=== PATIENT | male | born 1935 | race Caucasian/White ===

== ENCOUNTER → 2018-09-25 10:00 | Outpatient (CLI) | payer MEDICARE, SELFPAY ==
[2018-09-25 12:12] LABS: Absolute Lymphocyte Count 1.12 X10^3/ul (0.83-4.51); Absolute Neutrophil Count 2.9 X10^3/uL (2.0-7.7); Basophil# 0.03 X10^3/uL; Basophil% 0.6 % (0-1); Eosinophil# 0.24 X10^3/uL; Eosinophils% 4.9 % (0-5); Hematocrit 43.2 % (40-54); Hemoglobin 13.3 g/dl (13.0-16.5); Lymphocyte # 1.12 X10^3/ul (4.0); Lymphocyte % 22.7 % (19-41); Mean Corp Hgb Conc 30.8 g/gl (32-36); Mean Corpuscular Hgb 28.4 pg (27.0-32.0); Mean Corpuscular Volume 92.3 fL (80-94); Mean Platelet Vol. 10.3 fl (6.2-12.0); Monocyte# 0.65 X10^3/uL; Monocyte% 13.2 % (0-10); Neutrophil # 2.87 X10^3/uL (2.7-7.7); Neutrophil % 58.2 % (47-70); Platelet Count 171 K/mm3 (150-450); RBC Distribution Width SD 46.5 fl (35.1-43.9); Red Blood Count 4.68 M/mm3 (4.6-6.2); White Blood Count 4.9 K/mm3 (4.4-11.0)
[2018-09-25 12:18] LABS: ALB/GLOB Ratio 1.1 RATIO (0.9-2.4); AST(SGOT) 29 U/L (15-37); Alanine Aminotransfer ALT/SGPT 38 U/L (16-61); Albumin, Serum 3.9 g/dL (3.2-5.0); Alkaline Phosphatase 53 U/L (45-117); Anion Gap 7 (5-15); BUN 28 mg/dL (7-18); BUN/Creat Ratio 21.1 RATIO (10-20); Calcium,Total 9.4 mg/dL (8.5-10.1); Chloride 106 mmol/L (98-107); Creatinine, Serum 1.33 mg/dL (0.70-1.30); EST Glomerular Filtration Rate 55 mL/min (>60); Est Glom Filt Rate - Afr Amer 66 mL/min (>60); Globulin 3.5 g/dL (2.2-4.2); Glucose 95 mg/dL (74-106); Potassium 4.7 mmol/L (3.5-5.1); Protein, Total 7.4 g/dL (6.4-8.2); Sodium Level 142 mmol/L (136-145)
[2018-09-25 12:27] LABS: POSITIVE COUNT NO; POSITIVE DIFFERENTIAL NO; POSITIVE MORPHOLOGY NO
--- OUTSIDE RECORDS SUMMARY | 2018-11-27 20:02 | XMS RPT_ITS ---
:1935 Author Organization OHIP Support Name Relationship Address Phone TITI DUPREEE Unavailable [address] + [place] [address] SELF Unavailable Unavailable Unavailable JOONHEYDI Unavailable [address] + [place] [address] JOONHEYDI Unavailable [address] + [address]HEY[address] Unavailable [address] + [place] [address] HEYDI DUPREE Unavailable [address] + [place], [place] [id number] [place] [address]PAULOHEYDI Unavailable [address] + [place] [address] JOONLYUDMILAHEYDI Unavailable [address] + [place] [address] JOONLYUDMILAHEYDI Unavailable [address] + [place] [address] LYUDMILA DUPREERIE Unavailable [address] + [place] [address] JOONYLUDMILAHEYDI Unavailable [address] + [place] [address] JOONLYUDMILAHEYDI Unavailable [address] + [place] [address] JOONLYUDMILA BLEDSOERIE Unavailable [address] + [place] [id number] JOONLYUDMILAHEYDI Unavailable [address] + [place] [address] JOONLYUDMILAHEYDI Unavailable [address] + [address], HEYDI Unavailable [address] + [place] [address] [facility], HEYDI Unavailable [address] + [place] [address] [facility], HEYDI Unavailable [address] + [place] [address] [facility], HEYDI Unavailable [address] + [place], [place] [id number] [place] [address], HEYDI Unavailable [address] + [place], [place] [phone] [place] [address], HEYDI Unavailable [address] + [place], [place] [id number] [place] [address], HEYDI Unavailable [address] + [place], [place] [phone] [place] [address] HEYDI Unavailable [address] + [place], [place] [phone] [place] [address], HEYDI Unavailable [address] + [place], [place] [phone] [place] [address], HEYDI Unavailable [address] + [place], [place] [phone] [place] [address], HEYDI Unavailable [address] + [place] [address] [facility] HEYDI Unavailable [address] + [place], [place] [id number] [place] [address], HEYDI Unavailable [address] + [place], [place] [id number] [place] [address], HEYDI Unavailable [address] + [place], [place] [id number] [place] [address], HEYDI Unavailable [address] + [place], [place] [phone] [place] [address], HEYDI Unavailable [address] + [place], [place] [phone] [place] [address], HEYDI Unavailable [address] + [place] [address] HEYDI DUPREE Unavailable [address] + [place] [address] HEYDI DUPREE Unavailable [address] + [place] [address] Care Team Providers Name Role Phone DAVONTE DELANEY, DR. IRVING Attending Unavailable LONNIE KAUR, DR. PEREZ Primary Care Unavailable LONNIE KAUR, DR. PEREZ Attending Unavailable LONNIE KAUR, DR. PEREZ Primary Care Unavailable MONTANA DELANEY, DR. MK Aguilar Attending Unavailable LONNIE KAUR, DR. PEREZ Primary Care Unavailable LONNIE KAUR, DR. PEREZ Primary Care Unavailable JOHANNA DELANEY, . PALLAVI Aguilar Consulting Unavailable JOHANNA DELANEY, . PALLAVI Aguilar Admitting Unavailable JOHANNA DELANEY, MD. PALLAVI Aguilar Attending Unavailable DAVONTE DELANEY, DR. IRVING Attending Unavailable LONNIE KAUR, DR. PEREZ Primary Care Unavailable LONNIE KAUR, DR. PEREZ Attending Unavailable LONNIE KAUR, DR. PEREZ Primary Care Unavailable MARIYA ALVAREZ MD Attending Unavailable LONNIE KAUR, DR. PEREZ Primary Care Unavailable ERIC MOORE DO Attending Unavailable LONNIE KAUR, DR. PEREZ Primary Care Unavailable LONNIE KAUR, DR. PEREZ Attending Unavailable LONNIE KAUR, DR. PEREZ Primary Care Unavailable MARIYA ALVAREZ MD Attending Unavailable LONNIE KAUR, DR. PEREZ Primary Care Unavailable LONNIE KAUR, DR. PEREZ Attending Unavailable LONNIE KAUR, DR. PEREZ Primary Care Unavailable LONNIE KAUR, DR. PEREZ Attending Unavailable LONNIE KAUR, DR. PEREZ Primary Care Unavailable TONI BRUCE MD Attending Unavailable LONNIE KAUR, DR. PEREZ Primary Care Unavailable DAVONTE DELANEY, DR. IRVING Attending Unavailable LONNIE KAUR, DR. PEREZ Primary Care Unavailable CHARMAINE LO CNP Attending Unavailable LONNIE KAUR, DR. PEREZ Primary Care Unavailable CHARMAINE LO CNP Attending Unavailable LONNIE KAUR, DR. PEREZ Primary Care Unavailable Isabella Justice Attending Unavailable Isabella Justice Referring Unavailable Jaki Lin Primary Care Unavailable PROBLEMS PROBLEMS No Problem Records FoundPROCEDURES PROCEDURES No Procedure Records FoundRESULTS RESULTS COMPREHENSIVE METABOLIC Collected: 09/25/2018 Status: F Source: [facility] 10:08 AM REPOSITORY TYPE CODE TESTS RESULT OUT OF RANGE REFERENCE UNITS LAB L501.0100 74-106 mg/dL Normal GLU 95 Result Comment: Please note revised GLUCOSE reference range effective 2017. LAB L501.1000 7-18 mg/dL High BUN 28 LAB L501.1100 0.70-1.30 mg/dL High CREAT,SERUM 1.33 Result Comment: The validity of the calculated GFR AND GFRAA in patients over 70 years has not been determined. Clinical correlation is essential. LAB L501.1110 >60 mL/min Low EST GFR 55 Result Comment: Non- GFR Calc LAB L501.1115 >60 mL/min Normal EST GFR - AA 66 Result Comment: GFR Calc LAB L501.1300 10-20 RATIO High BUN/CRE 21.1 LAB L501.1500 6.4-8.2 g/dL T Normal PROT 7.4 LAB L501.1800 3.2-5.0 g/dL Normal ALB 3.9 LAB L501.1950 2.2-4.2 g/dL Normal GLOB 3.5 LAB L501.2000 0.9-2.4 RATIO Normal A/G 1.1 LAB L501.2200 8.5-10.1 mg/dL CA Normal 9.4 LAB L501.4100 15-37 U/L Normal AST 29 LAB L501.4305 45-117 U/L Normal ALK P 53 LAB L501.4405 16-61 U/L Normal ALT 38 LAB L501.4600 0.20-1.00 mg/dL T Normal BILI 0.30 LAB L501.5300 136-145 mmol/L NA Normal 142 LAB L501.5600 3.5-5.1 mmol/L K Normal 4.7 LAB L501.5900 98-107 mmol/L CL Normal 106 LAB L501.6100 21.0-32.0 mmol/L Normal CO2 29.0 LAB L501.6200 5-15 Normal GAP 7 Performed By: #### L500.4050 #### [facility] [address] [place], [address] CBC W/DIFF, AUTOMATED Collected: 09/25/2018 Status: F Source: [facility] 10:08 AM REPOSITORY TYPE CODE TESTS RESULT OUT OF RANGE REFERENCE UNITS LAB L100.1000 4.4-11.0 K/mm3 Normal WBC 4.9 LAB L100.1200 4.6-6.2 M/mm3 Normal RBC 4.68 LAB L100.1300 13.0-16.5 g/dl Normal HGB 13.3 LAB L100.1400 40-54 % Normal HCT 43.2 LAB L100.1500 80-94 fL Normal MCV 92.3 LAB L100.1600 27.0-32.0 pg Normal MCH 28.4 LAB L100.1700 32-36 g/gl Low MCHC 30.8 LAB L100.1810 11.6-14.6 % Normal RDW CV 14.0 LAB L100.1820 35.1-43.9 fl High RDW SD 46.5 LAB L100.1900 150-450 K/mm3 Normal PLT 171 LAB L100.2000 6.2-12.0 fl Normal MPV 10.3 LAB L100.2100 47-70 % Normal NEUT% 58.2 LAB L100.2200 19-41 % Normal LY% 22.7 LAB L100.2300 0-10 % High MONO% 13.2 LAB L100.2400 0-5 % Normal EO% 4.9 LAB L100.2500 0-1 % Normal BASO% 0.6 LAB L100.2550 0.0-0.9 % Normal IM GRAN % 0.400 Result Comment: IG% - Immature Granulocytes (promyelocytes, myelocytes and metamyelocytes) > 1% indicates that a LEFT SHIFT is Present. LAB L100.2620 2.0-7.7 X10 3/uL Normal Absolute Neut 2.9 LAB L100.2720 0.83-4.51 X10 3/ul Normal Absolute Lymph 1.12 Performed By: #### L100.0100 #### [facility] [address] [place] [address], [address] NM MYOCARDIAL SPECT Observed: 08/22/2018 Status: F Source: [facility] STRESS/REST 8:00 AM [facility] REPOSITORY ORIGINAL NM MYOCARDIAL SPECT STRESS/REST CLINICAL STATEMENT: S/P CABG TECHNIQUE: Lexiscan dose:0.4 mg Radiopharmaceutical (stress): Tc-99m Sestamibi Dose:10.6 mCi Radiopharmaceutical (rest): Tc-99m Sestamibi Dose:32.9 mCi SPECT acquisition and processing Reconstruction and reorientation of SPECT images into short axis, vertical and horizontal long axis planes Quantitative LVEF assessment COMPARISON:12/04/2015 REPORT:LEFT ventricle appears normal in size on both stress and rest images. On the stress images there is reduced radiotracer uptake involving the basal to mid inferior and inferolateral region similar to resting images with normal wall motion, suggestive of diaphragmatic atten uation artifact. Rest of the myocardium has homogenous radiotracer uptake throughout on both stress and rest images. Gated SPECT imaging reveal abnormal septal motion, consistent with prior cardiac surgery. Normal LEFT ventricle systolic function, calculated LVEF 59%. LEFT ventricle end-diastolic volume 112 mL. Tid ratio 1.03. IMPRESSION: 1. No evidence of inducible ischemia or prior myocardial infarction. 2. Abnormal septal motion with normal LEFT ventricle systolic function, LVEF 59%. 3. Inferior diaphragmatic attenuation artifact noted. 4. As compared to the last study report of 12/04/2015, no significant changes were noted. Interpreted By: Travis Mata Preliminary Report By: Travis Mata Electronically Signed By: Travis Mata Dictated Date: 08/22/2018 1:44:09 PM Prelim Date: 08/22/2018 1:44:09 PM Sign Date: 08/22/2018 1:46:38 PM CMP Collected: 08/04/2018 Status: F Source: [facility] 12:41 PM [facility] REPOSITORY TYPE CODE TESTS RESULT OUT OF REFERENCE UNITS RANGE LAB GLU(LOINC) 83-110 mg/dL Low Glucose Level 68 LAB NA(LOINC) 136-145 mmol/L Sodium Level 140 LAB K(LOINC) 3.5-5.1 mmol/L Potassium Level 4.4 LAB CL(LOINC) 98-107 mmol/L Chloride 105 LAB CO2(LOINC) 23-31 mmol/L CO2 31 LAB EBAL(LOINC mEq/L ) Electrolyte Balance 4.0 LAB BUN(LOINC) 7-18 mg/dL BUN High 26 LAB CRE(LOINC) 0.70-1.30 mg/dL Creatinine Lvl (s) 1.28 LAB BC(LOINC) 7-27 ratio BUN/Creatinine 20 Ratio LAB CA(LOINC) 8.4-10.2 mg/dL Calcium Lvl 8.9 LAB PROT(LOINC 6.4-8.2 G/dL ) Total Protein 7.1 LAB ALB(LOINC) 3.4-4.8 G/dL Albumin Level 3.9 LAB GLB(LOINC) G/dL Globulin 3.2 LAB AG(LOINC) 1.1-2.5 ratio A/G Ratio 1.2 LAB BILT(LOINC 0.2-1.0 mg/dL ) Bili Total 0.2 LAB AP(LOINC) 40-135 U/L Alk Phos 49 LAB AST(LOINC) 10-40 U/L AST/SGOT 29 LAB ALT(LOINC) 10-35 U/L ALT/SGPT 33 Performed By: #### CMP, GFR #### [address] [address] #### CBC, ADIFF, ANEU #### [address] [address] .GFR Collected: 08/04/2018 Status: F Source: [facility] 12:41 PM [facility] REPOSITORY TYPE CODE TESTS RESULT OUT OF REFERENCE UNITS RANGE LAB GFRAA(LOINC ml/min/1.73 ) sqm GFR 65 [place] Result Comment: GFR Population mean for , Non- Americans Ages 20-29 = 116 mL/min/1.73 sq.m. Ages 30-39 = 107 mL/min/1.73 sq.m. Ages 40-49 = 99 mL/min/1.73 sq.m. Ages 50-59 = 93 mL/min/1.73 sq.m. Ages 60-69 = 85 mL/min/1.73 sq.m. Ages 70+ = 75 mL/min/1.73 sq.m. Chronic Kidney Disease: Less than 60 mL/min/1.73 square meters End Stage Renal Disease: Less than 15 mL/min/1.73 square meters LAB GFRNO(LOINC) ml/min/1.73sqm GFR Non- 54 Result Comment: GFR Population mean for , Non- Americans Ages 20-29 = 116 mL/min/1.73 sq.m. Ages 30-39 = 107 mL/min/1.73 sq.m. Ages 40-49 = 99 mL/min/1.73 sq.m. Ages 50-59 = 93 mL/min/1.73 sq.m. Ages 60-69 = 85 mL/min/1.73 sq.m. Ages 70+ = 75 mL/min/1.73 sq.m. Chronic Kidney Disease: Less than 60 mL/min/1.73 square meters End Stage Renal Disease: Less than 15 mL/min/1.73 square meters Performed By: #### CMP, GFR #### [place] [id number] #### CBC, ADIFF, ANEU #### [address] [address] CBC Collected: 08/04/2018 Status: F Source: [facility] 12:41 PM [facility] REPOSITORY TYPE CODE TESTS RESULT OUT OF REFERENCE UNITS RANGE LAB WBC(LOINC) 4.60-10.80 10 3/mcL WBC 5.20 LAB RBCCT(LOINC 4.04-6.13 10 6/mcL ) RBC 4.68 LAB HGB(LOINC) 14.0-18.0 G/dL Low Hgb 13.8 LAB HCT(LOINC) 42.0-52.0 % Low Hct 41.8 LAB MCV(LOINC) 80.0-94.0 fL MCV 89.2 LAB MCH(LOINC) 27.0-31.2 pg MCH 29.5 LAB MCHC(LOINC) 31.8-35.4 G/dL MCHC 33.1 LAB RDW(LOINC) 11.5-14.5 % RDW 14.2 LAB PLT(LOINC) 130-400 10 3/mcL Platelet 178 LAB MPV(LOINC) 7.4-10.4 fL MPV 8.2 Performed By: #### CMP, GFR #### [place] [address] #### CBC, ADIFF, ANEU #### [address] [address] .AUTO DIFF Collected: 08/04/2018 Status: F Source: [facility] 12:41 [facility] [place] REPOSITORY TYPE CODE TESTS RESULT OUT OF REFERENCE UNITS RANGE LAB MLILY(LOINC) 37.0-80.0 % Neutrophil % 59.6 LAB LYM(LOINC) 10.0-50.0 % Lymphocyte % 21.5 LAB MON(LOINC) 1.7-13.0 % Monocyte % 11.8 LAB EO(LOINC) 0.0-7.0 % Eosinophil % 5.9 LAB BAS(LOINC) 0.0-2.5 % Basophil % 1.2 LAB ABLYM(LOIN 0.77-3.85 10 3/mcL C) Lymphocyte, 1.10 Absolute LAB RAINE(LOINC 0.15-1.00 10 3/mcL ) Monocyte, 0.60 Absolute LAB AEOS(LOINC 0.00-0.40 10 3/mcL ) Eosinophil, 0.30 Absolute LAB ABAS(LOINC 0.00-0.19 10 3/mcL ) Basophil, 0.10 Absolute Performed By: #### CMP, GFR #### [place] [address] #### CBC, ADIFF, ANEU #### [address] [address] .NEUABS Collected: 08/04/2018 Status: F Source: [facility] 12:41 PM [facility] REPOSITORY TYPE CODE TESTS RESULT OUT OF REFERENCE UNITS RANGE LAB ANEU(LOINC) 2.85-6.16 10 3/mcL Neutrophil, 3.10 Absolute Performed By: #### CMP, GFR #### [place] [address] #### CBC, ADIFF, ANEU #### [address] [address] CBC Collected: 07/20/2018 Status: F Source: [facility] 1:15 PM [facility] REPOSITORY TYPE CODE TESTS RESULT OUT OF REFERENCE UNITS RANGE LAB WBC(LOINC) 4.60-10.80 10 3/mcL WBC 5.20 LAB RBCCT(LOINC 4.04-6.13 10 6/mcL ) RBC 4.77 LAB HGB(LOINC) 14.0-18.0 G/dL Low Hgb 13.7 LAB HCT(LOINC) 42.0-52.0 % Hct 42.6 LAB MCV(LOINC) 80.0-94.0 fL MCV 89.3 LAB MCH(LOINC) 27.0-31.2 pg MCH 28.8 LAB MCHC(LOINC) 31.8-35.4 G/dL MCHC 32.2 LAB RDW(LOINC) 11.5-14.5 % RDW 14.5 LAB PLT(LOINC) 130-400 10 3/mcL Platelet 147 LAB MPV(LOINC) 7.4-10.4 fL MPV 8.3 Performed By: #### CBC, ADIFF, ANEU #### [address] [address] #### FE, LD, LIPID, CMP, IBC, GFR, A1C, B12, FERR, FOL #### [address] [address] .AUTO DIFF Collected: 07/20/2018 Status: F Source: [facility] 1:15 PM [facility] REPOSITORY TYPE CODE TESTS RESULT OUT OF REFERENCE UNITS RANGE LAB MILLY(LOINC) 37.0-80.0 % Neutrophil % 61.1 LAB LYM(LOINC) 10.0-50.0 % Lymphocyte % 20.1 LAB MON(LOINC) 1.7-13.0 % Monocyte % 12.2 LAB EO(LOINC) 0.0-7.0 % Eosinophil % 5.7 LAB BAS(LOINC) 0.0-2.5 % Basophil % 0.9 LAB ABLYM(LOIN 0.77-3.85 10 3/mcL C) Lymphocyte, 1.00 Absolute LAB RAINE(LOINC 0.15-1.00 10 3/mcL ) Monocyte, 0.60 Absolute LAB AEOS(LOINC 0.00-0.40 10 3/mcL ) Eosinophil, 0.30 Absolute LAB ABAS(LOINC 0.00-0.19 10 3/mcL ) Basophil, 0.00 Absolute Performed By: #### CBC, ADIFF, ANEU #### [address] [address] #### FE, LD, LIPID, CMP, IBC, GFR, A1C, B12, FERR, FOL #### [address] [address] .NEUABS Collected: 07/20/2018 Status: F Source: [facility] 1:15 PM [facility] REPOSITORY TYPE CODE TESTS RESULT OUT OF REFERENCE UNITS RANGE LAB ANEU(LOINC) 2.85-6.16 10 3/mcL Neutrophil, 3.20 Absolute Performed By: #### CBC, ADIFF, ANEU #### [address] [address] #### FE, LD, LIPID, CMP, IBC, GFR, A1C, B12, FERR, FOL #### [address] [address] FE Collected: 07/20/2018 Status: F Source: [facility] 1:15 PM [facility] REPOSITORY TYPE CODE TESTS RESULT OUT OF RANGE REFERENCE UNITS LAB FE(LOINC) 65-175 mcg/dL Iron 74 Performed By: #### CBC, ADIFF, ANEU #### [address] [address] #### FE, LD, LIPID, CMP, IBC, GFR, A1C, B12, FERR, FOL #### [address] [address] LDH Collected: 07/20/2018 Status: F Source: [facility] 1:15 PM [facility] REPOSITORY TYPE CODE TESTS RESULT OUT OF RANGE REFERENCE UNITS LAB LD(LOINC) 85-227 U/L LDH 225 Performed By: #### CBC, ADIFF, ANEU #### [address] [address] #### FE, LD, LIPID, CMP, IBC, GFR, A1C, B12, FERR, FOL #### [address] [address] LIPID Collected: 07/20/2018 Status: F Source: [facility] 1:15 PM [facility] REPOSITORY TYPE CODE TESTS RESULT OUT OF REFERENCE UNITS RANGE LAB CHOL(LOINC 0-200 mg/dL ) Cholesterol High 222 Result Comment: Cholesterol Reference Interval: Less than 200 Desirable 200-239 Borderline high risk 240 and above High risk LAB TRIG(LOINC) 0-150 mg/dL Triglycerides 134 Result Comment: Triglyceride Reference Interval: Less than 150 Normal 150-199 Borderline high risk 200-499 High risk 500 or higher Very high risk LAB HD(LOINC) 40-60 mg/dL HDL Low Cholesterol 39 LAB LDL(LOINC) 0-130 mg/dL LDL High Cholesterol 156 Performed By: #### CBC, ADIFF, ANEU #### [address] [address] #### FE, LD, LIPID, CMP, IBC, GFR, A1C, B12, FERR, FOL #### [address] [address] CMP Collected: 07/20/2018 Status: F Source: [facility] 1:15 PM [facility] REPOSITORY TYPE CODE TESTS RESULT OUT OF REFERENCE UNITS RANGE LAB GLU(LOINC) 83-110 mg/dL Glucose Level 110 LAB NA(LOINC) 136-145 mmol/L Sodium Level 138 LAB K(LOINC) 3.5-5.1 mmol/L Potassium Level 4.6 LAB CL(LOINC) 98-107 mmol/L Chloride 102 LAB CO2(LOINC) 23-31 mmol/L CO2 30 LAB EBAL(LOINC mEq/L ) Electrolyte Balance 6.0 LAB BUN(LOINC) 7-18 mg/dL BUN High 26 LAB CRE(LOINC) 0.70-1.30 mg/dL Creatinine Lvl (s) 1.15 LAB BC(LOINC) 7-27 ratio BUN/Creatinine 23 Ratio LAB CA(LOINC) 8.4-10.2 mg/dL Calcium Lvl 9.1 LAB PROT(LOINC 6.4-8.2 G/dL ) Total Protein 7.1 LAB ALB(LOINC) 3.4-4.8 G/dL Albumin Level 4.1 LAB GLB(LOINC) G/dL Globulin 3.0 LAB AG(LOINC) 1.1-2.5 ratio A/G Ratio 1.4 LAB BILT(LOINC 0.2-1.0 mg/dL ) Bili Total 0.4 LAB AP(LOINC) 40-135 U/L Alk Phos 48 LAB AST(LOINC) 10-40 U/L AST/SGOT 24 LAB ALT(LOINC) 10-35 U/L ALT/SGPT 31 Performed By: #### CBC, ADIFF, ANEU #### [address] [address] #### FE, LD, LIPID, CMP, IBC, GFR, A1C, B12, FERR, FOL #### [address] [address] IBC Collected: 07/20/2018 Status: F Source: [facility] 1:15 PM [facility] REPOSITORY TYPE CODE TESTS RESULT OUT OF RANGE REFERENCE UNITS LAB IBC(LOINC) 250-450 mcg/dL TIBC 317 Performed By: #### ZAID, EZRA, ANEU #### [place] [address] [place], [place] [address] #### FE, LD, LIPID, CMP, IBC, GFR, A1C, B12, FERR, FOL #### [place] [address] .GFR Collected: 07/20/2018 Status: F Source: [facility] 1:15 PM [facility] REPOSITORY TYPE CODE TESTS RESULT OUT OF REFERENCE UNITS RANGE LAB GFRAA(LOINC ml/min/1.73 ) sqm GFR 74 [place] Result Comment: GFR Population mean for , Non- Americans Ages 20-29 = 116 mL/min/1.73 sq.m. Ages 30-39 = 107 mL/min/1.73 sq.m. Ages 40-49 = 99 mL/min/1.73 sq.m. Ages 50-59 = 93 mL/min/1.73 sq.m. Ages 60-69 = 85 mL/min/1.73 sq.m. Ages 70+ = 75 mL/min/1.73 sq.m. Chronic Kidney Disease: Less than 60 mL/min/1.73 square meters End Stage Renal Disease: Less than 15 mL/min/1.73 square meters LAB GFRNO(LOINC) ml/min/1.73sqm GFR Non- 61 Result Comment: GFR Population mean for , Non- Americans Ages 20-29 = 116 mL/min/1.73 sq.m. Ages 30-39 = 107 mL/min/1.73 sq.m. Ages 40-49 = 99 mL/min/1.73 sq.m. Ages 50-59 = 93 mL/min/1.73 sq.m. Ages 60-69 = 85 mL/min/1.73 sq.m. Ages 70+ = 75 mL/min/1.73 sq.m. Chronic Kidney Disease: Less than 60 mL/min/1.73 square meters End Stage Renal Disease: Less than 15 mL/min/1.73 square meters Performed By: #### CBC, ADIFF, ANEU #### [place] [address] [place], [place] [address] #### FE, LD, LIPID, CMP, IBC, GFR, A1C, B12, FERR, FOL #### [place] [id number] A1C Collected: 07/20/2018 Status: F Source: [facility] 1:15 [facility] [place] REPOSITORY TYPE CODE TESTS RESULT OUT OF RANGE REFERENCE UNITS LAB A1C(LOINC) 4.5-6.2 % High Hgb A1c 6.9 Performed By: #### CBC, ADIFF, ANEU #### [address] [address] #### FE, LD, LIPID, CMP, IBC, GFR, A1C, B12, FERR, FOL #### [place] [id number] B12 Collected: 07/20/2018 Status: F Source: [facility] 1:15 [facility] [place] REPOSITORY TYPE CODE TESTS RESULT OUT OF REFERENCE UNITS RANGE LAB B12(LOINC) 211-911 pg/mL Vitamin B12 527 Lvl Performed By: #### CBC, ADIFF, ANEU #### [address] [address] #### FE, LD, LIPID, CMP, IBC, GFR, A1C, B12, FERR, FOL #### [place] [id number] FERR Collected: 07/20/2018 Status: F Source: [facility] 1:15 [facility] [place] REPOSITORY TYPE CODE TESTS RESULT OUT OF REFERENCE UNITS RANGE LAB FERR(LOINC) 26-388 ng/mL Ferritin 72 Performed By: #### CBC, ADIFF, ANEU #### [address] [address] #### FE, LD, LIPID, CMP, IBC, GFR, A1C, B12, FERR, FOL #### [place] [id number] FOL Collected: 07/20/2018 Status: F Source: [facility] 1:15 [facility] [place] REPOSITORY TYPE CODE TESTS RESULT OUT OF REFERENCE UNITS RANGE LAB FOL(LOINC) 1.1-20.0 ng/mL Folate 18.6 Performed By: #### CBC, ADIFF, ANEU #### [address] [place], [place] [address] #### FE, LD, LIPID, CMP, IBC, GFR, A1C, B12, FERR, FOL #### [facility] [address] [place] [address] XR FOOT MINIMUM 3 Observed: 06/29/2018 Status: F Source: [facility] VIEWS LEFT 12:51 PM [facility] REPOSITORY ORIGINAL XR FOOT MINIMUM 3 VIEWS LEFT CLINICAL STATEMENT: pain. COMPARISON: None FINDINGS: No acute fracture or dislocation is identified. The joint spaces are maintained. There is no radiopaque foreign body. Calcaneal enthesophytes are present. A well-corticated osseous fragment se en adjacent to the medial aspect of the calcaneus, consistent with prior injury. IMPRESSION: No acute fracture or dislocation. Interpreted By: Cristina Jaeger MD Preliminary Report By: Cristina Jaeger MD Electronically Signed By: Cristina Jaeger MD Dictated Date: 06/29/2018 3:55:51 PM Prelim Date: 06/29/2018 3:55:51 PM Sign Date: 06/29/2018 3:57:11 PM XR ANKLE MINIMUM 3 Observed: 06/29/2018 Status: F Source: [facility] VIEWS LEFT 12:50 PM [facility] REPOSITORY ORIGINAL XR ANKLE MINIMUM 3 VIEWS LEFT CLINICAL STATEMENT: pain COMPARISON: None FINDINGS:The talar dome and ankle mortise are grossly intact. There are degenerative changes present. There is no fracture or dislocation. There is an enthesophyte at the Achilles tendon insertion. Mode rate degenerative changes in the proximal foot are partially demonstrated. There is calcification in the aorta. A surgical clip is noted adjacent to the distal tibial shaft IMPRESSION:No acute process Interpreted By: Desi Ogden MD Preliminary Report By: Desi Ogden MD Electronically Signed By: Desi Ogden MD Dictated Date: 06/29/2018 2:33:27 PM Prelim Date: 06/29/2018 2:33:27 PM Sign Date: 06/29/2018 2:33:59 PM BMP Collected: 06/29/2018 Status: F Source: [facility] 11:27 AM [facility] REPOSITORY TYPE CODE TESTS RESULT OUT OF REFERENCE UNITS RANGE LAB GLU(LOINC) 83-110 mg/dL Glucose Level 106 LAB NA(LOINC) 136-145 mmol/L Sodium Level 139 LAB K(LOINC) 3.5-5.1 mmol/L Potassium Level 4.7 LAB CL(LOINC) 98-107 mmol/L Chloride 102 LAB CO2(LOINC) 23-31 mmol/L CO2 29 LAB EBAL(LOINC mEq/L ) Electrolyte Balance 8.0 LAB BUN(LOINC) 7-18 mg/dL BUN High 33 LAB CRE(LOINC) 0.70-1.30 mg/dL Creatinine High Lvl (s) 1.48 LAB BC(LOINC) 7-27 ratio BUN/Creatinine 22 Ratio LAB CA(LOINC) 8.4-10.2 mg/dL Calcium Lvl 9.3 Performed By: #### BMP, GFR, PSA #### [place] [id number] .GFR Collected: 06/29/2018 Status: F Source: [facility] 11:27 AM [facility] REPOSITORY TYPE CODE TESTS RESULT OUT OF REFERENCE UNITS RANGE LAB GFRAA(LOINC ml/min/1.73 ) sqm GFR 55 [place] Result Comment: GFR Population mean for , Non- Americans Ages 20-29 = 116 mL/min/1.73 sq.m. Ages 30-39 = 107 mL/min/1.73 sq.m. Ages 40-49 = 99 mL/min/1.73 sq.m. Ages 50-59 = 93 mL/min/1.73 sq.m. Ages 60-69 = 85 mL/min/1.73 sq.m. Ages 70+ = 75 mL/min/1.73 sq.m. Chronic Kidney Disease: Less than 60 mL/min/1.73 square meters End Stage Renal Disease: Less than 15 mL/min/1.73 square meters LAB GFRNO(LOINC) ml/min/1.73sqm GFR Non- 46 Result Comment: GFR Population mean for , Non- Americans Ages 20-29 = 116 mL/min/1.73 sq.m. Ages 30-39 = 107 mL/min/1.73 sq.m. Ages 40-49 = 99 mL/min/1.73 sq.m. Ages 50-59 = 93 mL/min/1.73 sq.m. Ages 60-69 = 85 mL/min/1.73 sq.m. Ages 70+ = 75 mL/min/1.73 sq.m. Chronic Kidney Disease: Less than 60 mL/min/1.73 square meters End Stage Renal Disease: Less than 15 mL/min/1.73 square meters Performed By: #### HEBER, GFR, PSA #### [facility] [address] [place] [address] [id number] PSA Collected: 06/29/2018 Status: F Source: [facility] 11:27 AM [facility] REPOSITORY TYPE CODE TESTS RESULT OUT OF REFERENCE UNITS RANGE LAB PSA(LOINC) 0.00-4.00 ng/mL High Prostate 4.51 Specific Antigen Performed By: #### HEBER, GFR, PSA #### [facility] [address] [place] [id number] [place] RENAL Observed: 05/22/2018 Status: F Source: [facility] 9:15 AM [facility] REPOSITORY ORIGINAL Ultrasound retroperitoneum Complete: Attention Urinary tract Clinical Statement: mild renal insufficiency, Comparison: CT 09/18/2017 The right and left kidneys measure 12.9 cm. and 11.6 cm. in length, respectively and are normal in cortical thickness and echogenicity. No pelvicaliectasis, cystic or solid mass or other significant foc al abnormality is seen. There is a small echogenic focus in the lower calyx of the LEFT kidney corresponding to calculi seen previously.. There is no free fluid seen in the abdomen. Urinary bladder is normal. The prostate is enlarged 4.8 x 4.2 x 4.8 cm.. Impression: Small nonobstructing LEFT renal calculus also seen previously. Otherwise Normal examination of the kidneys. Enlarged prostate. Interpreted By: Sandor Guy MD Preliminary Report By: Sandor Guy MD Electronically Signed By: Sandor Guy MD Dictated Date: 05/22/2018 2:07:21 PM Prelim Date: 05/22/2018 2:07:21 PM Sign Date: 05/22/2018 2:09:15 PM CBC Collected: 02/10/2018 Status: F Source: [facility] 9:46 AM [facility] REPOSITORY TYPE CODE TESTS RESULT OUT OF REFERENCE UNITS RANGE LAB WBC(LOINC) 4.60-10.80 10 3/mcL Low WBC 4.20 LAB RBCCT(LOINC 4.04-6.13 10 6/mcL ) RBC 4.52 LAB HGB(LOINC) 14.0-18.0 G/dL Low Hgb 13.4 LAB HCT(LOINC) 42.0-52.0 % Low Hct 39.9 LAB MCV(LOINC) 80.0-94.0 fL MCV 88.2 LAB MCH(LOINC) 27.0-31.2 pg MCH 29.7 LAB MCHC(LOINC) 31.8-35.4 G/dL MCHC 33.6 LAB RDW(LOINC) 11.5-14.5 % High RDW 14.7 LAB PLT(LOINC) 130-400 10 3/mcL Platelet 167 LAB MPV(LOINC) 7.4-10.4 fL MPV 8.3 Performed By: #### CBC, ADIFF, ANEU, LIPID, CMP, GFR, A1C #### [address] [address] #### VIDH #### [address] [address] .AUTO DIFF Collected: 02/10/2018 Status: F Source: [facility] 9:46 AM [facility] REPOSIT[facility] TYPE CODE TESTS RESULT OUT OF REFERENCE UNITS RANGE LAB MILLY(LOINC) 37.0-80.0 % Neutrophil % 60.5 LAB LYM(LOINC) 10.0-50.0 % Lymphocyte % 19.9 LAB MON(LOINC) 1.7-13.0 % Monocyte High % 14.5 LAB EO(LOINC) 0.0-7.0 % Eosinophil % 4.2 LAB BAS(LOINC) 0.0-2.5 % Basophil % 0.9 LAB ABLYM(LOIN 0.77-3.85 10 3/mcL C) Lymphocyte, 0.80 Absolute LAB RAINE(LOINC 0.15-1.00 10 3/mcL ) Monocyte, 0.60 Absolute LAB AEOS(LOINC 0.00-0.40 10 3/mcL ) Eosinophil, 0.20 Absolute LAB ABAS(LOINC 0.00-0.19 10 3/mcL ) Basophil, 0.00 Absolute Performed By: #### CBC, ADIFF, ANEU, LIPID, CMP, GFR, A1C #### [address] [address] #### VIDH #### [address] [address] .NEUABS Collected: 02/10/2018 Status: F Source: [facility] 9:46 AM [facility] REPOSITORY TYPE CODE TESTS RESULT OUT OF REFERENCE UNITS RANGE LAB ANEU(LOINC) 2.85-6.16 10 3/mcL Low Neutrophil, 2.60 Absolute Performed By: #### CBC, ADIFF, ANEU, LIPID, CMP, GFR, A1C #### [address] [place], [place] [address] #### VIDH #### [place] [address] LIPID Collected: 02/10/2018 Status: F Source: [facility] 9:46 AM [facility] REPOSITORY TYPE CODE TESTS RESULT OUT OF REFERENCE UNITS RANGE LAB CHOL(LOINC 131-200 mg/dL ) Cholesterol 184 Result Comment: Cholesterol Reference Interval: Less than 200 Desirable 200-239 Borderline high risk 240 and above High risk LAB TRIG(LOINC) 40-150 mg/dL Triglycerides 82 Result Comment: Triglyceride Reference Interval: Less than 150 Normal 150-199 Borderline high risk 200-499 High risk 500 or higher Very high risk LAB HD(LOINC) 35-90 mg/dL HDL Cholesterol 46 Result Comment: HDL Reference Interval: Less than 40 Low - high risk 60 or above Optimal/lowers risk LAB LDL(LOINC) 0-130 mg/dL LDL Cholesterol 122 Result Comment: LDL is a calculated result and requires a 12-hr fast. LDL Reference Interval: Less than 100 Optimal 100-129 Near or above optimal 130-159 Borderline high risk 160-189 High risk 190 and above Very high risk Performed By: #### CBC, ADIFF, ANEU, LIPID, CMP, GFR, A1C #### [address] [place], [place] [address] #### VIDH #### [place] [address] CMP Collected: 02/10/2018 Status: F Source: [facility] 9:46 AM [facility] REPOSITORY TYPE CODE TESTS RESULT OUT OF REFERENCE UNITS RANGE LAB GLU(LOINC) 83-110 mg/dL Glucose High Level 115 LAB NA(LOINC) 136-146 mEq/L Sodium Level 138 LAB K(LOINC) 3.5-5.1 mEq/L Potassium Level 4.5 LAB CL(LOINC) 98-107 mEq/L Chloride 104 LAB CO2(LOINC) 23-31 mEq/L CO2 29 LAB EBAL(LOINC mEq/L ) Electrolyte Balance 5.0 LAB BUN(LOINC) 7.0-18.0 mg/dL BUN High 28.0 LAB CRE(LOINC) 0.6-1.2 mg/dL Creatinine Lvl (s) 1.1 LAB BC(LOINC) 7-27 ratio BUN/Creatinine 25 Ratio LAB CA(LOINC) 8.4-10.2 mg/dL Calcium Lvl 9.7 LAB PROT(LOINC 6.0-8.3 G/dL ) Total Protein 6.9 LAB ALB(LOINC) 3.4-4.8 G/dL Albumin Level 4.2 LAB GLB(LOINC) G/dL Globulin 2.7 LAB AG(LOINC) 1.1-2.5 ratio A/G Ratio 1.6 LAB BILT(LOINC 0.2-1.0 mg/dL ) Bili Total 0.2 LAB AP(LOINC) 40-135 IU/L Alk Phos 50 LAB AST(LOINC) 10-40 IU/L AST/SGOT 34 LAB ALT(LOINC) 10-35 IU/L ALT/SGPT 24 Performed By: #### CBC, ADIFF, ANEU, LIPID, CMP, GFR, A1C #### [address] [address] #### VIDH #### [address] [address] .GFR Collected: 02/10/2018 Status: F Source: [facility] 9:46 AM [facility] REPOSITORY TYPE CODE TESTS RESULT OUT OF REFERENCE UNITS RANGE LAB GFRAA(LOINC ml/min/1.73 ) sqm GFR 76 [place] Result Comment: GFR Population mean for , Non- Americans Ages 20-29 = 116 mL/min/1.73 sq.m. Ages 30-39 = 107 mL/min/1.73 sq.m. Ages 40-49 = 99 mL/min/1.73 sq.m. Ages 50-59 = 93 mL/min/1.73 sq.m. Ages 60-69 = 85 mL/min/1.73 sq.m. Ages 70+ = 75 mL/min/1.73 sq.m. Chronic Kidney Disease: Less than 60 mL/min/1.73 square meters End Stage Renal Disease: Less than 15 mL/min/1.73 square meters LAB GFRNO(LOINC) ml/min/1.73sqm GFR Non- >60 Result Comment: GFR Population mean for , Non- Americans Ages 20-29 = 116 mL/min/1.73 sq.m. Ages 30-39 = 107 mL/min/1.73 sq.m. Ages 40-49 = 99 mL/min/1.73 sq.m. Ages 50-59 = 93 mL/min/1.73 sq.m. Ages 60-69 = 85 mL/min/1.73 sq.m. Ages 70+ = 75 mL/min/1.73 sq.m. Chronic Kidney Disease: Less than 60 mL/min/1.73 square meters End Stage Renal Disease: Less than 15 mL/min/1.73 square meters Performed By: #### CBC, ADIFF, ANEU, LIPID, CMP, GFR, A1C #### [address] [address] #### VIDH #### [address] [address] A1C Collected: 02/10/2018 Status: F Source: [facility] 9:46 AM [facility] REPOSITORY TYPE CODE TESTS RESULT OUT OF RANGE REFERENCE UNITS LAB A1C(LOINC) 4.8-5.9 % High Hgb A1c 6.5 Performed By: #### CBC, ADIFF, ANEU, LIPID, CMP, GFR, A1C #### [address] [address] #### VIDH #### [address] [address] VIDH Collected: 02/10/2018 Status: F Source: [facility] 9:46 AM [facility] REPOSITORY TYPE CODE TESTS RESULT OUT OF RANGE REFERENCE UNITS LAB VIDH(LOINC) ng/mL Vit. D 51 25-Hydroxy Result Comment: Interpretive Values Based on Total 25(OH)D: Severe Deficiency <20 ng/mL Mild to Moderate Deficiency 20-30 ng/mL Optimum Levels 30-100 ng/mL Toxicity Possible >100 ng/mL Performed By: #### CBC, ADIFF, ANEU, LIPID, CMP, GFR, A1C #### [address] [address] #### VIDH #### [address] [address] BMP Collected: 01/13/2018 Status: F Source: [facility] 5:03 AM [facility] REPOSITORY TYPE CODE TESTS RESULT OUT OF REFERENCE UNITS RANGE LAB GLU(LOINC) 83-110 mg/dL Glucose High Level 112 LAB NA(LOINC) 136-146 mEq/L Sodium Level 138 LAB K(LOINC) 3.5-5.1 mEq/L Potassium Level 4.7 LAB CL(LOINC) 98-107 mEq/L Chloride 105 LAB CO2(LOINC) 23-31 mEq/L CO2 29 LAB EBAL(LOINC mEq/L ) Electrolyte Balance 4.0 LAB BUN(LOINC) 7.0-18.0 mg/dL BUN High 49.4 LAB CRE(LOINC) 0.6-1.2 mg/dL Creatinine High Lvl (s) 1.9 LAB BC(LOINC) 7-27 ratio BUN/Creatinine 26 Ratio LAB CA(LOINC) 8.4-10.2 mg/dL Calcium Lvl 9.6 Performed By: #### BMP, GFR #### [address] [address] .GFR Collected: 01/13/2018 Status: F Source: [facility] 5:03 AM [facility] REPOSITORY TYPE CODE TESTS RESULT OUT OF REFERENCE UNITS RANGE LAB GFRAA(LOINC ml/min/1.73 ) sqm GFR 42 [place] Result Comment: GFR Population mean for , Non- Americans Ages 20-29 = 116 mL/min/1.73 sq.m. Ages 30-39 = 107 mL/min/1.73 sq.m. Ages 40-49 = 99 mL/min/1.73 sq.m. Ages 50-59 = 93 mL/min/1.73 sq.m. Ages 60-69 = 85 mL/min/1.73 sq.m. Ages 70+ = 75 mL/min/1.73 sq.m. Chronic Kidney Disease: Less than 60 mL/min/1.73 square meters End Stage Renal Disease: Less than 15 mL/min/1.73 square meters LAB GFRNO(LOINC) ml/min/1.73sqm GFR Non- 34 Result Comment: GFR Population mean for , Non- Americans Ages 20-29 = 116 mL/min/1.73 sq.m. Ages 30-39 = 107 mL/min/1.73 sq.m. Ages 40-49 = 99 mL/min/1.73 sq.m. Ages 50-59 = 93 mL/min/1.73 sq.m. Ages 60-69 = 85 mL/min/1.73 sq.m. Ages 70+ = 75 mL/min/1.73 sq.m. Chronic Kidney Disease: Less than 60 mL/min/1.73 square meters End Stage Renal Disease: Less than 15 mL/min/1.73 square meters Performed By: #### BMP, GFR #### [address] [place], [place] [address] XR CHEST 1 VIEW Observed: 01/12/2018 Status: F Source: [facility] 4:31 PM [facility] REPOSITORY ORIGINAL XR CHEST 1 VIEW CLINICAL STATEMENT: SOB. COMPARISON: 09/18/2017 chest x-ray FINDINGS: Lung volumes are mildly decreased. The heart is mildly enlarged, unchanged. The mediastinum is appropriate in size. There is no pleural effusion or vascular congestion. There is no pneumothora x. There is mild bibasilar airspace disease. Sternotomy wires are present. Degenerative changes of the spine and bilateral AC joints are present. IMPRESSION: Mild bibasilar airspace disease, likely reflecting segmental atelectasis. Mildly enlarged heart, unchanged. I have personally reviewed the images of this examination and agree with the resident's findings and interpretation. Interpreted By: Bertrand Yang MD Preliminary Report By: Lonnie Encinas DO Electronically Signed By: Bertrand Yang MD Dictated Date: 01/12/2018 4:33:26 PM Prelim Date: 01/12/2018 4:38:49 PM Sign Date: 01/12/2018 4:55:20 PM UA Collected: 01/12/2018 Status: F Source: [facility] 4:25 PM [facility] REPOSITORY TYPE CODE TESTS RESULT OUT OF RANGE REFERENCE UNITS LAB SPCUA(JANI NC) UA Specimen Type Clean Catch LAB CLRUA(JANI NC) UA Color YELLOW LAB APPUA(JANI NC) UA Appear CLEAR LAB SGUA(LOIN C) UA Spec Unknown Grav >=1.030 LAB GLUA(LOIN mg/dL C) UA Glucose NEGATIVE LAB BILUA(JANI NC) UA Bili NEGATIVE LAB KETUA(JANI mg/dL NC) UA Ketones NEGATIVE LAB BLDUA(JANI NC) UA Blood TRACE-INTACT LAB PHUA(LOIN C) UA pH 5.5 LAB PROUA(JANI mg/dL NC) UA Protein NEGATIVE LAB UROUA(JANI E.U./dL NC) UA Urobilinogen 0.2 LAB NITUA(JANI NC) UA Nitrite NEGATIVE LAB LEUUA(JANI NC) UA Leuk Est NEGATIVE Performed By: #### UA, UAMICAO #### [address] [address] .URINALYSIS MICROSCOPIC Collected: 01/12/2018 Status: F Source: [facility] 4:25 PM [facility] REPOSITORY TYPE CODE TESTS RESULT OUT OF REFERENCE UNITS RANGE LAB WBCUA(LOIN None Seen /hpf C) UA WBC None Seen LAB RBCUA(LOIN None Seen /hpf C) UA RBC None Seen LAB EPIUA(LOIN None Seen /hpf C) UA Squam Epithelial None Seen Performed By: #### UA, UAMICAO #### [address] [address] CRUR Collected: 01/12/2018 Status: F Source: [facility] 4:25 PM [facility] REPOSITORY TYPE CODE TESTS RESULT OUT OF REFERENCE UNITS RANGE LAB CRU(LOINC) 39.0-259.0 mg/dL U Creatinine 206.3 Performed By: #### OBDULIO, NAUR #### [address] [address] NAUR Collected: 01/12/2018 Status: F Source: [facility] 4:25 PM [facility] REPOSITORY TYPE CODE TESTS RESULT OUT OF REFERENCE UNITS RANGE LAB TRAVIS(LOINC) mEq/L U Sodium 79 Performed By: #### OBDULIO, NAUR #### [address] [address] CBC Collected: 01/12/2018 Status: F Source: [facility] 4:16 PM [facility] REPOSITORY TYPE CODE TESTS RESULT OUT OF REFERENCE UNITS RANGE LAB WBC(LOINC) 4.60-10.80 10 3/mcL WBC 5.90 LAB RBCCT(LOINC 4.04-6.13 10 6/mcL ) RBC 4.65 LAB HGB(LOINC) 14.0-18.0 G/dL Low Hgb 13.7 LAB HCT(LOINC) 42.0-52.0 % Low Hct 40.6 LAB MCV(LOINC) 80.0-94.0 fL MCV 87.2 LAB MCH(LOINC) 27.0-31.2 pg MCH 29.4 LAB MCHC(LOINC) 31.8-35.4 G/dL MCHC 33.7 LAB RDW(LOINC) 11.5-14.5 % High RDW 14.6 LAB PLT(LOINC) 130-400 10 3/mcL Platelet 173 LAB MPV(LOINC) 7.4-10.4 fL MPV 7.7 Performed By: #### CBC, ADIFF, ANEU, GFR, BMP #### [address] [address] .AUTO DIFF Collected: 01/12/2018 Status: F Source: [facility] 4:16 PM [facility] REPOSITORY TYPE CODE TESTS RESULT OUT OF REFERENCE UNITS RANGE LAB MILLY(LOINC) 37.0-80.0 % Neutrophil % 61.5 LAB LYM(LOINC) 10.0-50.0 % Lymphocyte % 18.6 LAB MON(LOINC) 1.7-13.0 % Monocyte High % 15.4 LAB EO(LOINC) 0.0-7.0 % Eosinophil % 3.7 LAB BAS(LOINC) 0.0-2.5 % Basophil % 0.8 LAB ABLYM(LOIN 0.77-3.85 10 3/mcL C) Lymphocyte, 1.10 Absolute LAB RAINE(LOINC 0.15-1.00 10 3/mcL ) Monocyte, 0.90 Absolute LAB AEOS(LOINC 0.00-0.40 10 3/mcL ) Eosinophil, 0.20 Absolute LAB ABAS(LOINC 0.00-0.19 10 3/mcL ) Basophil, 0.00 Absolute Performed By: #### CBC, ADIFF, ANEU, GFR, BMP #### [address] [address] .NEUABS Collected: 01/12/2018 Status: F Source: [facility] 4:16 PM [facility] REPOSITORY TYPE CODE TESTS RESULT OUT OF REFERENCE UNITS RANGE LAB ANEU(LOINC) 2.85-6.16 10 3/mcL Neutrophil, 3.60 Absolute Performed By: #### CBC, ADIFF, ANEU, GFR, BMP #### [place] [address] [address] .GFR Collected: 01/12/2018 Status: F Source: [facility] 4:16 PM [facility] REPOSITORY TYPE CODE TESTS RESULT OUT OF REFERENCE UNITS RANGE LAB GFRAA(LOINC ml/min/1.73 ) sqm GFR 28 [place]an Result Comment: GFR Population mean for , Non- Americans Ages 20-29 = 116 mL/min/1.73 sq.m. Ages 30-39 = 107 mL/min/1.73 sq.m. Ages 40-49 = 99 mL/min/1.73 sq.m. Ages 50-59 = 93 mL/min/1.73 sq.m. Ages 60-69 = 85 mL/min/1.73 sq.m. Ages 70+ = 75 mL/min/1.73 sq.m. Chronic Kidney Disease: Less than 60 mL/min/1.73 square meters End Stage Renal Disease: Less than 15 mL/min/1.73 square meters LAB GFRNO(LOINC) ml/min/1.73sqm GFR Non- 23 Result Comment: GFR Population mean for , Non- Americans Ages 20-29 = 116 mL/min/1.73 sq.m. Ages 30-39 = 107 mL/min/1.73 sq.m. Ages 40-49 = 99 mL/min/1.73 sq.m. Ages 50-59 = 93 mL/min/1.73 sq.m. Ages 60-69 = 85 mL/min/1.73 sq.m. Ages 70+ = 75 mL/min/1.73 sq.m. Chronic Kidney Disease: Less than 60 mL/min/1.73 square meters End Stage Renal Disease: Less than 15 mL/min/1.73 square meters Performed By: #### CBC, ADIFF, ANEU, GFR, BMP #### [place] [address] [address] BMP Collected: 01/12/2018 Status: F Source: [facility] 4:16 PM [facility] REPOSITORY TYPE CODE TESTS RESULT OUT OF REFERENCE UNITS RANGE LAB GLU(LOINC) 83-110 mg/dL Glucose High Level 130 LAB NA(LOINC) 136-146 mEq/L Sodium Level 137 LAB K(LOINC) 3.5-5.1 mEq/L Potassium Level 4.5 LAB CL(LOINC) 98-107 mEq/L Chloride 102 LAB CO2(LOINC) 23-31 mEq/L CO2 27 LAB EBAL(LOINC mEq/L ) Electrolyte Balance 8.0 LAB BUN(LOINC) 7.0-18.0 mg/dL BUN High 60.4 LAB CRE(LOINC) 0.6-1.2 mg/dL Creatinine High Lvl (s) 2.7 LAB BC(LOINC) 7-27 ratio BUN/Creatinine 22 Ratio LAB CA(LOINC) 8.4-10.2 mg/dL Calcium Lvl High 10.6 Performed By: #### CBC, ADIFF, ANEU, GFR, BMP #### [facility] [address] [place], [place] [address] VL CAROTID BILATERAL Observed: 10/11/2017 Status: F Source: [facility] 8:59 AM [facility] REPOSITORY ORIGINAL Carotid duplex examination using B-mode, color flow and spectral Doppler CLINICAL STATEMENT: Transient visual loss bilateral., COMPARISON: None FINDINGS: There is moderate intimal thickening in the common carotid arteries bilaterally. Yeblt-ft-ljxkefey amount of echogenic atherosclerotic plaque is present in the carotid bulb and proximal ICA on both sides. RIGHT SIDE: There is maximum 24% morphologic ICA stenosis. CCA PSV: 69 cm/s ICA PSV: 79 cm/s ICA/CCA ratio: 1.14 ECA PSV: 106 cm/s Vertebral artery: Antegrade Subclavian artery: Antegrade LEFT SIDE: There is maximum 34% morphologic diameter stenosis in the proximal ICA. 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 There is less than 50% carotid stenosis on both sides. Interpreted By: Sandor Guy MD Preliminary Report By: Sandor Guy MD Electronically Signed By: Sandor Guy MD Dictated Date: 10/11/2017 10:35:31 AM Prelim Date: 10/11/2017 10:35:31 AM Sign Date: 10/11/2017 10:38:00 AM CBC Collected: 10/06/2017 Status: F Source: [facility] 1:21 PM [facility] REPOSITORY TYPE CODE TESTS RESULT OUT OF REFERENCE UNITS RANGE LAB WBC(LOINC) 4.60-10.80 10 3/mcL WBC 8.10 LAB RBCCT(LOINC 4.04-6.13 10 6/mcL ) RBC 4.74 LAB HGB(LOINC) 14.0-18.0 G/dL Low Hgb 13.4 LAB HCT(LOINC) 42.0-52.0 % Low Hct 41.2 LAB MCV(LOINC) 80.0-94.0 fL MCV 86.9 LAB MCH(LOINC) 27.0-31.2 pg MCH 28.3 LAB MCHC(LOINC) 31.8-35.4 G/dL MCHC 32.6 LAB RDW(LOINC) 11.5-14.5 % RDW 14.3 LAB PLT(LOINC) 130-400 10 3/mcL Platelet 227 LAB MPV(LOINC) 7.4-10.4 fL MPV 8.3 Performed By: #### EZRA MAR ANEU #### [place] [address] [address] .AUTO DIFF Collected: 10/06/2017 Status: F Source: [facility] 1:21 PM [facility] REPOSITORY TYPE CODE TESTS RESULT OUT OF REFERENCE UNITS RANGE LAB MILLY(LOINC) 37.0-80.0 % Neutrophil % 72.6 LAB LYM(LOINC) 10.0-50.0 % Lymphocyte % 14.6 LAB MON(LOINC) 1.7-13.0 % Monocyte % 9.8 LAB EO(LOINC) 0.0-7.0 % Eosinophil % 2.2 LAB BAS(LOINC) 0.0-2.5 % Basophil % 0.8 LAB ABLYM(LOIN 0.77-3.85 10 3/mcL C) Lymphocyte, 1.20 Absolute LAB RAINE(LOINC 0.15-1.00 10 3/mcL ) Monocyte, 0.80 Absolute LAB AEOS(LOINC 0.00-0.40 10 3/mcL ) Eosinophil, 0.20 Absolute LAB ABAS(LOINC 0.00-0.19 10 3/mcL ) Basophil, 0.10 Absolute Performed By: #### CBC, ADIFF, ANEU #### [address] [place], [place] [address] .NEUABS Collected: 10/06/2017 Status: F Source: [facility] 1:21 PM [facility] REPOSITORY TYPE CODE TESTS RESULT OUT OF REFERENCE UNITS RANGE LAB ANEU(LOINC) 2.85-6.16 10 3/mcL Neutrophil, 5.90 Absolute Performed By: #### CBC, ADIFF, ANEU #### [address] [address] CMP Collected: 10/06/2017 Status: F Source: [facility] 1:19 PM [facility] REPOSITORY TYPE CODE TESTS RESULT OUT OF REFERENCE UNITS RANGE LAB 1547-9 83-110 mg/dL GLUCOSE High 118 LAB NA(LOINC) 136-146 mEq/L Sodium Level 137 LAB K(LOINC) 3.5-5.1 mEq/L Potassium High Level 5.4 LAB CL(LOINC) 98-107 mEq/L Chloride 99 LAB CO2(LOINC) 23-31 mEq/L CO2 30 LAB EBAL(LOINC mEq/L ) Electrolyte Balance 8.0 LAB BUN(LOINC) 7.0-18.0 mg/dL BUN High 20.7 LAB CRE(LOINC) 0.6-1.2 mg/dL Creatinine Lvl (s) 1.1 LAB BC(LOINC) 7-27 ratio BUN/Creatinine 19 Ratio LAB CA(LOINC) 8.4-10.2 mg/dL Calcium Lvl 9.3 LAB PROT(LOINC 6.0-8.3 G/dL ) Total Protein 6.9 LAB ALB(LOINC) 3.4-4.8 G/dL Albumin Level 4.0 LAB GLB(LOINC) G/dL Globulin 2.9 LAB AG(LOINC) 1.1-2.5 ratio A/G Ratio 1.4 LAB BILT(LOINC 0.2-1.0 mg/dL ) Bili Total 0.4 LAB AP(LOINC) 40-135 IU/L Alk Phos 66 LAB AST(LOINC) 10-40 IU/L AST/SGOT 28 LAB ALT(LOINC) 10-35 IU/L ALT/SGPT 33 Performed By: #### CMP, LIPID, GFR, A1C #### [address] [address] #### VI #### [address] [address] LIPID Collected: 10/06/2017 Status: F Source: [facility] 1:19 PM [facility] REPOSITORY TYPE CODE TESTS RESULT OUT OF REFERENCE UNITS RANGE LAB CHOL(LOINC 131-200 mg/dL ) Cholesterol High 212 Result Comment: Cholesterol Reference Interval: Less than 200 Desirable 200-239 Borderline high risk 240 and above High risk LAB TRIG(LOINC) 40-150 mg/dL Triglycerides 105 Result Comment: Triglyceride Reference Interval: Less than 150 Normal 150-199 Borderline high risk 200-499 High risk 500 or higher Very high risk LAB HD(LOINC) 35-90 mg/dL HDL Cholesterol 42 Result Comment: HDL Reference Interval: Less than 40 Low - high risk 60 or above Optimal/lowers risk LAB LDL(LOINC) 0-130 mg/dL LDL High Cholesterol 149 Result Comment: LDL is a calculated result and requires a 12-hr fast. LDL Reference Interval: Less than 100 Optimal 100-129 Near or above optimal 130-159 Borderline high risk 160-189 High risk 190 and above Very high risk Performed By: #### CMP, LIPID, GFR, A1C #### [address] [address] #### VI #### [place] [address] .GFR Collected: 10/06/2017 Status: F Source: [facility] 1:19 [facility] [place] REPOSITORY TYPE CODE TESTS RESULT OUT OF REFERENCE UNITS RANGE LAB GFRAA(LOINC ml/min/1.73 ) sqm GFR 80 [place] Result Comment: GFR Population mean for , Non- Americans Ages 20-29 = 116 mL/min/1.73 sq.m. Ages 30-39 = 107 mL/min/1.73 sq.m. Ages 40-49 = 99 mL/min/1.73 sq.m. Ages 50-59 = 93 mL/min/1.73 sq.m. Ages 60-69 = 85 mL/min/1.73 sq.m. Ages 70+ = 75 mL/min/1.73 sq.m. Chronic Kidney Disease: Less than 60 mL/min/1.73 square meters End Stage Renal Disease: Less than 15 mL/min/1.73 square meters LAB GFRNO(LOINC) ml/min/1.73sqm GFR Non- >60 Result Comment: GFR Population mean for , Non- Americans Ages 20-29 = 116 mL/min/1.73 sq.m. Ages 30-39 = 107 mL/min/1.73 sq.m. Ages 40-49 = 99 mL/min/1.73 sq.m. Ages 50-59 = 93 mL/min/1.73 sq.m. Ages 60-69 = 85 mL/min/1.73 sq.m. Ages 70+ = 75 mL/min/1.73 sq.m. Chronic Kidney Disease: Less than 60 mL/min/1.73 square meters End Stage Renal Disease: Less than 15 mL/min/1.73 square meters Performed By: #### CMP, LIPID, GFR, A1C #### [address] [id number] #### VIDH #### [place] [address] A1C Collected: 10/06/2017 Status: F Source: [facility] 1:19 [facility] [place] REPOSITORY TYPE CODE TESTS RESULT OUT OF RANGE REFERENCE UNITS LAB A1C(LOINC) 4.8-5.9 % High Hgb A1c 7.8 Performed By: #### CMP, LIPID, GFR, A1C #### [address] [id number] #### VIDH #### [address] [id number] VIDH Collected: 10/06/2017 Status: F Source: [facility] 1:19 PM [facility] REPOSITORY TYPE CODE TESTS RESULT OUT OF RANGE REFERENCE UNITS LAB VIDH(LOINC) ng/mL Vit. D 31 25-Hydroxy Result Comment: Interpretive Values Based on Total 25(OH)D: Severe Deficiency <20 ng/mL Mild to Moderate Deficiency 20-30 ng/mL Optimum Levels 30-100 ng/mL Toxicity Possible >100 ng/mL Performed By: #### CMP, LIPID, GFR, A1C #### [place] [address] [place], [place] [address] #### VIDH #### [place] [address] UA Collected: 10/06/2017 Status: F Source: [facility] 1:19 PM [facility] REPOSITORY TYPE CODE TESTS RESULT OUT OF REFERENCE UNITS RANGE LAB SPCUA(LOIN C) UA Specimen Type Void LAB CLRUA(LOIN C) UA Color YELLOW LAB APPUA(LOIN C) UA Appear CLEAR LAB SGUA(LOINC ) UA Spec Grav 1.025 LAB GLUA(LOINC mg/dL ) UA Glucose NEGATIVE LAB BILUA(LOIN C) UA Bili NEGATIVE LAB KETUA(LOIN mg/dL C) UA Ketones NEGATIVE LAB BLDUA(LOIN C) UA Blood NEGATIVE LAB PHUA(LOINC ) UA pH 6.0 LAB PROUA(LOIN mg/dL C) UA Protein NEGATIVE LAB UROUA(LOIN E.U./dL C) UA Urobilinogen 0.2 LAB NITUA(LOIN C) UA Nitrite NEGATIVE LAB LEUUA(LOIN C) UA Leuk Est NEGATIVE Performed By: #### UA, UAMICAO #### [place] [address] [place], [place] [address] .URINALYSIS MICROSCOPIC Collected: 10/06/2017 Status: F Source: [facility] () 1:19 [facility] REPOSITORY TYPE CODE TESTS RESULT OUT OF REFERENCE UNITS RANGE LAB WBCUA(LOIN None Seen /hpf C) UA WBC None Seen LAB RBCUA(LOIN None Seen /hpf C) UA RBC None Seen LAB EPIUA(LOIN None Seen /hpf C) UA Squam Epithelial None Seen Performed By: #### UA, UAMICAO #### [place] [address] [place], [place] [address] ALLERGIES ALLERGIES No Allergies Records FoundENCOUNTERS ENCOUNTERS ADMIT/DISCHARGE ACCOUNT NUMBER ADMITTING ENCOUNTER LOCATION SOURCE CLASS 09/25/2018 [id number] Ambulatory [facility] ding:[facility] Repository 08/22/2018/08/22/20 [id number] Ambulatory BBuilding:ZELDA [address] Repository 08/04/2018/08/04/20 [id number] Ambulatory BBuilding:OL Franki 18 AB [facility] Repository 08/04/2018/08/04/20 [id number] Ambulatory BBuilding:OL Franki 18 [facility] Repository 08/01/2018/08/01/20 [id number] Ambulatory ABuilding:VL Franki 18 [facility] Repository 07/20/2018/07/20/20 [id number] Ambulatory BBuilding:OL Franki 18 [facility] Repository 06/29/2018/06/29/20 [id number] Ambulatory FRANKI Franki [address] [place] [address] ding:OLAB [facility] Repository 06/29/2018/06/29/20 [id number] Ambulatory FRANKI Franki [address] [place] [address] ding:RAD [facility] Repository 05/22/2018/05/22/20 [id number] Ambulatory FRANKI Franki [address] [place] [address] ding:RAD [facility] Repository 04/15/2018/04/15/20 [id number] Emergency BBuilding:ER Franki 18 [facility] Repository 02/10/2018/02/11/20 [id number] Ambulatory FRANKI Franki [address] [place] [address] [facility] 02/10/2018/02/11/20 [id number] Ambulatory FRANKI Franki [address] [place] [address] [facility] 01/12/2018/01/14/20 [id number] JOHANNA GUADALUPE., Inpatient BBuilding:MS Franki aDvis MD. PALLAVI Gong URRoom: Health 0233Bed: A [facility] Repository 10/11/2017/10/11/19 [id number] Ambulatory FRANKI Franki [address] [place] [address] ding:RAD [facility] Repository 10/06/2017/10/06/19 [id number] Ambulatory FRANKI Franki [address] [place] [address] ding:OLAB [facility] Repository 10/06/2017/10/06/19 [id number] Ambulatory FRANKI Franki [address] [place] [address] ding:OLAB [facility] Repository 09/30/2017/01/26/20 [id number] Ambulatory [address] ding:[facility] Repository PAYERS PAYERS ENCOUNTER GUARANTOR PAYER SUBSCRIBER SOURCE 09/25/2018 TESSY E Primary TESSY Abreu [id number] [facility] [place] MEDICARE PPOPolicy [id number] Hospital RDDAKASH [place] Number: Repository [id number]: 330) [id number] [phone] (HP) Date:[id number]ZCQFBNZ [place] [address]EH: 09/25/2018 Secondary NOT GIVENUNK Brady Insurance:SELF PAY [facility] Number: Effective Repository Date:2018-09-25 08/22/2018 TESSY E [facility] [id number] [facility] [id number] Repository [place]ERN Number: [address] [facility] [place] [id number] [place], [place] [address]Lur: (330) Date:2018-08-18 06624Rlj: (HP) [id number] [phone] Name:NPO Box ()Tel: 000) [id number] [place] 000-0000 (WP) [id number]: 08/04/2018 [facility]: [facility] [id number] [facility] [id number] Repository [place]ERN Number: [address] [place] [id number] [place] [address]Qrv: (330) Date:2018-08-04 98984Ugs: (HP) [id number] [phone] Name:NPO Box (HP)Tel: (000) [id number] [place] 000-0000 (WP) [address]UL: 08/04/2018 TESSY E Primary [facility]: Insurance:[facility] [id number] Repository WESTERN Number: [address] [place], [place] [id number] [place], [place] [address]Vhs: (330) Date:2018-08-04Tel: (HP) [id number] [phone] Name:NPO Box (HP)Tel: (000) [phone], [place] 000-0000 (WP) [address]BB: 08/01/2018 TESSY E Primary [facility]: Insurance:[facility]: [facility] [id number] Repository WESTERN Number: [address] [place] [id number] [place], [place] [address]Lrf: (330) Date:2018-07-24Tel: (HP) [id number] [phone] Name:NPO Box (HP)Tel: (000) [phone], [place] 000-0000 (WP) [address]WV: 07/20/2018 TESSY E Primary [facility]: Insurance:[facility]: [facility] [id number] Repository WESTERN Number: [address] [place], [place] [id number] [place], [place] [address]Zsk: (330) Date:2018-07-20Tel: (HP) [id number] [phone] Name:NPO Box (HP)Tel: (000) [phone], [place] 000-0000 (WP) [address]MB: 06/29/2018 TESSY E Primary [facility]: Insurance:[facility]WE[facility]ITAL[facility]: [facility] [id number] Repository WESTERN Number: [address] [place] [id number] [place], [place] [address]Bjz: (330) Date:2018-06-29Tel: (HP) [id number] [phone] Name:NPO Box (HP)Tel: (000) [phone], [place] 000-0000 (WP) 780[address]ZB: 06/29/2018 TESSY E Primary TESSY [facility]: Insurance:[facility]: [facility] [id number] Repository WESTERN Number: [address] [place] [id number] [place], [place] [address]Msd: (330) Date:2018-06-29Tel: (HP) [id number] [phone] Name:NPO Box (HP)Tel: (000) [phone], [place] 000-0000 (WP) 326[address]ED: 05/22/2018 [facility]ESSY E [facility]ELCOREWE[facility]OSPITALB: [facility] [id number] Repository WESTERN Number: [address] [place] [id number] [place] [address]Kgp: (330) Date:2018-04-12Tel: (HP) [id number] [phone] Name:NPO Box (HP)Tel: (000) [id number], [place] 000-0000 (WP) [address]SY: 04/15/2018 TESSY E Primary [facility]: Insurance:LUIS DUPREEB: [facility] [id number] Repository [place]STERN Number: [address] [place], [place] [id number] [place], [place] [address]Pgh: (330) Date:2018-04-15Tel: (HP) [id number] [phone] Name:NPO Box (HP)Tel: (000) [phone], [place] 000-0000 (WP) [address]TA: 02/10/2018 TESSY E Primary [facility]: Insurance:[facility]: [facility] [id number] Repository WESTERN Number: [address] [place], [place] [id number] [place], [place] [address]Lpr: (330) Date:2018-02-10Tel: [id number] [phone] (HP)Tel: (999) Name:NPO Box (HP) (WP) [phone], [place] 000-0000 (WP) [address]IF: 02/10/2018 TESSY E Primary [facility]: Insurance:[facility]IS TRIPLETTCOREWELL [facility]OSPITALB: [facility] [id number] Repository WESTERN Number: [address] [place] [id number] [place] [address]Maj: (330) Date:2018-02-10Tel: [id number] [phone] (HP)Tel: (999) Name:NPO Box (HP) (WP) , [place] 000-0000 (WP) [address]TX: 01/12/2018 TESSY E Primary [facility]: Insurance:[facility]: [facility] [id number] [facility] [id number] Repository WESTERN Number: [address] [place] [id number] [place], [place] [address]Jld: (330) Date:2018-01-12Tel: [id number] [phone] (HP)Tel: (999) Name:NPO Box (HP) (WP) [id number], [place] 000-0000 (WP) [address]KK: 01/12/2018 Secondary [facility] Insurance:MEDICARE NUSSBAUMDOB: [facility] PART APolicy Number: [id number] Repository [id number] [address] Date:2018-01-12 - [place] [id number] [address]Rqz: (330) Name:[facility] [phone] 600PO Box (HP)Tel: (000) [phone], [place] 000-0000 (WP) [address]JE: 10/11/2017 TESSY E Primary [facility]: Insurance:[facility]: [facility] [id number] [facility] [id number] Repository WESTERN Number: [address] [place], [place] [id number] [place], [place] [address]Ycy: (330) Date:2017-10-11 564[address]Luh: [id number] [phone] (HP)Tel: (999) Name:NPO Box (HP) (WP) [id number], [place] 000-0000 (WP) [address]ER: 10/06/2017 TESSY E Primary [facility]: [facility]ADEL[facility]: [facility] [id number] Repository WESTERN Number: [address] [place], [place] [id number] [place], [place] [address]Pjq: (330) Date:2017-10-06Tel: [id number] [phone] (HP)Tel: (999) Name:NPO Box (HP) (WP) [id number], [place] 000-0000 (WP) [address]CA: 10/06/2017 TESSY E Primary TESSY [facility]: [facility] [id number] Repository WESTERN Number: [address] [place], [place] [id number] [place], [place] [address]Eah: (330) Date:2017-10-06Tel: [id number] [phone] (HP)Tel: (999) Name:NPO Box (HP) (WP) [id number], [place] 000-0000 (WP) [id number]: 09/30/2017 TESSY E Primary [facility]: [facility]THEN[facility]: [facility] [id number] Repository WESTERN Number: [address] [place], [place] [id number] [place], [place] [address]Eoi: (330) Date:2017-09-26Tel: [id number] [phone] (HP)Tel: (999) Name:NPO Box (HP) (WP) [id number], [place] 000-0000 (WP) [address]RQ:
== END ==
PROVIDERS: Family Provider Internal Medicine; PCP Internal Medicine; Referring Provider Internal Medicine Rheumatology; Visit Provider Internal Medicine Rheumatology
DX: M06.4 Inflammatory polyarthropathy (principal); M15.9 Polyosteoarthritis, unspecified; I25.10 Atherosclerotic heart disease of native coronary artery without angina pectoris; I10 Essential (primary) hypertension; E11.9 Type 2 diabetes mellitus without complications; G47.33 Obstructive sleep apnea (adult) (pediatric); K22.70 Barrett's esophagus without dysplasia; N40.0 Benign prostatic hyperplasia without lower urinary tract symptoms
CPT/HCPCS: 36415; 80053; 85025

== ENCOUNTER → 2024-07-24 | Outpatient (CLI) | payer MEDICARE, SELFPAY ==
--- NOTE | 2024-07-24 13:49 | CDU_ITS ---
Reason For Study: Diplopia Rt. Velocities/BP Lt. Velocities/BP Prox CCA 66.4/13.5 cm/sec. Prox CCA 65.2/10.2 cm/sec. Mid CCA 73/15.4 cm/sec. Mid CCA 58.6/14.6 cm/sec. Dist CCA 54.1/9.7 cm/sec. Dist CCA 57.5/10.2 cm/sec. Prox ICA 73/17.3 cm/sec. Prox ICA 56.4/20.1 cm/sec. Mid ICA 78.7/22 cm/sec. Mid ICA 69.6/15.7 cm/sec. Dist ICA 94.9/26.2 cm/sec. Dist ICA 52/12.4 cm/sec. Rt. ICA/CCA = 1.3. Lt. ICA/CCA = 1.19. Prox ECA 57/5 cm/sec. Prox ECA 59.7/6.9 cm/sec. Rt. Vert. 36.6/13.5 cm/sec. Lt. Vert. 21.8/3.7 cm/sec. Right Extracranial There is intimal thickening but no significant atherosclerotic plaque noted in the right common carotid artery. There is heterogeneous, irregular atherosclerotic plaque noted in the right internal carotid artery. There is intimal thickening but no significant atherosclerotic plaque noted in the right external carotid artery. Antegrade flow is noted in the right vertebral artery. Left Extracranial There is intimal thickening but no significant atherosclerotic plaque noted in the left common carotid artery. There is homogeneous, smooth atherosclerotic plaque noted in the left internal carotid artery. There is intimal thickening but no significant atherosclerotic plaque noted in the left external carotid artery. Antegrade flow is noted in the left vertebral artery. Procedure Carotid Duplex 23523. This is a Carotid Duplex examination using B-mode, color flow and specral Doppler. Exam performed in department. VL/Carotid Duplex Ultrasound Interpretation Summary Mild (<50%) stenosis right extracranial internal carotid. Mild (<50%) stenosis left extracranial internal carotid. Patent and antegrade vertebrals bilaterally. Ordering Physician: Ezekiel Mcdowell Referring Physician: Jaki Lin Performed By: Josselin Boyd RVT
== END | disposition home or self-care (01) ==
PROVIDERS: PCP Internal Medicine; Referring Provider Ophthalmology; Visit Provider Ophthalmology
DX: H53.2 Diplopia (principal); H49.22 Sixth [abducent] nerve palsy, left eye
CPT/HCPCS: 93880

== ENCOUNTER → 2024-08-21 | Outpatient (CLI) | payer MEDICARE, SELFPAY ==
--- NOTE | 2024-08-21 10:39 | MRI_ITS ---
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 CONTRAST: IV 19ml clariscan COMPARISON: No relevant prior studies available. FINDINGS: BRAIN AND EXTRA-AXIAL SPACES: No restricted diffusion to indicate acute ischemia. Increased T2 signal intensity within the cerebral white matter suggestive of chronic microvascular change. Prominence of the cortical sulci and ventricles related to volume loss change. No abnormal contrast enhancement. Basilar cisterns are patent. SELLA: Normal. Normal sella turcica, pituitary gland, infundibular stalk, optic chiasm and hypothalamus. AUDITORY SYSTEM: Normal. The internal auditory canals are patent. BONES/JOINTS: Intact calvarium. SINUSES: Mucosal thickening of the paranasal sinuses. MASTOID AIR CELLS: Clear. ORBITS: Unremarkable as visualized. Both globes, extraocular muscles, optic nerves and retrobulbar fat appear unremarkable. 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 Otherwise normal flow voids within the proximal intracranial vessels. MRI/Brain W/WO Contrast IMPRESSION: 1. No acute intracranial abnormality. As above. 2. Senescent changes. Electronically Signed: David Hernandez MD at 17:04 EST ,
[2024-08-21 11:48] LABS: CREATININE FINGERSTICK < 1.0 mg/dL (0.70-1.30); EGFR FINGERSTICK > 60.0000 mL/min (>60)
== END | disposition home or self-care (01) ==
PROVIDERS: PCP Internal Medicine; Referring Provider Ophthalmology; Visit Provider Ophthalmology
DX: H53.2 Diplopia (principal); H49.22 Sixth [abducent] nerve palsy, left eye
CPT/HCPCS: 70553; A9575

== ENCOUNTER → 2025-02-05 | Outpatient (CLI) | payer SELFPAY ==
[2025-02-05 15:24] LABS: Absolute Lymphocyte Count 0.42 X10^3/uL (0.83-4.51); Absolute Neutrophil Count 3.2 X10^3/uL (2.0-7.7); Basophil# 0.03 X10^3/uL; Basophil% 0.7 % (0-1); Eosinophil# 0.11 X10^3/uL; Eosinophils% 2.5 % (0-5); Hematocrit 32.6 % (40-54); Hemoglobin 10.2 g/dL (13.0-16.5); Lymphocyte # 0.42 X10^3/ul (0.83-4.51); Lymphocyte % 9.7 % (19-41); Mean Corp Hgb Conc 31.3 g/dL (32-36); Mean Corpuscular Hgb 28.2 pg (27.0-32.0); Mean Corpuscular Volume 90.1 fL (80-94); Mean Platelet Vol. 9.2 fl (6.2-12.0); Monocyte# 0.53 X10^3/uL; Monocyte% 12.2 % (0-10); NRBC Flagged by Analyzer 0 % (0-5); Neutrophil # 3.22 X10^3/uL (2.7-7.7); Neutrophil % 74.4 % (47-70); POSITIVE DIFFERENTIAL YES; Platelet Count 166 K/mm3 (150-450); RBC Distribution Width CV 17.7 % (11.6-14.6); RBC Distribution Width SD 58.5 fl (35.1-43.9); Red Blood Count 3.62 M/mm3 (4.6-6.2); White Blood Count 4.3 K/mm3 (4.4-11.0)
[2025-02-05 15:43] LABS: ALB/GLOB Ratio 1.3 RATIO (0.9-2.4); AST(SGOT) 32 U/L (<=37); Alanine Aminotransfer ALT/SGPT 22 U/L (<=46); Albumin, Serum 4.1 g/dL (3.4-4.8); Alkaline Phosphatase 59 U/L (40-129); Anion Gap 11 (5-15); BUN 44 mg/dL (4-19); BUN/Creat Ratio 30.1 RATIO (10-20); Calcium,Total 10.6 mg/dL (7.6-11.0); Carbon Dioxide 22.4 mmol/L (21.0-32.0); Chloride 103 mmol/L (98-108); Creatinine, Serum 1.47 mg/dL (0.70-1.20); EST Glomerular Filtration Rate 46 (>60); Globulin 3.2 g/dL (2.2-4.2); Glucose 89 mg/dL (70-99); Potassium 4.9 mmol/L (3.3-5.1); Protein, Total 7.3 g/dL (5.9-8.4); Sodium Level 136 mmol/L (133-145)
== END | disposition home or self-care (01) ==
LOC: MFPLAB 12:05
PROVIDERS: PCP Internal Medicine; Visit Provider Internal Medicine Rheumatology
DX: M06.4 Inflammatory polyarthropathy (principal); M15.9 Polyosteoarthritis, unspecified; Z79.899 Other long term (current) drug therapy
CPT/HCPCS: 36415; 80053; 85025

== ENCOUNTER → 2025-05-01 | Outpatient (CLI) | payer OTHER, SELFPAY ==
[2025-05-01 18:06] LABS: Hematocrit 31.0 % (40-54); Hemoglobin 9.5 g/dL (13.0-16.5); Immature Granulocytes Count 0.030 X10^3/uL (0.0-0.0); Mean Corp Hgb Conc 30.6 g/dL (32-36); Mean Corpuscular Volume 91.4 fL (80-94); Mean Platelet Vol. 9.9 fl (6.2-12.0); NRBC Flagged by Analyzer 0 % (0-5); POSITIVE DIFFERENTIAL YES; Platelet Count 129 K/mm3 (150-450); RBC Distribution Width CV 16.6 % (11.6-14.6); RBC Distribution Width SD 55.6 fl (35.1-43.9); Red Blood Count 3.39 M/mm3 (4.6-6.2); White Blood Count 3.4 K/mm3 (4.4-11.0)
[2025-05-01 18:09] LABS: AST(SGOT) 27 U/L (<=37); Alanine Aminotransfer ALT/SGPT 19 U/L (<=46); Albumin, Serum 4.0 g/dL (3.4-4.8); Alkaline Phosphatase 63 U/L (40-129); Anion Gap 11 (5-15); BUN 41 mg/dL (4-19); BUN/Creat Ratio 30.4 RATIO (10-20); Calcium,Total 9.6 mg/dL (7.6-11.0); Carbon Dioxide 23.6 mmol/L (21.0-32.0); Chloride 103 mmol/L (98-108); Globulin 2.7 g/dL (2.2-4.2); Glucose 100 mg/dL (70-99); Potassium 4.3 mmol/L (3.3-5.1)
== END | disposition home or self-care (01) ==
LOC: MFPLAB 14:20
PROVIDERS: PCP Internal Medicine; Referring Provider Internal Medicine Rheumatology; Visit Provider Internal Medicine Rheumatology
DX: M06.4 Inflammatory polyarthropathy (principal); M15.9 Polyosteoarthritis, unspecified; Z79.899 Other long term (current) drug therapy
CPT/HCPCS: 36415; 80053; 85025

== ENCOUNTER 2025-08-27 18:01 | Emergency (ER) | payer MEDICARE, SELFPAY ==
[2025-08-27 18:03] VITALS: BP 182/66; PULSE 55; RESP 18; TEMP 36.1; O2SAT 97
[2025-08-27 18:07] VITALS: BMI 28.8
--- NOTE | 2025-08-27 18:29 | EX.ED.DYSGE1 ---
HPI History of Present Illness Chief Complaint: Back Narrative Narrative: Patient is a 89-year-old male with past medical history of chronic back pain, hypertension, CAD who presented to the emergency department with a chief complaint of back pain. Patient notes that about 4 days ago now he developed back pain and it radiates down his left leg into his toes denies any injuries or trauma to his back. 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 Patient states that he is urinating normally for himself having normal bowel movements. He states that he has been taking Tylenol for pain control 1000 mg at a time, tizanidine, steroids and this is not helping his symptoms he states that he has not slept in 3 days therefore he came here to be further evaluated. Family member did note that yesterday he went to a urgent care and had x-rays of his back obtained which disc was provided here. They note that in the past he went to [facility] for similar incidents and the symptoms got better over time. [facility] Medical History HTN (hypertension) CAD (coronary artery disease) Diabetes Home Medications ?Medication ?Instructions ?Recorded ?Last Taken ?Type acetaminophen 500 mg tablet 1,000 mg PO Q6H PRN pain 08/27/25 Unknown History (Tylenol Extra Strength) apixaban 5 mg tablet (Eliquis) 5 mg PO BID 08/27/25 Unknown History cyclobenzaprine 5 mg tablet 5 mg PO TID PRN muscle spasm #20 08/27/25 Unknown Rx tabs empagliflozin 25 mg tablet 25 mg PO DAILY 08/27/25 Unknown History (Jardiance) Held on 08/27/25. Instructions: Order Changed glipizide 5 mg tablet 5 mg PO DAILY 08/27/25 Unknown History leflunomide 10 mg tablet 10 mg PO DAILY 08/27/25 Unknown History lisinopril 40 mg tablet 40 mg PO DAILY 08/27/25 Unknown History metoprolol succinate 25 mg 25 mg PO DAILY 08/27/25 Unknown History tablet,extended release 24 hr ondansetron 4 mg disintegrating 4 mg PO Q6H PRN nausea and 08/27/25 Unknown Rx tablet vomiting #20 tabs oxycodone-acetaminophen 5 mg-325 1 tab PO Q6H PRN pain 3 days #12 08/27/25 Unknown Rx mg tablet (Endocet) tabs prednisone 10 mg tablet 10 mg PO DAILY 08/27/25 Unknown History sitagliptin phosphate 50 mg tablet 50 mg PO DAILY 08/27/25 Unknown History (Januvia) tizanidine 4 mg tablet 4 mg PO TID 08/27/25 Unknown History Allergy/AdvReac Type Severity Reaction Status Date / Time No Known Allergies Allergy Verified 08/27/25 18:06 Surgical History H/O aortic valve replacement with porcine valve Social History Smoking Status: Never smoker ROS ROS ED ROS Narrative Constitutional: Denies any fevers, chills, headaches Cardiovascular: Denies chest pain Respiratory: Denies shortness of breath Abdomen: Denies abdominal pain nausea vomit diarrhea : Denies urinary symptoms Neurological: Denies any numbness or tingling Musculoskeletal: Complains of back pain as noted above Skin: Denies any rashes or lesions EXAM Physical Exam Narrative Exam Narrative: General: Patient was lying in bed rest comfortably did not appear to be in acute distress Head: Atraumatic, normocephalic Eyes: PERRL bilaterally, EOMI bilaterally, no conjunctival injection noted Neck: Soft, supple, trachea midline Cardiovascular: Patient bradycardic with a regular rhythm Respiratory: Clear to auscultation bilaterally Abdomen: Soft, nondistended, nontender to palpation Extremities: +4/5 strength noted in the left lower extremity secondary to pain, +5/5 strength noted in the bilateral upper extremities in the right lower extremity Neurological: Patient following commands that he was at [facility] year is 2024 sensation grossly intact no saddle anesthesia noted Skin: Warm, dry, intact no rashes or lesions noted Const Vital Signs: 08/27/25 18:03 Temperature 96.9 F L Temperature Source Temporal Pulse Rate 55 L Respiratory Rate 18 Blood Pressure 182/66 H Blood Pressure Mean 104 Pulse Ox 97 Oxygen Delivery Method Room Air MDM MDM MDM Narrative Medical decision making narrative: Patient is a 82-year-old male who presented to the emergency department chief complaint of back pain. On the differential diagnose includes but not limited to musculoskeletal strain, UTI, pyelonephritis, compression fracture although have low suspicion for this as he has not any trauma or injuries. Once workup is obtained reviewed he will be reevaluated. Patient will be given morphine and Zofran as well as IV fluids images will be uploaded as well. Patient's CBC reviewed and showed a white blood count of 3.5 with a stable, hemoglobin is 10.8, plate count was noted be 137. Patient sodium was 138, potassium normal 4.7, creatinine was noted to be 1.47 he has underlying chronic kidney disease. Patient's AST and ALT normal at 26 and 17 respectively urinalysis reviewed showed no evidence of infection. Anion gap normal at 9. 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 Patient was reevaluated he states that he was feeling better after morphine however after removing the PE he had a increase in his back pain therefore he was given milligram Dilaudid. He was observed. On reevaluation the patient is feeling better he wants to go home at this point time. Patient will be given prescription for Flexeril he was advised to stop using the tizanidine as sometimes certain muscle laxer's do not work well for certain individuals. He will be given a prescription for Endocet and Zofran. He is advised to not operate anything under the influence this medication he was advised to use Tylenol as well for mild to moderate pain. He states that he has lidocaine patches he was encouraged to continue to use these as well. He was advised to keep a close eye on his sugars as he is on prednisone already as well. He is encouraged to follow-up with [facility] who he is already established with. He is agreeable this plan all question concerns answered he is discharged home in stable condition as well as family at bedside is also agreeable with this plan. Lab Data Labs: Laboratory Results - last 24 hr 08/27/25 08/27/25 08/27/25 18:40 18:54 19:33 WBC 3.5 L RBC 3.78 L Hgb 10.8 L Hct 34.2 L MCV 90.5 MCH 28.6 MCHC 31.6 L RDW Std Deviation 53.2 H RDW Coeff of Cristóbal 16.0 H Plt Count 137 L MPV 10.1 Immature Gran % (Auto) 0.300 Neut % (Auto) 81.1 H Lymph % (Auto) 8.7 L [place] % (Auto) 8.7 Eos % (Auto) 0.6 Baso % (Auto) 0.6 Absolute Neuts (auto) 2.8 Absolute Lymphs (auto) 0.30 L Nucleated RBC % 0 Sodium 138 Potassium 4.7 Chloride 104 Carbon Dioxide 24.5 Anion Gap 9 BUN 41 H Creatinine 1.47 H Estim Creat Clear Calc 40.63 L Est GFR (MDRD) Non-Af 46 L BUN/Creatinine Ratio 28.2 H Glucose 239 H Calcium 9.5 Total Bilirubin 0.15 AST 26 ALT 17 Alkaline Phosphatase 49 Total Protein 7.1 Albumin 4.2 Globulin 2.9 Albumin/Globulin Ratio 1.5 Urine Color Yellow Urine Clarity Clear Urine pH 6.0 Ur Specific [place] 1.020 Urine Protein 30 H Urine Glucose (UA) Normal Urine Ketones Negative Urine Occult Blood Negative Urine Nitrite Negative Urine Bilirubin Negative Urine Urobilinogen Normal Ur Leukocyte Esterase 100 H Urine RBC 0-5 SEEN Urine WBC 0-5 SEEN Ur Squamous Epith Cells 0-5 SEEN Urine Bacteria RARE Urine Mucus 0 SEEN POC Glucose 217 H Discharge Plan Triage Chief Complaint: Back ED Provider: Sushil Sherman Dx/Rx/DC Orders Clinical Impression: Back pain, History of hypertension, CAD (coronary artery disease) Prescriptions: New cyclobenzaprine 5 mg tablet 5 mg PO TID PRN (Reason: muscle spasm) Qty: 20 0RF oxycodone-acetaminophen [Endocet] 5-325 mg tablet 1 tab PO Q6H PRN (Reason: pain) 3 Days Qty: 12 0RF ondansetron 4 mg tablet,disintegrating 4 mg PO Q6H PRN (Reason: nausea and vomiting) Qty: 20 0RF No Action prednisone 10 mg tablet 10 mg PO DAILY tizanidine 4 mg tablet 4 mg PO TID leflunomide 10 mg tablet 10 mg PO DAILY metoprolol succinate 25 mg tablet extended release 24 hr 25 mg PO DAILY lisinopril 40 mg tablet 40 mg PO DAILY glipizide 5 mg tablet 5 mg PO DAILY Januvia 50 mg tablet 50 mg PO DAILY Eliquis 5 mg tablet 5 mg PO BID Jardiance 25 mg tablet 25 mg PO DAILY acetaminophen [Tylenol Extra Strength] 500 mg tablet 1,000 mg PO Q6H PRN (Reason: pain) Primary Care Provider: Jaki Lin Referrals: Jaki Lin DO [Primary Care Provider, Internal Medicine] Activity Restrictions/Additional Instructions: Continue to use your prescriptions as prescribed stop taking your tizanidine and try Flexeril instead. Use the Endocet and Zofran for severe pain. Take the Zofran before you take the Endocet as sometimes the narcotic will upset your stomach. Follow-up with your doctor at [facility] in the outpatient setting. Return if worsening symptoms or other concerns Print Language: [place] Irish Disposition Disposition: Home, Self Care
[2025-08-27] MEDS: 0.9% Normal Saline (1000mL) 1,000 ML 999 ML IV (18:46)
--- OUTSIDE RECORDS SUMMARY | 2025-08-27 18:57 | XMS RPT_ITS | CCD ---
Author Organization [facility] CliniSysd Care Team Providers Care V Belt Curer Name Role Phone Allen Phelps Unavailable Unavailable REFERRING, LISA WO ID Unavailable Unavailable ISABELLA JUSTICE Unavailable Unavailable JAKI FLEMING Unavailable Unavailable Jaki Fleming Primary Care Provider LONNIE KAUR, DR POLLACK Primary Care Physician Yang Rounding NurseRamon Unavailable Jaki Mckenna DO Primary Care Provider LONNIE KAUR, DR POLLACK Primary Care Unavailable LASHAE MOULTON MD Attending Unavailable [facility] Attending Unava ilable LONNIE KAUR, DR POLLACK Primary Care Unavailable RESHMA GUADALUPE, DR MASON Attending Unavailkyler FLEMING DO, DR POLLACK Primary Care Unavailable GIANNA GUADALUPE, DR GALO Attending Unavailable LONNIE KAUR, DR POLLACK Primary Care Unavailable LONNIE KAUR, DR POLLACK Primary Care Unavailable DAVION GUADALUPE, DR TAYLOR Chamorro Admitting SINCERE Saez MD Attending Unavailable LONNIE KAUR, DR POLLACK Consulting Unavailable TIFFANY VELOZ MD Consulting Unavailable RASHI KAUR, HAYDEE Consulting UnavailEZEKIEL Chahal MD, I Consulting Unavailable EZEKIEL QUIROS MD, I Attending Unavailable LONNIE KAUR, DR POLLACK Primary Care Unavailable KAYLIE MEJÍA Attending Unavailable LONNIE KAUR, DR POLLACK Primary Care Unavailable EZEKIEL BURRIS Attending Unavailable LONNIE KAUR, DR POLLACK Primary Care Unavailable KAYLIE MEJÍA Attending Unavailable LONNIE KAUR, DR POLLACK Primary Care Unavailable GIANNA GUADALUPE, DR GALO Attending Unavailable LONNIE KAUR, DR POLLACK Primary Care Unavailable EZEKIEL BURRIS Attending Unavailable LONNIE KAUR, DR POLLACK Primary Care Unavailable LONNIE KAUR, DR POLLACK Primary Care Unavailable KAYLIE MEJÍA Attending Unavailable LONNIE KAUR, DR POLLACK Primary Care Unavailable EMMANUEL HOLDER MD Attending Unavailable LONNIE DO, DR POLLACK Primary Care Unavailable MILKA GUADALUPE, LAYNE Attending Unavailable GLORY GUADALUPE, DR KASPER Attending Unavailabl e LONNIE DO, DR POLLACK Primary Care Unavailable GIANNA GUADALUPE, DR GALO Attending Unavailable LONNIE DO, DR POLLACK Primary Care Unavailable GIANNA GUADALUPE, DR GALO Attending Unavailable LONNIE DO, DR POLLACK Primary Care Unavailable GIANNA GUADALUPE, DR GALO Attending Unavailable LONNIE DO, DR POLLACK Primary Care Unavailable KAYLIE MEJÍA Attending Unavailable LONNIE DO, DR POLLACK Primary Care Unavailable [facility] LOGGING OPERATIONS INSPECTOR-DAYTIME CAREGIVER, CHARMAINE Attending Unavailab le LONNIE DO, DR POLLACK Primary Care Unavailable LONNIE DO, DR POLLACK Attending Unavailable LONNIE DO, DR POLLACK Primary Care Unavailable LONNIE DO, DR POLLACK Attending Unavailable LONNIE DO, DR POLLACK Primary Care Unavailable [facility] LOGGING OPERATIONS INSPECTOR-DAYTIME CAREGIVER, TIFFANY Attending Unavaila ble LONNIE DO, DR POLLACK Primary Care Unavailable RESHMA GUADALUPE, DR MASON Attending Unavailabl e LONNIE DO, DR POLLACK Primary Care Unavailable LONNIE DO, DR POLLACK Attending Unavailable LONNIE DO, DR POLLACK Primary Care Unavailable RESHMA GUADALUPE, DR MASON Attending Unavailabl e LONNIE DO, DR POLLACK Primary Care Unavailable LONNIE DO, DR POLLACK Attending Unavailable LONNIE DO, DR POLLACK Primary Care Unavailable [employer] LOGGING OPERATIONS INSPECTOR-DAYTIME CAREGIVER, CHARMAINE Attending Unavailab le LONNIE DO, DR POLLACK Primary Care Unavailable [facility] LOGGING OPERATIONS INSPECTOR-DAYTIME CAREGIVER, CHARMAINE Attending Unavailab le LONNIE DO, DR POLLACK Primary Care Unavailable RESHMA GUADALUPE, DR MASON Attending Unavailabl e LONNIE DO, DR POLLACK Primary Care Unavailable FROMMEL , RUBY Attending Unavailable LONNIE DO, DR POLLACK Primary Care Unavailable DAVION GUADALUPE, DR TAYLOR Chamorro Consulting Dillon SMITH LOGGING OPERATIONS INSPECTOR-DAYTIME CAREGIVER, FRANNIE Chapman Attending U navailable LONNIE DO, DR POLLACK Primary Care Unavailable [facility] LOGGING OPERATIONS INSPECTOR-DAYTIME CAREGIVER, KYAW Attending Unava ilable LONNIE DO, DR POLLACK Primary Care Unavailable [facility] LOGGING OPERATIONS INSPECTOR-DAYTIME CAREGIVER, CHARMAINE Attending Unavailab le LONNIE DO, DR POLLACK Primary Care Unavailable LONNIE DO, DR POLLACK Attending Unavailable LONNIE DO, DR POLLACK Primary Care Unavailable GIANNA GUADALUPE, DR GALO Attending Unavailable LONNIE DO, DR POLLACK Primary Care Unavailable RUBY KHALIL DO Attending Unavailable LONNIE DO, DR POLLACK Primary Care Unavailable LONNIE KAUR, DR POLLACK Attending Unavailable LONNIE DO, DR POLLACK Primary Care Unavailable EZEKIEL QUIROS MD, I Attending Unavailable LONNIE DO, DR POLLACK Primary Care Unavailable CARMELLA GUADALUPE, YOUNG Consulting Unavailable Anuradha Lemus Unavailable Unavailable BARRETT HUFF Attending Unavailable JAKI FLEMING Primary Care Unavailable FABIOLA CROSS Attending Unavailable SELF Referring Unavailable JAKI FLEMING Primary Care Unavailable FABIOLA CROSS Referring Unavailable ALFRED FLEMINGRIE Jean Carlos Primary Care Unavailable Ha Luque MD Unavailable Lonnie KAUR, Dr. Pollack Primary Care Provider Reshma GUADALUPE, Dr. Mason Attending Provider CHARMAINE MANZANO Attending Unavailab le LONNIE KAUR, DR POLLACK Primary Care Unavailable LONNIE KAUR, DR POLLACK Primary Care Unavailable KAYLIE MAIER Attending Unav ailable KAYLIE MAIER Attending Unav ailable LONNIE KAUR, DR POLLACK Primary Care Unavailable EZEKIEL BURRIS MD Attending Unavailable LONNIE KAUR, DR POLLACK Primary Care Unavailable YG MUHAMMAD MD Attending Unavailable LONNIE KAUR, DR POLLACK Primary Care Unavailable GLORY GUADALUPE, DR KASPER Attending Unavailabl e LONNIE DO, DR POLLACK Primary Care Unavailable LONNIE KAUR, DR POLLACK Attending Unavailable LONNIE KAUR, DR POLLACK Admitting Unavailable DENISSE SALDIVAR MD Consulting Unavailable LONNIE KAUR, DR POLLACK Primary Care Unavailable Dr. Isabella Justice MD Referring Provider Alfred Flemingrie Primary Care Unavailable Mariel Garza Attending Unavailable Ezekiel Mcdowell Referring Unavailable Jaki Fleming Primary Care Unavailable Ezekiel Mcdowell Referring Unavailable Ezekiel Mcdowell Attending Unavailable Jaki Fleming Primary Care Unavailable Ezekiel Mcdowell Referring Unavailable Ezekiel Mcdowell Attending Unavailable Jaki Fleming Primary Care Unavailable Isabella Justice Attending Unavailable Jaki Fleming Primary Care Unavailable Isabella Justice Referring Unavailable Isabella Justice Attending Unavailable Jaki Fleming Referring Unavailable Jaki Fleming Attending Unavailable Jaki Fleming Primary Care Unavailable LONNIE, JAKI L Primary Care Unavailable HA LUQUE Referring Unavailable LONNIE, JAKI L Primary Care Unavailable REBEL, HA Attending Unavailable REBEL, HA Referring Unavailable LONNIE, JAKI L Primary Care Unavailable ABRAMMARTA, HA Referring Unavailable LONNIE, JAKI L Primary Care Unavailable ABRAMMARTA, HA Attending Unavailable CEMAMMARTA, HA Referring Unavailable LONNIE, JAKI L Primary Care Unavailable LONNIE, JAKI L Primary Care Unavailable ABRAMMARTA, HA Referring Unavailable ABRAMMARTA, HA Attending Unavailable LONNIE, JAKI L Primary Care Unavailable LONNIE, JAKI L Primary Care Unavailable ABRAMMARTA, HA Referring Unavailable LONNIE, JAKI L Primary Care Unavailable ABRAMMARTA, HA Attending Unavailable LONNIE, JAKI L Primary Care Unavailable ABRAMOVICClement, HA Attending Unavailable LONNIE, JAKI L Primary Care Unavailable LONNIE KAUR, DR POLLACK Primary Care Unavailable WALLY LYNCH, CHARMAINE Attending Unavailab le LONNIE KAUR, DR POLLACK Attending Unavailable LONNIE KAUR, DR POLLACK Primary Care Unavailable RESHMA GUADALUPE, DR MASON Attending Unavailabl e LONNIE KAUR, DR POLLACK Primary Care Unavailable LONNIE KAUR, DR POLLACK Primary Care Unavailable LONNIE KAUR, DR POLLACK Attending Unavailable LONNIE KAUR, DR POLLACK Primary Care Unavailable NADIYA LYNCH, ISHAAN ALTAMIRANO Attending Unavailable LONNIE KAUR, DR POLLACK Attending Unavailable LONNIE KAUR, DR POLLACK Primary Care Unavailable LONNIE KAUR, DR POLLACK Primary Care Unavailable EZEKIEL BURRIS MD Attending Unavailable LONNIE KAUR, DR POLLACK Attending Unavailable LONNIE KAUR, DR POLLACK Primary Care Unavailable RESHMA GUADALUPE, DR MASON Attending Unavailabl e LONNIE DO, DR POLLACK Primary Care Unavailable LONNIE KAUR, DR POLLACK Primary Care Unavailable LONNIE KAUR, DR POLLACK Attending Unavailable AMISH MAYER MD Attending Unavailable LONNIE KAUR, DR POLLACK Primary Care Unavailable LONNIE KAUR, DR POLLACK Primary Care Unavailable LONNIE KAUR, DR POLLACK Attending Unavailable Allergies Allergy Classification Reported Allergen(s) Allergy Type Date of Onset Reaction(s) Facility (12 sources) rosuvastatin; Translations: [ROSUVASTATIN] Drug Allergy 07-24-2020 Myalgia [facility] Medications Current Medications Medication Drug Class(es) Dates Sig (Normalized) Sig (Original) acetaminophen 500 mg / diphenhydrAMINE hydrochloride 25 mg oral tablet (20 sources) Histamine-1 Receptor Antagonist Start: 10-20-2021 take 1 tablet by mouth once daily at bedtime Tylenol PM Extra Strength oral tablet Dose = 2 tab(s), Oral, qHS, 0 Refill(s) Start Date: 02/12/22 Status: Ordered Medication Dispense Status: Completed Total Allowed Fills: 1 Fills Dispensed: 0 apixaban 5 mg oral tablet (20 sources) Factor Xa Inhibitor Start: 04-19-2024 Eliquis 5 mg oral tablet Dose : 5 mg = 1 tab(s), Oral, BID, 0 Refill(s), 97.3 Start Date: 04/19/24 Status: Ordered Medication Dispense Status: Completed Total Allowed Fills: 1 Fills Dispensed: 0 Start: 10-20-2023 Eliquis 2.5 mg oral tablet Dose : 2.5 mg = 1 tab(s), Oral, BID, PT INSTRUCTED BY SURGEON AND CARDIOLOGY CLEARANCE TO STOP/HOLD 3 DAYS PRIOR TO SURGERY. LAST DOSE 10/30/23, # 60 tab(s), 0 Refill(s), Pharmacy: [facility], 178, cm, 10/18/23 13:12:00 EST, Height, 95.3, kg, 10/18/23 7:16:00 EST, Dosing Weight Start Date: 10/20/23 Status: Ordered Start: 10-18-2023 Eliquis 2.5 mg oral tablet Dose : 2.5 mg = 1 tab(s), Oral, BID, PT INSTRUCTED BY SURGEON AND CARDIOLOGY CLEARANCE TO STOP/HOLD 3 DAYS PRIOR TO SURGERY. LAST DOSE 10/30/23, 0 Refill(s), 97.5 Start Date: 10/18/23 Status: Ordered Start: 08-28-2023 End: 09-11-2023 Eliquis 2.5 mg oral tablet D ose : 2.5 mg = 1 tab(s), Oral, BID, # 60 tab(s), 0 Refill(s) Start Date: 09/06/23 Status: Ordered ascorbic acid 500 mg oral tablet (10 sources) Vitamin C Start: 01-04-2023 take 1 tablet by mouth once daily ascorbic acid, vitamin C, (VITAMIN C) 500 mg tablet Take 500 mg by mouth once daily. 01/04/2023 Active Start: 01-04-2023 ascorbic acid, vitamin C, (VITAMIN C) 500 mg tablet Take by mouth every 24 hours. 01/04/2023 Active aspirin 81 mg chewable tablet (20 sources) Platelet Aggregation Inhibitor, Nonsteroidal Anti-inflammatory Drug Start: 07-01-2021 aspirin 81 mg ora l tablet, chewable Dose : 81 mg = 1 tab(s), Oral, qAM, # 30 tab(s), 0 Refill(s) Start Date: 07/01/21 Status: Ordered Start: 07-01-2021 aspirin 81 mg oral tablet, chewable Dose : 81 mg = 1 tab(s), Oral, Daily, # 30 tab(s), 0 Refill(s) Start Date: 07/01/21 Status: Ordered take 1 tablet by rajat th once daily aspirin, enteric coated (ASPIRIN, ENTERIC COATED) 81 mg EC tablet Take 81 mg by mouth once daily. Active betamethasone 0.5 mg/ml / clotrimazole 10 mg/ml topical cream (3 sources) Azole Antifungal, Corticosteroid Start: 02-20-2025 betamethasone-clotrimazole 0.05%-1% topical cream Apply 1 jyoti, Topical, BID, Apply to foreskin BID, # 45 gram(s), 1 Refill(s), Pharmacy: [facility], Cream, 180.3, cm, 02/20/25 14:27:00 EDT, Height, 89.9, kg, 02/20/25 14:27:00 EDT, Dosing Weight Start Date: 02/20/25 Status: Ordered Medication Dispense Status: Completed Quantity: 45.0 Unit: g Total Allowed Fills: 2 Fills Dispensed: 0 Indications: Malignant neoplasm of prostate; bicalutamide 50 mg oral tablet (5 sources) Androgen Receptor Inhibitor Start: 04-19-2023 Casodex 50 mg oral tablet Do se : 50 mg = 1 tab(s), Oral, q24h, # 30 tab(s), 0 Refill(s), Pharmacy: [facility], 180.3, cm, 03/28/23 13:07:00 EDT, Height, kg, 03/28/23 13:07:00 EDT, Dosing Weight Start Date: 04/19/23 Status: Ordered cefdinir 300 mg oral capsule (1 source) Cephalosporin Antibacterial Start: 09-23-2023 End: 09-28-2023 cefdinir 300 mg oral capsule Dose : 300 mg = 1 cap(s), Oral, q12h, X 5 day(s), # 10 cap(s), 0 Refill(s), 09/28/23 11:11:00 AM EST, Pharmacy: [facility], 180.3, cm, 09/20/23 23:28:00 EST, Height, 90.5, kg, 09/20/23 23:28:00 EST, Dosing Weight Start Date: 09/23/23 Stop Date: 09/28/23 Status: Ordered cephalexin 500 mg oral capsule (3 sources) Cephalosporin Antibacterial Start: 09-20-2023 End: 09-27-2023 cephalexin 500 mg oral capsu le Dose : 500 mg = 1 cap(s), Oral, q12h, X 7 day(s), # 14 cap(s), 0 Refill(s), 09/27/23 9:23:00 AM EST, 95.5 Start Date: 09/20/23 Stop Date: 09/27/23 Status: Ordered Start: 02-21-2023 End: 02-28-2023 cephalexin 500 mg oral capsu le Dose : 500 mg = 1 cap(s), Oral, q12h, X 7 day(s), # 14 cap(s), 0 Refill(s), 02/28/23 0:17:00 EDT, Rectal bleeding Kidney stone, 94.1 Start Date: 02/21/23 Stop Date: 02/28/23 Status: Ordered cholecalciferol 0.05 mg oral tablet (10 sources) Vitamin D take 1 tablet by mouth once daily cholecalciferol (VITAMIN D-3) 50 mcg (2,000 unit) tablet Take 5,000 Units by mouth once daily. Active ciprofloxacin 250 mg oral tablet (2 sources) Quinolone Antimicrobial Start: End: Cipro 250 mg oral tablet Dose : 250 mg = 1 tab(s), Oral, q12h, X 3 day(s), # 6 tab(s), 0 Refill(s), 11/06/23 3:48:00 PM EST, Pharmacy: [facility], Ureteral stone, 177.8, cm, 11/03/23 12:12:00 EST, Height, 91.2, kg, 11/03/23 12:12:00 EST, Dosing Weight Start Date: 11/03/23 Stop Date: 11/06/23 Status: Ordered CPAP (10 sources) CPAP daily at [facility]. Active CPAP Active CPAP diphenhydrAMINE hydrochloride 25 mg oral capsule (1 source) Histamine-1 Receptor Antagonist Start: 05-27-2024 End: 06-01-2024 Benadryl 25 mg oral capsule Dose : 25 mg = 1 cap(s), Oral, q4h, PRN Rash, X 5 day(s), # 20 cap(s), 0 Refill(s), 06/01/24 10:38:00 AM EDT Start Date: 05/27/24 Stop Date: 06/01/24 Status: Ordered doxycycline hyclate 100 mg oral capsule (2 sources) Tetracycline-class Drug Start: 02-11-2024 End: 02-18-2024 take 1 capsule by mouth twice daily doxycycline hyclate (VIBRAMYCIN) 100 mg capsule Indications: Cellulitis of left buttock Take 1 capsule (100 mg) by mouth two times a day for 7 days. 14 capsule 0 02/11/2024 02/18/2024 Active Dry Eye Relief ophthalmic solution (20 sources) Start: 10-18-2023 Dry Eye Relief ophthalmic solution Dose = 2 drop(s), Eyes, both, qDay, PRN as needed for dry eyes, 0 Refill(s) Start Date: 10/18/23 Status: Ordered empagliflozin 25 mg oral tablet (11 sources) Sodium-Glucose Cotransporter 2 Inhibitor Start: 09-07-2024 Jardiance 25 mg oral tablet Dose : 25 mg = 1 tab(s), Oral, qAM Start Date: 09/07/24 Status: Ordered Medication Dispense Status: Completed Total Allowed Fills: 1 Fills Dispensed: 0 esomeprazole 40 mg delayed release oral capsule (20 sources) Proton Pump Inhibitor Start: 11-14-2023 esomeprazole 40 mg oral delayed release capsule Dose : 40 mg = 1 cap(s), Oral, qDay, 0 Refill(s) Start Date: 11/14/23 Status: Ordered Medication Dispense Status: Completed Total Allowed Fills: 1 Fills Dispensed: 0 ferrous sulfate 325 mg oral tablet (20 sources) Start: 10-18-2023 ferrous sulfate (FEOSOL) 325 mg (65 mg iron) tablet 325 mg. 10/18/2023 Active Start: 10-18-2023 IRON (ferrous sulfate 325 mg) 65 mg oral tablet Dose : 325 mg = 1 tab(s), Oral, BIDM, 3 Refill(s) Start Date: 10/18/23 Status: Ordered Medication Dispense Status: Completed Total Allowed Fills: 1 Fills Dispensed: 0 furosemide 20 mg oral tablet (12 sources) Loop Diuretic Start: 02-21-2024 Lasix 20 mg oral tablet Dose : 20 mg = 1 tab(s), Oral, qDay, # 30 tab(s), 1 Refill(s), Pharmacy: [facility], 180.3, cm, 02/21/24 9:20:00 EDT, Height, kg, 02/21/24 9:20:00 EDT, Dosing Weight Start Date: 02/21/24 Status: Ordered glimepiride 1 mg oral tablet (20 sources) Sulfonylurea Start: 09-18-2017 Amaryl 1 mg oral tablet Dose : 1 mg = 1 tab(s), Oral, BIDM, 0 Refill(s) Start Date: 01/19/23 Status: Ordered glipiZIDE er 2.5 mg 24 hr extended release oral tablet (11 sources) Sulfonylurea Start: 09-07-2024 glipiZIDE 2.5 mg oral tablet, extended release Dose : 2.5 mg = 1 tab(s), Oral, BIDM Start Date: 09/07/24 Status: Ordered Medication Dispense Status: Completed Total Allowed Fills: 1 Fills Dispensed: 0 hydroxychloroquine sulfate 200 mg oral tablet (20 sources) Antimalarial, Antirheumatic Agent Start: 09-18-2017 hydroxychloroquine 200 mg oral tablet Dose : 200 mg = 1 tab(s), Oral, BID, 0 Refill(s) Start Date: 09/18/17 Status: Ordered take 1 tablet by mouth twice latesha ly hydrOXYchloroQUINE (PLAQUENIL) 200 mg tablet Take 200 mg by mouth two times a day. Active leflunomide 10 mg oral tablet (20 sources) Antirheumatic Agent Start: 07-01-2021 leflunomid e 10 mg oral tablet Dose : 10 mg = 1 tab(s), Oral, qAM, 0 Refill(s) Start Date: 11/16/22 Status: Ordered Medication Dispense Status: Completed Total Allowed Fills: 1 Fills Dispensed: 0 lisinopril 40 mg oral tablet (20 sources) Angiotensin Converting Enzyme Inhibitor Start: 01-19-2023 lisinopril 40 mg ora l tablet Dose : 40 mg = 1 tab(s), Oral, qAM, # 30 tab(s), 0 Refill(s) Start Date: 01/19/23 Status: Ordered Medication Dispense Status: Completed Quantity: 30.0 Unit: tab(s) Total Allowed Fills: 1 Fills Dispensed: 0 Start: 09-18-2017 lisinopril 20 mg oral tablet Dose : 40 mg = 2 tab(s), Oral, qDay, # 90 tab(s), 0 Refill(s) Start Date: 09/18/17 Status: Ordered loperamide hydrochloride 2 mg oral tablet (1 source) Opioid Agonist Start: 06-01-2023 End: 06-03-2023 take 1 tablet by mouth once, then take 1 tablet by mouth every four hours Imodium A-D 2 mg oral tablet Dose : 2 mg = 1 tab(s), Oral, q4h, X 2 day(s), # 12 tab(s), 0 Refill(s), 06/03/23 2:33:00 AM EDT Start Date: 06/01/23 Stop Date: 06/03/23 Status: Ordered metFORMIN hydrochloride 500 mg oral tablet (11 sources) Biguanide Start: 09-07-2024 metFORMIN 500 mg oral tablet (IR) Dose : 500 mg = 1 tab(s), Oral, BIDM Start Date: 09/07/24 Status: Ordered Medication Dispense Status: Completed Total Allowed Fills: 1 Fills Dispensed: 0 metFORMIN hydrochloride 1000 mg / SITagliptin 50 mg oral tablet (20 sources) Biguanide, Dipeptidyl Peptidase 4 Inhibitor Start: 10-18-2023 Janumet 50 / 1000 mg oral tablet Dose = 1 tab(s), Oral, BIDM, 0 Refill(s) Start Date: 10/18/23 Status: Ordered Start: 08-19-2022 take 1 tablet by mouth twice d aily Janumet 50 / 1000 mg oral tablet Dose = 1 tab(s), Oral, BID, 0 Refill(s) Start Date: 08/19/22 Status: Ordered Start: 09-18-2017 take 1 tablet by rajat th at breakfast Janumet 50 / 1000 mg extended release oral tablet (NF) Dose = 1 tab(s), Oral, breakfast/supper, 0 Refill(s) Start Date: 09/18/17 Status: Ordered 24 hr metoprolol succinate 25 mg extended release oral tablet (7 sources) beta-Adrenergic Wyatt Start: 06-20-2025 metopr olol succinate 25 mg oral TABLET extended release Dose : 25 mg = 1 tab(s), Oral, qDay, Do not crush or chew (controlled release), # 100 tab(s), 3 Refill(s), Pharmacy: [facility], 180.3, cm, 06/20/25 9:42:00 EDT, Height, kg, 06/20/25 9:42:00 EDT, Dosing Weight Start Date: 06/20/25 Status: Ordered Medication Dispense Status: Completed Quantity: 100.0 Unit: tab(s) Total Allowed Fills: 4 Fills Dispensed: 0 Start: 12-11-2024 metoprolol suc cinate 25 mg oral TABLET extended release Dose : 25 mg = 1 tab(s), Oral, qDay, Do not crush or chew (controlled release), # 90 tab(s), 3 Refill(s), Pharmacy: [facility], 181.3, cm, 12/11/24 10:06:00 EDT, Height, kg, 12/11/24 10:06:00 EDT, Dosing Weight Start Date: 12/11/24 Status: Ordered Quantity: 90.0 Unit: tab(s) Repeat number: 4 Start: 10-17-2024 metoprolol suc cinate 25 mg oral TABLET extended release Dose : 25 mg = 1 tab(s), Oral, qDay, Do not crush or chew (controlled release), # 30 tab(s), 3 Refill(s), Pharmacy: [facility], 180.3, cm, 09/26/24 14:13:00 EST, Height, kg, 09/26/24 14:13:00 EST, Dosing Weight Start Date: 10/17/24 Status: Ordered Quantity: 30.0 Unit: tab(s) Repeat number: 4 Multivitamin capsule (10 sources) take 1 capsule by mo uth once daily Multivitamin capsule Take 1 capsule by mouth once daily. Active take 1 capsule by mouth once latesha ly Multivitamin capsule Take 1 capsule by mouth once daily. 0 Active Multivitamin preparation (20 sources) Start: 10-20-2021 take 1 tablet by mouth once daily Multivitamin Dose = 1 tab(s), Oral, Daily, 0 Refill(s) Start Date: 10/20/21 Status: Ordered mupirocin 0.02 mg/mg topical ointment (11 sources) RNA Synthetase Inhibitor Antibacterial Start: 02-11-2024 End: 02-11-2024 mupirocin (BACTROBAN) 2 % ointment Indications: Multiple open wounds Apply 1 application to affected area three times a day. 30 g 02/11/2024 Active ondansetron 4 mg oral tablet (1 source) Serotonin-3 Receptor Antagonist Start: 06-01-2023 End: 06-03-2023 Zofran 4 mg oral tablet Dose : 4 mg = 1 tab(s), PO, q6h, X 2 day(s), # 8 tab(s), 0 Refill(s), 06/03/23 2:32:00 AM EDT Start Date: 06/01/23 Stop Date: 06/03/23 Status: Ordered pantoprazole 40 mg delayed release oral tablet (20 sources) Proton Pump Inhibitor Start: 09-18-2017 pantoprazole 40 mg oral enteric coated tablet Dose : 40 mg = 1 tab(s), Oral, qAM, 0 Refill(s) Start Date: 09/20/23 Status: Ordered saw palmetto oral capsule (14 sources) Start: 10-20-2021 take 1 tablet by mouth once daily saw palmetto oral capsule Dose = 1 tab(s), Oral, qDay, 0 Refill(s) Start Date: 10/20/21 Status: Ordered Start: 10-20-2021 saw palmetto o ral capsule 0 Refill(s) Start Date: 10/20/21 Status: Ordered saw palmetto/pumpkin/pyg/Zn/ B6 (SAW PALMETTO COMPLEX,PUMPK-ZN, ORAL) (10 sources) saw palmetto/pum pkin/pyg/Zn/B6 (SAW PALMETTO COMPLEX,PUMPK-ZN, ORAL) Take by mouth once daily. Active saw palmetto/pum pkin/pyg/Zn/B6 (SAW PALMETTO COMPLEX,PUMPK-ZN, ORAL) Take by mouth once daily. 0 Active SITagliptin 25 mg oral tablet (6 sources) Dipeptidyl Peptidase 4 Inhibitor take 1 tablet by mouth once daily SITagliptin phosphate (JANUVIA) 25 mg tablet Take 25 mg by mouth once daily. Active Sodium Chloride (11 sources) Start: Saline Mist 0.65% nasal spray Dose = 2 spray(s), Nasal, QID, PRN as needed for dry nasal passages Start Date: 09/07/24 Status: Ordered Medication Dispense Status: Completed Total Allowed Fills: 1 Fills Dispensed: 0 Start: 09-07-2024 Saline Mist 0. 65% nasal spray Dose = 2 spray(s), Nasal, QID, PRN as needed for dry nasal passages Start Date: 09/07/24 Status: Ordered Repeat number: 1 sulfamethoxazole 400 mg / trimethoprim 80 mg oral tablet (1 source) Dihydrofolate Reductase Inhibitor Antibacterial, Sulfonamide Antimicrobial Start: 05-02-2023 End: 05-07-2023 take 1 tablet by mouth twice daily Bactrim 400 mg-80 mg oral tablet Dose = 1 tab(s), Oral, BID, X 5 day(s), # 10 tab(s), 0 Refill(s), Pharmacy: [facility], 180.3, cm, 04/29/23 12:38:00 EDT, Height, 95.1, kg, 04/29/23 10:01:00 EDT, Dosing Weight Start Date: 05/02/23 Stop Date: 05/07/23 Status: Ordered tamsulosin hydrochloride 0.4 mg oral capsule (20 sources) alpha-Adrenergic Wyatt Start: 09-23-2023 tamsulosin 0.4 mg oral capsule Dose : 0.4 mg = 1 cap(s), Oral, qDayPC, # 30 cap(s), 0 Refill(s), Pharmacy: [facility], 180.3, cm, 09/20/23 23:28:00 EST, Height, kg, 09/20/23 23:28:00 EST, Dosing Weight Start Date: 09/23/23 Status: Ordered Start: 02-21-2023 Flomax 0.4 mg oral capsule Dose : 0.4 mg = 1 cap(s), Oral, qDay, # 30 cap(s), 0 Refill(s), Rectal bleeding Kidney stone Start Date: 02/21/23 Status: Ordered trimethoprim 100 mg oral tablet (12 sources) Dihydrofolate Reductase Inhibitor Antibacterial Start: 11-23-2023 trimethoprim 100 mg oral tablet Dose : 100 mg = 1 tab(s), Oral, q12h, # 2 tab(s), 0 Refill(s), Pharmacy: [facility], 177.8, cm, 11/14/23 10:20:00 EDT, Height, 95.9, kg, 11/14/23 10:20:00 EDT, Dosing Weight Start Date: 11/23/23 Status: Ordered Triveratol Gold (11 sources) Start: 09-07-2024 take 1 dose by mouth once daily Triveratol Gold Triveratol Gold, 1 EA, Oral, qDay, Herbal Antioxidant, 119.6 Start Date: 09/07/24 Status: Ordered Medication Dispense Status: Completed Total Allowed Fills: 1 Fills Dispensed: 0 Start: 09-07-2024 Triveratol Gol d Triveratol Gold, 1 EA, Oral, qDay, Herbal Antioxidant, 119.6 Start Date: 09/07/24 Status: Ordered Repeat number: 1 Tylenol PM Extra Strength oral tablet (2 sources) Start: 10-20-2021 take 1 tablet by mouth once daily at bedtime Tylenol PM Extra Strength oral tablet tab(s), Oral, qHS, 0 Refill(s) Start Date: 10/20/21 Status: Ordered Vision Essentials (11 sources) Start: 09-07-2024 take 1 dose by mouth once daily Vision Essentials Dose = 1 EA, Oral, qDay Start Date: 09/07/24 Status: Ordered Medication Dispense Status: Completed Total Allowed Fills: 1 Fills Dispensed: 0 Start: 09-07-2024 take 1 dose by mouth once katie y Vision Essentials Dose = 1 EA, Oral, qDay Start Date: 09/07/24 Status: Ordered Repeat number: 1 Vitamin C 1000 mg oral table t (20 sources) Start: 10-18-2023 Vitamin C 1000 mg oral tablet Dose : 1,000 mg = 1 tab(s), Oral, qDay, 0 Refill(s) Start Date: 10/18/23 Status: Ordered Vitamin C 500 mg oral tablet (11 sources) Start: 09-07-2024 Vitamin C 500 mg oral tablet Dose : 500 mg = 1 tab(s), Oral, BIDM Start Date: 09/07/24 Status: Ordered Medication Dispense Status: Completed Total Allowed Fills: 1 Fills Dispensed: 0 Start: 09-07-2024 Vitamin C 500 mg oral tablet Dose : 500 mg = 1 tab(s), Oral, BIDM Start Date: 09/07/24 Status: Ordered Repeat number: 1 Vitamin D3 (13 sources) Start: 10-20-2021 Vitamin D3 qDa y, 0 Refill(s) Start Date: 10/20/21 Status: Ordered Vitamin D3 50 mcg (2000 intl units) oral capsule (20 sources) Start: 01-19-2023 Vitamin D3 50 mcg (2000 intl units) oral capsule Dose : 50 mcg = 1 cap(s), Oral, qDay, 0 Refill(s) Start Date: 01/19/23 Status: Ordered Start: 01-19-2023 Vitamin D3 50 mcg (2000 intl units) oral capsule Dose : 50 mcg = 1 cap(s), Oral, qDay, # 60 cap(s), 0 Refill(s) Start Date: 01/19/23 Status: Ordered Vitamin E (20 sources) Start: 10-20-2021 vitamin E Oral , qDay, 0 Refill(s) Start Date: 10/20/21 Status: Ordered take 1 capsule by mouth once latesha ly Vitamin E, dl, acetate, (VITAMIN E) 400 unit capsule Take 400 Units by mouth once daily. Active vitamin E 400 intl units oral capsule (20 sources) Start: 01-19-2023 vitamin E 400 intl units oral capsule Dose : 400 International_Unit = 1 cap(s), Oral, Daily, 0 Refill(s) Start Date: 01/19/23 Status: Ordered Completed/Discontinued Medications Medication Drug Class(es) Dates Sig (Normalized) Sig (Original) 0.4 ml darbepoetin alverto 0.5 mg/ml prefilled syringe (1 source) Erythropoiesis-st imulating Agent Start: 04-17-2025 End: 04-17-2025 inject 1 dose by subcutaneous injection once 200 mcg, SUBCUTANEOUS, ONCE, 1 dose, On Tue04/17/25 at 1330, Protect from light REFRIGERATE Start: 04-17-2025 End: 04-17-2025 inject 1 dose by subcutaneous injection once 200 mcg, SUBCUTANEOUS, ONCE, 1 dose, On Tue04/17/25 at 1330, Protect from light REFRIGERATE triamcinolone acetonide 0.25 mg/ml topical cream (1 source) Corticosteroid Start: 11-20-2021 End: 12-04-2021 triamcinolone 0.025% topical cream Apply 1 jyoti, Topical, BID, # 15 gram(s), 0 Refill(s), Cream, 98.9 Start Date: 11/20/21 Stop Date: 12/04/21 Status: Ordered Problems Active Problems Problem Classification Problem Date Documented Da te Episodic/Chronic Abdominal hernia (20 sources) Intra-abdominal hernia; Translations: [Hernia of anterior abdominal wall] Onset: 5 09-18-2017 Episodic Abdominal pain (1 source) Lower abdominal pain; Translations: [Lower abdominal pain, unspecified] Episodic Acute and unspecified renal failure (3 sources) Acute renal failure syndrome; Translations: [Acute kidney failure, unspecified] Onset: 3 Episodic Anxiety disorders (1 source) Anxiety disorder; Translations: [Anxiety disorder, unspecified] Onset: 5 Chronic Calculus of urinary tract (20 sources) Kidney stone; Translations: [Calculus of kidney] Onset: 3 Episodic Cancer of prostate (16 sources) Malignant tumor of prostate; Translations: [Malignant neoplasm of prostate] Onset: 3 02-10-2023 Chronic Cancer of prostate (1 source) Personal history of malignant neoplasm of prostate; Translations: [Personal history of malignant neoplasm of prostate] Episodic Cardiac dysrhythmias (4 sources) Unspecified atrial fibrillation; Translations: [Unspecified atrial fibrillation] Onset: 3 Chronic Chronic kidney disease (13 sources) Chronic kidney disease; Translations: [Chronic kidney disease, unspecified] Onset: 1 Chronic Chronic kidney disease (1 source) Chronic kidney disease; Translations: [Stage 3a chronic kidney disease (HCC)] Onset: 1 Congestive heart failure; nonhypertensive (17 sources) Congestive heart failure; Translations: [Chronic diastolic heart failure] Onset: 5 09-18-2017 Chronic Coronary atherosclerosis and other heart disease (20 sources) Coronary arteriosclerosis; Translations: [Coronary atherosclerosis] Onset: 1 08-19-2022 Chronic Coronary atherosclerosis and other heart disease (1 source) Aortocoronary bypass graft present; Translations: [Presence of aortocoronary bypass graft] Onset: 5 Episodic Deficiency and other anemia (1 source) Pancytopenia; Translations: [Other pancytopenia] 12-14-2024 Chronic Deficiency and other anemia (12 sources) Anemia; Translations: [Anemia, unspecified] Onset: 5 Episodic Diabetes mellitus with complications (8 sources) Chronic kidney disease due to type 2 diabetes mellitus; Translations: [Type 2 diabetes mellitus with diabetic chronic kidney disease] Onset: 4 Chronic Diabetes mellitus without complication (20 sources) Diabetes mellitus; Translations: [Type 2 diabetes mellitus] Onset: 1 09-18-2017 Chronic Diseases of white blood cells (1 source) Leukopenia; Translations: [Decreased white blood cell count, unspecified] Onset: 5 Chronic Disorders of lipid metabolism (14 sources) Mixed hyperlipidemia; Translations: [Mixed hyperlipidemia] Onset: 1 Chronic Diverticulosis and diverticulitis (1 source) Diverticula of intestine; Translations: [Diverticulosis of large intestine without perforation or abscess without bleeding] Onset: 5 Chronic Esophageal disorders (20 sources) Gastroesophageal reflux disease; 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] Onset: 5 07-28-2020 Chronic Essential hypertension (13 sources) Benign hypertension; Translations: [Essential (primary) hypertension] Onset: 1 08-26-2021 Chronic Gastrointestinal hemorrhage (1 source) Hemorrhage of rectum and anus; Translations: [Hemorrhage of anus and rectum] Onset: 3 Episodic Genitourinary symptoms and ill-defined conditions (1 source) Unspecified urinary incontinence; Translations: [Unspecified urinary incontinence] Onset: 5 Chronic Genitourinary symptoms and ill-defined conditions (20 sources) Nocturia; Translations: [H/O: urinary disease] Onset: 4 08-06-2020 Episodic Comment on above: 09/2017 - Proteus urinary retention Heart valve disorders (12 sources) Prosthetic heart valve in situ; Translations: [Presence of prosthetic heart valve] Onset: 2 Chronic Hyperplasia of prostate (20 sources) Benign prostatic hyperplasia; Translations: [Nocturia due to benign prostatic hypertrophy] Onset: 5 07-28-2020 Chronic Hypertension with complications and secondary hypertension (1 source) Chronic kidney disease due to hypertension; Translations: [Hypertensive chronic kidney disease with stage 1 through stage 4 chronic kidney disease, or unspecified chronic kidney disease] Chronic Inflammatory conditions of male genital organs (15 sources) Balanitis; Translations: [Balanitis] Onset: 5 07-20-2024 Chronic Nutritional deficiencies (2 sources) Vitamin D deficiency; Translations: [Vitamin D deficiency, unspecified] Onset: 5 Chronic Nutritional deficiencies (1 source) Iron deficiency; Translations: [Iron deficiency] Onset: 5 Episodic Osteoarthritis (2 sources) Osteoarthrosis involving multiple sites but not designated as generalized; Translations: [Polyosteoarthritis, unspecified] Onset: 5 Chronic Other aftercare (3 sources) Long-term current use of drug therapy; Translations: [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 therapy] Onset: 5 Episodic Other aftercare (1 source) Long-term current use of anticoagulant; Translations: [senior living (current) use of anticoagulants] Onset: 5 Episodic Other connective tissue disease (15 sources) Diastasis recti 07-01-2021 Episodic Other connective tissue disease (20 sources) Synovial cyst 02-16-2022 Episodic Other connective tissue disease (1 source) Muscle weakness; Translations: [Muscle weakness (generalized)] Onset: 5 Episodic Other connective tissue disease (1 source) Dupuytren's disease of palm; Translations: [Palmar fascial fibromatosis [Dupuytren]] Onset: 5 Episodic Other connective tissue disease (1 source) H/O: musculoskeletal disease; Translations: [Personal history of other diseases of the musculoskeletal system and connective tissue] Onset: 5 Episodic Other connective tissue disease (1 source) Cyst of bursa; Translations: [Other bursal cyst, unspecified site] Onset: 5 Episodic Other connective tissue disease (1 source) Diastasis of muscle; Translations: [Separation of muscle (nontraumatic), other site] Onset: Episodic Other connective tissue disease (2 sources) Bicipital tendinitis, left shoulder; Translations: [Bicipital tenosynovitis] Onset: 5 11-29-2024 Episodic Other diseases of kidney and ureters (20 sources) Renal insufficiency 11-16-2022 Episodic Comment on above: Cr 1.4 from 1.5 Other diseases of kidney and ureters (20 sources) Obstruction of ureter 03-01-2023 Episodic Other diseases of kidney and ureters (1 source) Hydronephrosis; Translations: [Unspecified hydronephrosis] Onset: 4 Episodic Other diseases of kidney and ureters (2 sources) Stricture of ureter; Translations: [Crossing vessel and stricture of ureter without hydronephrosis] Onset: 5 Episodic Other diseases of kidney and ureters (1 source) Disorder of kidney and/or ureter; Translations: [Disorder of kidney and ureter, unspecified] Onset: 5 Episodic Other diseases of veins and lymphatics (20 sources) Peripheral venous insufficiency; Translations: [Venous insufficiency (chronic) (peripheral)] Onset: 5 03-28-2023 Episodic Other gastrointestinal disorders (1 source) Dysphagia; Translations: [Dysphagia, unspecified] Onset: 5 Episodic Other injuries and conditions due to external causes (2 sources) Injury of left upper arm; Translations: [Unspecified injury of left shoulder and upper arm, initial encounter] 11-29-2024 Episodic Other injuries and conditions due to external causes (1 source) Unspecified injury of left shoulder and upper arm, initial encounter; Translations: [Injury of left upper arm, initial encounter] Onset: 5 Episodic Other liver diseases (1 source) Steatosis of liver; Translations: [Fatty (change of) liver, not elsewhere classified] Onset: 5 Chronic Other lower respiratory disease (10 sources) H/O: respiratory disease 02-12-2022 Episodic Other non-traumatic joint disorders (1 source) Pain in right knee; Translations: [Pain of right knee joint] Onset: 3 Episodic Other screening for suspected conditions (not mental disorders or infectious disease) (20 sources) CT of chest abnormal; Translations: [Abnormal findings on diagnostic imaging of other specified body structures] Onset: 1 08-26-2021 Chronic Other screening for suspected conditions (not mental disorders or infectious disease) (20 sources) Raised prostate specific antigen; Translations: [Blood gases abnormal] Onset: 5 07-28-2020 Episodic Other skin disorders (1 source) Impaired skin integrity; Translations: [Other skin changes] Onset: 5 Episodic Peripheral and visceral atherosclerosis (1 source) Atherosclerosis of aorta; Translations: [Atherosclerosis of aorta] Onset: 4 Chronic Phlebitis; thrombophlebitis and thromboembolism (20 sources) H/O: thrombosis; Translations: [History of thromboembolism of vein] Onset: 5 03-28-2023 Episodic Residual codes; unclassified (1 source) Sleep apnea; Translations: [Sleep apnea, unspecified] Onset: 5 Chronic Residual codes; unclassified (1 source) Dependence on enabling machine or device; Translations: [Dependence on other enabling machines and devices] Onset: 5 Chronic Residual codes; unclassified (20 sources) Family history of prostate cancer 01-19-2023 Episodic Residual codes; unclassified (2 sources) Family history of cancer; Translations: [Family history of malignant neoplasm of prostate] Onset: 5 Episodic Residual codes; unclassified (2 sources) H/O: radiation exposure; Translations: [Personal history of irradiation] Onset: 5 Episodic Residual codes; unclassified (1 source) Personal history finding; Translations: [Personal history of other medical treatment] Onset: 5 Episodic Residual codes; unclassified (1 source) Dental prosthetic device in situ; Translations: [Presence of dental prosthetic device (complete) (partial)] Onset: 5 Episodic Residual codes; unclassified (2 sources) H/O: Disorder; Translations: [Personal history of other specified conditions] Onset: 5 Episodic Respiratory failure; insufficiency; arrest (adult) (1 source) Dependence on supplemental oxygen; Translations: [Dependence on supplemental oxygen] Onset: 5 Chronic Retinal detachments; defects; vascular occlusion; and retinopathy (18 sources) Degenerative disorder of macula ; Translations: [Age related macular degeneration] Onset: 5 03-28-2023 Chronic Rheumatoid arthritis and related disease (3 sources) Inflammatory polyarthropathy; Translations: [Inflammatory polyarthropathy] Onset: 5 Chronic Transient cerebral ischemia (1 source) Transient cerebral ischemia; Translations: [Transient cerebral ischemic attack, unspecified] Onset: 5 Chronic Unclassified (1 source) Unknown / UNK(Unknown) Onset: 8 Unclassified (5 sources) Screening status 11-16-2022 Unclassified (14 sources) Drug therapy finding 07-17-2024 Unclassified (1 source) Established Patient Onset: 5 Urinary tract infections (6 sources) Urinary tract infectious disease; Translations: [Urinary tract infection, site not specified] Onset: 3 Episodic Past or Other Problems Problem Classification Problem Date Documented Da te Episodic/Chronic Blindness and vision defects (1 source) Diplopia; Translations: [Diplopia] Onset: 09-20-2024 Episodic Deficiency and other anemia (4 sources) Other specified anemias; Translations: [Other specified anemias] Onset: 09-27-2023 Episodic Deficiency and other anemia (1 source) Anemia, unspecified; Translations: [Anemia, unspecified type] Onset: 01-04-2025 Episodic Other injuries and conditions due to external causes (2 sources) Unspecified multiple injuries, initial encounter; Translations: [Open wound(s) (multiple) of unspecified site(s), without mention of complication] Onset: 02-11-2024 02-11-2024 Episodic Other lower respiratory disease (10 sources) Dyspnea; Translations: [Shortness of breath] Onset: 08-26-2021 08-26-2021 Episodic Residual codes; unclassified (20 sources) Past history of procedure; Translations: [Personal history of other medical treatment] Onset: 08-22-2018 08-26-2021 Episodic Skin and subcutaneous tissue infections (2 sources) Cellulitis of buttock; Translations: [Cellulitis of buttock] Onset: 02-11-2024 02-11-2024 Episodic Unclassified (1 source) R30.0,R31.21 Onset: 09-15-2017 Unclassified (2 sources) Injury of left upper arm 11-29-2024 Results Test Name Value Interpretation Reference Range Facility XR SPINE LUMBAR AP/LATon XR SPINE LUMBAR AP/LAT ORIGINAL EXAMINATION: 3 XRAY VIEWS OF THE LUMBAR SPINE07/09/2025 9:05 am LUMBAR SPINE 2 or 3 VIEWS COMPARISON: None HISTORY: ORDERING SYSTEM PROVIDED HISTORY: Reason for Exam: Lumbago with sciatica, left side FINDINGS: Dextroconvex curvature seen of the visualized thoracolumbar spine. Slight retrolisthesis seen of L2 with respect L3. Grade 1 anterolisthesis of L4 on L5 by 7 mm noted. Vertebral body heights are maintained. Disc height loss and spurring is most severe from T12-L1 through L3-4. Narrowing of the inter spinous distance is visualized. Facet arthropathy is most prevalent in the lower lumbar spine. Vascular calcifications seen. IMPRESSION: Moderate multilevel degenerative changes. No compression deformities. Interpreted by: Hector Damico MD Preliminary Report By: Hector Damico MD Electronically signed By Hector Damico MD Dictated Date: 07/10/2025 11:49:19 AM Prelim Date: 07/10/2025 11:50:47 AM Sign Date: 07/10/2025 11:50:47 AM Ordering Provider: ISHAAN HEARN Normal [facility] CBC W Auto Differential pane l (Bld)on 06-27-2025 Basophils (Bld) [#/Vol] 10*3/uL Normal <0.11 [facility] Comment on above: Order Comment: Speci men Type: BLOOD SPECIMENOrdering Facility: [facility] Address: [address] [place] [address] [place] [address] Performed By: #### 5 7021-8 ####[facility] MILLWNCLIA [id number] [place] [address] [place] Basophils/100 WBC (Bld) 0.4 % Normal [facility] Comment on above: Order Comment: Speci men Type: BLOOD SPECIMENOrdering Facility: [facility] Address: [address] [place] [address] Performed By: #### 5 7021-8 ####[facility] HOSPITALLIA [id number] [place] [address] [place] Differential cell count method Nom (Bld) Auto Normal [facility] Comment on above: Order Comment: Speci men Type: BLOOD SPECIMENOrdering Facility: [facility] Address: [address] [place] [address] Performed By: #### 5 7021-8 ####[facility]ITAL[facility] [id number] [place] [address] [place] Eosinophils (Bld) [#/Vol] 0.14 10*3/uL Normal <0.46 [facility] Comment on above: Order Comment: Speci men Type: BLOOD SPECIMENOrdering Facility: [facility] Address: [address] [place] [address] Performed By: #### 5 7021-8 ####[facility] [id number] [place] [address] [place] Eosinophils/100 WBC (Bld) 2.8 % Normal [facility] Comment on above: Order Comment: Speci men Type: BLOOD SPECIMENOrdering Facility: [facility] Address: [address] [place] [address] Performed By: #### 5 7021-8 ####[facility]ITALNCLIA [id number] [place] [address] [place] Erythrocyte distribution width (RBC) [Ratio] 15.8 % High 11.5-15.0 [facility] Comment on above: Order Comment: Speci men Type: BLOOD SPECIMENOrdering Facility: [facility] Address: [address] [place] [address] Performed By: #### 5 7021-8 ####[facility]ITALNCLA[facility] [id number] [place] [address] [place] Hematocrit (Bld) [Volume fraction] 31.8 % Low 39.0-51.0 [facility] Comment on above: Order Comment: Speci men Type: BLOOD SPECIMENOrdering Facility: [facility] Address: [address] [place] [address] Performed By: #### 5 7021-8 ####[facility] [id number] [place] [address] [place] Hemoglobin (Bld) [Mass/Vol] 10.1 g/dL Low 13.0-17.0 [facility] Comment on above: Order Comment: Speci men Type: BLOOD SPECIMENOrdering Facility: [facility] Address: [address] [place] [address] Performed By: #### 5 7021-8 ####[facility] [id number] [place] [address] [place] Immature granulocytes (Bld) [#/Vol] 10*3/uL Normal <0.10 [facility] Comment on above: Order Comment: Speci men Type: BLOOD SPECIMENOrdering Facility: [facility] Address: [address] [place] [address] Performed By: #### 5 7021-8 ####[facility] [id number] [place] [address] [place] Immature granulocytes/100 WBC (Bld) 0.2 % Normal [facility] Comment on above: Order Comment: Speci men Type: BLOOD SPECIMENOrdering Facility: [facility] Address: [address] [place] [address] Performed By: #### 5 7021-8 ####[facility] AMBERCHIPA [id number] [place] [address] [place] Lymphocytes (Bld) [#/Vol] 0.39 10*3/uL Low 1.00-4.00 [facility] Comment on above: Order Comment: Speci men Type: BLOOD SPECIMENOrdering Facility: [facility] Address: [address] [place] [address] Performed By: #### 5 7021-8 ####[facility]ITALEDGARLAKEVIEW [facility] [id number] [place] [address] [place] Lymphocytes/100 WBC (Bld) 7.7 % Normal [facility] Comment on above: Order Comment: Speci men Type: BLOOD SPECIMENOrdering Facility: [facility] Address: [address] [place] [address] Performed By: #### 5 7021-8 ####[facility]PITALNCJOHN [id number] [place] [address] [place] MCH (RBC) [Entitic mass] 28.5 pg Normal 26.0-34.0 [facility] Comment on above: Order Comment: Speci men Type: BLOOD SPECIMENOrdering Facility: [facility] Address: [address] [place] [address] Performed By: #### 5 7021-8 ####[facility]ITALNCLIA [id number] [place] [address] [place] MCHC (RBC) [Mass/Vol] 31.8 g/dL Normal 30.5-36.0 [facility] Comment on above: Order Comment: Speci men Type: BLOOD SPECIMENOrdering Facility: [facility] Address: [address] [place] [address] Performed By: #### 5 7021-8 ####[facility] AMBERWNCLIA [id number] [place] [address] [place] MCV (RBC) [Entitic vol] 89.8 fL Normal 80.0-100.0 [facility] Comment on above: Order Comment: Speci men Type: BLOOD SPECIMENOrdering Facility: [facility] Address: [address] [place] [address] Performed By: #### 5 7021-8 ####[facility]ITALA [id number] [place] [address] [place] Monocytes (Bld) [#/Vol] 0.63 10*3/uL Normal <0.87 [facility] Comment on above: Order Comment: Speci men Type: BLOOD SPECIMENOrdering Facility: [facility] Address: [address] [place] [address] Performed By: #### 5 7021-8 ####[facility] [id number] [place] [address] [place] Monocytes/100 WBC (Bld) 12.5 % Normal [facility] Comment on above: Order Comment: Speci men Type: BLOOD SPECIMENOrdering Facility: [facility] Address: [address] [place] [address] Performed By: #### 5 7021-8 ####[facility]ITALA [id number] [place] [address] [place] Neutrophils (Bld) [#/Vol] 3.85 10*3/uL Normal 1.45-7.50 [facility] Comment on above: Order Comment: Speci men Type: BLOOD SPECIMENOrdering Facility: [facility] Address: [address] [place] [address] Performed By: #### 5 7021-8 ####[facility] HOSPITALLIA [id number] [place] [address] [place] Neutrophils/100 WBC (Bld) 76.4 % Normal [facility] Comment on above: Order Comment: Speci men Type: BLOOD SPECIMENOrdering Facility: [facility] Address: [address] [place] [address] Performed By: #### 5 7021-8 ####[facility] [id number] [place] [address] [place] Nucleated RBC (Bld) [#/Vol] 10*3/uL Normal <0.01 [facility] Comment on above: Order Comment: Speci men Type: BLOOD SPECIMENOrdering Facility: [facility] Address: [address] [place] [address] Performed By: #### 5 7021-8 ####[facility] [id number] [place] [address] [place] Nucleated RBC/100 WBC (Bld) [Ratio] 0.0 /100 WBC Normal [facility] Comment on above: Order Comment: Speci men Type: BLOOD SPECIMENOrdering Facility: [facility] Address: [address] [place] [address] Performed By: #### 5 7021-8 ####[facility] [facility] [id number] [place] [address] [place] Platelet mean volume (Bld) [Entitic vol] 9.6 fL Normal 9.0-12.7 [facility] Comment on above: Order Comment: Speci men Type: BLOOD SPECIMENOrdering Facility: [facility] Address: [address] [place] [address] Performed By: #### 5 7021-8 ####[facility] [id number] [place] [address] [place] Platelets (Bld) [#/Vol] 131 10*3/uL Low 150-400 [facility] Comment on above: Order Comment: Speci men Type: BLOOD SPECIMENOrdering Facility: [facility] Address: [address] [place] [address] Performed By: #### 5 7021-8 ####[facility] BRADY CLARKSAINT LOUISVILLENCLIA [id number] [place] [address] [place] RBC (Bld) [#/Vol] 3.54 10*6/uL Low 4.20-6.00 [facility] Comment on above: Order Comment: Speci men Type: BLOOD SPECIMENOrdering Facility: [facility] Address: [address] [place] [address] Performed By: #### 5 7021-8 ####[facility] AMBERSAINT LOUISVILLENCLIA [id number] [place] [address] [place] WBC (Bld) [#/Vol] 5.04 10*3/uL Normal 3.70-11.00 [facility] Comment on above: Order Comment: Speci men Type: BLOOD SPECIMENOrdering Facility: [facility] Address: [address] [place] [address] Performed By: #### 5 7021-8 ####[facility]OSPITALIBETHA [id number] [place] [address] [place] CNOVSPon 06-27-2025 OVS Visit (SP) Office (CHARISMA) -------- JAYLEN GALAVIZ ([id number]) 1935 M Date Time Provider Department 06/27/25 12:00 PM HA LUQUE During your visit today, we recorded the following information about you: Temperature Pulse Blood pressure Weight 97.1 degrees 53/minute 112/55 90.7 kg Ha Luque MD 06/27/2025 12:41 PM Signed (Elements copied from my note dated May 16, 2025, have been reviewed and updated where appropriate, and all reflect current assessment and medical decision making from today's encounter, June 27, 2025) HISTORY OF PRESENT ILLNESS: Jaylen Galaviz is a 89 year old male referred for pancytopenia. Had RT to prostate 2022 at [facility]. WBC 2.7-3.1 in September, hgb 9.5 to 10.2. platelts ok., cbc overall pretty stable over last year. Colonoscopy about a year ago Seen initially for evaluation. Notes no bleeding or black stool. Here for follow up , reviewed labs. All stable, probably not needing epo at this time. CrCl 55 CKD stage 3a CLINICAL IMPRESSION: Anemia, leukopenia mild, jozefley relates to prior prostate radiation, counts have been pretty stable over the past year or more. Suspect renal component of anemia. RECOMMENDATION/PLAN: 1. Hold Aranesp today, recheck in 8 weeks with possible aranesp Written and verbal health teaching given to patient, patient verbalizes understanding and agrees with treatment plan. 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 Benign hypertension Bilateral leg pain CAD in [place] artery Centrilobular emphysema (HCC) CKD (chronic kidney disease) stage 3, GFR 30-59 ml/min (HCC) Diabetes mellitus (HCC) MAZARIEGOS (dyspnea on exertion) Dysuria Elevated brain natriuretic peptide (BNP) level Fatigue Fatty infiltration of liver Ground glass opacity present on imaging of lung History of echocardiogram 09/30/2017 EF 55-60% grade 1 diastolic dysfunction aortic valve bioprosthesis is present and functioning normally mild TR History of echocardiogram 08/18/2020 concentric LVH EF 55-60% grade 1 diastolic dysfunction mild MR History of echocardiogram 08/18/2020 EF 55-60% grade 1 diastolic dysfunction normally functioning bioprosthetic valve mean gradient 13mmHg mild MR History of stress test 08/22/2018 no evidence of ischemia or infarction abnormal septal motion EF 59% Lung nodule seen on imaging study Mixed hyperlipidemia Myalgia Obesity (BMI 30-39.9) ROBERT (obstructive sleep apnea) PMR (polymyalgia rheumatica) (HCC) Pulmonary fibrosis (HCC) 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 St 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 HUERTA to the LAD SVG to the circumflex SOB (shortness of breath) Venous insufficiency of both lower extremities Vitamin D deficiency PAST SURGICAL HISTORY Procedure Laterality Date CATARACT EXTRACTION HX Bilateral CORONARY ARTERY BYPASS GRAFT REVISE MEDIAN N/CARPAL TUNNEL SURG Right FAMILY HISTORY Problem Relation Age of Onset Heart Mother Heart Father Social History Tobacco Use Smoking status: Never Passive exposure: Never Smokeless tobacco: Never Vaping Use Vaping status: Never Used Substance Use Topics Alcohol use: Not Currently Drug use: Never ALLERGIES: ALLERGIES Allergen Reactions Rosuvastatin Myalgia CURRENT OUTPATIENT MEDICATIONS: acetaminophen (TYLENOL EXTRA STRENGTH) 500 mg tablet Take 500 mg by mouth every 8 hours as needed. leflunomide (ARAVA) 10 mg tablet Take 10 mg by mouth once daily. glimepiride (AMARYL) 1 mg tablet Take 1 mg by mouth two times a day with meals. SITagliptin-metFORMIN (JANUMET) 50-1,000 mg per tablet Take 1 tablet by mouth twice daily with meals. lisinopril (ZESTRIL, PRINIVIL) 40 mg tablet Take 40 mg by mouth once daily. cholecalciferol (VITAMIN D-3) 50 mcg (2,000 unit) tablet Take 5,000 Units by mouth once daily. SITagliptin phosphate (JANUVIA) 25 mg tablet Take 25 mg by mouth once daily. (Patient not taking: Reported on 04/17/2025) ascorbic acid, vitamin C, (VITAMIN C) 500 mg tablet Take 500 mg by mouth once daily. (Patient not taking: Reported on 04/17/2025) ferrous sulfate (FEOSOL) 325 mg (65 mg iron) tablet 325 mg. (Patient not taking: Reported on 12/14/2024) mupirocin (BACTROBAN) 2 % ointment Apply 1 application to affected area three times a day. (Patient not taking: Reported on 12/14/2024) aspirin, enteric coated (ASPIRIN, ENTERIC COATED) 81 mg EC tablet Take 81 mg by mouth once daily. (Patient not taking: Reported on 12/14/2024) CPAP daily at bedtime. Multivitamin capsule Take 1 capsule by mouth once daily. (Patient not taking: Reported on (more content not included)... Normal [facility] CBC W Auto Differential pane l (Bld)on 05-16-2025 Basophils (Bld) [#/Vol] 0.03 10*3/uL Normal <0.11 [facility] Comment on above: Order Comment: Speci men Type: BLOOD SPECIMENOrdering Facility: [facility] Address: [address] [place] [address] Performed By: #### 5 7021-8 ####[facility]ITALA [id number] [place] [address] [place] Basophils/100 WBC (Bld) 0.8 % Normal [facility] Comment on above: Order Comment: Speci men Type: BLOOD SPECIMENOrdering Facility: [facility] Address: [address] [place] [address] Performed By: #### 5 7021-8 ####[facility]ITALA [id number] [place] [address] [place] Differential cell count method Nom (Bld) Auto Normal [facility] Comment on above: Order Comment: Speci men Type: BLOOD SPECIMENOrdering Facility: [facility] Address: [address] [place] [address] Performed By: #### 5 7021-8 ####[facility]ITALA [id number] [place] [address] [place] Eosinophils (Bld) [#/Vol] 0.13 10*3/uL Normal <0.46 [facility] Comment on above: Order Comment: Speci men Type: BLOOD SPECIMENOrdering Facility: [facility] Address: [address] [place] [address] Performed By: #### 5 7021-8 ####[facility] HOSPITALLIA [id number] [place] [address] [place] Eosinophils/100 WBC (Bld) 3.6 % Normal [facility] Comment on above: Order Comment: Speci men Type: BLOOD SPECIMENOrdering Facility: [facility] Address: [address] [place] [address] Performed By: #### 5 7021-8 ####[facility] [id number] [place] [address] [place] Erythrocyte distribution width (RBC) [Ratio] 16.6 % High 11.5-15.0 [facility] Comment on above: Order Comment: Speci men Type: BLOOD SPECIMENOrdering Facility: [facility] Address: [address] [place] [address] Performed By: #### 5 7021-8 ####[facility]ITALNCLAKEVIEW [facility] [id number] [place] [address] [place] Hematocrit (Bld) [Volume fraction] 32.4 % Low 39.0-51.0 [facility] Comment on above: Order Comment: Speci men Type: BLOOD SPECIMENOrdering Facility: [facility] Address: [address] [place] [address] Performed By: #### 5 7021-8 ####[facility] [id number] [place] [address] [place] Hemoglobin (Bld) [Mass/Vol] 10.2 g/dL Low 13.0-17.0 [facility] Comment on above: Order Comment: Speci men Type: BLOOD SPECIMENOrdering Facility: [facility] Address: [address] [place] [address] Performed By: #### 5 7021-8 ####[facility] [id number] [place] [address] [place] Immature granulocytes (Bld) [#/Vol] 0.03 10*3/uL Normal <0.10 [facility] Comment on above: Order Comment: Speci men Type: BLOOD SPECIMENOrdering Facility: [facility] Address: [address] [place] [address] Performed By: #### 5 7021-8 ####[facility] AMBERROSIELIA [id number] [place] [address] [place] [facility] Immature granulocytes/100 WBC (Bld) 0.8 % Normal [facility] Comment on above: Order Comment: Speci men Type: BLOOD SPECIMENOrdering Facility: [facility] Address: [address] [place] [address] Performed By: #### 5 7021-8 ####[facility]ITALNCLIA [id number] [place] [address] [place] Lymphocytes (Bld) [#/Vol] 0.38 10*3/uL Low 1.00-4.00 [facility] Comment on above: Order Comment: Speci men Type: BLOOD SPECIMENOrdering Facility: [facility] Address: [address] [place] [address] Performed By: #### 5 7021-8 ####[facility]OSPITALNCLIA [id number] [address] [place] Lymphocytes/100 WBC (Bld) 10.6 % Normal [facility] Comment on above: Order Comment: Speci men Type: BLOOD SPECIMENOrdering Facility: [facility] Address: [address] [place] [address] Performed By: #### 5 7021-8 ####[facility] HOSPITALLIA [id number] [place] [address] [place] MCH (RBC) [Entitic mass] 28.5 pg Normal 26.0-34.0 [facility] Comment on above: Order Comment: Speci men Type: BLOOD SPECIMENOrdering Facility: [facility] Address: [address] [place] [address] Performed By: #### 5 7021-8 ####[facility] HOSPITALLIA [id number] [place] [address] [place] MCHC (RBC) [Mass/Vol] 31.5 g/dL Normal 30.5-36.0 [facility] Comment on above: Order Comment: Speci men Type: BLOOD SPECIMENOrdering Facility: [facility] Address: [address] [place] [address] Performed By: #### 5 7021-8 ####[facility] [id number] [place] [address] [place] MCV (RBC) [Entitic vol] 90.5 fL Normal 80.0-100.0 [facility] Comment on above: Order Comment: Speci men Type: BLOOD SPECIMENOrdering Facility: [facility] Address: [address] [place] [address] Performed By: #### 5 7021-8 ####[facility] [id number] [place] [address] [place] Monocytes (Bld) [#/Vol] 0.66 10*3/uL Normal <0.87 [facility] Comment on above: Order Comment: Speci men Type: BLOOD SPECIMENOrdering Facility: [facility] Address: [address] [place] [address] Performed By: #### 5 7021-8 ####[facility] [id number] [place] [address] [place] Monocytes/100 WBC (Bld) 18.3 % Normal [facility] Comment on above: Order Comment: Speci men Type: BLOOD SPECIMENOrdering Facility: [facility] Address: [address] [place] [address] Performed By: #### 5 7021-8 ####[facility]PITALNCLIA [id number] [place] [address] [place] Neutrophils (Bld) [#/Vol] 2.37 10*3/uL Normal 1.45-7.50 [facility] Comment on above: Order Comment: Speci men Type: BLOOD SPECIMENOrdering Facility: [facility] Address: [address] [place] [address] Performed By: #### 5 7021-8 ####[facility] [id number] [place] [address] [place] Neutrophils/100 WBC (Bld) 65.9 % Normal [facility] Comment on above: Order Comment: Speci men Type: BLOOD SPECIMENOrdering Facility: [facility] Address: [address] [place] [address] Performed By: #### 5 7021-8 ####[facility] [id number] [place] [address] [place] Nucleated RBC (Bld) [#/Vol] 10*3/uL Normal <0.01 [facility] Comment on above: Order Comment: Speci men Type: BLOOD SPECIMENOrdering Facility: [facility] Address: [address] [place] [address] Performed By: #### 5 7021-8 ####[facility] [id number] [place] [address] [place] Nucleated RBC/100 WBC (Bld) [Ratio] 0.0 /100 WBC Normal [facility] Comment on above: Order Comment: Speci men Type: BLOOD SPECIMENOrdering Facility: [facility] Address: [address] [place] [address] Performed By: #### 5 7021-8 ####[facility] [id number] [place] [address] [place] Platelet mean volume (Bld) [Entitic vol] 9.4 fL Normal 9.0-12.7 [facility] Comment on above: Order Comment: Speci men Type: BLOOD SPECIMENOrdering Facility: [facility] Address: [address] [place] [address] Performed By: #### 5 7021-8 ####[facility] SOCRATESNCLIA [id number] [place] [address] [place] Platelets (Bld) [#/Vol] 152 10*3/uL Normal 150-400 [facility] Comment on above: Order Comment: Speci men Type: BLOOD SPECIMENOrdering Facility: [facility] Address: [address] [place] [address] Performed By: #### 5 7021-8 ####[facility] AMBERLaurenNCLIA [id number] [place] [address] [place] RBC (Bld) [#/Vol] 3.58 10*6/uL Low 4.20-6.00 [facility] Comment on above: Order Comment: Speci men Type: BLOOD SPECIMENOrdering Facility: [facility] Address: [address] [place] [address] Performed By: #### 5 7021-8 ####[facility]OSPITALNCLIA [id number] [place] [address] [place] WBC (Bld) [#/Vol] 3.60 10*3/uL Low 3.70-11.00 [facility] Comment on above: Order Comment: Speci men Type: BLOOD SPECIMENOrdering Facility: [facility] Address: [address] [place] [address] Performed By: #### 5 7021-8 ####[facility]OSPITALNCLIA [id number] [address] CNOVSPon 05-16-2025 CNOVSP Visit (SP) Office (HEMAWS) -------- JAYLEN GALAVIZ ([id number]) 1935 M Date Time Provider Department 05/16/25 9:50 AM HA LUQUE During your visit today, we recorded the following information about you: Temperature Pulse Blood pressure Weight 68.8 degrees 55/minute 134/72 89.8 kg Height 1.77 m Ha Luque MD 05/16/2025 10:07 AM Signed (Elements copied from my note dated April 17, 2025, have been reviewed and updated where appropriate, and all reflect current assessment and medical decision making from today's encounter, May 16, 2025) HISTORY OF PRESENT ILLNESS: Jaylen Galaviz is a 89 year old male referred for pancytopenia. Had RT to prostate 2022 at [facility]. WBC 2.7-3.1 in September, hgb 9.5 to 10.2. platelts ok., cbc overall pretty stable over last year. Colonoscopy about a year ago Seen initially for evaluation. Notes no bleeding or black stool. Here for follow up , reviewed labs. All stable, probably not needing epo at this time. CrCl 55 CKD stage 3a CLINICAL IMPRESSION: Anemia, leukopenia mild, amy relates to prior prostate radiation, counts have been pretty stable over the past year or more. Suspect renal component of anemia. RECOMMENDATION/PLAN: 1. Hold Aranesp today, recheck in 4-6 weeks with possible aranesp Written and verbal health teaching given to patient, patient verbalizes understanding and agrees with treatment plan. 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 Benign hypertension Bilateral leg pain CAD in [place] artery Centrilobular emphysema (HCC) CKD (chronic kidney disease) stage 3, GFR 30-59 ml/min (HCC) Diabetes mellitus (HCC) MAZARIEGOS (dyspnea on exertion) Dysuria Elevated brain natriuretic peptide (BNP) level Fatigue Fatty infiltration of liver Ground glass opacity present on imaging of lung History of echocardiogram 09/30/2017 EF 55-60% grade 1 diastolic dysfunction aortic valve bioprosthesis is present and functioning normally mild TR History of echocardiogram 08/18/2020 concentric LVH EF 55-60% grade 1 diastolic dysfunction mild MR History of echocardiogram 08/18/2020 EF 55-60% grade 1 diastolic dysfunction normally functioning bioprosthetic valve mean gradient 13mmHg mild MR History of stress test 08/22/2018 no evidence of ischemia or infarction abnormal septal motion EF 59% Lung nodule seen on imaging study Mixed hyperlipidemia Myalgia Obesity (BMI 30-39.9) ROBERT (obstructive sleep apnea) PMR (polymyalgia rheumatica) (HCC) Pulmonary fibrosis (HCC) 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 St 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 HUERTA to the LAD SVG to the circumflex SOB (shortness of breath) Venous insufficiency of both lower extremities Vitamin D deficiency PAST SURGICAL HISTORY Procedure Laterality Date CATARACT EXTRACTION HX Bilateral CORONARY ARTERY BYPASS GRAFT REVISE MEDIAN N/CARPAL TUNNEL SURG Right FAMILY HISTORY Problem Relation Age of Onset Heart Mother Heart Father Social History Tobacco Use Smoking status: Never Passive exposure: Never Smokeless tobacco: Never Vaping Use Vaping status: Never Used Substance Use Topics Alcohol use: Not Currently Drug use: Never ALLERGIES: ALLERGIES Allergen Reactions Rosuvastatin Myalgia CURRENT OUTPATIENT MEDICATIONS: leflunomide (ARAVA) 10 mg tablet Take 10 mg by mouth once daily. glimepiride (AMARYL) 1 mg tablet Take 1 mg by mouth two times a day with meals. SITagliptin-metFORMIN (JANUMET) 50-1,000 mg per tablet Take 1 tablet by mouth twice daily with meals. lisinopril (ZESTRIL, PRINIVIL) 40 mg tablet Take 40 mg by mouth once daily. Multivitamin capsule Take 1 capsule by mouth once daily. diphenhydrAMINE-Acetamin ophen (TYLENOL PM EXTRA STRENGTH) 25-500 mg tab Take 2 tablets by mouth daily at bedtime. cholecalciferol (VITAMIN D-3) 50 mcg (2,000 unit) tablet Take 5,000 Units by mouth once daily. SITagliptin phosphate (JANUVIA) 25 mg tablet Take 25 mg by mouth once daily. (Patient not taking: Reported on 04/17/2025) ascorbic acid, vitamin C, (VITAMIN C) 500 mg tablet Take 500 mg by mouth once daily. (Patient not taking: Reported on 04/17/2025) ferrous sulfate (FEOSOL) 325 mg (65 mg iron) tablet 325 mg. (Patient not taking: Reported on 12/14/2024) mupirocin (BACTROBAN) 2 % ointment Apply 1 application to affected area three times a day. (Patient not taking: Reported on 12/14/2024) aspirin, enteric coated (ASPIRIN, ENTERIC COATED) 81 mg EC tablet Take 81 mg by mouth once daily. (Patient not taking: Reported on 12/14/2024) CPAP daily at bedtime. pantoprazol (more content not included)... Normal [facility] Comprehensive metabolic 2000 panelon 05-16-2025 Albumin [Mass/Vol] 4.1 g/dL Normal 3.9-4.9 [facility] Comment on above: Order Comment: Speci men Type: BLOOD SPECIMENOrdering Facility: [facility] Address: [address] [place] [address] Performed By: #### 2 4323-8 ####[facility] [id number] [place] [address] [place] ALP [Catalytic activity/Vol] 66 U/L Normal 38-113 [facility] Comment on above: Order Comment: Speci men Type: BLOOD SPECIMENOrdering Facility: [facility] Address: [address] [place] [address] Performed By: #### 2 4323-8 ####[facility] [id number] [place] [address] [place] ALT [Catalytic activity/Vol] 16 U/L Normal 10-54 [facility] Comment on above: Order Comment: Speci men Type: BLOOD SPECIMENOrdering Facility: [facility] Address: [address] [place] [address] Performed By: #### 2 4323-8 ####[facility] HOSPITALLI [id number] [place] [address] [place] Anion gap [Moles/Vol] 8 mmol/L Normal 8-15 [facility] Comment on above: Order Comment: Speci men Type: BLOOD SPECIMENOrdering Facility: [facility] Address: [address] [place] [address] Performed By: #### 2 4323-8 ####[facility]PITALNCLIA [id number] [place] [address] [place] AST [Catalytic activity/Vol] 25 U/L Normal 14-40 [facility] Comment on above: Order Comment: Speci men Type: BLOOD SPECIMENOrdering Facility: [facility] Address: [address] [place] [address] Performed By: #### 2 4323-8 ####[facility] HOSPITALKerri [id number] [place] [address] [place] Bilirubin [Mass/Vol] 0.2 mg/dL Normal 0.2-1.3 [facility] Comment on above: Order Comment: Speci men Type: BLOOD SPECIMENOrdering Facility: [facility] Address: [address] [place] [address] Performed By: #### 2 4323-8 ####[facility] HOSPITALNCA [id number] [place] [address] [place] Calcium [Mass/Vol] 10.2 mg/dL Normal 8.5-10.2 [facility] Comment on above: Order Comment: Speci men Type: BLOOD SPECIMENOrdering Facility: [facility] Address: [address] [place] [address] Performed By: #### 2 4323-8 ####[facility]PITALNCLIA [id number] [place] [address] [place] Chloride [Moles/Vol] 103 mmol/L Normal 98-107 [facility] Comment on above: Order Comment: Speci men Type: BLOOD SPECIMENOrdering Facility: [facility] Address: [address] [place] [address] Performed By: #### 2 4323-8 ####[facility] APOPKAWNCLIA [id number] [place] [address] [place] CO2 [Moles/Vol] 25 mmol/L Normal 22-30 [facility] Comment on above: Order Comment: Speci men Type: BLOOD SPECIMENOrdering Facility: [facility] Address: [address] [place] [address] Performed By: #### 2 4323-8 ####[facility]PITALNCLIA [id number] [place] [address] [place] Creatinine [Mass/Vol] 1.40 mg/dL High 0.73-1.22 [facility] Comment on above: Order Comment: Speci men Type: BLOOD SPECIMENOrdering Facility: [facility] Address: [address] [place] [address] Performed By: #### 2 4323-8 ####[facility] HOSPITALLIA [id number] [place] [address] [place] eGFRcr SerPlBld CKD-EPI 2020 48 mL/min/1.73m??? Low >=60 [facility] Comment on above: Order Comment: Speci men Type: BLOOD SPECIMENOrdering Facility: [facility] Address: [address] [place] [address] Result Comment: Liliane mated Glomerular Filtration Rate (eGFR) is calculated using the 2020 CKD-EPI creatinine equation. This equation utilizes serum creatinine, sex, and age as parameters. The creatinine assay has traceable calibration to isotope dilution-mass spectrometry. Refer to KDIGO guidelines for clinical interpretation. In patients with unstable renal function, e.g. those with acute kidney injury, the eGFR may not accurately reflect actual GFR. Performed By: #### 2 4323-8 ####[facility] APOPKAWNCLIA [id number] [place] [address] [place] Glucose [Mass/Vol] 112 mg/dL High 74-99 [facility] Comment on above: Order Comment: Speci men Type: BLOOD SPECIMENOrdering Facility: [facility] Address: [address] [place] [address] Result Comment: The [place] Diabetes Association (ADA) provides guidance for cutoff values for fasting glucose and random glucose. The ADA defines fasting as no caloric intake for at least 8 hours. Fasting plasma glucose results between 100 to 125 mg/dL indicate increased risk for diabetes (prediabetes). Fasting plasma glucose results greater than or equal to 126 mg/dL meet the criteria for diagnosis of diabetes. In the absence of unequivocal hyperglycemia, results should be confirmed by repeat testing. In a patient with classic symptoms of hyperglycemia or hyperglycemic crisis, random plasma glucose results greater than or equal to 200 mg/dL meet the criteria for diagnosis of diabetes. Reference: Standards of Medical Care in Diabetes 2016, [place] [employer] Association. Diabetes Care. 2016.39(Suppl 1). Performed By: #### 2 4323-8 ####[facility] HOSPITALEDGARKerri [id number] [place] [address] [place] Potassium [Moles/Vol] 4.9 mmol/L Normal 3.7-5.1 [facility] Comment on above: Order Comment: Ellei men Type: BLOOD SPECIMENOrdering Facility: [facility] Address: [address] [place] [address] Performed By: #### 2 4323-8 ####[facility] HOSPITALROJAS [id number] [place] [address] [place] Protein [Mass/Vol] 6.6 g/dL Normal 6.3-8.0 [facility] Comment on above: Order Comment: Speci men Type: BLOOD SPECIMENOrdering Facility: [facility] Address: [address] [place], [place] [id number] Performed By: #### 2 4323-8 ####[facility] HOSPITALEDGARLIA [id number] [place] [address] [place] Sodium [Moles/Vol] 136 mmol/L Normal 136-144 [facility] Comment on above: Order Comment: Speci men Type: BLOOD SPECIMENOrdering Facility: [facility] Address: [facility] [place] [address] Performed By: #### 2 4323-8 ####[facility] AMBERTOWNCLIA [id number] [place] [address] [place] Urea nitrogen [Mass/Vol] 37 mg/dL High 9-24 [facility] Comment on above: Order Comment: Speci men Type: BLOOD SPECIMENOrdering Facility: [facility] Address: [facility] [place] [address] Performed By: #### 2 4323-8 ####[facility] HAROONWNCLIA [id number] [address] STATES OF [facility] Absolute lymphocyte countOrd ered By: Isabella Justice on 05-01-2025 Lymphocytes Auto (Unsp spec) [#/Vol] 0.44 10*3/uL Low 0.83-4.51 [facility] Absolute neutrophil countOrd ered By: Isabella Justice on 05-01-2025 Neutrophils (Bld) [#/Vol] 2.3 10*3/uL 2.0-7.7 [facility] Anion gap in Serum or Plasma Ordered By: Isabella Justice on 05-01-2025 Anion gap [Moles/Vol] 11 mmol/L 5-15 [facility] Automated lymphocyte count a s percentage of total leukocytesOrdered By: Isabella Justice on 05-01-2025 Lymphocytes/100 WBC Auto (Unsp spec) 13.1 % Low 19-41 [facility] BUN/creatinine ratioOrdered By: Isabella Jsutice on 05-01-2025 Urea nitrogen/Creatinine [Mass ratio] 30.4 mg/mg High 10-20 [facility] Basophil percentageOrdered B y: Isabella Justice on 05-01-2025 Basophils/100 WBC (Bld) 0.9 % 0-1 [facility] Bilirubin, totalOrdered By: Isabella Justice on 05-01-2025 Bilirubin [Mass/Vol] 0.23 mg/dL 0.00-1.30 [facility] CBC W/Diff, Automatedon 08-2 -2024 Absolute Lymph 0.44 X10 3/uL Low 0.83-4.51 [facility] Comment on above: Performed By: #### L 500.4050, L100.0100 #### [facility] [address] [place], [address] Absolute Neut 2.3 X10 3/uL Normal 2.0-7.7 [facility] Comment on above: Performed By: #### L 500.4050, L100.0100 #### [facility] [address] [place], [address] Basophils/100 WBC (Bld) 0.9 % Normal 0-1 [facility] Comment on above: Performed By: #### L 500.4050, L100.0100 #### [facility] [address] [place], [address] Eosinophils/100 WBC (Bld) 3.6 % Normal 0-5 [facility] Comment on above: Performed By: #### L 500.4050, L100.0100 #### [facility] [address] [place], [address] Erythrocyte distribution width (RBC) [Ratio] 16.6 % High 11.6-14.6 [facility] Comment on above: Performed By: #### L 500.4050, L100.0100 #### [facility] [address] [place], [address] Hematocrit (Bld) [Volume fraction] 31.0 % Low 40-54 [facility] Comment on above: Performed By: #### L 500.4050, L100.0100 #### [facility] [address] [place], [address] Hemoglobin (Bld) [Mass/Vol] 9.5 g/dL Low 13.0-16.5 [facility] Comment on above: Performed By: #### L 500.4050, L100.0100 #### [facility] [address] [place], [address] IG% 0.900 Normal 0.0-0.9 [facility] Comment on above: Result Comment: IG% - Immature Granulocytes (promyelocytes, myelocytes and metamyelocytes) > 1% indicates that a LEFT SHIFT is Present. Performed By: #### L 500.4050, L100.0100 #### [facility] [address] [place], [address] Lymphocytes/100 WBC (Bld) 13.1 % Low 19-41 [facility] Comment on above: Performed By: #### L 500.4050, L100.0100 #### [facility] [address] [place], [address] MCH (RBC) [Entitic mass] 28.0 pg Normal 27.0-32.0 [facility] Comment on above: Performed By: #### L 500.4050, L100.0100 #### [facility] [address] [place], [address] MCHC (RBC) [Mass/Vol] 30.6 g/dL Low 32-36 [facility] Comment on above: Performed By: #### L 500.4050, L100.0100 #### [facility] [address] [place], [address] MCV (RBC) [Entitic vol] 91.4 fL Normal 80-94 [facility] Comment on above: Performed By: #### L 500.4050, L100.0100 #### [facility] [address] [place], [address] Monocytes/100 WBC (Bld) 14.8 % High 0-10 [facility] Comment on above: Performed By: #### L 500.4050, L100.0100 #### [facility] [address] [place], [address] Neutrophils/100 WBC (Bld) 66.7 % Normal 47-70 [facility] Comment on above: Performed By: #### L 500.4050, L100.0100 #### [facility] [address] [place], [address] Nucleated RBC (Bld) [#/Vol] 0 10*3/uL Normal 0-5 [facility] Comment on above: Performed By: #### L 500.4050, L100.0100 #### [facility] [address] [place], [address] Platelet mean volume (Bld) [Entitic vol] 9.9 fL Normal 6.2-12.0 [facility] Comment on above: Performed By: #### L 500.4050, L100.0100 #### [facility] [address] [place], [address] Platelets (Bld) [#/Vol] 129 10*3/uL Low 150-450 [facility] Comment on above: Performed By: #### L 500.4050, L100.0100 #### [facility] [address] [place], [address] RBC (Bld) [#/Vol] 3.39 10*6/uL Low 4.6-6.2 [facility] Comment on above: Performed By: #### L 500.4050, L100.0100 #### [facility] [address] [place], [address] RDW SD 55.6 fl High 35.1-43.9 [facility] Comment on above: Performed By: #### L 500.4050, L100.0100 #### [facility] [address] [place], [address] WBC (Bld) [#/Vol] 3.4 10*3/uL Low 4.4-11.0 [facility] Comment on above: Performed By: #### L 500.4050, L100.0100 #### [facility] [address] [place], [address] Carbon dioxide, total [Moles /volume] in Central venous bloodOrdered By: Isabella Justice on 05-01-2025 CO2 [Moles/Vol] 23.6 mmol/L 21.0-32.0 [facility] Chloride assayOrdered By: Sai Justice on 05-01-2025 Chloride [Moles/Vol] 103 mmol/L 98-108 [facility] Comprehensive Metabolic Prof ilon 05-01-2025 Albumin [Mass/Vol] 4.0 g/dL Normal 3.4-4.8 [facility] Comment on above: Performed By: #### L 500.4050, L100.0100 #### [facility] [address] [place], [address] Albumin/Globulin [Mass ratio] 1.5 {ratio} Normal 0.9-2.4 [facility] Comment on above: Performed By: #### L 500.4050, L100.0100 #### [facility] [address] [place], [address] ALK PHOS 63 U/L Normal 40-129 [facility] Comment on above: Performed By: #### L 500.4050, L100.0100 #### [facility] [address] [place], [address] ALT [Catalytic activity/Vol] 19 U/L Normal <=46 [facility] Comment on above: Performed By: #### L 500.4050, L100.0100 #### [facility] [address] [place], [address] AST [Catalytic activity/Vol] 27 U/L Normal <=37 [facility] Comment on above: Performed By: #### L 500.4050, L100.0100 #### [facility] [address] [place], [address] Bilirubin [Mass/Vol] 0.23 mg/dL Normal 0.00-1.30 [facility] Comment on above: Performed By: #### L 500.4050, L100.0100 #### [facility] [address] [place], [address] BUN/CRE 30.4 RATIO High 10-20 [facility] Comment on above: Performed By: #### L 500.4050, L100.0100 #### [facility] [address] [place], [address] Calcium [Mass/Vol] 9.6 mg/dL Normal 7.6-11.0 [facility] Comment on above: Performed By: #### L 500.4050, L100.0100 #### [facility] [address] [place], [address] Chloride [Moles/Vol] 103 mmol/L Normal 98-108 [facility] Comment on above: Performed By: #### L 500.4050, L100.0100 #### [facility] [address] [place], [address] CO2 [Moles/Vol] 23.6 mmol/L Normal 21.0-32.0 [facility] Comment on above: Performed By: #### L 500.4050, L100.0100 #### [facility] [address] [place], [address] Creatinine [Mass/Vol] 1.35 mg/dL High 0.70-1.20 [facility] Comment on above: Performed By: #### L 500.4050, L100.0100 #### [facility] [address] [place], [address] GAP 11 Normal 5-15 [facility] Comment on above: Performed By: #### L 500.4050, L100.0100 #### [facility] [address] [place], [address] GFR/1.73 sq M.predicted among non-blacks MDRD (S/P/Bld) [Vol rate/Area] 50 mL/min/{1.73_m2} Low >60 [facility] Comment on above: Result Comment: mL/m in/1.73m2 CKD-EPI Creatinine Equation (2020) Performed By: #### L 500.4050, L100.0100 #### [facility] [address] [place], [address] Globulin (S) [Mass/Vol] 2.7 g/dL Normal 2.2-4.2 [facility] Comment on above: Performed By: #### L 500.4050, L100.0100 #### [facility] [address] [place], [address] Glucose [Mass/Vol] 100 mg/dL High 70-99 [facility] Comment on above: Performed By: #### L 500.4050, L100.0100 #### [facility] [address] [place], [address] Potassium [Moles/Vol] 4.3 mmol/L Normal 3.3-5.1 [facility] Comment on above: Performed By: #### L 500.4050, L100.0100 #### [facility] [address] [place], [address] Sodium [Moles/Vol] 137 mmol/L Normal 133-145 [facility] Comment on above: Performed By: #### L 500.4050, L100.0100 #### [facility] [address] [place], [address] T PROT 6.7 g/dL Normal 5.9-8.4 [facility] Comment on above: Performed By: #### L 500.4050, L100.0100 #### [facility] [address] [place], [place], [address] Urea nitrogen [Mass/Vol] 41 mg/dL High 4-19 [facility] Comment on above: Performed By: #### L 500.4050, L100.0100 #### [facility] [address] [place], [address] Eosinophil percentageOrdered By: Isabella Justice on 05-01-2025 Eosinophils/100 WBC (Bld) 3.6 % 0-5 [facility] Erythrocyte distribution wid th ratioOrdered By: Isabella Justice on 05-01-2025 Erythrocyte distribution width (RBC) [Ratio] 16.6 % High 11.6-14.6 [facility] Erythrocyte distribution wid th standard deviationOrdered By: Isabella Justice on 05-01-2025 Erythrocyte distribution width (RBC) [Ratio] 55.6 fl High 35.1-43.9 [facility] Glomerular filtration rate ( GFR) estimation/1.73 sq m using serum, plasma, or whole bOrdered By: Isabella Justice on 05-01-2025 GFR/1.73 sq M.predicted among non-blacks MDRD (S/P/Bld) [Vol rate/Area] 50 mL/min/{1.73_m2} Low >60 [facility] Comment on above: mL/min/1.73m2 CKD-EP I Creatinine Equation (2020) Hematocrit Auto (Bld) [Volum e fraction]Ordered By: Isabella Justice on 05-01-2025 Hematocrit (Bld) [Volume fraction] 31.0 % Low 40-54 [facility] Hemoglobin measurementOrdere d By: Isabella Justice on 05-01-2025 Hemoglobin (Bld) [Mass/Vol] 9.5 g/dL Low 13.0-16.5 [facility] Immature granulocytes/100 WB C Auto (Bld)Ordered By: sIabella Justice on 05-01-2025 Immature granulocytes/100 WBC (Bld) 0.900 % 0.0-0.9 [facility] Comment on above: IG% - Immature Granu locytes (promyelocytes, myelocytes and metamyelocytes) > 1% indicates that a LEFT SHIFT is Present. Laboratory - Chemistry and C hemistry - challengeOrdered By: Isabella Justice on 05-01-2025 AST [Catalytic activity/Vol] 27 U/L <38 [facility] MCV (mean corpuscular volume ) determinationOrdered By: Isabella Justice on 05-01-2025 MCV (RBC) [Entitic vol] 91.4 fL 80-94 [facility] Mean corpuscular hemoglobin (MCH) determinationOrdered By: Isabella Justice on 05-01-2025 MCH (RBC) [Entitic mass] 28.0 pg 27.0-32.0 [facility] Mean corpuscular hemoglobin concentration (MCHC) determinationOrdered By: Isabella Justice on 05-01-2025 MCHC (RBC) [Mass/Vol] 30.6 g/dL Low 32-36 [facility] Mean platelet volume determi nationOrdered By: Isabella Justice on 05-01-2025 Platelet mean volume (Bld) [Entitic vol] 9.9 fL 6.2-12.0 [facility] Monocyte percentageOrdered B y: Isabella Justice on 05-01-2025 Monocytes/100 WBC (Bld) 14.8 % High 0-10 [facility] Neutrophil percentageOrdered By: Isabella Justice on 05-01-2025 Neutrophils/100 WBC (Bld) 66.7 % 47-70 [facility] Nucleated red blood cell per centageOrdered By: Isabella Justice on 05-01-2025 Nucleated RBC/100 WBC (Bld) [Ratio] 0 % 0-5 [facility] Platelet countOrdered By: Sai Justice on 05-01-2025 Platelets (Bld) [#/Vol] 129 10*3/uL Low 150-450 [facility] Potassium measurement (mass/ volume)Ordered By: Isabella Justice on 05-01-2025 Potassium (Unsp spec) [Mass/Vol] 4.3 mmol/L 3.3-5.1 [facility] RBC Auto (Bld) [#/Vol]Ordere d By: Isabella Justice on 05-01-2025 RBC (Bld) [#/Vol] 3.39 10*6/uL Low 4.6-6.2 [facility] Serum creatinine measurement (mass/volume)Ordered By: Isabella Justice on 05-01-2025 Creatinine [Mass/Vol] 1.35 mg/dL High 0.70-1.20 [facility] Serum globulin measurementOr dered By: Isabella Justice on 05-01-2025 Globulin (S) [Mass/Vol] 2.7 g/dL 2.2-4.2 [facility] Serum glucose measurement (m ass/volume)Ordered By: Isabella Justice on 05-01-2025 Glucose [Mass/Vol] 100 mg/dL High 70-99 [facility] Serum or plasma alanine lee otransferase (ALT) measurementOrdered By: Isabella Justice on 05-01-2025 ALT [Catalytic activity/Vol] 19 U/L <47 [facility] Serum or plasma albumin elian urement (mass/volume)Ordered By: Isabella Justice on 05-01-2025 Albumin [Mass/Vol] 4.0 g/dL 3.4-4.8 [facility] Serum or plasma albumin/glob ulin mass ratioOrdered By: Isabella Justice on 05-01-2025 Albumin/Globulin [Mass ratio] 1.5 {ratio} 0.9-2.4 [facility] Serum or plasma alkaline anali sphatase measurementOrdered By: Isabella Justice on 05-01-2025 ALP [Catalytic activity/Vol] 63 U/L 40-129 [facility] Serum or plasma calcium elian urement (mass/volume)Ordered By: Isabella Justice on 05-01-2025 Calcium [Mass/Vol] 9.6 mg/dL 7.6-11.0 [facility] Serum or plasma urea nitroge n measurement (mass/volume)Ordered By: Isabella Justice on 05-01-2025 Urea nitrogen [Mass/Vol] 41 mg/dL High 4-19 [facility] Sodium levelOrdered By: Olivia Justice on 05-01-2025 Sodium [Moles/Vol] 137 mmol/L 133-145 [facility] Total proteinOrdered By: Usama Justice on 05-01-2025 Protein [Mass/Vol] 6.7 g/dL 5.9-8.4 [facility] White blood cell (WBC) count Ordered By: Isabella Justice on 05-01-2025 WBC (Bld) [#/Vol] 3.4 10*3/uL Low 4.4-11.0 [facility] CBC W Auto Differential pane l (Bld)on 04-17-2025 Basophils (Bld) [#/Vol] 10*3/uL Normal <0.11 [facility] Comment on above: Order Comment: Speci men Type: BLOOD SPECIMENOrdering Facility: [facility] Address: [address] [place] [address] Performed By: #### 5 7021-8 ####[facility]WW[facility] HOSPITALA [id number] [place] [address] [place] Basophils/100 WBC (Bld) 0.5 % Normal [facility] Comment on above: Order Comment: Speci men Type: BLOOD SPECIMENOrdering Facility: [facility] Address: [address] [place] [address] Performed By: #### 5 7021-8 ####[facility]PITALA [id number] [place] [address] [place] Differential cell count method Nom (Bld) Auto Normal [facility] Comment on above: Order Comment: Speci men Type: BLOOD SPECIMENOrdering Facility: [facility] Address: [address] [place] [address] Performed By: #### 5 7021-8 ####[facility] MILLWNCLIA [id number] [place] [address] [place] Eosinophils (Bld) [#/Vol] 0.11 10*3/uL Normal <0.46 [facility] Comment on above: Order Comment: Speci men Type: BLOOD SPECIMENOrdering Facility: [facility] Address: [address] [place] [address] Performed By: #### 5 7021-8 ####[facility] ZACH [id number] [place] [address] [place] Eosinophils/100 WBC (Bld) 2.9 % Normal [facility] Comment on above: Order Comment: Speci men Type: BLOOD SPECIMENOrdering Facility: [facility] Address: [address] [place] [address] Performed By: #### 5 7021-8 ####[facility] AMBERSAINT LOUISVILLENCJOHN [id number] [place] [address] [place] Erythrocyte distribution width (RBC) [Ratio] 16.3 % High 11.5-15.0 [facility] Comment on above: Order Comment: Speci men Type: BLOOD SPECIMENOrdering Facility: [facility] Address: [address] [place] [address] Performed By: #### 5 7021-8 ####[facility] AMBERSAINT LOUISVILLENCJOHN [id number] [place] [address] [place] Hematocrit (Bld) [Volume fraction] 30.4 % Low 39.0-51.0 [facility] Comment on above: Order Comment: Speci men Type: BLOOD SPECIMENOrdering Facility: [facility] Address: [address] [place] [address] Performed By: #### 5 7021-8 ####[facility]ITALEDGARLIA [id number] [place] [address] [place] Hemoglobin (Bld) [Mass/Vol] 9.6 g/dL Low 13.0-17.0 [facility] Comment on above: Order Comment: Speci men Type: BLOOD SPECIMENOrdering Facility: [facility] Address: [address] [place] [address] Performed By: #### 5 7021-8 ####[facility] MILLWNCLIA [id number] [place] [address] [place] Immature granulocytes (Bld) [#/Vol] 10*3/uL Normal <0.10 [facility] Comment on above: Order Comment: Speci men Type: BLOOD SPECIMENOrdering Facility: [facility] Address: [address] [place] [address] Performed By: #### 5 7021-8 ####[facility] HOSPITALLIA [id number] [place] [address] [place] Immature granulocytes/100 WBC (Bld) 0.5 % Normal [facility] Comment on above: Order Comment: Speci men Type: BLOOD SPECIMENOrdering Facility: [facility] Address: [address] [place] [address] Performed By: #### 5 7021-8 ####[facility] HOSPITALLIA [id number] [place] [address] [place] Lymphocytes (Bld) [#/Vol] 0.43 10*3/uL Low 1.00-4.00 [facility] Comment on above: Order Comment: Speci men Type: BLOOD SPECIMENOrdering Facility: [facility] Address: [address] [place] [address] Performed By: #### 5 7021-8 ####[facility] HOSPITALLIA [id number] [place] [address] [place] Lymphocytes/100 WBC (Bld) 11.4 % Normal [facility] Comment on above: Order Comment: Speci men Type: BLOOD SPECIMENOrdering Facility: [facility] Address: [address] [place] [address] Performed By: #### 5 7021-8 ####[facility]OSPITALNCLIA [id number] [place] [address] [place] MCH (RBC) [Entitic mass] 28.6 pg Normal 26.0-34.0 [facility] Comment on above: Order Comment: Speci men Type: BLOOD SPECIMENOrdering Facility: [facility] Address: [address] [place] [address] Performed By: #### 5 7021-8 ####[facility] HOSPITALNCCOOKIE [id number] [place] [address] [place] MCHC (RBC) [Mass/Vol] 31.6 g/dL Normal 30.5-36.0 [facility] Comment on above: Order Comment: Speci men Type: BLOOD SPECIMENOrdering Facility: [facility] Address: [address] [place] [address] Performed By: #### 5 7021-8 ####[facility]PITALNCLAKEVIEW HOSPITAL [id number] [place] [address] [place] MCV (RBC) [Entitic vol] 90.5 fL Normal 80.0-100.0 [facility] Comment on above: Order Comment: Speci men Type: BLOOD SPECIMENOrdering Facility: [facility] Address: [address] [place] [address] Performed By: #### 5 7021-8 ####[facility]ITALNCLAKEVIEW HOS[facility]ITAL [id number] [place] [address] [place] Monocytes (Bld) [#/Vol] 0.46 10*3/uL Normal <0.87 [facility] Comment on above: Order Comment: Speci men Type: BLOOD SPECIMENOrdering Facility: [facility] Address: [address] [place] [address] Performed By: #### 5 7021-8 ####[facility]ITALNCLIA [id number] [place] [address] [place] Monocytes/100 WBC (Bld) 12.2 % Normal [facility] Comment on above: Order Comment: Speci men Type: BLOOD SPECIMENOrdering Facility: [facility] Address: [address] [place] [address] Performed By: #### 5 7021-8 ####[facility] AMBERROSIELIA [id number] [place] [address] [place] Neutrophils (Bld) [#/Vol] 2.72 10*3/uL Normal 1.45-7.50 [facility] Comment on above: Order Comment: Speci men Type: BLOOD SPECIMENOrdering Facility: [facility] Address: [address] [place] [address] Performed By: #### 5 7021-8 ####[facility] HOSPITALLIA [id number] [place] [address] [place] Neutrophils/100 WBC (Bld) 72.5 % Normal [facility] Comment on above: Order Comment: Speci men Type: BLOOD SPECIMENOrdering Facility: [facility] Address: [address] [place] [address] Performed By: #### 5 7021-8 ####[facility]ITALLIA [id number] [place] [address] [place] Nucleated RBC (Bld) [#/Vol] 10*3/uL Normal <0.01 [facility] Comment on above: Order Comment: Speci men Type: BLOOD SPECIMENOrdering Facility: [facility] Address: [address] [place] [address] Performed By: #### 5 7021-8 ####[facility]CL[facility] [id number] [place] [address] [place] Nucleated RBC/100 WBC (Bld) [Ratio] 0.0 /100 WBC Normal [facility] Comment on above: Order Comment: Speci men Type: BLOOD SPECIMENOrdering Facility: [facility] Address: [address] [place] [address] Performed By: #### 5 7021-8 ####[facility] AMBERWNCLIA [id number] [place] [address] [place] Platelet mean volume (Bld) [Entitic vol] 9.4 fL Normal 9.0-12.7 [facility] Comment on above: Order Comment: Speci men Type: BLOOD SPECIMENOrdering Facility: [facility] Address: [address] [place] [address] Performed By: #### 5 7021-8 ####[facility] [id number] [place] [address] [place] Platelets (Bld) [#/Vol] 136 10*3/uL Low 150-400 [facility] Comment on above: Order Comment: Speci men Type: BLOOD SPECIMENOrdering Facility: [facility] Address: [address] [place] [address] Performed By: #### 5 7021-8 ####[facility] [id number] [place] [address] [place] RBC (Bld) [#/Vol] 3.36 10*6/uL Low 4.20-6.00 [facility] Comment on above: Order Comment: Speci men Type: BLOOD SPECIMENOrdering Facility: [facility] Address: [address] [place] [address] Performed By: #### 5 7021-8 ####[facility] [id number] [place] [address] [place] WBC (Bld) [#/Vol] 3.76 10*3/uL Normal 3.70-11.00 [facility] Comment on above: Order Comment: Speci men Type: BLOOD SPECIMENOrdering Facility: [facility] Address: [address] [place] [address] Performed By: #### 5 7021-8 ####[facility] [id number] [place] [address] [place] CNOVSPon 04-17-2025 CNOVSP Visit (SP) Office (HEMAWS) -------- JAYLEN GALAVIZ ([id number]) 1935 M Date Time Provider Department 04/17/25 1:00 PM HA LUQUE During your visit today, we recorded the following information about you: Temperature Pulse Blood pressure Weight 97.1 degrees 63/minute 143/69 88.5 kg Ha Luque MD 04/17/2025 1:49 PM Signed (Elements copied from my note dated January 04, 2025, have been reviewed and updated where appropriate, and all reflect current assessment and medical decision making from today's encounter, April 17, 2025) HISTORY OF PRESENT ILLNESS: Jaylen Galaviz is a 89 year old male referred for pancytopenia. Had RT to prostate 2022 at [facility]. WBC 2.7-3.1 in September, hgb 9.5 to 10.2. platelts ok., cbc overall pretty stable over last year. Colonoscopy about a year ago Seen initially for evaluation. Notes no bleeding or black stool. Here for follow up , reviewed labs. All stable, probably not needing epo at this time. CrCl 55 CKD stage 3a CLINICAL IMPRESSION: Anemia, leukopenia mild, amy relates to prior prostate radiation, counts have been pretty stable over the past year or more. Suspect renal component of anemia. RECOMMENDATION/PLAN: 1. Aranesp today, recheck in 1 month with possible aranesp Written and verbal health teaching given to patient, patient verbalizes understanding and agrees with treatment plan. 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 Benign hypertension Bilateral leg pain CAD in [place] artery Centrilobular emphysema (HCC) CKD (chronic kidney disease) stage 3, GFR 30-59 ml/min (HCC) Diabetes mellitus (HCC) MAZARIEGOS (dyspnea on exertion) Dysuria Elevated brain natriuretic peptide (BNP) level Fatigue Fatty infiltration of liver Ground glass opacity present on imaging of lung History of echocardiogram 09/30/2017 EF 55-60% grade 1 diastolic dysfunction aortic valve bioprosthesis is present and functioning normally mild TR History of echocardiogram 08/18/2020 concentric LVH EF 55-60% grade 1 diastolic dysfunction mild MR History of echocardiogram 08/18/2020 EF 55-60% grade 1 diastolic dysfunction normally functioning bioprosthetic valve mean gradient 13mmHg mild MR History of stress test 08/22/2018 no evidence of ischemia or infarction abnormal septal motion EF 59% Lung nodule seen on imaging study Mixed hyperlipidemia Myalgia Obesity (BMI 30-39.9) ROBERT (obstructive sleep apnea) PMR (polymyalgia rheumatica) (HCC) Pulmonary fibrosis (HCC) 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 [facility] 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 HUERTA to the LAD SVG to the circumflex SOB (shortness of breath) Venous insufficiency of both lower extremities Vitamin D deficiency PAST SURGICAL HISTORY Procedure Laterality Date CATARACT EXTRACTION HX Bilateral CORONARY ARTERY BYPASS GRAFT REVISE MEDIAN N/CARPAL TUNNEL SURG Right FAMILY HISTORY Problem Relation Age of Onset Heart Mother Heart Father Social History Tobacco Use Smoking status: Never Passive exposure: Never Smokeless tobacco: Never Vaping Use Vaping status: Never Used Substance Use Topics Alcohol use: Not Currently Drug use: Never ALLERGIES: ALLERGIES Allergen Reactions Rosuvastatin Myalgia CURRENT OUTPATIENT MEDICATIONS: leflunomide (ARAVA) 10 mg tablet Take 10 mg by mouth once daily. glimepiride (AMARYL) 1 mg tablet Take 1 mg by mouth two times a day with meals. CPAP daily at bedtime. SITagliptin-metFORMIN (JANUMET) 50-1,000 mg per tablet Take 1 tablet by mouth twice daily with meals. lisinopril (ZESTRIL, PRINIVIL) 40 mg tablet Take 40 mg by mouth once daily. Multivitamin capsule Take 1 capsule by mouth once daily. diphenhydrAMINE-Acetamin ophen (TYLENOL PM EXTRA STRENGTH) 25-500 mg tab Take 2 tablets by mouth daily at bedtime. cholecalciferol (VITAMIN D-3) 50 mcg (2,000 unit) tablet Take 5,000 Units by mouth once daily. SITagliptin phosphate (JANUVIA) 25 mg tablet Take 25 mg by mouth once daily. (Patient not taking: Reported on 04/17/2025) ascorbic acid, vitamin C, (VITAMIN C) 500 mg tablet Take 500 mg by mouth once daily. (Patient not taking: Reported on 04/17/2025) ferrous sulfate (FEOSOL) 325 mg (65 mg iron) tablet 325 mg. (Patient not taking: Reported on 12/14/2024) mupirocin (BACTROBAN) 2 % ointment Apply 1 application to affected area three times a day. (Patient not taking: Reported on 12/14/2024) aspirin, enteric coated (ASPIRIN, ENTERIC COATED) 81 mg EC tablet Take 81 mg by mouth once daily. (Patient not taking: Reported on 12/14/2024) pantoprazole DR (PROTONIX) 40 mg tablet Take (more content not included)... Normal [facility] 03-06-2025 [facility] Telephone (CHARISMA) -------- JAYLEN GALAVIZ ([id number]) 1935 M Date Time Provider Department 03/06/25 HEATHER AWAN During your visit today, we recorded the following information about you: Heather Awan, RN 03/06/2025 12:08 PM Signed Received referral from PCP for anemia and records from [facility]. 02/26/25 Lab, Hgb 9.4, stable from previous labs with our office, 01/04/25 lab, Hgb 9.9. Patient is already established with Dr. Luque for anemia and has f/u 04/12/25. Call to patient and discussed above. He states that he has had anemia for several years and nothing seems to be helping. He was reminded of f/u with our office and offered a sooner appointment if he would like. He states, do I have to? I have so many bills right now This nurse let him know that it was his choice to come in or not but that Dr. Luque is monitoring his CBC and if it drops lower, he is considering a medication to help boost it back up. Patient states understanding but states I will pass, will I be charged for passing Patient aware that I will cancel his f/u with our office and that there will not be a charge to him. Advised that he continue to follow with his PCP for labs/anemia and can reschedule with our office at any time to discuss options with Dr. Luque. Patient thanked this nurse for calling and denies further questions/concerns. LAVERN Bruce Cathleen, RN 03/06/2025 1:18 PM Addendum PSS: Please cancel upcoming appointments on 04/12/25. Patient will reach out if he wished to reschedule. Gaye Awan RN Called and spoke with Frannie at Dr. Adela Fleming office at [facility]. She is aware of conversation with patient and he request cancellation of f/u appt. She ask if we can fax last 2 office note to her for Dr. Fleming to review. . These will be faxed today. LAVERN Bruce Brandy 03/06/2025 1:39 PM Signed Patient's requested appointments have been canceled Xavi Ellison Allergies As of Date: 03/06/2025 Noted Allergy Reaction ROSUVASTATIN 07/24/2020 17 - Myalgia Date Reviewed: 01/04/2025 Reviewed by: Romana Courtney Ma, MA - Fully Assessed Reason for Visit: Patient Update [1234] Cmt: Referral from PCP Prescriptions as of 03/06/2025 - SITagliptin phosphate (JANUVIA) 25 mg tablet Take 25 mg by mouth once daily. - ascorbic acid, vitamin C, (VITAMIN C) 500 mg tablet Take 500 mg by mouth once daily. - ferrous sulfate (FEOSOL) 325 mg (65 mg iron) tablet 325 mg. - mupirocin (BACTROBAN) 2 % ointment Apply 1 application to affected area three times a day. - leflunomide (ARAVA) 10 mg tablet Take 10 mg by mouth once daily. - glimepiride (AMARYL) 1 mg tablet Take 1 mg by mouth two times a day with meals. - aspirin, enteric coated (ASPIRIN, ENTERIC COATED) 81 mg EC tablet Take 81 mg by mouth once daily. - CPAP daily at bedtime. - SITagliptin-metFORMIN (JANUMET) 50-1,000 mg per tablet Take 1 tablet by mouth twice daily with meals. - lisinopril (ZESTRIL, PRINIVIL) 40 mg tablet Take 40 mg by mouth once daily. - Multivitamin capsule Take 1 capsule by mouth once daily. - pantoprazole DR (PROTONIX) 40 mg tablet Take 40 mg by mouth once daily. - hydrOXYchloroQUINE (PLAQUENIL) 200 mg tablet Take 200 mg by mouth two times a day. - saw palmetto/pumpkin/pyg/Zn/ B6 (SAW PALMETTO COMPLEX,PUMPK-ZN, ORAL) Take by mouth once daily. - diphenhydrAMINE-Acetamin ophen (TYLENOL PM EXTRA STRENGTH) 25-500 mg tab Take 2 tablets by mouth daily at bedtime. - cholecalciferol (VITAMIN D-3) 50 mcg (2,000 unit) tablet Take 5,000 Units by mouth once daily. - Vitamin E, dl, acetate, (VITAMIN E) 400 unit capsule Take 400 Units by mouth once daily. 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] 06/19/2012 Mixed hyperlipidemia [E78.2] 08/26/2021 History of stress test [Z92.89] 08/22/2018 History of echocardiogram [Z92.89] 08/18/2020 CKD (chronic kidney disease) stage 3, GFR 30-59*08/26/2021 CAD in [place] artery [I25.10] 08/26/2021 Benign hypertension [I10] 08/26/[address] of the chest [R93.89] 08/26/2021 Abnormal chest x-ray [R93.89] 08/26/2021 Type 2 diabetes mellitus without complication (*08/26/2021 Anemia [D64.9] 01/04/2025 Encounter Status:Closed by XAVI JACQUES on 03/06/25 [address] [facility] [address] HEAD OR BRAIN W/O CONTRAS Ton 03-06-2025 CT HEAD OR BRAIN W/O CONTRAST ORIGINAL EXAMINATION: CT OF THE HEAD WITHOUT CONTRAST 03/06/2025 10:12 am TECHNIQUE: CT of the head was performed without the administration of intravenous contrast. Automated exposure control, iterative reconstruction, and/or weight based adjustment of the mA/kV was utilized to reduce the radiation dose to as low as reasonably achievable. COMPARISON: MRI brain 09/08/2024. HISTORY: ORDERING SYSTEM PROVIDED HISTORY: Reason for Exam: DISORIENTATION FINDINGS: BRAIN/VENTRICLES: The ventricles and sulci are enlarged. Patchy areas of decreased attenuation are present in the periventricular white matter bilaterally. No mass, hemorrhage or large vessel infarct. No extra-axial fluid collection. 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 SINUSES: The visualized paranasal sinuses and mastoid air cells demonstrate no acute abnormality. SOFT TISSUES/SKULL: No acute abnormality of the visualized skull or soft tissues. IMPRESSION: No acute findings. No significant interval change. Interpreted by: Mariel Ruvalcaba Preliminary Report By: Mariel Ruvalcaba Electronically signed By Mariel Ruvalcaba Dictated Date: 03/06/2025 10:15:52 AM Prelim Date: 03/06/2025 10:19:54 AM Sign Date: 03/06/2025 10:19:54 AM Ordering Provider: JAKI FLEMING Interpreted by: Mariel Ruvalcaba Preliminary Report By: Mariel Ruvalcaba Electronically signed By Mariel Ruvalcaba Dictated Date: 03/06/2025 10:15:52 AM Prelim Date: 03/06/2025 10:19:54 AM Sign Date: 03/06/2025 10:19:54 AM Ordering Provider: JAKI FLEMING Normal [facility] Absolute lymphocyte countOrd ered By: Isabella Justice on 02-05-2025 Lymphocytes Auto (Unsp spec) [#/Vol] 0.42 10*3/uL Low 0.83-4.51 [facility] Absolute neutrophil countOrd ered By: Isabella Justice on 02-05-2025 Neutrophils (Bld) [#/Vol] 3.2 10*3/uL 2.0-7.7 [facility] Anion gap in Serum or Plasma Ordered By: Isabella Justice on 02-05-2025 Anion gap [Moles/Vol] 11 mmol/L 5-15 [facility] Automated lymphocyte count a s percentage of total leukocytesOrdered By: Isabella Justice on 02-05-2025 Lymphocytes/100 WBC Auto (Unsp spec) 9.7 % Low 19-41 [facility] BUN/creatinine ratioOrdered By: [facility] Reshma on 02-05-2025 Urea nitrogen/Creatinine [Mass ratio] 30.1 mg/mg High 10-20 [facility] Basophil percentageOrdered B y: Isabella Justice on 02-05-2025 Basophils/100 WBC (Bld) 0.7 % 0-1 [facility] Bilirubin, totalOrdered By: Isabella Justice on 02-05-2025 Bilirubin [Mass/Vol] 0.20 mg/dL 0.00-1.30 [facility] CBC W/Diff, Automatedon -0 Absolute Lymph 0.42 X10 3/uL Low 0.83-4.51 [facility] Comment on above: Performed By: #### L 500.4050, L100.0100 #### [facility] [address] [place], [address] Absolute Neut 3.2 X10 3/uL Normal 2.0-7.7 [facility] Comment on above: Performed By: #### L 500.4050, L100.0100 #### [facility] [address] [place], [address] Basophils/100 WBC (Bld) 0.7 % Normal 0-1 [facility] Comment on above: Performed By: #### L 500.4050, L100.0100 #### [facility] [address] [place], [address] Eosinophils/100 WBC (Bld) 2.5 % Normal 0-5 [facility] Comment on above: Performed By: #### L 500.4050, L100.0100 #### [facility] [address] [place], [address] Erythrocyte distribution width (RBC) [Ratio] 17.7 % High 11.6-14.6 [facility] Comment on above: Performed By: #### L 500.4050, L100.0100 #### [facility] [address] [place], [address] Hematocrit (Bld) [Volume fraction] 32.6 % Low 40-54 [facility] Comment on above: Performed By: #### L 500.4050, L100.0100 #### [facility] [address] [place], [address] Hemoglobin (Bld) [Mass/Vol] 10.2 g/dL Low 13.0-16.5 [facility] Comment on above: Performed By: #### L 500.4050, L100.0100 #### [facility] [address] [place], [address] IG% 0.500 Normal 0.0-0.9 [facility] Comment on above: Result Comment: IG% - Immature Granulocytes (promyelocytes, myelocytes and metamyelocytes) > 1% indicates that a LEFT SHIFT is Present. Performed By: #### L 500.4050, L100.0100 #### [facility] [address] [place], [address] Lymphocytes/100 WBC (Bld) 9.7 % Low 19-41 [facility] Comment on above: Performed By: #### L 500.4050, L100.0100 #### [facility] [address] [place], [address] MCH (RBC) [Entitic mass] 28.2 pg Normal 27.0-32.0 [facility] Comment on above: Performed By: #### L 500.4050, L100.0100 #### [facility] [address] [place], [address] MCHC (RBC) [Mass/Vol] 31.3 g/dL Low 32-36 [facility] Comment on above: Performed By: #### L 500.4050, L100.0100 #### [facility] [address] [place], [address] MCV (RBC) [Entitic vol] 90.1 fL Normal 80-94 [facility] Comment on above: Performed By: #### L 500.4050, L100.0100 #### [facility] [address] [place], [address] Monocytes/100 WBC (Bld) 12.2 % High 0-10 [facility] Comment on above: Performed By: #### L 500.4050, L100.0100 #### [facility] [address] [place], [address] Neutrophils/100 WBC (Bld) 74.4 % High 47-70 [facility] Comment on above: Performed By: #### L 500.4050, L100.0100 #### [facility] [address] [place], [address] Nucleated RBC (Bld) [#/Vol] 0 10*3/uL Normal 0-5 [facility] Comment on above: Performed By: #### L 500.4050, L100.0100 #### [facility] [address] [place], [address] Platelet mean volume (Bld) [Entitic vol] 9.2 fL Normal 6.2-12.0 [facility] Comment on above: Performed By: #### L 500.4050, L100.0100 #### [facility] [address] [place], [address] Platelets (Bld) [#/Vol] 166 10*3/uL Normal 150-450 [facility] Comment on above: Performed By: #### L 500.4050, L100.0100 #### [facility] [address] [place], [address] RBC (Bld) [#/Vol] 3.62 10*6/uL Low 4.6-6.2 [facility] Comment on above: Performed By: #### L 500.4050, L100.0100 #### [facility] [address] [place], [address] RDW SD 58.5 fl High 35.1-43.9 [facility] Comment on above: Performed By: #### L 500.4050, L100.0100 #### [facility] [address] [place], [address] WBC (Bld) [#/Vol] 4.3 10*3/uL Low 4.4-11.0 [facility] Comment on above: Performed By: #### L 500.4050, L100.0100 #### [facility] [address] [place], [address] Carbon dioxide, total [Moles /volume] in Central venous bloodOrdered By: Isabella Justice on 02-05-2025 CO2 [Moles/Vol] 22.4 mmol/L 21.0-32.0 [facility] Chloride assayOrdered By: Sai Justice on 02-05-2025 Chloride [Moles/Vol] 103 mmol/L 98-108 [facility] Comprehensive Metabolic Prof ilon 02-05-2025 Albumin [Mass/Vol] 4.1 g/dL Normal 3.4-4.8 [facility] Comment on above: Performed By: #### L 500.4050, L100.0100 #### [facility] [address] [place], [address] Albumin/Globulin [Mass ratio] 1.3 {ratio} Normal 0.9-2.4 [facility] Comment on above: Performed By: #### L 500.4050, L100.0100 #### [facility] [address] [place], [address] ALK PHOS 59 U/L Normal 40-129 [facility] Comment on above: Performed By: #### L 500.4050, L100.0100 #### [facility] [address] [place], [address] ALT [Catalytic activity/Vol] 22 U/L Normal <=46 [facility] Comment on above: Performed By: #### L 500.4050, L100.0100 #### [facility] [address] [place], [address] AST [Catalytic activity/Vol] 32 U/L Normal <=37 [facility] Comment on above: Performed By: #### L 500.4050, L100.0100 #### [facility] [address] [place], [address] Bilirubin [Mass/Vol] 0.20 mg/dL Normal 0.00-1.30 [facility] Comment on above: Performed By: #### L 500.4050, L100.0100 #### [facility] [address] [place], [address] BUN/CRE 30.1 RATIO High 10-20 [facility] Comment on above: Performed By: #### L 500.4050, L100.0100 #### [facility] [address] [place], [address] Calcium [Mass/Vol] 10.6 mg/dL Normal 7.6-11.0 [facility] Comment on above: Performed By: #### L 500.4050, L100.0100 #### [facility] [address] [place], [address] Chloride [Moles/Vol] 103 mmol/L Normal 98-108 [facility] Comment on above: Performed By: #### L 500.4050, L100.0100 #### [facility] [address] [place], [address] CO2 [Moles/Vol] 22.4 mmol/L Normal 21.0-32.0 [facility] Comment on above: Performed By: #### L 500.4050, L100.0100 #### [facility] [address] [place], [address] Creatinine [Mass/Vol] 1.47 mg/dL High 0.70-1.20 [facility] Comment on above: Performed By: #### L 500.4050, L100.0100 #### [facility] [address] [place], [address] GAP 11 Normal 5-15 [facility] Comment on above: Performed By: #### L 500.4050, L100.0100 #### [facility] [address] [place], [address] GFR/1.73 sq M.predicted among non-blacks MDRD (S/P/Bld) [Vol rate/Area] 46 mL/min/{1.73_m2} Low >60 [facility] Comment on above: Result Comment: mL/m in/1.73m2 CKD-EPI Creatinine Equation (2020) Performed By: #### L 500.4050, L100.0100 #### [facility] [address] [place], [address] Globulin (S) [Mass/Vol] 3.2 g/dL Normal 2.2-4.2 [facility] Comment on above: Performed By: #### L 500.4050, L100.0100 #### [facility] [address] [place], [address] Glucose [Mass/Vol] 89 mg/dL Normal 70-99 [facility] Comment on above: Performed By: #### L 500.4050, L100.0100 #### [facility] [address] [place], [address] Potassium [Moles/Vol] 4.9 mmol/L Normal 3.3-5.1 [facility] Comment on above: Performed By: #### L 500.4050, L100.0100 #### [facility] [address] [place], [address] Sodium [Moles/Vol] 136 mmol/L Normal 133-145 [facility] Comment on above: Performed By: #### L 500.4050, L100.0100 #### [facility] [address] [place], [address] T PROT 7.3 g/dL Normal 5.9-8.4 [facility] Comment on above: Performed By: #### L 500.4050, L100.0100 #### [facility] [address] [place], [address] Urea nitrogen [Mass/Vol] 44 mg/dL High 4-19 [facility] Comment on above: Performed By: #### L 500.4050, L100.0100 #### [facility] [address] [place], [address] Eosinophil percentageOrdered By: Isabella Justice on 02-05-2025 Eosinophils/100 WBC (Bld) 2.5 % 0-5 [facility] Erythrocyte distribution wid th ratioOrdered By: Isabella Justice on 02-05-2025 Erythrocyte distribution width (RBC) [Ratio] 17.7 % High 11.6-14.6 [facility] Erythrocyte distribution wid th standard deviationOrdered By: Isabella Justice on 02-05-2025 Erythrocyte distribution width (RBC) [Ratio] 58.5 fl High 35.1-43.9 [facility] Glomerular filtration rate ( GFR) estimation/1.73 sq m using serum, plasma, or whole bOrdered By: Isabella Justice on 02-05-2025 GFR/1.73 sq M.predicted among non-blacks MDRD (S/P/Bld) [Vol rate/Area] 46 mL/min/{1.73_m2} Low >60 [facility] Comment on above: mL/min/1.73m2 CKD-EP I Creatinine Equation (2020) Hematocrit Auto (Bld) [Volum e fraction]Ordered By: Isabella Justice on 02-05-2025 Hematocrit (Bld) [Volume fraction] 32.6 % Low 40-54 [facility] Hemoglobin measurementOrdere d By: Isabella Justice on 02-05-2025 Hemoglobin (Bld) [Mass/Vol] 10.2 g/dL Low 13.0-16.5 [facility] Immature granulocytes/100 WB C Auto (Bld)Ordered By: Isabella Justice on 02-05-2025 Immature granulocytes/100 WBC (Bld) 0.500 % 0.0-0.9 [facility] Comment on above: IG% - Immature Granu locytes (promyelocytes, myelocytes and metamyelocytes) > 1% indicates that a LEFT SHIFT is Present. Laboratory - Chemistry and C hemistry - challengeOrdered By: Isabella Justice on 02-05-2025 AST [Catalytic activity/Vol] 32 U/L <38 [facility] MCV (mean corpuscular volume ) determinationOrdered By: Isabella Justice on 02-05-2025 MCV (RBC) [Entitic vol] 90.1 fL 80-94 [facility] Mean corpuscular hemoglobin (MCH) determinationOrdered By: Isabella Justice on 02-05-2025 MCH (RBC) [Entitic mass] 28.2 pg 27.0-32.0 [facility] Mean corpuscular hemoglobin concentration (MCHC) determinationOrdered By: Isabella Justice on 02-05-2025 MCHC (RBC) [Mass/Vol] 31.3 g/dL Low 32-36 [facility] Mean platelet volume determi nationOrdered By: Isabella Justice on 02-05-2025 Platelet mean volume (Bld) [Entitic vol] 9.2 fL 6.2-12.0 [facility] Monocyte percentageOrdered B y: Isabella Justice on 02-05-2025 Monocytes/100 WBC (Bld) 12.2 % High 0-10 [facility] Neutrophil percentageOrdered By: Isabella Justice on 02-05-2025 Neutrophils/100 WBC (Bld) 74.4 % High 47-70 [facility] Nucleated red blood cell per centageOrdered By: Isabella Justice on 02-05-2025 Nucleated RBC/100 WBC (Bld) [Ratio] 0 % 0-5 [facility] Platelet countOrdered By: Sai Justice on 02-05-2025 Platelets (Bld) [#/Vol] 166 10*3/uL 150-450 [facility] Potassium measurement (mass/ volume)Ordered By: Isabella Justice on 02-05-2025 Potassium (Unsp spec) [Mass/Vol] 4.9 mmol/L 3.3-5.1 [facility] RBC Auto (Bld) [#/Vol]Ordere d By: Isabella Justice on 02-05-2025 RBC (Bld) [#/Vol] 3.62 10*6/uL Low 4.6-6.2 [facility] Serum creatinine measurement (mass/volume)Ordered By: Isabella Justice on 02-05-2025 Creatinine [Mass/Vol] 1.47 mg/dL High 0.70-1.20 [facility] Serum globulin measurementOr dered By: Isabella Justice on 02-05-2025 Globulin (S) [Mass/Vol] 3.2 g/dL 2.2-4.2 [facility] Serum glucose measurement (m ass/volume)Ordered By: Isabella Justice on 02-05-2025 Glucose [Mass/Vol] 89 mg/dL 70-99 [facility] Serum or plasma alanine lee otransferase (ALT) measurementOrdered By: Isabella Justice on 02-05-2025 ALT [Catalytic activity/Vol] 22 U/L <47 [facility] Serum or plasma albumin elian urement (mass/volume)Ordered By: Isabella Justice on 02-05-2025 Albumin [Mass/Vol] 4.1 g/dL 3.4-4.8 [facility] Serum or plasma albumin/glob ulin mass ratioOrdered By: Isabella Justice on 02-05-2025 Albumin/Globulin [Mass ratio] 1.3 {ratio} 0.9-2.4 [facility] Serum or plasma alkaline anali sphatase measurementOrdered By: Isabella Justice on 02-05-2025 ALP [Catalytic activity/Vol] 59 U/L 40-129 [facility] Serum or plasma calcium elian urement (mass/volume)Ordered By: Isabella Justice on 02-05-2025 Calcium [Mass/Vol] 10.6 mg/dL 7.6-11.0 [facility] Serum or plasma urea nitroge n measurement (mass/volume)Ordered By: Isabella Justice on 02-05-2025 Urea nitrogen [Mass/Vol] 44 mg/dL High 4-19 [facility] Sodium levelOrdered By: Olivia Justice on 02-05-2025 Sodium [Moles/Vol] 136 mmol/L 133-145 [facility] Total proteinOrdered By: Usama Justice on 02-05-2025 Protein [Mass/Vol] 7.3 g/dL 5.9-8.4 [facility] White blood cell (WBC) count Ordered By: Isabella Justice on 02-05-2025 WBC (Bld) [#/Vol] 4.3 10*3/uL Low 4.4-11.0 [facility] LABORATORYOrdered By: SYSTEM SYSTEM on 01-14-2025 Prostate specific Ag [Mass/Vol] ng/mL Normal 0.02 - 4.00 ng/mL ADM Comment on above: Interpretive Data: P atient results determined by assays using different manufacturers for methods may not be comparable. PSAon 01-14-2025 Prostate Specific Antigen <0.04 Normal 0.02-4.00 [facility] Comment on above: Result Comment: Barbara ent results determined by assays using different manufacturers for methods may not be comparable. Performed By: #### A DIFF, ANEU, CMP, GFR, CBC #### [id number] [place], [place] [address] CBC W Auto Differential pane l (Bld)on 01-04-2025 Basophils (Bld) [#/Vol] 0.03 10*3/uL [facility] Basophils/100 WBC (Bld) 0.7 % [facility] Differential cell count method Nom (Bld) Auto [facility] Eosinophils (Bld) [#/Vol] 0.26 10*3/uL [facility] Eosinophils/100 WBC (Bld) 6.3 % [facility] Erythrocyte distribution width (RBC) [Ratio] 18 % High 11.5 - 15.0 % [facility] Hematocrit (Bld) [Volume fraction] 31.6 % Low 39.0 - 51.0 % [facility] Hemoglobin (Bld) [Mass/Vol] 9.9 g/dL Low 13.0 - 17.0 g/dL [facility] Immature granulocytes (Bld) [#/Vol] [facility] Immature granulocytes/100 WBC (Bld) 0.5 % [facility] Interpretation and review of laboratory results Abnormal [facility] Lymphocytes (Bld) [#/Vol] 0.41 10*3/uL Low [facility] Lymphocytes/100 WBC (Bld) 9.9 % [facility] MCH (RBC) [Entitic mass] 28.4 pg 26.0 - 34.0 pg [facility] MCHC (RBC) [Mass/Vol] 31.3 g/dL 30.5 - 36.0 g/dL [facility] MCV (RBC) [Entitic vol] 90.5 fL 80.0 - 100.0 fL [facility] Monocytes (Bld) [#/Vol] 0.73 10*3/uL [facility] Monocytes/100 WBC (Bld) 17.6 % [facility] Neutrophils (Bld) [#/Vol] 2.69 10*3/uL [facility] Neutrophils/100 WBC (Bld) 65 % [facility] Nucleated RBC (Bld) [#/Vol] [facility] Nucleated RBC/100 WBC (Bld) [Ratio] 0 % /100 WBC [facility] Platelet mean volume (Bld) [Entitic vol] 8.8 fL Low 9.0 - 12.7 fL [facility] Platelets (Bld) [#/Vol] 141 10*3/uL Low [facility] RBC (Bld) [#/Vol] 3.49 10*6/uL Low 4.20 - 6.0 0 m/uL [facility] WBC (Bld) [#/Vol] 4.14 10*3/uL [facility] Basophils (Bld) [#/Vol] 0.03 10*3/uL Normal <0.11 [facility] Comment on above: Order Comment: Speci men Type: BLOOD SPECIMENOrdering Facility: [facility] Address: [address] [place] [address] Performed By: #### 5 7021-8 ####[facility] MILLTOWNCLIA [id number] [place] [address] [place] Basophils/100 WBC (Bld) 0.7 % Normal [facility] Comment on above: Order Comment: Speci men Type: BLOOD SPECIMENOrdering Facility: [facility] Address: [address] [place] [address] Performed By: #### 5 7021-8 ####[facility]PITALNCLIA [id number] [place] [address] [place] Differential cell count method Nom (Bld) Auto Normal [facility] Comment on above: Order Comment: Speci men Type: BLOOD SPECIMENOrdering Facility: [facility] Address: [address] [place] [address] Performed By: #### 5 7021-8 ####[facility] MILLTOWNCLIA [id number] [place] [address] [place] Eosinophils (Bld) [#/Vol] 0.26 10*3/uL Normal <0.46 [facility] Comment on above: Order Comment: Speci men Type: BLOOD SPECIMENOrdering Facility: [facility] Address: [address] [place] [address] Performed By: #### 5 7021-8 ####[facility]ITALNCLIA [id number] [place] [address] [place] Eosinophils/100 WBC (Bld) 6.3 % Normal [facility] Comment on above: Order Comment: Speci men Type: BLOOD SPECIMENOrdering Facility: [facility] Address: [address] [place] [address] Performed By: #### 5 7021-8 ####[facility] HOSPITALROJAS [id number] [place] [address] [place] Erythrocyte distribution width (RBC) [Ratio] 18.0 % High 11.5-15.0 [facility] Comment on above: Order Comment: Speci men Type: BLOOD SPECIMENOrdering Facility: [facility] Address: [address] [place] [address] Performed By: #### 5 7021-8 ####[facility] [id number] [place] [address] [place] Hematocrit (Bld) [Volume fraction] 31.6 % Low 39.0-51.0 [facility] Comment on above: Order Comment: Speci men Type: BLOOD SPECIMENOrdering Facility: [facility] Address: [address] [place] [address] Performed By: #### 5 7021-8 ####[facility] HOSPITALEDGARLIA [id number] [place] [address] [place] Hemoglobin (Bld) [Mass/Vol] 9.9 g/dL Low 13.0-17.0 [facility] Comment on above: Order Comment: Speci men Type: BLOOD SPECIMENOrdering Facility: [facility] Address: [address] [place] [address] Performed By: #### 5 7021-8 ####[facility]PITALNCLIA [id number] [place] [address] [place] Immature granulocytes (Bld) [#/Vol] 10*3/uL Normal <0.10 [facility] Comment on above: Order Comment: Speci men Type: BLOOD SPECIMENOrdering Facility: [facility] Address: [address] [place] [address] Performed By: #### 5 7021-8 ####[facility] [id number] [place] [address] [place] Immature granulocytes/100 WBC (Bld) 0.5 % Normal [facility] Comment on above: Order Comment: Speci men Type: BLOOD SPECIMENOrdering Facility: [facility] Address: [address] [place] [address] Performed By: #### 5 7021-8 ####[facility] [id number] [place] [address] [place] Lymphocytes (Bld) [#/Vol] 0.41 10*3/uL Low 1.00-4.00 [facility] Comment on above: Order Comment: Speci men Type: BLOOD SPECIMENOrdering Facility: [facility] Address: [address] [place] [address] Performed By: #### 5 7021-8 ####[facility] [id number] [place] [address] [place] Lymphocytes/100 WBC (Bld) 9.9 % Normal [facility] Comment on above: Order Comment: Speci men Type: BLOOD SPECIMENOrdering Facility: [facility] Address: [address] [place] [address] Performed By: #### 5 7021-8 ####[facility] [id number] [place] [address] [place] MCH (RBC) [Entitic mass] 28.4 pg Normal 26.0-34.0 [facility] Comment on above: Order Comment: Speci men Type: BLOOD SPECIMENOrdering Facility: [facility] Address: [address] [place] [address] Performed By: #### 5 7021-8 ####[facility] AMBERLaurenNCLIA [id number] [place] [address] [place] MCHC (RBC) [Mass/Vol] 31.3 g/dL Normal 30.5-36.0 [facility] Comment on above: Order Comment: Speci men Type: BLOOD SPECIMENOrdering Facility: [facility] Address: [address] [place] [address] Performed By: #### 5 7021-8 ####[facility] HOSPITALNCA [id number] [place] [address] [place] MCV (RBC) [Entitic vol] 90.5 fL Normal 80.0-100.0 [facility] Comment on above: Order Comment: Speci men Type: BLOOD SPECIMENOrdering Facility: [facility] Address: [address] [place] [address] Performed By: #### 5 7021-8 ####[facility] [id number] [place] [address] [place] Monocytes (Bld) [#/Vol] 0.73 10*3/uL Normal <0.87 [facility] Comment on above: Order Comment: Speci men Type: BLOOD SPECIMENOrdering Facility: [facility] Address: [address] [place] [address] Performed By: #### 5 7021-8 ####[facility] HOSPITALLIA [id number] [place] [address] [place] Monocytes/100 WBC (Bld) 17.6 % Normal [facility] Comment on above: Order Comment: Speci men Type: BLOOD SPECIMENOrdering Facility: [facility] Address: [address] [place] [address] Performed By: #### 5 7021-8 ####[facility] [id number] [place] [address] [place] Neutrophils (Bld) [#/Vol] 2.69 10*3/uL Normal 1.45-7.50 [facility] Comment on above: Order Comment: Speci men Type: BLOOD SPECIMENOrdering Facility: [facility] Address: [address] [place] [address] Performed By: #### 5 7021-8 ####[facility] HOSPITALA [id number] [place] [address] [place] Neutrophils/100 WBC (Bld) 65.0 % Normal [facility] Comment on above: Order Comment: Speci men Type: BLOOD SPECIMENOrdering Facility: [facility] Address: [address] [place] [address] Performed By: #### 5 7021-8 ####[facility]PITALNCLAKEVIEW HOSPITAL [id number] [place] [address] [place] Nucleated RBC (Bld) [#/Vol] 10*3/uL Normal <0.01 [facility] Comment on above: Order Comment: Speci men Type: BLOOD SPECIMENOrdering Facility: [facility] Address: [address] [place] [address] Performed By: #### 5 7021-8 ####[facility] HOSPITALLI [id number] [place] [address] [place] Nucleated RBC/100 WBC (Bld) [Ratio] 0.0 /100 WBC Normal [facility] Comment on above: Order Comment: Speci men Type: BLOOD SPECIMENOrdering Facility: [facility] Address: [address] [place] [address] Performed By: #### 5 7021-8 ####[facility] HOSPITALNCLI [id number] [place] [address] [place] Platelet mean volume (Bld) [Entitic vol] 8.8 fL Low 9.0-12.7 [facility] Comment on above: Order Comment: Speci men Type: BLOOD SPECIMENOrdering Facility: [facility] Address: [address] [place] [address] Performed By: #### 5 7021-8 ####[facility] HOSPITALNCCOOKIEA [id number] [place] [address] [place] Platelets (Bld) [#/Vol] 141 10*3/uL Low 150-400 [facility] Comment on above: Order Comment: Speci men Type: BLOOD SPECIMENOrdering Facility: [facility] Address: [address] [place] [address] Performed By: #### 5 7021-8 ####[facility] HOSPITALNCA [id number] [place] [address] [place] RBC (Bld) [#/Vol] 3.49 10*6/uL Low 4.20-6.00 [facility] Comment on above: Order Comment: Speci men Type: BLOOD SPECIMENOrdering Facility: [facility] Address: [address] [place] [address] Performed By: #### 5 7021-8 ####[facility] HOSPITALNCA [id number] [place] [address] [place] WBC (Bld) [#/Vol] 4.14 10*3/uL Normal 3.70-11.00 [facility] Comment on above: Order Comment: Speci men Type: BLOOD SPECIMENOrdering Facility: [facility] Address: [address] [place] [address] Performed By: #### 5 7021-8 ####[facility]OSPITALNCLIA [id number] [place] [address] [place] CNOVSPon 01-04-2025 CNOVSP Visit (SP) Office (HEMAWS) -------- JAYLEN GALAVIZ ([id number]) 1935 M Date Time Provider Department 01/04/25 10:10 AM HA LUQUE During your visit today, we recorded the following information about you: Temperature Pulse Blood pressure Weight 97 degrees 56/minute 156/70 93 kg Ha Luque MD 01/04/2025 10:38 AM Signed (Elements copied from my note dated December 14, 2024, have been reviewed and updated where appropriate, and all reflect current assessment and medical decision making from today's encounter, January 04, 2025) HISTORY OF PRESENT ILLNESS: Jaylen Galaviz is a 89 year old male referred for pancytopenia. Had RT to prostate 2022 [facility]. WBC 2.7-3.1 in September, hgb 9.5 to 10.2. platelts ok., cbc overall pretty stable over last year. Colonoscopy about a year ago Seen initially for evaluation. Notes no bleeding or black stool. Here for follow up , reviewed labs. All stable, probably not needing epo at this time. CrCl 55 CKD stage 3a CLINICAL IMPRESSION: Anemia, leukopenia mild, amy relates to prior prostate radiation, counts have been pretty stable over the past year or more. RECOMMENDATION/PLAN: 1. Back in 3 months with cbc, possible aranesp if hgb gets much lower Written and verbal health teaching given to patient, patient verbalizes understanding and agrees with treatment plan. 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 Benign hypertension Bilateral leg pain CAD in [place] artery Centrilobular emphysema (HCC) CKD (chronic kidney disease) stage 3, GFR 30-59 ml/min (HCC) Diabetes mellitus (HCC) MAZARIEGOS (dyspnea on exertion) Dysuria Elevated brain natriuretic peptide (BNP) level Fatigue Fatty infiltration of liver Ground glass opacity present on imaging of lung History of echocardiogram 09/30/2017 EF 55-60% grade 1 diastolic dysfunction aortic valve bioprosthesis is present and functioning normally mild TR History of echocardiogram 08/18/2020 concentric LVH EF 55-60% grade 1 diastolic dysfunction mild MR History of echocardiogram 08/18/2020 EF 55-60% grade 1 diastolic dysfunction normally functioning bioprosthetic valve mean gradient 13mmHg mild MR History of stress test 08/22/2018 no evidence of ischemia or infarction abnormal septal motion EF 59% Lung nodule seen on imaging study Mixed hyperlipidemia Myalgia Obesity (BMI 30-39.9) ROBERT (obstructive sleep apnea) PMR (polymyalgia rheumatica) (HCC) Pulmonary fibrosis (HCC) 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 [facility] 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 HUERTA to the LAD SVG to the circumflex SOB (shortness of breath) Venous insufficiency of both lower extremities Vitamin D deficiency PAST SURGICAL HISTORY Procedure Laterality Date CATARACT EXTRACTION HX Bilateral CORONARY ARTERY BYPASS GRAFT REVISE MEDIAN N/CARPAL TUNNEL SURG Right FAMILY HISTORY Problem Relation Age of Onset Heart Mother Heart Father Social History Tobacco Use Smoking status: Never Passive exposure: Never Smokeless tobacco: Never Vaping Use Vaping status: Never Used Substance Use Topics Alcohol use: Not Currently Drug use: Never ALLERGIES: ALLERGIES Allergen Reactions Rosuvastatin Myalgia CURRENT OUTPATIENT MEDICATIONS: SITagliptin phosphate (JANUVIA) 25 mg tablet Take 25 mg by mouth once daily. ascorbic acid, vitamin C, (VITAMIN C) 500 mg tablet Take 500 mg by mouth once daily. leflunomide (ARAVA) 10 mg tablet Take 10 mg by mouth once daily. glimepiride (AMARYL) 1 mg tablet Take 1 mg by mouth two times a day with meals. CPAP daily at bedtime. lisinopril (ZESTRIL, PRINIVIL) 40 mg tablet Take 40 mg by mouth once daily. Multivitamin capsule Take 1 capsule by mouth once daily. pantoprazole DR (PROTONIX) 40 mg tablet Take 40 mg by mouth once daily. diphenhydrAMINE-Acetamin ophen (TYLENOL PM EXTRA STRENGTH) 25-500 mg tab Take 2 tablets by mouth daily at bedtime. cholecalciferol (VITAMIN D-3) 50 mcg (2,000 unit) tablet Take 5,000 Units by mouth once daily. ferrous sulfate (FEOSOL) 325 mg (65 mg iron) tablet 325 mg. (Patient not taking: Reported on 12/14/2024) mupirocin (BACTROBAN) 2 % ointment Apply 1 application to affected area three times a day. (Patient not taking: Reported on 12/14/2024) aspirin, enteric coated (ASPIRIN, ENTERIC COATED) 81 mg EC tablet Take 81 mg by mouth once daily. (Patient not taking: Reported on 12/14/2024) SITagliptin-metFORMIN (JANUMET) 50-1,000 mg per tablet Take 1 tablet by mouth twice daily with meals. (Patient not taking: Reported on 12/14/2024) hydrOXYchloroQUINE (PLAQUENIL) 200 mg tablet Conrado (more content not included)... Normal [facility] CBC W Auto Differential pane l (Bld)on 12-14-2024 Basophils (Bld) [#/Vol] [facility] Basophils/100 WBC (Bld) 0.6 % [facility] Differential cell count method Nom (Bld) Auto [facility] Eosinophils (Bld) [#/Vol] 0.22 10*3/uL [facility] Eosinophils/100 WBC (Bld) 6.2 % [facility] Erythrocyte distribution width (RBC) [Ratio] 18.6 % High 11.5 - 15.0 % [facility] Hematocrit (Bld) [Volume fraction] 30.2 % Low 39.0 - 51.0 % [facility] Hemoglobin (Bld) [Mass/Vol] 9.5 g/dL Low 13.0 - 17.0 g/dL [facility] Immature granulocytes (Bld) [#/Vol] [facility] Immature granulocytes/100 WBC (Bld) 0.6 % [facility] Interpretation and review of laboratory results Abnormal [facility] Lymphocytes (Bld) [#/Vol] 0.47 10*3/uL Low [facility] Lymphocytes/100 WBC (Bld) 13.2 % [facility] MCH (RBC) [Entitic mass] 28.5 pg 26.0 - 34.0 pg [facility] MCHC (RBC) [Mass/Vol] 31.5 g/dL 30.5 - 36.0 g/dL [facility] MCV (RBC) [Entitic vol] 90.7 fL 80.0 - 100.0 fL [facility] Monocytes (Bld) [#/Vol] 0.48 10*3/uL NINF [facility] Monocytes/100 WBC (Bld) 13.5 % [facility] Neutrophils (Bld) [#/Vol] 2.35 10*3/uL [facility] Neutrophils/100 WBC (Bld) 65.9 % [facility] Nucleated RBC (Bld) [#/Vol] NINF [facility] Nucleated RBC/100 WBC (Bld) [Ratio] 0 % /100 WBC [facility] Platelet mean volume (Bld) [Entitic vol] 9.1 fL 9.0 - 12.7 fL [facility] Platelets (Bld) [#/Vol] 147 10*3/uL Low [facility] RBC (Bld) [#/Vol] 3.33 10*6/uL Low 4.20 - 6.0 0 m/uL [facility] WBC (Bld) [#/Vol] 3.56 10*3/uL Low [facility] Basophils (Bld) [#/Vol] 10*3/uL Normal <0.11 [facility] Comment on above: Order Comment: Speci men Type: BLOOD SPECIMENOrdering Facility: [facility] Address: [address] [place] [address] Performed By: #### 1 4196-0, 75945-5 ####[facility] [id number] [place] [address] [place] Basophils/100 WBC (Bld) 0.6 % Normal [facility] Comment on above: Order Comment: Speci men Type: BLOOD SPECIMENOrdering Facility: [facility] Address: [address] [place] [address] Performed By: #### 1 4196-0, 14274-2 ####[facility] [id number] [place] [address] [place] Differential cell count method Nom (Bld) Auto Normal [facility] Comment on above: Order Comment: Speci men Type: BLOOD SPECIMENOrdering Facility: [facility] Address: [address] [place] [address] Performed By: #### 1 4196-0, 64518-8 ####[facility] AMBERSAINT LOUISVILLEROJAS [id number] [place] [address] [place] Eosinophils (Bld) [#/Vol] 0.22 10*3/uL Normal <0.46 [facility] Comment on above: Order Comment: Speci men Type: BLOOD SPECIMENOrdering Facility: [facility] Address: [address] [place] [address] Performed By: #### 1 4196-0, 61385-1 ####[facility] HOSPITALEDGARKerri [id number] [address] [place] Eosinophils/100 WBC (Bld) 6.2 % Normal [facility] Comment on above: Order Comment: Speci men Type: BLOOD SPECIMENOrdering Facility: [facility] Address: [address] [place] [address] Performed By: #### 1 4196-0, 80892-0 ####[facility] HOSPITALA [id number] [place] [address] [place] Erythrocyte distribution width (RBC) [Ratio] 18.6 % High 11.5-15.0 [facility] Comment on above: Order Comment: Speci men Type: BLOOD SPECIMENOrdering Facility: [facility] Address: [address] [place] [address] Performed By: #### 1 4196-0, 98932-2 ####[facility] HOSPITALLIA [id number] [address] [place] Hematocrit (Bld) [Volume fraction] 30.2 % Low 39.0-51.0 [facility] Comment on above: Order Comment: Speci men Type: BLOOD SPECIMENOrdering Facility: [facility] Address: [address] [place] [address] Performed By: #### 1 4196-0, 94292-7 ####[facility]OSPITALNCLIA [id number] [place] [address] [place] Hemoglobin (Bld) [Mass/Vol] 9.5 g/dL Low 13.0-17.0 [facility] Comment on above: Order Comment: Speci men Type: BLOOD SPECIMENOrdering Facility: [facility] Address: [address] [place] [address] Performed By: #### 1 4196-0, 13956-2 ####[facility]OSPITALNCLIA [id number] [place] [address] [place] Immature granulocytes (Bld) [#/Vol] 10*3/uL Normal <0.10 [facility] Comment on above: Order Comment: Speci men Type: BLOOD SPECIMENOrdering Facility: [facility] Address: [address] [place] [address] Performed By: #### 1 4196-0, 41713-8 ####[facility]ITALNCLIA [id number] [place] [address] [place] Immature granulocytes/100 WBC (Bld) 0.6 % [facility] Comment on above: Order Comment: Speci men Type: BLOOD SPECIMENOrdering Facility: [facility] Address: [address] [place] [address] Performed By: #### 1 4196-0, 97061-3 ####[facility] HOSPITALLIA [id number] [place] [address] [place] Lymphocytes (Bld) [#/Vol] 0.47 10*3/uL Low 1.00-4.00 [facility] Comment on above: Order Comment: Speci men Type: BLOOD SPECIMENOrdering Facility: [facility] Address: [address] [place] [address] Performed By: #### 1 4196-0, 63270-3 ####[facility] HOSPITALLIA [id number] [place] [address] [place] Lymphocytes/100 WBC (Bld) 13.2 % Normal [facility] Comment on above: Order Comment: Speci men Type: BLOOD SPECIMENOrdering Facility: [facility] Address: [address] [place] [address] Performed By: #### 1 4196-0, 76837-5 ####[facility] AMBERSAINT LOUISVILLEROJAS [id number] [place] [address] [place] MCH (RBC) [Entitic mass] 28.5 pg Normal 26.0-34.0 [facility] Comment on above: Order Comment: Speci men Type: BLOOD SPECIMENOrdering Facility: [facility] Address: [address] [place] [address] Performed By: #### 1 4196-0, 88597-7 ####[facility]OSPITALROJAS [id number] [place] [address] [place] MCHC (RBC) [Mass/Vol] 31.5 g/dL Normal 30.5-36.0 [facility] Comment on above: Order Comment: Speci men Type: BLOOD SPECIMENOrdering Facility: [facility] Address: [address] [place] [address] Performed By: #### 1 4196-0, 19313-6 ####[facility] AMBERSAINT LOUISVILLEROJAS [id number] [place] [address] [place] MCV (RBC) [Entitic vol] 90.7 fL Normal 80.0-100.0 [facility] Comment on above: Order Comment: Speci men Type: BLOOD SPECIMENOrdering Facility: [facility] Address: [address] [place] [address] Performed By: #### 1 4196-0, 44197-0 ####[facility] AMBERSAINT LOUISVILLEROJAS [id number] [place] [address] [place] Monocytes (Bld) [#/Vol] 0.48 10*3/uL Normal <0.87 [facility] Comment on above: Order Comment: Speci men Type: BLOOD SPECIMENOrdering Facility: [facility] Address: [address] [place] [address] Performed By: #### 1 4196-0, 01286-6 ####[facility] HOSPITALIBETHA [id number] [place] [address] [place] Monocytes/100 WBC (Bld) 13.5 % Normal [facility] Comment on above: Order Comment: Speci men Type: BLOOD SPECIMENOrdering Facility: [facility] Address: [address] [place] [address] Performed By: #### 1 4196-0, 79526-5 ####[facility]OSPITALROJAS [id number] [place] [address] [place] Neutrophils (Bld) [#/Vol] 2.35 10*3/uL Normal 1.45-7.50 [facility] Comment on above: Order Comment: Speci men Type: BLOOD SPECIMENOrdering Facility: [facility] Address: [address] [place] [address] Performed By: #### 1 4196-0, 77481-9 ####[facility]ITALROJAS [id number] [place] [address] [place] Neutrophils/100 WBC (Bld) 65.9 % Normal [facility] Comment on above: Order Comment: Speci men Type: BLOOD SPECIMENOrdering Facility: [facility] Address: [address] [place] [address] Performed By: #### 1 4196-0, 50550-6 ####[facility]ITALNCLIA [id number] [place] [address] [place] Nucleated RBC (Bld) [#/Vol] 10*3/uL Normal <0.01 [facility] Comment on above: Order Comment: Speci men Type: BLOOD SPECIMENOrdering Facility: [facility] Address: [address] [place] [address] Performed By: #### 1 4196-0, 74688-6 ####[facility]OSPITALNCA [id number] [place] [address] [place] Nucleated RBC/100 WBC (Bld) [Ratio] 0.0 /100 WBC Normal [facility] Comment on above: Order Comment: Speci men Type: BLOOD SPECIMENOrdering Facility: [facility] Address: [address] [place] [address] Performed By: #### 1 4196-0, 80020-6 ####[facility]ITALNCLAKEVIEW HOS[facility]ITAL [id number] [place] [address] [place] Platelet mean volume (Bld) [Entitic vol] 9.1 fL Normal 9.0-12.7 [facility] Comment on above: Order Comment: Speci men Type: BLOOD SPECIMENOrdering Facility: [facility] Address: [address] [place] [address] Performed By: #### 1 4196-0, 28438-0 ####[facility]PITALA [id number] [place] [address] [place] Platelets (Bld) [#/Vol] 147 10*3/uL Low 150-400 [facility] Comment on above: Order Comment: Speci men Type: BLOOD SPECIMENOrdering Facility: [facility] Address: [address] [place] [address] Performed By: #### 1 4196-0, 39881-0 ####[facility]ITALNCLI [id number] [place] [address] [place] RBC (Bld) [#/Vol] 3.33 10*6/uL Low 4.20-6.00 [facility] Comment on above: Order Comment: Speci men Type: BLOOD SPECIMENOrdering Facility: [facility] Address: [facility] [place] [id number] Performed By: #### 1 4196-0, 80425-7 ####[facility]ITALNCLIA [id number] [place] [address] [place] WBC (Bld) [#/Vol] 3.56 10*3/uL Low 3.70-11.00 [facility] Comment on above: Order Comment: Speci men Type: BLOOD SPECIMENOrdering Facility: [facility] Address: [facility] [place] [address] Performed By: #### 1 4196-0, 26749-1 ####[facility]ITALNCLIA [id number] [address] [place] CNOVSPon 12-14-2024 CNOVSP Visit (SP) Office (HEMAWS) -------- JAYLEN GALAVIZ ([id number]) 1935 M Date Time Provider Department 12/14/24 1:00 PM HA LUQUE During your visit today, we recorded the following information about you: Temperature Pulse Blood pressure Weight 97.2 degrees 66/minute 167/64 95.3 kg Height 1.778 m Ha Luque MD 12/14/2024 1:28 PM Signed HISTORY OF PRESENT ILLNESS: Jaylen Pina Guillaume is a 89 year old male referred for pancytopenia. Had RT to prostate 2022 [facility]. WBC 2.7-3.1 in September, hgb 9.5 to 10.2. platelts ok., cbc overall pretty stable over last year. Colonoscopy about a year ago Here for evaluation. Notes no bleeding or black stool. CLINICAL IMPRESSION: Anemia, leukopenia mild, amy relates to prior prostate radiation, counts have been pretty stable over the past year or more. RECOMMENDATION/PLAN: 1. Will check labs today assess role of rhEPO 2. Otherwise plan to watch cbc Written and verbal health teaching given to patient, patient verbalizes understanding and agrees with treatment plan. 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 Benign hypertension Bilateral leg pain CAD in [place] artery Centrilobular emphysema (HCC) CKD (chronic kidney disease) stage 3, GFR 30-59 ml/min (HCC) Diabetes mellitus (HCC) MAZARIEGOS (dyspnea on exertion) Dysuria Elevated brain natriuretic peptide (BNP) level Fatigue Fatty infiltration of liver Ground glass opacity present on imaging of lung History of echocardiogram 09/30/2017 EF 55-60% grade 1 diastolic dysfunction aortic valve bioprosthesis is present and functioning normally mild TR History of echocardiogram 08/18/2020 concentric LVH EF 55-60% grade 1 diastolic dysfunction mild MR History of echocardiogram 08/18/2020 EF 55-60% grade 1 diastolic dysfunction normally functioning bioprosthetic valve mean gradient 13mmHg mild MR History of stress test 08/22/2018 no evidence of ischemia or infarction abnormal septal motion EF 59% Lung nodule seen on imaging study Mixed hyperlipidemia Myalgia Obesity (BMI 30-39.9) ROBERT (obstructive sleep apnea) PMR (polymyalgia rheumatica) ([facility]) Pulmonary fibrosis ([facility]) 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 [facility] 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 HUERTA to the LAD SVG to the circumflex SOB (shortness of breath) Venous insufficiency of both lower extremities Vitamin D deficiency History reviewed. No pertinent surgical history. FAMILY HISTORY Problem Relation Age of Onset Heart Mother Heart Father Social History Tobacco Use Smoking status: Never Passive exposure: Never Smokeless tobacco: Never Vaping Use Vaping status: Never Used Substance Use Topics Alcohol use: Not Currently Drug use: Never ALLERGIES: ALLERGIES Allergen Reactions Rosuvastatin Myalgia CURRENT OUTPATIENT MEDICATIONS: SITagliptin phosphate (JANUVIA) 25 mg tablet Take 25 mg by mouth once daily. ascorbic acid, vitamin C, (VITAMIN C) 500 mg tablet Take 500 mg by mouth once daily. leflunomide (ARAVA) 10 mg tablet Take 10 mg by mouth once daily. glimepiride (AMARYL) 1 mg tablet Take 1 mg by mouth two times a day with meals. CPAP daily at bedtime. lisinopril (ZESTRIL, PRINIVIL) 40 mg tablet Take 40 mg by mouth once daily. Multivitamin capsule Take 1 capsule by mouth once daily. pantoprazole DR (PROTONIX) 40 mg tablet Take 40 mg by mouth once daily. diphenhydrAMINE-Acetamin ophen (TYLENOL PM EXTRA STRENGTH) 25-500 mg tab Take 2 tablets by mouth daily at bedtime. cholecalciferol (VITAMIN D-3) 50 mcg (2,000 unit) tablet Take 5,000 Units by mouth once daily. ferrous sulfate (FEOSOL) 325 mg (65 mg iron) tablet 325 mg. (Patient not taking: Reported on 12/14/2024) mupirocin (BACTROBAN) 2 % ointment Apply 1 application to affected area three times a day. (Patient not taking: Reported on 12/14/2024) aspirin, enteric coated (ASPIRIN, ENTERIC COATED) 81 mg EC tablet Take 81 mg by mouth once daily. (Patient not taking: Reported on 12/14/2024) SITagliptin-metFORMIN (JANUMET) 50-1,000 mg per tablet Take 1 tablet by mouth twice daily with meals. (Patient not taking: Reported on 12/14/2024) hydrOXYchloroQUINE (PLAQUENIL) 200 mg tablet Take 200 mg by mouth two times a day. (Patient not taking: Reported on 12/14/2024) saw palmetto/pumpkin/pyg/Zn/ B6 (SAW PALMETTO COMPLEX,PUMPK-ZN, ORAL) Take by mouth once daily. (Patient not taking: Reported on 12/14/2024) Vitamin E, dl, acetate, (VITAMIN E) 400 unit capsule Take 400 Units by mouth once daily. (Patient not taking: Reported on 12/14/2024) REVIEW OF SYSTEMS: GENERAL: No fever, night swe (more content not included)... Normal [facility] Creatinine + eGFR Pnl SerPlB ldon 12-14-2024 Creatinine and Glomerular filtration rate.predicted panel (S/P/Bld) 58 mL/min/1.73m??? Low >=60 [facility] Comment on above: Order Comment: Olga suarez Type: BLOOD SPECIMENOrdering Facility: [facility] Address: [address] [place] [address] Result Comment: Liliane mated Glomerular Filtration Rate (eGFR) is calculated using the 2020 CKD-EPI creatinine equation. This equation utilizes serum creatinine, sex, and age as parameters. The creatinine assay has traceable calibration to isotope dilution-mass spectrometry. Refer to KDIGO guidelines for clinical interpretation. In patients with unstable renal function, e.g. those with acute kidney injury, the eGFR may not accurately reflect actual GFR. Performed By: #### 4 5066-8 ####[facility] [id number] [address] OF [facility] Creatinine and Glomerular fi ltration rate.predicted panel (S/P/Bld)Ordered By: Desi Martin on 12-14-2024 Creatinine [Mass/Vol] 1.21 mg/dL 0.73 - 1.22 mg/dL [facility] GFR/1.73 sq M.predicted among non-blacks MDRD (S/P/Bld) [Vol rate/Area] 58 mL/min/{1.73_m2} Low - PINF [facility] Comment on above: Estimated Glomerular Filtration Rate (eGFR) is calculated using the 2020 CKD-EPI creatinine equation. This equation utilizes serum creatinine, sex, and age as parameters. The creatinine assay has traceable calibration to isotope dilution-mass spectrometry. Refer to KDIGO guidelines for clinical interpretation. In patients with unstable renal function, e.g. those with acute kidney injury, the eGFR may not accurately reflect actual GFR. Interpretation and review of laboratory results Abnormal [facility] Creatinine and Glomerular fi ltration rate.predicted panel (S/P/Bld)on 12-14-2024 Creatinine [Mass/Vol] 1.21 mg/dL Normal 0.73-1.22 [facility] Comment on above: Order Comment: Olga suarez Type: BLOOD SPECIMENOrdering Facility: [facility] Address: [address] [place] [address] Performed By: #### 4 5066-8 ####[facility]ITALA [id number] [place] [id number] [place] Ferritin SerPl-mCncon 2024 Ferritin [Mass/Vol] 90.0 ng/mL Normal 30.3-565.7 [facility] Comment on above: Order Comment: Speci men Type: BLOOD SPECIMENOrdering Facility: [facility] Address: [address] [place] [address] Performed By: #### 4 542-7, 68738-2, 2276-4 ####[facility] LABIA [id number] [place] [address] [place] Folate SerPl-mCncon 12-15-19 Folate [Mass/Vol] 13.5 ng/mL Normal >4.7 [facility] Comment on above: Order Comment: Speci men Type: BLOOD SPECIMENOrdering Facility: [facility] Address: [address] [place] [address] Performed By: #### 2 132-9, 2284-8 ####[facility] LABIA [id number] [place] [address] [place] Haptoglob SerPl-mCncon 12-14 Haptoglobin [Mass/Vol] 50 mg/dL Normal 31-[address] [facility] Comment on above: Order Comment: Speci men Type: BLOOD SPECIMENOrdering Facility: [facility] Address: [address] [place] [address] Performed By: #### 4 542-7, 02863-9, 2276-4 ####[facility] LABIA [id number] [place] [address] [place] Iron and Iron binding capaci ty panelon 12-14-2024 Iron [Mass/Vol] 57 ug/dL Normal 41-186 [facility] Comment on above: Order Comment: Speci men Type: BLOOD SPECIMENOrdering Facility: [facility] Address: [address] [place] [address] Performed By: #### 4 542-7, 76200-2, 6-4 ####[facility] LABCLIA [id number] [place] [id number] [place] Iron binding capacity [Mass/Vol] 373 ug/dL Normal 232-386 [facility] Comment on above: Order Comment: Speci men Type: BLOOD SPECIMENOrdering Facility: [facility] Address: [address] [place] [address] Performed By: #### 4 542-7, 57361-7, 4 ####[facility] LABCLIA [id number] [place] [id number] [place] Iron/TIBC [Molar ratio] 15.3 % Normal 15.0-57.0 [facility] Comment on above: Order Comment: Speci men Type: BLOOD SPECIMENOrdering Facility: [facility] Address: [address] [place] [address] Performed By: #### 4 542-7, 49128-4, 4 ####[facility] LABCLIA [id number] [place] [id number] [place] No Panel Informationon 12-14 [facility] RETICULOCYTE COUNTon 025 Reticulocytes (Bld) [#/Vol] 0.047 10*3/uL [facility] Retics #on 12-14-2024 Reticulocytes (Bld) [#/Vol] 0.70096 10*3/uL Normal 0.018-0.100 [facility] Comment on above: Order Comment: Speci men Type: BLOOD SPECIMENOrdering Facility: [facility] Address: [address] [place] [address] Performed By: #### 1 4196-0, 95142-5 ####[facility] [id number] [address] [place] Reticulocytes (Bld) [#/Vol]o n 12-14-2024 Interpretation and review of laboratory results Normal [facility] Reticulocytes/100 RBC (Bld) 1.4 % 0.4 - 2.0 % [facility] Reticulocytes/100 RBC (Bld) 1.4 % Normal 0.4-2.0 [facility] Comment on above: Order Comment: Olga suarez Type: BLOOD SPECIMENOrdering Facility: [facility] Address: [address] [place] [address] Performed By: #### 1 4196-0, 26619-0 ####[facility] [id number] [place] [address] [place] Vit B12 SerPl-ncon 025 Cobalamin (Vitamin B12) [Mass/Vol] 498 pg/mL Normal 232-1245 [facility] Comment on above: Order Comment: Olga suarez Type: BLOOD SPECIMENOrdering Facility: [facility] Address: [address] [place] [address] Performed By: #### 2 132-9, 2284-8 ####[facility] LABCLIA [id number] [address] [place] CNOVon 11-29-2024 CNOV Office Visit (MMAS ) -------- JAYLEN GALAVIZ ([id number]) 1935 M Date Time Provider Department 11/29/24 10:45 AM [facility] During your visit today, we recorded the following information about you: Temperature Pulse Respiration Blood pressure 98.1 degrees 94/minute 18/minute 132/64 Weight 92.5 kg Chelita Lawson LPN 11/29/2024 12:58 PM Signed Patient unable to verify medication list at this time. Chelita Lawson, Fabiola Hall, STANLEY.DAYTIME CAREGIVER 11/29/2024 12:58 PM Signed [facility] Nati Galaviz is a 89 year old male. Patient presents with: left upper arm pain: Patient states 6 days ago he fell off his tractor and went to catch himself - he is now having left upper arm pain Fell off tractor last week. And grabbed a bar to catch himself and pulled his arm. He did break that arm years ago. At first could not lift arm. He has been nursing it himself over the last week. Wrapped in delvin wrap. He went to his weekly therapy that he goes to help with conditioning wanted his arm evaluated. . Review of Systems HENT: Negative. Musculoskeletal: Positive for joint swelling and myalgias. Negative for neck pain and neck stiffness. Neurological: Negative. All other systems reviewed and are negative. Objective BP 132/64 Pulse 94 Temp 36.7 ?C (98.1 ?F) (Temporal) Resp 18 Wt 92.5 kg (204 lb) SpO2 98% BMI 28.45 kg/m? Physical Exam Vitals and nursing note reviewed. Constitutional: General: He is not in acute distress. Appearance: Normal appearance. He is not ill-appearing. Eyes: Extraocular Movements: Extraocular movements intact. Conjunctiva/sclera: Conjunctivae normal. Pupils: Pupils are equal, round, and reactive to light. Cardiovascular: Rate and Rhythm: Normal rate. Pulses: Normal pulses. Pulmonary: Effort: Pulmonary effort is normal. Musculoskeletal: General: Tenderness present. No swelling, deformity or signs of injury. Normal range of motion. Right shoulder: Normal. Left shoulder: No swelling or tenderness. Decreased strength. Normal pulse. Left upper arm: No swelling, edema, deformity, lacerations, tenderness or bony tenderness. Arms: Left lower leg: No edema. Comments: Empty can slightly decreased strength on left. No obvious deformity, pinpoint pain , ecchymosis or laxity. Skin: General: Skin is warm and dry. Capillary Refill: Capillary refill takes 2 to 3 seconds. Neurological: General: No focal deficit present. Mental Status: He is alert and oriented to person, place, and time. Cranial Nerves: No cranial nerve deficit. Sensory: No sensory deficit. Motor: No weakness. Coordination: Coordination normal. ASSESSMENT/PLAN: 1. Injury of left upper arm, initial encounter - ICD9: 959.2, ICD10: S49.92XA (primary diagnosis) - XR HUMERUS 2V AP/LAT LEFT- no acute finding. Bone mineralization is decreased. Slight cortical irregularity in the mid humeral shaft laterally is related to the deltoid attachment. There is no fracture or dislocation. Degenerative changes are present in the shoulder. 2. Biceps tendonitis on left - ICD9: 726.12, ICD10: M75.22 Discussed with patient regarding diagnosis and treatment. He will continue to wrap for comfort and tyelnol as needed. He will go to his therapist to discuss any additional exercised to aid in healing. He should refrain from lifting until healed and feeling better. Pt agreed with plan and discharged kailey Cross APRN.DAYTIME CAREGIVER MDM Procedures 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 APRN.CNP 11/29/2024 12:03 PM Signed OK to resume therapy. Follow printed instructions from Up to date. Follow up with PCP if no improvement in 1-2 weeks Referring Provider: SELF [200] Allergies As of Date: 11/29/2024 Noted Allergy Reaction ROSUVASTATIN 07/24/2020 17 - Myalgia Date Reviewed: 11/29/2024 Reviewed by: 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 APRN.DAYTIME CAREGIVER - Fully Assessed Reason for Visit: left upper arm pain [Other] Cmt: Patient states 6 days ago he fell off his tractor and went to catch himself - he is now having left upper arm pain Primary Visit Diagnosis:Injury of left upper arm, initial encounter [S49.92XA] Other Visit Diagnosis:Biceps tendonitis on left [M75.22] Order(s):XR HUMERUS 2V AP/LAT LEFT [[id number]] Order #: [id number] FUTURE Prescriptions as of 11/29/2024 - ascorbic acid, vitamin C, (VITAMIN C) 500 mg tablet Take by mouth every 24 hours. - ferrous sulfate (FEOSOL) 325 mg (65 mg iron) tablet 325 mg. - mupirocin (BACTROBAN) 2 % ointment Apply 1 application to affected area three times a day. - leflunomide (ARAVA) 10 mg tablet Take 10 mg by mouth once daily. - glimepiride (AMARYL) 1 mg tablet Take 1 mg by mouth two times a day with meals. - aspirin, enteric coated (ASPIRIN, ENTERIC COATED) 81 mg EC tablet Take 81 mg by mouth once daily. - CPAP - SITagliptin-metFOR (more content not included)... [facility] XR HUMERUS 2V AP/LAT LTon XR HUMERUS 2V AP/LAT LT * * *Final Report* * * DATE OF EXAM: Nov 29 2024 12:02PM [id number] [id number] - XR HUMERUS 2V AP/LAT LT / PROCEDURE REASON: Injury of left upper arm, initial encounter * * * * Physician Interpretation * * * * XR HUMERUS 2V AP/LAT LT Ordering Physician: FABIOLA CROSS LEFT HUMERUS 2 VIEWS Clinical Statement: Mid humerus pain, fall Comparison: None FINDINGS: Bone mineralization is decreased. Slight cortical irregularity in the mid humeral shaft laterally is related to the deltoid attachment. There is no fracture or dislocation. Degenerative changes are present in the shoulder. IMPRESSION: No acute osseous abnormality. [employer] Cutter Finger Buff Material: [facility]ht[facility] Transcribe Date/Time: Nov 29 2024 12:16P Dictated by : JEMMA SUH MD This examination was interpreted and the report reviewed and electronically signed by: JEMMA SUH MD on Nov 29 2024 12:16PM EST [id number] [facility] XR Humerus - left AP and Lat eralon 11-29-2024 IMPRESSION: No acute osseous abnormality. Sewer And Cutter Finger Buff Material: [facility] [place] Transcribe Date/Time: Nov 29 2024 12:16P Dictated by : JEMMA SUH MD This examination was interpreted and the report reviewed and electronically signed by: JEMMA SUH MD on Nov 29 2024 12:16PM EST [facility] * * *Final Report* * * DATE OF EXAM: Nov 29 2024 12:02PM [id number] [id number] - XR HUMERUS 2V AP/LAT LT / PROCEDURE REASON: Injury of left upper arm, initial encounter * * * * Physician Interpretation * * * * XR HUMERUS 2V AP/LAT LT Ordering Physician: FABIOLA CROSS LEFT HUMERUS 2 VIEWS Clinical Statement: Mid humerus pain, fall Comparison: None FINDINGS: Bone mineralization is decreased. Slight cortical irregularity in the mid humeral shaft laterally is related to the deltoid attachment. There is no fracture or dislocation. Degenerative changes are present in the shoulder. [facility] Provider, Nehemias Arevalo carrie Kelle - 11/29/2024 * * *Final Report* * * DATE OF EXAM: Nov 29 2024 12:02PM RMX 5354 - XR HUMERUS 2V AP/LAT LT / PROCEDURE REASON: Injury of left upper arm, initial encounter * * * * Physician Interpretation * * * * XR HUMERUS 2V AP/LAT LT Ordering Physician: FABIOLA CROSS LEFT HUMERUS 2 VIEWS Clinical Statement: Mid humerus pain, fall Comparison: None FINDINGS: Bone mineralization is decreased. Slight cortical irregularity in the mid humeral shaft laterally is related to the deltoid attachment. There is no fracture or dislocation. Degenerative changes are present in the shoulder. IMPRESSION IMPRESSION: No acute osseous abnormality. [employer] Finger Buff Material: PSCB Transcribe Date/Time: Nov 29 2024 12:16P Dictated by : JEMMA SUH MD This examination was interpreted and the report reviewed and electronically signed by: JEMMA SUH MD on Nov 29 2024 12:16PM [facility] Radiology Study observation (narrative) [facility] XR Humerus - left AP and Lat eralOrdered By: Ccf Provider on 11-29-2024 [facility] CNPCaro 11-28-2024 CNPN Telephone (CHARISMA) -------- JAYLEN GALAVIZ ([id number]) 1935 M Date Time Provider Department 11/28/24 HA LUQUE During your visit today, we recorded the following information about you: Shilpa Trivedi 11/28/2024 11:15 AM Signed Lvm for patient to return the call. 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 LONNIE POLLACK* Shilpa Wang [facility], [place] 12/03/2024 9:14 AM Signed Scheduled with patient Allergies As of Date: 11/28/2024 Noted Allergy Reaction ROSUVASTATIN 07/24/2020 17 - Myalgia Date Reviewed: 02/11/2024 Reviewed by: Barrett Huff PA-C - Fully Assessed Reason for Visit: New Patient [172] Prescriptions as of 12/03/2024 - ascorbic acid, vitamin C, (VITAMIN C) 500 mg tablet Take by mouth every 24 hours. - ferrous sulfate (FEOSOL) 325 mg (65 mg iron) tablet 325 mg. - mupirocin (BACTROBAN) 2 % ointment Apply 1 application to affected area three times a day. - leflunomide (ARAVA) 10 mg tablet Take 10 mg by mouth once daily. - glimepiride (AMARYL) 1 mg tablet Take 1 mg by mouth two times a day with meals. - aspirin, enteric coated (ASPIRIN, ENTERIC COATED) 81 mg EC tablet Take 81 mg by mouth once daily. - CPAP - SITagliptin-metFORMIN (JANUMET) 50-1,000 mg per tablet Take 1 tablet by mouth twice daily with meals. - lisinopril (ZESTRIL, PRINIVIL) 40 mg tablet Take 40 mg by mouth once daily. - Multivitamin capsule Take 1 capsule by mouth once daily. - pantoprazole DR (PROTONIX) 40 mg tablet Take 40 mg by mouth once daily. - hydrOXYchloroQUINE (PLAQUENIL) 200 mg tablet Take 200 mg by mouth two times a day. - saw palmetto/pumpkin/pyg/Zn/ B6 (SAW PALMETTO COMPLEX,PUMPK-ZN, ORAL) Take by mouth once daily. - diphenhydrAMINE-Acetamin ophen (TYLENOL PM EXTRA STRENGTH) 25-500 mg tab Take 2 tablets by mouth daily at bedtime. - cholecalciferol (VITAMIN D-3) 50 mcg (2,000 unit) tablet Take 5,000 Units by mouth once daily. - Vitamin E, dl, acetate, (VITAMIN E) 400 unit capsule Take 400 Units by mouth once daily. 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] 06/19/2012 Mixed hyperlipidemia [E78.2] 08/26/2021 History of stress test [Z92.89] 08/22/2018 History of echocardiogram [Z92.89] 08/18/2020 CKD (chronic kidney disease) stage 3, GFR 30-59*08/26/2021 CAD in [place] artery [I25.10] 08/26/2021 Benign hypertension [I10] 08/26/[address] of the chest [R93.89] 08/26/2021 Abnormal chest x-ray [R93.89] 08/26/2021 Type 2 diabetes mellitus without complication (*08/26/2021 Encounter Status:Closed by ALTAGRACIA TAFOYA on 12/03/24 [facility] .Auto Diffon 11-21-2024 Basophil, Absolute 0.0 10 3/mcL Normal 0.0-0.2 [facility] Comment on above: Performed By: #### A DIFF, ANEU, CMP, GFR, CBC #### [address] [address] Basophils/100 WBC (Bld) 1.2 % Normal 0.0-2.5 [facility] Comment on above: Performed By: #### A DIFF, ANEU, CMP, GFR, CBC #### [address] [address] Eosinophil, Absolute 0.2 10 3/mcL Normal 0.0-0.7 [facility] Comment on above: Performed By: #### A DIFF, ANEU, CMP, GFR, CBC #### [address] [address] Eosinophils/100 WBC (Bld) 5.5 % Normal 0.0-7.0 [facility] Comment on above: Performed By: #### A DIFF, ANEU, CMP, GFR, CBC #### [address] [address] Lymphocyte, Absolute 0.4 10 3/mcL Low 0.9-4.3 [facility] Comment on above: Performed By: #### A DIFF, ANEU, CMP, GFR, CBC #### [address] [address] Lymphocytes/100 WBC (Bld) 8.4 % Low 20.0-40.0 [facility] Comment on above: Performed By: #### A DIFF, ANEU, CMP, GFR, CBC #### [address] [address] Monocyte, Absolute 0.5 10 3/mcL Normal 0.1-1.4 [facility] Comment on above: Performed By: #### A DIFF, ANEU, CMP, GFR, CBC #### [address] [address] Monocytes/100 WBC (Bld) 13.0 % Normal 2.0-13.0 [facility] Comment on above: Performed By: #### A DIFF, ANEU, CMP, GFR, CBC #### [address] [address] Neutrophils/100 WBC (Bld) 71.9 % Normal 50.0-75.0 [facility] Comment on above: Performed By: #### A DIFF, ANEU, CMP, GFR, CBC #### [address] [address] .GFRon 11-21-2024 Estimated Glomerular Filtration Rate 48 ml/min/1.73sqm Normal [facility] Comment on above: Result Comment: Stages of Chronic Kidney Disease (CKD) Stage Description eGFR(ml/min/1.73 sq.m.) CKD 1 Normal kidney function or >=90 normal kindney function with possible kidney damage (ex. Proteinuria) CKD 2 Kidney damage with mild loss 60-89 of kidney function CKD 3a Mild to moderate loss of kidney 45-59 function CKD 3b Moderate to severe loss of 30-44 of kindey function CKD 4 Severe loss of kidney function 15-29 CKD 5 Kidney failure <15 Note: (go live 2024) the eGFR calculation was updated to the 2020 CKD-EPI creatinine equation without a race factor to calculate the eGFR results. Performed By: #### A DIFF, ANEU, CMP, GFR, CBC #### [address] [address] .NEUABSon 11-21-2024 Neutrophil, Absolute 3.0 10 3/mcL Normal 2.3-8.1 [facility] Comment on above: Performed By: #### A DIFF, ANEU, CMP, GFR, CBC #### [place] [address] A1Con 11-21-2024 Glucose [Mass/Vol] 177 mg/dL Normal [facility] Comment on above: Result Comment: Liliane mated Average Glucose calculated by equation ((28.7xA1C)-46.7) Estimated average glucose (eAG) is a calculated value from Hemoglobin A1C and is outside sales representative insurance of the average blood glucose level in the last 2-3 month period. Normal range: less than 114 mg/dL Performed By: #### A DIFF, ANEU, CMP, GFR, CBC #### [place] [address] HbA1c (Bld) [Mass fraction] 7.8 % High 4.3-6.4 [facility] Comment on above: Performed By: #### A DIFF, ANEU, CMP, GFR, CBC #### [place] [address] CBCon 11-21-2024 Erythrocyte distribution width (RBC) [Ratio] 18.2 % High 11.5-15.5 [facility] Comment on above: Performed By: #### A DIFF, ANEU, CMP, GFR, CBC #### [place] [address] Hematocrit (Bld) [Volume fraction] 29.3 % Low 40.0-52.0 [facility] Comment on above: Performed By: #### A DIFF, ANEU, CMP, GFR, CBC #### [place] [address] Hgb 9.8 G/dL Low 13.0-17.5 [facility] Comment on above: Performed By: #### A DIFF, ANEU, CMP, GFR, CBC #### [place] [address] MCH (RBC) [Entitic mass] 28.7 pg Normal 27.0-33.0 [facility] Comment on above: Performed By: #### A DIFF, ANEU, CMP, GFR, CBC #### [place] [address] MCHC 33.3 G/dL Normal 32.0-36.0 [facility] Comment on above: Performed By: #### A DIFF, ANEU, CMP, GFR, CBC #### [place] [address] MCV (RBC) [Entitic vol] 86.4 fL Normal 81.0-100.0 [facility] Comment on above: Performed By: #### A DIFF, ANEU, CMP, GFR, CBC #### [place] [address] Platelet 207 10 3/mcL Normal 150-450 [facility] Comment on above: Performed By: #### A DIFF, ANEU, CMP, GFR, CBC #### [place] [address] Platelet mean volume (Bld) [Entitic vol] 7.2 fL Normal 6.4-10.5 [facility] Comment on above: Performed By: #### A DIFF, ANEU, CMP, GFR, CBC #### [place] [address] RBC 3.40 10 6/mcL Low 4.50-6.00 [facility] Comment on above: Performed By: #### A DIFF, ANEU, CMP, GFR, CBC #### [place] [address] WBC 4.2 10 3/mcL Low 4.5-10.8 [facility] Comment on above: Performed By: #### A DIFF, ANEU, CMP, GFR, CBC #### [place] [id number] CMPon 11-21-2024 Albumin Level 3.3 G/dL Low 3.4-4.8 [facility] Comment on above: Performed By: #### A DIFF, ANEU, CMP, GFR, CBC #### [place] [id number] Albumin/Globulin [Mass ratio] 0.8 {ratio} Low 1.1-2.5 [facility] Comment on above: Performed By: #### A DIFF, ANEU, CMP, GFR, CBC #### [place] [id number] ALP [Catalytic activity/Vol] 79 U/L Normal 40-135 [facility] Comment on above: Performed By: #### A DIFF, ANEU, CMP, GFR, CBC #### [place] [id number] ALT [Catalytic activity/Vol] 22 U/L Normal 16-63 [facility] Comment on above: Performed By: #### A DIFF, ANEU, CMP, GFR, CBC #### [place] [id number] AST [Catalytic activity/Vol] 21 U/L Normal 10-40 [facility] Comment on above: Performed By: #### A DIFF, ANEU, CMP, GFR, CBC #### [place] [id number] Bili Total 0.3 mg/dL Normal 0.2-1.0 [facility] Comment on above: Result Comment: Use of this assay is not recommended for patients undergoing treatment with eltrombopag due to the potential for falsely elevated results. Performed By: #### A DIFF, ANEU, CMP, GFR, CBC #### [place] [address] BUN/Creatinine Ratio 20 ratio Normal 7-27 [facility] Comment on above: Performed By: #### A DIFF, ANEU, CMP, GFR, CBC #### [place] [id number] Calcium [Mass/Vol] 10.0 mg/dL Normal 8.4-10.[address] [facility] Comment on above: Performed By: #### A DIFF, ANEU, CMP, GFR, CBC #### [address] [address] Chloride [Moles/Vol] 100 mmol/L Normal 98-107 [facility] Comment on above: Performed By: #### A DIFF, ANEU, CMP, GFR, CBC #### [address] [address] CO2 [Moles/Vol] 27 mmol/L Normal 23-31 [facility] Comment on above: Performed By: #### A DIFF, ANEU, CMP, GFR, CBC #### [address] [address] Creatinine [Mass/Vol] 1.41 mg/dL High 0.70-1.30 [facility] Comment on above: Result Comment: Test ing performed on Forever Dimension EXL analyzer using a modified kinetic Derrell technique. Performed By: #### A DIFF, ANEU, CMP, GFR, CBC #### [address] [address] Electrolyte Balance 9.0 mEq/L Normal 4.0-15.0 [facility] Comment on above: Performed By: #### A DIFF, ANEU, CMP, GFR, CBC #### [address] [address] Globulin 3.9 G/dL High 1.5-3.8 [facility] Comment on above: Performed By: #### A DIFF, ANEU, CMP, GFR, CBC #### [address] [address] Glucose [Mass/Vol] 165 mg/dL High 83-[address] [facility] Comment on above: Performed By: #### A DIFF, ANEU, CMP, GFR, CBC #### [address] [address] Potassium [Moles/Vol] 4.7 mmol/L Normal 3.5-5.1 [facility] Comment on above: Performed By: #### A DIFF, ANEU, CMP, GFR, CBC #### [address] [address] Sodium [Moles/Vol] 136 mmol/L Normal 136-[address] [facility] Comment on above: Performed By: #### A DIFF, ANEU, CMP, GFR, CBC #### [address] [address] Total Protein 7.2 G/dL Normal 6.4-8.2 [facility] Comment on above: Performed By: #### A DIFF, ANEU, CMP, GFR, CBC #### [address] [address] Urea nitrogen [Mass/Vol] 28 mg/dL High 7-18 [facility] Comment on above: Performed By: #### A DIFF, ANEU, CMP, GFR, CBC #### [address] [address] LIPIDon 11-21-2024 Cholesterol [Mass/Vol] 244 mg/dL High 0-200 [facility] Comment on above: Result Comment: Chol esterol Reference Interval: Less than 200 Desirable 200-239 Borderline high risk 240 and above High risk Performed By: #### A DIFF, ANEU, CMP, GFR, CBC #### [address] [address] Cholesterol in HDL [Mass/Vol] 44 mg/dL Normal 40-60 [facility] Comment on above: Performed By: #### A DIFF, ANEU, CMP, GFR, CBC #### [address] [address] Cholesterol in LDL [Mass/Vol] 172 mg/dL High 0-130 [facility] Comment on above: Performed By: #### A DIFF, ANEU, CMP, GFR, CBC #### [address] [address] Triglyceride [Mass/Vol] 141 mg/dL Normal 0-150 [facility] Comment on above: Result Comment: Trig lyceride Reference Interval: Less than 150 Normal 150-199 Borderline high risk 200-499 High risk 500 or higher Very high risk Performed By: #### A DIFF, ANEU, CMP, GFR, CBC #### [address] [address] .Auto Diffon 11-06-2024 Basophil, Absolute 0.0 10 3/mcL Normal 0.0-0.2 [facility] Comment on above: Performed By: #### A DIFF, ANEU, CMP, GFR, CBC #### [address] [address] Basophils/100 WBC (Bld) 0.8 % Normal 0.0-2.5 [facility] Comment on above: Performed By: #### A DIFF, ANEU, CMP, GFR, CBC #### [address] [address] Eosinophil, Absolute 0.4 10 3/mcL Normal 0.0-0.7 [facility] Comment on above: Performed By: #### A DIFF, ANEU, CMP, GFR, CBC #### [address] [address] Eosinophils/100 WBC (Bld) 7.2 % High 0.0-7.0 [facility] Comment on above: Performed By: #### A DIFF, ANEU, CMP, GFR, CBC #### [address] [address] Lymphocyte, Absolute 0.3 10 3/mcL Low 0.9-4.3 [facility] Comment on above: Performed By: #### A DIFF, ANEU, CMP, GFR, CBC #### [address] [address] Lymphocytes/100 WBC (Bld) 6.3 % Low 20.0-40.0 [facility] Comment on above: Performed By: #### A DIFF, ANEU, CMP, GFR, CBC #### [address] [address] Monocyte, Absolute 0.7 10 3/mcL Normal 0.1-1.4 [facility] Comment on above: Performed By: #### A DIFF, ANEU, CMP, GFR, CBC #### [address] [address] Monocytes/100 WBC (Bld) 13.6 % High 2.0-13.0 [facility] Comment on above: Performed By: #### A DIFF, ANEU, CMP, GFR, CBC #### [address] [address] Neutrophils/100 WBC (Bld) 72.1 % Normal 50.0-75.0 [facility] Comment on above: Performed By: #### A DIFF, ANEU, CMP, GFR, CBC #### [address] [address] .GFRon 11-06-2024 Estimated Glomerular Filtration Rate 38 ml/min/1.73sqm Normal [facility] Comment on above: Result Comment: Stages of Chronic Kidney Disease (CKD) Stage Description eGFR(ml/min/1.73 sq.m.) CKD 1 Normal kidney function or >=90 normal kindney function with possible kidney damage (ex. Proteinuria) CKD 2 Kidney damage with mild loss 60-89 of kidney function CKD 3a Mild to moderate loss of kidney 45-59 function CKD 3b Moderate to severe loss of 30-44 of kindey function CKD 4 Severe loss of kidney function 15-29 CKD 5 Kidney failure <15 Note: (go live 2024) the eGFR calculation was updated to the 2020 CKD-EPI creatinine equation without a race factor to calculate the eGFR results. Performed By: #### A DIFF, ANEU, CMP, GFR, CBC #### [address] [address] .NEUABSon 11-06-2024 Neutrophil, Absolute 3.8 10 3/mcL Normal 2.3-8.1 [facility] Comment on above: Performed By: #### A DIFF, ANEU, CMP, GFR, CBC #### [address] [address] CBCon 11-06-2024 Erythrocyte distribution width (RBC) [Ratio] 17.7 % High 11.5-15.5 [facility] Comment on above: Performed By: #### A DIFF, ANEU, CMP, GFR, CBC #### [address] [address] Hematocrit (Bld) [Volume fraction] 30.2 % Low 40.0-52.0 [facility] Comment on above: Performed By: #### A DIFF, ANEU, CMP, GFR, CBC #### [address] [address] Hgb 10.2 G/dL Low 13.0-17.5 [facility] Comment on above: Performed By: #### A DIFF, ANEU, CMP, GFR, CBC #### [address] [address] MCH (RBC) [Entitic mass] 29.2 pg Normal 27.0-33.0 [facility] Comment on above: Performed By: #### A DIFF, ANEU, CMP, GFR, CBC #### [address] [address] MCHC 33.7 G/dL Normal 32.0-36.0 [facility] Comment on above: Performed By: #### A DIFF, ANEU, CMP, GFR, CBC #### [address] [address] MCV (RBC) [Entitic vol] 86.6 fL Normal 81.0-100.0 [facility] Comment on above: Performed By: #### A DIFF, ANEU, CMP, GFR, CBC #### [address] [address] Platelet 223 10 3/mcL Normal 150-450 [facility] Comment on above: Performed By: #### A DIFF, ANEU, CMP, GFR, CBC #### [address] [address] Platelet mean volume (Bld) [Entitic vol] 6.9 fL Normal 6.4-10.5 [facility] Comment on above: Performed By: #### A DIFF, ANEU, CMP, GFR, CBC #### [address] [address] RBC 3.48 10 6/mcL Low 4.50-6.00 [facility] Comment on above: Performed By: #### A DIFF, ANEU, CMP, GFR, CBC #### [address] [address] WBC 5.2 10 3/mcL Normal 4.5-10.8 [facility] Comment on above: Performed By: #### A DIFF, ANEU, CMP, GFR, CBC #### [place] [address] CMPon 11-06-2024 Albumin Level 3.2 G/dL Low 3.4-4.8 [facility] Comment on above: Performed By: #### A DIFF, ANEU, CMP, GFR, CBC #### [place] [address] Albumin/Globulin [Mass ratio] 0.8 {ratio} Low 1.1-2.5 [facility] Comment on above: Performed By: #### A DIFF, ANEU, CMP, GFR, CBC #### [place] [address] ALP [Catalytic activity/Vol] 82 U/L Normal 40-135 [facility] Comment on above: Performed By: #### A DIFF, ANEU, CMP, GFR, CBC #### [place] [address] ALT [Catalytic activity/Vol] 21 U/L Normal 16-63 [facility] Comment on above: Performed By: #### A DIFF, ANEU, CMP, GFR, CBC #### [address] [address] AST [Catalytic activity/Vol] 25 U/L Normal 10-40 [facility] Comment on above: Performed By: #### A DIFF, ANEU, CMP, GFR, CBC #### [place] [address] Bili Total 0.3 mg/dL Normal 0.2-1.0 [facility] Comment on above: Result Comment: Use of this assay is not recommended for patients undergoing treatment with eltrombopag due to the potential for falsely elevated results. Performed By: #### A DIFF, ANEU, CMP, GFR, CBC #### [address] [address] BUN/Creatinine Ratio 22 ratio Normal 7-27 [facility] Comment on above: Performed By: #### A DIFF, ANEU, CMP, GFR, CBC #### [address] [address] Calcium [Mass/Vol] 9.4 mg/dL Normal 8.4-10.[address] [facility] Comment on above: Performed By: #### A DIFF, ANEU, CMP, GFR, CBC #### [place] [address] Chloride [Moles/Vol] 101 mmol/L Normal 98-107 [facility] Comment on above: Performed By: #### A DIFF, ANEU, CMP, GFR, CBC #### [place] [address] CO2 [Moles/Vol] 29 mmol/L Normal 23-31 [facility] Comment on above: Performed By: #### A DIFF, ANEU, CMP, GFR, CBC #### [place] [address] Creatinine [Mass/Vol] 1.72 mg/dL High 0.70-1.30 [facility] Comment on above: Result Comment: Test ing performed on Siemens Dimension EXL analyzer using a modified kinetic Derrell technique. Performed By: #### A DIFF, ANEU, CMP, GFR, CBC #### [place] [address] Electrolyte Balance 7.0 mEq/L Normal 4.0-15.0 [facility] Comment on above: Performed By: #### A DIFF, ANEU, CMP, GFR, CBC #### [place] [address] Globulin 4.1 G/dL High 1.5-3.8 [facility] Comment on above: Performed By: #### A DIFF, ANEU, CMP, GFR, CBC #### [address] [place] [address] Glucose [Mass/Vol] 144 mg/dL High 83-[address] [facility] Comment on above: Performed By: #### A DIFF, ANEU, CMP, GFR, CBC #### [address] [address] Potassium [Moles/Vol] 4.8 mmol/L Normal 3.5-5.1 [facility] Comment on above: Performed By: #### A DIFF, ANEU, CMP, GFR, CBC #### [address] [address] Sodium [Moles/Vol] 137 mmol/L Normal 136-[address] [facility] Comment on above: Performed By: #### A DIFF, ANEU, CMP, GFR, CBC #### [address] [address] Total Protein 7.3 G/dL Normal 6.4-8.2 [facility] Comment on above: Performed By: #### A DIFF, ANEU, CMP, GFR, CBC #### [address] [address] Urea nitrogen [Mass/Vol] 37 mg/dL High 7-18 [facility] Comment on above: Performed By: #### A DIFF, ANEU, CMP, GFR, CBC #### [address] [address] LABORATORYOrdered By: SYSTEM SYSTEM on 11-06-2024 Albumin BCP dye [Mass/Vol] 3.2 G/dL Low 3.4 - 4.8 G/dL AO ADM SS Albumin/Globulin [Mass ratio] 0.8 {ratio} Low 1.1 - 2.5 ratio AO ADM SS ALP [Catalytic activity/Vol] 82 U/L Normal 40 - 135 U/L AO ADM SS ALT With P-5'-P [Catalytic activity/Vol] 21 U/L Normal 16 - 63 U/L AO ADM SS AST With P-5'-P [Catalytic activity/Vol] 25 U/L Normal 10 - 40 U/L AO ADM SS Basophils (Bld) [#/Vol] 0.0 103/mcL Normal 0.0 - 0.2 10^3/mcL AO Workflow SS Basophils/100 WBC (Bld) 0.8 % Normal 0.0 - 2.5 % AO Workflow SS Bilirubin [Mass/Vol] 0.3 mg/dL Normal 0.2 - 1 .0 mg/dL AO ADM SS Comment on above: Interpretive Data: U se of this assay is not recommended for patients undergoing treatment with eltrombopag due to the potential for falsely elevated results. Calcium [Mass/Vol] 9.4 mg/dL Normal 8.4 - 10. 2 mg/dL AO ADM SS Chloride [Moles/Vol] 101 mmol/L Normal 98 - 10 7 mmol/L AO ADM SS CO2 [Moles/Vol] 29 mmol/L Normal 23 - 31 mmol/L AO ADM SS Creatinine [Mass/Vol] 1.72 mg/dL High 0.70 - 1.30 mg/dL AO ADM SS Comment on above: Interpretive Data: T esting performed on Siemens Dimension EXL analyzer using a modified kinetic Derrell technique. Electrolyte Balance 7.0 mEq/L Normal 4.0 - 15 .0 mEq/L AO ADM SS Eosinophil, Absolute 0.4 103/mcL Normal 0.0 - 0 .7 10^3/mcL AO Workflow SS Eosinophils/100 WBC (Bld) 7.2 % High 0.0 - 7.0 % AO Workflow SS Erythrocyte distribution width (RBC) [Ratio] 17.7 % High 11.5 - 15.5 % AO Workflow SS Estimated Glomerular Filtration Rate 38 ml/min/1.73sqm Invalid Interpretation Code AO Chemistry S Comment on above: Interpretive Data: Stages of Chronic Kidney Disease (CKD) Stage Description eGFR(ml/min/1.73 sq.m.) CKD 1 Normal kidney function or >=90 normal kindney function with possible kidney damage (ex. Proteinuria) CKD 2 Kidney damage with mild loss 60-89 of kidney function CKD 3a Mild to moderate loss of kidney 45-59 function CKD 3b Moderate to severe loss of 30-44 of kindey function CKD 4 Severe loss of kidney function 15-29 CKD 5 Kidney failure <15 Note: (go live 2024) the eGFR calculation was updated to the 2020 CKD-EPI creatinine equation without a race factor to calculate the eGFR results. Globulin 4.1 G/dL High 1.5 - 3.8 G/dL AO ADM SS Glucose [Mass/Vol] 144 mg/dL High 83 - 110 mg/dL AO ADM SS Hematocrit (Bld) [Volume fraction] 30.2 % Low 40.0 - 52.0 % AO Workflow SS Hemoglobin (Bld) [Mass/Vol] 10.2 G/dL Low 13.0 - 17.5 G/dL AO Workflow SS Lymphocytes (Bld) [#/Vol] 0.3 103/mcL Low 0.9 - 4.3 10^3/mcL AO Workflow SS Lymphocytes/100 WBC (Bld) 6.3 % Low 20.0 - 40.0 % AO Workflow SS MCH (RBC) [Entitic mass] 29.2 pg Normal 27.0 - 33.0 pg AO Workflow SS MCHC 33.7 G/dL Normal 32.0 - 36.0 G/dL AO Workflow SS MCV (RBC) [Entitic vol] 86.6 fL Normal 81.0 - 100.0 fL AO Workflow SS Monocytes (Bld) [#/Vol] 0.7 103/mcL Normal 0.1 - 1.4 10^3/mcL AO Workflow SS Monocytes/100 WBC (Bld) 13.6 % High 2.0 - 13.0 % AO Workflow SS Neutrophils (Bld) [#/Vol] 3.8 103/mcL Normal 2.3 - 8.1 10^3/mcL AO Workflow SS Neutrophils/100 WBC (Bld) 72.1 % Normal 50.0 - 75.0 % AO Workflow SS Platelet mean volume (Bld) [Entitic vol] 6.9 fL Normal 6.4 - 10.5 fL AO Workflow SS Platelets (Bld) [#/Vol] 223 103/mcL Normal 150 - 450 10^3/mcL AO Workflow SS Potassium [Moles/Vol] 4.8 mmol/L Normal 3.5 - 5.1 mmol/L AO ADM SS Protein [Mass/Vol] 7.3 G/dL Normal 6.4 - 8.2 G/dL AO ADM SS RBC (Bld) [#/Vol] 3.48 106/mcL Low 4.50 - 6.0 0 10^6/mcL AO Workflow SS Sodium [Moles/Vol] 137 mmol/L Normal 136 - 145 mmol/L AO ADM SS Urea nitrogen [Mass/Vol] 37 mg/dL High 7 - 18 mg/dL AO ADM SS Urea nitrogen/Creatinine [Mass ratio] 22 ratio Normal 7 - 27 ratio AO ADM SS WBC (Bld) [#/Vol] 5.2 103/mcL Normal 4.5 - 10.8 10^3/mcL AO Workflow SS .Auto Diffon 10-23-2024 Basophil, Absolute 0.0 10 3/mcL Normal 0.0-0.2 [facility] Comment on above: Performed By: #### A DIFF, ANEU, CMP, GFR, CBC #### [address] [address] Basophils/100 WBC (Bld) 1.3 % Normal 0.0-2.5 [facility] Comment on above: Performed By: #### A DIFF, ANEU, CMP, GFR, CBC #### [address] [address] Eosinophil, Absolute 0.2 10 3/mcL Normal 0.0-0.7 [facility] Comment on above: Performed By: #### A DIFF, ANEU, CMP, GFR, CBC #### [address] [address] Eosinophils/100 WBC (Bld) 5.2 % Normal 0.0-7.0 [facility] Comment on above: Performed By: #### A DIFF, ANEU, CMP, GFR, CBC #### [address] [address] Lymphocyte, Absolute 0.4 10 3/mcL Low 0.9-4.3 [facility] Comment on above: Performed By: #### A DIFF, ANEU, CMP, GFR, CBC #### [address] [address] Lymphocytes/100 WBC (Bld) 9.5 % Low 20.0-40.0 [facility] Comment on above: Performed By: #### A DIFF, ANEU, CMP, GFR, CBC #### [address] [address] Monocyte, Absolute 0.6 10 3/mcL Normal 0.1-1.4 [facility] Comment on above: Performed By: #### A DIFF, ANEU, CMP, GFR, CBC #### [address] [address] Monocytes/100 WBC (Bld) 17.0 % High 2.0-13.0 [facility] Comment on above: Performed By: #### A DIFF, ANEU, CMP, GFR, CBC #### [address] [address] Neutrophils/100 WBC (Bld) 67.0 % Normal 50.0-75.0 [facility] Comment on above: Performed By: #### A DIFF, ANEU, CMP, GFR, CBC #### [address] [address] .NEUABSon 10-23-2024 Neutrophil, Absolute 2.5 10 3/mcL Normal 2.3-8.1 [facility] Comment on above: Performed By: #### A DIFF, ANEU, CMP, GFR, CBC #### [place] [address] CBCon 10-23-2024 Erythrocyte distribution width (RBC) [Ratio] 17.7 % High 11.5-15.5 [facility] Comment on above: Performed By: #### A DIFF, ANEU, CMP, GFR, CBC #### [address] [address] Hematocrit (Bld) [Volume fraction] 29.5 % Low 40.0-52.0 [facility] Comment on above: Performed By: #### A DIFF, ANEU, CMP, GFR, CBC #### [address] [address] Hgb 9.7 G/dL Low 13.0-17.5 [facility] Comment on above: Performed By: #### A DIFF, ANEU, CMP, GFR, CBC #### [place] [address] MCH (RBC) [Entitic mass] 29.8 pg Normal 27.0-33.0 [facility] Comment on above: Performed By: #### A DIFF, ANEU, CMP, GFR, CBC #### [address] [address] MCHC 32.8 G/dL Normal 32.0-36.0 [facility] Comment on above: Performed By: #### A DIFF, ANEU, CMP, GFR, CBC #### [address] [address] MCV (RBC) [Entitic vol] 90.8 fL Normal 81.0-100.0 [facility] Comment on above: Performed By: #### A DIFF, ANEU, CMP, GFR, CBC #### [address] [address] Platelet 166 10 3/mcL Normal 150-450 [facility] Comment on above: Performed By: #### A DIFF, ANEU, CMP, GFR, CBC #### [address] [address] Platelet mean volume (Bld) [Entitic vol] 7.3 fL Normal 6.4-10.5 [facility] Comment on above: Performed By: #### A DIFF, ANEU, CMP, GFR, CBC #### [address] [address] RBC 3.25 10 6/mcL Low 4.50-6.00 [facility] Comment on above: Performed By: #### A DIFF, ANEU, CMP, GFR, CBC #### [address] [address] WBC 3.8 10 3/mcL Low 4.5-10.8 [facility] Comment on above: Performed By: #### A DIFF, ANEU, CMP, GFR, CBC #### [address] [address] LABORATORYOrdered By: SYSTEM SYSTEM on 10-23-2024 Basophils (Bld) [#/Vol] 0.0 103/mcL Normal 0.0 - 0.2 10^3/mcL AO Workflow SS Basophils/100 WBC (Bld) 1.3 % Normal 0.0 - 2.5 % AO Workflow SS Eosinophil, Absolute 0.2 103/mcL Normal 0.0 - 0 .7 10^3/mcL AO Workflow SS Eosinophils/100 WBC (Bld) 5.2 % Normal 0.0 - 7.0 % AO Workflow SS Erythrocyte distribution width (RBC) [Ratio] 17.7 % High 11.5 - 15.5 % AO Workflow SS Hematocrit (Bld) [Volume fraction] 29.5 % Low 40.0 - 52.0 % AO Workflow SS Hemoglobin (Bld) [Mass/Vol] 9.7 G/dL Low 13.0 - 17.5 G/dL AO Workflow SS Lymphocytes (Bld) [#/Vol] 0.4 103/mcL Low 0.9 - 4.3 10^3/mcL AO Workflow SS Lymphocytes/100 WBC (Bld) 9.5 % Low 20.0 - 40.0 % AO Workflow SS MCH (RBC) [Entitic mass] 29.8 pg Normal 27.0 - 33.0 pg AO Workflow SS MCHC 32.8 G/dL Normal 32.0 - 36.0 G/dL AO Workflow SS MCV (RBC) [Entitic vol] 90.8 fL Normal 81.0 - 100.0 fL AO Workflow SS Monocytes (Bld) [#/Vol] 0.6 103/mcL Normal 0.1 - 1.4 10^3/mcL AO Workflow SS Monocytes/100 WBC (Bld) 17.0 % High 2.0 - 13.0 % AO Workflow SS Neutrophils (Bld) [#/Vol] 2.5 103/mcL Normal 2.3 - 8.1 10^3/mcL AO Workflow SS Neutrophils/100 WBC (Bld) 67.0 % Normal 50.0 - 75.0 % AO Workflow SS Platelet mean volume (Bld) [Entitic vol] 7.3 fL Normal 6.4 - 10.5 fL AO Workflow SS Platelets (Bld) [#/Vol] 166 103/mcL Normal 150 - 450 10^3/mcL AO Workflow SS RBC (Bld) [#/Vol] 3.25 106/mcL Low 4.50 - 6.0 0 10^6/mcL AO Workflow SS WBC (Bld) [#/Vol] 3.8 103/mcL Low 4.5 - 10.8 10^3/mcL AO Workflow SS LMERLYon 10-04-2024 Lyme Total Antibody JODIE Negative Normal Negative [facility] Comment on above: Result Comment: Lyme antibodies not detected. Reflex testing is not indicated. No laboratory evidence of infection with B. burgdorferi (Lyme disease). Negative results may occur in patients recently infected (less than or equal to 14 days) with B. burgdorferi. If recent infection is suspected, repeat testing on a new sample collected in 7 to 14 days is recommended. Performed At: [facility] [id number] Casper Garcia PhD Ph:[phone] Performed By: #### A DIFF, ANEU, CMP, GFR, CBC #### [address] [address] .Auto Diffon 09-17-2024 Basophil, Absolute 0.1 10 3/mcL Normal 0.0-0.2 [facility] Comment on above: Performed By: #### C BC, ADIFF, ANEU #### [address] [address] Basophils/100 WBC (Bld) 1.9 % Normal 0.0-2.5 [facility] Comment on above: Performed By: #### C BC, ADIFF, ANEU #### [address] [address] Eosinophil, Absolute 0.3 10 3/mcL Normal 0.0-0.7 [facility] Comment on above: Performed By: #### C BC, ADIFF, ANEU #### [address] [address] Eosinophils/100 WBC (Bld) 8.9 % High 0.0-7.0 [facility] Comment on above: Performed By: #### C BC, ADIFF, ANEU #### [address] [address] Lymphocyte, Absolute 0.4 10 3/mcL Low 0.9-4.3 [facility] Comment on above: Performed By: #### C BC, ADIFF, ANEU #### [address] [address] Lymphocytes/100 WBC (Bld) 11.9 % Low 20.0-40.0 [facility] Comment on above: Performed By: #### C BC, ADIFF, ANEU #### [address] [address] Monocyte, Absolute 0.3 10 3/mcL Normal 0.1-1.4 [facility] Comment on above: Performed By: #### C EZRA BCAON, ANEU #### [address] [address] Monocytes/100 WBC (Bld) 11.0 % Normal 2.0-13.0 [facility] Comment on above: Performed By: #### C EZRA BACON, ANEU #### [address] [address] Neutrophils/100 WBC (Bld) 66.3 % Normal 50.0-75.0 [facility] Comment on above: Performed By: #### C EZRA BACON, ANEU #### [address] [address] .NEUABSon 09-17-2024 Neutrophil, Absolute 2.0 10 3/mcL Low 2.3-8.1 [facility] Comment on above: Performed By: #### C EZRA BACON, ANEU #### [place] [address] CBCon 09-17-2024 Erythrocyte distribution width (RBC) [Ratio] 17.5 % High 11.5-15.5 [facility] Comment on above: Performed By: #### C EZRA BACON, ANEU #### [address] [address] Hematocrit (Bld) [Volume fraction] 30.8 % Low 40.0-52.0 [facility] Comment on above: Performed By: #### C EZRA BACON, ANEU #### [place] [address] Hgb 10.2 G/dL Low 13.0-17.5 [facility] Comment on above: Performed By: #### C EZRA BACON, ANEU #### [place] [address] MCH (RBC) [Entitic mass] 29.8 pg Normal 27.0-33.0 [facility] Comment on above: Performed By: #### C EZRA BACON ANEU #### [address] [address] MCHC 33.2 G/dL Normal 32.0-36.0 [facility] Comment on above: Performed By: #### C EZRA BACON, ANEU #### [address] [address] MCV (RBC) [Entitic vol] 89.7 fL Normal 81.0-100.0 [facility] Comment on above: Performed By: #### C EZRA BACON ANEU #### [address] [address] Platelet 165 10 3/mcL Normal 150-450 [facility] Comment on above: Performed By: #### C EZRA BACON ANEU #### [address] [address] Platelet mean volume (Bld) [Entitic vol] 7.6 fL Normal 6.4-10.5 [facility] Comment on above: Performed By: #### C EZRA BACON ANEU #### [address] [address] RBC 3.44 10 6/mcL Low 4.50-6.00 [facility] Comment on above: Performed By: #### C EZRA BACON, ANEU #### [address] [address] WBC 3.1 10 3/mcL Low 4.5-10.8 [facility] Comment on above: Performed By: #### C EZRA BACON ANEU #### [address] [address] CRPon 09-17-2024 C-Reactive Protein 0.6 mg/dL High 0.0-0.[address] [facility] Comment on above: Performed By: #### A DIFF, ANEU, CMP, GFR, CBC #### [address], [place] [address] ESRon 09-17-2024 Erythrocyte Sed Rate 24 mm/hr High 0-20 [facility] Comment on above: Performed By: #### A DIFF, ANEU, CMP, GFR, CBC #### [place] [address] [place], [place] [address] LABORATORYOrdered By: SYSTEM SYSTEM on 09-17-2024 Basophils (Bld) [#/Vol] 0.1 103/mcL Normal 0.0 - 0.2 10^3/mcL AO Workflow SS Basophils/100 WBC (Bld) 1.9 % Normal 0.0 - 2.5 % AO Workflow SS CRP [Mass/Vol] 0.6 mg/dL High 0.0 - 0.3 mg/dL AO ADM SS Eosinophil, Absolute 0.3 103/mcL Normal 0.0 - 0 .7 10^3/mcL AO Workflow SS Eosinophils/100 WBC (Bld) 8.9 % High 0.0 - 7.0 % AO Workflow SS Erythrocyte distribution width (RBC) [Ratio] 17.5 % High 11.5 - 15.5 % AO Workflow SS Hematocrit (Bld) [Volume fraction] 30.8 % Low 40.0 - 52.0 % AO Workflow SS Hemoglobin (Bld) [Mass/Vol] 10.2 G/dL Low 13.0 - 17.5 G/dL AO Workflow SS Lymphocytes (Bld) [#/Vol] 0.4 103/mcL Low 0.9 - 4.3 10^3/mcL AO Workflow SS Lymphocytes/100 WBC (Bld) 11.9 % Low 20.0 - 40.0 % AO Workflow SS MCH (RBC) [Entitic mass] 29.8 pg Normal 27.0 - 33.0 pg AO Workflow SS MCHC 33.2 G/dL Normal 32.0 - 36.0 G/dL AO Workflow SS MCV (RBC) [Entitic vol] 89.7 fL Normal 81.0 - 100.0 fL AO Workflow SS Monocytes (Bld) [#/Vol] 0.3 103/mcL Normal 0.1 - 1.4 10^3/mcL AO Workflow SS Monocytes/100 WBC (Bld) 11.0 % Normal 2.0 - 13.0 % AO Workflow SS Neutrophils (Bld) [#/Vol] 2.0 103/mcL Low 2.3 - 8.1 10^3/mcL AO Workflow SS Neutrophils/100 WBC (Bld) 66.3 % Normal 50.0 - 75.0 % AO Workflow SS Platelet mean volume (Bld) [Entitic vol] 7.6 fL Normal 6.4 - 10.5 fL AO Workflow SS Platelets (Bld) [#/Vol] 165 103/mcL Normal 150 - 450 10^3/mcL AO Workflow SS RBC (Bld) [#/Vol] 3.44 106/mcL Low 4.50 - 6.0 0 10^6/mcL AO Workflow SS WBC (Bld) [#/Vol] 3.1 103/mcL Low 4.5 - 10.8 10^3/mcL AO Workflow SS LABORATORYOrdered By: Lavon Santiago on 09-17-2024 ESR Photometric method (Bld) [Velocity] 24 mm/hr High 0 - 20 mm/hr AO Man Heme SS No Panel Informationon 09-17 Microscopic examination of blood, culture Culture has been received in lab and is no growth to date. Routine cultures are held for 5 days. [facility] Work Phone: A1Con 09-08-2024 Glucose [Mass/Vol] 157 mg/dL Normal [facility] Comment on above: Result Comment: Liliane mated Average Glucose calculated by equation ((28.7xA1C)-46.7) Estimated average glucose (eAG) is a calculated value from Hemoglobin A1C and is outside sales representative insurance of the average blood glucose level in the last 2-3 month period. Normal range: less than 114 mg/dL Performed By: #### L IPID, A1C ####[address] [address] HbA1c (Bld) [Mass fraction] 7.1 % High 4.0-6.0 [facility] Comment on above: Performed By: #### L IPID, A1C ####[address] [address] [address] HEAD OR BRAIN W/O CONTRAS Ton 09-08-2024 CT HEAD OR BRAIN W/O CONTRAST ORIGINAL EXAMINATION: CT OF THE HEAD WITHOUT CONTRAST09/08/2024 5:[address] HEAD/BRAIN WITHOUT CONTRAST TECHNIQUE: CT of the head was performed without the administration of intravenous contrast. Automated exposure control, iterative reconstruction, and/or weight based adjustment of the mA/kV was utilized to reduce the radiation dose to as low as reasonably achievable. Axial CT images from skull base to vertex without IV contrast. This exam was performed according to our departmental dose optimization program, and includes the following measures where applicable: automated exposure control, adjustment of the mAs and/or kVp according to patient size and/or exam, and an iterative reconstruction algorithm. COMPARISON: CT head 09/07/2024. HISTORY: ORDERING SYSTEM PROVIDED HISTORY: Reason for Exam: TIA, DIZZINESS, BALANCE ISSUES, FALL FROM COUCH, ON THINNERS TIA FINDINGS: There is no acute intracranial hemorrhage, mass effect or abnormal extra-axial fluid collection. There is no CT evidence of acute large territorial infarct. There are scattered mild to moderate periventricular and subcortical white matter hypodensities, unchanged and likely sequela of chronic microvascular ischemic change. The ventricles are normal in size for age. There is no depressed calvarial fracture. There is a 2 mm metallic foreign body in the right infraorbital preseptal soft tissues. Mild mucosal thickening with aerosolized secretions in the left maxillary sinus and ethmoid sinuses.. Included mastoid air cells are clear. IMPRESSION: No evidence of an acute intracranial abnormality. Shows Interpreted by: Angelica Willson Preliminary Report By: Angelica Willson Electronically signed By Angelica Willson Dictated Date: 09/08/2024 8:55:47 PM Prelim Date: 09/08/2024 8:58:52 PM Sign Date: 09/08/2024 8:58:52 PM Ordering Provider: JORDI MOODY [facility] LABORATORYOrdered By: La bunn on 09-08-2024 Cholesterol [Mass/Vol] 255 mg/dL High 50 - 199 mg/dL AH ADM SS Comment on above: Interpretive Data: C holesterol Reference Interval: Less than 200 Desirable 200-239 Borderline high risk 240 and above High risk Cholesterol in HDL [Mass/Vol] 35 mg/dL Low 40 - 59 mg/dL AH ADM SS Cholesterol in LDL [Mass/Vol] 179 mg/dL High 0 - 129 mg/dL AH ADM SS Triglyceride [Mass/Vol] 204 mg/dL High 3 - 149 mg/dL AH ADM SS LABORATORYOrdered By: SYSTEM SYSTEM on 09-08-2024 Glucose [Mass/Vol] 157 mg/dL Invalid Interpretation Code Auto Chem SS Comment on above: Interpretive Data: E stimated average glucose (eAG) is a calculated value from Hemoglobin A1C and is outside sales representative insurance of the average blood glucose level in the last 2-3 month period. Normal range: less than 114 mg/dL HbA1c (Bld) [Mass fraction] 7.1 % High 4.0 - 6.0 % Auto Chem SS LIPIDon 09-08-2024 Cholesterol [Mass/Vol] 255 mg/dL High 50-199 [facility] Comment on above: Result Comment: Chol esterol Reference Interval: Less than 200 Desirable 200-239 Borderline high risk 240 and above High risk Performed By: #### L IPID, A1C ####[place] [address] [place] [address] Cholesterol in HDL [Mass/Vol] 35 mg/dL Low 40-59 [facility] Comment on above: Performed By: #### L IPID, A1C ####[address] [address] Cholesterol in LDL [Mass/Vol] 179 mg/dL High 0-129 [facility] Comment on above: Performed By: #### L IPID, A1C ####[address] [address] Triglyceride [Mass/Vol] 204 mg/dL High 3-149 [facility] Comment on above: Performed By: #### L IPID, A1C ####[address] [address] MRI BRAIN W/O CONTRASTon MRI BRAIN W/O CONTRAST ORIGINAL EXAMINATION: MRI OF THE BRAIN WITHOUT CONTRAST 09/08/2024 2:07 pm TECHNIQUE: Multiplanar multisequence MRI of the brain was performed without the administration of intravenous contrast. COMPARISON: same day CT. HISTORY: ORDERING SYSTEM PROVIDED HISTORY: Reason for Exam: TIA FINDINGS: Exam was discontinued after the diffusion, T2 GRE and T2 FLAIR sequences obtained after the technologist noted metallic susceptibility artifact around the right orbit. This limits this exam, but within these limitations: INTRACRANIAL STRUCTURES/VENTRICLES: There is no restricted diffusion to suggest acute infarct. No mass effect or midline shift. No evidence of an acute intracranial hemorrhage. There are subcortical and periventricular white matter foci of FLAIR hyperintensity, typical for chronic microvascular ischemic change. The ventricles and sulci are normal in size and configuration. ORBITS: There is metallic susceptibility artifact in the right orbital region, described on CT, same day. SINUSES: There appears to be mild mucosal thickening throughout the paranasal sinuses. BONES/SOFT TISSUES: The bone marrow signal intensity appears normal. The soft tissues demonstrate no acute abnormality. IMPRESSION: Limited exam, described above. Mild to moderate chronic microvascular ischemic change without evidence of evidence of acute infarct. Interpreted by: Angelica Willson Preliminary Report By: Angelica Willson Electronically signed By Angelica Willson Dictated Date: 09/08/2024 9:02:18 PM Prelim Date: 09/08/2024 9:07:08 PM Sign Date: 09/08/2024 9:07:08 PM Ordering Provider: JORDI MOODY [facility] XR FOREIGN BODY LOC EYE BILA TERALon 09-08-2024 XR FOREIGN BODY LOC EYE BILATERAL ORIGINAL EXAMINATION: XR OR FOREIGN BODY 09/08/2024 5:01 pm COMPARISON: CT head 09/07/2024 HISTORY: ORDERING SYSTEM PROVIDED HISTORY: Reason for Exam: Clearance for MRI FINDINGS: Again noted is a 1 mm metallic density at the lower lateral right orbit. The metallic density appears unchanged in position from prior CT head study of 09/07/2024. Left ovary demonstrates no evidence of foreign body. There are small metallic densities projected at upper and lower dentition. IMPRESSION: 1 mm metallic density at the lower lateral right orbit, unchanged from prior CT head study. Interpreted by: Tyson Rayo Preliminary Report By: Tyson Rayo Electronically signed By Tyson Rayo Dictated Date: 09/08/2024 6:25:23 PM Prelim Date: 09/08/2024 6:31:11 PM Sign Date: 09/08/2024 6:31:11 PM Ordering Provider: JORDI MOODY [facility] .Auto Diffon 09-07-2024 Basophil, Absolute 0.0 10 3/mcL Normal 0.0-0.3 [facility] Comment on above: Performed By: #### C MP, MDW, ANEU, ADIFF, GFR, TROPHS, APTT, PRO, CBC #### [facility] [address] [place] [address] Basophils/100 WBC (Bld) 1.8 % Normal 0.0-2.5 [facility] Comment on above: Performed By: #### C LUBNA, W, ANEU, ADIFF, GFR, TROPHS, APTT, PRO, CBC #### [address] [address] Eosinophil, Absolute 0.3 10 3/mcL Normal 0.0-0.7 [facility] Comment on above: Performed By: #### C LUBNA, W, ANEU, ADIFF, GFR, TROPHS, APTT, PRO, CBC #### [address] [address] Eosinophils/100 WBC (Bld) 9.6 % High 0.0-6.0 [facility] Comment on above: Performed By: #### C LUBNA, MDW, ANEU, ADIFF, GFR, TROPHS, APTT, PRO, CBC #### [address] [address] Lymphocyte, Absolute 0.4 10 3/mcL Low 0.9-4.3 [facility] Comment on above: Performed By: #### C LUBNA, MDW, ANEU, ADIFF, GFR, TROPHS, APTT, PRO, CBC #### [address] [address] Lymphocytes/100 WBC (Bld) 14.3 % Low 20.0-40.0 [facility] Comment on above: Performed By: #### C LUBNA, W, ANEU, ADIFF, GFR, TROPHS, APTT, PRO, CBC #### [address] [address] Monocyte, Absolute 0.4 10 3/mcL Normal 0.1-1.4 [facility] Comment on above: Performed By: #### C LUBNA, W, ANEU, ADIFF, GFR, TROPHS, APTT, PRO, CBC #### [address] [address] Monocytes/100 WBC (Bld) 14.7 % High 2.0-13.0 [facility] Comment on above: Performed By: #### C LUBNA, W, ANEU, ADIFF, GFR, TROPHS, APTT, PRO, CBC #### [place] [address] [place] [address] Neutrophils/100 WBC (Bld) 59.6 % Normal 50.0-75.0 [facility] Comment on above: Performed By: #### C ERICK CALVO, ANEU, ADIFF, GFR, TROPHS, APTT, PRO, CBC #### [place] [address] [place] [address] .GFRon 09-07-2024 GFR Non- 52 ml/min/1.73sqm [facility] Comment on above: Result Comment: GFR Population mean for , [...] 15 mL/min/1.73 square meters Performed By: #### C ERICK CALVO, LIANG, ADIFF, GFR, TROPHS, APTT, PRO, CBC ####[facility] [place] [address] GFR >60 Normal [facility] Comment on above: Result Comment: GFR Population mean for , [...] 15 mL/min/1.73 square meters Performed By: #### C ERICK CALVO, ANEU, ADIFF, GFR, TROPHS, APTT, PRO, CBC ####[place] [address] .MDWon 09-07-2024 Monocyte Distribution Width 18.78 Normal 0.00-20.00 [facility] Comment on above: Result Comment: For ED adult patients suspected of sepsis, MDW<=20.0 does not rule out sepsis or risk of sepsis Performed By: #### C ERICK CALVO, ANEU, ADIFF, GFR, TROPHS, APTT, PRO, CBC #### [place] [address] .NEUABSon 09-07-2024 Neutrophil, Absolute 1.6 10 3/mcL Low 2.3-8.1 [facility] Comment on above: Performed By: #### C ERICK CALVO, ANEU, ADIFF, GFR, TROPHS, APTT, PRO, CBC #### [place] [address] APTTon 09-07-2024 aPTT Coag (Bld) [Time] 31.6 s Normal 25.0-35.0 [facility] Comment on above: Result Comment: For Heparin anticoagulation therapy, the recommended therapeutic range is: 54-77 seconds (APTT Correlation with Anti-Xa therapeutic range of 0.3-0.7 units/ml). PLEASE REFERENCE THE PHARMACY PROTOCOL FOR DOSING. Performed By: #### C ERICK CALVO, LIANG, ADIFF, GFR, TROPHS, APTT, PRO, CBC ####[place] [address] CBCon 09-07-2024 Erythrocyte distribution width (RBC) [Ratio] 17.4 % High 11.5-15.5 [facility] Comment on above: Performed By: #### C ERICK CALVO, ANEU, ADIFF, GFR, TROPHS, APTT, PRO, CBC #### [place] [address] Hematocrit (Bld) [Volume fraction] 28.7 % Low 40.0-52.0 [facility] Comment on above: Performed By: #### C ERICK CALVO, ANEU, ADIFF, GFR, TROPHS, APTT, PRO, CBC #### [place] [address] Hgb 9.5 G/dL Low 13.0-17.5 [facility] Comment on above: Performed By: #### C ERICK CALVO, ANEU, ADIFF, GFR, TROPHS, APTT, PRO, CBC #### [place] [id number] MCH (RBC) [Entitic mass] 30.1 pg Normal 27.0-33.0 [facility] Comment on above: Performed By: #### C ERICK CALVO, ANEU, ADIFF, GFR, TROPHS, APTT, PRO, CBC #### [place] [address] MCHC 33.2 G/dL Normal 32.0-36.0 [facility] Comment on above: Performed By: #### C ERICK CALVO, ANEU, ADIFF, GFR, TROPHS, APTT, PRO, CBC #### [place] [address] MCV (RBC) [Entitic vol] 90.7 fL Normal 81.0-100.0 [facility] Comment on above: Performed By: #### C ERICK CALVO, ANEU, ADIFF, GFR, TROPHS, APTT, PRO, CBC #### [place] [address] Platelet 147 10 3/mcL Low 150-450 [facility] Comment on above: Performed By: #### C ERICK CALVO, ANEU, ADIFF, GFR, TROPHS, APTT, PRO, CBC #### [place] [address] Platelet mean volume (Bld) [Entitic vol] 7.4 fL Normal 6.4-10.5 [facility] Comment on above: Performed By: #### C ERICK CALVO, ANEU, ADIFF, GFR, TROPHS, APTT, PRO, CBC #### [place] [address] RBC 3.16 10 6/mcL Low 4.50-6.00 [facility] Comment on above: Performed By: #### C ERICK CALVO, ANEU, ADIFF, GFR, TROPHS, APTT, PRO, CBC #### [place] [id number] WBC 2.7 10 3/mcL Low 4.5-10.8 [facility] Comment on above: Performed By: #### C ERICK CALVO, ANEU, ADIFF, GFR, TROPHS, APTT, PRO, CBC #### [address] [address] CMPon 09-07-2024 Albumin Level 3.5 G/dL Normal 3.2-4.8 [facility] Comment on above: Performed By: #### C ERICK CALVO, ANEU, ADIFF, GFR, TROPHS, APTT, PRO, CBC ####[place] [address] Albumin/Globulin [Mass ratio] 1.0 {ratio} Normal 0.9-1.6 [facility] Comment on above: Performed By: #### C ERICK CALVO, ANEU, ADIFF, GFR, TROPHS, APTT, PRO, CBC ####[address] [address] ALP [Catalytic activity/Vol] 61 U/L Normal 38-126 [facility] Comment on above: Performed By: #### C ERICK CALVO, ANEU, ADIFF, GFR, TROPHS, APTT, PRO, CBC ####[address] [address] ALT [Catalytic activity/Vol] 18 U/L Normal 12-55 [facility] Comment on above: Performed By: #### C ERICK CALVO, ANEU, ADIFF, GFR, TROPHS, APTT, PRO, CBC ####[address] [address] AST [Catalytic activity/Vol] 29 U/L Normal 8-34 [facility] Comment on above: Performed By: #### C ERICK CALVO, ANEU, ADIFF, GFR, TROPHS, APTT, PRO, CBC ####[address] [address] Bili Total 0.40 mg/dL Normal 0.20-1.20 [facility] Comment on above: Result Comment: Use of this assay is not recommended for patients undergoing treatment with eltrombopag due to the potential for falsely elevated results. Performed By: #### C ERICK CALVO, ANEU, ADIFF, GFR, TROPHS, APTT, PRO, CBC ####[place] [address] BUN/Creatinine Ratio 20.6 ratio Normal 10.0-22.0 [facility] Comment on above: Performed By: #### C ERICK CALVO, ANEU, ADIFF, GFR, TROPHS, APTT, PRO, CBC ####[place] [address] Calcium [Mass/Vol] 9.6 mg/dL Normal 8.7-10.4 [facility] Comment on above: Performed By: #### C ERICK CALVO, ANEU, ADIFF, GFR, TROPHS, APTT, PRO, CBC ####[place] [address] Chloride [Moles/Vol] 108 mmol/L Normal 98-110 [facility] Comment on above: Performed By: #### C ERICK CALVO, ANEU, ADIFF, GFR, TROPHS, APTT, PRO, CBC ####[place] [id number] CO2 [Moles/Vol] 26 mmol/L Normal 22-32 [facility] Comment on above: Performed By: #### C ERICK CALVO, ANEU, ADIFF, GFR, TROPHS, APTT, PRO, CBC ####[place] [address] Creatinine [Mass/Vol] 1.31 mg/dL Normal 0.60-1.40 [facility] Comment on above: Result Comment: Test ing performed on [employer] analyzer using enzymatic creatinine methodology. Performed By: #### C ERICK CALVO, ANEU, ADIFF, GFR, TROPHS, APTT, PRO, CBC ####[place] [address] Electrolyte Balance 6.0 mEq/L Normal 4.0-15.0 [facility] Comment on above: Performed By: #### C ERICK CALVO, ANEU, ADIFF, GFR, TROPHS, APTT, PRO, CBC ####[address] [address] Globulin 3.5 G/dL Normal 1.5-3.8 [facility] Comment on above: Performed By: #### C ERICK CALVO, ANEU, ADIFF, GFR, TROPHS, APTT, PRO, CBC ####[address] [address] Glucose [Mass/Vol] 99 mg/dL Normal 82-115 [facility] Comment on above: Performed By: #### C ERICK CALVO, ANEU, ADIFF, GFR, TROPHS, APTT, PRO, CBC ####[address] [address] Potassium [Moles/Vol] 4.1 mmol/L Normal 3.5-5.0 [facility] Comment on above: Performed By: #### C ERICK CALVO, ANEU, ADIFF, GFR, TROPHS, APTT, PRO, CBC ####[address] [address] Sodium [Moles/Vol] 140 mmol/L Normal 136-145 [facility] Comment on above: Performed By: #### C ERICK CALVO, ANEU, ADIFF, GFR, TROPHS, APTT, PRO, CBC ####[address] [address] Total Protein 7.0 G/dL Normal 5.7-8.2 [facility] Comment on above: Performed By: #### C ERICK CALVO, ANEU, ADIFF, GFR, TROPHS, APTT, PRO, CBC ####[address] [address] Urea nitrogen [Mass/Vol] 27.0 mg/dL High 8.0-22.0 [facility] Comment on above: Performed By: #### C ERICK CALVO, ANEU, ADIFF, GFR, TROPHS, APTT, PRO, CBC ####[address] [place] [address] CT HEAD OR BRAIN W/O CONTRAS Ton 09-07-2024 CT HEAD OR BRAIN W/O CONTRAST ORIGINAL EXAMINATION: CT OF THE HEAD WITHOUT CONTRAST 09/07/2024 8:14 am TECHNIQUE: CT of the head was performed without the administration of intravenous contrast. Automated exposure control, iterative reconstruction, and/or weight based adjustment of the mA/kV was utilized to reduce the radiation dose to as low as reasonably achievable. COMPARISON: None. HISTORY: ORDERING SYSTEM PROVIDED HISTORY: Reason for Exam: dizziness, htn, no neuro hx, off balance- pt fell into couch last night dizzy FINDINGS: BRAIN/VENTRICLES: There is no acute intracranial hemorrhage, mass effect or midline shift. No abnormal extra-axial fluid collection. The robles-white differentiation is maintained without evidence of an acute infarct. There is no evidence of hydrocephalus. Moderate generalized volume loss. Moderate decreased attenuation in the cerebral white matter. ORBITS: The visualized portion of the orbits demonstrate no acute abnormality. SINUSES: Mucosal thickening is present in the ethmoid air cells. SOFT TISSUES/SKULL: No acute abnormality of the visualized skull or soft tissues. IMPRESSION: No acute intracranial abnormality. Moderate volume loss and small vessel ischemic disease. I have personally reviewed the images of this examination and agree with the resident's findings and interpretation. Interpreted by: Mariel Ruvalcaba Preliminary Report By: Mariya Fulton MD Electronically signed By Mariel Ruvalcaba Dictated Date: 09/07/2024 8:18:45 AM Prelim Date: 09/07/2024 8:25:53 AM Sign Date: 09/07/2024 8:25:53 AM Ordering Provider: LUCY Hackett [facility] LABORATORYOrdered By: Beverly Vail on 09-07-2024 Appearance (U) Clear (09/07/24 9:21 AM) Normal Clear AH Auto Urine SS Bilirubin Ql (U) Negative (09/07/24 9:21 AM) Normal Neg-Trace AH Auto Urine SS Color (U) Yellow (09/07/24 9:21 AM) Normal AH Auto Urine SS Glucose Test strip (U) [Mass/Vol] >=1000 mg/dL Invalid Interpretation Code Negative AH Auto Urine SS Hemoglobin Auto test strip (U) [Mass/Vol] Negative (09/07/24 9:21 AM) Normal Neg-Trace AH Auto Urine SS Ketones Ql (U) Negative Normal Neg-Trace AH Auto Urine SS UA Leuk Est Negative (09/07/24 9:21 AM) Normal Negative AH Auto Urine SS UA Nitrite Negative (09/07/24 9:21 AM) Normal Negative AH Auto Urine SS UA pH 6.0 (09/07/24 9:21 AM) Normal 5.0 - 8.0 AH Auto Urine SS UA Protein Negative Normal Negative AH Auto Urine SS UA Spec Grav 1.015 (09/07/24 9:21 AM) Normal 1.006-1.029 AH Auto Urine SS UA Specimen Type Clean Catch (09/07/24 9:21 AM) Normal AH Auto Urine SS UA Urobilinogen 0.2 E.U./dL Normal 0.2-1.0 Auto Urine SS LABORATORYOrdered By: SYSTEM SYSTEM on 09-07-2024 Troponin I.cardiac DL <= 0.01 ng/mL [Mass/Vol] 11 ng/L Normal 0 - 54 ng/L ADM Comment on above: Interpretive Data: High Sensitive Troponin I Reference Ranges: Female: 0-34 ng/L Male: 0-54 ng/L Testing performed on [employer] IM analyzer using direct chemiluminescent technology. Albumin BCP dye [Mass/Vol] 3.5 G/dL Normal 3.2 - 4.8 G/dL ADM SS Albumin/Globulin [Mass ratio] 1.0 {ratio} Normal 0.9 - 1.6 ratio ADM SS ALP [Catalytic activity/Vol] 61 U/L Normal 38 - 126 U/L ADM SS ALT No additional P-5'-P [Catalytic activity/Vol] 18 U/L Normal 12 - 55 U/L ADM SS aPTT Coag (Bld) [Time] 31.6 s Normal 25.0 - 35.0 seconds [facility] SS Comment on above: Interpretive Data: F or Heparin anticoagulation therapy, the recommended therapeutic range is: 54-77 seconds (APTT Correlation with Anti-Xa therapeutic range of 0.3-0.7 units/ml). PLEASE REFERENCE THE PHARMACY PROTOCOL FOR DOSING. AST [Catalytic activity/Vol] 29 U/L Normal 8 - 34 U/L ADM SS Basophils (Bld) [#/Vol] 0.0 103/mcL Normal 0.0 - 0.3 10^3/mcL AH Workflow SS Basophils/100 WBC (Bld) 1.8 % Normal 0.0 - 2.5 % Workflow SS Bilirubin [Mass/Vol] 0.40 mg/dL Normal 0.20 - 1.20 mg/dL ADM SS Comment on above: Interpretive Data: U se of this assay is not recommended for patients undergoing treatment with eltrombopag due to the potential for falsely elevated results. Calcium [Mass/Vol] 9.6 mg/dL Normal 8.7 - 10. 4 mg/dL ADM SS Chloride [Moles/Vol] 108 mmol/L Normal 98 - 11 0 mEq/L ADM SS CO2 [Moles/Vol] 26 mmol/L Normal 22 - 32 mEq/L ADM SS Creatinine [Mass/Vol] 1.31 mg/dL Normal 0.60 - 1.40 mg/dL ADM SS Comment on above: Interpretive Data: T esting performed on [employer] analyzer using enzymatic creatinine methodology. Electrolyte Balance 6.0 mEq/L Normal 4.0 - 15 .0 mEq/L ADM SS Eosinophils (Bld) [#/Vol] 0.3 103/mcL Normal 0.0 - 0.7 10^3/mcL Workflow SS Eosinophils/100 WBC (Bld) 9.6 % High 0.0 - 6.0 % Workflow SS Erythrocyte distribution width (RBC) [Ratio] 17.4 % High 11.5 - 15.5 % Workflow SS GFR/1.73 sq M.predicted among blacks MDRD (S/P/Bld) [Vol rate/Area] ml/min/1.73sqm Invalid Interpretation Code ADM SS Comment on above: Interpretive Data: GFR Population mean for , Non- Americans Ages 20-29 = 116 mL/min/1.73 sq.m. Ages 30-39 = 107 mL/min/1.73 sq.m. Ages 40-49 = 99 mL/min/1.73 sq.m. Ages 50-59 = 93 mL/min/1.73 sq.m. Ages 60-69 = 85 mL/min/1.73 sq.m. Ages 70+ = 75 mL/min/1.73 sq.m. Chronic Kidney Disease: Less than 60 mL/min/1.73 square meters End Stage Renal Disease: Less than 15 mL/min/1.73 square meters GFR/1.73 sq M.predicted among non-blacks MDRD (S/P/Bld) [Vol rate/Area] 52 ml/min/1.73sqm Invalid Interpretation Code ADM SS Comment on above: Interpretive Data: GFR Population mean for , Non- Americans Ages 20-29 = 116 mL/min/1.73 sq.m. Ages 30-39 = 107 mL/min/1.73 sq.m. Ages 40-49 = 99 mL/min/1.73 sq.m. Ages 50-59 = 93 mL/min/1.73 sq.m. Ages 60-69 = 85 mL/min/1.73 sq.m. Ages 70+ = 75 mL/min/1.73 sq.m. Chronic Kidney Disease: Less than 60 mL/min/1.73 square meters End Stage Renal Disease: Less than 15 mL/min/1.73 square meters Globulin 3.5 G/dL Normal 1.5 - 3.8 G/dL ADM SS Glucose [Mass/Vol] 99 mg/dL Normal 82 - 115 mg/dL ADM SS Hematocrit (Bld) [Volume fraction] 28.7 % Low 40.0 - 52.0 % AH Workflow SS Hemoglobin (Bld) [Mass/Vol] 9.5 G/dL Low 13.0 - 17.5 G/dL AH Workflow SS Lymphocytes (Bld) [#/Vol] 0.4 103/mcL Low 0.9 - 4.3 10^3/mcL Workflow SS Lymphocytes/100 WBC (Bld) 14.3 % Low 20.0 - 40.0 % Workflow SS MCH (RBC) [Entitic mass] 30.1 pg Normal 27.0 - 33.0 pg AH Workflow SS MCHC 33.2 G/dL Normal 32.0 - 36.0 G/dL Workflow SS MCV (RBC) [Entitic vol] 90.7 fL Normal 81.0 - 100.0 fL Workflow SS Monocyte distribution width Auto (Bld) [Entitic vol] 18.78 1 Normal 0.00 - 20.00 Workflow SS Comment on above: Result Comment: For ED adult patients suspected of sepsis, MDW<=20.0 does not rule out sepsis or risk of sepsis Monocytes (Bld) [#/Vol] 0.4 103/mcL Normal 0.1 - 1.4 10^3/mcL Workflow SS Monocytes/100 WBC (Bld) 14.7 % High 2.0 - 13.0 % Workflow SS Neutrophils (Bld) [#/Vol] 1.6 103/mcL Low 2.3 - 8.1 10^3/mcL Workflow SS Neutrophils/100 WBC (Bld) 59.6 % Normal 50.0 - 75.0 % Workflow SS Platelet mean volume (Bld) [Entitic vol] 7.4 fL Normal 6.4 - 10.5 fL Workflow SS Platelets (Bld) [#/Vol] 147 103/mcL Low 150 - 450 10^3/mcL Workflow SS Potassium [Moles/Vol] 4.1 mmol/L Normal 3.5 - 5.0 mEq/L ADM SS Protein [Mass/Vol] 7.0 G/dL Normal 5.7 - 8.2 G/dL ADM SS PT Coag (PPP) [Time] 13.7 s Normal 9.0 - 1 4.4 seconds [facility] Comment on above: Interpretive Data: E ffective 03/19/08, Protime results may be affected by some antibiotics (i.e. Ciprofloxacin, Azithromycin, Bactrim) which may potentiate the action of oral anticoagulants, with further increases in Protime/INR. PT International Ratio 1.2 ratio Invalid Interpretation Code [facility] Comment on above: Interpretive Data: Darren gu [employer] (CHEST, 1992, 102:312S-25S) recommended therapeutic range for oral anticoagulant therapy is: LOW RISK: Prophylaxis of venous thrombosis INR: 2.0-3.0 Treatment of pulmonary embolism 2.0-3.0 Prevention of systemic embolism 2.0-3.0 HIGH RISK: Mechanical prosthetic valves 2.5-3.5 RBC (Bld) [#/Vol] 3.16 106/mcL Low 4.50 - 6.0 0 10^6/mcL Workflow SS Sodium [Moles/Vol] 140 mmol/L Normal 136 - 145 mEq/L ADM Troponin I.cardiac DL <= 0.01 ng/mL [Mass/Vol] 11 ng/L Normal 0 - 54 ng/L ADM Comment on above: Interpretive Data: High Sensitive Troponin I Reference Ranges: Female: 0-34 ng/L Male: 0-54 ng/L Testing performed on [employer] IM analyzer using direct chemiluminescent technology. Urea nitrogen [Mass/Vol] 27.0 mg/dL High 8.0 - 22.0 mg/dL ADM SS Urea nitrogen/Creatinine [Mass ratio] 20.6 ratio Normal 10.0 - 22.0 ratio ADM SS WBC (Bld) [#/Vol] 2.7 103/mcL Low 4.5 - 10.8 10^3/mcL AH Workflow SS PROon 09-07-2024 INR Coag (PPP) [Relative time] 1.2 {INR} Normal [facility] Comment on above: Result Comment: [employer] (CHEST, 1992, 102:312S-25S) recommended therapeutic range for oral anticoagulant therapy is: LOW RISK: Prophylaxis of venous thrombosis INR: 2.0-3.0 Treatment of pulmonary embolism 2.0-3.0 Prevention of systemic embolism 2.0-3.0 HIGH RISK: Mechanical prosthetic valves 2.5-3.5 Performed By: #### C ERICK CALVO, ANEU, ADIFF, GFR, TROPHS, APTT, PRO, CBC ####[address] [address] PT Coag (PPP) [Time] 13.7 s Normal 9.0-14.4 [facility] Comment on above: Result Comment: Effe ctive 03/19/08, Protime results may be affected by some antibiotics (i.e. Ciprofloxacin, Azithromycin, Bactrim) which may potentiate the action of oral anticoagulants, with further increases in Protime/INR. Performed By: #### C ERICK CALVO, ANEU, ADIFF, GFR, TROPHS, APTT, PRO, CBC ####[address] [address] TROPHSon 09-07-2024 High Sensitivity Troponin I 11 ng/L Normal 0-54 [facility] Comment on above: Result Comment: High Sensitive Troponin I Reference Ranges: Female: 0-34 ng/L Male: 0-54 ng/L Testing performed on [employer] IM analyzer using direct chemiluminescent technology. Performed By: #### T JANNY ####[address] [address] High Sensitivity Troponin I 11 ng/L Normal 0-54 [facility] Comment on above: Result Comment: High Sensitive Troponin I Reference Ranges: Female: 0-34 ng/L Male: 0-54 ng/L Testing performed on [employer] analyzer using direct chemiluminescent technology. Performed By: #### C MP, MDW, ANEU, ADIFF, GFR, TROPHS, APTT, PRO, CBC #### [place] [address] UAon 09-07-2024 Color (U) Yellow Normal [facility] Comment on above: Performed By: #### U A ####[place] [address] Glucose (U) [Mass/Vol] mg/dL Abnormal Negative [facility] Comment on above: Performed By: #### U A ####[place] [address] Ketones Ql (U) Negative Normal Neg-Trace [facility] Comment on above: Performed By: #### U A ####[place] [address] UA Appear Clear Normal Clear [facility] Comment on above: Performed By: #### U A ####[place] [address] UA Blood Negative Normal Neg-Trace [facility] Comment on above: Performed By: #### U A ####[place] [address] UA Leuk Est Negative Normal Negative [facility] Comment on above: Performed By: #### U A ####[place] [address] UA Nitrite Negative Normal Negative [facility] Comment on above: Performed By: #### U A ####[place] [address] UA pH 6.0 Normal 5.0 - 8.0 [facility] Comment on above: Performed By: #### U A ####[place] [address] UA Protein Negative Normal Negative [facility] Comment on above: Performed By: #### U A ####[facility] [place] [address] UA Spec Grav 1.015 Normal 1.006-1.029 [facility] Comment on above: Performed By: #### U A ####[facility] [place] [address] UA Specimen Type Clean Catch Normal [facility] Comment on above: Performed By: #### U A ####[facility] [place] [address] UA Urobilinogen 0.2 E.U./dL Normal 0.2-1.0 [facility] Comment on above: Performed By: #### U A ####[place] [address] Urobilinogen (U) [Mass/Vol] Negative Normal Neg-Trace [facility] Comment on above: Performed By: #### U A ####[place] [address] XR CHEST 1 VIEWon 09-07-2024 XR CHEST 1 VIEW ORIGINAL EXAMINATION: ONE XRAY VIEW OF THE CHEST09/07/2024 6:25 am COMPARISON: 09/06/2023 HISTORY: ORDERING SYSTEM PROVIDED HISTORY: Reason for Exam: dizzy FINDINGS: Cardiomediastinal contours are within normal limits. Median sternotomy wires and mediastinal surgical clips are seen. No focal consolidation or pulmonary edema. No pleural effusion or visible pneumothorax. No acute osseous abnormality. Degenerative changes of the visualized osseous structures. IMPRESSION: No acute radiographic findings. Preliminary Report was Dictated by a Resident Interpreted by: Ezekiel Menchaca MD Preliminary Report By: Majo Dang Electronically signed By Ezekiel Menchaca MD Dictated Date: 09/07/2024 6:32:15 AM Prelim Date: 09/07/2024 6:33:38 AM Sign Date: 09/07/2024 7:29:17 AM Ordering Provider: LUCY WALLER [facility] Brain W/WO Contraston 2023 Brain W/WO Contrast [facility] [address] [place] [id number] Brain W/WO Contrast MR#: [id number] Acct: [id number] Name: JAYLEN GALAVIZ Rep #: [id number] : 1935 M 89 From: David Hernandez MD PCP: Dr. 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 CONTRAST: IV 19ml clariscan COMPARISON: No relevant prior studies available. FINDINGS: BRAIN AND EXTRA-AXIAL SPACES: No restricted diffusion to indicate acute ischemia. Increased T2 signal intensity within the cerebral white matter suggestive of chronic microvascular change. Prominence of the cortical sulci and ventricles related to volume loss change. No abnormal contrast enhancement. Basilar cisterns are patent. SELLA: Normal. Normal sella turcica, pituitary gland, infundibular stalk, optic chiasm and hypothalamus. AUDITORY SYSTEM: Normal. The internal auditory canals are patent. BONES/JOINTS: Intact calvarium. SINUSES: Mucosal thickening of the paranasal sinuses. MASTOID AIR CELLS: Clear. ORBITS: Unremarkable as visualized. Both globes, extraocular muscles, optic nerves and retrobulbar fat appear unremarkable. 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 Otherwise normal flow voids within the proximal intracranial vessels. MRI/Brain W/WO Contrast IMPRESSION: 1. No acute intracranial abnormality. As above. 2. Senescent changes. Electronically Signed: David Hernandez MD at 17:04 EST , CC: Dr. Ezekiel Mcdowell MD; Dr. Jaki Fleming DO [employer] Material: Signed Normal [facility] CREATININE FINGERSTICKon CREATININE WB < 1.0 Normal 0.70-1.30 [facility] Comment on above: Performed By: #### L 9100.0200 #### [facility] [address] [place], [address] EGFR WB > 60.0000 Normal >60 [facility] Comment on above: Performed By: #### L 9100.0200 #### [facility] [address] [place], [address] .Auto Diffon 08-01-2024 Basophil, Absolute 0.1 10 3/mcL Normal 0.0-0.2 [facility] Comment on above: Performed By: #### A DIFF, ANEU, CMP, GFR, CBC #### [address] [address] Basophils/100 WBC (Bld) 1.7 % Normal 0.0-2.5 [facility] Comment on above: Performed By: #### A DIFF, ANEU, CMP, GFR, CBC #### [address] [address] Eosinophil, Absolute 0.2 10 3/mcL Normal 0.0-0.7 [facility] Comment on above: Performed By: #### A DIFF, ANEU, CMP, GFR, CBC #### [address] [address] Eosinophils/100 WBC (Bld) 7.2 % High 0.0-7.0 [facility] Comment on above: Performed By: #### A DIFF, ANEU, CMP, GFR, CBC #### [address] [address] Lymphocyte, Absolute 0.4 10 3/mcL Low 0.9-4.3 [facility] Comment on above: Performed By: #### A DIFF, ANEU, CMP, GFR, CBC #### [address] [address] Lymphocytes/100 WBC (Bld) 13.3 % Low 20.0-40.0 [facility] Comment on above: Performed By: #### A DIFF, ANEU, CMP, GFR, CBC #### [address] [address] Monocyte, Absolute 0.6 10 3/mcL Normal 0.1-1.4 [facility] Comment on above: Performed By: #### A DIFF, ANEU, CMP, GFR, CBC #### [address] [address] Monocytes/100 WBC (Bld) 17.4 % High 2.0-13.0 [facility] Comment on above: Performed By: #### A DIFF, ANEU, CMP, GFR, CBC #### [address] [address] Neutrophils/100 WBC (Bld) 60.4 % Normal 50.0-75.0 [facility] Comment on above: Performed By: #### A DIFF, ANEU, CMP, GFR, CBC #### [address] [address] .GFRon 08-01-2024 GFR 64 ml/min/1.73sqm Normal [facility] Comment on above: Result Comment: GFR Population mean for , [...] 15 mL/min/1.73 square meters Performed By: #### A DIFF, ANEU, CMP, GFR, CBC #### [address] [address] GFR Non- 53 ml/min/1.73sqm Normal [facility] Comment on above: Result Comment: GFR Population mean for , [...] 15 mL/min/1.73 square meters Performed By: #### A DIFF, ANEU, CMP, GFR, CBC #### [place] [address] .NEUABSon 08-01-2024 Neutrophil, Absolute 1.9 10 3/mcL Low 2.3-8.1 [facility] Comment on above: Performed By: #### A DIFF, ANEU, CMP, GFR, CBC #### [place] [address] CBCon 08-01-2024 Erythrocyte distribution width (RBC) [Ratio] 16.6 % High 11.5-15.5 [facility] Comment on above: Performed By: #### A DIFF, ANEU, CMP, GFR, CBC #### [place] [address] Hematocrit (Bld) [Volume fraction] 28.6 % Low 40.0-52.0 [facility] Comment on above: Performed By: #### A DIFF, ANEU, CMP, GFR, CBC #### [place] [address] Hgb 9.4 G/dL Low 13.0-17.5 [facility] Comment on above: Performed By: #### A DIFF, ANEU, CMP, GFR, CBC #### [place] [address] MCH (RBC) [Entitic mass] 30.3 pg Normal 27.0-33.0 [facility] Comment on above: Performed By: #### A DIFF, ANEU, CMP, GFR, CBC #### [address] [address] MCHC 33.0 G/dL Normal 32.0-36.0 [facility] Comment on above: Performed By: #### A DIFF, ANEU, CMP, GFR, CBC #### [address] [address] MCV (RBC) [Entitic vol] 91.9 fL Normal 81.0-100.0 [facility] Comment on above: Performed By: #### A DIFF, ANEU, CMP, GFR, CBC #### [address] [address] Platelet 159 10 3/mcL Normal 150-450 [facility] Comment on above: Performed By: #### A DIFF, ANEU, CMP, GFR, CBC #### [address] [address] Platelet mean volume (Bld) [Entitic vol] 7.6 fL Normal 6.4-10.5 [facility] Comment on above: Performed By: #### A DIFF, ANEU, CMP, GFR, CBC #### [address] [address] RBC 3.11 10 6/mcL Low 4.50-6.00 [facility] Comment on above: Performed By: #### A DIFF, ANEU, CMP, GFR, CBC #### [address] [address] WBC 3.2 10 3/mcL Low 4.5-10.8 [facility] Comment on above: Performed By: #### A DIFF, ANEU, CMP, GFR, CBC #### [address] [address] CMPon 08-01-2024 Albumin Level 3.5 G/dL Normal 3.4-4.8 [facility] Comment on above: Performed By: #### A DIFF, ANEU, CMP, GFR, CBC #### [address] [address] Albumin/Globulin [Mass ratio] 1.1 {ratio} Normal 1.1-2.5 [facility] Comment on above: Performed By: #### A DIFF, ANEU, CMP, GFR, CBC #### [address] [address] ALP [Catalytic activity/Vol] 72 U/L Normal 40-135 [facility] Comment on above: Performed By: #### A DIFF, ANEU, CMP, GFR, CBC #### [address] [address] ALT [Catalytic activity/Vol] 21 U/L Normal 16-63 [facility] Comment on above: Performed By: #### A DIFF, ANEU, CMP, GFR, CBC #### [address] [address] AST [Catalytic activity/Vol] 27 U/L Normal 10-40 [facility] Comment on above: Performed By: #### A DIFF, ANEU, CMP, GFR, CBC #### [address] [address] Bili Total 0.3 mg/dL Normal 0.2-1.0 [facility] Comment on above: Result Comment: Use of this assay is not recommended for patients undergoing treatment with eltrombopag due to the potential for falsely elevated results. Performed By: #### A DIFF, ANEU, CMP, GFR, CBC #### [address] [address] BUN/Creatinine Ratio 20 ratio Normal 7-27 [facility] Comment on above: Performed By: #### A DIFF, ANEU, CMP, GFR, CBC #### [address] [address] Calcium [Mass/Vol] 9.0 mg/dL Normal 8.4-10.[address] [facility] Comment on above: Performed By: #### A DIFF, ANEU, CMP, GFR, CBC #### [address] [address] Chloride [Moles/Vol] 99 mmol/L Normal 98-107 [facility] Comment on above: Performed By: #### A DIFF, ANEU, CMP, GFR, CBC #### [place] [address] CO2 [Moles/Vol] 27 mmol/L Normal 23-31 [facility] Comment on above: Performed By: #### A DIFF, ANEU, CMP, GFR, CBC #### [place] [address] Creatinine [Mass/Vol] 1.29 mg/dL Normal 0.70-1.30 [facility] Comment on above: Result Comment: Test ing performed on [employer] EXL analyzer using a modified kinetic Derrell technique. Performed By: #### A DIFF, ANEU, CMP, GFR, CBC #### [place] [address] Electrolyte Balance 9.0 mEq/L Normal 4.0-15.0 [facility] Comment on above: Performed By: #### A DIFF, ANEU, CMP, GFR, CBC #### [place] [address] Globulin 3.2 G/dL Normal [facility] Comment on above: Performed By: #### A DIFF, ANEU, CMP, GFR, CBC #### [place] [address] Glucose [Mass/Vol] 150 mg/dL High 83-[address] [facility] Comment on above: Performed By: #### A DIFF, ANEU, CMP, GFR, CBC #### [place] [address] Potassium [Moles/Vol] 4.5 mmol/L Normal 3.5-5.1 [facility] Comment on above: Performed By: #### A DIFF, ANEU, CMP, GFR, CBC #### [place] [address] Sodium [Moles/Vol] 135 mmol/L Low 136-[address] [facility] Comment on above: Performed By: #### A DIFF, ANEU, CMP, GFR, CBC #### [place] [address] Total Protein 6.7 G/dL Normal 6.4-8.2 [facility] Comment on above: Performed By: #### A DIFF, ANEU, CMP, GFR, CBC #### [place] [address] [place], [place] [address] Urea nitrogen [Mass/Vol] 26 mg/dL High 7-18 [facility] Comment on above: Performed By: #### A DIFF, ANEU, CMP, GFR, CBC #### [place] [address] [place], [place] [address] LABORATORYOrdered By: SYSTEM SYSTEM on 08-01-2024 Albumin BCP dye [Mass/Vol] 3.5 G/dL Normal 3.4 - 4.8 G/dL AO ADM SS Albumin/Globulin [Mass ratio] 1.1 {ratio} Normal 1.1 - 2.5 ratio AO ADM SS ALP [Catalytic activity/Vol] 72 U/L Normal 40 - 135 U/L AO ADM SS ALT With P-5'-P [Catalytic activity/Vol] 21 U/L Normal 16 - 63 U/L AO ADM SS AST With P-5'-P [Catalytic activity/Vol] 27 U/L Normal 10 - 40 U/L AO ADM SS Basophils (Bld) [#/Vol] 0.1 103/mcL Normal 0.0 - 0.2 10^3/mcL AO Workflow SS Basophils/100 WBC (Bld) 1.7 % Normal 0.0 - 2.5 % AO Workflow SS Bilirubin [Mass/Vol] 0.3 mg/dL Normal 0.2 - 1 .0 mg/dL AO ADM SS Comment on above: Interpretive Data: U se of this assay is not recommended for patients undergoing treatment with eltrombopag due to the potential for falsely elevated results. Calcium [Mass/Vol] 9.0 mg/dL Normal 8.4 - 10. 2 mg/dL AO ADM SS Chloride [Moles/Vol] 99 mmol/L Normal 98 - 10 7 mmol/L AO ADM SS CO2 [Moles/Vol] 27 mmol/L Normal 23 - 31 mmol/L AO ADM SS Creatinine [Mass/Vol] 1.29 mg/dL Normal 0.70 - 1.30 mg/dL AO ADM SS Comment on above: Interpretive Data: T esting performed on Siemens Dimension EXL analyzer using a modified kinetic Derrell technique. Electrolyte Balance 9.0 mEq/L Normal 4.0 - 15 .0 mEq/L AO ADM SS Eosinophil, Absolute 0.2 103/mcL Normal 0.0 - 0 .7 10^3/mcL AO Workflow SS Eosinophils/100 WBC (Bld) 7.2 % High 0.0 - 7.0 % AO Workflow SS Erythrocyte distribution width (RBC) [Ratio] 16.6 % High 11.5 - 15.5 % AO Workflow SS GFR/1.73 sq M.predicted among blacks MDRD (S/P/Bld) [Vol rate/Area] 64 ml/min/1.73sqm Invalid Interpretation Code AO Chemistry S Comment on above: Interpretive Data: GFR Population mean for , Non- Americans Ages 20-29 = 116 mL/min/1.73 sq.m. Ages 30-39 = 107 mL/min/1.73 sq.m. Ages 40-49 = 99 mL/min/1.73 sq.m. Ages 50-59 = 93 mL/min/1.73 sq.m. Ages 60-69 = 85 mL/min/1.73 sq.m. Ages 70+ = 75 mL/min/1.73 sq.m. Chronic Kidney Disease: Less than 60 mL/min/1.73 square meters End Stage Renal Disease: Less than 15 mL/min/1.73 square meters GFR/1.73 sq M.predicted among non-blacks MDRD (S/P/Bld) [Vol rate/Area] 53 ml/min/1.73sqm Invalid Interpretation Code AO Chemistry S Comment on above: Interpretive Data: GFR Population mean for , Non- Americans Ages 20-29 = 116 mL/min/1.73 sq.m. Ages 30-39 = 107 mL/min/1.73 sq.m. Ages 40-49 = 99 mL/min/1.73 sq.m. Ages 50-59 = 93 mL/min/1.73 sq.m. Ages 60-69 = 85 mL/min/1.73 sq.m. Ages 70+ = 75 mL/min/1.73 sq.m. Chronic Kidney Disease: Less than 60 mL/min/1.73 square meters End Stage Renal Disease: Less than 15 mL/min/1.73 square meters Globulin 3.2 G/dL Invalid Interpretation Code AO ADM SS Glucose [Mass/Vol] 150 mg/dL High 83 - 110 mg/dL AO ADM SS Hematocrit (Bld) [Volume fraction] 28.6 % Low 40.0 - 52.0 % AO Workflow SS Hemoglobin (Bld) [Mass/Vol] 9.4 G/dL Low 13.0 - 17.5 G/dL AO Workflow SS Lymphocytes (Bld) [#/Vol] 0.4 103/mcL Low 0.9 - 4.3 10^3/mcL AO Workflow SS Lymphocytes/100 WBC (Bld) 13.3 % Low 20.0 - 40.0 % AO Workflow SS MCH (RBC) [Entitic mass] 30.3 pg Normal 27.0 - 33.0 pg AO Workflow SS MCHC 33.0 G/dL Normal 32.0 - 36.0 G/dL AO Workflow SS MCV (RBC) [Entitic vol] 91.9 fL Normal 81.0 - 100.0 fL AO Workflow SS Monocytes (Bld) [#/Vol] 0.6 103/mcL Normal 0.1 - 1.4 10^3/mcL AO Workflow SS Monocytes/100 WBC (Bld) 17.4 % High 2.0 - 13.0 % AO Workflow SS Neutrophils (Bld) [#/Vol] 1.9 103/mcL Low 2.3 - 8.1 10^3/mcL AO Workflow SS Neutrophils/100 WBC (Bld) 60.4 % Normal 50.0 - 75.0 % AO Workflow SS Platelet mean volume (Bld) [Entitic vol] 7.6 fL Normal 6.4 - 10.5 fL AO Workflow SS Platelets (Bld) [#/Vol] 159 103/mcL Normal 150 - 450 10^3/mcL AO Workflow SS Potassium [Moles/Vol] 4.5 mmol/L Normal 3.5 - 5.1 mmol/L AO ADM SS Protein [Mass/Vol] 6.7 G/dL Normal 6.4 - 8.2 G/dL AO ADM SS RBC (Bld) [#/Vol] 3.11 106/mcL Low 4.50 - 6.0 0 10^6/mcL AO Workflow SS Sodium [Moles/Vol] 135 mmol/L Low 136 - 145 mmol/L AO ADM SS Urea nitrogen [Mass/Vol] 26 mg/dL High 7 - 18 mg/dL AO ADM SS Urea nitrogen/Creatinine [Mass ratio] 20 ratio Normal 7 - 27 ratio AO ADM SS WBC (Bld) [#/Vol] 3.2 103/mcL Low 4.5 - 10.8 10^3/mcL AO Workflow SS Carotid Duplex Ultrasoundon 07-24-2024 Carotid Duplex Ultrasound [facility] [address] [place] [address] Carotid Duplex Ultrasound 07/24/24 1407 MR#: [id number] Acct: [id number] Name: JAYLEN GALAVIZ Rep #: [id number] : 1935 89 From: Mariel Garza MD Attending Dr: Dr. Ezekiel Mcdowell MD Status: R EG CLI Ordering Dr: Ezekiel Mcdowell MD Date: 07/24/24 Location: [facility] Sex: M C Admitted: Reason For Study: Diplopia Rt. Velocities/BP Lt. Velocities/BP Prox CCA 66.4/13.5 cm/sec. Prox CCA 65.2/10.2 cm/sec. Mid CCA 73/15.4 cm/sec. Mid CCA 58.6/14.6 cm/sec. Dist CCA 54.1/9.7 cm/sec. Dist CCA 57.5/10.2 cm/sec. Prox ICA 73/17.3 cm/sec. Prox ICA 56.4/20.1 cm/sec. Mid ICA 78.7/22 cm/sec. Mid ICA 69.6/15.7 cm/sec. Dist ICA 94.9/26.2 cm/sec. Dist ICA 52/12.4 cm/sec. Rt. ICA/CCA = 1.3. Lt. ICA/CCA = 1.19. Prox ECA 57/5 cm/sec. Prox ECA 59.7/6.9 cm/sec. Rt. Vert. 36.6/13.5 cm/sec. Lt. Vert. 21.8/3.7 cm/sec. Right Extracranial There is intimal thickening but no significant atherosclerotic plaque noted in the right common carotid artery. There is heterogeneous, irregular atherosclerotic plaque noted in the right internal carotid artery. There is intimal thickening but no significant atherosclerotic plaque noted in the right external carotid artery. Antegrade flow is noted in the right vertebral artery. Left Extracranial There is intimal thickening but no significant atherosclerotic plaque noted in the left common carotid artery. There is homogeneous, smooth atherosclerotic plaque noted in the left internal carotid artery. There is intimal thickening but no significant atherosclerotic plaque noted in the left external carotid artery. Antegrade flow is noted in the left vertebral artery. Procedure Carotid Duplex [id number]. This is a Carotid Duplex examination using B-mode, color flow and specral Doppler. Exam performed in department. VL/Carotid Duplex Ultrasound Interpretation Summary Mild (<50%) stenosis right extracranial internal carotid. Mild (<50%) stenosis left extracranial internal carotid. Patent and antegrade vertebrals bilaterally. Ordering Physician: Ezekiel Mcdowell Referring Physician: Jaki Fleming Performed By: Josselin Boyd RVT 07/24/241834 Date Mariel Garza MD CC: Dr. Ezekiel Mcdowell MD; Dr. Jaki Fleming DO Date Dictated: 07/24/24 1407 Date Transcribed: 07/24/241834 [employer] Material: Signed [facility] LABORATORYOrdered By: SYSTEM SYSTEM on 07-11-2024 Albumin BCP dye [Mass/Vol] 3.5 G/dL Normal 3.4 - 4.8 G/dL AO ADM SS Albumin/Globulin [Mass ratio] 1.1 {ratio} Normal 1.1 - 2.5 ratio AO ADM SS ALP [Catalytic activity/Vol] 69 U/L Normal 40 - 135 U/L AO ADM SS ALT With P-5'-P [Catalytic activity/Vol] 28 U/L Normal 16 - 63 U/L AO ADM SS AST With P-5'-P [Catalytic activity/Vol] 25 U/L Normal 10 - 40 U/L AO ADM SS Basophils (Bld) [#/Vol] 0.0 103/mcL Normal 0.0 - 0.2 10^3/mcL AO Workflow SS Basophils/100 WBC (Bld) 1.3 % Normal 0.0 - 2.5 % AO Workflow SS Bilirubin [Mass/Vol] 0.4 mg/dL Normal 0.2 - 1 .0 mg/dL AO ADM SS Comment on above: Interpretive Data: U se of this assay is not recommended for patients undergoing treatment with eltrombopag due to the potential for falsely elevated results. Calcium [Mass/Vol] 9.2 mg/dL Normal 8.4 - 10. 2 mg/dL AO ADM SS Chloride [Moles/Vol] 101 mmol/L Normal 98 - 10 7 mmol/L AO ADM SS CO2 [Moles/Vol] 30 mmol/L Normal 23 - 31 mmol/L AO ADM SS Creatinine [Mass/Vol] 1.28 mg/dL Normal 0.70 - 1.30 mg/dL AO ADM SS Comment on above: Interpretive Data: T esting performed on Siemens Dimension EXL analyzer using a modified kinetic Derrell technique. Electrolyte Balance 6.0 mEq/L Normal 4.0 - 15 .0 mEq/L AO ADM SS Eosinophil, Absolute 0.4 103/mcL Normal 0.0 - 0 .7 10^3/mcL AO Workflow SS Eosinophils/100 WBC (Bld) 9.9 % High 0.0 - 7.0 % AO Workflow SS Erythrocyte distribution width (RBC) [Ratio] 16.6 % High 11.5 - 15.5 % AO Workflow SS Follitropin Qn 6.4 m[IU]/mL Normal 1.4 - 18.1 mIU/mL AH ADM SS Comment on above: Interpretive Data: A dult Female FSH Reference Ranges (07/29/99): Follicular phase 2.5 - 10.2 mIU/mL Midcycle phase 3.4 - 33.4 mIU/mL Luteal phase 1.5 - 9.1 mIU/mL Post menopausal 23.0 -116.3 mIU/mL Adult Male: 1.4 - 18.1 mIU/mL GFR/1.73 sq M.predicted among blacks MDRD (S/P/Bld) [Vol rate/Area] 64 ml/min/1.73sqm Invalid Interpretation Code AO Chemistry S Comment on above: Interpretive Data: GFR Population mean for , Non- Americans Ages 20-29 = 116 mL/min/1.73 sq.m. Ages 30-39 = 107 mL/min/1.73 sq.m. Ages 40-49 = 99 mL/min/1.73 sq.m. Ages 50-59 = 93 mL/min/1.73 sq.m. Ages 60-69 = 85 mL/min/1.73 sq.m. Ages 70+ = 75 mL/min/1.73 sq.m. Chronic Kidney Disease: Less than 60 mL/min/1.73 square meters End Stage Renal Disease: Less than 15 mL/min/1.73 square meters GFR/1.73 sq M.predicted among non-blacks MDRD (S/P/Bld) [Vol rate/Area] 53 ml/min/1.73sqm Invalid Interpretation Code AO Chemistry S Comment on above: Interpretive Data: GFR Population mean for , Non- Americans Ages 20-29 = 116 mL/min/1.73 sq.m. Ages 30-39 = 107 mL/min/1.73 sq.m. Ages 40-49 = 99 mL/min/1.73 sq.m. Ages 50-59 = 93 mL/min/1.73 sq.m. Ages 60-69 = 85 mL/min/1.73 sq.m. Ages 70+ = 75 mL/min/1.73 sq.m. Chronic Kidney Disease: Less than 60 mL/min/1.73 square meters End Stage Renal Disease: Less than 15 mL/min/1.73 square meters Globulin 3.2 G/dL Invalid Interpretation Code AO ADM SS Glucose [Mass/Vol] 150 mg/dL High 83 - 110 mg/dL AO ADM SS Glucose [Mass/Vol] 148 mg/dL Invalid Interpretation Code AO Chemistry S Comment on above: Interpretive Data: E stimated average glucose (eAG) is a calculated value from Hemoglobin A1C and is outside sales representative insurance of the average blood glucose level in the last 2-3 month period. Normal range: less than 114 mg/dL HbA1c (Bld) [Mass fraction] 6.8 % High 4.0 - 6.0 % AH Auto Chem SS Hematocrit (Bld) [Volume fraction] 28.5 % Low 40.0 - 52.0 % AO Workflow SS Hemoglobin (Bld) [Mass/Vol] 9.5 G/dL Low 13.0 - 17.5 G/dL AO Workflow SS Iron [Mass/Vol] 60 ug/dL Low 65 - 175 mcg/dL AO ADM SS Iron binding capacity [Mass/Vol] 309 mcg/dL Normal 250 - 450 mcg/dL AO ADM SS Lymphocytes (Bld) [#/Vol] 0.4 103/mcL Low 0.9 - 4.3 10^3/mcL AO Workflow SS Lymphocytes/100 WBC (Bld) 11.3 % Low 20.0 - 40.0 % AO Workflow SS MCH (RBC) [Entitic mass] 30.5 pg Normal 27.0 - 33.0 pg AO Workflow SS MCHC 33.2 G/dL Normal 32.0 - 36.0 G/dL AO Workflow SS MCV (RBC) [Entitic vol] 91.8 fL Normal 81.0 - 100.0 fL AO Workflow SS Monocytes (Bld) [#/Vol] 0.6 103/mcL Normal 0.1 - 1.4 10^3/mcL AO Workflow SS Monocytes/100 WBC (Bld) 15.4 % High 2.0 - 13.0 % AO Workflow SS Neutrophils (Bld) [#/Vol] 2.3 103/mcL Normal 2.3 - 8.1 10^3/mcL AO Workflow SS Neutrophils/100 WBC (Bld) 62.1 % Normal 50.0 - 75.0 % AO Workflow SS Platelet mean volume (Bld) [Entitic vol] 7.0 fL Normal 6.4 - 10.5 fL AO Workflow SS Platelets (Bld) [#/Vol] 149 103/mcL Low 150 - 450 10^3/mcL AO Workflow SS Potassium [Moles/Vol] 4.4 mmol/L Normal 3.5 - 5.1 mmol/L AO ADM SS Protein [Mass/Vol] 6.7 G/dL Normal 6.4 - 8.2 G/dL AO ADM SS RBC (Bld) [#/Vol] 3.11 106/mcL Low 4.50 - 6.0 0 10^6/mcL AO Workflow SS Sodium [Moles/Vol] 137 mmol/L Normal 136 - 145 mmol/L AO ADM SS Urea nitrogen [Mass/Vol] 25 mg/dL High 7 - 18 mg/dL AO ADM SS Urea nitrogen/Creatinine [Mass ratio] 20 ratio Normal 7 - 27 ratio AO ADM SS WBC (Bld) [#/Vol] 3.6 103/mcL Low 4.5 - 10.8 10^3/mcL AO Workflow SS Prostate specific Ag [Mass/Vol] ng/mL Normal 0.00 - 4.00 ng/mL AO ADM SS LABORATORYOrdered By: Brain Baker on 07-11-2024 Cholesterol [Mass/Vol] 249 mg/dL High 0 - 2 00 mg/dL AO ADM SS Comment on above: Interpretive Data: C holesterol Reference Interval: Less than 200 Desirable 200-239 Borderline high risk 240 and above High risk Cholesterol in HDL [Mass/Vol] 48 mg/dL Normal 40 - 60 mg/dL AO ADM SS Cholesterol in LDL [Mass/Vol] 174 mg/dL High 0 - 130 mg/dL AO ADM SS Triglyceride [Mass/Vol] 136 mg/dL Normal 0 - 150 mg/dL AO ADM SS Comment on above: Interpretive Data: T riglyceride Reference Interval: Less than 150 Normal 150-199 Borderline high risk 200-499 High risk 500 or higher Very high risk LABORATORYOrdered By: Vapotherm SYSTEM on 05-11-2024 Albumin BCP dye [Mass/Vol] 3.4 G/dL Normal 3.4 - 4.8 G/dL AO ADM SS Albumin/Globulin [Mass ratio] 1.1 {ratio} Normal 1.1 - 2.5 ratio AO ADM SS ALP [Catalytic activity/Vol] 63 U/L Normal 40 - 135 U/L AO ADM SS ALT With P-5'-P [Catalytic activity/Vol] 22 U/L Normal 16 - 63 U/L AO ADM SS AST With P-5'-P [Catalytic activity/Vol] 23 U/L Normal 10 - 40 U/L AO ADM SS Basophils (Bld) [#/Vol] 0.0 103/mcL Normal 0.0 - 0.2 10^3/mcL AO Workflow SS Basophils/100 WBC (Bld) 1.2 % Normal 0.0 - 2.5 % AO Workflow SS Bilirubin [Mass/Vol] 0.2 mg/dL Normal 0.2 - 1 .0 mg/dL AO ADM SS Comment on above: Interpretive Data: U se of this assay is not recommended for patients undergoing treatment with eltrombopag due to the potential for falsely elevated results. Calcium [Mass/Vol] 9.3 mg/dL Normal 8.4 - 10. 2 mg/dL AO ADM SS Chloride [Moles/Vol] 103 mmol/L Normal 98 - 10 7 mmol/L AO ADM SS CO2 [Moles/Vol] 25 mmol/L Normal 23 - 31 mmol/L AO ADM SS Creatinine [Mass/Vol] 1.28 mg/dL Normal 0.70 - 1.30 mg/dL AO ADM SS Comment on above: Interpretive Data: T esting performed on Siemens Dimension EXL analyzer using a modified kinetic Derrell technique. Electrolyte Balance 10.0 mEq/L Normal 4.0 - 15 .0 mEq/L AO ADM SS Eosinophil, Absolute 0.3 103/mcL Normal 0.0 - 0 .4 10^3/mcL AO Workflow SS Eosinophils/100 WBC (Bld) 7.8 % High 0.0 - 7.0 % AO Workflow SS Erythrocyte distribution width (RBC) [Ratio] 16.3 % High 11.5 - 14.5 % AO Workflow SS GFR/1.73 sq M.predicted among blacks MDRD (S/P/Bld) [Vol rate/Area] 64 ml/min/1.73sqm Invalid Interpretation Code AO Chemistry S Comment on above: Interpretive Data: GFR Population mean for , Non- Americans Ages 20-29 = 116 mL/min/1.73 sq.m. Ages 30-39 = 107 mL/min/1.73 sq.m. Ages 40-49 = 99 mL/min/1.73 sq.m. Ages 50-59 = 93 mL/min/1.73 sq.m. Ages 60-69 = 85 mL/min/1.73 sq.m. Ages 70+ = 75 mL/min/1.73 sq.m. Chronic Kidney Disease: Less than 60 mL/min/1.73 square meters End Stage Renal Disease: Less than 15 mL/min/1.73 square meters GFR/1.73 sq M.predicted among non-blacks MDRD (S/P/Bld) [Vol rate/Area] 53 ml/min/1.73sqm Invalid Interpretation Code AO Chemistry S Comment on above: Interpretive Data: GFR Population mean for , Non- Americans Ages 20-29 = 116 mL/min/1.73 sq.m. Ages 30-39 = 107 mL/min/1.73 sq.m. Ages 40-49 = 99 mL/min/1.73 sq.m. Ages 50-59 = 93 mL/min/1.73 sq.m. Ages 60-69 = 85 mL/min/1.73 sq.m. Ages 70+ = 75 mL/min/1.73 sq.m. Chronic Kidney Disease: Less than 60 mL/min/1.73 square meters End Stage Renal Disease: Less than 15 mL/min/1.73 square meters Globulin 3.1 G/dL Invalid Interpretation Code AO ADM SS Glucose [Mass/Vol] 100 mg/dL Normal 83 - 110 mg/dL AO ADM SS Hematocrit (Bld) [Volume fraction] 28.4 % Low 42.0 - 52.0 % AO Workflow SS Hemoglobin (Bld) [Mass/Vol] 9.4 G/dL Low 14.0 - 18.0 G/dL AO Workflow SS Lymphocytes (Bld) [#/Vol] 0.5 103/mcL Low 0.8 - 3.9 10^3/mcL AO Workflow SS Lymphocytes/100 WBC (Bld) 14.2 % Normal 10.0 - 50.0 % AO Workflow SS MCH (RBC) [Entitic mass] 30.6 pg Normal 27.0 - 31.2 pg AO Workflow SS MCHC 33.2 G/dL Normal 31.8 - 35.4 G/dL AO Workflow SS MCV (RBC) [Entitic vol] 92.2 fL Normal 80.0 - 94.0 fL AO Workflow SS Monocytes (Bld) [#/Vol] 0.5 103/mcL Normal 0.2 - 1.0 10^3/mcL AO Workflow SS Monocytes/100 WBC (Bld) 14.3 % High 1.7 - 13.0 % AO Workflow SS Neutrophils (Bld) [#/Vol] 2.0 103/mcL Low 2.9 - 6.2 10^3/mcL AO Workflow SS Neutrophils/100 WBC (Bld) 62.5 % Normal 37.0 - 80.0 % AO Workflow SS Platelet mean volume (Bld) [Entitic vol] 7.5 fL Normal 7.4 - 10.4 fL AO Workflow SS Platelets (Bld) [#/Vol] 155 103/mcL Normal 130 - 400 10^3/mcL AO Workflow SS Potassium [Moles/Vol] 4.5 mmol/L Normal 3.5 - 5.1 mmol/L AO ADM SS Protein [Mass/Vol] 6.5 G/dL Normal 6.4 - 8.2 G/dL AO ADM SS RBC (Bld) [#/Vol] 3.08 106/mcL Low 4.04 - 6.1 3 10^6/mcL AO Workflow SS Sodium [Moles/Vol] 138 mmol/L Normal 136 - 145 mmol/L AO ADM SS Urea nitrogen [Mass/Vol] 23 mg/dL High 7 - 18 mg/dL AO ADM SS Urea nitrogen/Creatinine [Mass ratio] 18 ratio Normal 7 - 27 ratio AO ADM SS WBC (Bld) [#/Vol] 3.3 103/mcL Low 4.6 - 10.8 10^3/mcL AO Workflow SS LABORATORYOrdered By: Sanjuanita Pugh on 05-04-2024 Appearance (U) Clear (05/04/24 11:22 AM) Normal Clear AH Auto Urine SS Bilirubin Ql (U) Negative (05/04/24 11:22 AM) Normal Neg-Trace AH Auto Urine SS Color (U) Yellow (05/04/24 11:22 AM) Normal AH Auto Urine SS Glucose Test strip (U) [Mass/Vol] Negative Normal Negative AH Auto Urine SS Hemoglobin Auto test strip (U) [Mass/Vol] Negative (05/04/24 11:22 AM) Normal Neg-Trace AH Auto Urine SS Ketones Ql (U) Negative Normal Neg-Trace AH Auto Urine SS UA Leuk Est Negative (05/04/24 11: AM) Normal Negative AH Auto Urine SS UA Nitrite Negative (05/04/24 11:22 AM) Normal Negative AH Auto Urine SS UA pH 5.5 (05/04/24 11:22 AM) Normal 5.0 - 8.0 AH Auto Urine SS UA Protein Negative Normal Negative AH Auto Urine SS UA Spec Grav 1.025 (05/04/24 11:22 AM) Normal 1.006-1.029 AH Auto Urine SS UA Specimen Type Clean Catch (05/04/24 11:22 AM) Normal AH Auto Urine SS UA Urobilinogen 0.2 E.U./dL Normal 0.2-1.0 AH Auto Urine SS LABORATORYOrdered By: SYSTEM SYSTEM on 05-04-2024 Albumin BCP dye [Mass/Vol] 3.7 G/dL Normal 3.2 - 4.8 G/dL ADM SS Albumin/Globulin [Mass ratio] 1.1 {ratio} Normal 0.9 - 1.6 ratio AH ADM SS ALP [Catalytic activity/Vol] 62 U/L Normal 38 - 126 U/L ADM SS ALT No additional P-5'-P [Catalytic activity/Vol] 17 U/L Normal 12 - 55 U/L AH ADM SS AST [Catalytic activity/Vol] 31 U/L Normal 8 - 34 U/L ADM SS Basophils (Bld) [#/Vol] 0.0 103/mcL Normal 0.0 - 0.3 10^3/mcL Workflow SS Basophils/100 WBC (Bld) 1.8 % Normal 0.0 - 2.5 % Workflow SS Bilirubin [Mass/Vol] 0.30 mg/dL Normal 0.20 - 1.20 mg/dL ADM SS Comment on above: Interpretive Data: U se of this assay is not recommended for patients undergoing treatment with eltrombopag due to the potential for falsely elevated results. Calcium [Mass/Vol] 9.8 mg/dL Normal 8.7 - 10. 4 mg/dL AH ADM SS Chloride [Moles/Vol] 107 mmol/L Normal 98 - 11 0 mEq/L ADM SS CO2 [Moles/Vol] 27 mmol/L Normal 22 - 32 mEq/L ADM SS Creatinine [Mass/Vol] 1.16 mg/dL Normal 0.60 - 1.40 mg/dL ADM SS Comment on above: Interpretive Data: T esting performed on SumZero analyzer using enzymatic creatinine methodology. Electrolyte Balance 6.0 mEq/L Normal 4.0 - 15 .0 mEq/L AH ADM SS Eosinophils (Bld) [#/Vol] 0.2 103/mcL Normal 0.0 - 0.7 10^3/mcL Workflow SS Eosinophils/100 WBC (Bld) 8.3 % High 0.0 - 6.0 % Workflow SS Erythrocyte distribution width (RBC) [Ratio] 17.0 % High 11.5 - 15.5 % Workflow SS GFR/1.73 sq M.predicted among blacks MDRD (S/P/Bld) [Vol rate/Area] ml/min/1.73sqm Invalid Interpretation Code [facility] Comment on above: Interpretive Data: GFR Population mean for , Non- Americans Ages 20-29 = 116 mL/min/1.73 sq.m. Ages 30-39 = 107 mL/min/1.73 sq.m. Ages 40-49 = 99 mL/min/1.73 sq.m. Ages 50-59 = 93 mL/min/1.73 sq.m. Ages 60-69 = 85 mL/min/1.73 sq.m. Ages 70+ = 75 mL/min/1.73 sq.m. Chronic Kidney Disease: Less than 60 mL/min/1.73 square meters End Stage Renal Disease: Less than 15 mL/min/1.73 square meters GFR/1.73 sq M.predicted among non-blacks MDRD (S/P/Bld) [Vol rate/Area] 60 ml/min/1.73sqm Invalid Interpretation Code [facility] Comment on above: Interpretive Data: GFR Population mean for , Non- Americans Ages 20-29 = 116 mL/min/1.73 sq.m. Ages 30-39 = 107 mL/min/1.73 sq.m. Ages 40-49 = 99 mL/min/1.73 sq.m. Ages 50-59 = 93 mL/min/1.73 sq.m. Ages 60-69 = 85 mL/min/1.73 sq.m. Ages 70+ = 75 mL/min/1.73 sq.m. Chronic Kidney Disease: Less than 60 mL/min/1.73 square meters End Stage Renal Disease: Less than 15 mL/min/1.73 square meters Globulin 3.5 G/dL Normal 1.5 - 3.8 G/dL ADM Glucose [Mass/Vol] 124 mg/dL High 82 - 115 mg/dL ADM SS Hematocrit (Bld) [Volume fraction] 29.3 % Low 40.0 - 52.0 % Workflow SS Hemoglobin (Bld) [Mass/Vol] 9.7 G/dL Low 13.0 - 17.5 G/dL Workflow SS Lipase [Catalytic activity/Vol] 35 U/L Normal 12 - 53 U/L ADM Comment on above: Interpretive Data: * *Note - New Reference Range in effect 20 Lymphocytes (Bld) [#/Vol] 0.3 103/mcL Low 0.9 - 4.3 10^3/mcL AH Workflow SS Lymphocytes/100 WBC (Bld) 13.8 % Low 20.0 - 40.0 % AH Workflow SS MCH (RBC) [Entitic mass] 30.6 pg Normal 27.0 - 33.0 pg AH Workflow SS MCHC 33.0 G/dL Normal 32.0 - 36.0 G/dL AH Workflow SS MCV (RBC) [Entitic vol] 92.7 fL Normal 81.0 - 100.0 fL AH Workflow SS Monocyte distribution width Auto (Bld) [Entitic vol] 19.31 1 Normal 0.00 - 20.00 AH Workflow SS Comment on above: Result Comment: For ED adult patients suspected of sepsis, MDW<=20.0 does not rule out sepsis or risk of sepsis Monocytes (Bld) [#/Vol] 0.4 103/mcL Normal 0.1 - 1.4 10^3/mcL AH Workflow SS Monocytes/100 WBC (Bld) 16.8 % High 2.0 - 13.0 % AH Workflow SS Neutrophils (Bld) [#/Vol] 1.5 103/mcL Low 2.3 - 8.1 10^3/mcL AH Workflow SS Neutrophils/100 WBC (Bld) 59.3 % Normal 50.0 - 75.0 % AH Workflow SS Platelet mean volume (Bld) [Entitic vol] 7.7 fL Normal 6.4 - 10.5 fL AH Workflow SS Platelets (Bld) [#/Vol] 136 103/mcL Low 150 - 450 10^3/mcL AH Workflow SS Potassium [Moles/Vol] 4.6 mmol/L Normal 3.5 - 5.0 mEq/L AH ADM SS Protein [Mass/Vol] 7.2 G/dL Normal 5.7 - 8.2 G/dL AH ADM SS Comment on above: Interpretive Data: * *Note - New Reference Range in effect 20 RBC (Bld) [#/Vol] 3.16 106/mcL Low 4.50 - 6.0 0 10^6/mcL AH Workflow SS Sodium [Moles/Vol] 140 mmol/L Normal 136 - 145 mEq/L AH ADM SS Urea nitrogen [Mass/Vol] 31.0 mg/dL High 8.0 - 22.0 mg/dL AH ADM SS Urea nitrogen/Creatinine [Mass ratio] 26.7 ratio High 10.0 - 22.0 ratio AH ADM SS WBC (Bld) [#/Vol] 2.5 103/mcL Low 4.5 - 10.8 10^3/mcL AH Workflow SS CURon 04-23-2024 CUR Normal [facility] ([place]) LABORATORYOrdered By: Brain Baker on 03-01-2024 Albumin DL <= 20 mg/L (U) [Mass/Vol] 3672 mcg/dL Invalid Interpretation Code AO ADM SS Albumin/Creatinine DL <= 20 mg/L (U) [Mass ratio] 46 mcg/mg High 0 - 30 mcg/mg AO ADM SS Creatinine (U) [Mass/Vol] 79.4 mg/dL Normal 39.0 - 259.0 mg/dL AO ADM SS MALBRon 03-01-2024 U Creatinine 79.4 mg/dL Normal 39.0-259.0 [facility] ([place]) Comment on above: Performed By: #### M ALBR ####[address] [place], [place] [address] U Microalb 3672 mcg/dL Normal [facility] ([place]) Comment on above: Performed By: #### M ALBR ####[address] [place], [place] [address] U Ratio Alb/Cre 46 mcg/mg High 0-30 [facility] ([place]) Comment on above: Performed By: #### M ALBR ####[address] [place], [place] [address] .Auto Diffon 02-24-2024 Basophil, Absolute 0.0 10 3/mcL Normal 0.0-0.2 [facility] ([place]) Comment on above: Performed By: #### A 1C, TSH, CBC, GFR, ADIFF, CMP, VIDH, LIPID, ANEU ####[address] [place], [place] [address]#### FOL, B12 ####[address] [address] Basophils/100 WBC (Bld) 1.0 % Normal 0.0-2.5 [facility] ([place]) Comment on above: Performed By: #### A 1C, TSH, CBC, GFR, ADIFF, CMP, VIDH, LIPID, ANEU ####[place] [address]#### FOL, B12 ####[address] [address] Eosinophil, Absolute 0.2 10 3/mcL Normal 0.0-0.4 [facility] ([place]) Comment on above: Performed By: #### A 1C, TSH, CBC, GFR, ADIFF, CMP, VIDH, LIPID, ANEU ####[place] [address]#### FOL, B12 ####[address] [address] Eosinophils/100 WBC (Bld) 7.6 % High 0.0-7.0 [facility] ([place]) Comment on above: Performed By: #### A 1C, TSH, CBC, GFR, ADIFF, CMP, VIDH, LIPID, ANEU ####[place] [address]#### FOL, B12 ####[address] [address] Lymphocyte, Absolute 0.4 10 3/mcL Low 0.8-3.9 [facility] ([place]) Comment on above: Performed By: #### A 1C, TSH, CBC, GFR, ADIFF, CMP, VIDH, LIPID, ANEU ####[place] [address]#### FOL, B12 ####[address] [address] Lymphocytes/100 WBC (Bld) 11.4 % Normal 10.0-50.0 [facility] ([place]) Comment on above: Performed By: #### A 1C, TSH, CBC, GFR, ADIFF, CMP, VIDH, LIPID, ANEU ####[place] [address]#### FOL, B12 ####[address] [address] Monocyte, Absolute 0.5 10 3/mcL Normal 0.2-1.0 [facility] ([place]) Comment on above: Performed By: #### A 1C, TSH, CBC, GFR, ADIFF, CMP, VIDH, LIPID, ANEU ####[address] [address]#### FOL, B12 ####[address] [address] Monocytes/100 WBC (Bld) 15.2 % High 1.7-13.0 [facility] ([place]) Comment on above: Performed By: #### A 1C, TSH, CBC, GFR, ADIFF, CMP, VIDH, LIPID, ANEU ####[address] [address]#### FOL, B12 ####[address] [address] Neutrophils/100 WBC (Bld) 64.8 % Normal 37.0-80.0 [facility] ([place]) Comment on above: Performed By: #### A 1C, TSH, CBC, GFR, ADIFF, CMP, VIDH, LIPID, ANEU ####[address] [id number]#### FOL, B12 ####[address] [address] .GFRon 02-24-2024 GFR 56 ml/min/1.73sqm Normal [facility] ([place]) Comment on above: Result Comment: GFR Population mean for , Non- Americans Ages 20-29 = 116 mL/min/1.73 sq.m. Ages 30-39 = 107 mL/min/1.73 sq.m. Ages 40-49 = 99 mL/min/1.73 sq.m. Ages 50-59 = 93 mL/min/1.73 sq.m. Ages 60-69 = 85 mL/min/1.73 sq.m. Ages 70+ = 75 mL/min/1.73 sq.m.Chronic Kidney Disease: Less than 60 mL/min/1.73 square metersEnd Stage Renal Disease: Less than 15 mL/min/1.73 square meters Performed By: #### A 1C, TSH, CBC, GFR, ADIFF, CMP, VIDH, LIPID, ANEU ####[address] [address]#### BRANDIN, B12 ####[place] [address] GFR Non- 46 ml/min/1.73sqm Normal [facility] ([place]) Comment on above: Result Comment: GFR Population mean for , Non- Americans Ages 20-29 = 116 mL/min/1.73 sq.m. Ages 30-39 = 107 mL/min/1.73 sq.m. Ages 40-49 = 99 mL/min/1.73 sq.m. Ages 50-59 = 93 mL/min/1.73 sq.m. Ages 60-69 = 85 mL/min/1.73 sq.m. Ages 70+ = 75 mL/min/1.73 sq.m.Chronic Kidney Disease: Less than 60 mL/min/1.73 square metersEnd Stage Renal Disease: Less than 15 mL/min/1.73 square meters Performed By: #### A 1C, TSH, CBC, GFR, ADIFF, CMP, VIDH, LIPID, ANEU ####[place] [id number]#### BRANDIN, B12 ####[place] [address] .NEUABSon 02-24-2024 Neutrophil, Absolute 2.1 10 3/mcL Low 2.9-6.2 [facility] ([place]) Comment on above: Performed By: #### A 1C, TSH, CBC, GFR, ADIFF, CMP, VIDH, LIPID, ANEU ####[place] [id number]#### FOL, B12 ####[place] [address] A1Con 02-24-2024 HbA1c (Bld) [Mass fraction] 6.9 % High 4.3-6.4 [facility] ([place]) Comment on above: Performed By: #### A 1C, TSH, CBC, GFR, ADIFF, CMP, VIDH, LIPID, ANEU ####[address] [address]#### FOL, B12 ####[address] [address] B12on 02-24-2024 Cobalamin (Vitamin B12) [Mass/Vol] 388 pg/mL Normal 211-911 [facility] ([place]) Comment on above: Performed By: #### A 1C, TSH, CBC, GFR, ADIFF, CMP, VIDH, LIPID, ANEU ####[place] [address]#### FOL, B12 ####[place] [address] CBCon 02-24-2024 Erythrocyte distribution width (RBC) [Ratio] 16.7 % High 11.5-14.5 [facility] ([place]) Comment on above: Performed By: #### A 1C, TSH, CBC, GFR, ADIFF, CMP, VIDH, LIPID, ANEU ####[place] [address]#### FOL, B12 ####[place] [address] Hematocrit (Bld) [Volume fraction] 29.4 % Low 42.0-52.0 [facility] ([place] Comment on above: Performed By: #### A 1C, TSH, CBC, GFR, ADIFF, CMP, VIDH, LIPID, ANEU ####[place] [address]#### FOL, B12 ####[place] [address] Hgb 9.9 G/dL Low 14.0-18.0 [facility] ([place] Comment on above: Performed By: #### A 1C, TSH, CBC, GFR, ADIFF, CMP, VIDH, LIPID, ANEU ####[place] [address]#### FOL, B12 ####[place] [id number] MCH (RBC) [Entitic mass] 30.0 pg Normal 27.0-31.2 [facility] ([place] Comment on above: Performed By: #### A 1C, TSH, CBC, GFR, ADIFF, CMP, VIDH, LIPID, ANEU ####[place] [address]#### FOL, B12 ####[place] [address] MCHC 33.5 G/dL Normal 31.8-35.4 [facility] ([place] Comment on above: Performed By: #### A 1C, TSH, CBC, GFR, ADIFF, CMP, VIDH, LIPID, ANEU ####[place] [address]#### FOL, B12 ####[place] [address] MCV (RBC) [Entitic vol] 89.5 fL Normal 80.0-94.0 [facility] ([place]) Comment on above: Performed By: #### A 1C, TSH, CBC, GFR, ADIFF, CMP, VIDH, LIPID, ANEU ####[place] [address]#### FOL, B12 ####[place] [address] Platelet 140 10 3/mcL Normal 130-400 [facility] ([place]) Comment on above: Performed By: #### A 1C, TSH, CBC, GFR, ADIFF, CMP, VIDH, LIPID, ANEU ####[place] [address]#### FOL, B12 ####[place] [address] Platelet mean volume (Bld) [Entitic vol] 7.6 fL Normal 7.4-10.4 [facility] ([place]) Comment on above: Performed By: #### A 1C, TSH, CBC, GFR, ADIFF, CMP, VIDH, LIPID, ANEU ####[place] [address]#### FOL, B12 ####[place] [address] RBC 3.28 10 6/mcL Low 4.04-6.13 [facility] ([place] Comment on above: Performed By: #### A 1C, TSH, CBC, GFR, ADIFF, CMP, VIDH, LIPID, ANEU ####[place] [address]#### FOL, B12 ####[place] [address] WBC 3.3 10 3/mcL Low 4.6-10.8 [facility] ([place] Comment on above: Performed By: #### A 1C, TSH, CBC, GFR, ADIFF, CMP, VIDH, LIPID, ANEU ####[place] [address]#### BRANDIN, B12 ####[place] [address] CMPon 02-24-2024 Albumin Level 3.6 G/dL Normal 3.4-4.8 [facility] ([place]) Comment on above: Performed By: #### A 1C, TSH, CBC, GFR, ADIFF, CMP, VIDH, LIPID, ANEU ####[place] [address]#### FOL, B12 ####[place] [address] Albumin/Globulin [Mass ratio] 1.1 {ratio} Normal 1.1-2.5 [facility] ([place] Comment on above: Performed By: #### A 1C, TSH, CBC, GFR, ADIFF, CMP, VIDH, LIPID, ANEU ####[place] [address]#### FOL, B12 ####[place] [address] ALP [Catalytic activity/Vol] 63 U/L Normal 40-135 [facility] ([place]) Comment on above: Performed By: #### A 1C, TSH, CBC, GFR, ADIFF, CMP, VIDH, LIPID, ANEU ####[place] [address]#### FOL, B12 ####[address] [address] ALT [Catalytic activity/Vol] 25 U/L Normal 16-63 [facility] ([place]) Comment on above: Performed By: #### A 1C, TSH, CBC, GFR, ADIFF, CMP, VIDH, LIPID, ANEU ####[place] [address]#### FOL, B12 ####[address] [address] AST [Catalytic activity/Vol] 25 U/L Normal 10-40 [facility] ([place]) Comment on above: Performed By: #### A 1C, TSH, CBC, GFR, ADIFF, CMP, VIDH, LIPID, ANEU ####[place] [address]#### FOL, B12 ####[place] [address] Bili Total 0.4 mg/dL Normal 0.2-1.0 [facility] ([place]) Comment on above: Result Comment: Use of this assay is not recommended for patients undergoing treatment with eltrombopag due to the potential for falsely elevated results. Performed By: #### A 1C, TSH, CBC, GFR, ADIFF, CMP, VIDH, LIPID, ANEU ####[place] [address]#### FOL, B12 ####[place] [address] BUN/Creatinine Ratio 23 ratio Normal 7-27 [facility] ([place]) Comment on above: Performed By: #### A 1C, TSH, CBC, GFR, ADIFF, CMP, VIDH, LIPID, ANEU ####[place] [address]#### FOL, B12 ####[place] [address] Calcium [Mass/Vol] 9.1 mg/dL Normal 8.4-10.2 [facility] ([place] Comment on above: Performed By: #### A 1C, TSH, CBC, GFR, ADIFF, CMP, VIDH, LIPID, ANEU ####[place] [address]#### FOL, B12 ####[address] [address] Chloride [Moles/Vol] 101 mmol/L Normal 98-107 [facility] ([place]) Comment on above: Performed By: #### A 1C, TSH, CBC, GFR, ADIFF, CMP, VIDH, LIPID, ANEU ####[place] [address]#### FOL, B12 ####[address] [address] CO2 [Moles/Vol] 28 mmol/L Normal 23-31 [facility] ([place]) Comment on above: Performed By: #### A 1C, TSH, CBC, GFR, ADIFF, CMP, VIDH, LIPID, ANEU ####[place] [address]#### FOL, B12 ####[place] [address] Creatinine [Mass/Vol] 1.45 mg/dL High 0.70-1.30 [facility] ([place]) Comment on above: Performed By: #### A 1C, TSH, CBC, GFR, ADIFF, CMP, VIDH, LIPID, ANEU ####[place] [address]#### FOL, B12 ####[address] [address] Electrolyte Balance 8.0 mEq/L Normal 4.0-15.0 [facility] ([place]) Comment on above: Performed By: #### A 1C, TSH, CBC, GFR, ADIFF, CMP, VIDH, LIPID, ANEU ####[place] [address]#### FOL, B12 ####[place] [address] Globulin 3.3 G/dL Normal [facility] ([place]) Comment on above: Performed By: #### A 1C, TSH, CBC, GFR, ADIFF, CMP, VIDH, LIPID, ANEU ####[address] [address]#### FOL, B12 ####[address] [address] Glucose [Mass/Vol] 145 mg/dL High 83-110 [facility] ([place] Comment on above: Performed By: #### A 1C, TSH, CBC, GFR, ADIFF, CMP, VIDH, LIPID, ANEU ####[address] [address]#### FOL, B12 ####[address] [address] Potassium [Moles/Vol] 4.6 mmol/L Normal 3.5-5.1 [facility] ([place]) Comment on above: Performed By: #### A 1C, TSH, CBC, GFR, ADIFF, CMP, VIDH, LIPID, ANEU ####[address] [address]#### FOL, B12 ####[address] [address] Sodium [Moles/Vol] 137 mmol/L Normal 136-145 [facility] ([place] Comment on above: Performed By: #### A 1C, TSH, CBC, GFR, ADIFF, CMP, VIDH, LIPID, ANEU ####[place] [address]#### FOL, B12 ####[address] [address] Total Protein 6.9 G/dL Normal 6.4-8.2 [facility] ([place]) Comment on above: Performed By: #### A 1C, TSH, CBC, GFR, ADIFF, CMP, VIDH, LIPID, ANEU ####[address] [address]#### FOL, B12 ####[address] [address] Urea nitrogen [Mass/Vol] 33 mg/dL High 7-18 [facility] ([place]) Comment on above: Performed By: #### A 1C, TSH, CBC, GFR, ADIFF, CMP, VIDH, LIPID, ANEU ####[address] [place] [id number]#### FOL, B12 ####[place] [address] FOLon 02-24-2024 Folate 31.39 ng/mL High 5.38-24.00 [facility] ([place]) Comment on above: Performed By: #### A 1C, TSH, CBC, GFR, ADIFF, CMP, VIDH, LIPID, ANEU ####[address] [place] [id number]#### FOL, B12 ####[place] [address] LABORATORYOrdered By: SYSTEM SYSTEM on 02-24-2024 25-hydroxyvitamin D3 [Mass/Vol] 96.0 ng/mL Invalid Interpretation Code AO ADM SS Comment on above: Interpretive Data: I nterpretive Values Based on Total 25(OH) Vitamin D: Deficient <20 ng/mL Insufficient 20 - <30 ng/mL Sufficient 30-100 ng/mL Albumin BCP dye [Mass/Vol] 3.6 G/dL Normal 3.4 - 4.8 G/dL AO ADM SS Albumin/Globulin [Mass ratio] 1.1 {ratio} Normal 1.1 - 2.5 ratio AO ADM SS ALP [Catalytic activity/Vol] 63 U/L Normal 40 - 135 U/L AO ADM SS ALT With P-5'-P [Catalytic activity/Vol] 25 U/L Normal 16 - 63 U/L AO ADM SS AST With P-5'-P [Catalytic activity/Vol] 25 U/L Normal 10 - 40 U/L AO ADM SS Basophil, Absolute 0.0 103/mcL Normal 0.0 - 0.2 10^3/mcL AO Workflow SS Basophils/100 WBC (Bld) 1.0 % Normal 0.0 - 2.5 % AO Workflow SS Bilirubin [Mass/Vol] 0.4 mg/dL Normal 0.2 - 1 .0 mg/dL AO ADM SS Comment on above: Interpretive Data: U se of this assay is not recommended for patients undergoing treatment with eltrombopag due to the potential for falsely elevated results. Calcium [Mass/Vol] 9.1 mg/dL Normal 8.4 - 10. 2 mg/dL AO ADM SS Chloride [Moles/Vol] 101 mmol/L Normal 98 - 10 7 mmol/L AO ADM SS CO2 [Moles/Vol] 28 mmol/L Normal 23 - 31 mmol/L AO ADM SS Cobalamin (Vitamin B12) [Mass/Vol] 388 pg/mL Normal 211 - 911 pg/mL AH ADM SS Creatinine [Mass/Vol] 1.45 mg/dL High 0.70 - 1.30 mg/dL AO ADM SS Electrolyte Balance 8.0 mEq/L Normal 4.0 - 15 .0 mEq/L AO ADM SS Eosinophil, Absolute 0.2 103/mcL Normal 0.0 - 0 .4 10^3/mcL AO Workflow SS Eosinophils/100 WBC (Bld) 7.6 % High 0.0 - 7.0 % AO Workflow SS Erythrocyte distribution width (RBC) [Ratio] 16.7 % High 11.5 - 14.5 % AO Workflow SS Folate [Mass/Vol] 31.39 ng/mL High 5.38 - 24.00 ng/mL ADM SS GFR/1.73 sq M.predicted among blacks MDRD (S/P/Bld) [Vol rate/Area] 56 ml/min/1.73sqm Invalid Interpretation Code AO Chemistry S Comment on above: Interpretive Data: GFR Population mean for , Non- Americans Ages 20-29 = 116 mL/min/1.73 sq.m. Ages 30-39 = 107 mL/min/1.73 sq.m. Ages 40-49 = 99 mL/min/1.73 sq.m. Ages 50-59 = 93 mL/min/1.73 sq.m. Ages 60-69 = 85 mL/min/1.73 sq.m. Ages 70+ = 75 mL/min/1.73 sq.m. Chronic Kidney Disease: Less than 60 mL/min/1.73 square meters End Stage Renal Disease: Less than 15 mL/min/1.73 square meters GFR/1.73 sq M.predicted among non-blacks MDRD (S/P/Bld) [Vol rate/Area] 46 ml/min/1.73sqm Invalid Interpretation Code AO Chemistry S Comment on above: Interpretive Data: GFR Population mean for , Non- Americans Ages 20-29 = 116 mL/min/1.73 sq.m. Ages 30-39 = 107 mL/min/1.73 sq.m. Ages 40-49 = 99 mL/min/1.73 sq.m. Ages 50-59 = 93 mL/min/1.73 sq.m. Ages 60-69 = 85 mL/min/1.73 sq.m. Ages 70+ = 75 mL/min/1.73 sq.m. Chronic Kidney Disease: Less than 60 mL/min/1.73 square meters End Stage Renal Disease: Less than 15 mL/min/1.73 square meters Globulin 3.3 G/dL Invalid Interpretation Code AO ADM SS Glucose [Mass/Vol] 145 mg/dL High 83 - 110 mg/dL AO ADM SS HbA1c (Bld) [Mass fraction] 6.9 % High 4.3 - 6.4 % AO ADM SS Hematocrit (Bld) [Volume fraction] 29.4 % Low 42.0 - 52.0 % AO Workflow SS Hemoglobin (Bld) [Mass/Vol] 9.9 G/dL Low 14.0 - 18.0 G/dL AO Workflow SS Lymphocyte, Absolute 0.4 103/mcL Low 0.8 - 3 .9 10^3/mcL AO Workflow SS Lymphocytes/100 WBC (Bld) 11.4 % Normal 10.0 - 50.0 % AO Workflow SS MCH (RBC) [Entitic mass] 30.0 pg Normal 27.0 - 31.2 pg AO Workflow SS MCHC 33.5 G/dL Normal 31.8 - 35.4 G/dL AO Workflow SS MCV (RBC) [Entitic vol] 89.5 fL Normal 80.0 - 94.0 fL AO Workflow SS Monocyte, Absolute 0.5 103/mcL Normal 0.2 - 1.0 10^3/mcL AO Workflow SS Monocytes/100 WBC (Bld) 15.2 % High 1.7 - 13.0 % AO Workflow SS Neutrophil, Absolute 2.1 103/mcL Low 2.9 - 6 .2 10^3/mcL AO Workflow SS Neutrophils/100 WBC (Bld) 64.8 % Normal 37.0 - 80.0 % AO Workflow SS Platelet mean volume (Bld) [Entitic vol] 7.6 fL Normal 7.4 - 10.4 fL AO Workflow SS Platelets (Bld) [#/Vol] 140 103/mcL Normal 130 - 400 10^3/mcL AO Workflow SS Potassium [Moles/Vol] 4.6 mmol/L Normal 3.5 - 5.1 mmol/L AO ADM SS Protein [Mass/Vol] 6.9 G/dL Normal 6.4 - 8.2 G/dL AO ADM SS RBC (Bld) [#/Vol] 3.28 106/mcL Low 4.04 - 6.1 3 10^6/mcL AO Workflow SS Sodium [Moles/Vol] 137 mmol/L Normal 136 - 145 mmol/L AO ADM SS TSH Qn 1.49 m[IU]/L Normal 0.36 - 3.74 mcIU/mL AO ADM SS Urea nitrogen [Mass/Vol] 33 mg/dL High 7 - 18 mg/dL AO ADM SS Urea nitrogen/Creatinine [Mass ratio] 23 ratio Normal 7 - 27 ratio AO ADM SS WBC (Bld) [#/Vol] 3.3 103/mcL Low 4.6 - 10.8 10^3/mcL AO Workflow SS LABORATORYOrdered By: Tata Barboza on 02-24-2024 Cholesterol [Mass/Vol] 231 mg/dL High 0 - 2 00 mg/dL AO ADM SS Comment on above: Interpretive Data: C holesterol Reference Interval: Less than 200 Desirable 200-239 Borderline high risk 240 and above High risk Cholesterol in HDL [Mass/Vol] 49 mg/dL Normal 40 - 60 mg/dL AO ADM SS Cholesterol in LDL [Mass/Vol] 160 mg/dL High 0 - 130 mg/dL AO ADM SS Triglyceride [Mass/Vol] 109 mg/dL Normal 0 - 150 mg/dL AO ADM SS Comment on above: Interpretive Data: T riglyceride Reference Interval: Less than 150 Normal 150-199 Borderline high risk 200-499 High risk 500 or higher Very high risk LIPIDon 02-24-2024 Cholesterol [Mass/Vol] 231 mg/dL High 0-200 Au [facility] ([place]) Comment on above: Result Comment: Chol esterol Reference Interval:Less than 200 [id number] Borderline high [id number] and above High risk Performed By: #### A 1C, TSH, CBC, GFR, ADIFF, CMP, VIDH, LIPID, ANEU ####[place] [address]#### FOL, B12 ####[address] [address] Cholesterol in HDL [Mass/Vol] 49 mg/dL Normal 40-60 [facility] ([place]) Comment on above: Performed By: #### A 1C, TSH, CBC, GFR, ADIFF, CMP, VIDH, LIPID, ANEU ####[place] [address]#### FOL, B12 ####[place] [address] Cholesterol in LDL [Mass/Vol] 160 mg/dL High 0-130 [facility] ([place]) Comment on above: Performed By: #### A 1C, TSH, CBC, GFR, ADIFF, CMP, VIDH, LIPID, ANEU ####[place] [address]#### FOL, B12 ####[address] [address] Triglyceride [Mass/Vol] 109 mg/dL Normal 0-150 [facility] ([place]) Comment on above: Result Comment: Trig lyceride Reference Interval:Less than 150 [id number] Borderline high [id number] High [id number] or higher Very high risk Performed By: #### A 1C, TSH, CBC, GFR, ADIFF, CMP, VIDH, LIPID, ANEU ####[place] [address]#### FOL, B12 ####[address] [address] TSHon 02-24-2024 TSH Qn 1.49 m[IU]/L Normal 0.36-3.74 [facility] ([place]) Comment on above: Performed By: #### A 1C, TSH, CBC, GFR, ADIFF, CMP, VIDH, LIPID, ANEU ####[place] [address]#### FOL, B12 ####[place] [address] [address] [place] [address] VIDHon 02-24-2024 Vit. D 25-Hydroxy 96.0 ng/mL Normal [facility] ([place]) Comment on above: Result Comment: Inte rpretive Values Based on Total 25(OH) Vitamin D:Deficient <20 ng/mLInsufficient 20 - <30 ng/mLSufficient 30-100 ng/mL Performed By: #### A 1C, TSH, CBC, GFR, ADIFF, CMP, VIDH, LIPID, ANEU ####[address] [place], [place] [address]#### BRANDIN, B12 ####[place] [address] .Auto Diffon 02-13-2024 Basophil, Absolute 0.0 10 3/mcL Normal 0.0-0.2 [facility] ([place]) Comment on above: Performed By: #### G FR, CMP, CBC, ADIFF, ANEU ####[address] [place], [place] [address] Basophils/100 WBC (Bld) 1.4 % Normal 0.0-2.5 [facility] ([place]) Comment on above: Performed By: #### G FR, CMP, CBC, ADIFF, ANEU ####[address] [place], [place] [address] Eosinophil, Absolute 0.3 10 3/mcL Normal 0.0-0.4 [facility] ([place]) Comment on above: Performed By: #### G FR, CMP, CBC, ADIFF, ANEU ####[address] [place], [place] [address] Eosinophils/100 WBC (Bld) 9.1 % High 0.0-7.0 [facility] ([place]) Comment on above: Performed By: #### G FR, CMP, CBC, ADIFF, ANEU ####[address] [place], [place] [address] Lymphocyte, Absolute 0.4 10 3/mcL Low 0.8-3.9 [facility] ([place]) Comment on above: Performed By: #### G FR, CMP, CBC, ADIFF, ANEU ####[address] [place], [place] [address] Lymphocytes/100 WBC (Bld) 10.9 % Normal 10.0-50.0 [facility] ([place] Comment on above: Performed By: #### G FR, CMP, CBC, ADIFF, ANEU ####[address] [place], [place] [address] Monocyte, Absolute 0.5 10 3/mcL Normal 0.2-1.0 [facility] ([place]) Comment on above: Performed By: #### G FR, CMP, CBC, ADIFF, ANEU ####[address] [place], [place] [address] Monocytes/100 WBC (Bld) 14.1 % High 1.7-13.0 [facility] ([place]) Comment on above: Performed By: #### G FR, CMP, CBC, ADIFF, ANEU ####[address] [place], [place] [address] Neutrophils/100 WBC (Bld) 64.5 % Normal 37.0-80.0 [facility] ([place]) Comment on above: Performed By: #### G FR, CMP, CBC, ADIFF, ANEU ####[address] [place], [place] [address] .GFRon 02-13-2024 GFR 65 ml/min/1.73sqm Normal [facility] ([place]) Comment on above: Result Comment: GFR Population mean for , Non- Americans Ages 20-29 = 116 mL/min/1.73 sq.m. Ages 30-39 = 107 mL/min/1.73 sq.m. Ages 40-49 = 99 mL/min/1.73 sq.m. Ages 50-59 = 93 mL/min/1.73 sq.m. Ages 60-69 = 85 mL/min/1.73 sq.m. Ages 70+ = 75 mL/min/1.73 sq.m.Chronic Kidney Disease: Less than 60 mL/min/1.73 square metersEnd Stage Renal Disease: Less than 15 mL/min/1.73 square meters Performed By: #### G FR, CMP, CBC, ADIFF, ANEU ####[address] [place], [place] [address] GFR Non- 54 ml/min/1.73sqm Normal [facility] ([place]) Comment on above: Result Comment: GFR Population mean for , Non- Americans Ages 20-29 = 116 mL/min/1.73 sq.m. Ages 30-39 = 107 mL/min/1.73 sq.m. Ages 40-49 = 99 mL/min/1.73 sq.m. Ages 50-59 = 93 mL/min/1.73 sq.m. Ages 60-69 = 85 mL/min/1.73 sq.m. Ages 70+ = 75 mL/min/1.73 sq.m.Chronic Kidney Disease: Less than 60 mL/min/1.73 square metersEnd Stage Renal Disease: Less than 15 mL/min/1.73 square meters Performed By: #### G FR, CMP, CBC, ADIFF, ANEU ####[address] [place], [place] [address] .NEUABSon 02-13-2024 Neutrophil, Absolute 2.1 10 3/mcL Low 2.9-6.2 [facility] ([place]) Comment on above: Performed By: #### G FR, CMP, CBC, ADIFF, ANEU ####[address] [place], [place] [address] CBCon 02-13-2024 Erythrocyte distribution width (RBC) [Ratio] 16.7 % High 11.5-14.5 [facility] ([place]) Comment on above: Performed By: #### G FR, CMP, CBC, ADIFF, ANEU ####[address] [place], [place] [address] Hematocrit (Bld) [Volume fraction] 32.1 % Low 42.0-52.0 [facility] ([place] Comment on above: Performed By: #### G FR, CMP, CBC, ADIFF, ANEU ####[address] [place], [place] [address] Hgb 10.4 G/dL Low 14.0-18.0 [facility] ([place]) Comment on above: Performed By: #### G FR, CMP, CBC, ADIFF, ANEU ####[address] [place], [place] [address] MCH (RBC) [Entitic mass] 29.4 pg Normal 27.0-31.2 [facility] ([place]) Comment on above: Performed By: #### G FR, CMP, CBC, ADIFF, ANEU ####[address] [place], [place] [address] MCHC 32.3 G/dL Normal 31.8-35.4 [facility] ([place]) Comment on above: Performed By: #### G FR, CMP, CBC, ADIFF, ANEU ####[address] [place], [place] [address] MCV (RBC) [Entitic vol] 91.0 fL Normal 80.0-94.0 [facility] ([place] Comment on above: Performed By: #### G FR, CMP, CBC, ADIFF, ANEU ####[address] [place], [place] [address] Platelet 164 10 3/mcL Normal 130-400 [facility] ([place]) Comment on above: Performed By: #### G FR, CMP, CBC, ADIFF, ANEU ####[address] [place], [place] [address] Platelet mean volume (Bld) [Entitic vol] 7.5 fL Normal 7.4-10.4 [facility] ([place]) Comment on above: Performed By: #### G FR, CMP, CBC, ADIFF, ANEU ####[address] [place], [place] [address] RBC 3.53 10 6/mcL Low 4.04-6.13 [facility] ([place]) Comment on above: Performed By: #### G FR, CMP, CBC, ADIFF, ANEU ####[address] [place], [place] [address] WBC 3.3 10 3/mcL Low 4.6-10.8 [facility] ([place]) Comment on above: Performed By: #### G FR, CMP, CBC, ADIFF, ANEU ####[address] [place], [place] [address] CMPon 02-13-2024 Albumin Level 3.5 G/dL Normal 3.4-4.8 [facility] ([place] Comment on above: Performed By: #### G FR, CMP, CBC, ADIFF, ANEU ####[address] [place], [place] [address] Albumin/Globulin [Mass ratio] 1.0 {ratio} Low 1.1-2.5 [facility] ([place]) Comment on above: Performed By: #### G FR, CMP, CBC, ADIFF, ANEU ####[address] [place], [place] [address] ALP [Catalytic activity/Vol] 77 U/L Normal 40-135 [facility] ([place]) Comment on above: Performed By: #### G FR, CMP, CBC, ADIFF, ANEU ####[address] [place], [place] [address] ALT [Catalytic activity/Vol] 30 U/L Normal 16-63 [facility] ([place]) Comment on above: Performed By: #### G FR, CMP, CBC, ADIFF, ANEU ####[address] [place], [place] [address] AST [Catalytic activity/Vol] 25 U/L Normal 10-40 [facility] ([place]) Comment on above: Performed By: #### G FR, CMP, CBC, ADIFF, ANEU ####[address] [place], [place] [address] Bili Total 0.2 mg/dL Normal 0.2-1.0 [facility] ([place]) Comment on above: Result Comment: Use of this assay is not recommended for patients undergoing treatment with eltrombopag due to the potential for falsely elevated results. Performed By: #### G FR, CMP, CBC, ADIFF, ANEU ####[address] [place], [place] [address] BUN/Creatinine Ratio 25 ratio Normal 7-27 [facility] ([place]) Comment on above: Performed By: #### G FR, CMP, CBC, ADIFF, ANEU ####[address] [place], [place] [address] Calcium [Mass/Vol] 8.7 mg/dL Normal 8.4-10.2 [facility] ([place]) Comment on above: Performed By: #### G FR, CMP, CBC, ADIFF, ANEU ####[address] [place], [place] [address] Chloride [Moles/Vol] 103 mmol/L Normal 98-107 [facility] ([place]) Comment on above: Performed By: #### G FR, CMP, CBC, ADIFF, ANEU ####[address] [place], [place] [address] CO2 [Moles/Vol] 27 mmol/L Normal 23-31 [facility] ([place]) Comment on above: Performed By: #### G FR, CMP, CBC, ADIFF, ANEU ####[address] [place], [place] [address] Creatinine [Mass/Vol] 1.27 mg/dL Normal 0.70-1.30 [facility] ([place]) Comment on above: Performed By: #### G FR, CMP, CBC, ADIFF, ANEU ####[address] [place], [place] [address] Electrolyte Balance 9.0 mEq/L Normal 4.0-15.0 [facility] ([place]) Comment on above: Performed By: #### G FR, CMP, CBC, ADIFF, ANEU ####[address] [place], [place] [address] Globulin 3.5 G/dL Normal [facility] ([place]) Comment on above: Performed By: #### G FR, CMP, CBC, ADIFF, ANEU ####[address] [place], [place] [address] Glucose [Mass/Vol] 194 mg/dL High 83-110 [facility] ([place]) Comment on above: Performed By: #### G FR, CMP, CBC, ADIFF, ANEU ####[address] [place], [place] [address] Potassium [Moles/Vol] 4.0 mmol/L Normal 3.5-5.1 [facility] ([place]) Comment on above: Performed By: #### G FR, CMP, CBC, ADIFF, ANEU ####[address] [place], [place] [address] Sodium [Moles/Vol] 139 mmol/L Normal 136-145 [facility] ([place]) Comment on above: Performed By: #### Carrie FR, CMP, CBC, ADIFF, ANEU ####[address] [place], [place] [address] Total Protein 7.0 G/dL Normal 6.4-8.2 [facility] ([place]) Comment on above: Performed By: #### Carrie FR, CMP, CBC, ADIFF, ANEU ####[address] [place], [place] [address] Urea nitrogen [Mass/Vol] 32 mg/dL High 7-18 [facility] ([place]) Comment on above: Performed By: #### Carrie FR, CMP, CBC, ADIFF, ANEU ####[address] [place], [place] [address] LABORATORYOrdered By: SYSTEM SYSTEM on 02-13-2024 Albumin BCP dye [Mass/Vol] 3.5 G/dL Normal 3.4 - 4.8 G/dL AO ADM SS Albumin/Globulin [Mass ratio] 1.0 {ratio} Low 1.1 - 2.5 ratio AO ADM SS ALP [Catalytic activity/Vol] 77 U/L Normal 40 - 135 U/L AO ADM SS ALT With P-5'-P [Catalytic activity/Vol] 30 U/L Normal 16 - 63 U/L AO ADM SS AST With P-5'-P [Catalytic activity/Vol] 25 U/L Normal 10 - 40 U/L AO ADM SS Basophil, Absolute 0.0 103/mcL Normal 0.0 - 0.2 10^3/mcL AO Workflow SS Basophils/100 WBC (Bld) 1.4 % Normal 0.0 - 2.5 % AO Workflow SS Bilirubin [Mass/Vol] 0.2 mg/dL Normal 0.2 - 1 .0 mg/dL AO ADM SS Comment on above: Interpretive Data: U se of this assay is not recommended for patients undergoing treatment with eltrombopag due to the potential for falsely elevated results. Calcium [Mass/Vol] 8.7 mg/dL Normal 8.4 - 10. 2 mg/dL AO ADM SS Chloride [Moles/Vol] 103 mmol/L Normal 98 - 10 7 mmol/L AO ADM SS CO2 [Moles/Vol] 27 mmol/L Normal 23 - 31 mmol/L AO ADM SS Creatinine [Mass/Vol] 1.27 mg/dL Normal 0.70 - 1.30 mg/dL AO ADM SS Electrolyte Balance 9.0 mEq/L Normal 4.0 - 15 .0 mEq/L AO ADM SS Eosinophil, Absolute 0.3 103/mcL Normal 0.0 - 0 .4 10^3/mcL AO Workflow SS Eosinophils/100 WBC (Bld) 9.1 % High 0.0 - 7.0 % AO Workflow SS Erythrocyte distribution width (RBC) [Ratio] 16.7 % High 11.5 - 14.5 % AO Workflow SS GFR/1.73 sq M.predicted among blacks MDRD (S/P/Bld) [Vol rate/Area] 65 ml/min/1.73sqm Invalid Interpretation Code AO Chemistry S Comment on above: Interpretive Data: GFR Population mean for , Non- Americans Ages 20-29 = 116 mL/min/1.73 sq.m. Ages 30-39 = 107 mL/min/1.73 sq.m. Ages 40-49 = 99 mL/min/1.73 sq.m. Ages 50-59 = 93 mL/min/1.73 sq.m. Ages 60-69 = 85 mL/min/1.73 sq.m. Ages 70+ = 75 mL/min/1.73 sq.m. Chronic Kidney Disease: Less than 60 mL/min/1.73 square meters End Stage Renal Disease: Less than 15 mL/min/1.73 square meters GFR/1.73 sq M.predicted among non-blacks MDRD (S/P/Bld) [Vol rate/Area] 54 ml/min/1.73sqm Invalid Interpretation Code AO Chemistry S Comment on above: Interpretive Data: GFR Population mean for , Non- Americans Ages 20-29 = 116 mL/min/1.73 sq.m. Ages 30-39 = 107 mL/min/1.73 sq.m. Ages 40-49 = 99 mL/min/1.73 sq.m. Ages 50-59 = 93 mL/min/1.73 sq.m. Ages 60-69 = 85 mL/min/1.73 sq.m. Ages 70+ = 75 mL/min/1.73 sq.m. Chronic Kidney Disease: Less than 60 mL/min/1.73 square meters End Stage Renal Disease: Less than 15 mL/min/1.73 square meters Globulin 3.5 G/dL Invalid Interpretation Code AO ADM SS Glucose [Mass/Vol] 194 mg/dL High 83 - 110 mg/dL AO ADM SS Hematocrit (Bld) [Volume fraction] 32.1 % Low 42.0 - 52.0 % AO Workflow SS Hemoglobin (Bld) [Mass/Vol] 10.4 G/dL Low 14.0 - 18.0 G/dL AO Workflow SS Lymphocyte, Absolute 0.4 103/mcL Low 0.8 - 3 .9 10^3/mcL AO Workflow SS Lymphocytes/100 WBC (Bld) 10.9 % Normal 10.0 - 50.0 % AO Workflow SS MCH (RBC) [Entitic mass] 29.4 pg Normal 27.0 - 31.2 pg AO Workflow SS MCHC 32.3 G/dL Normal 31.8 - 35.4 G/dL AO Workflow SS MCV (RBC) [Entitic vol] 91.0 fL Normal 80.0 - 94.0 fL AO Workflow SS Monocyte, Absolute 0.5 103/mcL Normal 0.2 - 1.0 10^3/mcL AO Workflow SS Monocytes/100 WBC (Bld) 14.1 % High 1.7 - 13.0 % AO Workflow SS Neutrophil, Absolute 2.1 103/mcL Low 2.9 - 6 .2 10^3/mcL AO Workflow SS Neutrophils/100 WBC (Bld) 64.5 % Normal 37.0 - 80.0 % AO Workflow SS Platelet mean volume (Bld) [Entitic vol] 7.5 fL Normal 7.4 - 10.4 fL AO Workflow SS Platelets (Bld) [#/Vol] 164 103/mcL Normal 130 - 400 10^3/mcL AO Workflow SS Potassium [Moles/Vol] 4.0 mmol/L Normal 3.5 - 5.1 mmol/L AO ADM SS Protein [Mass/Vol] 7.0 G/dL Normal 6.4 - 8.2 G/dL AO ADM SS RBC (Bld) [#/Vol] 3.53 106/mcL Low 4.04 - 6.1 3 10^6/mcL AO Workflow SS Sodium [Moles/Vol] 139 mmol/L Normal 136 - 145 mmol/L AO ADM SS Urea nitrogen [Mass/Vol] 32 mg/dL High 7 - 18 mg/dL AO ADM SS Urea nitrogen/Creatinine [Mass ratio] 25 ratio Normal 7 - 27 ratio AO ADM SS WBC (Bld) [#/Vol] 3.3 103/mcL Low 4.6 - 10.8 10^3/mcL AO Workflow SS CNOVon 02-11-2024 CNOV Office Visit ([facility] ) -------- JAYLEN GALAVIZ ([id number]) 1935 M Date Time Provider Department 02/11/24 2:05 PM BARRETT HUFF [facility] During your visit today, we recorded the following information about you: Temperature Pulse Respiration Blood pressure 97 degrees 67/minute 16/minute 119/61 Barrett Huff PA-C 02/11/2024 2:30 PM Signed Plan -frequent hand washing -gentle skin care, no scrubbing. Keep area clean and dry -antibiotic medication sent to your pharmacy. Doxycycline twice daily for 7 days. - drink a full glass of water with each dose - do not take with milk/dairy products - avoid sun exposure - it raises your risk for burn - if you take calcium or iron supplements, do not take them while you take this, or take them at a different time of day - stay upright for 30 minutes after taking this medicine -Bactroban applied to the open wounds twice daily -call your primary care doctor tomorrow for a follow up appointment in 3-5 days, sooner if not improving - go to ER for worsening or severe symptoms such as fever, chills, worsening pain, spreading redness or red streaks appearing, foul smelling or pus like drainage, numbness or weakness, increasing swelling, especially within the first 24-48 hours on antibiotics CELLULITIS PATIENT INSTRUCTIONS: Cellulitis is an infection of your skin and the layers of tissue below your skin. It can affect any part of the body. It most often affects the face, arms, or legs. Germs can enter your body from a cut, scratch, or bite. The infected part gets red, warm, painful, swollen, and irritated. Cellulitis can be treated with drugs, like antibiotics. Some people need surgery to drain the infection. What care is needed at home? Ask your doctor what you need to do when you go home. Make sure you ask questions if you do not understand what the doctor says. This way you will know what you need to do. If you have drugs to take at home, get the prescription filled right away, and take them exactly as ordered. Do not use extra antibiotic creams or ointments on the area. Use pillows to raise the infected arm or leg above the level of your heart. This will lower pain and swelling. Keep the area clean and dry. Do not squeeze, scratch, or rub it. Use clean, warm compresses to help ease pain and swelling. Wet a clean wash cloth or small towel with hot water. Put it on the area for 5 to 10 minutes. Wash your hands before and after touching the area. Wash the area with soap and water. Pat dry. Do not rub. Put clean dressings or bandages on the area as ordered by the doctor. Ask your doctor when it is safe to take a bath or shower. You can draw a line with a waterproof marker around the red area to see if it is getting bigger or smaller. Call the doctor if the area is getting much bigger. Also call if you have more pain or it feels more tender. If you have diabetes, carefully check your blood sugars and adjust your drugs or insulin as directed by your doctor. What follow-up care is needed? Your doctor may ask you to make visits to the office to check on your progress. Be sure to keep these visits. If surgery was needed to drain the infection, your doctor may leave the area open. Keep this area clean. Protect it from dirt and dust in the air. If you have stitches or mary, you will need to have them taken out. Your doctor will often want to do this in 1 to 2 weeks. What drugs may be needed? The doctor may order drugs to: Treat the infection. Finish all of the antibiotics, even if the infection appears to have gone away. Help with pain and swelling What problems could happen? Infection in the blood. This is sepsis. Bone infection Inflammation of the lymph vessels Inflammation of the heart Meningitis Shock Tissue or gangrene What can be done to prevent this health problem? Wear proper clothing and shoes to cover your body and prevent cuts and bruises. Keep your nails trimmed. This will help you avoid harming the skin around them. Keep skin moisturized. Use lotion that does not have fragrance added to avoid dry, cracked skin. Treat athlete's foot as directed by your doctor. If you have a chronic skin condition, talk with your doctor about how to keep it under the best control. If you have chronic swelling (edema) of an arm or leg, talk with your doctor about how to lower the swelling. Your doctor may want you to wear support stockings. Practice good hygiene. Wash your hands often with soap and water. If you often have fungal infections, ask your doctor if you should be using an antifungal drug to prevent the cellulitis from occurring again. If you scratch or cut your skin, wash the area carefully with soap and water. Lose weight since being overweight is linked to cellulitis. When do I need to call the doctor? Signs of infection (more content not included)... Normal [facility] NM MYOCARDIAL SPECT STRESS/R ESTon 11-22-2023 NM MYOCARDIAL SPECT STRESS/REST Normal [facility] ([place]) XR ABDOMEN APon 11-18-2023 XR ABDOMEN AP Normal [facility] ([place]) .Auto Diffon 11-17-2023 Basophil, Absolute 0.0 10 3/mcL Normal 0.0-0.2 [facility] ([place]) Comment on above: Performed By: #### G FR, CMP, ANEU, CBC, ADIFF ####[address] [place], [place] [address] Basophils/100 WBC (Bld) 0.9 % Normal 0.0-2.5 [facility] ([place]) Comment on above: Performed By: #### G FR, CMP, ANEU, CBC, ADIFF ####[address] [place], [place] [address] Eosinophil, Absolute 0.2 10 3/mcL Normal 0.0-0.4 [facility] ([place]) Comment on above: Performed By: #### G FR, CMP, ANEU, CBC, ADIFF ####[address] [place], [place] [address] Eosinophils/100 WBC (Bld) 7.2 % High 0.0-7.0 [facility] ([place]) Comment on above: Performed By: #### G FR, CMP, ANEU, CBC, ADIFF ####[address] [place], [place] [address] Lymphocyte, Absolute 0.4 10 3/mcL Low 0.8-3.9 [facility] ([place]) Comment on above: Performed By: #### G FR, CMP, ANEU, CBC, ADIFF ####[address] [place], [place] [address] Lymphocytes/100 WBC (Bld) 12.7 % Normal 10.0-50.0 [facility] ([place]) Comment on above: Performed By: #### G FR, CMP, ANEU, CBC, ADIFF ####[address] [place], [place] [address] Monocyte, Absolute 0.3 10 3/mcL Normal 0.2-1.0 [facility] ([place]) Comment on above: Performed By: #### G FR, CMP, ANEU, CBC, ADIFF ####[address] [place], [place] [address] Monocytes/100 WBC (Bld) 10.1 % Normal 1.7-13.0 [facility] ([place]) Comment on above: Performed By: #### G FR, CMP, ANEU, CBC, ADIFF ####[address] [place], [place] [address] Neutrophils/100 WBC (Bld) 69.1 % Normal 37.0-80.0 [facility] ([place]) Comment on above: Performed By: #### G FR, CMP, ANEU, CBC, ADIFF ####[address] [place], [place] [address] .GFRon 11-17-2023 GFR Non- 51 ml/min/1.73sqm Normal [facility] ([place]) Comment on above: Result Comment: GFR Population mean for , Non- Americans Ages 20-29 = 116 mL/min/1.73 sq.m. Ages 30-39 = 107 mL/min/1.73 sq.m. Ages 40-49 = 99 mL/min/1.73 sq.m. Ages 50-59 = 93 mL/min/1.73 sq.m. Ages 60-69 = 85 mL/min/1.73 sq.m. Ages 70+ = 75 mL/min/1.73 sq.m.Chronic Kidney Disease: Less than 60 mL/min/1.73 square metersEnd Stage Renal Disease: Less than 15 mL/min/1.73 square meters Performed By: #### G FR, CMP, ANEU, CBC, ADIFF ####[address] [place], [place] [address] GFR 62 ml/min/1.73sqm Normal [facility] ([place]) Comment on above: Result Comment: GFR Population mean for , Non- Americans Ages 20-29 = 116 mL/min/1.73 sq.m. Ages 30-39 = 107 mL/min/1.73 sq.m. Ages 40-49 = 99 mL/min/1.73 sq.m. Ages 50-59 = 93 mL/min/1.73 sq.m. Ages 60-69 = 85 mL/min/1.73 sq.m. Ages 70+ = 75 mL/min/1.73 sq.m.Chronic Kidney Disease: Less than 60 mL/min/1.73 square metersEnd Stage Renal Disease: Less than 15 mL/min/1.73 square meters Performed By: #### G FR, CMP, ANEU, CBC, ADIFF ####[address] [place], [place] [address] .NEUABSon 11-17-2023 Neutrophil, Absolute 2.3 10 3/mcL Low 2.9-6.2 [facility] ([place]) Comment on above: Performed By: #### G FR, CMP, ANEU, CBC, ADIFF ####[address] [place], [place] [address] CBCon 11-17-2023 Erythrocyte distribution width (RBC) [Ratio] 16.8 % High 11.5-14.5 [facility] ([place]) Comment on above: Performed By: #### G FR, CMP, ANEU, CBC, ADIFF ####[address] [place], [place] [address] Hematocrit (Bld) [Volume fraction] 28.3 % Low 42.0-52.0 [facility] ([place]) Comment on above: Performed By: #### G FR, CMP, ANEU, CBC, ADIFF ####[address] [place], [place] [address] Hgb 9.5 G/dL Low 14.0-18.0 [facility] ([place]) Comment on above: Performed By: #### G FR, CMP, ANEU, CBC, ADIFF ####[address] [place], [place] [address] MCH (RBC) [Entitic mass] 30.5 pg Normal 27.0-31.2 [facility] ([place]) Comment on above: Performed By: #### G FR, CMP, ANEU, CBC, ADIFF ####[address] [place], [place] [address] MCHC 33.5 G/dL Normal 31.8-35.4 [facility] ([place]) Comment on above: Performed By: #### G FR, CMP, ANEU, CBC, ADIFF ####[address] [place], [place] [address] MCV (RBC) [Entitic vol] 90.9 fL Normal 80.0-94.0 [facility] ([place]) Comment on above: Performed By: #### G FR, CMP, ANEU, CBC, ADIFF ####[address] [place], [place] [address] Platelet 162 10 3/mcL Normal 130-400 [facility] ([place]) Comment on above: Performed By: #### G FR, CMP, ANEU, CBC, ADIFF ####[address] [place], [place] [address] Platelet mean volume (Bld) [Entitic vol] 7.7 fL Normal 7.4-10.4 [facility] ([place]) Comment on above: Performed By: #### G FR, CMP, ANEU, CBC, ADIFF ####[address] [place], [place] [address] RBC 3.12 10 6/mcL Low 4.04-6.13 [facility] ([place]) Comment on above: Performed By: #### G FR, CMP, ANEU, CBC, ADIFF ####[address] [place], [place] [address] WBC 3.4 10 3/mcL Low 4.6-10.8 [facility] ([place]) Comment on above: Performed By: #### G FR, CMP, ANEU, CBC, ADIFF ####[address] [place], [place] [address] CMPon 11-17-2023 Albumin Level 3.5 G/dL Normal 3.4-4.8 [facility] ([place]) Comment on above: Performed By: #### G FR, CMP, ANEU, CBC, ADIFF ####[address] [place], [place] [address] Albumin/Globulin [Mass ratio] 1.1 {ratio} Normal 1.1-2.5 [facility] ([place]) Comment on above: Performed By: #### G FR, CMP, ANEU, CBC, ADIFF ####[address] [place], [place] [address] ALP [Catalytic activity/Vol] 78 U/L Normal 40-135 [facility] ([place]) Comment on above: Performed By: #### G FR, CMP, ANEU, CBC, ADIFF ####[address] [place], [place] [address] ALT [Catalytic activity/Vol] 30 U/L Normal 16-63 [facility] ([place]) Comment on above: Performed By: #### G FR, CMP, ANEU, CBC, ADIFF ####[address] [place], [place] [address] AST [Catalytic activity/Vol] 33 U/L Normal 10-40 [facility] ([place]) Comment on above: Performed By: #### G FR, CMP, ANEU, CBC, ADIFF ####[address] [place], [place] [address] Bili Total 0.3 mg/dL Normal 0.2-1.0 [facility] ([place]) Comment on above: Result Comment: Use of this assay is not recommended for patients undergoing treatment with eltrombopag due to the potential for falsely elevated results. Performed By: #### G FR, CMP, ANEU, CBC, ADIFF ####[address] [place], [place] [address] BUN/Creatinine Ratio 24 ratio Normal 7-27 [facility] ([place]) Comment on above: Performed By: #### G FR, CMP, ANEU, CBC, ADIFF ####[address] [place], [place] [address] Calcium [Mass/Vol] 9.3 mg/dL Normal 8.4-10.2 [facility] ([place]) Comment on above: Performed By: #### Carrie FR, CMP, ANEU, CBC, ADIFF ####[address] [place], [place] [address] Chloride [Moles/Vol] 104 mmol/L Normal 98-107 [facility] ([place]) Comment on above: Performed By: #### G FR, CMP, ANEU, CBC, ADIFF ####[address] [place], [place] [address] CO2 [Moles/Vol] 25 mmol/L Normal 23-31 [facility] ([place]) Comment on above: Performed By: #### G FR, CMP, ANEU, CBC, ADIFF ####[address] [place], [place] [address] Creatinine [Mass/Vol] 1.33 mg/dL High 0.70-1.30 [facility] ([place]) Comment on above: Performed By: #### G FR, CMP, ANEU, CBC, ADIFF ####[address] [place], [place] [address] Electrolyte Balance 9.0 mEq/L Normal 4.0-15.0 [facility] ([place]) Comment on above: Performed By: #### G FR, CMP, ANEU, CBC, ADIFF ####[address] [place], [place] [address] Globulin 3.2 G/dL Normal [facility] ([place]) Comment on above: Performed By: #### G FR, CMP, ANEU, CBC, ADIFF ####[address] [place], [place] [address] Glucose [Mass/Vol] 138 mg/dL High 83-110 [facility] ([place]) Comment on above: Performed By: #### G FR, CMP, ANEU, CBC, ADIFF ####[address] [place], [place] [address] Potassium [Moles/Vol] 4.4 mmol/L Normal 3.5-5.1 [facility] ([place]) Comment on above: Performed By: #### G FR, CMP, ANEU, CBC, ADIFF ####[address] [place], [place] [address] Sodium [Moles/Vol] 138 mmol/L Normal 136-145 [facility] ([place]) Comment on above: Performed By: #### G FR, CMP, ANEU, CBC, ADIFF ####[address] [place], [place] [address] Total Protein 6.7 G/dL Normal 6.4-8.2 [facility] ([place]) Comment on above: Performed By: #### G FR, CMP, ANEU, CBC, ADIFF ####[address] [place], [place] [address] Urea nitrogen [Mass/Vol] 32 mg/dL High 7-18 [facility] ([place]) Comment on above: Performed By: #### G FR, CMP, ANEU, CBC, ADIFF ####[address] [place], [place] [address] LABORATORYOrdered By: SYSTEM SYSTEM on 11-17-2023 Albumin BCP dye [Mass/Vol] 3.5 G/dL Normal 3.4 - 4.8 G/dL AO ADM SS Albumin/Globulin [Mass ratio] 1.1 {ratio} Normal 1.1 - 2.5 ratio AO ADM SS ALP [Catalytic activity/Vol] 78 U/L Normal 40 - 135 U/L AO ADM SS ALT With P-5'-P [Catalytic activity/Vol] 30 U/L Normal 16 - 63 U/L AO ADM SS AST With P-5'-P [Catalytic activity/Vol] 33 U/L Normal 10 - 40 U/L AO ADM SS Basophil, Absolute 0.0 103/mcL Normal 0.0 - 0.2 10^3/mcL AO Workflow SS Basophils/100 WBC (Bld) 0.9 % Normal 0.0 - 2.5 % AO Workflow SS Bilirubin [Mass/Vol] 0.3 mg/dL Normal 0.2 - 1 .0 mg/dL AO ADM SS Comment on above: Interpretive Data: U se of this assay is not recommended for patients undergoing treatment with eltrombopag due to the potential for falsely elevated results. Calcium [Mass/Vol] 9.3 mg/dL Normal 8.4 - 10. 2 mg/dL AO ADM SS Chloride [Moles/Vol] 104 mmol/L Normal 98 - 10 7 mmol/L AO ADM SS CO2 [Moles/Vol] 25 mmol/L Normal 23 - 31 mmol/L AO ADM SS Creatinine [Mass/Vol] 1.33 mg/dL High 0.70 - 1.30 mg/dL AO ADM SS Electrolyte Balance 9.0 mEq/L Normal 4.0 - 15 .0 mEq/L AO ADM SS Eosinophil, Absolute 0.2 103/mcL Normal 0.0 - 0 .4 10^3/mcL AO Workflow SS Eosinophils/100 WBC (Bld) 7.2 % High 0.0 - 7.0 % AO Workflow SS Erythrocyte distribution width (RBC) [Ratio] 16.8 % High 11.5 - 14.5 % AO Workflow SS GFR/1.73 sq M.predicted among blacks MDRD (S/P/Bld) [Vol rate/Area] 62 ml/min/1.73sqm Invalid Interpretation Code AO Chemistry S Comment on above: Interpretive Data: GFR Population mean for , Non- Americans Ages 20-29 = 116 mL/min/1.73 sq.m. Ages 30-39 = 107 mL/min/1.73 sq.m. Ages 40-49 = 99 mL/min/1.73 sq.m. Ages 50-59 = 93 mL/min/1.73 sq.m. Ages 60-69 = 85 mL/min/1.73 sq.m. Ages 70+ = 75 mL/min/1.73 sq.m. Chronic Kidney Disease: Less than 60 mL/min/1.73 square meters End Stage Renal Disease: Less than 15 mL/min/1.73 square meters GFR/1.73 sq M.predicted among non-blacks MDRD (S/P/Bld) [Vol rate/Area] 51 ml/min/1.73sqm Invalid Interpretation Code AO Chemistry S Comment on above: Interpretive Data: GFR Population mean for , Non- Americans Ages 20-29 = 116 mL/min/1.73 sq.m. Ages 30-39 = 107 mL/min/1.73 sq.m. Ages 40-49 = 99 mL/min/1.73 sq.m. Ages 50-59 = 93 mL/min/1.73 sq.m. Ages 60-69 = 85 mL/min/1.73 sq.m. Ages 70+ = 75 mL/min/1.73 sq.m. Chronic Kidney Disease: Less than 60 mL/min/1.73 square meters End Stage Renal Disease: Less than 15 mL/min/1.73 square meters Globulin 3.2 G/dL Invalid Interpretation Code AO ADM SS Glucose [Mass/Vol] 138 mg/dL High 83 - 110 mg/dL AO ADM SS Hematocrit (Bld) [Volume fraction] 28.3 % Low 42.0 - 52.0 % AO Workflow SS Hemoglobin (Bld) [Mass/Vol] 9.5 G/dL Low 14.0 - 18.0 G/dL AO Workflow SS Lymphocyte, Absolute 0.4 103/mcL Low 0.8 - 3 .9 10^3/mcL AO Workflow SS Lymphocytes/100 WBC (Bld) 12.7 % Normal 10.0 - 50.0 % AO Workflow SS MCH (RBC) [Entitic mass] 30.5 pg Normal 27.0 - 31.2 pg AO Workflow SS MCHC 33.5 G/dL Normal 31.8 - 35.4 G/dL AO Workflow SS MCV (RBC) [Entitic vol] 90.9 fL Normal 80.0 - 94.0 fL AO Workflow SS Monocyte, Absolute 0.3 103/mcL Normal 0.2 - 1.0 10^3/mcL AO Workflow SS Monocytes/100 WBC (Bld) 10.1 % Normal 1.7 - 13.0 % AO Workflow SS Neutrophil, Absolute 2.3 103/mcL Low 2.9 - 6 .2 10^3/mcL AO Workflow SS Neutrophils/100 WBC (Bld) 69.1 % Normal 37.0 - 80.0 % AO Workflow SS Platelet mean volume (Bld) [Entitic vol] 7.7 fL Normal 7.4 - 10.4 fL AO Workflow SS Platelets (Bld) [#/Vol] 162 103/mcL Normal 130 - 400 10^3/mcL AO Workflow SS Potassium [Moles/Vol] 4.4 mmol/L Normal 3.5 - 5.1 mmol/L AO ADM SS Protein [Mass/Vol] 6.7 G/dL Normal 6.4 - 8.2 G/dL AO ADM SS RBC (Bld) [#/Vol] 3.12 106/mcL Low 4.04 - 6.1 3 10^6/mcL AO Workflow SS Sodium [Moles/Vol] 138 mmol/L Normal 136 - 145 mmol/L AO ADM SS Urea nitrogen [Mass/Vol] 32 mg/dL High 7 - 18 mg/dL AO ADM SS Urea nitrogen/Creatinine [Mass ratio] 24 ratio Normal 7 - 27 ratio AO ADM SS WBC (Bld) [#/Vol] 3.4 103/mcL Low 4.6 - 10.8 10^3/mcL AO Workflow SS .Auto Diffon 11-03-2023 Basophil, Absolute 0.0 10 3/mcL Normal 0.0-0.3 [facility] ([place]) Comment on above: Performed By: #### C JORDI, ANEU, ADIFF ####[address] [address] Basophils/100 WBC (Bld) 1.1 % Normal 0.0-2.5 [facility] ([place]) Comment on above: Performed By: #### C JORDI, ANEU, ADIFF ####[place] [id number] [place] [address] Eosinophil, Absolute 0.3 10 3/mcL Normal 0.0-0.7 [facility] ([place]) Comment on above: Performed By: #### C LIANG BACON, ADIFF ####[address] [address] Eosinophils/100 WBC (Bld) 8.0 % High 0.0-6.0 [facility] ([place]) Comment on above: Performed By: #### C LIANG BACON, ADIFF ####[address] [address] Lymphocyte, Absolute 0.3 10 3/mcL Low 0.9-4.3 [facility] ([place]) Comment on above: Performed By: #### C LIANG BACON, ADIFF ####[address] [address] Lymphocytes/100 WBC (Bld) 8.1 % Low 20.0-40.0 [facility] ([place]) Comment on above: Performed By: #### C LIANG BACON, ADIFF ####[address] [address] Monocyte, Absolute 0.4 10 3/mcL Normal 0.1-1.4 [facility] ([place]) Comment on above: Performed By: #### C LIANG BACON, ADIFF ####[address] [address] Monocytes/100 WBC (Bld) 13.5 % High 2.0-13.0 [facility] ([place]) Comment on above: Performed By: #### C LIANG BACON, ADIFF ####[address] [address] Neutrophils/100 WBC (Bld) 69.3 % Normal 50.0-75.0 [facility] ([place]) Comment on above: Performed By: #### C JORDI ANEU, ADIFF ####[address] [address] .NEUABSon 11-03-2023 Neutrophil, Absolute 2.2 10 3/mcL Low 2.3-8.1 [facility] ([place]) Comment on above: Performed By: #### C LIANG BACON, ADIFF ####[place] [address] APTTon 11-03-2023 aPTT Coag (Bld) [Time] 30.3 s Normal 25.0-35.0 [facility] ([place]) Comment on above: Result Comment: For Heparin anticoagulation therapy, the recommendedtherapeutic range is: 54-77 seconds (APTT Correlationwith Anti-Xa therapeutic range of 0.3-0.7 units/ml).PLEASE REFERENCE THE PHARMACY PROTOCOL FOR DOSING. Performed By: #### F IB, PRO ####[place] [address] Heparin dose (APTT) Unknown Normal [facility] ([place]) Comment on above: Performed By: #### F EDSMOND, PRO ####[place] [address] CBCon 11-03-2023 Erythrocyte distribution width (RBC) [Ratio] 16.6 % High 11.5-15.5 [facility] ([place]) Comment on above: Performed By: #### C LIANG BACON, ADIFF ####[place] [address] Hematocrit (Bld) [Volume fraction] 30.2 % Low 40.0-52.0 [facility] ([place]) Comment on above: Performed By: #### C LIANG BACON, ADIFF ####[place] [address] Hgb 9.9 G/dL Low 13.0-17.5 [facility] ([place]) Comment on above: Performed By: #### C LIANG BACON, ADIFF ####[place] [address] MCH (RBC) [Entitic mass] 30.4 pg Normal 27.0-33.0 [facility] ([place]) Comment on above: Performed By: #### C LIANG BACON, ADIFF ####[place] [address] MCHC 32.8 G/dL Normal 32.0-36.0 [facility] ([place]) Comment on above: Performed By: #### C LIANG BACON, ADIFF ####[place] [address] [place] [address] MCV (RBC) [Entitic vol] 92.6 fL Normal 81.0-100.0 [facility] ([place]) Comment on above: Performed By: #### C BC, ANEU, ADIFF ####[place] [address] [place] [address] Platelet 168 10 3/mcL Normal 150-450 [facility] ([place]) Comment on above: Performed By: #### C BC, ANEU, ADIFF ####[place] [address] [place] [address] Platelet mean volume (Bld) [Entitic vol] 7.4 fL Normal 6.4-10.5 [facility] ([place]) Comment on above: Performed By: #### C BC, ANEU, ADIFF ####[place] [address] RBC 3.27 10 6/mcL Low 4.50-6.00 [facility] ([place]) Comment on above: Performed By: #### C BC, ANEU, ADIFF ####[place] [address] WBC 3.1 10 3/mcL Low 4.5-10.8 [facility] ([place]) Comment on above: Performed By: #### C BC, ANEU, ADIFF ####[place] [address] FIBon 11-03-2023 Fibrinogen 546 mg/dL Normal 250-560 [facility] ([place]) Comment on above: Performed By: #### F IB, PRO ####[address] [address] LABORATORYOrdered By: Neel Kenny on 11-03-2023 Blood Glucose Testing Reason Routine (11/03/23 3:12 PM) [facility] Work Phone: Glucose [Mass/Vol] 140 mg/dL High 82 - 115 mg/dL [facility] Work Phone: LABORATORYOrdered By: Lavon Clayton on 02-29-2024 Glucose [Mass/Vol] 141 mg/dL High 82 - 115 mg/dL [facility] Work Phone: LABORATORYOrdered By: Beverly Kwan on 11-03-2023 aPTT Coag (Bld) [Time] 30.3 s Normal 25.0 - 35.0 seconds [facility] Comment on above: Interpretive Data: F or Heparin anticoagulation therapy, the recommended therapeutic range is: 54-77 seconds (APTT Correlation with Anti-Xa therapeutic range of 0.3-0.7 units/ml). PLEASE REFERENCE THE PHARMACY PROTOCOL FOR DOSING. Fibrinogen 546 mg/dL Normal 250 - 560 mg/dL [facility] Heparin dose (APTT) Unknown (11/03/23 11:45 AM) Normal Coagulation S PT Coag (PPP) [Time] 11.9 s Normal 9.0 - 1 4.2 seconds [facility] Comment on above: Interpretive Data: E ffective 03/19/08, Protime results may be affected by some antibiotics (i.e. Ciprofloxacin, Azithromycin, Bactrim) which may potentiate the action of oral anticoagulants, with further increases in Protime/INR. PT International Ratio 1.0 ratio Invalid Interpretation Code [facility] Comment on above: Interpretive Data: Darren gu [employer] (CHEST, 1992, 102:[id number]) recommended therapeutic range for oral anticoagulant therapy is: LOW RISK: Prophylaxis of venous thrombosis INR: 2.0-3.0 Treatment of pulmonary embolism 2.0-3.0 Prevention of systemic embolism 2.0-3.0 HIGH RISK: Mechanical prosthetic valves 2.5-3.5 LABORATORYOrdered By: SYSTEM SYSTEM on 11-03-2023 Basophils (Bld) [#/Vol] 0.0 103/mcL Normal 0.0 - 0.3 10^3/mcL Workflow SS Basophils/100 WBC (Bld) 1.1 % Normal 0.0 - 2.5 % Workflow SS Eosinophils (Bld) [#/Vol] 0.3 103/mcL Normal 0.0 - 0.7 10^3/mcL Workflow SS Eosinophils/100 WBC (Bld) 8.0 % High 0.0 - 6.0 % Workflow SS Erythrocyte distribution width (RBC) [Ratio] 16.6 % High 11.5 - 15.5 % AH Workflow SS Hematocrit (Bld) [Volume fraction] 30.2 % Low 40.0 - 52.0 % AH Workflow SS Hemoglobin (Bld) [Mass/Vol] 9.9 G/dL Low 13.0 - 17.5 G/dL AH Workflow SS Lymphocytes (Bld) [#/Vol] 0.3 103/mcL Low 0.9 - 4.3 10^3/mcL AH Workflow SS Lymphocytes/100 WBC (Bld) 8.1 % Low 20.0 - 40.0 % AH Workflow SS MCH (RBC) [Entitic mass] 30.4 pg Normal 27.0 - 33.0 pg AH Workflow SS MCHC 32.8 G/dL Normal 32.0 - 36.0 G/dL AH Workflow SS MCV (RBC) [Entitic vol] 92.6 fL Normal 81.0 - 100.0 fL AH Workflow SS Monocytes (Bld) [#/Vol] 0.4 103/mcL Normal 0.1 - 1.4 10^3/mcL AH Workflow SS Monocytes/100 WBC (Bld) 13.5 % High 2.0 - 13.0 % AH Workflow SS Neutrophils (Bld) [#/Vol] 2.2 103/mcL Low 2.3 - 8.1 10^3/mcL AH Workflow SS Neutrophils/100 WBC (Bld) 69.3 % Normal 50.0 - 75.0 % AH Workflow SS Platelet mean volume (Bld) [Entitic vol] 7.4 fL Normal 6.4 - 10.5 fL AH Workflow SS Platelets (Bld) [#/Vol] 168 103/mcL Normal 150 - 450 10^3/mcL AH Workflow SS RBC (Bld) [#/Vol] 3.27 106/mcL Low 4.50 - 6.0 0 10^6/mcL AH Workflow SS WBC (Bld) [#/Vol] 3.1 103/mcL Low 4.5 - 10.8 10^3/mcL AH Workflow SS PROon 11-03-2023 INR Coag (PPP) [Relative time] 1.0 {INR} Normal [facility] ([place]) Comment on above: Result Comment: [employer] (CHEST, 1992, 102:[id number])recommended therapeutic range for oral anticoagulant therapy is:LOW RISK: Prophylaxis of venous thrombosis INR: 2.0-3.0 Treatment of pulmonary embolism 2.0-3.0 Prevention of systemic embolism 2.0-3.0HIGH RISK: Mechanical prosthetic valves 2.5-3.5 Performed By: #### F DESMOND, PRO ####[address] [address] PT Coag (PPP) [Time] 11.9 s Normal 9.0-14.2 [facility] ([place]) Comment on above: Result Comment: Effe ctive 03/19/08, Protime results may be affected by some antibiotics (i.e. Ciprofloxacin, Azithromycin, Bactrim) which may potentiate the action of oral anticoagulants, with further increases in Protime/INR. Performed By: #### F DESMOND, PRO ####[address] [address] XR ABDOMEN APon 11-03-2023 XR ABDOMEN AP Normal [facility]) XR FLUORO 1-2 HRS TECH TIMEo n 11-03-2023 XR FLUORO 1-2 HRS TECH TIME Normal [facility]) CURon 10-26-2023 CUR Normal [facility]) .Auto Diffon 10-18-2023 Basophil, Absolute 0.0 10 3/mcL Normal 0.0-0.3 [facility] ([place]) Comment on above: Performed By: #### G FR, ANEU, BMP, CBC, ADIFF ####[address] [address] Basophils/100 WBC (Bld) 1.2 % Normal 0.0-2.5 [facility] ([place]) Comment on above: Performed By: #### G FR, ANEU, BMP, CBC, ADIFF ####[address] [address] Eosinophil, Absolute 0.3 10 3/mcL Normal 0.0-0.7 [facility] ([place]) Comment on above: Performed By: #### G FR, ANEU, BMP, CBC, ADIFF ####[address] [address] Eosinophils/100 WBC (Bld) 10.8 % High 0.0-6.0 [facility] ([place]) Comment on above: Performed By: #### G FR, ANEU, BMP, CBC, ADIFF ####[address] [address] Lymphocyte, Absolute 0.3 10 3/mcL Low 0.9-4.3 [facility] ([place]) Comment on above: Performed By: #### G FR, ANEU, BMP, CBC, ADIFF ####[address] [address] Lymphocytes/100 WBC (Bld) 11.3 % Low 20.0-40.0 [facility] ([place]) Comment on above: Performed By: #### G FR, ANEU, BMP, CBC, ADIFF ####[address] [address] Monocyte, Absolute 0.5 10 3/mcL Normal 0.1-1.4 [facility] ([place]) Comment on above: Performed By: #### G FR, ANEU, BMP, CBC, ADIFF ####[address] [address] Monocytes/100 WBC (Bld) 18.3 % High 2.0-13.0 [facility] ([place]) Comment on above: Performed By: #### G FR, ANEU, BMP, CBC, ADIFF ####[address] [address] Neutrophils/100 WBC (Bld) 58.4 % Normal 50.0-75.0 [facility] ([place]) Comment on above: Performed By: #### G FR, ANEU, BMP, CBC, ADIFF ####[address] [address] .GFRon 10-18-2023 GFR Non- 60 ml/min/1.73sqm Normal [facility] ([place]) Comment on above: Result Comment: GFR Population mean for , Non- Americans Ages 20-29 = 116 mL/min/1.73 sq.m. Ages 30-39 = 107 mL/min/1.73 sq.m. Ages 40-49 = 99 mL/min/1.73 sq.m. Ages 50-59 = 93 mL/min/1.73 sq.m. Ages 60-69 = 85 mL/min/1.73 sq.m. Ages 70+ = 75 mL/min/1.73 sq.m.Chronic Kidney Disease: Less than 60 mL/min/1.73 square metersEnd Stage Renal Disease: Less than 15 mL/min/1.73 square meters Performed By: #### G FR, ANEU, BMP, CBC, ADIFF ####[place] [address] GFR >60 Normal [facility] ([place]) Comment on above: Result Comment: GFR Population mean for , Non- Americans Ages 20-29 = 116 mL/min/1.73 sq.m. Ages 30-39 = 107 mL/min/1.73 sq.m. Ages 40-49 = 99 mL/min/1.73 sq.m. Ages 50-59 = 93 mL/min/1.73 sq.m. Ages 60-69 = 85 mL/min/1.73 sq.m. Ages 70+ = 75 mL/min/1.73 sq.m.Chronic Kidney Disease: Less than 60 mL/min/1.73 square metersEnd Stage Renal Disease: Less than 15 mL/min/1.73 square meters Performed By: #### G FR, ANEU, BMP, CBC, ADIFF ####[place] [address] .NEUABSon 10-18-2023 Neutrophil, Absolute 1.7 10 3/mcL Low 2.3-8.1 [facility] ([place]) Comment on above: Performed By: #### G FR, ANEU, BMP, CBC, ADIFF ####[place] [address] BMPon 10-18-2023 BUN/Creatinine Ratio 21.7 ratio Normal 10.0-22.0 [facility] ([place]) Comment on above: Performed By: #### G FR, ANEU, BMP, CBC, ADIFF ####[place] [address] Calcium [Mass/Vol] 9.4 mg/dL Normal 8.7-10.4 [facility] ([place]) Comment on above: Performed By: #### G FR, ANEU, BMP, CBC, ADIFF ####[address] [address] Chloride [Moles/Vol] 106 mmol/L Normal 98-110 [facility] ([place]) Comment on above: Performed By: #### G FR, ANEU, BMP, CBC, ADIFF ####[address] [address] CO2 [Moles/Vol] 29 mmol/L Normal 22-32 [facility] ([place]) Comment on above: Performed By: #### G FR, ANEU, BMP, CBC, ADIFF ####[address] [address] Creatinine [Mass/Vol] 1.15 mg/dL Normal 0.60-1.40 [facility] ([place]) Comment on above: Performed By: #### G FR, ANEU, BMP, CBC, ADIFF ####[place] [address] Electrolyte Balance 4.0 mEq/L Normal 4.0-15.0 [facility] ([place]) Comment on above: Performed By: #### G FR, ANEU, BMP, CBC, ADIFF ####[place] [address] Glucose [Mass/Vol] 103 mg/dL Normal 82-115 [facility] ([place]) Comment on above: Performed By: #### G FR, ANEU, BMP, CBC, ADIFF ####[address] [address] Potassium [Moles/Vol] 4.7 mmol/L Normal 3.5-5.0 [facility] ([place]) Comment on above: Performed By: #### G FR, ANEU, BMP, CBC, ADIFF ####[place] [address] Sodium [Moles/Vol] 139 mmol/L Normal 136-145 [facility] ([place] Comment on above: Performed By: #### G FR, ANEU, BMP, CBC, ADIFF ####[place] [address] Urea nitrogen [Mass/Vol] 25.0 mg/dL High 8.0-22.0 [facility] ([place]) Comment on above: Performed By: #### G FR, ANEU, BMP, CBC, ADIFF ####[place] [address] CBCon 10-18-2023 Erythrocyte distribution width (RBC) [Ratio] 16.7 % High 11.5-15.5 [facility] ([place]) Comment on above: Performed By: #### G FR, ANEU, BMP, CBC, ADIFF ####[place] [address] Hematocrit (Bld) [Volume fraction] 27.8 % Low 40.0-52.0 [facility] ([place]) Comment on above: Performed By: #### G FR, ANEU, BMP, CBC, ADIFF ####[place] [address] Hgb 9.0 G/dL Low 13.0-17.5 [facility] ([place]) Comment on above: Performed By: #### G FR, ANEU, BMP, CBC, ADIFF ####[place] [address] MCH (RBC) [Entitic mass] 30.0 pg Normal 27.0-33.0 [facility] ([place]) Comment on above: Performed By: #### G FR, ANEU, BMP, CBC, ADIFF ####[place] [address] MCHC 32.5 G/dL Normal 32.0-36.0 [facility] ([place]) Comment on above: Performed By: #### G FR, ANEU, BMP, CBC, ADIFF ####[place] [address] MCV (RBC) [Entitic vol] 92.4 fL Normal 81.0-100.0 [facility] ([place]) Comment on above: Performed By: #### G FR, ANEU, BMP, CBC, ADIFF ####[place] [address] Platelet 167 10 3/mcL Normal 150-450 [facility] ([place]) Comment on above: Performed By: #### G FR, ANEU, BMP, CBC, ADIFF ####[place] [address] Platelet mean volume (Bld) [Entitic vol] 7.5 fL Normal 6.4-10.5 [facility] ([place]) Comment on above: Performed By: #### G FR, ANEU, BMP, CBC, ADIFF ####[place] [address] RBC 3.01 10 6/mcL Low 4.50-6.00 [facility] ([place]) Comment on above: Performed By: #### G FR, ANEU, BMP, CBC, ADIFF ####[place] [address] WBC 3.0 10 3/mcL Low 4.5-10.8 [facility] ([place]) Comment on above: Performed By: #### G FR, ANEU, BMP, CBC, ADIFF ####[place] [address] LABORATORYOrdered By: SYSTEM SYSTEM on 10-18-2023 Basophils (Bld) [#/Vol] 0.0 103/mcL Normal 0.0 - 0.3 10^3/mcL Workflow SS Basophils/100 WBC (Bld) 1.2 % Normal 0.0 - 2.5 % Workflow SS Calcium [Mass/Vol] 9.4 mg/dL Normal 8.7 - 10. 4 mg/dL ADM SS Chloride [Moles/Vol] 106 mmol/L Normal 98 - 11 0 mEq/L ADM SS CO2 [Moles/Vol] 29 mmol/L Normal 22 - 32 mEq/L ADM SS Creatinine [Mass/Vol] 1.15 mg/dL Normal 0.60 - 1.40 mg/dL ADM SS Electrolyte Balance 4.0 mEq/L Normal 4.0 - 15 .0 mEq/L ADM SS Eosinophils (Bld) [#/Vol] 0.3 103/mcL Normal 0.0 - 0.7 10^3/mcL AH Workflow SS Eosinophils/100 WBC (Bld) 10.8 % High 0.0 - 6.0 % AH Workflow SS Erythrocyte distribution width (RBC) [Ratio] 16.7 % High 11.5 - 15.5 % Workflow SS GFR/1.73 sq M.predicted among blacks MDRD (S/P/Bld) [Vol rate/Area] ml/min/1.73sqm Invalid Interpretation Code No Paper Just [employer] Chemistry S Comment on above: Interpretive Data: GFR Population mean for , Non- Americans Ages 20-29 = 116 mL/min/1.73 sq.m. Ages 30-39 = 107 mL/min/1.73 sq.m. Ages 40-49 = 99 mL/min/1.73 sq.m. Ages 50-59 = 93 mL/min/1.73 sq.m. Ages 60-69 = 85 mL/min/1.73 sq.m. Ages 70+ = 75 mL/min/1.73 sq.m. Chronic Kidney Disease: Less than 60 mL/min/1.73 square meters End Stage Renal Disease: Less than 15 mL/min/1.73 square meters GFR/1.73 sq M.predicted among non-blacks MDRD (S/P/Bld) [Vol rate/Area] 60 ml/min/1.73sqm Invalid Interpretation Code No Paper Just [employer] Chemistry S Comment on above: Interpretive Data: GFR Population mean for , Non- Americans Ages 20-29 = 116 mL/min/1.73 sq.m. Ages 30-39 = 107 mL/min/1.73 sq.m. Ages 40-49 = 99 mL/min/1.73 sq.m. Ages 50-59 = 93 mL/min/1.73 sq.m. Ages 60-69 = 85 mL/min/1.73 sq.m. Ages 70+ = 75 mL/min/1.73 sq.m. Chronic Kidney Disease: Less than 60 mL/min/1.73 square meters End Stage Renal Disease: Less than 15 mL/min/1.73 square meters Glucose [Mass/Vol] 103 mg/dL Normal 82 - 115 mg/dL ADM SS Hematocrit (Bld) [Volume fraction] 27.8 % Low 40.0 - 52.0 % Workflow SS Hemoglobin (Bld) [Mass/Vol] 9.0 G/dL Low 13.0 - 17.5 G/dL Workflow SS Lymphocytes (Bld) [#/Vol] 0.3 103/mcL Low 0.9 - 4.3 10^3/mcL AH Workflow SS Lymphocytes/100 WBC (Bld) 11.3 % Low 20.0 - 40.0 % AH Workflow SS MCH (RBC) [Entitic mass] 30.0 pg Normal 27.0 - 33.0 pg AH Workflow SS MCHC 32.5 G/dL Normal 32.0 - 36.0 G/dL AH Workflow SS MCV (RBC) [Entitic vol] 92.4 fL Normal 81.0 - 100.0 fL AH Workflow SS Monocytes (Bld) [#/Vol] 0.5 103/mcL Normal 0.1 - 1.4 10^3/mcL AH Workflow SS Monocytes/100 WBC (Bld) 18.3 % High 2.0 - 13.0 % AH Workflow SS Neutrophils (Bld) [#/Vol] 1.7 103/mcL Low 2.3 - 8.1 10^3/mcL AH Workflow SS Neutrophils/100 WBC (Bld) 58.4 % Normal 50.0 - 75.0 % AH Workflow SS Platelet mean volume (Bld) [Entitic vol] 7.5 fL Normal 6.4 - 10.5 fL AH Workflow SS Platelets (Bld) [#/Vol] 167 103/mcL Normal 150 - 450 10^3/mcL AH Workflow SS Potassium [Moles/Vol] 4.7 mmol/L Normal 3.5 - 5.0 mEq/L AH ADM SS RBC (Bld) [#/Vol] 3.01 106/mcL Low 4.50 - 6.0 0 10^6/mcL AH Workflow SS Sodium [Moles/Vol] 139 mmol/L Normal 136 - 145 mEq/L AH ADM SS Urea nitrogen [Mass/Vol] 25.0 mg/dL High 8.0 - 22.0 mg/dL AH ADM SS Urea nitrogen/Creatinine [Mass ratio] 21.7 ratio Normal 10.0 - 22.0 ratio AH ADM SS WBC (Bld) [#/Vol] 3.0 103/mcL Low 4.5 - 10.8 10^3/mcL AH Workflow SS .Auto Diffon 10-11-2023 Basophil, Absolute 0.0 10 3/mcL Normal 0.0-0.2 [facility] ([place]) Comment on above: Performed By: #### C MP, PSA, ADIFF, ANEU, GFR, CBC ####[address] [place], [place] [address] Basophils/100 WBC (Bld) 0.7 % Normal 0.0-2.5 [facility] ([place]) Comment on above: Performed By: #### C MP, PSA, ADIFF, ANEU, GFR, CBC ####[address] [place], [place] [address] Eosinophil, Absolute 0.3 10 3/mcL Normal 0.0-0.4 [facility] ([place]) Comment on above: Performed By: #### C MP, PSA, ADIFF, ANEU, GFR, CBC ####[address] [place], [place] [address] Eosinophils/100 WBC (Bld) 9.4 % High 0.0-7.0 [facility] ([place]) Comment on above: Performed By: #### C MP, PSA, ADIFF, ANEU, GFR, CBC ####[address] [address] Lymphocyte, Absolute 0.3 10 3/mcL Low 0.8-3.9 [facility] ([place]) Comment on above: Performed By: #### C MP, PSA, ADIFF, ANEU, GFR, CBC ####[address] [address] Lymphocytes/100 WBC (Bld) 10.2 % Normal 10.0-50.0 [facility] ([place]) Comment on above: Performed By: #### C MP, PSA, ADIFF, ANEU, GFR, CBC ####[address] [address] Monocyte, Absolute 0.5 10 3/mcL Normal 0.2-1.0 [facility] ([place]) Comment on above: Performed By: #### C MP, PSA, ADIFF, ANEU, GFR, CBC ####[address] [address] Monocytes/100 WBC (Bld) 16.1 % High 1.7-13.0 [facility] ([place]) Comment on above: Performed By: #### C MP, PSA, ADIFF, ANEU, GFR, CBC ####[address] [place], [place] [address] Neutrophils/100 WBC (Bld) 63.6 % Normal 37.0-80.0 [facility] ([place]) Comment on above: Performed By: #### C MP, PSA, ADIFF, ANEU, GFR, CBC ####[address] [place], [place] [address] .GFRon 10-11-2023 GFR 56 ml/min/1.73sqm Normal [facility] ([place]) Comment on above: Result Comment: GFR Population mean for , Non- Americans Ages 20-29 = 116 mL/min/1.73 sq.m. Ages 30-39 = 107 mL/min/1.73 sq.m. Ages 40-49 = 99 mL/min/1.73 sq.m. Ages 50-59 = 93 mL/min/1.73 sq.m. Ages 60-69 = 85 mL/min/1.73 sq.m. Ages 70+ = 75 mL/min/1.73 sq.m.Chronic Kidney Disease: Less than 60 mL/min/1.73 square metersEnd Stage Renal Disease: Less than 15 mL/min/1.73 square meters Performed By: #### C MP, PSA, ADIFF, ANEU, GFR, CBC ####[address] [place], [place] [address] GFR Non- 46 ml/min/1.73sqm Normal [facility] ([place]) Comment on above: Result Comment: GFR Population mean for , Non- Americans Ages 20-29 = 116 mL/min/1.73 sq.m. Ages 30-39 = 107 mL/min/1.73 sq.m. Ages 40-49 = 99 mL/min/1.73 sq.m. Ages 50-59 = 93 mL/min/1.73 sq.m. Ages 60-69 = 85 mL/min/1.73 sq.m. Ages 70+ = 75 mL/min/1.73 sq.m.Chronic Kidney Disease: Less than 60 mL/min/1.73 square metersEnd Stage Renal Disease: Less than 15 mL/min/1.73 square meters Performed By: #### C MP, PSA, ADIFF, ANEU, GFR, CBC ####[address] [place], [place] [address] .NEUABSon 10-11-2023 Neutrophil, Absolute 2.2 10 3/mcL Low 2.9-6.2 [facility] ([place]) Comment on above: Performed By: #### C MP, PSA, ADIFF, ANEU, GFR, CBC ####[address] [place], [place] [address] CBCon 10-11-2023 Erythrocyte distribution width (RBC) [Ratio] 16.0 % High 11.5-14.5 [facility] ([place]) Comment on above: Performed By: #### C MP, PSA, ADIFF, ANEU, GFR, CBC ####[address] [place], [place] [address] Hematocrit (Bld) [Volume fraction] 25.5 % Low 42.0-52.0 [facility] ([place] Comment on above: Performed By: #### C MP, PSA, ADIFF, ANEU, GFR, CBC ####[address] [place], [place] [address] Hgb 8.6 G/dL Low 14.0-18.0 [facility] ([place]) Comment on above: Performed By: #### C MP, PSA, ADIFF, ANEU, GFR, CBC ####[address] [place], [place] [address] MCH (RBC) [Entitic mass] 30.7 pg Normal 27.0-31.2 [facility] ([place]) Comment on above: Performed By: #### C MP, PSA, ADIFF, ANEU, GFR, CBC ####[address] [place], [place] [address] MCHC 33.9 G/dL Normal 31.8-35.4 [facility] ([place]) Comment on above: Performed By: #### C MP, PSA, ADIFF, ANEU, GFR, CBC ####[address] [address] [place] [id number] MCV (RBC) [Entitic vol] 90.6 fL Normal 80.0-94.0 [facility] ([place]) Comment on above: Performed By: #### C MP, PSA, ADIFF, ANEU, GFR, CBC ####[address] [place], [place] [address] Platelet 169 10 3/mcL Normal 130-400 [facility] ([place]) Comment on above: Performed By: #### C MP, PSA, ADIFF, ANEU, GFR, CBC ####[address] [place], [place] [address] Platelet mean volume (Bld) [Entitic vol] 7.4 fL Normal 7.4-10.4 [facility] ([place]) Comment on above: Performed By: #### C MP, PSA, ADIFF, ANEU, GFR, CBC ####[address] [place], [place] [address] RBC 2.81 10 6/mcL Low 4.04-6.13 [facility] ([place]) Comment on above: Performed By: #### C MP, PSA, ADIFF, ANEU, GFR, CBC ####[address] [place], [place] [address] WBC 3.4 10 3/mcL Low 4.6-10.8 [facility] ([place]) Comment on above: Performed By: #### C MP, PSA, ADIFF, ANEU, GFR, CBC ####[address] [place], [place] [address] CMPon 10-11-2023 Albumin Level 3.2 G/dL Low 3.4-4.8 [facility] ([place]) Comment on above: Performed By: #### C MP, PSA, ADIFF, ANEU, GFR, CBC ####[address] [place], [place] [address] Albumin/Globulin [Mass ratio] 1.0 {ratio} Low 1.1-2.5 [facility] ([place]) Comment on above: Performed By: #### C MP, PSA, ADIFF, ANEU, GFR, CBC ####[address] [place], [place] [address] ALP [Catalytic activity/Vol] 74 U/L Normal 40-135 [facility] ([place]) Comment on above: Performed By: #### C MP, PSA, ADIFF, ANEU, GFR, CBC ####[id number] [place], [place] [address] ALT [Catalytic activity/Vol] 24 U/L Normal 16-63 [facility] ([place]) Comment on above: Performed By: #### C MP, PSA, ADIFF, ANEU, GFR, CBC ####[address] [place], [place] [address] AST [Catalytic activity/Vol] 26 U/L Normal 10-40 [facility] [facility] ([place]) Comment on above: Performed By: #### C MP, PSA, ADIFF, ANEU, GFR, CBC ####[address] [place], [place] [address] Bili Total 0.3 mg/dL Normal 0.2-1.0 [facility] ([place]) Comment on above: Result Comment: Use of this assay is not recommended for patients undergoing treatment with eltrombopag due to the potential for falsely elevated results. Performed By: #### C MP, PSA, ADIFF, ANEU, GFR, CBC ####[address] [place], [place] [address] BUN/Creatinine Ratio 19 ratio Normal 7-27 [facility] ([place]) Comment on above: Performed By: #### C MP, PSA, ADIFF, ANEU, GFR, CBC ####[address] [place], [place] [address] Calcium [Mass/Vol] 9.0 mg/dL Normal 8.4-10.2 [facility] ([place]) Comment on above: Performed By: #### C MP, PSA, ADIFF, ANEU, GFR, CBC ####[address] [place], [place] [address] Chloride [Moles/Vol] 104 mmol/L Normal 98-107 [facility] ([place]) Comment on above: Performed By: #### C MP, PSA, ADIFF, ANEU, GFR, CBC ####[address] [place], [place] [address] CO2 [Moles/Vol] 30 mmol/L Normal 23-31 [facility] ([place]) Comment on above: Performed By: #### C MP, PSA, ADIFF, ANEU, GFR, CBC ####[address] [place], [place] [address] Creatinine [Mass/Vol] 1.45 mg/dL High 0.70-1.30 [facility] ([place]) Comment on above: Performed By: #### C MP, PSA, ADIFF, ANEU, GFR, CBC ####[address] [place], [place] [address] Electrolyte Balance 6.0 mEq/L Normal 4.0-15.0 [facility] ([place]) Comment on above: Performed By: #### C MP, PSA, ADIFF, ANEU, GFR, CBC ####[address] [place], [place] [address] Globulin 3.3 G/dL Normal [facility] ([place]) Comment on above: Performed By: #### C MP, PSA, ADIFF, ANEU, GFR, CBC ####[address] [place], [place] [address] Glucose [Mass/Vol] 113 mg/dL High 83-110 [facility] ([place]) Comment on above: Performed By: #### C MP, PSA, ADIFF, ANEU, GFR, CBC ####[address] [place], [place] [address] Potassium [Moles/Vol] 4.2 mmol/L Normal 3.5-5.1 [facility] ([place]) Comment on above: Performed By: #### C MP, PSA, ADIFF, ANEU, GFR, CBC ####[address] [place], [place] [address] Sodium [Moles/Vol] 140 mmol/L Normal 136-145 [facility] ([place] Comment on above: Performed By: #### C MP, PSA, ADIFF, ANEU, GFR, CBC ####[address] [place], [place] [address] Total Protein 6.5 G/dL Normal 6.4-8.2 [facility] ([place]) Comment on above: Performed By: #### C MP, PSA, ADIFF, ANEU, GFR, CBC ####[address] [place], [place] [address] Urea nitrogen [Mass/Vol] 27 mg/dL High 7-18 [facility] ([place]) Comment on above: Performed By: #### C MP, PSA, ADIFF, ANEU, GFR, CBC ####[address] [place], [place] [address] LABORATORYOrdered By: SYSTEM SYSTEM on 10-11-2023 Albumin BCP dye [Mass/Vol] 3.2 G/dL Low 3.4 - 4.8 G/dL AO ADM SS Albumin/Globulin [Mass ratio] 1.0 {ratio} Low 1.1 - 2.5 ratio AO ADM SS ALP [Catalytic activity/Vol] 74 U/L Normal 40 - 135 U/L AO ADM SS ALT With P-5'-P [Catalytic activity/Vol] 24 U/L Normal 16 - 63 U/L AO ADM SS AST With P-5'-P [Catalytic activity/Vol] 26 U/L Normal 10 - 40 U/L AO ADM SS Basophil, Absolute 0.0 103/mcL Normal 0.0 - 0.2 10^3/mcL AO Workflow SS Basophils/100 WBC (Bld) 0.7 % Normal 0.0 - 2.5 % AO Workflow SS Bilirubin [Mass/Vol] 0.3 mg/dL Normal 0.2 - 1 .0 mg/dL AO ADM SS Comment on above: Interpretive Data: U se of this assay is not recommended for patients undergoing treatment with eltrombopag due to the potential for falsely elevated results. Calcium [Mass/Vol] 9.0 mg/dL Normal 8.4 - 10. 2 mg/dL AO ADM SS Chloride [Moles/Vol] 104 mmol/L Normal 98 - 10 7 mmol/L AO ADM SS CO2 [Moles/Vol] 30 mmol/L Normal 23 - 31 mmol/L AO ADM SS Creatinine [Mass/Vol] 1.45 mg/dL High 0.70 - 1.30 mg/dL AO ADM SS Electrolyte Balance 6.0 mEq/L Normal 4.0 - 15 .0 mEq/L AO ADM SS Eosinophil, Absolute 0.3 103/mcL Normal 0.0 - 0 .4 10^3/mcL AO Workflow SS Eosinophils/100 WBC (Bld) 9.4 % High 0.0 - 7.0 % AO Workflow SS Erythrocyte distribution width (RBC) [Ratio] 16.0 % High 11.5 - 14.5 % AO Workflow SS GFR/1.73 sq M.predicted among blacks MDRD (S/P/Bld) [Vol rate/Area] 56 ml/min/1.73sqm Invalid Interpretation Code AO Chemistry S Comment on above: Interpretive Data: GFR Population mean for , Non- Americans Ages 20-29 = 116 mL/min/1.73 sq.m. Ages 30-39 = 107 mL/min/1.73 sq.m. Ages 40-49 = 99 mL/min/1.73 sq.m. Ages 50-59 = 93 mL/min/1.73 sq.m. Ages 60-69 = 85 mL/min/1.73 sq.m. Ages 70+ = 75 mL/min/1.73 sq.m. Chronic Kidney Disease: Less than 60 mL/min/1.73 square meters End Stage Renal Disease: Less than 15 mL/min/1.73 square meters GFR/1.73 sq M.predicted among non-blacks MDRD (S/P/Bld) [Vol rate/Area] 46 ml/min/1.73sqm Invalid Interpretation Code AO Chemistry S Comment on above: Interpretive Data: GFR Population mean for , Non- Americans Ages 20-29 = 116 mL/min/1.73 sq.m. Ages 30-39 = 107 mL/min/1.73 sq.m. Ages 40-49 = 99 mL/min/1.73 sq.m. Ages 50-59 = 93 mL/min/1.73 sq.m. Ages 60-69 = 85 mL/min/1.73 sq.m. Ages 70+ = 75 mL/min/1.73 sq.m. Chronic Kidney Disease: Less than 60 mL/min/1.73 square meters End Stage Renal Disease: Less than 15 mL/min/1.73 square meters Globulin 3.3 G/dL Invalid Interpretation Code AO ADM SS Glucose [Mass/Vol] 113 mg/dL High 83 - 110 mg/dL AO ADM SS Hematocrit (Bld) [Volume fraction] 25.5 % Low 42.0 - 52.0 % AO Workflow SS Hemoglobin (Bld) [Mass/Vol] 8.6 G/dL Low 14.0 - 18.0 G/dL AO Workflow SS Lymphocyte, Absolute 0.3 103/mcL Low 0.8 - 3 .9 10^3/mcL AO Workflow SS Lymphocytes/100 WBC (Bld) 10.2 % Normal 10.0 - 50.0 % AO Workflow SS MCH (RBC) [Entitic mass] 30.7 pg Normal 27.0 - 31.2 pg AO Workflow SS MCHC 33.9 G/dL Normal 31.8 - 35.4 G/dL AO Workflow SS MCV (RBC) [Entitic vol] 90.6 fL Normal 80.0 - 94.0 fL AO Workflow SS Monocyte, Absolute 0.5 103/mcL Normal 0.2 - 1.0 10^3/mcL AO Workflow SS Monocytes/100 WBC (Bld) 16.1 % High 1.7 - 13.0 % AO Workflow SS Neutrophil, Absolute 2.2 103/mcL Low 2.9 - 6 .2 10^3/mcL AO Workflow SS Neutrophils/100 WBC (Bld) 63.6 % Normal 37.0 - 80.0 % AO Workflow SS Platelet mean volume (Bld) [Entitic vol] 7.4 fL Normal 7.4 - 10.4 fL AO Workflow SS Platelets (Bld) [#/Vol] 169 103/mcL Normal 130 - 400 10^3/mcL AO Workflow SS Potassium [Moles/Vol] 4.2 mmol/L Normal 3.5 - 5.1 mmol/L AO ADM SS Prostate specific Ag [Mass/Vol] ng/mL Normal 0.00 - 4.00 ng/mL AO ADM SS Protein [Mass/Vol] 6.5 G/dL Normal 6.4 - 8.2 G/dL AO ADM SS RBC (Bld) [#/Vol] 2.81 106/mcL Low 4.04 - 6.1 3 10^6/mcL AO Workflow SS Sodium [Moles/Vol] 140 mmol/L Normal 136 - 145 mmol/L AO ADM SS Urea nitrogen [Mass/Vol] 27 mg/dL High 7 - 18 mg/dL AO ADM SS Urea nitrogen/Creatinine [Mass ratio] 19 ratio Normal 7 - 27 ratio AO ADM SS WBC (Bld) [#/Vol] 3.4 103/mcL Low 4.6 - 10.8 10^3/mcL AO Workflow SS PSAon 10-11-2023 Prostate Specific Antigen <0.05 Normal 0.00-4.00 [facility] ([place]) Comment on above: Performed By: #### C MP, PSA, ADIFF, ANEU, GFR, CBC ####[address] [place], [place] [address] CURon 09-30-2023 CUR Normal [facility] ([place]) .Auto Diffon 09-28-2023 Basophil, Absolute 0.0 10 3/mcL Normal 0.0-0.3 [facility] ([place]) Comment on above: Performed By: #### C BC, FES, CMP, GFR, ADIFF, FERR, ANEU ####[address] [address] Basophils/100 WBC (Bld) 1.1 % Normal 0.0-2.5 [facility] ([place]) Comment on above: Performed By: #### C BC, FES, CMP, GFR, ADIFF, FERR, ANEU ####[address] [address] Eosinophil, Absolute 0.3 10 3/mcL Normal 0.0-0.7 [facility] ([place]) Comment on above: Performed By: #### C BC, FES, CMP, GFR, ADIFF, FERR, ANEU ####[address] [address] Eosinophils/100 WBC (Bld) 6.6 % High 0.0-6.0 [facility] ([place]) Comment on above: Performed By: #### C BC, FES, CMP, GFR, ADIFF, FERR, ANEU ####[address] [address] Lymphocyte, Absolute 0.3 10 3/mcL Low 0.9-4.3 [facility] ([place]) Comment on above: Performed By: #### C BC, FES, CMP, GFR, ADIFF, FERR, ANEU ####[address] [address] Lymphocytes/100 WBC (Bld) 8.1 % Low 20.0-40.0 [facility] ([place]) Comment on above: Performed By: #### C BC, FES, CMP, GFR, ADIFF, FERR, ANEU ####[address] [address] Monocyte, Absolute 0.5 10 3/mcL Normal 0.1-1.4 [facility] ([place]) Comment on above: Performed By: #### C BC, FES, CMP, GFR, ADIFF, FERR, ANEU ####[address] [address] Monocytes/100 WBC (Bld) 13.1 % High 2.0-13.0 [facility] ([place]) Comment on above: Performed By: #### C BC, FES, CMP, GFR, ADIFF, FERR, ANEU ####[address] [address] Neutrophils/100 WBC (Bld) 71.1 % Normal 50.0-75.0 [facility] ([place]) Comment on above: Performed By: #### C BC, FES, CMP, GFR, ADIFF, FERR, ANEU ####[address] [address] .GFRon 09-28-2023 GFR 60 ml/min/1.73sqm Normal [facility] ([place]) Comment on above: Result Comment: GFR Population mean for , Non- Americans Ages 20-29 = 116 mL/min/1.73 sq.m. Ages 30-39 = 107 mL/min/1.73 sq.m. Ages 40-49 = 99 mL/min/1.73 sq.m. Ages 50-59 = 93 mL/min/1.73 sq.m. Ages 60-69 = 85 mL/min/1.73 sq.m. Ages 70+ = 75 mL/min/1.73 sq.m.Chronic Kidney Disease: Less than 60 mL/min/1.73 square metersEnd Stage Renal Disease: Less than 15 mL/min/1.73 square meters Performed By: #### C BC, FES, CMP, GFR, ADIFF, FERR, ANEU ####[place] [address] GFR Non- 49 ml/min/1.73sqm Normal [facility] ([place]) Comment on above: Result Comment: GFR Population mean for , Non- Americans Ages 20-29 = 116 mL/min/1.73 sq.m. Ages 30-39 = 107 mL/min/1.73 sq.m. Ages 40-49 = 99 mL/min/1.73 sq.m. Ages 50-59 = 93 mL/min/1.73 sq.m. Ages 60-69 = 85 mL/min/1.73 sq.m. Ages 70+ = 75 mL/min/1.73 sq.m.Chronic Kidney Disease: Less than 60 mL/min/1.73 square metersEnd Stage Renal Disease: Less than 15 mL/min/1.73 square meters Performed By: #### C BC, FES, CMP, GFR, ADIFF, FERR, ANEU ####[place] [address] .NEUABSon 09-28-2023 Neutrophil, Absolute 2.7 10 3/mcL Normal 2.3-8.1 [facility] ([place]) Comment on above: Performed By: #### C BC, FES, CMP, GFR, ADIFF, FERR, ANEU ####[place] [address] CBCon 09-28-2023 Erythrocyte distribution width (RBC) [Ratio] 15.4 % Normal 11.5-15.5 [facility] ([place]) Comment on above: Performed By: #### C BC, FES, CMP, GFR, ADIFF, FERR, ANEU ####[place] [address] Hematocrit (Bld) [Volume fraction] 27.2 % Low 40.0-52.0 [facility] ([place]) Comment on above: Performed By: #### C BC, FES, CMP, GFR, ADIFF, FERR, ANEU ####[place] [address] Hgb 8.9 G/dL Low 13.0-17.5 [facility] ([place]) Comment on above: Performed By: #### C BC, FES, CMP, GFR, ADIFF, FERR, ANEU ####[place] [address] MCH (RBC) [Entitic mass] 30.4 pg Normal 27.0-33.0 [facility] ([place]) Comment on above: Performed By: #### C BC, FES, CMP, GFR, ADIFF, FERR, ANEU ####[place] [address] MCHC 32.7 G/dL Normal 32.0-36.0 [facility] ([place]) Comment on above: Performed By: #### C BC, FES, CMP, GFR, ADIFF, FERR, ANEU ####[place] [address] MCV (RBC) [Entitic vol] 92.9 fL Normal 81.0-100.0 [facility] ([place]) Comment on above: Performed By: #### C BC, FES, CMP, GFR, ADIFF, FERR, ANEU ####[place] [address] Platelet 222 10 3/mcL Normal 150-450 [facility] ([place]) Comment on above: Performed By: #### C BC, FES, CMP, GFR, ADIFF, FERR, ANEU ####[place] [address] Platelet mean volume (Bld) [Entitic vol] 8.2 fL Normal 6.4-10.5 [facility] ([place]) Comment on above: Performed By: #### C BC, FES, CMP, GFR, ADIFF, FERR, ANEU ####[place] [address] RBC 2.93 10 6/mcL Low 4.50-6.00 [facility] ([place]) Comment on above: Performed By: #### C BC, FES, CMP, GFR, ADIFF, FERR, ANEU ####[place] [address] WBC 3.8 10 3/mcL Low 4.5-10.8 [facility] ([place]) Comment on above: Performed By: #### C BC, FES, CMP, GFR, ADIFF, FERR, ANEU ####[place] [id number] CMPon 09-28-2023 Albumin Level 3.0 G/dL Low 3.2-4.8 [facility] ([place]) Comment on above: Performed By: #### C BC, FES, CMP, GFR, ADIFF, FERR, ANEU ####[place] [address] Albumin/Globulin [Mass ratio] 0.9 {ratio} Normal 0.9-1.6 [facility] ([place]) Comment on above: Performed By: #### C BC, FES, CMP, GFR, ADIFF, FERR, ANEU ####[place] [address] ALP [Catalytic activity/Vol] 57 U/L Normal 38-126 [facility] ([place]) Comment on above: Performed By: #### C BC, FES, CMP, GFR, ADIFF, FERR, ANEU ####[place] [address] ALT [Catalytic activity/Vol] 16 U/L Normal 12-55 [facility] ([place]) Comment on above: Performed By: #### C BC, FES, CMP, GFR, ADIFF, FERR, ANEU ####[place] [address] AST [Catalytic activity/Vol] 26 U/L Normal 8-34 [facility] ([place]) Comment on above: Performed By: #### C BC, FES, CMP, GFR, ADIFF, FERR, ANEU ####[place] [address] Bili Total 0.20 mg/dL Normal 0.20-1.20 [facility] ([place]) Comment on above: Result Comment: Use of this assay is not recommended for patients undergoing treatment with eltrombopag due to the potential for falsely elevated results. Performed By: #### C BC, FES, CMP, GFR, ADIFF, FERR, ANEU ####[place] [address] BUN/Creatinine Ratio 19.0 ratio Normal 10.0-22.0 [facility] ([place]) Comment on above: Performed By: #### C BC, FES, CMP, GFR, ADIFF, FERR, ANEU ####[address] [address] Calcium [Mass/Vol] 9.2 mg/dL Normal 8.7-10.4 [facility] ([place] Comment on above: Performed By: #### C BC, FES, CMP, GFR, ADIFF, FERR, ANEU ####[address] [address] Chloride [Moles/Vol] 108 mmol/L Normal 98-110 [facility] ([place]) Comment on above: Performed By: #### C BC, FES, CMP, GFR, ADIFF, FERR, ANEU ####[place] [address] CO2 [Moles/Vol] 31 mmol/L Normal 22-32 [facility] ([place]) Comment on above: Performed By: #### C BC, FES, CMP, GFR, ADIFF, FERR, ANEU ####[place] [address] Creatinine [Mass/Vol] 1.37 mg/dL Normal 0.60-1.40 [facility] ([place]) Comment on above: Performed By: #### C BC, FES, CMP, GFR, ADIFF, FERR, ANEU ####[place] [address] Electrolyte Balance 1.0 mEq/L Low 4.0-15.0 [facility] ([place]) Comment on above: Performed By: #### C BC, FES, CMP, GFR, ADIFF, FERR, ANEU ####[address] [address] Globulin 3.3 G/dL Normal 1.5-3.8 [facility] ([place]) Comment on above: Performed By: #### C BC, FES, CMP, GFR, ADIFF, FERR, ANEU ####[address] [address] Glucose [Mass/Vol] 106 mg/dL Normal 82-115 [facility] ([place] Comment on above: Performed By: #### C BC, FES, CMP, GFR, ADIFF, FERR, ANEU ####[place] [id number] Potassium [Moles/Vol] 4.5 mmol/L Normal 3.5-5.0 [facility] ([place]) Comment on above: Performed By: #### C BC, FES, CMP, GFR, ADIFF, FERR, ANEU ####[place] [address] Sodium [Moles/Vol] 140 mmol/L Normal 136-145 [facility] ([place] Comment on above: Performed By: #### C BC, FES, CMP, GFR, ADIFF, FERR, ANEU ####[place] [address] Total Protein 6.3 G/dL Normal 5.7-8.2 [facility] ([place]) Comment on above: Result Comment: No te - New Reference Range in effect 20 Performed By: #### C BC, FES, CMP, GFR, ADIFF, FERR, ANEU ####[place] [address] Urea nitrogen [Mass/Vol] 26.0 mg/dL High 8.0-22.0 [facility] ([place]) Comment on above: Performed By: #### C BC, FES, CMP, GFR, ADIFF, FERR, ANEU ####[place] [address] Mary 09-28-2023 Ferritin [Mass/Vol] 306.2 ng/mL Normal 26.0-388.0 [facility] ([place] Comment on above: Performed By: #### C BC, FES, CMP, GFR, ADIFF, FERR, ANEU ####[place] [address] FESon 09-28-2023 Iron [Mass/Vol] 46 ug/dL Low 65-175 [facility] ([place]) Comment on above: Performed By: #### C BC, FES, CMP, GFR, ADIFF, FERR, ANEU ####[place] [address] Iron Sat 16 % Normal [facility] ([place]) Comment on above: Performed By: #### C BC, FES, CMP, GFR, ADIFF, FERR, ANEU ####[address] [address] TIBC 279 mcg/dL Normal 250-500 [facility] ([place]) Comment on above: Performed By: #### C BC, FES, CMP, GFR, ADIFF, FERR, ANEU ####[address] [address] CBLon 09-26-2023 CBL Normal [facility] ([place]) .Auto Diffon 09-23-2023 Basophil, Absolute 0.0 10 3/mcL Normal 0.0-0.3 [facility] ([place] Comment on above: Performed By: #### B MP, ANEU, GFR, ADIFF, CBC ####[place] [address] Basophils/100 WBC (Bld) 0.6 % Normal 0.0-2.5 [facility] ([place]) Comment on above: Performed By: #### B MP, ANEU, GFR, ADIFF, CBC ####[place] [address] Eosinophil, Absolute 0.2 10 3/mcL Normal 0.0-0.7 [facility] ([place]) Comment on above: Performed By: #### B MP, ANEU, GFR, ADIFF, CBC ####[place] [address] Eosinophils/100 WBC (Bld) 4.8 % Normal 0.0-6.0 [facility] ([place]) Comment on above: Performed By: #### B MP, ANEU, GFR, ADIFF, CBC ####[place] [address] Lymphocyte, Absolute 0.3 10 3/mcL Low 0.9-4.3 [facility] ([place]) Comment on above: Performed By: #### B MP, ANEU, GFR, ADIFF, CBC ####[address] [address] Lymphocytes/100 WBC (Bld) 6.2 % Low 20.0-40.0 [facility] ([place]) Comment on above: Performed By: #### B MP, ANEU, GFR, ADIFF, CBC ####[address] [address] Monocyte, Absolute 0.4 10 3/mcL Normal 0.1-1.4 [facility] ([place]) Comment on above: Performed By: #### B MP, ANEU, GFR, ADIFF, CBC ####[address] [address] Monocytes/100 WBC (Bld) 8.8 % Normal 2.0-13.0 [facility] ([place]) Comment on above: Performed By: #### B MP, ANEU, GFR, ADIFF, CBC ####[address] [address] Neutrophils/100 WBC (Bld) 79.6 % High 50.0-75.0 [facility] ([place] Comment on above: Performed By: #### B MP, ANEU, GFR, ADIFF, CBC ####[address] [address] .GFRon 09-23-2023 GFR Non- 44 ml/min/1.73sqm Normal [facility] ([place]) Comment on above: Result Comment: GFR Population mean for , Non- Americans Ages 20-29 = 116 mL/min/1.73 sq.m. Ages 30-39 = 107 mL/min/1.73 sq.m. Ages 40-49 = 99 mL/min/1.73 sq.m. Ages 50-59 = 93 mL/min/1.73 sq.m. Ages 60-69 = 85 mL/min/1.73 sq.m. Ages 70+ = 75 mL/min/1.73 sq.m.Chronic Kidney Disease: Less than 60 mL/min/1.73 square metersEnd Stage Renal Disease: Less than 15 mL/min/1.73 square meters Performed By: #### B MP, ANEU, GFR, ADIFF, CBC ####[address] [address] GFR 54 ml/min/1.73sqm Normal [facility] ([place]) Comment on above: Result Comment: GFR Population mean for , Non- Americans Ages 20-29 = 116 mL/min/1.73 sq.m. Ages 30-39 = 107 mL/min/1.73 sq.m. Ages 40-49 = 99 mL/min/1.73 sq.m. Ages 50-59 = 93 mL/min/1.73 sq.m. Ages 60-69 = 85 mL/min/1.73 sq.m. Ages 70+ = 75 mL/min/1.73 sq.m.Chronic Kidney Disease: Less than 60 mL/min/1.73 square metersEnd Stage Renal Disease: Less than 15 mL/min/1.73 square meters Performed By: #### B MP, ANEU, GFR, ADIFF, CBC ####[address] [address] .NEUABSon 09-23-2023 Neutrophil, Absolute 3.7 10 3/mcL Normal 2.3-8.1 [facility] ([place] Comment on above: Performed By: #### B MP, ANEU, GFR, ADIFF, CBC ####[address] [address] BMPon 09-23-2023 BUN/Creatinine Ratio 22.7 ratio High 10.0-22.0 [facility] ([place] Comment on above: Performed By: #### B MP, ANEU, GFR, ADIFF, CBC ####[address] [address] Calcium [Mass/Vol] 8.2 mg/dL Low 8.7-10.4 [facility] ([place] Comment on above: Performed By: #### B MP, ANEU, GFR, ADIFF, CBC ####[address] [address] Chloride [Moles/Vol] 110 mmol/L Normal 98-110 [facility] ([place] Comment on above: Performed By: #### B MP, ANEU, GFR, ADIFF, CBC ####[address] [address] CO2 [Moles/Vol] 26 mmol/L Normal 22-32 [facility] ([place] Comment on above: Performed By: #### B MP, ANEU, GFR, ADIFF, CBC ####[address] [address] Creatinine [Mass/Vol] 1.50 mg/dL High 0.60-1.40 [facility] ([place] Comment on above: Performed By: #### B MP, ANEU, GFR, ADIFF, CBC ####[place] [address] Electrolyte Balance 6.0 mEq/L Normal 4.0-15.0 [facility] ([place]) Comment on above: Performed By: #### B MP, ANEU, GFR, ADIFF, CBC ####[address] [address] Glucose [Mass/Vol] 111 mg/dL Normal 82-115 [facility] ([place] Comment on above: Performed By: #### B MP, ANEU, GFR, ADIFF, CBC ####[place] [address] Potassium [Moles/Vol] 4.1 mmol/L Normal 3.5-5.0 [facility] ([place] Comment on above: Performed By: #### B MP, ANEU, GFR, ADIFF, CBC ####[address] [address] Sodium [Moles/Vol] 142 mmol/L Normal 136-145 [facility] ([place] Comment on above: Performed By: #### B MP, ANEU, GFR, ADIFF, CBC ####[address] [address] Urea nitrogen [Mass/Vol] 34.0 mg/dL High 8.0-22.0 [facility] ([place]) Comment on above: Performed By: #### B MP, ANEU, GFR, ADIFF, CBC ####[address] [address] CBCon 09-23-2023 Erythrocyte distribution width (RBC) [Ratio] 15.3 % Normal 11.5-15.5 [facility] ([place]) Comment on above: Performed By: #### B MP, ANEU, GFR, ADIFF, CBC ####[place] [address] Hematocrit (Bld) [Volume fraction] 23.3 % Low 40.0-52.0 [facility] ([place] Comment on above: Performed By: #### B MP, ANEU, GFR, ADIFF, CBC ####[place] [address] Hgb 7.9 G/dL Low 13.0-17.5 [facility] ([place] Comment on above: Performed By: #### B MP, ANEU, GFR, ADIFF, CBC ####[place] [address] MCH (RBC) [Entitic mass] 30.8 pg Normal 27.0-33.0 [facility] ([place] Comment on above: Performed By: #### B MP, ANEU, GFR, ADIFF, CBC ####[place] [address] MCHC 34.0 G/dL Normal 32.0-36.0 [facility] ([place] Comment on above: Performed By: #### B MP, ANEU, GFR, ADIFF, CBC ####[place] [address] MCV (RBC) [Entitic vol] 90.7 fL Normal 81.0-100.0 [facility] ([place] Comment on above: Performed By: #### B MP, ANEU, GFR, ADIFF, CBC ####[place] [address] Platelet 158 10 3/mcL Normal 150-450 [facility] ([place] Comment on above: Performed By: #### B MP, ANEU, GFR, ADIFF, CBC ####[place] [address] Platelet mean volume (Bld) [Entitic vol] 7.8 fL Normal 6.4-10.5 [facility] ([place]) Comment on above: Performed By: #### B MP, ANEU, GFR, ADIFF, CBC ####[place] [address] RBC 2.57 10 6/mcL Low 4.50-6.00 [facility] ([place]) Comment on above: Performed By: #### B MP, ANEU, GFR, ADIFF, CBC ####[place] [address] WBC 4.7 10 3/mcL Normal 4.5-10.8 [facility] ([place]) Comment on above: Performed By: #### B MP, ANEU, GFR, ADIFF, CBC ####[place] [address] Mary 09-23-2023 Ferritin [Mass/Vol] 381.4 ng/mL Normal 26.0-388.0 [facility] ([place]) Comment on above: Performed By: #### F ERR, FES ####[place] [address] FESon 09-23-2023 Iron [Mass/Vol] 63 ug/dL Low 65-175 [facility] ([place] Comment on above: Performed By: #### F ERR, FES ####[place] [address] Iron Sat 29 % Normal [facility] ([place] Comment on above: Performed By: #### F ERR, FES ####[place] [address] TIBC 219 mcg/dL Low 250-500 [facility] ([place] Comment on above: Performed By: #### F ERR, FES ####[place] [address] HHon 09-23-2023 Hematocrit (Bld) [Volume fraction] 27.8 % Low 40.0-52.0 [facility] ([place]) Comment on above: Performed By: #### H H ####[place] [address] Hgb 9.4 G/dL Low 13.0-17.5 [facility] ([place]) Comment on above: Performed By: #### H H ####[place] [address] LABORATORYOrdered By: Sheryl Lara on 09-23-2023 Glucose [Mass/Vol] 163 mg/dL High 82 - 115 mg/dL [facility] Work Phone: LABORATORYOrdered By: SYSTEM SYSTEM on 09-23-2023 Hematocrit (Bld) [Volume fraction] 27.8 % Low 40.0 - 52.0 % Workflow SS Hemoglobin (Bld) [Mass/Vol] 9.4 G/dL Low 13.0 - 17.5 G/dL Workflow SS Basophils (Bld) [#/Vol] 0.0 103/mcL Normal 0.0 - 0.3 10^3/mcL Workflow SS Basophils/100 WBC (Bld) 0.6 % Normal 0.0 - 2.5 % Workflow SS Calcium [Mass/Vol] 8.2 mg/dL Low 8.7 - 10. 4 mg/dL ADM SS Chloride [Moles/Vol] 110 mmol/L Normal 98 - 11 0 mEq/L ADM SS CO2 [Moles/Vol] 26 mmol/L Normal 22 - 32 mEq/L ADM SS Creatinine [Mass/Vol] 1.50 mg/dL High 0.60 - 1.40 mg/dL ADM SS Electrolyte Balance 6.0 mEq/L Normal 4.0 - 15 .0 mEq/L ADM SS Eosinophils (Bld) [#/Vol] 0.2 103/mcL Normal 0.0 - 0.7 10^3/mcL Workflow SS Eosinophils/100 WBC (Bld) 4.8 % Normal 0.0 - 6.0 % Workflow SS Erythrocyte distribution width (RBC) [Ratio] 15.3 % Normal 11.5 - 15.5 % Workflow SS Ferritin [Mass/Vol] 381.4 ng/mL Normal 26.0 - 388.0 ng/mL ADM SS GFR/1.73 sq M.predicted among blacks MDRD (S/P/Bld) [Vol rate/Area] 54 ml/min/1.73sqm Invalid Interpretation Code Chemistry S Comment on above: Interpretive Data: GFR Population mean for , Non- Americans Ages 20-29 = 116 mL/min/1.73 sq.m. Ages 30-39 = 107 mL/min/1.73 sq.m. Ages 40-49 = 99 mL/min/1.73 sq.m. Ages 50-59 = 93 mL/min/1.73 sq.m. Ages 60-69 = 85 mL/min/1.73 sq.m. Ages 70+ = 75 mL/min/1.73 sq.m. Chronic Kidney Disease: Less than 60 mL/min/1.73 square meters End Stage Renal Disease: Less than 15 mL/min/1.73 square meters GFR/1.73 sq M.predicted among non-blacks MDRD (S/P/Bld) [Vol rate/Area] 44 ml/min/1.73sqm Invalid Interpretation Code Chemistry S Comment on above: Interpretive Data: GFR Population mean for , Non- Americans Ages 20-29 = 116 mL/min/1.73 sq.m. Ages 30-39 = 107 mL/min/1.73 sq.m. Ages 40-49 = 99 mL/min/1.73 sq.m. Ages 50-59 = 93 mL/min/1.73 sq.m. Ages 60-69 = 85 mL/min/1.73 sq.m. Ages 70+ = 75 mL/min/1.73 sq.m. Chronic Kidney Disease: Less than 60 mL/min/1.73 square meters End Stage Renal Disease: Less than 15 mL/min/1.73 square meters Glucose [Mass/Vol] 111 mg/dL Normal 82 - 115 mg/dL ADM SS Hematocrit (Bld) [Volume fraction] 23.3 % Low 40.0 - 52.0 % Workflow SS Hemoglobin (Bld) [Mass/Vol] 7.9 G/dL Low 13.0 - 17.5 G/dL Workflow SS Iron [Mass/Vol] 63 ug/dL Low 65 - 175 mcg/dL ADM SS Iron binding capacity [Mass/Vol] 219 mcg/dL Low 250 - 500 mcg/dL ADM SS Iron saturation [Mass fraction] 29 % Invalid Interpretation Code ADM SS Lymphocytes (Bld) [#/Vol] 0.3 103/mcL Low 0.9 - 4.3 10^3/mcL Workflow SS Lymphocytes/100 WBC (Bld) 6.2 % Low 20.0 - 40.0 % Workflow SS MCH (RBC) [Entitic mass] 30.8 pg Normal 27.0 - 33.0 pg AH Workflow SS MCHC 34.0 G/dL Normal 32.0 - 36.0 G/dL AH Workflow SS MCV (RBC) [Entitic vol] 90.7 fL Normal 81.0 - 100.0 fL AH Workflow SS Monocytes (Bld) [#/Vol] 0.4 103/mcL Normal 0.1 - 1.4 10^3/mcL AH Workflow SS Monocytes/100 WBC (Bld) 8.8 % Normal 2.0 - 13.0 % AH Workflow SS Neutrophils (Bld) [#/Vol] 3.7 103/mcL Normal 2.3 - 8.1 10^3/mcL AH Workflow SS Neutrophils/100 WBC (Bld) 79.6 % High 50.0 - 75.0 % AH Workflow SS Platelet mean volume (Bld) [Entitic vol] 7.8 fL Normal 6.4 - 10.5 fL AH Workflow SS Platelets (Bld) [#/Vol] 158 103/mcL Normal 150 - 450 10^3/mcL AH Workflow SS Potassium [Moles/Vol] 4.1 mmol/L Normal 3.5 - 5.0 mEq/L AH ADM SS RBC (Bld) [#/Vol] 2.57 106/mcL Low 4.50 - 6.0 0 10^6/mcL AH Workflow SS Sodium [Moles/Vol] 142 mmol/L Normal 136 - 145 mEq/L AH ADM SS Urea nitrogen [Mass/Vol] 34.0 mg/dL High 8.0 - 22.0 mg/dL AH ADM SS Urea nitrogen/Creatinine [Mass ratio] 22.7 ratio High 10.0 - 22.0 ratio AH ADM SS WBC (Bld) [#/Vol] 4.7 103/mcL Normal 4.5 - 10.8 10^3/mcL Workflow SS LABORATORYOrdered By: Mono Hdz on 09-23-2023 Blood Glucose Testing Reason Routine (09/23/23 7:57 AM) [facility] Work Phone: Glucose [Mass/Vol] 115 mg/dL Normal 82 - 115 mg/dL [facility] Work Phone: .Auto Diffon 09-22-2023 Basophil, Absolute 0.0 10 3/mcL Normal 0.0-0.3 [facility] ([place]) Comment on above: Performed By: #### M ORPH, GFR, CBC, ADIFF, BMP, ANEU ####[address] [address] Basophils/100 WBC (Bld) 0.2 % Normal 0.0-2.5 [facility] ([place]) Comment on above: Performed By: #### M ORPH, GFR, CBC, ADIFF, BMP, ANEU ####[address] [address] Eosinophil, Absolute 0.0 10 3/mcL Normal 0.0-0.7 [facility] ([place]) Comment on above: Performed By: #### M ORPH, GFR, CBC, ADIFF, BMP, ANEU ####[address] [address] Eosinophils/100 WBC (Bld) 0.0 % Normal 0.0-6.0 [facility] ([place]) Comment on above: Performed By: #### M ORPH, GFR, CBC, ADIFF, BMP, ANEU ####[address] [address] Lymphocyte, Absolute 0.2 10 3/mcL Low 0.9-4.3 [facility] ([place]) Comment on above: Performed By: #### M ORPH, GFR, CBC, ADIFF, BMP, ANEU ####[address] [address] Lymphocytes/100 WBC (Bld) 3.9 % Low 20.0-40.0 [facility] ([place]) Comment on above: Performed By: #### M ORPH, GFR, CBC, ADIFF, BMP, ANEU ####[address] [address] Monocyte, Absolute 0.4 10 3/mcL Normal 0.1-1.4 [facility] ([place]) Comment on above: Performed By: #### M ORPH, GFR, CBC, ADIFF, BMP, ANEU ####[address] [address] Monocytes/100 WBC (Bld) 7.7 % Normal 2.0-13.0 [facility] ([place]) Comment on above: Performed By: #### M ORPH, GFR, CBC, ADIFF, BMP, ANEU ####[address] [address] Neutrophils/100 WBC (Bld) 88.2 % High 50.0-75.0 [facility] ([place]) Comment on above: Performed By: #### M ORPH, GFR, CBC, ADIFF, BMP, ANEU ####[address] [address] .GFRon 09-22-2023 GFR 51 ml/min/1.73sqm Normal [facility] ([place]) Comment on above: Result Comment: GFR Population mean for , Non- Americans Ages 20-29 = 116 mL/min/1.73 sq.m. Ages 30-39 = 107 mL/min/1.73 sq.m. Ages 40-49 = 99 mL/min/1.73 sq.m. Ages 50-59 = 93 mL/min/1.73 sq.m. Ages 60-69 = 85 mL/min/1.73 sq.m. Ages 70+ = 75 mL/min/1.73 sq.m.Chronic Kidney Disease: Less than 60 mL/min/1.73 square metersEnd Stage Renal Disease: Less than 15 mL/min/1.73 square meters Performed By: #### M ORPH, GFR, CBC, ADIFF, BMP, ANEU ####[address] [address] GFR Non- 42 ml/min/1.73sqm Normal [facility] ([place]) Comment on above: Result Comment: GFR Population mean for , Non- Americans Ages 20-29 = 116 mL/min/1.73 sq.m. Ages 30-39 = 107 mL/min/1.73 sq.m. Ages 40-49 = 99 mL/min/1.73 sq.m. Ages 50-59 = 93 mL/min/1.73 sq.m. Ages 60-69 = 85 mL/min/1.73 sq.m. Ages 70+ = 75 mL/min/1.73 sq.m.Chronic Kidney Disease: Less than 60 mL/min/1.73 square metersEnd Stage Renal Disease: Less than 15 mL/min/1.73 square meters Performed By: #### M ORPH, GFR, CBC, ADIFF, BMP, ANEU ####[place] [address] .Morphon 09-22-2023 Anisocytosis Ql (Bld) 1+ Normal [facility] ([place]) Comment on above: Performed By: #### M ORPH, GFR, CBC, ADIFF, BMP, ANEU ####[place] [address] Ovalocytes 1+ Normal [facility] ([place]) Comment on above: Performed By: #### M ORPH, GFR, CBC, ADIFF, BMP, ANEU ####[place] [address] Platelet Estimate Slt Decreased Normal [facility] ([place]) Comment on above: Performed By: #### M ORPH, GFR, CBC, ADIFF, BMP, ANEU ####[place] [address] Poik 1+ Normal [facility] ([place]) Comment on above: Performed By: #### M ORPH, GFR, CBC, ADIFF, BMP, ANEU ####[place] [address] Polychrom 1+ Normal [facility] ([place]) Comment on above: Performed By: #### M ORPH, GFR, CBC, ADIFF, BMP, ANEU ####[place] [address] .NEUABSon 09-22-2023 Neutrophil, Absolute 5.1 10 3/mcL Normal 2.3-8.1 [facility] ([place]) Comment on above: Performed By: #### M ORPH, GFR, CBC, ADIFF, BMP, ANEU ####[place] [address] ABO/Rh (Gel)on 09-22-2023 ABO/Rh Interp Positive Invalid Interpretation Code [facility] ([place]) Comment on above: Performed By: #### A BSGEL, ABOGEL ####[place] [address] ABS (Gel)on 09-22-2023 ABSC Interp (Gel) Negative Normal [facility] ([place]) Comment on above: Performed By: #### A BSJEREMIAS CATHERINEGEL ####[address] [address] BMPon 09-22-2023 BUN/Creatinine Ratio 20.3 ratio Normal 10.0-22.0 [facility] ([place]) Comment on above: Performed By: #### M ORPH, GFR, CBC, ADIFF, BMP, ANEU ####[place] [address] Calcium [Mass/Vol] 7.7 mg/dL Low 8.7-10.4 [facility] ([place]) Comment on above: Performed By: #### M ORPH, GFR, CBC, ADIFF, BMP, ANEU ####[place] [address] Chloride [Moles/Vol] 110 mmol/L Normal 98-110 [facility] ([place] Comment on above: Performed By: #### M ORPH, GFR, CBC, ADIFF, BMP, ANEU ####[place] [address] CO2 [Moles/Vol] 23 mmol/L Normal 22-32 [facility] ([place] Comment on above: Performed By: #### M ORPH, GFR, CBC, ADIFF, BMP, ANEU ####[place] [address] Creatinine [Mass/Vol] 1.58 mg/dL High 0.60-1.40 [facility] ([place] Comment on above: Performed By: #### M ORPH, GFR, CBC, ADIFF, BMP, ANEU ####[place] [address] Electrolyte Balance 4.0 mEq/L Normal 4.0-15.0 [facility] ([place]) Comment on above: Performed By: #### M ORPH, GFR, CBC, ADIFF, BMP, ANEU ####[place] [address] Glucose [Mass/Vol] 169 mg/dL High 82-115 [facility] ([place] Comment on above: Performed By: #### M ORPH, GFR, CBC, ADIFF, BMP, ANEU ####[place] [address] Potassium [Moles/Vol] 4.5 mmol/L Normal 3.5-5.0 [facility] ([place] Comment on above: Performed By: #### M ORPH, GFR, CBC, ADIFF, BMP, ANEU ####[place] [address] Sodium [Moles/Vol] 137 mmol/L Normal 136-145 [facility] ([place] Comment on above: Performed By: #### M ORPH, GFR, CBC, ADIFF, BMP, ANEU ####[place] [address] Urea nitrogen [Mass/Vol] 32.0 mg/dL High 8.0-22.0 [facility] ([place]) Comment on above: Performed By: #### M ORPH, GFR, CBC, ADIFF, BMP, ANEU ####[place] [address] CBCon 09-22-2023 Erythrocyte distribution width (RBC) [Ratio] 14.9 % Normal 11.5-15.5 [facility] ([place] Comment on above: Performed By: #### M ORPH, GFR, CBC, ADIFF, BMP, ANEU ####[place] [address] Hematocrit (Bld) [Volume fraction] 19.9 % Low 40.0-52.0 [facility] ([place] Comment on above: Performed By: #### M ORPH, GFR, CBC, ADIFF, BMP, ANEU ####[place] [address] Hgb 6.7 G/dL Critically abnormal 13.0-17.5 [facility] ([place] Comment on above: Performed By: #### M ORPH, GFR, CBC, ADIFF, BMP, ANEU ####[place] [address] MCH (RBC) [Entitic mass] 31.0 pg Normal 27.0-33.0 [facility] ([place] Comment on above: Performed By: #### M ORPH, GFR, CBC, ADIFF, BMP, ANEU ####[place] [address] MCHC 33.9 G/dL Normal 32.0-36.0 [facility] ([place] Comment on above: Performed By: #### M ORPH, GFR, CBC, ADIFF, BMP, ANEU ####[place] [address] MCV (RBC) [Entitic vol] 91.4 fL Normal 81.0-100.0 [facility] ([place] Comment on above: Performed By: #### M ORPH, GFR, CBC, ADIFF, BMP, ANEU ####[place] [address] Platelet 139 10 3/mcL Low 150-450 [facility] ([place] Comment on above: Performed By: #### M ORPH, GFR, CBC, ADIFF, BMP, ANEU ####[place] [address] Platelet mean volume (Bld) [Entitic vol] 7.2 fL Normal 6.4-10.5 [facility] ([place] Comment on above: Performed By: #### M ORPH, GFR, CBC, ADIFF, BMP, ANEU ####[place] [address] RBC 2.18 10 6/mcL Low 4.50-6.00 [facility] ([place] Comment on above: Performed By: #### M ORPH, GFR, CBC, ADIFF, BMP, ANEU ####[place] [address] WBC 5.8 10 3/mcL Normal 4.5-10.8 [facility] ([place] Comment on above: Performed By: #### M ORPH, GFR, CBC, ADIFF, BMP, ANEU ####[place] [address] CURon 09-22-2023 CUR Normal [facility] ([place]) HHon 09-22-2023 Hematocrit (Bld) [Volume fraction] 24.3 % Low 40.0-52.0 [facility] ([place] Comment on above: Performed By: #### H H ####[place] [id number] [address] [place] [address] Hgb 8.2 G/dL Low 13.0-17.5 [facility] ([place]) Comment on above: Performed By: #### H H ####[place] [address] [address] [place] [address] LABORATORYOrdered By: Shilpa Walker on 09-22-2023 Glucose [Mass/Vol] 150 mg/dL High 82 - 115 mg/dL [facility] Work Phone: LABORATORYOrdered By: SYSTEM SYSTEM on 09-22-2023 Hematocrit (Bld) [Volume fraction] 24.3 % Low 40.0 - 52.0 % AH Workflow SS Hemoglobin (Bld) [Mass/Vol] 8.2 G/dL Low 13.0 - 17.5 G/dL AH Workflow SS Anisocytosis Ql (Bld) 1+ *NA* (09/22/23 3:40 AM) Invalid Interpretation Code AH Workflow SS Basophils (Bld) [#/Vol] 0.0 103/mcL Normal 0.0 - 0.3 10^3/mcL AH Workflow SS Basophils/100 WBC (Bld) 0.2 % Normal 0.0 - 2.5 % AH Workflow SS Calcium [Mass/Vol] 7.7 mg/dL Low 8.7 - 10. 4 mg/dL ADM SS Chloride [Moles/Vol] 110 mmol/L Normal 98 - 11 0 mEq/L ADM SS CO2 [Moles/Vol] 23 mmol/L Normal 22 - 32 mEq/L ADM SS Creatinine [Mass/Vol] 1.58 mg/dL High 0.60 - 1.40 mg/dL ADM SS Electrolyte Balance 4.0 mEq/L Normal 4.0 - 15 .0 mEq/L ADM SS Eosinophils (Bld) [#/Vol] 0.0 103/mcL Normal 0.0 - 0.7 10^3/mcL AH Workflow SS Eosinophils/100 WBC (Bld) 0.0 % Normal 0.0 - 6.0 % AH Workflow SS Erythrocyte distribution width (RBC) [Ratio] 14.9 % Normal 11.5 - 15.5 % Workflow SS GFR/1.73 sq M.predicted among blacks MDRD (S/P/Bld) [Vol rate/Area] 51 ml/min/1.73sqm Invalid Interpretation Code No Paper Just Vapor Chemistry S Comment on above: Interpretive Data: GFR Population mean for , Non- Americans Ages 20-29 = 116 mL/min/1.73 sq.m. Ages 30-39 = 107 mL/min/1.73 sq.m. Ages 40-49 = 99 mL/min/1.73 sq.m. Ages 50-59 = 93 mL/min/1.73 sq.m. Ages 60-69 = 85 mL/min/1.73 sq.m. Ages 70+ = 75 mL/min/1.73 sq.m. Chronic Kidney Disease: Less than 60 mL/min/1.73 square meters End Stage Renal Disease: Less than 15 mL/min/1.73 square meters GFR/1.73 sq M.predicted among non-blacks MDRD (S/P/Bld) [Vol rate/Area] 42 ml/min/1.73sqm Invalid Interpretation Code No Paper Just Vapor Chemistry S Comment on above: Interpretive Data: GFR Population mean for , Non- Americans Ages 20-29 = 116 mL/min/1.73 sq.m. Ages 30-39 = 107 mL/min/1.73 sq.m. Ages 40-49 = 99 mL/min/1.73 sq.m. Ages 50-59 = 93 mL/min/1.73 sq.m. Ages 60-69 = 85 mL/min/1.73 sq.m. Ages 70+ = 75 mL/min/1.73 sq.m. Chronic Kidney Disease: Less than 60 mL/min/1.73 square meters End Stage Renal Disease: Less than 15 mL/min/1.73 square meters Glucose [Mass/Vol] 169 mg/dL High 82 - 115 mg/dL ADM SS Lymphocytes (Bld) [#/Vol] 0.2 103/mcL Low 0.9 - 4.3 10^3/mcL Workflow SS Lymphocytes/100 WBC (Bld) 3.9 % Low 20.0 - 40.0 % Workflow SS MCH (RBC) [Entitic mass] 31.0 pg Normal 27.0 - 33.0 pg AH Workflow SS MCHC 33.9 G/dL Normal 32.0 - 36.0 G/dL AH Workflow SS MCV (RBC) [Entitic vol] 91.4 fL Normal 81.0 - 100.0 fL AH Workflow SS Monocytes (Bld) [#/Vol] 0.4 103/mcL Normal 0.1 - 1.4 10^3/mcL AH Workflow SS Monocytes/100 WBC (Bld) 7.7 % Normal 2.0 - 13.0 % AH Workflow SS Neutrophils (Bld) [#/Vol] 5.1 103/mcL Normal 2.3 - 8.1 10^3/mcL AH Workflow SS Neutrophils/100 WBC (Bld) 88.2 % High 50.0 - 75.0 % Workflow SS Ovalocytes LM Ql (Bld) 1+ *NA* (09/22/23 3:40 AM) Invalid Interpretation Code Workflow SS Platelet mean volume (Bld) [Entitic vol] 7.2 fL Normal 6.4 - 10.5 fL Workflow SS Platelets (Bld) [#/Vol] 139 103/mcL Low 150 - 450 10^3/mcL Workflow SS Platelets LM Ql (Bld) Slt Decreased *NA* (09/22/23 3:40 AM) Invalid Interpretation Code Workflow SS Poikilocytosis LM Ql (Bld) 1+ *NA* (09/22/23 3:40 AM) Invalid Interpretation Code Workflow SS Polychromasia LM Ql (Bld) 1+ *NA* (09/22/23 3:40 AM) Invalid Interpretation Code Workflow SS Potassium [Moles/Vol] 4.5 mmol/L Normal 3.5 - 5.0 mEq/L ADM SS RBC (Bld) [#/Vol] 2.18 106/mcL Low 4.50 - 6.0 0 10^6/mcL AH Workflow SS Sodium [Moles/Vol] 137 mmol/L Normal 136 - 145 mEq/L ADM SS Urea nitrogen [Mass/Vol] 32.0 mg/dL High 8.0 - 22.0 mg/dL ADM SS Urea nitrogen/Creatinine [Mass ratio] 20.3 ratio Normal 10.0 - 22.0 ratio ADM SS WBC (Bld) [#/Vol] 5.8 103/mcL Normal 4.5 - 10.8 10^3/mcL AH Workflow SS LABORATORYOrdered By: Stephanie Enciso on 09-22-2023 Blood Glucose Testing Reason Routine (09/22/23 8:10 AM) [facility] Work Phone: LABORATORYOrdered By: Laura Molina on 09-22-2023 ABO and Rh group Nom (Bld) Blood group A Rh(D) positive Invalid Interpretation Code AH BB Auto SS Blood group antibody screen Ql Negative ABSC (09/22/23 4:46 AM) Normal BB Auto SS LABORATORYOrdered By: Lonnie Lantigua on 09-22-2023 RBC Product Ready RBC Ready for Pickup (09/22/23 4:35 AM) Normal BB Manual SS RBC (Product)on 09-22-2023 RBC Product Ready RBC Ready for Pickup Normal [facility] ([place]) Comment on above: Performed By: #### R BCP ####[address] [address] .Auto Diffon 09-21-2023 Basophil, Absolute 0.0 10 3/mcL Normal 0.0-0.3 [facility] ([place]) Comment on above: Performed By: #### C BC, BMP, ANEU, ADIFF, HFP, GFR ####[address] [address] Basophils/100 WBC (Bld) 0.4 % Normal 0.0-2.5 [facility] ([place]) Comment on above: Performed By: #### C BC, BMP, ANEU, ADIFF, HFP, GFR ####[address] [address] Eosinophil, Absolute 0.0 10 3/mcL Normal 0.0-0.7 [facility] ([place]) Comment on above: Performed By: #### C BC, BMP, ANEU, ADIFF, HFP, GFR ####[address] [address] Eosinophils/100 WBC (Bld) 0.6 % Normal 0.0-6.0 [facility] ([place] Comment on above: Performed By: #### C BC, BMP, ANEU, ADIFF, HFP, GFR ####[address] [address] Lymphocyte, Absolute 0.2 10 3/mcL Low 0.9-4.3 [facility] ([place] Comment on above: Performed By: #### C BC, BMP, ANEU, ADIFF, HFP, GFR ####[address] [address] Lymphocytes/100 WBC (Bld) 3.5 % Low 20.0-40.0 [facility] ([place] Comment on above: Performed By: #### C BC, BMP, ANEU, ADIFF, HFP, GFR ####[address] [address] Monocyte, Absolute 0.8 10 3/mcL Normal 0.1-1.4 [facility] ([place] Comment on above: Performed By: #### C BC, BMP, ANEU, ADIFF, HFP, GFR ####[address] [address] Monocytes/100 WBC (Bld) 11.3 % Normal 2.0-13.0 [facility] ([place] Comment on above: Performed By: #### C BC, BMP, ANEU, ADIFF, HFP, GFR ####[address] [address] Neutrophils/100 WBC (Bld) 84.2 % High 50.0-75.0 [facility] ([place] Comment on above: Performed By: #### C BC, BMP, ANEU, ADIFF, HFP, GFR ####[address] [address] .GFRon 09-21-2023 GFR 38 ml/min/1.73sqm Normal [facility] ([place] Comment on above: Result Comment: GFR Population mean for , Non- Americans Ages 20-29 = 116 mL/min/1.73 sq.m. Ages 30-39 = 107 mL/min/1.73 sq.m. Ages 40-49 = 99 mL/min/1.73 sq.m. Ages 50-59 = 93 mL/min/1.73 sq.m. Ages 60-69 = 85 mL/min/1.73 sq.m. Ages 70+ = 75 mL/min/1.73 sq.m.Chronic Kidney Disease: Less than 60 mL/min/1.73 square metersEnd Stage Renal Disease: Less than 15 mL/min/1.73 square meters Performed By: #### C BC, BMP, ANEU, ADIFF, HFP, GFR ####[address] [address] GFR Non- 31 ml/min/1.73sqm Normal [facility] ([place]) Comment on above: Result Comment: GFR Population mean for , Non- Americans Ages 20-29 = 116 mL/min/1.73 sq.m. Ages 30-39 = 107 mL/min/1.73 sq.m. Ages 40-49 = 99 mL/min/1.73 sq.m. Ages 50-59 = 93 mL/min/1.73 sq.m. Ages 60-69 = 85 mL/min/1.73 sq.m. Ages 70+ = 75 mL/min/1.73 sq.m.Chronic Kidney Disease: Less than 60 mL/min/1.73 square metersEnd Stage Renal Disease: Less than 15 mL/min/1.73 square meters Performed By: #### C BC, BMP, ANEU, ADIFF, HFP, GFR ####[address] [address] .NEUABSon 09-21-2023 Neutrophil, Absolute 5.7 10 3/mcL Normal 2.3-8.1 [facility] ([place] Comment on above: Performed By: #### C BC, BMP, ANEU, ADIFF, HFP, GFR ####[address] [address] BMPon 09-21-2023 BUN/Creatinine Ratio 16.2 ratio Normal 10.0-22.0 [facility] ([place]) Comment on above: Order Comment: Adriana perez for 0501 the morning of patient admission. Performed By: #### C BC, BMP, ANEU, ADIFF, HFP, GFR ####[address] [address] Calcium [Mass/Vol] 8.0 mg/dL Low 8.7-10.4 [facility] ([place] Comment on above: Order Comment: Routi ne for 0501 the morning of patient admission. Performed By: #### C BC, BMP, ANEU, ADIFF, HFP, GFR ####[address] [address] Chloride [Moles/Vol] 108 mmol/L Normal 98-110 [facility] ([place] Comment on above: Order Comment: Routi ne for 0501 the morning of patient admission. Performed By: #### C BC, BMP, ANEU, ADIFF, HFP, GFR ####[address] [address] CO2 [Moles/Vol] 24 mmol/L Normal 22-32 [facility] ([place] Comment on above: Order Comment: Routi ne for 0501 the morning of patient admission. Performed By: #### C BC, BMP, ANEU, ADIFF, HFP, GFR ####[place] [id number] Creatinine [Mass/Vol] 2.04 mg/dL High 0.60-1.40 [facility] ([place]) Comment on above: Order Comment: Routi ne for 0501 the morning of patient admission. Performed By: #### C BC, BMP, ANEU, ADIFF, HFP, GFR ####[place] [address] Electrolyte Balance 7.0 mEq/L Normal 4.0-15.0 [facility] ([place]) Comment on above: Order Comment: Routi ne for 0501 the morning of patient admission. Performed By: #### C BC, BMP, ANEU, ADIFF, HFP, GFR ####[place] [address] Glucose [Mass/Vol] 127 mg/dL High 82-115 [facility] ([place] Comment on above: Order Comment: Routi ne for 0501 the morning of patient admission. Performed By: #### C BC, BMP, ANEU, ADIFF, HFP, GFR ####[place] [id number] Potassium [Moles/Vol] 4.5 mmol/L Normal 3.5-5.0 [facility] ([place] Comment on above: Order Comment: Routi ne for 0501 the morning of patient admission. Performed By: #### C BC, BMP, ANEU, ADIFF, HFP, GFR ####[place] [address] Sodium [Moles/Vol] 139 mmol/L Normal 136-145 [facility] ([place] Comment on above: Order Comment: Routi ne for 0501 the morning of patient admission. Performed By: #### C BC, BMP, ANEU, ADIFF, HFP, GFR ####[place] [address] Urea nitrogen [Mass/Vol] 33.0 mg/dL High 8.0-22.0 [facility] ([place] Comment on above: Order Comment: Routi ne for 0501 the morning of patient admission. Performed By: #### C BC, BMP, ANEU, ADIFF, HFP, GFR ####[place] [address] CBCon 09-21-2023 Erythrocyte distribution width (RBC) [Ratio] 15.0 % Normal 11.5-15.5 [facility] ([place]) Comment on above: Order Comment: Routi ne for 0501 the morning of patient admission. Performed By: #### C BC, BMP, ANEU, ADIFF, HFP, GFR ####[place] [address] Hematocrit (Bld) [Volume fraction] 21.9 % Low 40.0-52.0 [facility] ([place]) Comment on above: Order Comment: Routi ne for 0501 the morning of patient admission. Performed By: #### C BC, BMP, ANEU, ADIFF, HFP, GFR ####[place] [address] Hgb 7.3 G/dL Low 13.0-17.5 [facility] ([place]) Comment on above: Order Comment: Routi ne for 0501 the morning of patient admission. Performed By: #### C BC, BMP, ANEU, ADIFF, HFP, GFR ####[place] [address] MCH (RBC) [Entitic mass] 30.7 pg Normal 27.0-33.0 [facility] ([place]) Comment on above: Order Comment: Routi ne for 0501 the morning of patient admission. Performed By: #### C BC, BMP, ANEU, ADIFF, HFP, GFR ####[place] [address] MCHC 33.3 G/dL Normal 32.0-36.0 [facility] ([place]) Comment on above: Order Comment: Routi ne for 0501 the morning of patient admission. Performed By: #### C BC, BMP, ANEU, ADIFF, HFP, GFR ####[place] [address] MCV (RBC) [Entitic vol] 92.0 fL Normal 81.0-100.0 [facility] ([place]) Comment on above: Order Comment: Routi ne for 0501 the morning of patient admission. Performed By: #### C BC, BMP, ANEU, ADIFF, HFP, GFR ####[place] [address] Platelet 161 10 3/mcL Normal 150-450 [facility] ([place]) Comment on above: Order Comment: Routi ne for 0501 the morning of patient admission. Performed By: #### C BC, BMP, ANEU, ADIFF, HFP, GFR ####[place] [address] Platelet mean volume (Bld) [Entitic vol] 7.2 fL Normal 6.4-10.5 [facility] ([place]) Comment on above: Order Comment: Routi ne for 0501 the morning of patient admission. Performed By: #### C BC, BMP, ANEU, ADIFF, HFP, GFR ####[place] [address] RBC 2.38 10 6/mcL Low 4.50-6.00 [facility] ([place]) Comment on above: Order Comment: Routi ne for 0501 the morning of patient admission. Performed By: #### C BC, BMP, ANEU, ADIFF, HFP, GFR ####[address] [address] WBC 6.8 10 3/mcL Normal 4.5-10.8 [facility] ([place]) Comment on above: Order Comment: Adriana perez for 0501 the morning of patient admission. Performed By: #### C BC, BMP, ANEU, ADIFF, HFP, GFR ####[place] [address] HFPon 09-21-2023 Bili Indirect 0.3 mg/dL Normal 0.1-10.0 [facility] ([place] Comment on above: Performed By: #### C BC, BMP, ANEU, ADIFF, HFP, GFR ####[place] [address] Albumin Level 2.5 G/dL Low 3.2-4.8 [facility] ([place] Comment on above: Performed By: #### C BC, BMP, ANEU, ADIFF, HFP, GFR ####[place] [address] Albumin/Globulin [Mass ratio] 0.9 {ratio} Normal 0.9-1.6 [facility] ([place] Comment on above: Performed By: #### C BC, BMP, ANEU, ADIFF, HFP, GFR ####[place] [address] ALP [Catalytic activity/Vol] 49 U/L Normal 38-126 [facility] ([place] Comment on above: Performed By: #### C BC, BMP, ANEU, ADIFF, HFP, GFR ####[place] [address] ALT [Catalytic activity/Vol] 11 U/L Low 12-55 [facility] ([place] Comment on above: Performed By: #### C BC, BMP, ANEU, ADIFF, HFP, GFR ####[place] [address] AST [Catalytic activity/Vol] 22 U/L Normal 8-34 [facility] ([place] Comment on above: Performed By: #### C BC, BMP, ANEU, ADIFF, HFP, GFR ####[place] [address] Bili Direct 0.1 mg/dL Normal 0.0-0.4 [facility] ([place] Comment on above: Result Comment: Use of this assay is not recommended for patients undergoing treatment with eltrombopag due to the potential for falsely elevated results. Performed By: #### C BC, BMP, ANEU, ADIFF, HFP, GFR ####[place] [address] Bili Total 0.40 mg/dL Normal 0.20-1.20 [facility] ([place]) Comment on above: Result Comment: Use of this assay is not recommended for patients undergoing treatment with eltrombopag due to the potential for falsely elevated results. Performed By: #### C BC, BMP, ANEU, ADIFF, HFP, GFR ####[place] [id number] [place] [address] Globulin 2.9 G/dL Normal 1.5-3.8 [facility] ([place] Comment on above: Performed By: #### C BC, BMP, ANEU, ADIFF, HFP, GFR ####[place] [address] Total Protein 5.4 G/dL Low 5.7-8.2 [facility] ([place]) Comment on above: Result Comment: No te - New Reference Range in effect 20 Performed By: #### C BC, BMP, ANEU, ADIFF, HFP, GFR ####[place] [address] LABORATORYOrdered By: Sally stephenson on 09-21-2023 Blood Glucose Testing Reason Routine (09/21/23 9:39 PM) [facility] Work Phone: LABORATORYOrdered By: Beverly Vail on 09-21-2023 Lactate [Moles/Vol] 1.1 mmol/L Normal 0.2 - 2. 0 mmol/L Auto Chem SS LABORATORYOrdered By: SYSTEM SYSTEM on 09-21-2023 Albumin BCP dye [Mass/Vol] 2.5 G/dL Low 3.2 - 4.8 G/dL ADM SS Albumin/Globulin [Mass ratio] 0.9 {ratio} Normal 0.9 - 1.6 ratio AH ADM SS ALP [Catalytic activity/Vol] 49 U/L Normal 38 - 126 U/L ADM SS ALT No additional P-5'-P [Catalytic activity/Vol] 11 U/L Low 12 - 55 U/L ADM SS AST [Catalytic activity/Vol] 22 U/L Normal 8 - 34 U/L ADM SS Basophils (Bld) [#/Vol] 0.0 103/mcL Normal 0.0 - 0.3 10^3/mcL Workflow SS Basophils/100 WBC (Bld) 0.4 % Normal 0.0 - 2.5 % Workflow SS Bili Indirect 0.3 mg/dL Normal 0.1 - 10.0 mg/dL Chemistry S Bilirubin [Mass/Vol] 0.40 mg/dL Normal 0.20 - 1.20 mg/dL ADM SS Comment on above: Interpretive Data: U se of this assay is not recommended for patients undergoing treatment with eltrombopag due to the potential for falsely elevated results. Bilirubin.conjugated [Mass/Vol] 0.1 mg/dL Normal 0.0 - 0.4 mg/dL ADM SS Comment on above: Interpretive Data: U se of this assay is not recommended for patients undergoing treatment with eltrombopag due to the potential for falsely elevated results. Calcium [Mass/Vol] 8.0 mg/dL Low 8.7 - 10. 4 mg/dL ADM SS Chloride [Moles/Vol] 108 mmol/L Normal 98 - 11 0 mEq/L ADM SS CO2 [Moles/Vol] 24 mmol/L Normal 22 - 32 mEq/L ADM SS Creatinine [Mass/Vol] 2.04 mg/dL High 0.60 - 1.40 mg/dL ADM SS Electrolyte Balance 7.0 mEq/L Normal 4.0 - 15 .0 mEq/L ADM SS Eosinophils (Bld) [#/Vol] 0.0 103/mcL Normal 0.0 - 0.7 10^3/mcL Workflow SS Eosinophils/100 WBC (Bld) 0.6 % Normal 0.0 - 6.0 % Workflow SS Erythrocyte distribution width (RBC) [Ratio] 15.0 % Normal 11.5 - 15.5 % Workflow SS GFR/1.73 sq M.predicted among blacks MDRD (S/P/Bld) [Vol rate/Area] 38 ml/min/1.73sqm Invalid Interpretation Code No Paper Just Vapor Chemistry S Comment on above: Interpretive Data: GFR Population mean for , Non- Americans Ages 20-29 = 116 mL/min/1.73 sq.m. Ages 30-39 = 107 mL/min/1.73 sq.m. Ages 40-49 = 99 mL/min/1.73 sq.m. Ages 50-59 = 93 mL/min/1.73 sq.m. Ages 60-69 = 85 mL/min/1.73 sq.m. Ages 70+ = 75 mL/min/1.73 sq.m. Chronic Kidney Disease: Less than 60 mL/min/1.73 square meters End Stage Renal Disease: Less than 15 mL/min/1.73 square meters GFR/1.73 sq M.predicted among non-blacks MDRD (S/P/Bld) [Vol rate/Area] 31 ml/min/1.73sqm Invalid Interpretation Code No Paper Just Vapor Chemistry S Comment on above: Interpretive Data: GFR Population mean for , Non- Americans Ages 20-29 = 116 mL/min/1.73 sq.m. Ages 30-39 = 107 mL/min/1.73 sq.m. Ages 40-49 = 99 mL/min/1.73 sq.m. Ages 50-59 = 93 mL/min/1.73 sq.m. Ages 60-69 = 85 mL/min/1.73 sq.m. Ages 70+ = 75 mL/min/1.73 sq.m. Chronic Kidney Disease: Less than 60 mL/min/1.73 square meters End Stage Renal Disease: Less than 15 mL/min/1.73 square meters Globulin 2.9 G/dL Normal 1.5 - 3.8 G/dL ADM SS Glucose [Mass/Vol] 127 mg/dL High 82 - 115 mg/dL ADM SS Lymphocytes (Bld) [#/Vol] 0.2 103/mcL Low 0.9 - 4.3 10^3/mcL Workflow SS Lymphocytes/100 WBC (Bld) 3.5 % Low 20.0 - 40.0 % Workflow SS MCH (RBC) [Entitic mass] 30.7 pg Normal 27.0 - 33.0 pg AH Workflow SS MCHC 33.3 G/dL Normal 32.0 - 36.0 G/dL AH Workflow SS MCV (RBC) [Entitic vol] 92.0 fL Normal 81.0 - 100.0 fL AH Workflow SS Monocytes (Bld) [#/Vol] 0.8 103/mcL Normal 0.1 - 1.4 10^3/mcL AH Workflow SS Monocytes/100 WBC (Bld) 11.3 % Normal 2.0 - 13.0 % AH Workflow SS Neutrophils (Bld) [#/Vol] 5.7 103/mcL Normal 2.3 - 8.1 10^3/mcL AH Workflow SS Neutrophils/100 WBC (Bld) 84.2 % High 50.0 - 75.0 % AH Workflow SS Platelet mean volume (Bld) [Entitic vol] 7.2 fL Normal 6.4 - 10.5 fL AH Workflow SS Platelets (Bld) [#/Vol] 161 103/mcL Normal 150 - 450 10^3/mcL AH Workflow SS Potassium [Moles/Vol] 4.5 mmol/L Normal 3.5 - 5.0 mEq/L AH ADM SS Protein [Mass/Vol] 5.4 G/dL Low 5.7 - 8.2 G/dL AH ADM SS Comment on above: Interpretive Data: * *Note - New Reference Range in effect 20 RBC (Bld) [#/Vol] 2.38 106/mcL Low 4.50 - 6.0 0 10^6/mcL AH Workflow SS Sodium [Moles/Vol] 139 mmol/L Normal 136 - 145 mEq/L AH ADM SS Urea nitrogen [Mass/Vol] 33.0 mg/dL High 8.0 - 22.0 mg/dL AH ADM SS Urea nitrogen/Creatinine [Mass ratio] 16.2 ratio Normal 10.0 - 22.0 ratio AH ADM SS WBC (Bld) [#/Vol] 6.8 103/mcL Normal 4.5 - 10.8 10^3/mcL AH Workflow SS LACon 09-21-2023 Lactic Acid Lvl 1.1 mmol/L Normal 0.2-2.0 [facility] ([place]) Comment on above: Performed By: #### L AC ####[place] [address] No Panel Informationon 09-21 Microscopic examination of blood, culture Culture has been received in lab and is no growth to date. Routine cultures are held for 5 days. [facility] Work Phone: XR RETROGRADE PYELOGRAMon XR RETROGRADE PYELOGRAM Normal [facility] ([place]) .Auto Diffon 09-20-2023 Basophil, Absolute 0.0 10 3/mcL Normal 0.0-0.2 [facility] ([place]) Comment on above: Performed By: #### C HEBER BACON, ERICK, ADIFF, GFR, ANEU ####[address] [place], [place] [address] Basophils/100 WBC (Bld) 0.4 % Normal 0.0-2.5 [facility] ([place]) Comment on above: Performed By: #### C HEBER BACON, ERICK, ADIFF, GFR, ANEU ####[address] [place], [place] [address] Eosinophil, Absolute 0.1 10 3/mcL Normal 0.0-0.4 [facility] ([place]) Comment on above: Performed By: #### C HEBER BACON, ERICK, ADIFF, GFR, ANEU ####[address] [place], [place] [address] Eosinophils/100 WBC (Bld) 2.4 % Normal 0.0-7.0 [facility] ([place]) Comment on above: Performed By: #### C HEBER BACON MDW, ADIFF, GFR, ANEU ####[address] [place], [place] [address] Lymphocyte, Absolute 0.3 10 3/mcL Low 0.8-3.9 [facility] ([place]) Comment on above: Performed By: #### C HEBER BACON, ERICK, ADIFF, GFR, ANEU ####[address] [place], [place] [address] Lymphocytes/100 WBC (Bld) 5.4 % Low 10.0-50.0 [facility] ([place]) Comment on above: Performed By: #### C HEBER BACONERICK, ADIFF, GFR, ANEU ####[address] [place], [place] [address] Monocyte, Absolute 0.5 10 3/mcL Normal 0.2-1.0 [facility] ([place] Comment on above: Performed By: #### C HEBER BACON, ERICK, ADIFF, GFR, ANEU ####[address] [place], [place] [address] Monocytes/100 WBC (Bld) 9.9 % Normal 1.7-13.0 [facility] ([place]) Comment on above: Performed By: #### C JORDI, HEBER, ERICK, ADIFF, GFR, ANEU ####[address] [place], [place] [address] Neutrophils/100 WBC (Bld) 81.9 % High 37.0-80.0 [facility] ([place]) Comment on above: Performed By: #### C HEBER BACON, ERICK, ADIFF, GFR, ANEU ####[address] [place], [place] [address] .GFRon 09-20-2023 GFR 33 ml/min/1.73sqm Normal [facility] ([place]) Comment on above: Result Comment: GFR Population mean for , Non- Americans Ages 20-29 = 116 mL/min/1.73 sq.m. Ages 30-39 = 107 mL/min/1.73 sq.m. Ages 40-49 = 99 mL/min/1.73 sq.m. Ages 50-59 = 93 mL/min/1.73 sq.m. Ages 60-69 = 85 mL/min/1.73 sq.m. Ages 70+ = 75 mL/min/1.73 sq.m.Chronic Kidney Disease: Less than 60 mL/min/1.73 square metersEnd Stage Renal Disease: Less than 15 mL/min/1.73 square meters Performed By: #### C JORDI, HEBER, ERICK, ADIFF, GFR, ANEU ####[address] [place], [place] [address] GFR Non- 27 ml/min/1.73sqm Normal [facility] ([place]) Comment on above: Result Comment: GFR Population mean for , Non- Americans Ages 20-29 = 116 mL/min/1.73 sq.m. Ages 30-39 = 107 mL/min/1.73 sq.m. Ages 40-49 = 99 mL/min/1.73 sq.m. Ages 50-59 = 93 mL/min/1.73 sq.m. Ages 60-69 = 85 mL/min/1.73 sq.m. Ages 70+ = 75 mL/min/1.73 sq.m.Chronic Kidney Disease: Less than 60 mL/min/1.73 square metersEnd Stage Renal Disease: Less than 15 mL/min/1.73 square meters Performed By: #### C HEBER BACON, ERICK, ADIFF, GFR, ANEU ####[address] [place] [id number] .MDWon 09-20-2023 Monocyte Distribution Width 18.86 Normal 0.00-20.00 [facility] ([place]) Comment on above: Result Comment: For ED adult patients suspected of sepsis, MDW<=20.0 does not rule out sepsis or risk of sepsis Performed By: #### C JORDI, HEBER, ERICK, ADIFF, GFR, ANEU ####[address] [place] [address] .NEUABSon 09-20-2023 Neutrophil, Absolute 4.1 10 3/mcL Normal 2.9-6.2 [facility] ([place]) Comment on above: Performed By: #### C HEBER BACON, ERICK, ADIFF, GFR, ANEU ####[address] [place] [id number] .Urinalysis Microscopic (AO) on 09-20-2023 UA Bacteria 3+ /hpf Abnormal [facility] ([place]) Comment on above: Performed By: #### U A, UAMICAO ####[address] [place] [id number] UA RBC 15-25 Abnormal None Seen [facility] ([place] Comment on above: Performed By: #### U A, UAMICAO ####[address] [place] [address] UA Squam Epithelial 0-5 Abnormal None Seen [facility] ([place]) Comment on above: Performed By: #### U Kerri UAMICAO ####[address] [place], [place] [address] UA WBC LOADED Abnormal None Seen [facility] ([place] Comment on above: Performed By: #### U Kerri UAMICAO ####[address] [place], [place] [address] BMPon 09-20-2023 BUN/Creatinine Ratio 17 ratio Normal 7-27 [facility] ([place]) Comment on above: Performed By: #### C HEBER BACON MDW, EZRA, GFR, ANEU ####[address] [place], [place] [address] Calcium [Mass/Vol] 8.8 mg/dL Normal 8.4-10.2 [facility] ([place] Comment on above: Performed By: #### C HEBER BACON MDW, EZRA, GFR, ANEU ####[address] [place], [place] [address] Chloride [Moles/Vol] 104 mmol/L Normal 98-107 [facility] ([place] Comment on above: Performed By: #### C HEBER BACON MDW, EZRA, GFR, ANEU ####[address] [place], [place] [address] CO2 [Moles/Vol] 24 mmol/L Normal 23-31 [facility] ([place]) Comment on above: Performed By: #### C HEBER BACON MDW, EZRA, GFR, ANEU ####[address] [place], [place] [address] Creatinine [Mass/Vol] 2.28 mg/dL High 0.70-1.30 [facility] ([place]) Comment on above: Performed By: #### C HEBER BACON MDW, ADSERGEI, GFR, ANEU ####[address] [place], [place] [address] Electrolyte Balance 13.0 mEq/L Normal 4.0-15.0 [facility] ([place]) Comment on above: Performed By: #### C JORDI, HEBER, ERICK, ADIFF, GFR, ANEU ####[address] [place], [place] [address] Glucose [Mass/Vol] 191 mg/dL High 83-110 [facility] ([place] Comment on above: Performed By: #### C JORDI, HEBER, ERICK, ADIFF, GFR, ANEU ####[address] [place], [place] [address] Potassium [Moles/Vol] 4.7 mmol/L Normal 3.5-5.1 [facility] ([place] Comment on above: Performed By: #### C JORDI, HEBER, ERICK, ADIFF, GFR, ANEU ####[address] [place], [place] [address] Sodium [Moles/Vol] 141 mmol/L Normal 136-145 [facility] ([place] Comment on above: Performed By: #### C HEBER BACON, ERICK, ADIFF, GFR, ANEU ####[address] [place], [place] [address] Urea nitrogen [Mass/Vol] 39 mg/dL High 7-18 [facility] ([place] Comment on above: Performed By: #### C HEBER BACON, ERICK, ADIFF, GFR, ANEU ####[address] [place], [place] [address] CBCon 09-20-2023 Erythrocyte distribution width (RBC) [Ratio] 15.4 % High 11.5-14.5 [facility] ([place]) Comment on above: Performed By: #### C JORDI, HEBER, ERICK, ADIFF, GFR, ANEU ####[address] [place], [place] [address] Hematocrit (Bld) [Volume fraction] 26.6 % Low 42.0-52.0 [facility] ([place] Comment on above: Performed By: #### C JORDI, HEBER, ERICK, ADIFF, GFR, ANEU ####[address] [place], [place] [address] Hgb 9.0 G/dL Low 14.0-18.0 [facility] ([place] Comment on above: Performed By: #### C JORDI, HEBER, ERICK, ADIFF, GFR, ANEU ####[address] [place], [place] [address] MCH (RBC) [Entitic mass] 31.0 pg Normal 27.0-31.2 [facility] ([place] Comment on above: Performed By: #### C JORDI, HEBER, ERICK, ADIFF, GFR, ANEU ####[address] [place], [place] [address] MCHC 33.9 G/dL Normal 31.8-35.4 [facility] ([place] Comment on above: Performed By: #### C HEBER BACON, ERICK, ADIFF, GFR, ANEU ####[address] [place], [place] [address] MCV (RBC) [Entitic vol] 91.3 fL Normal 80.0-94.0 [facility] ([place] Comment on above: Performed By: #### C HEBER BACON, ERICK, ADIFF, GFR, ANEU ####[address] [place], [place] [address] Platelet 198 10 3/mcL Normal 130-400 [facility] ([place]) Comment on above: Performed By: #### C HEBER BACON, ERICK, ADIFF, GFR, ANEU ####[address] [place], [place] [address] Platelet mean volume (Bld) [Entitic vol] 6.7 fL Low 7.4-10.4 [facility] ([place] Comment on above: Performed By: #### C JORDI, HEBER, ERICK, ADIFF, GFR, ANEU ####[address] [place], [place] [address] RBC 2.91 10 6/mcL Low 4.04-6.13 [facility] ([place] Comment on above: Performed By: #### C JORDI, HEBER, ERICK, ADIFF, GFR, ANEU ####[address] [place], [place] [address] WBC 5.1 10 3/mcL Normal 4.6-10.8 [facility] ([place] Comment on above: Performed By: #### C JORDI, HEBER, ERICK, EZRA, GFR, ANEU ####[address] [place], [place] [address] CT ABDOMEN/PELVIS W/O CONTRA STon 09-20-2023 CT ABDOMEN/PELVIS W/O CONTRAST Normal [facility] ([place]) LABORATORYOrdered By: SYSTEM SYSTEM on 09-20-2023 Basophil, Absolute 0.0 103/mcL Normal 0.0 - 0.2 10^3/mcL AO Workflow SS Basophils/100 WBC (Bld) 0.4 % Normal 0.0 - 2.5 % AO Workflow SS Calcium [Mass/Vol] 8.8 mg/dL Normal 8.4 - 10. 2 mg/dL AO ADM SS Chloride [Moles/Vol] 104 mmol/L Normal 98 - 10 7 mmol/L AO ADM SS CO2 [Moles/Vol] 24 mmol/L Normal 23 - 31 mmol/L AO ADM SS Creatinine [Mass/Vol] 2.28 mg/dL High 0.70 - 1.30 mg/dL AO ADM SS Electrolyte Balance 13.0 mEq/L Normal 4.0 - 15 .0 mEq/L AO ADM SS Eosinophil, Absolute 0.1 103/mcL Normal 0.0 - 0 .4 10^3/mcL AO Workflow SS Eosinophils/100 WBC (Bld) 2.4 % Normal 0.0 - 7.0 % AO Workflow SS Erythrocyte distribution width (RBC) [Ratio] 15.4 % High 11.5 - 14.5 % AO Workflow SS GFR/1.73 sq M.predicted among blacks MDRD (S/P/Bld) [Vol rate/Area] 33 ml/min/1.73sqm Invalid Interpretation Code AO Chemistry S Comment on above: Interpretive Data: GFR Population mean for , Non- Americans Ages 20-29 = 116 mL/min/1.73 sq.m. Ages 30-39 = 107 mL/min/1.73 sq.m. Ages 40-49 = 99 mL/min/1.73 sq.m. Ages 50-59 = 93 mL/min/1.73 sq.m. Ages 60-69 = 85 mL/min/1.73 sq.m. Ages 70+ = 75 mL/min/1.73 sq.m. Chronic Kidney Disease: Less than 60 mL/min/1.73 square meters End Stage Renal Disease: Less than 15 mL/min/1.73 square meters GFR/1.73 sq M.predicted among non-blacks MDRD (S/P/Bld) [Vol rate/Area] 27 ml/min/1.73sqm Invalid Interpretation Code AO Chemistry S Comment on above: Interpretive Data: GFR Population mean for , Non- Americans Ages 20-29 = 116 mL/min/1.73 sq.m. Ages 30-39 = 107 mL/min/1.73 sq.m. Ages 40-49 = 99 mL/min/1.73 sq.m. Ages 50-59 = 93 mL/min/1.73 sq.m. Ages 60-69 = 85 mL/min/1.73 sq.m. Ages 70+ = 75 mL/min/1.73 sq.m. Chronic Kidney Disease: Less than 60 mL/min/1.73 square meters End Stage Renal Disease: Less than 15 mL/min/1.73 square meters Glucose [Mass/Vol] 191 mg/dL High 83 - 110 mg/dL AO ADM SS Hematocrit (Bld) [Volume fraction] 26.6 % Low 42.0 - 52.0 % AO Workflow SS Hemoglobin (Bld) [Mass/Vol] 9.0 G/dL Low 14.0 - 18.0 G/dL AO Workflow SS Lactate [Moles/Vol] 1.2 mmol/L Normal 0.4 - 2. 0 mmol/L AO ADM SS Lymphocyte, Absolute 0.3 103/mcL Low 0.8 - 3 .9 10^3/mcL AO Workflow SS Lymphocytes/100 WBC (Bld) 5.4 % Low 10.0 - 50.0 % AO Workflow SS MCH (RBC) [Entitic mass] 31.0 pg Normal 27.0 - 31.2 pg AO Workflow SS MCHC 33.9 G/dL Normal 31.8 - 35.4 G/dL AO Workflow SS MCV (RBC) [Entitic vol] 91.3 fL Normal 80.0 - 94.0 fL AO Workflow SS Monocyte distribution width Auto (Bld) [Entitic vol] 18.86 1 Normal 0.00 - 20.00 AO Workflow SS Comment on above: Result Comment: For ED adult patients suspected of sepsis, W<=20.0 does not rule out sepsis or risk of sepsis Monocyte, Absolute 0.5 103/mcL Normal 0.2 - 1.0 10^3/mcL AO Workflow SS Monocytes/100 WBC (Bld) 9.9 % Normal 1.7 - 13.0 % AO Workflow SS Neutrophil, Absolute 4.1 103/mcL Normal 2.9 - 6 .2 10^3/mcL AO Workflow SS Neutrophils/100 WBC (Bld) 81.9 % High 37.0 - 80.0 % AO Workflow SS Platelet mean volume (Bld) [Entitic vol] 6.7 fL Low 7.4 - 10.4 fL AO Workflow SS Platelets (Bld) [#/Vol] 198 103/mcL Normal 130 - 400 10^3/mcL AO Workflow SS Potassium [Moles/Vol] 4.7 mmol/L Normal 3.5 - 5.1 mmol/L AO ADM SS RBC (Bld) [#/Vol] 2.91 106/mcL Low 4.04 - 6.1 3 10^6/mcL AO Workflow SS Sodium [Moles/Vol] 141 mmol/L Normal 136 - 145 mmol/L AO ADM SS Urea nitrogen [Mass/Vol] 39 mg/dL High 7 - 18 mg/dL AO ADM SS Urea nitrogen/Creatinine [Mass ratio] 17 ratio Normal 7 - 27 ratio AO ADM SS WBC (Bld) [#/Vol] 5.1 103/mcL Normal 4.6 - 10.8 10^3/mcL AO Workflow SS LABORATORYOrdered By: Barbara Hinson on 09-20-2023 Appearance (U) Cloudy *ABN* (09/20/23 8:35 AM) Invalid Interpretation Code Clear AO Auto Urine SS Bacteria LM.HPF (Urine sed) [#/Area] 3 /[HPF] Invalid Interpretation Code AO Auto Urine SS Bilirubin Ql (U) Negative (09/20/23 8:35 AM) Normal Negative AO Auto Urine SS Color (U) Yellow (09/20/23 8:35 AM) Normal AO Auto Urine SS Glucose Test strip (U) [Mass/Vol] Negative Normal Negative AO Auto Urine SS Hemoglobin Auto test strip (U) [Mass/Vol] Moderate *ABN* (09/20/23 8:35 AM) Invalid Interpretation Code Negative AO Auto Urine SS Ketones Ql (U) Negative Normal Negative AO Auto Urine SS UA Leuk Est Moderate *ABN* (09/20/23 8:35 AM) Invalid Interpretation Code Negative AO Auto Urine SS UA Nitrite Negative (09/20/23 8:35 AM) Normal Negative AO Auto Urine SS UA pH 5.5 (09/20/23 8:35 AM) Normal 5.0 - 8.0 AO Auto Urine SS UA Protein 30 mg/dL Normal Negative AO Auto Urine SS UA RBC 15-25 /HPF Invalid Interpretation Code None Seen AO Auto Urine SS UA Spec Grav 1.020 (09/20/23 8:35 AM) Normal 1.015-1.025 AO Auto Urine SS UA Specimen Type Clean Catch (09/20/23 8:35 AM) Normal AO Auto Urine SS UA Squam Epithelial 0-5 /HPF Invalid Interpretation Code None Seen AO Auto Urine SS UA Urobilinogen 0.2 E.U./dL Normal 0.2-1.0 AO Auto Urine SS WBC LM.HPF (Urine sed) [#/Area] LOADED /HPF Invalid Interpretation Code None Seen AO Auto Urine SS LACon 09-20-2023 Lactic Acid Lvl 1.2 mmol/L Normal 0.4-2.0 [facility] ([place] Comment on above: Performed By: #### L AC ####[address] [place], [place] [address] UAon 09-20-2023 Color (U) Yellow Normal [facility] ([place] Comment on above: Performed By: #### U A, UAMICAO ####[address] [place], [place] [address] Glucose (U) [Mass/Vol] Negative Normal Negative [facility] ([place] Comment on above: Performed By: #### U A, UAMICAO ####[address] [place], [place] [address] Ketones Ql (U) Negative Normal Negative [facility] ([place] Comment on above: Performed By: #### U A, UAMICAO ####[address] [place], [place] [address] UA Appear Cloudy Abnormal Clear [facility] ([place] Comment on above: Performed By: #### U A, UAMICAO ####[address] [place], [place] [address] UA Blood Moderate Abnormal Negative [facility] ([place]) Comment on above: Performed By: #### U A, UAMICAO ####[address] [place], [place] [address] UA Leuk Est Moderate Abnormal Negative [facility] ([place]) Comment on above: Performed By: #### U A, UAMICAO ####[address] [place], [place] [address] UA Nitrite Negative Normal Negative [facility] ([place]) Comment on above: Performed By: #### U A, UAMICAO ####[address] [place] [id number] UA pH 5.5 Normal 5.0 - 8.0 [facility] ([place]) Comment on above: Performed By: #### U A, UAMICAO ####[address] [place] [address] UA Protein 30 mg/dL Normal Negative [facility] ([place]) Comment on above: Performed By: #### U A, UAMICAO ####[address] [place], [place] [address] UA Spec Grav 1.020 Normal 1.015-1.025 [facility] ([place]) Comment on above: Performed By: #### U A, UAMICAO ####[address] [place], [place] [address] UA Specimen Type Clean Catch Normal [facility] ([place]) Comment on above: Performed By: #### U A, UAMICAO ####[address] [place], [place] [address] UA Urobilinogen 0.2 E.U./dL Normal 0.2-1.0 [facility] ([place]) Comment on above: Performed By: #### U A, UAMICAO ####[address] [place], [place] [address] Urobilinogen (U) [Mass/Vol] Negative Normal Negative [facility] ([place]) Comment on above: Performed By: #### U A, UAMICAO ####[facility] [place], [place] [address] .Auto Diffon 09-06-2023 Basophil, Absolute 0.0 10 3/mcL Normal 0.0-0.3 [facility] ([place]) Comment on above: Performed By: #### M DW, GFR, ADIFF, CBC, BMP, ANEU, TROPHS ####[address] [address] Basophils/100 WBC (Bld) 0.6 % Normal 0.0-2.5 [facility] ([place]) Comment on above: Performed By: #### M DW, GFR, ADIFF, CBC, BMP, ANEU, TROPHS ####[address] [address] Eosinophil, Absolute 0.3 10 3/mcL Normal 0.0-0.7 [facility] ([place]) Comment on above: Performed By: #### M DW, GFR, ADIFF, CBC, BMP, ANEU, TROPHS ####[address] [address] Eosinophils/100 WBC (Bld) 6.7 % High 0.0-6.0 [facility] ([place]) Comment on above: Performed By: #### M DW, GFR, ADIFF, CBC, BMP, ANEU, TROPHS ####[address] [address] Lymphocyte, Absolute 0.4 10 3/mcL Low 0.9-4.3 [facility] ([place]) Comment on above: Performed By: #### M DW, GFR, ADIFF, CBC, BMP, ANEU, TROPHS ####[address] [address] Lymphocytes/100 WBC (Bld) 9.9 % Low 20.0-40.0 [facility] ([place]) Comment on above: Performed By: #### M DW, GFR, ADIFF, CBC, BMP, ANEU, TROPHS ####[address] [address] Monocyte, Absolute 0.6 10 3/mcL Normal 0.1-1.4 [facility] ([place]) Comment on above: Performed By: #### M DW, GFR, ADIFF, CBC, BMP, ANEU, TROPHS ####[address] [address] Monocytes/100 WBC (Bld) 14.0 % High 2.0-13.0 [facility] ([place]) Comment on above: Performed By: #### M DW, GFR, ADIFF, CBC, BMP, ANEU, TROPHS ####[address] [address] Neutrophils/100 WBC (Bld) 68.8 % Normal 50.0-75.0 [facility] ([place]) Comment on above: Performed By: #### M DW, GFR, ADIFF, CBC, BMP, ANEU, TROPHS ####[address] [address] .GFRon 09-06-2023 GFR >60 Normal [facility] ([place]) Comment on above: Result Comment: GFR Population mean for , Non- Americans Ages 20-29 = 116 mL/min/1.73 sq.m. Ages 30-39 = 107 mL/min/1.73 sq.m. Ages 40-49 = 99 mL/min/1.73 sq.m. Ages 50-59 = 93 mL/min/1.73 sq.m. Ages 60-69 = 85 mL/min/1.73 sq.m. Ages 70+ = 75 mL/min/1.73 sq.m.Chronic Kidney Disease: Less than 60 mL/min/1.73 square metersEnd Stage Renal Disease: Less than 15 mL/min/1.73 square meters Performed By: #### M DW, GFR, ADIFF, CBC, BMP, ANEU, TROPHS ####[address] [address] GFR Non- 52 ml/min/1.73sqm Normal [facility] ([place]) Comment on above: Result Comment: GFR Population mean for , Non- Americans Ages 20-29 = 116 mL/min/1.73 sq.m. Ages 30-39 = 107 mL/min/1.73 sq.m. Ages 40-49 = 99 mL/min/1.73 sq.m. Ages 50-59 = 93 mL/min/1.73 sq.m. Ages 60-69 = 85 mL/min/1.73 sq.m. Ages 70+ = 75 mL/min/1.73 sq.m.Chronic Kidney Disease: Less than 60 mL/min/1.73 square metersEnd Stage Renal Disease: Less than 15 mL/min/1.73 square meters Performed By: #### M DW, GFR, ADIFF, CBC, BMP, ANEU, TROPHS ####[place] [address] .MDWon 09-06-2023 Monocyte Distribution Width 18.77 Normal 0.00-20.00 [facility] ([place]) Comment on above: Result Comment: For ED adult patients suspected of sepsis, MDW<=20.0 does not rule out sepsis or risk of sepsis Performed By: #### M DW, GFR, ADIFF, CBC, BMP, ANEU, TROPHS ####[place] [address] .NEUABSon 09-06-2023 Neutrophil, Absolute 2.7 10 3/mcL Normal 2.3-8.1 [facility] ([place]) Comment on above: Performed By: #### M DW, GFR, ADIFF, CBC, BMP, ANEU, TROPHS ####[place] [address] BMPon 09-06-2023 BUN/Creatinine Ratio 20.6 ratio Normal 10.0-22.0 [facility] ([place] Comment on above: Performed By: #### M DW, GFR, ADIFF, CBC, BMP, ANEU, TROPHS ####[place] [address] Calcium [Mass/Vol] 9.9 mg/dL Normal 8.7-10.4 [facility] ([place] Comment on above: Performed By: #### M DW, GFR, ADIFF, CBC, BMP, ANEU, TROPHS ####[place] [address] Chloride [Moles/Vol] 108 mmol/L Normal 98-110 [facility] ([place] Comment on above: Performed By: #### M DW, GFR, ADIFF, CBC, BMP, ANEU, TROPHS ####[address] [address] CO2 [Moles/Vol] 27 mmol/L Normal 22-32 [facility] ([place]) Comment on above: Performed By: #### M DW, GFR, ADIFF, CBC, BMP, ANEU, TROPHS ####[address] [address] Creatinine [Mass/Vol] 1.31 mg/dL Normal 0.60-1.40 [facility] ([place]) Comment on above: Performed By: #### M DW, GFR, ADIFF, CBC, BMP, ANEU, TROPHS ####[place] [address] Electrolyte Balance 4.0 mEq/L Normal 4.0-15.0 [facility] ([place]) Comment on above: Performed By: #### M DW, GFR, ADIFF, CBC, BMP, ANEU, TROPHS ####[place] [address] Glucose [Mass/Vol] 96 mg/dL Normal 82-115 [facility] ([place] Comment on above: Performed By: #### M DW, GFR, ADIFF, CBC, BMP, ANEU, TROPHS ####[address] [address] Potassium [Moles/Vol] 4.8 mmol/L Normal 3.5-5.0 [facility] ([place]) Comment on above: Result Comment: Spec imen slightly hemolyzed. Performed By: #### M DW, GFR, ADIFF, CBC, BMP, ANEU, TROPHS ####[address] [address] Sodium [Moles/Vol] 139 mmol/L Normal 136-145 [facility] ([place] Comment on above: Performed By: #### M DW, GFR, ADIFF, CBC, BMP, ANEU, TROPHS ####[address] [address] Urea nitrogen [Mass/Vol] 27.0 mg/dL High 8.0-22.0 [facility] ([place]) Comment on above: Performed By: #### M DW, GFR, ADIFF, CBC, BMP, ANEU, TROPHS ####[place] [address] CBCon 09-06-2023 Erythrocyte distribution width (RBC) [Ratio] 15.6 % High 11.5-15.5 [facility] ([place]) Comment on above: Performed By: #### M DW, GFR, ADIFF, CBC, BMP, ANEU, TROPHS ####[place] [address] Hematocrit (Bld) [Volume fraction] 27.8 % Low 40.0-52.0 [facility] ([place]) Comment on above: Performed By: #### M DW, GFR, ADIFF, CBC, BMP, ANEU, TROPHS ####[place] [address] Hgb 9.7 G/dL Low 13.0-17.5 [facility] ([place]) Comment on above: Performed By: #### M DW, GFR, ADIFF, CBC, BMP, ANEU, TROPHS ####[place] [address] MCH (RBC) [Entitic mass] 32.1 pg Normal 27.0-33.0 [facility] ([place]) Comment on above: Performed By: #### M DW, GFR, ADIFF, CBC, BMP, ANEU, TROPHS ####[place] [address] MCHC 34.8 G/dL Normal 32.0-36.0 [facility] ([place]) Comment on above: Performed By: #### M DW, GFR, ADIFF, CBC, BMP, ANEU, TROPHS ####[place] [address] MCV (RBC) [Entitic vol] 92.2 fL Normal 81.0-100.0 [facility] ([place]) Comment on above: Performed By: #### M DW, GFR, ADIFF, CBC, BMP, ANEU, TROPHS ####[place] [address] Platelet 172 10 3/mcL Normal 150-450 [facility] ([place]) Comment on above: Performed By: #### M DW, GFR, ADIFF, CBC, BMP, ANEU, TROPHS ####[place] [address] Platelet mean volume (Bld) [Entitic vol] 6.8 fL Normal 6.4-10.5 [facility] ([place]) Comment on above: Performed By: #### M DW, GFR, ADIFF, CBC, BMP, ANEU, TROPHS ####[place] [address] RBC 3.01 10 6/mcL Low 4.50-6.00 [facility] ([place] Comment on above: Performed By: #### M DW, GFR, ADIFF, CBC, BMP, ANEU, TROPHS ####[place] [address] WBC 3.9 10 3/mcL Low 4.5-10.8 [facility] ([place]) Comment on above: Performed By: #### M DW, GFR, ADIFF, CBC, BMP, ANEU, TROPHS ####[place] [address] LABORATORYOrdered By: SYSTEM SYSTEM on 09-06-2023 Basophils (Bld) [#/Vol] 0.0 103/mcL Normal 0.0 - 0.3 10^3/mcL Workflow SS Basophils/100 WBC (Bld) 0.6 % Normal 0.0 - 2.5 % Workflow SS Calcium [Mass/Vol] 9.9 mg/dL Normal 8.7 - 10. 4 mg/dL ADM SS Chloride [Moles/Vol] 108 mmol/L Normal 98 - 11 0 mEq/L ADM SS CO2 [Moles/Vol] 27 mmol/L Normal 22 - 32 mEq/L ADM SS Creatinine [Mass/Vol] 1.31 mg/dL Normal 0.60 - 1.40 mg/dL ADM SS Electrolyte Balance 4.0 mEq/L Normal 4.0 - 15 .0 mEq/L ADM SS Eosinophils (Bld) [#/Vol] 0.3 103/mcL Normal 0.0 - 0.7 10^3/mcL AH Workflow SS Eosinophils/100 WBC (Bld) 6.7 % High 0.0 - 6.0 % Workflow SS Erythrocyte distribution width (RBC) [Ratio] 15.6 % High 11.5 - 15.5 % Workflow SS GFR/1.73 sq M.predicted among blacks MDRD (S/P/Bld) [Vol rate/Area] ml/min/1.73sqm Invalid Interpretation Code [facility] Comment on above: Interpretive Data: GFR Population mean for , Non- Americans Ages 20-29 = 116 mL/min/1.73 sq.m. Ages 30-39 = 107 mL/min/1.73 sq.m. Ages 40-49 = 99 mL/min/1.73 sq.m. Ages 50-59 = 93 mL/min/1.73 sq.m. Ages 60-69 = 85 mL/min/1.73 sq.m. Ages 70+ = 75 mL/min/1.73 sq.m. Chronic Kidney Disease: Less than 60 mL/min/1.73 square meters End Stage Renal Disease: Less than 15 mL/min/1.73 square meters GFR/1.73 sq M.predicted among non-blacks MDRD (S/P/Bld) [Vol rate/Area] 52 ml/min/1.73sqm Invalid Interpretation Code [facility] Comment on above: Interpretive Data: GFR Population mean for , Non- Americans Ages 20-29 = 116 mL/min/1.73 sq.m. Ages 30-39 = 107 mL/min/1.73 sq.m. Ages 40-49 = 99 mL/min/1.73 sq.m. Ages 50-59 = 93 mL/min/1.73 sq.m. Ages 60-69 = 85 mL/min/1.73 sq.m. Ages 70+ = 75 mL/min/1.73 sq.m. Chronic Kidney Disease: Less than 60 mL/min/1.73 square meters End Stage Renal Disease: Less than 15 mL/min/1.73 square meters Glucose [Mass/Vol] 96 mg/dL Normal 82 - 115 mg/dL ADM Hematocrit (Bld) [Volume fraction] 27.8 % Low 40.0 - 52.0 % Workflow SS Hemoglobin (Bld) [Mass/Vol] 9.7 G/dL Low 13.0 - 17.5 G/dL AH Workflow SS Lymphocytes (Bld) [#/Vol] 0.4 103/mcL Low 0.9 - 4.3 10^3/mcL AH Workflow SS Lymphocytes/100 WBC (Bld) 9.9 % Low 20.0 - 40.0 % AH Workflow SS MCH (RBC) [Entitic mass] 32.1 pg Normal 27.0 - 33.0 pg AH Workflow SS MCHC 34.8 G/dL Normal 32.0 - 36.0 G/dL AH Workflow SS MCV (RBC) [Entitic vol] 92.2 fL Normal 81.0 - 100.0 fL AH Workflow SS Monocyte distribution width Auto (Bld) [Entitic vol] 18.77 1 Normal 0.00 - 20.00 AH Workflow SS Comment on above: Result Comment: For ED adult patients suspected of sepsis, MDW<=20.0 does not rule out sepsis or risk of sepsis Monocytes (Bld) [#/Vol] 0.6 103/mcL Normal 0.1 - 1.4 10^3/mcL AH Workflow SS Monocytes/100 WBC (Bld) 14.0 % High 2.0 - 13.0 % AH Workflow SS Neutrophils (Bld) [#/Vol] 2.7 103/mcL Normal 2.3 - 8.1 10^3/mcL AH Workflow SS Neutrophils/100 WBC (Bld) 68.8 % Normal 50.0 - 75.0 % AH Workflow SS Platelet mean volume (Bld) [Entitic vol] 6.8 fL Normal 6.4 - 10.5 fL AH Workflow SS Platelets (Bld) [#/Vol] 172 103/mcL Normal 150 - 450 10^3/mcL AH Workflow SS Potassium [Moles/Vol] 4.8 mmol/L Normal 3.5 - 5.0 mEq/L ADM SS Comment on above: Result Comment: Spec imen slightly hemolyzed. RBC (Bld) [#/Vol] 3.01 106/mcL Low 4.50 - 6.0 0 10^6/mcL AH Workflow SS Sodium [Moles/Vol] 139 mmol/L Normal 136 - 145 mEq/L ADM SS Troponin I.cardiac DL <= 0.01 ng/mL [Mass/Vol] 10.42 ng/L Normal 0.00 - 54.00 ng/L ADM SS Urea nitrogen [Mass/Vol] 27.0 mg/dL High 8.0 - 22.0 mg/dL AH ADM SS Urea nitrogen/Creatinine [Mass ratio] 20.6 ratio Normal 10.0 - 22.0 ratio AH ADM SS WBC (Bld) [#/Vol] 3.9 103/mcL Low 4.5 - 10.8 10^3/mcL AH Workflow SS TROPHSon 09-06-2023 Troponin I High Sensitivity 10.42 ng/L Normal 0.00-54.00 [facility] ([place]) Comment on above: Performed By: #### M DW, GFR, ADIFF, CBC, BMP, ANEU, TROPHS ####[place] [id number] [place] [address] XR CHEST 1 VIEWon 09-06-2023 XR CHEST 1 VIEW Normal [facility] ([place]) .Auto Diffon 09-02-2023 Basophil, Absolute 0.0 10 3/mcL Normal 0.0-0.2 [facility] ([place]) Comment on above: Performed By: #### A DIFF, CMP, GFR, ANEU, CBC ####[address] [place], [place] [address] Basophils/100 WBC (Bld) 0.9 % Normal 0.0-2.5 [facility] ([place]) Comment on above: Performed By: #### A DIFF, CMP, GFR, ANEU, CBC ####[address] [place], [place] [address] Eosinophil, Absolute 0.3 10 3/mcL Normal 0.0-0.4 [facility] ([place]) Comment on above: Performed By: #### A DIFF, CMP, GFR, ANEU, CBC ####[address] [address] [place], [place] [address] Eosinophils/100 WBC (Bld) 6.3 % Normal 0.0-7.0 [facility] ([place]) Comment on above: Performed By: #### A DIFF, CMP, GFR, ANEU, CBC ####[address] [place], [place] [address] Lymphocyte, Absolute 0.4 10 3/mcL Low 0.8-3.9 [facility] ([place]) Comment on above: Performed By: #### A DIFF, CMP, GFR, ANEU, CBC ####[address] [place], [place] [address] Lymphocytes/100 WBC (Bld) 8.3 % Low 10.0-50.0 [facility] ([place]) Comment on above: Performed By: #### A DIFF, CMP, GFR, ANEU, CBC ####[address] [place], [place] [address] Monocyte, Absolute 0.6 10 3/mcL Normal 0.2-1.0 [facility] ([place] Comment on above: Performed By: #### A DIFF, CMP, GFR, ANEU, CBC ####[address] [place], [place] [address] Monocytes/100 WBC (Bld) 13.7 % High 1.7-13.0 [facility] ([place]) Comment on above: Performed By: #### A DIFF, CMP, GFR, ANEU, CBC ####[address] [place], [place] [address] Neutrophils/100 WBC (Bld) 70.8 % Normal 37.0-80.0 [facility] ([place] Comment on above: Performed By: #### A DIFF, CMP, GFR, ANEU, CBC ####[address] [place], [place] [address] .GFRon 09-02-2023 GFR 51 ml/min/1.73sqm Normal [facility] ([place]) Comment on above: Result Comment: GFR Population mean for , Non- Americans Ages 20-29 = 116 mL/min/1.73 sq.m. Ages 30-39 = 107 mL/min/1.73 sq.m. Ages 40-49 = 99 mL/min/1.73 sq.m. Ages 50-59 = 93 mL/min/1.73 sq.m. Ages 60-69 = 85 mL/min/1.73 sq.m. Ages 70+ = 75 mL/min/1.73 sq.m.Chronic Kidney Disease: Less than 60 mL/min/1.73 square metersEnd Stage Renal Disease: Less than 15 mL/min/1.73 square meters Performed By: #### A DIFF, CMP, GFR, ANEU, CBC ####[address] [place], [place] [address] GFR Non- 42 ml/min/1.73sqm Normal [facility] ([place]) Comment on above: Result Comment: GFR Population mean for , Non- Americans Ages 20-29 = 116 mL/min/1.73 sq.m. Ages 30-39 = 107 mL/min/1.73 sq.m. Ages 40-49 = 99 mL/min/1.73 sq.m. Ages 50-59 = 93 mL/min/1.73 sq.m. Ages 60-69 = 85 mL/min/1.73 sq.m. Ages 70+ = 75 mL/min/1.73 sq.m.Chronic Kidney Disease: Less than 60 mL/min/1.73 square metersEnd Stage Renal Disease: Less than 15 mL/min/1.73 square meters Performed By: #### A DIFF, CMP, GFR, ANEU, CBC ####[address] [place], [place] [address] .NEUABSon 09-02-2023 Neutrophil, Absolute 3.3 10 3/mcL Normal 2.9-6.2 [facility] ([place]) Comment on above: Performed By: #### A DIFF, CMP, GFR, ANEU, CBC ####[address] [place], [place] [address] CBCon 09-02-2023 Erythrocyte distribution width (RBC) [Ratio] 15.5 % High 11.5-14.5 [facility] ([place]) Comment on above: Performed By: #### A DIFF, CMP, GFR, ANEU, CBC ####[address] [place], [place] [address] Hematocrit (Bld) [Volume fraction] 29.2 % Low 42.0-52.0 [facility] ([place] Comment on above: Performed By: #### A DIFF, CMP, GFR, ANEU, CBC ####[address] [place], [place] [address] Hgb 9.7 G/dL Low 14.0-18.0 [facility] ([place]) Comment on above: Performed By: #### A DIFF, CMP, GFR, ANEU, CBC ####[address] [place], [place] [address] MCH (RBC) [Entitic mass] 30.5 pg Normal 27.0-31.2 [facility] ([place] Comment on above: Performed By: #### A DIFF, CMP, GFR, ANEU, CBC ####[address] [place], [place] [address] MCHC 33.3 G/dL Normal 31.8-35.4 [facility] ([place] Comment on above: Performed By: #### A DIFF, CMP, GFR, ANEU, CBC ####[address] [place], [place] [address] MCV (RBC) [Entitic vol] 91.7 fL Normal 80.0-94.0 [facility] ([place] Comment on above: Performed By: #### A DIFF, CMP, GFR, ANEU, CBC ####[address] [place], [place] [address] Platelet 170 10 3/mcL Normal 130-400 [facility] ([place] Comment on above: Performed By: #### A DIFF, CMP, GFR, ANEU, CBC ####[address] [place], [place] [address] Platelet mean volume (Bld) [Entitic vol] 7.1 fL Low 7.4-10.4 [facility] ([place]) Comment on above: Performed By: #### A DIFF, CMP, GFR, ANEU, CBC ####[address] [place], [place] [address] RBC 3.18 10 6/mcL Low 4.04-6.13 [facility] ([place] Comment on above: Performed By: #### A DIFF, CMP, GFR, ANEU, CBC ####[address] [place], [place] [address] WBC 4.7 10 3/mcL Normal 4.6-10.8 [facility] ([place]) Comment on above: Performed By: #### A DIFF, CMP, GFR, ANEU, CBC ####[address] [place], [place] [address] CMPon 09-02-2023 Albumin Level 3.4 G/dL Normal 3.4-4.8 [facility] ([place] Comment on above: Performed By: #### A DIFF, CMP, GFR, ANEU, CBC ####[address] [place], [place] [address] Albumin/Globulin [Mass ratio] 1.0 {ratio} Low 1.1-2.5 [facility] ([place] Comment on above: Performed By: #### A DIFF, CMP, GFR, ANEU, CBC ####[address] [place], [place] [address] ALP [Catalytic activity/Vol] 65 U/L Normal 40-135 [facility] ([place]) Comment on above: Performed By: #### A DIFF, CMP, GFR, ANEU, CBC ####[address] [place], [place] [address] ALT [Catalytic activity/Vol] 27 U/L Normal 16-63 [facility] ([place] Comment on above: Performed By: #### A DIFF, CMP, GFR, ANEU, CBC ####[address] [place], [place] [address] AST [Catalytic activity/Vol] 27 U/L Normal 10-40 [facility] ([place]) Comment on above: Performed By: #### A DIFF, CMP, GFR, ANEU, CBC ####[address] [place], [place] [address] Bili Total 0.3 mg/dL Normal 0.2-1.0 [facility] ([place] Comment on above: Result Comment: Use of this assay is not recommended for patients undergoing treatment with eltrombopag due to the potential for falsely elevated results. Performed By: #### A DIFF, CMP, GFR, ANEU, CBC ####[address] [place], [place] [address] BUN/Creatinine Ratio 22 ratio Normal 7-27 [facility] ([place] Comment on above: Performed By: #### A DIFF, CMP, GFR, ANEU, CBC ####[address] [place], [place] [address] Calcium [Mass/Vol] 9.2 mg/dL Normal 8.4-10.2 [facility] ([place] Comment on above: Performed By: #### A DIFF, CMP, GFR, ANEU, CBC ####[address] [place], [place] [address] Chloride [Moles/Vol] 104 mmol/L Normal 98-107 [facility] ([place] Comment on above: Performed By: #### A DIFF, CMP, GFR, ANEU, CBC ####[address] [place], [place] [address] CO2 [Moles/Vol] 28 mmol/L Normal 23-31 [facility] ([place] Comment on above: Performed By: #### A DIFF, CMP, GFR, ANEU, CBC ####[address] [place], [place] [address] Creatinine [Mass/Vol] 1.56 mg/dL High 0.70-1.30 [facility] ([place] Comment on above: Performed By: #### A DIFF, CMP, GFR, ANEU, CBC ####[address] [place], [place] [address] Electrolyte Balance 8.0 mEq/L Normal 4.0-15.0 [facility] ([place]) Comment on above: Performed By: #### A DIFF, CMP, GFR, ANEU, CBC ####[address] [place], [place] [address] Globulin 3.5 G/dL Normal [facility] ([place] Comment on above: Performed By: #### A DIFF, CMP, GFR, ANEU, CBC ####[address] [place], [place] [address] Glucose [Mass/Vol] 140 mg/dL High 83-110 [facility] ([place] Comment on above: Performed By: #### A DIFF, CMP, GFR, ANEU, CBC ####[address] [place], [place] [address] Potassium [Moles/Vol] 5.0 mmol/L Normal 3.5-5.1 [facility] ([place] Comment on above: Performed By: #### A DIFF, CMP, GFR, ANEU, CBC ####[address] [place], [place] [address] Sodium [Moles/Vol] 140 mmol/L Normal 136-145 [facility] ([place] Comment on above: Performed By: #### A DIFF, CMP, GFR, ANEU, CBC ####[address] [place], [place] [address] Total Protein 6.9 G/dL Normal 6.4-8.2 [facility] ([place] Comment on above: Performed By: #### A DIFF, CMP, GFR, ANEU, CBC ####[address] [place], [place] [address] Urea nitrogen [Mass/Vol] 34 mg/dL High 7-18 [facility] ([place] Comment on above: Performed By: #### A DIFF, CMP, GFR, ANEU, CBC ####[address] [place], [place] [address] LABORATORYOrdered By: SYSTEM SYSTEM on 09-02-2023 Albumin BCP dye [Mass/Vol] 3.4 G/dL Normal 3.4 - 4.8 G/dL AO ADM SS Albumin/Globulin [Mass ratio] 1.0 {ratio} Low 1.1 - 2.5 ratio AO ADM SS ALP [Catalytic activity/Vol] 65 U/L Normal 40 - 135 U/L AO ADM SS ALT With P-5'-P [Catalytic activity/Vol] 27 U/L Normal 16 - 63 U/L AO ADM SS AST With P-5'-P [Catalytic activity/Vol] 27 U/L Normal 10 - 40 U/L AO ADM SS Basophil, Absolute 0.0 103/mcL Normal 0.0 - 0.2 10^3/mcL AO Workflow SS Basophils/100 WBC (Bld) 0.9 % Normal 0.0 - 2.5 % AO Workflow SS Bilirubin [Mass/Vol] 0.3 mg/dL Normal 0.2 - 1 .0 mg/dL AO ADM SS Comment on above: Interpretive Data: U se of this assay is not recommended for patients undergoing treatment with eltrombopag due to the potential for falsely elevated results. Calcium [Mass/Vol] 9.2 mg/dL Normal 8.4 - 10. 2 mg/dL AO ADM SS Chloride [Moles/Vol] 104 mmol/L Normal 98 - 10 7 mmol/L AO ADM SS CO2 [Moles/Vol] 28 mmol/L Normal 23 - 31 mmol/L AO ADM SS Creatinine [Mass/Vol] 1.56 mg/dL High 0.70 - 1.30 mg/dL AO ADM SS Electrolyte Balance 8.0 mEq/L Normal 4.0 - 15 .0 mEq/L AO ADM SS Eosinophil, Absolute 0.3 103/mcL Normal 0.0 - 0 .4 10^3/mcL AO Workflow SS Eosinophils/100 WBC (Bld) 6.3 % Normal 0.0 - 7.0 % AO Workflow SS Erythrocyte distribution width (RBC) [Ratio] 15.5 % High 11.5 - 14.5 % AO Workflow SS GFR/1.73 sq M.predicted among blacks MDRD (S/P/Bld) [Vol rate/Area] 51 ml/min/1.73sqm Invalid Interpretation Code AO Chemistry S Comment on above: Interpretive Data: GFR Population mean for , Non- Americans Ages 20-29 = 116 mL/min/1.73 sq.m. Ages 30-39 = 107 mL/min/1.73 sq.m. Ages 40-49 = 99 mL/min/1.73 sq.m. Ages 50-59 = 93 mL/min/1.73 sq.m. Ages 60-69 = 85 mL/min/1.73 sq.m. Ages 70+ = 75 mL/min/1.73 sq.m. Chronic Kidney Disease: Less than 60 mL/min/1.73 square meters End Stage Renal Disease: Less than 15 mL/min/1.73 square meters GFR/1.73 sq M.predicted among non-blacks MDRD (S/P/Bld) [Vol rate/Area] 42 ml/min/1.73sqm Invalid Interpretation Code AO Chemistry S Comment on above: Interpretive Data: GFR Population mean for , Non- Americans Ages 20-29 = 116 mL/min/1.73 sq.m. Ages 30-39 = 107 mL/min/1.73 sq.m. Ages 40-49 = 99 mL/min/1.73 sq.m. Ages 50-59 = 93 mL/min/1.73 sq.m. Ages 60-69 = 85 mL/min/1.73 sq.m. Ages 70+ = 75 mL/min/1.73 sq.m. Chronic Kidney Disease: Less than 60 mL/min/1.73 square meters End Stage Renal Disease: Less than 15 mL/min/1.73 square meters Globulin 3.5 G/dL Invalid Interpretation Code AO ADM SS Glucose [Mass/Vol] 140 mg/dL High 83 - 110 mg/dL AO ADM SS Hematocrit (Bld) [Volume fraction] 29.2 % Low 42.0 - 52.0 % AO Workflow SS Hemoglobin (Bld) [Mass/Vol] 9.7 G/dL Low 14.0 - 18.0 G/dL AO Workflow SS Lymphocyte, Absolute 0.4 103/mcL Low 0.8 - 3 .9 10^3/mcL AO Workflow SS Lymphocytes/100 WBC (Bld) 8.3 % Low 10.0 - 50.0 % AO Workflow SS MCH (RBC) [Entitic mass] 30.5 pg Normal 27.0 - 31.2 pg AO Workflow SS MCHC 33.3 G/dL Normal 31.8 - 35.4 G/dL AO Workflow SS MCV (RBC) [Entitic vol] 91.7 fL Normal 80.0 - 94.0 fL AO Workflow SS Monocyte, Absolute 0.6 103/mcL Normal 0.2 - 1.0 10^3/mcL AO Workflow SS Monocytes/100 WBC (Bld) 13.7 % High 1.7 - 13.0 % AO Workflow SS Neutrophil, Absolute 3.3 103/mcL Normal 2.9 - 6 .2 10^3/mcL AO Workflow SS Neutrophils/100 WBC (Bld) 70.8 % Normal 37.0 - 80.0 % AO Workflow SS Platelet mean volume (Bld) [Entitic vol] 7.1 fL Low 7.4 - 10.4 fL AO Workflow SS Platelets (Bld) [#/Vol] 170 103/mcL Normal 130 - 400 10^3/mcL AO Workflow SS Potassium [Moles/Vol] 5.0 mmol/L Normal 3.5 - 5.1 mmol/L AO ADM SS Protein [Mass/Vol] 6.9 G/dL Normal 6.4 - 8.2 G/dL AO ADM SS RBC (Bld) [#/Vol] 3.18 106/mcL Low 4.04 - 6.1 3 10^6/mcL AO Workflow SS Sodium [Moles/Vol] 140 mmol/L Normal 136 - 145 mmol/L AO ADM SS Urea nitrogen [Mass/Vol] 34 mg/dL High 7 - 18 mg/dL AO ADM SS Urea nitrogen/Creatinine [Mass ratio] 22 ratio Normal 7 - 27 ratio AO ADM SS WBC (Bld) [#/Vol] 4.7 103/mcL Normal 4.6 - 10.8 10^3/mcL AO Workflow SS .Auto Diffon 08-28-2023 Basophil, Absolute 0.0 10 3/mcL Normal 0.0-0.2 [facility] ([place]) Comment on above: Performed By: #### C ERICK BACON, LIANG, GFR, ADIFF, BMP ####[address] [place], [place] [address] Basophils/100 WBC (Bld) 0.8 % Normal 0.0-2.5 [facility] ([place]) Comment on above: Performed By: #### ERICK JOHNSON, LIANG, GFR, ADIFF, BMP ####[address] [place], [place] [address] Eosinophil, Absolute 0.2 10 3/mcL Normal 0.0-0.4 [facility] ([place]) Comment on above: Performed By: #### ERICK JOHNSON, LIANG, GFR, ADIFF, BMP ####[address] [place], [place] [address] Eosinophils/100 WBC (Bld) 5.4 % Normal 0.0-7.0 [facility] ([place]) Comment on above: Performed By: #### ERICK JOHNSON, LIANG, GFR, ADIFF, BMP ####[address] [place], [place] [address] Lymphocyte, Absolute 0.3 10 3/mcL Low 0.8-3.9 [facility] ([place]) Comment on above: Performed By: #### ERICK JOHNSON, ANEU, GFR, ADIFF, BMP ####[address] [place], [place] [address] Lymphocytes/100 WBC (Bld) 8.2 % Low 10.0-50.0 [facility] ([place]) Comment on above: Performed By: #### C ERICK BACON, ANEU, GFR, ADIFF, BMP ####[address] [place], [place] [address] Monocyte, Absolute 0.5 10 3/mcL Normal 0.2-1.0 [facility] ([place]) Comment on above: Performed By: #### C ERICK BACON, ANEU, GFR, ADIFF, BMP ####[address] [place], [place] [address] Monocytes/100 WBC (Bld) 15.5 % High 1.7-13.0 [facility] ([place]) Comment on above: Performed By: #### C ERICK BACON, LIANG, GFR, ADIFF, BMP ####[address] [place], [place] [address] Neutrophils/100 WBC (Bld) 70.1 % Normal 37.0-80.0 [facility] ([place]) Comment on above: Performed By: #### C ERICK BACON, ANEU, GFR, ADIFF, BMP ####[address] [place], [place] [address] .GFRon 08-28-2023 GFR 34 ml/min/1.73sqm Normal [facility] ([place]) Comment on above: Result Comment: GFR Population mean for , Non- Americans Ages 20-29 = 116 mL/min/1.73 sq.m. Ages 30-39 = 107 mL/min/1.73 sq.m. Ages 40-49 = 99 mL/min/1.73 sq.m. Ages 50-59 = 93 mL/min/1.73 sq.m. Ages 60-69 = 85 mL/min/1.73 sq.m. Ages 70+ = 75 mL/min/1.73 sq.m.Chronic Kidney Disease: Less than 60 mL/min/1.73 square metersEnd Stage Renal Disease: Less than 15 mL/min/1.73 square meters Performed By: #### C ERICK BACON, LIANG, GFR, ADIFF, BMP ####[address] [place], [place] [address] GFR Non- 28 ml/min/1.73sqm Normal [facility] ([place]) Comment on above: Result Comment: GFR Population mean for , Non- Americans Ages 20-29 = 116 mL/min/1.73 sq.m. Ages 30-39 = 107 mL/min/1.73 sq.m. Ages 40-49 = 99 mL/min/1.73 sq.m. Ages 50-59 = 93 mL/min/1.73 sq.m. Ages 60-69 = 85 mL/min/1.73 sq.m. Ages 70+ = 75 mL/min/1.73 sq.m.Chronic Kidney Disease: Less than 60 mL/min/1.73 square metersEnd Stage Renal Disease: Less than 15 mL/min/1.73 square meters Performed By: #### C ERICK BACON, ANEU, GFR, ADIFF, BMP ####[address] [place], [place] [address] .MDWon 08-28-2023 Monocyte Distribution Width 19.90 Normal 0.00-20.00 [facility] ([place]) Comment on above: Result Comment: For ED adult patients suspected of sepsis, MDW<=20.0 does not rule out sepsis or risk of sepsis Performed By: #### C ERICK BACON, LIANG, GFR, ADIFF, BMP ####[address] [place], [place] [address] .NEUABSon 08-28-2023 Neutrophil, Absolute 2.4 10 3/mcL Low 2.9-6.2 [facility] ([place]) Comment on above: Performed By: #### C ERICK BACON, LIANG, GFR, ADIFF, BMP ####[address] [place], [place] [address] BMPon 08-28-2023 BUN/Creatinine Ratio 21 ratio Normal 7-27 [facility] ([place]) Comment on above: Performed By: #### C ERICK BACON, ANEU, GFR, ADIFF, BMP ####[address] [place], [place] [address] Calcium [Mass/Vol] 8.9 mg/dL Normal 8.4-10.2 [facility] ([place] Comment on above: Performed By: #### C ERICK BACON, LIANG, GFR, ADIFF, BMP ####[address] [place], [place] [address] Chloride [Moles/Vol] 103 mmol/L Normal 98-107 [facility] ([place]) Comment on above: Performed By: #### C ERICK BACON, LIANG, GFR, ADIFF, BMP ####[address] [place], [place] [address] CO2 [Moles/Vol] 25 mmol/L Normal 23-31 [facility] ([place] Comment on above: Performed By: #### C ERICK BACON, LIANG, GFR, ADIFF, BMP ####[address] [place], [place] [address] Creatinine [Mass/Vol] 2.26 mg/dL High 0.70-1.30 [facility] ([place]) Comment on above: Performed By: #### ERICK JOHNSON, LIANG, GFR, ADIFF, BMP ####[address] [place], [place] [address] Electrolyte Balance 11.0 mEq/L Normal 4.0-15.0 [facility] ([place]) Comment on above: Performed By: #### ERICK JOHNSON, LIANG, GFR, ADIFF, BMP ####[address] [place], [place] [address] Glucose [Mass/Vol] 164 mg/dL High 83-110 [facility] ([place] Comment on above: Performed By: #### ERICK JOHNSON, LIANG, GFR, ADIFF, BMP ####[address] [place], [place] [address] Potassium [Moles/Vol] 4.8 mmol/L Normal 3.5-5.1 [facility] ([place] Comment on above: Performed By: #### ERICK JOHNSON, LIANG, GFR, ADIFF, BMP ####[address] [place], [place] [address] Sodium [Moles/Vol] 139 mmol/L Normal 136-145 [facility] ([place] Comment on above: Performed By: #### C ERICK BACON ANEU, GFR, ADIFF, BMP ####[address] [place], [place] [address] Urea nitrogen [Mass/Vol] 48 mg/dL High 7-18 [facility] ([place]) Comment on above: Performed By: #### C ERICK BACON ANEU, GFR, ADIFF, BMP ####[address] [place], [place] [address] CBCon 08-28-2023 Erythrocyte distribution width (RBC) [Ratio] 15.7 % High 11.5-14.5 [facility] ([place]) Comment on above: Performed By: #### C ERICK BACON ANEU, GFR, ADIFF, BMP ####[address] [place], [place] [address] Hematocrit (Bld) [Volume fraction] 30.0 % Low 42.0-52.0 [facility] ([place] Comment on above: Performed By: #### C ERICK BACON ANEU, GFR, ADIFF, BMP ####[address] [place], [place] [address] Hgb 10.0 G/dL Low 14.0-18.0 [facility] ([place]) Comment on above: Performed By: #### C ERICK BACON ANEU, GFR, ADIFF, BMP ####[address] [place], [place] [address] MCH (RBC) [Entitic mass] 30.4 pg Normal 27.0-31.2 [facility] ([place]) Comment on above: Performed By: #### C ERICK BACON ANEU, GFR, ADIFF, BMP ####[address] [place], [place] [address] MCHC 33.4 G/dL Normal 31.8-35.4 [facility] ([place] Comment on above: Performed By: #### C ERICK BACON, LIANG, GFR, ADIFF, BMP ####[address] [place], [place] [address] MCV (RBC) [Entitic vol] 91.2 fL Normal 80.0-94.0 [facility] ([place]) Comment on above: Performed By: #### C ERICK BACON, LIANG, GFR, ADIFF, BMP ####[address] [place], [place] [address] Platelet 148 10 3/mcL Normal 130-400 [facility] ([place]) Comment on above: Performed By: #### ERICK JOHNSON, LIANG, GFR, ADIFF, BMP ####[address] [place], [place] [address] Platelet mean volume (Bld) [Entitic vol] 6.8 fL Low 7.4-10.4 [facility] ([place]) Comment on above: Performed By: #### C ERICK BACON, LIANG, GFR, ADIFF, BMP ####[address] [place], [place] [address] RBC 3.30 10 6/mcL Low 4.04-6.13 [facility] ([place]) Comment on above: Performed By: #### ERICK JOHNSON, LIANG, GFR, ADIFF, BMP ####[address] [place], [place] [address] WBC 3.5 10 3/mcL Low 4.6-10.8 [facility] ([place]) Comment on above: Performed By: #### ERICK JOHNSON, LIANG, GFR, ADIFF, BMP ####[address] [place], [place] [address] LABORATORYOrdered By: Barbara Hinson on 08-28-2023 Appearance (U) Clear (08/28/23 1:38 PM) Normal Clear AO Auto Urine SS Bilirubin Ql (U) Negative (08/28/23 1:38 PM) Normal Negative AO Auto Urine SS Color (U) Yellow (08/28/23 1:38 PM) Normal AO Auto Urine SS Glucose Test strip (U) [Mass/Vol] Negative Normal Negative AO Auto Urine SS Hemoglobin Auto test strip (U) [Mass/Vol] Trace *ABN* (08/28/23 1:38 PM) Invalid Interpretation Code Negative AO Auto Urine SS Ketones Ql (U) Negative Normal Negative AO Auto Urine SS UA Leuk Est Negative (08/28/23 1:38 PM) Normal Negative AO Auto Urine SS UA Nitrite Negative (08/28/23 1:38 PM) Normal Negative AO Auto Urine SS UA pH 5.5 (08/28/23 1:38 PM) Normal 5.0 - 8.0 AO Auto Urine SS UA Protein Negative Normal Negative AO Auto Urine SS UA Spec Grav 1.020 (08/28/23 1:38 PM) Normal 1.015-1.025 AO Auto Urine SS UA Specimen Type Clean Catch (08/28/23 1:38 PM) Normal AO Auto Urine SS UA Urobilinogen 0.2 E.U./dL Normal 0.2-1.0 AO Auto Urine SS LABORATORYOrdered By: SYSTEM SYSTEM on 08-28-2023 Basophil, Absolute 0.0 103/mcL Normal 0.0 - 0.2 10^3/mcL AO Workflow SS Basophils/100 WBC (Bld) 0.8 % Normal 0.0 - 2.5 % AO Workflow SS Calcium [Mass/Vol] 8.9 mg/dL Normal 8.4 - 10. 2 mg/dL AO ADM SS Chloride [Moles/Vol] 103 mmol/L Normal 98 - 10 7 mmol/L AO ADM SS CO2 [Moles/Vol] 25 mmol/L Normal 23 - 31 mmol/L AO ADM SS Creatinine [Mass/Vol] 2.26 mg/dL High 0.70 - 1.30 mg/dL AO ADM SS Electrolyte Balance 11.0 mEq/L Normal 4.0 - 15 .0 mEq/L AO ADM SS Eosinophil, Absolute 0.2 103/mcL Normal 0.0 - 0 .4 10^3/mcL AO Workflow SS Eosinophils/100 WBC (Bld) 5.4 % Normal 0.0 - 7.0 % AO Workflow SS Erythrocyte distribution width (RBC) [Ratio] 15.7 % High 11.5 - 14.5 % AO Workflow SS GFR/1.73 sq M.predicted among blacks MDRD (S/P/Bld) [Vol rate/Area] 34 ml/min/1.73sqm Invalid Interpretation Code AO Chemistry S Comment on above: Interpretive Data: GFR Population mean for , Non- Americans Ages 20-29 = 116 mL/min/1.73 sq.m. Ages 30-39 = 107 mL/min/1.73 sq.m. Ages 40-49 = 99 mL/min/1.73 sq.m. Ages 50-59 = 93 mL/min/1.73 sq.m. Ages 60-69 = 85 mL/min/1.73 sq.m. Ages 70+ = 75 mL/min/1.73 sq.m. Chronic Kidney Disease: Less than 60 mL/min/1.73 square meters End Stage Renal Disease: Less than 15 mL/min/1.73 square meters GFR/1.73 sq M.predicted among non-blacks MDRD (S/P/Bld) [Vol rate/Area] 28 ml/min/1.73sqm Invalid Interpretation Code AO Chemistry S Comment on above: Interpretive Data: GFR Population mean for , Non- Americans Ages 20-29 = 116 mL/min/1.73 sq.m. Ages 30-39 = 107 mL/min/1.73 sq.m. Ages 40-49 = 99 mL/min/1.73 sq.m. Ages 50-59 = 93 mL/min/1.73 sq.m. Ages 60-69 = 85 mL/min/1.73 sq.m. Ages 70+ = 75 mL/min/1.73 sq.m. Chronic Kidney Disease: Less than 60 mL/min/1.73 square meters End Stage Renal Disease: Less than 15 mL/min/1.73 square meters Glucose [Mass/Vol] 164 mg/dL High 83 - 110 mg/dL AO ADM SS Hematocrit (Bld) [Volume fraction] 30.0 % Low 42.0 - 52.0 % AO Workflow SS Hemoglobin (Bld) [Mass/Vol] 10.0 G/dL Low 14.0 - 18.0 G/dL AO Workflow SS Lymphocyte, Absolute 0.3 103/mcL Low 0.8 - 3 .9 10^3/mcL AO Workflow SS Lymphocytes/100 WBC (Bld) 8.2 % Low 10.0 - 50.0 % AO Workflow SS MCH (RBC) [Entitic mass] 30.4 pg Normal 27.0 - 31.2 pg AO Workflow SS MCHC 33.4 G/dL Normal 31.8 - 35.4 G/dL AO Workflow SS MCV (RBC) [Entitic vol] 91.2 fL Normal 80.0 - 94.0 fL AO Workflow SS Monocyte distribution width Auto (Bld) [Entitic vol] 19.90 1 Normal 0.00 - 20.00 AO Workflow SS Comment on above: Result Comment: For ED adult patients suspected of sepsis, MDW<=20.0 does not rule out sepsis or risk of sepsis Monocyte, Absolute 0.5 103/mcL Normal 0.2 - 1.0 10^3/mcL AO Workflow SS Monocytes/100 WBC (Bld) 15.5 % High 1.7 - 13.0 % AO Workflow SS Neutrophil, Absolute 2.4 103/mcL Low 2.9 - 6 .2 10^3/mcL AO Workflow SS Neutrophils/100 WBC (Bld) 70.1 % Normal 37.0 - 80.0 % AO Workflow SS Platelet mean volume (Bld) [Entitic vol] 6.8 fL Low 7.4 - 10.4 fL AO Workflow SS Platelets (Bld) [#/Vol] 148 103/mcL Normal 130 - 400 10^3/mcL AO Workflow SS Potassium [Moles/Vol] 4.8 mmol/L Normal 3.5 - 5.1 mmol/L AO ADM SS RBC (Bld) [#/Vol] 3.30 106/mcL Low 4.04 - 6.1 3 10^6/mcL AO Workflow SS Sodium [Moles/Vol] 139 mmol/L Normal 136 - 145 mmol/L AO ADM SS Urea nitrogen [Mass/Vol] 48 mg/dL High 7 - 18 mg/dL AO ADM SS Urea nitrogen/Creatinine [Mass ratio] 21 ratio Normal 7 - 27 ratio AO ADM SS WBC (Bld) [#/Vol] 3.5 103/mcL Low 4.6 - 10.8 10^3/mcL AO Workflow SS UAon 08-28-2023 Color (U) Yellow Normal [facility] ([place]) Comment on above: Performed By: #### U A ####[address] [place], [place] [address] Glucose (U) [Mass/Vol] Negative Normal Negative [facility] ([place]) Comment on above: Performed By: #### U A ####[address] [place], [place] [address] Ketones Ql (U) Negative Normal Negative [facility] ([place] Comment on above: Performed By: #### U A ####[address] [place], [place] [address] UA Appear Clear Normal Clear [facility] ([place]) Comment on above: Performed By: #### U A ####[address] [place] [address] UA Blood Trace Abnormal Negative [facility] ([place] Comment on above: Performed By: #### U A ####[address] [place] [address] UA Leuk Est Negative Normal Negative [facility] ([place] Comment on above: Performed By: #### U A ####[address] [place], [place] [address] UA Nitrite Negative Normal Negative [facility] ([place] Comment on above: Performed By: #### U A ####[address] [place] [address] UA pH 5.5 Normal 5.0 - 8.0 [facility] ([place]) Comment on above: Performed By: #### U A ####[address] [place], [place] [address] UA Protein Negative Normal Negative [facility] ([place]) Comment on above: Performed By: #### U A ####[address] [place] [address] UA Spec Grav 1.020 Normal 1.015-1.025 [facility] ([place]) Comment on above: Performed By: #### U A ####[address] [place], [place] [address] UA Specimen Type Clean Catch Normal [facility] ([place]) Comment on above: Performed By: #### U A ####[address] [place], [place] [address] UA Urobilinogen 0.2 E.U./dL Normal 0.2-1.0 [facility] ([place]) Comment on above: Performed By: #### U A ####[address] [place], [place] [address] Urobilinogen (U) [Mass/Vol] Negative Normal Negative [facility] ([place]) Comment on above: Performed By: #### U A ####[address] [place], [place] [address] US ABDOMEN LIMITEDon 023 US ABDOMEN LIMITED Normal [facility] ([place]) .Auto Diffon 06-20-2023 Basophil, Absolute 0.0 10 3/mcL Normal 0.0-0.3 [facility] ([place]) Comment on above: Performed By: #### C BC, PSA, ADIFF, CMP, ANEU, LD, GFR ####[address] [address] Basophils/100 WBC (Bld) 1.1 % Normal 0.0-2.5 [facility] ([place]) Comment on above: Performed By: #### C BC, PSA, ADIFF, CMP, ANEU, LD, GFR ####[address] [address] Eosinophil, Absolute 0.3 10 3/mcL Normal 0.0-0.7 [facility] ([place]) Comment on above: Performed By: #### C BC, PSA, ADIFF, CMP, ANEU, LD, GFR ####[address] [address] Eosinophils/100 WBC (Bld) 8.9 % High 0.0-6.0 [facility] ([place]) Comment on above: Performed By: #### C BC, PSA, ADIFF, CMP, ANEU, LD, GFR ####[address] [address] Lymphocyte, Absolute 0.3 10 3/mcL Low 0.9-4.3 [facility] ([place]) Comment on above: Performed By: #### C BC, PSA, ADIFF, CMP, ANEU, LD, GFR ####[address] [address] Lymphocytes/100 WBC (Bld) 10.7 % Low 20.0-40.0 [facility] ([place] Comment on above: Performed By: #### C BC, PSA, ADIFF, CMP, ANEU, LD, GFR ####[address] [address] Monocyte, Absolute 0.4 10 3/mcL Normal 0.1-1.4 [facility] ([place]) Comment on above: Performed By: #### C BC, PSA, ADIFF, CMP, ANEU, LD, GFR ####[address] [address] Monocytes/100 WBC (Bld) 15.6 % High 2.0-13.0 [facility] ([place]) Comment on above: Performed By: #### C BC, PSA, ADIFF, CMP, ANEU, LD, GFR ####[address] [address] Neutrophils/100 WBC (Bld) 63.7 % Normal 50.0-75.0 [facility] ([place] Comment on above: Performed By: #### C BC, PSA, ADIFF, CMP, ANEU, LD, GFR ####[address] [address] .GFRon 06-20-2023 GFR Non- >60 Normal [facility] ([place]) Comment on above: Result Comment: GFR Population mean for , Non- Americans Ages 20-29 = 116 mL/min/1.73 sq.m. Ages 30-39 = 107 mL/min/1.73 sq.m. Ages 40-49 = 99 mL/min/1.73 sq.m. Ages 50-59 = 93 mL/min/1.73 sq.m. Ages 60-69 = 85 mL/min/1.73 sq.m. Ages 70+ = 75 mL/min/1.73 sq.m.Chronic Kidney Disease: Less than 60 mL/min/1.73 square metersEnd Stage Renal Disease: Less than 15 mL/min/1.73 square meters Performed By: #### C BC, PSA, ADIFF, CMP, ANEU, LD, GFR ####[address] [address] GFR >60 Normal [facility] ([place] Comment on above: Result Comment: GFR Population mean for , Non- Americans Ages 20-29 = 116 mL/min/1.73 sq.m. Ages 30-39 = 107 mL/min/1.73 sq.m. Ages 40-49 = 99 mL/min/1.73 sq.m. Ages 50-59 = 93 mL/min/1.73 sq.m. Ages 60-69 = 85 mL/min/1.73 sq.m. Ages 70+ = 75 mL/min/1.73 sq.m.Chronic Kidney Disease: Less than 60 mL/min/1.73 square metersEnd Stage Renal Disease: Less than 15 mL/min/1.73 square meters Performed By: #### C BC, PSA, ADIFF, CMP, ANEU, LD, GFR ####[place] [address] .NEUABSon 06-20-2023 Neutrophil, Absolute 1.8 10 3/mcL Low 2.3-8.1 [facility] ([place] Comment on above: Performed By: #### C BC, PSA, ADIFF, CMP, ANEU, LD, GFR ####[place] [address] CBCon 06-20-2023 Erythrocyte distribution width (RBC) [Ratio] 14.4 % Normal 11.5-15.5 [facility] ([place]) Comment on above: Performed By: #### C BC, PSA, ADIFF, CMP, ANEU, LD, GFR ####[place] [address] Hematocrit (Bld) [Volume fraction] 33.6 % Low 40.0-52.0 [facility] ([place] Comment on above: Performed By: #### C BC, PSA, ADIFF, CMP, ANEU, LD, GFR ####[place] [address] Hgb 11.1 G/dL Low 13.0-17.5 [facility] ([place] Comment on above: Performed By: #### C BC, PSA, ADIFF, CMP, ANEU, LD, GFR ####[place] [address] MCH (RBC) [Entitic mass] 29.8 pg Normal 27.0-33.0 [facility] ([place] Comment on above: Performed By: #### C BC, PSA, ADIFF, CMP, ANEU, LD, GFR ####[place] [address] MCHC 32.9 G/dL Normal 32.0-36.0 [facility] ([place] Comment on above: Performed By: #### C BC, PSA, ADIFF, CMP, ANEU, LD, GFR ####[place] [address] MCV (RBC) [Entitic vol] 90.5 fL Normal 81.0-100.0 [facility] ([place] Comment on above: Performed By: #### C BC, PSA, ADIFF, CMP, ANEU, LD, GFR ####[place] [address] Platelet 129 10 3/mcL Low 150-450 [facility] ([place] Comment on above: Performed By: #### C BC, PSA, ADIFF, CMP, ANEU, LD, GFR ####[place] [address] Platelet mean volume (Bld) [Entitic vol] 7.2 fL Normal 6.4-10.5 [facility] ([place] Comment on above: Performed By: #### C BC, PSA, ADIFF, CMP, ANEU, LD, GFR ####[place] [address] RBC 3.72 10 6/mcL Low 4.50-6.00 [facility] ([place] Comment on above: Performed By: #### C BC, PSA, ADIFF, CMP, ANEU, LD, GFR ####[place] [address] WBC 2.8 10 3/mcL Low 4.5-10.8 [facility] ([place] Comment on above: Performed By: #### C BC, PSA, ADIFF, CMP, ANEU, LD, GFR ####[place] [address] CMPon 06-20-2023 Albumin Level 3.4 G/dL Normal 3.2-4.8 [facility] ([place] Comment on above: Performed By: #### C BC, PSA, ADIFF, CMP, ANEU, LD, GFR ####[address] [address] Albumin/Globulin [Mass ratio] 1.0 {ratio} Normal 0.9-1.6 [facility] ([place] Comment on above: Performed By: #### C BC, PSA, ADIFF, CMP, ANEU, LD, GFR ####[address] [address] ALP [Catalytic activity/Vol] 58 U/L Normal 38-126 [facility] ([place] Comment on above: Performed By: #### C BC, PSA, ADIFF, CMP, ANEU, LD, GFR ####[address] [address] ALT [Catalytic activity/Vol] 20 U/L Normal 12-55 [facility] ([place] Comment on above: Performed By: #### C BC, PSA, ADIFF, CMP, ANEU, LD, GFR ####[address] [address] AST [Catalytic activity/Vol] 30 U/L Normal 8-34 [facility] ([place] Comment on above: Performed By: #### C BC, PSA, ADIFF, CMP, ANEU, LD, GFR ####[address] [address] Bili Total 0.30 mg/dL Normal 0.20-1.20 [facility] ([place]) Comment on above: Result Comment: Use of this assay is not recommended for patients undergoing treatment with eltrombopag due to the potential for falsely elevated results. Performed By: #### C BC, PSA, ADIFF, CMP, ANEU, LD, GFR ####[address] [address] BUN/Creatinine Ratio 25.0 ratio High 10.0-22.0 [facility] ([place] Comment on above: Performed By: #### C BC, PSA, ADIFF, CMP, ANEU, LD, GFR ####[address] [address] Calcium [Mass/Vol] 9.3 mg/dL Normal 8.7-10.4 [facility] ([place] Comment on above: Performed By: #### C BC, PSA, ADIFF, CMP, ANEU, LD, GFR ####[address] [address] Chloride [Moles/Vol] 107 mmol/L Normal 98-110 [facility] ([place] Comment on above: Performed By: #### C BC, PSA, ADIFF, CMP, ANEU, LD, GFR ####[address] [address] CO2 [Moles/Vol] 27 mmol/L Normal 22-32 [facility] ([place] Comment on above: Performed By: #### C BC, PSA, ADIFF, CMP, ANEU, LD, GFR ####[place] [address] Creatinine [Mass/Vol] 1.12 mg/dL Normal 0.60-1.40 [facility] ([place] Comment on above: Performed By: #### C BC, PSA, ADIFF, CMP, ANEU, LD, GFR ####[place] [address] Electrolyte Balance 4.0 mEq/L Normal 4.0-15.0 [facility] ([place]) Comment on above: Performed By: #### C BC, PSA, ADIFF, CMP, ANEU, LD, GFR ####[place] [id number] Globulin 3.5 G/dL Normal 1.5-3.8 [facility] ([place] Comment on above: Performed By: #### C BC, PSA, ADIFF, CMP, ANEU, LD, GFR ####[place] [address] Glucose [Mass/Vol] 106 mg/dL Normal 82-115 [facility] ([place]) Comment on above: Performed By: #### C BC, PSA, ADIFF, CMP, ANEU, LD, GFR ####[address] [id number] Potassium [Moles/Vol] 4.4 mmol/L Normal 3.5-5.0 [facility] ([place]) Comment on above: Result Comment: Spec imen slightly hemolyzed. Performed By: #### C BC, PSA, ADIFF, CMP, ANEU, LD, GFR ####[address] [id number] Sodium [Moles/Vol] 138 mmol/L Normal 136-145 [facility] ([place]) Comment on above: Performed By: #### C BC, PSA, ADIFF, CMP, ANEU, LD, GFR ####[place] [id number] [address] [place] [id number] Total Protein 6.9 G/dL Normal 5.7-8.2 [facility] ([place]) Comment on above: Result Comment: No te - New Reference Range in effect 20 Performed By: #### C BC, PSA, ADIFF, CMP, ANEU, LD, GFR ####[address] [id number] Urea nitrogen [Mass/Vol] 28.0 mg/dL High 8.0-22.0 [facility] ([place]) Comment on above: Performed By: #### C BC, PSA, ADIFF, CMP, ANEU, LD, GFR ####[address] [address] LABORATORYOrdered By: SYSTEM SYSTEM on 06-20-2023 Albumin BCP dye [Mass/Vol] 3.4 G/dL Invalid Interpretation Code 3.2 - 4.8 G/dL ADM SS Albumin/Globulin [Mass ratio] 1.0 {ratio} Invalid Interpretation Code 0.9 - 1.6 ratio AH ADM SS ALP [Catalytic activity/Vol] 58 U/L Invalid Interpretation Code 38 - 126 U/L AH ADM SS ALT No additional P-5'-P [Catalytic activity/Vol] 20 U/L Invalid Interpretation Code 12 - 55 U/L AH ADM SS AST [Catalytic activity/Vol] 30 U/L Invalid Interpretation Code 8 - 34 U/L AH ADM SS Basophils (Bld) [#/Vol] 0.0 103/mcL Invalid Interpretation Code 0.0 - 0.3 10^3/mcL AH Workflow SS Basophils/100 WBC (Bld) 1.1 % Invalid Interpretation Code 0.0 - 2.5 % AH Workflow SS Bilirubin [Mass/Vol] 0.30 mg/dL Invalid Interpretation Code 0.20 - 1.20 mg/dL ADM SS Comment on above: Interpretive Data: U se of this assay is not recommended for patients undergoing treatment with eltrombopag due to the potential for falsely elevated results. Calcium [Mass/Vol] 9.3 mg/dL Invalid Interpretation Code 8.7 - 10.4 mg/dL ADM SS Chloride [Moles/Vol] 107 mmol/L Invalid Interpretation Code 98 - 110 mEq/L ADM SS CO2 [Moles/Vol] 27 mmol/L Invalid Interpretation Code 22 - 32 mEq/L ADM SS Creatinine [Mass/Vol] 1.12 mg/dL Invalid Interpretation Code 0.60 - 1.40 mg/dL ADM SS Electrolyte Balance 4.0 mEq/L Invalid Interpretation Code 4.0 - 15.0 mEq/L ADM SS Eosinophils (Bld) [#/Vol] 0.3 103/mcL Invalid Interpretation Code 0.0 - 0.7 10^3/mcL Workflow SS Eosinophils/100 WBC (Bld) 8.9 % Invalid Interpretation Code 0.0 - 6.0 % AH Workflow SS Erythrocyte distribution width (RBC) [Ratio] 14.4 % Invalid Interpretation Code 11.5 - 15.5 % Workflow SS GFR/1.73 sq M.predicted among blacks MDRD (S/P/Bld) [Vol rate/Area] ml/min/1.73sqm Invalid Interpretation Code ADM SS Comment on above: Interpretive Data: GFR Population mean for , Non- Americans Ages 20-29 = 116 mL/min/1.73 sq.m. Ages 30-39 = 107 mL/min/1.73 sq.m. Ages 40-49 = 99 mL/min/1.73 sq.m. Ages 50-59 = 93 mL/min/1.73 sq.m. Ages 60-69 = 85 mL/min/1.73 sq.m. Ages 70+ = 75 mL/min/1.73 sq.m. Chronic Kidney Disease: Less than 60 mL/min/1.73 square meters End Stage Renal Disease: Less than 15 mL/min/1.73 square meters GFR/1.73 sq M.predicted among non-blacks MDRD (S/P/Bld) [Vol rate/Area] ml/min/1.73sqm Invalid Interpretation Code ADM SS Comment on above: Interpretive Data: GFR Population mean for , Non- Americans Ages 20-29 = 116 mL/min/1.73 sq.m. Ages 30-39 = 107 mL/min/1.73 sq.m. Ages 40-49 = 99 mL/min/1.73 sq.m. Ages 50-59 = 93 mL/min/1.73 sq.m. Ages 60-69 = 85 mL/min/1.73 sq.m. Ages 70+ = 75 mL/min/1.73 sq.m. Chronic Kidney Disease: Less than 60 mL/min/1.73 square meters End Stage Renal Disease: Less than 15 mL/min/1.73 square meters Globulin 3.5 G/dL Invalid Interpretation Code 1.5 - 3.8 G/dL ADM SS Glucose [Mass/Vol] 106 mg/dL Invalid Interpretation Code 82 - 115 mg/dL ADM SS Hematocrit (Bld) [Volume fraction] 33.6 % Invalid Interpretation Code 40.0 - 52.0 % Workflow SS Hemoglobin (Bld) [Mass/Vol] 11.1 G/dL Invalid Interpretation Code 13.0 - 17.5 G/dL Workflow SS LDH Lactate to pyruvate reaction [Catalytic activity/Vol] 240 1 Invalid Interpretation Code 120 - 246 U/L ADM SS Lymphocytes (Bld) [#/Vol] 0.3 103/mcL Invalid Interpretation Code 0.9 - 4.3 10^3/mcL AH Workflow SS Lymphocytes/100 WBC (Bld) 10.7 % Invalid Interpretation Code 20.0 - 40.0 % Workflow SS MCH (RBC) [Entitic mass] 29.8 pg Invalid Interpretation Code 27.0 - 33.0 pg Workflow SS MCHC 32.9 G/dL Invalid Interpretation Code 32.0 - 36.0 G/dL Workflow SS MCV (RBC) [Entitic vol] 90.5 fL Invalid Interpretation Code 81.0 - 100.0 fL Workflow SS Monocytes (Bld) [#/Vol] 0.4 103/mcL Invalid Interpretation Code 0.1 - 1.4 10^3/mcL Workflow SS Monocytes/100 WBC (Bld) 15.6 % Invalid Interpretation Code 2.0 - 13.0 % Workflow SS Neutrophils (Bld) [#/Vol] 1.8 103/mcL Invalid Interpretation Code 2.3 - 8.1 10^3/mcL AH Workflow SS Neutrophils/100 WBC (Bld) 63.7 % Invalid Interpretation Code 50.0 - 75.0 % AH Workflow SS Platelet mean volume (Bld) [Entitic vol] 7.2 fL Invalid Interpretation Code 6.4 - 10.5 fL Workflow SS Platelets (Bld) [#/Vol] 129 103/mcL Invalid Interpretation Code 150 - 450 10^3/mcL Workflow SS Potassium [Moles/Vol] 4.4 mmol/L Invalid Interpretation Code 3.5 - 5.0 mEq/L ADM SS Comment on above: Result Comment: Spec imen slightly hemolyzed. Prostate specific Ag [Mass/Vol] 0.77 ng/mL Invalid Interpretation Code 0.02 - 4.00 ng/mL ADM SS Comment on above: Interpretive Data: P atient results determined by assays using different manufacturers for methods may not be comparable. Protein [Mass/Vol] 6.9 G/dL Invalid Interpretation Code 5.7 - 8.2 G/dL AH ADM SS Comment on above: Interpretive Data: * *Note - New Reference Range in effect 20 RBC (Bld) [#/Vol] 3.72 106/mcL Invalid Interpretation Code 4.50 - 6.00 10^6/mcL Workflow SS Sodium [Moles/Vol] 138 mmol/L Invalid Interpretation Code 136 - 145 mEq/L ADM SS Urea nitrogen [Mass/Vol] 28.0 mg/dL Invalid Interpretation Code 8.0 - 22.0 mg/dL AH ADM SS Urea nitrogen/Creatinine [Mass ratio] 25.0 ratio Invalid Interpretation Code 10.0 - 22.0 ratio AH ADM SS WBC (Bld) [#/Vol] 2.8 103/mcL Invalid Interpretation Code 4.5 - 10.8 10^3/mcL Workflow SS LDHon 06-20-2023 LDH 240 U/L Normal 120-246 [facility] ([place]) Comment on above: Performed By: #### C BC, PSA, ADIFF, CMP, ANEU, LD, GFR ####[place] [address] PSAon 06-20-2023 Prostate Specific Antigen 0.77 ng/mL Normal 0.02-4.00 [facility] ([place]) Comment on above: Result Comment: Barbara ent results determined by assays using different manufacturers for methods may not be comparable. Performed By: #### C BC, PSA, ADIFF, CMP, ANEU, LD, GFR ####[place] [address] .GFRon 06-01-2023 GFR Non- 53 ml/min/1.73sqm Normal [facility] ([place]) Comment on above: Result Comment: GFR Population mean for , Non- Americans Ages 20-29 = 116 mL/min/1.73 sq.m. Ages 30-39 = 107 mL/min/1.73 sq.m. Ages 40-49 = 99 mL/min/1.73 sq.m. Ages 50-59 = 93 mL/min/1.73 sq.m. Ages 60-69 = 85 mL/min/1.73 sq.m. Ages 70+ = 75 mL/min/1.73 sq.m.Chronic Kidney Disease: Less than 60 mL/min/1.73 square metersEnd Stage Renal Disease: Less than 15 mL/min/1.73 square meters Performed By: #### B MP, MDW, ADIFF, GFR, CBC, ANEU ####[place] [address] GFR >60 Normal [facility] ([place]) Comment on above: Result Comment: GFR Population mean for , Non- Americans Ages 20-29 = 116 mL/min/1.73 sq.m. Ages 30-39 = 107 mL/min/1.73 sq.m. Ages 40-49 = 99 mL/min/1.73 sq.m. Ages 50-59 = 93 mL/min/1.73 sq.m. Ages 60-69 = 85 mL/min/1.73 sq.m. Ages 70+ = 75 mL/min/1.73 sq.m.Chronic Kidney Disease: Less than 60 mL/min/1.73 square metersEnd Stage Renal Disease: Less than 15 mL/min/1.73 square meters Performed By: #### B ERICK CALVO, EZRA, GFR, CBC, ANEU ####[address] [address] BMPon 06-01-2023 BUN/Creatinine Ratio 21.1 ratio Normal 10.0-22.0 [facility] ([place]) Comment on above: Performed By: #### B ERICK CALVO, EZRA, GFR, CBC, ANEU ####[place] [address] Calcium [Mass/Vol] 10.4 mg/dL Normal 8.7-10.4 [facility] ([place]) Comment on above: Performed By: #### B ERICK CALVO, EZRA, GFR, CBC, ANEU ####[place] [address] Chloride [Moles/Vol] 104 mmol/L Normal 98-110 [facility] ([place]) Comment on above: Performed By: #### B ERICK CALVO, EZRA, GFR, CBC, ANEU ####[place] [address] CO2 [Moles/Vol] 27 mmol/L Normal 22-32 [facility] ([place]) Comment on above: Performed By: #### B ERICK CALVO, EZRA, GFR, CBC, ANEU ####[place] [address] Creatinine [Mass/Vol] 1.28 mg/dL Normal 0.60-1.40 [facility] ([place]) Comment on above: Performed By: #### ERICK Chamorro MP, EZRA, GFR, CBC, ANEU ####[place] [address] Electrolyte Balance 6.0 mEq/L Normal 4.0-15.0 [facility] ([place]) Comment on above: Performed By: #### ERICK Chamorro MP, EZRA, GFR, CBC, ANEU ####[place] [address] Glucose [Mass/Vol] 116 mg/dL High 82-115 [facility] ([place]) Comment on above: Performed By: #### B ERICK CALVO, ADIFF, GFR, CBC, ANEU ####[facility] [place] [address] Potassium [Moles/Vol] 4.6 mmol/L Normal 3.5-5.0 [facility] ([place]) Comment on above: Performed By: #### B ERICK CALVO, EZRA, GFR, CBC, ANEU ####[place] [address] [place] [address] Sodium [Moles/Vol] 137 mmol/L Normal 136-145 [facility] ([place]) Comment on above: Performed By: #### B ERICK CALVO, ADSERGEI, GFR, CBC, ANEU ####[place] [address] [place] [address] Urea nitrogen [Mass/Vol] 27.0 mg/dL High 8.0-22.0 [facility] ([place]) Comment on above: Performed By: #### B ERICK CALVO, EZRA, GFR, CBC, ANEU ####[address] [address] [address] ABD/PELVIS W/ IV CONTRAST ONLYon 06-01-2023 CT ABD/PELVIS W/ IV CONTRAST ONLY Normal [facility] ([place]) LABORATORYOrdered By: Sanjuanita Prater on 06-01-2023 Appearance (U) Clear (06/01/23 2:02 AM) Invalid Interpretation Code Clear AH Auto Urine SS Bilirubin Ql (U) Negative (06/01/23 2:02 AM) Invalid Interpretation Code Neg-Trace AH Auto Urine SS Color (U) Yellow (06/01/23 2:02 AM) Invalid Interpretation Code AH Auto Urine SS Glucose Test strip (U) [Mass/Vol] Negative Invalid Interpretation Code Negative AH Auto Urine SS Hemoglobin Auto test strip (U) [Mass/Vol] Negative (06/01/23 2:02 AM) Invalid Interpretation Code Neg-Trace AH Auto Urine SS Ketones Ql (U) Negative Invalid Interpretation Code Neg-Trace AH Auto Urine SS UA Leuk Est Negative (06/01/23 2:02 AM) Invalid Interpretation Code Negative AH Auto Urine SS UA Nitrite Negative (06/01/23 2:02 AM) Invalid Interpretation Code Negative AH Auto Urine SS UA pH 6.0 (06/01/23 2:02 AM) Invalid Interpretation Code 5.0 - 8.0 Auto Urine SS UA Protein Negative Invalid Interpretation Code Negative Auto Urine SS UA Spec Grav >=1.030 *ABN* (06/01/23 2:02 AM) Invalid Interpretation Code 1.006-1.029 Auto Urine SS UA Specimen Type Clean Catch (06/01/23 2:02 AM) Invalid Interpretation Code AH Auto Urine SS UA Urobilinogen 0.2 E.U./dL Invalid Interpretation Code 0.2-1.0 Auto Urine SS UAon 06-01-2023 Color (U) Yellow Normal [facility] ([place]) Comment on above: Performed By: #### U A ####[place] [address] Glucose (U) [Mass/Vol] Negative Normal Negative [facility] ([place]) Comment on above: Performed By: #### U A ####[place] [address] Ketones Ql (U) Negative Normal Neg-Trace [facility] ([place]) Comment on above: Performed By: #### U A ####[place] [address] UA Appear Clear Normal Clear [facility] ([place] Comment on above: Performed By: #### U A ####[place] [address] UA Blood Negative Normal Neg-Trace [facility] ([place] Comment on above: Performed By: #### U A ####[place] [address] UA Leuk Est Negative Normal Negative [facility] ([place]) Comment on above: Performed By: #### U A ####[place] [address] UA Nitrite Negative Normal Negative [facility] ([place] Comment on above: Performed By: #### U A ####[place] [address] UA pH 6.0 Normal 5.0 - 8.0 [facility] ([place]) Comment on above: Performed By: #### U A ####[place] [id number] UA Protein Negative Normal Negative [facility] ([place] Comment on above: Performed By: #### U A ####[place] [address] UA Spec Grav >=1.030 Abnormal 1.006-1.029 [facility] ([place] Comment on above: Performed By: #### U A ####[place] [address] UA Specimen Type Clean Catch Normal [facility] ([place] Comment on above: Performed By: #### U A ####[place] [address] UA Urobilinogen 0.2 E.U./dL Normal 0.2-1.0 [facility] ([place]) Comment on above: Performed By: #### U A ####[place] [address] Urobilinogen (U) [Mass/Vol] Negative Normal Neg-Trace [facility] ([place]) Comment on above: Performed By: #### U A ####[place] [address] .Auto Diffon 05-31-2023 Basophil, Absolute 0.0 10 3/mcL Normal 0.0-0.3 [facility] ([place]) Comment on above: Performed By: #### B ERICK CALVO, ADIFF, GFR, CBC, ANEU ####[place] [address] Basophils/100 WBC (Bld) 0.3 % Normal 0.0-2.5 [facility] ([place]) Comment on above: Performed By: #### B ERICK CALVO, ADIFF, GFR, CBC, ANEU ####[place] [address] Eosinophil, Absolute 0.4 10 3/mcL Normal 0.0-0.7 [facility] ([place]) Comment on above: Performed By: #### B ERICK CALVO, ADIFF, GFR, CBC, ANEU ####[place] [address] Eosinophils/100 WBC (Bld) 4.1 % Normal 0.0-6.0 [facility] ([place] Comment on above: Performed By: #### B ERICK CALVO, ADIFF, GFR, CBC, ANEU ####[address] [address] Lymphocyte, Absolute 0.8 10 3/mcL Low 0.9-4.3 [facility] ([place]) Comment on above: Performed By: #### B LUBNA, ERICK, ADIFF, GFR, CBC, ANEU ####[address] [address] Lymphocytes/100 WBC (Bld) 8.3 % Low 20.0-40.0 [facility] ([place]) Comment on above: Performed By: #### B LUBNA, ERICK, ADIFF, GFR, CBC, ANEU ####[address] [address] Monocyte, Absolute 0.8 10 3/mcL Normal 0.1-1.4 [facility] ([place]) Comment on above: Performed By: #### B LUBNA, ERICK, ADIFF, GFR, CBC, ANEU ####[address] [address] Monocytes/100 WBC (Bld) 8.8 % Normal 2.0-13.0 [facility] ([place]) Comment on above: Performed By: #### B LUBNA, ERICK, ADIFF, GFR, CBC, ANEU ####[address] [address] Neutrophils/100 WBC (Bld) 78.5 % High 50.0-75.0 [facility] ([place]) Comment on above: Performed By: #### B LUBNA, W, ADIFF, GFR, CBC, ANEU ####[address] [address] .MDWon 05-31-2023 Monocyte Distribution Width 17.55 Normal 0.00-20.00 [facility] ([place]) Comment on above: Result Comment: For ED adult patients suspected of sepsis, MDW<=20.0 does not rule out sepsis or risk of sepsis Performed By: #### B LUBNA, MDW, ADIFF, GFR, CBC, ANEU ####[place] [address] .NEUABSon 05-31-2023 Neutrophil, Absolute 7.2 10 3/mcL Normal 2.3-8.1 [facility] ([place]) Comment on above: Performed By: #### B ERICK CALVO, EZRA, GFR, CBC, ANEU ####[place] [address] CBCon 05-31-2023 Erythrocyte distribution width (RBC) [Ratio] 14.7 % Normal 11.5-15.5 [facility] ([place]) Comment on above: Performed By: #### B ERICK CALVO ADIFF, GFR, CBC, ANEU ####[place] [address] Hematocrit (Bld) [Volume fraction] 37.7 % Low 40.0-52.0 [facility] ([place] Comment on above: Performed By: #### B ERICK CALVO ADIFF, GFR, CBC, ANEU ####[place] [address] Hgb 12.4 G/dL Low 13.0-17.5 [facility] ([place] Comment on above: Performed By: #### B ERICK CALVO ADIFF, GFR, CBC, ANEU ####[place] [address] MCH (RBC) [Entitic mass] 29.5 pg Normal 27.0-33.0 [facility] ([place] Comment on above: Performed By: #### B ERICK CALVO ADIFF, GFR, CBC, ANEU ####[place] [address] MCHC 32.9 G/dL Normal 32.0-36.0 [facility] ([place]) Comment on above: Performed By: #### B ERICK CALVO ADIFF, GFR, CBC, ANEU ####[place] [address] MCV (RBC) [Entitic vol] 89.8 fL Normal 81.0-100.0 [facility] ([place] Comment on above: Performed By: #### B ERICK CALVO, EZRA, GFR, CBC, ANEU ####[place] [address] Platelet 171 10 3/mcL Normal 150-450 [facility] ([place]) Comment on above: Performed By: #### B ERICK CALVO, ADSERGEI, GFR, CBC, ANEU ####[place] [address] Platelet mean volume (Bld) [Entitic vol] 8.1 fL Normal 6.4-10.5 [facility] ([place] Comment on above: Performed By: #### B ERICK CALVO, EZRA, GFR, CBC, ANEU ####[place] [address] RBC 4.20 10 6/mcL Low 4.50-6.00 [facility] ([place] Comment on above: Performed By: #### B ERICK CALVO, EZRA, GFR, CBC, ANEU ####[place] [address] WBC 9.2 10 3/mcL Normal 4.5-10.8 [facility] ([place] Comment on above: Performed By: #### B ERICK CALVO, ADSERGEI, GFR, CBC, ANEU ####[place] [address] LABORATORYOrdered By: SYSTEM SYSTEM on 05-31-2023 Basophils (Bld) [#/Vol] 0.0 103/mcL Invalid Interpretation Code 0.0 - 0.3 10^3/mcL AH Workflow SS Basophils/100 WBC (Bld) 0.3 % Invalid Interpretation Code 0.0 - 2.5 % AH Workflow SS Calcium [Mass/Vol] 10.4 mg/dL Invalid Interpretation Code 8.7 - 10.4 mg/dL AH ADM SS Chloride [Moles/Vol] 104 mmol/L Invalid Interpretation Code 98 - 110 mEq/L AH ADM SS CO2 [Moles/Vol] 27 mmol/L Invalid Interpretation Code 22 - 32 mEq/L ADM SS Creatinine [Mass/Vol] 1.28 mg/dL Invalid Interpretation Code 0.60 - 1.40 mg/dL ADM SS Electrolyte Balance 6.0 mEq/L Invalid Interpretation Code 4.0 - 15.0 mEq/L ADM SS Eosinophils (Bld) [#/Vol] 0.4 103/mcL Invalid Interpretation Code 0.0 - 0.7 10^3/mcL Workflow SS Eosinophils/100 WBC (Bld) 4.1 % Invalid Interpretation Code 0.0 - 6.0 % Workflow SS Erythrocyte distribution width (RBC) [Ratio] 14.7 % Invalid Interpretation Code 11.5 - 15.5 % Workflow SS GFR/1.73 sq M.predicted among blacks MDRD (S/P/Bld) [Vol rate/Area] ml/min/1.73sqm Invalid Interpretation Code ADM Comment on above: Interpretive Data: GFR Population mean for , Non- Americans Ages 20-29 = 116 mL/min/1.73 sq.m. Ages 30-39 = 107 mL/min/1.73 sq.m. Ages 40-49 = 99 mL/min/1.73 sq.m. Ages 50-59 = 93 mL/min/1.73 sq.m. Ages 60-69 = 85 mL/min/1.73 sq.m. Ages 70+ = 75 mL/min/1.73 sq.m. Chronic Kidney Disease: Less than 60 mL/min/1.73 square meters End Stage Renal Disease: Less than 15 mL/min/1.73 square meters GFR/1.73 sq M.predicted among non-blacks MDRD (S/P/Bld) [Vol rate/Area] 53 ml/min/1.73sqm Invalid Interpretation Code [facility] Comment on above: Interpretive Data: GFR Population mean for , Non- Americans Ages 20-29 = 116 mL/min/1.73 sq.m. Ages 30-39 = 107 mL/min/1.73 sq.m. Ages 40-49 = 99 mL/min/1.73 sq.m. Ages 50-59 = 93 mL/min/1.73 sq.m. Ages 60-69 = 85 mL/min/1.73 sq.m. Ages 70+ = 75 mL/min/1.73 sq.m. Chronic Kidney Disease: Less than 60 mL/min/1.73 square meters End Stage Renal Disease: Less than 15 mL/min/1.73 square meters Glucose [Mass/Vol] 116 mg/dL Invalid Interpretation Code 82 - 115 mg/dL AH ADM SS Hematocrit (Bld) [Volume fraction] 37.7 % Invalid Interpretation Code 40.0 - 52.0 % AH Workflow SS Hemoglobin (Bld) [Mass/Vol] 12.4 G/dL Invalid Interpretation Code 13.0 - 17.5 G/dL AH Workflow SS Lymphocytes (Bld) [#/Vol] 0.8 103/mcL Invalid Interpretation Code 0.9 - 4.3 10^3/mcL AH Workflow SS Lymphocytes/100 WBC (Bld) 8.3 % Invalid Interpretation Code 20.0 - 40.0 % AH Workflow SS MCH (RBC) [Entitic mass] 29.5 pg Invalid Interpretation Code 27.0 - 33.0 pg AH Workflow SS MCHC 32.9 G/dL Invalid Interpretation Code 32.0 - 36.0 G/dL AH Workflow SS MCV (RBC) [Entitic vol] 89.8 fL Invalid Interpretation Code 81.0 - 100.0 fL AH Workflow SS Monocyte distribution width Auto (Bld) [Entitic vol] 17.55 1 Invalid Interpretation Code 0.00 - 20.00 AH Workflow SS Comment on above: Result Comment: For ED adult patients suspected of sepsis, MDW<=20.0 does not rule out sepsis or risk of sepsis Monocytes (Bld) [#/Vol] 0.8 103/mcL Invalid Interpretation Code 0.1 - 1.4 10^3/mcL AH Workflow SS Monocytes/100 WBC (Bld) 8.8 % Invalid Interpretation Code 2.0 - 13.0 % AH Workflow SS Neutrophils (Bld) [#/Vol] 7.2 103/mcL Invalid Interpretation Code 2.3 - 8.1 10^3/mcL AH Workflow SS Neutrophils/100 WBC (Bld) 78.5 % Invalid Interpretation Code 50.0 - 75.0 % AH Workflow SS Platelet mean volume (Bld) [Entitic vol] 8.1 fL Invalid Interpretation Code 6.4 - 10.5 fL AH Workflow SS Platelets (Bld) [#/Vol] 171 103/mcL Invalid Interpretation Code 150 - 450 10^3/mcL AH Workflow SS Potassium [Moles/Vol] 4.6 mmol/L Invalid Interpretation Code 3.5 - 5.0 mEq/L ADM SS RBC (Bld) [#/Vol] 4.20 106/mcL Invalid Interpretation Code 4.50 - 6.00 10^6/mcL Workflow SS Sodium [Moles/Vol] 137 mmol/L Invalid Interpretation Code 136 - 145 mEq/L AH ADM SS Urea nitrogen [Mass/Vol] 27.0 mg/dL Invalid Interpretation Code 8.0 - 22.0 mg/dL ADM SS Urea nitrogen/Creatinine [Mass ratio] 21.1 ratio Invalid Interpretation Code 10.0 - 22.0 ratio AH ADM SS WBC (Bld) [#/Vol] 9.2 103/mcL Invalid Interpretation Code 4.5 - 10.8 10^3/mcL Workflow SS .Auto Diffon 05-23-2023 Basophil, Absolute 0.1 10 3/mcL Normal 0.0-0.2 [facility] ([place]) Comment on above: Performed By: #### I BC, A1C, FERR, GFR, CBC, CMP, ADIFF, ANEU, FE, LIPID ####[id number] [place], [place] [address] Basophils/100 WBC (Bld) 1.4 % Normal 0.0-2.5 [facility] ([place] Comment on above: Performed By: #### I BC, A1C, FERR, GFR, CBC, CMP, ADIFF, ANEU, FE, LIPID ####[address] [id number] [place], [place] [address] Eosinophil, Absolute 0.4 10 3/mcL Normal 0.0-0.4 [facility] ([place]) Comment on above: Performed By: #### I BC, A1C, FERR, GFR, CBC, CMP, ADIFF, ANEU, FE, LIPID ####[address] [place], [place] [address] Eosinophils/100 WBC (Bld) 9.4 % High 0.0-7.0 [facility] ([place] Comment on above: Performed By: #### I BC, A1C, FERR, GFR, CBC, CMP, ADIFF, ANEU, FE, LIPID ####[address] [place], [place] [address] Lymphocyte, Absolute 0.8 10 3/mcL Normal 0.8-3.9 [facility] ([place] Comment on above: Performed By: #### I BC, A1C, FERR, GFR, CBC, CMP, ADIFF, ANEU, FE, LIPID ####[address] [place], [place] [address] Lymphocytes/100 WBC (Bld) 20.4 % Normal 10.0-50.0 [facility] ([place] Comment on above: Performed By: #### I BC, A1C, FERR, GFR, CBC, CMP, ADIFF, ANEU, FE, LIPID ####[address] [place], [place] [address] Monocyte, Absolute 0.6 10 3/mcL Normal 0.2-1.0 [facility] ([place]) Comment on above: Performed By: #### I BC, A1C, FERR, GFR, CBC, CMP, ADIFF, ANEU, FE, LIPID ####[address] [place], [place] [address] Monocytes/100 WBC (Bld) 15.6 % High 1.7-13.0 [facility] ([place] Comment on above: Performed By: #### I BC, A1C, FERR, GFR, CBC, CMP, ADIFF, ANEU, FE, LIPID ####[id number] [place], [place] [address] Neutrophils/100 WBC (Bld) 53.2 % Normal 37.0-80.0 [facility] ([place] Comment on above: Performed By: #### I BC, A1C, FERR, GFR, CBC, CMP, ADIFF, ANEU, FE, LIPID ####[address] [place], [place] [address] .GFRon 05-23-2023 GFR Non- 50 ml/min/1.73sqm Normal [facility] ([place]) Comment on above: Result Comment: GFR Population mean for , Non- Americans Ages 20-29 = 116 mL/min/1.73 sq.m. Ages 30-39 = 107 mL/min/1.73 sq.m. Ages 40-49 = 99 mL/min/1.73 sq.m. Ages 50-59 = 93 mL/min/1.73 sq.m. Ages 60-69 = 85 mL/min/1.73 sq.m. Ages 70+ = 75 mL/min/1.73 sq.m.Chronic Kidney Disease: Less than 60 mL/min/1.73 square metersEnd Stage Renal Disease: Less than 15 mL/min/1.73 square meters Performed By: #### I BC, A1C, FERR, GFR, CBC, CMP, ADIFF, ANEU, FE, LIPID ####[address] [place], [place] [address] GFR 61 ml/min/1.73sqm Normal [facility] ([place] Comment on above: Result Comment: GFR Population mean for , Non- Americans Ages 20-29 = 116 mL/min/1.73 sq.m. Ages 30-39 = 107 mL/min/1.73 sq.m. Ages 40-49 = 99 mL/min/1.73 sq.m. Ages 50-59 = 93 mL/min/1.73 sq.m. Ages 60-69 = 85 mL/min/1.73 sq.m. Ages 70+ = 75 mL/min/1.73 sq.m.Chronic Kidney Disease: Less than 60 mL/min/1.73 square metersEnd Stage Renal Disease: Less than 15 mL/min/1.73 square meters Performed By: #### I BC, A1C, FERR, GFR, CBC, CMP, ADIFF, ANEU, FE, LIPID ####[address] [place], [place] [id number] .NEUABSon 05-23-2023 Neutrophil, Absolute 2.1 10 3/mcL Low 2.9-6.2 [facility] ([place]) Comment on above: Performed By: #### I BC, A1C, FERR, GFR, CBC, CMP, ADIFF, ANEU, FE, LIPID ####[address], [place] [address] A1Con 05-23-2023 HbA1c (Bld) [Mass fraction] 6.6 % High 4.3-6.4 [facility] ([place]) Comment on above: Performed By: #### I BC, A1C, FERR, GFR, CBC, CMP, ADIFF, ANEU, FE, LIPID ####[address] [place], [place] [address] CBCon 05-23-2023 Erythrocyte distribution width (RBC) [Ratio] 15.3 % High 11.5-14.5 [facility] ([place]) Comment on above: Performed By: #### I BC, A1C, FERR, GFR, CBC, CMP, ADIFF, ANEU, FE, LIPID ####[address] [place], [place] [address] Hematocrit (Bld) [Volume fraction] 35.8 % Low 42.0-52.0 [facility] ([place]) Comment on above: Performed By: #### I BC, A1C, FERR, GFR, CBC, CMP, ADIFF, ANEU, FE, LIPID ####[address] [place], [place] [address] Hgb 11.9 G/dL Low 14.0-18.0 [facility] ([place]) Comment on above: Performed By: #### I BC, A1C, FERR, GFR, CBC, CMP, ADIFF, ANEU, FE, LIPID ####[address] [place], [place] [address] MCH (RBC) [Entitic mass] 29.3 pg Normal 27.0-31.2 [facility] ([place]) Comment on above: Performed By: #### I BC, A1C, FERR, GFR, CBC, CMP, ADIFF, ANEU, FE, LIPID ####[address] [place], [place] [address] MCHC 33.4 G/dL Normal 31.8-35.4 [facility] ([place]) Comment on above: Performed By: #### I BC, A1C, FERR, GFR, CBC, CMP, ADIFF, ANEU, FE, LIPID ####[address] [place], [place] [address] MCV (RBC) [Entitic vol] 87.9 fL Normal 80.0-94.0 [facility] ([place]) Comment on above: Performed By: #### I BC, A1C, FERR, GFR, CBC, CMP, ADIFF, ANEU, FE, LIPID ####[id number] [place], [place] [address] Platelet 142 10 3/mcL Normal 130-400 [facility] ([place]) Comment on above: Performed By: #### I BC, A1C, FERR, GFR, CBC, CMP, ADIFF, ANEU, FE, LIPID ####[address] [place], [place] [address] Platelet mean volume (Bld) [Entitic vol] 8.1 fL Normal 7.4-10.4 [facility] ([place]) Comment on above: Performed By: #### I BC, A1C, FERR, GFR, CBC, CMP, ADIFF, ANEU, FE, LIPID ####[address] [place], [place] [address] RBC 4.07 10 6/mcL Normal 4.04-6.13 [facility] ([place]) Comment on above: Performed By: #### I BC, A1C, FERR, GFR, CBC, CMP, ADIFF, ANEU, FE, LIPID ####[address] [place], [place] [address] WBC 4.0 10 3/mcL Low 4.6-10.8 [facility] ([place]) Comment on above: Performed By: #### I BC, A1C, FERR, GFR, CBC, CMP, ADIFF, ANEU, FE, LIPID ####[address] [place], [place] [address] CMPon 05-23-2023 Albumin Level 3.8 G/dL Normal 3.4-4.8 [facility]) Comment on above: Performed By: #### I BC, A1C, FERR, GFR, CBC, CMP, ADIFF, ANEU, FE, LIPID ####[address] [place], [place] [address] Albumin/Globulin [Mass ratio] 1.1 {ratio} Normal 1.1-2.5 [facility]) Comment on above: Performed By: #### I BC, A1C, FERR, GFR, CBC, CMP, ADIFF, ANEU, FE, LIPID ####[address] [place], [place] [address] ALP [Catalytic activity/Vol] 68 U/L Normal 40-135 [facility] ([place]) Comment on above: Performed By: #### I BC, A1C, FERR, GFR, CBC, CMP, ADIFF, ANEU, FE, LIPID ####[address] [place], [place] [address] ALT [Catalytic activity/Vol] 27 U/L Normal 16-63 [facility] ([place]) Comment on above: Performed By: #### I BC, A1C, FERR, GFR, CBC, CMP, ADIFF, ANEU, FE, LIPID ####[address] [place], [place] [address] AST [Catalytic activity/Vol] 25 U/L Normal 10-40 [facility] ([place]) Comment on above: Performed By: #### I BC, A1C, FERR, GFR, CBC, CMP, ADIFF, ANEU, FE, LIPID ####[address] [place], [place] [address] Bili Total 0.3 mg/dL Normal 0.2-1.0 [facility] ([place]) Comment on above: Result Comment: Use of this assay is not recommended for patients undergoing treatment with eltrombopag due to the potential for falsely elevated results. Performed By: #### I BC, A1C, FERR, GFR, CBC, CMP, ADIFF, ANEU, FE, LIPID ####[address] [place], [place] [address] BUN/Creatinine Ratio 23 ratio Normal 7-27 [facility] ([place]) Comment on above: Performed By: #### I BC, A1C, FERR, GFR, CBC, CMP, ADIFF, ANEU, FE, LIPID ####[address] [place], [place] [address] Calcium [Mass/Vol] 9.2 mg/dL Normal 8.4-10.2 [facility] ([place]) Comment on above: Performed By: #### I BC, A1C, FERR, GFR, CBC, CMP, ADIFF, ANEU, FE, LIPID ####[address] [place], [place] [address] Chloride [Moles/Vol] 101 mmol/L Normal 98-107 [facility] ([place]) Comment on above: Performed By: #### I BC, A1C, FERR, GFR, CBC, CMP, ADIFF, ANEU, FE, LIPID ####[address] [place], [place] [address] CO2 [Moles/Vol] 30 mmol/L Normal 23-31 [facility] ([place]) Comment on above: Performed By: #### I BC, A1C, FERR, GFR, CBC, CMP, ADIFF, ANEU, FE, LIPID ####[address] [place], [place] [address] Creatinine [Mass/Vol] 1.35 mg/dL High 0.70-1.30 [facility] ([place]) Comment on above: Performed By: #### I BC, A1C, FERR, GFR, CBC, CMP, ADIFF, ANEU, FE, LIPID ####[address] [place], [place] [address] Electrolyte Balance 7.0 mEq/L Normal 4.0-15.0 [facility] ([place]) Comment on above: Performed By: #### I BC, A1C, FERR, GFR, CBC, CMP, ADIFF, ANEU, FE, LIPID ####[address] [place], [place] [address] Globulin 3.6 G/dL Normal [facility] ([place]) Comment on above: Performed By: #### I BC, A1C, FERR, GFR, CBC, CMP, ADIFF, ANEU, FE, LIPID ####[address] [place], [place] [address] Glucose [Mass/Vol] 98 mg/dL Normal 83-110 [facility] ([place] Comment on above: Performed By: #### I BC, A1C, FERR, GFR, CBC, CMP, ADIFF, ANEU, FE, LIPID ####[address] [place], [place] [address] Potassium [Moles/Vol] 5.2 mmol/L High 3.5-5.1 [facility] ([place]) Comment on above: Performed By: #### I BC, A1C, FERR, GFR, CBC, CMP, ADIFF, ANEU, FE, LIPID ####[address] [place], [place] [address] Sodium [Moles/Vol] 138 mmol/L Normal 136-145 [facility] ([place] Comment on above: Performed By: #### I BC, A1C, FERR, GFR, CBC, CMP, ADIFF, ANEU, FE, LIPID ####[address] [place], [place] [address] Total Protein 7.4 G/dL Normal 6.4-8.2 [facility] ([place]) Comment on above: Performed By: #### I BC, A1C, FERR, GFR, CBC, CMP, ADIFF, ANEU, FE, LIPID ####[address] [place], [place] [address] Urea nitrogen [Mass/Vol] 31 mg/dL High 03-22 [facility] ([place]) Comment on above: Performed By: #### I BC, A1C, FERR, GFR, CBC, CMP, ADIFF, ANEU, FE, LIPID ####[address] [place], [place] [address] FEon 05-23-2023 Iron [Mass/Vol] 75 ug/dL Normal 65-175 [facility] ([place]) Comment on above: Performed By: #### I BC, A1C, FERR, GFR, CBC, CMP, ADIFF, ANEU, FE, LIPID ####[address] [place], [place] [address] Mary 05-23-2023 Ferritin [Mass/Vol] 194.0 ng/mL Normal 26.0-388.0 [facility]) Comment on above: Performed By: #### I BC, A1C, FERR, GFR, CBC, CMP, ADIFF, ANEU, FE, LIPID ####[address] [place], [place] [address] IBCon 05-23-2023 TIBC 321 mcg/dL Normal 250-450 [facility] ([place]) Comment on above: Performed By: #### I BC, A1C, FERR, GFR, CBC, CMP, ADIFF, ANEU, FE, LIPID ####[address] [place], [place] [address] LABORATORYOrdered By: SYSTEM SYSTEM on 05-23-2023 Albumin BCP dye [Mass/Vol] 3.8 G/dL Invalid Interpretation Code 3.4 - 4.8 G/dL AO ADM SS Albumin/Globulin [Mass ratio] 1.1 {ratio} Invalid Interpretation Code 1.1 - 2.5 ratio AO ADM SS ALP [Catalytic activity/Vol] 68 U/L Invalid Interpretation Code 40 - 135 U/L AO ADM SS ALT With P-5'-P [Catalytic activity/Vol] 27 U/L Invalid Interpretation Code 16 - 63 U/L AO ADM SS AST With P-5'-P [Catalytic activity/Vol] 25 U/L Invalid Interpretation Code 10 - 40 U/L AO ADM SS Basophil, Absolute 0.1 103/mcL Invalid Interpretation Code 0.0 - 0.2 10^3/mcL AO Workflow SS Basophils/100 WBC (Bld) 1.4 % Invalid Interpretation Code 0.0 - 2.5 % AO Workflow SS Bilirubin [Mass/Vol] 0.3 mg/dL Invalid Interpretation Code 0.2 - 1.0 mg/dL AO ADM SS Comment on above: Interpretive Data: U se of this assay is not recommended for patients undergoing treatment with eltrombopag due to the potential for falsely elevated results. Calcium [Mass/Vol] 9.2 mg/dL Invalid Interpretation Code 8.4 - 10.2 mg/dL AO ADM SS Chloride [Moles/Vol] 101 mmol/L Invalid Interpretation Code 98 - 107 mmol/L AO ADM SS CO2 [Moles/Vol] 30 mmol/L Invalid Interpretation Code 23 - 31 mmol/L AO ADM SS Creatinine [Mass/Vol] 1.35 mg/dL Invalid Interpretation Code 0.70 - 1.30 mg/dL AO ADM SS Electrolyte Balance 7.0 mEq/L Invalid Interpretation Code 4.0 - 15.0 mEq/L AO ADM SS Eosinophil, Absolute 0.4 103/mcL Invalid Interpretation Code 0.0 - 0.4 10^3/mcL AO Workflow SS Eosinophils/100 WBC (Bld) 9.4 % Invalid Interpretation Code 0.0 - 7.0 % AO Workflow SS Erythrocyte distribution width (RBC) [Ratio] 15.3 % Invalid Interpretation Code 11.5 - 14.5 % AO Workflow SS Ferritin [Mass/Vol] 194.0 ng/mL Invalid Interpretation Code 26.0 - 388.0 ng/mL AO ADM SS GFR/1.73 sq M.predicted among blacks MDRD (S/P/Bld) [Vol rate/Area] 61 ml/min/1.73sqm Invalid Interpretation Code AO Chemistry S Comment on above: Interpretive Data: GFR Population mean for , Non- Americans Ages 20-29 = 116 mL/min/1.73 sq.m. Ages 30-39 = 107 mL/min/1.73 sq.m. Ages 40-49 = 99 mL/min/1.73 sq.m. Ages 50-59 = 93 mL/min/1.73 sq.m. Ages 60-69 = 85 mL/min/1.73 sq.m. Ages 70+ = 75 mL/min/1.73 sq.m. Chronic Kidney Disease: Less than 60 mL/min/1.73 square meters End Stage Renal Disease: Less than 15 mL/min/1.73 square meters GFR/1.73 sq M.predicted among non-blacks MDRD (S/P/Bld) [Vol rate/Area] 50 ml/min/1.73sqm Invalid Interpretation Code AO Chemistry S Comment on above: Interpretive Data: GFR Population mean for , Non- Americans Ages 20-29 = 116 mL/min/1.73 sq.m. Ages 30-39 = 107 mL/min/1.73 sq.m. Ages 40-49 = 99 mL/min/1.73 sq.m. Ages 50-59 = 93 mL/min/1.73 sq.m. Ages 60-69 = 85 mL/min/1.73 sq.m. Ages 70+ = 75 mL/min/1.73 sq.m. Chronic Kidney Disease: Less than 60 mL/min/1.73 square meters End Stage Renal Disease: Less than 15 mL/min/1.73 square meters Globulin 3.6 G/dL Invalid Interpretation Code AO ADM SS Glucose [Mass/Vol] 98 mg/dL Invalid Interpretation Code 83 - 110 mg/dL AO ADM SS HbA1c (Bld) [Mass fraction] 6.6 % Invalid Interpretation Code 4.3 - 6.4 % AO ADM SS Hematocrit (Bld) [Volume fraction] 35.8 % Invalid Interpretation Code 42.0 - 52.0 % AO Workflow SS Hemoglobin (Bld) [Mass/Vol] 11.9 G/dL Invalid Interpretation Code 14.0 - 18.0 G/dL AO Workflow SS Iron [Mass/Vol] 75 ug/dL Invalid Interpretation Code 65 - 175 mcg/dL AO ADM SS Iron binding capacity [Mass/Vol] 321 mcg/dL Invalid Interpretation Code 250 - 450 mcg/dL AO ADM SS Lymphocyte, Absolute 0.8 103/mcL Invalid Interpretation Code 0.8 - 3.9 10^3/mcL AO Workflow SS Lymphocytes/100 WBC (Bld) 20.4 % Invalid Interpretation Code 10.0 - 50.0 % AO Workflow SS MCH (RBC) [Entitic mass] 29.3 pg Invalid Interpretation Code 27.0 - 31.2 pg AO Workflow SS MCHC 33.4 G/dL Invalid Interpretation Code 31.8 - 35.4 G/dL AO Workflow SS MCV (RBC) [Entitic vol] 87.9 fL Invalid Interpretation Code 80.0 - 94.0 fL AO Workflow SS Monocyte, Absolute 0.6 103/mcL Invalid Interpretation Code 0.2 - 1.0 10^3/mcL AO Workflow SS Monocytes/100 WBC (Bld) 15.6 % Invalid Interpretation Code 1.7 - 13.0 % AO Workflow SS Neutrophil, Absolute 2.1 103/mcL Invalid Interpretation Code 2.9 - 6.2 10^3/mcL AO Workflow SS Neutrophils/100 WBC (Bld) 53.2 % Invalid Interpretation Code 37.0 - 80.0 % AO Workflow SS Platelet mean volume (Bld) [Entitic vol] 8.1 fL Invalid Interpretation Code 7.4 - 10.4 fL AO Workflow SS Platelets (Bld) [#/Vol] 142 103/mcL Invalid Interpretation Code 130 - 400 10^3/mcL AO Workflow SS Potassium [Moles/Vol] 5.2 mmol/L Invalid Interpretation Code 3.5 - 5.1 mmol/L AO ADM SS Protein [Mass/Vol] 7.4 G/dL Invalid Interpretation Code 6.4 - 8.2 G/dL AO ADM SS RBC (Bld) [#/Vol] 4.07 106/mcL Invalid Interpretation Code 4.04 - 6.13 10^6/mcL AO Workflow SS Sodium [Moles/Vol] 138 mmol/L Invalid Interpretation Code 136 - 145 mmol/L AO ADM SS Urea nitrogen [Mass/Vol] 31 mg/dL Invalid Interpretation Code 7 - 18 mg/dL AO ADM SS Urea nitrogen/Creatinine [Mass ratio] 23 ratio Invalid Interpretation Code 7 - 27 ratio AO ADM SS WBC (Bld) [#/Vol] 4.0 103/mcL Invalid Interpretation Code 4.6 - 10.8 10^3/mcL AO Workflow SS LABORATORYOrdered By: Gloria Lindsay on 05-23-2023 Cholesterol [Mass/Vol] 238 mg/dL Invalid Interpretation Code 0 - 200 mg/dL AO ADM SS Comment on above: Interpretive Data: C holesterol Reference Interval: Less than 200 Desirable 200-239 Borderline high risk 240 and above High risk Cholesterol in HDL [Mass/Vol] 48 mg/dL Invalid Interpretation Code 40 - 60 mg/dL AO ADM SS Cholesterol in LDL [Mass/Vol] 173 mg/dL Invalid Interpretation Code 0 - 130 mg/dL AO ADM SS Triglyceride [Mass/Vol] 87 mg/dL Invalid Interpretation Code 0 - 150 mg/dL AO ADM SS Comment on above: Interpretive Data: T riglyceride Reference Interval: Less than 150 Normal 150-199 Borderline high risk 200-499 High risk 500 or higher Very high risk LIPIDon 05-23-2023 Cholesterol [Mass/Vol] 238 mg/dL High 0-200 [facility] ([place]) Comment on above: Result Comment: Chol esterol Reference Interval:Less than 200 [id number] Borderline high [id number] and above High risk Performed By: #### I BC, A1C, FERR, GFR, CBC, CMP, ADIFF, ANEU, FE, LIPID ####[address] [place], [place] [address] Cholesterol in HDL [Mass/Vol] 48 mg/dL Normal 40-60 [facility] ([place]) Comment on above: Performed By: #### I BC, A1C, FERR, GFR, CBC, CMP, ADIFF, ANEU, FE, LIPID ####[address] [place], [place] [address] Cholesterol in LDL [Mass/Vol] 173 mg/dL High 0-130 [facility] ([place]) Comment on above: Performed By: #### I BC, A1C, FERR, GFR, CBC, CMP, ADIFF, ANEU, FE, LIPID ####[address] [place], [place] [address] Triglyceride [Mass/Vol] 87 mg/dL Normal 0-150 [facility] ([place]) Comment on above: Result Comment: Trig lyceride Reference Interval:Less than 150 [id number] Borderline high [id number] High [id number] or higher Very high risk Performed By: #### I BC, A1C, FERR, GFR, CBC, CMP, ADIFF, ANEU, FE, LIPID ####[address] [place], [place] [address] LABORATORYOrdered By: SYSTEM SYSTEM on 03-15-2023 Albumin BCP dye [Mass/Vol] 3.5 G/dL Invalid Interpretation Code 3.4 - 4.8 G/dL AO ADM SS Albumin/Globulin [Mass ratio] 1.1 {ratio} Invalid Interpretation Code 1.1 - 2.5 ratio AO ADM SS ALP [Catalytic activity/Vol] 68 U/L Invalid Interpretation Code 40 - 135 U/L AO ADM SS ALT With P-5'-P [Catalytic activity/Vol] 26 U/L Invalid Interpretation Code 16 - 63 U/L AO ADM SS AST With P-5'-P [Catalytic activity/Vol] 24 U/L Invalid Interpretation Code 10 - 40 U/L AO ADM SS Basophil, Absolute 0.0 103/mcL Invalid Interpretation Code 0.0 - 0.2 10^3/mcL AO Workflow SS Basophils/100 WBC (Bld) 0.9 % Invalid Interpretation Code 0.0 - 2.5 % AO Workflow SS Bilirubin [Mass/Vol] 0.4 mg/dL Invalid Interpretation Code 0.2 - 1.0 mg/dL AO ADM SS Calcium [Mass/Vol] 9.3 mg/dL Invalid Interpretation Code 8.4 - 10.2 mg/dL AO ADM SS Chloride [Moles/Vol] 102 mmol/L Invalid Interpretation Code 98 - 107 mmol/L AO ADM SS CO2 [Moles/Vol] 32 mmol/L Invalid Interpretation Code 23 - 31 mmol/L AO ADM SS Creatinine [Mass/Vol] 1.36 mg/dL Invalid Interpretation Code 0.70 - 1.30 mg/dL AO ADM SS Electrolyte Balance 6.0 mEq/L Invalid Interpretation Code 4.0 - 15.0 mEq/L AO ADM SS Eosinophil, Absolute 0.2 103/mcL Invalid Interpretation Code 0.0 - 0.4 10^3/mcL AO Workflow SS Eosinophils/100 WBC (Bld) 4.4 % Invalid Interpretation Code 0.0 - 7.0 % AO Workflow SS Erythrocyte distribution width (RBC) [Ratio] 15.7 % Invalid Interpretation Code 11.5 - 14.5 % AO Workflow SS GFR/1.73 sq M.predicted among blacks MDRD (S/P/Bld) [Vol rate/Area] 60 ml/min/1.73sqm Invalid Interpretation Code AO Chemistry S GFR/1.73 sq M.predicted among non-blacks MDRD (S/P/Bld) [Vol rate/Area] 50 ml/min/1.73sqm Invalid Interpretation Code AO Chemistry S Globulin 3.3 G/dL Invalid Interpretation Code AO ADM SS Glucose [Mass/Vol] 101 mg/dL Invalid Interpretation Code 83 - 110 mg/dL AO ADM SS Hematocrit (Bld) [Volume fraction] 35.0 % Invalid Interpretation Code 42.0 - 52.0 % AO Workflow SS Hemoglobin (Bld) [Mass/Vol] 11.6 G/dL Invalid Interpretation Code 14.0 - 18.0 G/dL AO Workflow SS Lymphocyte, Absolute 0.6 103/mcL Invalid Interpretation Code 0.8 - 3.9 10^3/mcL AO Workflow SS Lymphocytes/100 WBC (Bld) 11.7 % Invalid Interpretation Code 10.0 - 50.0 % AO Workflow SS MCH (RBC) [Entitic mass] 29.3 pg Invalid Interpretation Code 27.0 - 31.2 pg AO Workflow SS MCHC 33.0 G/dL Invalid Interpretation Code 31.8 - 35.4 G/dL AO Workflow SS MCV (RBC) [Entitic vol] 88.7 fL Invalid Interpretation Code 80.0 - 94.0 fL AO Workflow SS Monocyte, Absolute 0.9 103/mcL Invalid Interpretation Code 0.2 - 1.0 10^3/mcL AO Workflow SS Monocytes/100 WBC (Bld) 16.7 % Invalid Interpretation Code 1.7 - 13.0 % AO Workflow SS Neutrophil, Absolute 3.7 103/mcL Invalid Interpretation Code 2.9 - 6.2 10^3/mcL AO Workflow SS Neutrophils/100 WBC (Bld) 66.3 % Invalid Interpretation Code 37.0 - 80.0 % AO Workflow SS Platelet mean volume (Bld) [Entitic vol] 8.4 fL Invalid Interpretation Code 7.4 - 10.4 fL AO Workflow SS Platelets (Bld) [#/Vol] 141 103/mcL Invalid Interpretation Code 130 - 400 10^3/mcL AO Workflow SS Potassium [Moles/Vol] 4.5 mmol/L Invalid Interpretation Code 3.5 - 5.1 mmol/L AO ADM SS Protein [Mass/Vol] 6.8 G/dL Invalid Interpretation Code 6.4 - 8.2 G/dL AO ADM SS RBC (Bld) [#/Vol] 3.95 106/mcL Invalid Interpretation Code 4.04 - 6.13 10^6/mcL AO Workflow SS Sodium [Moles/Vol] 140 mmol/L Invalid Interpretation Code 136 - 145 mmol/L AO ADM SS Urea nitrogen [Mass/Vol] 28 mg/dL Invalid Interpretation Code 7 - 18 mg/dL AO ADM SS Urea nitrogen/Creatinine [Mass ratio] 21 ratio Invalid Interpretation Code 7 - 27 ratio AO ADM SS WBC (Bld) [#/Vol] 5.5 103/mcL Invalid Interpretation Code 4.6 - 10.8 10^3/mcL AO Workflow SS LABORATORYOrdered By: SYSTEM SYSTEM on 02-20-2023 Albumin BCP dye [Mass/Vol] 3.9 G/dL Invalid Interpretation Code 3.2 - 4.8 G/dL AH ADM SS Albumin/Globulin [Mass ratio] 1.1 {ratio} Invalid Interpretation Code 0.9 - 1.6 ratio AH ADM SS ALP [Catalytic activity/Vol] 67 U/L Invalid Interpretation Code 38 - 126 U/L AH ADM SS ALT No additional P-5'-P [Catalytic activity/Vol] 16 U/L Invalid Interpretation Code 12 - 55 U/L AH ADM SS AST [Catalytic activity/Vol] 30 U/L Invalid Interpretation Code 8 - 34 U/L AH ADM SS Basophils (Bld) [#/Vol] 0.1 103/mcL Invalid Interpretation Code 0.0 - 0.3 10^3/mcL AH Workflow SS Basophils/100 WBC (Bld) 1.0 % Invalid Interpretation Code 0.0 - 2.5 % AH Workflow SS Bilirubin [Mass/Vol] 0.50 mg/dL Invalid Interpretation Code 0.20 - 1.20 mg/dL AH ADM SS Calcium [Mass/Vol] 10.8 mg/dL Invalid Interpretation Code 8.7 - 10.4 mg/dL AH ADM SS Chloride [Moles/Vol] 103 mmol/L Invalid Interpretation Code 98 - 110 mEq/L AH ADM SS CO2 [Moles/Vol] 31 mmol/L Invalid Interpretation Code 22 - 32 mEq/L AH ADM SS Creatinine [Mass/Vol] 1.66 mg/dL Invalid Interpretation Code 0.60 - 1.40 mg/dL ADM SS Electrolyte Balance 6.0 mEq/L Invalid Interpretation Code 4.0 - 15.0 mEq/L ADM SS Eosinophils (Bld) [#/Vol] 0.3 103/mcL Invalid Interpretation Code 0.0 - 0.7 10^3/mcL Workflow SS Eosinophils/100 WBC (Bld) 6.5 % Invalid Interpretation Code 0.0 - 6.0 % Workflow SS Erythrocyte distribution width (RBC) [Ratio] 14.8 % Invalid Interpretation Code 11.5 - 15.5 % Workflow SS GFR/1.73 sq M.predicted among blacks MDRD (S/P/Bld) [Vol rate/Area] 48 ml/min/1.73sqm Invalid Interpretation Code ADM SS GFR/1.73 sq M.predicted among non-blacks MDRD (S/P/Bld) [Vol rate/Area] 39 ml/min/1.73sqm Invalid Interpretation Code ADM SS Globulin 3.6 G/dL Invalid Interpretation Code 1.5 - 3.8 G/dL ADM SS Glucose [Mass/Vol] 84 mg/dL Invalid Interpretation Code 82 - 115 mg/dL ADM SS Hematocrit (Bld) [Volume fraction] 38.7 % Invalid Interpretation Code 40.0 - 52.0 % Workflow SS Hemoglobin (Bld) [Mass/Vol] 12.6 G/dL Invalid Interpretation Code 13.0 - 17.5 G/dL Workflow SS Lipase [Catalytic activity/Vol] 31 U/L Invalid Interpretation Code 12 - 53 U/L ADM SS Lymphocytes (Bld) [#/Vol] 0.8 103/mcL Invalid Interpretation Code 0.9 - 4.3 10^3/mcL Workflow SS Lymphocytes/100 WBC (Bld) 16.5 % Invalid Interpretation Code 20.0 - 40.0 % Workflow SS MCH (RBC) [Entitic mass] 28.9 pg Invalid Interpretation Code 27.0 - 33.0 pg Workflow SS MCHC 32.5 G/dL Invalid Interpretation Code 32.0 - 36.0 G/dL Workflow SS MCV (RBC) [Entitic vol] 89.0 fL Invalid Interpretation Code 81.0 - 100.0 fL Workflow SS Monocyte distribution width Auto (Bld) [Entitic vol] 16.86 Invalid Interpretation Code 0.00 - 20.00 AH Workflow SS Comment on above: Result Comment: For ED adult patients suspected of sepsis, MDW<=20.0 does not rule out sepsis or risk of sepsis Monocytes (Bld) [#/Vol] 0.8 103/mcL Invalid Interpretation Code 0.1 - 1.4 10^3/mcL AH Workflow SS Monocytes/100 WBC (Bld) 16.0 % Invalid Interpretation Code 2.0 - 13.0 % AH Workflow SS Neutrophils (Bld) [#/Vol] 3.0 103/mcL Invalid Interpretation Code 2.3 - 8.1 10^3/mcL AH Workflow SS Neutrophils/100 WBC (Bld) 60.0 % Invalid Interpretation Code 50.0 - 75.0 % AH Workflow SS Platelet mean volume (Bld) [Entitic vol] 7.2 fL Invalid Interpretation Code 6.4 - 10.5 fL Workflow SS Platelets (Bld) [#/Vol] 163 103/mcL Invalid Interpretation Code 150 - 450 10^3/mcL AH Workflow SS Potassium [Moles/Vol] 4.4 mmol/L Invalid Interpretation Code 3.5 - 5.0 mEq/L ADM SS Comment on above: Result Comment: Spec imen slightly hemolyzed. Protein [Mass/Vol] 7.5 G/dL Invalid Interpretation Code 5.7 - 8.2 G/dL AH ADM SS RBC (Bld) [#/Vol] 4.34 106/mcL Invalid Interpretation Code 4.50 - 6.00 10^6/mcL AH Workflow SS Sodium [Moles/Vol] 140 mmol/L Invalid Interpretation Code 136 - 145 mEq/L AH ADM SS Urea nitrogen [Mass/Vol] 25.0 mg/dL Invalid Interpretation Code 8.0 - 22.0 mg/dL ADM SS Urea nitrogen/Creatinine [Mass ratio] 15.1 ratio Invalid Interpretation Code 10.0 - 22.0 ratio AH ADM SS WBC (Bld) [#/Vol] 5.0 103/mcL Invalid Interpretation Code 4.5 - 10.8 10^3/mcL AH Workflow SS LABORATORYOrdered By: Josselin Martini on 02-20-2023 Appearance (U) Clear (02/20/23 6:12 PM) Invalid Interpretation Code Clear Auto Urine SS Bacteria LM.HPF (Urine sed) [#/Area] Trace /HPF Invalid Interpretation Code Negative/HP F AH Auto Urine SS Bilirubin Ql (U) Negative (02/20/23 6:12 PM) Invalid Interpretation Code Neg-Trace AH Auto Urine SS Color (U) DARK YELLOW Invalid Interpretation Code AH Auto Urine SS Glucose Test strip (U) [Mass/Vol] Negative Invalid Interpretation Code Negativemg/ dL AH Auto Urine SS Hemoglobin Auto test strip (U) [Mass/Vol] Large *ABN* (02/20/23 6:12 PM) Invalid Interpretation Code Neg-Trace AH Auto Urine SS Ketones Ql (U) Trace mg/dL Invalid Interpretation Code Neg-Tracemg /dL AH Auto Urine SS UA Leuk Est Moderate *ABN* (02/20/23 6:12 PM) Invalid Interpretation Code Negative AH Auto Urine SS UA Mucous Trace /HPF Invalid Interpretation Code AH Auto Urine SS UA Nitrite Negative (02/20/23 6:12 PM) Invalid Interpretation Code Negative AH Auto Urine SS UA pH 5.5 (02/20/23 6:12 PM) Invalid Interpretation Code 5.0 - 8.0 AH Auto Urine SS UA Protein 30 mg/dL Invalid Interpretation Code Negativemg/ dL AH Auto Urine SS UA RBC 10-20 /HPF Invalid Interpretation Code 0-2/HPF Auto Urine SS UA Spec Grav 1.020 (02/20/23 6:12 PM) Invalid Interpretation Code 1.006-1.029 AH Auto Urine SS UA Specimen Type Clean Catch (02/20/23 6:12 PM) Invalid Interpretation Code AH Auto Urine SS UA Squam Epithelial Rare /HPF Invalid Interpretation Code 0-20/HPF AH Auto Urine SS UA Urobilinogen 0.2 E.U./dL Invalid Interpretation Code 0.2-1.0E.U. /dL AH Auto Urine SS WBC LM.HPF (Urine sed) [#/Area] 3-5 /HPF Invalid Interpretation Code 0-5/HPF AH Auto Urine SS LABORATORYOrdered By: SYSTEM SYSTEM on 02-01-2023 Calcium [Mass/Vol] 9.6 mg/dL Invalid Interpretation Code 8.7 - 10.4 mg/dL AH ADM SS Chloride [Moles/Vol] 104 mmol/L Invalid Interpretation Code 98 - 110 mEq/L AH ADM SS CO2 [Moles/Vol] 27 mmol/L Invalid Interpretation Code 22 - 32 mEq/L AH ADM SS Creatinine [Mass/Vol] 1.30 mg/dL Invalid Interpretation Code 0.60 - 1.40 mg/dL AH ADM SS Electrolyte Balance 7.0 mEq/L Invalid Interpretation Code 4.0 - 15.0 mEq/L AH ADM SS GFR/1.73 sq M.predicted among blacks MDRD (S/P/Bld) [Vol rate/Area] ml/min/1.73sqm Invalid Interpretation Code Chemistry S GFR/1.73 sq M.predicted among non-blacks MDRD (S/P/Bld) [Vol rate/Area] 52 ml/min/1.73sqm Invalid Interpretation Code Chemistry S Glucose [Mass/Vol] 134 mg/dL Invalid Interpretation Code 82 - 115 mg/dL AH ADM SS Potassium [Moles/Vol] 4.4 mmol/L Invalid Interpretation Code 3.5 - 5.0 mEq/L AH ADM SS Comment on above: Result Comment: Spec imen slightly hemolyzed. Sodium [Moles/Vol] 138 mmol/L Invalid Interpretation Code 136 - 145 mEq/L AH ADM SS Urea nitrogen [Mass/Vol] 25.0 mg/dL Invalid Interpretation Code 8.0 - 22.0 mg/dL AH ADM SS Urea nitrogen/Creatinine [Mass ratio] 19.2 ratio Invalid Interpretation Code 10.0 - 22.0 ratio AH ADM SS LABORATORYOrdered By: SYSTEM SYSTEM on 01-03-2023 Albumin BCP dye [Mass/Vol] 3.5 G/dL Invalid Interpretation Code 3.4 - 4.8 G/dL AO ADM SS Albumin/Globulin [Mass ratio] 1.1 {ratio} Invalid Interpretation Code 1.1 - 2.5 ratio AO ADM SS ALP [Catalytic activity/Vol] 58 U/L Invalid Interpretation Code 40 - 135 U/L AO ADM SS ALT With P-5'-P [Catalytic activity/Vol] 21 U/L Invalid Interpretation Code 16 - 63 U/L AO ADM SS AST With P-5'-P [Catalytic activity/Vol] 23 U/L Invalid Interpretation Code 10 - 40 U/L AO ADM SS Bilirubin [Mass/Vol] 0.4 mg/dL Invalid Interpretation Code 0.2 - 1.0 mg/dL AO ADM SS Calcium [Mass/Vol] 9.4 mg/dL Invalid Interpretation Code 8.4 - 10.2 mg/dL AO ADM SS Chloride [Moles/Vol] 103 mmol/L Invalid Interpretation Code 98 - 107 mmol/L AO ADM SS CO2 [Moles/Vol] 32 mmol/L Invalid Interpretation Code 23 - 31 mmol/L AO ADM SS Creatinine [Mass/Vol] 1.31 mg/dL Invalid Interpretation Code 0.70 - 1.30 mg/dL AO ADM SS Electrolyte Balance 5.0 mEq/L Invalid Interpretation Code 4.0 - 15.0 mEq/L AO ADM SS Ferritin [Mass/Vol] 72.0 ng/mL Invalid Interpretation Code 26.0 - 388.0 ng/mL AO ADM SS GFR/1.73 sq M.predicted among blacks MDRD (S/P/Bld) [Vol rate/Area] 63 ml/min/1.73sqm Invalid Interpretation Code AO Chemistry S GFR/1.73 sq M.predicted among non-blacks MDRD (S/P/Bld) [Vol rate/Area] 52 ml/min/1.73sqm Invalid Interpretation Code AO Chemistry S Globulin 3.1 G/dL Invalid Interpretation Code AO ADM SS Glucose [Mass/Vol] 105 mg/dL Invalid Interpretation Code 83 - 110 mg/dL AO ADM SS HbA1c (Bld) [Mass fraction] 6.0 % Invalid Interpretation Code 4.3 - 6.4 % AO ADM SS Iron [Mass/Vol] 55 ug/dL Invalid Interpretation Code 65 - 175 mcg/dL AO ADM SS Iron binding capacity [Mass/Vol] 306 mcg/dL Invalid Interpretation Code 250 - 450 mcg/dL AO ADM SS Potassium [Moles/Vol] 4.9 mmol/L Invalid Interpretation Code 3.5 - 5.1 mmol/L AO ADM SS Protein [Mass/Vol] 6.6 G/dL Invalid Interpretation Code 6.4 - 8.2 G/dL AO ADM SS Sodium [Moles/Vol] 140 mmol/L Invalid Interpretation Code 136 - 145 mmol/L AO ADM SS Urea nitrogen [Mass/Vol] 27 mg/dL Invalid Interpretation Code 7 - 18 mg/dL AO ADM SS Urea nitrogen/Creatinine [Mass ratio] 21 ratio Invalid Interpretation Code 7 - 27 ratio AO ADM SS LABORATORYOrdered By: Gloria Lindsay on 01-03-2023 Albumin DL <= 20 mg/L (U) [Mass/Vol] 734 mcg/dL Invalid Interpretation Code AO ADM SS Albumin/Creatinine DL <= 20 mg/L (U) [Mass ratio] 10 mcg/mg Invalid Interpretation Code 0 - 30 mcg/mg AO ADM SS Cholesterol [Mass/Vol] 195 mg/dL Invalid Interpretation Code 0 - 200 mg/dL AO ADM SS Cholesterol in HDL [Mass/Vol] 40 mg/dL Invalid Interpretation Code 40 - 60 mg/dL AO ADM SS Cholesterol in LDL [Mass/Vol] 126 mg/dL Invalid Interpretation Code 0 - 130 mg/dL AO ADM SS Creatinine (U) [Mass/Vol] 72.1 mg/dL Invalid Interpretation Code 39.0 - 259.0 mg/dL AO ADM SS Triglyceride [Mass/Vol] 145 mg/dL Invalid Interpretation Code 0 - 150 mg/dL AO ADM SS LABORATORYOrdered By: Paola Mosley on 01-03-2023 Basophil, Absolute 0.1 103/mcL Invalid Interpretation Code 0.0 - 0.2 10^3/mcL AO Workflow SS Basophils/100 WBC (Bld) 1.3 % Invalid Interpretation Code 0.0 - 2.5 % AO Workflow SS Eosinophil, Absolute 0.3 103/mcL Invalid Interpretation Code 0.0 - 0.4 10^3/mcL AO Workflow SS Eosinophils/100 WBC (Bld) 7.6 % Invalid Interpretation Code 0.0 - 7.0 % AO Workflow SS Erythrocyte distribution width (RBC) [Ratio] 13.8 % Invalid Interpretation Code 11.5 - 14.5 % AO Workflow SS Hematocrit (Bld) [Volume fraction] 38.2 % Invalid Interpretation Code 42.0 - 52.0 % AO Workflow SS Hemoglobin (Bld) [Mass/Vol] 12.6 G/dL Invalid Interpretation Code 14.0 - 18.0 G/dL AO Workflow SS Lymphocyte, Absolute 0.8 103/mcL Invalid Interpretation Code 0.8 - 3.9 10^3/mcL AO Workflow SS Lymphocytes/100 WBC (Bld) 17.1 % Invalid Interpretation Code 10.0 - 50.0 % AO Workflow SS MCH (RBC) [Entitic mass] 29.3 pg Invalid Interpretation Code 27.0 - 31.2 pg AO Workflow SS MCHC 33.1 G/dL Invalid Interpretation Code 31.8 - 35.4 G/dL AO Workflow SS MCV (RBC) [Entitic vol] 88.7 fL Invalid Interpretation Code 80.0 - 94.0 fL AO Workflow SS Monocyte, Absolute 0.8 103/mcL Invalid Interpretation Code 0.2 - 1.0 10^3/mcL AO Workflow SS Monocytes/100 WBC (Bld) 17.5 % Invalid Interpretation Code 1.7 - 13.0 % AO Workflow SS Neutrophil, Absolute 2.5 103/mcL Invalid Interpretation Code 2.9 - 6.2 10^3/mcL AO Workflow SS Neutrophils/100 WBC (Bld) 56.5 % Invalid Interpretation Code 37.0 - 80.0 % AO Workflow SS Platelet mean volume (Bld) [Entitic vol] 7.6 fL Invalid Interpretation Code 7.4 - 10.4 fL AO Workflow SS Platelets (Bld) [#/Vol] 165 103/mcL Invalid Interpretation Code 130 - 400 10^3/mcL AO Workflow SS RBC (Bld) [#/Vol] 4.30 106/mcL Invalid Interpretation Code 4.04 - 6.13 10^6/mcL AO Workflow SS WBC (Bld) [#/Vol] 4.4 103/mcL Invalid Interpretation Code 4.6 - 10.8 10^3/mcL AO Workflow SS LABORATORYOrdered By: SYSTEM SYSTEM on 12-17-2022 Albumin BCP dye [Mass/Vol] 3.8 G/dL Invalid Interpretation Code 3.4 - 4.8 G/dL AO ADM SS Albumin/Globulin [Mass ratio] 1.3 {ratio} Invalid Interpretation Code 1.1 - 2.5 ratio AO ADM SS ALP [Catalytic activity/Vol] 55 U/L Invalid Interpretation Code 40 - 135 U/L AO ADM SS ALT With P-5'-P [Catalytic activity/Vol] 26 U/L Invalid Interpretation Code 16 - 63 U/L AO ADM SS AST With P-5'-P [Catalytic activity/Vol] 27 U/L Invalid Interpretation Code 10 - 40 U/L AO ADM SS Bilirubin [Mass/Vol] 0.4 mg/dL Invalid Interpretation Code 0.2 - 1.0 mg/dL AO ADM SS Calcium [Mass/Vol] 9.3 mg/dL Invalid Interpretation Code 8.4 - 10.2 mg/dL AO ADM SS Chloride [Moles/Vol] 102 mmol/L Invalid Interpretation Code 98 - 107 mmol/L AO ADM SS CO2 [Moles/Vol] 28 mmol/L Invalid Interpretation Code 23 - 31 mmol/L AO ADM SS Creatinine [Mass/Vol] 1.41 mg/dL Invalid Interpretation Code 0.70 - 1.30 mg/dL AO ADM SS Electrolyte Balance 9.0 mEq/L Invalid Interpretation Code 4.0 - 15.0 mEq/L AO ADM SS GFR/1.73 sq M.predicted among blacks MDRD (S/P/Bld) [Vol rate/Area] 58 ml/min/1.73sqm Invalid Interpretation Code AO Chemistry S GFR/1.73 sq M.predicted among non-blacks MDRD (S/P/Bld) [Vol rate/Area] 48 ml/min/1.73sqm Invalid Interpretation Code AO Chemistry S Globulin 2.9 G/dL Invalid Interpretation Code AO ADM SS Glucose [Mass/Vol] 138 mg/dL Invalid Interpretation Code 83 - 110 mg/dL AO ADM SS Potassium [Moles/Vol] 4.5 mmol/L Invalid Interpretation Code 3.5 - 5.1 mmol/L AO ADM SS Protein [Mass/Vol] 6.7 G/dL Invalid Interpretation Code 6.4 - 8.2 G/dL AO ADM SS Sodium [Moles/Vol] 139 mmol/L Invalid Interpretation Code 136 - 145 mmol/L AO ADM SS Urea nitrogen [Mass/Vol] 29 mg/dL Invalid Interpretation Code 7 - 18 mg/dL AO ADM SS Urea nitrogen/Creatinine [Mass ratio] 21 ratio Invalid Interpretation Code 7 - 27 ratio AO ADM SS LABORATORYOrdered By: Batsheva Dominguez on 12-17-2022 Basophil, Absolute 0.1 103/mcL Invalid Interpretation Code 0.0 - 0.2 10^3/mcL AO Workflow SS Basophils/100 WBC (Bld) 1.3 % Invalid Interpretation Code 0.0 - 2.5 % AO Workflow SS Eosinophil, Absolute 0.2 103/mcL Invalid Interpretation Code 0.0 - 0.4 10^3/mcL AO Workflow SS Eosinophils/100 WBC (Bld) 5.4 % Invalid Interpretation Code 0.0 - 7.0 % AO Workflow SS Erythrocyte distribution width (RBC) [Ratio] 14.1 % Invalid Interpretation Code 11.5 - 14.5 % AO Workflow SS Hematocrit (Bld) [Volume fraction] 37.7 % Invalid Interpretation Code 42.0 - 52.0 % AO Workflow SS Hemoglobin (Bld) [Mass/Vol] 12.5 G/dL Invalid Interpretation Code 14.0 - 18.0 G/dL AO Workflow SS Lymphocyte, Absolute 0.8 103/mcL Invalid Interpretation Code 0.8 - 3.9 10^3/mcL AO Workflow SS Lymphocytes/100 WBC (Bld) 18.5 % Invalid Interpretation Code 10.0 - 50.0 % AO Workflow SS MCH (RBC) [Entitic mass] 29.5 pg Invalid Interpretation Code 27.0 - 31.2 pg AO Workflow SS MCHC 33.2 G/dL Invalid Interpretation Code 31.8 - 35.4 G/dL AO Workflow SS MCV (RBC) [Entitic vol] 88.8 fL Invalid Interpretation Code 80.0 - 94.0 fL AO Workflow SS Monocyte, Absolute 0.6 103/mcL Invalid Interpretation Code 0.2 - 1.0 10^3/mcL AO Workflow SS Monocytes/100 WBC (Bld) 12.5 % Invalid Interpretation Code 1.7 - 13.0 % AO Workflow SS Neutrophil, Absolute 2.8 103/mcL Invalid Interpretation Code 2.9 - 6.2 10^3/mcL AO Workflow SS Neutrophils/100 WBC (Bld) 62.3 % Invalid Interpretation Code 37.0 - 80.0 % AO Workflow SS Platelet mean volume (Bld) [Entitic vol] 8.2 fL Invalid Interpretation Code 7.4 - 10.4 fL AO Workflow SS Platelets (Bld) [#/Vol] 160 103/mcL Invalid Interpretation Code 130 - 400 10^3/mcL AO Workflow SS RBC (Bld) [#/Vol] 4.24 106/mcL Invalid Interpretation Code 4.04 - 6.13 10^6/mcL AO Workflow SS WBC (Bld) [#/Vol] 4.5 103/mcL Invalid Interpretation Code 4.6 - 10.8 10^3/mcL AO Workflow SS LABORATORYOrdered By: Gloria Lindsay on 08-16-2022 Albumin BCP dye [Mass/Vol] 3.9 G/dL Invalid Interpretation Code 3.4 - 4.8 G/dL AO ADM SS Albumin/Globulin [Mass ratio] 1.3 {ratio} Invalid Interpretation Code 1.1 - 2.5 ratio AO ADM SS ALP [Catalytic activity/Vol] 49 U/L Invalid Interpretation Code 40 - 135 U/L AO ADM SS ALT With P-5'-P [Catalytic activity/Vol] 26 U/L Invalid Interpretation Code 16 - 63 U/L AO ADM SS AST With P-5'-P [Catalytic activity/Vol] 31 U/L Invalid Interpretation Code 10 - 40 U/L AO ADM SS Bilirubin [Mass/Vol] 0.4 mg/dL Invalid Interpretation Code 0.2 - 1.0 mg/dL AO ADM SS Calcium [Mass/Vol] 9.6 mg/dL Invalid Interpretation Code 8.4 - 10.2 mg/dL AO ADM SS Chloride [Moles/Vol] 103 mmol/L Invalid Interpretation Code 98 - 107 mmol/L AO ADM SS Cholesterol [Mass/Vol] 195 mg/dL Invalid Interpretation Code 0 - 200 mg/dL AO ADM SS Cholesterol in HDL [Mass/Vol] 51 mg/dL Invalid Interpretation Code 40 - 60 mg/dL AO ADM SS Cholesterol in LDL [Mass/Vol] 127 mg/dL Invalid Interpretation Code 0 - 130 mg/dL AO ADM SS CO2 [Moles/Vol] 33 mmol/L Invalid Interpretation Code 23 - 31 mmol/L AO ADM SS Creatinine [Mass/Vol] 1.31 mg/dL Invalid Interpretation Code 0.70 - 1.30 mg/dL AO ADM SS Electrolyte Balance 5.0 mEq/L Invalid Interpretation Code 4.0 - 15.0 mEq/L AO ADM SS Ferritin [Mass/Vol] 77.0 ng/mL Invalid Interpretation Code 26.0 - 388.0 ng/mL AO ADM SS Globulin 3.0 G/dL Invalid Interpretation Code AO ADM SS Glucose [Mass/Vol] 99 mg/dL Invalid Interpretation Code 83 - 110 mg/dL AO ADM SS HbA1c (Bld) [Mass fraction] 6.1 % Invalid Interpretation Code 4.3 - 6.4 % AO ADM SS Iron binding capacity [Mass/Vol] 322 mcg/dL Invalid Interpretation Code 250 - 450 mcg/dL AO ADM SS Potassium [Moles/Vol] 4.7 mmol/L Invalid Interpretation Code 3.5 - 5.1 mmol/L AO ADM SS Protein [Mass/Vol] 6.9 G/dL Invalid Interpretation Code 6.4 - 8.2 G/dL AO ADM SS Sodium [Moles/Vol] 141 mmol/L Invalid Interpretation Code 136 - 145 mmol/L AO ADM SS Triglyceride [Mass/Vol] 86 mg/dL Invalid Interpretation Code 0 - 150 mg/dL AO ADM SS Urea nitrogen [Mass/Vol] 22 mg/dL Invalid Interpretation Code 7 - 18 mg/dL AO ADM SS Urea nitrogen/Creatinine [Mass ratio] 17 ratio Invalid Interpretation Code 7 - 27 ratio AO ADM SS LABORATORYOrdered By: Tata Barboza on 08-16-2022 Basophil, Absolute 0.1 103/mcL Invalid Interpretation Code 0.0 - 0.2 10^3/mcL AO Workflow SS Basophils/100 WBC (Bld) 1.4 % Invalid Interpretation Code 0.0 - 2.5 % AO Workflow SS Eosinophil, Absolute 0.3 103/mcL Invalid Interpretation Code 0.0 - 0.4 10^3/mcL AO Workflow SS Eosinophils/100 WBC (Bld) 7.9 % Invalid Interpretation Code 0.0 - 7.0 % AO Workflow SS Erythrocyte distribution width (RBC) [Ratio] 13.9 % Invalid Interpretation Code 11.5 - 14.5 % AO Workflow SS Hematocrit (Bld) [Volume fraction] 38.4 % Invalid Interpretation Code 42.0 - 52.0 % AO Workflow SS Hemoglobin (Bld) [Mass/Vol] 12.8 G/dL Invalid Interpretation Code 14.0 - 18.0 G/dL AO Workflow SS Lymphocyte, Absolute 0.9 103/mcL Invalid Interpretation Code 0.8 - 3.9 10^3/mcL AO Workflow SS Lymphocytes/100 WBC (Bld) 21.3 % Invalid Interpretation Code 10.0 - 50.0 % AO Workflow SS MCH (RBC) [Entitic mass] 29.9 pg Invalid Interpretation Code 27.0 - 31.2 pg AO Workflow SS MCHC 33.5 G/dL Invalid Interpretation Code 31.8 - 35.4 G/dL AO Workflow SS MCV (RBC) [Entitic vol] 89.3 fL Invalid Interpretation Code 80.0 - 94.0 fL AO Workflow SS Monocyte, Absolute 0.6 103/mcL Invalid Interpretation Code 0.2 - 1.0 10^3/mcL AO Workflow SS Monocytes/100 WBC (Bld) 14.1 % Invalid Interpretation Code 1.7 - 13.0 % AO Workflow SS Neutrophil, Absolute 2.2 103/mcL Invalid Interpretation Code 2.9 - 6.2 10^3/mcL AO Workflow SS Neutrophils/100 WBC (Bld) 55.3 % Invalid Interpretation Code 37.0 - 80.0 % AO Workflow SS Platelet mean volume (Bld) [Entitic vol] 8.0 fL Invalid Interpretation Code 7.4 - 10.4 fL AO Workflow SS Platelets (Bld) [#/Vol] 156 103/mcL Invalid Interpretation Code 130 - 400 10^3/mcL AO Workflow SS RBC (Bld) [#/Vol] 4.30 106/mcL Invalid Interpretation Code 4.04 - 6.13 10^6/mcL AO Workflow SS WBC (Bld) [#/Vol] 4.0 103/mcL Invalid Interpretation Code 4.6 - 10.8 10^3/mcL AO Workflow SS LABORATORYOrdered By: SYSTEM SYSTEM on 08-16-2022 GFR 63 ml/min/1.73sqm Invalid Interpretation Code AO Chemistry S GFR Non- 52 ml/min/1.73sqm Invalid Interpretation Code AO Chemistry S LABORATORYOrdered By: Gloria Lindsay on 06-02-2022 Albumin BCP dye [Mass/Vol] 3.8 G/dL Invalid Interpretation Code 3.4 - 4.8 G/dL AO ADM SS Albumin/Globulin [Mass ratio] 1.3 {ratio} Invalid Interpretation Code 1.1 - 2.5 ratio AO ADM SS ALP [Catalytic activity/Vol] 63 U/L Invalid Interpretation Code 40 - 135 U/L AO ADM SS ALT With P-5'-P [Catalytic activity/Vol] 31 U/L Invalid Interpretation Code 16 - 63 U/L AO ADM SS AST With P-5'-P [Catalytic activity/Vol] 30 U/L Invalid Interpretation Code 10 - 40 U/L AO ADM SS Bilirubin [Mass/Vol] 0.4 mg/dL Invalid Interpretation Code 0.2 - 1.0 mg/dL AO ADM SS Calcium [Mass/Vol] 10.0 mg/dL Invalid Interpretation Code 8.4 - 10.2 mg/dL AO ADM SS Chloride [Moles/Vol] 102 mmol/L Invalid Interpretation Code 98 - 107 mmol/L AO ADM SS CO2 [Moles/Vol] 31 mmol/L Invalid Interpretation Code 23 - 31 mmol/L AO ADM SS Creatinine [Mass/Vol] 1.50 mg/dL Invalid Interpretation Code 0.70 - 1.30 mg/dL AO ADM SS Electrolyte Balance 7.0 mEq/L Invalid Interpretation Code 4.0 - 15.0 mEq/L AO ADM SS Globulin 3.0 G/dL Invalid Interpretation Code AO ADM SS Glucose [Mass/Vol] 89 mg/dL Invalid Interpretation Code 83 - 110 mg/dL AO ADM SS Potassium [Moles/Vol] 4.5 mmol/L Invalid Interpretation Code 3.5 - 5.1 mmol/L AO ADM SS Protein [Mass/Vol] 6.8 G/dL Invalid Interpretation Code 6.4 - 8.2 G/dL AO ADM SS Sodium [Moles/Vol] 140 mmol/L Invalid Interpretation Code 136 - 145 mmol/L AO ADM SS Urea nitrogen [Mass/Vol] 28 mg/dL Invalid Interpretation Code 7 - 18 mg/dL AO ADM SS Urea nitrogen/Creatinine [Mass ratio] 19 ratio Invalid Interpretation Code 7 - 27 ratio AO ADM SS LABORATORYOrdered By: Lavon Santiago on 06-02-2022 Basophil, Absolute 0.1 103/mcL Invalid Interpretation Code 0.0 - 0.2 10^3/mcL AO Workflow SS Basophils/100 WBC (Bld) 1.0 % Invalid Interpretation Code 0.0 - 2.5 % AO Workflow SS Eosinophil, Absolute 0.3 103/mcL Invalid Interpretation Code 0.0 - 0.4 10^3/mcL AO Workflow SS Eosinophils/100 WBC (Bld) 6.1 % Invalid Interpretation Code 0.0 - 7.0 % AO Workflow SS Erythrocyte distribution width (RBC) [Ratio] 14.2 % Invalid Interpretation Code 11.5 - 14.5 % AO Workflow SS Hematocrit (Bld) [Volume fraction] 38.0 % Invalid Interpretation Code 42.0 - 52.0 % AO Workflow SS Hemoglobin (Bld) [Mass/Vol] 12.9 G/dL Invalid Interpretation Code 14.0 - 18.0 G/dL AO Workflow SS Lymphocyte, Absolute 0.9 103/mcL Invalid Interpretation Code 0.8 - 3.9 10^3/mcL AO Workflow SS Lymphocytes/100 WBC (Bld) 18.1 % Invalid Interpretation Code 10.0 - 50.0 % AO Workflow SS MCH (RBC) [Entitic mass] 30.0 pg Invalid Interpretation Code 27.0 - 31.2 pg AO Workflow SS MCHC 33.9 G/dL Invalid Interpretation Code 31.8 - 35.4 G/dL AO Workflow SS MCV (RBC) [Entitic vol] 88.5 fL Invalid Interpretation Code 80.0 - 94.0 fL AO Workflow SS Monocyte, Absolute 0.8 103/mcL Invalid Interpretation Code 0.2 - 1.0 10^3/mcL AO Workflow SS Monocytes/100 WBC (Bld) 15.4 % Invalid Interpretation Code 1.7 - 13.0 % AO Workflow SS Neutrophil, Absolute 3.0 103/mcL Invalid Interpretation Code 2.9 - 6.2 10^3/mcL AO Workflow SS Neutrophils/100 WBC (Bld) 59.4 % Invalid Interpretation Code 37.0 - 80.0 % AO Workflow SS Platelet mean volume (Bld) [Entitic vol] 8.2 fL Invalid Interpretation Code 7.4 - 10.4 fL AO Workflow SS Platelets (Bld) [#/Vol] 148 103/mcL Invalid Interpretation Code 130 - 400 10^3/mcL AO Workflow SS RBC (Bld) [#/Vol] 4.29 106/mcL Invalid Interpretation Code 4.04 - 6.13 10^6/mcL AO Workflow SS WBC (Bld) [#/Vol] 5.0 103/mcL Invalid Interpretation Code 4.6 - 10.8 10^3/mcL AO Workflow SS LABORATORYOrdered By: SYSTEM SYSTEM on 06-02-2022 GFR 54 ml/min/1.73sqm Invalid Interpretation Code AO Chemistry S GFR Non- 44 ml/min/1.73sqm Invalid Interpretation Code AO Chemistry S LABORATORYOrdered By: Gloria Lindsay on 04-02-2022 Albumin BCP dye [Mass/Vol] 3.8 G/dL Invalid Interpretation Code 3.4 - 4.8 G/dL AO ADM SS Albumin DL <= 20 mg/L (U) [Mass/Vol] mcg/dL Invalid Interpretation Code AO ADM SS Albumin/Creatinine DL <= 20 mg/L (U) [Mass ratio] Unable to Calculate Invalid Interpretation Code 0 - 30 AO ADM SS Comment on above: Result Comment: Unab le to calculate this test result accurately. Results used to calculate this test are outside the reportable range. Albumin/Globulin [Mass ratio] 1.2 {ratio} Invalid Interpretation Code 1.1 - 2.5 ratio AO ADM SS ALP [Catalytic activity/Vol] 49 U/L Invalid Interpretation Code 40 - 135 U/L AO ADM SS ALT With P-5'-P [Catalytic activity/Vol] 23 U/L Invalid Interpretation Code 16 - 63 U/L AO ADM SS AST With P-5'-P [Catalytic activity/Vol] 22 U/L Invalid Interpretation Code 10 - 40 U/L AO ADM SS Bilirubin [Mass/Vol] 0.4 mg/dL Invalid Interpretation Code 0.2 - 1.0 mg/dL AO ADM SS Calcium [Mass/Vol] 9.2 mg/dL Invalid Interpretation Code 8.4 - 10.2 mg/dL AO ADM SS Chloride [Moles/Vol] 100 mmol/L Invalid Interpretation Code 98 - 107 mmol/L AO ADM SS CO2 [Moles/Vol] 32 mmol/L Invalid Interpretation Code 23 - 31 mmol/L AO ADM SS Creatinine (U) [Mass/Vol] 60.7 mg/dL Invalid Interpretation Code 39.0 - 259.0 mg/dL AO ADM SS Creatinine [Mass/Vol] 1.53 mg/dL Invalid Interpretation Code 0.70 - 1.30 mg/dL AO ADM SS Electrolyte Balance 5.0 mEq/L Invalid Interpretation Code 4.0 - 15.0 mEq/L AO ADM SS Globulin 3.2 G/dL Invalid Interpretation Code AO ADM SS Glucose [Mass/Vol] 111 mg/dL Invalid Interpretation Code 83 - 110 mg/dL AO ADM SS HbA1c (Bld) [Mass fraction] 6.5 % Invalid Interpretation Code 4.3 - 6.4 % AO ADM SS Potassium [Moles/Vol] 4.9 mmol/L Invalid Interpretation Code 3.5 - 5.1 mmol/L AO ADM SS Protein [Mass/Vol] 7.0 G/dL Invalid Interpretation Code 6.4 - 8.2 G/dL AO ADM SS Sodium [Moles/Vol] 137 mmol/L Invalid Interpretation Code 136 - 145 mmol/L AO ADM SS TSH Qn 1.88 m[IU]/L Invalid Interpretation Code 0.36 - 3.74 mcIU/mL AO ADM SS Urea nitrogen [Mass/Vol] 28 mg/dL Invalid Interpretation Code 7 - 18 mg/dL AO ADM SS Urea nitrogen/Creatinine [Mass ratio] 18 ratio Invalid Interpretation Code 7 - 27 ratio AO ADM SS Vit. D 25-Hydroxy 94.3 ng/mL Invalid Interpretation Code AO ADM SS LABORATORYOrdered By: Brian Wallace on 04-02-2022 Basophil, Absolute 0.1 103/mcL Invalid Interpretation Code 0.0 - 0.2 10^3/mcL AO Workflow SS Basophils/100 WBC (Bld) 1.4 % Invalid Interpretation Code 0.0 - 2.5 % AO Workflow SS Eosinophil, Absolute 0.2 103/mcL Invalid Interpretation Code 0.0 - 0.4 10^3/mcL AO Workflow SS Eosinophils/100 WBC (Bld) 6.1 % Invalid Interpretation Code 0.0 - 7.0 % AO Workflow SS Erythrocyte distribution width (RBC) [Ratio] 15.2 % Invalid Interpretation Code 11.5 - 14.5 % AO Workflow SS Hematocrit (Bld) [Volume fraction] 37.5 % Invalid Interpretation Code 42.0 - 52.0 % AO Workflow SS Hemoglobin (Bld) [Mass/Vol] 12.6 G/dL Invalid Interpretation Code 14.0 - 18.0 G/dL AO Workflow SS Lymphocyte, Absolute 0.8 103/mcL Invalid Interpretation Code 0.8 - 3.9 10^3/mcL AO Workflow SS Lymphocytes/100 WBC (Bld) 19.9 % Invalid Interpretation Code 10.0 - 50.0 % AO Workflow SS MCH (RBC) [Entitic mass] 29.3 pg Invalid Interpretation Code 27.0 - 31.2 pg AO Workflow SS MCHC 33.7 G/dL Invalid Interpretation Code 31.8 - 35.4 G/dL AO Workflow SS MCV (RBC) [Entitic vol] 87.1 fL Invalid Interpretation Code 80.0 - 94.0 fL AO Workflow SS Monocyte, Absolute 0.7 103/mcL Invalid Interpretation Code 0.2 - 1.0 10^3/mcL AO Workflow SS Monocytes/100 WBC (Bld) 18.1 % Invalid Interpretation Code 1.7 - 13.0 % AO Workflow SS Neutrophil, Absolute 2.1 103/mcL Invalid Interpretation Code 2.9 - 6.2 10^3/mcL AO Workflow SS Neutrophils/100 WBC (Bld) 54.5 % Invalid Interpretation Code 37.0 - 80.0 % AO Workflow SS Platelet mean volume (Bld) [Entitic vol] 7.8 fL Invalid Interpretation Code 7.4 - 10.4 fL AO Workflow SS Platelets (Bld) [#/Vol] 160 103/mcL Invalid Interpretation Code 130 - 400 10^3/mcL AO Workflow SS RBC (Bld) [#/Vol] 4.30 106/mcL Invalid Interpretation Code 4.04 - 6.13 10^6/mcL AO Workflow SS WBC 3.9 103/mcL Invalid Interpretation Code 4.6 - 10.8 10^3/mcL AO Workflow SS LABORATORYOrdered By: SYSTEM SYSTEM on 04-02-2022 GFR 53 ml/min/1.73sqm Invalid Interpretation Code AO Chemistry S GFR Non- 43 ml/min/1.73sqm Invalid Interpretation Code AO Chemistry S Monocyte distribution width Auto (Bld) [Entitic vol] Not Performed 1 *NA* (04/02/22 9:07 AM) Invalid Interpretation Code 0.00 - 20.00 AO Hematology S Comment on above: Result Comment: MDW testing performed only on adult ER patients between the ages of 18-89 years. LABORATORYOrdered By: Brian Wallace on 03-09-2022 Albumin BCP dye [Mass/Vol] 3.9 G/dL Invalid Interpretation Code 3.4 - 4.8 G/dL AO ADM SS Albumin/Globulin [Mass ratio] 1.3 {ratio} Invalid Interpretation Code 1.1 - 2.5 ratio AO ADM SS ALP [Catalytic activity/Vol] 59 U/L Invalid Interpretation Code 40 - 135 U/L AO ADM SS ALT With P-5'-P [Catalytic activity/Vol] 30 U/L Invalid Interpretation Code 16 - 63 U/L AO ADM SS AST With P-5'-P [Catalytic activity/Vol] 22 U/L Invalid Interpretation Code 10 - 40 U/L AO ADM SS Bilirubin [Mass/Vol] 0.3 mg/dL Invalid Interpretation Code 0.2 - 1.0 mg/dL AO ADM SS Calcium [Mass/Vol] 8.9 mg/dL Invalid Interpretation Code 8.4 - 10.2 mg/dL AO ADM SS Chloride [Moles/Vol] 104 mmol/L Invalid Interpretation Code 98 - 107 mmol/L AO ADM SS CO2 [Moles/Vol] 30 mmol/L Invalid Interpretation Code 23 - 31 mmol/L AO ADM SS Creatinine [Mass/Vol] 1.48 mg/dL Invalid Interpretation Code 0.70 - 1.30 mg/dL AO ADM SS Electrolyte Balance 6.0 mEq/L Invalid Interpretation Code 4.0 - 15.0 mEq/L AO ADM SS Globulin 3.1 G/dL Invalid Interpretation Code AO ADM SS Glucose [Mass/Vol] 103 mg/dL Invalid Interpretation Code 83 - 110 mg/dL AO ADM SS Potassium [Moles/Vol] 4.6 mmol/L Invalid Interpretation Code 3.5 - 5.1 mmol/L AO ADM SS Protein [Mass/Vol] 7.0 G/dL Invalid Interpretation Code 6.4 - 8.2 G/dL AO ADM SS Sodium [Moles/Vol] 140 mmol/L Invalid Interpretation Code 136 - 145 mmol/L AO ADM SS Urea nitrogen [Mass/Vol] 33 mg/dL Invalid Interpretation Code 7 - 18 mg/dL AO ADM SS Urea nitrogen/Creatinine [Mass ratio] 22 ratio Invalid Interpretation Code 7 - 27 ratio AO ADM SS LABORATORYOrdered By: Lavon Santiago on 03-09-2022 Basophil, Absolute 0.0 103/mcL Invalid Interpretation Code 0.0 - 0.2 10^3/mcL AO Workflow SS Basophils/100 WBC (Bld) 1.1 % Invalid Interpretation Code 0.0 - 2.5 % AO Workflow SS Eosinophil, Absolute 0.2 103/mcL Invalid Interpretation Code 0.0 - 0.4 10^3/mcL AO Workflow SS Eosinophils/100 WBC (Bld) 4.7 % Invalid Interpretation Code 0.0 - 7.0 % AO Workflow SS Erythrocyte distribution width (RBC) [Ratio] 15.6 % Invalid Interpretation Code 11.5 - 14.5 % AO Workflow SS Hematocrit (Bld) [Volume fraction] 39.3 % Invalid Interpretation Code 42.0 - 52.0 % AO Workflow SS Hemoglobin (Bld) [Mass/Vol] 13.1 G/dL Invalid Interpretation Code 14.0 - 18.0 G/dL AO Workflow SS Lymphocyte, Absolute 0.7 103/mcL Invalid Interpretation Code 0.8 - 3.9 10^3/mcL AO Workflow SS Lymphocytes/100 WBC (Bld) 15.6 % Invalid Interpretation Code 10.0 - 50.0 % AO Workflow SS MCH (RBC) [Entitic mass] 29.2 pg Invalid Interpretation Code 27.0 - 31.2 pg AO Workflow SS MCHC 33.4 G/dL Invalid Interpretation Code 31.8 - 35.4 G/dL AO Workflow SS MCV (RBC) [Entitic vol] 87.4 fL Invalid Interpretation Code 80.0 - 94.0 fL AO Workflow SS Monocyte, Absolute 0.7 103/mcL Invalid Interpretation Code 0.2 - 1.0 10^3/mcL AO Workflow SS Monocytes/100 WBC (Bld) 15.4 % Invalid Interpretation Code 1.7 - 13.0 % AO Workflow SS Neutrophil, Absolute 3.0 103/mcL Invalid Interpretation Code 2.9 - 6.2 10^3/mcL AO Workflow SS Neutrophils/100 WBC (Bld) 63.2 % Invalid Interpretation Code 37.0 - 80.0 % AO Workflow SS Platelet mean volume (Bld) [Entitic vol] 7.8 fL Invalid Interpretation Code 7.4 - 10.4 fL AO Workflow SS Platelets (Bld) [#/Vol] 156 103/mcL Invalid Interpretation Code 130 - 400 10^3/mcL AO Workflow SS RBC (Bld) [#/Vol] 4.49 106/mcL Invalid Interpretation Code 4.04 - 6.13 10^6/mcL AO Workflow SS WBC 4.7 103/mcL Invalid Interpretation Code 4.6 - 10.8 10^3/mcL AO Workflow SS LABORATORYOrdered By: SYSTEM SYSTEM on 03-09-2022 GFR 55 ml/min/1.73sqm Invalid Interpretation Code AO Chemistry S GFR Non- 45 ml/min/1.73sqm Invalid Interpretation Code AO Chemistry S Monocyte distribution width Auto (Bld) [Entitic vol] Not Performed 1 *NA* (03/09/22 10:28 AM) Invalid Interpretation Code 0.00 - 20.00 AO Hematology S Comment on above: Result Comment: MDW testing performed only on adult ER patients between the ages of 18-89 years. LABORATORYOrdered By: Tata Barboza on 02-26-2022 Basophil, Absolute 0.1 103/mcL Invalid Interpretation Code 0.0 - 0.2 10^3/mcL AO Workflow SS Basophils/100 WBC (Bld) 1.0 % Invalid Interpretation Code 0.0 - 2.5 % AO Workflow SS Eosinophil, Absolute 0.2 103/mcL Invalid Interpretation Code 0.0 - 0.4 10^3/mcL AO Workflow SS Eosinophils/100 WBC (Bld) 4.3 % Invalid Interpretation Code 0.0 - 7.0 % AO Workflow SS Erythrocyte distribution width (RBC) [Ratio] 15.6 % Invalid Interpretation Code 11.5 - 14.5 % AO Workflow SS Hematocrit (Bld) [Volume fraction] 38.5 % Invalid Interpretation Code 42.0 - 52.0 % AO Workflow SS Hemoglobin (Bld) [Mass/Vol] 12.9 G/dL Invalid Interpretation Code 14.0 - 18.0 G/dL AO Workflow SS Lymphocyte, Absolute 0.9 103/mcL Invalid Interpretation Code 0.8 - 3.9 10^3/mcL AO Workflow SS Lymphocytes/100 WBC (Bld) 18.0 % Invalid Interpretation Code 10.0 - 50.0 % AO Workflow SS MCH (RBC) [Entitic mass] 29.3 pg Invalid Interpretation Code 27.0 - 31.2 pg AO Workflow SS MCHC 33.6 G/dL Invalid Interpretation Code 31.8 - 35.4 G/dL AO Workflow SS MCV (RBC) [Entitic vol] 87.3 fL Invalid Interpretation Code 80.0 - 94.0 fL AO Workflow SS Monocyte, Absolute 0.7 103/mcL Invalid Interpretation Code 0.2 - 1.0 10^3/mcL AO Workflow SS Monocytes/100 WBC (Bld) 13.9 % Invalid Interpretation Code 1.7 - 13.0 % AO Workflow SS Neutrophil, Absolute 3.1 103/mcL Invalid Interpretation Code 2.9 - 6.2 10^3/mcL AO Workflow SS Neutrophils/100 WBC (Bld) 62.8 % Invalid Interpretation Code 37.0 - 80.0 % AO Workflow SS Platelet mean volume (Bld) [Entitic vol] 7.9 fL Invalid Interpretation Code 7.4 - 10.4 fL AO Workflow SS Platelets (Bld) [#/Vol] 167 103/mcL Invalid Interpretation Code 130 - 400 10^3/mcL AO Workflow SS RBC (Bld) [#/Vol] 4.41 106/mcL Invalid Interpretation Code 4.04 - 6.13 10^6/mcL AO Workflow SS WBC 5.0 103/mcL Invalid Interpretation Code 4.6 - 10.8 10^3/mcL AO Workflow SS LABORATORYOrdered By: Lavon Santiago on 02-26-2022 Calcium [Mass/Vol] 9.6 mg/dL Invalid Interpretation Code 8.4 - 10.2 mg/dL AO ADM SS Chloride [Moles/Vol] 105 mmol/L Invalid Interpretation Code 98 - 107 mmol/L AO ADM SS CO2 [Moles/Vol] 29 mmol/L Invalid Interpretation Code 23 - 31 mmol/L AO ADM SS Creatinine [Mass/Vol] 1.62 mg/dL Invalid Interpretation Code 0.70 - 1.30 mg/dL AO ADM SS Electrolyte Balance 8.0 mEq/L Invalid Interpretation Code 4.0 - 15.0 mEq/L AO ADM SS Glucose [Mass/Vol] 92 mg/dL Invalid Interpretation Code 83 - 110 mg/dL AO ADM SS HbA1c (Bld) [Mass fraction] 6.4 % Invalid Interpretation Code 4.3 - 6.4 % AO ADM SS Potassium [Moles/Vol] 5.0 mmol/L Invalid Interpretation Code 3.5 - 5.1 mmol/L AO ADM SS Sodium [Moles/Vol] 142 mmol/L Invalid Interpretation Code 136 - 145 mmol/L AO ADM SS Urea nitrogen [Mass/Vol] 36 mg/dL Invalid Interpretation Code 7 - 18 mg/dL AO ADM SS Urea nitrogen/Creatinine [Mass ratio] 22 ratio Invalid Interpretation Code 7 - 27 ratio AO ADM SS LABORATORYOrdered By: SYSTEM SYSTEM on 02-26-2022 GFR 49 ml/min/1.73sqm Invalid Interpretation Code AO Chemistry S GFR Non- 41 ml/min/1.73sqm Invalid Interpretation Code AO Chemistry S Monocyte distribution width Auto (Bld) [Entitic vol] Not Performed 1 *NA* (02/26/22 2:50 PM) Invalid Interpretation Code 0.00 - 20.00 AO Hematology S Comment on above: Result Comment: MDW testing performed only on adult ER patients between the ages of 18-89 years. LABORATORYOrdered By: Lavon Ramos on 12-08-2021 Albumin BCP dye [Mass/Vol] 3.5 G/dL Invalid Interpretation Code 3.4 - 4.8 G/dL AO ADM SS Albumin/Globulin [Mass ratio] 1.0 {ratio} Invalid Interpretation Code 1.1 - 2.5 ratio AO ADM SS ALP [Catalytic activity/Vol] 52 U/L Invalid Interpretation Code 40 - 135 U/L AO ADM SS ALT With P-5'-P [Catalytic activity/Vol] 27 U/L Invalid Interpretation Code 16 - 63 U/L AO ADM SS AST With P-5'-P [Catalytic activity/Vol] 26 U/L Invalid Interpretation Code 10 - 40 U/L AO ADM SS Bilirubin [Mass/Vol] 0.4 mg/dL Invalid Interpretation Code 0.2 - 1.0 mg/dL AO ADM SS Calcium [Mass/Vol] 9.1 mg/dL Invalid Interpretation Code 8.4 - 10.2 mg/dL AO ADM SS Chloride [Moles/Vol] 101 mmol/L Invalid Interpretation Code 98 - 107 mmol/L AO ADM SS CO2 [Moles/Vol] 31 mmol/L Invalid Interpretation Code 23 - 31 mmol/L AO ADM SS Creatinine [Mass/Vol] 1.33 mg/dL Invalid Interpretation Code 0.70 - 1.30 mg/dL AO ADM SS Electrolyte Balance 7.0 mEq/L Invalid Interpretation Code 4.0 - 15.0 mEq/L AO ADM SS Globulin 3.4 G/dL Invalid Interpretation Code AO ADM SS Glucose [Mass/Vol] 116 mg/dL Invalid Interpretation Code 83 - 110 mg/dL AO ADM SS Potassium [Moles/Vol] 4.4 mmol/L Invalid Interpretation Code 3.5 - 5.1 mmol/L AO ADM SS Protein [Mass/Vol] 6.9 G/dL Invalid Interpretation Code 6.4 - 8.2 G/dL AO ADM SS Sodium [Moles/Vol] 139 mmol/L Invalid Interpretation Code 136 - 145 mmol/L AO ADM SS Urea nitrogen [Mass/Vol] 28 mg/dL Invalid Interpretation Code 7 - 18 mg/dL AO ADM SS Urea nitrogen/Creatinine [Mass ratio] 21 ratio Invalid Interpretation Code 7 - 27 ratio AO ADM SS LABORATORYOrdered By: Tata Barboza on 12-08-2021 Basophil, Absolute 0.10 103/mcL Invalid Interpretation Code 0.00 - 0.19 10^3/mcL AO Auto Heme SS Basophils/100 WBC (Bld) 0.9 % Invalid Interpretation Code 0.0 - 2.5 % AO Auto Heme SS Eosinophil, Absolute 0.20 103/mcL Invalid Interpretation Code 0.00 - 0.40 10^3/mcL AO Auto Heme SS Eosinophils/100 WBC (Bld) 2.9 % Invalid Interpretation Code 0.0 - 7.0 % AO Auto Heme SS Erythrocyte distribution width (RBC) [Ratio] 14.8 % Invalid Interpretation Code 11.5 - 14.5 % AO Auto Heme SS Hematocrit (Bld) [Volume fraction] 37.3 % Invalid Interpretation Code 42.0 - 52.0 % AO Auto Heme SS Hemoglobin (Bld) [Mass/Vol] 12.4 G/dL Invalid Interpretation Code 14.0 - 18.0 G/dL AO Auto Heme SS Lymphocyte, Absolute 0.90 103/mcL Invalid Interpretation Code 0.77 - 3.85 10^3/mcL AO Auto Heme SS Lymphocytes/100 WBC (Bld) 13.7 % Invalid Interpretation Code 10.0 - 50.0 % AO Auto Heme SS MCH (RBC) [Entitic mass] 28.7 pg Invalid Interpretation Code 27.0 - 31.2 pg AO Auto Heme SS MCHC (RBC) [Mass/Vol] 33.2 G/dL Invalid Interpretation Code 31.8 - 35.4 G/dL AO Auto Heme SS MCV (RBC) [Entitic vol] 86.3 fL Invalid Interpretation Code 80.0 - 94.0 fL AO Auto Heme SS Monocyte, Absolute 0.90 103/mcL Invalid Interpretation Code 0.15 - 1.00 10^3/mcL AO Auto Heme SS Monocytes/100 WBC (Bld) 13.9 % Invalid Interpretation Code 1.7 - 13.0 % AO Auto Heme SS Neutrophil, Absolute 4.40 103/mcL Invalid Interpretation Code 2.85 - 6.16 10^3/mcL AO Auto Heme SS Neutrophils/100 WBC (Bld) 68.6 % Invalid Interpretation Code 37.0 - 80.0 % AO Auto Heme SS Platelet mean volume (Bld) [Entitic vol] 7.9 fL Invalid Interpretation Code 7.4 - 10.4 fL AO Auto Heme SS Platelets (Bld) [#/Vol] 198 103/mcL Invalid Interpretation Code 130 - 400 10^3/mcL AO Auto Heme SS RBC (Bld) [#/Vol] 4.32 106/mcL Invalid Interpretation Code 4.04 - 6.13 10^6/mcL AO Auto Heme SS WBC (Bld) [#/Vol] 6.40 103/mcL Invalid Interpretation Code 4.60 - 10.80 10^3/mcL AO Auto Heme SS LABORATORYOrdered By: SYSTEM SYSTEM on 12-08-2021 GFR 62 ml/min/1.73sqm Invalid Interpretation Code AO Chemistry S GFR Non- 51 ml/min/1.73sqm Invalid Interpretation Code AO Chemistry S LABORATORYOrdered By: Laovn Ramos on 11-05-2021 Albumin BCP dye [Mass/Vol] 3.6 G/dL Invalid Interpretation Code 3.4 - 4.8 G/dL AO ADM SS Albumin/Globulin [Mass ratio] 1.2 {ratio} Invalid Interpretation Code 1.1 - 2.5 ratio AO ADM SS ALP [Catalytic activity/Vol] 48 U/L Invalid Interpretation Code 40 - 135 U/L AO ADM SS ALT With P-5'-P [Catalytic activity/Vol] 26 U/L Invalid Interpretation Code 16 - 63 U/L AO ADM SS AST With P-5'-P [Catalytic activity/Vol] 29 U/L Invalid Interpretation Code 10 - 40 U/L AO ADM SS Bilirubin [Mass/Vol] 0.4 mg/dL Invalid Interpretation Code 0.2 - 1.0 mg/dL AO ADM SS Calcium [Mass/Vol] 9.5 mg/dL Invalid Interpretation Code 8.4 - 10.2 mg/dL AO ADM SS Chloride [Moles/Vol] 102 mmol/L Invalid Interpretation Code 98 - 107 mmol/L AO ADM SS Cholesterol [Mass/Vol] 189 mg/dL Invalid Interpretation Code 0 - 200 mg/dL AO ADM SS Cholesterol in HDL [Mass/Vol] 46 mg/dL Invalid Interpretation Code 40 - 60 mg/dL AO ADM SS Cholesterol in LDL [Mass/Vol] 125 mg/dL Invalid Interpretation Code 0 - 130 mg/dL AO ADM SS CO2 [Moles/Vol] 29 mmol/L Invalid Interpretation Code 23 - 31 mmol/L AO ADM SS Creatinine [Mass/Vol] 1.34 mg/dL Invalid Interpretation Code 0.70 - 1.30 mg/dL AO ADM SS Electrolyte Balance 8.0 mEq/L Invalid Interpretation Code 4.0 - 15.0 mEq/L AO ADM SS Globulin 3.1 G/dL Invalid Interpretation Code AO ADM SS Glucose [Mass/Vol] 112 mg/dL Invalid Interpretation Code 83 - 110 mg/dL AO ADM SS Iron [Mass/Vol] 100 ug/dL Invalid Interpretation Code 65 - 175 mcg/dL AO ADM SS Potassium [Moles/Vol] 5.0 mmol/L Invalid Interpretation Code 3.5 - 5.1 mmol/L AO ADM SS Protein [Mass/Vol] 6.7 G/dL Invalid Interpretation Code 6.4 - 8.2 G/dL AO ADM SS Sodium [Moles/Vol] 139 mmol/L Invalid Interpretation Code 136 - 145 mmol/L AO ADM SS Triglyceride [Mass/Vol] 92 mg/dL Invalid Interpretation Code 0 - 150 mg/dL AO ADM SS Urea nitrogen [Mass/Vol] 31 mg/dL Invalid Interpretation Code 7 - 18 mg/dL AO ADM SS Urea nitrogen/Creatinine [Mass ratio] 23 ratio Invalid Interpretation Code 7 - 27 ratio AO ADM SS LABORATORYOrdered By: Tata Barboza on 11-05-2021 Basophil, Absolute 0.10 103/mcL Invalid Interpretation Code 0.00 - 0.19 10^3/mcL AO Auto Heme SS Basophils/100 WBC (Bld) 1.4 % Invalid Interpretation Code 0.0 - 2.5 % AO Auto Heme SS Eosinophil, Absolute 0.20 103/mcL Invalid Interpretation Code 0.00 - 0.40 10^3/mcL AO Auto Heme SS Eosinophils/100 WBC (Bld) 4.2 % Invalid Interpretation Code 0.0 - 7.0 % AO Auto Heme SS Erythrocyte distribution width (RBC) [Ratio] 14.8 % Invalid Interpretation Code 11.5 - 14.5 % AO Auto Heme SS Hematocrit (Bld) [Volume fraction] 38.3 % Invalid Interpretation Code 42.0 - 52.0 % AO Auto Heme SS Hemoglobin (Bld) [Mass/Vol] 12.7 G/dL Invalid Interpretation Code 14.0 - 18.0 G/dL AO Auto Heme SS Lymphocyte, Absolute 0.60 103/mcL Invalid Interpretation Code 0.77 - 3.85 10^3/mcL AO Auto Heme SS Lymphocytes/100 WBC (Bld) 15.4 % Invalid Interpretation Code 10.0 - 50.0 % AO Auto Heme SS MCH (RBC) [Entitic mass] 28.8 pg Invalid Interpretation Code 27.0 - 31.2 pg AO Auto Heme SS MCHC (RBC) [Mass/Vol] 33.1 G/dL Invalid Interpretation Code 31.8 - 35.4 G/dL AO Auto Heme SS MCV (RBC) [Entitic vol] 87.2 fL Invalid Interpretation Code 80.0 - 94.0 fL AO Auto Heme SS Monocyte, Absolute 0.60 103/mcL Invalid Interpretation Code 0.15 - 1.00 10^3/mcL AO Auto Heme SS Monocytes/100 WBC (Bld) 15.1 % Invalid Interpretation Code 1.7 - 13.0 % AO Auto Heme SS Neutrophil, Absolute 2.60 103/mcL Invalid Interpretation Code 2.85 - 6.16 10^3/mcL AO Auto Heme SS Neutrophils/100 WBC (Bld) 63.9 % Invalid Interpretation Code 37.0 - 80.0 % AO Auto Heme SS Platelet mean volume (Bld) [Entitic vol] 8.1 fL Invalid Interpretation Code 7.4 - 10.4 fL AO Auto Heme SS Platelets (Bld) [#/Vol] 160 103/mcL Invalid Interpretation Code 130 - 400 10^3/mcL AO Auto Heme SS RBC (Bld) [#/Vol] 4.39 106/mcL Invalid Interpretation Code 4.04 - 6.13 10^6/mcL AO Auto Heme SS WBC (Bld) [#/Vol] 4.10 103/mcL Invalid Interpretation Code 4.60 - 10.80 10^3/mcL AO Auto Heme SS LABORATORYOrdered By: SYSTEM SYSTEM on 11-05-2021 Ferritin [Mass/Vol] 68.6 ng/mL Invalid Interpretation Code 26.0 - 388.0 ng/mL AH ADM SS GFR 62 ml/min/1.73sqm Invalid Interpretation Code AO Chemistry S GFR Non- 51 ml/min/1.73sqm Invalid Interpretation Code AO Chemistry S LABORATORYOrdered By: Brian Wallace on 11-05-2021 HbA1c (Bld) [Mass fraction] 6.2 % Invalid Interpretation Code 4.3 - 6.4 % AO ADM SS LABORATORYOrdered By: Brian Wallace on 09-11-2021 Prostate specific Ag [Mass/Vol] 6.57 ng/mL Invalid Interpretation Code 0.00 - 4.00 ng/mL AO ADM SS Albumin BCP dye [Mass/Vol] 3.8 G/dL Invalid Interpretation Code 3.4 - 4.8 G/dL AO ADM SS Albumin/Globulin [Mass ratio] 1.2 {ratio} Invalid Interpretation Code 1.1 - 2.5 ratio AO ADM SS ALP [Catalytic activity/Vol] 59 U/L Invalid Interpretation Code 40 - 135 U/L AO ADM SS ALT With P-5'-P [Catalytic activity/Vol] 29 U/L Invalid Interpretation Code 16 - 63 U/L AO ADM SS AST With P-5'-P [Catalytic activity/Vol] 28 U/L Invalid Interpretation Code 10 - 40 U/L AO ADM SS Bilirubin [Mass/Vol] 0.4 mg/dL Invalid Interpretation Code 0.2 - 1.0 mg/dL AO ADM SS Calcium [Mass/Vol] 9.5 mg/dL Invalid Interpretation Code 8.4 - 10.2 mg/dL AO ADM SS Chloride [Moles/Vol] 100 mmol/L Invalid Interpretation Code 98 - 107 mmol/L AO ADM SS CO2 [Moles/Vol] 30 mmol/L Invalid Interpretation Code 23 - 31 mmol/L AO ADM SS Creatinine [Mass/Vol] 1.37 mg/dL Invalid Interpretation Code 0.70 - 1.30 mg/dL AO ADM SS Electrolyte Balance 5.0 mEq/L Invalid Interpretation Code AO ADM SS Globulin 3.1 G/dL Invalid Interpretation Code AO ADM SS Glucose [Mass/Vol] 101 mg/dL Invalid Interpretation Code 83 - 110 mg/dL AO ADM SS Potassium [Moles/Vol] 4.5 mmol/L Invalid Interpretation Code 3.5 - 5.1 mmol/L AO ADM SS Protein [Mass/Vol] 6.9 G/dL Invalid Interpretation Code 6.4 - 8.2 G/dL AO ADM SS Sodium [Moles/Vol] 135 mmol/L Invalid Interpretation Code 136 - 145 mmol/L AO ADM SS Urea nitrogen [Mass/Vol] 37 mg/dL Invalid Interpretation Code 7 - 18 mg/dL AO ADM SS Urea nitrogen/Creatinine [Mass ratio] 27 ratio Invalid Interpretation Code 7 - 27 ratio AO ADM SS LABORATORYOrdered By: Tata Barboza on 09-11-2021 Basophil, Absolute 0.10 103/mcL Invalid Interpretation Code 0.00 - 0.19 10^3/mcL AO Auto Heme SS Basophils/100 WBC (Bld) 1.3 % Invalid Interpretation Code 0.0 - 2.5 % AO Auto Heme SS Eosinophil, Absolute 0.20 103/mcL Invalid Interpretation Code 0.00 - 0.40 10^3/mcL AO Auto Heme SS Eosinophils/100 WBC (Bld) 4.1 % Invalid Interpretation Code 0.0 - 7.0 % AO Auto Heme SS Erythrocyte distribution width (RBC) [Ratio] 15.1 % Invalid Interpretation Code 11.5 - 14.5 % AO Auto Heme SS Hematocrit (Bld) [Volume fraction] 39.4 % Invalid Interpretation Code 42.0 - 52.0 % AO Auto Heme SS Hemoglobin (Bld) [Mass/Vol] 12.9 G/dL Invalid Interpretation Code 14.0 - 18.0 G/dL AO Auto Heme SS Lymphocyte, Absolute 0.80 103/mcL Invalid Interpretation Code 0.77 - 3.85 10^3/mcL AO Auto Heme SS Lymphocytes/100 WBC (Bld) 17.1 % Invalid Interpretation Code 10.0 - 50.0 % AO Auto Heme SS MCH (RBC) [Entitic mass] 28.7 pg Invalid Interpretation Code 27.0 - 31.2 pg AO Auto Heme SS MCHC (RBC) [Mass/Vol] 32.8 G/dL Invalid Interpretation Code 31.8 - 35.4 G/dL AO Auto Heme SS MCV (RBC) [Entitic vol] 87.5 fL Invalid Interpretation Code 80.0 - 94.0 fL AO Auto Heme SS Monocyte, Absolute 0.80 103/mcL Invalid Interpretation Code 0.15 - 1.00 10^3/mcL AO Auto Heme SS Monocytes/100 WBC (Bld) 17.5 % Invalid Interpretation Code 1.7 - 13.0 % AO Auto Heme SS Neutrophil, Absolute 2.70 103/mcL Invalid Interpretation Code 2.85 - 6.16 10^3/mcL AO Auto Heme SS Neutrophils/100 WBC (Bld) 60.0 % Invalid Interpretation Code 37.0 - 80.0 % AO Auto Heme SS Platelet mean volume (Bld) [Entitic vol] 8.0 fL Invalid Interpretation Code 7.4 - 10.4 fL AO Auto Heme SS Platelets (Bld) [#/Vol] 168 103/mcL Invalid Interpretation Code 130 - 400 10^3/mcL AO Auto Heme SS RBC (Bld) [#/Vol] 4.50 106/mcL Invalid Interpretation Code 4.04 - 6.13 10^6/mcL AO Auto Heme SS WBC (Bld) [#/Vol] 4.40 103/mcL Invalid Interpretation Code 4.60 - 10.80 10^3/mcL AO Auto Heme SS LABORATORYOrdered By: SYSTEM SYSTEM on 09-11-2021 GFR 60 ml/min/1.73sqm Invalid Interpretation Code AO Chemistry S GFR Non- 50 ml/min/1.73sqm Invalid Interpretation Code AO Chemistry S LABORATORYOrdered By: Sophie Mendez on 06-23-2021 Albumin BCP dye [Mass/Vol] 3.8 G/dL Invalid Interpretation Code 3.4 - 4.8 G/dL AO ADM SS Albumin/Globulin [Mass ratio] 1.4 {ratio} Invalid Interpretation Code 1.1 - 2.5 ratio AO ADM SS ALP [Catalytic activity/Vol] 52 U/L Invalid Interpretation Code 40 - 135 U/L AO ADM SS ALT With P-5'-P [Catalytic activity/Vol] 27 U/L Invalid Interpretation Code 16 - 63 U/L AO ADM SS AST With P-5'-P [Catalytic activity/Vol] 24 U/L Invalid Interpretation Code 10 - 40 U/L AO ADM SS Bilirubin [Mass/Vol] 0.4 mg/dL Invalid Interpretation Code 0.2 - 1.0 mg/dL AO ADM SS Calcium [Mass/Vol] 9.0 mg/dL Invalid Interpretation Code 8.4 - 10.2 mg/dL AO ADM SS Chloride [Moles/Vol] 103 mmol/L Invalid Interpretation Code 98 - 107 mmol/L AO ADM SS Cholesterol [Mass/Vol] 224 mg/dL Invalid Interpretation Code 0 - 200 mg/dL AO ADM SS Cholesterol in HDL [Mass/Vol] 44 mg/dL Invalid Interpretation Code 40 - 60 mg/dL AO ADM SS Cholesterol in LDL [Mass/Vol] 155 mg/dL Invalid Interpretation Code 0 - 130 mg/dL AO ADM SS CO2 [Moles/Vol] 29 mmol/L Invalid Interpretation Code 23 - 31 mmol/L AO ADM SS Creatinine [Mass/Vol] 1.21 mg/dL Invalid Interpretation Code 0.70 - 1.30 mg/dL AO ADM SS Electrolyte Balance 8.0 mEq/L Invalid Interpretation Code AO ADM SS Globulin 2.8 G/dL Invalid Interpretation Code AO ADM SS Glucose [Mass/Vol] 115 mg/dL Invalid Interpretation Code 83 - 110 mg/dL AO ADM SS Potassium [Moles/Vol] 4.4 mmol/L Invalid Interpretation Code 3.5 - 5.1 mmol/L AO ADM SS Protein [Mass/Vol] 6.6 G/dL Invalid Interpretation Code 6.4 - 8.2 G/dL AO ADM SS Sodium [Moles/Vol] 140 mmol/L Invalid Interpretation Code 136 - 145 mmol/L AO ADM SS Triglyceride [Mass/Vol] 125 mg/dL Invalid Interpretation Code 0 - 150 mg/dL AO ADM SS Urea nitrogen [Mass/Vol] 21 mg/dL Invalid Interpretation Code 7 - 18 mg/dL AO ADM SS Urea nitrogen/Creatinine [Mass ratio] 17 ratio Invalid Interpretation Code 7 - 27 ratio AO ADM SS Vit. D 25-Hydroxy 82.0 ng/mL Invalid Interpretation Code AO ADM SS LABORATORYOrdered By: Brian Wallace on 06-23-2021 Albumin DL <= 20 mg/L (U) [Mass/Vol] 169 mcg/dL Invalid Interpretation Code AO ADM SS Albumin/Creatinine DL <= 20 mg/L (U) [Mass ratio] 6 mcg/mg Invalid Interpretation Code 0 - 30 mcg/mg AO ADM SS Creatinine (U) [Mass/Vol] 28.4 mg/dL Invalid Interpretation Code 39.0 - 259.0 mg/dL AO ADM SS HbA1c (Bld) [Mass fraction] 6.4 % Invalid Interpretation Code 4.3 - 6.4 % AO ADM SS LABORATORYOrdered By: Tata Barboza on 06-23-2021 Basophil, Absolute 0.00 103/mcL Invalid Interpretation Code 0.00 - 0.19 10^3/mcL AO Auto Heme SS Basophils/100 WBC (Bld) 0.9 % Invalid Interpretation Code 0.0 - 2.5 % AO Auto Heme SS Eosinophil, Absolute 0.10 103/mcL Invalid Interpretation Code 0.00 - 0.40 10^3/mcL AO Auto Heme SS Eosinophils/100 WBC (Bld) 2.8 % Invalid Interpretation Code 0.0 - 7.0 % AO Auto Heme SS Erythrocyte distribution width (RBC) [Ratio] 13.8 % Invalid Interpretation Code 11.5 - 14.5 % AO Auto Heme SS Hematocrit (Bld) [Volume fraction] 40.1 % Invalid Interpretation Code 42.0 - 52.0 % AO Auto Heme SS Hemoglobin (Bld) [Mass/Vol] 13.4 G/dL Invalid Interpretation Code 14.0 - 18.0 G/dL AO Auto Heme SS Lymphocyte, Absolute 0.80 103/mcL Invalid Interpretation Code 0.77 - 3.85 10^3/mcL AO Auto Heme SS Lymphocytes/100 WBC (Bld) 16.6 % Invalid Interpretation Code 10.0 - 50.0 % AO Auto Heme SS MCH (RBC) [Entitic mass] 30.1 pg Invalid Interpretation Code 27.0 - 31.2 pg AO Auto Heme SS MCHC (RBC) [Mass/Vol] 33.5 G/dL Invalid Interpretation Code 31.8 - 35.4 G/dL AO Auto Heme SS MCV (RBC) [Entitic vol] 90.0 fL Invalid Interpretation Code 80.0 - 94.0 fL AO Auto Heme SS Monocyte, Absolute 0.70 103/mcL Invalid Interpretation Code 0.15 - 1.00 10^3/mcL AO Auto Heme SS Monocytes/100 WBC (Bld) 14.6 % Invalid Interpretation Code 1.7 - 13.0 % AO Auto Heme SS Neutrophil, Absolute 3.30 103/mcL Invalid Interpretation Code 2.85 - 6.16 10^3/mcL AO Auto Heme SS Neutrophils/100 WBC (Bld) 65.1 % Invalid Interpretation Code 37.0 - 80.0 % AO Auto Heme SS Platelet mean volume (Bld) [Entitic vol] 8.3 fL Invalid Interpretation Code 7.4 - 10.4 fL AO Auto Heme SS Platelets (Bld) [#/Vol] 156 103/mcL Invalid Interpretation Code 130 - 400 10^3/mcL AO Auto Heme SS RBC (Bld) [#/Vol] 4.45 106/mcL Invalid Interpretation Code 4.04 - 6.13 10^6/mcL AO Auto Heme SS WBC (Bld) [#/Vol] 5.00 103/mcL Invalid Interpretation Code 4.60 - 10.80 10^3/mcL AO Auto Heme SS LABORATORYOrdered By: SYSTEM SYSTEM on 06-23-2021 GFR 69 ml/min/1.73sqm Invalid Interpretation Code AO Chemistry S GFR Non- 57 ml/min/1.73sqm Invalid Interpretation Code AO Chemistry S URINE CULTUREon 09-17-2017 Urine culture, bacteria ORGANISM 1: PROTEUS MIRABILISCOLONY COUNT >100,000PROTEUS MIRABILIS: REACTION AMIKACIN <16 S AMPICILLIN <8 S CEFAZOLIN <8 S CEFEPIME <4 S CEFOTAXIME <2 S CEFTAZIDIME <1 S CEFUROXIME <4 S CIPROFLOXACIN <1 S GENTAMICIN <4 S ERTAPENEM <2 S NITROFURANTOIN >64 R PIPERACILLIN/TAZOBACTAM <16 S TOBRAMYCIN <4 S TRIMETH/SULFA <2/38 S LEVOFLOXACIN <2 S MEROPENEM <1 S Normal [facility] Comment on above: Performed By: #### M [id number] ####[facility] [id number] [place], [place] [address]Ph# [phone] UA COMPLETEon 09-15-2017 UA APPEARANCE TURBID Normal CLEAR [facility] Comment on above: Performed By: #### L [id number], [id number] ####[facility] [id number] [place], [place] [address]Ze# [phone] UA BILIRUBIN Negative Normal NEGATIVE [facility] Comment on above: Performed By: #### L [id number], [id number] ####[facility] [id number] [place], [place] [address]My# [phone] UA BLOOD Negative Normal NEGATIVE [facility] Comment on above: Performed By: #### L [id number], [id number] ####[facility] [id number] [place], [place] [address]Gv# [phone] UA COMMENT UA MICROSCOPIC Normal N [facility] Comment on above: Performed By: #### L [id number], [id number] ####[facility] [id number] [place], [place] [address]Ed# [phone] UA KETONE Negative Normal NEGATIVE [facility] Comment on above: Performed By: #### L 600.82603, L600.46563 ####[facility] [id number] [place] [address] 31164Au# [phone] UA LK ESTERASE LARGE Normal NEGATIVE [facility] Comment on above: Performed By: #### L 600.90043, L600.73540 ####[facility] [id number] [place] [address] 16408Er# [phone] UA NITRITE Positive Normal NEGATIVE [facility] Comment on above: Performed By: #### L 600.51920, L600.09956 ####[address] [address]Qb# [phone] UA PH 8.5 Normal 5-6 [facility] Comment on above: Performed By: #### L 600.65463, L600.19967 ####[facility] [id number] [place] [address] 01673Mu# [phone] UA PROTEIN 30 MG/DL Normal NEGATIVE [facility] Comment on above: Performed By: #### L 600.07276, L600.08888 ####[facility] [id number] [place] [address] 00087Mk# [phone] UA SPEC GRAV 1.021 Normal 1.005-1.030 [facility] Comment on above: Performed By: #### L 600.81973, L600.65574 ####[facility] [id number] [place] [address] 14643Hv# [phone] UA UROBILINOGEN NORMAL Normal NORMAL [facility] Comment on above: Performed By: #### L 600.13774, L600.80408 ####[facility] [id number] [place] [address] 13426Bj# [phone] Urine, color YELLOW Normal [facility] Comment on above: Performed By: #### L 600.32004, L600.64714 ####[facility] [id number] [place] [address] 44783If# [phone] Urine, glucose Negative Normal NORMAL [facility] Comment on above: Performed By: #### L 600.80596, L600.51042 ####[facility] [id number] [place] [address] 93050Hp# [phone] UA MICROSCOPICon 09-15-2017 AMORPHOUS MODERATE Normal [facility] Comment on above: Performed By: #### L 600.32143, L600.14659 ####[address] [address]Xd# [phone] EPITH CELLS 0 EPI/HPF Normal 0-5 [facility] Comment on above: Performed By: #### L 600.42556, L600.19190 ####[address] [address]35[address]Te# [phone] TRIPLE PHOS CRY FEW Normal [facility] Comment on above: Performed By: #### L 600.73317, L600.14849 ####[address] [address]Gc# [phone] UA WBC 6 WBC/HPF High 0-5 [facility] Comment on above: Performed By: #### L 600.31355, L600.19862 ####[facility] [id number] [place] [address] 21460Zj# [phone] Urine, bacteria in sediment 4+ /HPF Normal NONE [facility] Comment on above: Performed By: #### L 600.00983, L600.06677 ####[address] [address]Cc# [phone] Urine, erythrocytes 1 RBC/HPF Normal 0-3 [facility] Comment on above: Performed By: #### L 600.30006, L600.37999 ####[address] [place], [place] [address]Nf# [phone] VOL OF UR SPUN 10 ML Normal [facility] Comment on above: Performed By: #### L 600.19498, L600.00281 ####[facility] [id number] [place], [place] [address]Kp# [phone] CBC (AO)on 03-11-2017 Basophils Auto #/vol (Bld) 0.00 10 3/mcL Normal 0.00-0.19 [facility] Comment on above: Performed By: #### C BCO ####Gr[address] [address] Basophils/100 WBC Auto (Bld) 0.6 % Normal 0.0-2.5 [facility] Comment on above: Performed By: #### C BCO ####[address] [address] Eosinophils 0.20 10 3/mcL Normal 0.00-0.40 [facility] Comment on above: Performed By: #### C BCO ####[address] [address] Eosinophils/100 leukocytes 2.7 % Normal 0.0-7.0 [facility] Comment on above: Performed By: #### C BCO ####[address] [address] Erythrocyte distribution width Auto Ratio (RBC) 14.9 % High 11.5-14.5 [facility] Comment on above: Performed By: #### C BCO ####[address] [address] Erythrocytes (RBC) 5.10 10 6/mcL Normal 4.04-6.13 [facility] Comment on above: Performed By: #### C BCO ####[address] [address] Hematocrit (HCT) 44.2 % Normal 42.0-52.0 [facility] Comment on above: Performed By: #### C BCO ####[address] [address] Hemoglobin mass conc (Bld) 14.4 G/dL Normal 14.0-18.0 [facility] Comment on above: Performed By: #### C BCO ####[address] [address] Lymphocytes 0.80 10 3/mcL Normal 0.77-3.85 [facility] Comment on above: Performed By: #### C BCO ####[address] [address] Lymphocytes/100 leukocytes 14.6 % Normal 10.0-50.0 [facility] Comment on above: Performed By: #### C BCO ####[address] [address] MCH 28.2 pg Normal 27.0-31.2 [facility] Comment on above: Performed By: #### C BCO ####[address] [address] MCHC mass conc (RBC) 32.6 G/dL Normal 31.8-35.4 [facility] Comment on above: Performed By: #### C BCO ####[address] [address] MCV 86.5 fL Normal 80.0-94.0 [facility] Comment on above: Performed By: #### C BCO ####[address] [address] Monocytes 0.60 10 3/mcL Normal 0.15-1.00 [facility] Comment on above: Performed By: #### C BCO ####[address] [address] Monocytes/100 leukocytes 9.9 % Normal 1.7-13.0 [facility] Comment on above: Performed By: #### C BCO ####[address] [address] Neutrophils 4.20 10 3/mcL Normal 2.85-6.16 [facility] Comment on above: Performed By: #### C BCO ####[address] [address] Neutrophils/100 WBC Auto (Bld) 72.2 % Normal 37.0-80.0 [facility] Comment on above: Performed By: #### C BCO ####[address] [address] Platelet mean volume (PMV) 8.4 fL Normal 7.4-10.4 [facility] Comment on above: Performed By: #### C BCO ####[address] [address] Platelets 155 10 3/mcL Normal 130-400 [facility] Comment on above: Performed By: #### C BCO ####[address] [address] WBC (Leukocytes) 5.80 10 3/mcL Normal 4.60-10.80 [facility] Comment on above: Performed By: #### C BCO ####[address] [address] Comp. Metabolic Panelon 07-0 Alanine aminotransferase (ALT) 30 U/L Normal 10-35 [facility] Comment on above: Performed By: #### C MP ####[address] [address] Aspartate aminotransferase (AST) 30 U/L Normal 10-40 [facility] Comment on above: Performed By: #### C MP ####[address] [address] Glucose mass conc 132 mg/dL High 83-110 [facility] Comment on above: Performed By: #### C MP ####[address] [address] Albumin/Globulin Ratio 1.7 {ratio} Normal 1.1-2.5 [facility] Comment on above: Performed By: #### C MP ####[address] [address] Alk. Phosphatase 58 IU/L Normal 40-135 [facility] Comment on above: Performed By: #### C MP ####[place] [id number] Bilirubin (direct) 0.3 mg/dL Normal 0.2-1.0 [facility] Comment on above: Performed By: #### C MP ####[place] [id number] Globulin 2.7 G/dL Normal [facility] Comment on above: Performed By: #### C MP ####[place] [id number] T. Protein 7.2 G/dL Normal 6.0-8.3 [facility] Comment on above: Performed By: #### C MP ####[place] [id number] BUN/Creatinine Ratio 22 mg/mg Normal 7-27 [facility] Comment on above: Performed By: #### C MP ####[place] [id number] Creatinine 1.0 mg/dL Normal 0.6-1.2 [facility] Comment on above: Performed By: #### C MP ####[place] [id number] Albumin 4.5 G/dL Normal 3.4-4.8 [facility] Comment on above: Performed By: #### C MP ####[place] [id number] Calcium 9.6 mg/dL Normal 8.4-10.2 [facility] Comment on above: Performed By: #### C MP ####[place] [id number] CO2 30 mmol/L Normal 23-31 [facility] Comment on above: Performed By: #### C MP ####[place] [id number] Electrolyte Balance 8.0 mEq/L Normal [facility] Comment on above: Performed By: #### C MP ####[address] [address] Urea nitrogen 22 mg/dL High 7-18 [facility] Comment on above: Performed By: #### C MP ####[address] [address] Chloride 103 mmol/L Normal 98-107 [facility] Comment on above: Performed By: #### C MP ####[address] [address] Potassium molar conc 4.6 mmol/L Normal 3.5-5.1 [facility] Comment on above: Performed By: #### C MP ####[address] [address] Sodium 141 mmol/L Normal 136-146 [facility] Comment on above: Performed By: #### C MP ####[address] [address] Glomerular Filtration Rate E stimateon 03-11-2017 eGFR (non-black) mL/min/{1.73_m2} Normal [facility] Comment on above: Performed By: #### G FR ####[address] [address] Result Comment: Pato hannah mean GFR = 75 mL/min/1.73 sq.m. for ages 70+ years. Chronic Kidney Disease: Less than 60 mL/min/1.73 square metersEnd Stage Renal Disease: Less than 15 mL/min/1.73 square meters Vital Signs Date Time Vital Sign Value Performing Clinician Facility 05-16-2025 09:40-0400 Body height 177 cm Ha Luque MD Work Phone: [facility] 05-16-2025 09:40-0400 Body mass index (BMI) [Ratio] 28.67 kg/m2 Ha Luque MD Work Phone: [facility] 05-16-2025 09:40-0400 Body temperature 68.79 [degF] Ha Luque MD Work Phone: [facility] 05-16-2025 09:40-0400 Body weight 89.81 kg Ha Luque MD Work Phone: [facility] 05-16-2025 09:40-0400 Diastolic blood pressure 72 mm[Hg] Ha Luque MD Work Phone: [facility] 05-16-2025 09:40-0400 Heart rate 55 /min Ha Luque MD Work Phone: [facility] 05-16-2025 09:40-0400 SaO2% (BldA) [Mass fraction] 98 % Ha Luque MD Work Phone: [facility] 05-16-2025 09:40-0400 Systolic blood pressure 134 mm[Hg] Ha Luque MD Work Phone: [facility] 04-17-2025 13:22-0400 Diastolic blood pressure 69 mm[Hg] Ha Luque MD Work Phone: [facility] 04-17-2025 13:22-0400 Systolic blood pressure 143 mm[Hg] Ha Luque MD Work Phone: [facility] 04-17-2025 12:51-0400 Body mass index (BMI) [Ratio] 27.98 kg/m2 Ha Luque MD Work Phone: [facility] 04-17-2025 12:51-0400 Body temperature 97.11 [degF] Ha Luque MD Work Phone: [facility] 04-17-2025 12:51-0400 Body weight 88.45 kg Ha Luque MD Work Phone: [facility] 04-17-2025 12:51-0400 Heart rate 63 /min Ha Luque MD Work Phone: [facility] 04-17-2025 12:51-0400 SaO2% (BldA) [Mass fraction] 98 % Ha Luque MD Work Phone: [facility] 01-04-2025 09:57-0400 Body mass index (BMI) [Ratio] 29.41 kg/m2 Ha Luque MD Work Phone: [facility] 01-04-2025 09:57-0400 Body temperature 97 [degF] Ha Luque MD Work Phone: [facility] 01-04-2025 09:57-0400 Body weight 92.99 kg Ha Luque MD Work Phone: [facility] 01-04-2025 09:57-0400 Diastolic blood pressure 70 mm[Hg] Ha Luque MD Work Phone: [facility] 01-04-2025 09:57-0400 Heart rate 56 /min Ha Luque MD Work Phone: [facility] 01-04-2025 09:57-0400 SaO2% (BldA) [Mass fraction] 97 % Ha Luque MD Work Phone: [facility] 01-04-2025 09:57-0400 Systolic blood pressure 156 mm[Hg] Ha Luque MD Work Phone: [facility] 12-14-2024 12:56-0400 Body height 177.8 cm Ha Luque MD Work Phone: [facility] 12-14-2024 12:56-0400 Body mass index (BMI) [Ratio] 30.13 kg/m2 Ha Luque MD Work Phone: [facility] 12-14-2024 12:56-0400 Body temperature 97.2 [degF] Ha Luque MD Work Phone: [facility] 12-14-2024 12:56-0400 Body weight 95.25 kg Ha Luque MD Work Phone: [facility] 12-14-2024 12:56-0400 Diastolic blood pressure 64 mm[Hg] Ha Luque MD Work Phone: [facility] 12-14-2024 12:56-0400 Heart rate 66 /min Ha Luque MD Work Phone: [facility] 12-14-2024 12:56-0400 SaO2% (BldA) [Mass fraction] 96 % Ha Luque MD Work Phone: [facility] 12-14-2024 12:56-0400 Systolic blood pressure 167 mm[Hg] Ha Luque MD Work Phone: [facility] 11-29-2024 10:59-0400 Body mass index (BMI) [Ratio] 28.45 kg/m2 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 APRN.DAYTIME CAREGIVER Work Phone: [facility] 11-29-2024 10:59-0400 Body temperature 98.1 [degF] 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 APRN.DAYTIME CAREGIVER Work Phone: [facility] 11-29-2024 10:59-0400 Body weight 92.53 kg 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 APRN.DAYTIME CAREGIVER Work Phone: [facility] 11-29-2024 10:59-0400 Diastolic blood pressure 64 mm[Hg] 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 APRN.DAYTIME CAREGIVER Work Phone: [facility] 11-29-2024 10:59-0400 Heart rate 94 /min 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 APRN.DAYTIME CAREGIVER Work Phone: [facility] 11-29-2024 10:59-0400 Respiratory rate 18 /min 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 APRN.DAYTIME CAREGIVER Work Phone: [facility] 11-29-2024 10:59-0400 SaO2% (BldA) [Mass fraction] 98 % 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 APRN.DAYTIME CAREGIVER Work Phone: [facility] 11-29-2024 10:59-0400 Systolic blood pressure 132 mm[Hg] 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 APRN.DAYTIME CAREGIVER Work Phone: [facility] 09-09-2024 12:24-0500 Body temperature 98.24 [degF] DR JAKI FLEMING DO [address] [place] [address] 09-09-2024 12:24-0500 Diastolic Blood Pressure Non-Invasive 77 mm[Hg] DR JAKI FLEMING DO [address] [place] [address] 09-09-2024 12:24-0500 Heart rate 94 /min DR JAKI FLEMING DO [address] [place] [address] 09-09-2024 12:24-0500 Respiratory rate 18 /min DR JAKI FLEMING DO [address] [place] [address] 09-09-2024 12:24-0500 Systolic Blood Pressure Non-Invasive 130 mm[Hg] DR JAKI FLEMING DO [address] [place] [address] 09-09-2024 07:15-0500 Body temperature 98.24 [degF] DR JAKI FLEMING DO [address] [place] [address] 09-09-2024 07:15-0500 Diastolic Blood Pressure Non-Invasive 78 mm[Hg] DR JAKI FLEMING DO [address] [place] [address] 09-09-2024 07:15-0500 Heart rate 90 /min DR JAKI FLEMING DO [address] [place] [address] 09-09-2024 07:15-0500 Respiratory rate 17 /min DR JAKI FLEMING DO [address] [place] [address] 09-09-2024 07:15-0500 Systolic Blood Pressure Non-Invasive 121 mm[Hg] DR JAKI FLEMING DO [address] [place] [address] 09-09-2024 03:10-0500 Body temperature 97.88 [degF] DR JAKI FLEMING DO [address] [place] [address] 09-09-2024 03:10-0500 Diastolic Blood Pressure Non-Invasive 69 mm[Hg] DR JAKI FLEMING DO [address] [place] [address] 09-09-2024 03:10-0500 Heart rate 68 /min DR JAKI FLEMING DO [address] [place] [address] 09-09-2024 03:10-0500 Reason For Taking VItal Signs DR JAKI FLEMING DO [address] [place] [address] 09-09-2024 03:10-0500 Respiratory rate 16 /min DR JAKI FLEMING DO [address] [place] [address] 09-09-2024 03:10-0500 Systolic Blood Pressure Non-Invasive 96 mm[Hg] DR JAKI FLEMING DO [address] [place] [address] 09-08-2024 23:16-0500 Reason For Taking VItal Signs DR JAKI FLEMING DO [address] [place] [address] 09-08-2024 19:55-0500 Blood Pressure Cuff Size DR JAKI FLEMING DO [address] [place] [address] 09-08-2024 19:55-[address] JAKI FLEMING DO [address] [place] [address] 09-08-2024 19:55-[address] JAKI FLEMING DO [address] [place] [address] 09-08-2024 19:52-0500 Mean blood pressure 89 mm[Hg] DR JAKI FLEMING DO [address] [place] [address] 09-08-2024 19:52-0500 Reason For Taking VItal Signs DR JAKI FLEMING DO [address] [place] [address] 09-08-2024 14:22-0500 Blood Pressure Cuff Size DR JAKI FLEMING DO [address] [place] [address] 09-08-2024 14:22-[address] JAKI FLEMING DO [address] [place] [address] 09-08-2024 14:22-[address] JAKI FLEMING DO [address] [place] [address] 09-08-2024 10:59-0500 Heart rate 80 /min DR JAKI FLEMING DO [address] [place] [address] 09-08-2024 07:45-0500 Blood Pressure Cuff Size DR JAKI FLEMING DO [address] [place] [address] 09-08-2024 07:45-[address] JAKI FLEMING DO [address] [place] [address] 09-08-2024 07:45-[address] JAKI FLEMING DO [address] [place] [address] 09-08-2024 07:45-0500 Heart rate 93 /min DR JAKI FLEMING DO [address] [place] [address] 09-08-2024 03:54-0500 Heart rate 64 /min DR JAKI FLEMING DO [address] [place] [address] 09-08-2024 03:54-0500 Mean blood pressure 59 mm[Hg] DR JAKI FLEMING DO [address] [place] [address] 09-08-2024 00:20-0500 Heart rate 75 /min DR JAKI FLEMING DO [address] [place] [address] 09-07-2024 20:22-0500 Body height 180.[address] JAKI FLEMING DO [address] [place] [address] 09-07-2024 20:22-0500 Body weight 119.[address] JAKI FLEMING DO [address] [place] [address] 09-07-2024 20:22-0500 Body weight 36.79 kg/m2 DR JAKI FLEMING DO [address] [place] [address] 09-07-2024 20:19-0500 Body height 180.[address] JAKI FLEMING DO [address] [place] [address] 09-07-2024 20:19-0500 Body weight 119.[address] JAKI FLEMING DO [address] [place] [address] 09-07-2024 20:19-0500 Body weight 36.79 kg/m2 DR JAKI FLEMING DO [address] [place] [address] 09-06-2024 23:43-0500 Body weight 119.[address] JAIK FLEMING DO [facility] 05-27-2024 10:50-0400 Diastolic Blood Pressure Non-Invasive 73 mm[Hg] DR MAJO HOLDER MD [facility] 05-27-2024 10:50-0400 Heart rate 70 /min DR MAJO HOLDER MD [facility] 05-27-2024 10:50-0400 Respiratory rate 18 /min DR MAJO HOLDER MD [facility] 05-27-2024 10:50-0400 Systolic Blood Pressure Non-Invasive 154 mm[Hg] DR MAJO HOLDER MD [facility] 05-27-2024 09:16-0400 Body temperature 97.88 [degF] DR MAJO HOLDER MD [facility] 05-27-2024 09:16-0400 Body weight 97.[address] MAJO HOLDER MD [facility] 05-27-2024 09:16-0400 Diastolic Blood Pressure Non-Invasive 70 mm[Hg] DR MAJO HOLDER MD [facility] 05-27-2024 09:16-0400 Heart rate 63 /min DR MAJO HOLDER MD [facility] 05-27-2024 09:16-0400 Respiratory rate 18 /min DR MAJO HOLDER MD [facility] 05-27-2024 09:16-0400 Systolic Blood Pressure Non-Invasive 170 mm[Hg] DR MAJO HOLDER MD [facility] 05-04-2024 12:19-0400 Diastolic Blood Pressure Non-Invasive 89 mm[Hg] YG MUHAMMAD MD [facility] 05-04-2024 12:19-0400 Heart rate 74 /min YG MUHAMMAD MD [facility] 05-04-2024 12:19-0400 Respiratory rate 16 /min YG MUHAMMAD MD [facility] 05-04-2024 12:19-0400 Systolic Blood Pressure Non-Invasive 157 mm[Hg] YG MUHAMMAD MD [facility] 05-04-2024 06:44-0400 Body temperature 96.8 [degF] YG MUHAMMAD MD [facility] 05-04-2024 06:44-0400 Body weight 95 kg YG MUHAMMAD MD [facility] 05-04-2024 06:44-0400 Diastolic Blood Pressure Non-Invasive 91 mm[Hg] YG MUHAMMAD MD [facility] 05-04-2024 06:44-0400 Heart rate 76 /min YG MUHAMMAD MD [facility] 05-04-2024 06:44-0400 Respiratory rate 16 /min YG MUHAMMAD MD [facility] 05-04-2024 06:44-0400 Systolic Blood Pressure Non-Invasive 168 mm[Hg] YG MUHAMMAD MD [facility] 02-11-2024 14:17-0400 Body temperature 97 [degF] Barrett Huff PA-C Work Phone: [facility] 02-11-2024 14:17-0400 Diastolic blood pressure 61 mm[Hg] Barrett Huff PA-C Work Phone: [facility] 02-11-2024 14:17-0400 Heart rate 67 /min Barrett Huff PA-C Work Phone: [facility] 02-11-2024 14:17-0400 Respiratory rate 16 /min Barrett Huff PA-C Work Phone: [facility] 02-11-2024 14:17-0400 SaO2% (BldA) [Mass fraction] 96 % Barrett Huff PA-C Work Phone: [facility] 02-11-2024 14:17-0400 Systolic blood pressure 119 mm[Hg] Barrett Huff PA-C Work Phone: [facility] 11-03-2023 16:25-0500 Body temperature 97.16 [degF] EZEKIEL QUIROS MD [facility] 11-03-2023 16:25-0500 Diastolic Blood Pressure Non-Invasive 63 mm[Hg] EZEKIEL QUIROS MD [facility] 11-03-2023 16:25-0500 Heart rate 56 /min EZEKIEL QUIROS MD [facility] 11-03-2023 16:25-0500 Respiratory rate 16 /min EZEKIEL QUIROS MD [facility] 11-03-2023 16:25-0500 Systolic Blood Pressure Non-Invasive 150 mm[Hg] EZEKIEL QUIROS MD [facility] 11-03-2023 15:50-0500 Body temperature 96.8 [degF] EZEKIEL QUIROS MD [facility] 11-03-2023 15:50-0500 Diastolic Blood Pressure Non-Invasive 65 mm[Hg] EZEKIEL QUIROS MD [facility] 11-03-2023 15:50-0500 Heart rate 56 /min EZEKIEL QUIROS MD [facility] 11-03-2023 15:50-0500 Mean blood pressure 88 mm[Hg] EZEKIEL QUIROS MD [facility] 11-03-2023 15:50-0500 Respiratory rate 18 /min EZEKIEL QUIROS MD [facility] 11-03-2023 15:50-0500 Systolic Blood Pressure Non-Invasive 142 mm[Hg] EZEKIEL QUIROS MD [facility] 11-03-2023 15:48-0500 Body temperature 96.8 [degF] EZEKIEL QUIROS MD [facility] 11-03-2023 15:48-0500 Diastolic Blood Pressure Non-Invasive 63 mm[Hg] EZEKIEL QUIROS MD [facility] 11-03-2023 15:48-0500 Heart rate 62 /min EZEKIEL QUIROS MD [facility] 11-03-2023 15:48-0500 Mean blood pressure 88 mm[Hg] EZEKIEL QUIROS MD [facility] 11-03-2023 15:48-0500 Respiratory rate 18 /min EZEKIEL QUIROS MD [facility] 11-03-2023 15:48-0500 Systolic Blood Pressure Non-Invasive 145 mm[Hg] EZEKIEL QUIROS MD [facility] 11-03-2023 15:35-0500 Heart rate 64 /min EZEKIEL QUIROS MD [facility] 11-03-2023 15:35-0500 Mean blood pressure 100 mm[Hg] EZEKIEL QUIROS MD [facility] 11-03-2023 14:55-0500 Respiratory Rate - Anes 17 br/min EZEKIEL QUIROS MD [facility] 11-03-2023 14:50-0500 Respiratory Rate - Anes 20 br/min EZEKIEL QUIROS MD [facility] 11-03-2023 14:45-0500 Body temperature 97.3 [degF] EZEKIEL QUIROS MD [facility] 11-03-2023 14:45-0500 Respiratory Rate - Anes 15 br/min EZEKIEL QUIROS MD [facility] 11-03-2023 14:40-0500 Body temperature 97.38 [degF] EZEKIEL QUIROS MD [facility] 11-03-2023 14:35-0500 Body temperature 97.47 [degF] EZEKIEL QUIROS MD [facility] 11-03-2023 12:06-0500 Body height 177.8 cm EZEKIEL QUIROS MD [facility] 11-03-2023 12:06-0500 Body weight 91.2 kg EZEKIEL QUIROS MD [facility] 11-03-2023 12:06-0500 Heart rate 65 /min EZEKIEL QUIROS MD [facility] 10-18-2023 13:12-0500 Body height [address] CLOVER KATZ MD [facility] 10-18-2023 07:16-0500 Blood Pressure Location EZEKIEL QUIROS MD [facility] 10-18-2023 07:16-0500 Blood Pressure Method EZEKIEL QUIROS MD [facility] 10-18-2023 07:16-0500 Body height 178 cm EZEKIEL QUIROS MD [facility] 10-18-2023 07:16-0500 Body temperature 97.7 [degF] EZEKIEL QUIROS MD [facility] 10-18-2023 07:16-0500 Body weight 95.3 kg EZEKIEL QUIROS MD [facility] 10-18-2023 07:16-0500 Diastolic Blood Pressure Non-Invasive 75 mm[Hg] EZEKIEL QUIROS MD [facility] 10-18-2023 07:16-0500 Heart rate 58 /min EZEKIEL QUIROS MD [facility] 10-18-2023 07:16-0500 Systolic Blood Pressure Non-Invasive 149 mm[Hg] EZEKIEL QUIROS MD [facility] 09-23-2023 14:40-0500 Blood Pressure Cuff Size DR TAYLOR RICARDO MD [facility] 09-23-2023 14:40-[address] TAYLOR RICARDO MD [facility] 09-23-2023 14:40-[address] TAYLOR Lubin MD [address] [place] [address] 09-23-2023 14:40-0500 Body temperature 97.88 [degF] DR TAYLOR RICARDO MD [address] [place] [address] 09-23-2023 14:40-0500 Diastolic Blood Pressure Non-Invasive 70 mm[Hg] DR TAYLOR RICARDO MD [address] [place] [address] 09-23-2023 14:40-0500 Heart rate 66 /min DR TAYLOR RICARDO MD [address] [place] [address] 09-23-2023 14:40-0500 Reason For Taking VItal Signs DR TAYLOR RICARDO MD [address] 09-23-2023 14:40-0500 Respiratory rate 17 /min DR TAYLOR RICARDO MD [address] [place] [address] 09-23-2023 14:40-0500 Systolic Blood Pressure Non-Invasive 142 mm[Hg] DR TAYLOR RICARDO MD 56 [place] [address] 09-23-2023 06:54-[address] TAYLOR RICARDO MD [address] [place] [address] 09-23-2023 06:54-[address] TAYLOR Lubin MD [address] [place] [address] 09-23-2023 06:54-0500 Body temperature 97.7 [degF] DR TAYLOR RICARDO MD [address] [place] [address] 09-23-2023 06:54-0500 Diastolic Blood Pressure Non-Invasive 69 mm[Hg] DR TAYLOR RICARDO MD [address] [place] [address] 09-23-2023 06:54-0500 Heart rate 78 /min DR TAYLOR RICARDO MD [address] [place] [address] 09-23-2023 06:54-0500 Reason For Taking VItal Signs DR TAYLOR RICARDO MD [address] [place] [address] 09-23-2023 06:54-0500 Respiratory rate 18 /min DR TAYLOR RICARDO MD [address] [place] [address] 09-23-2023 06:54-0500 Systolic Blood Pressure Non-Invasive 144 mm[Hg] DR TAYLOR RICARDO MD [address] [place] [address] 09-22-2023 23:00-0500 Body temperature 98.06 [degF] DR TAYLOR RICARDO MD [address] 09-22-2023 23:00-0500 Diastolic Blood Pressure Non-Invasive 66 mm[Hg] DR TAYLOR RICARDO MD [address] 09-22-2023 23:00-0500 Heart rate 63 /min DR TAYLOR RICARDO MD [address] [place] [address] 09-22-2023 23:00-0500 Respiratory rate 16 /min DR TAYLOR RICARDO MD [address] 09-22-2023 23:00-0500 Systolic Blood Pressure Non-Invasive 124 mm[Hg] DR TAYLOR RICARDO MD [address] 09-22-2023 15:35-0500 Reason For Taking VItal Signs DR TAYLOR RICARDO MD [address] [place] [address] 09-22-2023 11:17-0500 Signs/Symptoms Transfusion Reaction DR TAYLOR RICARDO MD [address] [place] [address] 09-22-2023 10:17-0500 Diastolic blood pressure 51 mm[Hg] DR TAYLOR RICARDO MD [address] [place] [address] 09-22-2023 10:17-0500 Signs/Symptoms Transfusion Reaction DR TAYLOR RICARDO MD [address] [place] [address] 09-22-2023 10:17-0500 Systolic blood pressure 92 mm[Hg] DR TAYLOR RICARDO MD [address] [place] [address] 09-22-2023 10:15-0500 Signs/Symptoms Transfusion Reaction No DR TAYLOR RICARDO MD [address] [place] [address] 09-22-2023 08:20-0500 Diastolic blood pressure 58 mm[Hg] DR TAYLOR RICARDO MD [address] [place] [address] 09-22-2023 08:20-0500 Systolic blood pressure 119 mm[Hg] DR TAYLOR RICARDO MD [address] [place] [address] 09-21-2023 19:37-[address] TAYLOR RICARDO MD [address] [place] [address] 09-21-2023 19:37-[address] TAYLOR Lubin MD [address] [place] [address] 09-21-2023 11:41-0500 Heart rate 77 /min DR TAYLOR RICARDO MD [address] [place] [address] 09-21-2023 11:26-0500 Heart rate 69 /min DR TAYLOR RICARDO MD [address] 09-21-2023 11:26-0500 Mean blood pressure 70 mm[Hg] DR TAYLOR RICARDO MD [address] [place] [address] 09-21-2023 11:11-0500 Heart rate 83 /min DR TAYLOR RICARDO MD [address] [place] [address] 09-21-2023 11:11-0500 Mean blood pressure 77 mm[Hg] DR TAYLOR RICARDO MD [address] [place] [address] 09-21-2023 10:56-0500 Body temperature 97.34 [degF] DR TAYLOR RICARDO MD [address] [place] [address] 09-21-2023 10:56-0500 Mean blood pressure 69 mm[Hg] DR TAYLOR RICARDO MD [address] [place] [address] 09-21-2023 10:50-0500 Respiratory Rate - Anes 11 br/min DR TAYLOR RICARDO MD [address] [place] [address] 09-21-2023 10:45-0500 Body temperature 95.38 [degF] DR TAYLOR RICARDO MD [address] [place] [address] 09-21-2023 10:45-0500 Respiratory Rate - Anes 24 br/min DR TAYLOR RICARDO MD [address] [place] [address] 09-21-2023 10:40-0500 Body temperature 99.1 [degF] DR TAYLOR RICARDO MD [address] 09-21-2023 10:40-0500 Respiratory Rate - Anes 23 br/min DR TAYLOR RICARDO MD [address] [place] [address] 09-21-2023 10:35-0500 Body temperature 99.21 [degF] DR TAYLOR RICARDO MD [address] [place] [address] 09-20-2023 23:28-0500 Body height 180.[address] TAYLOR RICARDO MD [address] [place] [address] 09-20-2023 23:28-0500 Body weight 90.[address] TAYLOR RICARDO MD [address] [place] [address] 09-20-2023 23:28-0500 Body weight 27.84 kg/m2 DR TAYLOR RICARDO MD [facility] 09-20-2023 22:14-0500 Diastolic Blood Pressure Non-Invasive 69 mm[Hg] RUBY KHALIL DO [facility] 09-20-2023 22:14-0500 Heart rate 88 /min RUBY KHALIL DO [facility] 09-20-2023 22:14-0500 Respiratory rate 20 /min RUBY FROMMELT DO [facility] 09-20-2023 22:14-0500 Systolic Blood Pressure Non-Invasive 133 mm[Hg] RUBY FROMMELT DO [facility] 09-20-2023 20:53-0500 Diastolic blood pressure 69 mm[Hg] RUBY FROMMELT DO [facility] 09-20-2023 20:53-0500 Heart rate 88 /min RUBY FROMMELT DO [facility] 09-20-2023 20:53-0500 Respiratory rate 20 /min RUBY FROMMELT DO [facility] 09-20-2023 20:53-0500 Systolic blood pressure 133 mm[Hg] RUBY FROMMELT DO [facility] 09-20-2023 17:06-0500 Body temperature 99.86 [degF] RUBY FROMMELT DO [facility] 09-20-2023 17:06-0500 Diastolic Blood Pressure Non-Invasive 79 mm[Hg] RUBY FROMMELT DO [facility] 09-20-2023 17:06-0500 Heart rate 97 /min RUBY FROMMELT DO [facility] 09-20-2023 17:06-0500 Respiratory rate 20 /min URBY FROMMELT DO [facility] 09-20-2023 17:06-0500 Systolic Blood Pressure Non-Invasive 136 mm[Hg] RUBY FROMMELT DO [facility] 09-20-2023 15:23-0500 Body height 180 cm RUBY FROMMELT DO [facility] 09-20-2023 15:23-0500 Body temperature 99.32 [degF] RUBY FROMMELT DO [facility] 09-20-2023 15:23-0500 Body weight 95.5 kg RUBY FROMMELT DO [facility] 09-20-2023 15:23-0500 Diastolic Blood Pressure Non-Invasive 88 mm[Hg] RUBY FROMMELT DO [facility] 09-20-2023 15:23-0500 Systolic Blood Pressure Non-Invasive 182 mm[Hg] RUBY FROMMELT DO [facility] 09-20-2023 07:53-0500 Body height 180.3 cm RUBY FROMMELT DO [facility] 09-20-2023 07:53-0500 Body temperature 97.7 [degF] RUBY FROMMELT DO [facility] 09-20-2023 07:53-0500 Body weight 95.5 kg RUBY FROMMELT DO [facility] 09-20-2023 07:53-0500 Diastolic Blood Pressure Non-Invasive 68 mm[Hg] RUBY FROMMELT DO [facility] 09-20-2023 07:53-0500 Heart rate 82 /min RUBY FROMMELT DO [facility] 09-20-2023 07:53-0500 Respiratory rate 18 /min RUBY FROMMELT DO [facility] 09-20-2023 07:53-0500 Systolic Blood Pressure Non-Invasive 113 mm[Hg] RUBY FROMMELT DO [facility] 09-06-2023 15:22-0500 Diastolic Blood Pressure Non-Invasive 76 mm[Hg] LASHAE MOULTON MD [facility] 09-06-2023 15:22-0500 Heart rate 65 /min LASHAE MUOLTON MD [facility] 09-06-2023 15:22-0500 Reason For Taking VItal Signs LASHAE MOULTON MD [facility] 09-06-2023 15:22-0500 Respiratory rate 18 /min LASHAE MOULTON MD [facility] 09-06-2023 15:22-0500 Systolic Blood Pressure Non-Invasive 151 mm[Hg] LASHAE MOULTON MD [facility] 09-06-2023 11:54-0500 Body weight 95.4 kg LASHAE MOULTON MD [facility] 09-06-2023 11:54-0500 Diastolic Blood Pressure Non-Invasive 68 mm[Hg] LASHAE MOULTON MD [facility] 09-06-2023 11:54-0500 Heart rate 68 /min LASHAE MOULTON MD [facility] 09-06-2023 11:54-0500 Respiratory rate 18 /min LASHAE MOULTON MD [facility] 09-06-2023 11:54-0500 Systolic Blood Pressure Non-Invasive 170 mm[Hg] LASHAE MOULTON MD [facility] 08-28-2023 14:25-0500 Diastolic Blood Pressure Non-Invasive 99 mm[Hg] DR MAJO HOLDER MD [facility] 08-28-2023 14:25-0500 Heart rate 74 /min DR MAJO HOLDER MD [facility] 08-28-2023 14:25-0500 Respiratory rate 20 /min DR MAJO HOLDER MD [facility] 08-28-2023 14:25-0500 Systolic Blood Pressure Non-Invasive 124 mm[Hg] DR MAJO HOLDER MD [facility] 06-20-2023 08:33-0400 Body weight 97.[address] CLOVER KATZ MD [facility] 05-31-2023 23:17-0400 Body temperature 97.16 [degF] LAYNE JARQUIN MD [facility] 05-31-2023 23:17-0400 Body weight 91.6 kg LAYNE JARQUIN MD [facility] 05-31-2023 23:17-0400 Diastolic Blood Pressure Non-Invasive 70 1 LAYNE JARQUIN MD [facility] 05-31-2023 23:17-0400 Heart rate 83 /min LAYNE JARQUIN MD [facility] 05-31-2023 23:17-0400 Respiratory rate 16 /min LAYNE JARQUIN MD [facility] 05-31-2023 23:17-0400 Systolic Blood Pressure Non-Invasive 138 1 LAYNE JARQUIN MD [facility] 05-03-2023 17:06-0400 Body temperature 97.88 [degF] EMMANUEL HOLDER MD [facility] 05-03-2023 17:06-0400 Body weight 95.2 kg EMMANUEL HOLDER MD [facility] 05-03-2023 17:06-0400 Diastolic Blood Pressure Non-Invasive 71 1 EMMANUEL HOLDER MD [facility] 05-03-2023 17:06-0400 Heart rate 68 /min EMMANUEL HOLDER MD [facility] 05-03-2023 17:06-0400 Respiratory rate 18 /min EMMANUEL HOLDER MD [facility] 05-03-2023 17:06-0400 Systolic Blood Pressure Non-Invasive 154 1 EMMANUEL HOLDER MD [facility] 04-29-2023 12:48-0400 Diastolic Blood Pressure Non-Invasive [address] CLOVER KATZ MD [facility] 04-29-2023 12:48-0400 Heart rate 52 /min DR CLOVER KATZ MD [facility] 04-29-2023 12:48-0400 Systolic Blood Pressure Non-Invasive [address] CLOVER KATZ MD [facility] 04-29-2023 12:38-0400 Body height 180.[address] CLOVER KATZ MD [facility] 04-29-2023 12:36-0400 Body temperature 97.7 [degF] DR CLOVER KATZ MD [facility] 04-29-2023 12:36-0400 Diastolic Blood Pressure Non-Invasive [address] CLOVER KATZ MD [facility] 04-29-2023 12:36-0400 Heart rate 74 /min DR CLOVER KATZ MD [facility] 04-29-2023 12:36-0400 Respiratory rate 18 /min DR CLOVER KATZ MD [facility] 04-29-2023 12:36-0400 Systolic Blood Pressure Non-Invasive [address] CLOVER KATZ MD [facility] 02-21-2023 00:29-0400 Diastolic Blood Pressure Non-Invasive 88 1 SILVIA HOWELL MD [facility] 02-21-2023 00:29-0400 Heart rate 63 /min SILVIA HOWELL MD [facility] 02-21-2023 00:29-0400 Respiratory rate 16 /min SILVIA HOWELL MD [facility] 02-21-2023 00:29-0400 Systolic Blood Pressure Non-Invasive 135 1 SILVIA HOWELL MD [facility] 02-20-2023 22:00-0400 Diastolic Blood Pressure Non-Invasive 86 1 SILVIA HOWELL MD [facility] 02-20-2023 22:00-0400 Heart rate 75 /min SILVIA HOWELL MD [facility] 02-20-2023 22:00-0400 Systolic Blood Pressure Non-Invasive 146 1 SILVIA HOWELL MD [facility] 02-20-2023 19:50-0400 Diastolic Blood Pressure Non-Invasive 76 1 SIVLIA HOWELL MD [facility] 02-20-2023 19:50-0400 Heart rate 69 /min SILVIA HOWELL MD [facility] 02-20-2023 19:50-0400 Respiratory rate 16 /min SILVIA HOWELL MD [facility] 02-20-2023 19:50-0400 Systolic Blood Pressure Non-Invasive 141 1 SILVIA HOWELL MD [facility] 02-20-2023 17:06-0400 Blood Pressure Location SILVIA HOWELL MD [facility] 02-20-2023 17:06-0400 Body temperature 98.06 [degF] SILVIA HOWELL MD [facility] 02-20-2023 17:06-0400 Body weight 94.1 kg SILVIA HOWELL MD [facility] 02-01-2023 12:46-0400 Body temperature 97.7 [degF] EZEKIEL BURRIS MD [facility] 02-01-2023 12:46-0400 Diastolic Blood Pressure Non-Invasive 73 1 EZEKIEL BURRIS MD [facility] 02-01-2023 12:46-0400 Heart rate 60 /min EZEKIEL BURRIS MD [facility] 02-01-2023 12:46-0400 Respiratory rate 18 /min EZEKIEL BURRIS MD [facility] 02-01-2023 12:46-0400 Systolic Blood Pressure Non-Invasive 156 1 EZEKIEL BURRIS MD [facility] 02-01-2023 12:16-0400 Body temperature 97.52 [degF] EZEKIEL BURRIS MD [facility] 02-01-2023 12:16-0400 Diastolic Blood Pressure Non-Invasive 77 1 EZEKIEL BURRIS MD [facility] 02-01-2023 12:16-0400 Heart rate 68 /min EZEKIEL BURRIS MD [facility] 02-01-2023 12:16-0400 Respiratory rate 16 /min EZEKIEL BURRIS MD [facility] 02-01-2023 12:16-0400 Systolic Blood Pressure Non-Invasive 144 1 EZEKIEL BRURIS MD [facility] 02-01-2023 11:51-0400 Body temperature 97.88 [degF] EZEKIEL BURRIS MD [facility] 02-01-2023 11:51-0400 Diastolic Blood Pressure Non-Invasive 84 1 EZEKIEL BURRIS MD [facility] 02-01-2023 11:51-0400 Heart rate 57 /min EZEKIEL BURRIS MD [facility] 02-01-2023 11:51-0400 Mean blood pressure 103 mm[Hg] EZEKIEL BURRIS MD [facility] 02-01-2023 11:51-0400 Respiratory rate 20 /min EZEKIEL BURRIS MD [facility] 02-01-2023 11:51-0400 Systolic Blood Pressure Non-Invasive 152 1 EZEKIEL BURRIS MD [facility] 02-01-2023 11:35-0400 Heart rate 62 /min EZEKIEL BURRIS MD [facility] 02-01-2023 11:35-0400 Mean blood pressure 89 mm[Hg] EZEKIEL BURRIS MD [facility] 02-01-2023 11:27-0400 Body temperature 97.7 [degF] EZEKIEL BURRIS MD [facility] 02-01-2023 11:27-0400 Heart rate 60 /min EZEKIEL BURRIS MD [facility] 02-01-2023 11:27-0400 Mean blood pressure 84 mm[Hg] EZEKIEL BURRIS MD [facility] 02-01-2023 11:25-0400 Respiratory Rate - Anes 2 br/min EZEKIEL BURRIS MD [facility] 02-01-2023 11:20-0400 Body temperature 94.93 [degF] EZEKIEL BURRIS MD [facility] 02-01-2023 11:20-0400 Respiratory Rate - Anes 24 br/min EZEKIEL BURRIS MD [facility] 02-01-2023 11:15-0400 Body temperature 94.51 [degF] EZEKIEL BURRIS MD [facility] 02-01-2023 11:15-0400 Respiratory Rate - Anes 13 br/min EZEKIEL BURRIS MD [facility] 02-01-2023 11:10-0400 Body temperature 91.99 [degF] EZEKIEL BURRIS MD [facility] 02-01-2023 09:33-0400 Body height 177.8 cm EZEKIEL BURRIS MD [facility] 02-01-2023 09:33-0400 Body weight 96.2 kg EZEKIEL BURRIS MD [facility] 02-01-2023 09:33-0400 Heart rate 62 /min EZEKIEL BURRIS MD [facility] Encounters Encounter Date Encounter Type Care Provider Facility Start: 07-09-2025 End: 07-09-[address] JAKI FLEMING DO Facility:[facility] Start: 07-09-2025 End: 07-09-2025 Patient encounter procedure ISHAAN EVELIACuate HEARN LOGGING OPERATIONS INSPECTOR-DAYTIME CAREGIVER [facility] Start: 06-27-2025 End: 06-27-2025 ambulatory JAKI FLEMING Facility:[facility] Start: 05-16-2025 End: 05-16-2025 Patient encounter procedure Ha Luque MD Work Phone: Hematology/Oncology Start: 05-16-2025 End: 05-16-2025 ambulatory Ha Luque MD Work Phone: Hematology/Oncology Comment on above: Anemia, unspecified type (Primary Dx); Stage 3a chronic kidney disease (HCC) Anemia, unspecified type (Primary Dx) Start: 05-01-2025 End: 05-01-[address] Jaki Fleming DO Work Phone: -[facility] Start: 05-01-2025 End: 05-01-[address] Isabella Justice MD -Laboratory [facility] Start: 05-01-2025 End: 05-01-2025 ambulatory Jaki Fleming Facility:[facility] Start: 04-17-2025 End: 04-17-2025 Patient encounter procedure Ha Luque MD Work Phone: Hematology/Oncology Start: 04-17-2025 End: 04-17-2025 ambulatory Ha Luque MD Work Phone: Hematology/Oncology Comment on above: Anemia, unspecified type (Primary Dx); Stage 3a chronic kidney disease (HCC) Start: 03-06-2025 End: 03-06-2025 Telephone encounter Heather Awan RN Work Phone: Hematology/Oncology Comment on above: Patient Update (Refe rral from PCP) Start: 03-06-2025 End: 03-06-[address] JAKI FLEMING DO Facility:[facility] Start: 03-06-2025 End: 03-06-[address] JAKI FLEMING DO [facility] Start: 02-20-2025 End: 02-20-[address] JAKI FLEMING DO Facility:[facility] Start: 02-20-2025 End: 02-20-2025 Patient encounter procedure KAYLIE MEJÍA APRN-[facility] Start: 02-05-2025 End: 02-05-[address] Jaki Fleming DO Work Phone: [facility] Work Phone: Start: 02-05-2025 End: 02-05-[address] Isabella Justice MD -Laboratory [facility] Start: 02-05-2025 End: 02-05-2025 ambulatory Jaki Fleming Facility:[facility] Start: 01-14-2025 End: 01-14-[address] JAKI FLEMING DO Facility:[facility] Start: 01-14-2025 End: 01-14-2025 Patient encounter procedure EZEKIEL BURRIS MD [facility] Start: 01-04-2025 End: 01-04-2025 Patient encounter procedure Ha Luque MD Work Phone: Hematology/Oncology Start: 01-04-2025 End: 01-04-2025 ambulatory Ha Luque MD Work Phone: Hematology/Oncology Comment on above: Anemia, unspecified type (Primary Dx) Start: 12-14-2024 End: 12-14-2024 ambulatory Ha Luque MD Work Phone: Hematology/Oncology Comment on above: Anemia, unspecified type (Primary Dx); Other pancytopenia (HCC) Start: 12-14-2024 End: 12-14-2024 Patient encounter procedure Ha Luque MD Work Phone: Hematology/Oncology Start: 11-29-2024 End: 11-29-2024 Subsequent hospital visit by physician Xr Jayy Quiroga Work Phone: [facility] Comment on above: Injury of left upper arm, initial encounter [S49.92XA] Start: 11-29-2024 End: 11-29-2024 ambulatory FABIOLA CROSS Facility:[id number] Start: 11-29-2024 End: 11-29-2024 Office outpatient visit 15 minutes 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 LOGGING OPERATIONS INSPECTOR.DAYTIME CAREGIVER Work Phone: [facility] Comment on above: Injury of left upper arm, initial encounter (Primary Dx); Biceps tendonitis on left Start: 11-28-2024 End: 12-03-2024 Telephone encounter Ha Luque MD Work Phone: Hematology/Oncology Comment on above: New Patient Start: 11-21-2024 End: 11-21-[address] JAKI FLEMING DO Facility:[facility] Start: 11-20-[address] JAKI FLEMING DO Faci lity:[facility] Start: 11-06-2024 End: 11-06-[address] ISABELLA JUSTICE MD Facility:[facility] Start: 11-06-2024 End: 11-06-[address] ISABELLA JUSTICE MD [facility] Start: 10-23-2024 End: 10-23-[address] JAKI FLEMING DO Facility:[facility] Start: 10-23-2024 End: 10-23-[address] JAKI FLEMING DO [facility] Start: 10-17-2024 End: 10-17-2024 ambulatory CHARMAINE LO LOGGING OPERATIONS INSPECTOR-DAYTIME CAREGIVER Facility:[facility] Start: 10-17-2024 End: 10-17-2024 Patient encounter procedure CHARMAINE LO STANLEY-DAYTIME CAREGIVER [facility] Start: 10-03-2024 End: 10-03-2024 ambulatory AMISH MAYER MD Facility:[facility] Start: 10-03-2024 End: 10-03-2024 Patient encounter procedure AMISH MAYER MD [facility] Start: 09-17-2024 End: 09-17-[address] JAKI FLEMING DO Facility:[facility] Start: 09-17-2024 End: 09-17-[address] JAKI FLEMING DO [facility] Start: 09-06-2024 End: 09-09-2024 Evaluation and management of inpatient DR JAKI FLEMING DO [facility] Start: 08-21-2024 End: 08-21-2024 ambulatory Jaki Fleming Facility:[facility] Start: 08-17-2024 End: 08-17-[address] JAKI FLEMING DO Facility:[facility] Start: 08-17-2024 End: 08-17-[address] JAKI FLEMING DO [facility] Start: 08-09-2024 ambulatory Jaki Fleming Facility:[facility] Start: 08-01-2024 End: 08-01-[address] ISABELLA JUSTICE MD Facility:[facility] Start: 08-01-2024 End: 08-01-[address] ISABELLA JUSTICE MD [facility] Start: 07-24-2024 ambulatory Jaki Fleming Facility:[facility] Start: 07-24-2024 End: 07-24-2024 ambulatory Jaki Fleming Facility:[facility] Start: 07-20-2024 End: 07-20-2024 ambulatory EZEKIEL BURRIS MD Facility:[facility] Start: 07-20-2024 End: 07-20-2024 Patient encounter procedure EZEKIEL BURRIS MD [facility] Start: 07-11-2024 End: 07-11-2024 Patient encounter procedure KAYLIE MEJÍA LOGGING OPERATIONS INSPECTOR-DAYTIME CAREGIVER [facility] Start: 05-27-2024 End: 05-27-2024 Emergency department patient visit DR MAJO HOLDER MD [facility] Start: 05-11-2024 End: 05-11-[address] ISABELLA JUSTICE MD [facility] Start: 05-04-2024 End: 05-04-2024 Emergency department patient visit YG MUHAMMAD MD [facility] Start: 04-19-2024 End: 04-23-2024 ambulatory KAYLIE MEJÍA Facility:[facility] Start: 04-19-2024 End: 04-19-2024 ambulatory KAYLIE MEJÍA Facility:[facility] Start: 04-12-[address] CLOVER KATZ MD Facilit y:A Start: 03-14-2024 End: 03-14-[address] JAKI FLEMING DO Facility:[facility] Start: 03-14-2024 End: 03-14-[address] JAKI FLEMING DO [facility] Start: 03-01-2024 End: 03-05-[address] JAKI FLEMING DO [facility] Start: 03-01-2024 End: 03-05-[address] JAKI FLEMING DO Facility:[facility] Start: 03-01-2024 End: 03-01-2024 Patient encounter procedure CHARMAINE LO LOGGING OPERATIONS INSPECTOR-DAYTIME CAREGIVER [facility] Start: 02-24-2024 End: 02-24-[address] JAKI FLEMING DO Facility:[facility] Start: 02-24-2024 End: 02-24-[address] JAKI FLEMING DO [facility] Start: 02-15-2024 End: 02-15-[address] JAKI FLEMING DO Facility:[facility] Start: 02-15-2024 End: 02-15-[address] JAKI FLEMING DO [facility] Start: 02-13-2024 End: 02-13-[address] ISABELLA JUSTICE MD Facility:[facility] Start: 02-13-2024 End: 02-13-[address] ISABELLA JUSTICE MD [facility] Start: 02-11-2024 End: 02-11-2024 ambulatory BARRETT HUFF Facility:[id number] Start: 02-11-2024 End: 02-11-2024 Patient encounter procedure Barrett DANIELSC Work Phone: [facility] Comment on above: Multiple open wounds (Primary Dx); Cellulitis of left buttock Start: 11-23-2023 End: 11-23-2023 ambulatory EZEKIEL BURRIS Facility:[facility] Start: 11-23-2023 End: 11-23-2023 Patient encounter procedure EZEKIEL BURRIS MD [facility] Start: 11-21-2023 End: 11-21-2023 ambulatory CHARMAINE LO LOGGING OPERATIONS INSPECTOR-DAYTIME CAREGIVER Facility:[facility] Start: 11-21-2023 End: 11-21-2023 Patient encounter procedure CHARMAINE LO LOGGING OPERATIONS INSPECTOR-DAYTIME CAREGIVER [facility] Start: 11-18-2023 ambulatory CHARMAINE LO LOGGING OPERATIONS INSPECTOR-DAYTIME CAREGIVER F acility:[facility] Start: 11-17-2023 End: 11-17-2023 ambulatory KYAW LUCIANO LOGGING OPERATIONS INSPECTOR-DAYTIME CAREGIVER Facility:[facility] Start: 11-17-2023 End: 11-17-2023 Patient encounter procedure KYAW LUCIANO LOGGING OPERATIONS INSPECTOR-DAYTIME CAREGIVER [facility] Start: 11-04-2023 End: 11-04-2023 Patient encounter procedure KYAW LUCIANO LOGGING OPERATIONS INSPECTOR-DAYTIME CAREGIVER [facility] Start: 11-03-2023 End: 11-04-2023 ambulatory KYAW LUCIANO LOGGING OPERATIONS INSPECTOR-DAYTIME CAREGIVER Facility:[facility] Start: 11-03-2023 End: 11-03-2023 SAME DAY STAY EZEKIEL QUIROS MD [facility] Start: 10-24-2023 End: 10-24-2023 ambulatory FRANNIE SMITH LOGGING OPERATIONS INSPECTOR-DAYTIME CAREGIVER Facility:[facility] Start: 10-24-2023 End: 10-24-2023 Patient encounter procedure FRANNIE SMITH LOGGING OPERATIONS INSPECTOR-DAYTIME CAREGIVER [facility] Start: 10-18-2023 End: 10-18-[address] CLOVER KATZ MD Facility:A Start: 10-18-2023 End: 10-18-[address] CLOVER KATZ MD [facility] Start: 10-18-2023 End: 10-18-2023 Admission to establishment EZEKIEL QUIROS MD [facility] Start: 10-18-2023 End: 10-18-2023 ambulatory EZEKIEL QUIROS MD Facility:A Start: 10-11-2023 End: 10-11-[address] CLOVER KATZ MD Facility:B Start: 10-11-2023 End: 10-11-[address] CLOVER KATZ MD [facility] Start: 09-28-2023 End: 10-02-2023 ambulatory KAYLIE MEJÍA Facility:A Start: 09-28-2023 End: 09-28-2023 Patient encounter procedure KAYLIE MEJÍA LOGGING OPERATIONS INSPECTOR-DAYTIME CAREGIVER [facility] Start: 09-27-2023 End: 10-01-[address] JAKI FLEMING DO Facility:A Start: 09-20-2023 End: 09-23-2023 Evaluation and management of inpatient DR TAYLOR RICARDO MD [facility] Start: 09-20-2023 End: 09-20-2023 Emergency department patient visit RUBY KHALIL DO [facility] Start: 09-20-2023 End: 09-20-2023 Emergency department patient visit RUBY KHALIL DO [facility] Start: 09-15-2023 ambulatory CHARMAINE WALLY LOGGING OPERATIONS INSPECTOR-DAYTIME CAREGIVER F acility:B Start: 09-06-2023 End: 09-06-2023 Emergency department patient visit LASHAE MOULTON MD [facility] Start: 09-02-2023 End: 09-02-[address] ISABELLA JUSTICE MD Facility:B Start: 09-02-2023 End: 09-02-[address] ISABELLA JUSTICE MD [facility] Start: 08-28-2023 End: 08-28-2023 Emergency department patient visit DR MAJO HOLDER MD [facility] Start: 08-24-2023 End: 08-24-2023 ambulatory TIFFANY MAON LOGGING OPERATIONS INSPECTOR-DAYTIME CAREGIVER Facility:B Start: 08-24-2023 End: 08-24-2023 Patient encounter procedure TIFFANY MAON LOGGING OPERATIONS INSPECTOR-DAYTIME CAREGIVER [facility] Start: 07-08-2023 End: 07-08-2023 ambulatory EZEKIEL BURRIS Facility:A Start: 07-08-2023 End: 07-08-2023 Patient encounter procedure EZEKIEL BURRIS MD [facility] Start: 06-28-2023 End: 06-28-[address] CLOVER KATZ MD Facility:A Start: 06-20-2023 End: 06-20-[address] CLOVER KATZ MD Facility:A Start: 06-20-2023 End: 06-20-[address] CLOVER KATZ MD [facility] Start: 05-31-2023 End: 06-01-2023 Emergency department patient visit LAYNE JARQUIN MD [facility] Start: 05-23-2023 End: 05-23-[address] JAKI FLEMING DO Facility:B Start: 05-23-2023 End: 05-23-[address] JAKI FLEMING DO [facility] Start: 05-03-2023 End: 05-03-2023 Emergency department patient visit EMMANUEL HOLDER MD [facility] Start: 04-29-2023 End: 04-29-[address] CLOVER KATZ MD Facility:A Start: 04-29-2023 End: 04-29-[address] CLOVER KATZ MD [facility] Start: 03-24-2023 End: 03-24-2023 Patient encounter procedure EZEKIEL BURRIS MD [facility] Start: 03-16-2023 End: 03-16-2023 Patient encounter procedure ANURADHA CHRISTINE LOGGING OPERATIONS INSPECTOR-DAYTIME CAREGIVER [facility] Start: 03-15-2023 End: 03-16-[address] ISABELLA JUSTICE MD [facility] Start: 03-02-2023 End: 03-02-2023 Patient encounter procedure ANURADHA CHRISTINE LOGGING OPERATIONS INSPECTOR-DAYTIME CAREGIVER [facility] Start: 03-02-2023 End: 03-02-2023 Patient encounter procedure ANURADHA CHRISTINE LOGGING OPERATIONS INSPECTOR-DAYTIME CAREGIVER [facility] Start: 02-20-2023 End: 02-21-2023 Emergency department patient visit SILVIA HOWELL MD [facility] Start: 02-14-2023 End: 02-14-2023 Patient encounter procedure EZEKIEL BURRIS MD [facility] Start: 02-01-2023 End: 02-01-2023 SAME DAY STAY EZEKIEL BURRIS MD [facility] Start: 01-03-2023 End: 01-03-[address] JAKI FLEMING DO [facility] Start: 12-17-2022 End: 12-17-[address] ISABELLA JUSTICE MD [facility] Start: 08-31-2022 End: 08-31-2022 Patient encounter procedure CHARMAINE LO LOGGING OPERATIONS INSPECTOR-DAYTIME CAREGIVER [facility] Start: 08-16-2022 End: 08-16-[address] JAKI FLEMING DO [facility] Start: 06-02-2022 End: 06-02-[address] ISABELLA JUSTICE MD [facility] Start: 04-28-2022 End: 04-28-[address] JAKI FLEMING DO [facility] Start: 04-02-2022 End: 04-02-[address] JAKI FLEMING DO [facility] Start: 03-09-2022 End: 03-09-[address] ISABELLA JUSTICE MD [facility] Start: 02-26-2022 End: 02-26-2022 Patient encounter procedure HOLLI RITTER PA-C [facility] Start: 02-16-2022 End: 02-16-[address] MAXIMUS CORONEL MD [facility] Start: 12-08-2021 End: 12-08-[address] ISABELLA JUSTICE MD [facility] Start: 11-05-2021 End: 11-05-[address] JAKI FLEMING DO [facility] Start: 10-20-2021 End: 10-20-[address] MARIYA ALVAREZ MD [facility] Start: 09-11-2021 End: 09-11-[address] MARIYA ALVAREZ MD [facility] Start: 06-23-2021 End: 06-23-[address] ISABELLA JUSTICE MD [facility] Start: 06-03-2020 End: 06-03-2020 Patient encounter procedure External Provider [facility] Start: 06-03-2020 Results Only External Provider [facility]ter [facility] Start: 09-15-2017 Ambulatory Allen Lenin Facility :[facility] Start: 03-11-2017 End: 03-12-2017 Ambulatory PHY WO ID REFERRING Facility:[facility] Procedures Date Procedure Procedure Detail Performing Clinician Start: 11-29-2024 Radex humerus minimum 2 views Fabiola barcenas LOGGING OPERATIONS INSPECTOR.DAYTIME CAREGIVER Work Phone: Start: 09-21-[address] CLOVER KATZ MD Comment on above: WITH LEFT URETERAL STENT INSERTION, LEFT URETERSOSCOPY Start: 02-01-2023 MRI-US fusion guided transperineal biopsy of prostate ANURADHA CHRISTINE LOGGING OPERATIONS INSPECTOR-DAYTIME CAREGIVER Start: 06-03-2020 End: 06-03-2020 EXTERNAL CARDIOLOGY External Provider Start: 09-17-2012 Coronary artery bypass graft operation planned DR JAKI FLEMING DO Start: 09-05-2012 Heart valve replacement - graft EZEKIEL BURRIS MD Start: 06-19-2012 History of coronary artery bypass grafting S/P CABG (coronary artery bypass graft) Barrett Huff PA-C Work Phone: Cataract extraction and insertion of intraocular lens DR CLOVER KATZ MD Comment on above: BILATERAL Colonoscopy EZEKIEL BURRIS MD Decompression of median nerve DR JAKI FLEMING DO Decompression of median nerve EZEKIEL BURRIS MD Comment on above: right Dupuytren's contracture (disorder) EZEKIEL BURRIS MD Comment on above: right Esophageal hiatus hernia repair DR JAKI FLEMING DO Esophagogastroduodenoscopy J ALINE BURRIS MD Heart valve replacement - graft DR MAXIMUS CORONEL MD Kidney stone (disorder) DR Kaycee KATZ MD Plan of Treatment Date Care Activity Detail Author Start: 07-20-2028 Urine microalbumin profile DTaP,Tdap,Td Vaccine (2 - Td or Tdap) [facility] Start: 06-27-2025 End: 06-27-2025 ambulatory [facility] Comment on above: CBC 1MO OV/LAB EARLY*THI S DATE PER PATIENT Start: 05-16-2025 End: 05-16-2025 ambulatory [facility] Comment on above: (SO)CBC/CMP* 3MO OV/LAB EARLY* QMO ARANESP* Start: 05-06-2025 Influenza vaccination Influenza Vacc ine (#1) [facility] Start: 04-12-2025 End: 04-12-2025 ambulatory [facility] Comment on above: (SO)CBC 3MO OV Start: 01-04-2025 End: 01-04-2025 ambulatory 01/04/2025 10:10 AM EDT Visit (SP) Office Hematology/Oncology [address] [place] [address] Ha Luque MD [address], [place] [id number] 3 WK OV* Hematology/Oncology Comment on above: 3 WK OV* Start: 12-14-2024 End: 12-14-2025 Cobalamin (Vitamin B12) [Mass/volume] in Serum or Plasma [facility] Comment on above: Expected: 12/14/2024 , Expires: 12/14/2025 Start: 12-14-2024 End: 12-14-2025 Ferritin [Mass/volume] in Serum or Plasma [facility] Comment on above: Expected: 12/14/2024 , Expires: 12/14/2025 Start: 12-14-2024 End: 03-15-2025 Folate [Mass/volume] in Serum or Plasma [facility] Comment on above: Expected: 12/14/2024 , Expires: 03/15/2025 Start: 12-14-2024 End: 03-15-2025 Haptoglobin [Mass/volume] in Serum or Plasma [facility] Comment on above: Expected: 12/14/2024 , Expires: 03/15/2025 Start: 12-14-2024 End: 12-14-2025 Iron and Iron binding capacity panel - Serum or Plasma [facility] Work Phone: Comment on above: Expected: 12/14/2024 (Approximate), Expires: 12/14/2025 Start: 12-14-2024 End: 12-14-2024 ambulatory 12/14/2024 1:00 PM EDT Visit (SP) Office Hematology/Oncology [address] [place] [address] aH Luque MD [address], [place] [id number] 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 LONNIE POLLACK* Start: 09-05-2024 Advance Directive Discussion Advance Directive Discussion [facility] Start: 09-05-2024 Medicare Advantage Annual Wellness Visit Medicare Advantage Annual Wellness Visit [facility] Start: 05-06-2024 Covid-19 Vaccine ( season) Covid-19 Vaccine ( season) [facility] Start: 09-05-2023 Advance Directive Discussion Advance Directive Discussion [facility] Start: 09-05-2023 Behavioral Health Screening Behavioral Health Screening [facility] Start: 05-06-2023 Covid-19 Vaccine ( season) Covid-19 Vaccine ( season) [facility] Start: 05-06-2020 Influenza vaccination INFLUENZA (#1) [facility] Start: 2002 ADVANCE DIRECTIVE DISCUSSION ADVANCE DIRECTIVE DISCUSSION [facility] Start: 2002 PNEUMOVAX AGE 65 AND OVER WITH 5YR LOOKBACK (#1) PNEUMOVAX AGE 65 AND OVER WITH 5YR LOOKBACK (#1) [facility] Start: 1997 RSV Vaccine (1 - 1-d ose 60+ series) RSV Vaccine (1 - 1-dose 60+ series) [facility] Start: 1987 SHINGRIX VACCINE (1 of 2) SHINGRIX VACCINE (1 of 2) [facility] Start: 1982 DIABETES SCREEN DIABETES SCREEN [facility] Start: 02-03-1956 Shingrix Vaccine (1 of 2) Shingrix Vaccine (1 of 2) [facility] Start: 02-03-1956 Urine microalbumin profile DTAP,TDAP,TD (1 - Tdap) [facility] Start: 1955 Anxiety Screening Anxiety Screening [facility] Start: 1955 Depression Screening Depression Scre ening [facility] Start: 1955 Hepatitis B surface antibody level LDL Cholesterol [facility] Start: 1947 Diabetic foot examination Diabetic Foot Exam [facility] Start: 1947 Glaucoma screening Dilated Retinal E xam [facility] Start: 1947 Hepatitis B screening Urine Albumin:Creatinine Ratio [facility] Start: 1942 Hemoglobin A1c measurement HbA1C [facility] End: 01-04-2026 CBC W Auto Differential panel - Blood COMPLETE BLOOD COUNT AND DIFFERENTIAL Lab Routine Anemia, unspecified type Every 3 months for 4 Occurrences starting 01/04/2025 until 01/04/2026 [facility] Work Phone: Comment on above: Every 3 months for 4 Occurrences starting 01/04/2025 until 01/04/2026 [facility] Immunizations Immunization Date Immunization Notes Care Provider [facility] 06-26-2024 influenza virus vacc ine, unspecified formulation Heather Awan RN Work Phone: [facility] 07-13-2023 influenza virus vacc ine, unspecified formulation [facility] 07-06-2022 SARS-CoV-2 (CV19)mRNA-1273 bivalent vac [facility] 06-12-2022 influenza virus vacc ine, unspecified formulation [facility] 07-28-2021 SARS-CoV-2 (COVID-19 ) mRNA-1273 vaccine [facility] 06-26-2021 influenza virus vacc ine, unspecified formulation [facility] 10-30-2020 SARS-CoV-2 (COVID-19 ) mRNA-1273 vaccine [facility] Comment on above: Result Comment: 2023: [id number] 10-02-2020 SARS-CoV-2 (COVID-19 ) mRNA-1273 vaccine [facility] 06-24-2020 influenza virus vacc ine, unspecified formulation DR CLOVER KATZ MD [facility] 07-20-2018 influenza virus vacc ine, unspecified formulation DR CLOVER KATZ MD [facility] 07-20-2018 tetanus toxoid, redu solomon diphtheria toxoid, and acellular pertussis vaccine, adsorbed [facility] 08-23-2017 influenza virus vacc ine, unspecified formulation DR CLOVER KATZ MD [facility] 08-23-2017 pneumococcal polysaccharide vaccine, [address] CLOVER KATZ MD [facility] 09-12-2016 pneumococcal conjuga te vaccine, [address] CLOVER KATZ MD [facility] 08-23-2015 influenza virus vacc ine, unspecified formulation DR CLOVER KATZ MD [facility] Payers Date Payer Category Payer Medicare [id number] 2024 Medicare (Managed Care) [facility] HMO [id number] 2024 Unknown [id number] 2024 Self-pay 2023 Medicare [id number] 2023 Private Health Insurance [id number] 2023 Medicare [id number] 2023 Private Health Insurance [id number] 2023 Unknown [id number] Unknown [id number] 2013 Medicare [id number] 2013 Medicare [id number] 2010 Unknown ANTHEM BLUE CROS S AND BLUE SHIELD ANTHEM MEDIBLUE HMO [id number] 2010-Present HMO [id number]. [id number] 1937 Unknown [id number] 2.16.840.1.481306.3.579.2. 1937 Unknown [id number] 2.16.840.1.783410.3.579.2. 1937 Unknown [id number] 2.16.840.1.045172.3.579.2 1937 Unknown [id number] 2.16.840.1.317446.3.579.2 1937 Unknown [id number] 2.16.840.1.414569.3.579.2 1937 Unknown [id number] 2.16.840.1.058763.3.579.2 1937 Unknown [id number] 2.16.840.1.349724.3.579.2 1937 Unknown [id number] 2.16.840.1.888025.3.579.2 1937 Unknown [id number] 2.16.840.1.359628.3.579.2 1937 Unknown [id number] 2.16.840.1.602624.3.579.2 1937 Unknown [id number] 2.16.840.1.738990.3.579.2 1937 Unknown [id number] 2.16.840.1.969200.3.579.2 1937 Unknown [id number] 2.16.840.1.257297.3.579.2. 1937 Unknown [id number] 2.16.840.1.576449.3.579.2. 1937 Unknown [id number] 2.16.840.1.858684.3.579.2 1937 Unknown [id number] 2.16.840.1.704116.3.579.2 1937 Unknown [id number] 2.16.840.1.819230.3.579.2 1937 Unknown [id number] 2.16.840.1.696862.3.579.2 1937 Unknown [id number] 2.16.840.1.487291.3.579.2 1937 Unknown [id number] 2.16840.1.806775.3.579.2 1937 Unknown [id number] 2.16840.1.086506.3.579.2 1937 Unknown [id number] 2.16840.1.693632.3.579.2 1937 Unknown [id number] 2.16.840.1.830786.3.579.2 1937 Unknown [id number] 2.16840.1.865941.3.579.2 1937 Unknown [id number] 2.16.840.1.418796.3.579.2 1937 Unknown [id number] 2.16.840.1.943091.3.579.2 1937 Unknown [id number] 2.16.840.1.193103.3.579.2 1937 Unknown [id number] 2.16.840.1.043649.3.579.2 1937 Unknown [id number] 2.16.840.1.573020.3.579.2. 1937 Unknown [id number] 2.16.840.1.637527.3.579.2 1937 Unknown [id number] 2.16.840.1.642741.3.579.2. 1937 Unknown [id number] 2.16.840.1.213040.3.579.2 1937 Unknown [id number] 2..840.1.902811.3.579.2 1937 Unknown [id number] 2.840.1.963234.3.579.2 1937 Unknown [id number] 2.840.1.890479.3.579.2 1937 Unknown [id number] 2.840.1.684976.3.579.2 1937 Unknown [id number] 2.840.1.855460.3.579.2 1937 Unknown [id number] 2.840.1.632568.3.579.2 1937 Unknown [id number] 2.840.1.279783.3.579.2 1937 Unknown [id number] 2.16840.1.068342.3.579.2 1937 Unknown [id number] 2.16.840.1.856639.3.579.2 1937 Unknown [id number] 2.16.840.1.542996.3.579.2 1937 Unknown [id number] 2.16840.1.632510.3.579.2 1937 Unknown [id number] 2.16.840.1.365309.3.579.2. 1937 Unknown [id number] 2.16.840.1.609983.3.579.2 1937 Unknown [id number] 2.16.840.1.344178.3.579.2 1937 Unknown [id number] 2.16.840.1.165778.3.579.2 1937 Unknown [id number] 2.16.840.1.008069.3.579.2 1937 Unknown [id number] 2.840.1.343952.3.579.2 1937 Unknown [id number] 2.840.1.025460.3.579.2 1937 Unknown [id number] 2.840.1.444005.3.579.2 1937 Unknown [id number] 2.840.1.244699.3.579.2 1937 Unknown [id number] 2.840.1.516429.3.579.2 1937 Unknown [id number] 2.16840.1.269352.3.579.2 1937 Unknown [id number] 2.16840.1.565624.3.579.2 1937 Unknown [id number] 2.16840.1.017944.3.579.2 1937 Unknown [id number] 2.16.840.1.910881.3.579.2 1937 Unknown [id number] 2.16840.1.736159.3.579.2 Unknown [id number] Unknown [id number] 2.16.840.1.318310.3.579.2. 462 Unknown [id number] 2.16.840.1.828261.3.579.2. 462 Unknown [id number] 2.16.840.1.788379.3.579.2. 462 Unknown [id number] 2.16.840.1.921943.3.579.2. 462 Unknown [id number] 2.16.840.1.455094.3.579.2. 462 Unknown [id number] 2.16.840.1.984838.3.579.2. 462 Social History Date Type Detail Facility Tobacco smoking stat [facility] Unknown if ever smoked [facility] Start: 1935 Sex Assigned At Not on file [place] Tobacco Nicotine Use: denies. [facility] Start: 03-16-2023 End: 02-11-2024 Never smoked tobacco (finding) [facility] Start: 1935 Sex Assigned At Male A [facility] Start: 02-11-2024 Tobacco use and exposure Smokeless tobacco non-user [facility] Start: 02-11-2024 Alcohol intake Lifetime non-d wojciech (finding) [facility] Start: 02-11-2024 End: 12-14-2024 History of Social function [facility] Start: 02-11-2024 End: 12-14-2024 Tobacco use panel [facility] Start: 08-06-2012 National Score (1-100), lower number is lower risk Not on file [facility] Sexual Orientation [facility] Start: 04-29-2020 Sex Male (finding) [facility] Start: 11-29-2024 End: 05-16-2025 Alcoholic beverage intake Ex-drinker (finding) [facility] Tobacco smoking stat us [facility] Unknown if ever smoked [facility] Work Phone: How often to you hav e a drink containing alcohol? Never [facility] NEGATED: Highlighted rowStart: VANESSA History of tobacco use Passive smoker [facility] Medical Equipment Procedure Code Equipment Code Equipment Origin al Text Equipment Identifier Dates Cystoscopy [facility] Unknown 09/21/23 Unknown Unknown FDA Start: 09-21-2023 Cystoscopy [facility] Unknown 09/21/23 Unknown Unknown FDA Start: 09-21-2023 Cystoscopy [facility] Unknown 09/21/23 Unknown Unknown FDA Start: 09-21-2023 Cystoscopy [facility] Unknown 09/21/23 Unknown Unknown FDA Start: 09-21-2023 Cystoscopy [facility] Unknown 09/21/23 Unknown Unknown FDA Start: 09-21-2023 Cystoscopy [facility] Unknown 09/21/23 Unknown Unknown FDA Start: 09-21-2023 Cystoscopy [facility] Unknown 09/21/23 Unknown Unknown FDA Start: 09-21-2023 Cystoscopy [facility] Unknown 09/21/23 Unknown Unknown FDA Start: 09-21-2023 Cystoscopy [facility] Unknown 09/21/23 Unknown Unknown FDA Start: 09-21-2023 Cystoscopy [facility] Unknown 09/21/23 Unknown Unknown FDA Start: 09-21-2023 Cystoscopy [facility] Unknown 09/21/23 Unknown Unknown FDA Start: 09-21-2023 Cystoscopy [facility] Unknown 09/21/23 Unknown Unknown FDA Start: 09-21-2023 Cystoscopy [facility] Unknown 09/21/23 Unknown Unknown FDA Start: 09-21-2023 Cystoscopy [facility] Unknown 09/21/23 Unknown Unknown FDA Start: 09-21-2023 Cystoscopy [facility] Unknown 09/21/23 Unknown Unknown FDA Start: 09-21-2023 Cystoscopy [facility] Unknown 09/21/23 Unknown Unknown FDA Start: 09-21-2023 Cystoscopy [facility] Unknown 09/21/23 Unknown Unknown FDA Start: 09-21-2023 Cystoscopy [facility] Unknown 09/21/23 Unknown Unknown FDA Start: 09-21-2023 Cystoscopy [facility] Unknown 09/21/23 Unknown Unknown FDA Start: 09-21-2023 Cystoscopy [facility] Unknown 09/21/23 Unknown Unknown FDA Start: 09-21-2023 Cystoscopy [facility] Unknown 09/21/23 Unknown Unknown FDA Start: 09-21-2023 Cystoscopy [facility] Unknown 09/21/23 Unknown Unknown FDA Start: 09-21-2023 Cystoscopy [facility] Unknown 09/21/23 Unknown Unknown FDA Start: 09-21-2023 Cystoscopy [facility] Unknown 09/21/23 Unknown Unknown FDA Start: 09-21-2023 Cystoscopy [facility] Unknown 09/21/23 Unknown Unknown FDA Start: 09-21-2023 Cystoscopy [facility] Unknown 09/21/23 Unknown Unknown FDA Start: 09-21-2023 Cystoscopy [facility] Unknown 09/21/23 Unknown Unknown FDA Start: 09-21-2023 Cystoscopy [facility] Unknown 09/21/23 Unknown Unknown FDA Start: 09-21-2023 Cystoscopy [facility] Unknown 09/21/23 Unknown Unknown FDA Start: 09-21-2023 Cystoscopy [facility] Unknown 09/21/23 Unknown Unknown FDA Start: 09-21-2023 Cystoscopy [facility] Unknown 09/21/23 Unknown Unknown FDA Start: 09-21-2023 Cystoscopy [facility] Unknown 09/21/23 Unknown Unknown FDA Start: 09-21-2023 Cystoscopy [facility] Unknown 09/21/23 Unknown Unknown FDA Start: 09-21-2023 Cystoscopy [facility] Unknown 09/21/23 Unknown Unknown FDA Start: 09-21-2023 [facility] heart valve FDA Start: 06-19-2012 Cystoscopy [facility] Unknown 09/21/23 Unknown Unknown FDA Start: 09-21-2023 Cystoscopy [facility] Unknown 09/21/23 Unknown Unknown FDA Start: 09-21-2023 [facility] heart valve FDA Start: 06-19-2012 Cystoscopy with Lithotripsy Unknown 09/21/23 Unknown Unknown FDA Start: 09-21-2023 Functional Status Date Assessment Result Facility 05-16-2025 Total score [AUDIT-C] 0 05/16/20 25 9:36 AM Ramon Martinez MA [facility] 09-09-2024 Functional Status Room check performed [facility] 09-09-2024 Functional Status [facility] 09-09-2024 Functional Status [facility] 09-09-2024 Functional Status [facility] 09-09-2024 Functional Status Nurse Safety Fritz alvarez q2hrs Performed 7pm-7am [facility] 09-08-2024 Functional Status Done [facility] 09-08-2024 Functional Status 100 [facility] 09-08-2024 Functional Status [facility] 09-08-2024 Functional Status [facility] 09-08-2024 Functional Status owns a station carlos bike (09/08/24) [facility] 09-08-2024 Functional Status [facility] 09-07-2024 Functional Status [facility] 09-07-2024 Functional Status 100 [facility] 09-07-2024 Functional Status Minimum assistance [facility] 09-07-2024 Functional Status [facility] 05-27-2024 Functional Status Awake [facility] 05-04-2024 Functional Status Standard Safet y ID band on, Call device within reach, Bed in low position, Wheels locked, Upper/Half-Length side-rails up, Phone within reach, personal items within reach, Visitor at bedside, Safety level maintained [facility] 11-03-2023 Functional Status Activity Blake tance Minimum assistance [facility] 11-03-2023 Functional Status Awake [facility] 11-03-2023 Functional Status Maintained [facility] 10-18-2023 Functional Status Sensory Deficits None A [facility] 10-18-2023 Functional Status Sensory Defici ts Uncorrected visual impairment [facility] 09-23-2023 Functional Status Room check performed [facility] 09-23-2023 Functional Status Done [facility] 09-23-2023 Functional Status [facility] 09-23-2023 Functional Status Nurse Robby alvarez q2hrs Performed 3am-7am [facility] 09-23-2023 Functional Status [facility] 09-22-2023 Functional Status [facility] 09-21-2023 Functional Status [facility] 09-21-2023 Functional Status Gr[facility]egorz [facility] 09-21-2023 Functional Status Driving, Personal ADL [facility] 09-21-2023 Functional Status Patient Identi fied Identification band, Verbal [facility] 09-20-2023 Functional Status Sensory Deficits None A [facility] 09-20-2023 Functional Status Standard Safet y ID band on, Call device within reach, Bed in low position, Wheels locked, Upper/Half-Length side-rails up, Phone within reach, personal items within reach [facility] 09-20-2023 Functional Status Up ad marly Grzegorz [facility] 09-20-2023 Functional Status Grzegorz [facility] 09-06-2023 Functional Status Independent Grzegorz [facility] 08-28-2023 Functional Status [facility] Functional Status Independent Grzegorz [facility] 05-31-2023 Functional Status Repositions self [facility] 05-03-2023 Functional Status ID band on, Call device within reach, Bed in low position, Wheels locked [facility] 04-29-2023 [facility] Functional Status ID band on, Call device within reach, Bed in low position, Wheels locked, Upper/Half-Length side-rails up, Phone within reach, Visitor at bedside [facility] 02-01-2023 Functional Status Ambulating in room [facility] 02-01-2023 Functional Status Grzegorz [facility] 02-01-2023 Functional Status Maintained [facility] Mental Status Date Assessment Result Facility 09-09-2024 Mental Status Oriented x 4 [facility] 09-09-2024 Mental Status [facility] 09-08-2024 Mental Status [facility] 09-08-2024 Mental Status [facility] 05-27-2024 Mental Status Oriented x 4 [facility] 05-04-2024 Mental Status Orientation Oriented x 4 [facility] 11-03-2023 Mental Status Orientation Oriented x 4 [facility] 11-03-[facility]23 [facility] Status Orientation Oriented x 4 [facility] 09-23-2023 Mental Status Orientation Oriented x 4 [facility] 09-22-2023 Mental Status [facility]22[facility] Mental Status Orientation Asse ssment Oriented x 4 [facility] 09-21-2023 [facility] Status [facility] 09-20-2023 Mental Status Orientation Oriented x 4 [facility] 09-20-2023 Mental Status Orientation Oriented x 4 [facility] 09-20-[facility]23 [facility] 09-06-2023 Mental Status Orientation Oriented x 4 [facility] 09-06-2023 Mental Status [facility] 05-31-2023 Mental Status Orientation Oriented x 4 [facility] 05-03-2023 Mental Status Oriented x 4 [facility] 04-29-2023 Mental Status Oriented x 4 [facility] 02-20-2023 Mental Status Oriented x 4 [facility] 02-01-2023 Mental Status Oriented x 4 [facility] 02-01-2023 Mental Status Orientation Asse ssment Oriented x 4 [facility] Clinical Notes 02-01-2023 to 06-27-2025 Ha Luque MD - 05/16/2025 9:51 AM EDTPAltagracia hernandez LPN - 05/16/2025 9:50 AM EDT Note Date & Type Note Facility 06-27-2025 Note HNO ID: [id number] Author: HA LUQUE MD Service: ? Author Type: Physician Type: Progress Notes Filed: 06/27/2025 12:41 Note Text: (Elements copied from my note dated May 16, 2025, have been reviewed and updated where appropriate, and all reflect current assessment and medical decision making from today's encounter, June 27, 2025) HISTORY OF PRESENT ILLNESS: Jaylen Galaviz is a 89 year old male referred for pancytopenia. Had RT to prostate 2022 at [facility]. WBC 2.7-3.1 in September, hgb 9.5 to 10.2. platelts ok., cbc overall pretty stable over last year. Colonoscopy about a year ago Seen initially for evaluation. Notes no bleeding or black stool. Here for follow up , reviewed labs. All stable, probably not needing epo at this time. CrCl 55 CKD stage 3a CLINICAL IMPRESSION: Anemia, leukopenia mild, amy relates to prior prostate radiation, counts have been pretty stable over the past year or more. Suspect renal component of anemia. RECOMMENDATION/PLAN: 1. Hold Aranesp today, recheck in 8 weeks with possible aranesp Written and verbal health teaching given to patient, patient verbalizes understanding and agrees with treatment plan. 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 Benign hypertension Bilateral leg pain CAD in [place] artery Centrilobular emphysema (HCC) CKD (chronic kidney disease) stage 3, GFR 30-59 ml/min (HCC) Diabetes mellitus (HCC) MAZARIEGOS (dyspnea on exertion) Dysuria Elevated brain natriuretic peptide (BNP) level Fatigue Fatty infiltration of liver Ground glass opacity present on imaging of lung History of echocardiogram 09/30/2017 EF 55-60% grade 1 diastolic dysfunction aortic valve bioprosthesis is present and functioning normally mild TR History of echocardiogram 08/18/2020 concentric LVH EF 55-60% grade 1 diastolic dysfunction mild MR History of echocardiogram 08/18/2020 EF 55-60% grade 1 diastolic dysfunction normally functioning bioprosthetic valve mean gradient 13mmHg mild MR History of stress test 08/22/2018 no evidence of ischemia or infarction abnormal septal motion EF 59% Lung nodule seen on imaging study Mixed hyperlipidemia Myalgia Obesity (BMI 30-39.9) ROBERT (obstructive sleep apnea) PMR (polymyalgia rheumatica) (HCC) Pulmonary fibrosis (HCC) 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 HUERTA to the LAD SVG to the circumflex SOB (shortness of breath) Venous insufficiency of both lower extremities Vitamin D deficiency PAST SURGICAL HISTORY Procedure Laterality Date CATARACT EXTRACTION HX Bilateral CORONARY ARTERY BYPASS GRAFT REVISE MEDIAN N/CARPAL TUNNEL SURG Right FAMILY HISTORY Problem Relation Age of Onset Heart Mother Heart Father Social History Tobacco Use Smoking status: Never Passive exposure: Never Smokeless tobacco: Never Vaping Use Vaping status: Never Used Substance Use Topics Alcohol use: Not Currently Drug use: Never ALLERGIES: ALLERGIES Allergen Reactions Rosuvastatin Myalgia CURRENT OUTPATIENT MEDICATIONS: acetaminophen (TYLENOL EXTRA STRENGTH) 500 mg tablet Take 500 mg by mouth every 8 hours as needed. leflunomide (ARAVA) 10 mg tablet Take 10 mg by mouth once daily. glimepiride (AMARYL) 1 mg tablet Take 1 mg by mouth two times a day with meals. SITagliptin-metFORMIN (JANUMET) 50-1,000 mg per tablet Take 1 tablet by mouth twice daily with meals. lisinopril (ZESTRIL, PRINIVIL) 40 mg tablet Take 40 mg by mouth once daily. cholecalciferol (VITAMIN D-3) 50 mcg (2,000 unit) tablet Take 5,000 Units by mouth once daily. SITagliptin phosphate (JANUVIA) 25 mg tablet Take 25 mg by mouth once daily. (Patient not taking: Reported on 04/17/2025) ascorbic acid, vitamin C, (VITAMIN C) 500 mg tablet Take 500 mg by mouth once daily. (Patient not taking: Reported on 04/17/2025) ferrous sulfate (FEOSOL) 325 mg (65 mg iron) tablet 325 mg. (Patient not taking: Reported on 12/14/2024) mupirocin (BACTROBAN) 2 % ointment Apply 1 application to affected area three times a day. (Patient not taking: Reported on 12/14/2024) aspirin, enteric coated (ASPIRIN, ENTERIC COATED) 81 mg EC tablet Take 81 mg by mouth once daily. (Patient not taking: Reported on 12/14/2024) CPAP daily at bedtime. Multivitamin capsule Take 1 capsule by mouth once daily. (Patient not taking: Reported on 06/27/2025) pantoprazole DR (PROTONIX) 40 mg tablet Take 40 mg by mouth once daily. (Patient not taking: Reported on 04/17/2025) hydrOXYchloroQUINE (PLAQUENIL) 200 mg tablet Take 200 mg by mouth two times a day. (Patient not taking: Reported on 12/14/2024) saw palmetto/pumpkin/pyg/Zn/B6 (S (more content not included)... [facility] 05-16-2025 Note HNO ID: [id number] Author: HA LUQUE MD Service: ? Author Type: Physician Type: Progress Notes Filed: 05/16/2025 10:07 Note Text: (Elements copied from my note dated April 17, 2025, have been reviewed and updated where appropriate, and all reflect current assessment and medical decision making from today's encounter, May 16, 2025) HISTORY OF PRESENT ILLNESS: Jaylen Galaviz is a 89 year old male referred for pancytopenia. Had RT to prostate 2022 at [facility]. WBC 2.7-3.1 in September, hgb 9.5 to 10.2. platelts ok., cbc overall pretty stable over last year. Colonoscopy about a year ago Seen initially for evaluation. Notes no bleeding or black stool. Here for follow up , reviewed labs. All stable, probably not needing epo at this time. CrCl 55 CKD stage 3a CLINICAL IMPRESSION: Anemia, leukopenia mild, jozefley relates to prior prostate radiation, counts have been pretty stable over the past year or more. Suspect renal component of anemia. RECOMMENDATION/PLAN: 1. Hold Aranesp today, recheck in 4-6 weeks with possible aranesp Written and verbal health teaching given to patient, patient verbalizes understanding and agrees with treatment plan. 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 Benign hypertension Bilateral leg pain CAD in [place] artery Centrilobular emphysema (HCC) CKD (chronic kidney disease) stage 3, GFR 30-59 ml/min (HCC) Diabetes mellitus (HCC) MAZARIEGOS (dyspnea on exertion) Dysuria Elevated brain natriuretic peptide (BNP) level Fatigue Fatty infiltration of liver Ground glass opacity present on imaging of lung History of echocardiogram 09/30/2017 EF 55-60% grade 1 diastolic dysfunction aortic valve bioprosthesis is present and functioning normally mild TR History of echocardiogram 08/18/2020 concentric LVH EF 55-60% grade 1 diastolic dysfunction mild MR History of echocardiogram 08/18/2020 EF 55-60% grade 1 diastolic dysfunction normally functioning bioprosthetic valve mean gradient 13mmHg mild MR History of stress test 08/22/2018 no evidence of ischemia or infarction abnormal septal motion EF 59% Lung nodule seen on imaging study Mixed hyperlipidemia Myalgia Obesity (BMI 30-39.9) ROBERT (obstructive sleep apnea) PMR (polymyalgia rheumatica) (HCC) Pulmonary fibrosis (HCC) 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 HUERTA to the LAD SVG to the circumflex SOB (shortness of breath) Venous insufficiency of both lower extremities Vitamin D deficiency PAST SURGICAL HISTORY Procedure Laterality Date CATARACT EXTRACTION HX Bilateral CORONARY ARTERY BYPASS GRAFT REVISE MEDIAN N/CARPAL TUNNEL SURG Right FAMILY HISTORY Problem Relation Age of Onset Heart Mother Heart Father Social History Tobacco Use Smoking status: Never Passive exposure: Never Smokeless tobacco: Never Vaping Use Vaping status: Never Used Substance Use Topics Alcohol use: Not Currently Drug use: Never ALLERGIES: ALLERGIES Allergen Reactions Rosuvastatin Myalgia CURRENT OUTPATIENT MEDICATIONS: leflunomide (ARAVA) 10 mg tablet Take 10 mg by mouth once daily. glimepiride (AMARYL) 1 mg tablet Take 1 mg by mouth two times a day with meals. SITagliptin-metFORMIN (JANUMET) 50-1,000 mg per tablet Take 1 tablet by mouth twice daily with meals. lisinopril (ZESTRIL, PRINIVIL) 40 mg tablet Take 40 mg by mouth once daily. Multivitamin capsule Take 1 capsule by mouth once daily. diphenhydrAMINE-Acetaminophen (TYLENOL PM EXTRA STRENGTH) 25-500 mg tab Take 2 tablets by mouth daily at bedtime. cholecalciferol (VITAMIN D-3) 50 mcg (2,000 unit) tablet Take 5,000 Units by mouth once daily. SITagliptin phosphate (JANUVIA) 25 mg tablet Take 25 mg by mouth once daily. (Patient not taking: Reported on 04/17/2025) ascorbic acid, vitamin C, (VITAMIN C) 500 mg tablet Take 500 mg by mouth once daily. (Patient not taking: Reported on 04/17/2025) ferrous sulfate (FEOSOL) 325 mg (65 mg iron) tablet 325 mg. (Patient not taking: Reported on 12/14/2024) mupirocin (BACTROBAN) 2 % ointment Apply 1 application to affected area three times a day. (Patient not taking: Reported on 12/14/2024) aspirin, enteric coated (ASPIRIN, ENTERIC COATED) 81 mg EC tablet Take 81 mg by mouth once daily. (Patient not taking: Reported on 12/14/2024) CPAP daily at bedtime. pantoprazole DR (PROTONIX) 40 mg tablet Take 40 mg by mouth once daily. (Patient not taking: Reported on 04/17/2025) hydrOXYchloroQUINE (PLAQUENIL) 200 mg tablet Take 200 mg by mouth two times a day. (Patient not taking: Reported on 12/14/2024) saw palmetto/pumpkin/pyg/Zn/B6 (SAW PALMET[place] COMPLEX,PUMPK-ZN, O (more content not included)... [facility] 05-16-2025 History of Present illness Narrative (Elements copied from my note dated April 17, 2025, have been reviewed and updated where appropriate, and all reflect current assessment and medical decision making from today's encounter, May 16, 2025) HISTORY OF PRESENT ILLNESS: Jaylen Galaviz is a 89 year old male referred for pancytopenia. Had RT to prostate 2022 at [facility]. WBC 2.7-3.1 in September, hgb 9.5 to 10.2. platelts ok., cbc overall pretty stable over last year. Colonoscopy about a year ago Seen initially for evaluation. Notes no bleeding or black stool. Here for follow up , reviewed labs. All stable, probably not needing epo at this time. CrCl 55 CKD stage 3a CLINICAL IMPRESSION: Anemia, leukopenia mild, jozefley relates to prior prostate radiation, counts have been pretty stable over the past year or more. Suspect renal component of anemia. RECOMMENDATION/PLAN: 1. Hold Aranesp today, recheck in 4-6 weeks with possible aranesp Written and verbal health teaching given to patient, patient verbalizes understanding and agrees with treatment plan. 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 Benign hypertension Bilateral leg pain CAD in [place] artery Centrilobular emphysema (HCC) CKD (chronic kidney disease) stage 3, GFR 30-59 ml/min (HCC) Diabetes mellitus (HCC) MAZARIEGOS (dyspnea on exertion) Dysuria Elevated brain natriuretic peptide (BNP) level Fatigue Fatty infiltration of liver Ground glass opacity present on imaging of lung History of echocardiogram 09/30/2017 EF 55-60% grade 1 diastolic dysfunction aortic valve bioprosthesis is present and functioning normally mild TR History of echocardiogram 08/18/2020 concentric LVH EF 55-60% grade 1 diastolic dysfunction mild MR History of echocardiogram 08/18/2020 EF 55-60% grade 1 diastolic dysfunction normally functioning bioprosthetic valve mean gradient 13mmHg mild MR History of stress test 08/22/2018 no evidence of ischemia or infarction abnormal septal motion EF 59% Lung nodule seen on imaging study Mixed hyperlipidemia Myalgia Obesity (BMI 30-39.9) ROBERT (obstructive sleep apnea) PMR (polymyalgia rheumatica) ([facility]) Pulmonary fibrosis ([facility]) 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 [place] 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 HUERTA to the LAD SVG to the circumflex SOB (shortness of breath) Venous insufficiency of both lower extremities Vitamin D deficiency PAST SURGICAL HISTORY Procedure Laterality Date CATARACT EXTRACTION HX Bilateral CORONARY ARTERY BYPASS GRAFT REVISE MEDIAN N/CARPAL TUNNEL SURG Right FAMILY HISTORY Problem Relation Age of Onset Heart Mother Heart Father Social History Tobacco Use Smoking status: Never Passive exposure: Never Smokeless tobacco: Never Vaping Use Vaping status: Never Used Substance Use Topics Alcohol use: Not Currently Drug use: Never ALLERGIES: ALLERGIES Allergen Reactions Rosuvastatin Myalgia CURRENT OUTPATIENT MEDICATIONS: leflunomide (ARAVA) 10 mg tablet Take 10 mg by mouth once daily. glimepiride (AMARYL) 1 mg tablet Take 1 mg by mouth two times a day with meals. SITagliptin-metFORMIN (JANUMET) 50-1,000 mg per tablet Take 1 tablet by mouth twice daily with meals. lisinopril (ZESTRIL, PRINIVIL) 40 mg tablet Take 40 mg by mouth once daily. Multivitamin capsule Take 1 capsule by mouth once daily. diphenhydrAMINE-Acetaminophen (TYLENOL PM EXTRA STRENGTH) 25-500 mg tab Take 2 tablets by mouth daily at bedtime. cholecalciferol (VITAMIN D-3) 50 mcg (2,000 unit) tablet Take 5,000 Units by mouth once daily. SITagliptin phosphate (JANUVIA) 25 mg tablet Take 25 mg by mouth once daily. (Patient not taking: Reported on 04/17/2025) ascorbic acid, vitamin C, (VITAMIN C) 500 mg tablet Take 500 mg by mouth once daily. (Patient not taking: Reported on 04/17/2025) ferrous sulfate (FEOSOL) 325 mg (65 mg iron) tablet 325 mg. (Patient not taking: Reported on 12/14/2024) mupirocin (BACTROBAN) 2 % ointment Apply 1 application to affected area three times a day. (Patient not taking: Reported on 12/14/2024) aspirin, enteric coated (ASPIRIN, ENTERIC COATED) 81 mg EC tablet Take 81 mg by mouth once daily. (Patient not taking: Reported on 12/14/2024) CPAP daily at bedtime. pantoprazole DR (PROTONIX) 40 mg tablet Take 40 mg by mouth once daily. (Patient not taking: Reported on 04/17/2025) hydrOXYchloroQUINE (PLAQUENIL) 200 mg tablet Take 200 mg by mouth two times a day. (Patient not taking: Reported on 12/14/2024) saw palmetto/pumpkin/pyg/Zn/B6 (SAW PALMETTO COMPLEX,PUMPK-ZN, ORAL) Take by mouth once daily. (Patient not taking: Reported on 12/14/2024) Vitamin E, dl, acetate, (VITAMIN E) 400 unit capsule Take 400 Units by mouth once daily. (Patient not taking: Reported on 12/14/2024) REVIEW OF SYSTEMS: GENERAL: No fever, night sweats, weight loss or malaise. All other reviewed and negative other than HPI. PHYSICAL EXAMINATION: VITAL SIGNS: BP 134/72 Pulse 55 Temp (Src) 68.8 (Temporal) Ht 5' 9.685 (1.77m) Wt 198 lb (89.8kg) SpO2 98% BMI 28.67 kg/(m^2). GENERAL APPEARANCE: Well appearing, in no acute distress, alert and oriented x3, well-hydrated, well nourished. I spent a total of 20 minutes on the date of the service which included preparing to see the patient, [id number] patient care, completing clinical documentation, obtaining and/or reviewing separately obtained history, counseling and educating the patient/family/caregiver, ordering medications, tests, or procedures, independently interpreting results (not separately reported), and communicating results to the patient/family/caregiver. Electronically Signed: Ha Luque MD May 16, 2025 documented in this encounter [facility] 05-16-2025 Note HNO ID: [id number] Author: ALTAGRACIA TAFOYA LPN Service: ? Author Type: Licensed Nurse Type: Progress Notes Filed: 05/16/2025 09:50 Note Text: Hgb 10.2. Injection deferred. Altagracia Tafoya LPN [facility] 05-16-2025 History of Present illness Narrative Hgb 10.2. Injection deferred. Altagracia Tafoya LPN documented in this encounter [facility] 05-16-2025 Evaluation note Diagnosis Anemia, unspecified type- Primary Stage 3a chronic kidney disease (HCC) documented in this encounter [facility]08-13-2025 NoteHNO ID: [id number] Author: SHANNON EISENBERG LPN Service: ? Author Type: LICENSED NURSE Type: Progress Notes Filed: 04/17/2025 13:49 Note Text: Patient here for injection of Aranesp. Given SQ in left arm. Patient tolerated well. Shannon Eisenberg [facility]08-13-2025 History of Present illness Narrative* Shannon Eisenberg LPN - 04/17/2025 1:29 PM EDT Patient here for injection of Aranesp. Given SQ in left arm. Patient tolerated well. Shannon Eisenberg LPN * Ha Luque MD - 04/17/2025 1:00 PM EDT (Elements copied from my note dated January 04, 2025, have been reviewed and updated where appropriate, and all reflect current assessment and medical decision making from today's encounter, April 17, 2025) HISTORY OF PRESENT ILLNESS: Jaylen Galaviz is a 89 year old male referred for pancytopenia. Had RT to prostate 2022 at [facility]. WBC 2.7-3.1 in September, hgb 9.5 to 10.2. platelts ok., cbc overall pretty stable over last year. Colonoscopy about a year ago Seen initially for evaluation. Notes no bleeding or black stool. Here for follow up , reviewed labs. All stable, probably not needing epo at this time. CrCl 55 CKD stage 3a CLINICAL IMPRESSION: Anemia, leukopenia mild, likley relates to prior prostate radiation, counts have been pretty stableover the past year or more. Suspect renal component of anemia. RECOMMENDATION/PLAN: 1. Aranesp today, recheck in 1 month with possible aranesp Written and verbal health teaching given to patient, patient verbalizes understanding and agrees with treatment plan. 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 Benign hypertension Bilateral leg pain CAD in [place] artery Centrilobular emphysema (HCC) CKD (chronic kidney disease) stage 3, GFR 30-59 ml/min (HCC) Diabetes mellitus (HCC) MAZARIEGOS (dyspnea on exertion) Dysuria Elevated brain natriuretic peptide (BNP) level Fatigue Fatty infiltration of liver Ground glass opacity present on imaging of lung History of echocardiogram 09/30/2017 EF 55-60% grade 1 diastolic dysfunction aortic valve bioprosthesis is present and functioning normally mild TR History of echocardiogram 08/18/2020 concentric LVH EF 55-60% grade 1 diastolic dysfunction mild MR History of echocardiogram 08/18/2020 EF 55-60% grade 1 diastolic dysfunction normally functioning bioprosthetic valve mean gradient 13mmHg mild MR History of stress test 08/22/2018 no evidence of ischemia or infarction abnormal septal motion EF 59% Lung nodule seen on imaging study Mixed hyperlipidemia Myalgia Obesity (BMI 30-39.9) ROBERT (obstructive sleep apnea) PMR (polymyalgia rheumatica) (HCC) Pulmonary fibrosis (HCC) 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 [place] 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 HUERTA to the LAD SVG to the circumflex SOB (shortness of breath) Venous insufficiency of both lower extremities Vitamin D deficiency PAST SURGICAL HISTORY Procedure Laterality Date CATARACT EXTRACTION HX Bilateral CORONARY ARTERY BYPASS GRAFT REVISE MEDIAN N/CARPAL TUNNEL SURG Right FAMILY HISTORY Problem Relation Age of Onset Heart Mother Heart Father Social History Tobacco Use Smoking status: Never Passive exposure: Never Smokeless tobacco: Never Vaping Use Vaping status: Never Used Substance Use Topics Alcohol use: Not Currently Drug use: Never ALLERGIES: ALLERGIES Allergen Reactions Rosuvastatin Myalgia CURRENT OUTPATIENT MEDICATIONS: leflunomide (ARAVA) 10 mg tablet Take 10 mg by mouth once daily. glimepiride (AMARYL) 1 mg tablet Take 1 mg by mouth two times a day with meals. CPAP daily at bedtime. SITagliptin-metFORMIN (JANUMET) 50-1,000 mg per tablet Take 1 tablet by mouth twice daily with meals. lisinopril (ZESTRIL, PRINIVIL) 40 mg tablet Take 40 mg by mouth once daily. Multivitamin capsule Take 1 capsule by mouth once daily. diphenhydrAMINE-Acetaminophen (TYLENOL PM EXTRA STRENGTH) 25-500 mg tab Take 2 tablets by mouth daily at bedtime. cholecalciferol (VITAMIN D-3) 50 mcg (2,000 unit) tablet Take 5,000 Units by mouth once daily. SITagliptin phosphate (JANUVIA) 25 mg tablet Take 25 mg by mouth once daily. (Patient not taking: Reported on 04/17/2025) ascorbic acid, vitamin C, (VITAMIN C) 500 mg tablet Take 500 mg by mouth once daily. (Patient not taking: Reported on 04/17/2025) ferrous sulfate (FEOSOL) 325 mg (65 mg iron) tablet 325 mg. (Patient not taking: Reported on 12/14/2024) mupirocin (BACTROBAN) 2 % ointment Apply 1 application to affected area three times a day. (Patientnot taking: Reported on 12/14/2024) aspirin, enteric coated (ASPIRIN, ENTERIC COATED) 81 mg EC tablet Take 81 mg by mouth once daily. (Patient not taking: Reported on 12/14/2024) pantoprazole DR (PROTONIX) 40 mg tablet Take 40 mg by mouth once daily. (Patient not taking: Reported on 04/17/2025) hydrOXYchloroQUINE (PLAQUENIL) 200 mg tablet Take 200 mg by mouth two times a day. (Patient not taking: Reported on 12/14/2024) saw palmetto/pumpkin/pyg/Zn/B6 (SAW PALMETTO COMPLEX,PUMPK-ZN, ORAL) Take by mouth once daily. (Patient not taking: Reported on 12/14/2024) Vitamin E, dl, acetate, (VITAMIN E) 400 unit capsule Take 400 Units by mouth once daily. (Patient not taking: Reported on 12/14/2024) REVIEW OF SYSTEMS: GENERAL: No fever, night sweats, weight loss or malaise. All other reviewed and negative other than HPI. PHYSICAL EXAMINATION: VITAL SIGNS: BP 173/74 Pulse 63 Temp (Src) 97.1 (Temporal) Wt 195 lb (88.5kg) SpO2 98% GENERAL APPEARANCE: Well appearing, in no acute distress, alert and oriented x3, well-hydrated, well nourished. I spent a total of 20 minutes on the date of the service which included preparing to see the patient, [id number] patient care, completing clinical documentation, obtaining and/or reviewing separately obtained history, counseling and educating the patient/family/caregiver, ordering medications, shekhar ts, or procedures, independently interpreting results (not separately reported), and communicating results to the patient/family/caregiver. Electronically Signed: Ha Luque MD April 17, 2025 [facility]25 NoteHNO ID: [id number] Author: HA LUQUE MD Service: ? Author Type: Physician Type: Progress Notes Filed: 04/17/2025 13:49 Note Text: (Elements copied from my note dated January 04, 2025, have been reviewed and updated where appropriate, and all reflect current assessment and medical decision making from today's encounter, April 17, 2025) HISTORY OF PRESENT ILLNESS: Jaylen Galaviz is a 89 year old male referred for pancytopenia. Had RT to prostate 2022 at [facility]. WBC 2.7-3.1 in September, hgb 9.5 to 10.2. platelts ok., cbc overall pretty stable over last year. Colonoscopy about a year ago Seen initially for evaluation. Notes no bleeding or black stool. Here for follow up , reviewed labs. All stable, probably not needing epo at this time. CrCl 55 CKD stage 3a CLINICAL IMPRESSION: Anemia, leukopenia mild, amy relates to prior prostate radiation, counts have been pretty stable over the past year or more. Suspect renal component of anemia. RECOMMENDATION/PLAN: 1. Aranesp today, recheck in 1 month with possible aranesp Written and verbal health teaching given to patient, patient verbalizes understanding and agrees with treatment plan. 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 Benign hypertension Bilateral leg pain CAD in [place] artery Centrilobular emphysema (HCC) CKD (chronic kidney disease) stage 3, GFR 30-59 ml/min (HCC) Diabetes mellitus (HCC) MAZARIEGOS (dyspnea on exertion) Dysuria Elevated brain natriuretic peptide (BNP) level Fatigue Fatty infiltration of liver Ground glass opacity present on imaging of lung History of echocardiogram 09/30/2017 EF 55-60% grade 1 diastolic dysfunction aortic valve bioprosthesis is present and functioning normally mild TR History of echocardiogram 08/18/2020 concentric LVH EF 55-60% grade 1 diastolic dysfunction mild MR History of echocardiogram 08/18/2020 EF 55-60% grade 1 diastolic dysfunction normally functioning bioprosthetic valve mean gradient 13mmHg mild MR History of stress test 08/22/2018 no evidence of ischemia or infarction abnormal septal motion EF 59% Lung nodule seen on imaging study Mixed hyperlipidemia Myalgia Obesity (BMI 30-39.9) ROBERT (obstructive sleep apnea) PMR (polymyalgia rheumatica) (HCC) Pulmonary fibrosis (HCC) 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 HUERTA to the LAD SVG to the circumflex SOB (shortness of breath) Venous insufficiency of both lower extremities Vitamin D deficiency PAST SURGICAL HISTORY Procedure Laterality Date CATARACT EXTRACTION HX Bilateral CORONARY ARTERY BYPASS GRAFT REVISE MEDIAN N/CARPAL TUNNEL SURG Right FAMILY HISTORY Problem Relation Age of Onset Heart Mother Heart Father Social History Tobacco Use Smoking status: Never Passive exposure: Never Smokeless tobacco: Never Vaping Use Vaping status: Never Used Substance Use Topics Alcohol use: Not Currently Drug use: Never ALLERGIES: ALLERGIES Allergen Reactions Rosuvastatin Myalgia CURRENT OUTPATIENT MEDICATIONS: leflunomide (ARAVA) 10 mg tablet Take 10 mg by mouth once daily. glimepiride (AMARYL) 1 mg tablet Take 1 mg by mouth two times a day with meals. CPAP daily at bedtime. SITagliptin-metFORMIN (JANUMET) 50-1,000 mg per tablet Take 1 tablet by mouth twice daily with meals. lisinopril (ZESTRIL, PRINIVIL) 40 mg tablet Take 40 mg by mouth once daily. Multivitamin capsule Take 1 capsule by mouth once daily. diphenhydrAMINE-Acetaminophen (TYLENOL PM EXTRA STRENGTH) 25-500 mg tab Take 2 tablets by mouth daily at bedtime. cholecalciferol (VITAMIN D-3) 50 mcg (2,000 unit) tablet Take 5,000 Units by mouth once daily. SITagliptin phosphate (JANUVIA) 25 mg tablet Take 25 mg by mouth once daily. (Patient not taking: Reported on 04/17/2025) ascorbic acid, vitamin C, (VITAMIN C) 500 mg tablet Take 500 mg by mouth once daily. (Patient not taking: Reported on 04/17/2025) ferrous sulfate (FEOSOL) 325 mg (65 mg iron) tablet 325 mg. (Patient not taking: Reported on 12/14/2024) mupirocin (BACTROBAN) 2 % ointment Apply 1 application to affected area three times a day. (Patient not taking: Reported on 12/14/2024) aspirin, enteric coated (ASPIRIN, ENTERIC COATED) 81 mg EC tablet Take 81 mg by mouth once daily. (Patient not taking: Reported on 12/14/2024) pantoprazole DR (PROTONIX) 40 mg tablet Take 40 mg by mouth once daily. (Patient not taking: Reported on 04/17/2025) hydrOXYchloroQUINE (PLAQUENIL) 200 mg tablet Take 200 mg by mouth two times a day. (Patient not taking: Reported on 12/14/2024) saw palmetto/pumpkin/pyg/Zn/B6 (SAW PALMETTO COMPLEX,PUMPK-ZN, ORAL) Take by (more content not included)...[facility]08-13-[facility] Evaluation note* Diagnosis Anemia, unspecified type- Primary Stage 3a chronic kidney disease (HCC) documented in [facility] encounter [facility]07[facility] Telephone encounter Note* Telephone Encounter - Xavi Jacques - 03/06/2025 1:38 PM EDT Patient's requested appointments have been canceled Xavi Ellison [facility]07-02-[facility] Miscellaneous Notes* Telephone Encounter - Xavi Jacques - 03/06/2025 1:38 PM EDT Patient's requested appointments have been canceled Xavi Ellison * Telephone Encounter - Heather Awan RN - 03/06/2025 12:05 PM EDT PSS: Please cancel upcoming appointments on 04/12/25. Patient will reach out if he wished to reschedule. Gaye Awan RN Called and spoke with Frannie at Dr. Adela Fleming office at [facility]. She is aware of conversationwith patient and he request cancellation of f/u appt. She ask if we can fax last 2 office note to her for Dr. Fleming to review. . These will be faxed today. Gaye Awan RN * Telephone Encounter - Heather Awan RN - 03/06/2025 11:57 AM EDT Received referral from PCP for anemia and records from [facility]. 02/26/25 Lab, Hgb 9.4, stable from previous labs with our office, 01/04/25 lab, Hgb 9.9. Patient is already established with Dr. Luque for anemia and has f/u 04/12/25. Call to patient and discussed above. He states that he has had anemia for several years and nothingseems to be helping. He was reminded of f/u with our office and offered a sooner appointment if he would like. He states, do I have to? I have so many bills right now This nurse let him know that it was his choice to come in or not but that Dr. Luque is monitoring his CBC and if it drops lower, he is considering a medication to help boost it back up. Patient states understanding but statesI will pass, will I be charged for passing Patient aware that I will cancel his f/u with our office and that there will not be a charge to him. Advised that he continue to follow with his PCP for la bs/anemia and can reschedule with our office at any time to discuss options with Dr. Luque. Patient thanked this nurse for calling and denies further questions/concerns. Gaye Awan RN [facility] Telephone encounter Note * Telephone Encounter - Heather Awan RN - 03/06/2025 12:05 PM EDT PSS: Please cancel upcoming appointments on 04/12/25. Patient will reach out if he wished to reschedule. Gaye Awan RN Called and spoke with Frannie at Dr. Adela Fleimng office at [facility]. She is aware of conversationwith patient and he request cancellation of f/u appt. She ask if we can fax last 2 office note to her for Dr. Fleming to review. . These will be faxed today. Gaye Awan RN [facility] Work Phone: [phone] Telephone encounter Note* Telephone Encounter - Heather Awan RN - 03/06/2025 11:57 AM EDT Received referral from PCP for anemia and records from [facility]. 02/26/25 Lab, Hgb 9.4, stable from previous labs with our office, 01/04/25 lab, Hgb 9.9. Patient is already established with Dr. Luque for anemia and has f/u 04/12/25. Call to patient and discussed above. He states that he has had anemia for several years and nothingseems to be helping. He was reminded of f/u with our office and offered a sooner appointment if he would like. He states, do I have to? I have so many bills right now This nurse let him know that it was his choice to come in or not but that Dr. Luque is monitoring his CBC and if it drops lower, he is considering a medication to help boost it back up. Patient states understanding but statesI will pass, will I be charged for passing Patient aware that I will cancel his f/u with our office and that there will not be a charge to him. Advised that he continue to follow with his PCP for la bs/anemia and can reschedule with our office at any time to discuss options with Dr. Luque. Patient thanked this nurse for calling and denies further questions/concerns. Gaye Awan RN [facility] Note* Exam Date Time Procedure Performing Provider Status 03/06/25 10:[address] Head or Brain w/o Contrast Yovani RUVALCABA MD; Auth (Verified) [id number] ORIGINAL EXAMINATION: CT OF THE HEAD WITHOUT CONTRAST 03/06/2025 10:12 am TECHNIQUE: CT of the head was performed without the administration of intravenous contrast. Automated exposure control, iterative reconstruction, and/or weight based adjustment of the mA/kV was utilized to reduce the radiation dose to as low as reasonably achievable. COMPARISON: MRI brain 09/08/2024. HISTORY: ORDERING SYSTEM PROVIDED HISTORY: Reason for Exam: DISORIENTATION FINDINGS: BRAIN/VENTRICLES: The ventricles and sulci are enlarged. Patchy areas of decreased attenuation are present in the periventricular white matter bilaterally. No mass, hemorrhage or large vessel infarct. No extra-axial fluid collection. 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 SINUSES: The visualized paranasal sinuses and mastoid air cells demonstrate no acute abnormality. SOFT TISSUES/SKULL: No acute abnormality of the visualized skull or soft tissues. IMPRESSION: No acute findings. No significant interval change. Interpreted by: Mariel Ruvalcaba Preliminary Report By: Mariel Ruvalcaba Electronically signed By Mariel Ruvalcaba Dictated Date: 03/06/2025 10:15:52 AM Prelim Date: 03/06/2025 10:19:54 AM Sign Date: 03/06/2025 10:19:54 AM Ordering Provider: JAKI FLEMING Interpreted by: Mariel Ruvalcaba Preliminary Report By: Mariel Ruvalcaba Electronically signed By Mariel Ruvalcaba Dictated Date: 03/06/2025 10:15:52 AM Prelim Date: 03/06/2025 10:19:54 AM Sign Date: 03/06/2025 10:19:54 AM Ordering Provider: JAKI FLEMING [facility]05-02-2025 NoteHNO ID: [id number] Author: HA LUQUE MD Service: ? Author Type: Physician Type: Progress Notes Filed: 01/04/2025 10:38 Note Text: (Elements copied from my note dated December 14, 2024, have been reviewed and updated where appropriate, and all reflect current assessment and medical decision making from today's encounter, January 04, 2025) HISTORY OF PRESENT ILLNESS: Jaylen Galaviz is a 89 year old male referred for pancytopenia. Had RT to prostate 2022 [facility]. WBC 2.7-3.1 in September, hgb 9.5 to 10.2. platelts ok., cbc overall pretty stable over last year. Colonoscopy about a year ago Seen initially for evaluation. Notes no bleeding or black stool. Here for follow up , reviewed labs. All stable, probably not needing epo at this time. CrCl 55 CKD stage 3a CLINICAL IMPRESSION: Anemia, leukopenia mild, likley relates to prior prostate radiation, counts have been pretty stable over the past year or more. RECOMMENDATION/PLAN: 1. Back in 3 months with cbc, possible aranesp if hgb gets much lower Written and verbal health teaching given to patient, patient verbalizes understanding and agrees with treatment plan. 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 Benign hypertension Bilateral leg pain CAD in [place] artery Centrilobular emphysema (HCC) CKD (chronic kidney disease) stage 3, GFR 30-59 ml/min (HCC) Diabetes mellitus (HCC) MAZARIEGOS (dyspnea on exertion) Dysuria Elevated brain natriuretic peptide (BNP) level Fatigue Fatty infiltration of liver Ground glass opacity present on imaging of lung History of echocardiogram 09/30/2017 EF 55-60% grade 1 diastolic dysfunction aortic valve bioprosthesis is present and functioning normally mild TR History of echocardiogram 08/18/2020 concentric LVH EF 55-60% grade 1 diastolic dysfunction mild MR History of echocardiogram 08/18/2020 EF 55-60% grade 1 diastolic dysfunction normally functioning bioprosthetic valve mean gradient 13mmHg mild MR History of stress test 08/22/2018 no evidence of ischemia or infarction abnormal septal motion EF 59% Lung nodule seen on imaging study Mixed hyperlipidemia Myalgia Obesity (BMI 30-39.9) ROBERT (obstructive sleep apnea) PMR (polymyalgia rheumatica) ([facility]) Pulmonary fibrosis ([facility]) 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 [place] 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 HUERTA to the LAD SVG to the circumflex SOB (shortness of breath) Venous insufficiency of both lower extremities Vitamin D deficiency PAST SURGICAL HISTORY Procedure Laterality Date CATARACT EXTRACTION HX Bilateral CORONARY ARTERY BYPASS GRAFT REVISE MEDIAN N/CARPAL TUNNEL SURG Right FAMILY HISTORY Problem Relation Age of Onset Heart Mother Heart Father Social History Tobacco Use Smoking status: Never Passive exposure: Never Smokeless tobacco: Never Vaping Use Vaping status: Never Used Substance Use Topics Alcohol use: Not Currently Drug use: Never ALLERGIES: ALLERGIES Allergen Reactions Rosuvastatin Myalgia CURRENT OUTPATIENT MEDICATIONS: SITagliptin phosphate (JANUVIA) 25 mg tablet Take 25 mg by mouth once daily. ascorbic acid, vitamin C, (VITAMIN C) 500 mg tablet Take 500 mg by mouth once daily. leflunomide (ARAVA) 10 mg tablet Take 10 mg by mouth once daily. glimepiride (AMARYL) 1 mg tablet Take 1 mg by mouth two times a day with meals. CPAP daily at bedtime. lisinopril (ZESTRIL, PRINIVIL) 40 mg tablet Take 40 mg by mouth once daily. Multivitamin capsule Take 1 capsule by mouth once daily. pantoprazole DR (PROTONIX) 40 mg tablet Take 40 mg by mouth once daily. diphenhydrAMINE-Acetaminophen (TYLENOL PM EXTRA STRENGTH) 25-500 mg tab Take 2 tablets by mouth daily at bedtime. cholecalciferol (VITAMIN D-3) 50 mcg (2,000 unit) tablet Take 5,000 Units by mouth once daily. ferrous sulfate (FEOSOL) 325 mg (65 mg iron) tablet 325 mg. (Patient not taking: Reported on 12/14/2024) mupirocin (BACTROBAN) 2 % ointment Apply 1 application to affected area three times a day. (Patient not taking: Reported on 12/14/2024) aspirin, enteric coated (ASPIRIN, ENTERIC COATED) 81 mg EC tablet Take 81 mg by mouth once daily. (Patient not taking: Reported on 12/14/2024) SITagliptin-metFORMIN (JANUMET) 50-1,000 mg per tablet Take 1 tablet by mouth twice daily with meals. (Patient not taking: Reported on 12/14/2024) hydrOXYchloroQUINE (PLAQUENIL) 200 mg tablet Take 200 mg by mouth two times a day. (Patient not taking: Reported on 12/14/2024) saw palmetto/pumpkin/pyg/Zn/B6 (SAW PALMET[place] COMPLEX,PUMPK-ZN, ORAL) Take by mouth once daily. (Patient not taking: Reported on 12/14/2024) Vitamin E, dl, acetate, (VITAMIN E) 400 unit capsule Ta (more content not included)...[facility] of Present illness Narrative* Ha Luque MD - 01/04/2025 10:20 AM EDT (Elements copied from my note dated December 14, 2024, have been reviewed and updated where appropriate, and all reflect current assessment and medical decision making from today's encounter, January 04, 2025) HISTORY OF PRESENT ILLNESS: Jaylen Galaviz is a 89 year old male referred for pancytopenia. Had RT to prostate 2022 [facility]. WBC 2.7-3.1 in September, hgb 9.5 to 10.2. platelts ok., cbc overall pretty stable over last year. Colonoscopy about a year ago Seen initially for evaluation. Notes no bleeding or black stool. Here for follow up , reviewed labs. All stable, probably not needing epo at this time. CrCl 55 CKD stage 3a CLINICAL IMPRESSION: Anemia, leukopenia mild, likley relates to prior prostate radiation, counts have been pretty stableover the past year or more. RECOMMENDATION/PLAN: 1. Back in 3 months with cbc, possible aranesp if hgb gets much lower Written and verbal health teaching given to patient, patient verbalizes understanding and agrees with treatment plan. 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 Benign hypertension Bilateral leg pain CAD in [place] artery Centrilobular emphysema (HCC) CKD (chronic kidney disease) stage 3, GFR 30-59 ml/min (HCC) Diabetes mellitus (HCC) MAZARIEGOS (dyspnea on exertion) Dysuria Elevated brain natriuretic peptide (BNP) level Fatigue Fatty infiltration of liver Ground glass opacity present on imaging of lung History of echocardiogram 09/30/2017 EF 55-60% grade 1 diastolic dysfunction aortic valve bioprosthesis is present and functioning normally mild TR History of echocardiogram 08/18/2020 concentric LVH EF 55-60% grade 1 diastolic dysfunction mild MR History of echocardiogram 08/18/2020 EF 55-60% grade 1 diastolic dysfunction normally functioning bioprosthetic valve mean gradient 13mmHg mild MR History of stress test 08/22/2018 no evidence of ischemia or infarction abnormal septal motion EF 59% Lung nodule seen on imaging study Mixed hyperlipidemia Myalgia Obesity (BMI 30-39.9) ROBERT (obstructive sleep apnea) PMR (polymyalgia rheumatica) (HCC) Pulmonary fibrosis (HCC) 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 [place] 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 HUERTA to the LAD SVG to the circumflex SOB (shortness of breath) Venous insufficiency of both lower extremities Vitamin D deficiency PAST SURGICAL HISTORY Procedure Laterality Date CATARACT EXTRACTION HX Bilateral CORONARY ARTERY BYPASS GRAFT REVISE MEDIAN N/CARPAL TUNNEL SURG Right FAMILY HISTORY Problem Relation Age of Onset Heart Mother Heart Father Social History Tobacco Use Smoking status: Never Passive exposure: Never Smokeless tobacco: Never Vaping Use Vaping status: Never Used Substance Use Topics Alcohol use: Not Currently Drug use: Never ALLERGIES: ALLERGIES Allergen Reactions Rosuvastatin Myalgia CURRENT OUTPATIENT MEDICATIONS: SITagliptin phosphate (JANUVIA) 25 mg tablet Take 25 mg by mouth once daily. ascorbic acid, vitamin C, (VITAMIN C) 500 mg tablet Take 500 mg by mouth once daily. leflunomide (ARAVA) 10 mg tablet Take 10 mg by mouth once daily. glimepiride (AMARYL) 1 mg tablet Take 1 mg by mouth two times a day with meals. CPAP daily at bedtime. lisinopril (ZESTRIL, PRINIVIL) 40 mg tablet Take 40 mg by mouth once daily. Multivitamin capsule Take 1 capsule by mouth once daily. pantoprazole DR (PROTONIX) 40 mg tablet Take 40 mg by mouth once daily. diphenhydrAMINE-Acetaminophen (TYLENOL PM EXTRA STRENGTH) 25-500 mg tab Take 2 tablets by mouth daily at bedtime. cholecalciferol (VITAMIN D-3) 50 mcg (2,000 unit) tablet Take 5,000 Units by mouth once daily. ferrous sulfate (FEOSOL) 325 mg (65 mg iron) tablet 325 mg. (Patient not taking: Reported on 12/14/2024) mupirocin (BACTROBAN) 2 % ointment Apply 1 application to affected area three times a day. (Patientnot taking: Reported on 12/14/2024) aspirin, enteric coated (ASPIRIN, ENTERIC COATED) 81 mg EC tablet Take 81 mg by mouth once daily. (Patient not taking: Reported on 12/14/2024) SITagliptin-metFORMIN (JANUMET) 50-1,000 mg per tablet Take 1 tablet by mouth twice daily with meals. (Patient not taking: Reported on 12/14/2024) hydrOXYchloroQUINE (PLAQUENIL) 200 mg tablet Take 200 mg by mouth two times a day. (Patient not taking: Reported on 12/14/2024) saw palmetto/pumpkin/pyg/Zn/B6 (SAW PALMETTO COMPLEX,PUMPK-ZN, ORAL) Take by mouth once daily. (Patient not taking: Reported on 12/14/2024) Vitamin E, dl, acetate, (VITAMIN E) 400 unit capsule Take 400 Units by mouth once daily. (Patient not taking: Reported on 12/14/2024) REVIEW OF SYSTEMS: GENERAL: No fever, night sweats, weight loss or malaise. All other reviewed and negative other than HPI. PHYSICAL EXAMINATION: VITAL SIGNS: BP 156/70 Pulse 56 Temp (Src) 97 (Temporal) Wt 205 lb (93.0kg) SpO2 97% GENERAL APPEARANCE: Well appearing, in no acute distress, alert and oriented x3, well-hydrated, well nourished. I spent a total of 20 minutes on the date of the service which included preparing to see the patient, [id number] patient care, completing clinical documentation, obtaining and/or reviewing separately obtained history, counseling and educating the patient/family/caregiver, ordering medications, shekhar ts, or procedures, independently interpreting results (not separately reported), and communicating results to the patient/family/caregiver. Electronically Signed: Ha Luque MD January 04, 2025 [facility]25 NoteHNO ID: [id number] Author: HA LUQUE MD Service: ? Author Type: Physician Type: Progress Notes Filed: 12/14/2024 13:28 Note Text: HISTORY OF PRESENT ILLNESS: Jaylen Galaviz is a 89 year old male referred for pancytopenia. Had RT to prostate 2022 [facility]. WBC 2.7-3.1 in September, hgb 9.5 to 10.2. platelts ok., cbc overall pretty stable over last year. Colonoscopy about a year ago Here for evaluation. Notes no bleeding or black stool. CLINICAL IMPRESSION: Anemia, leukopenia mild, likley relates to prior prostate radiation, counts have been pretty stable over the past year or more. RECOMMENDATION/PLAN: 1. Will check labs today assess role of rhEPO 2. Otherwise plan to watch cbc Written and verbal health teaching given to patient, patient verbalizes understanding and agrees with treatment plan. 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 Benign hypertension Bilateral leg pain CAD in [place] artery Centrilobular emphysema (HCC) CKD (chronic kidney disease) stage 3, GFR 30-59 ml/min (HCC) Diabetes mellitus (HCC) MAZARIEGOS (dyspnea on exertion) Dysuria Elevated brain natriuretic peptide (BNP) level Fatigue Fatty infiltration of liver Ground glass opacity present on imaging of lung History of echocardiogram 09/30/2017 EF 55-60% grade 1 diastolic dysfunction aortic valve bioprosthesis is present and functioning normally mild TR History of echocardiogram 08/18/2020 concentric LVH EF 55-60% grade 1 diastolic dysfunction mild MR History of echocardiogram 08/18/2020 EF 55-60% grade 1 diastolic dysfunction normally functioning bioprosthetic valve mean gradient 13mmHg mild MR History of stress test 08/22/2018 no evidence of ischemia or infarction abnormal septal motion EF 59% Lung nodule seen on imaging study Mixed hyperlipidemia Myalgia Obesity (BMI 30-39.9) ROBERT (obstructive sleep apnea) PMR (polymyalgia rheumatica) ([facility]) Pulmonary fibrosis ([facility]) 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 [place] 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 HUERTA to the LAD SVG to the circumflex SOB (shortness of breath) Venous insufficiency of both lower extremities Vitamin D deficiency History reviewed. No pertinent surgical history. FAMILY HISTORY Problem Relation Age of Onset Heart Mother Heart Father Social History Tobacco Use Smoking status: Never Passive exposure: Never Smokeless tobacco: Never Vaping Use Vaping status: Never Used Substance Use Topics Alcohol use: Not Currently Drug use: Never ALLERGIES: ALLERGIES Allergen Reactions Rosuvastatin Myalgia CURRENT OUTPATIENT MEDICATIONS: SITagliptin phosphate (JANUVIA) 25 mg tablet Take 25 mg by mouth once daily. ascorbic acid, vitamin C, (VITAMIN C) 500 mg tablet Take 500 mg by mouth once daily. leflunomide (ARAVA) 10 mg tablet Take 10 mg by mouth once daily. glimepiride (AMARYL) 1 mg tablet Take 1 mg by mouth two times a day with meals. CPAP daily at bedtime. lisinopril (ZESTRIL, PRINIVIL) 40 mg tablet Take 40 mg by mouth once daily. Multivitamin capsule Take 1 capsule by mouth once daily. pantoprazole DR (PROTONIX) 40 mg tablet Take 40 mg by mouth once daily. diphenhydrAMINE-Acetaminophen (TYLENOL PM EXTRA STRENGTH) 25-500 mg tab Take 2 tablets by mouth daily at bedtime. cholecalciferol (VITAMIN D-3) 50 mcg (2,000 unit) tablet Take 5,000 Units by mouth once daily. ferrous sulfate (FEOSOL) 325 mg (65 mg iron) tablet 325 mg. (Patient not taking: Reported on 12/14/2024) mupirocin (BACTROBAN) 2 % ointment Apply 1 application to affected area three times a day. (Patient not taking: Reported on 12/14/2024) aspirin, enteric coated (ASPIRIN, ENTERIC COATED) 81 mg EC tablet Take 81 mg by mouth once daily. (Patient not taking: Reported on 12/14/2024) SITagliptin-metFORMIN (JANUMET) 50-1,000 mg per tablet Take 1 tablet by mouth twice daily with meals. (Patient not taking: Reported on 12/14/2024) hydrOXYchloroQUINE (PLAQUENIL) 200 mg tablet Take 200 mg by mouth two times a day. (Patient not taking: Reported on 12/14/2024) saw palmetto/pumpkin/pyg/Zn/B6 (SAW PALMETTO COMPLEX,PUMPK-ZN, ORAL) Take by mouth once daily. (Patient not taking: Reported on 12/14/2024) Vitamin E, dl, acetate, (VITAMIN E) 400 unit capsule Take 400 Units by mouth once daily. (Patient not taking: Reported on 12/14/2024) REVIEW OF SYSTEMS: GENERAL: No fever, night sweats, weight loss or malaise. All other reviewed and negative other than HPI. PHYSICAL EXAMINATION: VITAL SIGNS: BP 167/64 Pulse 66 Temp (Src) 97.2 (Temporal) Ht 5' 10 (1.78m) Wt 210 lb (95.3kg) SpO2 96% BMI 30.13 kg/(m2). GENERAL APPEARANCE: Well appearing, in no acute distress, a (more content not included)...[facility]04-11-2025 History of Present illness Narrative* aH Luque MD - 12/14/2024 1:05 PM EDT HISTORY OF PRESENT ILLNESS: Jaylen Galaviz is a 89 year old male referred for pancytopenia. Had RT to prostate 2022 [facility]. WBC 2.7-3.1 in September, hgb 9.5 to 10.2. platelts ok., cbc overall pretty stable over last year. Colonoscopy about a year ago Here for evaluation. Notes no bleeding or black stool. CLINICAL IMPRESSION: Anemia, leukopenia mild, amy relates to prior prostate radiation, counts have been pretty stableover the past year or more. RECOMMENDATION/PLAN: 1. Will check labs today assess role of rhEPO 2. Otherwise plan to watch cbc Written and verbal health teaching given to patient, patient verbalizes understanding and agrees with treatment plan. 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 Benign hypertension Bilateral leg pain CAD in [place] artery Centrilobular emphysema (HCC) CKD (chronic kidney disease) stage 3, GFR 30-59 ml/min (HCC) Diabetes mellitus (HCC) MAZARIEGOS (dyspnea on exertion) Dysuria Elevated brain natriuretic peptide (BNP) level Fatigue Fatty infiltration of liver Ground glass opacity present on imaging of lung History of echocardiogram 09/30/2017 EF 55-60% grade 1 diastolic dysfunction aortic valve bioprosthesis is present and functioning normally mild TR History of echocardiogram 08/18/2020 concentric LVH EF 55-60% grade 1 diastolic dysfunction mild MR History of echocardiogram 08/18/2020 EF 55-60% grade 1 diastolic dysfunction normally functioning bioprosthetic valve mean gradient 13mmHg mild MR History of stress test 08/22/2018 no evidence of ischemia or infarction abnormal septal motion EF 59% Lung nodule seen on imaging study Mixed hyperlipidemia Myalgia Obesity (BMI 30-39.9) ROBERT (obstructive sleep apnea) PMR (polymyalgia rheumatica) (HCC) Pulmonary fibrosis (HCC) 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 St 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 HUERTA to the LAD SVG to the circumflex SOB (shortness of breath) Venous insufficiency of both lower extremities Vitamin D deficiency History reviewed. No pertinent surgical history. FAMILY HISTORY Problem Relation Age of Onset Heart Mother Heart Father Social History Tobacco Use Smoking status: Never Passive exposure: Never Smokeless tobacco: Never Vaping Use Vaping status: Never Used Substance Use Topics Alcohol use: Not Currently Drug use: Never ALLERGIES: ALLERGIES Allergen Reactions Rosuvastatin Myalgia CURRENT OUTPATIENT MEDICATIONS: SITagliptin phosphate (JANUVIA) 25 mg tablet Take 25 mg by mouth once daily. ascorbic acid, vitamin C, (VITAMIN C) 500 mg tablet Take 500 mg by mouth once daily. leflunomide (ARAVA) 10 mg tablet Take 10 mg by mouth once daily. glimepiride (AMARYL) 1 mg tablet Take 1 mg by mouth two times a day with meals. CPAP daily at bedtime. lisinopril (ZESTRIL, PRINIVIL) 40 mg tablet Take 40 mg by mouth once daily. Multivitamin capsule Take 1 capsule by mouth once daily. pantoprazole DR (PROTONIX) 40 mg tablet Take 40 mg by mouth once daily. diphenhydrAMINE-Acetaminophen (TYLENOL PM EXTRA STRENGTH) 25-500 mg tab Take 2 tablets by mouth daily at bedtime. cholecalciferol (VITAMIN D-3) 50 mcg (2,000 unit) tablet Take 5,000 Units by mouth once daily. ferrous sulfate (FEOSOL) 325 mg (65 mg iron) tablet 325 mg. (Patient not taking: Reported on 12/14/2024) mupirocin (BACTROBAN) 2 % ointment Apply 1 application to affected area three times a day. (Patientnot taking: Reported on 12/14/2024) aspirin, enteric coated (ASPIRIN, ENTERIC COATED) 81 mg EC tablet Take 81 mg by mouth once daily. (Patient not taking: Reported on 12/14/2024) SITagliptin-metFORMIN (JANUMET) 50-1,000 mg per tablet Take 1 tablet by mouth twice daily with meals. (Patient not taking: Reported on 12/14/2024) hydrOXYchloroQUINE (PLAQUENIL) 200 mg tablet Take 200 mg by mouth two times a day. (Patient not taking: Reported on 12/14/2024) saw palmetto/pumpkin/pyg/Zn/B6 (SAW PALMETTO COMPLEX,PUMPK-ZN, ORAL) Take by mouth once daily. (Patient not taking: Reported on 12/14/2024) Vitamin E, dl, acetate, (VITAMIN E) 400 unit capsule Take 400 Units by mouth once daily. (Patient not taking: Reported on 12/14/2024) REVIEW OF SYSTEMS: GENERAL: No fever, night sweats, weight loss or malaise. All other reviewed and negative other than HPI. PHYSICAL EXAMINATION: VITAL SIGNS: BP 167/64 Pulse 66 Temp (Src) 97.2 (Temporal) Ht 5' 10 (1.78m) Wt 210 lb (95.3kg) SpO2 96% BMI 30.13 kg/(m^2). GENERAL APPEARANCE: Well appearing, in no acute distress, alert and oriented x3, well-hydrated, well nourished. I spent a total of 30 minutes on the date of the service which included preparing to see the patient, [id number] patient care, completing clinical documentation, obtaining and/or reviewing separately obtained history, counseling and educating the patient/family/caregiver, ordering medications, shekhar ts, or procedures, independently interpreting results (not separately reported), and communicating results to the patient/family/caregiver. Electronically Signed: Ha Luque MD December 14, 2024 1:05 PM documented in [facility] encounterMag[facility]03-[facility] Telephone encounter Note * Telephone Encounter - Paulette Mckeon - 12/03/2024 9:14 AM EDT Scheduled with patient [facility] Work Phone: [phone]) 716-888603-31-2025 Miscellaneous Notes* Telephone Encounter - Paulette Mckeon - 12/03/2024 9:14 AM EDT Scheduled with patient * Telephone Encounter - Shilpa Trivedi - 11/28/2024 11:12 AM EDT Lvm for patient to return the call. 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 LONNIE POLLACK* Shilpa Trivedi documented in this encounterMagruder Hospital03-27-2025 Instructions* Patient Instructions* 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 APRN.CNP - 11/29/2024 12:03 PM EDT OK to resume therapy. Follow printed instructions from Up to date. Follow up with PCP if no improvement in 1-2 weeks documented in this encounterMagruder Hospital03-27-2025 History of Present illness Narrative* Doug Hansen RT(R) - 11/29/2024 11:40 AM EDT Radiology Service Progress Note PATIENT NAME: Jaylen Galaviz DATE OF SERVICE: November 29, 2024 TIME: 12:05 PM PATIENT IDENTITY VERIFICATION COMPLETED USING TWO (2) IDENTIFIERS: Name and Date of confirmedby patient verbally. FALL SCREENING: Has the patient had 2 falls in the last year or 1 fall with injury or currently using an Ambulatory Assistive Device (Walker, Cane, Wheelchair, Crutches, etc.)? No PATIENT GENDER DATA: Assigned male at PATIENT RELEVANT IMPLANT DATA REVIEWED: Not Applicable PATIENT PRESENTS WITH AN IMPLANTABLE OR ATTACHED TRIMMER LOADER: No RADIOLOGY DEPARTMENT: General X-ray: Exam(s) Completed: Upper Extremity X- Ray(s): Humerus, left PERIPHERAL IV DATA: Not applicable SIGNED BY: RT Vasu(R) November 29, 2024 12:05 PM documented in this encounterMagruder Hospital03-27-2025 NoteHNO ID: [id number] Author: DOUG HANSEN RT(Kaycee) Service: ? Author Type: Technologist Type: Progress Notes Filed: 11/29/2024 12:05 Note Text: Radiology Service Progress Note PATIENT NAME: Jaylen Galaviz DATE OF SERVICE: November 29, 2024 TIME: 12:05 PM PATIENT IDENTITY VERIFICATION COMPLETED USING TWO (2) IDENTIFIERS: Name and Date of confirmed by patient verbally. FALL SCREENING: Has the patient had 2 falls in the last year or 1 fall with injury or currently using an Ambulatory Assistive Device (Walker, Cane, Wheelchair, Crutches, etc.)? No PATIENT GENDER DATA: Assigned male at PATIENT RELEVANT IMPLANT DATA REVIEWED: Not Applicable PATIENT PRESENTS WITH AN IMPLANTABLE OR ATTACHED TRIMMER LOADER: No RADIOLOGY DEPARTMENT: General X-ray: Exam(s) Completed: Upper Extremity X-Ray(s): Humerus, left PERIPHERAL IV DATA: Not applicable SIGNED BY: RT Vasu(R) November 29, 2024 12:05 [facility]-27-[facility]25 NoteHNO ID: [id number] Author: FABIOLA CROSS APRN.MINDY Service: ? Author Type: Nurse Practitioner Type: Progress Notes Filed: 11/29/2024 12:58 Note Text: [facility] [place] Subjective Jaylen Galaviz is a 89 year old male. Patient presents with: left upper arm pain: Patient states 6 days ago he fell off his tractor and went to catch himself - he is now having left upper arm pain Fell off tractor last week. And grabbed a bar to catch himself and pulled his arm. He did break that arm years ago. At first could not lift arm. He has been nursing it himself over the last week. Wrapped in delvin wrap. He went to his weekly therapy that he goes to help with conditioning wanted his arm evaluated. . Review of Systems HENT: Negative. Musculoskeletal: Positive for joint swelling and myalgias. Negative for neck pain and neck stiffness. Neurological: Negative. All other systems reviewed and are negative. Objective BP 132/64 Pulse 94 Temp 36.7 ?C (98.1 ?F) (Temporal) Resp 18 Wt 92.5 kg (204 lb) SpO2 98% BMI 28.45 kg/m? Physical Exam Vitals and nursing note reviewed. Constitutional: General: He is not in acute distress. Appearance: Normal appearance. He is not ill-appearing. Eyes: Extraocular Movements: Extraocular movements intact. Conjunctiva/sclera: Conjunctivae normal. Pupils: Pupils are equal, round, and reactive to light. Cardiovascular: Rate and Rhythm: Normal rate. Pulses: Normal pulses. Pulmonary: Effort: Pulmonary effort is normal. Musculoskeletal: General: Tenderness present. No swelling, deformity or signs of injury. Normal range of motion. Right shoulder: Normal. Left shoulder: No swelling or tenderness. Decreased strength. Normal pulse. Left upper arm: No swelling, edema, deformity, lacerations, tenderness or bony tenderness. Arms: Left lower leg: No edema. Comments: Empty can slightly decreased strength on left. No obvious deformity, pinpoint pain , ecchymosis or laxity. Skin: General: Skin is warm and dry. Capillary Refill: Capillary refill takes 2 to 3 seconds. Neurological: General: No focal deficit present. Mental Status: He is alert and oriented to person, place, and time. Cranial Nerves: No cranial nerve deficit. Sensory: No sensory deficit. Motor: No weakness. Coordination: Coordination normal. ASSESSMENT/PLAN: 1. Injury of left upper arm, initial encounter - ICD9: 959.2, ICD10: S49.92XA (primary diagnosis) - XR HUMERUS 2V AP/LAT LEFT- no acute finding. Bone mineralization is decreased. Slight cortical irregularity in the mid humeral shaft laterally is related to the deltoid attachment. There is no fracture or dislocation. Degenerative changes are present in the shoulder. 2. Biceps tendonitis on left - ICD9: 726.12, ICD10: M75.22 Discussed with patient regarding diagnosis and treatment. He will continue to wrap for comfort and tyelnol as needed. He will go to his therapist to discuss any additional exercised to aid in healing. He should refrain from lifting until healed and feeling better. Pt agreed with plan and discharged kailey Cross APRN.DAYTIME CAREGIVER [facility]03-27-2025 History of Present illness Narrative* 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 APRN.MINDY - 11/29/2024 11:06 AM EDT Images from the original note were not included. [facility] Galaviz is a 89 year old male. Patient presents with: left upper arm pain: Patient states 6 days ago he fell off his tractor and went to catch himself - he is now having left upper arm pain Fell off tractor last week. And grabbed a bar to catch himself and pulled his arm. He did break that arm years ago. At first could not lift arm. He has been nursing it himself over the last week. Wrapped in delvin wrap. He went to his weekly therapy that he goes to help with conditioning wanted his arm evaluated. . Review of Systems HENT: Negative. Musculoskeletal: Positive for joint swelling and myalgias. Negative for neck pain and neck stiffness. Neurological: Negative. All other systems reviewed and are negative. Objective BP 132/64 Pulse 94 Temp 36.7 C (98.1 F) (Temporal) Resp 18 Wt 92.5 kg (204 lb) SpO2 98% BMI 28.45 kg/m Physical Exam Vitals and nursing note reviewed. Constitutional: General: He is not in acute distress. Appearance: Normal appearance. He is not ill-appearing. Eyes: Extraocular Movements: Extraocular movements intact. Conjunctiva/sclera: Conjunctivae normal. Pupils: Pupils are equal, round, and reactive to light. Cardiovascular: Rate and Rhythm: Normal rate. Pulses: Normal pulses. Pulmonary: Effort: Pulmonary effort is normal. Musculoskeletal: General: Tenderness present. No swelling, deformity or signs of injury. Normal range of motion. Right shoulder: Normal. Left shoulder: No swelling or tenderness. Decreased strength. Normal pulse. Left upper arm: No swelling, edema, deformity, lacerations, tenderness or bony tenderness. Arms: Left lower leg: No edema. Comments: Empty can slightly decreased strength on left. No obvious deformity, pinpoint pain , ecchymosis or laxity. Skin: General: Skin is warm and dry. Capillary Refill: Capillary refill takes 2 to 3 seconds. Neurological: General: No focal deficit present. Mental Status: He is alert and oriented to person, place, and time. Cranial Nerves: No cranial nerve deficit. Sensory: No sensory deficit. Motor: No weakness. Coordination: Coordination normal. ASSESSMENT/PLAN: 1. Injury of left upper arm, initial encounter - ICD9: 959.2, ICD10: S49.92XA (primary diagnosis) - XR HUMERUS 2V AP/LAT LEFT- no acute finding. Bone mineralization is decreased. Slight cortical irregularity in the mid humeral shaft laterally is related to the deltoid attachment. There is no fracture or dislocation. Degenerative changes are present in the shoulder. 2. Biceps tendonitis on left - ICD9: 726.12, ICD10: M75.22 Discussed with patient regarding diagnosis and treatment. He will continue to wrap for comfort and tyelnol as needed. He will go to his therapist to discuss any additional exercised to aid in healing. He should refrain from lifting until healed and feeling better. Pt agreed with plan and discharged kailey Cross APRN.DAYTIME CAREGIVER MDM Procedures * Chelita Lawson LPN - 11/29/2024 10:57 AM EDT Patient unable to verify medication list at this time. Chelita Lawson LPN documented in this encounterMagruder Hospital03-27-2025 NoteHNO ID: [id number] Author: CHELITA LAWSON LPN Service: ? Author Type: LICENSED NURSE Type: Progress Notes Filed: 11/29/2024 12:58 Note Text: Patient unable to verify medication list at this time. [facility] Telephone encounter Note* Telephone Encounter - Shilpa Trivedi - 11/28/2024 11:12 AM EDT Lvm for patient to return the call. 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 LONNIE POLLACK* Shilpa Trivedi [facility]02-12[facility] Note* Exam Date Time Procedure Performing Provider Status 10/17/24 8:36 AM Transesophageal Echo cardiogram - CV MILLIE IRVIN MD; [facility]Verified[id number] Note. MICRO - Microbiology PROCEDURE: Blood Culture (bacterial) [O1 *1] SOURCE: Blood BODY SITE: COLLECTED DATE/TIME: 09/17/2024 12:36 EST RECEIVED DATE/TIME: 09/17/2024 19:47 EST START DATE/TIME: 09/17/2024 19:47 EST FREE TEXT SOURCE: FINAL REPORTS Final Report [] Verified Date/Time/Personnel: 09/22/2024 19:59 EST Blood Culture: No Growth at 5 days. PRELIMINARY REPORTS Preliminary Report [] Verified Date/Time/Personnel: 09/17/2024 20:59 EST Culture has been received in lab and is no growth to date. Routine cultures are held for 5 days. Order Comments O1: Blood Culture (bacterial) two different sites Performing Locations *1: This test was performed at: [address], [address] [place], [place] [address]-18-2025 Note. MICRO - Microbiology PROCEDURE: Blood Culture (bacterial) [O1 *1] SOURCE: Blood BODY SITE: COLLECTED DATE/TIME: 09/17/2024 12:36 EST RECEIVED DATE/TIME: 09/17/2024 19:47 EST START DATE/TIME: 09/17/2024 19:47 EST FREE TEXT SOURCE: FINAL REPORTS Final Report [] Verified Date/Time/Personnel: 09/22/2024 19:59 EST Blood Culture: No Growth at 5 days. PRELIMINARY REPORTS Preliminary Report [] Verified Date/Time/Personnel: 09/17/2024 20:59 EST Culture has been received in lab and is no growth to date. Routine cultures are held for 5 days. Order Comments O1: Blood Culture (bacterial) two different sites Performing Locations *1: This test was performed at: [address]01-05-2025 Hospital Discharge instructions Patient Education 09/09/2024 13:36:03 Stroke Prevention, [id number] Stroke Prevention Some medical conditions and lifestyle choices can lead to a higher risk for a stroke. You can help to prevent a stroke by making nutrition, lifestyle, and other changes. What nutrition changes can be made? Eat healthy foods. ?Choose foods that are high in fiber. These include: ?Fresh fruits. ?Fresh vegetables. ?Whole grains. ?Eat at least 5 or more servings of fruits and vegetables each day. Try to fill half of your plate at each meal with fruits and vegetables. ?Choose lean protein foods. These include: ?Lowfat (lean) cuts of meat. ?Chicken without skin. ?Fish. ?Tofu. ?Beans. ?Nuts. ?Eat low-fat dairy products. ?Avoid foods that: ?Are high in salt (sodium). ?Have saturated fat. ?Have trans fat. ?Have cholesterol. ?Are processed. ?Are premade. Follow eating guidelines as told by your doctor. These may include: ?Reducing how many calories you eat and drink each day. ?Limiting how much salt you eat or drink each day to 1,500 milligrams (mg). ?Using only healthy fats for cooking. These include: ?Orange oil. ?Canola oil. ?Roy oil. ?Counting how many carbohydrates you eat and drink each day. What lifestyle changes can be made? Try to stay at a healthy weight. Talk to your doctor about what a good weight is for you. Get at least 30 minutes of moderate physical activity at least 5 days a week. This can include: ?Fast walking. ?Biking. ?Swimming. Do not use any products that have nicotine or tobacco. This includes cigarettes and e-cigarettes. If you need help quitting, ask your doctor. Avoid being around tobacco smoke in general. Limit how much alcohol you drink to no more than 1 drink a day for non women and 2 drinks aday for men. One drink equals 12 oz of beer, 5 oz of wine, or 1 oz of hard liquor. Do not use drugs. Avoid taking control pills. Talk to your doctor about the risks of taking control pillsif: ?You are over 35 years old. ?You smoke. ?You get migraines. ?You have had a blood clot. What other changes can be made? Manage your cholesterol. ?It is important to eat a healthy diet. ?If your cholesterol cannot be managed through your diet, you may also need to take medicines. Takemedicines as told by your doctor. Manage your diabetes. ?It is important to eat a healthy diet and to exercise regularly. ?If your blood sugar cannot be managed through diet and exercise, you may need to take medicines. Take medicines as told by your doctor. Control your high blood pressure (hypertension). ?Try to keep your blood pressure below 130/80. This can help lower your risk of stroke. ?It is important to eat a healthy diet and to exercise regularly. ?If your blood pressure cannot be managed through diet and exercise, you may need to take medicines. Take medicines as told by your doctor. ?Ask your doctor if you should check your blood pressure at home. ?Have your blood pressure checked every year. Do this even if your blood pressure is normal. Talk to your doctor about getting checked for a sleep disorder. Signs of this can include: ?Snoring a lot. ?Feeling very tired. Take bzzc-ril-eenkpbs and prescription medicines only as told by your doctor. These may include aspirin or blood thinners (antiplatelets or anticoagulants). Make sure that any other medical conditions you have are managed. Where to find more information [place] [employer] Association: www.strokeassociation.org National Stroke Association: www.stroke.org Get help right away if: You have any symptoms of stroke. BE FAST is an easy way to remember the main warning signs: ?B - Balance. Signs are dizziness, sudden trouble walking, or loss of balance. ?E - Eyes. Signs are trouble seeing or a sudden change in how you see. ?F - Face. Signs are sudden weakness or loss of feeling of the face, or the face or eyelid droopingon one side. ?A - Arms. Signs are weakness or loss of feeling in an arm. This happens suddenly and usually on one side of the body. ?S - Speech. Signs are sudden trouble speaking, slurred speech, or trouble understanding what people say. ?T - Time. Time to call emergency services. Write down what time symptoms started. You have other signs of stroke, such as: ?A sudden, very bad headache with no known cause. ?Feeling sick to your stomach (nausea). ?Throwing up (vomiting). ?Jerky movements you cannot control (seizure). These symptoms may represent a serious problem that is an emergency. Do not wait to see if the symptoms will go away. Get medical help right away. Call your local emergency services (911 in the [place] Do not drive yourself to the hospital. Summary You can prevent a stroke by eating healthy, exercising, not smoking, drinking less alcohol, and treating other health problems, such as diabetes, high blood pressure, or high cholesterol. Do not use any products that contain nicotine or tobacco, such as cigarettes and e-cigarettes. Get help right away if you have any signs or symptoms of a stroke. This information is not intended to replace advice given to you by your health care provider. Make sure you discuss any questions you have with your health care provider. Document Released: 02/20/2013 Document Revised: 10/18/2019 Document Reviewed: 11/23/2017 [employer] Patient Education 2020 [employer]. Follow Up Care 09/06/2024 23:42:54 With:JAKI FLEMING DO, Internal Medicine, [facility] / Address: [address] [place] [address] [place] [address]- [phone] When:5 to 7 days [facility] 01-05-2025 Note Discharge Instructions Thank you for allowing [facility] to assist you with your healthcare needs. The following is importantdischarge information regarding your hospital visit. Your Care Team JAKI FLEMING DO Your Diagnosis Age-related macular degeneration Androgen deprivation therapy- Started 04/29/[address] Katz Anemia Anxiety Arthritis Atrial fibrillation Balanitis Borderline low oxygen saturation level BPH - benign prostatic hyperplasia BPH associated with nocturia BPH with obstruction/lower urinary tract symptoms CAD in [place] artery CHF (congestive heart failure) Chronic venous insufficiency Colon, diverticulosis CPAP (continuous positive airway pressure) dependence Diabetes Diastasis recti Difficulty swallowing Dupuytren contracture DVT - Deep vein thrombosis Elevated PSA Family history of prostate cancer Fatty liver Fragile skin GERD - Gastro-esophageal reflux disease H/O epistaxis H/O polymyalgia rheumatica Hernia, internal History of aortic valve replacement with porcine valve History of blood clots History of blood transfusion History of coronary artery bypass graft x 2 History of kidney stones History of radiation therapy- completed 07/2023 History of urinary retention History of UTI Hypercholesterolemia Hypertension Kidney stones Left ureteral stone Low iron Macular degeneration Muscle weakness Nocturia Nocturia Non-Insulin Dependent Diabetes Mellitus Obstruction of right ureteropelvic junction (UPJ) On anticoagulant therapy On home oxygen therapy Presence of dental prosthetic device Prostate cancer- 01/2023 PSA 9.68 GL6 GG1, GL7 GG2, GG3, GL8 GG4, IMRT completed 07/2023 Renal insufficiency, mild Screening PSA (prostate specific antigen) Sleep apnea Synovial cyst TIA (transient ischemic attack) Ureterovesical junction obstruction Urinary incontinence Urinary urgency Vitamin D deficiency WBC decreased What to do next Scheduled Follow-Up Appointments Appointment Type When With Where Contact Information StatusCV OV 12/11/2024 10:30 AM EDT CHARMAINE LO APRN-MINDY [facility] CVC Confirmed URO OV 01/21/2025 01:50 PM EDT EZEKIEL BURRIS MD Urology Confirmed Follow Up Appointments Follow Up with JAKI FLEMING DO, Internal Medicine, [facility] / IM When:Within 5 to 7 days Where:[address] [place] [address] [place] [address] [phone] The Following Activity and Diet Have Been Ordered for You Discharge Activity - Ordered -- Resume your pre-hospitalization activity, 09/09/24 12:55:00 EST Discharge Diet - Ordered -- No changes were made to your diet during your hospital stay. Please resume your pre hospitalization diet on discharge., 09/09/24 12:55:00 EST The Following Equipment Has Been Ordered for You No qualifying data available. The Following Treatments Have Been Ordered for You Discharge Labs No qualifying data available. Discharge Radiology No qualifying data available. Other Therapies Physical Therapy Outpatient Eval & Treat (Physical Therapy Eval and Treat Outpatient) - Future -- 09/09/24, Unspecified, Grzegorz, Weakness, Decreased balance, Future Order, Once, No Post Acute Orders No qualifying data available. Someone Will Contact You Regarding These Home Health Referrals No home referrals have been ordered for you. No one will call you. Allergies NKA Medications Please ask your primary doctor or pharmacist before taking any other medication not listed, including over the counter drugs, herbal medications, vitamins and or supplements as they may interact withyour home medications. What How Much When Instructions Last Dose Unchanged acetaminophen- diphenhydramine (Tylenol PM ExtraStrength oral tablet) 2 tab(s) by mouth Daily at bedtime Unchanged apixaban (Eliquis 5 mg oral tablet) 1 tab(s) by mouth Two (2) times a day Unchanged ascorbic acid (Vitamin C 500 mg oral tablet) 1 tab(s) by mouth Twice daily with meals Unchanged empagliflozin (Jardiance 25 mg oral tablet) 1 tab(s) by mouth Once a day (in the morning) Unchanged esomeprazole (esomeprazole 40 mg oral delayed release capsule) 1 cap by mouth Once a day Unchanged ferrous sulfate (IRON (ferrous sulfate 325 mg) 65 mg oral tablet) 1 tab(s) by mouth Twice daily with meals Unchanged glipiZIDE (glipiZIDE 2.5 mg oral tablet, extended release) 1 tab(s) by mouth Twice daily with meals Unchanged herbal/ nutritional product (Vision Essentials) 1 Each by mouth Once a day Unchanged leflunomide (leflunomide 10 mg oral tablet) 1 tab(s) by mouth Once a day (in the morning) Unchanged lisinopril (lisinopril 40 mg oral tablet) 1 tab(s) by mouth Once a day (in the morning) Unchanged metFORMIN (metFORMIN 500 mg oral tablet (IR)) 1 tab(s) by mouth Twice daily with meals Unchanged Misc Medication (Triveratol Gold) 1 Each by mouth Once a day Herbal Antioxidant Unchanged sodium chloride nasal (Saline Mist 0.65% nasal spray) 2 spray(s) in the nose Four (4) times a day as needed for as needed for dry nasal passages Please take this list to your next doctor s visit. Bring all medications you take, including over the counter medications, herbals and other supplements with you to your doctor s visit. Patients and families are reminded to discard old lists and to update any records with all medication providers or retail pharmacies. Education Materials Stroke Prevention Some medical conditions and lifestyle choices can lead to a higher risk for a stroke. You can help to prevent a stroke by making nutrition, lifestyle, and other changes. What nutrition changes can be made? Eat healthy foods. ? Choose foods that are high in fiber. These include: ? Fresh fruits. ? Fresh vegetables. ? Whole grains. ? Eat at least 5 or more servings of fruits and vegetables each day. Try to fill half of your plate at each meal with fruits and vegetables. ? Choose lean protein foods. These include: ? Lowfat (lean) cuts of meat. ? Chicken without skin. ? Fish. ? Tofu. ? Beans. ? Nuts. ? Eat low-fat dairy products. ? Avoid foods that: ? Are high in salt (sodium). ? Have saturated fat. ? Have trans fat. ? Have cholesterol. ? Are processed. ? Are premade. Follow eating guidelines as told by your doctor. These may include: ? Reducing how many calories you eat and drink each day. ? Limiting how much salt you eat or drink each day to 1,500 milligrams (mg). ? Using only healthy fats for cooking. These include: ? Orange oil. ? Canola oil. ? Roy oil. ? Counting how many carbohydrates you eat and drink each day. What lifestyle changes can be made? Try to stay at a healthy weight. Talk to your doctor about what a good weight is for you. Get at least 30 minutes of moderate physical activity at least 5 days a week. This can include: ? Fast walking. ? Biking. ? Swimming. Do not use any products that have nicotine or tobacco. This includes cigarettes and e-cigarettes. If you need help quitting, ask your doctor. Avoid being around tobacco smoke in general. Limit how much alcohol you drink to no more than 1 drink a day for non women and 2 drinks aday for men. One drink equals 12 oz of beer, 5 oz of wine, or 1 oz of hard liquor. Do not use drugs. Avoid taking control pills. Talk to your doctor about the risks of taking control pillsif: ? You are over 35 years old. ? You smoke. ? You get migraines. ? You have had a blood clot. What other changes can be made? Manage your cholesterol. ? It is important to eat a healthy diet. ? If your cholesterol cannot be managed through your diet, you may also need to take medicines. Take medicines as told by your doctor. Manage your diabetes. ? It is important to eat a healthy diet and to exercise regularly. ? If your blood sugar cannot be managed through diet and exercise, you may need to take medicines. Take medicines as told by your doctor. Control your high blood pressure (hypertension). ? Try to keep your blood pressure below 130/80. This can help lower your risk of stroke. ? It is important to eat a healthy diet and to exercise regularly. ? If your blood pressure cannot be managed through diet and exercise, you may need to take medicines.Take medicines as told by your doctor. ? Ask your doctor if you should check your blood pressure at home. ? Have your blood pressure checked every year. Do this even if your blood pressure is normal. Talk to your doctor about getting checked for a sleep disorder. Signs of this can include: ? Snoring a lot. ? Feeling very tired. Take pnlv-xto-okbfaev and prescription medicines only as told by your doctor. These may include aspirin or blood thinners (antiplatelets or anticoagulants). Make sure that any other medical conditions you have are managed. Where to find more information [place] St[employer] Association: www.strokeassociation.org National Stroke Association: www.stroke.org Get help right away if: You have any symptoms of stroke. BE FAST is an easy way to remember the main warning signs: ? B - Balance. Signs are dizziness, sudden trouble walking, or loss of balance. ? E - Eyes. Signs are trouble seeing or a sudden change in how you see. ? F - Face. Signs are sudden weakness or loss of feeling of the face, or the face or eyelid drooping on one side. ? A - Arms. Signs are weakness or loss of feeling in an arm. This happens suddenly and usually on oneside of the body. ? S - Speech. Signs are sudden trouble speaking, slurred speech, or trouble understanding what peoplesay. ? T - Time. Time to call emergency services. Write down what time symptoms started. You have other signs of stroke, such as: ? A sudden, very bad headache with no known cause. ? Feeling sick to your stomach (nausea). ? Throwing up (vomiting). ? Jerky movements you cannot control (seizure). These symptoms may represent a serious problem that is an emergency. Do not wait to see if the symptoms will go away. Get medical help right away. Call your local emergency services (911 in the [place] Do not drive yourself to the hospital. Summary You can prevent a stroke by eating healthy, exercising, not smoking, drinking less alcohol, and treating other health problems, such as diabetes, high blood pressure, or high cholesterol. Do not use any products that contain nicotine or tobacco, such as cigarettes and e-cigarettes. Get help right away if you have any signs or symptoms of a stroke. This information is not intended to replace advice given to you by your health care provider. Make sure you discuss any questions you have with your health care provider. Document Released: 02/20/2013 Document Revised: 10/18/2019 Document Reviewed: 11/23/2017 Elsevier Patient Education 2020 [employer] Additional Information VACCINATE! IT SAVES LIVES! Members of the community who have not yet received the COVID-19 vaccine and would like to receive it can visit one of [facility] vaccine clinics. There are many vaccine clinic locations within the [facility]. For locations and available times, please visit [email or web address].[place].gov/. It is important to note that some COVID mobile vaccine clinics are held outdoors and may be canceled in rainy or stormy conditions. To learn more about pediatric vaccinations (ages 5-11), we invite you to visit the [facility] webpage. [email or web address]/[email or web address] [email or web address] learn more about the COVID-19 vaccine, we invite you to visit the CDC website for a list of frequently asked questions.https://www.cdc.gov/coronavirus/2019-ncov/vaccines/faq.html [facility] Patient Portal Access Instructions: Stay connected with your healthcare team and access your personal medical information anytime with the [facility] Patient Portal. Please follow the directions below to create your [facility] account: 1.Access the email account you provided upon registration to the hospital/physician office.2.Look for an invitation email from [facility].3.Open the email and access the invitation link: AcceptInvitation to [facility].4.Fill in the required ortega to create your account. To access your account, visit [facility]. Click the blue button labeled Access Patient Portal and then log in with the username and password that you created in the steps above. You will be able to view your test results, lab results, a summary of your visits, upcoming appointments and more. There is also a convenient messaging option where you can send secure messages to your p rovider. In addition, you will have the ability to download any documents or summaries to your computer and/or send the information securely to a physician. Remember that your healthcare information is confidential, so carefully consider who you will allowto register on the [facility] Portal for access to your information. You can also access the [facility] Patient Portal on the [facility] jyoti. Simply click on Patient Portal and then log into your account. If you would like to receive a full copy of your medical records, please contact the [facility] Medical Records Department by calling [phone], Tuesday through Tuesday between 8 a.m. and 4:30 p.m. HOW TO SAFELY DISPOSE OF PRESCRIPTION MEDICATIONS Please use one of the following methods to safely dispose of your unused medications. 1.Use a drug disposal kit: the drug disposal pouch allows you to safely discard your old and unuseddrugs. Ask your nurse to give you one when you are discharged.2.Visit a local take-back location: Many local pharmacies and police departments have programs that collect old and unwanted prescriptiondrugs. Call your local pharmacy or go to http://Kyp/1Q1Np0e to find one close to you.3.Make use of household items: Use cat litter or old coffee grounds to dispose medications if other options arenot available. Mix your drugs with these household products, seal them in an airtight container andthrow it into the garbage. Call [facility]: [phone] to be sure your drugs can be disposed of in this way. Some medicines may require a different approach.4.Never flush your medications down the toilet. IF YOU HAVE BEEN PRESCRIBED AN OPIOID FOR PAIN If you have been prescribed an opioid (such as hydrocodone, oxycodone or morphine), it is critical to understand the possible side effects and risks of opioid pain medications. Even when taken as directed, opioids can have several side effects including: Tolerance, meaning you might need to take more of a medication for the same pain relief. Nausea, vomiting and/or constipation. Sleepiness, dizziness, dry mouth, confusion, depression or itching. Physical dependence, meaning you have withdrawal symptoms when a medication is stopped, can develop within a few days. KNOW YOUR RESPONSIBILITIES It is important to know exactly how much and how often to take the opioid pain medications you are prescribed. Never take opioids in higher amounts or more often than prescribed. Do not combine opioids with alcohol or other drugs that cause drowsiness, such as benzodiazepines, also known as benzos, including diazepam and alprazolam, muscle relaxants or sleep aids. Never sell or share prescription opioids. This is illegal. Store opioids in a secure place and out of reach of others (including children, family, friends and visitors). The last page of this document has been signed and retained as a CHART COPY. Signatures Patient Education Materials Stroke Prevention, Dueg-za-Tqjo Medication Leaflets My discharge plan and instructions have been reviewed and explained to me and I,JAYLEN GALAVIZ understand my current condition and have read and understand these discharge instructions. I have received a written copy of the plan/instructions. If I have questions, I am aware that I should contact my doctor. 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 Signature: Date/Time: Relationship to Patient: Witness Name/Signature: Date/Time: [id number] Discharge summary Date of Service 09/09/24 Discharge Diagnosis Transient ischemic attack Hospital Course This is an 89-year-old male patient of Dr. Jaki Fleming who came to the emergency room complaining of weakness, unsteady gait, and fall. He was admitted for stroke evaluation and seen by neurology. Initial CT of the head was negative. 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 Echocardiogram and carotid results are pending and will be reviewed on an outpatient basis. He was seen by physical therapy and Occupational Therapy. Outpatient therapy was recommended. The patient tells me that he is statin intolerant due to myalgias. He states that Dr. Fleming had himon Repatha in the past, will speak with her regarding restarting that medication. He is discharged home in stable condition. He will follow-up with Dr. Fleming in the office in 1 to 2weeks. Allergies NKA Consults Consult to Dietitian (Dietitian Consult) - Ordered -- 09/09/24 0:09:00 EST, diet instruction, LDL 179, A1c 7.1, ME4N Consult to Physician (Physician Consult) - Ordered -- 09/07/24 21:32:00 EST, DENISSE SALDIVAR MD, Routine, CVA Objective Vitals and Measurements T: 36.8 C (Oral) TMIN: 36.5 C (Oral) TMAX: 38.0 C (Oral) HR: 94 (Monitored) RR: 18 BP: 130/77 SpO2:94% Weight Dosing Weight: 119.6 kg (09/07/24) Dosing Weight: 119.6 kg (09/07/24) Lungs-clear Heart-regular Abdomen-soft, benign Extremities-no edema Code Status Code Status - Ordered -- 09/07/24 13:40:00 EST, Full Code, Constant Order Admission Date 09/06/24 Discharge Date 09/09/24 Medications Unchanged acetaminophen-diphenhydramine (Tylenol PM Extra Strength oral tablet)2 tab(s) by mouth daily at bedtime. apixaban (Eliquis 5 mg oral tablet)1 tab(s) by mouth two (2) times a day. ascorbic acid (Vitamin C 500 mg oral tablet)1 tab(s) by mouth twice daily with meals. empagliflozin (Jardiance 25 mg oral tablet)1 tab(s) by mouth once a day (in the morning). esomeprazole (esomeprazole 40 mg oral delayed release capsule)1 cap by mouth once a day. ferrous sulfate (IRON (ferrous sulfate 325 mg) 65 mg oral tablet)1 tab(s) by mouth twice daily withmeals. glipiZIDE (glipiZIDE 2.5 mg oral tablet, extended release)1 tab(s) by mouth twice daily with meals. herbal/nutritional product (Vision Essentials)1 Each by mouth once a day. leflunomide (leflunomide 10 mg oral tablet)1 tab(s) by mouth once a day (in the morning). lisinopril (lisinopril 40 mg oral tablet)1 tab(s) by mouth once a day (in the morning). metFORMIN (metFORMIN 500 mg oral tablet (IR))1 tab(s) by mouth twice daily with meals. Misc Medication (Triveratol Gold)1 Each by mouth once a day. Herbal Antioxidant. sodium chloride nasal (Saline Mist 0.65% nasal spray)2 spray(s) in the nose four (4) times a day asneeded as needed for dry nasal passages. Follow Up Appointments No qualifying data available. Follow Up Labs/Studies Discharge Labs No Follow-up Labs Discharge Studies Discharge to Outpatient PT - Ordered -- Therapy Order: Outpatient PT Eval and Treat, Weakness, Reason: Decreased balance, 09/09/24 12:55:00 EST Discharge Diet Discharge Diet - Ordered -- No changes were made to your diet during your hospital stay. Please resume your pre hospitalization diet on discharge., 09/09/24 12:55:00 EST Discharge Activity Discharge Activity - Ordered -- Resume your pre-hospitalization activity, 09/09/24 12:55:00 EST Condition on Discharge Stable. Readmission Risk/Palliative Score LACE Score: 14 (09/08/24 12:11:00) Palliative Total Score: 1 (09/08/24 12:11:00) Discharge Disposition Home with outpatient physical therapy. Digitally Signed by JORDI MOODY MD on 09/09/2024 12:59 PM [id number] Note* Exam Date Time Procedure Performing Provider Status 09/09/24 11:58 AM Echocardiogram, Adult - CV ELOISA HOGAN MD; Auth (Verified) [id number] Note* Exam Date Time Procedure Performing Provider Status 09/09/24 11:42 AM VL Carotid US/Dopple r Complete - CV EZEKIEL SHERWOOD MD; Auth (Verified) [id number] Note* Exam Date Time Procedure Performing Provider Status 09/08/24 5:[address] Head or Brain w/o Contrast MALCOM WILLSON DO; Auth (Verified) [id number] ORIGINAL EXAMINATION: CT OF THE HEAD WITHOUT CONTRAST09/08/2024 5:[address] HEAD/BRAIN WITHOUT CONTRAST TECHNIQUE: CT of the head was performed without the administration of intravenous contrast. Automated exposure control, iterative reconstruction, and/or weight based adjustment of the mA/kV was utilized to reduce the radiation dose to as low as reasonably achievable. Axial CT images from skull base to vertex without IV contrast. This exam was performed according to our departmental dose optimization program, and includes the following measures where applicable: automated exposure control, adjustment of the mAs and/or kVp according to patient size and/or exam, and an iterative reconstruction algorithm. COMPARISON: CT head 09/07/2024. HISTORY: ORDERING SYSTEM PROVIDED HISTORY: Reason for Exam: TIA, DIZZINESS, BALANCE ISSUES, FALL FROM COUCH, ON THINNERS TIA FINDINGS: There is no acute intracranial hemorrhage, mass effect or abnormal extra-axial fluid collection. There is no CT evidence of acute large territorial infarct. There are scattered mild to moderate periventricular and subcortical white matter hypodensities, unchanged and likely sequela of chronic microvascular ischemic change. The ventricles are normal in size for age. There is no depressed calvarial fracture. There is a 2 mm metallic foreign body in the right infraorbital preseptal soft tissues. Mild mucosal thickening with aerosolized secretions in the left maxillary sinus and ethmoid sinuses.. Included mastoid air cells are clear. IMPRESSION: No evidence of an acute intracranial abnormality. Shows Interpreted by: Angelica Willson Preliminary Report By: Angelica Willson Electronically signed By Angelica Willson Dictated Date: 09/08/2024 8:55:47 PM Prelim Date: 09/08/2024 8:58:52 PM Sign Date: 09/08/2024 8:58:52 PM Ordering Provider: [facility]01-04-2025 Note* Exam Date Time Procedure Performing Provider Status 09/08/24 5:00 PM XR Foreign Body Loc Eye Bilateral TYSON AUSTIN MD; Auth (Verified) [id number] ORIGINAL EXAMINATION: XR OR FOREIGN BODY 09/08/2024 5:01 pm COMPARISON: CT head 09/07/2024 HISTORY: ORDERING SYSTEM PROVIDED HISTORY: Reason for Exam: Clearance for MRI FINDINGS: Again noted is a 1 mm metallic density at the lower lateral right orbit. The metallic density appears unchanged in position from prior CT head study of 09/07/2024. Left ovary demonstrates no evidence of foreign body. There are small metallic densities projected at upper and lower dentition. IMPRESSION: 1 mm metallic density at the lower lateral right orbit, unchanged from prior CT head study. Interpreted by: Tyson Rayo Preliminary Report By: Tyson Rayo Electronically signed By Tyson Rayo Dictated Date: 09/08/2024 6:25:23 PM Prelim Date: 09/08/2024 6:31:11 PM Sign Date: 09/08/2024 6:31:11 PM Ordering Provider: [facility]ORDI MOODY [id number] History and physical note Chief Complaint The pt arrives to the ER for the c/o weakness/unstable gait The pt fell backward onto a couch s/pstanding up off the couch. History of Present Illness This is an 89-year-old male patient of Dr. Jaki Fleming who came to the emergency room with an episode of unstable gait, weakness, and fall. He had an episode of double vision about 3 months ago and had a stroke evaluation at that time which was essentially unremarkable per his history. He states that he had an MRI at that time, although was told today by the MRI department that he has metal in his orbits and he cannot have an MRI. His symptoms have resolved and he is back to baseline at this time. Review of Systems He denies chest pain, shortness of breath, nausea, vomiting, diarrhea, or urinary complaints. Physical Exam Vitals and Measurements T: 36.5 C (Oral) TMIN: 36.3 C (Oral) TMAX: 37.0 C (Oral) HR: 62 (Monitored) RR: 18 BP: 124/60 SpO2:98% HT: 180.3 cm WT: 119.6 kg BMI: 36.79 Weight Dosing Weight: 119.6 kg (09/07/24) Dosing Weight: 119.6 kg (09/07/24) Lungs-clear Heart-regular Abdomen-soft, benign Extremities-no edema Neuro-cranial nerves II through XII are grossly intact. No focal deficit Lab Results 09/07 06:47 WBC: 2.7 L Hgb: 9.5 L Hct: 28.7 L Platelet: 147 L Neutrophil %: 59.6 Protime: 13.7 PT International Ratio: 1.2 Glucose Level: 99 Sodium Level: 140 Potassium Level: 4.1 BUN: 27.0 H Creatinine Lvl (s): 1.31 Assessment/Plan Age-related macular degeneration This is an 89-year-old male patient of Dr. Fleming who came to the emergency room with weakness and an unstable gait. Initial CT head was negative. He was told by the MRI department that he has metal in his orbits and was unable to have an MRI. We will check an orbital x-ray as well as repeat a CT ofthe head. Check echocardiogram and carotid Dopplers. PT/OT evaluate and treat. Add Rosuvastatin 20mg daily. 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 CHF (congestive heart failure) Chronic venous insufficiency Colon, diverticulosis CPAP (continuous positive airway pressure) dependence Diabetes Diastasis recti Difficulty swallowing Dupuytren contracture DVT - Deep vein thrombosis Elevated PSA Family history of prostate cancer Fatty liver Fragile skin GERD - Gastro-esophageal reflux disease H/O epistaxis H/O polymyalgia rheumatica Hernia, internal History of aortic valve replacement with porcine valve History of blood clots History of blood transfusion History of coronary artery bypass graft x 2 History of kidney stones History of radiation therapy- completed 07/2023 History of urinary retention History of UTI Hypercholesterolemia Hypertension Kidney stones Left ureteral stone Low iron Macular degeneration Muscle weakness Nocturia Nocturia Non-Insulin Dependent Diabetes Mellitus Obstruction of right ureteropelvic junction (UPJ) On anticoagulant therapy On home oxygen therapy Presence of dental prosthetic device Prostate cancer- 01/2023 PSA 9.68 GL6 GG1, GL7 GG2, GG3, GL8 GG4, IMRT completed 07/2023 Renal insufficiency, mild Screening PSA (prostate specific antigen) Sleep apnea Synovial cyst Ureterovesical junction obstruction Urinary incontinence Urinary urgency Vitamin D deficiency WBC decreased Orders: acetaminophen-diphenhydramine(Tylenol PM Extra Strength oral tablet), 2 tab(s), Oral, qHS apixaban(Eliquis), 5 mg= 1 tab(s), Oral, BID ascorbic acid(Vitamin C), 500 mg= 1 tab(s), Oral, BIDM empagliflozin(Jardiance), 25 mg= 1 tab(s), Oral, qAM ferrous sulfate(Feosol), 325 mg= 1 tab(s), Oral, BIDM glipiZIDE(glipiZIDE 2.5 mg oral tablet, extended release), 2.5 mg= 1 tab(s), Oral, BIDM leflunomide, 10 mg= 1 tab(s), Oral, qAM lisinopril, 40 mg= 2 tab(s), Oral, qAM metFORMIN(metFORMIN 500 mg oral tablet (IR)), 500 mg= 1 tab(s), Oral, BIDM pantoprazole(Protonix Ther Interch for Nexium 40 mg), 40 mg= 1 tab(s), Oral, qDayAC sodium chloride nasal(Saline Mist), 1 spray(s), Nasal, QID, PRN [place] [employer] Diet(ADA Diet), 09/07/24 21:23:00 EST, Start Meal: Next meal, 1800 kcal, Constant Order, N/A, N/A Call Parameters, 09/07/24 21:23:00 EST, Call Provider if patient fails the bedside swallow evaluation., Constant order Communication Order (continuous), 09/07/24 21:23:00 EST, Call neurologist for change in neurological assessment and/or an increase in the NIH Stroke Scale score of 4 or greater., Constant order Consult to Physician(Physician Consult), 09/07/24 21:32:00 EST, DENISSE SALDIVAR MD, Routine, CVA Echocardiogram Adult, 09/07/24 21:23:00 EST, Routine, CVA, Physician to Read: [facility], Echo Contrast: Use if indicated and not contraindicated, Transporter, Full Code, 119.6 kg, [facility], [place], 09/07/24 21:23:00 EST Follow Clinical Pathway, 09/07/24 21:23:00 EST, Constant order, Ischemic Stroke Ischemic Stroke Education, 09/07/24 21:23:00 EST, qAM, Give Understanding Stroke patient education booklet to patient MRI Brain w/o Contrast, 09/07/24 21:23:00 EST, 09/07/24 21:23:00 EST, Routine, TIA, with Diffusion,Wt k.6, Metal in Eyes: Yes, Prior Valve Replacement: Yes, [facility], [place] Neurological Check, 09/07/24 21:23:00 EST, q4hr NIH Stroke Scale, 09/07/24 21:23:00 EST, q12hr, 3 day(s), 09/10/24 10:00:00 EST, complete NIH Stroke Scale upon admission & discharge Vital Signs, 09/07/24 21:23:00 EST, q4hr Vital Signs Call Parameters, 09/07/24 21:23:00 EST, Temp Range: > 38.5 degrees Celsius, BP RangeSBP >/= 220mmHg, DBP >/= 110 mmHg, Constant Order VL Carotid US/Doppler Complete, 09/08/24 16:37:00 EST, Carotid Stenosis, [facility], PatientBed, [facility], [place], 09/08/24 16:37:00 EST XR Orbits Minimum 4 Views, 09/08/24 16:35:00 EST, 09/08/24 16:35:00 EST, Routine, Clearance for MRI, Portable: No, Wt k.6, [facility], [facility] Problem List/Past Medical History Ongoing Androgen deprivation therapy- Started 04/29/[address] Gianna Rivera 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 Chronic venous insufficiency Elevated PSA Family history of prostate cancer GERD - Gastro-esophageal reflux disease H/O epistaxis Status: Inactive Hernia, internal History of blood clots History of urinary retention Kidney stones Left ureteral stone Nocturia Non-Insulin Dependent Diabetes Mellitus Renal insufficiency, mild Synovial cyst Ureterovesical junction obstruction Historical Diastasis recti History of UTI Procedure/Surgical History Transperineal biopsy of prostate using magnetic resonance imaging and ultrasonography fusion guidance: 02/01/23 Heart valve replacement - graft: 2012 CABG (Coronary artery bypass grafting) planned: 09/17/12 Colonoscopy Esophagogastroduodenoscopy Cataract extraction and IOL (implantation of intraocular lens) Kidney stone Carpal tunnel release Hiatus hernia repair Medications Home Medications (13) Active Eliquis 5 mg oral tablet 5 mg = 1 tab(s), Oral, BID esomeprazole 40 mg oral delayed release capsule 40 mg = 1 cap(s), Oral, qDay glipiZIDE 2.5 mg oral tablet, extended release 2.5 mg = 1 tab(s), Oral, BIDM IRON (ferrous sulfate 325 mg) 65 mg oral tablet 325 mg = 1 tab(s), Oral, BIDM Jardiance 25 mg oral tablet 25 mg = 1 tab(s), Oral, qAM leflunomide 10 mg oral tablet 10 mg = 1 tab(s), Oral, qAM lisinopril 40 mg oral tablet 40 mg = 1 tab(s), Oral, qAM metFORMIN 500 mg oral tablet (IR) 500 mg = 1 tab(s), Oral, BIDM Saline Mist 0.65% nasal spray 2 spray(s), PRN, Nasal, QID Triveratol Gold 1 EA, Oral, qDay Tylenol PM Extra Strength oral tablet 2 tab(s), Oral, qHS Vision Essentials 1 EA, Oral, qDay Vitamin C 500 mg oral tablet 500 mg = 1 tab(s), Oral, BIDM Allergies NKA Social History Smoking Status - 04/15/2018 Never smoker Alcohol - Denies Alcohol Use, 09/18/2017 Use: Never., 03/28/2023 Employment/School Status: Retired. Previous employment/school: [employer] 03/28/2023 Home/Environment Living situation: Home/Independent. Domestic Concerns: Denies. Lives In: Multilevel home. Current Home Treatments Blood Glucose monitoring, Blood Pressure monitoring, CPAP, HEART MONITOR. Spouse Name: CHRISTIANO. Marital Status: ., 10/18/2023 Nutrition/Health Type of diet: Diabetic. Caffeine intake amount: 1 CUP COFFEE PER DAY. Appetite Excellent. Eating Difficulties None, Swallowing., 10/18/2023 Substance Abuse - Denies Substance Abuse, 09/18/2017 Use: Never., 03/28/2023 Tobacco Nicotine Use: Never (less than 100 in lifetime)., 03/16/2023 Family History Arthritis 28-MAY-2014 16:49:04<$>: Son. Asthma: Brother. Bladder cancer: Negative: Mother, Father, Brother, Son and Grandparent. Colon cancer: Negative: Mother, Father, Sister, Brother, Daughter, Son, Son, Son, Son and Grandparent. Diabetes mellitus: Mother. Heart attack: Son. Heart disease: Mother and Father. Kidney stone: Negative: Mother, Father, Brother, Son and Grandparent. Prostate cancer: Negative: Father and Grandparent. Prostate cancer 03-Mar-2016 02:35:22<$>: Brother. Renal cancer: Negative: Mother, Father, Brother, Son and Grandparent. Stroke: Mother. Health Status Family Member(s) Family Member(s) Relationship: Son, Age: 60 Years Immunizations pneumococcal 13-valent conjugate vaccine: 0 unknown unit (09/12/16) pneumococcal 23-valent vaccine(Pneumovax: 0.5 unknown unit (08/23/17) SARS-CoV-2 (COVID-19) mRNA-1273 vaccine: 0.25 unknown unit (07/28/21) SARS-CoV-2 (COVID-19) mRNA-1273 vaccine: 0.5 unknown unit (10/30/20) SARS-CoV-2 (COVID-19) mRNA-1273 vaccine: 0.5 unknown unit (10/02/20) tetanus/diphth/pertuss (Tdap) adult/adol: 0.5 unknown unit (07/20/18) Code Status Code Status - Ordered -- 09/07/24 13:40:00 EST, Full Code, Constant Order Digitally Signed by JORDI MOODY MD on 09/08/2024 04:43 PM [id number] Evaluation + Plan noteExtracted from: Title:History and Physical Author:ROCCO MOODY MD Date:09/08/24 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 Fleming who came to the emergency room with weakness and an unstable gait. Initial CT head was negative. He was told by the MRI department that he has metal in his orbits and was unable to have an MRI. We will check an orbital x-ray as well as repeat a CT of the head. Check echocardiogram and carotid Dopplers. PT/OT evaluate and treat. Add Rosuvastatin 20mg daily. 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 CHF (congestive heart failure) Chronic venous insufficiency Colon, diverticulosis CPAP (continuous positive airway pressure) dependence Diabetes Diastasis recti Difficulty swallowing Dupuytren contracture DVT - Deep vein thrombosis Elevated PSA Family history of prostate cancer Fatty liver Fragile skin GERD - Gastro-esophageal reflux disease H/O epistaxis H/O polymyalgia rheumatica Hernia, internal History of aortic valve replacement with porcine valve History of blood clots History of blood transfusion History of coronary artery bypass graft x 2 History of kidney stones History of radiation therapy- completed 07/2023 History of urinary retention History of UTI Hypercholesterolemia Hypertension Kidney stones Left ureteral stone Low iron Macular degeneration Muscle weakness Nocturia Nocturia Non-Insulin Dependent Diabetes Mellitus Obstruction of right ureteropelvic junction (UPJ) On anticoagulant therapy On home oxygen therapy Presence of dental prosthetic device Prostate cancer- 01/2023 PSA 9.68 GL6 GG1, GL7 GG2, GG3, GL8 GG4, IMRT completed 07/2023 Renal insufficiency, mild Screening PSA (prostate specific antigen) Sleep apnea Synovial cyst Ureterovesical junction obstruction Urinary incontinence Urinary urgency Vitamin D deficiency WBC decreased Orders: acetaminophen-diphenhydramine(Tylenol PM Extra Strength oral tablet), 2 tab(s), Oral, qHS apixaban(Eliquis), 5 mg= 1 tab(s), Oral, BID ascorbic acid(Vitamin C), 500 mg= 1 tab(s), Oral, BIDM empagliflozin(Jardiance), 25 mg= 1 tab(s), Oral, qAM ferrous sulfate(Feosol), 325 mg= 1 tab(s), Oral, BIDM glipiZIDE(glipiZIDE 2.5 mg oral tablet, extended release), 2.5 mg= 1 tab(s), Oral, BIDM leflunomide, 10 mg= 1 tab(s), Oral, qAM lisinopril, 40 mg= 2 tab(s), Oral, qAM metFORMIN(metFORMIN 500 mg oral tablet (IR)), 500 mg= 1 tab(s), Oral, BIDM pantoprazole(Protonix Ther Interch for Nexium 40 mg), 40 mg= 1 tab(s), Oral, qDayAC sodium chloride nasal(Saline Mist), 1 spray(s), Nasal, QID, PRN [place] [employer] Diet(ADA Diet), 09/07/24 21:23:00 EST, Start Meal: Next meal, 1800 kcal, Constant Order, N/A, N/A Call Parameters, 09/07/24 21:23:00 EST, Call Provider if patient fails the bedside swallow evaluation., Constant order Communication Order (continuous), 09/07/24 21:23:00 EST, Call neurologist for change in neurological assessment and/or an increase in the NIH Stroke Scale score of 4 or greater., Constant order Consult to Physician(Physician Consult), 09/07/24 21:32:00 EST, DENISSE SALDIVAR MD, Routine, CVA Echocardiogram Adult, 09/07/24 21:23:00 EST, Routine, CVA, Physician to Read: [facility], Echo Contrast: Use if indicated and not contraindicated, Transporter, Full Code, 119.6 kg, [facility], [facility], 09/07/24 21:23:00 EST Follow Clinical Pathway, 09/07/24 21:23:00 EST, Constant order, Ischemic Stroke Ischemic Stroke Education, 09/07/24 21:23:00 EST, qAM, Give Understanding Stroke patient education booklet to patient MRI Brain w/o Contrast, 09/07/24 21:23:00 EST, 09/07/24 21:23:00 EST, Routine, TIA, with Diffusion, Wt k.6, Metal in Eyes: Yes, Prior Valve Replacement: Yes, [facility], [facility] Neurological Check, 09/07/24 21:23:00 EST, q4hr NIH Stroke Scale, 09/07/24 21:23:00 EST, q12hr, 3 day(s), 09/10/24 10:00:00 EST, complete NIH Stroke Scale upon admission & discharge Vital Signs, 09/07/24 21:23:00 EST, q4hr Vital Signs Call Parameters, 09/07/24 21:23:00 EST, Temp Range: > 38.5 degrees Celsius, BP Range SBP >/= 220mmHg, DBP >/= 110 mmHg, Constant Order VL Carotid US/Doppler Complete, 09/08/24 16:37:00 EST, Carotid Stenosis, [facility], Patient Bed, [facility], [facility], 09/08/24 16:37:00 EST XR Orbits Minimum 4 Views, 09/08/24 16:35:00 EST, 09/08/24 16:35:00 EST, Routine, Clearance for MRI, Portable: No, Wt k.6, [facility], [facility] Future Appointments Appointment Date:12/11/2024 10:30:00 AM Scheduled Provider:CHARMAINE LO Location:[facility] Appointment Type:CV OV Appointment Date:01/21/2025 01:50:00 PM Scheduled Provider:EZEKIEL BURRIS MD Location:UROLOGY Appointment Type:URO OV Future Scheduled Tests Laboratory* Lactate Dehydrogenase 04/17/24 * Prostate Specific Antigen 10/08/23 * Prostate Specific Antigen 04/17/24 * Prostate Specific Antigen 01/17/25 * Complete Blood Count 04/17/24 * Complete Metabolic Panel 04/17/24 * N-Terminal proBNP 02/21/24 Radiology* NM Myocardial Spect Rest/Stress 09/21/23 [facility] 01-04-[facility] Note* Exam Date Time Procedure Performing Provider Status 09/08/24 1:45 PM MRI Brain w/o Contrast ANGELICA WILLSON DO; Auth (Verified) [id number] ORIGINAL EXAMINATION: MRI OF THE BRAIN WITHOUT CONTRAST 09/08/2024 2:07 pm TECHNIQUE: Multiplanar multisequence MRI of the brain was performed without the administration of intravenous contrast. COMPARISON: same day CT. HISTORY: ORDERING SYSTEM PROVIDED HISTORY: Reason for Exam: TIA FINDINGS: Exam was discontinued after the diffusion, T2 GRE and T2 FLAIR sequences obtained after the technologist noted metallic susceptibility artifact around the right orbit. This limits this exam, but within these limitations: INTRACRANIAL STRUCTURES/VENTRICLES: There is no restricted diffusion to suggest acute infarct. No mass effect or midline shift. No evidence of an acute intracranial hemorrhage. There are subcortical and periventricular white matter foci of FLAIR hyperintensity, typical for chronic microvascular ischemic change. The ventricles and sulci are normal in size and configuration. ORBITS: There is metallic susceptibility artifact in the right orbital region, described on CT, same day. SINUSES: There appears to be mild mucosal thickening throughout the paranasal sinuses. BONES/SOFT TISSUES: The bone marrow signal intensity appears normal. The soft tissues demonstrate no acute abnormality. IMPRESSION: Limited exam, described above. Mild to moderate chronic microvascular ischemic change without evidence of evidence of acute infarct. Interpreted by: Angelica Willson Preliminary Report By: Angelica Willson Electronically signed By Angelica Willson Dictated Date: 09/08/2024 9:02:18 PM Prelim Date: 09/08/2024 9:07:08 PM Sign Date: 09/08/2024 9:07:08 PM Ordering Provider: JORDI MOODY [id number] Neurology Consult note Date of Service 09/08/2024 Reason for Consultation Stroke History of Present Illness 89-year-old male with past medical history of GERD, prostate cancer s/p radiation, CABG who presented after a mechanical fall. The patient has been having intermittent different symptoms for the last3 months. Initially he had an episode of double vision and was seen by jailor. Patient mentioned that his exam was fine and MRI was done with no evidence of any structural abnormality. Then he had an episode where he had difficulty writing and he jumbled up the words. This lasted for abouta day before he felt back to normal. Yesterday he got up from his couch and fell backwards and since then he was feeling shaky while walking. He did not have any dizziness, visual disturbance or headache during the event. At baseline he has difficulty with ambulation since his radiation and was using a cane earlier which she stopped but since yesterday's event he is using the cane again. He was hypertensive on arrival with fluctuations in his blood pressure. The patient mentions that generally his blood pressure is 120 over 60s. Review of Systems Complete ROS negative except as documented in HPI. Physical Exam Vitals and Measurements T: 37.0 C (Oral) TMIN: 36.3 C (Oral) TMAX: 37.0 C (Oral) HR: 80 RR: 18 BP: 133/78 SpO2: 98% HT: 180.3 cm WT: 119.6 kg BMI: 36.79 Weight Dosing Weight: 119.6 kg (09/07/24) Dosing Weight: 119.6 kg (09/07/24) General Examination: conscious, alert, oriented, AoA x3 HEENT: normocephalic, pupils BERL Heart: normal S1 S2 Lungs: Bilateral air entry present Abdomen: bowel sounds present Psychiatry: Denies Anxiety, depression or suicidal ideations at present Neuro: Conscious, alert, oriented AoA x3, CN II-XII normal, no Nystagmus, EOMI, pupils BERL, No facial sensory loss, no facial asymmetry, tongue protrudes in midline, no uvula deviation, normal shoulder shrug, Power 5/5 B/L UE and LE, tone normal all 4 extremities, No tremors, No pronator drift, Reflexes + B/S/T/K/A, Plantars B/L flexor, No cerebellar signs, Romberg s deferred, No sensory loss tolight touch/temperature, normal joint/position/vibration sense, gait deferred, No frontal release signs. No involuntary movements, No NR, No Kernig s sign, No Brudzinski s sign Lab Results Labs from this AM reviewed 09/07 06:47 WBC: 2.7 L Hgb: 9.5 L Hct: 28.7 L Platelet: 147 L Neutrophil %: 59.6 Protime: 13.7 PT International Ratio: 1.2 Glucose Level: 99 Sodium Level: 140 Potassium Level: 4.1 BUN: 27.0 H Creatinine Lvl (s): 1.31 Imaging Results and Diagnostics The following imaging reports were reviewed: CT Head or Brain w/o Contrast Result Date: September 07, 2024 Verified By: MARIEL RUVALCABA MD CLINICAL STATEMENT: IMPRESSION: No acute intracranial abnormality. Moderate volume loss and small vesselischemic disease. I have personally reviewed the images of this examination and agree with theresident's findings and interpretation. Images of the CT head were personally reviewed - no definite acute process was appreciated, only chronic changes were apparent. Assessment/Plan Possible stroke Likely due to long-term vascular risk factors. A brain MRI and TTE are ordered. A1c is pending as well. - Patient is on Eliquis which is preventative for stroke. it can be continued. He will benefit from outpatient neuropsych evaluation - Patient is back to his baseline. EEG can be considered as outpatient given his intermittent symptoms in the past. -PT OT Will follow peripherally and add further recommendations or formally follow-up as needed. Please call with any concerns or questions. He should follow-up with [facility] in 4 6 weeks. General guidelines for long-term vascular risk factor modification in the setting of a stroke: SBP goal: < 140 as tolerated, goal LDL < 70, HbA1c: < 7 Probable stroke etiology/risk factors and long-term prevention were discussed. Common and serious side effects of preventative medications were discussed, including risks of bleeding with antiplatelet agents, and risks of myalgias with statins. High risk acute neurologic condition due to high chance of recurrent stroke/TIA without intervention. Multiple other comorbidities present as well, including HTN. 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 Chronic venous insufficiency Elevated PSA Family history of prostate cancer GERD - Gastro-esophageal reflux disease H/O epistaxis Status: Inactive Hernia, internal History of blood clots History of urinary retention Kidney stones Left ureteral stone Nocturia Non-Insulin Dependent Diabetes Mellitus Renal insufficiency, mild Synovial cyst Ureterovesical junction obstruction Historical Diastasis recti History of UTI Procedure/Surgical History Transperineal biopsy of prostate using magnetic resonance imaging and ultrasonography fusion guidance: 02/01/23 Heart valve replacement - graft: 2012 CABG (Coronary artery bypass grafting) planned: 09/17/12 Colonoscopy Esophagogastroduodenoscopy Cataract extraction and IOL (implantation of intraocular lens) Kidney stone Hiatus hernia repair Carpal tunnel release Medications Inpatient Eliquis, 5 mg= 1 tab(s), Oral, BID Feosol, 325 mg= 1 tab(s), Oral, BIDM glipiZIDE 2.5 mg oral tablet, extended release, 2.5 mg= 1 tab(s), Oral, BIDM Jardiance, 25 mg= 1 tab(s), Oral, qAM leflunomide, 10 mg= 1 tab(s), Oral, qAM lisinopril, 40 mg= 2 tab(s), Oral, qAM metFORMIN 500 mg oral tablet (IR), 500 mg= 1 tab(s), Oral, BIDM Protonix Ther Interch for Nexium 40 mg, 40 mg= 1 tab(s), Oral, qDayAC Saline Mist, 1 spray(s), Nasal, QID, PRN Tylenol PM Extra Strength oral tablet, 2 tab(s), Oral, qHS Vitamin C, 500 mg= 1 tab(s), Oral, BIDM Home Eliquis 5 mg oral tablet, 5 mg= 1 tab(s), Oral, BID esomeprazole 40 mg oral delayed release capsule, 40 mg= 1 cap(s), Oral, qDay glipiZIDE 2.5 mg oral tablet, extended release, 2.5 mg= 1 tab(s), Oral, BIDM IRON (ferrous sulfate 325 mg) 65 mg oral tablet, 325 mg= 1 tab(s), Oral, BIDM Jardiance 25 mg oral tablet, 25 mg= 1 tab(s), Oral, qAM leflunomide 10 mg oral tablet, 10 mg= 1 tab(s), Oral, qAM lisinopril 40 mg oral tablet, 40 mg= 1 tab(s), Oral, qAM metFORMIN 500 mg oral tablet (IR), 500 mg= 1 tab(s), Oral, BIDM Saline Mist 0.65% nasal spray, 2 spray(s), Nasal, QID, PRN Triveratol Gold, 1 EA, Oral, qDay Tylenol PM Extra Strength oral tablet, 2 tab(s), Oral, qHS Vision Essentials, 1 EA, Oral, qDay Vitamin C 500 mg oral tablet, 500 mg= 1 tab(s), Oral, BIDM Allergies NKA Social History Smoking Status - 04/15/2018 Never smoker Alcohol - Denies Alcohol Use, 09/18/2017 Use: Never., 03/28/2023 Employment/School Status: Retired. Previous employment/school: [employer] 03/28/2023 Home/Environment Living situation: Home/Independent. Domestic Concerns: Denies. Lives In: Multilevel home. Current Home Treatments Blood Glucose monitoring, Blood Pressure monitoring, CPAP, HEART MONITOR. Spouse Name: CHRISTIANO. Marital Status: ., 10/18/2023 Nutrition/Health Type of diet: Diabetic. Caffeine intake amount: 1 CUP COFFEE PER DAY. Appetite Excellent. Eating Difficulties None, Swallowing., 10/18/2023 Substance Abuse - Denies Substance Abuse, 09/18/2017 Use: Never., 03/28/2023 Tobacco Nicotine Use: Never (less than 100 in lifetime)., 03/16/2023 Family History Arthritis 28-MAY-2014 16:49:04<$>: Son. Asthma: Brother. Bladder cancer: Negative: Mother, Father, Brother, Son and Grandparent. Colon cancer: Negative: Mother, Father, Sister, Brother, Daughter, Son, Son, Son, Son and Grandparent. Diabetes mellitus: Mother. Heart attack: Son. Heart disease: Mother and Father. Kidney stone: Negative: Mother, Father, Brother, Son and Grandparent. Prostate cancer: Negative: Father and Grandparent. Prostate cancer 03-Mar-2016 02:35:22<$>: Brother. Renal cancer: Negative: Mother, Father, Brother, Son and Grandparent. Stroke: Mother. Health Status Family Member(s) Family Member(s) Relationship: Son, Age: 60 Years Immunizations pneumococcal 13-valent conjugate vaccine: 0 unknown unit (09/12/16) pneumococcal 23-valent vaccine(Pneumovax: 0.5 unknown unit (08/23/17) SARS-CoV-2 (COVID-19) mRNA-1273 vaccine: 0.25 unknown unit (07/28/21) SARS-CoV-2 (COVID-19) mRNA-1273 vaccine: 0.5 unknown unit (10/30/20) SARS-CoV-2 (COVID-19) mRNA-1273 vaccine: 0.5 unknown unit (10/02/20) tetanus/diphth/pertuss (Tdap) adult/adol: 0.5 unknown unit (07/20/18) Digitally Signed by DENISSE SALDIVAR MD on 09/08/2024 12:22 PM [id number]* Exam Date Time Procedure Performing Provider Status 09/07/24 8:[address] Head or Brain w/o Contrast YESENIA RUVALCABA MD; Auth (Verified) [id number] ORIGINAL EXAMINATION: CT OF THE HEAD WITHOUT CONTRAST 09/07/2024 8:14 am TECHNIQUE: CT of the head was performed without the administration of intravenous contrast. Automated exposure control, iterative reconstruction, and/or weight based adjustment of the mA/kV was utilized to reduce the radiation dose to as low as reasonably achievable. COMPARISON: None. HISTORY: ORDERING SYSTEM PROVIDED HISTORY: Reason for Exam: dizziness, htn, no neuro hx, off balance- pt fell into couch last night dizzy FINDINGS: BRAIN/VENTRICLES: There is no acute intracranial hemorrhage, mass effect or midline shift. No abnormal extra-axial fluid collection. The robles-white differentiation is maintained without evidence of an acute infarct. There is no evidence of hydrocephalus. Moderate generalized volume loss. Moderate decreased attenuation in the cerebral white matter. ORBITS: The visualized portion of the orbits demonstrate no acute abnormality. SINUSES: Mucosal thickening is present in the ethmoid air cells. SOFT TISSUES/SKULL: No acute abnormality of the visualized skull or soft tissues. IMPRESSION: No acute intracranial abnormality. Moderate volume loss and small vessel ischemic disease. I have personally reviewed the images of this examination and agree with the resident's findings and interpretation. Interpreted by: Mariel Ruvalcaba Preliminary Report By: Mariya Fulton MD Electronically signed By Mariel Ruvalcaba Dictated Date: 09/07/2024 8:18:45 AM Prelim Date: 09/07/2024 8:25:53 AM Sign Date: 09/07/2024 8:25:53 AM [facility]* Exam Date Time Procedure Performing Provider Status 09/07/24 6:35 AM EKG (ED) - CV EMMANUEL HOLDER MD; Auth (Verified) ECG Final Report SINUS ARRHYTHMIA PROLONGED ME INTERVAL CONSIDER ANTERIOR INFARCT Electronic Signature: EMMANUEL HOLDER MD 09/07/2024 13:47:59 [id number] Note* Exam Date Time Procedure Performing Provider Status 09/07/24 6:25 AM XR Chest 1 View EZEKIEL MENCHACA MD; Auth (Verified) [id number] ORIGINAL EXAMINATION: ONE XRAY VIEW OF THE CHEST09/07/2024 6:25 am COMPARISON: 09/06/2023 HISTORY: ORDERING SYSTEM PROVIDED HISTORY: Reason for Exam: dizzy FINDINGS: Cardiomediastinal contours are within normal limits. Median sternotomy wires and mediastinal surgical clips are seen. No focal consolidation or pulmonary edema. No pleural effusion or visible pneumothorax. No acute osseous abnormality. Degenerative changes of the visualized osseous structures. IMPRESSION: No acute radiographic findings. Preliminary Report was Dictated by a Resident Interpreted by: Ezekiel Menchaca MD Preliminary Report By: Majo Dang Electronically signed By Ezekiel Menchaca MD Dictated Date: 09/07/2024 6:32:15 AM Prelim Date: 09/07/2024 6:33:38 AM Sign Date: 09/07/2024 7:29:17 AM Ordering Provider: [facility]12-13-2024 Note* Exam Date Time Procedure Performing Provider Status 08/17/24 10:16 AM VL Venous US/Doppler One Leg (for DVT). Auth (Verified) [facility] 09-22-2024 Hospital Discharge instructions Patient Education 05/27/2024 10:39:20 Insect Bites and Stings Insect, Spider, and Scorpion Bites and Stings The black (top) and brown recluse (bottom) are two poisonous spiders found in the [place]. Most insect bites are harmless and cause only minor swelling or itching. But if you re allergic to insects such as wasps or bees, a sting can cause a life- threatening allergic reaction. Some ticks can carry and transmit serious diseases. The venom (poison) from scorpions and certain spiders can also be deadly, although this is rare. Knowing when to seek emergency care could save your life. When to go to the emergency room (ER) Scorpion sting Bite from a black, red, or brown spider or brown recluse spider Severe pain or swelling at the site of bite A tick that is embedded in your skin and can not be easily removed at home Signs of an allergic reaction such as: oHives oSwelling of your eyes, lips, or the inside of your throat oTrouble breathing oDizziness or confusion What to expect in the ER If you re having trouble breathing, you ll be given oxygen through a mask. In case of severe breathing difficulty, you may have a tube inserted in your throat and be placed on a ventilator (breathingmachine). If you are having a severe allergic reaction from a sting (called anaphylaxis), you may be given a shot of epinephrine. If it is known that you are allergic to bee or wasp stings, your doctor may give you a prescription for an epi-pen that you can keep with you at all times in case of a sting. You may receive antivenin (a substance that reverses the effects of poison) for some spider bites and scorpion stings. Because antivenin can sometimes cause other problems, your doctor will weigh therisks and benefits of this treatment. Steroids such as prednisone are often used to treat allergic reactions. In many cases, your doctor will also prescribe an antihistamine to help relieve itching. Easing symptoms of an insect bite or sting Try to remove a stinger you can see. Use your fingernail, a knife edge, or credit card to scrape against the skin. Do not squeeze or pull. Apply ice or a cold compress to reduce pain and swelling (keep a thin cloth between the cold sourceand the skin). 2600-8005 [employer]. [address] [place] [address], [place] [address]. All rights reserved. This information is not intended as a substitute for professional medical care. Always follow yourhealthcare professional's instructions. Follow Up Care 05/27/2024 09:13:31 With:JAKI FLEMING DO, Internal Medicine, [facility] Address: [address] [place] [address] [place] [address] [phone] When:2-4 days [facility] 09-22-2024 Emergency department Discharge summary Discharge Instructions Thank you for allowing [facility] to assist you with your healthcare needs. The following is importantdischarge information regarding your hospital visit. What to Do Next Instructions from Your Care Team Apply cool compresses to the area. Take Benadryl as needed. No qualifying data available. Post Acute Orders No qualifying data available. You Need to Schedule the Following Appointments Follow Up with JAKI FLEMING DO, Internal Medicine, [facility] When:Within 2-4 days Where:[address] [facility] [place] [address]- [phone] Allergies NKA Medications Please ask your primary doctor or pharmacist before taking any other medication not listed, including over the counter drugs, herbal medications, vitamins and or supplements as they may interact withyour home medications. What How Much When Instructions Last Dose New diphenhydrAMINE (Benadryl 25 mg oral capsule) 1 cap by mouth Every 4 hours as needed for Rash Duration: 5 Days Printed Prescription Unchanged acetaminophen-diphenhydramine (Tylenol PM Extra Strength oral tablet) 2 tab(s) by mouth Daily at bedtime as needed for as needed for sleep Unchanged apixaban (Eliquis 5 mg oral tablet) by mouth Two (2) times a day Unchanged ascorbic acid (Vitamin C 1000 mg oral tablet) 1 tab(s) by mouth Once a day Unchanged cholecalciferol (Vitamin D3 50 mcg (2000 intl units) oral capsule) 1 cap by mouth Once a day Unchanged esomeprazole (esomeprazole 40 mg oral delayed release capsule) 1 cap by mouth Once a day Unchanged ferrous sulfate (IRON (ferrous sulfate 325 mg) 65 mg oral tablet) 1 tab(s) by mouth Daily at 12 noon Take with food. Unchanged furosemide (Lasix 20 mg oral tablet) 1 tab(s) by mouth Once a day Unchanged glimepiride (Amaryl 1 mg oral tablet) 1 tab(s) by mouth Twice daily with meals Unchanged leflunomide (leflunomide 10 mg oral tablet) 1 tab(s) by mouth Once a day (in the morning) Unchanged lisinopril (lisinopril 40 mg oral tablet) 1 tab(s) by mouth Daily at bedtime Unchanged metformin-sitagliptin (Janumet 50 / 1000 mg oral tablet) 1 tab(s) by mouth Twice daily with meals Unchanged multivitamin (Multivitamin) 1 tab(s) by mouth Every day Unchanged ocular lubricant (Dry Eye Relief ophthalmic solution) 2 Drops Both eyes Once a day as needed for as needed for dry eyes Unchanged tamsulosin (tamsulosin 0.4 mg oral capsule) 1 cap by mouth Once a day after a meal Unchanged trimethoprim (trimethoprim 100 mg oral tablet) 1 tab(s) by mouth Every 12 hours Please take this list to your next doctor s visit. Bring all medications you take, including over the counter medications, herbals and other supplements with you to your doctor s visit. Patients and families are reminded to discard old lists and to update any records with all medication providers or retail pharmacies. Education Materials Insect, Spider, and Scorpion Bites and Stings The black (top) and brown recluse (bottom) are two poisonous spiders found in the [place]. Most insect bites are harmless and cause only minor swelling or itching. But if you re allergic to insects such as wasps or bees, a sting can cause a life- threatening allergic reaction. Some ticks can carry and transmit serious diseases. The venom (poison) from scorpions and certain spiders can also be deadly, although this is rare. Knowing when to seek emergency care could save your life. When to go to the emergency room (ER) Scorpion sting Bite from a black, red, or brown spider or brown recluse spider Severe pain or swelling at the site of bite A tick that is embedded in your skin and can not be easily removed at home Signs of an allergic reaction such as: oHives oSwelling of your eyes, lips, or the inside of your throat oTrouble breathing oDizziness or confusion What to expect in the ER If you re having trouble breathing, you ll be given oxygen through a mask. In case of severe breathing difficulty, you may have a tube inserted in your throat and be placed on a ventilator (breathingmachine). If you are having a severe allergic reaction from a sting (called anaphylaxis), you may be given a shot of epinephrine. If it is known that you are allergic to bee or wasp stings, your doctor may give you a prescription for an epi-pen that you can keep with you at all times in case of a sting. You may receive antivenin (a substance that reverses the effects of poison) for some spider bites and scorpion stings. Because antivenin can sometimes cause other problems, your doctor will weigh therisks and benefits of this treatment. Steroids such as prednisone are often used to treat allergic reactions. In many cases, your doctor will also prescribe an antihistamine to help relieve itching. Easing symptoms of an insect bite or sting Try to remove a stinger you can see. Use your fingernail, a knife edge, or credit card to scrape against the skin. Do not squeeze or pull. Apply ice or a cold compress to reduce pain and swelling (keep a thin cloth between the cold sourceand the skin). 5938-6149 [employer]. [address] [place] [address], [place] [address]. All rights reserved. This information is not intended as a substitute for professional medical care. Always follow yourhealthcare professional's instructions. Additional Information VACCINATE! IT SAVES LIVES! Members of the community who have not yet received the COVID-19 vaccine and would like to receive it can visit one of [facility] vaccine clinics. There are many vaccine clinic locations within the [facility]. For locations and available times, please visit www.[email or web address].[email or web address]/. It is important to note that some COVID mobile vaccine clinics are held outdoors and may be canceled in rainy or stormy conditions. To learn more about pediatric vaccinations (ages 5-11), we invite you to visit the [facility] webpage. [email or web address]/[email or web address] [email or web address] learn more about the COVID-19 vaccine, we invite you to visit the CDC website for a list of frequently asked questions. https://www.cdc.gov/coronavirus/2019-ncov/vaccines/faq.html [facility] Access Instructions: Stay connected with your healthcare team and access your personal medical information anytime with the [facility] Patient Portal. If you would like a full copy of your medical records please contact the [facility] Medical Records Department Tuesday through Tuesday between 8a.m. and 4:30p.m. Please follow the directions below to access the portal: 1.Access the email account you provided upon registration to the hospital.2.Look for an invitation email from [facility].3.Open the email and access the invitation link: [facility].Fill in the required ortega to create your account. Sign into [email or web address] with your username and password that you created in the above steps to stay up to date. You can then view a summary of results, a summary of your visits, and the ability to download your summaries to your computer or send the information securely to a physician. Remember that your healthcare information is confidential, so carefully consider who you will allow to register on the [facility] Patient Portal for access to your information. You can also access the [facility] Patient Portal on the [employer]. Simply click on Health Records under Access Media 3 and then click on the [employer] logo. HOW TO SAFELY DISPOSE OF PRESCRIPTION MEDICATIONS Please use one of the following methods to safely dispose of your unused medications. 1.Use a drug disposal kit: the drug disposal pouch allows you to safely discard your old and unuseddrugs. Ask your nurse to give you one when you are discharged.2.Visit a local take-back location: Many local pharmacies and police departments have programs that collect old and unwanted prescriptiondrugs. Call your local pharmacy or go to http://[employer].Folloze/2R5Kx5k to find one close to you.3.Make use of household items: Use cat litter or old coffee grounds to dispose medications if other options arenot available. Mix your drugs with these household products, seal them in an airtight container andthrow it into the garbage. Call [facility]: [phone] to be sure your drugs can be disposed of in this way. Some medicines may require a different approach.4.Never flush your medications down the toilet. IF YOU HAVE BEEN PRESCRIBED AN OPIOIDS FOR PAIN If you have been prescribed an opioid (such as hydrocodone, oxycodone or morphine), it is critical to understand the possible side effects and risks of opioid pain medications. Even when taken as directed, opioids can have several side effects including: Tolerance, meaning you might need to take more of a medication for the same pain relief. Nausea, vomiting and/or constipation. Sleepiness, dizziness, dry mouth, confusion, depression or itching. Physical dependence, meaning you have withdrawal symptoms when a medication is stopped ? this can develop within a few days. KNOW YOUR RESPONSIBILITIES It is important to know exactly how much and how often to take the opioid pain medications you are prescribed. Never take opioids in higher amounts or more often than prescribed. Do not combine opioids with alcohol or other drugs that cause drowsiness, such as benzodiazepines, also known as benzos,including diazepam and alprazolam, muscle relaxants or sleep aids. Never sell or share prescriptionopioids. This is illegal. Store opioids in a secure place and out of reach of others (including children, family, friends and visitors). The last page(s) of this document has been signed and retained as a CHART COPY Signatures Patient Education Materials Insect Bites and Stings Medication Leaflets My discharge plan and instructions have been reviewed and explained to me and I,JAYLEN GALAVIZ understand my current condition and have read and understand these discharge instructions. I have received a written copy of the plan/instructions. If I have questions, I am aware that I should contact my doctor. 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 Everyone has this pain from time to time. In many cases it goes away on its own. But abdominal pain can sometimes be due to a serious problem, such as appendicitis. So it s important to know when to get help. Causes of abdominal pain There are many possible causes of abdominal pain. Common causes in adults include: Constipation, diarrhea, or gas Stomach acid flowing back up into the esophagus (acid reflux or heartburn) Severe acid reflux, called GERD (gastroesophageal reflux disease) A sore in the lining of the stomach or small intestine (peptic ulcer) Inflammation of the gallbladder, liver, or pancreas Gallstones or kidney stones Appendicitis Intestinal blockage An internal organ pushing through a muscle or other tissue (hernia) Urinary tract infections In women, menstrual cramps, fibroids, ovarian cysts, pelvic inflammatory disease, or endometriosis Inflammation or infection of the intestines, including Crohn's disease and ulcerative colitis Irritable bowel syndrome Diagnosing the cause of abdominal pain Your healthcare provider will give you a physical exam help find the cause of your pain. If needed,you will have tests. Belly pain has many possible causes. So it can be hard to find the reason for your pain. Giving details about your pain can help. Tell your provider where and when you feel the pain, and what makes it better or worse. Also let your provider know if you have other symptoms such as: Fever Tiredness Upset stomach (nausea) Vomiting Changes in bathroom habits Blood in the stool or black, tarry stool Weight loss that you can't explain (involuntary weight loss?) Also report any family history of stomach or intestinal problems, or cancers. Tell your provider about all your alcohol use and drug use. Tell your provider about all medicines you use, including herbs, vitamins, and supplements. Treating abdominal pain Some causes of pain need emergency medical treatment right away. These include appendicitis or a bowel blockage. Other problems can be treated with rest, fluids, or medicines. Your healthcare provider can give you specific instructions for treatment or self-care based on what is causing your pain. If you have vomiting or diarrhea, sip water or other clear fluids. When you are ready to eat solid foods again, start with small amounts of arzc-eo-fstupa, low- fat foods. These include apple sauce, toast, or crackers. When to get medical care Call 911 or go to the hospital right away if you: Can t pass stool and are vomiting Are vomiting blood or have bloody diarrhea or black, tarry diarrhea Have chest, neck, or shoulder pain Feel like you might pass out Have pain in your shoulder blades with nausea Have sudden, severe belly pain Have new, severe pain unlike any you have felt before Have a belly that is rigid, hard, and hurts to touch Call your healthcare provider if you have: Pain for more than 5 days Bloating for more than 2 days Diarrhea for more than 5 days A fever of 100.4 F (38 C) or higher, or as directed by your healthcare provider Pain that gets worse Weight loss for no reason Continued lack of appetite Blood in your stool How to prevent abdominal pain Here are some tips to help prevent abdominal pain: Eat smaller amounts of food at each meal. Don't eat greasy, fried, or other high-fat foods. Don't eat foods that give you gas. Exercise regularly. Drink plenty of fluids. To help prevent GERD symptoms: Quit smoking. Reduce alcohol and foods that increase stomach acid. Don't use aspirin or laed-nvw-ghwaslk pain and fever medicines, if possible. This includes nonsteroidal anti-inflammatory drugs (NSAIDs). Lose excess weight. Finish eating at least 2 hours before you go to bed or lie down. Raise the head of your bed. 6882-0264 [employer]. [address] [place] [address]. All rights reserved. This information is not intended as a substitute for professional medical care. Always follow yourhealthcare professional's instructions. Follow Up Care 05/04/2024 06:40:36 With:JAKI FLEMING DO, Internal Medicine, [facility] Address: [address] [place] [address] [place] [address]- [phone] When:2-4 days [facility] 08-30-2024 Emergency department Discharge summary Discharge Instructions Thank you for allowing [facility] to assist you with your healthcare needs. The following is importantdischarge information regarding your hospital visit. What to Do Next Instructions from Your Care Team No qualifying data available. Post Acute Orders No qualifying data available. You Need to Schedule the Following Appointments Follow Up with JAKI FLEMING DO, Internal Medicine, [facility] / IM When:Within 2-4 days Where:[address] [place] [address] [place] [address]- [phone] Allergies NKA Medications Please ask your primary doctor or pharmacist before taking any other medication not listed, including over the counter drugs, herbal medications, vitamins and or supplements as they may interact withyour home medications. What How Much When Instructions Last Dose Unchanged acetaminophen- diphenhydramine (Tylenol PM ExtraStrength oral tablet) 2 tab(s) by mouth Daily at bedtime as needed for as needed for sleep Unchanged apixaban (Eliquis 5 mg oral tablet) by mouth Two (2) times a day Unchanged ascorbic acid (Vitamin C 1000 mg oral tablet) 1 tab(s) by mouth Once a day Unchanged cholecalciferol (Vitamin D3 50 mcg (2000 intl units) oral capsule) 1 cap by mouth Once a day Unchanged esomeprazole (esomeprazole 40 mg oral delayed release capsule) 1 cap by mouth Once a day Unchanged ferrous sulfate (IRON (ferrous sulfate 325 mg) 65 mg oral tablet) 1 tab(s) by mouth Daily at 12 noon Take with food. Unchanged furosemide (Lasix 20 mg oral tablet) 1 tab(s) by mouth Once a day Unchanged glimepiride (Amaryl 1 mg oral tablet) 1 tab(s) by mouth Twice daily with meals Unchanged leflunomide (leflunomide 10 mg oral tablet) 1 tab(s) by mouth Once a day (in the morning) Unchanged lisinopril (lisinopril 40 mg oral tablet) 1 tab(s) by mouth Daily at bedtime Unchanged metformin-sitagliptin (Janumet 50 / 1000 mg oral tablet) 1 tab(s) by mouth Twice daily with meals Unchanged multivitamin (Multivitamin) 1 tab(s) by mouth Every day Unchanged ocular lubricant (Dry Eye Relief ophthalmic solution) 2 Drops Both eyes Once a day as needed for as needed for dry eyes Unchanged tamsulosin (tamsulosin 0.4 mg oral capsule) 1 cap by mouth Once a day after a meal Unchanged trimethoprim (trimethoprim 100 mg oral tablet) 1 tab(s) by mouth Every 12 hours Please take this list to your next doctor s visit. Bring all medications you take, including over the counter medications, herbals and other supplements with you to your doctor s visit. Patients and families are reminded to discard old lists and to update any records with all medication providers or retail pharmacies. Education Materials Abdominal Pain Abdominal pain is pain in the stomach or belly area. Everyone has this pain from time to time. In many cases it goes away on its own. But abdominal pain can sometimes be due to a serious problem, such as appendicitis. So it s important to know when to get help. Causes of abdominal pain There are many possible causes of abdominal pain. Common causes in adults include: Constipation, diarrhea, or gas Stomach acid flowing back up into the esophagus (acid reflux or heartburn) Severe acid reflux, called GERD (gastroesophageal reflux disease) A sore in the lining of the stomach or small intestine (peptic ulcer) Inflammation of the gallbladder, liver, or pancreas Gallstones or kidney stones Appendicitis Intestinal blockage An internal organ pushing through a muscle or other tissue (hernia) Urinary tract infections In women, menstrual cramps, fibroids, ovarian cysts, pelvic inflammatory disease, or endometriosis Inflammation or infection of the intestines, including Crohn's disease and ulcerative colitis Irritable bowel syndrome Diagnosing the cause of abdominal pain Your healthcare provider will give you a physical exam help find the cause of your pain. If needed,you will have tests. Belly pain has many possible causes. So it can be hard to find the reason for your pain. Giving details about your pain can help. Tell your provider where and when you feel the pain, and what makes it better or worse. Also let your provider know if you have other symptoms such as: Fever Tiredness Upset stomach (nausea) Vomiting Changes in bathroom habits Blood in the stool or black, tarry stool Weight loss that you can't explain (involuntary weight loss?) Also report any family history of stomach or intestinal problems, or cancers. Tell your provider about all your alcohol use and drug use. Tell your provider about all medicines you use, including herbs, vitamins, and supplements. Treating abdominal pain Some causes of pain need emergency medical treatment right away. These include appendicitis or a bowel blockage. Other problems can be treated with rest, fluids, or medicines. Your healthcare provider can give you specific instructions for treatment or self-care based on what is causing your pain. If you have vomiting or diarrhea, sip water or other clear fluids. When you are ready to eat solid foods again, start with small amounts of aoxy-yc-iuzpsy, low- fat foods. These include apple sauce, toast, or crackers. When to get medical care Call 911 or go to the hospital right away if you: Can t pass stool and are vomiting Are vomiting blood or have bloody diarrhea or black, tarry diarrhea Have chest, neck, or shoulder pain Feel like you might pass out Have pain in your shoulder blades with nausea Have sudden, severe belly pain Have new, severe pain unlike any you have felt before Have a belly that is rigid, hard, and hurts to touch Call your healthcare provider if you have: Pain for more than 5 days Bloating for more than 2 days Diarrhea for more than 5 days A fever of 100.4 F (38 C) or higher, or as directed by your healthcare provider Pain that gets worse Weight loss for no reason Continued lack of appetite Blood in your stool How to prevent abdominal pain Here are some tips to help prevent abdominal pain: Eat smaller amounts of food at each meal. Don't eat greasy, fried, or other high-fat foods. Don't eat foods that give you gas. Exercise regularly. Drink plenty of fluids. To help prevent GERD symptoms: Quit smoking. Reduce alcohol and foods that increase stomach acid. Don't use aspirin or etdg-esr-crjbprf pain and fever medicines, if possible. This includes nonsteroidal anti-inflammatory drugs (NSAIDs). Lose excess weight. Finish eating at least 2 hours before you go to bed or lie down. Raise the head of your bed. 5515-6395 [employer]. [address] [place] [address]. All rights reserved. This information is not intended as a substitute for professional medical care. Always follow yourhealthcare professional's instructions. Additional Information VACCINATE! IT SAVES LIVES! Members of the community who have not yet received the COVID-19 vaccine and would like to receive it can visit one of [facility] vaccine clinics. There are many vaccine clinic locations within the [facility]. For locations and available times, please visit [email or web address].[email or web address]/. It is important to note that some COVID mobile vaccine clinics are held outdoors and may be canceled in rainy or stormy conditions. To learn more about pediatric vaccinations (ages 5-11), we invite you to visit the [facility] webpage. [email or web address]/pages/[email or web address]-[email or web address] [email or web address] learn more about the COVID-19 vaccine, we invite you to visit the CDC website for a list of frequently asked questions. https://www.cdc.gov/coronavirus/2019-ncov/vaccines/faq.html [facility] Patient Portal Access Instructions: Stay connected with your healthcare team and access your personal medical information anytime with the [facility] Patient Portal. If you would like a full copy of your medical records please contact the [facility] Medical Records Department Tuesday through Tuesday between 8a.m. and 4:30p.m. Please follow the directions below to access the portal: 1.Access the email account you provided upon registration to the [facility].2.Look for an invitation email from [facility].3.Open the email and access the invitation link: Accept Invitation to [facility]4.Fill in the required ortega to create your account. Sign into [email or web address] with your username and password that you created in the above steps to stay up to date. You can then view a summary of results, a summary of your visits, and the ability to download your summaries to your computer or send the information securely to a physician. Remember that your healthcare information is confidential, so carefully consider who you will allow to register on the [facility] Patient Portal for access to your information. You can also access the [facility] Patient Portal on the [employer]. Simply click on Health Records under Access Media 3 and then click on the [facility] logo. HOW TO SAFELY DISPOSE OF PRESCRIPTION MEDICATIONS Please use one of the following methods to safely dispose of your unused medications. 1.Use a drug disposal kit: the drug disposal pouch allows you to safely discard your old and unuseddrugs. Ask your nurse to give you one when you are discharged.2.Visit a local take-back location: Many local pharmacies and police departments have programs that collect old and unwanted prescriptiondrugs. Call your local pharmacy or go to http://bit.Folloze/1F7Ng4m to find one close to you.3.Make use of household items: Use cat litter or old coffee grounds to dispose medications if other options arenot available. Mix your drugs with these household products, seal them in an airtight container andthrow it into the garbage. Call [facility]: [phone] to be sure your drugs can be disposed of in this way. Some medicines may require a different approach.4.Never flush your medications down the toilet. IF YOU HAVE BEEN PRESCRIBED AN OPIOIDS FOR PAIN If you have been prescribed an opioid (such as hydrocodone, oxycodone or morphine), it is critical to understand the possible side effects and risks of opioid pain medications. Even when taken as directed, opioids can have several side effects including: Tolerance, meaning you might need to take more of a medication for the same pain relief. Nausea, vomiting and/or constipation. Sleepiness, dizziness, dry mouth, confusion, depression or itching. Physical dependence, meaning you have withdrawal symptoms when a medication is stopped ? this can develop within a few days. KNOW YOUR RESPONSIBILITIES It is important to know exactly how much and how often to take the opioid pain medications you are prescribed. Never take opioids in higher amounts or more often than prescribed. Do not combine opioids with alcohol or other drugs that cause drowsiness, such as benzodiazepines, also known as benzos,including diazepam and alprazolam, muscle relaxants or sleep aids. Never sell or share prescriptionopioids. This is illegal. Store opioids in a secure place and out of reach of others (including children, family, friends and visitors). The last page(s) of this document has been signed and retained as a CHART COPY Signatures Patient Education Materials Abdominal Pain Medication Leaflets My discharge plan and instructions have been reviewed and explained to me and IGUILLAUME GORDON E understand my current condition and have read and understand these discharge instructions. I have received a written copy of the plan/instructions. If I have questions, I am aware that I should contact my doctor. 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 Signature: Date/Time: Relationship to Patient: Witness Name/Signature: [id number] Note ORIGINAL EXAMINATION: CT OF THE ABDOMEN AND PELVIS WITH CONTRAST 05/04/2024 10:35 am TECHNIQUE: CT of the abdomen and pelvis was performed with the administration of intravenous contrast. Multiplanar reformatted images are provided for review. Automated exposure control, iterative reconstruction, and/or weight based adjustment of the mA/kV was utilized to reduce the radiation dose to as low as reasonably achievable. COMPARISON: 09/20/2023 and 06/01/2023 HISTORY: ORDERING SYSTEM PROVIDED HISTORY: Reason for Exam: pt c/o rt side pain sharp last night, still having pain today, hx kidney stones w removal abdominal pain FINDINGS: The lung bases demonstrate mild cardiomegaly with prior CABG changes. Coronary artery atherosclerotic calcifications. Sternotomy wires. Calcified hilar and pulmonary calcified granulomas. Areas of bronchiectasis with subpleural reticular fibrosis noted. No focal hepatic lesion. Tiny calcified splenic granuloma. The adrenal glands and pancreas are unremarkable. The gallbladder is collapsed. Punctate bilateral nonobstructive nephrolithiasis. Left simple renal cyst. No hydronephrosis. There is minimal urothelial thickening of the right UPJ which is likely chronic. No visible ureteral stone. The bladder is under distended with borderline wall thickening. Small hiatal hernia. Tiny duodenal diverticulum. No dilated loops of small bowel. Normal appendix. Marked diverticulosis is noted. No significant adjacent inflammation is identified to suggest diverticulitis. Atherosclerotic nonaneurysmal abdominal aorta. No free intraperitoneal air. No enlarged lymph nodes. Postsurgical changes of the right inguinal canal. Enlarged prostate. 3.0 cm peripherally hyperdense cystic area posterior to the prostate (2, 119). This area appears slightly more homogeneous and smaller when compared to 09/20/2023 exam. Multilevel degenerative changes of the spine. Degenerative grade 1 anterolisthesis of L4 on L5. Minimal degenerative retrolisthesis L1 on L2, L2 on L3, and L3 on L4. Degenerative changes of the spine and hips. IMPRESSION: No acute process within the abdomen/pelvis. Peripherally hyperdense cystic area posterior to the prostate appears more homogeneous and smaller from comparison 09/20/2023 exam and is favored to represent postoperative changes such as Hydrogel spacer. Bilateral nonobstructive nephrolithiasis. No hydronephrosis. Borderline bladder wall thickening which may relate to under distension, cystitis, or perhaps chronic outlet obstruction. Correlation with urinalysis is recommended. I have personally reviewed the images of this examination and agree with the resident's findings and interpretations. Interpreted by: Yg Guerrero Preliminary Report By: Enid Brand Electronically signed By Yg Guerrero Dictated Date: 05/04/2024 10:35:42 AM Prelim Date: 05/04/2024 11:02:04 AM Sign Date: 05/04/2024 11:13:30 AM Ordering Provider: ISADORA [facility]07-10-2024 Note* Exam Date Time Procedure Performing Provider Status 03/14/24 9:31 AM VL Duplex Scan Aorta /Iliacs Complete AOH Auth (Verified) [facility] 06-08-2024 Note* Addendum Note - Barrett Huff PA-C - 02/11/2024 4:08 PM EDTAddended by: BARRETT HUFF on: 02/11/2024 04:08 PM Modules accepted: Orders [facility]06-08-2024 Miscellaneous Notes* Addendum Note - Barrett Huff PA-C - 02/11/2024 4:08 PM EDTAddended by: BARRETT HUFF on: 02/11/2024 04:08 PM Modules accepted: Orders documented in [facility] NoteHNO ID: [id number] Author: BARRETT HUFF PA-C Service: ? Author Type: Physician Pipe Processor Type: Progress Notes Filed: 02/11/2024 14:38 Note Text: This is a 89-year-old male with a past medical history of chronic kidney disease and diabetes presents with 2 painful wounds to the left upper buttock. He states about a week and a half ago he was using a heating pad for the chronic pain in his left hip and he fell asleep. When he woke up he noticed 2 small blisters to the left upper buttock. He states they have opened up. He has been trying to keep the wounds clean and covered however today his noticed that they were little red. He states he has developed some increased pain. No fevers, chills, nausea or vomiting, pus drainage from the wounds, weakness or confusion. The history is provided by the patient. 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 Benign hypertension Bilateral leg pain CAD in [place] artery Centrilobular emphysema (HCC) CKD (chronic kidney disease) stage 3, GFR 30-59 ml/min (HCC) Diabetes mellitus (HCC) MAZARIEGOS (dyspnea on exertion) Dysuria Elevated brain natriuretic peptide (BNP) level Fatigue Fatty infiltration of liver Ground glass opacity present on imaging of lung History of echocardiogram 09/30/2017 EF 55-60% grade 1 diastolic dysfunction aortic valve bioprosthesis is present and functioning normally mild TR History of echocardiogram 08/18/2020 concentric LVH EF 55-60% grade 1 diastolic dysfunction mild MR History of echocardiogram 08/18/2020 EF 55-60% grade 1 diastolic dysfunction normally functioning bioprosthetic valve mean gradient 13mmHg mild MR History of stress test 08/22/2018 no evidence of ischemia or infarction abnormal septal motion EF 59% Lung nodule seen on imaging study Mixed hyperlipidemia Myalgia Obesity (BMI 30-39.9) ROBERT (obstructive sleep apnea) PMR (polymyalgia rheumatica) ([facility]) Pulmonary fibrosis ([facility]) 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 [place] 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 ferrous sulfate (FEOSOL) 325 mg (65 mg iron) tablet 325 mg. leflunomide (ARAVA) 10 mg tablet Take 10 mg by mouth once daily. SITagliptin-metFORMIN (JANUMET) 50-1,000 mg per tablet Take 1 tablet by mouth twice daily with meals. lisinopril (ZESTRIL, PRINIVIL) 40 mg tablet Take 40 mg by mouth once daily. Multivitamin capsule Take 1 capsule by mouth once daily. cholecalciferol (VITAMIN D-3) 50 mcg (2,000 unit) tablet Take 5,000 Units by mouth once daily. Vitamin E, dl, acetate, (VITAMIN E) 400 unit capsule Take 400 Units by mouth once daily. doxycycline hyclate (VIBRAMYCIN) 100 mg capsule Take 1 capsule (100 mg) by mouth two times a day for 7 days. 14 capsule 0 mupirocin (BACTROBAN) 2 % ointment Apply 1 application to affected area three times a day. 30 g 0 glimepiride (AMARYL) 1 mg tablet Take 1 mg by mouth twice daily with meals. (Patient not taking: Reported on 02/11/2024) aspirin, enteric coated (ASPIRIN, ENTERIC COATED) 81 mg EC tablet Take 81 mg by mouth once daily. (Patient not taking: Reported on 02/11/2024) CPAP (Patient not taking: Reported on 02/11/2024) pantoprazole DR (PROTONIX) 40 mg tablet Take 40 mg by mouth once daily. (Patient not taking: Reported on 02/11/2024) hydrOXYchloroQUINE (PLAQUENIL) 200 mg tablet Take 200 mg by mouth twice daily. (Patient not taking: Reported on 02/11/2024) saw palmetto/pumpkin/pyg/Zn/B6 (SAW PALMETTO COMPLEX,PUMPK-ZN, ORAL) Take by mouth once daily. (Patient not taking: Reported on 02/11/2024) diphenhydrAMINE-Acetaminophen (TYLENOL PM EXTRA STRENGTH) 25-500 mg tab Take 2 tablets by mouth daily at bedtime. (Patient not taking: Reported on 02/11/2024) No current facility-administered medications for this visit. Social History Tobacco Use Smoking status: Never Passive exposure: Never Smokeless tobacco: Never Vaping Use Vaping Use: Never used Substance Use Topics Alcohol use: Never Drug use: Never Review of Systems Constitutional: Negative for chills and fever. Respiratory: Negative for shortness of breath. Cardiovascular: Negative for chest pain. Gastrointestinal: Negative for nausea and vomiting. Neurological: Negative for dizziness and weakness. BP 119/61 Pulse 67 Temp (Src) 97 (Temporal) Resp 16 SpO2 96% Physical Exam Vitals an (more content not included)...[facility]06-08-2024 History of Present illness Narrative* Barrett Huff PA-C - 02/11/2024 2:30 PM EDT Images from the original note were not included. This is a 89-year-old male with a past medical history of chronic kidney disease and diabetes presents with 2 painful wounds to the left upper buttock. He states about a week and a half ago he was using a heating pad for the chronic pain in his left hip and he fell asleep. When he woke up he noticed 2 small blisters to the left upper buttock. He states they have opened up. He has been trying to keep the wounds clean and covered however today his noticed that they were little red. He stateshe has developed some increased pain. No fevers, chills, nausea or vomiting, pus drainage from the wounds, weakness or confusion. The history is provided by the patient. 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 Benign hypertension Bilateral leg pain CAD in [place] artery Centrilobular emphysema ([facility]) CKD (chronic kidney disease) stage 3, GFR 30-59 ml/min ([facility]) Diabetes mellitus ([facility]) MAZARIEGOS (dyspnea on exertion) Dysuria Elevated brain natriuretic peptide (BNP) level Fatigue Fatty infiltration of liver Ground glass opacity present on imaging of lung History of echocardiogram 09/30/2017 EF 55-60% grade 1 diastolic dysfunction aortic valve bioprosthesis is present and functioning normally mild TR History of echocardiogram 08/18/2020 concentric LVH EF 55-60% grade 1 diastolic dysfunction mild MR History of echocardiogram 08/18/2020 EF 55-60% grade 1 diastolic dysfunction normally functioning bioprosthetic valve mean gradient 13mmHg mild MR History of stress test 08/22/2018 no evidence of ischemia or infarction abnormal septal motion EF 59% Lung nodule seen on imaging study Mixed hyperlipidemia Myalgia Obesity (BMI 30-39.9) ROBERT (obstructive sleep apnea) PMR (polymyalgia rheumatica) ([facility]) Pulmonary fibrosis ([facility]) 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 [place] 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 ferrous sulfate (FEOSOL) 325 mg (65 mg iron) tablet 325 mg. leflunomide (ARAVA) 10 mg tablet Take 10 mg by mouth once daily. SITagliptin-metFORMIN (JANUMET) 50-1,000 mg per tablet Take 1 tablet by mouth twice daily with meals. lisinopril (ZESTRIL, PRINIVIL) 40 mg tablet Take 40 mg by mouth once daily. Multivitamin capsule Take 1 capsule by mouth once daily. cholecalciferol (VITAMIN D-3) 50 mcg (2,000 unit) tablet Take 5,000 Units by mouth once daily. Vitamin E, dl, acetate, (VITAMIN E) 400 unit capsule Take 400 Units by mouth once daily. doxycycline hyclate (VIBRAMYCIN) 100 mg capsule Take 1 capsule (100 mg) by mouth two times a day for 7 days. 14 capsule 0 mupirocin (BACTROBAN) 2 % ointment Apply 1 application to affected area three times a day. 30 g 0 glimepiride (AMARYL) 1 mg tablet Take 1 mg by mouth twice daily with meals. (Patient not taking: Reported on 02/11/2024) aspirin, enteric coated (ASPIRIN, ENTERIC COATED) 81 mg EC tablet Take 81 mg by mouth once daily. (Patient not taking: Reported on 02/11/2024) CPAP (Patient not taking: Reported on 02/11/2024) pantoprazole DR (PROTONIX) 40 mg tablet Take 40 mg by mouth once daily. (Patient not taking: Reported on 02/11/2024) hydrOXYchloroQUINE (PLAQUENIL) 200 mg tablet Take 200 mg by mouth twice daily. (Patient not taking:Reported on 02/11/2024) saw palmetto/pumpkin/pyg/Zn/B6 (SAW PALMETTO COMPLEX,PUMPK-ZN, ORAL) Take by mouth once daily. (Patient not taking: Reported on 02/11/2024) diphenhydrAMINE-Acetaminophen (TYLENOL PM EXTRA STRENGTH) 25-500 mg tab Take 2 tablets by mouth daily at bedtime. (Patient not taking: Reported on 02/11/2024) No current facility-administered medications for this visit. Social History Tobacco Use Smoking status: Never Passive exposure: Never Smokeless tobacco: Never Vaping Use Vaping Use: Never used Substance Use Topics Alcohol use: Never Drug use: Never Review of Systems Constitutional: Negative for chills and fever. Respiratory: Negative for shortness of breath. Cardiovascular: Negative for chest pain. Gastrointestinal: Negative for nausea and vomiting. Neurological: Negative for dizziness and weakness. BP 119/61 Pulse 67 Temp (Src) 97 (Temporal) Resp 16 SpO2 96% Physical Exam Vitals and nursing note reviewed. Constitutional: General: He is not in acute distress. Appearance: He is not ill-appearing or toxic-appearing. HENT: Head: Normocephalic and atraumatic. Mouth/Throat: Mouth: Mucous membranes are moist. Cardiovascular: Rate and Rhythm: Normal rate and regular rhythm. Pulmonary: Effort: Pulmonary effort is normal. No respiratory distress. Breath sounds: No stridor. No wheezing, rhonchi or rales. Musculoskeletal: Back: Comments: Marked areas are where there are quarter sized oval-shaped shallow wounds with granulatedwound bed with approximately 2 cm of surrounding erythema. No induration or fluctuance. No active drainage. No lymphangitic streaking. Skin: General: Skin is warm and dry. Neurological: Mental Status: He is alert. Comments: Awake and alert. Motor gross intact. Steady gait. This is an 89-year-old male here with thermal burn wounds to the left upper buttock. At the time ofmy exam, patient was afebrile, well-appearing, well- hydrated, not hypoxic, non-toxic and in no acute distress and appropriate for outpatient treatment and management. No clinical concern for abscess,necrotizing fasciitis or lymphangitis. I am concerned he is developing a mild localized cellulitis therefore I am going to start him on antibiotics. Discussed signs and symptoms, progression, and treatment. Patient education provided and discussed along with printed information regarding treatment and follow-up. Patient advised to follow-up with patient's PCP in 3-5 days if no improvement in sympt oms. Discussed signs/symptoms and red flags to monitor for and should symptoms worsen, advised patient to go to nearest ER for evaluation. Patient agreeable to plan and verbalized understanding. Pt discharged home in stable condition. (T07.XXXA) Multiple open wounds (primary encounter diagnosis) Comment: left upper buttocks Plan: mupirocin (BACTROBAN) 2 % ointment (L03.317) Cellulitis of left buttock Comment: Plan: doxycycline hyclate (VIBRAMYCIN) 100 mg capsule -frequent hand washing -gentle skin care, no scrubbing. Keep area clean and dry -antibiotic medication sent to your pharmacy. Doxycycline twice daily for 7 days. - drink a full glass of water with each dose - do not take with milk/dairy products - avoid sun exposure - it raises your risk for burn - if you take calcium or iron supplements, do not take them while you take this, or take them at a different time of day - stay upright for 30 minutes after taking this medicine -Bactroban applied to the open wounds twice daily -call your primary care doctor tomorrow for a follow up appointment in 3-5 days, sooner if not improving - go to ER for worsening or severe symptoms such as fever, chills, worsening pain, spreading redness or red streaks appearing, foul smelling or pus like drainage, numbness or weakness, increasing swelling, especially within the first 24-48 hours on antibiotics Barrett Huff PA-C This document has been created with the use of voice recognition technology. Every effort was takento correct for errors however it may contain inaccuracies, misspellings, syntax errors, or word sense that escaped review. Please inquire further with the author for clarification if needed. documented in this [facility]06[facility] Instructions* Patient Instructions* Barrett Huff PA-C - 02/11/2024 2:30 PM EDT Plan -frequent hand washing -gentle skin care, no scrubbing. Keep area clean and dry -antibiotic medication sent to your pharmacy. Doxycycline twice daily for 7 days. - drink a full glass of water with each dose - do not take with milk/dairy products - avoid sun exposure - it raises your risk for burn - if you take calcium or iron supplements, do not take them while you take this, or take them at a different time of day - stay upright for 30 minutes after taking this medicine -Bactroban applied to the open wounds twice daily -call your primary care doctor tomorrow for a follow up appointment in 3-5 days, sooner if not improving - go to ER for worsening or severe symptoms such as fever, chills, worsening pain, spreading redness or red streaks appearing, foul smelling or pus like drainage, numbness or weakness, increasing swelling, especially within the first 24-48 hours on antibiotics CELLULITIS PATIENT INSTRUCTIONS: Cellulitis is an infection of your skin and the layers of tissue below your skin. It can affect anypart of the body. It most often affects the face, arms, or legs. Germs can enter your body from a cut, scratch, or bite. The infected part gets red, warm, painful, swollen, and irritated. Cellulitis can be treated with drugs, like antibiotics. Some people need surgery to drain the infection. What care is needed at home? Ask your doctor what you need to do when you go home. Make sure you ask questions if you do not understand what the doctor says. This way you will know what you need to do. If you have drugs to take at home, get the prescription filled right away, and take them exactly asordered. Do not use extra antibiotic creams or ointments on the area. Use pillows to raise the infected arm or leg above the level of your heart. This will lower pain and swelling. Keep the area clean and dry. Do not squeeze, scratch, or rub it. Use clean, warm compresses to help ease pain and swelling. Wet a clean wash cloth or small towel with hot water. Put it on the area for 5 to 10 minutes. Wash your hands before and after touching the area. Wash the area with soap and water. Pat dry. Do not rub. Put clean dressings or bandages on the area as ordered by the doctor. Ask your doctor when it is safe to take a bath or shower. You can draw a line with a waterproof marker around the red area to see if it is getting bigger or smaller. Call the doctor if the area is getting much bigger. Also call if you have more pain or it feels more tender. If you have diabetes, carefully check your blood sugars and adjust your drugs or insulin as directed by your doctor. What follow-up care is needed? Your doctor may ask you to make visits to the office to check on your progress. Be sure to keep these visits. If surgery was needed to drain the infection, your doctor may leave the area open. Keep this area clean. Protect it from dirt and dust in the air. If you have stitches or mary, you will need to have them taken out. Your doctor will often want to do this in 1 to 2 weeks. What drugs may be needed? The doctor may order drugs to: Treat the infection. Finish all of the antibiotics, even if the infection appears to have gone away. Help with pain and swelling What problems could happen? Infection in the blood. This is sepsis. Bone infection Inflammation of the lymph vessels Inflammation of the heart Meningitis Shock Tissue or gangrene What can be done to prevent this health problem? Wear proper clothing and shoes to cover your body and prevent cuts and bruises. Keep your nails trimmed. This will help you avoid harming the skin around them. Keep skin moisturized. Use lotion that does not have fragrance added to avoid dry, cracked skin. Treat athlete's foot as directed by your doctor. If you have a chronic skin condition, talk with your doctor about how to keep it under the best control. If you have chronic swelling (edema) of an arm or leg, talk with your doctor about how to lower theswelling. Your doctor may want you to wear support stockings. Practice good hygiene. Wash your hands often with soap and water. If you often have fungal infections, ask your doctor if you should be using an antifungal drug to prevent the cellulitis from occurring again. If you scratch or cut your skin, wash the area carefully with soap and water. Lose weight since being overweight is linked to cellulitis. When do I need to call the doctor? Signs of infection. These include a fever of 100.4 F (38 C) or higher, chills, or wound that will not heal. Signs of wound infection. These include swelling, redness, warmth around the wound; too much pain when touched; yellowish, greenish, or bloody discharge; foul smell coming from the cut or wound site;wound site opens up; blisters form at the site. When cellulitis is on the face, any signs of spreading to the sinus or eye must be evaluated and treated right away to avoid a serious problem, called orbital cellulitis. This can lead to severe sinus infection, blindness, brain abscess, or . Inflamed area is getting bigger You see red streaks going up your arm or leg Feeling weak or dizzy You are not feeling better in 2 to 3 days or you are feeling worse documented in this encounterMag[facility]03-[facility]24 Note DATE OF PROCEDURE: 11/21/2023 PROCEDURE: Lexiscan sestamibi myocardial perfusion imaging. FINDINGS: Resting heart rate is 70. Resting blood pressure ____/89. Baseline EKG shows sinus rhythmwith premature atrial contractions. The patient received 0.4 mg of intravenous Lexiscan. No significant ST segment changes noted after Lexiscan administration. The patient had atrial runs and frequent PACs. No significant arrhythmias noted. IMPRESSION: 1. No evidence of Lexiscan-induced ischemia per EKG criteria. 2. Frequent PACs at baseline. Frequent PACs and atrial runs after Lexiscan. No significant arrhythmia noted. 3. Nuclear perfusion images to be reported separately. RUDY LORA MD PG/NTS JOB#: [id number] DICTATION ID#: [id number] Digitally Signed by VIRGEN LORA MD on 11/21/2023 10:11 PM [facility]03-14-2024 Note ORIGINAL EXAMINATION: ONE SUPINE XRAY VIEW(S) OF THE ABDOMEN 11/17/2023 2:36 pm COMPARISON: Abdomen x-ray on 11/03/2023 HISTORY: ORDERING SYSTEM PROVIDED HISTORY: Reason for Exam: s/p left ureteroscopy FINDINGS: Left ureteral stent appears to be in satisfactory position. There is a 3 mm stone projected over the lower pole of the left kidney. No ureteral stone is detected. Bowel gas pattern is nonobstructive. 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 IMPRESSION: Left ureteral stent appears to be in satisfactory position. Small left renal stone. Interpreted by: Douglas Canales MD Preliminary Report By: Douglas Canales MD Electronically signed By Douglas Canales MD Dictated Date: 11/18/2023 1:28:03 AM Prelim Date: 11/18/2023 1:29:50 AM Sign Date: 11/18/2023 1:29:50 AM Ordering Provider: [facility] Grzegorz [id number] Hospital Discharge instructions Patient Education 11/03/2023 16:23:29 Indwelling Urinary Catheter Care, Adult Indwelling Urinary Catheter Care, Adult An indwelling urinary catheter is a thin, flexible, germ-free (sterile) tube that is placed into the bladder to help drain urine out of the body. The catheter is inserted into the part of the body that drains urine from the bladder (urethra). Urine drains from the catheter into a drainage bag outside of the body. Taking good care of your catheter will keep it working properly and help to prevent problems from developing. What are the risks? Bacteria may get into your bladder and cause a urinary tract infection. Urine flow can become blocked. This can happen if the catheter is not working correctly, or if you have sediment or a blood clot in your bladder or the catheter. Tissue near the catheter may become irritated and bleed. How to wear your catheter and your drainage bag Supplies needed Adhesive tape or a leg strap. Alcohol wipe or soap and water (if you use tape). A clean towel (if you use tape). Overnight drainage bag. Smaller drainage bag (leg bag). Wearing your catheter and bag Use adhesive tape or a leg strap to attach your catheter to your leg. Make sure the catheter is not pulled tight. If a leg strap gets wet, replace it with a dry one. If you use adhesive tape: 1.Use an alcohol wipe or soap and water to wash off any stickiness on your skin where you had tape before. 2.Use a clean towel to pat-dry the area. 3.Apply the new tape. You should have received a large overnight drainage bag and a smaller leg bag that fits underneath clothing. You may wear the overnight bag at any time, but you should not wear the leg bag at night. Always wear the leg bag below your knee. Make sure the overnight drainage bag is always lower than the level of your bladder, but do not letit touch the floor. Before you go to sleep, hang the bag inside a wastebasket that is covered by a clean plastic bag. How to care for your skin around the catheter Supplies needed A clean washcloth. Water and mild soap. A clean towel. Caring for your skin and catheter Every day, use a clean washcloth and soapy water to clean the skin around your catheter. 1.Wash your hands with soap and water. 2.Wet a washcloth in warm water and mild soap. 3.Clean the skin around your urethra. ?If you are female: ?Use one hand to gently spread the folds of skin around your vagina (labia). ?With the washcloth in your other hand, wipe the inner side of your labia on each side. Do this in a [id number] direction. ?If you are male: ?Use one hand to pull back any skin that covers the end of your penis (foreskin). ?With the washcloth in your other hand, wipe your penis in small circles. Start wiping at the tip of your penis, then move outward from the catheter. ?Move the foreskin back in place, if this applies. 4.With your free hand, hold the catheter close to where it enters your body. Keep holding the catheter during cleaning so it does not get pulled out. 5.Use your other hand to clean the catheter with the washcloth. ?Only wipe downward on the catheter. ?Do not wipe upward toward your body, because that may push bacteria into your urethra and cause infection. 6.Use a clean towel to pat-dry the catheter and the skin around it. Make sure to wipe off all soap. 7.Wash your hands with soap and water. Shower every day. Do not take baths. Do not use cream, ointment, or lotion on the area where the catheter enters your body, unless your health care provider tells you to do that. Do not use powders, sprays, or lotions on your genital area. Check your skin around the catheter every day for signs of infection. Check for: ?Redness, swelling, or pain. ?Fluid or blood. ?Warmth. ?Pus or a bad smell. How to empty the drainage bag Supplies needed Rubbing alcohol. Gauze pad or cotton ball. Adhesive tape or a leg strap. Emptying the bag Empty your drainage bag (your overnight drainage bag or your leg bag) when it is ? full, or at least 2 3 times a day. Clean the drainage bag according to the logging operations inspector's instructions or as told byyour health care provider. 1.Wash your hands with soap and water. 2.Detach the drainage bag from your leg. 3.Hold the drainage bag over the toilet or a clean container. Make sure the drainage bag is lower than your hips and bladder. This stops urine from going back into the tubing and into your bladder. 4.Open the pour spout at the bottom of the bag. 5.Empty the urine into the toilet or container. Do not let the pour spout touch any surface. This precaution is important to prevent bacteria from getting in the bag and causing infection. 6.Apply rubbing alcohol to a gauze pad or cotton ball. 7.Use the gauze pad or cotton ball to clean the pour spout. 8.Close the pour spout. 9.Attach the bag to your leg with adhesive tape or a leg strap. 10.Wash your hands with soap and water. How to change the drainage bag Supplies needed: Alcohol wipes. A clean drainage bag. Adhesive tape or a leg strap. Changing the bag Replace your drainage bag with a clean bag if it leaks, starts to smell bad, or looks dirty. 1.Wash your hands with soap and water. 2.Detach the dirty drainage bag from your leg. 3.Pinch the catheter with your fingers so that urine does not spill out. 4.Disconnect the catheter tube from the drainage tube at the connection valve. Do not let the tubestouch any surface. 5.Clean the end of the catheter tube with an alcohol wipe. Use a different alcohol wipe to clean the end of the drainage tube. 6.Connect the catheter tube to the drainage tube of the clean bag. 7.Attach the clean bag to your leg with adhesive tape or a leg strap. Avoid attaching the new bag too tightly. 8.Wash your hands with soap and water. General instructions Never pull on your catheter or try to remove it. Pulling can damage your internal tissues. Always wash your hands before and after you handle your catheter or drainage bag. Use a mild, fragrance-free soap. If soap and water are not available, use hand organ tuner electronic. Always make sure there are no twists or bends (kinks) in the catheter tube. Always make sure there are no leaks in the catheter or drainage bag. Drink enough fluid to keep your urine pale yellow. Do not take baths, swim, or use a hot tub. If you are female, wipe from front to back after having a bowel movement. Contact a health care provider if: Your urine is cloudy. Your urine smells unusually bad. Your catheter gets clogged. Your catheter starts to leak. Your bladder feels full. Get help right away if: You have redness, swelling, or pain where the catheter enters your body. You have fluid, blood, pus, or a bad smell coming from the area where the catheter enters your body. The area where the catheter enters your body feels warm to the touch. You have a fever. You have pain in your abdomen, legs, lower back, or bladder. You see blood in the catheter. Your urine is pink or red. You have nausea, vomiting, or chills. Your urine is not draining into the bag. Your catheter gets pulled out. Summary An indwelling urinary catheter is a thin, flexible, germ-free (sterile) tube that is placed into the bladder to help drain urine out of the body. The catheter is inserted into the part of the body that drains urine from the bladder (urethra). Take good care of your catheter to keep it working properly and help prevent problems from developing. Always wash your hands before and after you handle your catheter or drainage bag. Never pull on your catheter or try to remove it. This information is not intended to replace advice given to you by your health care provider. Make sure you discuss any questions you have with your health care provider. Document Released: 08/22/2006 Document Revised: 12/14/2019 Document Reviewed: 04/07/2018 [employer] Patient Education 2019 [employer]. Follow Up Care 09/29/2023 13:02:45 With:RUBINA CEE MD, [facility], Urology Service Address: [address] [place] [address] [address] [facility] [place] [address]- [phone] Business (1) When:2-4 days [facility] 02-29-2024 Summary of episode note Discharge Instructions Thank you for allowing [facility] to assist you with your healthcare needs. The following is importantdischarge information regarding your hospital visit. Your Care Team JAKI FLEMING DO What to do next Scheduled Follow-Up Appointments Appointment Type When With Where Contact InformationURO OV 11/04/2023 09:30 AM EST KYAW LUCIANO [facility] CV OV 11/14/2023 10:15 AM EDT WALLY CHARMAINE CRIS [facility] INF Labwork 04/17/2024 09:45 AM EDT Infusion Therapy HEM ONC OV Follow Up w/Active Treatment 04/17/2024 10:30 AM EDT CLOVER KATZ MD Hematology and Oncology INF Chemo: Infusion Injection 15 min 04/17/2024 11:00 AM EDT Infusion Therapy Follow Up Appointments Follow Up with RUBINA CEE MD, [facility], Urology Service When Within 2-4 days Where: [address] [facility] [address] [place] [address] [phone] Business (1) Allergies NKA Medications Please ask your primary doctor or pharmacist before taking any other medication not listed, including over the counter drugs, herbal medications, vitamins and or supplements as they may interact withyour home medications. What How Much When Why Instructions Last Dose Unchanged acetaminophen- diphenhydramine (Tylenol PM Extra Strength oral tablet) 2 tab(s) by mouth Daily at bedtime as needed for as needed for sleep Unchanged ascorbic acid (Vitamin C 1000 mg oral tablet) 1 tab(s) by mouth Once a day Unchanged cholecalciferol (Vitamin D3 50 mcg (2000 intl units) oral capsule) 1 cap by mouth Once a day Unchanged ciprofloxacin (Cipro 250 mg oral tablet) 1 tab(s) by mouth Every 12 hours Ureteral stone Duration: 3 Days Unchanged ferrous sulfate (IRON (ferrous sulfate 325 mg) 65 mg oral tablet) 1 tab(s) by mouth Daily at 12 noon Take with food. Unchanged glimepiride (Amaryl 1 mg oral tablet) 1 tab(s) by mouth Twice daily with meals Unchanged leflunomide (leflunomide 10 mg oral tablet) 1 tab(s) by mouth Once a day (in the morning) Unchanged lisinopril (lisinopril 40 mg oral tablet) 1 tab(s) by mouth Daily at bedtime Unchanged metformin-sitagliptin (Janumet 50 / 1000 mg oral tablet) 1 tab(s) by mouth Twice daily with meals Unchanged multivitamin (Multivitamin) 1 tab(s) by mouth Every day Unchanged ocular lubricant (Dry Eye Relief ophthalmic solution) 2 Drops Both eyes Once a day as needed for as needed for dry eyes Unchanged pantoprazole (pantoprazole 40 mg oral enteric coated tablet) 1 tab(s) by mouth Once a day (in the morning) Unchanged tamsulosin (tamsulosin 0.4 mg oral capsule) 1 cap by mouth Once a day after a meal What How Much When Comments Stop Taking apixaban (Eliquis 2.5 mg oral tablet) 1 tab(s) by mouth Two (2) times a day PT INSTRUCTED BY SURGEON AND CARDIOLOGY CLEARANCE TO STOP/ HOLD 3 DAYS PRIOR TO SURGERY. LAST DOSE Please take this list to your next doctor s visit. Bring all medications you take, including over the counter medications, herbals and other supplements with you to your doctor s visit. Patients and families are reminded to discard old lists and to update any records with all medication providers or retail pharmacies. Education Materials Indwelling Urinary Catheter Care, Adult An indwelling urinary catheter is a thin, flexible, germ-free (sterile) tube that is placed into the bladder to help drain urine out of the body. The catheter is inserted into the part of the body that drains urine from the bladder (urethra). Urine drains from the catheter into a drainage bag outside of the body. Taking good care of your catheter will keep it working properly and help to prevent problems from developing. What are the risks? Bacteria may get into your bladder and cause a urinary tract infection. Urine flow can become blocked. This can happen if the catheter is not working correctly, or if you have sediment or a blood clot in your bladder or the catheter. Tissue near the catheter may become irritated and bleed. How to wear your catheter and your drainage bag Supplies needed Adhesive tape or a leg strap. Alcohol wipe or soap and water (if you use tape). A clean towel (if you use tape). Overnight drainage bag. Smaller drainage bag (leg bag). Wearing your catheter and bag Use adhesive tape or a leg strap to attach your catheter to your leg. Make sure the catheter is not pulled tight. If a leg strap gets wet, replace it with a dry one. If you use adhesive tape: 1. Use an alcohol wipe or soap and water to wash off any stickiness on your skin where you had tape before. 2. Use a clean towel to pat-dry the area. 3. Apply the new tape. You should have received a large overnight drainage bag and a smaller leg bag that fits underneath clothing. You may wear the overnight bag at any time, but you should not wear the leg bag at night. Always wear the leg bag below your knee. Make sure the overnight drainage bag is always lower than the level of your bladder, but do not letit touch the floor. Before you go to sleep, hang the bag inside a wastebasket that is covered by a clean plastic bag. How to care for your skin around the catheter Supplies needed A clean washcloth. Water and mild soap. A clean towel. Caring for your skin and catheter Every day, use a clean washcloth and soapy water to clean the skin around your catheter. 1. Wash your hands with soap and water. 2. Wet a washcloth in warm water and mild soap. 3. Clean the skin around your urethra. ? If you are female: ? Use one hand to gently spread the folds of skin around your vagina (labia). ? With the washcloth in your other hand, wipe the inner side of your labia on each side. Do this in [id number] direction. ? If you are male: ? Use one hand to pull back any skin that covers the end of your penis (foreskin). ? With the washcloth in your other hand, wipe your penis in small circles. Start wiping at the tip ofyour penis, then move outward from the catheter. ? Move the foreskin back in place, if this applies. 4. With your free hand, hold the catheter close to where it enters your body. Keep holding the catheter during cleaning so it does not get pulled out. 5. Use your other hand to clean the catheter with the washcloth. ? Only wipe downward on the catheter. ? Do not wipe upward toward your body, because that may push bacteria into your urethra and cause infection. 6. Use a clean towel to pat-dry the catheter and the skin around it. Make sure to wipe off all soap. 7. Wash your hands with soap and water. Shower every day. Do not take baths. Do not use cream, ointment, or lotion on the area where the catheter enters your body, unless your health care provider tells you to do that. Do not use powders, sprays, or lotions on your genital area. Check your skin around the catheter every day for signs of infection. Check for: ? Redness, swelling, or pain. ? Fluid or blood. ? Warmth. ? Pus or a bad smell. How to empty the drainage bag Supplies needed Rubbing alcohol. Gauze pad or cotton ball. Adhesive tape or a leg strap. Emptying the bag Empty your drainage bag (your overnight drainage bag or your leg bag) when it is ? full, or at least 2 3 times a day. Clean the drainage bag according to the logging operations inspector's instructions or as told byyour health care provider. 1. Wash your hands with soap and water. 2. Detach the drainage bag from your leg. 3. Hold the drainage bag over the toilet or a clean container. Make sure the drainage bag is lower than your hips and bladder. This stops urine from going back into the tubing and into your bladder. 4. Open the pour spout at the bottom of the bag. 5. Empty the urine into the toilet or container. Do not let the pour spout touch any surface. This precaution is important to prevent bacteria from getting in the bag and causing infection. 6. Apply rubbing alcohol to a gauze pad or cotton ball. 7. Use the gauze pad or cotton ball to clean the pour spout. 8. Close the pour spout. 9. Attach the bag to your leg with adhesive tape or a leg strap. 10. Wash your hands with soap and water. How to change the drainage bag Supplies needed: Alcohol wipes. A clean drainage bag. Adhesive tape or a leg strap. Changing the bag Replace your drainage bag with a clean bag if it leaks, starts to smell bad, or looks dirty. 1. Wash your hands with soap and water. 2. Detach the dirty drainage bag from your leg. 3. Pinch the catheter with your fingers so that urine does not spill out. 4. Disconnect the catheter tube from the drainage tube at the connection valve. Do not let the tubes touch any surface. 5. Clean the end of the catheter tube with an alcohol wipe. Use a different alcohol wipe to clean the end of the drainage tube. 6. Connect the catheter tube to the drainage tube of the clean bag. 7. Attach the clean bag to your leg with adhesive tape or a leg strap. Avoid attaching the new bag tootightly. 8. Wash your hands with soap and water. General instructions Never pull on your catheter or try to remove it. Pulling can damage your internal tissues. Always wash your hands before and after you handle your catheter or drainage bag. Use a mild, fragrance-free soap. If soap and water are not available, use hand organ tuner electronic. Always make sure there are no twists or bends (kinks) in the catheter tube. Always make sure there are no leaks in the catheter or drainage bag. Drink enough fluid to keep your urine pale yellow. Do not take baths, swim, or use a hot tub. If you are female, wipe from front to back after having a bowel movement. Contact a health care provider if: Your urine is cloudy. Your urine smells unusually bad. Your catheter gets clogged. Your catheter starts to leak. Your bladder feels full. Get help right away if: You have redness, swelling, or pain where the catheter enters your body. You have fluid, blood, pus, or a bad smell coming from the area where the catheter enters your body. The area where the catheter enters your body feels warm to the touch. You have a fever. You have pain in your abdomen, legs, lower back, or bladder. You see blood in the catheter. Your urine is pink or red. You have nausea, vomiting, or chills. Your urine is not draining into the bag. Your catheter gets pulled out. Summary An indwelling urinary catheter is a thin, flexible, germ-free (sterile) tube that is placed into the bladder to help drain urine out of the body. The catheter is inserted into the part of the body that drains urine from the bladder (urethra). Take good care of your catheter to keep it working properly and help prevent problems from developing. Always wash your hands before and after you handle your catheter or drainage bag. Never pull on your catheter or try to remove it. This information is not intended to replace advice given to you by your health care provider. Make sure you discuss any questions you have with your health care provider. Document Released: 08/22/2006 Document Revised: 12/14/2019 Document Reviewed: 04/07/2018 Elsevier Patient Education 2020 [employer] Additional Information VACCINATE! IT SAVES LIVES! Members of the community who have not yet received the COVID-19 vaccine and would like to receive it can visit one of [facility] vaccine clinics. There are many vaccine clinic locations within the [facility]. For locations and available times, please visit https://gettheshot.coronavirus.[place].gov/. It is important to note that some COVID mobile vaccine clinics are held outdoors and may be canceled in rainy or stormy conditions. To learn more about pediatric vaccinations (ages 5-11), we invite you to visit the [facility] webpage. https://www.[employer].org/pages/2153-Mbnca-Eieajnwbgxd-Agmzpmxtdj-Unijg-Fqm stions.htmlTo learn more about the COVID-19 vaccine, we invite you to visit the CDC website for a list of frequently asked questions.https://www.cdc.gov/coronavirus/2019-ncov/vaccines/faq.html [facility] Patient Portal Access Instructions: Stay connected with your healthcare team and access your personal medical information anytime with the [facility] Patient Portal. Please follow the directions below to create your [facility] account: 1.Access the email account you provided upon registration to the hospital/physician office.2.Look for an invitation email from [facility].3.Open the email and access the invitation link: AcceptInvitation to [facility].4.Fill in the required ortega to create your account. To access your account, visit [facility]. Click the blue button labeled Access Patient Portal and then log in with the username and password that you created in the steps above. You will be able to view your test results, lab results, a summary of your visits, upcoming appointments and more. There is also a convenient messaging option where you can send secure messages to your p rovider. In addition, you will have the ability to download any documents or summaries to your computer and/or send the information securely to a physician. Remember that your healthcare information is confidential, so carefully consider who you will allowto register on the [facility] Patient Portal for access to your information. You can also access the [facility] Patient Portal on the [facility]. Simply click on Patient Portal and then log into your account. If you would like to receive a full copy of your medical records, please contact the [facility] Medical Records Department by calling [phone], Tuesday through Tuesday between 8 a.m. and 4:30 p.m. HOW TO SAFELY DISPOSE OF PRESCRIPTION MEDICATIONS Please use one of the following methods to safely dispose of your unused medications. 1.Use a drug disposal kit: the drug disposal pouch allows you to safely discard your old and unuseddrugs. Ask your nurse to give you one when you are discharged.2.Visit a local take-back location: Many local pharmacies and police departments have programs that collect old and unwanted prescriptiondrugs. Call your local pharmacy or go to http://Kyp/5R9Gr9u to find one close to you.3.Make use of household items: Use cat litter or old coffee grounds to dispose medications if other options arenot available. Mix your drugs with these household products, seal them in an airtight container andthrow it into the garbage. Call [facility]: [phone] to be sure your drugs can be disposed of in this way. Some medicines may require a different approach.4.Never flush your medications down the toilet. IF YOU HAVE BEEN PRESCRIBED AN OPIOID FOR PAIN If you have been prescribed an opioid (such as hydrocodone, oxycodone or morphine), it is critical to understand the possible side effects and risks of opioid pain medications. Even when taken as directed, opioids can have several side effects including: Tolerance, meaning you might need to take more of a medication for the same pain relief. Nausea, vomiting and/or constipation. Sleepiness, dizziness, dry mouth, confusion, depression or itching. Physical dependence, meaning you have withdrawal symptoms when a medication is stopped, can develop within a few days. KNOW YOUR RESPONSIBILITIES It is important to know exactly how much and how often to take the opioid pain medications you are prescribed. Never take opioids in higher amounts or more often than prescribed. Do not combine opioids with alcohol or other drugs that cause drowsiness, such as benzodiazepines, also known as benzos, including diazepam and alprazolam, muscle relaxants or sleep aids. Never sell or share prescription opioids. This is illegal. Store opioids in a secure place and out of reach of others (including children, family, friends and visitors). The last page of this document has been signed and retained as a CHART COPY. Signatures Patient Education Materials Indwelling Urinary Catheter Care, Adult Medication Leaflets My discharge plan and instructions have been reviewed and explained to me and I,JAYLEN GALAVIZ understand my current condition and have read and understand these discharge instructions. I have received a written copy of the plan/instructions. If I have questions, I am aware that I should contact my doctor. 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 Signature: Date/Time: Relationship to Patient: Witness Name/Signature: Date[facility]Time[id number] Anesthesiology Consult note Patient: JAYLEN GALAVIZ Age: 88 years Sex: Male : 1935 Associated Diagnoses: None Author: MARIYA ROMERO MD Assessment Postanesthesia assessment Vitals: Vital signs from flowsheet : Vital Signs 11/03/2023 15:50 EST Temperature Temporal Artery 36.0 DegC Heart Rate Monitored 56 bpm LOW Respiratory Rate 18 br/min Systolic Blood Pressure Non-Invasive 142 mmHg HI Diastolic Blood Pressure Non-Invasive 65 mmHg Mean Arterial Pressure (NBP) 88 mmHg 11/03/2023 15:48 EST Temperature Temporal Artery 36.0 DegC Heart Rate Monitored 62 bpm Respiratory Rate 18 br/min Systolic Blood Pressure Non-Invasive 145 mmHg HI Diastolic Blood Pressure Non-Invasive 63 mmHg Mean Arterial Pressure (NBP) 88 mmHg 11/03/2023 15:35 EST Heart Rate Monitored 64 bpm Respiratory Rate 18 br/min Systolic Blood Pressure Non-Invasive 161 mmHg HI Diastolic Blood Pressure Non-Invasive 76 mmHg Mean Arterial Pressure (NBP) 100 mmHg 11/03/2023 15:20 EST Heart Rate Monitored 74 bpm Respiratory Rate 18 br/min Systolic Blood Pressure Non-Invasive 152 mmHg HI Diastolic Blood Pressure Non-Invasive 78 mmHg 11/03/2023 15:12 EST Respiratory Rate 18 br/min 11/03/2023 15:05 EST Temperature Temporal Artery 36.0 DegC Heart Rate Monitored 67 bpm Respiratory Rate 18 br/min Systolic Blood Pressure Non-Invasive 141 mmHg HI Diastolic Blood Pressure Non-Invasive 69 mmHg Mean Arterial Pressure (NBP) 92 mmHg 11/03/2023 14:56 EST Systolic Blood Pressure Non-Invasive 150 mmHg mmHg Diastolic Blood Pressure Non-Invasive 71 mmHg mmHg 11/03/2023 14:55 EST Heart Rate Monitored 73 bpm bpm Respiratory Rate - Anes 17 br/min br/min 11/03/2023 14:53 EST Systolic Blood Pressure Non-Invasive 139 mmHg mmHg Diastolic Blood Pressure Non-Invasive 77 mmHg mmHg 11/03/2023 14:50 EST Heart Rate Monitored 67 bpm bpm Respiratory Rate - Anes 20 br/min br/min Systolic Blood Pressure Non-Invasive 151 mmHg mmHg Diastolic Blood Pressure Non-Invasive 66 mmHg mmHg 11/03/2023 14:46 EST Systolic Blood Pressure Non-Invasive 145 mmHg mmHg Diastolic Blood Pressure Non-Invasive 70 mmHg mmHg 11/03/2023 14:45 EST Temperature (Route Not Specified) 36.28 DegC DegC Heart Rate Monitored 67 bpm bpm Respiratory Rate - Anes 15 br/min br/min 11/03/2023 14:44 EST Systolic Blood Pressure Non-Invasive 126 mmHg mmHg Diastolic Blood Pressure Non-Invasive 57 mmHg mmHg 11/03/2023 14:41 EST Systolic Blood Pressure Non-Invasive 155 mmHg mmHg Diastolic Blood Pressure Non-Invasive 90 mmHg mmHg 11/03/2023 14:40 EST Temperature (Route Not Specified) 36.32 DegC DegC Heart Rate Monitored 85 bpm bpm Respiratory Rate - Anes 10 br/min br/min 11/03/2023 14:38 EST Systolic Blood Pressure Non-Invasive 143 mmHg mmHg Diastolic Blood Pressure Non-Invasive 90 mmHg mmHg 11/03/2023 14:35 EST Temperature (Route Not Specified) 36.37 DegC DegC Heart Rate Monitored 63 bpm bpm Respiratory Rate - Anes 10 br/min br/min Systolic Blood Pressure Non-Invasive 113 mmHg mmHg Diastolic Blood Pressure Non-Invasive 71 mmHg mmHg 11/03/2023 14:32 EST Systolic Blood Pressure Non-Invasive 118 mmHg mmHg Diastolic Blood Pressure Non-Invasive 56 mmHg mmHg 11/03/2023 14:30 EST Temperature (Route Not Specified) 36.35 DegC DegC Heart Rate Monitored 64 bpm bpm Respiratory Rate - Anes 10 br/min br/min 11/03/2023 14:28 EST Systolic Blood Pressure Non-Invasive 120 mmHg mmHg Diastolic Blood Pressure Non-Invasive 58 mmHg mmHg 11/03/2023 14:26 EST Systolic Blood Pressure Non-Invasive 121 mmHg mmHg Diastolic Blood Pressure Non-Invasive 70 mmHg mmHg 11/03/2023 14:25 EST Temperature (Route Not Specified) 36.34 DegC DegC Heart Rate Monitored 66 bpm bpm Respiratory Rate - Anes 10 br/min br/min 11/03/2023 14:23 EST Systolic Blood Pressure Non-Invasive 120 mmHg mmHg Diastolic Blood Pressure Non-Invasive 61 mmHg mmHg 11/03/2023 14:20 EST Temperature (Route Not Specified) 36.33 DegC DegC Heart Rate Monitored 69 bpm bpm Respiratory Rate - Anes 10 br/min br/min Systolic Blood Pressure Non-Invasive 114 mmHg mmHg Diastolic Blood Pressure Non-Invasive 59 mmHg mmHg 11/03/2023 14:16 EST Systolic Blood Pressure Non-Invasive 116 mmHg mmHg Diastolic Blood Pressure Non-Invasive 63 mmHg mmHg 11/03/2023 14:15 EST Temperature (Route Not Specified) 36.32 DegC DegC Heart Rate Monitored 63 bpm bpm Respiratory Rate - Anes 10 br/min br/min 11/03/2023 14:14 EST Systolic Blood Pressure Non-Invasive 123 mmHg mmHg Diastolic Blood Pressure Non-Invasive 60 mmHg mmHg 11/03/2023 14:11 EST Systolic Blood Pressure Non-Invasive 120 mmHg mmHg Diastolic Blood Pressure Non-Invasive 64 mmHg mmHg 11/03/2023 14:10 EST Temperature (Route Not Specified) 36.33 DegC DegC Heart Rate Monitored 65 bpm bpm Respiratory Rate - Anes 10 br/min br/min 11/03/2023 14:08 EST Systolic Blood Pressure Non-Invasive 130 mmHg mmHg Diastolic Blood Pressure Non-Invasive 66 mmHg mmHg 11/03/2023 14:05 EST Temperature (Route Not Specified) 36.34 DegC DegC Heart Rate Monitored 62 bpm bpm Respiratory Rate - Anes 10 br/min br/min 11/03/2023 14:04 EST Systolic Blood Pressure Non-Invasive 111 mmHg mmHg Diastolic Blood Pressure Non-Invasive 67 mmHg mmHg 11/03/2023 14:01 EST Systolic Blood Pressure Non-Invasive 98 mmHg mmHg Diastolic Blood Pressure Non-Invasive 54 mmHg mmHg 11/03/2023 14:00 EST Temperature (Route Not Specified) 36.33 DegC DegC Heart Rate Monitored 61 bpm bpm Respiratory Rate - Anes 10 br/min br/min 11/03/2023 13:59 EST Systolic Blood Pressure Non-Invasive 103 mmHg mmHg Diastolic Blood Pressure Non-Invasive 57 mmHg mmHg 11/03/2023 13:56 EST Systolic Blood Pressure Non-Invasive 113 mmHg mmHg Diastolic Blood Pressure Non-Invasive 55 mmHg mmHg 11/03/2023 13:55 EST Temperature (Route Not Specified) 36.35 DegC DegC Heart Rate Monitored 64 bpm bpm Respiratory Rate - Anes 10 br/min br/min 11/03/2023 13:53 EST Systolic Blood Pressure Non-Invasive 103 mmHg mmHg Diastolic Blood Pressure Non-Invasive 53 mmHg mmHg 11/03/2023 13:50 EST Temperature (Route Not Specified) 36.38 DegC DegC Heart Rate Monitored 63 bpm bpm Respiratory Rate - Anes 10 br/min br/min Systolic Blood Pressure Non-Invasive 124 mmHg mmHg Diastolic Blood Pressure Non-Invasive 60 mmHg mmHg 11/03/2023 13:46 EST Systolic Blood Pressure Non-Invasive 92 mmHg mmHg Diastolic Blood Pressure Non-Invasive 52 mmHg mmHg 11/03/2023 13:45 EST Temperature (Route Not Specified) 36.43 DegC DegC Heart Rate Monitored 64 bpm bpm Respiratory Rate - Anes 12 br/min br/min 11/03/2023 13:43 EST Systolic Blood Pressure Non-Invasive 106 mmHg mmHg Diastolic Blood Pressure Non-Invasive 53 mmHg mmHg 11/03/2023 13:40 EST Temperature (Route Not Specified) 36.52 DegC DegC Heart Rate Monitored 68 bpm bpm Respiratory Rate - Anes 12 br/min br/min Systolic Blood Pressure Non-Invasive 117 mmHg mmHg Diastolic Blood Pressure Non-Invasive 62 mmHg mmHg 11/03/2023 13:37 EST Systolic Blood Pressure Non-Invasive 95 mmHg mmHg Diastolic Blood Pressure Non-Invasive 61 mmHg mmHg 11/03/2023 13:35 EST Temperature (Route Not Specified) 36.59 DegC DegC Heart Rate Monitored 72 bpm bpm Respiratory Rate - Anes 12 br/min br/min Systolic Blood Pressure Non-Invasive 109 mmHg mmHg Diastolic Blood Pressure Non-Invasive 58 mmHg mmHg 11/03/2023 13:31 EST Systolic Blood Pressure Non-Invasive 122 mmHg mmHg Diastolic Blood Pressure Non-Invasive 77 mmHg mmHg 11/03/2023 13:30 EST Temperature (Route Not Specified) 36.65 DegC DegC Heart Rate Monitored 74 bpm bpm Respiratory Rate - Anes 10 br/min br/min 11/03/2023 13:29 EST Systolic Blood Pressure Non-Invasive 97 mmHg mmHg Diastolic Blood Pressure Non-Invasive 50 mmHg mmHg 11/03/2023 13:25 EST Temperature (Route Not Specified) 36.68 DegC DegC Heart Rate Monitored 74 bpm bpm Respiratory Rate - Anes 10 br/min br/min Systolic Blood Pressure Non-Invasive 127 mmHg mmHg Diastolic Blood Pressure Non-Invasive 61 mmHg mmHg 11/03/2023 13:22 EST Systolic Blood Pressure Non-Invasive 97 mmHg mmHg Diastolic Blood Pressure Non-Invasive 66 mmHg mmHg 11/03/2023 13:20 EST Temperature (Route Not Specified) 36.7 DegC DegC Heart Rate Monitored 84 bpm bpm Respiratory Rate - Anes 10 br/min br/min 11/03/2023 13:19 EST Systolic Blood Pressure Non-Invasive 105 mmHg mmHg Diastolic Blood Pressure Non-Invasive 67 mmHg mmHg 11/03/2023 13:16 EST Respiratory Rate - Anes 10 br/min br/min Systolic Blood Pressure Non-Invasive 117 mmHg mmHg Diastolic Blood Pressure Non-Invasive 84 mmHg mmHg 11/03/2023 13:15 EST Heart Rate Monitored 82 bpm bpm Respiratory Rate - Anes 15 br/min br/min 11/03/2023 13:14 EST Respiratory Rate - Anes 14 br/min br/min Systolic Blood Pressure Non-Invasive 123 mmHg mmHg Diastolic Blood Pressure Non-Invasive 74 mmHg mmHg 11/03/2023 13:13 EST Respiratory Rate - Anes 16 br/min br/min 11/03/2023 13:12 EST Respiratory Rate - Anes 16 br/min br/min 11/03/2023 13:11 EST Respiratory Rate - Anes 16 br/min br/min Systolic Blood Pressure Non-Invasive 161 mmHg mmHg Diastolic Blood Pressure Non-Invasive 103 mmHg mmHg 11/03/2023 13:10 EST Respiratory Rate - Anes 16 br/min br/min (Modified) 11/03/2023 12:06 EST Temperature Temporal Artery 36.7 DegC Peripheral Pulse Rate 65 bpm Respiratory Rate 18 br/min Systolic Blood Pressure Non-Invasive 155 mmHg HI Diastolic Blood Pressure Non-Invasive 63 mmHg . Mental status: at preoperative baseline. Respiratory function: respirations are non-labored. Respiratory support: none. CV function: Normal rate, Regular rhythm. Cardiovascular support: none. Pain: Post op control see nursing medication documentation. Nausea status: denies nausea. Postoperative hydration status: euvolemic. Digitally Signed by MARIYA ROMERO MD on 11/03/2023 04:15 PM [id number] Discharge summary Patient underwent successful left ureteroscopy with laser of the tipsy and fragmentation of large impacted mid proximal left ureteral stone. Because of enlarged prostate with prostatomegaly and history of radiation were going to leave Preston catheter in overnight and patient we discharged home with Preston to return to the clinic tomorrow morning for voiding trial. Due to risk of bleeding he will hold his Eliquis for 3 days and then restart. Call if any significant hematuria develops. He will be given Cipro for 3 days to start tomorrow morning. Push fluids. Return to the ER for any fevers chillsincreased pain or heavy hematuria. Follow-up in about 2 weeks to 3 weeks for stent removal. Digitally Signed by EZEKIEL QUIROS MD on 11/03/2023 03:18 PM [facility] [id number] Note ORIGINAL EXAMINATION: SPOT FLUOROSCOPIC IMAGES 11/03/2023 3:07 pm TECHNIQUE: Fluoroscopy was provided by the radiology department for procedure. Radiologist was not present during examination. FLUOROSCOPY DOSE AND TYPE: Radiation Exposure Index: 3 mGy air kerma., fluoroscopy time was 0.4 minutes. COMPARISON: CT, 09/20/2023 HISTORY: ORDERING SYSTEM PROVIDED HISTORY: Reason for Exam: stone Intraprocedural imaging. FINDINGS: 15 intraoperative images show instrumentation of the left ureter with stone retrieval. Left ureter stent placed. IMPRESSION: Limited intraoperative images. Refer to surgical report Interpreted by: Hector Damico MD Preliminary Report By: Hector Damico MD Electronically signed By Hector Damico MD Dictated Date: 11/03/2023 4:12:04 PM Prelim Date: 11/03/2023 4:14:05 PM Sign Date: 11/03/2023 4:14:05 PM Ordering Provider: EZEKIEL QUIROSOhio State East [id number] Anesthesiology Consult note Patient: JAYLEN GALAVIZ Age: 88 years Sex: Male : 1935 Associated Diagnoses: None Author: YOUNG WEIR MD Preoperative Information > 8 hours Anesthesia history Patient's history: negative. Family's history: negative. Health Status Allergies: Allergic Reactions (Selected) NKA, Allergies (1) ActiveReaction NKANone Documented Current medications: (Selected) Inpatient Medications Ordered LR 1,000 mL: 20 mL/hr, Intravenous LR 1,000 mL: 75 mL/hr, Intravenous lidocaine 1% preservative-free injectable solution: 2.5 mg, 0.25 mL, Intradermal, prep pharm Prescriptions Prescribed Eliquis 2.5 mg oral tablet: 2.5 mg, 1 tab(s), Oral, BID, PT INSTRUCTED BY SURGEON AND CARDIOLOGY CLEARANCE TO STOP/HOLD 3 DAYS PRIOR TO SURGERY. LAST DOSE 10/30/23, 60 tab(s), 0 Refill(s) tamsulosin 0.4 mg oral capsule: 0.4 mg, 1 cap(s), Oral, qDayPC, 30 cap(s), 0 Refill(s) Documented Medications Documented Amaryl 1 mg oral tablet: 1 mg, 1 tab(s), Oral, BIDM, 0 Refill(s) Dry Eye Relief ophthalmic solution: 2 drop(s), Eyes, both, qDay, PRN: as needed for dry eyes, 0 Refill(s) IRON (ferrous sulfate 325 mg) 65 mg oral tablet: 325 mg, 1 tab(s), Oral, 12 (noon), Take with food., 3 Refill(s) Janumet 50 / 1000 mg oral tablet: 1 tab(s), Oral, BIDM, 0 Refill(s) Multivitamin: 1 tab(s), Oral, Daily, 0 Refill(s) Tylenol PM Extra Strength oral tablet: 2 tab(s), Oral, qHS, PRN: as needed for sleep, 0 Refill(s) Vitamin C 1000 mg oral tablet: 1,000 mg, 1 tab(s), Oral, qDay, 0 Refill(s) Vitamin D3 50 mcg (2000 intl units) oral capsule: 50 mcg, 1 cap(s), Oral, qDay, 0 Refill(s) leflunomide 10 mg oral tablet: 10 mg, 1 tab(s), Oral, qAM, 0 Refill(s) lisinopril 40 mg oral tablet: 40 mg, 1 tab(s), Oral, qHS, 30 tab(s), 0 Refill(s) pantoprazole 40 mg oral enteric coated tablet: 40 mg, 1 tab(s), Oral, qAM, 0 Refill(s), Medications (3) Active Scheduled: (1) lidocaine 1% (MPF) 2 mL vial pf 2.5 mg 0.25 mL, Intradermal, prep pharm Continuous: (2) Lactated Ringers 1,000 mL 1,000 mL, Intravenous, 75 mL/hr Lactated Ringers 1,000 mL 1,000 mL, Intravenous, 20 mL/hr PRN: (0) Problem list: Medical (Selected) CAD in [place] artery / SNOMED CT 61568552 / Confirmed Elevated PSA / SNOMED CT 9596659640 / Confirmed Family history of prostate cancer / SNOMED CT 9927600646 / Confirmed GERD - Gastro-esophageal reflux disease / SNOMED CT 4130866471 / Confirmed History of blood clots / SNOMED CT 728576579 / Confirmed History of urinary retention / SNOMED CT 837164318 / Confirmed Hernia, internal / SNOMED CT 49243228 / Confirmed Kidney stones / SNOMED CT 872698966 / Confirmed Nocturia / SNOMED CT 143739787 / Confirmed BPH associated with nocturia / SNOMED CT 6556107628 / Confirmed Ureterovesical junction obstruction / SNOMED CT 9356443479 / Confirmed Chronic venous insufficiency / SNOMED CT 51287967 / Confirmed Renal insufficiency, mild / SNOMED CT 0846814180 / Confirmed Synovial cyst / SNOMED CT 254485315 / Confirmed Non-Insulin Dependent Diabetes Mellitus / SNOMED CT 620680262 / Confirmed Left ureteral stone / SNOMED CT 35422073 / Confirmed, Active Problems (48) Age-related macular degeneration Anemia Anxiety Arthritis Atrial fibrillation Borderline low oxygen saturation level 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 Chronic venous insufficiency Colon, diverticulosis CPAP (continuous positive airway pressure) dependence Difficulty swallowing Dupuytren contracture Elevated PSA Family history of prostate cancer Fatty liver Fragile skin GERD - Gastro-esophageal reflux disease Glasses H/O polymyalgia rheumatica Hernia, internal History of aortic valve replacement with porcine valve History of blood clots History of blood transfusion History of coronary artery bypass graft x 2 History of kidney stones History of radiation therapy History of urinary retention Hypercholesterolemia Hypertension Kidney stones Left ureteral stone Low iron Muscle weakness Nocturia Non-Insulin Dependent Diabetes Mellitus On anticoagulant therapy On home oxygen therapy Presence of dental prosthetic device Prostate cancer- 01/2023 PSA 9.68 GL6 GG1, GL7 GG2, GG3, GL8 GG4, IMRT completed 07/2023 Renal insufficiency, mild Sleep apnea Synovial cyst Ureterovesical junction obstruction Urinary incontinence Urinary urgency Vitamin D deficiency WBC decreased Histories Past Medical History: Active Hernia, internal (54265032) History of urinary retention (251653052) Comments: 01/19/2023 EDT 9:06 LAVERN Kennedy urinary retention Resolved Diastasis recti (475243543): Resolved. History of UTI (1457638133): Resolved. Comments: - 09/2017 - [facility] Procedure history: Cystoscopy (6273493594) on 09/21/2023 at 88 Years. Comments: 10/18/2023 7:28 LAVERN Haywood WITH LEFT URETERAL STENT INSERTION, LEFT URETERSOSCOPY Transperineal biopsy of prostate using magnetic resonance imaging and ultrasonography fusion guidance (9999447618) on 02/01/2023 at 87 Years. Heart valve replacement - graft (763885159) in 2012 at 78 Years. CABG (Coronary artery bypass grafting) planned (2134030376) on 09/17/2012 at 77 Years. Carpal tunnel release (721045597). Comments: 01/19/2023 9:31 LAVERN Kennedy right Hiatus hernia repair (744185633). Colonoscopy (371118330). Dupuytren contracture (1048797073). Comments: 01/19/2023 9:32 LAVERN Kennedy right Esophagogastroduodenoscopy (690489685). Cataract extraction and IOL (implantation of intraocular lens) (4928816000). Comments: 10/18/2023 7:29 LAVERN Haywood BILATERAL Kidney stone (660734309). Social History Social & Psychosocial Habits Alcohol 4Risk Assessment: Denies Alcohol Use 11/03/2023 Use: Never Employment/School 10/18/2023 Status: Retired Previous employment/school: [employer] Substance Abuse 4Risk Assessment: Denies Substance Abuse 11/03/2023 Use: Never Tobacco 11/03/2023 Tobacco Use: Never (less than 100 in l Home/Environment 11/03/2023 Living situation: Home/Independent Domestic Concerns Denies Lives In Multilevel home Current Home Treatments Blood Glucose monitoring, Blood Pressure monitoring, CPAP, HEART MONITOR Spouse Name CHRISTIANO Marital Status of Patient if Patient Independent Adult: Nutrition/Health 11/03/2023 Type of diet: Diabetic Caffeine intake amount: 1 CUP COFFEE PER DAY Appetite Excellent Eating Difficulties None, Swallowing . Physical Examination Measurements from flowsheet : Measurements 11/03/2023 12:06 EST Height 177.8 cm Height in inches 70 inch(es) Admission Weight 91.2 kg Weight Lbs 200.6 lb Weight Method Actual [place] Body Weight 73.00 kg Type of Scale Used Weigh bed Admission Body Mass Index 28.85 m2 General: Alert and oriented, No acute distress. Airway: Mallampati classification: II (soft palate, fauces, uvula visible). Head: Normocephalic, Atraumatic. Dentition Evaluation: No teeth. Respiratory: Lungs are clear to auscultation, Respirations are non-labored. Cardiovascular: Normal rate. Heart Sounds: Normal. Neurologic: Alert, Oriented. Review / Management Documentation reviewed: Current records, Reviewed prior records. Assessment and Plan [place] [employer] Anesthesiologists (ASA) physical status classification: Class III. Anesthetic Preoperative Plan Anesthetic technique: General. Induction: intravenously. Maintenance airway: Oral endotracheal tube. Postoperative pain management: Per surgeon. Risks discussed: nausea, vomiting, headache, sore throat, dental injury, hypotension, allergic reaction, serious complications. Informed consent: signed by patient. h/o ROBERT, DM, HTN, HLD, CAD, anxiety, anemia, afib, UPJ stones, prostate cancer, h/o radiation therapy, gerd, CKD Digitally Signed by YOUNG WEIR MD on 11/03/2023 01:59 PM [id number] ORIGINAL EXAMINATION: ONE SUPINE XRAY VIEW(S) OF THE ABDOMEN2/ 11:09 am COMPARISON: 09/20/2023 HISTORY: ORDERING SYSTEM PROVIDED HISTORY: Reason for Exam: left ureteral stone FINDINGS: Left ureteral stent is in place. No evidence of renal nephrolithiasis given limitations of overlying bowel gas and stool. There is a suspected calculus at the level of L4/L5 measuring 8 mm, similar in position to recent CT. Additional pelvic phleboliths are noted. There are multilevel degenerative changes of the spine as well as sacroiliac degenerative changes. IMPRESSION: Left ureteral stent and mid left ureteral calculus. Interpreted by: Lonnie Encinas DO Preliminary Report By: Lonnie Encinas DO Electronically signed By Lonnie Encinas DO Dictated Date: 11/03/2023 11:21:51 AM Prelim Date: 11/03/2023 11:24:44 AM Sign Date: 11/03/2023 11:24:44 AM Ordering Provider: [facility]02[facility]24 Summary of episode note JAYLEN GALAVIZ :1935 Visit Date:10/18/2023 Your Visit Summary Your Diagnosis Prostate cancer Your Care Team Attending Physician - CLOVER KATZ MD Primary Care Physician - JAKI FLEMING DO Vitals Height 178.0 cm What to do next Scheduled Follow-Up Appointments Appointment Type When With Where Contact InformationCV OV 11/03/2023 10:00 AM EST CHARMAINE LO APRN-MINDY [facility] Surgery - [facility] 11/03/2023 03:45 PM EST HEM ONC OV Follow Up w/Active Treatment 04/17/2024 10:30 AM EDT CLOVER KATZ MD Hematology and Oncology Medications What How Much When Instructions Unchanged acetaminophen-diphenhydramine (Tylenol PM Extra Strength oral tablet) 2 tab(s) by mouth Daily at bedtime as needed for as needed for sleep Unchanged apixaban (Eliquis 2.5 mg oral tablet) 1 tab(s) by mouth Two (2) times a day PT INSTRUCTED BY SURGEON AND CARDIOLOGY CLEARANCE TO STOP/ HOLD 3 DAYS PRIOR TO SURGERY. LAST DOSE Unchanged ascorbic acid (Vitamin C 1000 mg oral tablet) 1 tab(s) by mouth Once a day Unchanged cholecalciferol (Vitamin D3 50 mcg (2000 intl units) oral capsule) 1 cap by mouth Once a day Unchanged ferrous sulfate (IRON (ferrous sulfate 325 mg) 65 mg oral tablet) 1 tab(s) by mouth Daily at 12 noon Take with food. Unchanged glimepiride (Amaryl 1 mg oral tablet) 1 tab(s) by mouth Twice daily with meals Unchanged leflunomide (leflunomide 10 mg oral tablet) 1 tab(s) by mouth Once a day (in the morning) Unchanged lisinopril (lisinopril 40 mg oral tablet) 1 tab(s) by mouth Daily at bedtime Unchanged metformin-sitagliptin (Janumet 50 / 1000 mg oral tablet) 1 tab(s) by mouth Twice daily with meals Unchanged multivitamin (Multivitamin) 1 tab(s) by mouth Every day Unchanged ocular lubricant (Dry Eye Relief ophthalmic solution) 2 Drops Both eyes Once a day as needed for as needed for dry eyes Unchanged pantoprazole (pantoprazole 40 mg oral enteric coated tablet) 1 tab(s) by mouth Once a day (in the morning) Unchanged tamsulosin (tamsulosin 0.4 mg oral capsule) 1 cap by mouth Once a day after a meal Allergies NKA Additional Information VACCINATE! IT SAVES LIVES! Members of the community who have not yet received the COVID-19 vaccine and would like to receive it can visit one of [facility] vaccine clinics. There are many vaccine clinic locations within the [facility]. For locations and available times, please visit [email or web address].[email or web address]/. It is important to note that some COVID mobile vaccine clinics are held outdoors and may be canceled in rainy or stormy conditions. To learn more about pediatric vaccinations (ages 5-11), we invite you to visit the [facility] webpage. [email or web address]/[email or web address] [email or web address] learn more about the COVID-19 vaccine, we invite you to visit the CDC website for a list of frequently asked questions. https://www.cdc.gov/coronavirus/2019-ncov/vaccines/faq.html [facility] Access Instructions: Stay connected with your healthcare team and access your personal medical information anytime with the [facility] Patient Portal.If you would like a full copy of your medical records, please contact the [facility] Medical Records Department, Tuesday through Tuesday between 8a.m. and 4:30p.m. Please follow the directions below to access the portal: 1.Access the email account you provided upon registration to the [facility].2.Look for an invitation email from [facility].3.Open the email and access the invitation link: Accept Invitation to [facility].Fill in the required ortega to create your account. Sign into [email or web address] with your username and password that you created in the above steps to stay up to date. You can then view a summary of results, a summary of your visits, and the ability to download your summaries to your computer or send the information securely to a physician. Remember that your healthcare information is confidential, so carefully consider who you will allow to register on the [facility] Patient Portal for access to your information. You can also access the [facility] Patient Portal on the [employer]. Simply click on Health Records under Access Media 3 and then click on the [facility] logo. HOW TO SAFELY DISPOSE OF PRESCRIPTION MEDICATIONS Please use one of the following methods to safely dispose of your unused medications. 1.Use a drug disposal kit: the drug disposal pouch allows you to safely discard your old and unuseddrugs. Ask your nurse to give you one when you are discharged.2.Visit a local take-back location: Many local pharmacies and police departments have programs that collect old and unwanted prescriptiondrugs. Call your local pharmacy or go to http://[employer].Folloze/0M5Kl1n to find one close to you.3.Make use of household items: Use cat litter or old coffee grounds to dispose medications if other options arenot available. Mix your drugs with these household products, seal them in an airtight container andthrow it into the garbage. Call [facility]: [phone] to be sure your drugs can be disposed of in this way. Some medicines may require a different approach.4.Never flush your medications down the toilet. IF YOU HAVE BEEN PRESCRIBED AN OPIOID FOR PAIN If you have been prescribed an opioid (such as hydrocodone, oxycodone or morphine), it is critical to understand the possible side effects and risks of opioid pain medications. Even when taken as directed, opioids can have several side effects including: Tolerance, meaning you might need to take more of a medication for the same pain relief. Nausea, vomiting and/or constipation. Sleepiness, dizziness, dry mouth, confusion, depression or itching. Physical dependence, meaning you have withdrawal symptoms when a medication is stopped, can develop within a few days. KNOW YOUR RESPONSIBILITIES It is important to know exactly how much and how often to take the opioid pain medications you are prescribed. Never take opioids in higher amounts or more often than prescribed. Do not combine opioids with alcohol or other drugs that cause drowsiness, such as benzodiazepines, also known as benzos, including diazepam and alprazolam, muscle relaxants or sleep aids. Never sell or share prescription opioids. This is illegal. Store opioids in a secure place and out of reach of others (including children, family, friends and visitors). The last page of this document has been signed and retained as a CHART COPY. Signatures Patient Education Materials Medication Leaflets My discharge plan and instructions have been reviewed and explained to me and I,JAYLEN GALAVIZ understand my current condition and have read and understand these discharge instructions. I have received a written copy of the plan/instructions. If I have questions, I am aware that I should contact my doctor. 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 Signature: Date/Time: Relationship to Patient: Witness Name/Signature: Date/Time: [id number] Hospital Discharge instructions Patient Education 09/23/2023 12:53:32 Pyelonephritis, Adult, Detn-je-Hjne Pyelonephritis, Adult Pyelonephritis is an infection that occurs in the kidney. The kidneys are organs that help clean the blood by moving waste out of the blood and into the pee (urine). This infection can happen quickly, or it can last for a long time. In most cases, it clears up with treatment and does not cause other problems. What are the causes? This condition may be caused by: Germs (bacteria) going from the bladder up to the kidney. This may happen after having a bladder infection. Germs going from the blood to the kidney. What increases the risk? This condition is more likely to develop in: women. Older people. People who have any of these conditions: ?Diabetes. ?Inflammation of the prostate gland (prostatitis), in males. ?Kidney stones or bladder stones. ?Other problems with the kidney or the parts of your body that carry pee from the kidneys to the bladder (ureters). ?Cancer. People who have a small, thin tube (catheter) placed in the bladder. People who are sexually active. Women who use a medicine that kills sperm (spermicide) to prevent . People who have had a prior urinary tract infection (UTI). What are the signs or symptoms? Symptoms of this condition include: Peeing often. A strong urge to pee right away. Burning or stinging when peeing. Belly pain. Back pain. Pain in the side (flank area). Fever or chills. Blood in the pee, or dark pee. Feeling sick to your stomach (nauseous) or throwing up (vomiting). How is this treated? This condition may be treated by: Taking antibiotic medicines by mouth (orally). Drinking enough fluids. If the infection is bad, you may need to stay in the hospital. You may be given antibiotics and fluids that are put directly into a vein through an IV tube. In some cases, other treatments may be needed. Follow these instructions at home: Medicines Take your antibiotic medicine as told by your doctor. Do not stop taking the antibiotic even if youstart to feel better. Take iwej-trj-becqskg and prescription medicines only as told by your doctor. General instructions Drink enough fluid to keep your pee pale yellow. Avoid caffeine, tea, and carbonated drinks. Pee (urinate) often. Avoid holding in pee for long periods of time. Pee before and after sex. After pooping (having a bowel movement), women should wipe from front to back. Use each tissue onlyonce. Keep all follow-up visits as told by your doctor. This is important. Contact a doctor if: You do not feel better after 2 days. Your symptoms get worse. You have a fever. Get help right away if: You cannot take your medicine or drink fluids as told. You have chills and shaking. You throw up. You have very bad pain in your side or back. You feel very weak or you pass out (faint). Summary Pyelonephritis is an infection that occurs in the kidney. In most cases, this infection clears up with treatment and does not cause other problems. Take your antibiotic medicine as told by your doctor. Do not stop taking the antibiotic even if youstart to feel better. Drink enough fluid to keep your pee pale yellow. This information is not intended to replace advice given to you by your health care provider. Make sure you discuss any questions you have with your health care provider. Document Released: 09/29/2005 Document Revised: 06/26/2019 Document Reviewed: 06/26/2019 [employer] Patient Education 2020 [employer]. Follow Up Care 09/20/2023 18:53:27 With:JAKI FLEMING DO, Internal Medicine, [facility] Address: [address] [place] [address] [place] [address]- When:1-2 days Comments:THE OFFICE WILL CALL WILL AN APPOINTMENT With:EZEKIEL QUIROS MD, [facility] Address: [address] [place] [address] [address] [place] [address]- When:1-2 days Comments:Please call the office to schedule a follow-up appointment. With:HOME MEDS - Patient had home medication brought in. Please send home with patient. Address: When:1-2 days [facility] 01-19-2024 Discharge summary Date of Service 09/23/2023 Discharge Diagnosis 1. Anemia 2. Nephrolithiasis 3. Hydroureteronephrosis 4. A-fib 5. History of CAD 6. Type 2 diabetes 7. MIRYAM on CKD Additional Orders: Other status: BMP,09/23/23 5:00:00 EST, Next AM Draw (one day only), Blood, Once, Preferred Lab: [facility], Stop date 09/23/23 5:00:00 EST(Complete) Other status: CBC,09/23/23 5:00:00 EST, Next AM Draw (one day only), Blood, Once, Preferred Lab: [facility], Stop date 09/23/23 5:00:00 EST(Complete) Ordered: Discharge,09/23/23 11:13:00 EST, Discharged to: Home Ordered: Discharge Activity,Resume your pre-hospitalization activity, 09/23/23 11:13:00 EST Ordered: Discharge Diet,No changes were made to your diet during your hospital stay. Please resume your pre hospitalization diet on discharge., 09/23/23 11:13:00 EST Ordered: Discharge Outpatient Labwork,BMP, CBC, MIRYAM, anemia, follow-up within: 3-5 days, Results Notify to: JAKI FLEMING DO, 09/23/23 11:13:00 EST Other status: Ferritin,09/23/23 8:37:00 EST, Routine, Blood, Once, Preferred Lab: [facility],Stop date 09/23/23 10:00:00 EST(Complete) Other status: HH,09/23/23 11:10:00 EST, URGENT (collect within 2 hrs), Blood, Once, Preferred Lab: [facility], Stop date 09/23/23 11:10:00 EST(Complete) Other status: Iron Studies,09/23/23 8:37:00 EST, Routine, Blood, Once, Preferred Lab: [facility], Stop date 09/23/23 10:00:00 EST(Complete) Ordered: cefdinir 300 mg oral capsule,Dose : 300 mg = 1 cap(s), Oral, q12h, X 5 day(s), # 10 cap(s), 0 Refill(s), 09/28/23 11:11:00 EST, Pharmacy: [facility], 180.3, cm, 09/20/23 23:28:00 EST, Height, 90.5, kg, 09/20/23 23:28:00 EST, Dosing Weight Ordered: tamsulosin 0.4 mg oral capsule,Dose : 0.4 mg = 1 cap(s), Oral, qDayPC, # 30 cap(s), 0 Refill(s), [facility], 180.3, cm, 09/20/23 23:28:00 EST, Height, kg, 09/20/23 23:28:00 EST, Dosing Weight Hospital Course 88-year-old male with a past medical history of A-fib, CAD, type 2 diabetes, hypertension, and prostate cancer. [facility]ed [facility] with complaint of abdominal pain. Urinalysisconcerning for infection. MIRYAM with creatinine elevated at 2.28, baseline around 1.3. CT abdomen/pelvis demonstrated a stone in the left mid ureter with moderate to severe hydroureteronephrosis. Seen by urology patient was taken to the OR on 09/21/2023 for ureteral stent placement. Patient was noted to have anemia with hemoglobin of 6.7, status post 1 unit packed red blood cells on 09/22/2023. Hemoglobin improved to 7.9 today, there was reports of a dark stool, repeat hemoglobin 9.4. Per nursing, stool is noted to be brown. No signs of active bleeding. Preston catheter has been discontinued and patient is voiding without difficulty. Medically optimized for discharge, CBC and BMP in the next few days to evaluate kidney function and anemia. Creatinine today 1.5, trending towards baseline. Continue Eliquis and remain off of aspirin, aspirin can be restarted next week when he follows up with PCP. Discussed with patient at bedside, discussed with Dr. Ford. Allergies NKA Consults Consult to Physician - Ordered -- 09/21/23 0:43:00 EST, EZEKIEL QUIROS MD, Routine, Nephrolith Physical Exam Vitals and Measurements T: 36.5 C (Oral) TMIN: 36.5 C (Oral) TMAX: 36.7 C (Oral) HR: 78 RR: 18 BP: 144/69 SpO2: 94% Weight Dosing Weight: 90.5 kg (09/20/23) Physical Exam General: Alert, appropriate and awake, oriented to time, people and place Skin: No rash. Warm, Dry, Intact HEENT: Head is normocephalic and atraumatic. No lesions. Pupils equal in size. Extraocular movements within normal limits. Nose: No septal deviation. Mouth: Oropharynx mucosa is without lesion. Neck: Supple. No lymphadenopathy, thyromegaly noted. Lungs: Bilaterally clear/diminished breath sounds with no crepitation or wheeze. Unlabored Cardiovascular: Heart is regular rhythm, S1S2, No extra-audible heart tones Abdomen: Abdomen is soft, nontender. Bowel sounds positive all four quadrants. Extremities: No clubbing, cyanosis or edema. Peripheral pulses palpable. No calf tenderness. Adequate peripheral circulation. Neurological: Following simple commands, moving all extremities. Code Status Code Status - Ordered -- 09/21/23 0:43:00 EST, Full Code, Constant Order Admission Date 09/21/2023 Discharge Date 09/23/2023 Patient Instructions You have labs in the outpatient setting to evaluate your kidney function and hemoglobin You will continue on oral antibiotics and tamsulosin Follow-up with urology and PCP in the outpatient setting Return to Emergency Department for any new or worsening symptoms Medications New Prescription cefdinir (cefdinir 300 mg oral capsule)1 cap by mouth every 12 hours for 5 Days. Refills: 0. tamsulosin (tamsulosin 0.4 mg oral capsule)1 cap by mouth once a day after a meal. Refills: 0. Unchanged acetaminophen-diphenhydramine (Tylenol PM Extra Strength oral tablet)2 tab(s) by mouth daily at bedtime as needed as needed for sleep. apixaban (Eliquis 2.5 mg oral tablet)1 tab(s) by mouth two (2) times a day. Refills: 0. cholecalciferol (Vitamin D3 50 mcg (2000 intl units) oral capsule)1 cap by mouth once a day. glimepiride (Amaryl 1 mg oral tablet)1 tab(s) by mouth two (2) times a day. leflunomide (leflunomide 10 mg oral tablet)1 tab(s) by mouth once a day (in the morning). lisinopril (lisinopril 40 mg oral tablet)1 tab(s) by mouth daily at bedtime. multivitamin (Multivitamin)1 tab(s) by mouth every day. pantoprazole (pantoprazole 40 mg oral enteric coated tablet)1 tab(s) by mouth once a day. vitamin E (vitamin E 400 intl units oral capsule)1 cap by mouth every day. Discontinued aspirin (aspirin 81 mg oral tablet, chewable)1 tab(s) by mouth once a day (in the morning). metformin-sitagliptin (Janumet 50 / 1000 mg oral tablet)1 tab(s) by mouth two (2) times a day. Follow Up Follow Up with JAKI FLEMING DO, Internal Medicine, [facility] / IM When Within 1-2 days Why: THE OFFICE WILL CALL WILL AN APPOINTMENT Where: [address] [facility] [place] [address]- Follow Up with EZEKIEL QUIROS MD, [facility] When Within 1-2 days Why: Please call the office to schedule a follow-up appointment. Where: [address] [facility] [address]- Follow Up with HOME MEDS - Patient had home medication brought in. Please send home with patient. When Within 1-2 days Where: Follow Up Appointments No qualifying data available. Follow Up Labs/Studies Discharge Labs Discharge Outpatient Labwork - Ordered -- BMP, CBC, MIRYAM, anemia, follow-up within: 3-5 days, Results Notify to: JAKI FLEMING DO, 09/23/2410:13:00 EST Discharge Studies No Follow-up Studies Discharge Diet Discharge Diet - Ordered -- No changes were made to your diet during your hospital stay. Please resume your pre hospitalization diet on discharge., 09/23/23 11:13:00 EST Discharge Activity Discharge Activity - Ordered -- Resume your pre-hospitalization activity, 09/23/23 11:13:00 EST Condition on Discharge Stable Discharge Disposition Home Information Provided To Patient Time Spent 33 minutes spent on discharge with greater than 50% that time spent on direct patient care and carecoordination. Digitally Signed by ERIKA HAWLEY on 09/23/2023 02:16 PM [id number] Note Discharge Instructions Thank you for allowing [facility] to assist you with your healthcare needs. The following is importantdischarge information regarding your hospital visit. Your Care Team JAKI FLEMING DO Your Diagnosis Acute on chronic kidney failure Atrial fibrillation CAD in [place] artery Hydronephrosis Nephrolithiasis Non-Insulin Dependent Diabetes Mellitus Pyelonephritis What to do next Scheduled Follow-Up Appointments Appointment Type When With Where Contact InformationURO OV 10/14/2023 10:10 AM EST EZEKIEL BURRIS MD [facility] INF Labwork 10/18/2023 10:30 AM EST Infusion Therapy HEM ONC OV Follow Up w/Active Treatment 10/18/2023 11:15 AM CLOVER ORELLANA MD [facility] INF Chemo: Infusion Injection 15 min 10/18/2023 11:45 AM EST Infusion Therapy CV OV 11/03/2023 10:00 AM EST CHARMAINE LO [facility] Follow Up Appointments Follow Up with JAKI FLEMING DO, Internal Medicine, [facility] / IM When Within 1-2 days Why: THE OFFICE WILL CALL WILL AN APPOINTMENT Where: [address] [facility] [place] [address]- Follow Up with EZEKIEL QUIROS MD, [facility] When Within 1-2 days Why: Please call the office to schedule a follow-up appointment. Where: [address] [place] [address]- Follow Up with HOME MEDS - Patient had home medication brought in. Please send home with patient. When Within 1-2 days Where: The Following Activity and Diet Have Been Ordered for You Discharge Activity - Ordered -- Resume your pre-hospitalization activity, 09/23/23 11:13:00 EST Discharge Diet - Ordered -- No changes were made to your diet during your hospital stay. Please resume your pre hospitalization diet on discharge., 09/23/23 11:13:00 EST The Following Equipment Has Been Ordered for You No qualifying data available. The Following Treatments Have Been Ordered for You Discharge Labs Discharge Outpatient Labwork - Ordered -- BMP, CBC, MIRYAM, anemia, follow-up within: 3-5 days, Results Notify to: JAKI FLEMING DO, 09/23/2410:13:00 EST Discharge Radiology No qualifying data available. Other Therapies No qualifying data available. Post Acute Orders No qualifying data available. Someone Will Contact You Regarding These Home Health Referrals No home referrals have been ordered for you. No one will call you. Allergies NKA Medications Please ask your primary doctor or pharmacist before taking any other medication not listed, including over the counter drugs, herbal medications, vitamins and or supplements as they may interact withur home medications. What How Much When Instructions Last Dose New cefdinir (cefdinir 300 mg oral capsule) 1 cap by mouth Every 12 hours Duration: 5 Days Pickup at [facility] New tamsulosin (tamsulosin 0.4 mg oral capsule) 1 cap by mouth Once a day after a meal Pickup at [facility] Unchanged acetaminophen-diphenhydramine (Tylenol PM Extra Strength oral tablet) 2 tab(s) by mouth Daily at bedtime as needed for as needed for sleep Unchanged apixaban (Eliquis 2.5 mg oral tablet) 1 tab(s) by mouth Two (2) times a day Unchanged aspirin (aspirin 81 mg oral tablet, chewable) 1 tab(s) by mouth Once a day (in the morning) Unchanged cholecalciferol (Vitamin D3 50 mcg (2000 intl units) oral capsule) 1 cap by mouth Once a day Unchanged glimepiride (Amaryl 1 mg oral tablet) 1 tab(s) by mouth Two (2) times a day Unchanged leflunomide (leflunomide 10 mg oral tablet) 1 tab(s) by mouth Once a day (in the morning) Unchanged lisinopril (lisinopril 40 mg oral tablet) 1 tab(s) by mouth Daily at bedtime Unchanged multivitamin (Multivitamin) 1 tab(s) by mouth Every day Unchanged pantoprazole (pantoprazole 40 mg oral enteric coated tablet) 1 tab(s) by mouth Once a day Unchanged vitamin E (vitamin E 400 intl units oral capsule) 1 cap by mouth Every day Pharmacy Information [facility]: [id number] [place] [address] [phone] What How Much When Comments Stop Taking metformin-sitagliptin (Janumet 50 / 1000 mg oral tablet) 1 tab(s) by mouth Two (2) times a day Please take this list to your next doctor s visit. Bring all medications you take, including over the counter medications, herbals and other supplements with you to your doctor s visit. Patients and families are reminded to discard old lists and to update any records with all medication providers or retail pharmacies. Medication Leaflets tamsulosin (grey declan GIOVANNY sin) Flomax What is the most important information I should know about tamsulosin? Use only as directed. Tell your doctor if you use other medicines or have other medical conditions or allergies. What is tamsulosin? Tamsulosin is used to treat symptoms of benign prostatic hyperplasia (enlarged prostate). Tamsulosin is not approved for use in women or children. Tamsulosin may also be used for purposes not listed in this medication guide. What should I discuss with my healthcare provider before taking tamsulosin? You should not use tamsulosin if you are allergic to it. Tell your doctor if you have ever had: prostate cancer; low blood pressure; an allergy to sulfa drugs; or liver or kidney disease. Tamsulosin can affect your pupils. If you have cataract surgery, tell the surgeon you use this medicine. Ask your doctor about prostate cancer screening before and while taking tamsulosin. Tamsulosin is not approved for use in women. How should I take tamsulosin? Follow all directions on your prescription label and read all medication guides or instruction sheets. Use the medicine exactly as directed. Tamsulosin is usually taken once a day, within 30 minutes after the same meal each day. Swallow the capsule whole and do not crush, chew, break, or open it. Your blood pressure will need to be checked often. If you stop using this medicine, do not start it again without your doctor's advice. Store tightly closed at room temperature, away from moisture and heat. What happens if I miss a dose? Take the medicine as soon as you can, but skip the missed dose if it is almost time for your next dose. Do not take two doses at one time. If you stop using this medicine for several days in a row, do not start it again without your doctor's advice. What happens if I overdose? Seek emergency medical attention or call the Poison Help line at . What should I avoid while taking tamsulosin? Avoid driving or hazardous activity until you know how this medicine will affect you. Your reactions could be impaired. Avoid getting up too fast from a sitting or lying position, or you may feel dizzy. What are the possible side effects of tamsulosin? Get emergency medical help if you have signs of an allergic reaction (hives, difficult breathing, swelling in your face or throat) or a severe skin reaction (fever, sore throat, burning eyes, skin pain, red or purple skin rash with blistering and peeling). Tamsulosin may lower your blood pressure and may cause dizziness or fainting, especially when you first start taking it or your dose changes. Stop using tamsulosin and call your doctor at once if you have: a light-headed feeling, like you might pass out; or a painful erection that lasts 4 hours or longer. Common side effects may include: abnormal ejaculation, decreased amount of semen; dizziness, drowsiness, weakness; runny or stuffy nose, sore throat, cough; back pain, chest pain, headache; nausea, diarrhea; tooth problems; blurred vision; sleep problems (insomnia); or decreased interest in sex. This is not a complete list of side effects and others may occur. Call your doctor for medical advice about side effects. You may report side effects to FDA at 6-682-NBP-9482. What other drugs will affect tamsulosin? Sometimes it is not safe to use certain medicines at the same time. Some drugs can affect your blood levels of other drugs you use, which may increase side effects or make the medicines less effective. Tell your doctor about all your current medicines. Many drugs can affect tamsulosin, especially: cimetidine; medicine to treat impotence or pulmonary arterial hypertension--avanafil (Stendra), sildenafil (Viagra, Revatio), tadalafil (Adcirca, Cialis), or vardenafil (Levitra, Staxyn); or drugs to treat high blood pressure or a prostate disorder--alfuzosin, doxazosin, prazosin, terazosin, silodosin. This list is not complete and many other drugs may affect tamsulosin. This includes prescription and lged-fan-ozdaasv medicines, vitamins, and herbal products. Not all possible drug interactions are listed here. Where can I get more information? Your doctor or pharmacist can provide more information about tamsulosin. Remember, keep this and all other medicines out of the reach of children, never share your medicines with others, and use this medication only for the indication prescribed. Every effort has been made to ensure that the information provided by [employer]. ('[employer]') is accurate, up-to-date, and complete, but no guarantee is made to that effect. Drug information contained herein may be time sensitive. [employer] information has been compiled for use by healthcare practitioners and consumers in the [place] and therefore [employer] does not warrant that uses outside of the [place] are appropriate, unless specifically indicated otherwise. [employer] drug information does not endorse drugs, diagnose patients or recommend therapy. [employer]s drug information isan informational resource designed to assist licensed healthcare practitioners in caring for their p atients and/or to serve consumers viewing this service as a supplement to, and not a substitute for, the expertise, skill, knowledge and judgment of healthcare practitioners. The absence of a warningfor a given drug or drug combination in no way should be construed to indicate that the drug or drug combination is safe, effective or appropriate for any given patient. [facility] does not assume any responsibility for any aspect of healthcare administered with the aid of information [employer] provides. The information contained herein is not intended to cover all possible uses, directions, precautions, warnings, drug interactions, allergic reactions, or adverse effects. If you have questions about the drugs you are taking, check with your doctor, nurse or pharmacist. Copyright 3976-0555 [facility] [employer]. Version: 07.06. Revision Date: 11/26/2022. cefdinir (SE wander bari) What is the most important information I should know about cefdinir? Do not take this medicine if you are allergic to cefdinir, or to similar antibiotics, such as Ceftin, Cefzil, Keflex, and others. What is cefdinir? Cefdinir is a cephalosporin (SEF a low spor in) antibiotic that is used to treat many different types of infections caused by bacteria. Cefdinir may also be used for purposes not listed in this medication guide. What should I discuss with my healthcare provider before taking cefdinir? You should not take this medicine if you are allergic to cefdinir or any other cephalosporin antibiotic (cefadroxil, cefprozil, cefazolin, cefalexin, Keflex, and others). Tell your doctor if you have ever had: kidney disease (or if you are on dialysis); intestinal problems, such as colitis; or an allergy to any drugs (especially penicillins). Cefdinir liquid contains sucrose. Talk to your doctor before using this form of cefdinir if you have diabetes. Tell your doctor if you are or . How should I take cefdinir? Follow all directions on your prescription label and read all medicine guides or instruction sheets. Use the medicine exactly as directed. Shake the oral suspension (liquid) before you measure a dose. Use the dosing syringe provided, or use a medicine dose-measuring device (not a kitchen spoon). You may take cefdinir with or without food. Use this medicine for the full prescribed length of time, even if your symptoms quickly improve. Skipping doses can increase your risk of infection that is resistant to medication. Cefdinir will not treat a viral infection such as the flu or a common cold. Cefdinir can affect the results of certain medical tests. Tell any doctor who treats you that you are using cefdinir. Store at room temperature away from moisture and heat. Throw away any unused cefdinir liquid that is older than 10 days. What happens if I miss a dose? Take the medicine as soon as you can, but skip the missed dose if it is almost time for your next dose. Do not take two doses at one time. What happens if I overdose? Seek emergency medical attention or call the Poison Help line at . Overdose symptoms may include nausea, vomiting, stomach pain, diarrhea, or a seizure. What should I avoid while taking cefdinir? Avoid using antacids or mineral supplements that contain aluminum, magnesium, or iron within 2 hours before or after taking cefdinir. Antacids or iron can make it harder for your body to absorb cefdinir. This does not include baby formula fortified with iron. Antibiotic medicines can cause diarrhea, which may be a sign of a new infection. If you have diarrhea that is watery or bloody, call your doctor before using anti-diarrhea medicine. What are the possible side effects of cefdinir? Get emergency medical help if you have signs of an allergic reaction (hives, difficult breathing, swelling in your face or throat) or a severe skin reaction (fever, sore throat, burning eyes, skin pain, red or purple skin rash with blistering and peeling). Call your doctor at once if you have: severe stomach pain, diarrhea that is watery or bloody (even if it occurs months after your last dose); fever, chills, body aches, flu symptoms; pale skin, easy bruising, unusual bleeding; seizure (convulsions); fever, weakness, confusion; dark colored urine, jaundice (yellowing of the skin or eyes); or kidney problems--little or no urination, swelling in your feet or ankles, feeling tired or short ofbreath. Common side effects may include: nausea, vomiting, stomach pain, diarrhea; vaginal itching or discharge; headache; or rash (including diaper rash in an taking liquid cefdinir. This is not a complete list of side effects and others may occur. Call your doctor for medical advice about side effects. You may report side effects to FDA at 4-888-UMP-5449. What other drugs will affect cefdinir? Tell your doctor about all your other medicines, especially: probenecid; or vitamin or mineral supplements that contain iron. This list is not complete. Other drugs may affect cefdinir, including prescription and oayj-oxd-mtugsoj medicines, vitamins, and herbal products. Not all possible drug interactions are listed here. Where can I get more information? Your pharmacist can provide more information about cefdinir. Remember, keep this and all other medicines out of the reach of children, never share your medicines with others, and use this medication only for the indication prescribed. Every effort has been made to ensure that the information provided by [employer]. ('[employer]') is accurate, up-to-date, and complete, but no guarantee is made to that effect. Drug information contained herein may be time sensitive. [employer] information has been compiled for use by healthcare practitioners and consumers in the [place] and therefore [employer] does not warrant that uses outside of the [place] are appropriate, unless specifically indicated otherwise. [employer] drug information does not endorse drugs, diagnose patients or recommend therapy. [employer] drug information isan informational resource designed to assist licensed healthcare practitioners in caring for their p atients and/or to serve consumers viewing this service as a supplement to, and not a substitute for, the expertise, skill, knowledge and judgment of healthcare practitioners. The absence of a warningfor a given drug or drug combination in no way should be construed to indicate that the drug or drug combination is safe, effective or appropriate for any given patient. [employer] does not assume any responsibility for any aspect of healthcare administered with the aid of information [employer] provides. The information contained herein is not intended to cover all possible uses, directions, precautions, warnings, drug interactions, allergic reactions, or adverse effects. If you have questions about the drugs you are taking, check with your doctor, nurse or pharmacist. Copyright 1569-5971 [employer]. Version: 9.01. Revision Date: 04/08/2023. Education Materials Pyelonephritis, Adult Pyelonephritis is an infection that occurs in the kidney. The kidneys are organs that help clean the blood by moving waste out of the blood and into the pee (urine). This infection can happen quickly, or it can last for a long time. In most cases, it clears up with treatment and does not cause other problems. What are the causes? This condition may be caused by: Germs (bacteria) going from the bladder up to the kidney. This may happen after having a bladder infection. Germs going from the blood to the kidney. What increases the risk? This condition is more likely to develop in: women. Older people. People who have any of these conditions: ? Diabetes. ? Inflammation of the prostate gland (prostatitis), in males. ? Kidney stones or bladder stones. ? Other problems with the kidney or the parts of your body that carry pee from the kidneys to the bladder (ureters). ? Cancer. People who have a small, thin tube (catheter) placed in the bladder. People who are sexually active. Women who use a medicine that kills sperm (spermicide) to prevent . People who have had a prior urinary tract infection (UTI). What are the signs or symptoms? Symptoms of this condition include: Peeing often. A strong urge to pee right away. Burning or stinging when peeing. Belly pain. Back pain. Pain in the side (flank area). Fever or chills. Blood in the pee, or dark pee. Feeling sick to your stomach (nauseous) or throwing up (vomiting). How is this treated? This condition may be treated by: Taking antibiotic medicines by mouth (orally). Drinking enough fluids. If the infection is bad, you may need to stay in the hospital. You may be given antibiotics and fluids that are put directly into a vein through an IV tube. In some cases, other treatments may be needed. Follow these instructions at home: Medicines Take your antibiotic medicine as told by your doctor. Do not stop taking the antibiotic even if youstart to feel better. Take xsgx-yfd-doinyyd and prescription medicines only as told by your doctor. General instructions Drink enough fluid to keep your pee pale yellow. Avoid caffeine, tea, and carbonated drinks. Pee (urinate) often. Avoid holding in pee for long periods of time. Pee before and after sex. After pooping (having a bowel movement), women should wipe from front to back. Use each tissue onlyonce. Keep all follow-up visits as told by your doctor. This is important. Contact a doctor if: You do not feel better after 2 days. Your symptoms get worse. You have a fever. Get help right away if: You cannot take your medicine or drink fluids as told. You have chills and shaking. You throw up. You have very bad pain in your side or back. You feel very weak or you pass out (faint). Summary Pyelonephritis is an infection that occurs in the kidney. In most cases, this infection clears up with treatment and does not cause other problems. Take your antibiotic medicine as told by your doctor. Do not stop taking the antibiotic even if youstart to feel better. Drink enough fluid to keep your pee pale yellow. This information is not intended to replace advice given to you by your health care provider. Make sure you discuss any questions you have with your health care provider. Document Released: 09/29/2005 Document Revised: 06/26/2019 Document Reviewed: 06/26/2019 [employer] Patient Education 2020 [employer] Additional Information VACCINATE! IT SAVES LIVES! Members of the community who have not yet received the COVID-19 vaccine and would like to receive it can visit one of [facility] vaccine clinics. There are many vaccine clinic locations within the [facility]. For locations and available times, please visit [email or web address].[place].gov/. It is important to note that some COVID mobile vaccine clinics are held outdoors and may be canceled in rainy or stormy conditions. To learn more about pediatric vaccinations (ages 5-11), we invite you to visit the [facility] webpage. https://www.[facility].org/pages/6513-Quuvp-Hvtyaajvtfb-Tzjqvdpvln-Ttyaf-Dgs stions.htmlTo learn more about the COVID-19 vaccine, we invite you to visit the CDC website for a list of frequently asked questions.https://www.cdc.gov/coronavirus/2019-ncov/vaccines/faq.html [facility] Access Instructions: Stay connected with your healthcare team and access your personal medical information anytime with the [facility] Patient Portal. Please follow the directions below to create your [facility] account: 1.Access the email account you provided upon registration to the hospital/physician office.2.Look for an invitation email from [facility].3.Open the email and access the invitation link: AcceptInvitation to [facility].4.Fill in the required ortega to create your account. To access your account, visit [facility] Click the blue button labeled Access Patient Portal and then log in with the username and password that you created in the steps above. You will be able to view your test results, lab results, a summary of your visits, upcoming appointments and more. There is also a convenient messaging option where you can send secure messages to your p [employer]. In addition, you will have the ability to download any documents or summaries to your computer and/or send the information securely to a physician. Remember that your healthcare information is confidential, so carefully consider who you will allowto register on the [facility] Patient Portal for access to your information. You can also access the [facility] Patient Portal on the [facility] jyoti. Simply click on Patient Portal and then log into your account. If you would like to receive a full copy of your medical records, please contact the [facility] Medical Records Department by calling [phone], Tuesday through Tuesday between 8 a.m. and 4:30 p.m. HOW TO SAFELY DISPOSE OF PRESCRIPTION MEDICATIONS Please use one of the following methods to safely dispose of your unused medications. 1.Use a drug disposal kit: the drug disposal pouch allows you to safely discard your old and unuseddrugs. Ask your nurse to give you one when you are discharged.2.Visit a local take-back location: Many local pharmacies and police departments have programs that collect old and unwanted prescriptiondrugs. Call your local pharmacy or go to [email or web address] to find one close to you.3.Make use of household items: Use cat litter or old coffee grounds to dispose medications if other options arenot available. Mix your drugs with these household products, seal them in an airtight container andthrow it into the garbage. Call [facility]: [phone] to be sure your drugs can be disposed of in this way. Some medicines may require a different approach.4.Never flush your medications down the toilet. IF YOU HAVE BEEN PRESCRIBED AN OPIOID FOR PAIN If you have been prescribed an opioid (such as hydrocodone, oxycodone or morphine), it is critical to understand the possible side effects and risks of opioid pain medications. Even when taken as directed, opioids can have several side effects including: Tolerance, meaning you might need to take more of a medication for the same pain relief. Nausea, vomiting and/or constipation. Sleepiness, dizziness, dry mouth, confusion, depression or itching. Physical dependence, meaning you have withdrawal symptoms when a medication is stopped, can develop within a few days. KNOW YOUR RESPONSIBILITIES It is important to know exactly how much and how often to take the opioid pain medications you are prescribed. Never take opioids in higher amounts or more often than prescribed. Do not combine opioids with alcohol or other drugs that cause drowsiness, such as benzodiazepines, also known as benzos, including diazepam and alprazolam, muscle relaxants or sleep aids. Never sell or share prescription opioids. This is illegal. Store opioids in a secure place and out of reach of others (including children, family, friends and visitors). The last page of this document has been signed and retained as a CHART COPY. Signatures Patient Education Materials Pyelonephritis, Adult, Yiiv-di-Vack Medication Leaflets tamsulosin, cefdinir My discharge plan and instructions have been reviewed and explained to me and I,JAYLEN GALAVIZ understand my current condition and have read and understand these discharge instructions. I have received a written copy of the plan/instructions. If I have questions, I am aware that I should contact my doctor. 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 Some hematuria while ambulating via Preston. No fevers chills and overall feels better with no further left-sided pain. Physical Exam Vitals and Measurements T: 36.5 C (Oral) TMIN: 36.5 C (Oral) TMAX: 36.7 C (Oral) HR: 78 RR: 18 BP: 144/69 SpO2: 94% Weight Dosing Weight: 90.5 kg (09/20/23) Abdomen is soft there is no CVAT. Preston draining light pink urine with good output. Penis scrotum normal Preston catheter irrigation: After sterile prep drape I used 700 cc of sterile normal saline to irrigate the bladder and multiple mostly old clots were evacuated and the E flux is clear. I then remove Preston catheter. Assessment/Plan 1. History of prostate cancer high-grade multifocal recent score 7 and 8 presented with PSA of 10 status post radiation therapy completed 07/28 currently receiving Lupron to complete a 2-year postradiation course. On CT there are post radiation changes with hypodense parenchyma posterior prostate on CT which was originally calcified on imaging from 05/28. No clinical evidence of abscess. 2. Movement of a known left renal stone into the mid left ureter about 9 mm but quite dense with associated hydronephrosis and perinephric inflammatory changes present with left renal colic 3. Associated urinary tract infection with fevers, pyuria bacteriuria 4. Acute kidney injury with baseline creatinine level around 1.3 currently up to 2.2. This is secondary to dehydration and unilateral left renal obstruction improved post hydration and stent placement. See below 5. Anticoagulation with Eliquis for atrial fibrillation. Coincidentally patient did have a nosebleed and because of this has been off of Eliquis for 3 days. Will hold anticoagulation at this point 6. Status post emergent left ureteral stent placement which was difficult because of significant J hooking of the distal ureter and impacted large 1 cm stone mid left ureter. 09/21/2023 Overall patient doing well. I irrigated some old clots out of the bladder and the eflux was mostly clear and the Preston was removed this morning. Urine culture growing out mostly sensitive staphylococcal species as above. If patient is able to void, okay for discharge later on this afternoon. Might consider 1 week of Augmentin postdischarge. Would also make sure patient remains on Flomax post discharge until stone is treated and stent is eventually removed. Needs follow- up in the clinic over thenext several weeks to schedule ureteroscopy with laser lithotripsy. He will need to hold Eliquis 3 days before. He is going to have what sounds like EGD for Baptiste's, and is holding Eliquis around October 31 before procedure. Depending on scheduling, I mention that we might want to consider doingureteroscopic procedure after that. Due to the significant impaction of the stone would recommend waiting at least 3 to 4 weeks before performing ureteroscopy. Advised patient to restart Eliquis tomorrow evening if urine remains clear. If not he might need tohold another 24 hours and thromboembolic risks are reviewed. Problem List/Past Medical History Ongoing 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 Chronic venous insufficiency Diabetes Elevated PSA Family history of prostate cancer GERD - Gastro-esophageal reflux disease H/O epistaxis Hernia, internal History of blood clots History of urinary retention Kidney stones Macular degeneration Nocturia Non-Insulin Dependent Diabetes Mellitus Renal insufficiency, mild Synovial cyst Ureterovesical junction obstruction Historical Diastasis recti History of UTI Procedure/Surgical History Transperineal biopsy of prostate using magnetic resonance imaging and ultrasonography fusion guidance: 02/01/23 Heart valve replacement - graft: 2012 CABG (Coronary artery bypass grafting) planned: 09/17/12 Colonoscopy Esophagogastroduodenoscopy Carpal tunnel release Hiatus hernia repair Medications Inpatient acetaminophen, 650 mg= 2 tab(s), Oral, q6hWA, PRN cefTRIAXone, 1 gram(s)= 10 mL, IV Push (INT), qDay Dextrose 50% IV Push, 12.5 gram(s)= 25 mL, IV Push, AsDirected, PRN Home Meds Verified, Home Meds Verified, Miscellaneous, qDay HumaLOG 100 units/mL subcutaneous solution, Give 0-5 units/dose, Subcutaneous, TIDAC leflunomide, 10 mg= 1 tab(s), Oral, qAM LR 1,000 mL, 1000 mL, Intravenous melatonin, 3 mg= 1 tab(s), Oral, qHS, PRN melatonin, 3 mg= 1 tab(s), Oral, qHS, PRN morphine, 2 mg= 1 mL, IV Push, q3h, PRN morphine, 3 mg= 0.75 mL, IV Push, q3h, PRN pantoprazole, 40 mg= 1 tab(s), Oral, qDay tamsulosin, 0.4 mg= 1 cap(s), Oral, qDayPC Zofran, 4 mg= 2 mL, IV Push, q4h, PRN Zofran ODT, 4 mg= 1 tab(s), Oral, q6h, PRN Home Amaryl 1 mg oral tablet, 1 mg= 1 tab(s), Oral, BID aspirin 81 mg oral tablet, chewable, 81 mg= 1 tab(s), Oral, qAM Eliquis 2.5 mg oral tablet, 2.5 mg= 1 tab(s), Oral, BID, Still taking, not as prescribed: Patient reported stopping medication on 09/17 due to nosebleed. Janumet 50 / 1000 mg oral tablet, 1 tab(s), Oral, BID leflunomide 10 mg oral tablet, 10 mg= 1 tab(s), Oral, qAM lisinopril 40 mg oral tablet, 40 mg= 1 tab(s), Oral, qHS Multivitamin, 1 tab(s), Oral, Daily pantoprazole 40 mg oral enteric coated tablet, 40 mg= 1 tab(s), Oral, qDay Tylenol PM Extra Strength oral tablet, 2 tab(s), Oral, qHS, PRN Vitamin D3 50 mcg (2000 intl units) oral capsule, 50 mcg= 1 cap(s), Oral, qDay vitamin E 400 intl units oral capsule, 400 International_Unit= 1 cap(s), Oral, Daily Allergies NKA Social History Smoking Status - 04/15/2018 Never smoker Alcohol - Denies Alcohol Use, 09/18/2017 Use: Never., 03/28/2023 Employment/School Status: Retired. Previous employment/school: [employer] 03/28/2023 Home/Environment Marital Status: ., 03/28/2023 Substance Abuse - Denies Substance Abuse, 09/18/2017 Use: Never., 03/28/2023 Tobacco Nicotine Use: Never (less than 100 in lifetime)., 03/16/2023 Family History Arthritis 28-MAY-2014 16:49:04<$>: Son. Asthma: Brother. Bladder cancer: Negative: Mother, Father, Brother, Son and Grandparent. Colon cancer: Negative: Mother, Father, Sister, Brother, Daughter, Son, Son, Son, Son and Grandparent. Diabetes mellitus: Mother. Heart attack: Son. Heart disease: Mother and Father. Kidney stone: Negative: Mother, Father, Brother, Son and Grandparent. Prostate cancer: Negative: Father and Grandparent. Prostate cancer 03-Mar-2016 02:35:22<$>: Brother. Renal cancer: Negative: Mother, Father, Brother, Son and Grandparent. Stroke: Mother. Immunizations SARS-CoV-2 (COVID-19) mRNA-1273 vaccine: 0.25 unknown unit (07/28/21) SARS-CoV-2 (COVID-19) mRNA-1273 vaccine: 0.5 unknown unit (10/30/20) SARS-CoV-2 (COVID-19) mRNA-1273 vaccine: 0.5 unknown unit (10/02/20) tetanus/diphth/pertuss (Tdap) adult/adol: 0.5 unknown unit (07/20/18) Digitally Signed by EZEKIEL QUIROS MD on 09/23/2023 09:33 AM [id number] Note Date of Service 09/22/2023 Chief Complaint Weakness Subjective 88-year-old male with a past medical history of A-fib, CAD, type 2 diabetes, hypertension, and prostate cancer. Presented to [facility] on 09/21/2023 with complaint of abdominal pain. Urinalysisconcerning for infection. MIRYAM with creatinine elevated at 2.28, baseline around 1.3. CT abdomen/pelvis demonstrated a stone in the left mid ureter with moderate to severe hydroureteronephrosis. Seen by urology patient was taken to the OR on 09/21/2023 for ureteral stent placement. Urology recommended remaining off anticoagulation for now. Urine culture positive for staph lugdunensis. On exam, patient is sitting up in bed. No chest pain, shortness of breath, nausea, vomiting, diarrhea. Abdominal pain greatly improved. Objective Vitals and Measurements T: 36.6 C (Oral) TMIN: 36.2 C (Oral) TMAX: 36.6 C (Oral) HR: 54 RR: 16 BP: 106/52 SpO2: 98% Intake and Output 7AM Yesterday to 7AM Today Intake and Output (Last 24 hours) Intake Red Blood Cells Amount Transfused 500.00 Administration Information 1200.00 Oral Intake 1060.00 Output Urinary Catheter Output: 2234.00 Stool Count 0.00 Total Summary Total Intake 2760.00 Total Output 2234.00 Fluid Balance 526.00 Physical Exam Physical Exam General: Alert, appropriate and awake, oriented to time, people and place Skin: No rash. Warm, Dry, Intact HEENT: Head is normocephalic and atraumatic. No lesions. Pupils equal in size. Extraocular movements within normal limits. Nose: No septal deviation. Mouth: Oropharynx mucosa is without lesion. Neck: Supple. No lymphadenopathy, thyromegaly noted. Lungs: Bilaterally clear/diminished breath sounds with no crepitation or wheeze. Unlabored Cardiovascular: Heart is regular rhythm, S1S2, No extra-audible heart tones Abdomen: Abdomen is soft, nontender. Bowel sounds positive all four quadrants. Extremities: No clubbing, cyanosis or edema. Peripheral pulses palpable. No calf tenderness. Adequate peripheral circulation. Neurological: Following simple commands, moving all extremities. Weight Dosing Weight: 90.5 kg (09/20/23) Medications Medications (14) Active Scheduled: (5) cefTRIAXone IVP syringe 1 gram(s) 10 mL, IV Push (INT), qDay insulin lispro 100 units/mL Soln (3 mL) Give 0-5 units/dose, Subcutaneous, TIDAC leflunomide 10 mg tablet 10 mg 1 tab(s), Oral, qAM pantoprazole 40 mg EC tablet 40 mg 1 tab(s), Oral, qDay tamsulosin 0.4 mg Capsule 0.4 mg 1 cap(s), Oral, qDayPC Continuous: (1) Lactated Ringers 1,000 mL 1,000 mL, Intravenous, 75 mL/hr PRN: (8) acetaminophen 325 mg Tablet 650 mg 2 tab(s), Oral, q6hWA dextrose 50% Solution Disp syringe 50 mL 12.5 gram(s) 25 mL, IV Push, AsDirected melatonin 3 mg tablet 3 mg 1 tab(s), Oral, qHS melatonin 3 mg tablet 3 mg 1 tab(s), Oral, qHS morphine 2 mg/mL 1 mL syringe 2 mg 1 mL, IV Push, q3h morphine 4 mg/mL 1mL INJ 3 mg 0.75 mL, IV Push, q3h ondansetron 2 mg/ 1 mL 2 mL INJ 4 mg 2 mL, IV Push, q4h ondansetron 4 mg DIS tablet 4 mg 1 tab(s), Oral, q6h Lab Results 09/22 11:13 Hgb: 8.2 L Hct: 24.3 L 09/22 03:40 WBC: 5.8 Hgb: 6.7 C Hct: 19.9 L Platelet: 139 L Neutrophil %: 88.2 H Glucose Level: 169 H Sodium Level: 137 Potassium Level: 4.5 BUN: 32.0 H Creatinine Lvl (s): 1.58 H 09/21 03:46 WBC: 6.8 Hgb: 7.3 L Hct: 21.9 L Platelet: 161 Neutrophil %: 84.2 H Glucose Level: 127 H Sodium Level: 139 Potassium Level: 4.5 BUN: 33.0 H Creatinine Lvl (s): 2.04 H EKG No qualifying data available. Assessment/Plan 1. Anemia 2. Nephrolithiasis 3. Hydroureteronephrosis 4. A-fib 5. History of CAD 6. Type 2 diabetes 7. MIRYAM on CKD Hemoglobin 6.7, signs of bleeding. 8.2 after 1 unit packed red blood cells. CBC in the morning. Nephrolithiasis with hydroureteronephrosis status post stent placement. Preston catheter remains in place. Urology recommending to continue this until tomorrow. A-fib, treatment remain off anticoagulation per urology's recommendation. History of CAD, no chest pain. Type 2 diabetes, continue sliding scale insulin. MIRYAM on CKD, creatinine improving. BMP in the morning. UTI, culture positive for staph Lugdunensis. Noted to be pansensitive CODE STATUS: Full code discussed with patient at bedside, discussed with Dr. Ford Time Spent Total time spent reviewing labs, diagnostics, evaluating the patient, and medical decision makin minutes Digitally Signed by ERIKA HAWLEY on 09/22/2023 02:47 PM [id number] Note Date of Service 09/22/2023 Chief Complaint Weakness Subjective 88-year-old male with a past medical history of A-fib, CAD, type 2 diabetes, hypertension, and prostate cancer. Presented to [facility] on 09/21/2023 with complaint of abdominal pain. Urinalysisconcerning for infection. MIRYAM with creatinine elevated at 2.28, baseline around 1.3. CT abdomen/pelvis demonstrated a stone in the left mid ureter with moderate to severe hydroureteronephrosis. Seen by urology patient was taken to the OR on 09/21/2023 for ureteral stent placement. Urology recommended remaining off anticoagulation for now. Urine culture positive for staph lugdunensis. On exam, patient is sitting up in bed. No chest pain, shortness of breath, nausea, vomiting, diarrhea. Abdominal pain greatly improved. Objective Vitals and Measurements T: 36.6 C (Oral) TMIN: 36.2 C (Oral) TMAX: 36.6 C (Oral) HR: 54 RR: 16 BP: 106/52 SpO2: 98% Intake and Output 7AM Yesterday to 7AM Today Intake and Output (Last 24 hours) Intake Red Blood Cells Amount Transfused 500.00 Administration Information 1200.00 Oral Intake 1060.00 Output Urinary Catheter Output: 2234.00 Stool Count 0.00 Total Summary Total Intake 2760.00 Total Output 2234.00 Fluid Balance 526.00 Physical Exam Physical Exam General: Alert, appropriate and awake, oriented to time, people and place Skin: No rash. Warm, Dry, Intact HEENT: Head is normocephalic and atraumatic. No lesions. Pupils equal in size. Extraocular movements within normal limits. Nose: No septal deviation. Mouth: Oropharynx mucosa is without lesion. Neck: Supple. No lymphadenopathy, thyromegaly noted. Lungs: Bilaterally clear/diminished breath sounds with no crepitation or wheeze. Unlabored Cardiovascular: Heart is regular rhythm, S1S2, No extra-audible heart tones Abdomen: Abdomen is soft, nontender. Bowel sounds positive all four quadrants. Extremities: No clubbing, cyanosis or edema. Peripheral pulses palpable. No calf tenderness. Adequate peripheral circulation. Neurological: Following simple commands, moving all extremities. Weight Dosing Weight: 90.5 kg (09/20/23) Medications Medications (14) Active Scheduled: (5) cefTRIAXone IVP syringe 1 gram(s) 10 mL, IV Push (INT), qDay insulin lispro 100 units/mL Soln (3 mL) Give 0-5 units/dose, Subcutaneous, TIDAC leflunomide 10 mg tablet 10 mg 1 tab(s), Oral, qAM pantoprazole 40 mg EC tablet 40 mg 1 tab(s), Oral, qDay tamsulosin 0.4 mg Capsule 0.4 mg 1 cap(s), Oral, qDayPC Continuous: (1) Lactated Ringers 1,000 mL 1,000 mL, Intravenous, 75 mL/hr PRN: (8) acetaminophen 325 mg Tablet 650 mg 2 tab(s), Oral, q6hWA dextrose 50% Solution Disp syringe 50 mL 12.5 gram(s) 25 mL, IV Push, AsDirected melatonin 3 mg tablet 3 mg 1 tab(s), Oral, qHS melatonin 3 mg tablet 3 mg 1 tab(s), Oral, qHS morphine 2 mg/mL 1 mL syringe 2 mg 1 mL, IV Push, q3h morphine 4 mg/mL 1mL INJ 3 mg 0.75 mL, IV Push, q3h ondansetron 2 mg/ 1 mL 2 mL INJ 4 mg 2 mL, IV Push, q4h ondansetron 4 mg DIS tablet 4 mg 1 tab(s), Oral, q6h Lab Results 09/22 11:13 Hgb: 8.2 L Hct: 24.3 L 09/22 03:40 WBC: 5.8 Hgb: 6.7 C Hct: 19.9 L Platelet: 139 L Neutrophil %: 88.2 H Glucose Level: 169 H Sodium Level: 137 Potassium Level: 4.5 BUN: 32.0 H Creatinine Lvl (s): 1.58 H 09/21 03:46 WBC: 6.8 Hgb: 7.3 L Hct: 21.9 L Platelet: 161 Neutrophil %: 84.2 H Glucose Level: 127 H Sodium Level: 139 Potassium Level: 4.5 BUN: 33.0 H Creatinine Lvl (s): 2.04 H EKG No qualifying data available. Assessment/Plan 1. Anemia 2. Nephrolithiasis 3. Hydroureteronephrosis 4. A-fib 5. History of CAD 6. Type 2 diabetes 7. MIRYAM on CKD Hemoglobin 6.7, signs of bleeding. 8.2 after 1 unit packed red blood cells. CBC in the morning. Nephrolithiasis with hydroureteronephrosis status post stent placement. Preston catheter remains in place. Urology recommending to continue this until tomorrow. A-fib, treatment remain off anticoagulation per urology's recommendation. History of CAD, no chest pain. Type 2 diabetes, continue sliding scale insulin. MIRYAM on CKD, creatinine improving. BMP in the morning. UTI, culture positive for staph Lugdunensis. Noted to be pansensitive CODE STATUS: Full code discussed with patient at bedside, discussed with Dr. Ford Time Spent Total time spent reviewing labs, diagnostics, evaluating the patient, and medical decision makin minutes Digitally Signed by ERIKA HAWLEY on 09/22/2023 02:47 PM [id number] Urology Progress note Date of Service 09/22/2023 History of Present Illness Patient feeling well this morning. Catheter did become occluded with clot last night requiring handirrigation by nursing staff. Bring this morning. Hemoglobin drifting downwards into the 6 range andwill likely require transfusion Physical Exam Vitals and Measurements Weight Dosing Weight: 90.5 kg (09/20/23) Abdomen is soft no CVAT. Bladder soft not distended. Preston draining clear to very light pink-tingedurine with no clots. Lab Results 09/22 03:40 WBC: 5.8 Hgb: 6.7 C Hct: 19.9 L Platelet: 139 L Neutrophil %: 88.2 H Glucose Level: 169 H Sodium Level: 137 Potassium Level: 4.5 BUN: 32.0 H Creatinine Lvl (s): 1.58 H 09/21 03:46 WBC: 6.8 Hgb: 7.3 L Hct: 21.9 L Platelet: 161 Neutrophil %: 84.2 H Glucose Level: 127 H Sodium Level: 139 Potassium Level: 4.5 BUN: 33.0 H Creatinine Lvl (s): 2.04 H Assessment/Plan Acute on chronic kidney failure Atrial fibrillation CAD in [place] artery Hydronephrosis Nephrolithiasis Non-Insulin Dependent Diabetes Mellitus Pyelonephritis 1. History of prostate cancer high-grade multifocal recent score 7 and 8 presented with PSA of 10 status post radiation therapy completed 07/28 currently receiving Lupron to complete a 2-year postradiation course. On CT there are post radiation changes with hypodense parenchyma posterior prostate on CT which was originally calcified on imaging from 05/28. No clinical evidence of abscess. 2. Movement of a known left renal stone into the mid left ureter about 9 mm but quite dense with associated hydronephrosis and perinephric inflammatory changes present with left renal colic 3. Associated urinary tract infection with fevers, pyuria bacteriuria 4. Acute kidney injury with baseline creatinine level around 1.3 currently up to 2.2. This is secondary to dehydration and unilateral left renal obstruction improved post hydration and stent placement. See below 5. Anticoagulation with Eliquis for atrial fibrillation. Coincidentally patient did have a nosebleed and because of this has been off of Eliquis for 3 days. Will hold anticoagulation at this point 6. Status post emergent left ureteral stent placement which was difficult because of significant Jhooking of the distal ureter and impacted large 1 cm stone mid left ureter. Patient overall doing well. No fevers chills with cynically improved left-sided pain. Renal function improving. Patient did have clots last night requiring hand irrigation of the Preston catheter. He also is significantly anemic and is going to require transfusion today. He may have lost moderate amounts of blood after 3-day nosebleed. I think it is reasonable to keep him off of the Eliquis at this point until his hemoglobin is documented to be stable posttransfusion. He does not report any evidence of GI bleed. He understands thromboembolic risks. Will maintain Preston for now. May consider removing Preston catheter tomorrow and restarting anticoagulation. I gave him a dose of vancomycin last night because his urine cultures growing out staph species and will continue Rocephin and will await sensitivities to adjust Problem List/Past Medical History Ongoing 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 Chronic venous insufficiency Diabetes Elevated PSA Family history of prostate cancer GERD - Gastro-esophageal reflux disease H/O epistaxis Hernia, internal History of blood clots History of urinary retention Kidney stones Macular degeneration Nocturia Non-Insulin Dependent Diabetes Mellitus Renal insufficiency, mild Synovial cyst Ureterovesical junction obstruction Historical Diastasis recti History of UTI Procedure/Surgical History Transperineal biopsy of prostate using magnetic resonance imaging and ultrasonography fusion guidance: 02/01/23 Heart valve replacement - graft: 2012 CABG (Coronary artery bypass grafting) planned: 09/17/12 Colonoscopy Esophagogastroduodenoscopy Carpal tunnel release Hiatus hernia repair Medications Inpatient acetaminophen, 650 mg= 2 tab(s), Oral, q6hWA, PRN cefTRIAXone, 1 gram(s)= 10 mL, IV Push (INT), qDay Dextrose 50% IV Push, 12.5 gram(s)= 25 mL, IV Push, AsDirected, PRN HumaLOG 100 units/mL subcutaneous solution, Give 0-5 units/dose, Subcutaneous, TIDAC leflunomide, 10 mg= 1 tab(s), Oral, qAM LR 1,000 mL, 1000 mL, Intravenous melatonin, 3 mg= 1 tab(s), Oral, qHS, PRN melatonin, 3 mg= 1 tab(s), Oral, qHS, PRN morphine, 2 mg= 1 mL, IV Push, q3h, PRN morphine, 3 mg= 0.75 mL, IV Push, q3h, PRN NS 500 mL 500 mL, 500 mL, Intravenous pantoprazole, 40 mg= 1 tab(s), Oral, qDay tamsulosin, 0.4 mg= 1 cap(s), Oral, qDayPC Zofran, 4 mg= 2 mL, IV Push, q4h, PRN Zofran ODT, 4 mg= 1 tab(s), Oral, q6h, PRN Home Amaryl 1 mg oral tablet, 1 mg= 1 tab(s), Oral, BID aspirin 81 mg oral tablet, chewable, 81 mg= 1 tab(s), Oral, qAM Eliquis 2.5 mg oral tablet, 2.5 mg= 1 tab(s), Oral, BID, Still taking, not as prescribed: Patient reported stopping medication on 09/17 due to nosebleed. Janumet 50 / 1000 mg oral tablet, 1 tab(s), Oral, BID leflunomide 10 mg oral tablet, 10 mg= 1 tab(s), Oral, qAM lisinopril 40 mg oral tablet, 40 mg= 1 tab(s), Oral, qHS Multivitamin, 1 tab(s), Oral, Daily pantoprazole 40 mg oral enteric coated tablet, 40 mg= 1 tab(s), Oral, qDay Tylenol PM Extra Strength oral tablet, 2 tab(s), Oral, qHS, PRN Vitamin D3 50 mcg (2000 intl units) oral capsule, 50 mcg= 1 cap(s), Oral, qDay vitamin E 400 intl units oral capsule, 400 International_Unit= 1 cap(s), Oral, Daily Allergies NKA Social History Smoking Status - 04/15/2018 Never smoker Alcohol - Denies Alcohol Use, 09/18/2017 Use: Never., 03/28/2023 Employment/School Status: Retired. Previous employment/school: [employer] 03/28/2023 Home/Environment Marital Status: ., 03/28/2023 Substance Abuse - Denies Substance Abuse, 09/18/2017 Use: Never., 03/28/2023 Tobacco Nicotine Use: Never (less than 100 in lifetime)., 03/16/2023 Family History Arthritis 28-MAY-2014 16:49:04<$>: Son. Asthma: Brother. Bladder cancer: Negative: Mother, Father, Brother, Son and Grandparent. Colon cancer: Negative: Mother, Father, Sister, Brother, Daughter, Son, Son, Son, Son and Grandparent. Diabetes mellitus: Mother. Heart attack: Son. Heart disease: Mother and Father. Kidney stone: Negative: Mother, Father, Brother, Son and Grandparent. Prostate cancer: Negative: Father and Grandparent. Prostate cancer 03-Mar-2016 02:35:22<$>: Brother. Renal cancer: Negative: Mother, Father, Brother, Son and Grandparent. Stroke: Mother. Immunizations SARS-CoV-2 (COVID-19) mRNA-1273 vaccine: 0.25 unknown unit (07/28/21) SARS-CoV-2 (COVID-19) mRNA-1273 vaccine: 0.5 unknown unit (10/30/20) SARS-CoV-2 (COVID-19) mRNA-1273 vaccine: 0.5 unknown unit (10/02/20) tetanus/diphth/pertuss (Tdap) adult/adol: 0.5 unknown unit (07/20/18) Digitally Signed by EZEKIEL QUIROS MD on 09/22/2023 10:01 AM [id number] Progress note Preliminary urine culture growing out staphylococcal lugdunensis. Given tendency for resistance to other antibiotics will give 1 dose of vancomycin IV until sensitivities back. Digitally Signed by EZEKIEL QUIROS MD on 09/21/2023 07:07 PM [id number] Note Date of Service 09.21.23 Chief Complaint nephrolithiasis Subjective This is an 88-year-old male with a past medical history of A-fib, CAD, diabetes, hypertension, prostate cancer who presented to the hospital with abdominal pain. Patient had generalized discomfort and malaise. Has a history of kidney stones and felt that this was similar to his previous episodes. Patient also had a nosebleed for quite a while a few days ago so took himself off of Eliquis. Urinalysis was positive on admission, had acute kidney injury with creatinine elevated from previous baseline of 1.3. CT of the abdomen showed obstructing stone in the left mid ureter with moderate to severe hydroureteronephrosis, stranding also present. Today patient underwent stent placement. Urology rec ommends keeping him off of anticoagulation at least another 24 hours. Patient is seen sitting on the side of the bed, reports he is feeling much better at this time. Still has some mild left lower quadrant abdominal pain but overall feeling much better. Tolerating liquids. Denies chest pain, shortness of breath, nausea or vomiting. Blood pressure running mildly low, hemoglobin slightly low, MIRYAM is improving. Objective Vitals and Measurements T: 36.5 C (Oral) TMIN: 35.21 C TMAX: 37.9 C (Oral) HR: 63 RR: 16 BP: 95/56 SpO2: 100% HT: 180.3 cm WT: 90.5 kg BMI: 27.84 Intake and Output 7AM Yesterday to 7AM Today Intake and Output (Last 24 hours) Intake Administration Information 2685.00 Oral Intake 100.00 Output Urine Voided 400.00 Urinary Catheter Output: 200.00 Stool Count 0.00 Total Summary Total Intake 2785.00 Total Output 600.00 Fluid Balance 2185.00 Physical Exam Weight Dosing Weight: 90.5 kg (01/16/24) Vitals Signs(Last 24 hrs)__ Last Charted Minimum Maximum Temp 36.5(SEP 21 14:37) 36.5(SEP 21 14:37) H 37.9(SEP 20 23:22) Heart Rate 77(SEP 21 11:41) 61(SEP 21 10:05) 89(SEP 20 23:22) SBP 95(SEP 21 14:37) 75(SEP 21 09:52) 134(SEP 20 23:22) DBP L 56(SEP 21 14:37) C 40(SEP 21 07:53) 77(SEP 21 10:16) Physical Exam General: No acute distress. Alert and Appropriate Skin: No rash. Warm, Dry, Intact Lungs: Bilaterally clear breath sounds with no crepitation or wheeze. Cardiovascular: Heart is regular rhythm, S1S2, No extra-audible heart tones Abdomen: Abdomen is soft, nontender. Bowel sounds positive all four quadrants. No hepatosplenomegaly noted. Extremities: No clubbing, cyanosis or edema. Neurological: The patient is awake, oriented to person, place and time. Following simple commands, moving all extremities. DVT PROPHYLAXIS- Medications Medications (13) Active Scheduled: (4) cefTRIAXone IVP syringe 1 gram(s) 10 mL, IV Push (INT), qDay insulin lispro 100 units/mL Soln (3 mL) Give 0-5 units/dose, Subcutaneous, TIDAC pantoprazole 40 mg EC tablet 40 mg 1 tab(s), Oral, qDay tamsulosin 0.4 mg Capsule 0.4 mg 1 cap(s), Oral, qDayPC Continuous: (1) Lactated Ringers 1,000 mL 1,000 mL, Intravenous, 75 mL/hr PRN: (8) acetaminophen 325 mg Tablet 650 mg 2 tab(s), Oral, q6hWA dextrose 50% Solution Disp syringe 50 mL 12.5 gram(s) 25 mL, IV Push, AsDirected melatonin 3 mg tablet 3 mg 1 tab(s), Oral, qHS melatonin 3 mg tablet 3 mg 1 tab(s), Oral, qHS morphine 2 mg/mL 1 mL syringe 2 mg 1 mL, IV Push, q3h morphine 4 mg/mL 1mL INJ 3 mg 0.75 mL, IV Push, q3h ondansetron 2 mg/ 1 mL 2 mL INJ 4 mg 2 mL, IV Push, q4h ondansetron 4 mg DIS tablet 4 mg 1 tab(s), Oral, q6h Lab Results 09/21 03:46 WBC: 6.8 Hgb: 7.3 L Hct: 21.9 L Platelet: 161 Neutrophil %: 84.2 H Glucose Level: 127 H Sodium Level: 139 Potassium Level: 4.5 BUN: 33.0 H Creatinine Lvl (s): 2.04 H EKG No qualifying data available. Assessment/Plan 1. Nephrolithiasis 2. Hydronephrosis 3. Pyelonephritis 4. Atrial fibrillation 5. CAD in [place] artery 6. Non-Insulin Dependent Diabetes Mellitus 7. Acute on chronic kidney failure Status post stent placement, will need outpatient urology follow-up, continue with Rocephin, await urine culture results. Hold Eliquis at least another 24 hours per urology recommendations, heart rate is stable. History of diabetes, home medications are on hold, diabetic diet, blood sugars ACHS with sliding scale coverage. MIRYAM improving, baseline creatinine 1.3, repeat labs tomorrow. Hold lisinopril. Probable discharge home tomorrow if vitals and labs are improving and stable. Leflunomide was placed on hold on admission due to concern for LFTs, discussed with the pharmacist today, LFTs are normal, this can be resumed. split.shared visit with Dr. Amee Martinez updated his son over the phone Digitally Signed by J LUIS KUMAR on 09/21/2023 04:13 PM [facility] [id number] Evaluation + Plan noteExtracted from: Title:History and Physical Author:ANTOLIN SANCHEZ ON Date:09/21/23 Obstructing left-sided nephr olithiasis. 0.9 cm stone in the left mid ureter. Correlates with lower abdominal pain. He has a history of nephrolithiasis in the past. Transferred here for evaluation by urology. -Urology consult -Tamsulosin -IV fluids -N.p.o. -Pain control Complicated UTI. Patient with borderline elevated oral temperature, episode of tachycardia. He has 3+ bacteria, loaded WBCs on UA. -Ceftriaxone 1 g daily -Follow-up urine culture MIRYAM on CKD. Creatinine 2.28 from 1.31 on 09/06/2023. -Continue IV fluids -Avoid NSAIDs -Pause DELVIN/ARB -Recheck creatinine Atrial fibrillation. Patient is on Eliquis. This should be resumed after evaluation by urology. Rate is currently controlled. CAD. Patient is on ASA. Also should be resumed after procedure. DM2 on glimepiride, metformin and Sitagliptin. Will pause patient's home diabetic agents and place on sliding scale insulin. GERD. Chronic. Continue PPI. HTN. Patient's creatinine is significantly elevated. Will place on IV fluids and recheck. Prostate cancer. Noted to have necrotic mass on CT abdomen pelvis. Patient is on leflunomide. Noted that there is a contraindication with liver disease. LFTs will be checked. Resume leflunomide if no abnormality. Medications were not verified by pharmacy at the time of this dictation. Reconciliation to be completed once medications are verified; will address additional chronic medical problems at that time. DVT prophylaxis: SCDs Note dictated using voice recognition software and may contain typographical errors. Future Appointments Appointment Date:10/14/2023 10:10:00 AM Scheduled Provider:EZEKIEL BURRIS MD Location:UROLOGY Appointment Type:URO OV Appointment Date:10/18/2023 10:30:00 AM Scheduled Provider: Location:INF Appointment Type:INF Labwork Appointment Date:10/18/2023 11:15:00 AM Scheduled Provider:CLOVER KATZ MD Location:HEM ONC Appointment Type:HEM ONC OV Follow Up w/Active Treatment Appointment Date:10/18/2023 11:45:00 AM Scheduled Provider: Location:INF Appointment Type:INF Chemo: Infusion Injection 15 min Appointment Date:11/03/2023 10:00:00 AM Scheduled Provider:CHARMAINE LO Location:[facility] Appointment Type:CV OV Future Scheduled Tests Laboratory* Basic Metabolic Panel 12/01/22 * Prostate Specific Antigen 10/08/23 * Prostate Specific Antigen 10/17/23 * Prostate Specific Antigen 06/28/23 * Prostate Specific Antigen 05/19/23 * Complete Blood Count 12/01/22 * Complete Blood Count 10/17/23 * Complete Metabolic Panel 10/17/23 Radiology* NM Myocardial Spect Rest/Stress 09/21/23 [facility] 01-17-2024 Anesthesiology Consult note Patient: JAYLEN GALAVIZ Age: 88 years Sex: Male : 1935 Associated Diagnoses: None Author: HAYDEE MARKHAM DO Postoperative Information Post Operative Info: Post op day: Post Anesthesia Care Unit. Patient location: PACU. Assessment Postanesthesia assessment Vitals. Mental status: at preoperative baseline. Respiratory function: respirations are non-labored, Stable. Respiratory support: none. CV function: Stable. Cardiovascular support: none. Pain: Satisfactory. Nausea status: Satisfactory. Postoperative hydration status: within normal limits. Notes: Patient is sufficiently recovered from anesthesia to participate in the evaluation. No follow-up care needed. No complications post-anesthesia.. Digitally Signed by HAYDEE MARKHAM DO on 09/21/2023 01:10 PM [id number] Note ORIGINAL HISTORY: Pain COMPARISON: No FLUOROSCOPY TIME: 0.6 minutes FLUOROSCOPY IMAGES: 43 IMPRESSION: Fluoroscopy provided to the Urology service. Interpreted by: Mohan Parra MD Preliminary Report By: Mohan Parra MD Electronically signed By Mohan Parra MD Dictated Date: 09/21/2023 11:00:18 AM Prelim Date: 09/21/2023 11:00:59 AM Sign Date: 09/21/2023 11:00:59 AM Ordering Provider: [facility]01-17-2024 Anesthesiology Consult note Patient: AJYLEN GALAVIZ Age: 88 years Sex: Male : 1935 Associated Diagnoses: None Author: HAYDEE MARKHAM DO Preoperative Information Time of last food or liquid consumption: 09/21/2023 00:00:00 Anesthesia history Patient's history: negative. Family's history: negative. History of Present Illness Please refer to most recent H and P / daily progress note / consultation note for further details A-fib, CAD, DM2, HTN, prostate cancer GERD MIRYAM concern for pyelenphriitis Health Status Allergies: Allergic Reactions (Selected) NKA, Allergies (1) ActiveReaction NKANone Documented Current medications: (Selected) Inpatient Medications Ordered Dextrose 50% IV Push: 12.5 gram(s), 25 mL, IV Push, AsDirected, PRN: Hypoglycemia HumaLOG 100 units/mL subcutaneous solution: Give 0-5 units/dose, Subcutaneous, TIDAC LR 1,000 mL: 75 mL/hr, Intravenous Zofran ODT: 4 mg, 1 tab(s), Oral, q6h, PRN: Nausea/Vomiting Zofran: 4 mg, 2 mL, IV Push, q4h, PRN: Nausea/Vomiting acetaminophen: 650 mg, 2 tab(s), Oral, q6hWA, PRN: Pain, scale 1-10 cefTRIAXone: 1 gram(s), 10 mL, 120 mL/hr, IV Push (INT), qDay melatonin: 3 mg, 1 tab(s), Oral, qHS, PRN: Sleep melatonin: 3 mg, 1 tab(s), Oral, qHS, PRN: Sleep morphine: 2 mg, 1 mL, IV Push, q3h, PRN: Pain, scale 4-6 morphine: 3 mg, 0.75 mL, IV Push, q3h, PRN: Pain, scale 7-10 pantoprazole: 40 mg, 1 tab(s), Oral, qDay tamsulosin: 0.4 mg, 1 cap(s), Oral, qDayPC Future leuprolide 45 mg/6 months subcutaneous injection, extended release: 45 mg, 1 syringe, Subcutaneous Hormonal (INF), Once, Weeks 25 Prescriptions Prescribed Eliquis 2.5 mg oral tablet: 2.5 mg, 1 tab(s), Oral, BID, 60 tab(s), 0 Refill(s) cephalexin 500 mg oral capsule: 500 mg, 1 cap(s), Oral, q12h, for 7 day(s), 14 cap(s), 0 Refill(s) Documented Medications Documented Amaryl 1 mg oral tablet: 1 mg, 1 tab(s), Oral, BID, 30 tab(s), 0 Refill(s) Janumet 50 / 1000 mg oral tablet: 1 tab(s), Oral, BID, 0 Refill(s) Multivitamin: 1 tab(s), Oral, Daily, 0 Refill(s) Tylenol PM Extra Strength oral tablet: 2 tab(s), Oral, qHS, PRN: as needed for sleep, 20 tab(s), 0 Refill(s) Vitamin D3 50 mcg (2000 intl units) oral capsule: 50 mcg, 1 cap(s), Oral, qDay, 60 cap(s), 0 Refill(s) aspirin 81 mg oral tablet, chewable: 81 mg, 1 tab(s), Oral, qAM, 30 tab(s), 0 Refill(s) leflunomide 10 mg oral tablet: 10 mg, 1 tab(s), Oral, qAM, 0 Refill(s) lisinopril 40 mg oral tablet: 40 mg, 1 tab(s), Oral, qHS, 30 tab(s), 0 Refill(s) pantoprazole 40 mg oral enteric coated tablet: 40 mg, 1 tab(s), Oral, qDay, 30 tab(s), 0 Refill(s) vitamin E 400 intl units oral capsule: 400 International_Unit, 1 cap(s), Oral, Daily, 0 Refill(s), Medications (13) Active Scheduled: (4) cefTRIAXone IVP syringe 1 gram(s) 10 mL, IV Push (INT), qDay insulin lispro 100 units/mL Soln (3 mL) Give 0-5 units/dose, Subcutaneous, TIDAC pantoprazole 40 mg EC tablet 40 mg 1 tab(s), Oral, qDay tamsulosin 0.4 mg Capsule 0.4 mg 1 cap(s), Oral, qDayPC Continuous: (1) Lactated Ringers 1,000 mL 1,000 mL, Intravenous, 75 mL/hr PRN: (8) acetaminophen 325 mg Tablet 650 mg 2 tab(s), Oral, q6hWA dextrose 50% Solution Disp syringe 50 mL 12.5 gram(s) 25 mL, IV Push, AsDirected melatonin 3 mg tablet 3 mg 1 tab(s), Oral, qHS melatonin 3 mg tablet 3 mg 1 tab(s), Oral, qHS morphine 2 mg/mL 1 mL syringe 2 mg 1 mL, IV Push, q3h morphine 4 mg/mL 1mL INJ 3 mg 0.75 mL, IV Push, q3h ondansetron 2 mg/ 1 mL 2 mL INJ 4 mg 2 mL, IV Push, q4h ondansetron 4 mg DIS tablet 4 mg 1 tab(s), Oral, q6h Problem list: Medical (Selected) CAD in [place] artery / SNOMED CT 61555902 / Confirmed Macular degeneration / SNOMED CT 2884995460 / Confirmed Diabetes / SNOMED CT 427091902 / Confirmed Elevated PSA / SNOMED CT 5965587024 / Confirmed Family history of prostate cancer / SNOMED CT 3726452583 / Confirmed GERD - Gastro-esophageal reflux disease / SNOMED CT 7177553127 / Confirmed History of blood clots / SNOMED CT 927226803 / Confirmed History of urinary retention / SNOMED CT 223089108 / Confirmed Hernia, internal / SNOMED CT 38566724 / Confirmed Kidney stones / SNOMED CT 467813234 / Confirmed Nocturia / SNOMED CT 295780220 / Confirmed BPH associated with nocturia / SNOMED CT 0074301831 / Confirmed Ureterovesical junction obstruction / SNOMED CT 5636780990 / Confirmed Chronic venous insufficiency / SNOMED CT 64511018 / Confirmed Renal insufficiency, mild / SNOMED CT 9977193784 / Confirmed Synovial cyst / SNOMED CT 172437765 / Confirmed Non-Insulin Dependent Diabetes Mellitus / SNOMED CT 859076718 / Confirmed, Active Problems (41) Age-related macular degeneration Anxiety Arthritis Borderline low oxygen saturation level 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 Chronic venous insufficiency Colon, diverticulosis CPAP (continuous positive airway pressure) dependence Diabetes Difficulty swallowing Dupuytren contracture Elevated PSA Family history of prostate cancer Fatty liver Fragile skin GERD - Gastro-esophageal reflux disease H/O polymyalgia rheumatica Hernia, internal History of aortic valve replacement with porcine valve History of blood clots History of coronary artery bypass graft x 2 History of kidney stones History of urinary retention Hypercholesterolemia Hypertension Kidney stones Low iron Macular degeneration Nocturia Non-Insulin Dependent Diabetes Mellitus On home oxygen therapy Presence of dental prosthetic device Prostate cancer Renal insufficiency, mild Sleep apnea Synovial cyst Ureterovesical junction obstruction Urinary incontinence Urinary urgency WBC decreased Histories Past Medical History: Active Hernia, internal (33410259) Diabetes (212411707) History of urinary retention (380319513) Comments: 01/19/2023 EDT 9:06 EDT - LAVERN Koch urinary retention Resolved Diastasis recti (390672788): Resolved. History of UTI (9433533952): Resolved. Comments: - 09/2017 - [facility] Family History: Diabetes mellitus Mother Asthma Brother Heart disease Mother Father Stroke Mother Heart attack Son () Arthritis 28-MAY-2014 16:49:04<$> Son Prostate cancer 03-Mar-2016 02:35:22<$> Brother Procedure history: Transperineal biopsy of prostate using magnetic resonance imaging and ultrasonography fusion guidance ([id number]) on 02/01/2023 at 87 Years. Heart valve replacement - graft (362222572) in 2012 at 78 Years. CABG (Coronary artery bypass grafting) planned (8010414178) on 09/17/2012 at 77 Years. Carpal tunnel release (916937258). Comments: 01/19/2023 9:31 LAVERN Kennedy right Hiatus hernia repair (035552416). Colonoscopy (788487687). Dupuytren contracture (4432037562). Comments: 01/19/2023 9:32 LAVERN Kennedy right Esophagogastroduodenoscopy (987906882). Social History Social & Psychosocial Habits Alcohol 4Risk Assessment: Denies Alcohol Use 09/20/2023 Use: Never Employment/School 08/05/2023 Status: Retired Previous employment/school: [employer] Substance Abuse 4Risk Assessment: Denies Substance Abuse 09/20/2023 Use: Never Tobacco 09/20/2023 Tobacco Use: Never (less than 100 in l Home/Environment 09/20/2023 Marital Status of Patient if Patient Independent Adult: . Physical Examination Vital Signs 09/21/2023 7:53 EST Temperature Oral 36.8 DegC Peripheral Pulse Rate 93 bpm Respiratory Rate 17 br/min Systolic Blood Pressure Non-Invasive 88 mmHg LOW Diastolic Blood Pressure Non-Invasive 40 mmHg Blood Pressure Method Automatic Reason For Taking VItal Signs Routine 09/20/2023 23:22 EST Temperature Oral 37.9 DegC HI Heart Rate Monitored 89 bpm Respiratory Rate 16 br/min Systolic Blood Pressure Non-Invasive 134 mmHg Diastolic Blood Pressure Non-Invasive 74 mmHg Reason For Taking VItal Signs Admission 09/20/2023 22:14 EST Peripheral Pulse Rate 88 bpm Respiratory Rate 20 br/min Systolic Blood Pressure Non-Invasive 133 mmHg Diastolic Blood Pressure Non-Invasive 69 mmHg 09/20/2023 20:53 EST Peripheral Pulse Rate 88 bpm Respiratory Rate 20 br/min Systolic Blood Pressure 133 mmHg Diastolic Blood Pressure 69 mmHg 09/20/2023 17:06 EST Temperature Oral 37.7 DegC HI Peripheral Pulse Rate 97 bpm Respiratory Rate 20 br/min Systolic Blood Pressure Non-Invasive 136 mmHg Diastolic Blood Pressure Non-Invasive 79 mmHg 09/20/2023 15:23 EST Temperature Oral 37.4 DegC HI Peripheral Pulse Rate 105 bpm HI Respiratory Rate 20 br/min Systolic Blood Pressure Non-Invasive 182 mmHg HI Diastolic Blood Pressure Non-Invasive 88 mmHg 09/20/2023 7:53 EST Temperature Oral 36.5 DegC Peripheral Pulse Rate 82 bpm Respiratory Rate 18 br/min Systolic Blood Pressure Non-Invasive 113 mmHg Diastolic Blood Pressure Non-Invasive 68 mmHg Vital Signs(last 24 hrs) Last Charted Temp Oral36.8 DegC (SEP 21 07:53) Heart Rate Fuvkyxbeh58 bpm (SEP 20 23:22) SBPL 88mmHg (SEP 21 07:53) DBPC 40mmHg (SEP 21 07:53) BMI27.84 (SEP 20 23:28) Measurements from flowsheet : Measurements 09/20/2023 23:28 EST Height 180.3 cm Height in inches 71 inch(es) Admission Weight 90.5 kg Weight Lbs 199.1 lb [place] Body Weight 75.26 kg BSA Admission 2.11 Body Mass Index 27.84 kg/m2 09/20/2023 15:23 EST Height 180 cm Admission Weight 95.5 kg [place] Body Weight 74.99 kg 09/20/2023 7:53 EST Height 180.3 cm Admission Weight 95.5 kg [place] Body Weight 75.26 kg Pain assessment: Pain Assessment 09/21/2023 7:40 EST Primary Pain Location Abdomen Primary Pain Intensity 4 Primary Pain Non-Pharma Intervention Repositioning Primary Pain Nonverbal Response Nods No Pain Scale Type 0-10 Pain scale 09/20/2023 23:22 EST Primary Pain Intensity 1 Primary Pain Nonverbal Response Nods No Pain Scale Type 0-10 Pain scale 09/20/2023 20:53 EST Pain Scale Assessment 0-10 Pain scale Primary Pain Intensity 0 Pain Symptoms No 09/20/2023 17:06 EST Primary Pain Intensity 4 Pain Scale Type 0-10 Pain scale 09/20/2023 15:40 EST Primary Pain Intensity 8 09/20/2023 15:25 EST Primary Pain Location Abdomen Abdominal Pain Location LLQ, RLQ Primary Pain Laterality Bilateral Primary Pain Intensity 8 Primary Pain Time Pattern acute Primary Pain Onset Sudden Primary Pain Quality Sharp Primary Pain Nonverbal Response Nods Yes Pain Scale Type 0-10 Pain scale 09/20/2023 9:35 EST Pain Scale Assessment 0-10 Pain scale Primary Pain Intensity 5 Pain Symptoms Yes 09/20/2023 7:53 EST Primary Pain Location Abdomen Abdominal Pain Location LLQ, RLQ Primary Pain Intensity 5 Primary Pain Quality Tightness Pain Scale Type 0-10 Pain scale . General: Alert and oriented. Airway: Mallampati classification: II (soft palate, fauces, uvula visible). Dentition Evaluation: Missing teeth. Respiratory: Respirations are non-labored. Neurologic: Alert, Oriented. Review / Management Results review: Labs (Last four charted values) WBC 6.8(SEP 21) Hgb L 7.3(SEP 21) Hct L 21.9(SEP 21) Plt 161(SEP 21) Na 139(SEP 21) K 4.5(SEP 21) CO2 24(SEP 21) Cl 108(SEP 21) Cr H 2.04(SEP 21) BUN H 33.0(SEP 21) Glucose H 127(SEP 21) Ca L 8.0(SEP 21) , Lab results 09/21/2023 9:16 EST Accompanied By Staff Transporter Out of Room Sent to Current Location Surgery Transport via Bed 09/21/2023 8:44 EST Urology Consultation Urology consultation note History of Present Illness Documentation History of Present Illness Documentation Impression and Plan Documentation Impression and Plan Documentation Physical Examination Documentation Physical Examination Documentation 09/21/2023 8:34 EST Blood Glucose, Capillary 121 mg/dL HI 09/21/2023 7:53 EST Temperature Oral 36.8 DegC Peripheral Pulse Rate 93 bpm Respiratory Rate 17 br/min Systolic Blood Pressure Non-Invasive 88 mmHg LOW Diastolic Blood Pressure Non-Invasive 40 mmHg Blood Pressure Method Automatic Reason For Taking VItal Signs Routine Oxygen Therapy Room air Oxygen Saturation 97 % Positioning Repositions self Standard Safety ID band on Demonstrates Correct Call Light Use Yes 09/21/2023 7:40 EST Primary Pain Location Abdomen Primary Pain Intensity 4 Primary Pain Non-Pharma Intervention Repositioning Primary Pain Nonverbal Response Nods No Pain Scale Type 0-10 Pain scale Heart Rhythm Irregular Oxygen Therapy Room air Positioning Repositions self Activity Status ADL Awake Sequential Compression Device bilateral knee high applied/on Nurse Safety Checks q2hrs Performed 7am-7pm Standard Safety Safety level maintained High Risk Safety Room check performed Demonstrates Correct Call Light Use Yes 09/21/2023 7:38 EST tamsulosin 0.4 mg mg 09/21/2023 7:00 EST Oral Intake 0 mL 09/21/2023 6:59 EST Lactated Ringers Injection 335 mL mL 09/21/2023 6:35 EST Positioning Repositions self, Encouraged/reinforced importance of turning Standard Safety ID band on, Call device within reach, Bed in low position, Wheels locked, Upper/Half-Length side-rails up, Phone within reach, Safety level maintained Demonstrates Correct Call Light Use Yes 09/21/2023 5:17 EST Mechanical VTE Prophylaxis Education Not Done: Task Duplication (Not Done) Sequential Compression Device Not Done: Task Duplication (Not Done) Sequential Compression Device Form Not Done (Not Done) 09/21/2023 5:14 EST Standard Safety ID band on, Call device within reach, Bed in low position, Wheels locked, Upper/Half-Length side-rails up, Phone within reach, Safety level maintained Demonstrates Correct Call Light Use Yes 09/21/2023 5:04 EST pantoprazole 40 mg mg 09/21/2023 3:46 EST WBC 6.8 10^3/mcL RBC 2.38 10^6/mcL LOW Hgb 7.3 G/dL LOW Hct 21.9 % LOW MCV 92.0 fL MCH 30.7 pg MCHC 33.3 G/dL RDW 15.0 % Platelet 161 10^3/mcL MPV 7.2 fL Neutrophil % 84.2 % HI Lymphocyte % 3.5 % LOW Monocyte % 11.3 % Eosinophil % 0.6 % Basophil % 0.4 % Neutrophil, Absolute 5.7 10^3/mcL Lymphocyte, Absolute 0.2 10^3/mcL LOW Monocyte, Absolute 0.8 10^3/mcL Eosinophil, Absolute 0.0 10^3/mcL Basophil, Absolute 0.0 10^3/mcL Glucose Level 127 mg/dL HI Sodium Level 139 mEq/L Potassium Level 4.5 mEq/L Chloride 108 mEq/L CO2 24 mEq/L Electrolyte Balance 7.0 mEq/L BUN 33.0 mg/dL HI Creatinine Lvl (s) 2.04 mg/dL HI BUN/Creatinine Ratio 16.2 ratio Calcium Lvl 8.0 mg/dL LOW Total Protein 5.4 G/dL LOW Albumin Level 2.5 G/dL LOW Globulin 2.9 G/dL A/G Ratio 0.9 ratio Bili Total 0.40 mg/dL Bili Direct 0.1 mg/dL Bili Indirect 0.3 mg/dL Alk Phos 49 U/L AST/SGOT 22 U/L ALT/SGPT 11 U/L LOW GFR Non- 31 ml/min/1.73sqm NA GFR 38 ml/min/1.73sqm NA Creatinine Clearance Calc 27.67 mL/min 09/21/2023 3:31 EST RN Coordination of Care 3am-7am 09/21/2023 3:00 EST Positioning Repositions self, Encouraged/reinforced importance of turning Sequential Compression Device bilateral knee high applied/on Nurse Safety Checks q2hrs Performed 3am-7am Standard Safety ID band on, Call device within reach, Bed in low position, Wheels locked, Upper/Half-Length side-rails up, Phone within reach, Safety level maintained Demonstrates Correct Call Light Use Yes 09/21/2023 2:32 EST Lactated Ringers Injection Begin Bag 1,000 mL mL 09/21/2023 2:01 EST Mechanical VTE Prophylaxis Education Not Done: Not Appropriate at this Time (NotDone) Sequential Compression Device Not Done: Not Appropriate at this Time (Not Done) Sequential Compression Device Form Not Done (Not Done) 09/21/2023 1:28 EST Standard Safety ID band on, Call device within reach, Bed in low position, Wheels locked, Upper/Half-Length side-rails up, Phone within reach, Safety level maintained Demonstrates Correct Call Light Use Yes 09/21/2023 1:06 EST Notify date/time 09/21/2023 1:06 Provider Notified EZEKIEL QUIROS MD Notification Method Answering service Information Communicated Consult 09/21/2023 1:00 EST Mechanical VTE Prophylaxis Education Not Done: Not Appropriate at this Time (NotDone) Sequential Compression Device Not Done: Not Appropriate at this Time (Not Done) Sequential Compression Device Form Not Done (Not Done) 09/21/2023 0:57 EST History and Physical History and Physical 09/21/2023 0:40 EST Sensory Perception Master Slightly limited Moisture Master Occasionally moist Activity Master Walks frequently Mobility Master No limitations Nutrition Master Adequate Friction and Shear Master No apparent problem Master Score 20 Hospital Acquired Pressure Injury Risk None/minimal risk (score 19-23) Shaver Screen Admission History of Fall in Last 3 Months Shaver No Presence of Secondary Diagnosis Shaver No Use of Ambulatory Aid Shaver None, bedrest, wheelchair, nurse IV/PRN Adapter Fall Risk Shaver Yes Gait Weak or Impaired Fall Risk Shaver Normal, bedrest, immobile Mental Status Fall Risk Shaver Oriented to own ability Shaver Fall Risk Score 20 Violence Risk Confused No Violence Risk Irritable No Violence Risk Boisterous No Violence Risk Verbal Threats No Violence Risk Physical Threats No Violence Risk Attacking Objects No Violence Risk Predictor Score 0 09/21/2023 0:36 EST Skin Assessment Verification Admission Individuals Taught Patient Learning Readiness Willing to learn Barriers to Learning None evident Teaching Method Explanation Preferred Spoken Language [place] Preferred Written Language [place] Able To Drink Order Detail Yes Able To Sign Consents Order Detail Yes Code Status Order Detail Full code IV Order Detail Yes Dialysis Schedule Order Detail N/A Has Diabetes Order Detail Yes Isolation Precautions Order Detail None Nurse Collect Order Detail 0 Oxygen Order Detail No Order Detail N/A Prior Valve Replacement Order Detail No Transport Mode Order Detail Patient bed Material Mixer Details Form Material Mixer Details Form 09/21/2023 0:35 EST Influenza Vaccine Need Previously immunized this season (Jun-November) Influenza Vaccine Assessment Influenza Vaccine Assessment 09/20/2023 23:50 EST Admission Note-Nursing Medication History 09/20/2023 23:29 EST Notify date/time 09/20/2023 23:29 Provider Notified FUAD PIRES Notification Method Pager Information Communicated Patient arrival 09/20/2023 23:28 EST Designated Person #1 We May Share PHI Designated Person #1 We May Share PHI Designated Person #1 Relationship Spouse Designated Person #2 We May Share PHI donna galaviz [phone] Designated Person #2 Relationship Son Additional Designated Person Share PHI bill ibarra, friend [phone] Privacy Restrictions Requested None Height 180.3 cm Height in inches 71 inch(es) Admission Weight 90.5 kg Weight Lbs 199.1 lb [place]o Body Weight 75.26 kg BSA Admission 2.11 Body Mass Index 27.84 kg/m2 Patient Type Inpatient Thrombosis Risk Factors (3) History of blood clots (DVT/PE/Thrombosis), (3) Family history of bloodclots (DVT/PE/Thrombosis), (3) Age over 75 years old Thrombosis Risk Factor Add'l Assessment NA Thrombosis Risk Score 9 Status N/A Do You Wish/Go to Sleep/Never Wake Up No Thoughts of Harming Others - History No Thoughts of Suicide - History No Hospital Clergy to Visit Patient Verbalizes No Spiritual Needs Sensory Deficits None Advanced Directives No - refuses information Infectious Disease Symptoms Patient states no symptoms Infectious Disease Recent Exposure No Alcohol and Drug Use No Employee of Institutional Living No Health Care Employee No History of Exposure to TB No History of Positive Chest X-Ray for TB No History of Positive TB Skin Test No Homeless No Known Immunosuppression No Recent Immigrant No Resident of Institutional Living No Bloody Sputum No Fatigue No Fever No Loss of Appetite No Night Sweats No Persistent Cough > 3 Weeks No Weight Loss No Barriers to Learning None evident Teaching Method Explanation Preferred Spoken Language [place] Preferred Written Language [place] Teaching Evaluation Verbalizes/Nonverbally indicates understanding Safety Brochure Information Reviewed Yes Grzegorz Bates Video Viewed Yes Information Given by Patient Patient's Current Physicians Patient's Current Physicians Belongings At Bedside Cell phone, Dentures, lower, Dentures, upper, Jacket, Pants, Shirt, Shoes, Socks, Undergarments, Wallet Discharge To, Anticipated Home independently Prev Test Positive/Diagnosis w/COVID-19 No Current Quarantine/Isolated any Illness No Any Contact with Sick Animals/Birds No Traveled Anywhere in Last 30 Days No Lost Weight Unintentionally Recently No Eat Poorly Due to Decreased Appetite No Total MST Score 0 N/A Personal Devices, Patient Valuables Dentures, partial plate, Dentures, upper Admission Note-Nursing Patient History 09/20/2023 23:22 EST Temperature Oral 37.9 DegC HI Heart Rate Monitored 89 bpm Respiratory Rate 16 br/min Systolic Blood Pressure Non-Invasive 134 mmHg Diastolic Blood Pressure Non-Invasive 74 mmHg Reason For Taking VItal Signs Admission Primary Pain Intensity 1 Primary Pain Nonverbal Response Nods No Pain Scale Type 0-10 Pain scale Nail Bed Color [place] Capillary Refill < 2 seconds Heart Rhythm Irregular (Modified) Dorsalis Pedis Pulse, Left 2+ Normal Dorsalis Pedis Pulse, Right 2+ Normal Respirations Unlabored Respiratory Pattern Regular Breath Sounds Auscultated Anterior and posterior All Lobes Breath Sounds Clear Oxygen Therapy Room air Oxygen Saturation 96 % Abdomen Description Non-distended, Rounded Abdomen Palpation Tender Abdomen Tender Suprapubic Passing Flatus Yes Bowel Movement Last Date 09/20/2023 Bowel Sounds All Quadrants Present Genitourinary Symptoms Dysuria Urinary Elimination Voiding with difficulties All Extremity Description [place]rum Skin Temperature Warm Temperature All Extremities Warm Skin Description Dry Skin Integrity Pressure points intact Skin Turgor Elastic Mucous Membrane Color [place] Mucous Membrane Description Moist Neurological Language Able to speak clearly Neurological Symptoms Patient denies Extremity Movement Equal Swallowing Difficulty None Characteristics of Communication Appropriate Characteristics of Speech Clear Level of Consciousness Alert PAWAN Yes Strength All Extremities Moderate Tone All Extremities Normal Sensation All Extremities Intact Affect/Behavior Appropriate, Calm, Cooperative Orientation Oriented x 4 Orientation Assessment Oriented x 4 Positioning Repositions self, Encouraged/reinforced importance of turning Nurse Safety Checks q2hrs Performed 11pm-3am Standard Safety ID band on, Call device within reach, Bed in low position, Wheels locked, Upper/Half-Length side-rails up, Phone within reach, Safety level maintained Demonstrates Correct Call Light Use Yes 09/20/2023 23:00 EST Oral Intake 0 mL Stool Count 0 EA Urine Voided 400 mL 09/20/2023 22:14 EST Peripheral Pulse Rate 88 bpm Respiratory Rate 20 br/min Systolic Blood Pressure Non-Invasive 133 mmHg Diastolic Blood Pressure Non-Invasive 69 mmHg Oxygen Saturation 97 % 09/20/2023 20:53 EST Peripheral Pulse Rate 88 bpm Respiratory Rate 20 br/min Systolic Blood Pressure 133 mmHg Diastolic Blood Pressure 69 mmHg Pain Scale Assessment 0-10 Pain scale Primary Pain Intensity 0 Pain Symptoms No Oxygen Saturation 97 % PEWS Behavior Assessment 0 PEWS Cardiovascular Assessment 0 PEWS Extra 0 PEWS Respiratory Assessment 0 PEWS Score 0 Individuals Taught Patient Learning Readiness Willing to learn Barriers to Learning None evident Teaching Method Explanation Teaching Evaluation Verbalizes/Nonverbally indicates understanding Reason for Transfer Medically indicated transfer 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 Barnes Nurse Receiving Report Lucinda PUCKETT Date/Time Nurse Received Report 09/20/2023 20:00 Mode of Transfer Ground ambulance Required Personnel for Transfer EMT Ambulance Service [facility] 09/20/2023 19:55 EST Patient Information Note Report called to Lucinda PUCKETT on 6E. All questions answered at this time 09/20/2023 17:33 EST Transferring Physician PENELOPERUBY MONSIVAIS 09/20/2023 17:06 EST Temperature Oral 37.7 DegC HI Peripheral Pulse Rate 97 bpm Respiratory Rate 20 br/min Systolic Blood Pressure Non-Invasive 136 mmHg Diastolic Blood Pressure Non-Invasive 79 mmHg Primary Pain Intensity 4 Pain Scale Type 0-10 Pain scale Oxygen Saturation 96 % 09/20/2023 16:[address] ABDOMEN/PELVIS W/O CONTRAST CT ABDOMEN/PELVIS W/O CONTRAST 09/20/2023 16:04 EST ceftriaxone 1 gram(s) gram(s) Sodium Chloride 0.9% 100 mL mL 09/20/2023 15:44 EST Sodium Chloride 0.9% 1,000 mL mL 09/20/2023 15:40 EST Primary Pain Intensity 8 acetaminophen 975 mg mg morphine 4 mg mg ondansetron 4 mg mg Sodium Chloride 0.9% 1,000 mL mL 09/20/2023 15:35 EST WBC 5.1 10^3/mcL RBC 2.91 10^6/mcL LOW Hgb 9.0 G/dL LOW Hct 26.6 % LOW MCV 91.3 fL MCH 31.0 pg MCHC 33.9 G/dL RDW 15.4 % HI Platelet 198 10^3/mcL MPV 6.7 fL LOW Monocyte Distribution Width 18.86 Neutrophil % 81.9 % HI Lymphocyte % 5.4 % LOW Monocyte % 9.9 % Eosinophil % 2.4 % Basophil % 0.4 % Neutrophil, Absolute 4.1 10^3/mcL Lymphocyte, Absolute 0.3 10^3/mcL LOW Monocyte, Absolute 0.5 10^3/mcL Eosinophil, Absolute 0.1 10^3/mcL Basophil, Absolute 0.0 10^3/mcL Glucose Level 191 mg/dL HI Sodium Level 141 mmol/L Potassium Level 4.7 mmol/L Chloride 104 mmol/L CO2 24 mmol/L Electrolyte Balance 13.0 mEq/L BUN 39 mg/dL HI Creatinine Lvl (s) 2.28 mg/dL HI BUN/Creatinine Ratio 17 ratio Calcium Lvl 8.8 mg/dL GFR Non- 27 ml/min/1.73sqm NA GFR 33 ml/min/1.73sqm NA Lactic Acid Lvl 1.2 mmol/L Creatinine Clearance Calc 24.67 mL/min Antecubital Right 20 gauge Peripheral IV Activity: Insert new site Peripheral IV Dressing Condition: Clean, Dry, Intact Peripheral IV Dressing Activity: Applied Peripheral IV Line Status/Patency: Flushes easily, 3ml normal saline flush, Good blood return Peripheral IV Line Care: Secured with tape Peripheral IV Site Condition: No complications Peripheral IV Equipment: PRN Adaptor Peripheral IV Number of Attempts: 1 09/20/2023 15:28 EST [facility] Room Note 09/20/2023 15:25 EST Primary Pain Location Abdomen Abdominal Pain Location LLQ, RLQ Primary Pain Laterality Bilateral Primary Pain Intensity 8 Primary Pain Time Pattern acute Primary Pain Onset Sudden Primary Pain Quality Sharp Primary Pain Nonverbal Response Nods Yes Pain Scale Type 0-10 Pain scale Respirations Unlabored Respiratory Pattern Regular Abdomen Description Symmetric, Soft Abdomen Palpation Tender, Soft Abdomen Tender LLQ, RLQ Bowel Sounds All Quadrants Present Skin Temperature Warm Skin Description Normal for ethnicity, Dry Skin Integrity Intact Neurological Symptoms Patient denies Level of Consciousness Alert Strength All Extremities Strong Violence Risk Confused No Violence Risk Irritable No Violence Risk Boisterous No Violence Risk Verbal Threats No Violence Risk Physical Threats No Violence Risk Attacking Objects No Violence Risk Predictor Score 0 Violence Risk Intervention None Violence Risk Current Interventions None Affect/Behavior Calm, Cooperative Appearance Clean Orientation Oriented x 4 Standard Safety ID band on, Call device within reach, Bed in low position, Wheels locked, Upper/Half-Length side-rails up, Phone within reach, personal items within reach 09/20/2023 15:24 EST Status N/A Shaver Screen Daily History of Fall in Last 3 Months Shaver No History of Fall in Last 3 Months Shaver No Presence of Secondary Diagnosis Shaver No Use of Ambulatory Aid Shaver None, bedrest, wheelchair, nurse IV/PRN Adapter Fall Risk Shaver No Gait Weak or Impaired Fall Risk Shaver Normal, bedrest, immobile Mental Status Fall Risk Shaver Oriented to own ability Shaver Fall Risk Score 0 Thoughts of Harming Others - History No Thoughts of Suicide - History No Domestic Concerns None HT Control,Supervise,Monitor Denies Advanced Directives No - refuses information Individuals Taught Patient Learning Readiness Willing to learn Barriers to Learning None evident Teaching Method Explanation Teaching Evaluation Verbalizes/Nonverbally indicates understanding Chief Complaint Pt c/o lower abdominal pain that started last night. Pt states he was here earlier today and dx with a UTI. Place Where Injury/Illness Occurred Home Anticoagulants Taken In Past 6 Wks. No N/A Anesthesia/Transfusions None ED Assessment Note - Nursing ED Patient History Form 09/20/2023 15:23 EST Height 180 cm Admission Weight 95.5 kg [place]o Body Weight 74.99 kg Temperature Oral 37.4 DegC HI Peripheral Pulse Rate 105 bpm HI Respiratory Rate 20 br/min Systolic Blood Pressure Non-Invasive 182 mmHg HI Diastolic Blood Pressure Non-Invasive 88 mmHg JUSTINE Level 1 No JUSTINE Level 2 No JUSTINE Level 3 Many Vital Signs JUSTINE No Recommended JUSTINE Level 3 Oxygen Saturation 97 % Eye Opening Response Juan Spontaneously Best Motor Response [place] Obeys simple commands Best Verbal Response [place] Oriented Juan Coma Score 15 Wish To Be No Suicidal Thoughts No Ever Made Plans to End Your Life No Suicide Severity Rating No problems noted Infectious Disease Symptoms Patient states no symptoms Infectious Disease Recent Exposure No Alcohol and Drug Use No Employee of Institutional Living No Health Care Employee No History of Exposure to TB No History of Positive Chest X-Ray for TB No History of Positive TB Skin Test No Homeless No Known Immunosuppression No Recent Immigrant No Resident of Institutional Living No Bloody Sputum No Fatigue No Fever No Loss of Appetite No Night Sweats No Persistent Cough > 3 Weeks No Weight Loss No Preferred Spoken Language [place] Preferred Written Language [place] Tracking Group ED AO Tracking Group Tracking Acuity 3 Mode of Transfer Private vehicle Prev Test Positive/Diagnosis w/COVID-19 No Current Quarantine/Isolated any Illness No Any Contact with Sick Animals/Birds No Traveled Anywhere in Last 30 Days No ED Triage Adults ED Triage Adults 09/20/2023 14:22 EST Transition of Care Note Transition of Care sent from [facility] 09/20/2023 9:35 EST Pain Scale Assessment 0-10 Pain scale Primary Pain Intensity 5 Pain Symptoms Yes Respiratory Pattern Regular Level of Consciousness Alert Affect/Behavior Cooperative Orientation Oriented x 4 PEWS Behavior Assessment 0 PEWS Cardiovascular Assessment 0 PEWS Extra 0 PEWS Respiratory Assessment 0 PEWS Score 0 Individuals Taught Patient Learning Readiness Willing to learn Barriers to Learning None evident Teaching Method Printed materials, Teach-back Teaching Evaluation Needs reinforcement, Verbalizes/Nonverbally indicates understanding Accompanied by Spouse Discharged to Home with family care Mode of Discharge Ambulatory Discharge Transportation Private vehicle Assistive Device None Activity Status ADL Up ad marly Activity Assistance Independent 09/20/2023 9:28 EST cephalexin 500 mg mg 09/20/2023 9:25 EST [facility] Outpatient Patient Summary ED/Urgent Care Discharge Instructions 09/20/2023 9:25 EST Pat Edu Pat Edu (Modified) 09/20/2023 8:51 EST EMS Run Sheet 09/20/2023 8:36 EST Urine Color Yellow Urine Description Small amount, Cloudy 09/20/2023 8:35 EST UA Specimen Type Clean Catch UA Color Yellow UA Appear Cloudy UA Spec Grav 1.020 UA Glucose Negative mg/dL UA Bili Negative UA Ketones Negative mg/dL UA Blood Moderate UA pH 5.5 UA Protein 30 mg/dL UA Urobilinogen 0.2 E.U./dL UA Nitrite Negative UA Leuk Est Moderate UA RBC 15-25 /HPF UA WBC LOADED /HPF UA Squam Epithelial 0-5 /HPF UA Bacteria 3+ /HPF 09/20/2023 8:05 [facility] Emergency Room Note 09/20/2023 7:58 EST Activity Status ADL Up to bathroom 09/20/2023 7:55 EST Status N/A Shaver Screen Daily History of Fall in Last 3 Months Shaver No History of Fall in Last 3 Months Shaver No Presence of Secondary Diagnosis Shaver No Use of Ambulatory Aid Shaver None, bedrest, wheelchair, nurse IV/PRN Adapter Fall Risk Shaver No Gait Weak or Impaired Fall Risk Shaver Normal, bedrest, immobile Mental Status Fall Risk Shaver Oriented to own ability Shaver Fall Risk Score 0 Thoughts of Harming Others - History No Thoughts of Suicide - History No Domestic Concerns Denies HT Control,Supervise,Monitor Denies Advanced Directives No - refuses information Individuals Taught Patient Learning Readiness Willing to learn Barriers to Learning Hearing deficit Teaching Method Printed materials Teaching Evaluation Needs reinforcement, Verbalizes/Nonverbally indicates understanding Chief Complaint bilateral lower abd pain with urinary frequency Place Where Injury/Illness Occurred Home Information Given by Patient Date/Time of Injury/Illness 09/20/2023 2:00 Anticoagulants Taken In Past 6 Wks. Yes Anticoagulant Taken Apixaban (Eliquis) N/A Anesthesia/Transfusions Prior anesthesia ED Assessment Note - Nursing ED Patient History Form 09/20/2023 7:53 EST Height 180.3 cm Admission Weight 95.5 kg [place]o Body Weight 75.26 kg Temperature Oral 36.5 DegC Peripheral Pulse Rate 82 bpm Respiratory Rate 18 br/min Systolic Blood Pressure Non-Invasive 113 mmHg Diastolic Blood Pressure Non-Invasive 68 mmHg Primary Pain Location Abdomen Abdominal Pain Location LLQ, RLQ Primary Pain Intensity 5 Primary Pain Quality Tightness Pain Scale Type 0-10 Pain scale Respirations Unlabored Respiratory Pattern Regular Oxygen Therapy Room air Oxygen Saturation 95 % Abdomen Description Non-distended, Soft Bowel Movement Last Date 09/19/2023 Bowel Sounds All Quadrants Present Genitourinary Symptoms Frequency Skin Temperature Warm Skin Description Hendrum, Dry Mucous Membrane Description Moist Level of Consciousness Alert Eye Opening Response [place] Spontaneously Best Motor Response [place] Obeys simple commands Best Verbal Response Juan Oriented [place] Coma Score 15 Violence Risk Confused No Violence Risk Irritable No Violence Risk Boisterous No Violence Risk Verbal Threats No Violence Risk Physical Threats No Violence Risk Attacking Objects No Violence Risk Predictor Score 0 Affect/Behavior Cooperative Orientation Oriented x 4 Wish To Be No Suicidal Thoughts No Ever Made Plans to End Your Life No Suicide Severity Rating No problems noted Infectious Disease Symptoms Patient states no symptoms Infectious Disease Recent Exposure No Alcohol and Drug Use No Employee of Institutional Living No Health Care Employee No History of Exposure to TB No History of Positive Chest X-Ray for TB No History of Positive TB Skin Test No Homeless No Known Immunosuppression No Recent Immigrant No Resident of Institutional Living No Bloody Sputum No Fatigue No Fever No Loss of Appetite No Night Sweats No Persistent Cough > 3 Weeks No Weight Loss No Preferred Spoken Language [place] Preferred Written Language [place] Tracking Group ED AO Tracking Group Tracking Acuity 3 Mode of Transfer Private vehicle Standard Safety ID band on, Call device within reach, Bed in low position, Wheels locked, Visitor at bedside Prev Test Positive/Diagnosis w/COVID-19 No Current Quarantine/Isolated any Illness No Any Contact with Sick Animals/Birds No Traveled Anywhere in Last 30 Days No ED Triage Adults ED Triage Adults . Assessment and Plan [place] [employer] (ASA) physical status classification: Class III. Anesthetic Preoperative Plan Anesthetic technique: General. Induction: intravenously. Maintenance airway: Laryngeal mask airway. Postoperative pain management: Per surgeon. Risks discussed: nausea, vomiting, headache, sore throat, dental injury, hypotension, allergic reaction, serious complications. Informed consent: please refer to paper chart . Notes: Extensive time was spent discussing with the patient and/or POA the inherent risks of anesthesia including but not limited too sore throat, dental injuries to teeth and gums, corneal abrasions, risk of heart attack, stroke, end organ dysfunction, and . The patient and/or POA is aware ofthese risks, accepts them and wishes to proceed with anesthesia. A-fib, CAD, DM2, HTN, prostate cancer . Digitally Signed by HAYDEE MARKHAM DO on 09/21/2023 01:09 PM [id number] Consult note Date of Service 09/21/2023 Reason for Consultation Left ureteral stone, obstructive left pyelonephritis, prostate cancer Referring Physician Hospitalist team History of Present Illness This is a 88-year-old male recently diagnosed with prostate cancer completed course of radiation therapy 07/29. Multifocal [place] score 7 and 8 noted on 6 of 12 cores. PSA was in then 9.8 range. He also received preradiation Lupron and will remain on this for 2 years. Minimal side effects from this. He has been followed in the past for nonobstructing left renal stone. Presented to the emergency room and was transferred from [facility] with 24-hour history of worsening left lower abdominal pain with nausea and decreased p.o. intake but no vomiting. Was found to have 9 mm mid ureteral stone causing obstruction with perinephric inflammatory changes. This appears to be the known left renal stone which moved into the ureter. See below discussion regarding CAT scan. Did have temperature of 37 9 on admission with normal white count. He was started on Rocephin and cultures taken. Urinalysis showed significant pyuria with 3+ bacteria patient has a history of UTI he states about a year and a half ago presenting with altered mental status and irritative symptoms. Physical Exam Vitals and Measurements T: 36.8 C (Oral) TMIN: 36.8 C (Oral) TMAX: 37.9 C (Oral) HR: 93 RR: 17 BP: 88/40 SpO2: 97% HT: 180.3 cm WT: 90.5 kg BMI: 27.84 Weight Dosing Weight: 90.5 kg (09/20/23) Patient resting comfortably. Alert and oriented. Abdomen is soft but there is left lower quadrant tenderness and left CVAT noted. Penis scrotum normal. Bladder is soft. Lab Results 09/21 03:46 WBC: 6.8 Hgb: 7.3 L Hct: 21.9 L Platelet: 161 Neutrophil %: 84.2 H Glucose Level: 127 H Sodium Level: 139 Potassium Level: 4.5 BUN: 33.0 H Creatinine Lvl (s): 2.04 H Assessment/Plan 1. History of prostate cancer high-grade multifocal recent score 7 and 8 presented with PSA of 10 status post radiation therapy completed 07/28 currently receiving Lupron to complete a 2-year postradiation course. On CT there are post radiation changes with hypodense parenchyma posterior prostate on CT which was originally calcified on imaging from 05/28. No clinical evidence of abscess. 2. Movement of a known left renal stone into the mid left ureter about 9 mm but quite dense with associated hydronephrosis and perinephric inflammatory changes present with left renal colic 3. Associated urinary tract infection with fevers, pyuria bacteriuria 4. Acute kidney injury with baseline creatinine level around 1.3 currently up to 2.2. This is secondary to dehydration and unilateral left renal obstruction 5. Anticoagulation with Eliquis for atrial fibrillation. Coincidentally patient did have a nosebleed and because of this has been off of Eliquis for 3 days. Will hold anticoagulation at this point Patient is presenting with obstructive left pyelonephritis in the setting of obstructing mid ureteral stone. He requires urgent left ureteral stenting to decompress the left kidney and in the infection. He understands we will not definitively treat the stone but will just place left ureteral stent.He understands that ureteroscopy may be necessary to help bypass the stone but once again definitive stone treatment will not be performed until after infection is cleared likely over the next 3 weeks. If were unable to bypass the stone he understands he may require left percutaneous nephrostomy tube placement. Fortunately he has been off of Eliquis for 3 days because of nosebleed which has resolved. Will continue antibiotics and follow-up on cultures. Keep patient NPO. Risk of bleeding anesthesia, infection and stent irritative symptoms are reviewed with patient. Problem List/Past Medical History Ongoing 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 Chronic venous insufficiency Diabetes Elevated PSA Family history of prostate cancer GERD - Gastro-esophageal reflux disease H/O epistaxis Hernia, internal History of blood clots History of urinary retention Kidney stones Macular degeneration Nocturia Non-Insulin Dependent Diabetes Mellitus Renal insufficiency, mild Synovial cyst Ureterovesical junction obstruction Historical Diastasis recti History of UTI Procedure/Surgical History Transperineal biopsy of prostate using magnetic resonance imaging and ultrasonography fusion guidance: 02/01/23 Heart valve replacement - graft: 2012 CABG (Coronary artery bypass grafting) planned: 09/17/12 Colonoscopy Esophagogastroduodenoscopy Carpal tunnel release Hiatus hernia repair Medications Inpatient acetaminophen, 650 mg= 2 tab(s), Oral, q6hWA, PRN cefTRIAXone, 1 gram(s)= 10 mL, IV Push (INT), qDay Dextrose 50% IV Push, 12.5 gram(s)= 25 mL, IV Push, AsDirected, PRN HumaLOG 100 units/mL subcutaneous solution, Give 0-5 units/dose, Subcutaneous, TIDAC LR 1,000 mL, 1000 mL, Intravenous melatonin, 3 mg= 1 tab(s), Oral, qHS, PRN melatonin, 3 mg= 1 tab(s), Oral, qHS, PRN morphine, 2 mg= 1 mL, IV Push, q3h, PRN morphine, 3 mg= 0.75 mL, IV Push, q3h, PRN pantoprazole, 40 mg= 1 tab(s), Oral, qDay tamsulosin, 0.4 mg= 1 cap(s), Oral, qDayPC Zofran, 4 mg= 2 mL, IV Push, q4h, PRN Zofran ODT, 4 mg= 1 tab(s), Oral, q6h, PRN Home Amaryl 1 mg oral tablet, 1 mg= 1 tab(s), Oral, BID aspirin 81 mg oral tablet, chewable, 81 mg= 1 tab(s), Oral, qAM cephalexin 500 mg oral capsule, 500 mg= 1 cap(s), Oral, q12h Eliquis 2.5 mg oral tablet, 2.5 mg= 1 tab(s), Oral, BID, Still taking, not as prescribed: patient reports approx 3 days ago he stopped taking it Janumet 50 / 1000 mg oral tablet, 1 tab(s), Oral, BID leflunomide 10 mg oral tablet, 10 mg= 1 tab(s), Oral, qAM lisinopril 40 mg oral tablet, 40 mg= 1 tab(s), Oral, qHS Multivitamin, 1 tab(s), Oral, Daily pantoprazole 40 mg oral enteric coated tablet, 40 mg= 1 tab(s), Oral, qDay Tylenol PM Extra Strength oral tablet, 2 tab(s), Oral, qHS, PRN Vitamin D3 50 mcg (2000 intl units) oral capsule, 50 mcg= 1 cap(s), Oral, qDay vitamin E 400 intl units oral capsule, 400 International_Unit= 1 cap(s), Oral, Daily Allergies NKA Social History Smoking Status - 04/15/2018 Never smoker Alcohol - Denies Alcohol Use, 09/18/2017 Use: Never., 03/28/2023 Employment/School Status: Retired. Previous employment/school: [employer] 03/28/2023 Home/Environment Marital Status: ., 03/28/2023 Substance Abuse - Denies Substance Abuse, 09/18/2017 Use: Never., 03/28/2023 Tobacco Nicotine Use: Never (less than 100 in lifetime)., 03/16/2023 Family History Arthritis 28-MAY-2014 16:49:04<$>: Son. Asthma: Brother. Bladder cancer: Negative: Mother, Father, Brother, Son and Grandparent. Colon cancer: Negative: Mother, Father, Sister, Brother, Daughter, Son, Son, Son, Son and Grandparent. Diabetes mellitus: Mother. Heart attack: Son. Heart disease: Mother and Father. Kidney stone: Negative: Mother, Father, Brother, Son and Grandparent. Prostate cancer: Negative: Father and Grandparent. Prostate cancer 03-Mar-2016 02:35:22<$>: Brother. Renal cancer: Negative: Mother, Father, Brother, Son and Grandparent. Stroke: Mother. Immunizations SARS-CoV-2 (COVID-19) mRNA-1273 vaccine: 0.25 unknown unit (07/28/21) SARS-CoV-2 (COVID-19) mRNA-1273 vaccine: 0.5 unknown unit (10/30/20) SARS-CoV-2 (COVID-19) mRNA-1273 vaccine: 0.5 unknown unit (10/02/20) tetanus/diphth/pertuss (Tdap) adult/adol: 0.5 unknown unit (07/20/18) Digitally Signed by EZEKIEL QUIROS MD on 09/21/2023 08:45 AM [id number] History and physical note Date of Service 09/21/23 Chief Complaint Lower abdominal pain History of Present Illness 88-year-old male with PMHx A-fib, CAD, DM2, HTN, prostate cancer presents as a transfer from [facility] ED for lower abdominal pain. History obtained by patient, ED physician, chart review. Patient reports he has been having pain in the lower abdomen since yesterday. Decreased p.o. intake. No vomiting but endorses general discomfort and malaise. No change in bowel habits. No dysuria or hematuria noted. He has a history of nephrolithiasis and this feels similar. At this point abdominal pain is generalized but worse in the lower half. In the emergency department he has elevated oral temperature 37.9. BP stable. He had an episode of tachycardia up to 105. CBC with anemia with hemoglobin 9.0. UA concerning for infection with loaded WBCs, 3+ bacteria, 15-25 RBCs. BMP with glucose 191, creatinine one 2.28 from previously 1.31 on 09/06/2023. Lactic acid 1.2. CT abdomen pelvis shows 0.9 cm obstructing calculus in the left mid ureter with moderate to severe upstream hydroureteronephrosis. Stranding also present. Prostatomegaly with interval increase in size, necrotic mass versus hematoma should be considered. Correlate with recent surgical or radiation treatment. Review of Systems Pertinent review of systems are included in the HPI. All other systems were reviewed and are negative for acute changes from the patient's baseline. Physical Exam Vitals and Measurements T: 37.9 C (Oral) HR: 89(Monitored) RR: 16 BP: 134/74 SpO2: 96% HT: 180.3 cm WT: 90.5 kg BMI: 27.84 Weight Dosing Weight: 90.5 kg (09/20/23) GA: Alert and oriented x3, no acute distress Abd: Not distended HEENT: NCAT, sclera anicteric, oral mucosa moist Pulmonary: No tachypnea or use of accessory respiratory muscles. MSK: No gross deformities Cardiovascular: Not tachycardic Skin: Warm and dry Neuro: Spontaneous movement of all extremities, cranial nerves II through XII grossly normal Psychiatric: Thought content, associations, attention are all normal. Lab Results WBC: 5.1 10^3/mcL (09/20/23 15:35:00) RBC: 2.91 10^6/mcL Low (09/20/23 15:35:00) Hgb: 9 G/dL Low (09/20/23 15:35:00) Hct: 26.6 % Low (09/20/23 15:35:00) MCV: 91.3 fL (09/20/23:35:00) MCH: 31 pg (09/20/23 15:35:00) MCHC: 33.9 G/dL (09/20/23 15:35:00) RDW: 15.4 % High (09/20/23 15:35:00) Platelet: 198 10^3/mcL (09/20/23 15:35:00) MPV: 6.7 fL Low (09/20/23 15:35:00) Monocyte Distribution Width: 18.86 (09/20/23 15:35:00) Neutrophil %: 81.9 % High (09/20/23 15:35:00) Lymphocyte %: 5.4 % Low (09/20/23 15:35:00) Monocyte %: 9.9 % (09/20/23 15:35:00) Eosinophil %: 2.4 % (09/20/23 15:35:00) Basophil %: 0.4 % (09/20/23 15:35:00) Neutrophil, Absolute: 4.1 10^3/mcL (09/20/23 15:35:00) Lymphocyte, Absolute: 0.3 10^3/mcL Low (09/20/23 15:35:00) Monocyte, Absolute: 0.5 10^3/mcL (09/20/23 15:35:00) Eosinophil, Absolute: 0.1 10^3/mcL (09/20/23:35:00) Basophil, Absolute: 0 10^3/mcL (09/20/23 15:35:00) UA Specimen Type: Clean Catch (09/20/23 08:35:00) UA Color: Yellow (09/20/23 08:35:00) UA Appear: Cloudy Abnormal (09/20/23 08:35:00) UA Spec Grav: 1.020 (09/20/23 08:35:00) UA Glucose: Negative. (09/20/23 08:35:00) UA Bili: Negative. (09/20/23 08:35:00) UA Ketones: Negative. (09/20/23 08:35:00) UA Blood: Moderate Abnormal (09/20/23 08:35:00) UA pH: 5.5 (09/20/23:35:00) UA Protein: 30 (09/20/23 08:35:00) UA Urobilinogen: 0.2 (09/20/23 08:35:00) UA Nitrite: Negative. (09/20/23:35:00) UA Leuk Est: Moderate Abnormal (09/20/23:35:00) UA RBC: 15-25 Abnormal (09/20/23:35:00) UA WBC: LOADED Abnormal (09/20/23:35:00) UA Squam Epithelial: 0-5 Abnormal (09/20/23:35:00) UA Bacteria: 3+ Abnormal (09/20/23 08:35:00) Glucose Level: 191 mg/dL High (09/20/23 15:35:00) Sodium Level: 141 mmol/L (09/20/23:35:00) Potassium Level: 4.7 mmol/L (09/20/23:35:00) Chloride: 104 mmol/L (09/20/23:35:00) CO2: 24 mmol/L (09/20/23:35:00) Electrolyte Balance: 13 mEq/L (09/20/23:35:00) BUN: 39 mg/dL High (09/20/23 15:35:00) Creatinine Lvl (s): 2.28 mg/dL High (09/20/23:35:00) BUN/Creatinine Ratio: 17 ratio (09/20/23:35:00) Calcium Lvl: 8.8 mg/dL (09/20/23 15:35:00) Total Protein: 6.9 G/dL (09/02/23 13:45:00) Albumin Level: 3.4 G/dL (09/02/23 13:45:00) Globulin: 3.5 G/dL (09/02/23 13:45:00) A/G Ratio: 1 ratio Low (09/02/23 13:45:00) Bili Total: 0.3 mg/dL (09/02/23 13:45:00) Alk Phos: 65 U/L (09/02/23 13:45:00) AST/SGOT: 27 U/L (09/02/23 13:45:00) ALT/SGPT: 27 U/L (09/02/23 13:45:00) GFR Non-: 27 ml/min/1.73sqm (09/20/23 15:35:00) GFR : 33 ml/min/1.73sqm (09/20/23 15:35:00) Lactic Acid Lvl: 1.2 mmol/L (09/20/23 15:35:00) Troponin I High Sensitivity: 10.42 ng/L (09/06/23 13:26:00) Assessment/Plan Obstructing left-sided nephrolithiasis. 0.9 cm stone in the left mid ureter. Correlates with lower abdominal pain. He has a history of nephrolithiasis in the past. Transferred here for evaluation by urology. -Urology consult -Tamsulosin -IV fluids -N.p.o. -Pain control Complicated UTI. Patient with borderline elevated oral temperature, episode of tachycardia. He has 3+ bacteria, loaded WBCs on UA. -Ceftriaxone 1 g daily -Follow-up urine culture MIRYAM on CKD. Creatinine 2.28 from 1.31 on 09/06/2023. -Continue IV fluids -Avoid NSAIDs -Pause DELVIN/ARB -Recheck creatinine Atrial fibrillation. Patient is on Eliquis. This should be resumed after evaluation by urology. Rate is currently controlled. CAD. Patient is on ASA. Also should be resumed after procedure. DM2 on glimepiride, metformin and Sitagliptin. Will pause patient's home diabetic agents and place on sliding scale insulin. GERD. Chronic. Continue PPI. HTN. Patient's creatinine is significantly elevated. Will place on IV fluids and recheck. Prostate cancer. Noted to have necrotic mass on CT abdomen pelvis. Patient is on leflunomide. Noted that there is a contraindication with liver disease. LFTs will bechecked. Resume leflunomide if no abnormality. Medications were not verified by pharmacy at the time of this dictation. Reconciliation to be completed once medications are verified; will address additional chronic medical problems at that time. DVT prophylaxis: SCDs Note dictated using voice recognition software and may contain typographical errors. Problem List/Past Medical History Ongoing 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 Chronic venous insufficiency Diabetes Elevated PSA Family history of prostate cancer GERD - Gastro-esophageal reflux disease H/O epistaxis Hernia, internal History of blood clots History of urinary retention Kidney stones Macular degeneration Nocturia Non-Insulin Dependent Diabetes Mellitus Renal insufficiency, mild Synovial cyst Ureterovesical junction obstruction Historical Diastasis recti History of UTI Procedure/Surgical History Transperineal biopsy of prostate using magnetic resonance imaging and ultrasonography fusion guidance: 02/01/23 Heart valve replacement - graft: 2012 CABG (Coronary artery bypass grafting) planned: 09/17/12 Colonoscopy Esophagogastroduodenoscopy Carpal tunnel release Hiatus hernia repair Medications Home Medications (12) Active Amaryl 1 mg oral tablet 1 mg = 1 tab(s), Oral, BID aspirin 81 mg oral tablet, chewable 81 mg = 1 tab(s), Oral, qAM cephalexin 500 mg oral capsule 500 mg = 1 cap(s), Oral, q12h Eliquis 2.5 mg oral tablet 2.5 mg = 1 tab(s), Oral, BID Janumet 50 / 1000 mg oral tablet 1 tab(s), Oral, BID leflunomide 10 mg oral tablet 10 mg = 1 tab(s), Oral, qAM lisinopril 40 mg oral tablet 40 mg = 1 tab(s), Oral, qHS Multivitamin 1 tab(s), Oral, Daily pantoprazole 40 mg oral enteric coated tablet 40 mg = 1 tab(s), Oral, qDay Tylenol PM Extra Strength oral tablet 2 tab(s), PRN, Oral, qHS Vitamin D3 50 mcg (2000 intl units) oral capsule 50 mcg = 1 cap(s), Oral, qDay vitamin E 400 intl units oral capsule 400 International_Unit = 1 cap(s), Oral, Daily Allergies NKA Social History Smoking Status - 04/15/2018 Never smoker Alcohol - Denies Alcohol Use, 09/18/2017 Use: Never., 03/28/2023 Employment/School Status: Retired. Previous employment/school: [employer] 03/28/2023 Home/Environment Marital Status: ., 03/28/2023 Substance Abuse - Denies Substance Abuse, 09/18/2017 Use: Never., 03/28/2023 Tobacco Nicotine Use: Never (less than 100 in lifetime)., 03/16/2023 Family History Arthritis 28-MAY-2014 16:49:04<$>: Son. Asthma: Brother. Bladder cancer: Negative: Mother, Father, Brother, Son and Grandparent. Colon cancer: Negative: Mother, Father, Sister, Brother, Daughter, Son, Son, Son, Son and Grandparent. Diabetes mellitus: Mother. Heart attack: Son. Heart disease: Mother and Father. Kidney stone: Negative: Mother, Father, Brother, Son and Grandparent. Prostate cancer: Negative: Father and Grandparent. Prostate cancer 03-Mar-2016 02:35:22<$>: Brother. Renal cancer: Negative: Mother, Father, Brother, Son and Grandparent. Stroke: Mother. Immunizations SARS-CoV-2 (COVID-19) mRNA-1273 vaccine: 0.25 unknown unit (07/28/21) SARS-CoV-2 (COVID-19) mRNA-1273 vaccine: 0.5 unknown unit (10/30/20) SARS-CoV-2 (COVID-19) mRNA-1273 vaccine: 0.5 unknown unit (10/02/20) tetanus/diphth/pertuss (Tdap) adult/adol: 0.5 unknown unit (07/20/18) Code Status Code Status - Ordered -- 09/21/23 0:43:00 EST, Full Code, Constant Order Digitally Signed by JOSEFINA SANCHEZ MD on 09/21/2023 01:11 AM [id number] Note ORIGINAL EXAMINATION: CT OF THE ABDOMEN AND PELVIS WITHOUT CONTRAST09/20/2023 4:23 pm TECHNIQUE: CT of the abdomen and pelvis was performed without the administration of intravenous contrast. Multiplanar reformatted images are provided for review. Automated exposure control, iterative reconstruction, and/or weight based adjustment of the mA/kV was utilized to reduce the radiation dose to as low as reasonably achievable. COMPARISON: 05/12/2023 HISTORY: ORDERING SYSTEM PROVIDED HISTORY: Reason for Exam: abdominal pain Lower abdominal pain started last night, history of prostate cancer FINDINGS: The blood pool within the heart appears hypodense relative to the heart wall and interventricular septum, which can be seen in anemia. Coronary artery calcifications. Multiple calcified granulomas. Areas of bronchiectasis as well as reticular interstitial opacities most notably in the subpleural regions, unchanged from prior exam. Scattered areas of pleural and pulmonary scarring. Suboptimal evaluation of the viscera secondary to lack of IV contrast. The unenhanced liver, gallbladder, pancreas and adrenal glands are unchanged. Unchanged calcification within the spleen which is otherwise unremarkable. The left kidney is mildly enlarged with a subcentimeter hypodense lesion which is too small to characterize. There is a 0.9 cm obstructing calculus within the mid left ureter with moderate upstream hydroureteronephrosis as well as adjacent stranding around the ureter. Thickening around the left renal fascia is also noted. Multiple nonobstructing right-sided nephrolithiasis versus vascular calcifications. The urinary bladder appears grossly unremarkable. The prostate is enlarged. There is a peripherally hyperdense and centrally hypodense structure posterior to the prostate measuring approximately 3.6 x 2.3 cm on axial images. This previously appeared more centrally hyperdense and has experienced interval increased in size. Small hiatal hernia. The small bowel is nondilated. Moderate to severe diverticulosis without evidence of acute diverticulitis. The appendix is unremarkable. No intraperitoneal free air or free fluid. The unopacified aorta is atherosclerotic, tortuous and nonaneurysmal. The an opacified IVC is unremarkable. No pathologically enlarged lymph nodes. Multilevel degenerative changes of the spine. Unchanged minimal retrolisthesis of L2 on L3 and L3 on L4 and grade 1 anterolisthesis of L4 on L5. Remote left rib deformities. Areas of degenerative disc disease with narrowing of the lower lumbar spine canal, correlate for any radiculopathy. IMPRESSION: There is a 0.9 cm obstructing calculus within the mid left ureter with moderate to severe upstream hydroureteronephrosis. Stranding also present around the ureter as well as around the left renal fascia. Correlate with UA to exclude any ascending infection. Nonobstructing right nephrolithiasis versus vascular calcifications. Prostatomegaly with interval increase in size and change in appearance of heterogeneous lobular structure posterior to the prostate. Necrotic prostate mass versus hematoma or other fluid collection should be considered. Correlate with any recent surgical or radiation treatment and any more recent imaging. Further investigation may be warranted. Additional findings as above. I have personally reviewed the images of this examination and agree with the resident's findings and interpretation. Interpreted by: Pastor Frazier Preliminary Report By: Renee Baker Electronically signed By Pastor Frazier Dictated Date: 09/20/2023 4:32:56 PM Prelim Date: 09/20/2023 4:57:09 PM Sign Date: 09/20/2023 5:24:30 PM [facility]ing Provider[facility] [id number] Hospital Discharge instructions Patient Education 09/20/2023 09:23:07 Bladder Infection, Male (Adult) Bladder Infection, Male (Adult) You have a bladder infection. Urine is normally free of bacteria. But bacteria can get into the urinary tract from the skin around the rectum or it may travel in the blood from elsewhere in the body. This is called a urinary tract infection (UTI). An infection can occur anywhere in the urinary tract. It could be in a kidney (pyelonephritis)or in the bladder (cystitis) and urethra (urethritis). The urethra is the tube that drains the urine from the bladder through the tip of the penis. The most common place for a UTI is in the bladder. This is called a bladder infection. Most bladderinfections are easily treated. They are not serious unless the infection spreads up to the kidney. The terms bladder infection, UTI, and cystitis are often used to describe the same thing, but they aren t always the same. Cystitis is an inflammation of the bladder. The most common cause of cystitis is an infection. Keep in mind: Infections in the urine are called UTIs. Cystitis is usually caused by a UTI. Not all UTIs and cases of cystitis are bladder infections. Bladder infections are the most common type of cystitis. Symptoms of a bladder infection The infection causes inflammation in the urethra and bladder. This inflammation causes many of the symptoms. The most common symptoms of a bladder infection are: Pain or burning when urinating Having to go more often than usual Feeling like you need to go right away Only a small amount comes out Blood in urine Discomfort in your belly (abdomen), usually in the lower abdomen, above the pubic bone Cloudy, strong, or bad smelling urine Unable to urinate (retention) Urinary incontinence Fever Loss of appetite Older adults may also feel confused. Causes of a bladder infection Bladder infections are not contagious. You can't get one from someone else, from a toilet seat, or from sharing a bath. The most common cause of bladder infections is bacteria from the bowels. The bacteria get onto the skin around the opening of the urethra. From there they can get into the urine and travel up to the bladder. This causes inflammation and an infection. This usually happens because of: An enlarged prostate Poor cleaning of the genitals Procedures that put a tube in your bladder, like a Preston catheter Bowel incontinence Older age Not emptying your bladder (The urine stays there, giving the bacteria a chance to grow.) Dehydration (This allows urine to stay in the bladder longer.) Constipation (This can cause the bowels to push on the bladder or urethra and keep the bladder fromemptying.) Treatment Bladder infections are treated with antibiotics. They usually clear up quickly without complications. Treatment helps prevent a more serious kidney infection. Medicines Medicines can help in the treatment of a bladder infection: You may have been given phenazopyridine to ease burning when you urinate. It will cause your urine to be bright orange. It can stain clothing. You may have been prescribed antibiotics. Take this medicine until you have finished it, even if you feel better. Taking all of the medicine will make sure the infection has cleared. You can use acetaminophen or ibuprofen for pain, fever, or discomfort, unless another medicine was prescribed. You can also alternate them, or use both together. They work differently and are a different class of medicines, so taking them together is not an overdose. If you have chronic liver or kidney disease, talk with your healthcare provider before using these medicines. Also talk with your provider if you ve had a stomach ulcer or GI bleeding or are taking blood thinner medicines. Home care Here are some guidelines to help you care for yourself at home: Drink plenty of fluids, unless your healthcare provider told you not to. Fluids will prevent dehydration and flush out your bladder. Use good personal hygiene. Wipe from front to back after using the toilet, and clean your penis regularly. If you aren t circumcised, retract the foreskin when cleaning. Urinate more frequently, and don t try to hold it in for long periods of time, if possible. Wear loose-fitting clothes and cotton underwear. Avoid tight-fitting pants. This helps keep you clean and dry. Change your diet to prevent constipation. This means eating more fresh foods and more fiber, and less junk and fatty foods. Avoid sex until your symptoms are gone. Avoid caffeine, alcohol, and spicy foods. These can irritate the bladder. Follow-up care Follow up with your healthcare provider, or as advised if all symptoms have not cleared up within 5days. It is important to keep your follow-up appointment. You can talk with your provider to see ifyou need more tests of the urinary tract. This is especially important if you have infections that keep coming back. If a culture was done, you will be told if your treatment needs to be changed. If directed, you cancall to find out the results. If X-rays were taken, you will be told of any findings that may affect your care. Call 911 Call 911 if any of these occur: Trouble breathing Difficulty waking up Feeling confused Fainting or loss of consciousness Rapid heart rate When to seek medical advice Call your healthcare provider right away if any of these occur: Fever of 100.4 F (38 C) or higher, or as directed by your healthcare provider Your symptoms don t improve after 2 days of treatment Back or abdominal pain that gets worse Repeated vomiting, or you aren t able to keep medicine down Weakness or dizziness [id number] [employer]. [address] [place] [address]. All rights reserved. This information is not intended as a substitute for professional medical care. Always follow yourhealthcare professional's instructions. Follow Up Care 09/20/2023 07:42:30 With:JAKI FLEMING DO, Internal Medicine, [facility] Address: [address] [place] [address] [phone] When:2-4 days [facility] 01-16-2024 Note Discharge Instructions Thank you for allowing [facility] to assist you with your healthcare needs. The following is importantdischarge information regarding your hospital visit. Diagnosis from Today's Visit Abdominal pain UTI - Urinary tract infection What to Do Next Instructions from Your Care Team No qualifying data available. Post Acute Orders No qualifying data available. You Need to Schedule the Following Appointments Follow Up with JAKI FLEMING DO, Internal Medicine, [facility] When Within 2-4 days Where: [address] [place] [address] [phone] Allergies NKA Medications Please ask your primary doctor or pharmacist before taking any other medication not listed, including over the counter drugs, herbal medications, vitamins and or supplements as they may interact withyour home medications. What How Much When Instructions Last Dose New cephalexin (cephalexin 500 mg oral capsule) 1 cap by mouth Every 12 hours Duration: 7 Days Printed Prescription Unchanged acetaminophen-diphenhydramine (Tylenol PM Extra Strength oral tablet) 2 tab(s) by mouth Daily at bedtime as needed for as needed for sleep Unchanged apixaban (Eliquis 2.5 mg oral tablet) 1 tab(s) by mouth Two (2) times a day Unchanged aspirin (aspirin 81 mg oral tablet, chewable) 1 tab(s) by mouth Once a day (in the morning) Unchanged cholecalciferol (Vitamin D3 50 mcg (2000 intl units) oral capsule) 1 cap by mouth Once a day Unchanged glimepiride (Amaryl 1 mg oral tablet) 1 tab(s) by mouth Two (2) times a day Unchanged leflunomide (leflunomide 10 mg oral tablet) 1 tab(s) by mouth Once a day (in the morning) Unchanged lisinopril (lisinopril 40 mg oral tablet) 1 tab(s) by mouth Daily at bedtime Unchanged metformin-sitagliptin (Janumet 50 / 1000 mg oral tablet) 1 tab(s) by mouth Two (2) times a day Unchanged multivitamin (Multivitamin) 1 tab(s) by mouth Every day Unchanged pantoprazole (pantoprazole 40 mg oral enteric coated tablet) 1 tab(s) by mouth Once a day Unchanged vitamin E (vitamin E 400 intl units oral capsule) 1 cap by mouth Every day Please take this list to your next doctor s visit. Bring all medications you take, including over the counter medications, herbals and other supplements with you to your doctor s visit. Patients and families are reminded to discard old lists and to update any records with all medication providers or retail pharmacies. Medication Leaflets cephalexin (sef a BOYD in) What is the most important information I should know about cephalexin? You should not use this medicine if you are allergic to cephalexin or to similar antibiotics, such as Ceftin, Cefzil, Omnicef, and others. Tell your doctor if you are allergic to any drugs, especially penicillins or other antibiotics. What is cephalexin? Cephalexin is a cephalosporin (SEF a low spor in) antibiotic that is used to treat bacterial infections of the lungs, ear, skin, bones, bladder, and kidneys. Cephalexin is used to treat infections in adults and children who are at least 1 year old. Cephalexin may also be used for purposes not listed in this medication guide. What should I discuss with my healthcare provider before taking cephalexin? You should not use this medicine if you are allergic to cephalexin or any other cephalosporin antibiotic (cefdinir, cefadroxil, cefoxitin, cefprozil, ceftriaxone, cefuroxime, Omnicef, and others). Tell your doctor if you have ever had: an allergy to any drug (especially penicillin); liver or kidney disease; or intestinal problems, such as colitis. The liquid form of cephalexin may contain sugar. This may affect you if you have diabetes. Tell your doctor if you are or breast-feeding. How should I take cephalexin? Follow all directions on your prescription label and read all medication guides or instruction sheets. Use the medicine exactly as directed. Do not use cephalexin to treat any condition that has not been checked by your doctor. Measure liquid medicine carefully. Use the dosing syringe provided, or use a medicine dose-measuring device (not a kitchen spoon). Use this medicine for the full prescribed length of time, even if your symptoms quickly improve. Skipping doses can increase your risk of infection that is resistant to medication. Cephalexin will not treat a viral infection such as the flu or a common cold. Do not share cephalexin with another person, even if they have the same symptoms you have. This medicine can affect the results of certain medical tests. Tell any doctor who treats you that you are using cephalexin. Store the tablets and capsules at room temperature away from moisture, heat, and light. Store the liquid medicine in the refrigerator. Throw away any unused liquid after 14 days. What happens if I miss a dose? Take the medicine as soon as you can, but skip the missed dose if it is almost time for your next dose. Do not take two doses at one time. What happens if I overdose? Seek emergency medical attention or call the Poison Help line at . Overdose symptoms may include nausea, vomiting, stomach pain, diarrhea, and blood in your urine. What should I avoid while taking cephalexin? Antibiotic medicines can cause diarrhea, which may be a sign of a new infection. If you have diarrhea that is watery or bloody, call your doctor before using anti-diarrhea medicine. What are the possible side effects of cephalexin? Get emergency medical help if you have signs of an allergic reaction (hives, difficult breathing, swelling in your face or throat) or a severe skin reaction (fever, sore throat, burning eyes, skin pain, red or purple skin rash with blistering and peeling). Call your doctor at once if you have: severe stomach pain, diarrhea that is watery or bloody (even if it occurs months after your last dose); unusual tiredness, feeling light-headed or short of breath; easy bruising, unusual bleeding, purple or red spots under your skin; a seizure; pale skin, cold hands and feet; yellowed skin, dark colored urine; fever, weakness; or pain in your side or lower back, painful urination. Common side effects may include: diarrhea; nausea, vomiting; indigestion, stomach pain; or vaginal itching or discharge. This is not a complete list of side effects and others may occur. Call your doctor for medical advice about side effects. You may report side effects to FDA at 2-153-NCX-1788. What other drugs will affect cephalexin? Tell your doctor about all your other medicines, especially: metformin; or probenecid. This list is not complete. Other drugs may affect cephalexin, including prescription and jsfo-quh-rojrnoc medicines, vitamins, and herbal products. Not all possible drug interactions are listed here. Where can I get more information? Your pharmacist can provide more information about cephalexin. Remember, keep this and all other medicines out of the reach of children, never share your medicines with others, and use this medication only for the indication prescribed. Every effort has been made to ensure that the information provided by [employer]. ('[employer]') is accurate, up-to-date, and complete, but no guarantee is made to that effect. Drug information contained herein may be time sensitive. [employer] information has been compiled for use by healthcare practitioners and consumers in the [place] and therefore [employer] does not warrant that uses outside of the [place] are appropriate, unless specifically indicated otherwise. [employer]'s drug information does not endorse drugs, diagnose patients or recommend therapy. [employer] drug information isan informational resource designed to assist licensed healthcare practitioners in caring for their p atients and/or to serve consumers viewing this service as a supplement to, and not a substitute for, the expertise, skill, knowledge and judgment of healthcare practitioners. The absence of a warningfor a given drug or drug combination in no way should be construed to indicate that the drug or drug combination is safe, effective or appropriate for any given patient. [facility] does not assume any responsibility for any aspect of healthcare administered with the aid of information [facility] provides. The information contained herein is not intended to cover all possible uses, directions, precautions, warnings, drug interactions, allergic reactions, or adverse effects. If you have questions about the drugs you are taking, check with your doctor, nurse or pharmacist. Copyright 5833-9002 [employer]. Version: .. Revision Date: 04/06/2023. Education Materials Bladder Infection, Male (Adult) You have a bladder infection. Urine is normally free of bacteria. But bacteria can get into the urinary tract from the skin around the rectum or it may travel in the blood from elsewhere in the body. This is called a urinary tract infection (UTI). An infection can occur anywhere in the urinary tract. It could be in a kidney (pyelonephritis)or in the bladder (cystitis) and urethra (urethritis). The urethra is the tube that drains the urine from the bladder through the tip of the penis. The most common place for a UTI is in the bladder. This is called a bladder infection. Most bladderinfections are easily treated. They are not serious unless the infection spreads up to the kidney. The terms bladder infection, UTI, and cystitis are often used to describe the same thing, but they aren t always the same. Cystitis is an inflammation of the bladder. The most common cause of cystitis is an infection. Keep in mind: Infections in the urine are called UTIs. Cystitis is usually caused by a UTI. Not all UTIs and cases of cystitis are bladder infections. Bladder infections are the most common type of cystitis. Symptoms of a bladder infection The infection causes inflammation in the urethra and bladder. This inflammation causes many of the symptoms. The most common symptoms of a bladder infection are: Pain or burning when urinating Having to go more often than usual Feeling like you need to go right away Only a small amount comes out Blood in urine Discomfort in your belly (abdomen), usually in the lower abdomen, above the pubic bone Cloudy, strong, or bad smelling urine Unable to urinate (retention) Urinary incontinence Fever Loss of appetite Older adults may also feel confused. Causes of a bladder infection Bladder infections are not contagious. You can't get one from someone else, from a toilet seat, or from sharing a bath. The most common cause of bladder infections is bacteria from the bowels. The bacteria get onto the skin around the opening of the urethra. From there they can get into the urine and travel up to the bladder. This causes inflammation and an infection. This usually happens because of: An enlarged prostate Poor cleaning of the genitals Procedures that put a tube in your bladder, like a Preston catheter Bowel incontinence Older age Not emptying your bladder (The urine stays there, giving the bacteria a chance to grow.) Dehydration (This allows urine to stay in the bladder longer.) Constipation (This can cause the bowels to push on the bladder or urethra and keep the bladder fromemptying.) Treatment Bladder infections are treated with antibiotics. They usually clear up quickly without complications. Treatment helps prevent a more serious kidney infection. Medicines Medicines can help in the treatment of a bladder infection: You may have been given phenazopyridine to ease burning when you urinate. It will cause your urine to be bright orange. It can stain clothing. You may have been prescribed antibiotics. Take this medicine until you have finished it, even if you feel better. Taking all of the medicine will make sure the infection has cleared. You can use acetaminophen or ibuprofen for pain, fever, or discomfort, unless another medicine was prescribed. You can also alternate them, or use both together. They work differently and are a different class of medicines, so taking them together is not an overdose. If you have chronic liver or kidney disease, talk with your healthcare provider before using these medicines. Also talk with your provider if you ve had a stomach ulcer or GI bleeding or are taking blood thinner medicines. Home care Here are some guidelines to help you care for yourself at home: Drink plenty of fluids, unless your healthcare provider told you not to. Fluids will prevent dehydration and flush out your bladder. Use good personal hygiene. Wipe from front to back after using the toilet, and clean your penis regularly. If you aren t circumcised, retract the foreskin when cleaning. Urinate more frequently, and don t try to hold it in for long periods of time, if possible. Wear loose-fitting clothes and cotton underwear. Avoid tight-fitting pants. This helps keep you clean and dry. Change your diet to prevent constipation. This means eating more fresh foods and more fiber, and less junk and fatty foods. Avoid sex until your symptoms are gone. Avoid caffeine, alcohol, and spicy foods. These can irritate the bladder. Follow-up care Follow up with your healthcare provider, or as advised if all symptoms have not cleared up within 5days. It is important to keep your follow-up appointment. You can talk with your provider to see ifyou need more tests of the urinary tract. This is especially important if you have infections that keep coming back. If a culture was done, you will be told if your treatment needs to be changed. If directed, you cancall to find out the results. If X-rays were taken, you will be told of any findings that may affect your care. Call 911 Call 911 if any of these occur: Trouble breathing Difficulty waking up Feeling confused Fainting or loss of consciousness Rapid heart rate When to seek medical advice Call your healthcare provider right away if any of these occur: Fever of 100.4 F (38 C) or higher, or as directed by your healthcare provider Your symptoms don t improve after 2 days of treatment Back or abdominal pain that gets worse Repeated vomiting, or you aren t able to keep medicine down Weakness or dizziness [id number] [employer]. [address] [place] [address], [place] [address]. All rights reserved. This information is not intended as a substitute for professional medical care. Always follow yourhealthcare professional's instructions. Additional Information VACCINATE! IT SAVES LIVES! Members of the community who have not yet received the COVID-19 vaccine and would like to receive it can visit one of [facility] vaccine clinics. There are many vaccine clinic locations within the [facility]. For locations and available times, please visit [email or web address]/. It is important to note that some COVID mobile vaccine clinics are held outdoors and may be canceled in rainy or stormy conditions. To learn more about pediatric vaccinations (ages 5-11), we invite you to visit the [facility] webpage. [email or web address]/pages/[email or web address]-Wxkabbyeokt-Fibjcwqqcs-Goauf-Ems stions.htmlTo learn more about the COVID-19 vaccine, we invite you to visit the CDC website for a list of frequently asked questions. https://www.cdc.gov/coronavirus/2019-ncov/vaccines/faq.html [facility] Patient Portal Access Instructions: Stay connected with your healthcare team and access your personal medical information anytime with the [facility] Patient Portal. If you would like a full copy of your medical records please contact the [facility] Medical Records Department Tuesday through Tuesday between 8a.m. and 4:30p.m. Please follow the directions below to access the portal: 1.Access the email account you provided upon registration to the [facility].2.Look for an invitation email from [facility].3.Open the email and access the invitation link: Accept Invitation to [facility].Fill in the required ortega to create your account. Sign into [email or web address] with your username and password that you created in the above steps to stay up to date. You can then view a summary of results, a summary of your visits, and the ability to download your summaries to your computer or send the information securely to a physician. Remember that your healthcare information is confidential, so carefully consider who you will allow to register on the [facility] Patient Portal for access to your information. You can also access the [facility] Patient Portal on the [employer]. Simply click on Health Records under Access Media 3 and then click on the [facility] logo. HOW TO SAFELY DISPOSE OF PRESCRIPTION MEDICATIONS Please use one of the following methods to safely dispose of your unused medications. 1.Use a drug disposal kit: the drug disposal pouch allows you to safely discard your old and unuseddrugs. Ask your nurse to give you one when you are discharged.2.Visit a local take-back location: Many local pharmacies and police departments have programs that collect old and unwanted prescriptiondrugs. Call your local pharmacy or go to http://[employer].Folloze/5X1Ae3s to find one close to you.3.Make use of household items: Use cat litter or old coffee grounds to dispose medications if other options arenot available. Mix your drugs with these household products, seal them in an airtight container andthrow it into the garbage. Call [facility]: [phone] to be sure your drugs can be disposed of in this way. Some medicines may require a different approach.4.Never flush your medications down the toilet. IF YOU HAVE BEEN PRESCRIBED AN OPIOIDS FOR PAIN If you have been prescribed an opioid (such as hydrocodone, oxycodone or morphine), it is critical to understand the possible side effects and risks of opioid pain medications. Even when taken as directed, opioids can have several side effects including: Tolerance, meaning you might need to take more of a medication for the same pain relief. Nausea, vomiting and/or constipation. Sleepiness, dizziness, dry mouth, confusion, depression or itching. Physical dependence, meaning you have withdrawal symptoms when a medication is stopped ? this can develop within a few days. KNOW YOUR RESPONSIBILITIES It is important to know exactly how much and how often to take the opioid pain medications you are prescribed. Never take opioids in higher amounts or more often than prescribed. Do not combine opioids with alcohol or other drugs that cause drowsiness, such as benzodiazepines, also known as benzos,including diazepam and alprazolam, muscle relaxants or sleep aids. Never sell or share prescriptionopioids. This is illegal. Store opioids in a secure place and out of reach of others (including children, family, friends and visitors). The last page(s) of this document has been signed and retained as a CHART COPY Signatures Patient Education Materials Bladder Infection, Male (Adult) Medication Leaflets cephalexin My discharge plan and instructions have been reviewed and explained to me and I,JAYLEN GALAVIZ understand my current condition and have read and understand these discharge instructions. I have received a written copy of the plan/instructions. If I have questions, I am aware that I should contact my doctor. 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 Signature: Date/Time: Relationship to Patient: Witness Name/Signature: Date/Time: [facility] [id number] Hospital Discharge instructions Patient Education 09/06/2023 14:37:15 Leg Swelling in a Single Leg Leg Swelling in a Single Leg Swelling of the arms, feet, ankles, and legs is called edema. It is caused by extra fluid collecting in the tissues. Because of gravity, extra fluid in the body settles to the lowest part. That is why the legs and feet are most affected. You have swelling in a single leg. Some of the causes for swelling in only a single leg include: Infection in the foot or leg Long-term problem with a vein not working well (venous insufficiency) Swollen, twisted vein in the leg (varicose veins) Insect bite or sting on the foot or leg Injury or recent surgery on the foot or leg Blood clot in a deep vein of the leg (deep vein thrombosis or DVT) Inflammation of the joints of the lower leg Medical treatment will depend on what is causing your swelling. Home care Follow these guidelines when caring for yourself at home: Don t wear tight clothing. Keep your legs up while lying or sitting. Take any medicines as directed. If infection, injury, or recent surgery is the cause of your swelling, stay off your legs as much as possible until your symptoms get better. If you have venous insufficiency or varicose veins, don t sit or director medical writing one place for long periods of time. Take breaks and walk around every few hours. Talk with your healthcare provider about wearing support stockings to help lessen swelling during the day. Wear compression stockings with your doctor's approval Follow-up care Follow up with your healthcare provider as advised. Call 911 Call 911 if any of these occur: Shortness of breath or trouble breathing Chest pain Coughing up blood Fainting or loss of consciousness When to seek medical advice Call your healthcare provider right away if any of these occur: Increased pain, swelling, warmth, or redness of the leg, ankle, or foot Fever of 100.4 F (38 C) or higher, or as directed by your healthcare provider Weakness or dizziness Shaking chills Drenching sweats [phone] [employer]. [address] [place] [address], [place] [address]. All rights reserved. This information is not intended as a substitute for professional medical care. Always follow yourhealthcare professional's instructions. Follow Up Care 09/06/2023 11:50:37 With:JAKI FLEMING DO, Internal Medicine, [facility] Address: [address] [place] [address] [phone] When:2-4 days [facility] 01-02-2024 Emergency department Discharge summary Discharge Instructions Thank you for allowing [facility] to assist you with your healthcare needs. The following is importantdischarge information regarding your hospital visit. Diagnosis from Today's Visit Leg pain-swelling What to Do Next Instructions from Your Care Team No qualifying data available. Post Acute Orders No qualifying data available. You Need to Schedule the Following Appointments Follow Up with JAKI FLEMING DO, Internal Medicine, [facility] When Within 2-4 days Where: [address] [place] [phone] Allergies NKA Medications Please ask your primary doctor or pharmacist before taking any other medication not listed, including over the counter drugs, herbal medications, vitamins and or supplements as they may interact withyour home medications. What How Much When Instructions Last Dose Unchanged acetaminophen- diphenhydramine (Tylenol PM ExtraStrength oral tablet) 2 tab(s) by mouth Daily at bedtime as needed for as needed for sleep Unchanged apixaban (Eliquis 2.5 mg oral tablet) 1 tab(s) by mouth Two (2) times a day Duration: 14 Days Unchanged aspirin (aspirin 81 mg oral tablet, chewable) 1 tab(s) by mouth Once a day (in the morning) Unchanged cholecalciferol (Vitamin D3 50 mcg (2000 intl units) oral capsule) 1 cap by mouth Once a day Unchanged glimepiride (Amaryl 1 mg oral tablet) 1 tab(s) by mouth Two (2) times a day Unchanged leflunomide (leflunomide 10 mg oral tablet) 1 tab(s) by mouth Once a day (in the morning) Unchanged lisinopril (lisinopril 40 mg oral tablet) 1 tab(s) by mouth Daily at bedtime Unchanged metformin-sitagliptin (Janumet 50 / 1000 mg oral tablet) 1 tab(s) by mouth Two (2) times a day Unchanged multivitamin (Multivitamin) 1 tab(s) by mouth Every day Unchanged vitamin E (vitamin E 400 intl units oral capsule) 1 cap by mouth Every day Please take this list to your next doctor s visit. Bring all medications you take, including over the counter medications, herbals and other supplements with you to your doctor s visit. Patients and families are reminded to discard old lists and to update any records with all medication providers or retail pharmacies. Education Materials Leg Swelling in a Single Leg Swelling of the arms, feet, ankles, and legs is called edema. It is caused by extra fluid collecting in the tissues. Because of gravity, extra fluid in the body settles to the lowest part. That is why the legs and feet are most affected. You have swelling in a single leg. Some of the causes for swelling in only a single leg include: Infection in the foot or leg Long-term problem with a vein not working well (venous insufficiency) Swollen, twisted vein in the leg (varicose veins) Insect bite or sting on the foot or leg Injury or recent surgery on the foot or leg Blood clot in a deep vein of the leg (deep vein thrombosis or DVT) Inflammation of the joints of the lower leg Medical treatment will depend on what is causing your swelling. Home care Follow these guidelines when caring for yourself at home: Don t wear tight clothing. Keep your legs up while lying or sitting. Take any medicines as directed. If infection, injury, or recent surgery is the cause of your swelling, stay off your legs as much as possible until your symptoms get better. If you have venous insufficiency or varicose veins, don t sit or director medical writing one place for long periods of time. Take breaks and walk around every few hours. Talk with your healthcare provider about wearing support stockings to help lessen swelling during the day. Wear compression stockings with your doctor's approval Follow-up care Follow up with your healthcare provider as advised. Call 911 Call 911 if any of these occur: Shortness of breath or trouble breathing Chest pain Coughing up blood Fainting or loss of consciousness When to seek medical advice Call your healthcare provider right away if any of these occur: Increased pain, swelling, warmth, or redness of the leg, ankle, or foot Fever of 100.4 F (38 C) or higher, or as directed by your healthcare provider Weakness or dizziness Shaking chills Drenching sweats [phone] [employer]. [address] [place] [address]. All rights reserved. This information is not intended as a substitute for professional medical care. Always follow yourhealthcare professional's instructions. Additional Information VACCINATE! IT SAVES LIVES! Members of the community who have not yet received the COVID-19 vaccine and would like to receive it can visit one of [facility] vaccine clinics. There are many vaccine clinic locations within the [facility]. For locations and available times, please visit www.[email or web address].[email or web address]/. It is important to note that some COVID mobile vaccine clinics are held outdoors and may be canceled in rainy or stormy conditions. To learn more about pediatric vaccinations (ages 5-11), we invite you to visit the [facility] webpage. https://www.[email or web address].org/pages/[email or web address]-Ejvca-Bedilunnzhj-Txqvrwvakc-[email or web address]-Yza stions.htmlTo learn more about the COVID-19 vaccine, we invite you to visit the CDC website for a list of frequently asked questions. https://www.cdc.gov/coronavirus/2019-ncov/vaccines/faq.html [facility] Patient Portal Access Instructions: Stay connected with your healthcare team and access your personal medical information anytime with the [facility] Patient Portal. If you would like a full copy of your medical records please contact the [facility] Medical Records Department Tuesday through Tuesday between 8a.m. and 4:30p.m. Please follow the directions below to access the portal: 1.Access the email account you provided upon registration to the hospital.2.Look for an invitation email from [facility].3.Open the email and access the invitation link: Accept Invitation to [facility].Fill in the required ortega to create your account. Sign into [email or web address] with your username and password that you created in the above steps to stay up to date. You can then view a summary of results, a summary of your visits, and the ability to download your summaries to your computer or send the information securely to a physician. Remember that your healthcare information is confidential, so carefully consider who you will allow to register on the [facility] Patient Portal for access to your information. You can also access the [facility] Patient Portal on the [employer] jyoti. Simply click on Health Records under Access Media 3 and then click on the [facility] logo. HOW TO SAFELY DISPOSE OF PRESCRIPTION MEDICATIONS Please use one of the following methods to safely dispose of your unused medications. 1.Use a drug disposal kit: the drug disposal pouch allows you to safely discard your old and unuseddrugs. Ask your nurse to give you one when you are discharged.2.Visit a local take-back location: Many local pharmacies and police departments have programs that collect old and unwanted prescriptiondrugs. Call your local pharmacy or go to http://[employer].Folloze/4N1Cn1k to find one close to you.3.Make use of household items: Use cat litter or old coffee grounds to dispose medications if other options arenot available. Mix your drugs with these household products, seal them in an airtight container andthrow it into the garbage. Call [facility]: [phone] to be sure your drugs can be disposed of in this way. Some medicines may require a different approach.4.Never flush your medications down the toilet. IF YOU HAVE BEEN PRESCRIBED AN OPIOIDS FOR PAIN If you have been prescribed an opioid (such as hydrocodone, oxycodone or morphine), it is critical to understand the possible side effects and risks of opioid pain medications. Even when taken as directed, opioids can have several side effects including: Tolerance, meaning you might need to take more of a medication for the same pain relief. Nausea, vomiting and/or constipation. Sleepiness, dizziness, dry mouth, confusion, depression or itching. Physical dependence, meaning you have withdrawal symptoms when a medication is stopped ? this can develop within a few days. KNOW YOUR RESPONSIBILITIES It is important to know exactly how much and how often to take the opioid pain medications you are prescribed. Never take opioids in higher amounts or more often than prescribed. Do not combine opioids with alcohol or other drugs that cause drowsiness, such as benzodiazepines, also known as benzos,including diazepam and alprazolam, muscle relaxants or sleep aids. Never sell or share prescriptionopioids. This is illegal. Store opioids in a secure place and out of reach of others (including children, family, friends and visitors). The last page(s) of this document has been signed and retained as a CHART COPY Signatures Patient Education Materials Leg Swelling in a Single Leg Medication Leaflets My discharge plan and instructions have been reviewed and explained to me and I,JAYLEN GALAVIZ understand my current condition and have read and understand these discharge instructions. I have received a written copy of the plan/instructions. If I have questions, I am aware that I should contact my doctor. 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 Signature: Date/Time: Relationship to Patient: Witness Name/Signature: [facility]Time[id number]* Exam Date Time Procedure Performing Provider Status 09/06/23 1:54 PM VL Venous US/Doppler One Leg (for DVT). Auth (Verified) [facility] 01-02-2024 Note ORIGINAL EXAMINATION: ONE XRAY VIEW OF THE CHEST TECHNIQUE: One view, AP upright COMPARISON: Chest 04/20/2021 HISTORY: ORDERING SYSTEM PROVIDED HISTORY: Reason for Exam: pain FINDINGS: Support devices: None. Cardiomediastinal: The heart is stable in size and configuration. Status post median sternotomy and CABG. Lungs: Low lung volumes with hypoventilatory changes. Bibasilar opacities are noted. No pulmonary edema, consolidation or large pleural effusion is present. Pneumothorax: None Osseous: None no acute osseous pathology. 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 IMPRESSION: Bibasilar opacities likely reflecting subsegmental atelectasis. Interpreted by: Milo Chadwick MD Preliminary Report By: Milo Chadwick MD Electronically signed By Milo Chadwick MD Dictated Date: 09/06/2023 1:56:33 PM Prelim Date: 09/06/2023 1:58:31 PM Sign Date: 09/06/2023 1:58:31 PM Ordering Provider: LUCY [facility]01-02-2024 NoteSINUS RHYTHM ATRIAL PREMATURE COMPLEXES PROLONGED ME INTERVAL INFERIOR INFARCT, OLD Electronic Signature: LASHAE MOULTON MD 09/06/2023 14:36:18[facility] 12-24-2023 Hospital Discharge instructions Patient Education 08/28/2023 14:19:19 Kidney Problems Kidney Problems The kidneys may fail from reduced blood supply, damaged blood vessels or filtering units (nephrons), or a blocked urinary tract. Illnesses that affect the entire body, such as diabetes or high blood pressure, are the most common cause of kidney damage. Illnesses that harm the kidneys directly such as (glomerulonephritis and polycystic disease) may also cause filtering problems. Kidney damage can be temporary or permanent, depending on what caused it. Problems with blood vessels An illness can damage blood vessels inside the kidneys. As a result, the nephrons get less blood, and pressure inside the kidneys can't be controlled. Problems with nephrons Reduced blood supply or the wrong pressure can harm the nephrons. This makes them less able to remove wastes from the blood. As a result, the kidneys can t maintain the proper balance of fluid and chemicals in the body. Waste products may be returned to the blood, or vital chemicals and proteins may be lost in the urine. Problems in the urinary tract A problem with the structure of the urinary tract may be present from . The urinary tract can become blocked any place between the kidney and the urethra (the tube through which urine leaves thebody). There are many reasons for such a blockage including kidney stones, scar tissue from previous infections, or an enlarged prostate gland. Abnormal function of the urinary tract can also lead to damage to the kidney. Examples include backflow of urine from the ureter to the kidney, or a damaged bladder muscle leading to holding urine. If waste can t leave the body, your health is at risk. [id number] [employer]. [address] [place] [address], [place] [address]. All rights reserved. This information is not intended as a substitute for professional medical care. Always follow yourhealthcare professional's instructions. 08/28/2023 14:19:19 Atrial Fibrillation Atrial Fibrillation Atrial fibrillation is a condition in which the heart beats in an irregular pattern. It is caused by a problem in the heart's electrical pathways. It can be a sign of heart disease or other health problems that affect the heart. Heart palpitations are the most common symptom of atrial fibrillation. This is the feeling that your heart is fluttering, beating fast, hard, or irregular. When the heart beats too fast, it doesn't pump blood very well. This can cause other symptoms like anxiety, fatigue, shortness of breath, chestpain, dizziness, or fainting. Atrial fibrillation may come and go. It can last from a few hours to a couple of days. Or, it may become chronic, lasting for months at a time or even become permanent. Atrial fibrillation may be caused by heart disease or other conditions in the body that affect the heart: Coronary artery disease (atherosclerosis) High blood pressure Disease of the heart valves Enlarged heart Heart failure Atrial fibrillation can also occur without heart disease because of: Overactive thyroid (hyperthyroid) Chronic lung disease (COPD, emphysema, bronchitis) Heavy alcohol use Cardiac stimulants like cocaine, amphetamines, diet pills, certain decongestant cold medicines, caffeine, or nicotine Infection Blood clot in the lung (pulmonary embolus) Diabetes Chronic kidney disease Obesity Extreme athletic conditioning Treating or removing these causes will help your treatment for atrial fibrillation. It will also make it less likely for the atrial fibrillation to come back. Atrial fibrillation can alternate back and forth with another abnormal rhythm called atrial flutter. Atrial flutter is a more regular heart rhythm and is also associated with an increased stroke risk. Proper treatment can lower your risk for stroke. Home care Follow these guidelines when caring for yourself at home: Go back to your usual activities as soon as you are feeling back to normal. If you smoke, stop smoking. Contact your healthcare provider or a local stop- smoking program for help. Don't use stimulants like alcohol, cocaine, amphetamines, diet pills, certain decongestant cold medicines, caffeine, or nicotine. If your provider prescribed medicine to stop atrial fibrillation from coming back, take it exactly as directed. Some medicines must be taken every day, not just when you have symptoms. This will helpthem work as they should. If you were prescribed warfarin to lower your risk for stroke, have your blood tested on a regular basis as advised by your provider. This will make sure you are getting the dose that is right for you. It also lower your risk for side effects. Follow-up care Follow up with your healthcare provider, or as advised. When to seek medical advice Call your healthcare provider right away if any of these following occur: Shortness of breath or swelling in the legs gets worse Unexpected weight gain Chest pain or the sense that your heart is fluttering or beating fast or hard (palpitations) Any sign of bleeding if you are on a blood thinner Pain, redness, or swelling in one leg Also call your provider right away if you have these signs of stroke: Weakness of an arm or leg or one side of the face Difficulty with speech or vision Extreme drowsiness, confusion, dizziness, or fainting [phone] [employer]. [address] [place] [address]. All rights reserved. This information is not intended as a substitute for professional medical care. Always follow yourhealthcare professional's instructions. Follow Up Care 08/28/2023 11:46:37 With:CHARMAINE LO Address: [address] [facility] [address] [facility] [place] [address]- [phone] Business (1) When:2-4 days Comments:You are started on a short course of Eliquis for A-fib. As discussed blood thinners make you more prone to bleed. You must be reevaluated closely if any kind of trauma fall or car accident. Your creatinine, a measure of your kidney function, needs to be rechecked in the very near future within the next 3 to 5 days. Drink plenty of fluids. Return if any worsening or concerning symptoms. With:JAKI FLEMING Address: [address] [facility] [place] [address]- [phone] Business (1) When:2-4 days [facility] 12-24-2023 Note Discharge Instructions Thank you for allowing [facility] to assist you with your healthcare needs. The following is importantdischarge information regarding your hospital visit. Diagnosis from Today's Visit MIRYAM (acute kidney injury) Atrial fibrillation Medical screening exam What to Do Next Instructions from Your Care Team No qualifying data available. Post Acute Orders No qualifying data available. You Need to Schedule the Following Appointments Follow Up with CHARMAINE LO When Within 2-4 days Why: You are started on a short course of Eliquis for A-fib. As discussed blood thinners make you more prone to bleed. You must be reevaluated closely if any kind of trauma fall or car accident. Yourcreatinine, a measure of your kidney function, needs to be rechecked in the very near future withinthe next 3 to 5 days. Drink plenty of fluids. Return if any worsening or concerning symptoms. Where: [address] [facility] [address] [facility] [place] [address] [phone] Business (1) Follow Up with JAKI FLEMING When Within 2-4 days Where: [address] [facility] [place] [address]- [phone] Business (1) Allergies NKA Medications Please ask your primary doctor or pharmacist before taking any other medication not listed, including over the counter drugs, herbal medications, vitamins and or supplements as they may interact withyour home medications. What How Much When Instructions Last Dose New apixaban (Eliquis 2.5 mg oral tablet) 1 tab(s) by mouth Two (2) times a day Duration: 14 Days Printed Prescription Unchanged acetaminophen-diphenhydramine (Tylenol PM Extra Strength oral tablet) 2 tab(s) by mouth Daily at bedtime as needed for as needed for sleep Unchanged aspirin (aspirin 81 mg oral tablet, chewable) 1 tab(s) by mouth Once a day (in the morning) Unchanged cholecalciferol (Vitamin D3 50 mcg (2000 intl units) oral capsule) 1 cap by mouth Once a day Unchanged glimepiride (Amaryl 1 mg oral tablet) 1 tab(s) by mouth Two (2) times a day Unchanged leflunomide (leflunomide 10 mg oral tablet) 1 tab(s) by mouth Once a day (in the morning) Unchanged lisinopril (lisinopril 40 mg oral tablet) 1 tab(s) by mouth Daily at bedtime Unchanged metformin-sitagliptin (Janumet 50 / 1000 mg oral tablet) 1 tab(s) by mouth Two (2) times a day Unchanged multivitamin (Multivitamin) 1 tab(s) by mouth Every day Unchanged vitamin E (vitamin E 400 intl units oral capsule) 1 cap by mouth Every day Please take this list to your next doctor s visit. Bring all medications you take, including over the counter medications, herbals and other supplements with you to your doctor s visit. Patients and families are reminded to discard old lists and to update any records with all medication providers or retail pharmacies. Medication Leaflets apixaban (a PIX a ban) Ariannais What is the most important information I should know about apixaban? Apixaban increases your risk of severe or fatal bleeding, especially if you take certain medicines at the same time (including some [id number]-[id number] medicines). Tell your doctor about all medicines you have recently used. Call your doctor at once if you have signs of bleeding such as: easy bruising, unusual bleeding, unexpected pain or swelling, feeling very weak or dizzy, bleeding gums, nosebleeds, heavy menstrual bleeding, blood in your urine or stools, coughing up blood or vomit that looks like coffee grounds, orany bleeding that will not stop. Apixaban can cause a very serious blood clot around your spinal cord that can lead to long-term or permanent paralysis. This type of blood clot can occur during a spinal tap or spinal anesthesia (epidural), especially if you have a genetic spinal defect, if you use a spinal catheter, if you've had spinal surgery or repeated spinal taps, or if you use other drugs that can affect blood clotting. Get emergency medical help if you have symptoms of a spinal cord blood clot such as tingling, numbness, or muscle weakness especially in your legs and feet. Do not stop taking apixaban unless your doctor tells you to. Stopping suddenly can increase your risk of blood clot or stroke. What is apixaban? Apixaban is used to lower the risk of stroke caused by a blood clot in people with a heart rhythm disorder called atrial fibrillation. Apixaban is also used after hip or knee replacement surgery to prevent a type of blood clot called deep vein thrombosis (DVT), which can lead to blood clots in the lungs (pulmonary embolism). Apixaban is also used to treat DVT or pulmonary embolism (PE), and to lower your risk of having a repeat DVT or PE. Apixaban may also be used for purposes not listed in this medication guide. What should I discuss with my healthcare provider before taking apixaban? You should not take apixaban if you are allergic to it, or if you have active bleeding from a surgery, injury, or other cause. Apixaban may cause you to bleed more easily, especially if you have a bleeding disorder that is inherited or caused by disease. Tell your doctor if you have an artificial heart valve, or if you have ever had: bleeding problems; antiphospholipid syndrome, especially if you have a triple positive antibody test; or liver or kidney disease. Apixaban can cause a very serious blood clot around your spinal cord if you undergo a spinal tap orreceive spinal anesthesia (epidural). This type of blood clot could cause long-term paralysis, and may be more likely to occur if: you have a spinal catheter in place or if a catheter has been recently removed; you have a history of spinal surgery or repeated spinal taps; you have recently had a spinal tap or epidural anesthesia; you take aspirin or other NSAIDs (nonsteroidal anti-inflammatory drugs)--ibuprofen (Advil, Motrin),naproxen (Aleve), diclofenac, indomethacin, meloxicam, and others; or you are using other medicines to treat or prevent blood clots. Taking apixaban may increase the risk of bleeding while you are or during your delivery. Tell your doctor if you are or plan to become . Do not breastfeed. How should I take apixaban? Follow all directions on your prescription label and read all medication guides or instruction sheets. Your doctor may occasionally change your dose. Use the medicine exactly as directed. You may take apixaban with or without food. If you cannot swallow a tablet whole, crush it and mix with water, apple juice, or applesauce. Swallow the mixture right away without chewing. A crushed tablet mixture may also be given through a nasogastric (NG) feeding tube. Read and carefully follow any Instructions for Use provided with your medicine. Apixaban can make it easier for you to bleed, even from a minor injury. Seek medical attention if you have bleeding that will not stop. Tell your doctor if you have a planned surgery or dental work. You may need to stop taking apixabanfor a short time. Do not stop taking apixaban unless your doctor tells you to. If you stop taking apixaban for any reason, your doctor may prescribe another medicine to prevent blood clots. Store at room temperature away from moisture and heat. What happens if I miss a dose? Take the missed dose on the same day you remember it. Take your next dose at the regular time and stay on your twice-daily schedule. Do not take two doses at one time. Get your prescription refilled before you run out of medicine completely. What happens if I overdose? Seek emergency medical attention or call the Poison Help line at . What should I avoid while taking apixaban? Avoid activities that may increase your risk of bleeding or injury. Use extra care while shaving orbrushing your teeth. What are the possible side effects of apixaban? Get emergency medical help if you have signs of an allergic reaction: hives; chest pain, wheezing, difficult breathing; feeling light-headed; swelling of your face, lips, tongue, or throat. Also seek emergency medical attention if you have symptoms of a spinal blood clot such as tingling,numbness, or muscle weakness especially in your legs and feet. Call your doctor at once if you have: easy bruising, unusual bleeding (nose, mouth, vagina, or rectum), bleeding from wounds or needle injections, any bleeding that will not stop; heavy menstrual bleeding; headache, dizziness, weakness, feeling like you might pass out; urine that looks red, pink, or brown; or black or bloody stools, coughing up blood or vomit that looks like coffee grounds. This is not a complete list of side effects and others may occur. Call your doctor for medical advice about side effects. You may report side effects to FDA at [phone]-4329. What other drugs will affect apixaban? Sometimes it is not safe to use certain medications at the same time. Some drugs can affect your blood levels of other drugs you take, which may increase side effects or make the medications less effective. Many other drugs (including some sxml-yek-joltmgq medicines) can increase your risk of bleeding or blood clots. Tell your doctor about all medicines you have recently used, especially: any other medicines to treat or prevent blood clots; a blood thinner such as heparin or warfarin (Coumadin, Jantoven); an antidepressant; or aspirin or other NSAID (nonsteroidal anti-inflammatory drug) used terminal system operator. This list is not complete and many other drugs may affect apixaban. This includes prescription and jfxn-nyg-dagrstz medicines, vitamins, and herbal products. Not all possible drug interactions are listed here. Where can I get more information? Your pharmacist can provide more information about apixaban. Remember, keep this and all other medicines out of the reach of children, never share your medicines with others, and use this medication only for the indication prescribed. Every effort has been made to ensure that the information provided by [employer]. ('[employer]') is accurate, up-to-date, and complete, but no guarantee is made to that effect. Drug information contained herein may be time sensitive. [employer] information has been compiled for use by healthcare practitioners and consumers in the [place] and therefore [employer] does not warrant that uses outside of the [place] are appropriate, unless specifically indicated otherwise. [employer] drug information does not endorse drugs, diagnose patients or recommend therapy. [employer] drug information isan informational resource designed to assist licensed healthcare practitioners in caring for their p atients and/or to serve consumers viewing this service as a supplement to, and not a substitute for, the expertise, skill, knowledge and judgment of healthcare practitioners. The absence of a warningfor a given drug or drug combination in no way should be construed to indicate that the drug or drug combination is safe, effective or appropriate for any given patient. [employer] does not assume any responsibility for any aspect of healthcare administered with the aid of information [employer] provides. The information contained herein is not intended to cover all possible uses, directions, precautions, warnings, drug interactions, allergic reactions, or adverse effects. If you have questions about the drugs you are taking, check with your doctor, nurse or pharmacist. Copyright 8858-6184 [employer]. Version: 6.01. Revision Date: 04/28/2021. Education Materials Kidney Problems The kidneys may fail from reduced blood supply, damaged blood vessels or filtering units (nephrons), or a blocked urinary tract. Illnesses that affect the entire body, such as diabetes or high blood pressure, are the most common cause of kidney damage. Illnesses that harm the kidneys directly such as (glomerulonephritis and polycystic disease) may also cause filtering problems. Kidney damage can be temporary or permanent, depending on what caused it. Problems with blood vessels An illness can damage blood vessels inside the kidneys. As a result, the nephrons get less blood, and pressure inside the kidneys can't be controlled. Problems with nephrons Reduced blood supply or the wrong pressure can harm the nephrons. This makes them less able to remove wastes from the blood. As a result, the kidneys can t maintain the proper balance of fluid and chemicals in the body. Waste products may be returned to the blood, or vital chemicals and proteins may be lost in the urine. Problems in the urinary tract A problem with the structure of the urinary tract may be present from . The urinary tract can become blocked any place between the kidney and the urethra (the tube through which urine leaves thebody). There are many reasons for such a blockage including kidney stones, scar tissue from previous infections, or an enlarged prostate gland. Abnormal function of the urinary tract can also lead to damage to the kidney. Examples include backflow of urine from the ureter to the kidney, or a damaged bladder muscle leading to holding urine. If waste can t leave the body, your health is at risk. 8940-3652 [employer]. [address] [place] [address]. All rights reserved. This information is not intended as a substitute for professional medical care. Always follow yourhealthcare professional's instructions. Atrial Fibrillation Atrial fibrillation is a condition in which the heart beats in an irregular pattern. It is caused by a problem in the heart's electrical pathways. It can be a sign of heart disease or other health problems that affect the heart. Heart palpitations are the most common symptom of atrial fibrillation. This is the feeling that your heart is fluttering, beating fast, hard, or irregular. When the heart beats too fast, it doesn't pump blood very well. This can cause other symptoms like anxiety, fatigue, shortness of breath, chestpain, dizziness, or fainting. Atrial fibrillation may come and go. It can last from a few hours to a couple of days. Or, it may become chronic, lasting for months at a time or even become permanent. Atrial fibrillation may be caused by heart disease or other conditions in the body that affect the heart: Coronary artery disease (atherosclerosis) High blood pressure Disease of the heart valves Enlarged heart Heart failure Atrial fibrillation can also occur without heart disease because of: Overactive thyroid (hyperthyroid) Chronic lung disease (COPD, emphysema, bronchitis) Heavy alcohol use Cardiac stimulants like cocaine, amphetamines, diet pills, certain decongestant cold medicines, caffeine, or nicotine Infection Blood clot in the lung (pulmonary embolus) Diabetes Chronic kidney disease Obesity Extreme athletic conditioning Treating or removing these causes will help your treatment for atrial fibrillation. It will also make it less likely for the atrial fibrillation to come back. Atrial fibrillation can alternate back and forth with another abnormal rhythm called atrial flutter. Atrial flutter is a more regular heart rhythm and is also associated with an increased stroke risk. Proper treatment can lower your risk for stroke. Home care Follow these guidelines when caring for yourself at home: Go back to your usual activities as soon as you are feeling back to normal. If you smoke, stop smoking. Contact your healthcare provider or a local stop- smoking program for help. Don't use stimulants like alcohol, cocaine, amphetamines, diet pills, certain decongestant cold medicines, caffeine, or nicotine. If your provider prescribed medicine to stop atrial fibrillation from coming back, take it exactly as directed. Some medicines must be taken every day, not just when you have symptoms. This will helpthem work as they should. If you were prescribed warfarin to lower your risk for stroke, have your blood tested on a regular basis as advised by your provider. This will make sure you are getting the dose that is right for you. It also lower your risk for side effects. Follow-up care Follow up with your healthcare provider, or as advised. When to seek medical advice Call your healthcare provider right away if any of these following occur: Shortness of breath or swelling in the legs gets worse Unexpected weight gain Chest pain or the sense that your heart is fluttering or beating fast or hard (palpitations) Any sign of bleeding if you are on a blood thinner Pain, redness, or swelling in one leg Also call your provider right away if you have these signs of stroke: Weakness of an arm or leg or one side of the face Difficulty with speech or vision Extreme drowsiness, confusion, dizziness, or fainting 1352-7656 [employer]. [address] [place] [address]. All rights reserved. This information is not intended as a substitute for professional medical care. Always follow yourhealthcare professional's instructions. Additional Information VACCINATE! IT SAVES LIVES! Members of the community who have not yet received the COVID-19 vaccine and would like to receive it can visit one of [facility] vaccine clinics. There are many vaccine clinic locations within the [facility]. For locations and available times, please visit [email or web address] It is important to note that some COVID mobile vaccine clinics are held outdoors and may be canceled in rainy or stormy conditions. To learn more about pediatric vaccinations (ages 5-11), we invite you to visit the [facility] webpage. [email or web address] learn more about the COVID-19 vaccine, we invite you to visit the CDC website for a list of frequently asked questions. https://www.cdc.gov/coronavirus/2019-ncov/vaccines/faq.html [facility] Patient [facility] Access Instructions: Stay connected with your healthcare team and access your personal medical information anytime with the [facility] Patient Portal. If you would like a full copy of your medical records please contact the [facility] Medical Records Department Tuesday through Tuesday between 8a.m. and 4:30p.m. Please follow the directions below to access the portal: 1.Access the email account you provided upon registration to the hospital.2.Look for an invitation email from [facility].3.Open the email and access the invitation link: Accept Invitation to [facility].Fill in the required ortega to create your account. Sign into [email or web address] with your username and password that you created in the above steps to stay up to date. You can then view a summary of results, a summary of your visits, and the ability to download your summaries to your computer or send the information securely to a physician. Remember that your healthcare information is confidential, so carefully consider who you will allow to register on the [facility] Patient Portal for access to your information. You can also access the [facility] Patient Portal on the [employer]. Simply click on Health Records under [employer] and then click on the [facility] logo. HOW TO SAFELY DISPOSE OF PRESCRIPTION MEDICATIONS Please use one of the following methods to safely dispose of your unused medications. 1.Use a drug disposal kit: the drug disposal pouch allows you to safely discard your old and unuseddrugs. Ask your nurse to give you one when you are discharged.2.Visit a local take-back location: Many local pharmacies and police departments have programs that collect old and unwanted prescriptiondrugs. Call your local pharmacy or go to http://[employer].Folloze/6W1By1i to find one close to you.3.Make use of household items: Use cat litter or old coffee grounds to dispose medications if other options arenot available. Mix your drugs with these household products, seal them in an airtight container andthrow it into the garbage. Call [facility]: [phone] to be sure your drugs can be disposed of in this way. Some medicines may require a different approach.4.Never flush your medications down the toilet. IF YOU HAVE BEEN PRESCRIBED AN OPIOIDS FOR PAIN If you have been prescribed an opioid (such as hydrocodone, oxycodone or morphine), it is critical to understand the possible side effects and risks of opioid pain medications. Even when taken as directed, opioids can have several side effects including: Tolerance, meaning you might need to take more of a medication for the same pain relief. Nausea, vomiting and/or constipation. Sleepiness, dizziness, dry mouth, confusion, depression or itching. Physical dependence, meaning you have withdrawal symptoms when a medication is stopped ? this can develop within a few days. KNOW YOUR RESPONSIBILITIES It is important to know exactly how much and how often to take the opioid pain medications you are prescribed. Never take opioids in higher amounts or more often than prescribed. Do not combine opioids with alcohol or other drugs that cause drowsiness, such as benzodiazepines, also known as benzos,including diazepam and alprazolam, muscle relaxants or sleep aids. Never sell or share prescriptionopioids. This is illegal. Store opioids in a secure place and out of reach of others (including children, family, friends and visitors). The last page(s) of this document has been signed and retained as a CHART COPY Signatures Patient Education Materials Kidney Problems Atrial Fibrillation Medication Leaflets apixaban My discharge plan and instructions have been reviewed and explained to me and I,JAYLEN GALAVIZ understand my current condition and have read and understand these discharge instructions. I have received a written copy of the plan/instructions. If I have questions, I am aware that I should contact my doctor. 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 Signature: Date/Time: Relationship to Patient: Witness Name/Signature: Date/Time: [facility]12-24-2023 NoteSinus or ectopic atrial rhythm Atrial premature complexes in couplets Prolonged ME interval Inferior infarct, old Lateral leads are also involved Baseline wander in lead(s) V2 Electronic Signature: MAJO HOLDER MD 08/28/2023 12:02:59[facility] 09-27-2023 Hospital Discharge instructions Patient Education 06/01/2023 02:33:55 Diet for Vomiting or Diarrhea (Adult) Diet for Vomiting or Diarrhea (Adult) Your symptoms may return or get worse after eating certain foods listed below. If this happens, stop eating these foods until your symptoms ease and you feel better. Once the vomiting stops, follow the steps below. During the first 12 to 24 hours During the first 12 to 24 hours, follow this diet: Drinks. Plain water, sport drinks like electrolyte solutions, soft drinks without caffeine, mineralwater (plain or flavored), clear fruit juices, and decaffeinated tea and coffee. Soups. Clear broth. Desserts. Plain gelatin, popsicles, and fruit juice bars. As you feel better, you may add 6 to 8 ounces of yogurt per day. If you have diarrhea, don't have foods or drinks that contain sugar, high-fructose corn syrup, or sugar alcohols. During the next 24 hours During the next 24 hours you may add the following to the above: Hot cereal, plain toast, bread, rolls, and crackers Plain noodles, rice, mashed potatoes, and chicken noodle or rice soup Unsweetened canned fruit (but not pineapple) and bananas Don't eat more than 15 grams of fat a day. Do this by staying away from margarine, butter, oils, mayonnaise, sauces, gravies, fried foods, peanut butter, meat, poultry, and fish. Don't eat much fiber. Stay away from raw or cooked vegetables, fresh fruits (except bananas), and bran cereals. Limit how much caffeine and chocolate you have. Do not use any spices or seasonings except salt. During the next 24 hours Slowly go back to your normal diet, as you feel better and your symptoms ease. [id number] [employer]. [address] [place] [address], [place] [id number]. All rights reserved. This information is not intended as a substitute for professional medical care. Always follow yourhealthcare professional's instructions. 06/01/2023 02:33:41 Gastroenteritis, Viral (Adult) Viral Gastroenteritis (Adult) Gastroenteritis is commonly called the stomach flu, although it has nothing to do with influenza.It is most often caused by a virus that affects the stomach and intestinal tract and usually lasts from 2 to 7 days. Common viruses causing gastroenteritis include norovirus, rotavirus, and hepatitisA. Non-viral causes of gastroenteritis include bacteria, parasites, and toxins. The danger from repeated vomiting or diarrhea is dehydration. This is the loss of too much fluid from the body. When this occurs, body fluids must be replaced. Antibiotics don't help with this illness because it is usually viral. Simple home treatment will be helpful. Symptoms of viral gastroenteritis may include: Watery, loose stools Stomach pain or abdominal cramps Fever and chills Nausea and vomiting Loss of bowel control Headache Home care Gastroenteritis is transmitted by contact with the stool or vomit of an infected person. This can occur from person to person or from contact with a contaminated surface. Follow these guidelines when caring for yourself at home: If symptoms are severe, rest at home for the next 24 hours or until you are feeling better. Wash your hands with soap and water or use alcohol-based organ tuner electronic to prevent the spread of infection. Wash your hands after touching anyone who is sick. Wash your hands or use alcohol-based organ tuner electronic after using the toilet and before meals. Clean the toilet after each use. Remember these tips when preparing food: People with diarrhea should not prepare or serve food to others. When preparing foods, wash your hands before and after. Wash your hands after using cutting boards, countertops, knives, or utensils that have been in contact with raw food. Dry your hands with a single use towel. Keep uncooked meats away from cooked and vokzm-bp-vme foods. Medicine You may use acetaminophen or NSAID medicines like ibuprofen or naproxen to control fever unless another medicine was given. If you have chronic liver or kidney disease, talk with your healthcare provider before using these medicines. Also talk with your provider if you've had a stomach ulcer or gastrointestinal bleeding. Don't give aspirin to anyone under 18 years of age who is ill with a fever. It may cause severe liver damage. Don't use NSAIDS is you are already taking one for another condition (like arthritis) or are on aspirin (such as for heart disease or after a stroke). If medicine for vomiting or diarrhea are prescribed, take these only as directed. Nausea and diarrhea medicines are generally OK unless you have bleeding, fever, or severe abdominal pain. Diet Follow these guidelines for food: Water and liquids are important so you don't get dehydrated. Drink a small amount at a time or suckon ice chips if you are vomiting. If you eat, avoid fatty, greasy, spicy, or fried foods. Don't eat dairy if you have diarrhea. This can make diarrhea worse. Avoid tobacco, alcohol, and caffeine which may worsen symptoms. During the first 24 hours (the first full day), follow the diet below: Beverages. Sports drinks, soft drinks without caffeine, landy kris, mineral water (plain or flavored), decaffeinated tea and coffee. If you are very dehydrated, sports drinks aren't a good choice. They have too much sugar and not enough electrolytes. In this case, commercially available products called oral rehydration solutions, are best. Soups. Eat clear broth, consomm , and bouillon. Desserts. Eat gelatin, ice pops, and fruit juice bars. During the next 24 hours (the second day), you may add the following to the above: Hot cereal, plain toast, bread, rolls, and crackers Plain noodles, rice, mashed potatoes, chicken noodle or rice soup Unsweetened canned fruit (avoid pineapple), bananas Limit fat intake to less than 15 grams per day. Do this by avoiding margarine, butter, oils, mayonnaise, sauces, gravies, fried foods, peanut butter, meat, poultry, and fish. Limit fiber and avoid raw or cooked vegetables, fresh fruits (except bananas), and bran cereals. Limit caffeine and chocolate. Don't use spices or seasonings other than salt. Limit dairy products. Avoid alcohol. During the next 24 hours: Gradually resume a normal diet as you feel better and your symptoms improve. If at any time it starts getting worse again, go back to clear liquids until you feel better. Follow-up care Follow up with your healthcare provider, or as advised. Call your provider if you don't get better within 24 hours or if diarrhea lasts more than a week. Also follow up if you are unable to keep downliquids and get dehydrated. If a stool (diarrhea) sample was taken, call as directed for the results. Call 911 Call 911 if any of these occur: Trouble breathing Chest pain Confused Severe drowsiness or trouble awakening Fainting or loss of consciousness Rapid heart rate Seizure Stiff neck When to seek medical advice Call your healthcare provider right away if any of these occur: Abdominal pain that gets worse Continued vomiting (unable to keep liquids down) Frequent diarrhea (more than 5 times a day) Blood in vomit or stool (black or red color) Dark urine, reduced urine output, or extreme thirst Weakness or dizziness Drowsiness Fever of 100.4 F (38 C) or higher, or as directed by your healthcare provider Royer gusman [id number] [employer]. [address] [place] [id number]. All rights reserved. This information is not intended as a substitute for professional medical care. Always follow yourhealthcare professional's instructions. 06/01/2023 02:33:36 Gastroenteritis, Viral (Adult) Viral Gastroenteritis (Adult) Gastroenteritis is commonly called the stomach flu, although it has nothing to do with influenza.It is most often caused by a virus that affects the stomach and intestinal tract and usually lasts from 2 to 7 days. Common viruses causing gastroenteritis include norovirus, rotavirus, and hepatitisA. Non-viral causes of gastroenteritis include bacteria, parasites, and toxins. The danger from repeated vomiting or diarrhea is dehydration. This is the loss of too much fluid from the body. When this occurs, body fluids must be replaced. Antibiotics don't help with this illness because it is usually viral. Simple home treatment will be helpful. Symptoms of viral gastroenteritis may include: Watery, loose stools Stomach pain or abdominal cramps Fever and chills Nausea and vomiting Loss of bowel control Headache Home care Gastroenteritis is transmitted by contact with the stool or vomit of an infected person. This can occur from person to person or from contact with a contaminated surface. Follow these guidelines when caring for yourself at home: If symptoms are severe, rest at home for the next 24 hours or until you are feeling better. Wash your hands with soap and water or use alcohol-based organ tuner electronic to prevent the spread of infection. Wash your hands after touching anyone who is sick. Wash your hands or use alcohol-based organ tuner electronic after using the toilet and before meals. Clean the toilet after each use. Remember these tips when preparing food: People with diarrhea should not prepare or serve food to others. When preparing foods, wash your hands before and after. Wash your hands after using cutting boards, countertops, knives, or utensils that have been in contact with raw food. Dry your hands with a single use towel. Keep uncooked meats away from cooked and jcpuy-dk-lza foods. Medicine You may use acetaminophen or NSAID medicines like ibuprofen or naproxen to control fever unless another medicine was given. If you have chronic liver or kidney disease, talk with your healthcare provider before using these medicines. Also talk with your provider if you've had a stomach ulcer or gastrointestinal bleeding. Don't give aspirin to anyone under 18 years of age who is ill with a fever. It may cause severe liver damage. Don't use NSAIDS is you are already taking one for another condition (like arthritis) or are on aspirin (such as for heart disease or after a stroke). If medicine for vomiting or diarrhea are prescribed, take these only as directed. Nausea and diarrhea medicines are generally OK unless you have bleeding, fever, or severe abdominal pain. Diet Follow these guidelines for food: Water and liquids are important so you don't get dehydrated. Drink a small amount at a time or suckon ice chips if you are vomiting. If you eat, avoid fatty, greasy, spicy, or fried foods. Don't eat dairy if you have diarrhea. This can make diarrhea worse. Avoid tobacco, alcohol, and caffeine which may worsen symptoms. During the first 24 hours (the first full day), follow the diet below: Beverages. Sports drinks, soft drinks without caffeine, landy kris, mineral water (plain or flavored), decaffeinated tea and coffee. If you are very dehydrated, sports drinks aren't a good choice. They have too much sugar and not enough electrolytes. In this case, commercially available products called oral rehydration solutions, are best. Soups. Eat clear broth, consomm , and bouillon. Desserts. Eat gelatin, ice pops, and fruit juice bars. During the next 24 hours (the second day), you may add the following to the above: Hot cereal, plain toast, bread, rolls, and crackers Plain noodles, rice, mashed potatoes, chicken noodle or rice soup Unsweetened canned fruit (avoid pineapple), bananas Limit fat intake to less than 15 grams per day. Do this by avoiding margarine, butter, oils, mayonnaise, sauces, gravies, fried foods, peanut butter, meat, poultry, and fish. Limit fiber and avoid raw or cooked vegetables, fresh fruits (except bananas), and bran cereals. Limit caffeine and chocolate. Don't use spices or seasonings other than salt. Limit dairy products. Avoid alcohol. During the next 24 hours: Gradually resume a normal diet as you feel better and your symptoms improve. If at any time it starts getting worse again, go back to clear liquids until you feel better. Follow-up care Follow up with your healthcare provider, or as advised. Call your provider if you don't get better within 24 hours or if diarrhea lasts more than a week. Also follow up if you are unable to keep downliquids and get dehydrated. If a stool (diarrhea) sample was taken, call as directed for the results. Call 911 Call 911 if any of these occur: Trouble breathing Chest pain Confused Severe drowsiness or trouble awakening Fainting or loss of consciousness Rapid heart rate Seizure Stiff neck When to seek medical advice Call your healthcare provider right away if any of these occur: Abdominal pain that gets worse Continued vomiting (unable to keep liquids down) Frequent diarrhea (more than 5 times a day) Blood in vomit or stool (black or red color) Dark urine, reduced urine output, or extreme thirst Weakness or dizziness Drowsiness Fever of 100.4 F (38 C) or higher, or as directed by your healthcare provider Royer gusman [id number] [employer]. [address] [place] [address]. All rights reserved. This information is not intended as a substitute for professional medical care. Always follow yourhealthcare professional's instructions. Follow Up Care 05/31/2023 23:06:56 With:JAKI FLEMING DO, Internal Medicine, [facility] Address: [address] [place] [address] [place] [address]- [phone] When:2-4 days [facility] 09-27-2023 Emergency department Discharge summary Discharge Instructions Thank you for allowing [facility] to assist you with your healthcare needs. The following is importantdischarge information regarding your hospital visit. Diagnosis from Today's Visit Diarrhea Vomiting What to Do Next Instructions from Your Care Team No qualifying data available. Post Acute Orders No qualifying data available. You Need to Schedule the Following Appointments Follow Up with JAKI FLEMING DO, Internal Medicine, [facility] When Within 2-4 days Where: [address] [place] [phone] Allergies NKA Medications Please ask your primary doctor or pharmacist before taking any other medication not listed, including over the counter drugs, herbal medications, vitamins and or supplements as they may interact withyour home medications. What How Much When Instructions Last Dose New loperamide (Imodium A-D 2 mg oral tablet) 1 tab(s) by mouth Every 4 hours Duration: 2 Days Printed Prescription New ondansetron (Zofran 4 mg oral tablet) 1 tab(s) by mouth Every 6 hours Duration: 2 Days Printed Prescription Unchanged acetaminophen-diphenhydramine (Tylenol PM Extra Strength oral tablet) 2 tab(s) by mouth Daily at bedtime as needed for as needed for sleep Unchanged aspirin (aspirin 81 mg oral tablet, chewable) 1 tab(s) by mouth Once a day (in the morning) Unchanged bicalutamide (Casodex 50 mg oral tablet) 1 tab(s) by mouth Every 24 hours Unchanged cholecalciferol (Vitamin D3 50 mcg (2000 intl units) oral capsule) 1 cap by mouth Once a day Unchanged glimepiride (Amaryl 1 mg oral tablet) 1 tab(s) by mouth Two (2) times a day Unchanged leflunomide (leflunomide 10 mg oral tablet) 1 tab(s) by mouth Once a day (in the morning) Unchanged lisinopril (lisinopril 40 mg oral tablet) 1 tab(s) by mouth Daily at bedtime Unchanged metformin-sitagliptin (Janumet 50 / 1000 mg oral tablet) 1 tab(s) by mouth Two (2) times a day Unchanged multivitamin (Multivitamin) 1 tab(s) by mouth Every day Unchanged pantoprazole (pantoprazole 40 mg oral enteric coated tablet) 1 tab(s) by mouth Once a day (in the morning) Unchanged vitamin E (vitamin E 400 intl units oral capsule) 1 cap by mouth Every day Please take this list to your next doctor s visit. Bring all medications you take, including over the counter medications, herbals and other supplements with you to your doctor s visit. Patients and families are reminded to discard old lists and to update any records with all medication providers or retail pharmacies. Education Materials Diet for Vomiting or Diarrhea (Adult) Your symptoms may return or get worse after eating certain foods listed below. If this happens, stop eating these foods until your symptoms ease and you feel better. Once the vomiting stops, follow the steps below. During the first 12 to 24 hours During the first 12 to 24 hours, follow this diet: Drinks. Plain water, sport drinks like electrolyte solutions, soft drinks without caffeine, mineralwater (plain or flavored), clear fruit juices, and decaffeinated tea and coffee. Soups. Clear broth. Desserts. Plain gelatin, popsicles, and fruit juice bars. As you feel better, you may add 6 to 8 ounces of yogurt per day. If you have diarrhea, don't have foods or drinks that contain sugar, high-fructose corn syrup, or sugar alcohols. During the next 24 hours During the next 24 hours you may add the following to the above: Hot cereal, plain toast, bread, rolls, and crackers Plain noodles, rice, mashed potatoes, and chicken noodle or rice soup Unsweetened canned fruit (but not pineapple) and bananas Don't eat more than 15 grams of fat a day. Do this by staying away from margarine, butter, oils, mayonnaise, sauces, gravies, fried foods, peanut butter, meat, poultry, and fish. Don't eat much fiber. Stay away from raw or cooked vegetables, fresh fruits (except bananas), and bran cereals. Limit how much caffeine and chocolate you have. Do not use any spices or seasonings except salt. During the next 24 hours Slowly go back to your normal diet, as you feel better and your symptoms ease. [id number] [employer]. [address] [place] [address]. All rights reserved. This information is not intended as a substitute for professional medical care. Always follow yourhealthcare professional's instructions. Viral Gastroenteritis (Adult) Gastroenteritis is commonly called the stomach flu, although it has nothing to do with influenza.It is most often caused by a virus that affects the stomach and intestinal tract and usually lasts from 2 to 7 days. Common viruses causing gastroenteritis include norovirus, rotavirus, and hepatitisA. Non-viral causes of gastroenteritis include bacteria, parasites, and toxins. The danger from repeated vomiting or diarrhea is dehydration. This is the loss of too much fluid from the body. When this occurs, body fluids must be replaced. Antibiotics don't help with this illness because it is usually viral. Simple home treatment will be helpful. Symptoms of viral gastroenteritis may include: Watery, loose stools Stomach pain or abdominal cramps Fever and chills Nausea and vomiting Loss of bowel control Headache Home care Gastroenteritis is transmitted by contact with the stool or vomit of an infected person. This can occur from person to person or from contact with a contaminated surface. Follow these guidelines when caring for yourself at home: If symptoms are severe, rest at home for the next 24 hours or until you are feeling better. Wash your hands with soap and water or use alcohol-based organ tuner electronic to prevent the spread of infection. Wash your hands after touching anyone who is sick. Wash your hands or use alcohol-based organ tuner electronic after using the toilet and before meals. Clean the toilet after each use. Remember these tips when preparing food: People with diarrhea should not prepare or serve food to others. When preparing foods, wash your hands before and after. Wash your hands after using cutting boards, countertops, knives, or utensils that have been in contact with raw food. Dry your hands with a single use towel. Keep uncooked meats away from cooked and hmnbx-dq-bip foods. Medicine You may use acetaminophen or NSAID medicines like ibuprofen or naproxen to control fever unless another medicine was given. If you have chronic liver or kidney disease, talk with your healthcare provider before using these medicines. Also talk with your provider if you've had a stomach ulcer or gastrointestinal bleeding. Don't give aspirin to anyone under 18 years of age who is ill with a fever. It may cause severe liver damage. Don't use NSAIDS is you are already taking one for another condition (like arthritis) or are on aspirin (such as for heart disease or after a stroke). If medicine for vomiting or diarrhea are prescribed, take these only as directed. Nausea and diarrhea medicines are generally OK unless you have bleeding, fever, or severe abdominal pain. Diet Follow these guidelines for food: Water and liquids are important so you don't get dehydrated. Drink a small amount at a time or suckon ice chips if you are vomiting. If you eat, avoid fatty, greasy, spicy, or fried foods. Don't eat dairy if you have diarrhea. This can make diarrhea worse. Avoid tobacco, alcohol, and caffeine which may worsen symptoms. During the first 24 hours (the first full day), follow the diet below: Beverages. Sports drinks, soft drinks without caffeine, landy kris, mineral water (plain or flavored), decaffeinated tea and coffee. If you are very dehydrated, sports drinks aren't a good choice. They have too much sugar and not enough electrolytes. In this case, commercially available products called oral rehydration solutions, are best. Soups. Eat clear broth, consomm , and bouillon. Desserts. Eat gelatin, ice pops, and fruit juice bars. During the next 24 hours (the second day), you may add the following to the above: Hot cereal, plain toast, bread, rolls, and crackers Plain noodles, rice, mashed potatoes, chicken noodle or rice soup Unsweetened canned fruit (avoid pineapple), bananas Limit fat intake to less than 15 grams per day. Do this by avoiding margarine, butter, oils, mayonnaise, sauces, gravies, fried foods, peanut butter, meat, poultry, and fish. Limit fiber and avoid raw or cooked vegetables, fresh fruits (except bananas), and bran cereals. Limit caffeine and chocolate. Don't use spices or seasonings other than salt. Limit dairy products. Avoid alcohol. During the next 24 hours: Gradually resume a normal diet as you feel better and your symptoms improve. If at any time it starts getting worse again, go back to clear liquids until you feel better. Follow-up care Follow up with your healthcare provider, or as advised. Call your provider if you don't get better within 24 hours or if diarrhea lasts more than a week. Also follow up if you are unable to keep downliquids and get dehydrated. If a stool (diarrhea) sample was taken, call as directed for the results. Call 911 Call 911 if any of these occur: Trouble breathing Chest pain Confused Severe drowsiness or trouble awakening Fainting or loss of consciousness Rapid heart rate Seizure Stiff neck When to seek medical advice Call your healthcare provider right away if any of these occur: Abdominal pain that gets worse Continued vomiting (unable to keep liquids down) Frequent diarrhea (more than 5 times a day) Blood in vomit or stool (black or red color) Dark urine, reduced urine output, or extreme thirst Weakness or dizziness Drowsiness Fever of 100.4 F (38 C) or higher, or as directed by your healthcare provider Royer gusman [id number] [employer]. [address] [place] [address], [place] [address]. All rights reserved. This information is not intended as a substitute for professional medical care. Always follow yourhealthcare professional's instructions. Viral Gastroenteritis (Adult) Gastroenteritis is commonly called the stomach flu, although it has nothing to do with influenza.It is most often caused by a virus that affects the stomach and intestinal tract and usually lasts from 2 to 7 days. Common viruses causing gastroenteritis include norovirus, rotavirus, and hepatitisA. Non-viral causes of gastroenteritis include bacteria, parasites, and toxins. The danger from repeated vomiting or diarrhea is dehydration. This is the loss of too much fluid from the body. When this occurs, body fluids must be replaced. Antibiotics don't help with this illness because it is usually viral. Simple home treatment will be helpful. Symptoms of viral gastroenteritis may include: Watery, loose stools Stomach pain or abdominal cramps Fever and chills Nausea and vomiting Loss of bowel control Headache Home care Gastroenteritis is transmitted by contact with the stool or vomit of an infected person. This can occur from person to person or from contact with a contaminated surface. Follow these guidelines when caring for yourself at home: If symptoms are severe, rest at home for the next 24 hours or until you are feeling better. Wash your hands with soap and water or use alcohol-based organ tuner electronic to prevent the spread of infection. Wash your hands after touching anyone who is sick. Wash your hands or use alcohol-based organ tuner electronic after using the toilet and before meals. Clean the toilet after each use. Remember these tips when preparing food: People with diarrhea should not prepare or serve food to others. When preparing foods, wash your hands before and after. Wash your hands after using cutting boards, countertops, knives, or utensils that have been in contact with raw food. Dry your hands with a single use towel. Keep uncooked meats away from cooked and orbcr-jl-ozj foods. Medicine You may use acetaminophen or NSAID medicines like ibuprofen or naproxen to control fever unless another medicine was given. If you have chronic liver or kidney disease, talk with your healthcare provider before using these medicines. Also talk with your provider if you've had a stomach ulcer or gastrointestinal bleeding. Don't give aspirin to anyone under 18 years of age who is ill with a fever. It may cause severe liver damage. Don't use NSAIDS is you are already taking one for another condition (like arthritis) or are on aspirin (such as for heart disease or after a stroke). If medicine for vomiting or diarrhea are prescribed, take these only as directed. Nausea and diarrhea medicines are generally OK unless you have bleeding, fever, or severe abdominal pain. Diet Follow these guidelines for food: Water and liquids are important so you don't get dehydrated. Drink a small amount at a time or suckon ice chips if you are vomiting. If you eat, avoid fatty, greasy, spicy, or fried foods. Don't eat dairy if you have diarrhea. This can make diarrhea worse. Avoid tobacco, alcohol, and caffeine which may worsen symptoms. During the first 24 hours (the first full day), follow the diet below: Beverages. Sports drinks, soft drinks without caffeine, landy kris, mineral water (plain or flavored), decaffeinated tea and coffee. If you are very dehydrated, sports drinks aren't a good choice. They have too much sugar and not enough electrolytes. In this case, commercially available products called oral rehydration solutions, are best. Soups. Eat clear broth, consomm , and bouillon. Desserts. Eat gelatin, ice pops, and fruit juice bars. During the next 24 hours (the second day), you may add the following to the above: Hot cereal, plain toast, bread, rolls, and crackers Plain noodles, rice, mashed potatoes, chicken noodle or rice soup Unsweetened canned fruit (avoid pineapple), bananas Limit fat intake to less than 15 grams per day. Do this by avoiding margarine, butter, oils, mayonnaise, sauces, gravies, fried foods, peanut butter, meat, poultry, and fish. Limit fiber and avoid raw or cooked vegetables, fresh fruits (except bananas), and bran cereals. Limit caffeine and chocolate. Don't use spices or seasonings other than salt. Limit dairy products. Avoid alcohol. During the next 24 hours: Gradually resume a normal diet as you feel better and your symptoms improve. If at any time it starts getting worse again, go back to clear liquids until you feel better. Follow-up care Follow up with your healthcare provider, or as advised. Call your provider if you don't get better within 24 hours or if diarrhea lasts more than a week. Also follow up if you are unable to keep downliquids and get dehydrated. If a stool (diarrhea) sample was taken, call as directed for the results. Call 911 Call 911 if any of these occur: Trouble breathing Chest pain Confused Severe drowsiness or trouble awakening Fainting or loss of consciousness Rapid heart rate Seizure Stiff neck When to seek medical advice Call your healthcare provider right away if any of these occur: Abdominal pain that gets worse Continued vomiting (unable to keep liquids down) Frequent diarrhea (more than 5 times a day) Blood in vomit or stool (black or red color) Dark urine, reduced urine output, or extreme thirst Weakness or dizziness Drowsiness Fever of 100.4 F (38 C) or higher, or as directed by your healthcare provider Royer gusman [id number] [employer]. [address] [place] [address]. All rights reserved. This information is not intended as a substitute for professional medical care. Always follow yourhealthcare professional's instructions. Additional Information VACCINATE! IT SAVES LIVES! Members of the community who have not yet received the COVID-19 vaccine and would like to receive it can visit one of [facility] vaccine clinics. There are many vaccine clinic locations within the [facility]. For locations and available times, please visit [email or web address] It is important to note that some COVID mobile vaccine clinics are held outdoors and may be canceled in rainy or stormy conditions. To learn more about pediatric vaccinations (ages 5-11), we invite you to visit the [facility] webpage. [email or web address]/[email or web address] [email or web address] learn more about the COVID-19 vaccine, we invite you to visit the CDC website for a list of frequently asked questions. https://www.cdc.gov/coronavirus/2019-ncov/vaccines/faq.html [facility] Patient Portal Access Instructions: Stay connected with your healthcare team and access your personal medical information anytime with the [facility] Patient Portal. If you would like a full copy of your medical records please contact the [facility] Medical Records Department Tuesday through Tuesday between 8a.m. and 4:30p.m. Please follow the directions below to access the portal: 1.Access the email account you provided upon registration to the hospital.2.Look for an invitation email from [facility].3.Open the email and access the invitation link: Accept Invitation to [facility].Fill in the required ortega to create your account. Sign into [email or web address] with your username and password that you created in the above steps to stay up to date. You can then view a summary of results, a summary of your visits, and the ability to download your summaries to your computer or send the information securely to a physician. Remember that your healthcare information is confidential, so carefully consider who you will allow to register on the [facility] Patient Portal for access to your information. You can also access the [facility] Patient Portal on the [employer] jyoti. Simply click on Health Records under Access Media 3 and then click on the [facility] logo. HOW TO SAFELY DISPOSE OF PRESCRIPTION MEDICATIONS Please use one of the following methods to safely dispose of your unused medications. 1.Use a drug disposal kit: the drug disposal pouch allows you to safely discard your old and unuseddrugs. Ask your nurse to give you one when you are discharged.2.Visit a local take-back location: Many local pharmacies and police departments have programs that collect old and unwanted prescriptiondrugs. Call your local pharmacy or go to http://[employer].Folloze/7Z8Ze1d to find one close to you.3.Make use of household items: Use cat litter or old coffee grounds to dispose medications if other options arenot available. Mix your drugs with these household products, seal them in an airtight container andthrow it into the garbage. Call [facility]: [phone] to be sure your drugs can be disposed of in this way. Some medicines may require a different approach.4.Never flush your medications down the toilet. IF YOU HAVE BEEN PRESCRIBED AN OPIOIDS FOR PAIN If you have been prescribed an opioid (such as hydrocodone, oxycodone or morphine), it is critical to understand the possible side effects and risks of opioid pain medications. Even when taken as directed, opioids can have several side effects including: Tolerance, meaning you might need to take more of a medication for the same pain relief. Nausea, vomiting and/or constipation. Sleepiness, dizziness, dry mouth, confusion, depression or itching. Physical dependence, meaning you have withdrawal symptoms when a medication is stopped ? this can develop within a few days. KNOW YOUR RESPONSIBILITIES It is important to know exactly how much and how often to take the opioid pain medications you are prescribed. Never take opioids in higher amounts or more often than prescribed. Do not combine opioids with alcohol or other drugs that cause drowsiness, such as benzodiazepines, also known as benzos,including diazepam and alprazolam, muscle relaxants or sleep aids. Never sell or share prescriptionopioids. This is illegal. Store opioids in a secure place and out of reach of others (including children, family, friends and visitors). The last page(s) of this document has been signed and retained as a CHART COPY Signatures Patient Education Materials Diet for Vomiting or Diarrhea (Adult) Gastroenteritis, Viral (Adult) Gastroenteritis, Viral (Adult) Medication Leaflets My discharge plan and instructions have been reviewed and explained to me and I,JAYLEN GALAVIZ understand my current condition and have read and understand these discharge instructions. I have received a written copy of the plan/instructions. If I have questions, I am aware that I should contact my doctor. 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 Signature: Date/Time: Relationship to Patient: Witness Name/Signature: [id number] Note ORIGINAL EXAMINATION: CT OF THE ABDOMEN AND PELVIS WITH CONTRAST06/01/2023 12:52 am TECHNIQUE: CT of the abdomen and pelvis was performed with the administration of intravenous contrast. Multiplanar reformatted images are provided for review. Automated exposure control, iterative reconstruction, and/or weight based adjustment of the mA/kV was utilized to reduce the radiation dose to as low as reasonably achievable. COMPARISON: Next CT abdomen/pelvis 02/20/2023, PET/CT 03/24/2023 HISTORY: ORDERING SYSTEM PROVIDED HISTORY: Reason for Exam: abd pain, n/v, diarrhea, s/p radiation this am for prostate ca abdominal pain FINDINGS: The liver is unremarkable in contour. No suspicious hepatic lesions. There is no intra or extrahepatic biliary duct dilation. Subcentimeter hypodensity within the spleen, similar to the prior exam and likely a cyst versus hemangioma. The kidneys enhance symmetrically without evidence of hydronephrosis or suspicious lesions. Similar appearing 1.0 cm left renal cyst. Redemonstration of left nonobstructive nephrolithiasis up to 0.7 cm. Small nonobstructive right nephrolithiasis. Enlarged prostate up to 6.4 cm containing dystrophic calcification. Posterior to the prostate there is a new high density collection that measures 4.1 cm in length by 3.3 cm transverse and 1.3 cm in AP diameter. The attenuation is greater than blood and higher than expected for extravasation of contrast with maximum density of 276 Hounsfield units. This causes no significant mass effect. There is no free fluid in the pelvis. Circumferential thickening of the lower esophageal wall suggestive of chronic reflux esophagitis. Unremarkable appearance of the stomach. No dilated loops of small bowel. No small bowel wall thickening. Similar appearing diverticulosis, severe of the sigmoid and descending colon; no findings to suggest diverticulitis. Unremarkable appendix. No pathologically enlarged or aggressive appearing lymph nodes. Nonaneurysmal atherosclerotic aortoiliac arteries. No acute osseous abnormality. No aggressive appearing osseous lesions. Varying degrees of multifocal degenerative change, moderate to severe within the lumbar spine. Diffuse idiopathic skeletal hyperostosis. Grade 1 anterolisthesis of L4 on L5. Slight retrolisthesis of L3 on L4 and of L2 on L3. No acute abnormality within the partially visualized lower thorax. Similar appearing subpleural reticular interstitial change. Partially imaged cardiomegaly. CABG changes and aortic valve prosthesis. IMPRESSION: Bilateral nonobstructing nephrolithiasis. No ureteral stone or obstruction. Diverticulosis of the colon without signs of diverticulitis. Prostate enlargement. New high density posterior to the prostate is greater than expected for hemorrhage or contrast enhancement, and is likely calcification in developing related to radiation. I have personally reviewed the images of this examination, and agree with the resident's findings and interpretation. Interpreted by: Douglas Canales MD Preliminary Report By: Erika Mandel Electronically signed By Douglas Canales MD Dictated Date: 06/01/2023 12:54:07 AM Prelim Date: 06/01/2023 1:09:53 AM Sign Date: 06/01/2023 1:31:38 AM Ordering Provider: [facility]08-29-[facility]23 Hospital Discharge instructions Patient Education 05/03/2023 18:33:17 Knee Pain of Uncertain Cause Knee Pain with Uncertain Cause There are several common causes for knee pain. These can include: A sprain of the ligaments that support the joint An injury to the cartilage lining of the joint Arthritis from dggh-dwz-gmta or inflammation There are other causes as well. There may also be swelling, reduced movement of the knee joint, andpain with walking. A definite diagnosis will still need to be made. If your symptoms don't improve,further follow-up and testing may be needed. Home care Stay off the injured leg as much as possible until pain improves. Apply an ice pack over the injured area for 15 to 20 minutes every 3 to 6 hours. You should do thisfor the first 24 to 48 hours. You can make an ice pack by filling a plastic bag that seals at the top with ice cubes and then wrapping it with a thin towel. Continue to use ice packs for relief of pain and swelling as needed. As the ice melts, be careful not to get your wrap, splint, or cast wet. After 48 hours, apply heat (warm shower or warm bath) for 15 to 20 minutes several times a day, or alternate ice and heat. If you have to wear a bevb-rrj-odkh knee brace, you can open it to apply the ice pack, or heat, directly to the knee. Never put ice directly on the skin. Always wrap the ice in atowel or other type of cloth. You may use rbac-vsu-obpclre pain medicine to control pain, unless another pain medicine was prescribed. If you have chronic liver or kidney disease or ever had a stomach ulcer or gastrointestinal bleeding, talk with your healthcare provider before using these medicines. If crutches or a walker have been recommended, don't put weight on the injured leg until you can doso without pain. Check with your healthcare provider before returning to sports or full work duties. If you have a gnxn-ssd-jsut knee brace, you can remove it to bathe and sleep, unless told otherwise. Follow-up care Follow up with your healthcare provider as advised. This is usually within 1 to 2 weeks. If X-rays were taken, you will be told of any new findings that may affect your care Call 911 Call 911 if you have: Shortness of breath Chest pain When to seek medical advice Call your healthcare provider right away if any of these occur: Toes or foot becomes swollen, cold, blue, numb, or tingly Pain or swelling spreads over the knee or calf Warmth or redness appears over the knee or calf Other joints become painful Rash appears Fever of 100.4 F (38 C) or higher, or as directed by your healthcare provider Chills [phone] [employer] [place] [address]. All rights reserved. This information is not intended as a substitute for professional medical care. Always follow yourhealthcare professional's instructions. Follow Up Care 05/03/2023 17:05:56 With:JAKI FLEMING DO, Internal Medicine, [facility] Address: [address] [place] [phone] When:2-4 days Comments:Make an appointment in 2 to 4 days with your physician. Return if you are worse in any way. [facility] 08-29-2023 Emergency department Discharge summary Discharge Instructions Thank you for allowing [facility] to assist you with your healthcare needs. The following is importantdischarge information regarding your hospital visit. Diagnosis from Today's Visit Leg pain Right knee pain What to Do Next Instructions from Your Care Team Motrin and Tylenol at home. Return for swelling, redness, increasing pain, chest pain, shortness ofbreath, or for you are worse in any way. Your ultrasound your leg was negative for blood clot. Follow-up with your primary physician in 2 to 3 days. Return if worse in any way. No qualifying data available. Post Acute Orders No qualifying data available. You Need to Schedule the Following Appointments Follow Up with JAKI FLEMING DO, Internal Medicine, [facility] When Within 2-4 days Why: Make an appointment in 2 to 4 days with your physician. Return if you are worse in any way. Where: [address] [place] [phone] Allergies NKA Medications Please ask your primary doctor or pharmacist before taking any other medication not listed, including over the counter drugs, herbal medications, vitamins and or supplements as they may interact withyour home medications. What How Much When Instructions Last Dose Unchanged acetaminophen- diphenhydramine (Tylenol PM ExtraStrength oral tablet) 2 tab(s) by mouth Daily at bedtime as needed for as needed for sleep Unchanged aspirin (aspirin 81 mg oral tablet, chewable) 1 tab(s) by mouth Once a day (in the morning) Unchanged bicalutamide (Casodex 50 mg oral tablet) 1 tab(s) by mouth Every 24 hours Unchanged cholecalciferol (Vitamin D3 50 mcg (2000 intl units) oral capsule) 1 cap by mouth Once a day Unchanged glimepiride (Amaryl 1 mg oral tablet) 1 tab(s) by mouth Two (2) times a day Unchanged leflunomide (leflunomide 10 mg oral tablet) 1 tab(s) by mouth Once a day (in the morning) Unchanged lisinopril (lisinopril 40 mg oral tablet) 1 tab(s) by mouth Daily at bedtime Unchanged metformin-sitagliptin (Janumet 50 / 1000 mg oral tablet) 1 tab(s) by mouth Two (2) times a day Unchanged multivitamin (Multivitamin) 1 tab(s) by mouth Every day Unchanged pantoprazole (pantoprazole 40 mg oral enteric coated tablet) 1 tab(s) by mouth Once a day (in the morning) Unchanged sulfamethoxazole-trimethoprim (Bactrim 400 mg-80 mg oral tablet) 1 tab(s) by mouth Two (2) times a day Duration: 5 Days Unchanged vitamin E (vitamin E 400 intl units oral capsule) 1 cap by mouth Every day Please take this list to your next doctor s visit. Bring all medications you take, including over the counter medications, herbals and other supplements with you to your doctor s visit. Patients and families are reminded to discard old lists and to update any records with all medication providers or retail pharmacies. Education Materials Knee Pain with Uncertain Cause There are several common causes for knee pain. These can include: A sprain of the ligaments that support the joint An injury to the cartilage lining of the joint Arthritis from hwyk-qjd-rubu or inflammation There are other causes as well. There may also be swelling, reduced movement of the knee joint, andpain with walking. A definite diagnosis will still need to be made. If your symptoms don't improve,further follow-up and testing may be needed. Home care Stay off the injured leg as much as possible until pain improves. Apply an ice pack over the injured area for 15 to 20 minutes every 3 to 6 hours. You should do thisfor the first 24 to 48 hours. You can make an ice pack by filling a plastic bag that seals at the top with ice cubes and then wrapping it with a thin towel. Continue to use ice packs for relief of pain and swelling as needed. As the ice melts, be careful not to get your wrap, splint, or cast wet. After 48 hours, apply heat (warm shower or warm bath) for 15 to 20 minutes several times a day, or alternate ice and heat. If you have to wear a hyue-xps-aexv knee brace, you can open it to apply the ice pack, or heat, directly to the knee. Never put ice directly on the skin. Always wrap the ice in atowel or other type of cloth. You may use rmuf-unq-lnuuzak pain medicine to control pain, unless another pain medicine was prescribed. If you have chronic liver or kidney disease or ever had a stomach ulcer or gastrointestinal bleeding, talk with your healthcare provider before using these medicines. If crutches or a walker have been recommended, don't put weight on the injured leg until you can doso without pain. Check with your healthcare provider before returning to sports or full work duties. If you have a tduh-rrj-leoe knee brace, you can remove it to bathe and sleep, unless told otherwise. Follow-up care Follow up with your healthcare provider as advised. This is usually within 1 to 2 weeks. If X-rays were taken, you will be told of any new findings that may affect your care Call 911 Call 911 if you have: Shortness of breath Chest pain When to seek medical advice Call your healthcare provider right away if any of these occur: Toes or foot becomes swollen, cold, blue, numb, or tingly Pain or swelling spreads over the knee or calf Warmth or redness appears over the knee or calf Other joints become painful Rash appears Fever of 100.4 F (38 C) or higher, or as directed by your healthcare provider [place]on [phone] [employer]. [address] [place] [address], [place] [address]. All rights reserved. This information is not intended as a substitute for professional medical care. Always follow yourhealthcare professional's instructions. Additional Information VACCINATE! IT SAVES LIVES! Members of the community who have not yet received the COVID-19 vaccine and would like to receive it can visit one of [facility] vaccine clinics. There are many vaccine clinic locations within the [facility]. For locations and available times, please visit www.[email or web address]/. It is important to note that some COVID mobile vaccine clinics are held outdoors and may be canceled in rainy or stormy conditions. To learn more about pediatric vaccinations (ages 5-11), we invite you to visit the [facility] webpage. https://[email or web address]/[email or web address]-Vjzea-[email or web address] [email or web address] learn more about the COVID-19 vaccine, we invite you to visit the CDC website for a list of frequently asked questions. https://www.cdc.gov/coronavirus/2019-ncov/vaccines/faq.html [facility] Patient Portal Access Instructions: Stay connected with your healthcare team and access your personal medical information anytime with the [facility] Patient Portal. If you would like a full copy of your medical records please contact the [facility] Medical Records Department Tuesday through Tuesday between 8a.m. and 4:30p.m. Please follow the directions below to access the portal: 1.Access the email account you provided upon registration to the hospital.2.Look for an invitation email from [facility].3.Open the email and access the invitation link: Accept Invitation to [facility]4.Fill in the required ortega to create your account. Sign into [email or web address] with your username and password that you created in the above steps to stay up to date. You can then view a summary of results, a summary of your visits, and the ability to download your summaries to your computer or send the information securely to a physician. Remember that your healthcare information is confidential, so carefully consider who you will allow to register on the [facility] Patient Portal for access to your information. You can also access the [facility] Patient Portal on the [employer]. Simply click on Health Records under Access Media 3 and then click on the [facility] logo. HOW TO SAFELY DISPOSE OF PRESCRIPTION MEDICATIONS Please use one of the following methods to safely dispose of your unused medications. 1.Use a drug disposal kit: the drug disposal pouch allows you to safely discard your old and unuseddrugs. Ask your nurse to give you one when you are discharged.2.Visit a local take-back location: Many local pharmacies and police departments have programs that collect old and unwanted prescriptiondrugs. Call your local pharmacy or go to http://[employer].Folloze/2J0Ab1t to find one close to you.3.Make use of household items: Use cat litter or old coffee grounds to dispose medications if other options arenot available. Mix your drugs with these household products, seal them in an airtight container andthrow it into the garbage. Call [facility]: [phone] to be sure your drugs can be disposed of in this way. Some medicines may require a different approach.4.Never flush your medications down the toilet. IF YOU HAVE BEEN PRESCRIBED AN OPIOIDS FOR PAIN If you have been prescribed an opioid (such as hydrocodone, oxycodone or morphine), it is critical to understand the possible side effects and risks of opioid pain medications. Even when taken as directed, opioids can have several side effects including: Tolerance, meaning you might need to take more of a medication for the same pain relief. Nausea, vomiting and/or constipation. Sleepiness, dizziness, dry mouth, confusion, depression or itching. Physical dependence, meaning you have withdrawal symptoms when a medication is stopped ? this can develop within a few days. KNOW YOUR RESPONSIBILITIES It is important to know exactly how much and how often to take the opioid pain medications you are prescribed. Never take opioids in higher amounts or more often than prescribed. Do not combine opioids with alcohol or other drugs that cause drowsiness, such as benzodiazepines, also known as benzos,including diazepam and alprazolam, muscle relaxants or sleep aids. Never sell or share prescriptionopioids. This is illegal. Store opioids in a secure place and out of reach of others (including children, family, friends and visitors). The last page(s) of this document has been signed and retained as a CHART COPY Signatures Patient Education Materials Knee Pain of Uncertain Cause Medication Leaflets My discharge plan and instructions have been reviewed and explained to me and IGUILLAUME GORDON E understand my current condition and have read and understand these discharge instructions. I have received a written copy of the plan/instructions. If I have questions, I am aware that I should contact my doctor. 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 Signature: Date/Time: Relationship to Patient: Witness Name/Signature: Date/Time: [id number] Note* Exam Date Time Procedure Performing Provider Status 05/03/23 5:33 PM VL Venous US/Doppler One Leg (for DVT). Auth (Verified) [facility] 08-25-2023 Summary of episode note GUILLAUMEJAYLEN BLEDSOE :1935 Visit Date:04/29/2023 Your Visit Summary Your Diagnosis Prostate cancer Your Care Team Attending Physician - CLOVER KATZ MD Primary Care Physician - JAKI FLEMING DO What to do next Instructions From Your Doctor Nimco 45mg given. Scheduled Follow-Up Appointments Appointment Type When With Where Contact InformationURO OV 20 min 05/19/2023 10:20 AM ANURADHA DENTON Urology HEM ONC OV Follow Up 06/28/2023 11:30 AM CLVOER RAMOS MD Hematology and Oncology URO OV 07/08/2023 08:40 AM EZEKIEL KENNY MD Urology CV OV 08/25/2023 11:00 AM CHARMAINE DENIS [facility] Medications What How Much When Instructions Unchanged acetaminophen-diphenhydramine (Tylenol PM Extra Strength oral tablet) 2 tab(s) by mouth Daily at bedtime as needed for as needed for sleep Unchanged aspirin (aspirin 81 mg oral tablet, chewable) 1 tab(s) by mouth Once a day (in the morning) Unchanged bicalutamide (Casodex 50 mg oral tablet) 1 tab(s) by mouth Every 24 hours Unchanged cholecalciferol (Vitamin D3 50 mcg (2000 intl units) oral capsule) 1 cap by mouth Once a day Unchanged glimepiride (Amaryl 1 mg oral tablet) 1 tab(s) by mouth Two (2) times a day Unchanged leflunomide (leflunomide 10 mg oral tablet) 1 tab(s) by mouth Once a day (in the morning) Unchanged lisinopril (lisinopril 40 mg oral tablet) 1 tab(s) by mouth Daily at bedtime Unchanged metformin-sitagliptin (Janumet 50 / 1000 mg oral tablet) 1 tab(s) by mouth Two (2) times a day Unchanged multivitamin (Multivitamin) 1 tab(s) by mouth Every day Unchanged pantoprazole (pantoprazole 40 mg oral enteric coated tablet) 1 tab(s) by mouth Once a day (in the morning) Unchanged vitamin E (vitamin E 400 intl units oral capsule) 1 cap by mouth Every day Allergies NKA Additional Information VACCINATE! IT SAVES LIVES! Members of the community who have not yet received the COVID-19 vaccine and would like to receive it can visit one of [facility] vaccine clinics. There are many vaccine clinic locations within the [facility]. For locations and available times, please visit www.[email or web address]/. It is important to note that some COVID mobile vaccine clinics are held outdoors and may be canceled in rainy or stormy conditions. To learn more about pediatric vaccinations (ages 5-11), we invite you to visit the [facility] webpage. https://www.[facility].org/pages/2069-Mmmgo-Mknjgxvqfbj-Cmeewechqv-Avvfz-Ffn stions.htmlTo learn more about the COVID-19 vaccine, we invite you to visit the CDC website for a list of frequently asked questions. https://www.cdc.gov/coronavirus/2019-ncov/vaccines/faq.html [facility] Patient Portal Access Instructions: Stay connected with your healthcare team and access your personal medical information anytime with the [facility] Patient Portal.If you would like a full copy of your medical records, please contact the [facility] Medical Records Department, Tuesday through Tuesday between 8a.m. and 4:30p.m. Please follow the directions below to access the portal: 1.Access the email account you provided upon registration to the hospital.2.Look for an invitation email from [facility].3.Open the email and access the invitation link: Accept Invitation to [facility]4.Fill in the required ortega to create your account. Sign into [email or web address] with your username and password that you created in the above steps to stay up to date. You can then view a summary of results, a summary of your visits, and the ability to download your summaries to your computer or send the information securely to a physician. Remember that your healthcare information is confidential, so carefully consider who you will allow to register on the [facility] Patient Portal for access to your information. You can also access the [facility] Patient Portal on the [employer] j[employer]oti. Simply click on Health Records under Access Media 3 and then click on the [facility] logo. HOW TO SAFELY DISPOSE OF PRESCRIPTION MEDICATIONS Please use one of the following methods to safely dispose of your unused medications. 1.Use a drug disposal kit: the drug disposal pouch allows you to safely discard your old and unuseddrugs. Ask your nurse to give you one when you are discharged.2.Visit a local take-back location: Many local pharmacies and police departments have programs that collect old and unwanted prescriptiondrugs. Call your local pharmacy or go to http://bit.ly/6H0Hg1e to find one close to you.3.Make use of household items: Use cat litter or old coffee grounds to dispose medications if other options arenot available. Mix your drugs with these household products, seal them in an airtight container andthrow it into the garbage. Call [facility]: [phone] to be sure your drugs can be disposed of in this way. Some medicines may require a different approach.4.Never flush your medications down the toilet. IF YOU HAVE BEEN PRESCRIBED AN OPIOID FOR PAIN If you have been prescribed an opioid (such as hydrocodone, oxycodone or morphine), it is critical to understand the possible side effects and risks of opioid pain medications. Even when taken as directed, opioids can have several side effects including: Tolerance, meaning you might need to take more of a medication for the same pain relief. Nausea, vomiting and/or constipation. Sleepiness, dizziness, dry mouth, confusion, depression or itching. Physical dependence, meaning you have withdrawal symptoms when a medication is stopped, can develop within a few days. KNOW YOUR RESPONSIBILITIES It is important to know exactly how much and how often to take the opioid pain medications you are prescribed. Never take opioids in higher amounts or more often than prescribed. Do not combine opioids with alcohol or other drugs that cause drowsiness, such as benzodiazepines, also known as benzos, including diazepam and alprazolam, muscle relaxants or sleep aids. Never sell or share prescription opioids. This is illegal. Store opioids in a secure place and out of reach of others (including children, family, friends and visitors). The last page of this document has been signed and retained as a CHART COPY. Signatures Patient Education Materials Medication Leaflets My discharge plan and instructions have been reviewed and explained to me and I,JAYLEN GALAVIZ understand my current condition and have read and understand these discharge instructions. I have received a written copy of the plan/instructions. If I have questions, I am aware that I should contact my doctor. 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 Signature: Date/Time: Relationship to Patient: Witness Name/Signature: Date/Time: [id number] Note ORIGINAL EXAMINATION: PET/CT PSMA 03/24/2023 1:31 pm TECHNIQUE: Intravenous injection of 6.51 mCi IV Gallium-68 PSMA was performed, followed by PET acquisition from the skull vertex to mid-thigh. Concurrent low-dose CT for attenuation correction and anatomic localization was also performed. PET images were fused with low-dose CT at the workstation. Dose lcqzfgomk-mn-wzez time: 63 min COMPARISON: CT abdomen pelvis 02/20/[address] thorax 12/22/2015 HISTORY: ORDERING SYSTEM PROVIDED HISTORY: Reason for Exam: Prostate cancer FINDINGS: Parotid gland: SUV 14 Mediastinal blood pool: SUV 1.7 Hepatic blood pool: SUV 5.3 HEAD/NECK/CHEST: No PSMA avid soft tissue lesion within the neck. No PSMA avid lymph nodes. Respiratory motion artifact limits some detail of the lung parenchyma. There is a 0.5 cm left lower lobe nodule (image 119), stable from CT thorax 12/12/2015. Stable calcified granulomas in bilateral lower lobes. No PSMA expressing lung nodule. ABDOMEN: Physiologic activity is present within the liver, spleen, urinary tract, and bowel. No PSMA avid lesion within the abdomen. Bilateral nonobstructive nephrolithiasis. Marked diverticulosis without evidence of diverticulitis. PELVIS: There is focally intense PSMA expressing disease within the posterior central aspect of the enlarged prostate with max SUV of 6.5. No extraprostatic PSMA avid disease. No PSMA avid pelvic julianne disease. MUSCULOSKELETAL: No PSMA avid osseous lesion to suggest osseous metastatic disease. IMPRESSION: 1. Intense PSMA activity within the posterior aspect of the enlarged prostate consistent with biopsy proved prostate cancer. This would align with an intermediate PSMA expression according to PROMISE criteria (equal to or above that of the liver but less than the parotid gland). 2. No PSMA expressing adenopathy identified on this exam. 3. No distant PSMA avid disease identified. 4. Bilateral nonobstructive nephrolithiasis. 5. Marked diverticulosis without evidence of diverticulitis. I have personally reviewed the images of this examination and agree with the resident's findings and interpretation. Interpreted by: Mary Montgomery Preliminary Report By: Sushil López Electronically signed By Mary Montgomery Dictated Date: 03/24/2023 1:33:41 PM Prelim Date: 03/24/2023 2:49:31 PM Sign Date: 03/24/2023 2:49:31 PM [facility]ing [id number] Discharge instructions Patient Education 02/21/2023 00:18:43 Lower GI Bleeding (Stable) Lower Gastrointestinal (GI) Bleeding (Stable) You have signs of blood in your stool. This is called rectal bleeding. The bleeding may have begun in another part of your gastrointestinal (GI) tract. If the blood is bright red, it is likely comingfrom the lower part of the GI tract. If the blood is black or dark, it might be coming from higher up in the GI tract. Very small amounts of GI bleeding may not be visible and can only be discovered during a test on your stool. Possible causes of lower GI bleeding include: Swollen inflamed veins in the rectum (hemorrhoids) Tear in the lining of the anus (anal fissures) Inflammation of a small pouch in the intestine (diverticulitis) Inflammatory bowel disease (Crohn's disease or ulcerative colitis) Polyps (growths) in the intestine Swelling and irritation of the colon (infectious colitis) Colon cancer Note: Iron supplements and medicines for diarrhea or upset stomach can cause black stools. Foods such as licorice and red beets can also discolor the stool and be mistaken for bleeding. These are notbleeding and are not a cause for alarm. Home care You have not lost a large amount of blood and your condition appears stable at this time. You may resume normal activity as long as you feel well. Don't take NSAIDs, such as aspirin, ibuprofen, or naproxen. They can irritate the stomach and causefurther bleeding. If you are taking these medicines for other medical reasons, talk to your healthcare provider before you stop them. Follow-up care Follow up with your healthcare provider, or as advised. Further tests may be needed to find the cause of your bleeding. When to seek medical advice Call your healthcare provider right away for any of the following: Large amount of rectal bleeding Increasing abdominal pain Weakness, dizziness Call 911 Call 911 if any of the following occur: Loss of consciousness Vomiting blood [phone] [employer]. [address] [place] [address]. All rights reserved. This information is not intended as a substitute for professional medical care. Always follow yourhealthcare professional's instructions. 02/21/2023 00:18:34 Bladder Infection, Male (Adult) Bladder Infection, Male (Adult) You have a bladder infection. Urine is normally free of bacteria. But bacteria can get into the urinary tract from the skin around the rectum or it may travel in the blood from elsewhere in the body. This is called a urinary tract infection (UTI). An infection can occur anywhere in the urinary tract. It could be in a kidney (pyelonephritis)or in the bladder (cystitis) and urethra (urethritis). The urethra is the tube that drains the urine from the bladder through the tip of the penis. The most common place for a UTI is in the bladder. This is called a bladder infection. Most bladderinfections are easily treated. They are not serious unless the infection spreads up to the kidney. The terms bladder infection, UTI, and cystitis are often used to describe the same thing, but they aren t always the same. Cystitis is an inflammation of the bladder. The most common cause of cystitis is an infection. Keep in mind: Infections in the urine are called UTIs. Cystitis is usually caused by a UTI. Not all UTIs and cases of cystitis are bladder infections. Bladder infections are the most common type of cystitis. Symptoms of a bladder infection The infection causes inflammation in the urethra and bladder. This inflammation causes many of the symptoms. The most common symptoms of a bladder infection are: Pain or burning when urinating Having to go more often than usual Feeling like you need to go right away Only a small amount comes out Blood in urine Discomfort in your belly (abdomen), usually in the lower abdomen, above the pubic bone Cloudy, strong, or bad smelling urine Unable to urinate (retention) Urinary incontinence Fever Loss of appetite Older adults may also feel confused. Causes of a bladder infection Bladder infections are not contagious. You can't get one from someone else, from a toilet seat, or from sharing a bath. The most common cause of bladder infections is bacteria from the bowels. The bacteria get onto the skin around the opening of the urethra. From there they can get into the urine and travel up to the bladder. This causes inflammation and an infection. This usually happens because of: An enlarged prostate Poor cleaning of the genitals Procedures that put a tube in your bladder, like a Preston catheter Bowel incontinence Older age Not emptying your bladder (The urine stays there, giving the bacteria a chance to grow.) Dehydration (This allows urine to stay in the bladder longer.) Constipation (This can cause the bowels to push on the bladder or urethra and keep the bladder fromemptying.) Treatment Bladder infections are treated with antibiotics. They usually clear up quickly without complications. Treatment helps prevent a more serious kidney infection. Medicines Medicines can help in the treatment of a bladder infection: You may have been given phenazopyridine to ease burning when you urinate. It will cause your urine to be bright orange. It can stain clothing. You may have been prescribed antibiotics. Take this medicine until you have finished it, even if you feel better. Taking all of the medicine will make sure the infection has cleared. You can use acetaminophen or ibuprofen for pain, fever, or discomfort, unless another medicine was prescribed. You can also alternate them, or use both together. They work differently and are a different class of medicines, so taking them together is not an overdose. If you have chronic liver or kidney disease, talk with your healthcare provider before using these medicines. Also talk with your provider if you ve had a stomach ulcer or GI bleeding or are taking blood thinner medicines. Home care Here are some guidelines to help you care for yourself at home: Drink plenty of fluids, unless your healthcare provider told you not to. Fluids will prevent dehydration and flush out your bladder. Use good personal hygiene. Wipe from front to back after using the toilet, and clean your penis regularly. If you aren t circumcised, retract the foreskin when cleaning. Urinate more frequently, and don t try to hold it in for long periods of time, if possible. Wear loose-fitting clothes and cotton underwear. Avoid tight-fitting pants. This helps keep you clean and dry. Change your diet to prevent constipation. This means eating more fresh foods and more fiber, and less junk and fatty foods. Avoid sex until your symptoms are gone. Avoid caffeine, alcohol, and spicy foods. These can irritate the bladder. Follow-up care Follow up with your healthcare provider, or as advised if all symptoms have not cleared up within 5days. It is important to keep your follow-up appointment. You can talk with your provider to see ifyou need more tests of the urinary tract. This is especially important if you have infections that keep coming back. If a culture was done, you will be told if your treatment needs to be changed. If directed, you cancall to find out the results. If X-rays were taken, you will be told of any findings that may affect your care. Call 911 Call 911 if any of these occur: Trouble breathing Difficulty waking up Feeling confused Fainting or loss of consciousness Rapid heart rate When to seek medical advice Call your healthcare provider right away if any of these occur: Fever of 100.4 F (38 C) or higher, or as directed by your healthcare provider Your symptoms don t improve after 2 days of treatment Back or abdominal pain that gets worse Repeated vomiting, or you aren t able to keep medicine down Weakness or dizziness [id number] [employer]. [address] [place] [address]. All rights reserved. This information is not intended as a substitute for professional medical care. Always follow yourhealthcare professional's instructions. 02/21/2023 00:18:33 Kidney Stone w/ Colic Kidney Stone with Pain The sharp cramping pain on either side of your lower back and nausea/vomiting that you have are because of a small stone that has formed in the kidney. It is now passing down a narrow tube (ureter) on its way to your bladder. Once the stone reaches your bladder, the pain will often stop. But it maycome back as the stone continues to pass out of the bladder and through the urethra. The stone may pass in your urine stream in one piece. The size may be 1/16 inch to 1/4 inch (1 mm to 6 mm). Or, the stone may break up into andrea fragments that you may not even notice. Once you have had a kidney stone, you are at risk of getting another one in the future. There are 4types of kidney stones. Eighty percent are calcium stones mostly calcium oxalate but also some withcalcium phosphate. The other 3 types include uric acid stones, struvite stones (from a preceding infection), and rarely, cystine stones. Most stones will pass on their own, but may take from a few hours to a few days. Sometimes the stone is too large to pass by itself. In that case, the healthcare provider will need to use other ways to remove the stone. These techniques include: Lithotripsy. This uses ultrasound waves to break up the stone. Ureteroscopy. This pushes a basket-like instrument through the urethra and bladder and into the ureter to pull out the stone. Various types of direct surgery through the skin Home care The following are general care guidelines: Drink plenty of fluids. This means at least 12, 8-ounce glasses of fluid mostly water a day. Each time you urinate, do so in a jar. Pour the urine from the jar through the strainer and into the toilet. Continue doing this until 24 hours after your pain stops. By then, if there was a kidney stone, it should pass from your bladder. Some stones dissolve into sand-like particles and pass rightthrough the strainer. In that case, you won t ever see a stone. Save any stone that you find in the strainer and bring it to your healthcare provider to look at. It may be possible to stop certain types of stones from forming. For this reason, it is important to know what kind of stone you have. Try to stay as active as possible. This will help the stone pass. Don't stay in bed unless your pain keeps you from getting up. You may notice a red, pink, or brown color to your urine. This is normal while passing a kidney stone. If you develop pain, you may take ibuprofen or naproxen for pain, unless another medicine was prescribed. If you have chronic liver or kidney disease, talk with your healthcare provider before takingthese medicines. Also talk with your provider if you've had a stomach ulcer or GI bleeding. Preventing stones Each year for the next 5 to 7 years, you are at risk that a new stone will form. Your risk is a 50%chance over this time period. The risk is higher if you have a family history of kidney stones or have certain chronic illnesses like hypertension, obesity, or diabetes. But you can make changes to your lifestyle and diet that can lower your risk for another stone. Most kidney stones are made of calcium. The following is advice for preventing another calcium stone. If you don t know the type of stone you have, follow this advice until the cause of your stone isfound. Things that help: The most important thing you can do is to drink plenty of fluids each day. See home care above. Eat foods that contain phytates. These include wheat, rice, rye, barley, and beans. Phytates are substances that may lower your risk for any type of stone to form. Eat more fruits and vegetables. Choose those that are high in potassium. Eat foods high in natural citrate like fruit and low-sugar fruit juices. Having too little calcium in your diet can put you at risk for calcium kidney stones. Eat a normal amount of calcium in your diet and talk with your healthcare provider if you are taking calcium supplements. Cutting back on your calcium intake may raise your risk. New research shows that eating calcium-rich and oxalate-rich foods together lowers your risk for stones by binding the minerals in thestomach and intestines before they can reach the kidneys. Limit salt intake to 2 grams (1 teaspoon) per day. Use limited amounts when cooking, and don t add salt at the table. Processed and canned foods are usually high in salt. Spinach, rhubarb, peanuts, cashews, almonds, grapefruit, and grapefruit juice are all high oxalate foods. You should limit how much of these you eat. Or eat them with calcium-rich foods. These include dairy products, dark leafy greens, soy products, and calcium-enriched foods. Reducing the amount of animal meat and high protein foods in your diet may lower your risk for uricacid stones. Avoid excess sugar (sucrose) and fructose (sweetener in many soft drinks) in your diet. If you take vitamin C as a supplement, don't take more than 1,000 mg a day. A dietitian or your healthcare provider can give you information about changes in your diet that will help prevent more kidney stones from forming. Follow-up care Follow up with your healthcare provider, or as advised, if the pain lasts more than 48 hours. Talk with your provider about urine and blood tests to find out the cause of your stone. If you had an X-ray, CT scan, or other diagnostic test, you will be told of any new findings that may affect your care. Call 911 Call 911 if you have any of these: Weakness, dizziness, or fainting When to seek medical advice Call your healthcare provider right away if any of these occur: Pain that is not controlled by the medicine given Repeated vomiting or unable to keep down fluids Fever of 100.4 F (38 C) or higher, or as directed by your healthcare provider Passage of solid red or brown urine (can't see through it) or urine with lots of blood clots Foul-smelling or cloudy urine Unable to pass urine for 8 hours and increasing bladder pressure [phone] [employer]. [address] [place] [address], [place] [address]. All rights reserved. This information is not intended as a substitute for professional medical care. Always follow yourhealthcare professional's instructions. Follow Up Care 02/20/2023 17:04:01 With:EZEKIEL BURRIS MD, [facility] Address: [address] [place] [address] [place] [address] [phone] When:2-4 days With:ROYA BASILIO MD Address: [address] [facility], [place] [address] [phone] When:2-4 days With:JAKI FLEMING DO, Internal Medicine, [facility] Address: [address] [place] [address] [place] [address] [phone] When:2-4 days [facility] 06-19-2023 Emergency department Discharge summary Discharge Instructions Thank you for allowing [facility] to assist you with your healthcare needs. The following is importantdischarge information regarding your hospital visit. Diagnosis from Today's Visit Rectal bleeding Kidney stone UTI - Urinary tract infection Rectal bleed What to Do Next Instructions from Your Care Team No qualifying data available. Post Acute Orders No qualifying data available. You Need to Schedule the Following Appointments Follow Up with EZEKIEL BURRIS MD, [facility] When Within 2-4 days Where: [address] [address] [phone] Follow Up with ROYA BASILIO MD When Within 2-4 days Where: [address] [facility], [place] [address] [phone] Follow Up with JAKI FLEMING DO, Internal Medicine, [facility] When Within 2-4 days Where: [address] [place] [address] [place] [address]- [phone] Allergies NKA Medications Please ask your primary doctor or pharmacist before taking any other medication not listed, including over the counter drugs, herbal medications, vitamins and or supplements as they may interact withyour home medications. What How Much When Why Instructions Last Dose New cephalexin (cephalexin 500 mg oral capsule) 1 cap by mouth Every 12 hours Rectal bleeding Kidney stone Duration: 7 Days Printed Prescription New cephalexin (cephalexin 500 mg oral capsule) 1 cap by mouth Every 12 hours Rectal bleeding Kidney stone Duration: 7 Days Printed Prescription New tamsulosin (Flomax 0.4 mg oral capsule) 1 cap by mouth Once a day Rectal bleeding Kidney stone Printed Prescription Unchanged acetaminophen-diphenhydramine (Tylenol PM Extra Strength oral tablet) 2 tab(s) by mouth Daily at bedtime as needed for as needed for sleep Unchanged aspirin (aspirin 81 mg oral tablet, chewable) 1 tab(s) by mouth Once a day (in the morning) Unchanged cholecalciferol (Vitamin D3 50 mcg (2000 intl units) oral capsule) 1 cap by mouth Once a day Unchanged glimepiride (Amaryl 1 mg oral tablet) 1 tab(s) by mouth Two (2) times a day Unchanged leflunomide (leflunomide 10 mg oral tablet) 1 tab(s) by mouth Once a day (in the morning) Unchanged lisinopril (lisinopril 40 mg oral tablet) 1 tab(s) by mouth Daily at bedtime Unchanged metformin-sitagliptin (Janumet 50 / 1000 mg oral tablet) 1 tab(s) by mouth Two (2) times a day Unchanged multivitamin (Multivitamin) 1 tab(s) by mouth Every day Unchanged pantoprazole (pantoprazole 40 mg oral enteric coated tablet) 1 tab(s) by mouth Once a day (in the morning) Unchanged vitamin E (vitamin E 400 intl units oral capsule) 1 cap by mouth Every day Please take this list to your next doctor s visit. Bring all medications you take, including over the counter medications, herbals and other supplements with you to your doctor s visit. Patients and families are reminded to discard old lists and to update any records with all medication providers or retail pharmacies. Education Materials Lower Gastrointestinal (GI) Bleeding (Stable) You have signs of blood in your stool. This is called rectal bleeding. The bleeding may have begun in another part of your gastrointestinal (GI) tract. If the blood is bright red, it is likely comingfrom the lower part of the GI tract. If the blood is black or dark, it might be coming from higher up in the GI tract. Very small amounts of GI bleeding may not be visible and can only be discovered during a test on your stool. Possible causes of lower GI bleeding include: Swollen inflamed veins in the rectum (hemorrhoids) Tear in the lining of the anus (anal fissures) Inflammation of a small pouch in the intestine (diverticulitis) Inflammatory bowel disease (Crohn's disease or ulcerative colitis) Polyps (growths) in the intestine Swelling and irritation of the colon (infectious colitis) Colon cancer Note: Iron supplements and medicines for diarrhea or upset stomach can cause black stools. Foods such as licorice and red beets can also discolor the stool and be mistaken for bleeding. These are notbleeding and are not a cause for alarm. Home care You have not lost a large amount of blood and your condition appears stable at this time. You may resume normal activity as long as you feel well. Don't take NSAIDs, such as aspirin, ibuprofen, or naproxen. They can irritate the stomach and causefurther bleeding. If you are taking these medicines for other medical reasons, talk to your healthcare provider before you stop them. Follow-up care Follow up with your healthcare provider, or as advised. Further tests may be needed to find the cause of your bleeding. When to seek medical advice Call your healthcare provider right away for any of the following: Large amount of rectal bleeding Increasing abdominal pain Weakness, dizziness Call 911 Call 911 if any of the following occur: Loss of consciousness Vomiting blood [phone] [employer]. [address] [place] [address]. All rights reserved. This information is not intended as a substitute for professional medical care. Always follow yourhealthcare professional's instructions. Bladder Infection, Male (Adult) You have a bladder infection. Urine is normally free of bacteria. But bacteria can get into the urinary tract from the skin around the rectum or it may travel in the blood from elsewhere in the body. This is called a urinary tract infection (UTI). An infection can occur anywhere in the urinary tract. It could be in a kidney (pyelonephritis)or in the bladder (cystitis) and urethra (urethritis). The urethra is the tube that drains the urine from the bladder through the tip of the penis. The most common place for a UTI is in the bladder. This is called a bladder infection. Most bladderinfections are easily treated. They are not serious unless the infection spreads up to the kidney. The terms bladder infection, UTI, and cystitis are often used to describe the same thing, but they aren t always the same. Cystitis is an inflammation of the bladder. The most common cause of cystitis is an infection. Keep in mind: Infections in the urine are called UTIs. Cystitis is usually caused by a UTI. Not all UTIs and cases of cystitis are bladder infections. Bladder infections are the most common type of cystitis. Symptoms of a bladder infection The infection causes inflammation in the urethra and bladder. This inflammation causes many of the symptoms. The most common symptoms of a bladder infection are: Pain or burning when urinating Having to go more often than usual Feeling like you need to go right away Only a small amount comes out Blood in urine Discomfort in your belly (abdomen), usually in the lower abdomen, above the pubic bone Cloudy, strong, or bad smelling urine Unable to urinate (retention) Urinary incontinence Fever Loss of appetite Older adults may also feel confused. Causes of a bladder infection Bladder infections are not contagious. You can't get one from someone else, from a toilet seat, or from sharing a bath. The most common cause of bladder infections is bacteria from the bowels. The bacteria get onto the skin around the opening of the urethra. From there they can get into the urine and travel up to the bladder. This causes inflammation and an infection. This usually happens because of: An enlarged prostate Poor cleaning of the genitals Procedures that put a tube in your bladder, like a Preston catheter Bowel incontinence Older age Not emptying your bladder (The urine stays there, giving the bacteria a chance to grow.) Dehydration (This allows urine to stay in the bladder longer.) Constipation (This can cause the bowels to push on the bladder or urethra and keep the bladder fromemptying.) Treatment Bladder infections are treated with antibiotics. They usually clear up quickly without complications. Treatment helps prevent a more serious kidney infection. Medicines Medicines can help in the treatment of a bladder infection: You may have been given phenazopyridine to ease burning when you urinate. It will cause your urine to be bright orange. It can stain clothing. You may have been prescribed antibiotics. Take this medicine until you have finished it, even if you feel better. Taking all of the medicine will make sure the infection has cleared. You can use acetaminophen or ibuprofen for pain, fever, or discomfort, unless another medicine was prescribed. You can also alternate them, or use both together. They work differently and are a different class of medicines, so taking them together is not an overdose. If you have chronic liver or kidney disease, talk with your healthcare provider before using these medicines. Also talk with your provider if you ve had a stomach ulcer or GI bleeding or are taking blood thinner medicines. Home care Here are some guidelines to help you care for yourself at home: Drink plenty of fluids, unless your healthcare provider told you not to. Fluids will prevent dehydration and flush out your bladder. Use good personal hygiene. Wipe from front to back after using the toilet, and clean your penis regularly. If you aren t circumcised, retract the foreskin when cleaning. Urinate more frequently, and don t try to hold it in for long periods of time, if possible. Wear loose-fitting clothes and cotton underwear. Avoid tight-fitting pants. This helps keep you clean and dry. Change your diet to prevent constipation. This means eating more fresh foods and more fiber, and less junk and fatty foods. Avoid sex until your symptoms are gone. Avoid caffeine, alcohol, and spicy foods. These can irritate the bladder. Follow-up care Follow up with your healthcare provider, or as advised if all symptoms have not cleared up within 5days. It is important to keep your follow-up appointment. You can talk with your provider to see ifyou need more tests of the urinary tract. This is especially important if you have infections that keep coming back. If a culture was done, you will be told if your treatment needs to be changed. If directed, you cancall to find out the results. If X-rays were taken, you will be told of any findings that may affect your care. Call 911 Call 911 if any of these occur: Trouble breathing Difficulty waking up Feeling confused Fainting or loss of consciousness Rapid heart rate When to seek medical advice Call your healthcare provider right away if any of these occur: Fever of 100.4 F (38 C) or higher, or as directed by your healthcare provider Your symptoms don t improve after 2 days of treatment Back or abdominal pain that gets worse Repeated vomiting, or you aren t able to keep medicine down Weakness or dizziness 5982-9489 [employer]. [address] [place] [address], [place] [address]. All rights reserved. This information is not intended as a substitute for professional medical care. Always follow yourhealthcare professional's instructions. Kidney Stone with Pain The sharp cramping pain on either side of your lower back and nausea/vomiting that you have are because of a small stone that has formed in the kidney. It is now passing down a narrow tube (ureter) on its way to your bladder. Once the stone reaches your bladder, the pain will often stop. But it maycome back as the stone continues to pass out of the bladder and through the urethra. The stone may pass in your urine stream in one piece. The size may be 1/16 inch to 1/4 inch (1 mm to 6 mm). Or, the stone may break up into andrea fragments that you may not even notice. Once you have had a kidney stone, you are at risk of getting another one in the future. There are 4types of kidney stones. Eighty percent are calcium stones mostly calcium oxalate but also some withcalcium phosphate. The other 3 types include uric acid stones, struvite stones (from a preceding infection), and rarely, cystine stones. Most stones will pass on their own, but may take from a few hours to a few days. Sometimes the stone is too large to pass by itself. In that case, the healthcare provider will need to use other ways to remove the stone. These techniques include: Lithotripsy. This uses ultrasound waves to break up the stone. Ureteroscopy. This pushes a basket-like instrument through the urethra and bladder and into the ureter to pull out the stone. Various types of direct surgery through the skin Home care The following are general care guidelines: Drink plenty of fluids. This means at least 12, 8-ounce glasses of fluid mostly water a day. Each time you urinate, do so in a jar. Pour the urine from the jar through the strainer and into the toilet. Continue doing this until 24 hours after your pain stops. By then, if there was a kidney stone, it should pass from your bladder. Some stones dissolve into sand-like particles and pass rightthrough the strainer. In that case, you won t ever see a stone. Save any stone that you find in the strainer and bring it to your healthcare provider to look at. It may be possible to stop certain types of stones from forming. For this reason, it is important to know what kind of stone you have. Try to stay as active as possible. This will help the stone pass. Don't stay in bed unless your pain keeps you from getting up. You may notice a red, pink, or brown color to your urine. This is normal while passing a kidney stone. If you develop pain, you may take ibuprofen or naproxen for pain, unless another medicine was prescribed. If you have chronic liver or kidney disease, talk with your healthcare provider before takingthese medicines. Also talk with your provider if you've had a stomach ulcer or GI bleeding. Preventing stones Each year for the next 5 to 7 years, you are at risk that a new stone will form. Your risk is a 50%chance over this time period. The risk is higher if you have a family history of kidney stones or have certain chronic illnesses like hypertension, obesity, or diabetes. But you can make changes to your lifestyle and diet that can lower your risk for another stone. Most kidney stones are made of calcium. The following is advice for preventing another calcium stone. If you don t know the type of stone you have, follow this advice until the cause of your stone isfound. Things that help: The most important thing you can do is to drink plenty of fluids each day. See home care above. Eat foods that contain phytates. These include wheat, rice, rye, barley, and beans. Phytates are substances that may lower your risk for any type of stone to form. Eat more fruits and vegetables. Choose those that are high in potassium. Eat foods high in natural citrate like fruit and low-sugar fruit juices. Having too little calcium in your diet can put you at risk for calcium kidney stones. Eat a normal amount of calcium in your diet and talk with your healthcare provider if you are taking calcium supplements. Cutting back on your calcium intake may raise your risk. New research shows that eating calcium-rich and oxalate-rich foods together lowers your risk for stones by binding the minerals in thestomach and intestines before they can reach the kidneys. Limit salt intake to 2 grams (1 teaspoon) per day. Use limited amounts when cooking, and don t add salt at the table. Processed and canned foods are usually high in salt. Spinach, rhubarb, peanuts, cashews, almonds, grapefruit, and grapefruit juice are all high oxalate foods. You should limit how much of these you eat. Or eat them with calcium-rich foods. These include dairy products, dark leafy greens, soy products, and calcium-enriched foods. Reducing the amount of animal meat and high protein foods in your diet may lower your risk for uricacid stones. Avoid excess sugar (sucrose) and fructose (sweetener in many soft drinks) in your diet. If you take vitamin C as a supplement, don't take more than 1,000 mg a day. A dietitian or your healthcare provider can give you information about changes in your diet that will help prevent more kidney stones from forming. Follow-up care Follow up with your healthcare provider, or as advised, if the pain lasts more than 48 hours. Talk with your provider about urine and blood tests to find out the cause of your stone. If you had an X-ray, CT scan, or other diagnostic test, you will be told of any new findings that may affect your care. Call 911 Call 911 if you have any of these: Weakness, dizziness, or fainting When to seek medical advice Call your healthcare provider right away if any of these occur: Pain that is not controlled by the medicine given Repeated vomiting or unable to keep down fluids Fever of 100.4 F (38 C) or higher, or as directed by your healthcare provider Passage of solid red or brown urine (can't see through it) or urine with lots of blood clots Foul-smelling or cloudy urine Unable to pass urine for 8 hours and increasing bladder pressure [id number] [employer]. [address] [place] [address]. All rights reserved. This information is not intended as a substitute for professional medical care. Always follow yourhealthcare professional's instructions. Additional Information VACCINATE! IT SAVES LIVES! Members of the community who have not yet received the COVID-19 vaccine and would like to receive it can visit one of [facility] vaccine clinics. There are many vaccine clinic locations within the [facility]. For locations and available times, please visit [email or web address] It is important to note that some COVID mobile vaccine clinics are held outdoors and may be canceled in rainy or stormy conditions. To learn more about pediatric vaccinations (ages 5-11), we invite you to visit the [facility] webpage. [email or web address] learn more about the COVID-19 vaccine, we invite you to visit the CDC website for a list of frequently asked questions. https://www.cdc.gov/coronavirus/2019-ncov/vaccines/faq.html [facility] Patient [facility] Access Instructions: Stay connected with your healthcare team and access your personal medical information anytime with the [facility] Patient Portal. If you would like a full copy of your medical records please contact the [facility] Medical Records Department Tuesday through Tuesday between 8a.m. and 4:30p.m. Please follow the directions below to access the portal: 1.Access the email account you provided upon registration to the [facility].2.Look for an invitation email from [facility].3.Open the email and access the invitation link: Accept Invitation to [facility].Fill in the required ortega to create your account. Sign into [email or web address] with your username and password that you created in the above steps to stay up to date. You can then view a summary of results, a summary of your visits, and the ability to download your summaries to your computer or send the information securely to a physician. Remember that your healthcare information is confidential, so carefully consider who you will allow to register on the [facility] Patient Portal for access to your information. You can also access the [facility] Patient Portal on the [employer]. Simply click on Health Records under Access Media 3 and then click on the [facility] logo. HOW TO SAFELY DISPOSE OF PRESCRIPTION MEDICATIONS Please use one of the following methods to safely dispose of your unused medications. 1.Use a drug disposal kit: the drug disposal pouch allows you to safely discard your old and unuseddrugs. Ask your nurse to give you one when you are discharged.2.Visit a local take-back location: Many local pharmacies and police departments have programs that collect old and unwanted prescriptiondrugs. Call your local pharmacy or go to http://bit.ly/9C0Dx2n to find one close to you.3.Make use of household items: Use cat litter or old coffee grounds to dispose medications if other options arenot available. Mix your drugs with these household products, seal them in an airtight container andthrow it into the garbage. Call [facility]: [phone] to be sure your drugs can be disposed of in this way. Some medicines may require a different approach.4.Never flush your medications down the toilet. IF YOU HAVE BEEN PRESCRIBED AN OPIOIDS FOR PAIN If you have been prescribed an opioid (such as hydrocodone, oxycodone or morphine), it is critical to understand the possible side effects and risks of opioid pain medications. Even when taken as directed, opioids can have several side effects including: Tolerance, meaning you might need to take more of a medication for the same pain relief. Nausea, vomiting and/or constipation. Sleepiness, dizziness, dry mouth, confusion, depression or itching. Physical dependence, meaning you have withdrawal symptoms when a medication is stopped ? this can develop within a few days. KNOW YOUR RESPONSIBILITIES It is important to know exactly how much and how often to take the opioid pain medications you are prescribed. Never take opioids in higher amounts or more often than prescribed. Do not combine opioids with alcohol or other drugs that cause drowsiness, such as benzodiazepines, also known as benzos,including diazepam and alprazolam, muscle relaxants or sleep aids. Never sell or share prescriptionopioids. This is illegal. Store opioids in a secure place and out of reach of others (including children, family, friends and visitors). The last page(s) of this document has been signed and retained as a CHART COPY Signatures Patient Education Materials Lower GI Bleeding (Stable) Bladder Infection, Male (Adult) Kidney Stone w/ Colic Medication Leaflets My discharge plan and instructions have been reviewed and explained to me and I,JAYLEN GALAVIZ understand my current condition and have read and understand these discharge instructions. I have received a written copy of the plan/instructions. If I have questions, I am aware that I should contact my doctor. 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 Signature: Date/Time: Relationship to Patient: Witness Name/Signature: Date/Time: [id number] Note ORIGINAL EXAMINATION: CT OF THE ABDOMEN AND PELVIS WITH CONTRAST02/20/2023 9:[address] ABDOMEN/PELVIS WITH CONTRAST Multiple axial images were obtained with coronal and sagittal reconstructions. CLINICAL INFORMATION: TECHNIQUE: CT of the abdomen and pelvis was performed with the administration of intravenous contrast. Multiplanar reformatted images are provided for review. Automated exposure control, iterative reconstruction, and/or weight based adjustment of the mA/kV was utilized to reduce the radiation dose to as low as reasonably achievable. COMPARISON: Correlation with CT abdomen pelvis 09/18/2017 HISTORY: ORDERING SYSTEM PROVIDED HISTORY: Reason for Exam: ABDOMEN PAIN, BLODDY BOWEL MOVEMENT TODAY abdominal [id number]^ FINDINGS: Lung bases/lower mediastinum: There is subpleural reticular interstitial thickening in the lung bases. Calcified pulmonary granulomata again noted. Lower heart appears enlarged. Status post median sternotomy. Liver: Within normal limits. Gallbladder/bile ducts: Normal caliber. Pancreas: Subcentimeter hypodensity in the mid spleen, too small to further characterize but likely represents a cyst. Spleen: Within normal limits. Adrenal glands: Within normal limits. Kidney/ureter/bladder: Mildly delayed right nephrogram with moderate hydronephrosis and a stone at the distal ureter measuring 7 mm. There is right perinephric stranding and wall thickening of the collecting system and ureter. There is a 1.5 cm simple cyst in the left kidney. Bowel: There is mild distal esophageal wall thickening, which is nonspecific. There is also mild gastric pyloric wall thickening without perigastric fat stranding or free air. The appendix is normal. Severe colonic diverticulosis of the transverse colon, descending and sigmoid colon. No pericolonic abscess. There is focal short segment 4.6 cm long bowel moderate wall thickening of the distal transverse colon (axial image 31 of series 2). Free air/Free Fluid: None. Reproductive organs: The prostate gland is enlarged measuring 6.3 cm in transverse dimension. Vascular/lymph nodes: No aortic aneurysm or lymphadenopathy by size criteria. Atherosclerosis of the vasculature. Bones/soft tissues: Severe degenerative change of the spine with unchanged grade 1 anterolisthesis of L4 on L5. IMPRESSION: 1. Short segment bowel wall thickening of the distal transverse colon which could represent colitis versus neoplasm. No pericolonic abscess or free air. 2. Obstructing 7 mm stone at the right ureterovesicular junction causing mild obstructive uropathy findings. Findings are also suspicious for superimposed urinary tract infection. 3. Prostatomegaly. 4. Findings suspicious for interstitial lung disease, new from prior. Interpreted by: Angelica Willson Preliminary Report By: Angelica Willson Electronically signed By Angelica Willson Dictated Date: 02/20/2023 9:52:54 PM Prelim Date: 02/20/2023 10:06:38 PM Sign Date: 02/20/2023 10:06:38 PM Ordering Provider: JEFF[facility] WILLSON [id number] Note ORIGINAL EXAMINATION: CT OF THE ABDOMEN AND PELVIS WITH CONTRAST02/20/2023 9:[address] ABDOMEN/PELVIS WITH CONTRAST Multiple axial images were obtained with coronal and sagittal reconstructions. CLINICAL INFORMATION: TECHNIQUE: CT of the abdomen and pelvis was performed with the administration of intravenous contrast. Multiplanar reformatted images are provided for review. Automated exposure control, iterative reconstruction, and/or weight based adjustment of the mA/kV was utilized to reduce the radiation dose to as low as reasonably achievable. COMPARISON: Correlation with CT abdomen pelvis 09/18/2017 HISTORY: ORDERING SYSTEM PROVIDED HISTORY: Reason for Exam: ABDOMEN PAIN, BLODDY BOWEL MOVEMENT TODAY abdominal [id number]^ FINDINGS: Lung bases/lower mediastinum: There is subpleural reticular interstitial thickening in the lung bases. Calcified pulmonary granulomata again noted. Lower heart appears enlarged. Status post median sternotomy. Liver: Within normal limits. Gallbladder/bile ducts: Normal caliber. Pancreas: Subcentimeter hypodensity in the mid spleen, too small to further characterize but likely represents a cyst. Spleen: Within normal limits. Adrenal glands: Within normal limits. Kidney/ureter/bladder: Mildly delayed right nephrogram with moderate hydronephrosis and a stone at the distal ureter measuring 7 mm. There is right perinephric stranding and wall thickening of the collecting system and ureter. There is a 1.5 cm simple cyst in the left kidney. Bowel: There is mild distal esophageal wall thickening, which is nonspecific. There is also mild gastric pyloric wall thickening without perigastric fat stranding or free air. The appendix is normal. Severe colonic diverticulosis of the transverse colon, descending and sigmoid colon. No pericolonic abscess. There is focal short segment 4.6 cm long bowel moderate wall thickening of the distal transverse colon (axial image 31 of series 2). Free air/Free Fluid: None. Reproductive organs: The prostate gland is enlarged measuring 6.3 cm in transverse dimension. Vascular/lymph nodes: No aortic aneurysm or lymphadenopathy by size criteria. Atherosclerosis of the vasculature. Bones/soft tissues: Severe degenerative change of the spine with unchanged grade 1 anterolisthesis of L4 on L5. IMPRESSION: 1. Short segment bowel wall thickening of the distal transverse colon which could represent colitis versus neoplasm. No pericolonic abscess or free air. 2. Obstructing 7 mm stone at the right ureterovesicular junction causing mild obstructive uropathy findings. Findings are also suspicious for superimposed urinary tract infection. 3. Prostatomegaly. 4. Findings suspicious for interstitial lung disease, new from prior. Interpreted by: Angelica Willson Preliminary Report By: Angelica Willson Electronically signed By Angelica Willson Dictated Date: 02/20/2023 9:52:54 PM Prelim Date: 02/20/2023 10:06:38 PM Sign Date: 02/20/2023 10:06:38 PM Ordering Provider: [facility]SON[facility] [id number] Hospital Discharge instructions Patient Education 02/01/2023 12:31:41 -[facility] Discharge Instructions Template (06/2018) (CUSTOM) [facility] SAME DAY SURGERY DISCHARGE INSTRUCTIONS PLEASE FOLLOW THE INSTRUCTIONS BELOW MARKED WITH AN X: __x_ Regular Diet: Start with clear liquids, then soup and crackers and gradually add other foods. __x_ Drink extra fluids. ___ Special Diet Instructions: ___ ACTIVITY: _x__ Avoid stress to suture line. Since you have had an anesthetic, it would be advisable not to drive, drink alcohol, or make major decisions over the next 24 hours. You may require more rest tonight and tomorrow. ___ May resume regular activity as tolerated. ___ Restrict activity as follows: ___ ___ Walk Only ___ ___ Do not go up and down stairs. ___ Do not ride in car until ___ _x__ Do not drive car for 24 hours. ___ Do not have sexual intercourse. ___ No heavy lifting, pushing or straining. __x_ Other: Follow all instructions written and verbal by Dr. Pablo. BATHING/SHOWERING: ___ Sponge bathe until office visit. ___ Sitting in tub of warm water may relieve discomfort. ___ May tub bathe _x__ May shower in 24 hours. ___ On day after surgery sit in tub of warm water to soak off dressing. DRESSING: _x__ Keep operative area dry and clean for _24 hours.__ _x__ Check the operative area for signs of bleeding. Apply pressure to the bleeding site if necessary and call your physician. ___ Change dressing as necessary using sterile dressing material or bandaid. ___ Reinforce dressing as necessary. ___ Change and care for wound as follows: ___ ___ Wear bra for ___ days following breast surgery for comfort. ___ Change drip pad as needed. ___ Wear scrotal support for comfort. WATCH FOR SIGNS OF INFECTION: (Usually appears 36-48 hours after surgery) Increased temperature (101 degrees Fahrenheit or higher) Redness or swelling Increased pain Foul odor or drainage. If you have any questions, please call your doctor at the number listed on your follow up instructions. Follow all instructions given to you by your physician. Please complete and return the survey you will be receiving in the mail to help us better serve our patients. Form: [id number] ([id number]) R: 12/1202/01/2023 12:29:06 1-[facility] URO Prostate Biopsy (06/2022)(CUSTOM) PROSTATE BIOPSY DESCRIPTION OF PROSTATE ULTRASOUND AND BIOPSY: Ultrasound uses harmless sound waves to give us pictures of the prostate and allows us to accurately guide a biopsy needle to areas of the concern. Indications for prostatic biopsy include suspicion of cancer either by suspicious finger exam of the prostate or by elevation of a prostatic cancer screening blood test (PSA). The procedure is done in the office without the need of anesthesia. Initially, a complete finger examination is done. Next the ultrasound probe, finger-like in size and shape,is placed into the rectum. With slight movement of the probe many different views are obtained. A spring-loaded fine needle is placed through the probe to take biopsies. 12 or more biopsies are usually taken. These biopsies are not usually painful. The entire exam takes 20-30 minutes. You may have some soreness around the rectum for up to one hour. You may also note blood in the urine and stool for a few days and in the semen for up to a month. We will not have the biopsies results for one weekso be patient. POSSIBLE RISKS OF PROSTATE ULTRASOUND AND BIOPSY: Blood may be noted in the stool and urine for a few days and in the semen for up to a month. Infection of the prostate or in the urine can occur even with the antibiotic preparation. You should call if you develop fever, chills, severe pain or have continuous or significant bleeding. FOLLOW-UP INSTRUCTIONS: Follow-up instructions will be given the day of your procedure. Follow Up Care 12/02/2022 16:08:47 With:EZEKIEL BURRIS MD, [facility] Address: [address] [place] [id number] [phone] When: Unknown [facility] 05-30-2023 Summary of episode note Discharge Instructions Thank you for allowing [facility] to assist you with your healthcare needs. The following is importantdischarge information regarding your hospital visit. Your Care Team JAKI FLEMING DO What to do next Scheduled Follow-Up Appointments Appointment Type When With Where Contact InformationURO OV Talk 02/14/2023 11:00 AM EDT EZEKIEL BURRIS MD [facility] URO OV 20 min 05/19/2023 10:20 AM EDANURADHA YI LOGGING OPERATIONS INSPECTOR-DAYTIME CAREGIVER [facility] CV OV 08/25/2023 11:00 AM CHARMAINE DENIS APRN-DAYTIME CAREGIVER [facility] Follow Up Appointments Follow Up with EZEKIEL BURRIS MD, [facility] When Where: [address] [place] [phone] Allergies NKA Medications Please ask your primary doctor or pharmacist before taking any other medication not listed, including over the counter drugs, herbal medications, vitamins and or supplements as they may interact withyour home medications. What How Much When Instructions Last Dose Unchanged acetaminophen- diphenhydramine (Tylenol PM ExtraStrength oral tablet) 2 tab(s) by mouth Daily at bedtime as needed for as needed for sleep Unchanged aspirin (aspirin 81 mg oral tablet, chewable) 1 tab(s) by mouth Once a day (in the morning) Unchanged cholecalciferol (Vitamin D3 50 mcg (2000 intl units) oral capsule) 1 cap by mouth Once a day Unchanged glimepiride (Amaryl 1 mg oral tablet) 1 tab(s) by mouth Two (2) times a day Unchanged herbal/ nutritional product (saw palmetto oral capsule) 1 tab(s) by mouth Once a day Unchanged leflunomide (leflunomide 10 mg oral tablet) 1 tab(s) by mouth Once a day (in the morning) Unchanged lisinopril (lisinopril 40 mg oral tablet) 1 tab(s) by mouth Daily at bedtime Unchanged metformin-sitagliptin (Janumet 50 / 1000 mg oral tablet) 1 tab(s) by mouth Two (2) times a day Unchanged multivitamin (Multivitamin) 1 tab(s) by mouth Every day Unchanged pantoprazole (pantoprazole 40 mg oral enteric coated tablet) 1 tab(s) by mouth Once a day (in the morning) Unchanged vitamin E (vitamin E 400 intl units oral capsule) 1 cap by mouth Every day Please take this list to your next doctor s visit. Bring all medications you take, including over the counter medications, herbals and other supplements with you to your doctor s visit. Patients and families are reminded to discard old lists and to update any records with all medication providers or retail pharmacies. Education Materials [facility] SAME DAY SURGERY DISCHARGE INSTRUCTIONS PLEASE FOLLOW THE INSTRUCTIONS BELOW MARKED WITH AN X: __x_ Regular Diet: Start with clear liquids, then soup and crackers and gradually add other foods. __x_ Drink extra fluids. ___ Special Diet Instructions: ___ ACTIVITY: _x__ Avoid stress to suture line. Since you have had an anesthetic, it would be advisable not to drive, drink alcohol, or make major decisions over the next 24 hours. You may require more rest tonight and tomorrow. ___ May resume regular activity as tolerated. ___ Restrict activity as follows: ___ ___ Walk Only ___ ___ Do not go up and down stairs. ___ Do not ride in car until ___ _x__ Do not drive car for 24 hours. ___ Do not have sexual intercourse. ___ No heavy lifting, pushing or straining. __x_ Other: Follow all instructions written and verbal by Dr. Pablo. BATHING/SHOWERING: ___ Sponge bathe until office visit. ___ Sitting in tub of warm water may relieve discomfort. ___ May tub bathe _x__ May shower in 24 hours. ___ On day after surgery sit in tub of warm water to soak off dressing. DRESSING: _x__ Keep operative area dry and clean for _24 hours.__ _x__ Check the operative area for signs of bleeding. Apply pressure to the bleeding site if necessary and call your physician. ___ Change dressing as necessary using sterile dressing material or bandaid. ___ Reinforce dressing as necessary. ___ Change and care for wound as follows: ___ ___ Wear bra for ___ days following breast surgery for comfort. ___ Change drip pad as needed. ___ Wear scrotal support for comfort. WATCH FOR SIGNS OF INFECTION: (Usually appears 36-48 hours after surgery) Increased temperature (101 degrees Fahrenheit or higher) Redness or swelling Increased pain Foul odor or drainage. If you have any questions, please call your doctor at the number listed on your follow up instructions. Follow all instructions given to you by your physician. Please complete and return the survey you will be receiving in the mail to help us better serve our patients. Form: [id number] ([id number]) R: 12/12 PROSTATE BIOPSY DESCRIPTION OF PROSTATE ULTRASOUND AND BIOPSY: Ultrasound uses harmless sound waves to give us pictures of the prostate and allows us to accurately guide a biopsy needle to areas of the concern. Indications for prostatic biopsy include suspicion of cancer either by suspicious finger exam of the prostate or by elevation of a prostatic cancer screening blood test (PSA). The procedure is done in the office without the need of anesthesia. Initially, a complete finger examination is done. Next the ultrasound probe, finger-like in size and shape,is placed into the rectum. With slight movement of the probe many different views are obtained. A spring-loaded fine needle is placed through the probe to take biopsies. 12 or more biopsies are usually taken. These biopsies are not usually painful. The entire exam takes 20-30 minutes. You may have some soreness around the rectum for up to one hour. You may also note blood in the urine and stool for a few days and in the semen for up to a month. We will not have the biopsies results for one weekso be patient. POSSIBLE RISKS OF PROSTATE ULTRASOUND AND BIOPSY: Blood may be noted in the stool and urine for a few days and in the semen for up to a month. Infection of the prostate or in the urine can occur even with the antibiotic preparation. You should call if you develop fever, chills, severe pain or have continuous or significant bleeding. FOLLOW-UP INSTRUCTIONS: Follow-up instructions will be given the day of your procedure. Additional Information VACCINATE! IT SAVES LIVES! Members of the community who have not yet received the COVID-19 vaccine and would like to receive it can visit one of [facility] vaccine clinics. There are many vaccine clinic locations within the [facility]. For locations and available times, please visit [email or web address].[place].gov/. It is important to note that some COVID mobile vaccine clinics are held outdoors and may be canceled in rainy or stormy conditions. To learn more about pediatric vaccinations (ages 5-11), we invite you to visit the [facility] webpage. [email or web address]/[email or web address] [email or web address] learn more about the COVID-19 vaccine, we invite you to visit the CDC website for a list of frequently asked questions.https://www.cdc.gov/coronavirus/2019-ncov/vaccines/faq.html [facility] Patient Portal Access Instructions: Stay connected with your healthcare team and access your personal medical information anytime with the [facility] Patient Portal. Please follow the directions below to create your [facility] account: 1.Access the email account you provided upon registration to the hospital/physician office.2.Look for an invitation email from [facility].3.Open the email and access the invitation link: AcceptInvitation to [facility].4.Fill in the required ortega to create your account. To access your account, visit [facility][email or web address]. Click the blue button labeled Access Patient Portal and then log in with the username and password that you created in the steps above. You will be able to view your test results, lab results, a summary of your visits, upcoming appointments and more. There is also a convenient messaging option where you can send secure messages to your p lizbethvider. In addition, you will have the ability to download any documents or summaries to your computer and/or send the information securely to a physician. Remember that your healthcare information is confidential, so carefully consider who you will allowto register on the [facility] Portal for access to your information. You can also access the [facility] Portal on the [facility] jyoti. Simply click on Patient Portal and then log into your account. If you would like to receive a full copy of your medical records, please contact the [facility] Medical Records Department by calling [phone], Tuesday through Tuesday between 8 a.m. and 4:30 p.m. HOW TO SAFELY DISPOSE OF PRESCRIPTION MEDICATIONS Please use one of the following methods to safely dispose of your unused medications. 1.Use a drug disposal kit: the drug disposal pouch allows you to safely discard your old and unuseddrugs. Ask your nurse to give you one when you are discharged.2.Visit a local take-back location: Many local pharmacies and police departments have programs that collect old and unwanted prescriptiondrugs. Call your local pharmacy or go to http://[employer].Folloze/8M4Og8m to find one close to you.3.Make use of household items: Use cat litter or old coffee grounds to dispose medications if other options arenot available. Mix your drugs with these household products, seal them in an airtight container andthrow it into the garbage. Call [facility]: [phone] to be sure your drugs can be disposed of in this way. Some medicines may require a different approach.4.Never flush your medications down the toilet. IF YOU HAVE BEEN PRESCRIBED AN OPIOID FOR PAIN If you have been prescribed an opioid (such as hydrocodone, oxycodone or morphine), it is critical to understand the possible side effects and risks of opioid pain medications. Even when taken as directed, opioids can have several side effects including: Tolerance, meaning you might need to take more of a medication for the same pain relief. Nausea, vomiting and/or constipation. Sleepiness, dizziness, dry mouth, confusion, depression or itching. Physical dependence, meaning you have withdrawal symptoms when a medication is stopped, can develop within a few days. KNOW YOUR RESPONSIBILITIES It is important to know exactly how much and how often to take the opioid pain medications you are prescribed. Never take opioids in higher amounts or more often than prescribed. Do not combine opioids with alcohol or other drugs that cause drowsiness, such as benzodiazepines, also known as benzos, including diazepam and alprazolam, muscle relaxants or sleep aids. Never sell or share prescription opioids. This is illegal. Store opioids in a secure place and out of reach of others (including children, family, friends and visitors). The last page of this document has been signed and retained as a CHART COPY. Signatures Patient Education Materials 1-SDS Discharge Instructions Template (06/2018) (CUSTOM) 1-SDS URO Prostate Biopsy (06/2022)(CUSTOM) Medication Leaflets My discharge plan and instructions have been reviewed and explained to me and I,JAYLEN GALAVIZ understand my current condition and have read and understand these discharge instructions. I have received a written copy of the plan/instructions. If I have questions, I am aware that I should contact my doctor. 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 Signature: Date/Time: Relationship to Patient: Witness Name/Signature: Date/Time: [id number] Anesthesiology Consult note Patient: JAYLEN GALAVIZ Age: 87 years Sex: Male : 1935 Associated Diagnoses: None Author: ERIKA BRO MD Postoperative Information Post Operative Info: Post op day: Post Anesthesia Care Unit. Patient location: PACU. Assessment Postanesthesia assessment Vitals: Vital signs from flowsheet : Vital Signs 02/01/2023 11:51 EDT Temperature Temporal Artery 36.6 DegC Heart Rate Monitored 57 bpm LOW Respiratory Rate 20 br/min Systolic Blood Pressure Non-Invasive 152 mmHg HI Diastolic Blood Pressure Non-Invasive 84 mmHg Mean Arterial Pressure (NBP) 103 mmHg 02/01/2023 11:35 EDT Heart Rate Monitored 62 bpm Respiratory Rate 22 br/min HI Systolic Blood Pressure Non-Invasive 134 mmHg Diastolic Blood Pressure Non-Invasive 72 mmHg Mean Arterial Pressure (NBP) 89 mmHg 02/01/2023 11:27 EDT Temperature Temporal Artery 36.5 DegC Heart Rate Monitored 60 bpm Respiratory Rate 20 br/min Systolic Blood Pressure Non-Invasive 114 mmHg Diastolic Blood Pressure Non-Invasive 72 mmHg Mean Arterial Pressure (NBP) 84 mmHg 02/01/2023 11:25 EDT Respiratory Rate - Anes 2 br/min br/min 02/01/2023 11:22 EDT Systolic Blood Pressure Non-Invasive 78 mmHg mmHg Diastolic Blood Pressure Non-Invasive 51 mmHg mmHg 02/01/2023 11:20 EDT Temperature (Route Not Specified) 34.96 DegC DegC Heart Rate Monitored 81 bpm bpm Respiratory Rate - Anes 24 br/min br/min Systolic Blood Pressure Non-Invasive 83 mmHg mmHg Diastolic Blood Pressure Non-Invasive 50 mmHg mmHg 02/01/2023 11:15 EDT Temperature (Route Not Specified) 34.73 DegC DegC Heart Rate Monitored 61 bpm bpm Respiratory Rate - Anes 13 br/min br/min Systolic Blood Pressure Non-Invasive 122 mmHg mmHg Diastolic Blood Pressure Non-Invasive 69 mmHg mmHg 02/01/2023 11:10 EDT Temperature (Route Not Specified) 33.33 DegC DegC Heart Rate Monitored 60 bpm bpm Respiratory Rate - Anes 27 br/min br/min Systolic Blood Pressure Non-Invasive 124 mmHg mmHg Diastolic Blood Pressure Non-Invasive 75 mmHg mmHg 02/01/2023 11:06 EDT Systolic Blood Pressure Non-Invasive 149 mmHg mmHg Diastolic Blood Pressure Non-Invasive 90 mmHg mmHg 02/01/2023 11:05 EDT Temperature (Route Not Specified) 37 DegC DegC Heart Rate Monitored 60 bpm bpm Respiratory Rate - Anes 15 br/min br/min 02/01/2023 9:33 EDT Temperature Temporal Artery 36.6 DegC Peripheral Pulse Rate 62 bpm Respiratory Rate 16 br/min Systolic Blood Pressure Non-Invasive 152 mmHg HI Diastolic Blood Pressure Non-Invasive 73 mmHg . Mental status: at preoperative baseline. Respiratory function: respirations are non-labored, Stable. Respiratory support: none. CV function: Stable. Cardiovascular support: none. Pain: Satisfactory. Nausea status: Satisfactory. Postoperative hydration status: within normal limits. Notes: Patient is sufficiently recovered from anesthesia to participate in the evaluation. No follow-up care needed. No complications post-anesthesia.. Digitally Signed by ERIKA BRO MD on 02/01/2023 12:13 PM [id number] Anesthesiology Consult note Patient: JAYLEN GALAVIZ Age: 87 years Sex: Male : 1935 Associated Diagnoses: None Author: ERIKA BRO MD Preoperative Information Time of last food or liquid consumption: 02/01/2023 00:00:00 Anesthesia history Patient's history: negative. Family's history: negative. Health Status Allergies: Allergic Reactions (Selected) NKA, Allergies (1) ActiveReaction NKANone Documented Current medications: (Selected) Inpatient Medications Ordered Kefzol: 2 gram(s), 20 mL, 240 mL/hr, IV Push (INT), PREOP pharm LR 1,000 mL: 20 mL/hr, Intravenous, Stop: 02/01/23 22:59:00 EDT NS 1,000 mL: 20 mL/hr, Intravenous, Stop: 02/01/23 22:59:00 EDT lidocaine 1% preservative-free injectable solution: 2.5 mg, 0.25 mL, Intradermal, prep pharm Documented Medications Documented Amaryl 1 mg oral tablet: 1 mg, 1 tab(s), Oral, BID, 30 tab(s), 0 Refill(s) Janumet 50 / 1000 mg oral tablet: 1 tab(s), Oral, BID, 0 Refill(s) Multivitamin: 1 tab(s), Oral, Daily, 0 Refill(s) Tylenol PM Extra Strength oral tablet: 2 tab(s), Oral, qHS, PRN: as needed for sleep, 20 tab(s), 0 Refill(s) Vitamin D3 50 mcg (2000 intl units) oral capsule: 50 mcg, 1 cap(s), Oral, qDay, 60 cap(s), 0 Refill(s) aspirin 81 mg oral tablet, chewable: 81 mg, 1 tab(s), Oral, qAM, 30 tab(s), 0 Refill(s) leflunomide 10 mg oral tablet: 10 mg, 1 tab(s), Oral, qAM, 0 Refill(s) lisinopril 40 mg oral tablet: 40 mg, 1 tab(s), Oral, qHS, 30 tab(s), 0 Refill(s) pantoprazole 40 mg oral enteric coated tablet: 40 mg, 1 tab(s), Oral, qAM, 0 Refill(s) saw garetho oral capsule: 1 tab(s), Oral, qDay, 0 Refill(s) vitamin E 400 intl units oral capsule: 400 International_Unit, 1 cap(s), Oral, Daily, 0 Refill(s), Medications (4) Active Scheduled: (2) ceFAZolin syringe 2 gram(s) 20 mL, IV Push (INT), PREOP pharm lidocaine 1% (MPF) 2 mL vial pf 2.5 mg 0.25 mL, Intradermal, prep pharm Continuous: (2) Lactated Ringers 1,000 mL 1,000 mL, Intravenous, 20 mL/hr NS (0.9% nacl) 1,000 mL 1,000 mL, Intravenous, 20 mL/hr PRN: (0) Problem list: Medical (Selected) CAD in [place] artery / SNOMED CT 35007443 / Confirmed Diabetes / SNOMED CT 135618012 / Confirmed Elevated PSA / SNOMED CT 4621316233 / Confirmed Family history of prostate cancer / SNOMED CT 4529216719 / Confirmed GERD - Gastro-esophageal reflux disease / SNOMED CT 1992602275 / Confirmed History of urinary retention / SNOMED CT 084088301 / Confirmed Hernia, internal / SNOMED CT 36703205 / Confirmed Nocturia / SNOMED CT 628897290 / Confirmed BPH associated with nocturia / SNOMED CT 0767179922 / Confirmed Renal insufficiency, mild / SNOMED CT 0514711157 / Confirmed Screening PSA (prostate specific antigen) / SNOMED CT 488072444 / Confirmed Synovial cyst / SNOMED CT 668000927 / Confirmed Non-Insulin Dependent Diabetes Mellitus / SNOMED CT 705774298 / Confirmed, Active Problems (37) Age-related macular degeneration Anxiety Arthritis Borderline low oxygen saturation level 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 Colon, diverticulosis CPAP (continuous positive airway pressure) dependence Diabetes Difficulty swallowing Dupuytren contracture Elevated PSA Family history of prostate cancer Fatty liver Fragile skin GERD - Gastro-esophageal reflux disease H/O polymyalgia rheumatica Hernia, internal 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 History of kidney stones History of urinary retention Hypercholesterolemia Hypertension Low iron Nocturia Non-Insulin Dependent Diabetes Mellitus On anticoagulant therapy On home oxygen therapy Presence of dental prosthetic device Renal insufficiency, mild Screening PSA (prostate specific antigen) Sleep apnea Synovial cyst Urinary incontinence Urinary urgency WBC decreased Histories Past Medical History: Active Hernia, internal (42608528) Diabetes (450170063) History of urinary retention (617657365) Comments: 01/19/2023 EDT 9:06 LAVERN Kennedy urinary retention Resolved Diastasis recti (359090095): Resolved. History of UTI (0653176947): Resolved. Comments: - 09/2017 - [facility] Family History: Diabetes mellitus Mother Asthma Brother Heart disease Mother Father Stroke Mother Heart attack Son () Arthritis 28-MAY-2014 16:49:04<$> Son Prostate cancer 03-Mar-2016 02:35:22<$> Brother Procedure history: Heart valve replacement - graft (379898475) in 2012 at 78 Years. CABG (Coronary artery bypass grafting) planned (7178231393) on 09/17/2012 at 77 Years. Carpal tunnel release (021979201). Comments: 01/19/2023 9:31 LAVERN Kennedy right Hiatus hernia repair (979193181). Colonoscopy (665159547). Dupuytren contracture (6495177572). Comments: 01/19/2023 9:32 LAVERN Kennedy right Esophagogastroduodenoscopy (506720552). Social History Social & Psychosocial Habits Alcohol 09/18/2017Risk Assessment: Denies Alcohol Use 10/01/2019 Use: denies Substance Abuse 09/18/2017Risk Assessment: Denies Substance Abuse 10/01/2019 Use: denies Tobacco 10/01/2019 Tobacco Use: denies Home/Environment 01/19/2023 Domestic Concerns None Living situation: Home/Independent Safe place to go: Yes Lives In 1st floor bedroom, 2nd floor bedroom, Multilevel home Current Home Treatments Oxygen therapy, cpap Special Services and Community Resources None Spouse Name christiano Marital Status of Patient if Patient Independent Adult: Nutrition/Health 01/19/2023 Type of diet: Regular Appetite Good Eating Difficulties Swallowing . Physical Examination Vital Signs 02/01/2023 9:33 EDT Temperature Temporal Artery 36.6 DegC Peripheral Pulse Rate 62 bpm Respiratory Rate 16 br/min Systolic Blood Pressure Non-Invasive 152 mmHg HI Diastolic Blood Pressure Non-Invasive 73 mmHg Vital Signs(last 24 hrs) Last Charted Resp Rate 16 br/min (FEBRUARY 01 09:33) SBPH 152mmHg (FEBRUARY 01 09:) DBP73 mmHg (FEBRUARY 01:) Measurements from flowsheet : Measurements 02/01/2023 9:33 EDT Height 177.8 cm Height in inches 70 inch(es) Admission Weight 96.2 kg Weight Lbs 211.6 lb [place] Body Weight 73.00 kg Admission Body Mass Index 30.43 m2 02/01/2023 9:26 EDT Body Mass Index In Error kg/m2 (In Error) Body Mass Index In Error kg/m2 (In Error) Pain assessment: Pain Assessment 02/01/2023 9:33 EDT Primary Pain Intensity 0 Pain Scale Type 0-10 Pain scale . General: Alert and oriented, No acute distress. Airway: Mallampati classification: II (soft palate, fauces, uvula visible). Dentition Evaluation: Dentures, lower, Dentures, upper. Respiratory: Lungs are clear to auscultation, Respirations are non-labored. Cardiovascular: Normal rate, Regular rhythm. Heart Sounds: Normal. Review / Management Results review: Labs (Last four charted values) Na 138(FEBRUARY 01) K 4.4(FEBRUARY 01) CO2 27(FEBRUARY 01) Cl 104(FEBRUARY 01) Cr 1.30(FEBRUARY 01) BUN H 25.0(FEBRUARY 01) Glucose H 134(FEBRUARY 01) Ca 9.6(FEBRUARY 01) , Lab results 02/01/2023 9:38 EDT SN - Assess - LOC Alert, Awake SN - Assess - Orientation Oriented X 3 02/01/2023 9:38 EDT SN - PP - Body Position Lithotomy Standard Intra-op 02/01/2023 9:37 EDT SN - Proc - Anesthesia Type MAC SN - Proc - Actual Procedure ULTRASOUND GUIDED TRANSPERINEAL PROSTATE BIOPSY SN - Preop - CTm Pt Ready for OR/Proced 02/01/2023 9:37 02/01/2023 9:36 EDT SN - GCD - Post-operative Diagnosis ELEVATED PROSTATE SPECIFIC ANTIGEN SN - GCD - Case Level Level 4 02/01/2023 9:36 EDT SN - CAt - Case Attendee SN - CAt - Case Attendee SN - CAt - Case Attendee SN - CAt - Case Attendee SN - CAt - Case Attendee SN - CAt - Case Attendee SN - CAt - Case Attendee SN - CAt - Case Attendee SN - CAt - Case Attendee SN - CAt - Case Attendee SN - CAt - Role Performed Primary Surgeon SN - CAt - Role Performed Anesthesiologist SN - CAt - Role Performed RADIOLOGIC TECHNOLOGY PROGRAM DIRECTOR SN - CAt - Role Performed Scrub Technologist SN - CAt - Role Performed Clothing And Textiles Teacher 1 02/01/2023 9:35 EDT SN - Cul - Culture Type Tissue SN - Cul - Culture Type Tissue SN - Cul - Culture Type Tissue SN - Cul - Culture Type Tissue SN - Cul - Culture Type Tissue SN - Cul - Culture Type Tissue SN - Cul - Culture Type Tissue SN - Cul - Culture Type Tissue SN - Cul - Culture Type Tissue SN - Cul - Culture Type Tissue SN - Cul - Culture Type Tissue SN - Cul - Kind Specimen SN - Cul - Kind Specimen SN - Cul - Kind Specimen SN - Cul - Kind Specimen SN - Cul - Kind Specimen SN - Cul - Kind Specimen SN - Cul - Kind Specimen SN - Cul - Kind Specimen SN - Cul - Kind Specimen SN - Cul - Kind Specimen SN - Cul - Kind Specimen 02/01/2023 9:35 EDT SN - Cul - Culture Type Tissue SN - Cul - Kind Specimen 02/01/2023 9:33 EDT Height 177.8 cm Height in inches 70 inch(es) Admission Weight 96.2 kg Weight Lbs 211.6 lb [place] Body Weight 73.00 kg Admission Body Mass Index 30.43 m2 Temperature Temporal Artery 36.6 DegC Peripheral Pulse Rate 62 bpm Respiratory Rate 16 br/min Systolic Blood Pressure Non-Invasive 152 mmHg HI Diastolic Blood Pressure Non-Invasive 73 mmHg Primary Pain Intensity 0 Pain Scale Type 0-10 Pain scale Heart Rhythm Irregular Dorsalis Pedis Pulse, Left 2+ Normal Dorsalis Pedis Pulse, Right 2+ Normal Respirations Unlabored Respiratory Pattern Regular Breath Sounds Auscultated Anterior only [place] Breath Sounds Clear Oxygen Therapy Room air Oxygen Saturation 96 % Abdomen Description Non-distended, Soft Abdomen Palpation Non-Tender Bowel Movement Last Date 01/31/2023 Bowel Sounds All Quadrants Present Urinary Elimination Voiding, no difficulties Skin Temperature Warm Skin Description Normal for ethnicity Skin Integrity Intact Skin Moisture General Dry IV Present Present Wrist Left 02/01/2023 20 gauge Peripheral IV Activity: Insert new site Peripheral IV Dressing Condition: Clean, Dry, Intact Peripheral IV Dressing Activity: Applied Peripheral IV Line Status/Patency: Continuous infusion Peripheral IV Site Condition: No complications Peripheral IV Equipment: Manual Peripheral IV Number of Attempts: 2 Neurological Symptoms Patient denies Extremity Movement Equal Characteristics of Speech Clear Level of Consciousness Alert PAWAN Yes Strength All Extremities Strong Tone All Extremities Normal Sensation All Extremities Intact Violence Risk Confused No Violence Risk Irritable No Violence Risk Boisterous No Violence Risk Verbal Threats No Violence Risk Physical Threats No Violence Risk Attacking Objects No Violence Risk Predictor Score 0 Violence Risk Intervention None Violence Risk Current Interventions None Affect/Behavior Appropriate, Calm, Cooperative Orientation Oriented x 4 Allergies No Consent Form Signed Yes Patient Dressed In Hospital gown Pre-op Preparation Dentures, full removed, Glasses removed CHG Preoperative Wash/Wipe Night before procedure, Day of procedure, Site specific wipe Non-CHG Preoperative Shampoo Shampoo, Completed Preop Nasal Swab Povidone-Iodine CHG Skin Prep Completed for Eligible Surgery History & Physical Update On Chart Yes History & Physical On Chart Yes Obstructive Sleep Apnea Assess Completed Yes MRSA/MSSA Protocol Yes Orientation Assessment Oriented x 4 Pt./Caregiver Remote Cont.Visual Monitor Verbalizes/Nonverbally indicates understanding Belongings At Bedside Glasses, Pants, Shirt, Shoes Personal Home Medications Received Received from patient's family Activity Status ADL Awake Assistive Device None NPO Status Maintained Standard Safety ID band on, Call device within reach, Bed in low position, Wheels locked, Upper/Half-Length side-rails up, Phone within reach, personal items within reach, Visitor at bedside, Safety level maintained, Non-Slip footwear Patient ID Band on and Verified Yes Implants Verified Yes Pacemaker/AICD Verified Yes Last Fluid Intake 01/31/2023 18:00 Last Food Intake 01/31/2023 18:00 Last Void 02/01/2023 9:36 02/01/2023 9:32 EDT Individuals Taught Patient Learning Readiness Willing to learn Barriers to Learning None evident Teaching Method Explanation, Printed materials Preferred Written Language [place] Preferred Spoken Language [place] General Infection Prevention Strategies Hand hygiene Surgical Site Infection Prevention SSI FAQ provided Ed-Safety Verbalizes/Nonverbally indicates understanding Ed-Infection Signs/Symptoms Verbalizes/Nonverbally indicates understanding Ed-Pain, Acute Verbalizes/Nonverbally indicates understanding 02/01/2023 9:31 EDT SN - Preop - CTm Pt in SDS Room 02/01/2023 9:31 02/01/2023 9:26 EDT Body Mass Index In Error kg/m2 (In Error) Body Mass Index In Error kg/m2 (In Error) Advance Directive Location Copy placed on paper chart (Modified) Infectious Disease Symptoms Patient states no symptoms Infectious Disease Recent Exposure No Safety Brochure Information Reviewed Yes Grzegorz Bates Video Viewed No Teaching Evaluation Verbalizes/Nonverbally indicates understanding Discharge To, Anticipated Home independently Any Contact with Sick Animals/Birds No Traveled Anywhere in Last 30 Days No Admission Note-Nursing Same Day Patient History (Modified) 02/01/2023 9:10 EDT Glucose Level 134 mg/dL HI Sodium Level 138 mEq/L Potassium Level 4.4 mEq/L Chloride 104 mEq/L CO2 27 mEq/L Electrolyte Balance 7.0 mEq/L BUN 25.0 mg/dL HI Creatinine Lvl (s) 1.30 mg/dL BUN/Creatinine Ratio 19.2 ratio Calcium Lvl 9.6 mg/dL GFR Non- 52 ml/min/1.73sqm NA GFR >60 ml/min/1.73sqm NA Creatinine Clearance Calc 42.90 mL/min . Assessment and Plan [place] [employer] (ASA) physical status classification: Class III, CAD (s/p CABG); (s/p AVR); HTN; DM; ROBERT on CPAP. Anesthetic Preoperative Plan Anesthetic technique: General. Maintenance airway: Laryngeal mask airway. Risks discussed: nausea, vomiting, headache, sore throat, dental injury, hypotension, allergic reaction, serious complications. Informed consent: signed by patient. Notes: Patient was seen and examined by Erika real MD. The medical record was reviewed. Consultations, lab results , radiographic results and cardiovascular studies examined and noted. Anesthesia was explained in detail and questions were invited and answered. We will proceed as outlined inthe plan above.. Digitally Signed by ERIKA BRO MD on 02/01/2023 10:24 AM [facility] + Plan note Future Appointments Appointment Date:07/01/2021 01:45:00 PM Scheduled Provider:MAXIMUS CORONEL JR, MD Location: [place] Appointment Type:[facility] [employer] Appointment Date:08/11/2021 11:20:00 AM Scheduled Provider:MARIYA ALVAREZ MD Location:[facility] Appointment Type:URO OV Future Scheduled Tests Laboratory* Prostate Specific Antigen 08/06/21 [facility] Evaluation + Plan note Future Appointments Appointment Date:09/15/2021 10:10:00 AM Scheduled Provider:MARIYA ALVAREZ MD Location:UROLOGY Appointment Type:URO OV [facility] Evaluation + Plan note Future Appointments Appointment Date:10/26/2022 11:10:00 AM Scheduled Provider:MARIYA ALVAREZ MD Location:UROLOGY Appointment Type:URO OV Future Scheduled Tests Laboratory* Prostate Specific Antigen 10/20/22 [facility] Evaluation + Plan note Future Appointments Appointment Date:10/26/2022 11:10:00 AM Scheduled Provider:MARIYA ALVAREZ MD Location:UROLOGY Appointment Type:URO OV Diagnostic Tests Pending * TIBC 11/05/21 Future Scheduled Tests Laboratory* Prostate Specific Antigen 10/20/22 [facility] Evaluation + Plan note Future Appointments Appointment Date:10/26/2022 11:10:00 AM Scheduled Provider:MARIYA ALVAREZ MD Location:UROLOGY Appointment Type:URO OV Future Scheduled Tests Laboratory* Prostate Specific Antigen 10/20/22 [facility] Evaluation + Plan note Future Appointments Appointment Date:08/19/2022 11:00:00 AM Scheduled Provider:CHARMAINE LO Location:[facility] [place] Appointment Type:CV [employer]ER Appointment Date:10/26/2022 11:10:00 AM Scheduled Provider:MARIYA ALVAREZ MD Location:UROLOGY Appointment Type:URO OV Future Scheduled Tests Laboratory* Prostate Specific Antigen 10/20/22 [facility] Evaluation + Plan note Future Appointments Appointment Date:10/26/2022 10:10:00 AM Scheduled Provider:EZEKIEL BURRIS MD Location:UROLOGY Appointment Type:URO OV 20 min Appointment Date:08/25/2023 11:00:00 AM Scheduled Provider:CHARMAINE LO Location:[facility] Appointment Type:CV OV Future Scheduled Tests Laboratory* Prostate Specific Antigen 10/26/22 [facility] Evaluation + Plan note Future Appointments Appointment Date:01/19/2023 11:00:00 AM Scheduled Provider:ANURADHA CHRISTINE Location:UROLOGY Appointment Type:URO OV Physical 20 min Appointment Date:02/01/2023 02:50:00 PM Scheduled Provider: Location:Main [place] Appointment Type:[facility]rology Appointment Date:02/14/2023 11:00:00 AM Scheduled Provider:EZEKIEL BURRIS MD Location:UROLOGY Appointment Type:URO OV Talk Appointment Date:05/19/2023 10:20:00 AM Scheduled Provider:ANURADHA CHRISTINE Location:UROLOGY Appointment Type:URO OV 20 min Appointment Date:08/25/2023 11:00:00 AM Scheduled Provider:CHARMAINE LO Location:[facility] Appointment Type:CV OV Future Scheduled Tests Laboratory* Basic Metabolic Panel 12/01/22 * Prostate Specific Antigen 05/19/23 * Complete Blood Count 12/01/22 [facility] Evaluation + Plan note Future Appointments Appointment Date:02/14/2023 11:00:00 AM Scheduled Provider:EZEKIEL BURRIS MD Location:UROLOGY Appointment Type:URO OV Talk Appointment Date:05/19/2023 10:20:00 AM Scheduled Provider:ANURADHA CHRISTINE Location:UROLOGY Appointment Type:URO OV 20 min Appointment Date:08/25/2023 11:00:00 AM Scheduled Provider:CHARMAINE LO Location:[facility] [place] Appointment Type:CV OV Future Scheduled Tests Laboratory* Basic Metabolic Panel 12/01/22 * Prostate Specific Antigen 05/19/23 * Complete Blood Count 12/01/22 [facility] evaluation + Plan note Future Appointments Appointment Date:03/28/2023 01:30:00 PM Scheduled Provider:EZEKIEL BURRIS MD Location:UROLOGY Appointment Type:URO OV Appointment Date:05/19/2023 10:20:00 AM Scheduled Provider:ANURADHA CHRISTINE Location:UROLOGY Appointment Type:URO OV 20 min Appointment Date:08/25/2023 11:00:00 AM Scheduled Provider:CHARMAINE LO Location:[facility] Appointment Type:CV OV Future Scheduled Tests Laboratory* Basic Metabolic Panel 12/01/22 * Prostate Specific Antigen 05/19/23 * Complete Blood Count 12/01/22 Radiology* PET/CT PSMA 02/14/23 [facility] Evaluation + Plan note Future Appointments Appointment Date:03/24/2023 11:30:00 AM Scheduled Provider: Location:XRAY Appointment Type:PET/CT PSMA Appointment Date:03/28/2023 11:00:00 AM Scheduled Provider:ANDRES ZAPIEN MD Location:RAD ONC CAN Appointment Type:RO Consult Appointment Date:03/28/2023 01:30:00 PM Scheduled Provider:EZEKIEL BURRIS MD Location:UROLOGY Appointment Type:URO OV Appointment Date:05/19/2023 10:20:00 AM Scheduled Provider:ANURADHA CHRISTINE Location:UROLOGY Appointment Type:URO OV 20 min Appointment Date:08/25/2023 11:00:00 AM Scheduled Provider:CHARMAINE LO Location:[facility] Appointment Type:CV OV Diagnostic Tests Pending * Urine Culture 02/20/23 Future Scheduled Tests Laboratory* Basic Metabolic Panel 12/01/22 * Prostate Specific Antigen 05/19/23 * Complete Blood Count 12/01/22 Radiology* PET/CT PSMA 03/24/23 [facility] evaluation + Plan note Future Appointments Appointment Date:03/16/2023 08:20:00 AM Scheduled Provider:ANURADHA CHRISTINE Location:UROLOGY Appointment Type:URO OV 20 min Appointment Date:03/24/2023 11:30:00 AM Scheduled Provider: Location:XRAY Appointment Type:PET/CT PSMA Appointment Date:03/28/2023 11:00:00 AM Scheduled Provider:ANDRES ZAPIEN MD Location:[facility] Appointment Type:RO Consult Appointment Date:03/28/2023 01:30:00 PM Scheduled Provider:EZEKIEL BURRIS MD Location:UROLOGY Appointment Type:URO OV Appointment Date:05/19/2023 10:20:00 AM Scheduled Provider:ANURADHA CHRISTINE Location:UROLOGY Appointment Type:URO OV 20 min Appointment Date:08/25/2023 11:00:00 AM Scheduled Provider:CHARMAINE LO Location:[facility] [place] Appointment Type:CV OV Future Scheduled Tests Laboratory* Basic Metabolic Panel 12/01/22 * Prostate Specific Antigen 05/19/23 * Complete Blood Count 12/01/22 Radiology* PET/CT PSMA 03/24/23 [facility] evaluation + Plan note Future Appointments Appointment Date:03/24/2023 11:30:00 AM Scheduled Provider: Location:XRAY Appointment Type:PET/CT PSMA Appointment Date:03/28/2023 11:00:00 AM Scheduled Provider:ANDRES ZAPIEN MD Location:[facility] Appointment Type:RO Consult Appointment Date:03/28/2023 01:30:00 PM Scheduled Provider:EZEKIEL BURRIS MD Location:UROLOGY Appointment Type:URO OV Appointment Date:05/19/2023 10:20:00 AM Scheduled Provider:ANURADHA CHRISTINE Location:UROLOGY Appointment Type:URO OV 20 min Appointment Date:08/25/2023 11:00:00 AM Scheduled Provider:CHARMAINE LO Location:[facility] [place] Appointment Type:CV OV Future Scheduled Tests Laboratory* Basic Metabolic Panel 12/01/22 * Prostate Specific Antigen 05/19/23 * Complete Blood Count 12/01/22 Radiology* PET/CT PSMA 03/24/23 [facility] Evaluation + Plan note Future Appointments Appointment Date:03/28/2023 11:00:00 AM Scheduled Provider:ANDRES ZAPIEN MD Location:RAD ONC CAN Appointment Type:RO Consult Appointment Date:03/28/2023 01:30:00 PM Scheduled Provider:EZEKIEL BURRIS MD Location:UROLOGY Appointment Type:URO OV Appointment Date:05/19/2023 10:20:00 AM Scheduled Provider:ANURADHA CHRISTINE Location:UROLOGY Appointment Type:URO OV 20 min Appointment Date:08/25/2023 11:00:00 AM Scheduled Provider:CHARMAINE LO Location:[facility] Appointment Type:CV OV Future Scheduled Tests Laboratory* Basic Metabolic Panel 12/01/22 * Prostate Specific Antigen 05/19/23 * Complete Blood Count 12/01/22 [facility] Evaluation + Plan note Future Appointments Appointment Date:05/19/2023 10:20:00 AM Scheduled Provider:ANURADHA CHRISTINE Location:UROLOGY Appointment Type:URO OV 20 min Appointment Date:06/28/2023 11:30:00 AM Scheduled Provider:CLOVER KATZ MD Location:HEM ONC Appointment Type:HEM ONC OV Follow Up Appointment Date:07/08/2023 08:40:00 AM Scheduled Provider:EZEKIEL BURRIS MD Location:UROLOGY Appointment Type:URO OV Appointment Date:08/25/2023 11:00:00 AM Scheduled Provider:CHARMAINE LO Location:[facility] Appointment Type:CV OV Future Scheduled Tests Laboratory* Basic Metabolic Panel 12/01/22 * Lactate Dehydrogenase 06/29/23 * Prostate Specific Antigen 06/28/23 * Prostate Specific Antigen 05/19/23 * Prostate Specific Antigen 06/29/23 * Complete Blood Count 12/01/22 * Complete Blood Count 06/29/23 * Complete Metabolic Panel 06/29/23 [facility] Evaluation + Plan note Future Appointments Appointment Date:06/28/2023 11:30:00 AM Scheduled Provider:CLOVER KATZ MD Location:HEM ONC Appointment Type:HEM ONC OV Follow Up Appointment Date:07/08/2023 08:40:00 AM Scheduled Provider:EZEKIEL BURRIS MD Location:UROLOGY Appointment Type:URO OV Appointment Date:08/25/2023 11:00:00 AM Scheduled Provider:CHARMAINE LO Location:[facility] [place] Appointment Type:CV OV Future Scheduled Tests Laboratory* Basic Metabolic Panel 12/01/22 * Lactate Dehydrogenase 06/29/23 * Prostate Specific Antigen 06/28/23 * Prostate Specific Antigen 05/19/23 * Prostate Specific Antigen 06/29/23 * Complete Blood Count 12/01/22 * Complete Blood Count 06/29/23 * Complete Metabolic Panel 06/29/23 [facility] Evaluation + Plan note Future Appointments Appointment Date:06/28/2023 11:30:00 AM Scheduled Provider:CLOVER KATZ MD Location:HEM ONC Appointment Type:HEM ONC OV Follow Up Appointment Date:07/08/2023 08:40:00 AM Scheduled Provider:EZEKIEL BURRIS MD Location:UROLOGY Appointment Type:URO OV Appointment Date:08/25/2023 11:00:00 AM Scheduled Provider:CHARMAINE LO Location:[facility] [place] Appointment Type:CV OV Future Scheduled Tests Laboratory* Basic Metabolic Panel 12/01/22 * Prostate Specific Antigen 06/28/23 * Prostate Specific Antigen 05/19/23 * Complete Blood Count 12/01/22 [facility] Evaluation + Plan note Future Appointments Appointment Date:08/05/2023 08:30:00 AM Scheduled Provider:BOWEN RAMIREZ PA-C Location:RAD [facility] Appointment Type:RO Follow Up 30 Appointment Date:08/25/2023 11:00:00 AM Scheduled Provider:CHARMAINE LO Location:[facility] [place] Appointment Type:CV OV Appointment Date:10/14/2023 10:10:00 AM Scheduled Provider:EZEKIEL BURRIS MD Location:UROLOGY Appointment Type:URO OV Appointment Date:10/18/2023 10:30:00 AM Scheduled Provider: Location:INF Appointment Type:INF Labwork Appointment Date:10/18/2023 11:15:00 AM Scheduled Provider:CLOVER KATZ MD Location:HEM ONC Appointment Type:HEM ONC OV Follow Up w/Active Treatment Appointment Date:10/18/2023 11:45:00 AM Scheduled Provider: Location:INF Appointment Type:INF Chemo: Infusion Injection 15 min Future Scheduled Tests Laboratory* Basic Metabolic Panel 12/01/22 * Prostate Specific Antigen 10/08/23 * Prostate Specific Antigen 10/17/23 * Prostate Specific Antigen 06/28/23 * Prostate Specific Antigen 05/19/23 * Complete Blood Count 12/01/22 * Complete Blood Count 10/17/23 * Complete Metabolic Panel 10/17/23 [facility] Evaluation + Plan note Future Appointments Appointment Date:08/25/2023 11:00:00 AM Scheduled Provider:CHARMAINE LO Location:[facility] [place] Appointment Type:CV OV Appointment Date:09/16/2023 09:30:00 AM Scheduled Provider:BOWEN RAMIREZ PA-C Location:RAD ONC CAN Appointment Type:RO Follow Up 30 Appointment Date:10/14/2023 10:10:00 AM Scheduled Provider:EZEKIEL BURRIS MD Location:UROLOGY Appointment Type:URO OV Appointment Date:10/18/2023 10:30:00 AM Scheduled Provider: Location:INF Appointment Type:INF Labwork Appointment Date:10/18/2023 11:15:00 AM Scheduled Provider:CLOVER KATZ MD Location:HEM ONC Appointment Type:HEM ONC OV Follow Up w/Active Treatment Appointment Date:10/18/2023 11:45:00 AM Scheduled Provider: Location:INF Appointment Type:INF Chemo: Infusion Injection 15 min Future Scheduled Tests Laboratory* Basic Metabolic Panel 12/01/22 * Prostate Specific Antigen 10/08/23 * Prostate Specific Antigen 10/17/23 * Prostate Specific Antigen 06/28/23 * Prostate Specific Antigen 05/19/23 * Complete Blood Count 12/01/22 * Complete Blood Count 10/17/23 * Complete Metabolic Panel 10/17/23 [facility] Evaluation + Plan note Future Appointments Appointment Date:09/16/2023 09:30:00 AM Scheduled Provider:BOWEN RAMIREZ PA-C Location:RAD ONC CAN Appointment Type:RO Follow Up 30 Appointment Date:10/14/2023 10:10:00 AM Scheduled Provider:EZEKIEL BURRIS MD Location:UROLOGY Appointment Type:URO OV Appointment Date:10/18/2023 10:30:00 AM Scheduled Provider: Location:INF Appointment Type:INF Labwork Appointment Date:10/18/2023 11:15:00 AM Scheduled Provider:CLOVER KATZ MD Location:HEM ONC Appointment Type:HEM ONC OV Follow Up w/Active Treatment Appointment Date:10/18/2023 11:45:00 AM Scheduled Provider: Location:INF Appointment Type:INF Chemo: Infusion Injection 15 min Future Scheduled Tests Laboratory* Basic Metabolic Panel 12/01/22 * Prostate Specific Antigen 10/08/23 * Prostate Specific Antigen 10/17/23 * Prostate Specific Antigen 06/28/23 * Prostate Specific Antigen 05/19/23 * Complete Blood Count 12/01/22 * Complete Blood Count 10/17/23 * Complete Metabolic Panel 10/17/23 [facility] Evaluation + Plan note Future Appointments Appointment Date:09/14/2023 10:00:00 AM Scheduled Provider:CHARMAINE LO Location:[facility] Appointment Type:CV OV Appointment Date:09/16/2023 09:30:00 AM Scheduled Provider:BOWEN RAMIREZ PA-C Location:RAD ONC CAN Appointment Type:RO Follow Up 30 Appointment Date:10/14/2023 10:10:00 AM Scheduled Provider:EZEKIEL BURRIS MD Location:UROLOGY Appointment Type:URO OV Appointment Date:10/18/2023 10:30:00 AM Scheduled Provider: Location:INF Appointment Type:INF Labwork Appointment Date:10/18/2023 11:15:00 AM Scheduled Provider:CLOVER KATZ MD Location:HEM ONC Appointment Type:HEM ONC OV Follow Up w/Active Treatment Appointment Date:10/18/2023 11:45:00 AM Scheduled Provider: Location:INF Appointment Type:INF Chemo: Infusion Injection 15 min Future Scheduled Tests Laboratory* Basic Metabolic Panel 12/01/22 * Prostate Specific Antigen 10/08/23 * Prostate Specific Antigen 10/17/23 * Prostate Specific Antigen 06/28/23 * Prostate Specific Antigen 05/19/23 * Complete Blood Count 12/01/22 * Complete Blood Count 10/17/23 * Complete Metabolic Panel 10/17/23 [facility] Evaluation + Plan note Future Appointments Appointment Date:09/21/2023 08:15:00 AM Scheduled Provider: Location:RAD Appointment Type:NM Myocardial Spect Rest/Stress Alondra Appointment Date:10/14/2023 10:10:00 AM Scheduled Provider:EZEKIEL BURRIS MD Location:UROLOGY Appointment Type:URO OV Appointment Date:10/18/2023 10:30:00 AM Scheduled Provider: Location:INF Appointment Type:INF Labwork Appointment Date:10/18/2023 11:15:00 AM Scheduled Provider:CLOVER KATZ MD Location:HEM ONC Appointment Type:HEM ONC OV Follow Up w/Active Treatment Appointment Date:10/18/2023 11:45:00 AM Scheduled Provider: Location:INF Appointment Type:INF Chemo: Infusion Injection 15 min Appointment Date:11/03/2023 10:00:00 AM Scheduled Provider:CHARMAINE LO Location:[facility] Appointment Type:CV OV Future Scheduled Tests Laboratory* Basic Metabolic Panel 12/01/22 * Prostate Specific Antigen 10/08/23 * Prostate Specific Antigen 10/17/23 * Prostate Specific Antigen 06/28/23 * Prostate Specific Antigen 05/19/23 * Complete Blood Count 12/01/22 * Complete Blood Count 10/17/23 * Complete Metabolic Panel 10/17/23 Radiology* NM Myocardial Spect Rest/Stress 09/21/23 [facility] Evaluation + Plan note Future Appointments Appointment Date:10/14/2023 10:10:00 AM Scheduled Provider:EZEKIEL BURRIS MD Location:UROLOGY Appointment Type:URO OV Appointment Date:10/18/2023 10:30:00 AM Scheduled Provider: Location:INF Appointment Type:INF Labwork Appointment Date:10/18/2023 11:15:00 AM Scheduled Provider:CLOVER KATZ MD Location:HEM ONC Appointment Type:HEM ONC OV Follow Up w/Active Treatment Appointment Date:10/18/2023 11:45:00 AM Scheduled Provider: Location:INF Appointment Type:INF Chemo: Infusion Injection 15 min Appointment Date:11/03/2023 10:00:00 AM Scheduled Provider:CHARMAINE LO Location:[facility] Appointment Type:CV OV Future Scheduled Tests Laboratory* Basic Metabolic Panel 12/01/22 * Basic Metabolic Panel 09/28/23 * Prostate Specific Antigen 10/08/23 * Prostate Specific Antigen 10/17/23 * Prostate Specific Antigen 06/28/23 * Prostate Specific Antigen 05/19/23 * Complete Blood Count 12/01/22 * Complete Blood Count 10/17/23 * Complete Blood Count 09/28/23 * Complete Metabolic Panel 10/17/23 Radiology* NM Myocardial Spect Rest/Stress 09/21/23 [facility] Evaluation + Plan note Future Appointments Appointment Date:10/14/2023 10:10:00 AM Scheduled Provider:EZEKIEL BURRIS MD Location:UROLOGY Appointment Type:URO OV Physical Appointment Date:10/18/2023 10:30:00 AM Scheduled Provider: Location:INF Appointment Type:INF Labwork Appointment Date:10/18/2023 11:15:00 AM Scheduled Provider:CLOVER KATZ MD Location:HEM ONC Appointment Type:HEM ONC OV Follow Up w/Active Treatment Appointment Date:10/18/2023 11:45:00 AM Scheduled Provider: Location:INF Appointment Type:INF Chemo: Infusion Injection 15 min Appointment Date:11/03/2023 10:00:00 AM Scheduled Provider:CHARMAINE LO Location:[facility] Appointment Type:CV OV Appointment Date:11/03/2023 02:20:00 PM Scheduled Provider: Location:Main [place] Appointment Type:Surgery - [facility] Future Scheduled Tests Laboratory* Basic Metabolic Panel 12/01/22 * Basic Metabolic Panel 09/28/23 * Prostate Specific Antigen 10/08/23 * Prostate Specific Antigen 06/28/23 * Prostate Specific Antigen 05/19/23 * Complete Blood Count 12/01/22 * Complete Blood Count 09/28/23 Radiology* NM Myocardial Spect Rest/Stress 09/21/23 [facility] Evaluation + Plan note Future Appointments Appointment Date:11/03/2023 10:00:00 AM Scheduled Provider:CHARMAINE LO Location:[facility] Appointment Type:CV OV Appointment Date:11/03/2023 03:45:00 PM Scheduled Provider: Location:Main [place] Appointment Type:Surgery [facility] Urology Appointment Date:04/17/2024 09:45:00 AM Scheduled Provider: Location:INF Appointment Type:INF Labwork Appointment Date:04/17/2024 10:30:00 AM Scheduled Provider:CLOVER KATZ MD Location:HEM ONC Appointment Type:HEM ONC OV Follow Up w/Active Treatment Appointment Date:04/17/2024 11:00:00 AM Scheduled Provider: Location:INF Appointment Type:INF Chemo: Infusion Injection 15 min Future Scheduled Tests Laboratory* Basic Metabolic Panel 12/01/22 * Lactate Dehydrogenase 04/17/24 * Prostate Specific Antigen 10/08/23 * Prostate Specific Antigen 06/28/23 * Prostate Specific Antigen 05/19/23 * Prostate Specific Antigen 04/17/24 * Complete Blood Count 12/01/22 * Complete Blood Count 04/17/24 * Complete Metabolic Panel 04/17/24 Radiology* NM Myocardial Spect Rest/Stress 09/21/23 [facility] Evaluation + Plan note Future Appointments Appointment Date:11/03/2023 10:00:00 AM Scheduled Provider:CHARMAINE LO Location:[facility] Appointment Type:CV OV Appointment Date:11/03/2023 03:45:00 PM Scheduled Provider: Location:Main OR Appointment Type:Surgery [facility] Urology Appointment Date:04/17/2024 09:45:00 AM Scheduled Provider: Location:INF Appointment Type:INF Labwork Appointment Date:04/17/2024 10:30:00 AM Scheduled Provider:CLOVER KATZ MD Location:HEM ONC Appointment Type:HEM ONC OV Follow Up w/Active Treatment Appointment Date:04/17/2024 11:00:00 AM Scheduled Provider: Location:INF Appointment Type:INF Chemo: Infusion Injection 15 min Diagnostic Tests Pending * Urine Culture 10/24/23 Future Scheduled Tests Laboratory* Basic Metabolic Panel 12/01/22 * Lactate Dehydrogenase 04/17/24 * Prostate Specific Antigen 10/08/23 * Prostate Specific Antigen 06/28/23 * Prostate Specific Antigen 05/19/23 * Prostate Specific Antigen 04/17/24 * Complete Blood Count 12/01/22 * Complete Blood Count 04/17/24 * Complete Metabolic Panel 04/17/24 Radiology* NM Myocardial Spect Rest/Stress 09/21/23 [facility] Evaluation + Plan note Future Appointments Appointment Date:11/04/2023 09:30:00 AM Scheduled Provider:KYAW LUCIANO Location:UROLOGY Appointment Type:URO OV Appointment Date:11/14/2023 10:15:00 AM Scheduled Provider:CHARMAINE LO Location:[facility] Appointment Type:CV OV Appointment Date:04/17/2024 09:45:00 AM Scheduled Provider: Location:INF Appointment Type:INF Labwork Appointment Date:04/17/2024 10:30:00 AM Scheduled Provider:CLOVER KATZ MD Location:HEM ONC Appointment Type:HEM ONC OV Follow Up w/Active Treatment Appointment Date:04/17/2024 11:00:00 AM Scheduled Provider: Location:INF Appointment Type:INF Chemo: Infusion Injection 15 min Future Scheduled Tests Laboratory* Basic Metabolic Panel 12/01/22 * Lactate Dehydrogenase 04/17/24 * Prostate Specific Antigen 10/08/23 * Prostate Specific Antigen 06/28/23 * Prostate Specific Antigen 05/19/23 * Prostate Specific Antigen 04/17/24 * Complete Blood Count 12/01/22 * Complete Blood Count 04/17/24 * Complete Metabolic Panel 04/17/24 Radiology* NM Myocardial Spect Rest/Stress 09/21/23 [facility] Evaluation + Plan note Future Appointments Appointment Date:11/14/2023 10:15:00 AM Scheduled Provider:CHARMAINE LO Location:[facility] Appointment Type:CV OV Appointment Date:04/17/2024 09:45:00 AM Scheduled Provider: Location:INF Appointment Type:INF Labwork Appointment Date:04/17/2024 10:30:00 AM Scheduled Provider:CLOVER KATZ MD Location:HEM ONC Appointment Type:HEM ONC OV Follow Up w/Active Treatment Appointment Date:04/17/2024 11:00:00 AM Scheduled Provider: Location:INF Appointment Type:INF Chemo: Infusion Injection 15 min Future Scheduled Tests Laboratory* Basic Metabolic Panel 12/01/22 * Lactate Dehydrogenase 04/17/24 * Prostate Specific Antigen 10/08/23 * Prostate Specific Antigen 06/28/23 * Prostate Specific Antigen 05/19/23 * Prostate Specific Antigen 04/17/24 * Complete Blood Count 12/01/22 * Complete Blood Count 04/17/24 * Complete Metabolic Panel 04/17/24 Radiology* NM Myocardial Spect Rest/Stress 09/21/23 * XR Abdomen AP 11/25/23 [facility] Evaluation + Plan note Future Appointments Appointment Date:11/21/2023 08:00:00 AM Scheduled Provider: Location:RAD Appointment Type:NM Myocardial Spect Rest/Stress Alondra Appointment Date:11/23/2023 10:40:00 AM Scheduled Provider:EZEKIEL BURRIS MD Location:UROLOGY Appointment Type:URO Off Proc Cysto w/ Foreign Body Remov Appointment Date:02/23/2024 09:30:00 AM Scheduled Provider:CHARMAINE LO [facility] Appointment Type:CV OV Appointment Date:04/17/2024 09:45:00 AM Scheduled Provider: Location:INF Appointment Type:INF Labwork Appointment Date:04/17/2024 10:30:00 AM Scheduled Provider:CLOVER KATZ MD Location:HEM ONC Appointment Type:HEM ONC OV Follow Up w/Active Treatment Appointment Date:04/17/2024 11:00:00 AM Scheduled Provider: Location:INF Appointment Type:INF Chemo: Infusion Injection 15 min Future Scheduled Tests Laboratory* Basic Metabolic Panel 12/01/22 * Lactate Dehydrogenase 04/17/24 * Prostate Specific Antigen 10/08/23 * Prostate Specific Antigen 06/28/23 * Prostate Specific Antigen 05/19/23 * Prostate Specific Antigen 04/17/24 * Complete Blood Count 12/01/22 * Complete Blood Count 04/17/24 * Complete Metabolic Panel 04/17/24 Radiology* NM Myocardial Spect Rest/Stress 11/21/23 * NM Myocardial Spect Rest/Stress 09/21/23 [facility] Evaluation + Plan note Future Appointments Appointment Date:11/23/2023 10:40:00 AM Scheduled Provider:EZEKIEL BURRIS MD Location:UROLOGY Appointment Type:URO Off Proc Cysto w/ Foreign Body Remov Appointment Date:02/23/2024 09:30:00 AM Scheduled Provider:CHARMAINE LO Location:[facility] Appointment Type:CV OV Appointment Date:04/17/2024 09:45:00 AM Scheduled Provider: Location:INF Appointment Type:INF Labwork Appointment Date:04/17/2024 10:30:00 AM Scheduled Provider:CLOVER KATZ MD Location:HEM ONC Appointment Type:HEM ONC OV Follow Up w/Active Treatment Appointment Date:04/17/2024 11:00:00 AM Scheduled Provider: Location:INF Appointment Type:INF Chemo: Infusion Injection 15 min Future Scheduled Tests Laboratory* Basic Metabolic Panel 12/01/22 * Lactate Dehydrogenase 04/17/24 * Prostate Specific Antigen 10/08/23 * Prostate Specific Antigen 06/28/23 * Prostate Specific Antigen 05/19/23 * Prostate Specific Antigen 04/17/24 * Complete Blood Count 12/01/22 * Complete Blood Count 04/17/24 * Complete Metabolic Panel 04/17/24 Radiology* NM Myocardial Spect Rest/Stress 09/21/23 [facility] Evaluation + Plan note Future Appointments Appointment Date:02/23/2024 09:30:00 AM Scheduled Provider:CHARMAINE LO Location:[facility] Appointment Type:CV OV Appointment Date:04/17/2024 09:45:00 AM Scheduled Provider: Location:INF Appointment Type:INF Labwork Appointment Date:04/17/2024 10:30:00 AM Scheduled Provider:CLOVER KATZ MD Location:HEM ONC Appointment Type:HEM ONC OV Follow Up w/Active Treatment Appointment Date:04/17/2024 11:00:00 AM Scheduled Provider: Location:INF Appointment Type:INF Chemo: Infusion Injection 15 min Future Scheduled Tests Laboratory* Basic Metabolic Panel 12/01/22 * Lactate Dehydrogenase 04/17/24 * Prostate Specific Antigen 10/08/23 * Prostate Specific Antigen 06/28/23 * Prostate Specific Antigen 05/19/23 * Prostate Specific Antigen 04/17/24 * Complete Blood Count 12/01/22 * Complete Blood Count 04/17/24 * Complete Metabolic Panel 04/17/24 Radiology* NM Myocardial Spect Rest/Stress 09/21/23 [facility] Evaluation + Plan note Future Appointments Appointment Date:02/21/2024 09:30:00 AM Scheduled Provider:CHARMAINE LO [facility] Appointment Type:CV OV Appointment Date:04/17/2024 09:45:00 AM Scheduled Provider: Location:INF Appointment Type:INF Labwork Appointment Date:04/17/2024 10:30:00 AM Scheduled Provider:CLOVER KATZ MD Location:HEM ONC Appointment Type:HEM ONC OV Follow Up w/Active Treatment Appointment Date:04/17/2024 11:00:00 AM Scheduled Provider: Location:INF Appointment Type:INF Chemo: Infusion Injection 15 min Future Scheduled Tests Laboratory* Lactate Dehydrogenase 04/17/24 * Prostate Specific Antigen 10/08/23 * Prostate Specific Antigen 06/28/23 * Prostate Specific Antigen 05/19/23 * Prostate Specific Antigen 04/17/24 * Complete Blood Count 04/17/24 * Complete Metabolic Panel 04/17/24 Radiology* NM Myocardial Spect Rest/Stress 09/21/23 [facility] Evaluation + Plan note Future Appointments Appointment Date:09/21/2023 08:15:00 AM Scheduled Provider: Location:RAD Appointment Type:NM Myocardial Spect Rest/Stress Alondra Appointment Date:10/14/2023 10:10:00 AM Scheduled Provider:EZEKIEL BURRIS MD Location:UROLOGY Appointment Type:URO OV Appointment Date:10/18/2023 10:30:00 AM Scheduled Provider: Location:INF Appointment Type:INF Labwork Appointment Date:10/18/2023 11:15:00 AM Scheduled Provider:CLOVER KATZ MD Location:HEM ONC Appointment Type:HEM ONC OV Follow Up w/Active Treatment Appointment Date:10/18/2023 11:45:00 AM Scheduled Provider: Location:INF Appointment Type:INF Chemo: Infusion Injection 15 min Appointment Date:11/03/2023 10:00:00 AM Scheduled Provider:CHARMAINE LO Location:[facility] Appointment Type:CV OV Diagnostic Tests Pending * Urine Culture 09/20/23 Future Scheduled Tests Laboratory* Basic Metabolic Panel 12/01/22 * Prostate Specific Antigen 10/08/23 * Prostate Specific Antigen 10/17/23 * Prostate Specific Antigen 06/28/23 * Prostate Specific Antigen 05/19/23 * Complete Blood Count 12/01/22 * Complete Blood Count 10/17/23 * Complete Metabolic Panel 10/17/23 Radiology* NM Myocardial Spect Rest/Stress 09/21/23 [facility] Evaluation + Plan note Future Appointments Appointment Date:03/01/2024 10:00:00 AM Scheduled Provider: Location:RAD Appointment Type:Echo - Echocardiogram Adult Appointment Date:04/17/2024 09:45:00 AM Scheduled Provider: Location:INF Appointment Type:INF Labwork Appointment Date:04/17/2024 10:30:00 AM Scheduled Provider:CLOVER KATZ MD Location:HEM ONC Appointment Type:HEM ONC OV Follow Up w/Active Treatment Appointment Date:04/17/2024 11:00:00 AM Scheduled Provider: Location:INF Appointment Type:INF Chemo: Infusion Injection 15 min Appointment Date:05/24/2024 09:00:00 AM Scheduled Provider:CHARMAINE LO Location:[facility] Appointment Type:CV OV Future Scheduled Tests Laboratory* Lactate Dehydrogenase 04/17/24 * Prostate Specific Antigen 10/08/23 * Prostate Specific Antigen 06/28/23 * Prostate Specific Antigen 05/19/23 * Prostate Specific Antigen 04/17/24 * Complete Blood Count 04/17/24 * Complete Metabolic Panel 04/17/24 * N-Terminal proBNP 02/21/24 Radiology* NM Myocardial Spect Rest/Stress 09/21/23 [facility] Evaluation + Plan note Future Appointments Appointment Date:04/17/2024 09:45:00 AM Scheduled Provider: Location:INF Appointment Type:INF Labwork Appointment Date:04/17/2024 10:30:00 AM Scheduled Provider:CLOVER KATZ MD Location:HEM ONC Appointment Type:HEM ONC OV Follow Up w/Active Treatment Appointment Date:04/17/2024 11:00:00 AM Scheduled Provider: Location:INF Appointment Type:INF Chemo: Infusion Injection 15 min Appointment Date:05/24/2024 09:00:00 AM Scheduled Provider:CHARMAINE LO Location:[facility] Appointment Type:CV OV Future Scheduled Tests Laboratory* Lactate Dehydrogenase 04/17/24 * Prostate Specific Antigen 10/08/23 * Prostate Specific Antigen 06/28/23 * Prostate Specific Antigen 05/19/23 * Prostate Specific Antigen 04/17/24 * Complete Blood Count 04/17/24 * Complete Metabolic Panel 04/17/24 * N-Terminal proBNP 02/21/24 Radiology* NM Myocardial Spect Rest/Stress 09/21/23 [facility] Evaluation + Plan note Future Appointments Appointment Date:03/13/2024 09:00:00 AM Scheduled Provider: Location:RAD Appointment Type:[facility] - Duplex Scan Aorta/Iliacs Comple Appointment Date:04/17/2024 09:45:00 AM Scheduled Provider: Location:INF Appointment Type:INF Labwork Appointment Date:04/17/2024 10:30:00 AM Scheduled Provider:CLOVER KATZ MD Location:HEM ONC Appointment Type:HEM ONC OV Follow Up w/Active Treatment Appointment Date:04/17/2024 11:00:00 AM Scheduled Provider: Location:INF Appointment Type:INF Chemo: Infusion Injection 15 min Appointment Date:05/24/2024 09:00:00 AM Scheduled Provider:CHARMAINE LO Location:[facility] Appointment Type:CV OV Future Scheduled Tests Laboratory* Lactate Dehydrogenase 04/17/24 * Prostate Specific Antigen 10/08/23 * Prostate Specific Antigen 06/28/23 * Prostate Specific Antigen 05/19/23 * Prostate Specific Antigen 04/17/24 * Complete Blood Count 04/17/24 * Complete Metabolic Panel 04/17/24 * N-Terminal proBNP 02/21/24 Radiology* NM Myocardial Spect Rest/Stress 09/21/23 [facility] Evaluation + Plan note Future Appointments Appointment Date:05/24/2024 09:00:00 AM Scheduled Provider:CHARMAINE LO Location:[facility] Appointment Type:CV OV Appointment Date:07/17/2024 09:00:00 AM Scheduled Provider:KAYLIE MEJÍA Location:UROLOGY Appointment Type:URO OV Future Scheduled Tests Laboratory* Lactate Dehydrogenase 04/17/24 * Prostate Specific Antigen 23 * Prostate Specific Antigen 06/28/23 * Prostate Specific Antigen 05/19/23 * Prostate Specific Antigen 07/20/24 * Prostate Specific Antigen 04/17/24 * Complete Blood Count 04/17/24 * Complete Metabolic Panel 04/17/24 * N-Terminal proBNP 02/21/24 Radiology* NM Myocardial Spect Rest/Stress 09/21/23 [facility] evaluation + Plan note Future Appointments Appointment Date:07/17/2024 09:00:00 AM Scheduled Provider:KAYLIE MEJÍA Location:UROLOGY Appointment Type:URO OV Appointment Date:12/11/2024 10:30:00 AM Scheduled Provider:CHARMAINE LO Location:[facility] Appointment Type:CV OV Future Scheduled Tests Laboratory* Lactate Dehydrogenase 04/17/24 * Prostate Specific Antigen 2 * Prostate Specific Antigen 06/28/23 * Prostate Specific Antigen 05/19/23 * Prostate Specific Antigen 07/20/24 * Prostate Specific Antigen 04/17/24 * Complete Blood Count 04/17/24 * Complete Metabolic Panel 04/17/24 * N-Terminal proBNP 02/21/24 Radiology* NM Myocardial Spect Rest/Stress 09/21/23 [facility] Evaluation + Plan note Future Appointments Appointment Date:07/20/2024 01:50:00 PM Scheduled Provider:EZEKIEL BURRIS MD Location:UROLOGY Appointment Type:URO OV Appointment Date:12/11/2024 10:30:00 AM Scheduled Provider:CHARMAINE LO Location:[facility] Appointment Type:CV OV Future Scheduled Tests Laboratory* Lactate Dehydrogenase 04/17/24 * Prostate Specific Antigen 2324 * Prostate Specific Antigen 06/28/23 * Prostate Specific Antigen 04/17/24 * Complete Blood Count 04/17/24 * Complete Metabolic Panel 04/17/24 * N-Terminal proBNP 02/21/24 Radiology* NM Myocardial Spect Rest/Stress 09/21/23 [facility] Evaluation + Plan note Future Appointments Appointment Date:08/17/2024 10:00:00 AM Scheduled Provider: Location:RAD Appointment Type:VL - Venous US/Doppler One Leg (for DVT) Appointment Date:12/11/2024 10:30:00 AM Scheduled Provider:CHARMAINE LO Location:[facility] Appointment Type:CV OV Appointment Date:01/21/2025 01:50:00 PM Scheduled Provider:EZEKIEL BURRIS MD Location:UROLOGY Appointment Type:URO OV Future Scheduled Tests Laboratory* Lactate Dehydrogenase 04/17/24 * Prostate Specific Antigen 2 * Prostate Specific Antigen 04/17/24 * Prostate Specific Antigen 01/17/25 * Complete Blood Count 04/17/24 * Complete Metabolic Panel 04/17/24 * N-Terminal proBNP 02/21/24 Radiology* NM Myocardial Spect Rest/Stress 09/21/23 [facility] Evaluation + Plan note Future Appointments Appointment Date:12/11/2024 10:30:00 AM Scheduled Provider:CHARMAINE LO Location:[facility] Appointment Type:CV OV Appointment Date:01/21/2025 01:50:00 PM Scheduled Provider:EZEKIEL BURRIS MD Location:UROLOGY Appointment Type:URO OV Future Scheduled Tests Laboratory* Lactate Dehydrogenase 04/17/24 * Prostate Specific Antigen 23 * Prostate Specific Antigen 04/17/24 * Prostate Specific Antigen 01/17/25 * Complete Blood Count 04/17/24 * Complete Metabolic Panel 04/17/24 * N-Terminal proBNP 02/21/24 Radiology* NM Myocardial Spect Rest/Stress 09/21/23 [facility] Evaluation + Plan note Future Appointments Appointment Date:10/17/2024 08:00:00 AM Scheduled Provider: Location:Echo Appointment Type:CV EL w/o Anesthesia Appointment Date:12/11/2024 10:30:00 AM Scheduled Provider:CHARMAINE LO Location:[facility] Appointment Type:CV OV Appointment Date:01/21/2025 01:50:00 PM Scheduled Provider:EZEKIEL BURRIS MD Location:UROLOGY Appointment Type:URO OV Diagnostic Tests Pending * Lyme Disease Serology w/Reflex 10/03/24 Future Scheduled Tests Laboratory* Lactate Dehydrogenase 04/17/24 * Prostate Specific Antigen 23 * Prostate Specific Antigen 04/17/24 * Prostate Specific Antigen 01/17/25 * Complete Blood Count 04/17/24 * Complete Metabolic Panel 04/17/24 * N-Terminal proBNP 02/21/24 [facility] Evaluation + Plan note Future Appointments Appointment Date:12/11/2024 10:30:00 AM Scheduled Provider:CHARMAINE LO Location:[facility] Appointment Type:CV OV Appointment Date:01/21/2025 01:50:00 PM Scheduled Provider:EZEKIEL BURRIS MD Location:UROLOGY Appointment Type:URO OV Future Scheduled Tests Laboratory* Lactate Dehydrogenase 04/17/24 * Prostate Specific Antigen 2 * Prostate Specific Antigen 04/17/24 * Prostate Specific Antigen 01/17/25 * Complete Blood Count 04/17/24 * Complete Metabolic Panel 04/17/24 * N-Terminal proBNP 02/21/24 [facility] Evaluation + Plan note Future Appointments Appointment Date:12/11/2024 10:30:00 AM Scheduled Provider:CHARMAINE LO Location:[facility] Appointment Type:CV OV Appointment Date:01/21/2025 01:50:00 PM Scheduled Provider:EZEKIEL BURRIS MD Location:UROLOGY Appointment Type:URO OV Future Scheduled Tests Laboratory* Lactate Dehydrogenase 04/17/24 * Prostate Specific Antigen 04/17/24 * Prostate Specific Antigen 01/17/25 * Complete Blood Count 04/17/24 * Complete Metabolic Panel 04/17/24 * N-Terminal proBNP 02/21/24 [facility] Evaluation + Plan note Future Appointments Appointment Date:02/20/2025 02:40:00 PM Scheduled Provider:KAYLIE MEJÍA Location:UROLOGY Appointment Type:URO OV Appointment Date:06/20/2025 10:00:00 AM Scheduled Provider:CHARMAINE LO Location:[facility] Appointment Type:CV OV Future Scheduled Tests Laboratory* Lactate Dehydrogenase 04/17/24 * Prostate Specific Antigen 04/17/24 * Complete Blood Count 04/17/24 * Complete Metabolic Panel 04/17/24 * N-Terminal proBNP 02/21/24 [facility] Evaluation + Plan note Future Appointments Appointment Date:06/20/2025 10:00:00 AM Scheduled Provider:CHARMAINE LO Location:[facility] Appointment Type:CV OV Appointment Date:08/26/2025 01:10:00 PM Scheduled Provider:RUBINA CEE MD Location:UROLOGY Appointment Type:URO OV Future Scheduled Tests Laboratory* Lactate Dehydrogenase 04/17/24 * Prostate Specific Antigen 08/22/25 * Prostate Specific Antigen 04/17/24 * Complete Blood Count 04/17/24 * Complete Metabolic Panel 04/17/24 [facility] Evaluation + Plan note Future Appointments Appointment Date:08/26/2025 01:10:00 PM Scheduled Provider:RUBINA CEE MD Location:UROLOGY Appointment Type:URO OV Appointment Date:12/19/2025 10:00:00 AM Scheduled Provider:CHARMAINE LO Location:[facility] Appointment Type:CV OV Future Scheduled Tests Laboratory* Prostate Specific Antigen 08/22/25 [facility] Evaluation note* Diagnosis Multiple open wounds- Primary Open wound(s) (multiple) of unspecified site(s), without mention of complication Cellulitis of left buttock Cellulitis and abscess of buttock [facility] Diagnosis Injury of left upper arm, initial encounter- Primary Biceps tendonitis on left Bicipital tenosynovitis Injury of left upper arm, initial encounter documented in this encounter [facility] note* Diagnosis Injury of left upper arm, initial encounter documented in this encounter [facility] note* Diagnosis Anemia, unspecified type- Primary Other pancytopenia (HCC) Other pancytopenia documented in this encounter [facility] note* Diagnosis Anemia, unspecified type- Primary documented in this encounter [facility] noteNo assessment information availableWBrec[facility] Work Phone: Evaluation note* Diagnosis Anemia, unspecified type- Primary [facility] Narrative No data available for this section [facility] Hospital Discharge instructions No data available for this section [facility] Progress note No data available for this section [facility] Reason for referral (narrative)No reason for referral information availableWBrecks[facility] Work Phone: Reason for visit Narrative* Diagnostic Procedure Only (Routine) - Closed Specialty Diagnoses / Procedures Referred By Contac t Referred To Contact XR IMAGING Diagnoses Injury of left upper arm, initial encounter Procedures XR HUMERUS 2V AP/LAT LEFT RADEX HUMERUS MINIMUM 2 VIEWS 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, LOGGING OPERATIONS INSPECTOR.[employer] C[employer]IVER [address] [place] [address] Phone: tel: fax: XR IMAGING [place] [id number] Referral ID Status Reason Start Date Expiration Date V isits Requested Visits Authorized [id number] Closed Auto-Generate d Referral 11/29/2024 12/29/2025 1 1 [facility] note* Elsa Herrera: PERFORM Event Display: Patient Summary Documents Authored Date: [facility]* Elsa Herrera: PERFORM Event Display: Patient Summary Documents Authored Date: [facility] Summary Purpose Family History No Family History Records FoundNo Family History Records Found No data available for this section No data available for this section No data available for this section No data available for this section No data available for this section No data available for this section No data available for this section No data available for this section No data available for this section No data available for this section No data available for this section No data available for this section No data available for this section No data available for this section No data available for this section No data available for this section No data available for this section No data available for this section No data available for this section No data available for this section No data available for this section No data available for this section No data available for this section No data available for this section No data available for this section No data available for this section No data available for this section No data available for this section No data available for this section No data available for this section No data available for this section No Family History Records Found No data available for this section No data available for this section No data available for this section No data available for this section No data available for this section No data available for this section No data available for this section No data available for this section No data available for this section No data available for this section No data available for this section No data available for this section No data available for this section No data available for this section No data available for this section No Family History Records Found No data available for this section No data available for this section No data available for this section No Family History Records FoundNo Family History Records FoundNo Family History Records Found No data available for this section No Family History Records Found Advance Directives No Advanced Directives Records FoundDocuments on File Type Date Recorded 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 Advance Directive(s) 02/22/2025 3:18 PM Additional Source Comments (unrecognized sect ion and content) No Status Records FoundNo Status Records FoundNo Status Records FoundNo Status Records FoundNo Status Records FoundNo Status Records FoundNo Status Records FoundNo Status Records Found INFORMATION SOURCE (unrecogn ized section and content) DATE CREATED AUTHOR 02/27/2018 [facility] [place] DATE CREATED AUTHOR AUTHOR'S ORGANIZ ATION 03/01/2018 [facility] DATE CREATED AUTHOR AUTHOR'S ORGANIZ ATION 04/25/2024 [facility] [facility] ([place] DATE CREATED AUTHOR AUTHOR'S ORGANIZ ATION 11/30/2024 [facility] DATE CREATED AUTHOR AUTHOR'S ORGANIZ ATION 03/22/2025 [facility] DATE CREATED AUTHOR AUTHOR'S ORGANIZ ATION 05/10/2025 [facility] DATE CREATED AUTHOR AUTHOR'S ORGANIZ ATION 06/29/2025 [facility] DATE CREATED AUTHOR AUTHOR'S ORGANIZ ATION 07/12/2025 [facility] Source Comments (unrecognize d section and content) In the event this informatio n is protected by the Federal Confidentiality of Alcohol and Drug Abuse Patient Records regulations: The Federal rules restrict any use of the information to criminally investigate or prosecute any alcohol or drug abuse patient.[facility] the event this information is protected by the Federal Confidentiality of Alcohol and Drug Abuse Patient Records regulations: The Federal rules restrict any use of the information to criminally investigate or prosecute any alcohol or drug abuse patient.[facility] HospitalIn the event this information is protected by the Federal Confidentiality of Alcohol and Drug Abuse Patient Records regulations: The Federal rules restrict any use of the information to criminally investigate or prosecute any alcohol or drug abuse patient.[facility] Hospital[facility] the event this information is protected by the Federal Confidentiality of Alcohol and Drug Abuse Patient Records regulations: The Federal rules restrict any use of the information to criminally investigate or prosecute any alcohol or drug abuse patient.[facility] HospitalIn the event this information is protected by the Federal Confidentiality of Alcohol and Drug Abuse Patient Records regulations: The Federal rules restrict any use of the information to criminally investigate or prosecute any alcohol or drug abuse patient.[facility] HospitalIn the event this information is protected by the Federal Confidentiality of Alcohol and Drug Abuse Patient Records regulations: The Federal rules restrict any use of the information to criminally investigate or prosecute any alcohol or drug abuse patient.[facility] HospitalIn the event this information is protected by the Federal Confidentiality of Alcohol and Drug Abuse Patient Records regulations: The Federal rules restrict any use of the information to criminally investigate or prosecute any alcohol or drug abuse patient.[facility] HospitalIn the event this information is protected by the Federal Confidentiality of Alcohol and Drug Abuse Patient Records regulations: The Federal rules restrict any use of the information to criminally investigate or prosecute any alcohol or drug abuse patient.[facility] Hospital[facility] the event this information is protected by the Federal Confidentiality of Alcohol and Drug Abuse Patient Records regulations: The Federal rules restrict any use of the information to criminally investigate or prosecute any alcohol or drug abuse patient.[facility] HospitalIn the event this information is protected by the Federal Confidentiality of Alcohol and Drug Abuse Patient Records regulations: The Federal rules restrict any use of the information to criminally investigate or prosecute any alcohol or drug abuse patient.[facility] HospitalIn the event this information is protected by the Federal Confidentiality of Alcohol and Drug Abuse Patient Records regulations: The Federal rules restrict any use of the information to criminally investigate or prosecute any alcohol or drug abuse patient.[facility] HospitalIn the event this information is protected by the Federal Confidentiality of Alcohol and Drug Abuse Patient Records regulations: The Federal rules restrict any use of the information to criminally investigate or prosecute any alcohol or drug abuse patient.[facility] HospitalIn the event this information is protected by the Federal Confidentiality of Alcohol and Drug Abuse Patient Records regulations: The Federal rules restrict any use of the information to criminally investigate or prosecute any alcohol or drug abuse patient.[facility] HospitalIn the event this information is protected by the Federal Confidentiality of Alcohol and Drug Abuse Patient Records regulations: The Federal rules restrict any use of the information to criminally investigate or prosecute any alcohol or drug abuse patient.[facility] Care Team (unrecognized sect ion and content) V Belt Curer Relationship Specialty Start Date End Date Jaki Fleming DO PCP - General Internal Medicine 10/26/10 [employer] Curer Relationship Specialty Start Date End Date Jaki Fleming DO PCP - General Internal Medicine 10/26/10 [employer] Curer Relationship Specialty Start Date End Date Jaki Fleming DO PCP - General Internal Medicine 10/26/10 V Belt Curer Relationship Specialty Start Date End Date Jaki Fleming DO PCP - General Internal Medicine 10/26/10 V Belt Curer Relationship Specialty Start Date End Date Jaki Fleming DO PCP - General Internal Medicine 10/26/10 V Belt Curer Relationship Specialty Start Date End Date Jaki Fleming DO PCP - General Internal Medicine 10/26/10 Ha Luque MD [address] [place], [place] [id number] Hematology/Oncology 12/17/24 Team Status: Active Member Role Status Dates Dr. Jaki Fleming DO Family Provider Active Dr. Jaki Fleming DO Primary Care Provider Active Team Status: Inactive Member Role Status Dates Dr. Jaki Fleming DO Primary Care Provider Active Start: February 05, 2025 End: February 05, 2025 Dr. Isabella Justice MD Attending Provider Active Start: February 05, 2025 End: February 05, 2025 V Belt Curer Relationship Specialty Start Date End Date Jaki Fleming DO PCP - General Internal Medicine 10/26/10 Ha Luque MD [address] [place] [address] Hematology/Oncology 12/17/24 V Belt Curer Relationship Specialty Start Date End Date Jaki Fleming DO PCP - General Internal Medicine 10/26/10 Ha Luque MD [address] [place] [address] Hematology/Oncology 12/17/24 Team Status: Active Member Role/Relationship Status Dates Dr. Jaki Fleming DO Family Provider Active Dr. Jaki Fleming DO Primary Care Provider Active Team Status: Inactive Member Role/Relationship Status Dates Dr. Jaki Fleming DO Primary Care Provider Active Start: February 05, 2025 End: February 05, 2025 Dr. Isabella Justice MD Attending Provider Active Start: February 05, 2025 End: February 05, 2025 Team Status: Inactive Member Role/Relationship Status Dates Dr. Jaki Fleming DO Primary Care Provider Active Start: May 01, 2025 End: May 01, 2025 Dr. Isabella Justice MD Attending Provider Active Start: May 01, 2025 End: May 01, 2025 Dr. Isabella Justice MD Referring Provider Active Start: May 01, 2025 End: May 01, 2025 V Belt Curer Relationship Specialty Start Date End Date Jaki Fleming DO PCP - General Internal Medicine 10/26/10 Ha Luque MD [address] [facility] [place] [address] Hematology/Oncology 12/17/24 Care Team (unrecognized sect ion and content) Personnel Name: JAKI FLEMING DO Address: Address: [address] [place] [address] [facility] [place], [place] [id number] [place] [address] Care Team Personnel Name: MAXIMUS CORONEL JR, MD Position: Physician - General Surgery Med Service: Grecia Anderson M.D. Member Role: Surgeon Address: Address: [address] [place] [address] [address] [place] [address]- [place] Name: JAKI FLEMING DO Position: Physician Med Service: Active Provider Member Role: Primary Care Physician Address: Address: [address] [place] [address]- [place] Name: MARIYA ALVAREZ MD Position: P4 Physician - Urologist Member Role: Urologist Address: Address: [address] [place] [address] [address] [place] [address]- [place] Care Team Related Persons Name: CHRISTIANO GALAVIZ Address: Home [address] [place], [place] [phone] [place] Care Team Personnel Name: MAXIMUS CORONEL JR, MD Position: P4 Physician - General Surgery Med Service: Grecia Anderson M.D. Member Role: Surgeon Address: Address: [address] [place] [address] [address] [place] [id number]- Name: JAKI FLEMING DO Position: Physician Med Service: Active Provider Member Role: Primary Care Physician Address: Address: [address] [place] [address]- [place] Name: MARIYA ALVAREZ MD Position: P4 Physician - Urologist Member Role: Urologist Address: Address: [address] [place] [address] [address] [place] [address]- Care Team Related Persons Name: CHRISTIANO GALAVIZ Address: Home [address] [place], [place] [phone] [place] Care Team Personnel Name: MAXIMUS CORONEL JR, MD Position: P4 Physician - General Surgery Address: Address: [address] [place] [address] [address] [place] [address]- [place] Name: JAKI FLEMING DO Position: Physician Member Role: Primary Care Physician Address: Address: [address] [place] [address]- Name: MARIYA ALVAREZ MD Position: P4 Physician - Urologist Address: Address: [address] [place] [address] [address] [place] [address]- [place] Care Team Related Persons Name: CHRISTIANO GALAVIZ Address: Home [address] [place], [place] [phone] [place] Care Team Personnel Name: MAXIMUS CORONEL JR, MD Position: P4 Physician - General Surgery Med Service: Grecia Anderson M.D. Member Role: Surgeon Address: Address: [address] [place] [address] [address] [place] [id number]- [place] Name: JAKI FLEMING DO Position: Physician Med Service: Active Provider Member Role: Primary Care Physician Address: Address: [address] [place] [address]- [place] Name: MARIYA ALVAREZ MD Position: P4 Physician - Urologist Member Role: Urologist Address: Address: [address] [place] [address] [address] [place] [phone]- Care Team Related Persons Name: CHRISTIANO GALAVIZ Address: Home [address] [place], [place] [phone] [place] Care Team Personnel Name: MAXIMUS CORONEL JR, MD Position: P4 Physician - General Surgery Member Role: Surgeon Address: Address: [address] [place] [address] [address] [place] [id number]- [place] Name: JAKI FLEMING DO Position: Physician Member Role: Primary Care Physician Address: Address: [address] [place] [address]- Name: MARIYA ALVAREZ MD Position: P4 Physician - Urologist Member Role: Urologist Address: Address: [address] [place] [address] [address] [place] [address]- Care Team Related Persons Name: CHRISTIANO GALAVIZ Address: Home [address] [place], [place] [phone] [place] Care Team Personnel Name: MAXIMUS CORONEL JR, MD Position: P4 Physician - General Surgery Member Role: Surgeon Address: Address: [address] [place] [address] [address] [place] [address]- [place] Name: JAKI FLEMING DO Position: Physician Member Role: Primary Care Physician Address: Address: [address] [place] [address]- [place] Name: MARIYA ALVAREZ MD Position: P4 Physician - Urologist Member Role: Urologist Address: Address: [address] [place] [address] [address] [facility] [address]- Care Team Related Persons Name: CHRISTIANO GALAVIZ Address: [address] [address] [facility] [place], [place] [phone] Reason for Visit (unrecogniz ed section and content) Reason Comments Imm/Inj Specialty Diagnoses / Procedures Referred By Contac t Referred To Contact Diagnoses Anemia, unspecified type Stage 3a chronic kidney disease (HCC) Procedures DARBEPOETIN ALVERTO, NON-ESRD Ha Luque MD [address] [place] [address] Phone: tel: Ha Luque MD [address] [place] [address] Phone: tel: Referral ID Status Reason Start Date Expiration Date V isits Requested Visits Authorized [id number] Authorized 01/04/2025 09/04/2025 0 99 Reason Comments Established Patient Reason Comments Derm Problem Sores on buttocks St arted 4-5 days ago Blisters that opened and was putting bandaids on them and they are still draining. Reason Comments left upper arm pain Patient states 6 day s ago he fell off his tractor and went to catch himself - he is now having left upper arm pain Reason Comments New Patient Reason Comments New Patient Evaluation Reason Comments Patient Update Referral from PCP Goals (unrecognized section and content) Goals may be documented in a n alternate section FOR RECORDS PERTAINING TO PATIENTS WHO ARE OR HAVE BEEN ENROLLED IN A CHEMICAL DEPENDENCY/SUBSTANCEABUSE PROGRAM, SOME INFORMATION MAY BE OMITTED. This clinical summary was aggregated from multiple sources. Caution should be exercised in using it in the provision of clinical care. This summary normalizes information from multiple sources, and as a consequence, information in this document may materially change the coding, format and clinical context of patient data. In addition, data may be omitted in some cases. CLINICAL DECISIONS SHOULD BE BASED ON THE PRIMARY CLINICAL RECORDS. [employer] provides no warranty or guarantee of the accuracy or completeness of information in this document.
[2025-08-27 19:02] LABS: Hematocrit 34.2 % (40-54); Hemoglobin 10.8 g/dL (13.0-16.5); Immature Granulocytes Count 0.010 X10^3/uL (0.0-0.0); Mean Corp Hgb Conc 31.6 g/dL (32-36); Mean Corpuscular Volume 90.5 fL (80-94); Mean Platelet Vol. 10.1 fl (6.2-12.0); NRBC Flagged by Analyzer 0 % (0-5); POSITIVE DIFFERENTIAL YES; Platelet Count 137 K/mm3 (150-450); RBC Distribution Width CV 16.0 % (11.6-14.6); RBC Distribution Width SD 53.2 fl (35.1-43.9); Red Blood Count 3.78 M/mm3 (4.6-6.2); White Blood Count 3.5 K/mm3 (4.4-11.0)
[2025-08-27 19:05] LABS: AST(SGOT) 26 U/L (<=37); Alanine Aminotransfer ALT/SGPT 17 U/L (<=46); Albumin, Serum 4.2 g/dL (3.4-4.8); Alkaline Phosphatase 49 U/L (40-129); Anion Gap 9 (7-18); BUN 41 mg/dL (4-19); BUN/Creat Ratio 28.2 RATIO (10-20); Calcium,Total 9.5 mg/dL (7.6-11.0); Carbon Dioxide 24.5 mmol/L (20.0-29.0); Chloride 104 mmol/L (96-106); Estimated Creatinine Clearance 40.63 ml/min (50-250); Globulin 2.9 g/dL (2.2-4.2); Glucose 239 mg/dL (70-99); Potassium 4.7 mmol/L (3.5-5.1)
[2025-08-27 19:36] LABS: Mucous, Urine 0 SEEN /hpf (<or=2+)
[2025-08-27 19:49] LABS: Color, Urine Yellow (Yellow); Glucose, Dipstick Normal (Normal); Ketone-Dipstick Negative (Negative); Leukocyte Esterase-Dipstick 100 /ul (Negative); Nitrite-Dipstick Negative (Negative); Occult Blood-Urine Negative /ul (Negative); Protein-Dipstick 30 mg/dl (Negative); Specific Gravity, Urine 1.020 (1.002-1.030); Urine Bilirubin Dipstick Negative (Negative)
[2025-08-27 20:02] LABS: Red Blood Cells-Urine 0-5 SEEN /hpf (0-5); Squamous Epithelial Cells - UA 0-5 SEEN /hpf (0-5)
[2025-08-27 22:00] VITALS: PULSE 58; RESP 14; O2SAT 97
[2025-08-27 22:39] VITALS: BP 167/8; PULSE 61; RESP 18; TEMP 36.2; O2SAT 96
== END 2025-08-27 22:40 | disposition home or self-care (01) ==
PROVIDERS: Emergency Provider Emergency Medicine; PCP Internal Medicine; Visit Provider Emergency Medicine
DX: M54.9 Dorsalgia, unspecified (principal); E11.22 Type 2 diabetes mellitus with diabetic chronic kidney disease; G89.29 Other chronic pain; I12.9 Hypertensive chronic kidney disease with stage 1 through stage 4 chronic kidney disease, or unspecified chronic kidney disease; N18.9 Chronic kidney disease, unspecified; I25.10 Atherosclerotic heart disease of native coronary artery without angina pectoris; Z79.01 Long term (current) use of anticoagulants; Z79.84 Long term (current) use of oral hypoglycemic drugs; Z79.899 Other long term (current) drug therapy
CPT/HCPCS: 96361; 96374; 96375; 99283; 80053; 81001; 82962; 85025; A4216; J2405

== ENCOUNTER 2025-08-30 12:41 | Inpatient (IN) | payer MEDICARE, SELFPAY ==
[2025-08-30 12:41] VITALS: BP 140/87; PULSE 58; RESP 16; TEMP 36.9; O2SAT 95
--- NOTE | 2025-08-30 15:07 | EDS_ITS ---
HPI History of Present Illness Chief Complaint: Other, Pain/Inj PFSH PFSH Medical History HTN (hypertension) CAD (coronary artery disease) Diabetes Home Medications ?Medication ?Instructions ?Recorded ?Last Taken ?Type acetaminophen 500 mg tablet 1,000 mg PO Q6H PRN pain 1 10/28/24 Unknown History (Tylenol Extra Strength) apixaban 5 mg tablet (Eliquis) 5 mg PO BID 08/27/25 Un known History cyclobenzaprine 5 mg tablet 5 mg PO TID PRN muscle spa sm #20 08/27/25 Unknown Rx tabs empagliflozin 25 mg tablet 25 mg PO DAILY 08/27/25 Unk nown History (Jardiance) Held on 08/27/25. Instructions: Order Changed glipizide 5 mg tablet 5 mg PO DAILY 08/27/25 Unkno wn History leflunomide 10 mg tablet 10 mg PO DAILY 08/27/25 Unkn own History lisinopril 40 mg tablet 40 mg PO DAILY 08/27/25 Unkn own History metoprolol succinate 25 mg 25 mg PO DAILY 08/27/25 Unk nown History tablet,extended release 24 hr ondansetron 4 mg disintegrating 4 mg PO Q6H PRN nausea and 08/27/25 Unknown Rx tablet vomiting #20 tabs oxycodone-acetaminophen 5 mg-325 1 tab PO Q6H PRN pain 3 days #12 08/27/25 Unknown Rx mg tablet (Endocet) tabs prednisone 10 mg tablet 10 mg PO DAILY 08/27/25 Unkn own History sitagliptin phosphate 50 mg tablet 50 mg PO DAILY 08/06 11/27 Unknown History (Januvia) tizanidine 4 mg tablet 4 mg PO TID 08/27/25 Unknown History Allergy/AdvReac Type Severity Reaction Status Date / Time No Known Allergies Allergy Verified 08/30/25 12:42 Surgical History H/O aortic valve replacement with porcine valve Social History Smoking Status: Never smoker EXAM Physical Exam Const Vital Signs: 08/30/25 12:41 08/30/25 16:46 Temperature 98.4 F Temperature Source Oral Pulse Rate 58 L 79 Respiratory Rate 16 16 Blood Pressure 140/87 H 167/84 H Blood Pressure Mean 104 111 Pulse Ox 95 97 Oxygen Delivery Method Room Air [facility] Narrative Medical decision making narrative: HISTORY OF PRESENT ILLNESS: Chief complaint: Leg pain 89-year-old male history of hypertension, CAD, diabetes, status post aortic valve replacement on Eliquis, chronic back pain presents with left hip/leg pain. Notes this began 2 days ago. States he was seen 2 days ago for similar symptoms. Denies falls or trauma. Patient denies any saddle anesthesia, urinary retention, bowel or bladder incontinence, lower extremity weakness, fever or IV drug use, no recent spinal manipulation or surgery, no recent urinary catheterization. Denies unilateral leg swelling or history of blood clots. Denies trouble urinating. Denies change in bowel or bladder habit. They note the patient was walking dependently until symptoms started and now he is struggling to get out of the walker. REVIEW OF SYSTEMS: Pertinent positives: Left leg pain Pertinent negatives: As per [facility] PHYSICAL EXAM: Nursing triage notes reviewed, Vital signs reviewed Constitutional: please see [facility] HENT: MMM Eyes: Pupils equal round and reactive to light, Extraocular muscles intact Neck: No stridor, no JVD, full neck ROM Lungs: Clear to auscultation, No wheezing or rales. No increased work of breathing, no conversational dyspnea, no accessory muscle use, no nasal flaring. No respiratory distress noted Heart: Regular rate and rhythm, No murmurs, No rubs and No gallops, 2+ distal pulses (radial, femoral, posterior tibial) in all extremities Abdomen: Soft, there is no tenderness, rigidity, rebound or guarding, no obvious peritoneal signs, no palpable pulsatile abdominal masses, no auscultated abdominal bruit : No CVAT Back: No midline step-offs deformities lumbar spine Extremities: No edema, warm and well-perfused no discoloration, no coolness to touch, no obvious deformities Neuro: Intact sensation L1-S1 dermatomal distributions. Intact 5/5 strength in hip flexion (T12-L3). Knee extension (L2-L4). Ankle dorsiflexion (L4-L5). Ankle plantar flexion (S1). Great toe extension (L5). 2+ patellar and Achilles DTRs. Skin: No rash or lesions noted MEDICAL DECISION MAKING: Chief Complaint: please see [facility] External records reviewed: Reviewed reported x-ray finding from 2 days ago which showed no compression fractures but noted L4-L5 anterior listhesis. Labs reviewed from 08/27/2025 which showed no leukocytosis, mild anemia, thrombocytopenia was noted. BMP with no significant electrolyte abnormalities, patient was discharged with Flexeril, Percocet and Zofran Factors affecting care: as per [facility] Social determinants of health: none History obtained from others: none Consults: Hospitalist Dr. Escoto [facility] Narrative: Patient was evaluated Approximately 2-1/2 hours after initial arrival to the ED in the [facility] secondary to poor departmental conditions including high-volume high acuity. The patient was initially hemodynamically stable, afebrile and nontoxic-appe aring. Exam without obvious deformity. Patient had slight weakness in left lower extremity however he was able to perform all his manual muscle testing. He is able to rise from a seated position. I considered the following differential diagnosis: Bony injury, DVT, lumbar spine injury I obtained labs and images to further determine if the patient was suffering from a life-threatening etiology. Initially treated the patient with 4 mg IM morphine and 15 mg IM Toradol ALL IMAGES (IF OBTAINED) HAVE BEEN PERSONALLY REVIEWED AND INTERPRETED BY MYSELF. X-ray of the patient's pelvis and hip were reviewed. Myself and showed no evidence of obvious bony abnormality such as fracture dislocation. Did show degenerative changes CT scan lumbar spine showed no acute fracture dislocation showed chronic degenerative changes, spinal stenosis. DVT ultrasound read as negative for acute DVT Added basic labs including BMP and CBC On reassessment patient noted ongoing pain despite IM narcotics and anti- inflammatories. Wrote 0.5 mg Dilaudid and contact hospitalist for admission for intractable back pain. The patient and/or family, caregivers express understanding. The patient and/or family, caregivers agrees with the plan. Shared decision making: I will have a discussion with the patient and or visitors regarding risk/benefits of further testing or admission. They will be made aware of of the risk/benefits inherent in this decision they will be given the opportunity to voice understanding. Total critical care time today provided was at least 0 minutes. This excludes separately billable procedures. Critical care time (if documented) is secondary to the patient having high probability of clinically significant/life threatening deterioration in the patient's condition which required my urgent intervention. Impression: 1. Acute left leg pain 2. Intractable back pain 3. Lumbar radiculopathy Dispo: Admit to the hospital This note was generated with [facility] dictation software. It may contain incorrect words, spelling, and punctuation that were not noted in review of the chart prior to signing. Radiography Diagnostic Testing: Clinical Impression(s) from Imaging Studies Lumbar Spine CT 08/30/25 15:29 IMPRESSION: Multilevel degenerate changes predominantly for severe canal stenosis and severe bilateral foramina stenosis at L2-L3 and L3-L4. Severe canal stenosis at L4-L5. 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 Mild degenerative osteoarthritic changes are seen involving the pubic symphysis. Spondylosis of the lower lumbar spine is noted. Reading Location: [facility] Discharge Plan Triage Chief Complaint: Other, Pain/Inj ED Provider: Eliot Reyes Dx/Rx/DC Orders Prescriptions: No Action prednisone 10 mg tablet 10 mg PO DAILY tizanidine 4 mg tablet 4 mg PO TID leflunomide 10 mg tablet 10 mg PO DAILY metoprolol succinate 25 mg tablet extended release 24 hr 25 mg PO DAILY lisinopril 40 mg tablet 40 mg PO DAILY glipizide 5 mg tablet 5 mg PO DAILY Januvia 50 mg tablet 50 mg PO DAILY Eliquis 5 mg tablet 5 mg PO BID Jardiance 25 mg tablet 25 mg PO DAILY acetaminophen [Tylenol Extra Strength] 500 mg tablet 1,000 mg PO Q6H PRN (Reason: pain) ondansetron 4 mg tablet,disintegrating 4 mg PO Q6H PRN (Reason: nausea and vomiting) Qty: 20 0RF oxycodone-acetaminophen [Endocet] 5-325 mg tablet 1 tab PO Q6H PRN (Reason: pain) 3 Days Qty: 12 0RF cyclobenzaprine 5 mg tablet 5 mg PO TID PRN (Reason: muscle spasm) Qty: 20 0RF Primary Care Provider: Jaki Lin Referrals: Jaki Lin DO [Primary Care Provider, Internal Medicine] Print Language: Lebanese
--- NOTE | 2025-08-30 15:29 | VDLE_ITS ---
Reason For Study Reason For Study: Left leg pain RIGHT LEFT CFV is compressible, spontaneous, phasic, competent GSV is normal. and demonstrates normal augmentation. CFV is compressible, spontaneous, phasic, competent, Procedure and demonstrates normal augmentation. This is a venous duplex using B-mode, color flow and FV is compressible, spontaneous, phasic, competent spectral Doppler. and demonstrates normal augmentation. Exam performed portable in ED. POP V is compressible, spontaneous, phasic, competent A preliminary report was called and/or faxed to [facility] and demonstrates normal augmentation. RN. T/P Trunk is compressible. PTV is compressible. LT PerV is compressible. VL/Venous Duplex US, Unilateral Interpretation Summary Deep veins of the left lower extremity are patent and compressible segmentally. There is no evidence of left lower extremity deep vein thrombosis. Valvular competence appears intact within the p roximal deep venous system on the left . The left great saphenous vein appears patent and compressible segmentally. The right common femoral vein is patent and compressible . Ordering Physician: Eliot Reyes Referring Physician: Jaki Lin Performed By: Josselin Boyd RVT
--- NOTE | 2025-08-30 15:29 | CT_ITS ---
PROCEDURE: SPINE LUMBAR WITHOUT CONTRAST 08/30/2025 REASON FOR EXAM: BACK PAIN TECHNIQUE: Procedure Code: CTSPL Modality: CT Procedure: SPINE LUMBAR WITHOUT CONTRAST Coronal and Sagittal reconstruction series were provided. One or more dose reduction techniques were used (e.g., Automated exposure control, adjustment of the mA and/or kV according to patient size, use of iterative reconstruction technique COMPARISON: None. RADIATION DOSE SUMMARY: CTDlvol: 26.25 mGy DLP: 755.99 mGycm FINDINGS: Vertebrae: No acute bony abnormalities. Alignment: Retrolisthesis L1 on L2, L2 on L3 and L3-L4 by 2 mm each. T12-L1: Disc space pattern. Small disc bulge. Mild bilateral foramina stenosis. Mild canal stenosis. L1-L2: Disc space narrowing and vacuum phenomena. Facet joints arthropathy. Moderate bilateral foramina stenosis. Moderate canal stenosis. L2-L3: Disc desiccation. Vacuum phenomena. Facet joints arthropathy. Severe bilateral foramina stenosis. Severe canal stenosis. L3-L4: Disc desiccation. Vacuum phenomena. Facet joints arthropathy. Severe bilateral foramina stenosis. Severe canal stenosis. L4-L5: Uncovered disc bulge. Facet joints arthropathy. Moderate bilateral foramina stenosis. Severe canal stenosis. L5-S1: Uncovered disc bulge. Facet joints arthropathy. Moderate bilateral foramina stenosis. Mild canal stenosis. Sacrum: No acute bony abnormalities. CT/Spine Lumbar without Contrast IMPRESSION: Multilevel degenerate changes predominantly for severe canal stenosis and sever e bilateral foramina stenosis at L2-L3 and L3-L4. Severe canal stenosis at L4-L5. Reading Location: [id number]
--- OUTSIDE RECORDS SUMMARY | 2025-08-30 15:29 | XMS RPT_ITS | CCD ---
Author Organization [facility] CliniSymi Care Team Providers Care Food Technologist Name Role Phone Allen Phelps Unavailable Unavailable REFERRING, LISA WO ID Unavailable Unavailable ISABELLA JUSTICE Unavailable Unavailable JAKI FLEMING Unavailable Unavailable Jaki Fleming Primary Care Provider LONNIE KAUR, DR POLLACK Primary Care Physician Yang Rounding NurseRamon Unavailable Jaki Mckenna DO Primary Care Provider LONNIE KAUR, DR POLLACK Primary Care Unavailable LASHAE MOULTON MD Attending Unavailable [facility] Attending Unava ilable LONNIE KAUR, DR [...] DO, DR POLLACK Primary Care Unavailable FISH GOLF COUR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-FELT CEMENTER, CHARMAINE Attending Unavailab le LONNIE DO, DR POLLACK Primary Care Unavailable LONNIE DO, DR POLLACK Attending Unavailable LONNIE DO, DR POLLACK Primary Care Unavailable LONNIE DO, DR POLLACK Attending Unavailable LONNIE DO, DR POLLACK Primary Care Unavailable [facility] GOLF COUR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-FELT CEMENTER, TIFFANY Attending Unavaila ble LONNIE DO, DR POLLACK Primary Care Unavailable RESHMA GUADALUPE, DR MASNO Attending Unavailabl e LNONIE DO, DR POLLACK Primary Care Unavailable LONNIE DO, DR POLLACK Attending Unavailable LONNIE DO, DR POLLACK Primary Care Unavailable RESHMA GUADALUPE, DR MASON Attending Unavailabl e LONNIE DO, DR POLLACK Primary Care Unavailable LONNIE DO, DR POLLACK Attending Unavailable LONNIE DO, DR POLLACK Primary Care Unavailable [facility] GOLF COUR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-FELT CEMENTER, CHARMAINE Attending Unavailab le LONNIE DO, DR POLLACK Primary Care Unavailable [facility] GOLF COUR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-FELT CEMENTER, CHARMAINE Attending Unavailab le LONNIE DO, DR POLLACK Primary Care Unavailable RESHMA GUADALUPE, DR MASON Attending Unavailabl e LONNIE DO, DR POLLACK Primary Care Unavailable FROMMEL , RUBY Attending Unavailable LONNIE DO, DR POLLACK Primary Care Unavailable DAVION GUADALUPE, DR TAYLOR Chamorro Consulting Dillon SMITH GOLF COUR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-FELT CEMENTER, FRANNIE Chapman Attending U navailable LONNIE DO, DR POLLACK Primary Care Unavailable [facility] GOLF COUR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-FELT CEMENTER, KYAW Attending Unava ilable LONNIE DO, DR POLLACK Primary Care Unavailable [facility] GOLF COUR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-FELT CEMENTER, CHARMAINE Attending Unavailab le LONNIE DO, DR [...] rosuvastatin; Translations: [ROSUVASTATIN] Drug Allergy 07-24-2020 Myalgia [facility] Medications Current Medications Medication Drug Class(es) Dates [...] # 60 tab(s), 0 Refill(s), Pharmacy: [facility], 178, cm, 10/18/23 13:12:00 [...] # 45 gram(s), 1 Refill(s), Pharmacy: [facility], Cream, 180.3, cm, 02/20/25 [...] # 30 tab(s), 0 Refill(s), Pharmacy: [facility], 180.3, cm, 03/28/23 13:07:00 EDT, Height, kg, 03/28/23 13:07:00 EDT, Dosing Weight Start Date: 04/19/23 Status: Ordered cefdinir 300 mg oral capsule (1 source) Cephalosporin Antibacterial Start: 09-23-2023 End: 09-28-2023 cefdinir 300 mg oral capsule Dose : 300 mg = 1 cap(s), Oral, q12h, X 5 day(s), # 10 cap(s), 0 Refill(s), 09/28/23 11:11:00 AM EST, Pharmacy: [facility], 180.3, cm, 09/20/23 23:28:00 [...] Refill(s), 11/06/23 3:48:00 PM EST, Pharmacy: [facility], Ureteral stone, 177.8, cm, 11/03/23 12:12:00 EST, Height, 91.2, kg, 11/03/23 12:12:00 EST, Dosing Weight Start Date: 11/03/23 Stop Date: 11/06/23 Status: Ordered CPAP (10 sources) CPAP daily at [facility]. Active CPAP Active CPAP diphenhydrAMINE hydrochloride 25 [...] # 30 tab(s), 1 Refill(s), Pharmacy: [facility], 180.3, cm, 02/21/24 9:20:00 [...] # 100 tab(s), 3 Refill(s), Pharmacy: [facility], 180.3, cm, 06/20/25 9:42:00 [...] # 90 tab(s), 3 Refill(s), Pharmacy: [facility], 181.3, cm, 12/11/24 10:06:00 [...] # 10 tab(s), 0 Refill(s), Pharmacy: [facility], 180.3, cm, 04/29/23 12:38:00 EDT, Height, 95.1, kg, 04/29/23 10:01:00 EDT, Dosing Weight Start Date: 05/02/23 Stop Date: 05/07/23 Status: Ordered tamsulosin hydrochloride 0.4 mg oral capsule (20 sources) alpha-Adrenergic Wyatt Start: 09-23-2023 tamsulosin 0.4 mg oral capsule Dose : 0.4 mg = 1 cap(s), Oral, qDayPC, # 30 cap(s), 0 Refill(s), Pharmacy: [facility], 180.3, cm, 09/20/23 23:28:00 [...] # 2 tab(s), 0 Refill(s), Pharmacy: [facility], 177.8, cm, 11/14/23 10:20:00 [...] 12-04-2021 triamcinolone 0.025% topical cream Apply 1 joyti, Topical, BID, # 15 gram(s), 0 Refill(s), [...] current use of drug therapy; Translations: [Other oysterman (current) drug therapy] Onset: 5 Episodic Other aftercare (1 source) Long-term current use of anticoagulant; Translations: [group home (current) use of anticoagulants] Onset: 5 Episodic [...] 11:50:47 AM Ordering Provider: ISHAAN HEARN Normal [facility] CBC W Auto Differential pane l (Bld)on 06-27-2025 Basophils (Bld) [#/Vol] 10*3/uL Normal <0.11 [facility] Comment on above: Order Comment: Speci men Type: BLOOD SPECIMENOrdering Facility: [facility] Address: [address] [place] [address] [place] [address] Performed By: #### 5 7021-8 ####[facility] MILLWNCLIA [id number] [place] [address] [place] Basophils/100 WBC (Bld) 0.4 % Normal [facility] Comment on above: Order Comment: Speci men Type: BLOOD SPECIMENOrdering Facility: [facility] Address: [address] [place] [address] Performed By: #### 5 7021-8 ####[facility] CENTERLIA [id number] [place] [address] [place] Differential cell count method Nom (Bld) Auto Normal [facility] Comment on above: Order Comment: Speci men Type: BLOOD SPECIMENOrdering Facility: [facility] Address: [address] [place] [address] Performed By: #### 5 7021-8 ####[facility]OSPITALA [id number] [place] [address] [place] Eosinophils (Bld) [#/Vol] 0.14 10*3/uL Normal <0.46 [facility] Comment on above: Order Comment: Speci men Type: BLOOD SPECIMENOrdering Facility: [facility] Address: [address] [place] [address] Performed By: #### 5 7021-8 ####[facility]OS[facility]ITALA [id number] [place] [address] [place] Eosinophils/100 WBC (Bld) 2.8 % Normal [facility] Comment on above: Order Comment: Speci men Type: BLOOD SPECIMENOrdering Facility: [facility] Address: [address] [place] [address] Performed By: #### 5 7021-8 ####[facility] HOSPITALNCLIA [id number] [place] [address] [place] Erythrocyte distribution width (RBC) [Ratio] 15.8 % High 11.5-15.0 [facility] Comment on above: Order Comment: Speci men Type: BLOOD SPECIMENOrdering Facility: [facility] Address: [address] [place] [address] Performed By: #### 5 7021-8 ####[facility]ITALNCL[facility] [id number] [place] [address] [place] Hematocrit (Bld) [Volume fraction] 31.8 % Low 39.0-51.0 [facility] Comment on above: Order Comment: Speci men Type: BLOOD SPECIMENOrdering Facility: [facility] Address: [address] [place] [address] Performed By: #### 5 7021-8 ####[facility] [id number] [place] [address] [place] Hemoglobin (Bld) [Mass/Vol] 10.1 g/dL Low 13.0-17.0 [facility] Comment on above: Order Comment: Speci men Type: BLOOD SPECIMENOrdering Facility: [facility] Address: [address] [place] [address] Performed By: #### 5 7021-8 ####[facility] [id number] [place] [address] [place] Immature granulocytes (Bld) [#/Vol] 10*3/uL Normal <0.10 [facility] Comment on above: Order Comment: Speci men Type: BLOOD SPECIMENOrdering Facility: [facility] Address: [address] [place] [address] Performed By: #### 5 7021-8 ####[facility] [id number] [place] [address] [place] Immature granulocytes/100 WBC (Bld) 0.2 % Normal [facility] Comment on above: Order Comment: Speci men Type: BLOOD SPECIMENOrdering Facility: [facility] Address: [address] [place] [address] Performed By: #### 5 7021-8 ####[facility] AMBERCHIPA [id number] [place] [address] [place] Lymphocytes (Bld) [#/Vol] 0.39 10*3/uL Low 1.00-4.00 [facility] Comment on above: Order Comment: Speci men Type: BLOOD SPECIMENOrdering Facility: [facility] Address: [address] [place] [address] Performed By: #### 5 7021-8 ####[facility]ITALEDGARLDS [facility] [id number] [place] [address] [place] Lymphocytes/100 WBC (Bld) 7.7 % Normal [facility] Comment on above: Order Comment: Speci men Type: BLOOD SPECIMENOrdering Facility: [facility] Address: [address] [place] [address] Performed By: #### 5 7021-8 ####[facility] HOSPITALNCJOHN [id number] [place] [address] [place] MCH (RBC) [Entitic mass] 28.5 pg Normal 26.0-34.0 [facility] Comment on above: Order Comment: Speci men Type: BLOOD SPECIMENOrdering Facility: [facility] Address: [address] [place] [address] Performed By: #### 5 7021-8 ####[facility] HOSPITALNCLIA [id number] [place] [address] [place] MCHC (RBC) [Mass/Vol] 31.8 g/dL Normal 30.5-36.0 [facility] Comment on above: Order Comment: Speci men Type: BLOOD SPECIMENOrdering Facility: [facility] Address: [address] [place] [address] Performed By: #### 5 7021-8 ####[facility] AMBERWNCLIA [id number] [place] [address] [place] MCV (RBC) [Entitic vol] 89.8 fL Normal 80.0-100.0 [facility] Comment on above: Order Comment: Speci men Type: BLOOD SPECIMENOrdering Facility: [facility] Address: [address] [place] [address] Performed By: #### 5 7021-8 ####[facility]ITALA [id number] [place] [address] [place] Monocytes (Bld) [#/Vol] 0.63 10*3/uL Normal <0.87 [facility] Comment on above: Order Comment: Speci men Type: BLOOD SPECIMENOrdering Facility: [facility] Address: [address] [place] [address] Performed By: #### 5 7021-8 ####[facility] [id number] [place] [address] [place] Monocytes/100 WBC (Bld) 12.5 % Normal [facility] Comment on above: Order Comment: Speci men Type: BLOOD SPECIMENOrdering Facility: [facility] Address: [address] [place] [address] Performed By: #### 5 7021-8 ####[facility]OSPITALA [id number] [place] [address] [place] Neutrophils (Bld) [#/Vol] 3.85 10*3/uL Normal 1.45-7.50 [facility] Comment on above: Order Comment: Speci men Type: BLOOD SPECIMENOrdering Facility: [facility] Address: [address] [place] [address] Performed By: #### 5 7021-8 ####[facility] CENTERLIA [id number] [place] [address] [place] Neutrophils/100 WBC (Bld) 76.4 % Normal [facility] Comment on above: Order Comment: Speci men Type: BLOOD SPECIMENOrdering Facility: [facility] Address: [address] [place] [address] Performed By: #### 5 7021-8 ####[facility] [id number] [place] [address] [place] Nucleated RBC (Bld) [#/Vol] 10*3/uL Normal <0.01 [facility] Comment on above: Order Comment: Speci men Type: BLOOD SPECIMENOrdering Facility: [facility] Address: [address] [place] [address] Performed By: #### 5 7021-8 ####[facility] [id number] [place] [address] [place] Nucleated RBC/100 WBC (Bld) [Ratio] 0.0 /100 WBC Normal [facility] Comment on above: Order Comment: Speci men Type: BLOOD SPECIMENOrdering Facility: [facility] Address: [address] [place] [address] Performed By: #### 5 7021-8 ####[facility] [id number] [place] [address] [place] Platelet mean volume (Bld) [Entitic vol] 9.6 fL Normal 9.0-12.7 [facility] Comment on above: Order Comment: Speci men Type: BLOOD SPECIMENOrdering Facility: [facility] Address: [address] [place] [address] Performed By: #### 5 7021-8 ####[facility] [id number] [place] [address] [place] Platelets (Bld) [#/Vol] 131 10*3/uL Low 150-400 [facility] Comment on above: Order Comment: Speci men Type: BLOOD SPECIMENOrdering Facility: [facility] Address: [address] [place] [address] Performed By: #### 5 7021-8 ####[facility] BRADY CLARKGATESNCLIA [id number] [place] [address] [place] RBC (Bld) [#/Vol] 3.54 10*6/uL Low 4.20-6.00 [facility] Comment on above: Order Comment: Speci men Type: BLOOD SPECIMENOrdering Facility: [facility] Address: [address] [place] [address] Performed By: #### 5 7021-8 ####[facility] AMBERGATESNCLIA [id number] [place] [address] [place] WBC (Bld) [#/Vol] 5.04 10*3/uL Normal 3.70-11.00 [facility] Comment on above: Order Comment: Speci men Type: BLOOD SPECIMENOrdering Facility: [facility] Address: [address] [place] [address] Performed By: #### 5 7021-8 ####[facility] HOSPITALIBETHA [id number] [place] [address] [place] CNOVSPon 06-27-2025 OVS Visit (SP) Office (CHARISMA) -------- JAYLEN GALAVIZ ([id number]) 1935 M Date Time Provider Department 06/27/25 [...] pancytopenia. Had RT to prostate 2022 at [facility]. 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 Normal [facility] CBC W Auto Differential pane l (Bld)on 05-16-2025 Basophils (Bld) [#/Vol] 0.03 10*3/uL Normal <0.11 [facility] Comment on above: Order Comment: Speci men Type: BLOOD SPECIMENOrdering Facility: [facility] Address: [address] [place] [address] Performed By: #### 5 7021-8 ####[facility]OSPITALA [id number] [place] [address] [place] Basophils/100 WBC (Bld) 0.8 % Normal [facility] Comment on above: Order Comment: Speci men Type: BLOOD SPECIMENOrdering Facility: [facility] Address: [address] [place] [address] Performed By: #### 5 7021-8 ####[facility] HOSPITALA [id number] [place] [address] [place] Differential cell count method Nom (Bld) Auto Normal [facility] Comment on above: Order Comment: Speci men Type: BLOOD SPECIMENOrdering Facility: [facility] Address: [address] [place] [address] Performed By: #### 5 7021-8 ####[facility]OSPITALA [id number] [place] [address] [place] Eosinophils (Bld) [#/Vol] 0.13 10*3/uL Normal <0.46 [facility] Comment on above: Order Comment: Speci men Type: BLOOD SPECIMENOrdering Facility: [facility] Address: [address] [place] [address] Performed By: #### 5 7021-8 ####[facility] CENTERLIA [id number] [place] [address] [place] Eosinophils/100 WBC (Bld) 3.6 % Normal [facility] Comment on above: Order Comment: Speci men Type: BLOOD SPECIMENOrdering Facility: [facility] Address: [address] [place] [address] Performed By: #### 5 7021-8 ####[facility] [id number] [place] [address] [place] Erythrocyte distribution width (RBC) [Ratio] 16.6 % High 11.5-15.0 [facility] Comment on above: Order Comment: Speci men Type: BLOOD SPECIMENOrdering Facility: [facility] Address: [address] [place] [address] Performed By: #### 5 7021-8 ####[facility]ITALNCL[facility] [id number] [place] [address] [place] Hematocrit (Bld) [Volume fraction] 32.4 % Low 39.0-51.0 [facility] Comment on above: Order Comment: Speci men Type: BLOOD SPECIMENOrdering Facility: [facility] Address: [address] [place] [address] Performed By: #### 5 7021-8 ####[facility] [id number] [place] [address] [place] Hemoglobin (Bld) [Mass/Vol] 10.2 g/dL Low 13.0-17.0 [facility] Comment on above: Order Comment: Speci men Type: BLOOD SPECIMENOrdering Facility: [facility] Address: [address] [place] [address] Performed By: #### 5 7021-8 ####[facility] [id number] [place] [address] [place] Immature granulocytes (Bld) [#/Vol] 0.03 10*3/uL Normal <0.10 [facility] Comment on above: Order Comment: Speci men Type: BLOOD SPECIMENOrdering Facility: [facility] Address: [address] [place] [address] Performed By: #### 5 7021-8 ####[facility] AMBERROSIELIA [id number] [place] [address] [place] [facility] Immature granulocytes/100 WBC (Bld) 0.8 % Normal [facility] Comment on above: Order Comment: Speci men Type: BLOOD SPECIMENOrdering Facility: [facility] Address: [address] [place] [address] Performed By: #### 5 7021-8 ####[facility]OSPITALNCLIA [id number] [place] [address] [place] Lymphocytes (Bld) [#/Vol] 0.38 10*3/uL Low 1.00-4.00 [facility] Comment on above: Order Comment: Speci men Type: BLOOD SPECIMENOrdering Facility: [facility] Address: [address] [place] [address] Performed By: #### 5 7021-8 ####[facility] HOS[facility]ITALNCLIA [id number] [address] [place] Lymphocytes/100 WBC (Bld) 10.6 % Normal [facility] Comment on above: Order Comment: Speci men Type: BLOOD SPECIMENOrdering Facility: [facility] Address: [address] [place] [address] Performed By: #### 5 7021-8 ####[facility] CENTERLIA [id number] [place] [address] [place] MCH (RBC) [Entitic mass] 28.5 pg Normal 26.0-34.0 [facility] Comment on above: Order Comment: Speci men Type: BLOOD SPECIMENOrdering Facility: [facility] Address: [address] [place] [address] Performed By: #### 5 7021-8 ####[facility] CENTERLIA [id number] [place] [address] [place] MCHC (RBC) [Mass/Vol] 31.5 g/dL Normal 30.5-36.0 [facility] Comment on above: Order Comment: Speci men Type: BLOOD SPECIMENOrdering Facility: [facility] Address: [address] [place] [address] Performed By: #### 5 7021-8 ####[facility] [id number] [place] [address] [place] MCV (RBC) [Entitic vol] 90.5 fL Normal 80.0-100.0 [facility] Comment on above: Order Comment: Speci men Type: BLOOD SPECIMENOrdering Facility: [facility] Address: [address] [place] [address] Performed By: #### 5 7021-8 ####[facility] [id number] [place] [address] [place] Monocytes (Bld) [#/Vol] 0.66 10*3/uL Normal <0.87 [facility] Comment on above: Order Comment: Speci men Type: BLOOD SPECIMENOrdering Facility: [facility] Address: [address] [place] [address] Performed By: #### 5 7021-8 ####[facility] [id number] [place] [address] [place] Monocytes/100 WBC (Bld) 18.3 % Normal [facility] Comment on above: Order Comment: Speci men Type: BLOOD SPECIMENOrdering Facility: [facility] Address: [address] [place] [address] Performed By: #### 5 7021-8 ####[facility] HOSPITALNCLIA [id number] [place] [address] [place] Neutrophils (Bld) [#/Vol] 2.37 10*3/uL Normal 1.45-7.50 [facility] Comment on above: Order Comment: Speci men Type: BLOOD SPECIMENOrdering Facility: [facility] Address: [address] [place] [address] Performed By: #### 5 7021-8 ####[facility] [id number] [place] [address] [place] Neutrophils/100 WBC (Bld) 65.9 % Normal [facility] Comment on above: Order Comment: Speci men Type: BLOOD SPECIMENOrdering Facility: [facility] Address: [address] [place] [address] Performed By: #### 5 7021-8 ####[facility] [id number] [place] [address] [place] Nucleated RBC (Bld) [#/Vol] 10*3/uL Normal <0.01 [facility] Comment on above: Order Comment: Speci men Type: BLOOD SPECIMENOrdering Facility: [facility] Address: [address] [place] [address] Performed By: #### 5 7021-8 ####[facility] [id number] [place] [address] [place] Nucleated RBC/100 WBC (Bld) [Ratio] 0.0 /100 WBC Normal [facility] Comment on above: Order Comment: Speci men Type: BLOOD SPECIMENOrdering Facility: [facility] Address: [address] [place] [address] Performed By: #### 5 7021-8 ####[facility] [id number] [place] [address] [place] Platelet mean volume (Bld) [Entitic vol] 9.4 fL Normal 9.0-12.7 [facility] Comment on above: Order Comment: Speci men Type: BLOOD SPECIMENOrdering Facility: [facility] Address: [address] [place] [address] Performed By: #### 5 7021-8 ####[facility] SOCRATESNCLIA [id number] [place] [address] [place] Platelets (Bld) [#/Vol] 152 10*3/uL Normal 150-400 [facility] Comment on above: Order Comment: Speci men Type: BLOOD SPECIMENOrdering Facility: [facility] Address: [address] [place] [address] Performed By: #### 5 7021-8 ####[facility] AMBERLaurenNCLIA [id number] [place] [address] [place] RBC (Bld) [#/Vol] 3.58 10*6/uL Low 4.20-6.00 [facility] Comment on above: Order Comment: Speci men Type: BLOOD SPECIMENOrdering Facility: [facility] Address: [address] [place] [address] Performed By: #### 5 7021-8 ####[facility]ITALNCLIA [id number] [place] [address] [place] WBC (Bld) [#/Vol] 3.60 10*3/uL Low 3.70-11.00 [facility] Comment on above: Order Comment: Speci men Type: BLOOD SPECIMENOrdering Facility: [facility] Address: [address] [place] [address] Performed By: #### 5 7021-8 ####[facility]ITALNCLIA [id number] [address] CNOVSPon 05-16-2025 CNOVSP Visit (SP) Office (HEMAWS) -------- JAYLEN GALAVIZ ([id number]) 1935 M Date Time Provider Department 05/16/25 [...] pancytopenia. Had RT to prostate 2022 at [facility]. 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 Centrilobular emphysema (HCC) CKD (chronic kidney [...] bedtime. pantoprazol (more content not included)... Normal [facility] Comprehensive metabolic 2000 panelon 05-16-2025 Albumin [Mass/Vol] 4.1 g/dL Normal 3.9-4.9 [facility] Comment on above: Order Comment: Speci men Type: BLOOD SPECIMENOrdering Facility: [facility] Address: [address] [place] [address] Performed By: #### 2 4323-8 ####[facility] [id number] [place] [address] [place] ALP [Catalytic activity/Vol] 66 U/L Normal 38-113 [facility] Comment on above: Order Comment: Speci men Type: BLOOD SPECIMENOrdering Facility: [facility] Address: [address] [place] [address] Performed By: #### 2 4323-8 ####[facility] [id number] [place] [address] [place] ALT [Catalytic activity/Vol] 16 U/L Normal 10-54 [facility] Comment on above: Order Comment: Speci men Type: BLOOD SPECIMENOrdering Facility: [facility] Address: [address] [place] [address] Performed By: #### 2 4323-8 ####[facility] [id number] [place] [address] [place] Anion gap [Moles/Vol] 8 mmol/L Normal 8-15 [facility] Comment on above: Order Comment: Speci men Type: BLOOD SPECIMENOrdering Facility: [facility] Address: [address] [place] [address] Performed By: #### 2 4323-8 ####[facility]ITALNCL[facility] [id number] [place] [address] [place] AST [Catalytic activity/Vol] 25 U/L Normal 14-40 [facility] Comment on above: Order Comment: Speci men Type: BLOOD SPECIMENOrdering Facility: [facility] Address: [address] [place] [address] Performed By: #### 2 4323-8 ####[facility] HOSPITALKerri [id number] [place] [address] [place] Bilirubin [Mass/Vol] 0.2 mg/dL Normal 0.2-1.3 [facility] Comment on above: Order Comment: Speci men Type: BLOOD SPECIMENOrdering Facility: [facility] Address: [address] [place] [address] Performed By: #### 2 4323-8 ####[facility] HOSPITALNCA [id number] [place] [address] [place] Calcium [Mass/Vol] 10.2 mg/dL Normal 8.5-10.2 [facility] Comment on above: Order Comment: Speci men Type: BLOOD SPECIMENOrdering Facility: [facility] Address: [address] [place] [address] Performed By: #### 2 4323-8 ####[facility]OS[facility]ITALNCLIA [id number] [place] [address] [place] Chloride [Moles/Vol] 103 mmol/L Normal 98-107 [facility] Comment on above: Order Comment: Speci men Type: BLOOD SPECIMENOrdering Facility: [facility] Address: [address] [place] [address] Performed By: #### 2 4323-8 ####[facility] INSTITUTEWNCLIA [id number] [place] [address] [place] CO2 [Moles/Vol] 25 mmol/L Normal 22-30 [facility] Comment on above: Order Comment: Speci men Type: BLOOD SPECIMENOrdering Facility: [facility] Address: [address] [place] [address] Performed By: #### 2 4323-8 ####[facility] HOS[facility]ITALNCLIA [id number] [place] [address] [place] Creatinine [Mass/Vol] 1.40 mg/dL High 0.73-1.22 [facility] Comment on above: Order Comment: Speci men Type: BLOOD SPECIMENOrdering Facility: [facility] Address: [address] [place] [address] Performed By: #### 2 4323-8 ####[facility] CENTERLIA [id number] [place] [address] [place] eGFRcr SerPlBld CKD-EPI 2020 48 mL/min/1.73m??? Low >=60 [facility] Comment on above: Order Comment: Speci men Type: BLOOD SPECIMENOrdering Facility: [facility] Address: [address] [place] [address] Result Comment: Liliane mated Glomerular Filtration Rate [...] actual GFR. Performed By: #### 2 4323-8 ####[facility] INSTITUTEWNCLIA [id number] [place] [address] [place] Glucose [Mass/Vol] 112 mg/dL High 74-99 [facility] Comment on above: Order Comment: Speci men Type: BLOOD SPECIMENOrdering Facility: [facility] Address: [address] [place] [address] Result Comment: The [place] Diabetes Association (ADA) provides guidance for cutoff [...] Standards of Medical Care in Diabetes 2016, [place] [employer]. Diabetes Care. 2016.39(Suppl 1). Performed By: #### 2 4323-8 ####[facility] HOSPITALEDGARKerri [id number] [place] [address] [place] Potassium [Moles/Vol] 4.9 mmol/L Normal 3.7-5.1 [facility] Comment on above: Order Comment: Ellei men Type: BLOOD SPECIMENOrdering Facility: [facility] Address: [address] [place] [address] Performed By: #### 2 4323-8 ####[facility] HOSPITALROJAS [id number] [place] [address] [place] Protein [Mass/Vol] 6.6 g/dL Normal 6.3-8.0 [facility] Comment on above: Order Comment: Speci men Type: BLOOD SPECIMENOrdering Facility: [facility] Address: [address] [place], [place] [address] Performed By: #### 2 4323-8 ####[facility] HOSPITALEDGARLIA [id number] [place] [address] [place] Sodium [Moles/Vol] 136 mmol/L Normal 136-144 [facility] Comment on above: Order Comment: Speci men Type: BLOOD SPECIMENOrdering Facility: [facility] Address: [facility] [place] [address] Performed By: #### 2 4323-8 ####[facility] AMBERTOWNCLIA [id number] [place] [address] [place] Urea nitrogen [Mass/Vol] 37 mg/dL High 9-24 [facility] Comment on above: Order Comment: Speci men Type: BLOOD SPECIMENOrdering Facility: [facility] Address: [facility] [place] [address] Performed By: #### 2 4323-8 ####[facility] HAROONWNCLIA [id number] [address] STATES OF [facility] Absolute lymphocyte countOrd ered By: Isabella Justice on 05-01-2025 Lymphocytes Auto (Unsp spec) [#/Vol] 0.44 10*3/uL Low 0.83-4.51 [facility] Absolute neutrophil countOrd ered By: Isabella Justice on 05-01-2025 Neutrophils (Bld) [#/Vol] 2.3 10*3/uL 2.0-7.7 [facility] Anion gap in Serum or Plasma Ordered By: Isabella Justice on 05-01-2025 Anion gap [Moles/Vol] 11 mmol/L 5-15 [facility] Automated lymphocyte count a s percentage of total leukocytesOrdered By: Isabella Justice on 05-01-2025 Lymphocytes/100 WBC Auto (Unsp spec) 13.1 % Low 19-41 [facility] BUN/creatinine ratioOrdered By: Isabella Justice on 05-01-2025 Urea nitrogen/Creatinine [Mass ratio] 30.4 mg/mg High 10-20 [facility] Basophil percentageOrdered B y: Isabella Justice on 05-01-2025 Basophils/100 WBC (Bld) 0.9 % 0-1 [facility] Bilirubin, totalOrdered By: Isabella Justice on 05-01-2025 Bilirubin [Mass/Vol] 0.23 mg/dL 0.00-1.30 [facility] CBC W/Diff, Automatedon 08-2 -2024 Absolute Lymph 0.44 X10 3/uL Low 0.83-4.51 [facility] Comment on above: Performed By: #### L 500.4050, L100.0100 #### [facility] [address] [place], [address] Absolute Neut 2.3 X10 3/uL Normal 2.0-7.7 [facility] Comment on above: Performed By: #### L 500.4050, L100.0100 #### [facility] [address] [place], [address] Basophils/100 WBC (Bld) 0.9 % Normal 0-1 [facility] Comment on above: Performed By: #### L 500.4050, L100.0100 #### [facility] [address] [place], [address] Eosinophils/100 WBC (Bld) 3.6 % Normal 0-5 [facility] Comment on above: Performed By: #### L 500.4050, L100.0100 #### [facility] [address] [place], [address] Erythrocyte distribution width (RBC) [Ratio] 16.6 % High 11.6-14.6 [facility] Comment on above: Performed By: #### L 500.4050, L100.0100 #### [facility] [address] [place], [address] Hematocrit (Bld) [Volume fraction] 31.0 % Low 40-54 [facility] Comment on above: Performed By: #### L 500.4050, L100.0100 #### [facility] [address] [place], [address] Hemoglobin (Bld) [Mass/Vol] 9.5 g/dL Low 13.0-16.5 [facility] Comment on above: Performed By: #### L 500.4050, L100.0100 #### [facility] [address] [place], [address] IG% 0.900 Normal 0.0-0.9 [facility] Comment on above: Result Comment: IG% - Immature Granulocytes (promyelocytes, myelocytes and metamyelocytes) > 1% indicates that a LEFT SHIFT is Present. Performed By: #### L 500.4050, L100.0100 #### [facility] [address] [place], [address] Lymphocytes/100 WBC (Bld) 13.1 % Low 19-41 [facility] Comment on above: Performed By: #### L 500.4050, L100.0100 #### [facility] [address] [place], [address] MCH (RBC) [Entitic mass] 28.0 pg Normal 27.0-32.0 [facility] Comment on above: Performed By: #### L 500.4050, L100.0100 #### [facility] [address] [place], [address] MCHC (RBC) [Mass/Vol] 30.6 g/dL Low 32-36 [facility] Comment on above: Performed By: #### L 500.4050, L100.0100 #### [facility] [address] [place], [address] MCV (RBC) [Entitic vol] 91.4 fL Normal 80-94 [facility] Comment on above: Performed By: #### L 500.4050, L100.0100 #### [facility] [address] [place], [address] Monocytes/100 WBC (Bld) 14.8 % High 0-10 [facility] Comment on above: Performed By: #### L 500.4050, L100.0100 #### [facility] [address] [place], [address] Neutrophils/100 WBC (Bld) 66.7 % Normal 47-70 [facility] Comment on above: Performed By: #### L 500.4050, L100.0100 #### [facility] [address] [place], [address] Nucleated RBC (Bld) [#/Vol] 0 10*3/uL Normal 0-5 [facility] Comment on above: Performed By: #### L 500.4050, L100.0100 #### [facility] [address] [place], [address] Platelet mean volume (Bld) [Entitic vol] 9.9 fL Normal 6.2-12.0 [facility] Comment on above: Performed By: #### L 500.4050, L100.0100 #### [facility] [address] [place], [address] Platelets (Bld) [#/Vol] 129 10*3/uL Low 150-450 [facility] Comment on above: Performed By: #### L 500.4050, L100.0100 #### [facility] [address] [place], [address] RBC (Bld) [#/Vol] 3.39 10*6/uL Low 4.6-6.2 [facility] Comment on above: Performed By: #### L 500.4050, L100.0100 #### [facility] [address] [place], [address] RDW SD 55.6 fl High 35.1-43.9 [facility] Comment on above: Performed By: #### L 500.4050, L100.0100 #### [facility] [address] [place], [address] WBC (Bld) [#/Vol] 3.4 10*3/uL Low 4.4-11.0 [facility] Comment on above: Performed By: #### L 500.4050, L100.0100 #### [facility] [address] [place], [address] Carbon dioxide, total [Moles /volume] in Central venous bloodOrdered By: Isabella Justice on 05-01-2025 CO2 [Moles/Vol] 23.6 mmol/L 21.0-32.0 [facility] Chloride assayOrdered By: Sai Justice on 05-01-2025 Chloride [Moles/Vol] 103 mmol/L 98-108 [facility] Comprehensive Metabolic Prof ilon 05-01-2025 Albumin [Mass/Vol] 4.0 g/dL Normal 3.4-4.8 [facility] Comment on above: Performed By: #### L 500.4050, L100.0100 #### [facility] [address] [place], [address] Albumin/Globulin [Mass ratio] 1.5 {ratio} Normal 0.9-2.4 [facility] Comment on above: Performed By: #### L 500.4050, L100.0100 #### [facility] [address] [place], [address] ALK PHOS 63 U/L Normal 40-129 [facility] Comment on above: Performed By: #### L 500.4050, L100.0100 #### [facility] [address] [place], [address] ALT [Catalytic activity/Vol] 19 U/L Normal <=46 [facility] Comment on above: Performed By: #### L 500.4050, L100.0100 #### [facility] [address] [place], [address] AST [Catalytic activity/Vol] 27 U/L Normal <=37 [facility] Comment on above: Performed By: #### L 500.4050, L100.0100 #### [facility] [address] [place], [address] Bilirubin [Mass/Vol] 0.23 mg/dL Normal 0.00-1.30 [facility] Comment on above: Performed By: #### L 500.4050, L100.0100 #### [facility] [address] [place], [address] BUN/CRE 30.4 RATIO High 10-20 [facility] Comment on above: Performed By: #### L 500.4050, L100.0100 #### [facility] [address] [place], [address] Calcium [Mass/Vol] 9.6 mg/dL Normal 7.6-11.0 [facility] Comment on above: Performed By: #### L 500.4050, L100.0100 #### [facility] [address] [place], [address] Chloride [Moles/Vol] 103 mmol/L Normal 98-108 [facility] Comment on above: Performed By: #### L 500.4050, L100.0100 #### [facility] [address] [place], [address] CO2 [Moles/Vol] 23.6 mmol/L Normal 21.0-32.0 [facility] Comment on above: Performed By: #### L 500.4050, L100.0100 #### [facility] [address] [place], [address] Creatinine [Mass/Vol] 1.35 mg/dL High 0.70-1.20 [facility] Comment on above: Performed By: #### L 500.4050, L100.0100 #### [facility] [address] [place], [address] GAP 11 Normal 5-15 [facility] Comment on above: Performed By: #### L 500.4050, L100.0100 #### [facility] [address] [place], [address] GFR/1.73 sq M.predicted among non-blacks MDRD (S/P/Bld) [Vol rate/Area] 50 mL/min/{1.73_m2} Low >60 [facility] Comment on above: Result Comment: mL/m in/1.73m2 CKD-EPI Creatinine Equation (2020) Performed By: #### L 500.4050, L100.0100 #### [facility] [address] [place], [address] Globulin (S) [Mass/Vol] 2.7 g/dL Normal 2.2-4.2 [facility] Comment on above: Performed By: #### L 500.4050, L100.0100 #### [facility] [address] [place], [address] Glucose [Mass/Vol] 100 mg/dL High 70-99 [facility] Comment on above: Performed By: #### L 500.4050, L100.0100 #### [facility] [address] [place], [address] Potassium [Moles/Vol] 4.3 mmol/L Normal 3.3-5.1 [facility] Comment on above: Performed By: #### L 500.4050, L100.0100 #### [facility] [address] [place], [address] Sodium [Moles/Vol] 137 mmol/L Normal 133-145 [facility] Comment on above: Performed By: #### L 500.4050, L100.0100 #### [facility] [address] [place], [address] T PROT 6.7 g/dL Normal 5.9-8.4 [facility] Comment on above: Performed By: #### L 500.4050, L100.0100 #### [facility] [address] [place], [place], [address] Urea nitrogen [Mass/Vol] 41 mg/dL High 4-19 [facility] Comment on above: Performed By: #### L 500.4050, L100.0100 #### [facility] [address] [place], [address] Eosinophil percentageOrdered By: Isabella Justice on 05-01-2025 Eosinophils/100 WBC (Bld) 3.6 % 0-5 [facility] Erythrocyte distribution wid th ratioOrdered By: Isabella Justice on 05-01-2025 Erythrocyte distribution width (RBC) [Ratio] 16.6 % High 11.6-14.6 [facility] Erythrocyte distribution wid th standard deviationOrdered By: Isabella Justice on 05-01-2025 Erythrocyte distribution width (RBC) [Ratio] 55.6 fl High 35.1-43.9 [facility] Glomerular filtration rate ( GFR) estimation/1.73 sq m using serum, plasma, or whole bOrdered By: Isabella Justice on 05-01-2025 GFR/1.73 sq M.predicted among non-blacks MDRD (S/P/Bld) [Vol rate/Area] 50 mL/min/{1.73_m2} Low >60 [facility] Comment on above: mL/min/1.73m2 CKD-EP I Creatinine Equation (2020) Hematocrit Auto (Bld) [Volum e fraction]Ordered By: Isabella Justice on 05-01-2025 Hematocrit (Bld) [Volume fraction] 31.0 % Low 40-54 [facility] Hemoglobin measurementOrdere d By: Isabella Justice on 05-01-2025 Hemoglobin (Bld) [Mass/Vol] 9.5 g/dL Low 13.0-16.5 [facility] Immature granulocytes/100 WB C Auto (Bld)Ordered By: Isabella Justice on 05-01-2025 Immature granulocytes/100 WBC (Bld) 0.900 % 0.0-0.9 [facility] Comment on above: IG% - Immature Granu locytes (promyelocytes, myelocytes and metamyelocytes) > 1% indicates that a LEFT SHIFT is Present. Laboratory - Chemistry and C hemistry - challengeOrdered By: Isabella Justice on 05-01-2025 AST [Catalytic activity/Vol] 27 U/L <38 [facility] MCV (mean corpuscular volume ) determinationOrdered By: Isabella Justice on 05-01-2025 MCV (RBC) [Entitic vol] 91.4 fL 80-94 [facility] Mean corpuscular hemoglobin (MCH) determinationOrdered By: Isabella Justice on 05-01-2025 MCH (RBC) [Entitic mass] 28.0 pg 27.0-32.0 [facility] Mean corpuscular hemoglobin concentration (MCHC) determinationOrdered By: Isabella Justice on 05-01-2025 MCHC (RBC) [Mass/Vol] 30.6 g/dL Low 32-36 [facility] Mean platelet volume determi nationOrdered By: Isabella Justice on 05-01-2025 Platelet mean volume (Bld) [Entitic vol] 9.9 fL 6.2-12.0 [facility] Monocyte percentageOrdered B y: Isabella Justice on 05-01-2025 Monocytes/100 WBC (Bld) 14.8 % High 0-10 [facility] Neutrophil percentageOrdered By: Isabella Justice on 05-01-2025 Neutrophils/100 WBC (Bld) 66.7 % 47-70 [facility] Nucleated red blood cell per centageOrdered By: Isabella Justice on 05-01-2025 Nucleated RBC/100 WBC (Bld) [Ratio] 0 % 0-5 [facility] Platelet countOrdered By: Sai Justice on 05-01-2025 Platelets (Bld) [#/Vol] 129 10*3/uL Low 150-450 [facility] Potassium measurement (mass/ volume)Ordered By: Isabella Justice on 05-01-2025 Potassium (Unsp spec) [Mass/Vol] 4.3 mmol/L 3.3-5.1 [facility] RBC Auto (Bld) [#/Vol]Ordere d By: Isabella Justice on 05-01-2025 RBC (Bld) [#/Vol] 3.39 10*6/uL Low 4.6-6.2 [facility] Serum creatinine measurement (mass/volume)Ordered By: Isabella Justice on 05-01-2025 Creatinine [Mass/Vol] 1.35 mg/dL High 0.70-1.20 [facility] Serum globulin measurementOr dered By: Isabella Justice on 05-01-2025 Globulin (S) [Mass/Vol] 2.7 g/dL 2.2-4.2 [facility] Serum glucose measurement (m ass/volume)Ordered By: Isabella Justice on 05-01-2025 Glucose [Mass/Vol] 100 mg/dL High 70-99 [facility] Serum or plasma alanine lee otransferase (ALT) measurementOrdered By: Isabella Justice on 05-01-2025 ALT [Catalytic activity/Vol] 19 U/L <47 [facility] Serum or plasma albumin elian urement (mass/volume)Ordered By: Isabella Justice on 05-01-2025 Albumin [Mass/Vol] 4.0 g/dL 3.4-4.8 [facility] Serum or plasma albumin/glob ulin mass ratioOrdered By: Isabella Justice on 05-01-2025 Albumin/Globulin [Mass ratio] 1.5 {ratio} 0.9-2.4 [facility] Serum or plasma alkaline anali sphatase measurementOrdered By: Isabella Justice on 05-01-2025 ALP [Catalytic activity/Vol] 63 U/L 40-129 [facility] Serum or plasma calcium elian urement (mass/volume)Ordered By: Isabella Justice on 05-01-2025 Calcium [Mass/Vol] 9.6 mg/dL 7.6-11.0 [facility] Serum or plasma urea nitroge n measurement (mass/volume)Ordered By: Isabella Justice on 05-01-2025 Urea nitrogen [Mass/Vol] 41 mg/dL High 4-19 [facility] Sodium levelOrdered By: Olivia Justice on 05-01-2025 Sodium [Moles/Vol] 137 mmol/L 133-145 [facility] Total proteinOrdered By: Usama Justice on 05-01-2025 Protein [Mass/Vol] 6.7 g/dL 5.9-8.4 [facility] White blood cell (WBC) count Ordered By: Isabella Justice on 05-01-2025 WBC (Bld) [#/Vol] 3.4 10*3/uL Low 4.4-11.0 [facility] CBC W Auto Differential pane l (Bld)on 04-17-2025 Basophils (Bld) [#/Vol] 10*3/uL Normal <0.11 [facility] Comment on above: Order Comment: Speci men Type: BLOOD SPECIMENOrdering Facility: [facility] Address: [address] [place] [address] Performed By: #### 5 7021-8 ####[facility]STITUTEWBAG[facility] MED[facility] CENTERA [id number] [place] [address] [place] Basophils/100 WBC (Bld) 0.5 % Normal [facility] Comment on above: Order Comment: Speci men Type: BLOOD SPECIMENOrdering Facility: [facility] Address: [address] [place] [address] Performed By: #### 5 7021-8 ####[facility] HOS[facility]ITALA [id number] [place] [address] [place] Differential cell count method Nom (Bld) Auto Normal [facility] Comment on above: Order Comment: Speci men Type: BLOOD SPECIMENOrdering Facility: [facility] Address: [address] [place] [address] Performed By: #### 5 7021-8 ####[facility] MILLWNCLIA [id number] [place] [address] [place] Eosinophils (Bld) [#/Vol] 0.11 10*3/uL Normal <0.46 [facility] Comment on above: Order Comment: Speci men Type: BLOOD SPECIMENOrdering Facility: [facility] Address: [address] [place] [address] Performed By: #### 5 7021-8 ####[facility] ZACH [id number] [place] [address] [place] Eosinophils/100 WBC (Bld) 2.9 % Normal [facility] Comment on above: Order Comment: Speci men Type: BLOOD SPECIMENOrdering Facility: [facility] Address: [address] [place] [address] Performed By: #### 5 7021-8 ####[facility] AMBERGATESNCJOHN [id number] [place] [address] [place] Erythrocyte distribution width (RBC) [Ratio] 16.3 % High 11.5-15.0 [facility] Comment on above: Order Comment: Speci men Type: BLOOD SPECIMENOrdering Facility: [facility] Address: [address] [place] [address] Performed By: #### 5 7021-8 ####[facility] AMBERGATESNCJOHN [id number] [place] [address] [place] Hematocrit (Bld) [Volume fraction] 30.4 % Low 39.0-51.0 [facility] Comment on above: Order Comment: Speci men Type: BLOOD SPECIMENOrdering Facility: [facility] Address: [address] [place] [address] Performed By: #### 5 7021-8 ####[facility] HOSPITALEDGARLIA [id number] [place] [address] [place] Hemoglobin (Bld) [Mass/Vol] 9.6 g/dL Low 13.0-17.0 [facility] Comment on above: Order Comment: Speci men Type: BLOOD SPECIMENOrdering Facility: [facility] [facility] [place] Address: [address] [place] [address] Performed By: #### 5 7021-8 ####[facility] MILLWNCLIA [id number] [place] [address] [place] Immature granulocytes (Bld) [#/Vol] 10*3/uL Normal <0.10 [facility] Comment on above: Order Comment: Speci men Type: BLOOD SPECIMENOrdering Facility: [facility] Address: [address] [place] [address] Performed By: #### 5 7021-8 ####[facility]ENTERLIA [id number] [place] [address] [place] Immature granulocytes/100 WBC (Bld) 0.5 % Normal [facility] Comment on above: Order Comment: Speci men Type: BLOOD SPECIMENOrdering Facility: [facility] Address: [address] [place] [address] Performed By: #### 5 7021-8 ####[facility] CENTERLIA [id number] [place] [address] [place] Lymphocytes (Bld) [#/Vol] 0.43 10*3/uL Low 1.00-4.00 [facility] Comment on above: Order Comment: Speci men Type: BLOOD SPECIMENOrdering Facility: [facility] Address: [address] [place] [address] Performed By: #### 5 7021-8 ####[facility]ENTERLIA [id number] [place] [address] [place] Lymphocytes/100 WBC (Bld) 11.4 % Normal [facility] Comment on above: Order Comment: Speci men Type: BLOOD SPECIMENOrdering Facility: [facility] Address: [address] [place] [address] Performed By: #### 5 7021-8 ####[facility] HOSPITALNCLIA [id number] [place] [address] [place] MCH (RBC) [Entitic mass] 28.6 pg Normal 26.0-34.0 [facility] Comment on above: Order Comment: Speci men Type: BLOOD SPECIMENOrdering Facility: [facility] Address: [address] [place] [address] Performed By: #### 5 7021-8 ####[facility] HOSPITALNCCOOKIE [id number] [place] [address] [place] MCHC (RBC) [Mass/Vol] 31.6 g/dL Normal 30.5-36.0 [facility] Comment on above: Order Comment: Speci men Type: BLOOD SPECIMENOrdering Facility: [facility] Address: [address] [place] [address] Performed By: #### 5 7021-8 ####[facility]ITALNCLDS [facility] [id number] [place] [address] [place] MCV (RBC) [Entitic vol] 90.5 fL Normal 80.0-100.0 [facility] Comment on above: Order Comment: Speci men Type: BLOOD SPECIMENOrdering Facility: [facility] Address: [address] [place] [address] Performed By: #### 5 7021-8 ####[facility]ITALNCLDS [facility] [id number] [place] [address] [place] Monocytes (Bld) [#/Vol] 0.46 10*3/uL Normal <0.87 [facility] Comment on above: Order Comment: Speci men Type: BLOOD SPECIMENOrdering Facility: [facility] Address: [address] [place] [address] Performed By: #### 5 7021-8 ####[facility] HOSPITALNCLIA [id number] [place] [address] [place] Monocytes/100 WBC (Bld) 12.2 % Normal [facility] Comment on above: Order Comment: Speci men Type: BLOOD SPECIMENOrdering Facility: [facility] Address: [address] [place] [address] Performed By: #### 5 7021-8 ####[facility] AMBERROSIELIA [id number] [place] [address] [place] Neutrophils (Bld) [#/Vol] 2.72 10*3/uL Normal 1.45-7.50 [facility] Comment on above: Order Comment: Speci men Type: BLOOD SPECIMENOrdering Facility: [facility] Address: [address] [place] [address] Performed By: #### 5 7021-8 ####[facility]ENTERLIA [id number] [place] [address] [place] Neutrophils/100 WBC (Bld) 72.5 % Normal [facility] Comment on above: Order Comment: Speci men Type: BLOOD SPECIMENOrdering Facility: [facility] Address: [address] [place] [address] Performed By: #### 5 7021-8 ####[facility]ENTERLIA [id number] [place] [address] [place] Nucleated RBC (Bld) [#/Vol] 10*3/uL Normal <0.01 [facility] Comment on above: Order Comment: Speci men Type: BLOOD SPECIMENOrdering Facility: [facility] Address: [address] [place] [address] Performed By: #### 5 7021-8 ####[facility] HOSPITALNCLIA [id number] [place] [address] [place] Nucleated RBC/100 WBC (Bld) [Ratio] 0.0 /100 WBC Normal [facility] Comment on above: Order Comment: Speci men Type: BLOOD SPECIMENOrdering Facility: [facility] Address: [address] [place] [address] Performed By: #### 5 7021-8 ####[facility] AMBERWNCLIA [id number] [place] [address] [place] Platelet mean volume (Bld) [Entitic vol] 9.4 fL Normal 9.0-12.7 [facility] Comment on above: Order Comment: Speci men Type: BLOOD SPECIMENOrdering Facility: [facility] Address: [address] [place] [address] Performed By: #### 5 7021-8 ####[facility] CENTERLIA [id number] [place] [address] [place] Platelets (Bld) [#/Vol] 136 10*3/uL Low 150-400 [facility] Comment on above: Order Comment: Speci men Type: BLOOD SPECIMENOrdering Facility: [facility] Address: [address] [place] [address] Performed By: #### 5 7021-8 ####[facility]ENTERLIA [id number] [place] [address] [place] RBC (Bld) [#/Vol] 3.36 10*6/uL Low 4.20-6.00 [facility] Comment on above: Order Comment: Speci men Type: BLOOD SPECIMENOrdering Facility: [facility] Address: [address] [place] [address] Performed By: #### 5 7021-8 ####[facility]ENTERLIA [id number] [place] [address] [place] WBC (Bld) [#/Vol] 3.76 10*3/uL Normal 3.70-11.00 [facility] Comment on above: Order Comment: Speci men Type: BLOOD SPECIMENOrdering Facility: [facility] Address: [address] [place] [address] Performed By: #### 5 7021-8 ####[facility]ENTERLIA [id number] [place] [address] [place] CNOVSPon 04-17-2025 CNOVSP Visit (SP) Office (HEMAWS) -------- JAYLEN GALAVIZ ([id number]) 1935 M Date Time Provider Department 04/17/25 [...] pancytopenia. Had RT to prostate 2022 at [facility]. 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 Normal [facility] 03-06-2025 [facility] Telephone (CHARISMA) -------- JAYLEN GALAVIZ ([id number]) 1935 M Date Time Provider Department 03/06/25 [...] Frannie at Dr. Adela Fleming office at [facility]. 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] 08/26/2021 Benign hypertension [I10] 08/26/[address] of the chest [R93.89] 08/26/2021 Abnormal chest x-ray [R93.89] 08/26/2021 Type 2 diabetes mellitus without complication (*08/26/2021 Anemia [D64.9] 01/04/2025 Encounter Status:Closed by XAVI JACQUES on 03/06/[address] [facility] [address] HEAD OR BRAIN W/O CONTRAS Ton [...] 10:19:54 AM Ordering Provider: JAKI FLEMING Normal [facility] Absolute lymphocyte countOrd ered By: Isabella Justice on 02-05-2025 Lymphocytes Auto (Unsp spec) [#/Vol] 0.42 10*3/uL Low 0.83-4.51 [facility] Absolute neutrophil countOrd ered By: Isabella Justice on 02-05-2025 Neutrophils (Bld) [#/Vol] 3.2 10*3/uL 2.0-7.7 [facility] Anion gap in Serum or Plasma Ordered By: Isabella Justice on 02-05-2025 Anion gap [Moles/Vol] 11 mmol/L 5-15 [facility] Automated lymphocyte count a s percentage of total leukocytesOrdered By: Isabella Justice on 02-05-2025 Lymphocytes/100 WBC Auto (Unsp spec) 9.7 % Low 19-41 [facility] BUN/creatinine ratioOrdered By: [facility] Reshma on 02-05-2025 Urea nitrogen/Creatinine [Mass ratio] 30.1 mg/mg High 10-20 [facility] Basophil percentageOrdered B y: Isabella Justice on 02-05-2025 Basophils/100 WBC (Bld) 0.7 % 0-1 [facility] Bilirubin, totalOrdered By: Isabella Justice on 02-05-2025 Bilirubin [Mass/Vol] 0.20 mg/dL 0.00-1.30 [facility] CBC W/Diff, Automatedon -0 Absolute Lymph 0.42 X10 3/uL Low 0.83-4.51 [facility] Comment on above: Performed By: #### L 500.4050, L100.0100 #### [facility] [address] [place], [address] Absolute Neut 3.2 X10 3/uL Normal 2.0-7.7 [facility] Comment on above: Performed By: #### L 500.4050, L100.0100 #### [facility] [address] [place], [address] Basophils/100 WBC (Bld) 0.7 % Normal 0-1 [facility] Comment on above: Performed By: #### L 500.4050, L100.0100 #### [facility] [address] [place], [address] Eosinophils/100 WBC (Bld) 2.5 % Normal 0-5 [facility] Comment on above: Performed By: #### L 500.4050, L100.0100 #### [facility] [address] [place], [address] Erythrocyte distribution width (RBC) [Ratio] 17.7 % High 11.6-14.6 [facility] Comment on above: Performed By: #### L 500.4050, L100.0100 #### [facility] [address] [place], [address] Hematocrit (Bld) [Volume fraction] 32.6 % Low 40-54 [facility] Comment on above: Performed By: #### L 500.4050, L100.0100 #### [facility] [address] [place], [address] Hemoglobin (Bld) [Mass/Vol] 10.2 g/dL Low 13.0-16.5 [facility] Comment on above: Performed By: #### L 500.4050, L100.0100 #### [facility] [address] [place], [address] IG% 0.500 Normal 0.0-0.9 [facility] Comment on above: Result Comment: IG% - Immature Granulocytes (promyelocytes, myelocytes and metamyelocytes) > 1% indicates that a LEFT SHIFT is Present. Performed By: #### L 500.4050, L100.0100 #### [facility] [address] [place], [address] Lymphocytes/100 WBC (Bld) 9.7 % Low 19-41 [facility] Comment on above: Performed By: #### L 500.4050, L100.0100 #### [facility] [address] [place], [address] MCH (RBC) [Entitic mass] 28.2 pg Normal 27.0-32.0 [facility] Comment on above: Performed By: #### L 500.4050, L100.0100 #### [facility] [address] [place], [address] MCHC (RBC) [Mass/Vol] 31.3 g/dL Low 32-36 [facility] Comment on above: Performed By: #### L 500.4050, L100.0100 #### [facility] [address] [place], [address] MCV (RBC) [Entitic vol] 90.1 fL Normal 80-94 [facility] Comment on above: Performed By: #### L 500.4050, L100.0100 #### [facility] [address] [place], [address] Monocytes/100 WBC (Bld) 12.2 % High 0-10 [facility] Comment on above: Performed By: #### L 500.4050, L100.0100 #### [facility] [address] [place], [address] Neutrophils/100 WBC (Bld) 74.4 % High 47-70 [facility] Comment on above: Performed By: #### L 500.4050, L100.0100 #### [facility] [address] [place], [address] Nucleated RBC (Bld) [#/Vol] 0 10*3/uL Normal 0-5 [facility] Comment on above: Performed By: #### L 500.4050, L100.0100 #### [facility] [address] [place], [address] Platelet mean volume (Bld) [Entitic vol] 9.2 fL Normal 6.2-12.0 [facility] Comment on above: Performed By: #### L 500.4050, L100.0100 #### [facility] [address] [place], [address] Platelets (Bld) [#/Vol] 166 10*3/uL Normal 150-450 [facility] Comment on above: Performed By: #### L 500.4050, L100.0100 #### [facility] [address] [place], [address] RBC (Bld) [#/Vol] 3.62 10*6/uL Low 4.6-6.2 [facility] Comment on above: Performed By: #### L 500.4050, L100.0100 #### [facility] [address] [place], [address] RDW SD 58.5 fl High 35.1-43.9 [facility] Comment on above: Performed By: #### L 500.4050, L100.0100 #### [facility] [address] [place], [address] WBC (Bld) [#/Vol] 4.3 10*3/uL Low 4.4-11.0 [facility] Comment on above: Performed By: #### L 500.4050, L100.0100 #### [facility] [address] [place], [address] Carbon dioxide, total [Moles /volume] in Central venous bloodOrdered By: Isabella Justice on 02-05-2025 CO2 [Moles/Vol] 22.4 mmol/L 21.0-32.0 [facility] Chloride assayOrdered By: Sai Justice on 02-05-2025 Chloride [Moles/Vol] 103 mmol/L 98-108 [facility] Comprehensive Metabolic Prof ilon 02-05-2025 Albumin [Mass/Vol] 4.1 g/dL Normal 3.4-4.8 [facility] Comment on above: Performed By: #### L 500.4050, L100.0100 #### [facility] [address] [place], [address] Albumin/Globulin [Mass ratio] 1.3 {ratio} Normal 0.9-2.4 [facility] Comment on above: Performed By: #### L 500.4050, L100.0100 #### [facility] [address] [place], [address] ALK PHOS 59 U/L Normal 40-129 [facility] Comment on above: Performed By: #### L 500.4050, L100.0100 #### [facility] [address] [place], [address] ALT [Catalytic activity/Vol] 22 U/L Normal <=46 [facility] Comment on above: Performed By: #### L 500.4050, L100.0100 #### [facility] [address] [place], [address] AST [Catalytic activity/Vol] 32 U/L Normal <=37 [facility] Comment on above: Performed By: #### L 500.4050, L100.0100 #### [facility] [address] [place], [address] Bilirubin [Mass/Vol] 0.20 mg/dL Normal 0.00-1.30 [facility] Comment on above: Performed By: #### L 500.4050, L100.0100 #### [facility] [address] [place], [address] BUN/CRE 30.1 RATIO High 10-20 [facility] Comment on above: Performed By: #### L 500.4050, L100.0100 #### [facility] [address] [place], [address] Calcium [Mass/Vol] 10.6 mg/dL Normal 7.6-11.0 [facility] Comment on above: Performed By: #### L 500.4050, L100.0100 #### [facility] [address] [place], [address] Chloride [Moles/Vol] 103 mmol/L Normal 98-108 [facility] Comment on above: Performed By: #### L 500.4050, L100.0100 #### [facility] [address] [place], [address] CO2 [Moles/Vol] 22.4 mmol/L Normal 21.0-32.0 [facility] Comment on above: Performed By: #### L 500.4050, L100.0100 #### [facility] [address] [place], [address] Creatinine [Mass/Vol] 1.47 mg/dL High 0.70-1.20 [facility] Comment on above: Performed By: #### L 500.4050, L100.0100 #### [facility] [address] [place], [address] GAP 11 Normal 5-15 [facility] Comment on above: Performed By: #### L 500.4050, L100.0100 #### [facility] [address] [place], [address] GFR/1.73 sq M.predicted among non-blacks MDRD (S/P/Bld) [Vol rate/Area] 46 mL/min/{1.73_m2} Low >60 [facility] Comment on above: Result Comment: mL/m in/1.73m2 CKD-EPI Creatinine Equation (2020) Performed By: #### L 500.4050, L100.0100 #### [facility] [address] [place], [address] Globulin (S) [Mass/Vol] 3.2 g/dL Normal 2.2-4.2 [facility] Comment on above: Performed By: #### L 500.4050, L100.0100 #### [facility] [address] [place], [address] Glucose [Mass/Vol] 89 mg/dL Normal 70-99 [facility] Comment on above: Performed By: #### L 500.4050, L100.0100 #### [facility] [address] [place], [address] Potassium [Moles/Vol] 4.9 mmol/L Normal 3.3-5.1 [facility] Comment on above: Performed By: #### L 500.4050, L100.0100 #### [facility] [address] [place], [address] Sodium [Moles/Vol] 136 mmol/L Normal 133-145 [facility] Comment on above: Performed By: #### L 500.4050, L100.0100 #### [facility] [address] [place], [address] T PROT 7.3 g/dL Normal 5.9-8.4 [facility] Comment on above: Performed By: #### L 500.4050, L100.0100 #### [facility] [address] [place], [address] Urea nitrogen [Mass/Vol] 44 mg/dL High 4-19 [facility] Comment on above: Performed By: #### L 500.4050, L100.0100 #### [facility] [address] [place], [address] Eosinophil percentageOrdered By: Isabella Justice on 02-05-2025 Eosinophils/100 WBC (Bld) 2.5 % 0-5 [facility] Erythrocyte distribution wid th ratioOrdered By: Isabella Justice on 02-05-2025 Erythrocyte distribution width (RBC) [Ratio] 17.7 % High 11.6-14.6 [facility] Erythrocyte distribution wid th standard deviationOrdered By: Isabella Justice on 02-05-2025 Erythrocyte distribution width (RBC) [Ratio] 58.5 fl High 35.1-43.9 [facility] Glomerular filtration rate ( GFR) estimation/1.73 sq m using serum, plasma, or whole bOrdered By: Isabella Justice on 02-05-2025 GFR/1.73 sq M.predicted among non-blacks MDRD (S/P/Bld) [Vol rate/Area] 46 mL/min/{1.73_m2} Low >60 [facility] Comment on above: mL/min/1.73m2 CKD-EP I Creatinine Equation (2020) Hematocrit Auto (Bld) [Volum e fraction]Ordered By: Isabella Justice on 02-05-2025 Hematocrit (Bld) [Volume fraction] 32.6 % Low 40-54 [facility] Hemoglobin measurementOrdere d By: Isabella Justice on 02-05-2025 Hemoglobin (Bld) [Mass/Vol] 10.2 g/dL Low 13.0-16.5 [facility] Immature granulocytes/100 WB C Auto (Bld)Ordered By: Isabella Justice on 02-05-2025 Immature granulocytes/100 WBC (Bld) 0.500 % 0.0-0.9 [facility] Comment on above: IG% - Immature Granu locytes (promyelocytes, myelocytes and metamyelocytes) > 1% indicates that a LEFT SHIFT is Present. Laboratory - Chemistry and C hemistry - challengeOrdered By: Isabella Justice on 02-05-2025 AST [Catalytic activity/Vol] 32 U/L <38 [facility] MCV (mean corpuscular volume ) determinationOrdered By: Isabella Justice on 02-05-2025 MCV (RBC) [Entitic vol] 90.1 fL 80-94 [facility] Mean corpuscular hemoglobin (MCH) determinationOrdered By: Isabella Justice on 02-05-2025 MCH (RBC) [Entitic mass] 28.2 pg 27.0-32.0 [facility] Mean corpuscular hemoglobin concentration (MCHC) determinationOrdered By: Isabella Justice on 02-05-2025 MCHC (RBC) [Mass/Vol] 31.3 g/dL Low 32-36 [facility] Mean platelet volume determi nationOrdered By: Isabella Justice on 02-05-2025 Platelet mean volume (Bld) [Entitic vol] 9.2 fL 6.2-12.0 [facility] Monocyte percentageOrdered B y: Isabella Justice on 02-05-2025 Monocytes/100 WBC (Bld) 12.2 % High 0-10 [facility] Neutrophil percentageOrdered By: Isabella Justice on 02-05-2025 Neutrophils/100 WBC (Bld) 74.4 % High 47-70 [facility] Nucleated red blood cell per centageOrdered By: Isabella Justice on 02-05-2025 Nucleated RBC/100 WBC (Bld) [Ratio] 0 % 0-5 [facility] Platelet countOrdered By: Sai Justice on 02-05-2025 Platelets (Bld) [#/Vol] 166 10*3/uL 150-450 [facility] Potassium measurement (mass/ volume)Ordered By: Isabella Justice on 02-05-2025 Potassium (Unsp spec) [Mass/Vol] 4.9 mmol/L 3.3-5.1 [facility] RBC Auto (Bld) [#/Vol]Ordere d By: Isabella Justice on 02-05-2025 RBC (Bld) [#/Vol] 3.62 10*6/uL Low 4.6-6.2 [facility] Serum creatinine measurement (mass/volume)Ordered By: Isabella Justice on 02-05-2025 Creatinine [Mass/Vol] 1.47 mg/dL High 0.70-1.20 [facility] Serum globulin measurementOr dered By: Isabella Justice on 02-05-2025 Globulin (S) [Mass/Vol] 3.2 g/dL 2.2-4.2 [facility] Serum glucose measurement (m ass/volume)Ordered By: Isabella Justice on 02-05-2025 Glucose [Mass/Vol] 89 mg/dL 70-99 [facility] Serum or plasma alanine lee otransferase (ALT) measurementOrdered By: Isabella Justice on 02-05-2025 ALT [Catalytic activity/Vol] 22 U/L <47 [facility] Serum or plasma albumin elian urement (mass/volume)Ordered By: Isabella Justice on 02-05-2025 Albumin [Mass/Vol] 4.1 g/dL 3.4-4.8 [facility] Serum or plasma albumin/glob ulin mass ratioOrdered By: Isabella Justice on 02-05-2025 Albumin/Globulin [Mass ratio] 1.3 {ratio} 0.9-2.4 [facility] Serum or plasma alkaline anali sphatase measurementOrdered By: Isabella Justice on 02-05-2025 ALP [Catalytic activity/Vol] 59 U/L 40-129 [facility] Serum or plasma calcium elian urement (mass/volume)Ordered By: Isabella Justice on 02-05-2025 Calcium [Mass/Vol] 10.6 mg/dL 7.6-11.0 [facility] Serum or plasma urea nitroge n measurement (mass/volume)Ordered By: Isabella Justice on 02-05-2025 Urea nitrogen [Mass/Vol] 44 mg/dL High 4-19 [facility] Sodium levelOrdered By: Olivia Justice on 02-05-2025 Sodium [Moles/Vol] 136 mmol/L 133-145 [facility] Total proteinOrdered By: Usama Justice on 02-05-2025 Protein [Mass/Vol] 7.3 g/dL 5.9-8.4 [facility] White blood cell (WBC) count Ordered By: Isabella Justice on 02-05-2025 WBC (Bld) [#/Vol] 4.3 10*3/uL Low 4.4-11.0 [facility] LABORATORYOrdered By: SYSTEM SYSTEM on 01-14-2025 Prostate specific Ag [Mass/Vol] ng/mL Normal 0.02 - 4.00 ng/mL ADM Comment on above: Interpretive Data: P atient results determined by assays using different manufacturers for methods may not be comparable. PSAon 01-14-2025 Prostate Specific Antigen <0.04 Normal 0.02-4.00 [facility] Comment on above: Result Comment: Barbara ent results determined by assays using different manufacturers for methods may not be comparable. Performed By: #### A DIFF, ANEU, CMP, GFR, CBC #### [address] [place], [place] [address] CBC W Auto Differential pane l (Bld)on 01-04-2025 Basophils (Bld) [#/Vol] 0.03 10*3/uL [facility] Basophils/100 WBC (Bld) 0.7 % [facility] Differential cell count method Nom (Bld) Auto [facility] Eosinophils (Bld) [#/Vol] 0.26 10*3/uL [facility] Eosinophils/100 WBC (Bld) 6.3 % [facility] Erythrocyte distribution width (RBC) [Ratio] 18 % High 11.5 - 15.0 % [facility] Hematocrit (Bld) [Volume fraction] 31.6 % Low 39.0 - 51.0 % [facility] Hemoglobin (Bld) [Mass/Vol] 9.9 g/dL Low 13.0 - 17.0 g/dL [facility] Immature granulocytes (Bld) [#/Vol] [facility] Immature granulocytes/100 WBC (Bld) 0.5 % [facility] Interpretation and review of laboratory results Abnormal [facility] Lymphocytes (Bld) [#/Vol] 0.41 10*3/uL Low [facility] Lymphocytes/100 WBC (Bld) 9.9 % [facility] MCH (RBC) [Entitic mass] 28.4 pg 26.0 - 34.0 pg [facility] MCHC (RBC) [Mass/Vol] 31.3 g/dL 30.5 - 36.0 g/dL [facility] MCV (RBC) [Entitic vol] 90.5 fL 80.0 - 100.0 fL [facility] Monocytes (Bld) [#/Vol] 0.73 10*3/uL [facility] Monocytes/100 WBC (Bld) 17.6 % [facility] Neutrophils (Bld) [#/Vol] 2.69 10*3/uL [facility] Neutrophils/100 WBC (Bld) 65 % [facility] Nucleated RBC (Bld) [#/Vol] [facility] Nucleated RBC/100 WBC (Bld) [Ratio] 0 % /100 WBC [facility] Platelet mean volume (Bld) [Entitic vol] 8.8 fL Low 9.0 - 12.7 fL [facility] Platelets (Bld) [#/Vol] 141 10*3/uL Low [facility] RBC (Bld) [#/Vol] 3.49 10*6/uL Low 4.20 - 6.0 0 m/uL [facility] WBC (Bld) [#/Vol] 4.14 10*3/uL [facility] Basophils (Bld) [#/Vol] 0.03 10*3/uL Normal <0.11 [facility] Comment on above: Order Comment: Speci men Type: BLOOD SPECIMENOrdering Facility: [facility] Address: [address] [place] [address] Performed By: #### 5 7021-8 ####[facility] MILLTOWNCLIA [id number] [place] [address] [place] Basophils/100 WBC (Bld) 0.7 % Normal [facility] Comment on above: Order Comment: Speci men Type: BLOOD SPECIMENOrdering Facility: [facility] Address: [address] [place] [address] Performed By: #### 5 7021-8 ####[facility] HOSPITALNCLIA [id number] [place] [address] [place] Differential cell count method Nom (Bld) Auto Normal [facility] Comment on above: Order Comment: Speci men Type: BLOOD SPECIMENOrdering Facility: [facility] Address: [address] [place] [address] Performed By: #### 5 7021-8 ####[facility] MILLTOWNCLIA [id number] [place] [address] [place] Eosinophils (Bld) [#/Vol] 0.26 10*3/uL Normal <0.46 [facility] Comment on above: Order Comment: Speci men Type: BLOOD SPECIMENOrdering Facility: [facility] Address: [address] [place] [address] Performed By: #### 5 7021-8 ####[facility] HOSPITALNCLIA [id number] [place] [address] [place] Eosinophils/100 WBC (Bld) 6.3 % Normal [facility] Comment on above: Order Comment: Speci men Type: BLOOD SPECIMENOrdering Facility: [facility] Address: [address] [place] [address] Performed By: #### 5 7021-8 ####[facility] HOSPITALROJAS [id number] [place] [address] [place] Erythrocyte distribution width (RBC) [Ratio] 18.0 % High 11.5-15.0 [facility] Comment on above: Order Comment: Speci men Type: BLOOD SPECIMENOrdering Facility: [facility] Address: [address] [place] [address] Performed By: #### 5 7021-8 ####[facility] [id number] [place] [address] [place] Hematocrit (Bld) [Volume fraction] 31.6 % Low 39.0-51.0 [facility] Comment on above: Order Comment: Speci men Type: BLOOD SPECIMENOrdering Facility: [facility] Address: [address] [place] [address] Performed By: #### 5 7021-8 ####[facility] HOSPITALEDGARLIA [id number] [place] [address] [place] Hemoglobin (Bld) [Mass/Vol] 9.9 g/dL Low 13.0-17.0 [facility] Comment on above: Order Comment: Speci men Type: BLOOD SPECIMENOrdering Facility: [facility] Address: [address] [place] [address] Performed By: #### 5 7021-8 ####[facility] HOSPITALNCLIA [id number] [place] [address] [place] Immature granulocytes (Bld) [#/Vol] 10*3/uL Normal <0.10 [facility] Comment on above: Order Comment: Speci men Type: BLOOD SPECIMENOrdering Facility: [facility] Address: [address] [place] [address] Performed By: #### 5 7021-8 ####[facility] [id number] [place] [address] [place] Immature granulocytes/100 WBC (Bld) 0.5 % Normal [facility] Comment on above: Order Comment: Speci men Type: BLOOD SPECIMENOrdering Facility: [facility] Address: [address] [place] [address] Performed By: #### 5 7021-8 ####[facility] [id number] [place] [address] [place] Lymphocytes (Bld) [#/Vol] 0.41 10*3/uL Low 1.00-4.00 [facility] Comment on above: Order Comment: Speci men Type: BLOOD SPECIMENOrdering Facility: [facility] Address: [address] [place] [address] Performed By: #### 5 7021-8 ####[facility] [id number] [place] [address] [place] Lymphocytes/100 WBC (Bld) 9.9 % Normal [facility] Comment on above: Order Comment: Speci men Type: BLOOD SPECIMENOrdering Facility: [facility] Address: [address] [place] [address] Performed By: #### 5 7021-8 ####[facility] [id number] [place] [address] [place] MCH (RBC) [Entitic mass] 28.4 pg Normal 26.0-34.0 [facility] Comment on above: Order Comment: Speci men Type: BLOOD SPECIMENOrdering Facility: [facility] Address: [address] [place] [address] Performed By: #### 5 7021-8 ####[facility] AMBERLaurenNCLIA [id number] [place] [address] [place] MCHC (RBC) [Mass/Vol] 31.3 g/dL Normal 30.5-36.0 [facility] Comment on above: Order Comment: Speci men Type: BLOOD SPECIMENOrdering Facility: [facility] Address: [address] [place] [address] Performed By: #### 5 7021-8 ####[facility] HOSPITALNCA [id number] [place] [address] [place] MCV (RBC) [Entitic vol] 90.5 fL Normal 80.0-100.0 [facility] Comment on above: Order Comment: Speci men Type: BLOOD SPECIMENOrdering Facility: [facility] Address: [address] [place] [address] Performed By: #### 5 7021-8 ####[facility] [id number] [place] [address] [place] Monocytes (Bld) [#/Vol] 0.73 10*3/uL Normal <0.87 [facility] Comment on above: Order Comment: Speci men Type: BLOOD SPECIMENOrdering Facility: [facility] Address: [address] [place] [address] Performed By: #### 5 7021-8 ####[facility] CENTERLIA [id number] [place] [address] [place] Monocytes/100 WBC (Bld) 17.6 % Normal [facility] Comment on above: Order Comment: Speci men Type: BLOOD SPECIMENOrdering Facility: [facility] Address: [address] [place] [address] Performed By: #### 5 7021-8 ####[facility] [id number] [place] [address] [place] Neutrophils (Bld) [#/Vol] 2.69 10*3/uL Normal 1.45-7.50 [facility] Comment on above: Order Comment: Speci men Type: BLOOD SPECIMENOrdering Facility: [facility] Address: [address] [place] [address] Performed By: #### 5 7021-8 ####[facility] HOSPITALA [id number] [place] [address] [place] Neutrophils/100 WBC (Bld) 65.0 % Normal [facility] Comment on above: Order Comment: Speci men Type: BLOOD SPECIMENOrdering Facility: [facility] Address: [address] [place] [address] Performed By: #### 5 7021-8 ####[facility]ITALNCLDS HOSPITAL [id number] [place] [address] [place] Nucleated RBC (Bld) [#/Vol] 10*3/uL Normal <0.01 [facility] Comment on above: Order Comment: Speci men Type: BLOOD SPECIMENOrdering Facility: [facility] Address: [address] [place] [address] Performed By: #### 5 7021-8 ####[facility] CENTERLI [id number] [place] [address] [place] Nucleated RBC/100 WBC (Bld) [Ratio] 0.0 /100 WBC Normal [facility] Comment on above: Order Comment: Speci men Type: BLOOD SPECIMENOrdering Facility: [facility] Address: [address] [place] [address] Performed By: #### 5 7021-8 ####[facility] HOSPITALNCLI [id number] [place] [address] [place] Platelet mean volume (Bld) [Entitic vol] 8.8 fL Low 9.0-12.7 [facility] Comment on above: Order Comment: Speci men Type: BLOOD SPECIMENOrdering Facility: [facility] Address: [address] [place] [address] Performed By: #### 5 7021-8 ####[facility] HOSPITALNCCOOKIEA [id number] [place] [address] [place] Platelets (Bld) [#/Vol] 141 10*3/uL Low 150-400 [facility] Comment on above: Order Comment: Speci men Type: BLOOD SPECIMENOrdering Facility: [facility] Address: [address] [place] [address] Performed By: #### 5 7021-8 ####[facility] HOSPITALNCA [id number] [place] [address] [place] RBC (Bld) [#/Vol] 3.49 10*6/uL Low 4.20-6.00 [facility] Comment on above: Order Comment: Speci men Type: BLOOD SPECIMENOrdering Facility: [facility] Address: [address] [place] [address] Performed By: #### 5 7021-8 ####[facility] HOSPITALNCA [id number] [place] [address] [place] WBC (Bld) [#/Vol] 4.14 10*3/uL Normal 3.70-11.00 [facility] Comment on above: Order Comment: Speci men Type: BLOOD SPECIMENOrdering Facility: [facility] Address: [address] [place] [address] Performed By: #### 5 7021-8 ####[facility] HOSPITALNCLIA [id number] [place] [address] [place] CNOVSPon 01-04-2025 CNOVSP Visit (SP) Office (HEMAWS) -------- JAYLEN GALAVIZ ([id number]) 1935 M Date Time Provider Department 01/04/25 [...] for pancytopenia. Had RT to prostate 2022 [facility]. 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 Normal [facility] CBC W Auto Differential pane l (Bld)on 12-14-2024 Basophils (Bld) [#/Vol] [facility] Basophils/100 WBC (Bld) 0.6 % [facility] Differential cell count method Nom (Bld) Auto [facility] Eosinophils (Bld) [#/Vol] 0.22 10*3/uL [facility] Eosinophils/100 WBC (Bld) 6.2 % [facility] Erythrocyte distribution width (RBC) [Ratio] 18.6 % High 11.5 - 15.0 % [facility] Hematocrit (Bld) [Volume fraction] 30.2 % Low 39.0 - 51.0 % [facility] Hemoglobin (Bld) [Mass/Vol] 9.5 g/dL Low 13.0 - 17.0 g/dL [facility] Immature granulocytes (Bld) [#/Vol] [facility] Immature granulocytes/100 WBC (Bld) 0.6 % [facility] Interpretation and review of laboratory results Abnormal [facility] Lymphocytes (Bld) [#/Vol] 0.47 10*3/uL Low [facility] Lymphocytes/100 WBC (Bld) 13.2 % [facility] MCH (RBC) [Entitic mass] 28.5 pg 26.0 - 34.0 pg [facility] MCHC (RBC) [Mass/Vol] 31.5 g/dL 30.5 - 36.0 g/dL [facility] MCV (RBC) [Entitic vol] 90.7 fL 80.0 - 100.0 fL [facility] Monocytes (Bld) [#/Vol] 0.48 10*3/uL NINF [facility] Monocytes/100 WBC (Bld) 13.5 % [facility] Neutrophils (Bld) [#/Vol] 2.35 10*3/uL [facility] Neutrophils/100 WBC (Bld) 65.9 % [facility] Nucleated RBC (Bld) [#/Vol] NINF [facility] Nucleated RBC/100 WBC (Bld) [Ratio] 0 % /100 WBC [facility] Platelet mean volume (Bld) [Entitic vol] 9.1 fL 9.0 - 12.7 fL [facility] Platelets (Bld) [#/Vol] 147 10*3/uL Low [facility] RBC (Bld) [#/Vol] 3.33 10*6/uL Low 4.20 - 6.0 0 m/uL [facility] WBC (Bld) [#/Vol] 3.56 10*3/uL Low [facility] Basophils (Bld) [#/Vol] 10*3/uL Normal <0.11 [facility] Comment on above: Order Comment: Speci men Type: BLOOD SPECIMENOrdering Facility: [facility] Address: [address] [place] [address] Performed By: #### 1 4196-0, 59774-9 ####[facility] [id number] [place] [address] [place] Basophils/100 WBC (Bld) 0.6 % Normal [facility] Comment on above: Order Comment: Speci men Type: BLOOD SPECIMENOrdering Facility: [facility] Address: [address] [place] [address] Performed By: #### 1 4196-0, 44358-5 ####[facility] [id number] [place] [address] [place] Differential cell count method Nom (Bld) Auto Normal [facility] Comment on above: Order Comment: Speci men Type: BLOOD SPECIMENOrdering Facility: [facility] Address: [address] [place] [address] Performed By: #### 1 4196-0, 50331-0 ####[facility] AMBERGATESROJAS [id number] [place] [address] [place] Eosinophils (Bld) [#/Vol] 0.22 10*3/uL Normal <0.46 [facility] Comment on above: Order Comment: Speci men Type: BLOOD SPECIMENOrdering Facility: [facility] Address: [address] [place] [address] Performed By: #### 1 4196-0, 52003-0 ####[facility] HOSPITALEDGARKerri [id number] [address] [place] Eosinophils/100 WBC (Bld) 6.2 % Normal [facility] Comment on above: Order Comment: Speci men Type: BLOOD SPECIMENOrdering Facility: [facility] Address: [address] [place] [address] Performed By: #### 1 4196-0, 86676-5 ####[facility] HOSPITALA [id number] [place] [address] [place] Erythrocyte distribution width (RBC) [Ratio] 18.6 % High 11.5-15.0 [facility] Comment on above: Order Comment: Speci men Type: BLOOD SPECIMENOrdering Facility: [facility] Address: [address] [place] [address] Performed By: #### 1 4196-0, 25715-6 ####[facility] CENTERLIA [id number] [address] [place] Hematocrit (Bld) [Volume fraction] 30.2 % Low 39.0-51.0 [facility] Comment on above: Order Comment: Speci men Type: BLOOD SPECIMENOrdering Facility: [facility] Address: [address] [place] [address] Performed By: #### 1 4196-0, 92196-5 ####[facility] HOSPITALNCLIA [id number] [place] [address] [place] Hemoglobin (Bld) [Mass/Vol] 9.5 g/dL Low 13.0-17.0 [facility] Comment on above: Order Comment: Speci men Type: BLOOD SPECIMENOrdering Facility: [facility] Address: [address] [place] [address] Performed By: #### 1 4196-0, 81362-1 ####[facility] HOSPITALNCLIA [id number] [place] [address] [place] Immature granulocytes (Bld) [#/Vol] 10*3/uL Normal <0.10 [facility] Comment on above: Order Comment: Speci men Type: BLOOD SPECIMENOrdering Facility: [facility] Address: [address] [place] [address] Performed By: #### 1 4196-0, 70533-6 ####[facility] HOS[facility]ITALNCLIA [id number] [place] [address] [place] Immature granulocytes/100 WBC (Bld) 0.6 % Normal [facility] Comment on above: Order Comment: Speci men Type: BLOOD SPECIMENOrdering Facility: [facility] Address: [address] [place] [address] Performed By: #### 1 4196-0, 80036-9 ####[facility] CENTERLIA [id number] [place] [address] [place] Lymphocytes (Bld) [#/Vol] 0.47 10*3/uL Low 1.00-4.00 [facility] Comment on above: Order Comment: Speci men Type: BLOOD SPECIMENOrdering Facility: [facility] Address: [address] [place] [address] Performed By: #### 1 4196-0, 67894-1 ####[facility] CENTERLIA [id number] [place] [address] [place] Lymphocytes/100 WBC (Bld) 13.2 % Normal [facility] Comment on above: Order Comment: Speci men Type: BLOOD SPECIMENOrdering Facility: [facility] Address: [address] [place] [address] Performed By: #### 1 4196-0, 83399-8 ####[facility] AMBERGATESROJAS [id number] [place] [address] [place] MCH (RBC) [Entitic mass] 28.5 pg Normal 26.0-34.0 [facility] Comment on above: Order Comment: Speci men Type: BLOOD SPECIMENOrdering Facility: [facility] Address: [address] [place] [address] Performed By: #### 1 4196-0, 88823-9 ####[facility] HOSPITALROJAS [id number] [place] [address] [place] MCHC (RBC) [Mass/Vol] 31.5 g/dL Normal 30.5-36.0 [facility] Comment on above: Order Comment: Speci men Type: BLOOD SPECIMENOrdering Facility: [facility] Address: [address] [place] [address] Performed By: #### 1 4196-0, 84132-5 ####[facility] AMBERGATESROJAS [id number] [place] [address] [place] MCV (RBC) [Entitic vol] 90.7 fL Normal 80.0-100.0 [facility] Comment on above: Order Comment: Speci men Type: BLOOD SPECIMENOrdering Facility: [facility] Address: [address] [place] [address] Performed By: #### 1 4196-0, 06060-7 ####[facility] AMBERGATESROJAS [id number] [place] [address] [place] Monocytes (Bld) [#/Vol] 0.48 10*3/uL Normal <0.87 [facility] Comment on above: Order Comment: Speci men Type: BLOOD SPECIMENOrdering Facility: [facility] Address: [address] [place] [address] Performed By: #### 1 4196-0, 58410-2 ####[facility] HOSPITALIBETHA [id number] [place] [address] [place] Monocytes/100 WBC (Bld) 13.5 % Normal [facility] Comment on above: Order Comment: Speci men Type: BLOOD SPECIMENOrdering Facility: [facility] Address: [address] [place] [address] Performed By: #### 1 4196-0, 38491-0 ####[facility] HOSPITALROJAS [id number] [place] [address] [place] Neutrophils (Bld) [#/Vol] 2.35 10*3/uL Normal 1.45-7.50 [facility] Comment on above: Order Comment: Speci men Type: BLOOD SPECIMENOrdering Facility: [facility] Address: [address] [place] [address] Performed By: #### 1 4196-0, 81739-0 ####[facility] HOSPITALROJAS [id number] [place] [address] [place] Neutrophils/100 WBC (Bld) 65.9 % Normal [facility] Comment on above: Order Comment: Speci men Type: BLOOD SPECIMENOrdering Facility: [facility] Address: [address] [place] [address] Performed By: #### 1 4196-0, 61723-2 ####[facility] HOSPITALNCLIA [id number] [place] [address] [place] Nucleated RBC (Bld) [#/Vol] 10*3/uL Normal <0.01 [facility] Comment on above: Order Comment: Speci men Type: BLOOD SPECIMENOrdering Facility: [facility] Address: [address] [place] [address] Performed By: #### 1 4196-0, 98711-1 ####[facility] HOSPITALNCA [id number] [place] [address] [place] Nucleated RBC/100 WBC (Bld) [Ratio] 0.0 /100 WBC Normal [facility] Comment on above: Order Comment: Speci men Type: BLOOD SPECIMENOrdering Facility: [facility] Address: [address] [place] [address] Performed By: #### 1 4196-0, 43489-0 ####[facility]ITALNCLDS [facility]OSPITAL [id number] [place] [address] [place] Platelet mean volume (Bld) [Entitic vol] 9.1 fL Normal 9.0-12.7 [facility] Comment on above: Order Comment: Speci men Type: BLOOD SPECIMENOrdering Facility: [facility] Address: [address] [place] [address] Performed By: #### 1 4196-0, 02751-2 ####[facility] HOSPITALA [id number] [place] [address] [place] Platelets (Bld) [#/Vol] 147 10*3/uL Low 150-400 [facility] Comment on above: Order Comment: Speci men Type: BLOOD SPECIMENOrdering Facility: [facility] Address: [address] [place] [address] Performed By: #### 1 4196-0, 93976-5 ####[facility] HOSPITALNCLI [id number] [place] [address] [place] RBC (Bld) [#/Vol] 3.33 10*6/uL Low 4.20-6.00 [facility] Comment on above: Order Comment: Speci men Type: BLOOD SPECIMENOrdering Facility: [facility] Address: [facility] [place] [id number] Performed By: #### 1 4196-0, 12292-2 ####[facility]ITALNCLIA [id number] [place] [address] [place] WBC (Bld) [#/Vol] 3.56 10*3/uL Low 3.70-11.00 [facility] Comment on above: Order Comment: Speci men Type: BLOOD SPECIMENOrdering Facility: [facility] Address: [facility] [place] [address] Performed By: #### 1 4196-0, 05651-9 ####[facility]ITALNCLIA [id number] [address] [place] CNOVSPon 12-14-2024 CNOVSP Visit (SP) Office (HEMAWS) -------- JAYLEN GALAVIZ ([id number]) 1935 M Date Time Provider Department 12/14/24 [...] for pancytopenia. Had RT to prostate 2022 [facility]. 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 Normal [facility] Creatinine + eGFR Pnl SerPlB ldon 12-14-2024 Creatinine and Glomerular filtration rate.predicted panel (S/P/Bld) 58 mL/min/1.73m??? Low >=60 [facility] Comment on above: Order Comment: Olga suarez Type: BLOOD SPECIMENOrdering Facility: [facility] Address: [address] [place] [address] Result Comment: Liliane mated Glomerular Filtration Rate [...] actual GFR. Performed By: #### [id number] ####[facility] [id number] [address] OF [facility] Creatinine and Glomerular fi ltration rate.predicted panel (S/P/Bld)Ordered By: Desi Martin on 12-14-2024 Creatinine [Mass/Vol] 1.21 mg/dL 0.73 - 1.22 mg/dL [facility] GFR/1.73 sq M.predicted among non-blacks MDRD (S/P/Bld) [Vol rate/Area] 58 mL/min/{1.73_m2} Low - PINF [facility] Comment on above: Estimated Glomerular Filtration Rate [...] Interpretation and review of laboratory results Abnormal [facility] Creatinine and Glomerular fi ltration rate.predicted panel (S/P/Bld)on 12-14-2024 Creatinine [Mass/Vol] 1.21 mg/dL Normal 0.73-1.22 [facility] Comment on above: Order Comment: Olga suarez Type: BLOOD SPECIMENOrdering Facility: [facility] Address: [address] [place] [address] Performed By: #### 4 5066-8 ####[facility] [id number] [place] [id number] [place] Ferritin SerPl-mCncon 2024 Ferritin [Mass/Vol] 90.0 ng/mL Normal 30.3-565.7 [facility] Comment on above: Order Comment: Speci men Type: BLOOD SPECIMENOrdering Facility: [facility] Address: [address] [place] [address] Performed By: #### 4 542-7, 46377-1, 2276-4 ####[facility] LABIA [id number] [place] [address] [place] Folate SerPl-mCncon 12-15-19 Folate [Mass/Vol] 13.5 ng/mL Normal >4.7 [facility] Comment on above: Order Comment: Speci men Type: BLOOD SPECIMENOrdering Facility: [facility] Address: [address] [place] [address] Performed By: #### 2 132-9, 2284-8 ####[facility] LABIA [id number] [place] [address] [place] Haptoglob SerPl-mCncon 12-14 Haptoglobin [Mass/Vol] 50 mg/dL Normal 31-238 [facility] Comment on above: Order Comment: Speci men Type: BLOOD SPECIMENOrdering Facility: [facility] Address: [address] [place] [address] Performed By: #### 4 542-7, 08716-6, 2276-4 ####[facility] LABIA [id number] [place] [address] [place] Iron and Iron binding capaci ty panelon 12-14-2024 Iron [Mass/Vol] 57 ug/dL Normal 41-186 [facility] Comment on above: Order Comment: Speci men Type: BLOOD SPECIMENOrdering Facility: [facility] Address: [address] [place] [address] Performed By: #### 4 542-7, 97974-0, 6-4 ####[facility] LABCLIA [id number] [place] [id number] [place] Iron binding capacity [Mass/Vol] 373 ug/dL Normal 232-386 [facility] Comment on above: Order Comment: Speci men Type: BLOOD SPECIMENOrdering Facility: [facility] Address: [address] [place] [address] Performed By: #### 4 542-7, 60103-0, 4 ####[facility] LABCLIA [id number] [place] [id number] [place] Iron/TIBC [Molar ratio] 15.3 % Normal 15.0-57.0 [facility] Comment on above: Order Comment: Speci men Type: BLOOD SPECIMENOrdering Facility: [facility] Address: [address] [place] [address] Performed By: #### 4 542-7, 80627-8, 4 ####[facility] LABCLIA [id number] [place] [id number] [place] No Panel Informationon 12-14 [facility] RETICULOCYTE COUNTon 025 Reticulocytes (Bld) [#/Vol] 0.047 10*3/uL [facility] Retics #on 12-14-2024 Reticulocytes (Bld) [#/Vol] 0.93810 10*3/uL Normal 0.018-0.100 [facility] Comment on above: Order Comment: Speci men Type: BLOOD SPECIMENOrdering Facility: [facility] Address: [address] [place] [address] Performed By: #### 1 4196-0, 87408-2 ####[facility] [id number] [address] [place] Reticulocytes (Bld) [#/Vol]o n 12-14-2024 Interpretation and review of laboratory results Normal [facility] Reticulocytes/100 RBC (Bld) 1.4 % 0.4 - 2.0 % [facility] Reticulocytes/100 RBC (Bld) 1.4 % Normal 0.4-2.0 [facility] Comment on above: Order Comment: Olga suarez Type: BLOOD SPECIMENOrdering Facility: [facility] Address: [address] [place] [address] Performed By: #### 1 4196-0, 34398-2 ####[facility] [id number] [place] [address] [place] Vit B12 SerPl-ncon 025 Cobalamin (Vitamin B12) [Mass/Vol] 498 pg/mL Normal 232-1245 [facility] Comment on above: Order Comment: Olga suarez Type: BLOOD SPECIMENOrdering Facility: [facility] Address: [address] [place] [address] Performed By: #### 2 132-9, 2284-8 ####[facility] LABCLIA [id number] [address] [place] CNOVon 11-29-2024 CNOV Office Visit (MMAS ) -------- JAYLEN GALAVIZ ([id number]) 1935 M Date Time Provider Department 11/29/24 10:45 AM FABIOLA CROSS [facility] During your visit today, we recorded the following information about you: Temperature Pulse Respiration Blood pressure 98.1 degrees 94/minute 18/minute 132/64 Weight 92.5 kg Chelita Lawson LPN 11/29/2024 12:58 PM Signed Patient unable to verify medication list at this time. Chelita Lawson, Fabiola Hall, STANLEY.FELT CEMENTER 11/29/2024 12:58 PM Signed [facility] OLIVIERN Nati Galaviz is [...] agreed with plan and discharged kailey Cross APRN.FELT CEMENTER MDM Procedures 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 APRN.CNP 11/29/2024 12:03 PM Signed OK to resume therapy. Follow printed instructions from Up to date. Follow up with PCP if no improvement in 1-2 weeks Referring Provider: SELF [200] Allergies As of Date: 11/29/2024 Noted Allergy Reaction ROSUVASTATIN 07/24/2020 17 - Myalgia Date Reviewed: 11/29/2024 Reviewed by: 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 APRN.FELT CEMENTER - Fully Assessed Reason for Visit: left upper arm pain [Other] Cmt: Patient states 6 days ago he fell off his tractor and went to catch himself - he is now having left upper arm pain Primary Visit Diagnosis:Injury of left upper arm, initial encounter [S49.92XA] Other Visit Diagnosis:Biceps tendonitis on left [M75.22] Order(s):XR HUMERUS 2V AP/LAT LEFT [[id number]] Order #: [id number] FUTURE Prescriptions as of 11/29/2024 - ascorbic [...] CPAP - SITagliptin-metFOR (more content not included)... [facility] XR HUMERUS 2V AP/LAT LTon [...] the shoulder. IMPRESSION: No acute osseous abnormality. Caterer Helper: [facility] Transcribe Date/Time: Nov 29 2024 12:16P Dictated by : JEMMA SUH MD This examination was interpreted and the report reviewed and electronically signed by: JEMMA SUH MD on Nov 29 2024 12:16PM EST [id number] [facility] XR Humerus - left AP and Lat eralon 11-29-2024 IMPRESSION: No acute osseous abnormality. Caterer Helper: [facility] Transcribe Date/Time: Nov 29 2024 12:16P Dictated by : JEMMA SUH MD This examination was interpreted and the report reviewed and electronically signed by: JEMMA SUH MD on Nov 29 2024 12:16PM EST [facility] * * *Final Report* * * [...] Degenerative changes are present in the shoulder. [facility] Provider, Nehemias Arevalo carrie Kelle - [...] shoulder. IMPRESSION IMPRESSION: No acute osseous abnormality. Caterer Helper: [facility] Transcribe Date/Time: Nov 29 2024 12:16P Dictated by : JEMMA SUH MD This examination was interpreted and the report reviewed and electronically signed by: JEMMA SUH MD on Nov 29 2024 12:16PM [facility] Radiology Study observation (narrative) [facility] XR Humerus - left AP and Lat eralOrdered By: Ccf Provider on 11-29-2024 [facility] CNPCaro 11-28-2024 CNPN Telephone (CHARISMA) -------- JAYLEN GALAVIZ ([id number]) 1935 M Date Time Provider Department 11/28/24 HA LUQUE During your visit today, we recorded the following information about you: Shilpa Trivedi 11/28/2024 11:15 AM Signed Lvm for patient to return the call. When patient calls back please schedule with either provider 1st available Folder at the senior abap developer COOLER SERVICE SUPERVISOR/WORSENING ANEMIA/REF BY DR. LONNIE POLLACK* Shilpa Wang [facility], [place] 12/03/2024 9:14 AM Signed Scheduled [...] disease) stage 3, GFR 30-59*08/26/2021 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 [I25.10] 08/26/2021 Benign hypertension [I10] 08/26/[address] of the chest [R93.89] 08/26/2021 Abnormal chest x-ray [R93.89] 08/26/2021 Type 2 diabetes mellitus without complication (*08/26/2021 Encounter Status:Closed by ALTAGRACIA TAFOYA on 12/03/24 Normal [facility] .Auto Diffon 11-21-2024 Basophil, Absolute 0.0 10 3/mcL Normal 0.0-0.2 [facility] Comment on above: Performed By: #### A DIFF, ANEU, CMP, GFR, CBC #### [address] [address] Basophils/100 WBC (Bld) 1.2 % Normal 0.0-2.5 [facility] Comment on above: Performed By: #### A DIFF, ANEU, CMP, GFR, CBC #### [address] [address] Eosinophil, Absolute 0.2 10 3/mcL Normal 0.0-0.7 [facility] Comment on above: Performed By: #### A DIFF, ANEU, CMP, GFR, CBC #### [address] [address] Eosinophils/100 WBC (Bld) 5.5 % Normal 0.0-7.0 [facility] Comment on above: Performed By: #### A DIFF, ANEU, CMP, GFR, CBC #### [address] [address] Lymphocyte, Absolute 0.4 10 3/mcL Low 0.9-4.3 [facility] Comment on above: Performed By: #### A DIFF, ANEU, CMP, GFR, CBC #### [address] [address] Lymphocytes/100 WBC (Bld) 8.4 % Low 20.0-40.0 [facility] Comment on above: Performed By: #### A DIFF, ANEU, CMP, GFR, CBC #### [address] [address] Monocyte, Absolute 0.5 10 3/mcL Normal 0.1-1.4 [facility] Comment on above: Performed By: #### A DIFF, ANEU, CMP, GFR, CBC #### [address] [address] Monocytes/100 WBC (Bld) 13.0 % Normal 2.0-13.0 [facility] Comment on above: Performed By: #### A DIFF, ANEU, CMP, GFR, CBC #### [address] [address] Neutrophils/100 WBC (Bld) 71.9 % Normal 50.0-75.0 [facility] Comment on above: Performed By: #### A DIFF, ANEU, CMP, GFR, CBC #### [address] [address] .GFRon 11-21-2024 Estimated Glomerular Filtration Rate 48 ml/min/1.73sqm Normal [facility] Comment on above: Result Comment: Stages of [...] A DIFF, ANEU, CMP, GFR, CBC #### [address] [address] .NEUABSon 11-21-2024 Neutrophil, Absolute 3.0 10 3/mcL Normal 2.3-8.1 [facility] Comment on above: Performed By: #### A DIFF, ANEU, CMP, GFR, CBC #### [place] [address] A1Con 11-21-2024 Glucose [Mass/Vol] 177 mg/dL Normal [facility] Comment on above: Result Comment: Liliane mated Average Glucose calculated by equation ((28.7xA1C)-46.7) Estimated average glucose (eAG) is a calculated value from Hemoglobin A1C and is sales representative malt liquors of the average blood glucose level in the last 2-3 month period. Normal range: less than 114 mg/dL Performed By: #### A DIFF, ANEU, CMP, GFR, CBC #### [place] [address] HbA1c (Bld) [Mass fraction] 7.8 % High 4.3-6.4 [facility] Comment on above: Performed By: #### A DIFF, ANEU, CMP, GFR, CBC #### [place] [address] CBCon 11-21-2024 Erythrocyte distribution width (RBC) [Ratio] 18.2 % High 11.5-15.5 [facility] Comment on above: Performed By: #### A DIFF, ANEU, CMP, GFR, CBC #### [place] [address] Hematocrit (Bld) [Volume fraction] 29.3 % Low 40.0-52.0 [facility] Comment on above: Performed By: #### A DIFF, ANEU, CMP, GFR, CBC #### [place] [address] Hgb 9.8 G/dL Low 13.0-17.5 [facility] Comment on above: Performed By: #### A DIFF, ANEU, CMP, GFR, CBC #### [place] [address] MCH (RBC) [Entitic mass] 28.7 pg Normal 27.0-33.0 [facility] Comment on above: Performed By: #### A DIFF, ANEU, CMP, GFR, CBC #### [place] [address] MCHC 33.3 G/dL Normal 32.0-36.0 [facility] Comment on above: Performed By: #### A DIFF, ANEU, CMP, GFR, CBC #### [place] [address] MCV (RBC) [Entitic vol] 86.4 fL Normal 81.0-100.0 [facility] Comment on above: Performed By: #### A DIFF, ANEU, CMP, GFR, CBC #### [place] [address] Platelet 207 10 3/mcL Normal 150-450 [facility] Comment on above: Performed By: #### A DIFF, ANEU, CMP, GFR, CBC #### [place] [address] Platelet mean volume (Bld) [Entitic vol] 7.2 fL Normal 6.4-10.5 [facility] Comment on above: Performed By: #### A DIFF, ANEU, CMP, GFR, CBC #### [place] [address] RBC 3.40 10 6/mcL Low 4.50-6.00 [facility] Comment on above: Performed By: #### A DIFF, ANEU, CMP, GFR, CBC #### [place] [address] WBC 4.2 10 3/mcL Low 4.5-10.8 [facility] Comment on above: Performed By: #### A DIFF, ANEU, CMP, GFR, CBC #### [place] [id number] CMPon 11-21-2024 Albumin Level 3.3 G/dL Low 3.4-4.8 [facility] Comment on above: Performed By: #### A DIFF, ANEU, CMP, GFR, CBC #### [place] [id number] Albumin/Globulin [Mass ratio] 0.8 {ratio} Low 1.1-2.5 [facility] Comment on above: Performed By: #### A DIFF, ANEU, CMP, GFR, CBC #### [place] [id number] ALP [Catalytic activity/Vol] 79 U/L Normal 40-135 [facility] Comment on above: Performed By: #### A DIFF, ANEU, CMP, GFR, CBC #### [place] [id number] ALT [Catalytic activity/Vol] 22 U/L Normal 16-63 [facility] Comment on above: Performed By: #### A DIFF, ANEU, CMP, GFR, CBC #### [place] [id number] AST [Catalytic activity/Vol] 21 U/L Normal 10-40 [facility] Comment on above: Performed By: #### A DIFF, ANEU, CMP, GFR, CBC #### [place] [id number] Bili Total 0.3 mg/dL Normal 0.2-1.0 [facility] Comment on above: Result Comment: Use of this assay is not recommended for patients undergoing treatment with eltrombopag due to the potential for falsely elevated results. Performed By: #### A DIFF, ANEU, CMP, GFR, CBC #### [place] [id number] BUN/Creatinine Ratio 20 ratio Normal 7-27 [facility] Comment on above: Performed By: #### A DIFF, ANEU, CMP, GFR, CBC #### [place] [id number] Calcium [Mass/Vol] 10.0 mg/dL Normal 8.4-10.2 [facility] Comment on above: Performed By: #### A DIFF, ANEU, CMP, GFR, CBC #### [address] [address] Chloride [Moles/Vol] 100 mmol/L Normal 98-107 [facility] Comment on above: Performed By: #### A DIFF, ANEU, CMP, GFR, CBC #### [address] [address] CO2 [Moles/Vol] 27 mmol/L Normal 23-31 [facility] Comment on above: Performed By: #### A DIFF, ANEU, CMP, GFR, CBC #### [address] [address] Creatinine [Mass/Vol] 1.41 mg/dL High 0.70-1.30 [facility] Comment on above: Result Comment: Test ing performed on Esc[employer]io Dimension EXL analyzer using a modified kinetic Derrell technique. Performed By: #### A DIFF, ANEU, CMP, GFR, CBC #### [address] [address] Electrolyte Balance 9.0 mEq/L Normal 4.0-15.0 [facility] Comment on above: Performed By: #### A DIFF, ANEU, CMP, GFR, CBC #### [address] [address] Globulin 3.9 G/dL High 1.5-3.8 [facility] Comment on above: Performed By: #### A DIFF, ANEU, CMP, GFR, CBC #### [address] [address] Glucose [Mass/Vol] 165 mg/dL High 83-110 [facility] Comment on above: Performed By: #### A DIFF, ANEU, CMP, GFR, CBC #### [address] [address] Potassium [Moles/Vol] 4.7 mmol/L Normal 3.5-5.1 [facility] Comment on above: Performed By: #### A DIFF, ANEU, CMP, GFR, CBC #### [address] [address] Sodium [Moles/Vol] 136 mmol/L Normal 136-145 [facility] Comment on above: Performed By: #### A DIFF, ANEU, CMP, GFR, CBC #### [address] [address] Total Protein 7.2 G/dL Normal 6.4-8.2 [facility] Comment on above: Performed By: #### A DIFF, ANEU, CMP, GFR, CBC #### [address] [address] Urea nitrogen [Mass/Vol] 28 mg/dL High 7-18 [facility] Comment on above: Performed By: #### A DIFF, ANEU, CMP, GFR, CBC #### [address] [address] LIPIDon 11-21-2024 Cholesterol [Mass/Vol] 244 mg/dL High 0-200 [facility] Comment on above: Result Comment: Chol esterol Reference Interval: Less than 200 Desirable 200-239 Borderline high risk 240 and above High risk Performed By: #### A DIFF, ANEU, CMP, GFR, CBC #### [address] [address] Cholesterol in HDL [Mass/Vol] 44 mg/dL Normal 40-60 [facility] Comment on above: Performed By: #### A DIFF, ANEU, CMP, GFR, CBC #### [address] [address] Cholesterol in LDL [Mass/Vol] 172 mg/dL High 0-130 [facility] Comment on above: Performed By: #### A DIFF, ANEU, CMP, GFR, CBC #### [address] [address] Triglyceride [Mass/Vol] 141 mg/dL Normal 0-150 [facility] Comment on above: Result Comment: Trig lyceride Reference Interval: Less than 150 Normal 150-199 Borderline high risk 200-499 High risk 500 or higher Very high risk Performed By: #### A DIFF, ANEU, CMP, GFR, CBC #### [address] [address] .Auto Diffon 11-06-2024 Basophil, Absolute 0.0 10 3/mcL Normal 0.0-0.2 [facility] Comment on above: Performed By: #### A DIFF, ANEU, CMP, GFR, CBC #### [address] [address] Basophils/100 WBC (Bld) 0.8 % Normal 0.0-2.5 [facility] Comment on above: Performed By: #### A DIFF, ANEU, CMP, GFR, CBC #### [address] [address] Eosinophil, Absolute 0.4 10 3/mcL Normal 0.0-0.7 [facility] Comment on above: Performed By: #### A DIFF, ANEU, CMP, GFR, CBC #### [address] [address] Eosinophils/100 WBC (Bld) 7.2 % High 0.0-7.0 [facility] Comment on above: Performed By: #### A DIFF, ANEU, CMP, GFR, CBC #### [address] [address] Lymphocyte, Absolute 0.3 10 3/mcL Low 0.9-4.3 [facility] Comment on above: Performed By: #### A DIFF, ANEU, CMP, GFR, CBC #### [address] [address] Lymphocytes/100 WBC (Bld) 6.3 % Low 20.0-40.0 [facility] Comment on above: Performed By: #### A DIFF, ANEU, CMP, GFR, CBC #### [address] [address] Monocyte, Absolute 0.7 10 3/mcL Normal 0.1-1.4 [facility] Comment on above: Performed By: #### A DIFF, ANEU, CMP, GFR, CBC #### [address] [address] Monocytes/100 WBC (Bld) 13.6 % High 2.0-13.0 [facility] Comment on above: Performed By: #### A DIFF, ANEU, CMP, GFR, CBC #### [address] [address] Neutrophils/100 WBC (Bld) 72.1 % Normal 50.0-75.0 [facility] Comment on above: Performed By: #### A DIFF, ANEU, CMP, GFR, CBC #### [address] [address] .GFRon 11-06-2024 Estimated Glomerular Filtration Rate 38 ml/min/1.73sqm Normal [facility] Comment on above: Result Comment: Stages of [...] A DIFF, ANEU, CMP, GFR, CBC #### [address] [address] .NEUABSon 11-06-2024 Neutrophil, Absolute 3.8 10 3/mcL Normal 2.3-8.1 [facility] Comment on above: Performed By: #### A DIFF, ANEU, CMP, GFR, CBC #### [address] [address] CBCon 11-06-2024 Erythrocyte distribution width (RBC) [Ratio] 17.7 % High 11.5-15.5 [facility] Comment on above: Performed By: #### A DIFF, ANEU, CMP, GFR, CBC #### [address] [address] Hematocrit (Bld) [Volume fraction] 30.2 % Low 40.0-52.0 [facility] Comment on above: Performed By: #### A DIFF, ANEU, CMP, GFR, CBC #### [address] [address] Hgb 10.2 G/dL Low 13.0-17.5 [facility] Comment on above: Performed By: #### A DIFF, ANEU, CMP, GFR, CBC #### [address] [address] MCH (RBC) [Entitic mass] 29.2 pg Normal 27.0-33.0 [facility] Comment on above: Performed By: #### A DIFF, ANEU, CMP, GFR, CBC #### [address] [address] MCHC 33.7 G/dL Normal 32.0-36.0 [facility] Comment on above: Performed By: #### A DIFF, ANEU, CMP, GFR, CBC #### [address] [address] MCV (RBC) [Entitic vol] 86.6 fL Normal 81.0-100.0 [facility] Comment on above: Performed By: #### A DIFF, ANEU, CMP, GFR, CBC #### [address] [address] Platelet 223 10 3/mcL Normal 150-450 [facility] Comment on above: Performed By: #### A DIFF, ANEU, CMP, GFR, CBC #### [address] [address] Platelet mean volume (Bld) [Entitic vol] 6.9 fL Normal 6.4-10.5 [facility] Comment on above: Performed By: #### A DIFF, ANEU, CMP, GFR, CBC #### [address] [address] RBC 3.48 10 6/mcL Low 4.50-6.00 [facility] Comment on above: Performed By: #### A DIFF, ANEU, CMP, GFR, CBC #### [address] [address] WBC 5.2 10 3/mcL Normal 4.5-10.8 [facility] Comment on above: Performed By: #### A DIFF, ANEU, CMP, GFR, CBC #### [place] [address] CMPon 11-06-2024 Albumin Level 3.2 G/dL Low 3.4-4.8 [facility] Comment on above: Performed By: #### A DIFF, ANEU, CMP, GFR, CBC #### [place] [address] Albumin/Globulin [Mass ratio] 0.8 {ratio} Low 1.1-2.5 [facility] Comment on above: Performed By: #### A DIFF, ANEU, CMP, GFR, CBC #### [place] [address] ALP [Catalytic activity/Vol] 82 U/L Normal 40-135 [facility] Comment on above: Performed By: #### A DIFF, ANEU, CMP, GFR, CBC #### [place] [address] ALT [Catalytic activity/Vol] 21 U/L Normal 16-63 [facility] Comment on above: Performed By: #### A DIFF, ANEU, CMP, GFR, CBC #### [address] [address] AST [Catalytic activity/Vol] 25 U/L Normal 10-40 [facility] Comment on above: Performed By: #### A DIFF, ANEU, CMP, GFR, CBC #### [place] [address] Bili Total 0.3 mg/dL Normal 0.2-1.0 [facility] Comment on above: Result Comment: Use of this assay is not recommended for patients undergoing treatment with eltrombopag due to the potential for falsely elevated results. Performed By: #### A DIFF, ANEU, CMP, GFR, CBC #### [address] [address] BUN/Creatinine Ratio 22 ratio Normal 7-27 [facility] Comment on above: Performed By: #### A DIFF, ANEU, CMP, GFR, CBC #### [address] [address] Calcium [Mass/Vol] 9.4 mg/dL Normal 8.4-10.2 [facility] Comment on above: Performed By: #### A DIFF, ANEU, CMP, GFR, CBC #### [place] [address] Chloride [Moles/Vol] 101 mmol/L Normal 98-107 [facility] Comment on above: Performed By: #### A DIFF, ANEU, CMP, GFR, CBC #### [place] [address] CO2 [Moles/Vol] 29 mmol/L Normal 23-31 [facility] Comment on above: Performed By: #### A DIFF, ANEU, CMP, GFR, CBC #### [place] [address] Creatinine [Mass/Vol] 1.72 mg/dL High 0.70-1.30 [facility] Comment on above: Result Comment: Test ing performed on Siemens Dimension EXL analyzer using a modified kinetic Derrell technique. Performed By: #### A DIFF, ANEU, CMP, GFR, CBC #### [place] [address] Electrolyte Balance 7.0 mEq/L Normal 4.0-15.0 [facility] Comment on above: Performed By: #### A DIFF, ANEU, CMP, GFR, CBC #### [place] [address] Globulin 4.1 G/dL High 1.5-3.8 [facility] Comment on above: Performed By: #### A DIFF, ANEU, CMP, GFR, CBC #### [address] [place] [address] Glucose [Mass/Vol] 144 mg/dL High 83-110 [facility] Comment on above: Performed By: #### A DIFF, ANEU, CMP, GFR, CBC #### [address] [address] Potassium [Moles/Vol] 4.8 mmol/L Normal 3.5-5.1 [facility] Comment on above: Performed By: #### A DIFF, ANEU, CMP, GFR, CBC #### [address] [address] Sodium [Moles/Vol] 137 mmol/L Normal 136-145 [facility] Comment on above: Performed By: #### A DIFF, ANEU, CMP, GFR, CBC #### [address] [address] Total Protein 7.3 G/dL Normal 6.4-8.2 [facility] Comment on above: Performed By: #### A DIFF, ANEU, CMP, GFR, CBC #### [address] [address] Urea nitrogen [Mass/Vol] 37 mg/dL High 7-18 [facility] Comment on above: Performed By: #### A DIFF, ANEU, CMP, GFR, CBC #### [address] [address] LABORATORYOrdered By: SYSTEM SYSTEM on 11-06-2024 Albumin [...] Basophil, Absolute 0.0 10 3/mcL Normal 0.0-0.2 [facility] Comment on above: Performed By: #### A DIFF, ANEU, CMP, GFR, CBC #### [address] [address] Basophils/100 WBC (Bld) 1.3 % Normal 0.0-2.5 [facility] Comment on above: Performed By: #### A DIFF, ANEU, CMP, GFR, CBC #### [address] [address] Eosinophil, Absolute 0.2 10 3/mcL Normal 0.0-0.7 [facility] Comment on above: Performed By: #### A DIFF, ANEU, CMP, GFR, CBC #### [address] [address] Eosinophils/100 WBC (Bld) 5.2 % Normal 0.0-7.0 [facility] Comment on above: Performed By: #### A DIFF, ANEU, CMP, GFR, CBC #### [address] [address] Lymphocyte, Absolute 0.4 10 3/mcL Low 0.9-4.3 [facility] Comment on above: Performed By: #### A DIFF, ANEU, CMP, GFR, CBC #### [address] [address] Lymphocytes/100 WBC (Bld) 9.5 % Low 20.0-40.0 [facility] [facility] Comment on above: Performed By: #### A DIFF, ANEU, CMP, GFR, CBC #### [address] [address] Monocyte, Absolute 0.6 10 3/mcL Normal 0.1-1.4 [facility] Comment on above: Performed By: #### A DIFF, ANEU, CMP, GFR, CBC #### [address] [address] Monocytes/100 WBC (Bld) 17.0 % High 2.0-13.0 [facility] Comment on above: Performed By: #### A DIFF, ANEU, CMP, GFR, CBC #### [address] [address] Neutrophils/100 WBC (Bld) 67.0 % Normal 50.0-75.0 [facility] Comment on above: Performed By: #### A DIFF, ANEU, CMP, GFR, CBC #### [address] [address] .NEUABSon 10-23-2024 Neutrophil, Absolute 2.5 10 3/mcL Normal 2.3-8.1 [facility] Comment on above: Performed By: #### A DIFF, ANEU, CMP, GFR, CBC #### [place] [address] CBCon 10-23-2024 Erythrocyte distribution width (RBC) [Ratio] 17.7 % High 11.5-15.5 [facility] Comment on above: Performed By: #### A DIFF, ANEU, CMP, GFR, CBC #### [address] [address] Hematocrit (Bld) [Volume fraction] 29.5 % Low 40.0-52.0 [facility] Comment on above: Performed By: #### A DIFF, ANEU, CMP, GFR, CBC #### [address] [address] Hgb 9.7 G/dL Low 13.0-17.5 [facility] Comment on above: Performed By: #### A DIFF, ANEU, CMP, GFR, CBC #### [place] [address] MCH (RBC) [Entitic mass] 29.8 pg Normal 27.0-33.0 [facility] Comment on above: Performed By: #### A DIFF, ANEU, CMP, GFR, CBC #### [address] [address] MCHC 32.8 G/dL Normal 32.0-36.0 [facility] Comment on above: Performed By: #### A DIFF, ANEU, CMP, GFR, CBC #### [address] [address] MCV (RBC) [Entitic vol] 90.8 fL Normal 81.0-100.0 [facility] Comment on above: Performed By: #### A DIFF, ANEU, CMP, GFR, CBC #### [address] [address] Platelet 166 10 3/mcL Normal 150-450 [facility] Comment on above: Performed By: #### A DIFF, ANEU, CMP, GFR, CBC #### [address] [address] Platelet mean volume (Bld) [Entitic vol] 7.3 fL Normal 6.4-10.5 [facility] Comment on above: Performed By: #### A DIFF, ANEU, CMP, GFR, CBC #### [address] [address] RBC 3.25 10 6/mcL Low 4.50-6.00 [facility] Comment on above: Performed By: #### A DIFF, ANEU, CMP, GFR, CBC #### [address] [address] WBC 3.8 10 3/mcL Low 4.5-10.8 [facility] Comment on above: Performed By: #### A DIFF, ANEU, CMP, GFR, CBC #### [address] [address] LABORATORYOrdered By: SYSTEM SYSTEM on 10-23-2024 Basophils [...] Lyme Total Antibody JODIE Negative Normal Negative [facility] Comment on above: Result Comment: Lyme antibodies not detected. Reflex testing is not indicated. No laboratory evidence of infection with B. burgdorferi (Lyme disease). Negative results may occur in patients recently infected (less than or equal to 14 days) with B. burgdorferi. If recent infection is suspected, repeat testing on a new sample collected in 7 to 14 days is recommended. Performed At: [facility] [id number] Casper Garcia PhD Ph:[phone] Performed By: #### A DIFF, ANEU, CMP, GFR, CBC #### [address] [address] .Auto Diffon 09-17-2024 Basophil, Absolute 0.1 10 3/mcL Normal 0.0-0.2 [facility] Comment on above: Performed By: #### C BC, ADIFF, ANEU #### [address] [address] Basophils/100 WBC (Bld) 1.9 % Normal 0.0-2.5 [facility] Comment on above: Performed By: #### C BC, ADIFF, ANEU #### [address] [address] Eosinophil, Absolute 0.3 10 3/mcL Normal 0.0-0.7 [facility] Comment on above: Performed By: #### C BC, ADIFF, ANEU #### [address] [address] Eosinophils/100 WBC (Bld) 8.9 % High 0.0-7.0 [facility] Comment on above: Performed By: #### C BC, ADIFF, ANEU #### [address] [address] Lymphocyte, Absolute 0.4 10 3/mcL Low 0.9-4.3 [facility] Comment on above: Performed By: #### C BC, ADIFF, ANEU #### [address] [address] Lymphocytes/100 WBC (Bld) 11.9 % Low 20.0-40.0 [facility] Comment on above: Performed By: #### C BC, ADIFF, ANEU #### [address] [address] Monocyte, Absolute 0.3 10 3/mcL Normal 0.1-1.4 [facility] Comment on above: Performed By: #### C EZRA BACON, ANEU #### [address] [address] Monocytes/100 WBC (Bld) 11.0 % Normal 2.0-13.0 [facility] Comment on above: Performed By: #### C EZRA BACON, ANEU #### [address] [address] Neutrophils/100 WBC (Bld) 66.3 % Normal 50.0-75.0 [facility] Comment on above: Performed By: #### C EZRA BACON, ANEU #### [address] [address] .NEUABSon 09-17-2024 Neutrophil, Absolute 2.0 10 3/mcL Low 2.3-8.1 [facility] Comment on above: Performed By: #### C EZRA BACON, ANEU #### [place] [address] CBCon 09-17-2024 Erythrocyte distribution width (RBC) [Ratio] 17.5 % High 11.5-15.5 [facility] Comment on above: Performed By: #### C EZRA BACON, ANEU #### [address] [address] Hematocrit (Bld) [Volume fraction] 30.8 % Low 40.0-52.0 [facility] Comment on above: Performed By: #### C EZRA BACON, ANEU #### [place] [address] Hgb 10.2 G/dL Low 13.0-17.5 [facility] Comment on above: Performed By: #### C EZRA BACON, ANEU #### [place] [address] MCH (RBC) [Entitic mass] 29.8 pg Normal 27.0-33.0 [facility] Comment on above: Performed By: #### C EZRA BACON ANEU #### [address] [address] MCHC 33.2 G/dL Normal 32.0-36.0 [facility] Comment on above: Performed By: #### C EZRA BACON, ANEU #### [address] [address] MCV (RBC) [Entitic vol] 89.7 fL Normal 81.0-100.0 [facility] Comment on above: Performed By: #### C EZRA BACON ANEU #### [address] [address] Platelet 165 10 3/mcL Normal 150-450 [facility] Comment on above: Performed By: #### C EZRA BACON ANEU #### [address] [address] Platelet mean volume (Bld) [Entitic vol] 7.6 fL Normal 6.4-10.5 [facility] Comment on above: Performed By: #### C EZRA BACON ANEU #### [address] [address] RBC 3.44 10 6/mcL Low 4.50-6.00 [facility] Comment on above: Performed By: #### C EZRA BACON, ANEU #### [address] [address] WBC 3.1 10 3/mcL Low 4.5-10.8 [facility] Comment on above: Performed By: #### C EZRA BACON ANEU #### [address] [address] CRPon 09-17-2024 C-Reactive Protein 0.6 mg/dL High 0.0-0.3 [facility] Comment on above: Performed By: #### A DIFF, ANEU, CMP, GFR, CBC #### [address], [place] [address] ESRon 09-17-2024 Erythrocyte Sed Rate 24 mm/hr High 0-20 [facility] Comment on above: Performed By: #### A DIFF, ANEU, CMP, GFR, CBC #### [place] [address] [place], [place] [address] LABORATORYOrdered By: SYSTEM SYSTEM on 09-17-2024 Basophils [...] Routine cultures are held for 5 days. [facility] Work Phone: A1Con 09-08-2024 Glucose [Mass/Vol] 157 mg/dL Normal [facility] Comment on above: Result Comment: Liliane mated Average Glucose calculated by equation ((28.7xA1C)-46.7) Estimated average glucose (eAG) is a calculated value from Hemoglobin A1C and is sales representative malt liquors of the average blood glucose level in the last 2-3 month period. Normal range: less than 114 mg/dL Performed By: #### L IPID, A1C ####[address] [address] HbA1c (Bld) [Mass fraction] 7.1 % High 4.0-6.0 [facility] Comment on above: Performed By: #### L IPID, A1C ####[address] [address] [address] HEAD OR BRAIN W/O CONTRAS Ton [...] 09/08/2024 8:58:52 PM Ordering Provider: JORDI MOODY [facility] MAIN LABORATORYOrdered By: La bunn on 09-08-2024 [...] calculated value from Hemoglobin A1C and is sales representative [employer] liquors of the average blood glucose level in the last 2-3 month period. Normal range: less than 114 mg/dL HbA1c (Bld) [Mass fraction] 7.1 % High 4.0 - 6.0 % Auto Chem SS LIPIDon 09-08-2024 Cholesterol [Mass/Vol] 255 mg/dL High 50-199 [facility] Comment on above: Result Comment: Chol esterol Reference Interval: Less than 200 Desirable 200-239 Borderline high risk 240 and above High risk Performed By: #### L IPID, A1C ####[place] [address] [place] [address] Cholesterol in HDL [Mass/Vol] 35 mg/dL Low 40-59 [facility] Comment on above: Performed By: #### L IPID, A1C ####[address] [address] Cholesterol in LDL [Mass/Vol] 179 mg/dL High 0-129 [facility] Comment on above: Performed By: #### L IPID, A1C ####[address] [address] Triglyceride [Mass/Vol] 204 mg/dL High 3-149 [facility] Comment on above: Performed By: #### L IPID, A1C ####[address] [address] MRI BRAIN W/O CONTRASTon MRI BRAIN W/O [...] 09/08/2024 9:07:08 PM Ordering Provider: JORDI MOODY [facility] MAIN XR FOREIGN BODY LOC EYE BILA [...] 09/08/2024 6:31:11 PM Ordering Provider: JORDI MOODY [facility] MA[facility] .Auto Diffon 09-07-2024 Basophil, Absolute 0.0 10 3/mcL Normal 0.0-0.[address] [facility] Comment on above: Performed By: #### C MP, MDW, ANEU, ADIFF, GFR, TROPHS, APTT, PRO, CBC #### [facility] [address] [place] [address] Basophils/100 WBC (Bld) 1.8 % Normal 0.0-2.5 [facility] Comment on above: Performed By: #### C LUBNA, W, ANEU, ADIFF, GFR, TROPHS, APTT, PRO, CBC #### [address] [address] Eosinophil, Absolute 0.3 10 3/mcL Normal 0.0-0.7 [facility] Comment on above: Performed By: #### C LUBNA, W, ANEU, ADIFF, GFR, TROPHS, APTT, PRO, CBC #### [address] [address] Eosinophils/100 WBC (Bld) 9.6 % High 0.0-6.0 [facility] Comment on above: Performed By: #### C LUBNA, MDW, ANEU, ADIFF, GFR, TROPHS, APTT, PRO, CBC #### [address] [address] Lymphocyte, Absolute 0.4 10 3/mcL Low 0.9-4.3 [facility] Comment on above: Performed By: #### C LUBNA, MDW, ANEU, ADIFF, GFR, TROPHS, APTT, PRO, CBC #### [address] [address] Lymphocytes/100 WBC (Bld) 14.3 % Low 20.0-40.0 [facility] Comment on above: Performed By: #### C LUBNA, W, ANEU, ADIFF, GFR, TROPHS, APTT, PRO, CBC #### [address] [address] Monocyte, Absolute 0.4 10 3/mcL Normal 0.1-1.[address] [facility] Comment on above: Performed By: #### C LUBNA, W, ANEU, ADIFF, GFR, TROPHS, APTT, PRO, CBC #### [address] [address] Monocytes/100 WBC (Bld) 14.7 % High 2.0-13.0 [facility] Comment on above: Performed By: #### C LUBNA, W, ANEU, ADIFF, GFR, TROPHS, APTT, PRO, CBC #### [place] [address] [place] [address] Neutrophils/100 WBC (Bld) 59.6 % Normal 50.0-75.0 [facility] Comment on above: Performed By: #### C ERICK CALVO, ANEU, ADIFF, GFR, TROPHS, APTT, PRO, CBC #### [place] [address] [place] [address] .GFRon 09-07-2024 GFR Non- 52 ml/min/1.73sqm [facility] Comment on above: Result Comment: GFR [...] GFR, TROPHS, APTT, PRO, CBC ####[facility] [place] [address] GFR >[address] [facility] Comment on above: Result Comment: [...] ANEU, ADIFF, GFR, TROPHS, APTT, PRO, CBC ####[place] [address] .MDWon 09-07-2024 Monocyte Distribution Width 18.78 Normal 0.00-20.00 [facility] Comment on above: Result Comment: For ED adult patients suspected of sepsis, MDW<=20.0 does not rule out sepsis or risk of sepsis Performed By: #### C ERICK CALVO, ANEU, ADIFF, GFR, TROPHS, APTT, PRO, CBC #### [place] [address] .NEUABSon 09-07-2024 Neutrophil, Absolute 1.6 10 3/mcL Low 2.3-8.1 [facility] Comment on above: Performed By: #### C ERICK CALVO, ANEU, ADIFF, GFR, TROPHS, APTT, PRO, CBC #### [place] [address] APTTon 09-07-2024 aPTT Coag (Bld) [Time] 31.6 s Normal 25.0-35.0 [facility] Comment on above: Result Comment: For Heparin anticoagulation therapy, the recommended therapeutic range is: 54-77 seconds (APTT Correlation with Anti-Xa therapeutic range of 0.3-0.7 units/ml). PLEASE REFERENCE THE PHARMACY PROTOCOL FOR DOSING. Performed By: #### C ERICK CALVO, LIANG, ADIFF, GFR, TROPHS, APTT, PRO, CBC ####[place] [address] CBCon 09-07-2024 Erythrocyte distribution width (RBC) [Ratio] 17.4 % High 11.5-15.5 [facility] Comment on above: Performed By: #### C ERICK CALVO, ANEU, ADIFF, GFR, TROPHS, APTT, PRO, CBC #### [place] [address] Hematocrit (Bld) [Volume fraction] 28.7 % Low 40.0-52.0 [facility] Comment on above: Performed By: #### C ERICK CALVO, ANEU, ADIFF, GFR, TROPHS, APTT, PRO, CBC #### [place] [address] Hgb 9.5 G/dL Low 13.0-17.5 [facility] Comment on above: Performed By: #### C REICK CALVO, ANEU, ADIFF, GFR, TROPHS, APTT, PRO, CBC #### [place] [id number] MCH (RBC) [Entitic mass] 30.1 pg Normal 27.0-33.0 [facility] Comment on above: Performed By: #### C ERICK CALVO, ANEU, ADIFF, GFR, TROPHS, APTT, PRO, CBC #### [place] [address] MCHC 33.2 G/dL Normal 32.0-36.0 [facility] Comment on above: Performed By: #### C ERICK CALVO, ANEU, ADIFF, GFR, TROPHS, APTT, PRO, CBC #### [place] [address] MCV (RBC) [Entitic vol] 90.7 fL Normal 81.0-100.0 [facility] Comment on above: Performed By: #### C ERICK CALVO, ANEU, ADIFF, GFR, TROPHS, APTT, PRO, CBC #### [place] [address] Platelet 147 10 3/mcL Low 150-450 [facility] Comment on above: Performed By: #### C ERICK CALVO, ANEU, ADIFF, GFR, TROPHS, APTT, PRO, CBC #### [place] [address] Platelet mean volume (Bld) [Entitic vol] 7.4 fL Normal 6.4-10.5 [facility] Comment on above: Performed By: #### C ERICK CALVO, ANEU, ADIFF, GFR, TROPHS, APTT, PRO, CBC #### [place] [address] RBC 3.16 10 6/mcL Low 4.50-6.00 [facility] Comment on above: Performed By: #### C ERICK CALVO, ANEU, ADIFF, GFR, TROPHS, APTT, PRO, CBC #### [place] [id number] WBC 2.7 10 3/mcL Low 4.5-10.8 [facility] Comment on above: Performed By: #### C ERICK CALVO, ANEU, ADIFF, GFR, TROPHS, APTT, PRO, CBC #### [address] [address] CMPon 09-07-2024 Albumin Level 3.5 G/dL Normal 3.2-4.8 [facility] Comment on above: Performed By: #### C ERICK CALVO, ANEU, ADIFF, GFR, TROPHS, APTT, PRO, CBC ####[place] [address] Albumin/Globulin [Mass ratio] 1.0 {ratio} Normal 0.9-1.6 [facility] Comment on above: Performed By: #### C ERICK CALVO, ANEU, ADIFF, GFR, TROPHS, APTT, PRO, CBC ####[address] [address] ALP [Catalytic activity/Vol] 61 U/L Normal 38-126 [facility] Comment on above: Performed By: #### C ERICK CALVO, ANEU, ADIFF, GFR, TROPHS, APTT, PRO, CBC ####[address] [address] ALT [Catalytic activity/Vol] 18 U/L Normal 12-55 [facility] Comment on above: Performed By: #### C ERICK CALVO, ANEU, ADIFF, GFR, TROPHS, APTT, PRO, CBC ####[address] [address] AST [Catalytic activity/Vol] 29 U/L Normal 8-34 [facility] Comment on above: Performed By: #### C ERICK CALVO, ANEU, ADIFF, GFR, TROPHS, APTT, PRO, CBC ####[address] [address] Bili Total 0.40 mg/dL Normal 0.20-1.20 [facility] Comment on above: Result Comment: Use of this assay is not recommended for patients undergoing treatment with eltrombopag due to the potential for falsely elevated results. Performed By: #### C ERICK CALVO, ANEU, ADIFF, GFR, TROPHS, APTT, PRO, CBC ####[place] [address] BUN/Creatinine Ratio 20.6 ratio Normal 10.0-22.[address] [facility] Comment on above: Performed By: #### C ERICK CALVO, ANEU, ADIFF, GFR, TROPHS, APTT, PRO, CBC ####[place] [address] Calcium [Mass/Vol] 9.6 mg/dL Normal 8.7-10.4 [facility] Comment on above: Performed By: #### C ERICK CALVO, ANEU, ADIFF, GFR, TROPHS, APTT, PRO, CBC ####[place] [address] Chloride [Moles/Vol] 108 mmol/L Normal 98-[address] [facility] Comment on above: Performed By: #### C ERICK CALVO, ANEU, ADIFF, GFR, TROPHS, APTT, PRO, CBC ####[place] [id number] CO2 [Moles/Vol] 26 mmol/L Normal 22-32 [facility] Comment on above: Performed By: #### C ERICK CALVO, ANEU, ADIFF, GFR, TROPHS, APTT, PRO, CBC ####[place] [address] Creatinine [Mass/Vol] 1.31 mg/dL Normal 0.60-1.40 [facility] Comment on above: Result Comment: Test ing performed on [employer] analyzer using enzymatic creatinine methodology. Performed By: #### C ERICK CALVO, ANEU, ADIFF, GFR, TROPHS, APTT, PRO, CBC ####[place] [address] Electrolyte Balance 6.0 mEq/L Normal 4.0-15.0 [facility] Comment on above: Performed By: #### C ERICK CALVO, ANEU, ADIFF, GFR, TROPHS, APTT, PRO, CBC ####[address] [address] Globulin 3.5 G/dL Normal 1.5-3.8 [facility] Comment on above: Performed By: #### C ERICK CALVO, ANEU, ADIFF, GFR, TROPHS, APTT, PRO, CBC ####[address] [address] Glucose [Mass/Vol] 99 mg/dL Normal 82-115 [facility] Comment on above: Performed By: #### C ERICK CALVO, ANEU, ADIFF, GFR, TROPHS, APTT, PRO, CBC ####[address] [address] Potassium [Moles/Vol] 4.1 mmol/L Normal 3.5-5.0 [facility] Comment on above: Performed By: #### C ERICK CALVO, ANEU, ADIFF, GFR, TROPHS, APTT, PRO, CBC ####[address] [address] Sodium [Moles/Vol] 140 mmol/L Normal 136-145 [facility] Comment on above: Performed By: #### C ERICK CALVO, ANEU, ADIFF, GFR, TROPHS, APTT, PRO, CBC ####[address] [address] Total Protein 7.0 G/dL Normal 5.7-8.2 [facility] Comment on above: Performed By: #### C ERICK CALVO, ANEU, ADIFF, GFR, TROPHS, APTT, PRO, CBC ####[address] [address] Urea nitrogen [Mass/Vol] 27.0 mg/dL High 8.0-22.0 [facility] Comment on above: Performed By: #### C ERICK CALVO, ANEU, ADIFF, GFR, TROPHS, APTT, PRO, CBC ####[address] [place] [address] CT HEAD OR BRAIN W/O CONTRAS Ton [...] 09/07/2024 8:25:53 AM Ordering Provider: LUCY Hackett [facility] LABORATORYOrdered By: [place] on 09-07-2024 [...] ng/L Male: 0-54 ng/L Testing performed on [employer] IM analyzer using direct chemiluminescent technology. Albumin [...] above: Interpretive Data: T esting performed on [employer] analyzer using enzymatic creatinine methodology. Electrolyte Balance [...] s Normal 9.0 - 1 4.4 seconds [facility] Comment on above: Interpretive Data: E ffective 03/19/08, Protime results may be affected by some antibiotics (i.e. Ciprofloxacin, Azithromycin, Bactrim) which may potentiate the action of oral anticoagulants, with further increases in Protime/INR. PT International Ratio 1.2 ratio Invalid Interpretation Code [facility] Comment on above: Interpretive Data: Darren gu [employer] (CHEST, 1992, 102:312S-25S) [...] ng/L Male: 0-54 ng/L Testing performed on [employer] IM analyzer using direct chemiluminescent technology. Urea nitrogen [Mass/Vol] 27.0 mg/dL High 8.0 - 22.0 mg/dL ADM SS Urea nitrogen/Creatinine [Mass ratio] 20.6 ratio Normal 10.0 - 22.0 ratio ADM SS WBC (Bld) [#/Vol] 2.7 103/mcL Low 4.5 - 10.8 10^3/mcL AH Workflow SS PROon 09-07-2024 INR Coag (PPP) [Relative time] 1.2 {INR} Normal [facility] Comment on above: Result Comment: [employer] (CHEST, 1992, 102:312S-25S) recommended therapeutic range for oral anticoagulant therapy is: LOW RISK: Prophylaxis of venous thrombosis INR: 2.0-3.0 Treatment of pulmonary embolism 2.0-3.0 Prevention of systemic embolism 2.0-3.0 HIGH RISK: Mechanical prosthetic valves 2.5-3.5 Performed By: #### C ERICK CALVO, ANEU, ADIFF, GFR, TROPHS, APTT, PRO, CBC ####[address] [address] PT Coag (PPP) [Time] 13.7 s Normal 9.0-14.[address] [facility] Comment on above: Result Comment: Effe ctive 03/19/08, Protime results may be affected by some antibiotics (i.e. Ciprofloxacin, Azithromycin, Bactrim) which may potentiate the action of oral anticoagulants, with further increases in Protime/INR. Performed By: #### C ERICK CALVO, ANEU, ADIFF, GFR, TROPHS, APTT, PRO, CBC ####[address] [address] TROPHSon 09-07-2024 High Sensitivity Troponin I 11 ng/L Normal 0-54 [facility] Comment on above: Result Comment: High Sensitive Troponin I Reference Ranges: Female: 0-34 ng/L Male: 0-54 ng/L Testing performed on [employer] IM analyzer using direct chemiluminescent technology. Performed By: #### T JANNY ####[address] [address] High Sensitivity Troponin I 11 ng/L Normal 0-54 [facility] Comment on above: Result Comment: High Sensitive Troponin I Reference Ranges: Female: 0-34 ng/L Male: 0-54 ng/L Testing performed on [employer] analyzer using direct chemiluminescent technology. Performed By: #### C MP, MDW, ANEU, ADIFF, GFR, TROPHS, APTT, PRO, CBC #### [place] [address] UAon 09-07-2024 Color (U) Yellow Normal [facility] Comment on above: Performed By: #### U A ####[place] [address] Glucose (U) [Mass/Vol] mg/dL Abnormal Negative [facility] Comment on above: Performed By: #### U A ####[place] [address] Ketones Ql (U) Negative Normal Neg-Trace [facility] Comment on above: Performed By: #### U A ####[place] [address] UA Appear Clear Normal Clear [facility] Comment on above: Performed By: #### U A ####[place] [address] UA Blood Negative Normal Neg-Trace [facility] Comment on above: Performed By: #### U A ####[place] [address] UA Leuk Est Negative Normal Negative [facility] Comment on above: Performed By: #### U A ####[place] [address] UA Nitrite Negative Normal Negative [facility] Comment on above: Performed By: #### U A ####[place] [address] UA pH 6.0 Normal 5.0 - 8.0 [facility] Comment on above: Performed By: #### U A ####[place] [address] UA Protein Negative Normal Negative [facility] Comment on above: Performed By: #### U A ####[facility] [place] [address] UA Spec Grav 1.015 Normal 1.006-1.029 [facility] Comment on above: Performed By: #### U A ####[facility] [place] [address] UA Specimen Type Clean Catch Normal [facility] Comment on above: Performed By: #### U A ####[facility] [place] [address] UA Urobilinogen 0.2 E.U./dL Normal 0.2-1.0 [facility] Comment on above: Performed By: #### U A ####[place] [address] Urobilinogen (U) [Mass/Vol] Negative Normal Neg-Trace [facility] Comment on above: Performed By: #### U A ####[place] [address] XR CHEST 1 VIEWon 09-07-2024 XR CHEST [...] 09/07/2024 7:29:17 AM Ordering Provider: LUCY WALLER [facility] MAIN Brain W/WO Contraston 2023 Brain W/WO Contrast [facility] Imaging Services [address] [place] [id number] Brain W/WO Contrast MR#: [id number] Acct: [id number] Name: JAYLEN GALAVIZ Rep #: [id number] : 1935 M 89 From: David Hernandez MD PCP: Dr. Jaki Fleming, Status: REG CLI Study: Brain W/WO Contrast Date of Exam: 08/21/24 Exam# [id number] Ordering Dr: Ezekiel Mcdowell MD [id number] EXAM: MR HEAD WITHOUT AND WITH INTRAVENOUS [...] Ezekiel Mcdowell MD; Dr. Jaki Fleming DO Caterer Helper: Signed Normal [facility] CREATININE FINGERSTICKon CREATININE WB < 1.0 Normal 0.70-1.30 [facility] Comment on above: Performed By: #### L 9100.0200 #### [facility] [address] [place], [address] EGFR WB > 60.0000 Normal >60 [facility] Comment on above: Performed By: #### L 9100.0200 #### [facility] [address] [place], [address] .Auto Diffon 08-01-2024 Basophil, Absolute 0.1 10 3/mcL Normal 0.0-0.2 [facility] Comment on above: Performed By: #### A DIFF, ANEU, CMP, GFR, CBC #### [address] [address] Basophils/100 WBC (Bld) 1.7 % Normal 0.0-2.5 [facility] Comment on above: Performed By: #### A DIFF, ANEU, CMP, GFR, CBC #### [address] [address] Eosinophil, Absolute 0.2 10 3/mcL Normal 0.0-0.7 [facility] Comment on above: Performed By: #### A DIFF, ANEU, CMP, GFR, CBC #### [address] [address] Eosinophils/100 WBC (Bld) 7.2 % High 0.0-7.0 [facility] Comment on above: Performed By: #### A DIFF, ANEU, CMP, GFR, CBC #### [address] [address] Lymphocyte, Absolute 0.4 10 3/mcL Low 0.9-4.3 [facility] Comment on above: Performed By: #### A DIFF, ANEU, CMP, GFR, CBC #### [address] [address] Lymphocytes/100 WBC (Bld) 13.3 % Low 20.0-40.0 [facility] Comment on above: Performed By: #### A DIFF, ANEU, CMP, GFR, CBC #### [address] [address] Monocyte, Absolute 0.6 10 3/mcL Normal 0.1-1.4 [facility] Comment on above: Performed By: #### A DIFF, ANEU, CMP, GFR, CBC #### [address] [address] Monocytes/100 WBC (Bld) 17.4 % High 2.0-13.0 [facility] Comment on above: Performed By: #### A DIFF, ANEU, CMP, GFR, CBC #### [address] [address] Neutrophils/100 WBC (Bld) 60.4 % Normal 50.0-75.0 [facility] Comment on above: Performed By: #### A DIFF, ANEU, CMP, GFR, CBC #### [address] [address] .GFRon 08-01-2024 GFR 64 ml/min/1.73sqm Normal [facility] Comment on above: Result Comment: GFR Population [...] A DIFF, ANEU, CMP, GFR, CBC #### [address] [address] GFR Non- 53 ml/min/1.73sqm Normal [facility] Comment on above: Result Comment: GFR Population [...] A DIFF, ANEU, CMP, GFR, CBC #### [place] [address] .NEUABSon 08-01-2024 Neutrophil, Absolute 1.9 10 3/mcL Low 2.3-8.1 [facility] Comment on above: Performed By: #### A DIFF, ANEU, CMP, GFR, CBC #### [place] [address] CBCon 08-01-2024 Erythrocyte distribution width (RBC) [Ratio] 16.6 % High 11.5-15.5 [facility] Comment on above: Performed By: #### A DIFF, ANEU, CMP, GFR, CBC #### [place] [address] Hematocrit (Bld) [Volume fraction] 28.6 % Low 40.0-52.0 [facility] Comment on above: Performed By: #### A DIFF, ANEU, CMP, GFR, CBC #### [place] [address] Hgb 9.4 G/dL Low 13.0-17.5 [facility] Comment on above: Performed By: #### A DIFF, ANEU, CMP, GFR, CBC #### [place] [address] MCH (RBC) [Entitic mass] 30.3 pg Normal 27.0-33.0 [facility] Comment on above: Performed By: #### A DIFF, ANEU, CMP, GFR, CBC #### [address] [address] MCHC 33.0 G/dL Normal 32.0-36.0 [facility] Comment on above: Performed By: #### A DIFF, ANEU, CMP, GFR, CBC #### [address] [address] MCV (RBC) [Entitic vol] 91.9 fL Normal 81.0-100.0 [facility] Comment on above: Performed By: #### A DIFF, ANEU, CMP, GFR, CBC #### [address] [address] Platelet 159 10 3/mcL Normal 150-450 [facility] Comment on above: Performed By: #### A DIFF, ANEU, CMP, GFR, CBC #### [address] [address] Platelet mean volume (Bld) [Entitic vol] 7.6 fL Normal 6.4-10.5 [facility] Comment on above: Performed By: #### A DIFF, ANEU, CMP, GFR, CBC #### [address] [address] RBC 3.11 10 6/mcL Low 4.50-6.00 [facility] Comment on above: Performed By: #### A DIFF, ANEU, CMP, GFR, CBC #### [address] [address] WBC 3.2 10 3/mcL Low 4.5-10.8 [facility] Comment on above: Performed By: #### A DIFF, ANEU, CMP, GFR, CBC #### [address] [address] CMPon 08-01-2024 Albumin Level 3.5 G/dL Normal 3.4-4.8 [facility] Comment on above: Performed By: #### A DIFF, ANEU, CMP, GFR, CBC #### [address] [address] Albumin/Globulin [Mass ratio] 1.1 {ratio} Normal 1.1-2.5 [facility] Comment on above: Performed By: #### A DIFF, ANEU, CMP, GFR, CBC #### [address] [address] ALP [Catalytic activity/Vol] 72 U/L Normal 40-135 [facility] Comment on above: Performed By: #### A DIFF, ANEU, CMP, GFR, CBC #### [address] [address] ALT [Catalytic activity/Vol] 21 U/L Normal 16-63 [facility] Comment on above: Performed By: #### A DIFF, ANEU, CMP, GFR, CBC #### [address] [address] AST [Catalytic activity/Vol] 27 U/L Normal 10-40 [facility] Comment on above: Performed By: #### A DIFF, ANEU, CMP, GFR, CBC #### [address] [address] Bili Total 0.3 mg/dL Normal 0.2-1.0 [facility] Comment on above: Result Comment: Use of this assay is not recommended for patients undergoing treatment with eltrombopag due to the potential for falsely elevated results. Performed By: #### A DIFF, ANEU, CMP, GFR, CBC #### [address] [address] BUN/Creatinine Ratio 20 ratio Normal 7-27 [facility] Comment on above: Performed By: #### A DIFF, ANEU, CMP, GFR, CBC #### [address] [address] Calcium [Mass/Vol] 9.0 mg/dL Normal 8.4-10.2 [facility] Comment on above: Performed By: #### A DIFF, ANEU, CMP, GFR, CBC #### [address] [address] Chloride [Moles/Vol] 99 mmol/L Normal 98-107 [facility] Comment on above: Performed By: #### A DIFF, ANEU, CMP, GFR, CBC #### [place] [address] CO2 [Moles/Vol] 27 mmol/L Normal 23-31 [facility] Comment on above: Performed By: #### A DIFF, ANEU, CMP, GFR, CBC #### [place] [address] Creatinine [Mass/Vol] 1.29 mg/dL Normal 0.70-1.30 [facility] Comment on above: Result Comment: Test ing performed on [employer] Dimension EXL analyzer using a modified kinetic Derrell technique. Performed By: #### A DIFF, ANEU, CMP, GFR, CBC #### [place] [address] Electrolyte Balance 9.0 mEq/L Normal 4.0-15.0 [facility] Comment on above: Performed By: #### A DIFF, ANEU, CMP, GFR, CBC #### [place] [address] Globulin 3.2 G/dL Normal [facility] Comment on above: Performed By: #### A DIFF, ANEU, CMP, GFR, CBC #### [place] [address] Glucose [Mass/Vol] 150 mg/dL High 83-110 [facility] Comment on above: Performed By: #### A DIFF, ANEU, CMP, GFR, CBC #### [place] [address] Potassium [Moles/Vol] 4.5 mmol/L Normal 3.5-5.1 [facility] Comment on above: Performed By: #### A DIFF, ANEU, CMP, GFR, CBC #### [place] [address] Sodium [Moles/Vol] 135 mmol/L Low 136-145 [facility] Comment on above: Performed By: #### A DIFF, ANEU, CMP, GFR, CBC #### [place] [address] Total Protein 6.7 G/dL Normal 6.4-8.2 [facility] Comment on above: Performed By: #### A DIFF, ANEU, CMP, GFR, CBC #### [place] [address] [place], [place] [address] Urea nitrogen [Mass/Vol] 26 mg/dL High 7-18 [facility] Comment on above: Performed By: #### A DIFF, ANEU, CMP, GFR, CBC #### [place] [address] [place], [place] [address] LABORATORYOrdered By: SYSTEM SYSTEM on 08-01-2024 Albumin [...] Carotid Duplex Ultrasoundon 07-24-2024 Carotid Duplex Ultrasound [facility] [address] [place] [address] Carotid Duplex Ultrasound 07/24/24 1407 MR#: [id number] Acct: [id number] Name: JAYLEN GALAVIZ Rep #: [id number] : 1935 89 From: Mariel Garza MD Attending Dr: Dr. Ezekiel Mcdowell MD Status: R EG CLI Ordering Dr: Ezekiel Mcdowell MD Date: 07/24/24 Location: [facility] Sex: M C Admitted: Reason For Study: [...] the left vertebral artery. Procedure Carotid Duplex 56498. This is a Carotid Duplex examination using [...] Date Dictated: 07/24/24 1407 Date Transcribed: 07/24/241834 Caterer Helper: Signed Lew [facility] LABORATORYOrdered By: SYSTEM SYSTEM on 07-11-2024 Albumin [...] calculated value from Hemoglobin A1C and is sales representative malt liquors of the average blood glucose level in [...] or higher Very high risk LABORATORYOrdered By: [facility] SYSTEM on 05-11-2024 Albumin BCP dye [Mass/Vol] [...] above: Interpretive Data: T esting performed on [employer] analyzer using enzymatic creatinine methodology. Electrolyte Balance [...] (S/P/Bld) [Vol rate/Area] ml/min/1.73sqm Invalid Interpretation Code [facility] Comment on above: Interpretive Data: GFR Population [...] [Vol rate/Area] 60 ml/min/1.73sqm Invalid Interpretation Code [facility] Comment on above: Interpretive Data: GFR Population [...] AH Workflow SS CURon 04-23-2024 CUR Normal [facility] ([place]) LABORATORYOrdered By: Brain Baker on 03-01-2024 Albumin DL <= 20 mg/L (U) [Mass/Vol] 3672 mcg/dL Invalid Interpretation Code AO ADM SS Albumin/Creatinine DL <= 20 mg/L (U) [Mass ratio] 46 mcg/mg High 0 - 30 mcg/mg AO ADM SS Creatinine (U) [Mass/Vol] 79.4 mg/dL Normal 39.0 - 259.0 mg/dL AO ADM SS MALBRon 03-01-2024 U Creatinine 79.4 mg/dL Normal 39.0-259.0 [facility] ([place]) Comment on above: Performed By: #### M ALBR ####[address] [place], [place] [address] U Microalb 3672 mcg/dL Normal [facility] ([place]) Comment on above: Performed By: #### M ALBR ####[address] [place], [place] [address] U Ratio Alb/Cre 46 mcg/mg High 0-30 [facility] ([place]) Comment on above: Performed By: #### M ALBR ####[address] [place], [place] [address] .Auto Diffon 02-24-2024 Basophil, Absolute 0.0 10 3/mcL Normal 0.0-0.2 [facility] ([place]) Comment on above: Performed By: #### A 1C, TSH, CBC, GFR, ADIFF, CMP, VIDH, LIPID, ANEU ####[address] [place], [place] [address]#### FOL, B12 ####[address] [address] Basophils/100 WBC (Bld) 1.0 % Normal 0.0-2.5 [facility] ([place]) Comment on above: Performed By: #### A 1C, TSH, CBC, GFR, ADIFF, CMP, VIDH, LIPID, ANEU ####[place] [address]#### FOL, B12 ####[address] [address] Eosinophil, Absolute 0.2 10 3/mcL Normal 0.0-0.4 [facility] ([place]) Comment on above: Performed By: #### A 1C, TSH, CBC, GFR, ADIFF, CMP, VIDH, LIPID, ANEU ####[place] [address]#### FOL, B12 ####[address] [address] Eosinophils/100 WBC (Bld) 7.6 % High 0.0-7.0 [facility] ([place]) Comment on above: Performed By: #### A 1C, TSH, CBC, GFR, ADIFF, CMP, VIDH, LIPID, ANEU ####[place] [address]#### FOL, B12 ####[address] [address] Lymphocyte, Absolute 0.4 10 3/mcL Low 0.8-3.9 [facility] ([place]) Comment on above: Performed By: #### A 1C, TSH, CBC, GFR, ADIFF, CMP, VIDH, LIPID, ANEU ####[place] [address]#### FOL, B12 ####[address] [address] Lymphocytes/100 WBC (Bld) 11.4 % Normal 10.0-50.0 [facility] ([place] Comment on above: Performed By: #### A 1C, TSH, CBC, GFR, ADIFF, CMP, VIDH, LIPID, ANEU ####[place] [address]#### FOL, B12 ####[address] [address] Monocyte, Absolute 0.5 10 3/mcL Normal 0.2-1.0 [facility] ([place]) Comment on above: Performed By: #### A 1C, TSH, CBC, GFR, ADIFF, CMP, VIDH, LIPID, ANEU ####[address] [address]#### FOL, B12 ####[address] [address] Monocytes/100 WBC (Bld) 15.2 % High 1.7-13.0 [facility] ([place] Comment on above: Performed By: #### A 1C, TSH, CBC, GFR, ADIFF, CMP, VIDH, LIPID, ANEU ####[address] [address]#### FOL, B12 ####[address] [address] Neutrophils/100 WBC (Bld) 64.8 % Normal 37.0-80.0 [facility] ([place] Comment on above: Performed By: #### A 1C, TSH, CBC, GFR, ADIFF, CMP, VIDH, LIPID, ANEU ####[address] [address]#### FOL, B12 ####[address] [address] .GFRon 02-24-2024 GFR 56 ml/min/1.73sqm Normal [facility] ([place] Comment on above: Result Comment: GFR Population [...] CBC, GFR, ADIFF, CMP, VIDH, LIPID, ANEU ####[address] [address]#### BRANDIN, B12 ####[place] [address] GFR Non- 46 ml/min/1.73sqm Normal [facility] ([place] Comment on above: Result Comment: GFR Population [...] CBC, GFR, ADIFF, CMP, VIDH, LIPID, ANEU ####[place] [id number]#### BRANDIN, B12 ####[place] [address] .NEUABSon 02-24-2024 Neutrophil, Absolute 2.1 10 3/mcL Low 2.9-6.2 [facility] ([place] Comment on above: Performed By: #### A 1C, TSH, CBC, GFR, ADIFF, CMP, VIDH, LIPID, ANEU ####[place] [id number]#### FOL, B12 ####[place] [address] A1Con 02-24-2024 HbA1c (Bld) [Mass fraction] 6.9 % High 4.3-6.4 [facility] ([place] Comment on above: Performed By: #### A 1C, TSH, CBC, GFR, ADIFF, CMP, VIDH, LIPID, ANEU ####[address] [address]#### FOL, B12 ####[address] [address] B12on 02-24-2024 Cobalamin (Vitamin B12) [Mass/Vol] 388 pg/mL Normal 211-911 [facility] ([place] Comment on above: Performed By: #### A 1C, TSH, CBC, GFR, ADIFF, CMP, VIDH, LIPID, ANEU ####[place] [address]#### FOL, B12 ####[place] [address] CBCon 02-24-2024 Erythrocyte distribution width (RBC) [Ratio] 16.7 % High 11.5-14.5 [facility] ([place] Comment on above: Performed By: #### A 1C, TSH, CBC, GFR, ADIFF, CMP, VIDH, LIPID, ANEU ####[place] [address]#### FOL, B12 ####[place] [address] Hematocrit (Bld) [Volume fraction] 29.4 % Low 42.0-52.0 [facility] ([place] Comment on above: Performed By: #### A 1C, TSH, CBC, GFR, ADIFF, CMP, VIDH, LIPID, ANEU ####[place] [address]#### FOL, B12 ####[place] [address] Hgb 9.9 G/dL Low 14.0-18.0 [facility] ([place] Comment on above: Performed By: #### A 1C, TSH, CBC, GFR, ADIFF, CMP, VIDH, LIPID, ANEU ####[place] [address]#### FOL, B12 ####[place] [id number] MCH (RBC) [Entitic mass] 30.0 pg Normal 27.0-31.2 [facility] ([place] Comment on above: Performed By: #### A 1C, TSH, CBC, GFR, ADIFF, CMP, VIDH, LIPID, ANEU ####[place] [address]#### FOL, B12 ####[place] [address] MCHC 33.5 G/dL Normal 31.8-35.4 [facility] ([place] Comment on above: Performed By: #### A 1C, TSH, CBC, GFR, ADIFF, CMP, VIDH, LIPID, ANEU ####[place] [address]#### FOL, B12 ####[place] [address] MCV (RBC) [Entitic vol] 89.5 fL Normal 80.0-94.0 [facility] ([place] Comment on above: Performed By: #### A 1C, TSH, CBC, GFR, ADIFF, CMP, VIDH, LIPID, ANEU ####[place] [address]#### FOL, B12 ####[place] [address] Platelet 140 10 3/mcL Normal 130-400 [facility] ([place] Comment on above: Performed By: #### A 1C, TSH, CBC, GFR, ADIFF, CMP, VIDH, LIPID, ANEU ####[place] [address]#### FOL, B12 ####[place] [address] Platelet mean volume (Bld) [Entitic vol] 7.6 fL Normal 7.4-10.4 [facility] ([place] Comment on above: Performed By: #### A 1C, TSH, CBC, GFR, ADIFF, CMP, VIDH, LIPID, ANEU ####[place] [address]#### FOL, B12 ####[place] [address] RBC 3.28 10 6/mcL Low 4.04-6.13 [facility] ([place] Comment on above: Performed By: #### A 1C, TSH, CBC, GFR, ADIFF, CMP, VIDH, LIPID, ANEU ####[place] [address]#### FOL, B12 ####[place] [address] WBC 3.3 10 3/mcL Low 4.6-10.8 [facility] ([place] Comment on above: Performed By: #### A 1C, TSH, CBC, GFR, ADIFF, CMP, VIDH, LIPID, ANEU ####[place] [address]#### BRANDIN, B12 ####[place] [address] CMPon 02-24-2024 Albumin Level 3.6 G/dL Normal 3.4-4.8 [facility] ([place] Comment on above: Performed By: #### A 1C, TSH, CBC, GFR, ADIFF, CMP, VIDH, LIPID, ANEU ####[place] [address]#### FOL, B12 ####[place] [address] Albumin/Globulin [Mass ratio] 1.1 {ratio} Normal 1.1-2.5 [facility] ([place] Comment on above: Performed By: #### A 1C, TSH, CBC, GFR, ADIFF, CMP, VIDH, LIPID, ANEU ####[place] [address]#### FOL, B12 ####[place] [address] ALP [Catalytic activity/Vol] 63 U/L Normal 40-135 [facility] ([place] Comment on above: Performed By: #### A 1C, TSH, CBC, GFR, ADIFF, CMP, VIDH, LIPID, ANEU ####[place] [address]#### FOL, B12 ####[address] [address] ALT [Catalytic activity/Vol] 25 U/L Normal 16-63 [facility] ([place] Comment on above: Performed By: #### A 1C, TSH, CBC, GFR, ADIFF, CMP, VIDH, LIPID, ANEU ####[place] [address]#### FOL, B12 ####[address] [address] AST [Catalytic activity/Vol] 25 U/L Normal 10-40 [facility] ([place] Comment on above: Performed By: #### A 1C, TSH, CBC, GFR, ADIFF, CMP, VIDH, LIPID, ANEU ####[place] [address]#### FOL, B12 ####[place] [address] Bili Total 0.4 mg/dL Normal 0.2-1.0 [facility] ([place] Comment on above: Result Comment: Use of this assay is not recommended for patients undergoing treatment with eltrombopag due to the potential for falsely elevated results. Performed By: #### A 1C, TSH, CBC, GFR, ADIFF, CMP, VIDH, LIPID, ANEU ####[place] [address]#### FOL, B12 ####[place] [address] BUN/Creatinine Ratio 23 ratio Normal 7-27 [facility] ([place]) Comment on above: Performed By: #### A 1C, TSH, CBC, GFR, ADIFF, CMP, VIDH, LIPID, ANEU ####[place] [address]#### FOL, B12 ####[place] [address] Calcium [Mass/Vol] 9.1 mg/dL Normal 8.4-10.2 [facility] ([place]) Comment on above: Performed By: #### A 1C, TSH, CBC, GFR, ADIFF, CMP, VIDH, LIPID, ANEU ####[place] [address]#### FOL, B12 ####[address] [address] Chloride [Moles/Vol] 101 mmol/L Normal 98-107 [facility] ([place]) Comment on above: Performed By: #### A 1C, TSH, CBC, GFR, ADIFF, CMP, VIDH, LIPID, ANEU ####[place] [address]#### FOL, B12 ####[address] [address] CO2 [Moles/Vol] 28 mmol/L Normal 23-31 [facility] ([place] Comment on above: Performed By: #### A 1C, TSH, CBC, GFR, ADIFF, CMP, VIDH, LIPID, ANEU ####[place] [address]#### FOL, B12 ####[place] [address] Creatinine [Mass/Vol] 1.45 mg/dL High 0.70-1.30 [facility] ([place]) Comment on above: Performed By: #### A 1C, TSH, CBC, GFR, ADIFF, CMP, VIDH, LIPID, ANEU ####[place] [address]#### FOL, B12 ####[address] [address] Electrolyte Balance 8.0 mEq/L Normal 4.0-15.0 [facility] ([place]) Comment on above: Performed By: #### A 1C, TSH, CBC, GFR, ADIFF, CMP, VIDH, LIPID, ANEU ####[place] [address]#### FOL, B12 ####[place] [address] Globulin 3.3 G/dL Normal [facility] ([place] Comment on above: Performed By: #### A 1C, TSH, CBC, GFR, ADIFF, CMP, VIDH, LIPID, ANEU ####[address] [address]#### FOL, B12 ####[address] [address] Glucose [Mass/Vol] 145 mg/dL High 83-110 [facility] ([place]) Comment on above: Performed By: #### A 1C, TSH, CBC, GFR, ADIFF, CMP, VIDH, LIPID, ANEU ####[address] [address]#### FOL, B12 ####[address] [address] Potassium [Moles/Vol] 4.6 mmol/L Normal 3.5-5.1 [facility] ([place] Comment on above: Performed By: #### A 1C, TSH, CBC, GFR, ADIFF, CMP, VIDH, LIPID, ANEU ####[address] [address]#### FOL, B12 ####[address] [address] Sodium [Moles/Vol] 137 mmol/L Normal 136-145 [facility] ([place]) Comment on above: Performed By: #### A 1C, TSH, CBC, GFR, ADIFF, CMP, VIDH, LIPID, ANEU ####[place] [address]#### FOL, B12 ####[address] [address] Total Protein 6.9 G/dL Normal 6.4-8.2 [facility] ([place] Comment on above: Performed By: #### A 1C, TSH, CBC, GFR, ADIFF, CMP, VIDH, LIPID, ANEU ####[address] [address]#### FOL, B12 ####[address] [address] Urea nitrogen [Mass/Vol] 33 mg/dL High 7-18 [facility] ([place] Comment on above: Performed By: #### A 1C, TSH, CBC, GFR, ADIFF, CMP, VIDH, LIPID, ANEU ####[id number] [place] [id number]#### FOL, B12 ####[place] [address] FOLon 02-24-2024 Folate 31.39 ng/mL High 5.38-24.00 [facility] ([place] Comment on above: Performed By: #### A 1C, TSH, CBC, GFR, ADIFF, CMP, VIDH, LIPID, ANEU ####[id number] [place] [id number]#### FOL, B12 ####[place] [address] LABORATORYOrdered By: SYSTEM SYSTEM on 02-24-2024 25-hydroxyvitamin [...] Cholesterol [Mass/Vol] 231 mg/dL High 0-200 [facility] ([place]) Comment on above: Result Comment: Chol esterol Reference Interval:Less than 200 [id number] Borderline high [id number] and above High risk Performed By: #### A 1C, TSH, CBC, GFR, ADIFF, CMP, VIDH, LIPID, ANEU ####[place] [address]#### FOL, B12 ####[address] [address] Cholesterol in HDL [Mass/Vol] 49 mg/dL Normal 40-60 [facility] ([place] Comment on above: Performed By: #### A 1C, TSH, CBC, GFR, ADIFF, CMP, VIDH, LIPID, ANEU ####[place] [address]#### FOL, B12 ####[place] [address] Cholesterol in LDL [Mass/Vol] 160 mg/dL High 0-130 [facility] ([place] Comment on above: Performed By: #### A 1C, TSH, CBC, GFR, ADIFF, CMP, VIDH, LIPID, ANEU ####[place] [address]#### FOL, B12 ####[address] [address] Triglyceride [Mass/Vol] 109 mg/dL Normal 0-150 [facility] ([place]) Comment on above: Result Comment: Trig lyceride Reference Interval:Less than 150 [id number] Borderline high [id number] High [id number] or higher Very high risk Performed By: #### A 1C, TSH, CBC, GFR, ADIFF, CMP, VIDH, LIPID, ANEU ####[place] [address]#### FOL, B12 ####[address] [address] TSHon 02-24-2024 TSH Qn 1.49 m[IU]/L Normal 0.36-3.74 [facility] ([place]) Comment on above: Performed By: #### A 1C, TSH, CBC, GFR, ADIFF, CMP, VIDH, LIPID, ANEU ####[place] [address]#### FOL, B12 ####[place] [address] [place] [address] VIDHon 02-24-2024 Vit. D 25-Hydroxy 96.0 ng/mL Normal [facility] ([place]) Comment on above: Result Comment: Inte rpretive Values Based on Total 25(OH) Vitamin D:Deficient <20 ng/mLInsufficient 20 - <30 ng/mLSufficient 30-100 ng/mL Performed By: #### A 1C, TSH, CBC, GFR, ADIFF, CMP, VIDH, LIPID, ANEU ####[address] [place], [place] [address]#### BRANDIN, B12 ####[place] [address] .Auto Diffon 02-13-2024 Basophil, Absolute 0.0 10 3/mcL Normal 0.0-0.2 [facility] ([place]) Comment on above: Performed By: #### G FR, CMP, CBC, ADIFF, ANEU ####[id number] [place], [place] [address] Basophils/100 WBC (Bld) 1.4 % Normal 0.0-2.5 [facility] ([place]) Comment on above: Performed By: #### G FR, CMP, CBC, ADIFF, ANEU ####[address] [place], [place] [address] Eosinophil, Absolute 0.3 10 3/mcL Normal 0.0-0.4 [facility] ([place]) Comment on above: Performed By: #### G FR, CMP, CBC, ADIFF, ANEU ####[id number] [place], [place] [address] Eosinophils/100 WBC (Bld) 9.1 % High 0.0-7.0 [facility] ([place]) Comment on above: Performed By: #### G FR, CMP, CBC, ADIFF, ANEU ####[id number] [place], [place] [address] Lymphocyte, Absolute 0.4 10 3/mcL Low 0.8-3.9 [facility] ([place]) Comment on above: Performed By: #### G FR, CMP, CBC, ADIFF, ANEU ####Gr[address]eg[address] [place], [place] [address] Lymphocytes/100 WBC (Bld) 10.9 % Normal 10.0-50.0 [facility] ([place]) Comment on above: Performed By: #### G FR, CMP, CBC, ADIFF, ANEU ####[address] [place], [place] [address] Monocyte, Absolute 0.5 10 3/mcL Normal 0.2-1.0 [facility] ([place]) Comment on above: Performed By: #### G FR, CMP, CBC, ADIFF, ANEU ####[address] [place], [place] [address] Monocytes/100 WBC (Bld) 14.1 % High 1.7-13.0 [facility] ([place]) Comment on above: Performed By: #### G FR, CMP, CBC, ADIFF, ANEU ####[address] [place], [place] [address] Neutrophils/100 WBC (Bld) 64.5 % Normal 37.0-80.0 [facility] ([place]) Comment on above: Performed By: #### G FR, CMP, CBC, ADIFF, ANEU ####[address] [place], [place] [address] .GFRon 02-13-2024 GFR 65 ml/min/1.73sqm Normal [facility] ([place]) Comment on above: Result Comment: GFR Population [...] FR, CMP, CBC, ADIFF, ANEU ####[address] [place], [place] [address] GFR Non- 54 ml/min/1.73sqm Normal [facility] ([place]) Comment on above: Result Comment: GFR Population [...] FR, CMP, CBC, ADIFF, ANEU ####[address] [place], [place] [address] .NEUABSon 02-13-2024 Neutrophil, Absolute 2.1 10 3/mcL Low 2.9-6.2 [facility] ([place]) Comment on above: Performed By: #### G FR, CMP, CBC, ADIFF, ANEU ####[address] [place], [place] [address] CBCon 02-13-2024 Erythrocyte distribution width (RBC) [Ratio] 16.7 % High 11.5-14.5 [facility] ([place]) Comment on above: Performed By: #### G FR, CMP, CBC, ADIFF, ANEU ####[address] [place], [place] [address] Hematocrit (Bld) [Volume fraction] 32.1 % Low 42.0-52.0 [facility] ([place]) Comment on above: Performed By: #### G FR, CMP, CBC, ADIFF, ANEU ####[address] [place], [place] [address] Hgb 10.4 G/dL Low 14.0-18.0 [facility] ([place]) Comment on above: Performed By: #### G FR, CMP, CBC, ADIFF, ANEU ####[address] [place], [place] [address] MCH (RBC) [Entitic mass] 29.4 pg Normal 27.0-31.2 [facility] ([place]) Comment on above: Performed By: #### G FR, CMP, CBC, ADIFF, ANEU ####[address] [place], [place] [address] MCHC 32.3 G/dL Normal 31.8-35.4 [facility] ([place] Comment on above: Performed By: #### G FR, CMP, CBC, ADIFF, ANEU ####[address] [place], [place] [address] MCV (RBC) [Entitic vol] 91.0 fL Normal 80.0-94.0 [facility] ([place] Comment on above: Performed By: #### G FR, CMP, CBC, ADIFF, ANEU ####[address] [place], [place] [address] Platelet 164 10 3/mcL Normal 130-400 [facility] ([place]) Comment on above: Performed By: #### G FR, CMP, CBC, ADIFF, ANEU ####[address] [place], [place] [address] Platelet mean volume (Bld) [Entitic vol] 7.5 fL Normal 7.4-10.4 [facility] ([place] Comment on above: Performed By: #### G FR, CMP, CBC, ADIFF, ANEU ####[address] [place], [place] [address] RBC 3.53 10 6/mcL Low 4.04-6.13 [facility] ([place] Comment on above: Performed By: #### G FR, CMP, CBC, ADIFF, ANEU ####[address] [place], [place] [address] WBC 3.3 10 3/mcL Low 4.6-10.8 [facility] ([place] Comment on above: Performed By: #### G FR, CMP, CBC, ADIFF, ANEU ####[address] [place], [place] [address] CMPon 02-13-2024 Albumin Level 3.5 G/dL Normal 3.4-4.8 [facility] ([place] Comment on above: Performed By: #### G FR, CMP, CBC, ADIFF, ANEU ####[address] [place], [place] [address] Albumin/Globulin [Mass ratio] 1.0 {ratio} Low 1.1-2.5 [facility] ([place] Comment on above: Performed By: #### G FR, CMP, CBC, ADIFF, ANEU ####[address] [place], [place] [address] ALP [Catalytic activity/Vol] 77 U/L Normal 40-135 [facility] ([place] Comment on above: Performed By: #### G FR, CMP, CBC, ADIFF, ANEU ####[address] [place], [place] [address] ALT [Catalytic activity/Vol] 30 U/L Normal 16-63 [facility] ([place]) Comment on above: Performed By: #### G FR, CMP, CBC, ADIFF, ANEU ####[address] [place], [place] [address] AST [Catalytic activity/Vol] 25 U/L Normal 10-40 [facility] ([place] Comment on above: Performed By: #### G FR, CMP, CBC, ADIFF, ANEU ####[address] [place], [place] [address] Bili Total 0.2 mg/dL Normal 0.2-1.0 [facility] ([place]) Comment on above: Result Comment: Use of this assay is not recommended for patients undergoing treatment with eltrombopag due to the potential for falsely elevated results. Performed By: #### G FR, CMP, CBC, ADIFF, ANEU ####[address] [place], [place] [address] BUN/Creatinine Ratio 25 ratio Normal 7-27 [facility] ([place]) Comment on above: Performed By: #### G FR, CMP, CBC, ADIFF, ANEU ####[address] [place], [place] [address] Calcium [Mass/Vol] 8.7 mg/dL Normal 8.4-10.2 [facility] ([place]) Comment on above: Performed By: #### G FR, CMP, CBC, ADIFF, ANEU ####[address] [place], [place] [address] Chloride [Moles/Vol] 103 mmol/L Normal 98-107 [facility] ([place]) Comment on above: Performed By: #### G FR, CMP, CBC, ADIFF, ANEU ####[address] [place], [place] [address] CO2 [Moles/Vol] 27 mmol/L Normal 23-31 [facility] ([place] Comment on above: Performed By: #### G FR, CMP, CBC, ADIFF, ANEU ####[address] [place], [place] [address] Creatinine [Mass/Vol] 1.27 mg/dL Normal 0.70-1.30 [facility] ([place]) Comment on above: Performed By: #### G FR, CMP, CBC, ADIFF, ANEU ####[address] [place], [place] [address] Electrolyte Balance 9.0 mEq/L Normal 4.0-15.0 [facility] ([place]) Comment on above: Performed By: #### G FR, CMP, CBC, ADIFF, ANEU ####[address] [place], [place] [address] Globulin 3.5 G/dL Normal [facility] ([place] Comment on above: Performed By: #### G FR, CMP, CBC, ADIFF, ANEU ####[address] [place], [place] [address] Glucose [Mass/Vol] 194 mg/dL High 83-110 [facility] ([place]) Comment on above: Performed By: #### G FR, CMP, CBC, ADIFF, ANEU ####[address] [place], [place] [address] Potassium [Moles/Vol] 4.0 mmol/L Normal 3.5-5.1 [facility] ([place] Comment on above: Performed By: #### G FR, CMP, CBC, ADIFF, ANEU ####[address] [place], [place] [address] Sodium [Moles/Vol] 139 mmol/L Normal 136-145 [facility] ([place]) Comment on above: Performed By: #### Carrie FR, CMP, CBC, ADIFF, ANEU ####[address] [place], [place] [address] Total Protein 7.0 G/dL Normal 6.4-8.2 [facility] ([place] Comment on above: Performed By: #### Carrie FR, CMP, CBC, ADIFF, ANEU ####[address] [place], [place] [address] Urea nitrogen [Mass/Vol] 32 mg/dL High 7-18 [facility] ([place] Comment on above: Performed By: #### Carrie FR, CMP, CBC, ADIFF, ANEU ####[address] [place], [place] [address] LABORATORYOrdered By: SYSTEM SYSTEM on 02-13-2024 Albumin [...] Workflow SS CNOVon 02-11-2024 CNOV Office Visit ([facility] ) -------- JAYLEN GALAVIZ ([id number]) 1935 M Date Time Provider Department 02/11/24 2:05 PM [facility] During your visit today, we recorded the [...] of infection (more content not included)... Normal [facility] NM MYOCARDIAL SPECT STRESS/R ESTon 11-22-2023 NM MYOCARDIAL SPECT STRESS/REST Normal [facility] ([place]) XR ABDOMEN APon 11-18-2023 XR ABDOMEN AP Normal [facility] ([place]) .Auto Diffon 11-17-2023 Basophil, Absolute 0.0 10 3/mcL Normal 0.0-0.2 [facility] ([place]) Comment on above: Performed By: #### G FR, CMP, ANEU, CBC, ADIFF ####[address] [place], [place] [address] Basophils/100 WBC (Bld) 0.9 % Normal 0.0-2.5 [facility] ([place] Comment on above: Performed By: #### G FR, CMP, ANEU, CBC, ADIFF ####[address] [place], [place] [address] Eosinophil, Absolute 0.2 10 3/mcL Normal 0.0-0.4 [facility] ([place]) Comment on above: Performed By: #### G FR, CMP, ANEU, CBC, ADIFF ####[address] [place], [place] [address] Eosinophils/100 WBC (Bld) 7.2 % High 0.0-7.0 [facility] ([place]) Comment on above: Performed By: #### G FR, CMP, ANEU, CBC, ADIFF ####[address] [place], [place] [address] Lymphocyte, Absolute 0.4 10 3/mcL Low 0.8-3.9 [facility] ([place]) Comment on above: Performed By: #### G FR, CMP, ANEU, CBC, ADIFF ####[address] [place], [place] [address] Lymphocytes/100 WBC (Bld) 12.7 % Normal 10.0-50.0 [facility] ([place]) Comment on above: Performed By: #### G FR, CMP, ANEU, CBC, ADIFF ####[address] [place], [place] [address] Monocyte, Absolute 0.3 10 3/mcL Normal 0.2-1.0 [facility] ([place]) Comment on above: Performed By: #### G FR, CMP, ANEU, CBC, ADIFF ####[address] [place], [place] [address] Monocytes/100 WBC (Bld) 10.1 % Normal 1.7-13.0 [facility] ([place]) Comment on above: Performed By: #### G FR, CMP, ANEU, CBC, ADIFF ####[address] [place], [place] [address] Neutrophils/100 WBC (Bld) 69.1 % Normal 37.0-80.0 [facility] ([place]) Comment on above: Performed By: #### G FR, CMP, ANEU, CBC, ADIFF ####[address] [place], [place] [address] .GFRon 11-17-2023 GFR Non- 51 ml/min/1.73sqm Normal [facility] ([place]) Comment on above: Result Comment: GFR Population [...] G FR, CMP, ANEU, CBC, ADIFF ####[address] [place], [place] [address] GFR 62 ml/min/1.73sqm Normal [facility] ([place] Comment on above: Result Comment: GFR Population [...] G FR, CMP, ANEU, CBC, ADIFF ####[address] [place], [place] [address] .NEUABSon 11-17-2023 Neutrophil, Absolute 2.3 10 3/mcL Low 2.9-6.2 [facility] ([place]) Comment on above: Performed By: #### G FR, CMP, ANEU, CBC, ADIFF ####[address] [place], [place] [address] CBCon 11-17-2023 Erythrocyte distribution width (RBC) [Ratio] 16.8 % High 11.5-14.5 [facility] ([place]) Comment on above: Performed By: #### G FR, CMP, ANEU, CBC, ADIFF ####[address] [place], [place] [address] Hematocrit (Bld) [Volume fraction] 28.3 % Low 42.0-52.0 [facility] ([place] Comment on above: Performed By: #### G FR, CMP, ANEU, CBC, ADIFF ####[address] [place], [place] [address] Hgb 9.5 G/dL Low 14.0-18.0 [facility] ([place] Comment on above: Performed By: #### G FR, CMP, ANEU, CBC, ADIFF ####[address] [place], [place] [address] MCH (RBC) [Entitic mass] 30.5 pg Normal 27.0-31.2 [facility] ([place] Comment on above: Performed By: #### G FR, CMP, ANEU, CBC, ADIFF ####[address] [place], [place] [address] MCHC 33.5 G/dL Normal 31.8-35.4 [facility] ([place] Comment on above: Performed By: #### G FR, CMP, ANEU, CBC, ADIFF ####[address] [place], [place] [address] MCV (RBC) [Entitic vol] 90.9 fL Normal 80.0-94.0 [facility] ([place] Comment on above: Performed By: #### G FR, CMP, ANEU, CBC, ADIFF ####[address] [place], [place] [address] Platelet 162 10 3/mcL Normal 130-400 [facility] ([place]) Comment on above: Performed By: #### G FR, CMP, ANEU, CBC, ADIFF ####[address] [place], [place] [address] Platelet mean volume (Bld) [Entitic vol] 7.7 fL Normal 7.4-10.4 [facility] ([place] Comment on above: Performed By: #### G FR, CMP, ANEU, CBC, ADIFF ####[address] [place], [place] [address] RBC 3.12 10 6/mcL Low 4.04-6.13 [facility] ([place] Comment on above: Performed By: #### G FR, CMP, ANEU, CBC, ADIFF ####[address] [place], [place] [address] WBC 3.4 10 3/mcL Low 4.6-10.8 [facility] ([place] Comment on above: Performed By: #### G FR, CMP, ANEU, CBC, ADIFF ####[address] [place], [place] [address] CMPon 11-17-2023 Albumin Level 3.5 G/dL Normal 3.4-4.8 [facility] ([place] Comment on above: Performed By: #### G FR, CMP, ANEU, CBC, ADIFF ####[address] [place], [place] [address] Albumin/Globulin [Mass ratio] 1.1 {ratio} Normal 1.1-2.5 [facility] ([place] Comment on above: Performed By: #### G FR, CMP, ANEU, CBC, ADIFF ####[address] [place], [place] [address] ALP [Catalytic activity/Vol] 78 U/L Normal 40-135 [facility] ([place] Comment on above: Performed By: #### G FR, CMP, ANEU, CBC, ADIFF ####[address] [place], [place] [address] ALT [Catalytic activity/Vol] 30 U/L Normal 16-63 [facility] ([place] Comment on above: Performed By: #### G FR, CMP, ANEU, CBC, ADIFF ####[address] [place], [place] [address] AST [Catalytic activity/Vol] 33 U/L Normal 10-40 [facility] ([place]) Comment on above: Performed By: #### G FR, CMP, ANEU, CBC, ADIFF ####[address] [place], [place] [address] Bili Total 0.3 mg/dL Normal 0.2-1.0 [facility] ([place]) Comment on above: Result Comment: Use of this assay is not recommended for patients undergoing treatment with eltrombopag due to the potential for falsely elevated results. Performed By: #### G FR, CMP, ANEU, CBC, ADIFF ####[address] [place], [place] [address] BUN/Creatinine Ratio 24 ratio Normal 7-27 [facility] ([place]) Comment on above: Performed By: #### G FR, CMP, ANEU, CBC, ADIFF ####[address] [place], [place] [address] Calcium [Mass/Vol] 9.3 mg/dL Normal 8.4-10.2 [facility] ([place]) Comment on above: Performed By: #### Carrie FR, CMP, ANEU, CBC, ADIFF ####[address] [place], [place] [address] Chloride [Moles/Vol] 104 mmol/L Normal 98-107 [facility] ([place]) Comment on above: Performed By: #### G FR, CMP, ANEU, CBC, ADIFF ####[address] [place], [place] [address] CO2 [Moles/Vol] 25 mmol/L Normal 23-31 [facility] ([place]) Comment on above: Performed By: #### G FR, CMP, ANEU, CBC, ADIFF ####[address] [place], [place] [address] Creatinine [Mass/Vol] 1.33 mg/dL High 0.70-1.30 [facility] ([place] Comment on above: Performed By: #### G FR, CMP, ANEU, CBC, ADIFF ####[address] [place], [place] [address] Electrolyte Balance 9.0 mEq/L Normal 4.0-15.0 [facility] ([place]) Comment on above: Performed By: #### G FR, CMP, ANEU, CBC, ADIFF ####[address] [place], [place] [address] Globulin 3.2 G/dL Normal [facility] ([place]) Comment on above: Performed By: #### G FR, CMP, ANEU, CBC, ADIFF ####[address] [place], [place] [address] Glucose [Mass/Vol] 138 mg/dL High 83-110 [facility] ([place]) Comment on above: Performed By: #### G FR, CMP, ANEU, CBC, ADIFF ####[address] [place], [place] [address] Potassium [Moles/Vol] 4.4 mmol/L Normal 3.5-5.1 [facility] ([place] Comment on above: Performed By: #### G FR, CMP, ANEU, CBC, ADIFF ####[address] [place], [place] [address] Sodium [Moles/Vol] 138 mmol/L Normal 136-145 [facility] ([place]) Comment on above: Performed By: #### G FR, CMP, ANEU, CBC, ADIFF ####[address] [place], [place] [address] Total Protein 6.7 G/dL Normal 6.4-8.2 [facility] ([place] Comment on above: Performed By: #### G FR, CMP, ANEU, CBC, ADIFF ####[address] [place], [place] [address] Urea nitrogen [Mass/Vol] 32 mg/dL High 7-18 [facility] ([place] Comment on above: Performed By: #### G FR, CMP, ANEU, CBC, ADIFF ####[address] [place], [place] [address] LABORATORYOrdered By: SYSTEM SYSTEM on 11-17-2023 Albumin [...] Basophil, Absolute 0.0 10 3/mcL Normal 0.0-0.3 [facility] ([place]) Comment on above: Performed By: #### C JORDI, ANEU, ADIFF ####[address] [address] Basophils/100 WBC (Bld) 1.1 % Normal 0.0-2.5 [facility] ([place]) Comment on above: Performed By: #### C JORDI, ANEU, ADIFF ####[place] [address] [place] [address] Eosinophil, Absolute 0.3 10 3/mcL Normal 0.0-0.7 [facility] ([place]) Comment on above: Performed By: #### C LIANG BACON, ADIFF ####[address] [address] Eosinophils/100 WBC (Bld) 8.0 % High 0.0-6.0 [facility] ([place]) Comment on above: Performed By: #### C LIANG BACON, ADIFF ####[address] [address] Lymphocyte, Absolute 0.3 10 3/mcL Low 0.9-4.3 [facility] ([place]) Comment on above: Performed By: #### C LIANG BACON, ADIFF ####[address] [address] Lymphocytes/100 WBC (Bld) 8.1 % Low 20.0-40.0 [facility] ([place]) Comment on above: Performed By: #### C LIANG BACON, ADIFF ####[address] [address] Monocyte, Absolute 0.4 10 3/mcL Normal 0.1-1.4 [facility] ([place]) Comment on above: Performed By: #### C LIANG BACON, ADIFF ####[address] [address] Monocytes/100 WBC (Bld) 13.5 % High 2.0-13.0 [facility] ([place]) Comment on above: Performed By: #### C LIANG BACON, ADIFF ####[address] [address] Neutrophils/100 WBC (Bld) 69.3 % Normal 50.0-75.0 [facility] ([place]) Comment on above: Performed By: #### C JORDI ANEU, ADIFF ####[address] [address] .NEUABSon 11-03-2023 Neutrophil, Absolute 2.2 10 3/mcL Low 2.3-8.1 [facility] ([place]) Comment on above: Performed By: #### C LIANG BACON, ADIFF ####[place] [address] APTTon 11-03-2023 aPTT Coag (Bld) [Time] 30.3 s Normal 25.0-35.0 [facility] ([place]) Comment on above: Result Comment: For Heparin anticoagulation therapy, the recommendedtherapeutic range is: 54-77 seconds (APTT Correlationwith Anti-Xa therapeutic range of 0.3-0.7 units/ml).PLEASE REFERENCE THE PHARMACY PROTOCOL FOR DOSING. Performed By: #### F IB, PRO ####[place] [address] Heparin dose (APTT) Unknown Normal [facility] ([place]) Comment on above: Performed By: #### F DESMOND, PRO ####[place] [address] CBCon 11-03-2023 Erythrocyte distribution width (RBC) [Ratio] 16.6 % High 11.5-15.5 [facility] ([place] Comment on above: Performed By: #### C LIANG BACON, ADIFF ####[place] [address] Hematocrit (Bld) [Volume fraction] 30.2 % Low 40.0-52.0 [facility] ([place] Comment on above: Performed By: #### C LIANG BACON, ADIFF ####[place] [address] Hgb 9.9 G/dL Low 13.0-17.5 [facility] ([place] Comment on above: Performed By: #### C LIANG BACON, ADIFF ####[place] [address] MCH (RBC) [Entitic mass] 30.4 pg Normal 27.0-33.0 [facility] ([place] Comment on above: Performed By: #### C LIANG BACON, ADIFF ####[place] [address] MCHC 32.8 G/dL Normal 32.0-36.0 [facility] ([place] Comment on above: Performed By: #### C LIANG BACON, ADIFF ####[place] [address] [place] [address] MCV (RBC) [Entitic vol] 92.6 fL Normal 81.0-100.0 [facility] ([place] Comment on above: Performed By: #### C BC, ANEU, ADIFF ####[place] [address] [place] [address] Platelet 168 10 3/mcL Normal 150-450 [facility] ([place]) Comment on above: Performed By: #### C BC, ANEU, ADIFF ####[place] [address] [place] [address] Platelet mean volume (Bld) [Entitic vol] 7.4 fL Normal 6.4-10.5 [facility] ([place] Comment on above: Performed By: #### C BC, ANEU, ADIFF ####[place] [address] RBC 3.27 10 6/mcL Low 4.50-6.00 [facility] ([place] Comment on above: Performed By: #### C BC, ANEU, ADIFF ####[place] [address] WBC 3.1 10 3/mcL Low 4.5-10.8 [facility] ([place] Comment on above: Performed By: #### C BC, ANEU, ADIFF ####[place] [address] FIBon 11-03-2023 Fibrinogen 546 mg/dL Normal 250-560 [facility] ([place]) Comment on above: Performed By: #### F IB, PRO ####[address] [address] LABORATORYOrdered By: Neel Kenny on 11-03-2023 Blood Glucose Testing Reason Routine (11/03/23 3:12 PM) [facility] Work Phone: Glucose [Mass/Vol] 140 mg/dL High 82 - 115 mg/dL [facility] Work Phone: LABORATORYOrdered By: Lavon Clayton on 02-29-2024 Glucose [Mass/Vol] 141 mg/dL High 82 - 115 mg/dL [facility] Work Phone: LABORATORYOrdered By: Beverly Kwan [...] Comment on above: Interpretive Data: Darren [employer] (CHEST, 1992, 102:[id number]) [...] Coag (PPP) [Relative time] 1.0 {INR} Normal [facility] ([place]) Comment on above: Result Comment: [employer] (CHEST, 1992, 102:[id number])recommended therapeutic range for oral anticoagulant therapy is:LOW RISK: Prophylaxis of venous thrombosis INR: 2.0-3.0 Treatment of pulmonary embolism 2.0-3.0 Prevention of systemic embolism 2.0-3.0HIGH RISK: Mechanical prosthetic valves 2.5-3.5 Performed By: #### F DESMOND, PRO ####[address] [address] PT Coag (PPP) [Time] 11.9 s Normal 9.0-14.2 [facility] ([place]) Comment on above: Result Comment: Effe ctive 03/19/08, Protime results may be affected by some antibiotics (i.e. Ciprofloxacin, Azithromycin, Bactrim) which may potentiate the action of oral anticoagulants, with further increases in Protime/INR. Performed By: #### F DESMOND, PRO ####[address] [address] XR ABDOMEN APon 11-03-2023 XR [facility]BDOMEN AP [facility] XR FLUORO 1-2 HRS TECH TIMEo n 11-03-2023 XR FLUORO 1-2 HRS TECH TIME [facility] CURon 10-26-2023 CUR [facility] .Auto Diffon 10-18-2023 Basophil, Absolute 0.0 10 3/mcL Normal 0.0-0.3 [facility] ([place]) Comment on above: Performed By: #### G FR, ANEU, BMP, CBC, ADIFF ####[address] [address] Basophils/100 WBC (Bld) 1.2 % Normal 0.0-2.5 [facility] ([place] Comment on above: Performed By: #### G FR, ANEU, BMP, CBC, ADIFF ####[address] [address] Eosinophil, Absolute 0.3 10 3/mcL Normal 0.0-0.7 [facility] ([place]) Comment on above: Performed By: #### G FR, ANEU, BMP, CBC, ADIFF ####[address] [address] Eosinophils/100 WBC (Bld) 10.8 % High 0.0-6.0 [facility] ([place]) Comment on above: Performed By: #### G FR, ANEU, BMP, CBC, ADIFF ####[address] [address] Lymphocyte, Absolute 0.3 10 3/mcL Low 0.9-4.3 [facility] ([place] Comment on above: Performed By: #### G FR, ANEU, BMP, CBC, ADIFF ####[address] [address] Lymphocytes/100 WBC (Bld) 11.3 % Low 20.0-40.0 [facility] ([place] Comment on above: Performed By: #### G FR, ANEU, BMP, CBC, ADIFF ####[address] [address] Monocyte, Absolute 0.5 10 3/mcL Normal 0.1-1.4 [facility] ([place]) Comment on above: Performed By: #### G FR, ANEU, BMP, CBC, ADIFF ####[address] [address] Monocytes/100 WBC (Bld) 18.3 % High 2.0-13.0 [facility] ([place] Comment on above: Performed By: #### G FR, ANEU, BMP, CBC, ADIFF ####[address] [address] Neutrophils/100 WBC (Bld) 58.4 % Normal 50.0-75.0 [facility] ([place] Comment on above: Performed By: #### G FR, ANEU, BMP, CBC, ADIFF ####[address] [address] .GFRon 10-18-2023 GFR Non- 60 ml/min/1.73sqm Normal [facility] ([place] Comment on above: Result Comment: GFR Population [...] #### G FR, ANEU, BMP, CBC, ADIFF ####[place] [address] GFR >60 Normal [facility] ([place]) Comment on above: Result Comment: GFR Population [...] #### G FR, ANEU, BMP, CBC, ADIFF ####[place] [address] .NEUABSon 10-18-2023 Neutrophil, Absolute 1.7 10 3/mcL Low 2.3-8.1 [facility] ([place] Comment on above: Performed By: #### G FR, ANEU, BMP, CBC, ADIFF ####[place] [address] BMPon 10-18-2023 BUN/Creatinine Ratio 21.7 ratio Normal 10.0-22.0 [facility] ([place]) Comment on above: Performed By: #### G FR, ANEU, BMP, CBC, ADIFF ####[place] [address] Calcium [Mass/Vol] 9.4 mg/dL Normal 8.7-10.4 [facility] ([place]) Comment on above: Performed By: #### G FR, ANEU, BMP, CBC, ADIFF ####[address] [address] Chloride [Moles/Vol] 106 mmol/L Normal 98-110 [facility] ([place]) Comment on above: Performed By: #### G FR, ANEU, BMP, CBC, ADIFF ####[address] [address] CO2 [Moles/Vol] 29 mmol/L Normal 22-32 [facility] ([place] Comment on above: Performed By: #### G FR, ANEU, BMP, CBC, ADIFF ####[address] [address] Creatinine [Mass/Vol] 1.15 mg/dL Normal 0.60-1.40 [facility] ([place] Comment on above: Performed By: #### G FR, ANEU, BMP, CBC, ADIFF ####[place] [address] Electrolyte Balance 4.0 mEq/L Normal 4.0-15.0 [facility] ([place]) Comment on above: Performed By: #### G FR, ANEU, BMP, CBC, ADIFF ####[place] [address] Glucose [Mass/Vol] 103 mg/dL Normal 82-115 [facility] ([place]) Comment on above: Performed By: #### G FR, ANEU, BMP, CBC, ADIFF ####[address] [address] Potassium [Moles/Vol] 4.7 mmol/L Normal 3.5-5.0 [facility] ([place] Comment on above: Performed By: #### G FR, ANEU, BMP, CBC, ADIFF ####[place] [address] Sodium [Moles/Vol] 139 mmol/L Normal 136-145 [facility] ([place]) Comment on above: Performed By: #### G FR, ANEU, BMP, CBC, ADIFF ####[place] [address] Urea nitrogen [Mass/Vol] 25.0 mg/dL High 8.0-22.0 [facility] ([place]) Comment on above: Performed By: #### G FR, ANEU, BMP, CBC, ADIFF ####[place] [address] CBCon 10-18-2023 Erythrocyte distribution width (RBC) [Ratio] 16.7 % High 11.5-15.5 [facility] ([place]) Comment on above: Performed By: #### G FR, ANEU, BMP, CBC, ADIFF ####[place] [address] Hematocrit (Bld) [Volume fraction] 27.8 % Low 40.0-52.0 [facility] ([place]) Comment on above: Performed By: #### G FR, ANEU, BMP, CBC, ADIFF ####[place] [address] Hgb 9.0 G/dL Low 13.0-17.5 [facility] ([place] Comment on above: Performed By: #### G FR, ANEU, BMP, CBC, ADIFF ####[place] [address] MCH (RBC) [Entitic mass] 30.0 pg Normal 27.0-33.0 [facility] ([place]) Comment on above: Performed By: #### G FR, ANEU, BMP, CBC, ADIFF ####[place] [address] MCHC 32.5 G/dL Normal 32.0-36.0 [facility] ([place] Comment on above: Performed By: #### G FR, ANEU, BMP, CBC, ADIFF ####[place] [address] MCV (RBC) [Entitic vol] 92.4 fL Normal 81.0-100.0 [facility] ([place] Comment on above: Performed By: #### G FR, ANEU, BMP, CBC, ADIFF ####[place] [address] Platelet 167 10 3/mcL Normal 150-450 [facility] ([place] Comment on above: Performed By: #### G FR, ANEU, BMP, CBC, ADIFF ####[place] [address] Platelet mean volume (Bld) [Entitic vol] 7.5 fL Normal 6.4-10.5 [facility] ([place] Comment on above: Performed By: #### G FR, ANEU, BMP, CBC, ADIFF ####[place] [address] RBC 3.01 10 6/mcL Low 4.50-6.00 [facility] ([place] Comment on above: Performed By: #### G FR, ANEU, BMP, CBC, ADIFF ####[place] [address] WBC 3.0 10 3/mcL Low 4.5-10.8 [facility] ([place] Comment on above: Performed By: #### G FR, ANEU, BMP, CBC, ADIFF ####[place] [address] LABORATORYOrdered By: SYSTEM SYSTEM on 10-18-2023 Basophils [...] (S/P/Bld) [Vol rate/Area] ml/min/1.73sqm Invalid Interpretation Code Better Weekdays Chemistry S Comment on above: Interpretive Data: [...] [Vol rate/Area] 60 ml/min/1.73sqm Invalid Interpretation Code Better Weekdays Chemistry S Comment on above: Interpretive Data: [...] Basophil, Absolute 0.0 10 3/mcL Normal 0.0-0.2 [facility] ([place]) Comment on above: Performed By: #### C MP, PSA, ADIFF, ANEU, GFR, CBC ####[address] [place], [place] [address] Basophils/100 WBC (Bld) 0.7 % Normal 0.0-2.5 [facility] ([place] Comment on above: Performed By: #### C MP, PSA, ADIFF, ANEU, GFR, CBC ####[address] [place], [place] [address] Eosinophil, Absolute 0.3 10 3/mcL Normal 0.0-0.4 [facility] ([place]) Comment on above: Performed By: #### C MP, PSA, ADIFF, ANEU, GFR, CBC ####[address] [place], [place] [address] Eosinophils/100 WBC (Bld) 9.4 % High 0.0-7.0 [facility] ([place]) Comment on above: Performed By: #### C MP, PSA, ADIFF, ANEU, GFR, CBC ####[address] [address] Lymphocyte, Absolute 0.3 10 3/mcL Low 0.8-3.9 [facility] ([place]) Comment on above: Performed By: #### C MP, PSA, ADIFF, ANEU, GFR, CBC ####[address] [address] Lymphocytes/100 WBC (Bld) 10.2 % Normal 10.0-50.0 [facility] ([place] Comment on above: Performed By: #### C MP, PSA, ADIFF, ANEU, GFR, CBC ####[address] [address] Monocyte, Absolute 0.5 10 3/mcL Normal 0.2-1.0 [facility] ([place]) Comment on above: Performed By: #### C MP, PSA, ADIFF, ANEU, GFR, CBC ####[address] [address] Monocytes/100 WBC (Bld) 16.1 % High 1.7-13.0 [facility] ([place]) Comment on above: Performed By: #### C MP, PSA, ADIFF, ANEU, GFR, CBC ####[address] [place], [place] [address] Neutrophils/100 WBC (Bld) 63.6 % Normal 37.0-80.0 [facility] ([place] Comment on above: Performed By: #### C MP, PSA, ADIFF, ANEU, GFR, CBC ####[address] [place], [place] [address] .GFRon 10-11-2023 GFR 56 ml/min/1.73sqm Normal [facility] ([place]) Comment on above: Result Comment: GFR [...] MP, PSA, ADIFF, ANEU, GFR, CBC ####[address] [place], [place] [address] GFR Non- 46 ml/min/1.73sqm Normal [facility] ([place]) Comment on above: Result Comment: GFR Population [...] MP, PSA, ADIFF, ANEU, GFR, CBC ####[address] [place], [place] [address] .NEUABSon 10-11-2023 Neutrophil, Absolute 2.2 10 3/mcL Low 2.9-6.2 [facility] ([place]) Comment on above: Performed By: #### C MP, PSA, ADIFF, ANEU, GFR, CBC ####[address] [place], [place] [address] CBCon 10-11-2023 Erythrocyte distribution width (RBC) [Ratio] 16.0 % High 11.5-14.5 [facility] ([place] Comment on above: Performed By: #### C MP, PSA, ADIFF, ANEU, GFR, CBC ####[address] [place], [place] [address] Hematocrit (Bld) [Volume fraction] 25.5 % Low 42.0-52.0 [facility] ([place] Comment on above: Performed By: #### C MP, PSA, ADIFF, ANEU, GFR, CBC ####[address] [place], [place] [address] Hgb 8.6 G/dL Low 14.0-18.0 [facility] ([place] Comment on above: Performed By: #### C MP, PSA, ADIFF, ANEU, GFR, CBC ####[place] [address] [place], [place] [address] MCH (RBC) [Entitic mass] 30.7 pg Normal 27.0-31.2 [facility] ([place] Comment on above: Performed By: #### C MP, PSA, ADIFF, ANEU, GFR, CBC ####[address] [place], [place] [address] MCHC 33.9 G/dL Normal 31.8-35.4 [facility] ([place] Comment on above: Performed By: #### C MP, PSA, ADIFF, ANEU, GFR, CBC ####[place] [address] [place] [id number] MCV (RBC) [Entitic vol] 90.6 fL Normal 80.0-94.0 [facility] ([place] Comment on above: Performed By: #### C MP, PSA, ADIFF, ANEU, GFR, CBC ####[address] [place], [place] [address] Platelet 169 10 3/mcL Normal 130-400 [facility] ([place]) Comment on above: Performed By: #### C MP, PSA, ADIFF, ANEU, GFR, CBC ####[address] [place], [place] [address] Platelet mean volume (Bld) [Entitic vol] 7.4 fL Normal 7.4-10.4 [facility] ([place] Comment on above: Performed By: #### C MP, PSA, ADIFF, ANEU, GFR, CBC ####[address] [place], [place] [address] RBC 2.81 10 6/mcL Low 4.04-6.13 [facility] ([place] Comment on above: Performed By: #### C MP, PSA, ADIFF, ANEU, GFR, CBC ####[address] [place], [place] [address] WBC 3.4 10 3/mcL Low 4.6-10.8 [facility] ([place] Comment on above: Performed By: #### C MP, PSA, ADIFF, ANEU, GFR, CBC ####[address] [place], [place] [address] CMPon 10-11-2023 Albumin Level 3.2 G/dL Low 3.4-4.8 [facility] ([place] Comment on above: Performed By: #### C MP, PSA, ADIFF, ANEU, GFR, CBC ####[address] [place], [place] [address] Albumin/Globulin [Mass ratio] 1.0 {ratio} Low 1.1-2.5 [facility] ([place] Comment on above: Performed By: #### C MP, PSA, ADIFF, ANEU, GFR, CBC ####[address] [place], [place] [address] ALP [Catalytic activity/Vol] 74 U/L Normal 40-135 [facility] ([place]) Comment on above: Performed By: #### C MP, PSA, ADIFF, ANEU, GFR, CBC ####[address] [place], [place] [address] ALT [Catalytic activity/Vol] 24 U/L Normal 16-63 [facility] ([place] Comment on above: Performed By: #### C MP, PSA, ADIFF, ANEU, GFR, CBC ####[address] [place], [place] [address] AST [Catalytic activity/Vol] 26 U/L Normal 10-40 [facility] ([place]) Comment on above: Performed By: #### C MP, PSA, ADIFF, ANEU, GFR, CBC ####[address] [place], [place] [address] Bili Total 0.3 mg/dL Normal 0.2-1.0 [facility] ([place]) Comment on above: Result Comment: Use of this assay is not recommended for patients undergoing treatment with eltrombopag due to the potential for falsely elevated results. Performed By: #### C MP, PSA, ADIFF, ANEU, GFR, CBC ####[address] [place], [place] [address] BUN/Creatinine Ratio 19 ratio Normal 7-27 [facility] ([place]) Comment on above: Performed By: #### C MP, PSA, ADIFF, ANEU, GFR, CBC ####[address] [place], [place] [address] Calcium [Mass/Vol] 9.0 mg/dL Normal 8.4-10.2 [facility] ([place]) Comment on above: Performed By: #### C MP, PSA, ADIFF, ANEU, GFR, CBC ####[address] [place], [place] [address] Chloride [Moles/Vol] 104 mmol/L Normal 98-107 [facility] ([place]) Comment on above: Performed By: #### C MP, PSA, ADIFF, ANEU, GFR, CBC ####[address] [place], [place] [address] CO2 [Moles/Vol] 30 mmol/L Normal 23-31 [facility] ([place] Comment on above: Performed By: #### C MP, PSA, ADIFF, ANEU, GFR, CBC ####[address] [place], [place] [address] Creatinine [Mass/Vol] 1.45 mg/dL High 0.70-1.30 [facility] ([place]) Comment on above: Performed By: #### C MP, PSA, ADIFF, ANEU, GFR, CBC ####[address] [place], [place] [address] Electrolyte Balance 6.0 mEq/L Normal 4.0-15.0 [facility] ([place]) Comment on above: Performed By: #### C MP, PSA, ADIFF, ANEU, GFR, CBC ####[address] [place], [place] [address] Globulin 3.3 G/dL Normal [facility] ([place] Comment on above: Performed By: #### C MP, PSA, ADIFF, ANEU, GFR, CBC ####[address] [place], [place] [address] Glucose [Mass/Vol] 113 mg/dL High 83-110 [facility] ([place]) Comment on above: Performed By: #### C MP, PSA, ADIFF, ANEU, GFR, CBC ####[address] [place], [place] [address] Potassium [Moles/Vol] 4.2 mmol/L Normal 3.5-5.1 [facility] ([place] Comment on above: Performed By: #### C MP, PSA, ADIFF, ANEU, GFR, CBC ####[address] [place], [place] [address] Sodium [Moles/Vol] 140 mmol/L Normal 136-145 [facility] ([place]) Comment on above: Performed By: #### C MP, PSA, ADIFF, ANEU, GFR, CBC ####[address] [place], [place] [address] Total Protein 6.5 G/dL Normal 6.4-8.2 [facility] ([place] Comment on above: Performed By: #### C MP, PSA, ADIFF, ANEU, GFR, CBC ####[address] [place], [place] [address] Urea nitrogen [Mass/Vol] 27 mg/dL High 7-18 [facility] ([place] Comment on above: Performed By: #### C MP, PSA, ADIFF, ANEU, GFR, CBC ####[address] [place], [place] [address] LABORATORYOrdered By: SYSTEM SYSTEM on 10-11-2023 Albumin [...] 10-11-2023 Prostate Specific Antigen <0.05 Normal 0.00-4.00 [facility] ([place] Comment on above: Performed By: #### C MP, PSA, ADIFF, ANEU, GFR, CBC ####[place] [address] [place], [place] [address] CURon 09-30-2023 CUR Normal [facility] ([place]) .Auto Diffon 09-28-2023 Basophil, Absolute 0.0 10 3/mcL Normal 0.0-0.3 [facility] ([place]) Comment on above: Performed By: #### C BC, FES, CMP, GFR, ADIFF, FERR, ANEU ####[address] [address] Basophils/100 WBC (Bld) 1.1 % Normal 0.0-2.5 [facility] ([place]) Comment on above: Performed By: #### C BC, FES, CMP, GFR, ADIFF, FERR, ANEU ####[address] [address] Eosinophil, Absolute 0.3 10 3/mcL Normal 0.0-0.7 [facility] ([place]) Comment on above: Performed By: #### C BC, FES, CMP, GFR, ADIFF, FERR, ANEU ####[address] [address] Eosinophils/100 WBC (Bld) 6.6 % High 0.0-6.0 [facility] ([place]) Comment on above: Performed By: #### C BC, FES, CMP, GFR, ADIFF, FERR, ANEU ####[address] [address] Lymphocyte, Absolute 0.3 10 3/mcL Low 0.9-4.3 [facility] ([place]) Comment on above: Performed By: #### C BC, FES, CMP, GFR, ADIFF, FERR, ANEU ####[address] [address] Lymphocytes/100 WBC (Bld) 8.1 % Low 20.0-40.0 [facility] ([place] Comment on above: Performed By: #### C BC, FES, CMP, GFR, ADIFF, FERR, ANEU ####[address] [address] Monocyte, Absolute 0.5 10 3/mcL Normal 0.1-1.4 [facility] ([place]) Comment on above: Performed By: #### C BC, FES, CMP, GFR, ADIFF, FERR, ANEU ####[address] [address] Monocytes/100 WBC (Bld) 13.1 % High 2.0-13.0 [facility] ([place] Comment on above: Performed By: #### C BC, FES, CMP, GFR, ADIFF, FERR, ANEU ####[address] [address] Neutrophils/100 WBC (Bld) 71.1 % Normal 50.0-75.0 [facility] ([place] Comment on above: Performed By: #### C BC, FES, CMP, GFR, ADIFF, FERR, ANEU ####[address] [address] .GFRon 09-28-2023 GFR 60 ml/min/1.73sqm Normal [facility] ([place]) Comment on above: Result Comment: GFR Population [...] BC, FES, CMP, GFR, ADIFF, FERR, ANEU ####[place] [address] GFR Non- 49 ml/min/1.73sqm Normal [facility] ([place]) Comment on above: Result Comment: GFR Population [...] BC, FES, CMP, GFR, ADIFF, FERR, ANEU ####[place] [address] .NEUABSon 09-28-2023 Neutrophil, Absolute 2.7 10 3/mcL Normal 2.3-8.1 [facility] ([place]) Comment on above: Performed By: #### C BC, FES, CMP, GFR, ADIFF, FERR, ANEU ####[place] [address] CBCon 09-28-2023 Erythrocyte distribution width (RBC) [Ratio] 15.4 % Normal 11.5-15.5 [facility] ([place] Comment on above: Performed By: #### C BC, FES, CMP, GFR, ADIFF, FERR, ANEU ####[place] [address] Hematocrit (Bld) [Volume fraction] 27.2 % Low 40.0-52.0 [facility] ([place] Comment on above: Performed By: #### C BC, FES, CMP, GFR, ADIFF, FERR, ANEU ####[place] [address] Hgb 8.9 G/dL Low 13.0-17.5 [facility] ([place] Comment on above: Performed By: #### C BC, FES, CMP, GFR, ADIFF, FERR, ANEU ####[place] [address] MCH (RBC) [Entitic mass] 30.4 pg Normal 27.0-33.0 [facility] ([place] Comment on above: Performed By: #### C BC, FES, CMP, GFR, ADIFF, FERR, ANEU ####[place] [address] MCHC 32.7 G/dL Normal 32.0-36.0 [facility] ([place] Comment on above: Performed By: #### C BC, FES, CMP, GFR, ADIFF, FERR, ANEU ####[place] [address] MCV (RBC) [Entitic vol] 92.9 fL Normal 81.0-100.0 [facility] ([place] Comment on above: Performed By: #### C BC, FES, CMP, GFR, ADIFF, FERR, ANEU ####[place] [address] Platelet 222 10 3/mcL Normal 150-450 [facility] ([place] Comment on above: Performed By: #### C BC, FES, CMP, GFR, ADIFF, FERR, ANEU ####[place] [address] Platelet mean volume (Bld) [Entitic vol] 8.2 fL Normal 6.4-10.5 [facility] ([place] Comment on above: Performed By: #### C BC, FES, CMP, GFR, ADIFF, FERR, ANEU ####[place] [address] RBC 2.93 10 6/mcL Low 4.50-6.00 [facility] ([place] Comment on above: Performed By: #### C BC, FES, CMP, GFR, ADIFF, FERR, ANEU ####[place] [address] WBC 3.8 10 3/mcL Low 4.5-10.8 [facility] ([place] Comment on above: Performed By: #### C BC, FES, CMP, GFR, ADIFF, FERR, ANEU ####[place] [id number] CMPon 09-28-2023 Albumin Level 3.0 G/dL Low 3.2-4.8 [facility] ([place] Comment on above: Performed By: #### C BC, FES, CMP, GFR, ADIFF, FERR, ANEU ####[place] [address] Albumin/Globulin [Mass ratio] 0.9 {ratio} Normal 0.9-1.6 [facility] ([place] Comment on above: Performed By: #### C BC, FES, CMP, GFR, ADIFF, FERR, ANEU ####[place] [address] ALP [Catalytic activity/Vol] 57 U/L Normal 38-126 [facility] ([place] Comment on above: Performed By: #### C BC, FES, CMP, GFR, ADIFF, FERR, ANEU ####[place] [address] ALT [Catalytic activity/Vol] 16 U/L Normal 12-55 [facility] ([place] Comment on above: Performed By: #### C BC, FES, CMP, GFR, ADIFF, FERR, ANEU ####[place] [address] AST [Catalytic activity/Vol] 26 U/L Normal 8-34 [facility] ([place] Comment on above: Performed By: #### C BC, FES, CMP, GFR, ADIFF, FERR, ANEU ####[place] [address] Bili Total 0.20 mg/dL Normal 0.20-1.20 [facility] ([place] Comment on above: Result Comment: Use of this assay is not recommended for patients undergoing treatment with eltrombopag due to the potential for falsely elevated results. Performed By: #### C BC, FES, CMP, GFR, ADIFF, FERR, ANEU ####[place] [address] BUN/Creatinine Ratio 19.0 ratio Normal 10.0-22.0 [facility] ([place]) Comment on above: Performed By: #### C BC, FES, CMP, GFR, ADIFF, FERR, ANEU ####[address] [address] Calcium [Mass/Vol] 9.2 mg/dL Normal 8.7-10.4 [facility] ([place]) Comment on above: Performed By: #### C BC, FES, CMP, GFR, ADIFF, FERR, ANEU ####[address] [address] Chloride [Moles/Vol] 108 mmol/L Normal 98-110 [facility] ([place]) Comment on above: Performed By: #### C BC, FES, CMP, GFR, ADIFF, FERR, ANEU ####[place] [address] CO2 [Moles/Vol] 31 mmol/L Normal 22-32 [facility] ([place] Comment on above: Performed By: #### C BC, FES, CMP, GFR, ADIFF, FERR, ANEU ####[place] [address] Creatinine [Mass/Vol] 1.37 mg/dL Normal 0.60-1.40 [facility] ([place] Comment on above: Performed By: #### C BC, FES, CMP, GFR, ADIFF, FERR, ANEU ####[place] [address] Electrolyte Balance 1.0 mEq/L Low 4.0-15.0 [facility] ([place]) Comment on above: Performed By: #### C BC, FES, CMP, GFR, ADIFF, FERR, ANEU ####[address] [address] Globulin 3.3 G/dL Normal 1.5-3.8 [facility] ([place] Comment on above: Performed By: #### C BC, FES, CMP, GFR, ADIFF, FERR, ANEU ####[address] [address] Glucose [Mass/Vol] 106 mg/dL Normal 82-115 [facility] ([place] Comment on above: Performed By: #### C BC, FES, CMP, GFR, ADIFF, FERR, ANEU ####[place] [id number] Potassium [Moles/Vol] 4.5 mmol/L Normal 3.5-5.0 [facility] ([place] Comment on above: Performed By: #### C BC, FES, CMP, GFR, ADIFF, FERR, ANEU ####[place] [address] Sodium [Moles/Vol] 140 mmol/L Normal 136-145 [facility] ([place] Comment on above: Performed By: #### C BC, FES, CMP, GFR, ADIFF, FERR, ANEU ####[place] [address] Total Protein 6.3 G/dL Normal 5.7-8.2 [facility] ([place] Comment on above: Result Comment: No te - New Reference Range in effect 20 Performed By: #### C BC, FES, CMP, GFR, ADIFF, FERR, ANEU ####[place] [address] Urea nitrogen [Mass/Vol] 26.0 mg/dL High 8.0-22.0 [facility] ([place] Comment on above: Performed By: #### C BC, FES, CMP, GFR, ADIFF, FERR, ANEU ####[place] [address] Mary 09-28-2023 Ferritin [Mass/Vol] 306.2 ng/mL Normal 26.0-388.0 [facility] ([place] Comment on above: Performed By: #### C BC, FES, CMP, GFR, ADIFF, FERR, ANEU ####[place] [address] FESon 09-28-2023 Iron [Mass/Vol] 46 ug/dL Low 65-175 [facility] ([place] Comment on above: Performed By: #### C BC, FES, CMP, GFR, ADIFF, FERR, ANEU ####[place] [address] Iron Sat 16 % Normal [facility] ([place] Comment on above: Performed By: #### C BC, FES, CMP, GFR, ADIFF, FERR, ANEU ####[address] [address] TIBC 279 mcg/dL Normal 250-500 [facility] ([place] Comment on above: Performed By: #### C BC, FES, CMP, GFR, ADIFF, FERR, ANEU ####[address] [address] CBLon 09-26-2023 CBL Normal [facility] ([place]) .Auto Diffon 09-23-2023 Basophil, Absolute 0.0 10 3/mcL Normal 0.0-0.3 [facility] ([place]) Comment on above: Performed By: #### B MP, ANEU, GFR, ADIFF, CBC ####[place] [address] Basophils/100 WBC (Bld) 0.6 % Normal 0.0-2.5 [facility] ([place] Comment on above: Performed By: #### B MP, ANEU, GFR, ADIFF, CBC ####[place] [address] Eosinophil, Absolute 0.2 10 3/mcL Normal 0.0-0.7 [facility] ([place] Comment on above: Performed By: #### B MP, ANEU, GFR, ADIFF, CBC ####[place] [address] Eosinophils/100 WBC (Bld) 4.8 % Normal 0.0-6.0 [facility] ([place] Comment on above: Performed By: #### B MP, ANEU, GFR, ADIFF, CBC ####[place] [address] Lymphocyte, Absolute 0.3 10 3/mcL Low 0.9-4.3 [facility] ([place] Comment on above: Performed By: #### B MP, ANEU, GFR, ADIFF, CBC ####[address] [address] Lymphocytes/100 WBC (Bld) 6.2 % Low 20.0-40.0 [facility] ([place] Comment on above: Performed By: #### B MP, ANEU, GFR, ADIFF, CBC ####[address] [address] Monocyte, Absolute 0.4 10 3/mcL Normal 0.1-1.4 [facility] ([place] Comment on above: Performed By: #### B MP, ANEU, GFR, ADIFF, CBC ####[address] [address] Monocytes/100 WBC (Bld) 8.8 % Normal 2.0-13.0 [facility] ([place] Comment on above: Performed By: #### B MP, ANEU, GFR, ADIFF, CBC ####[address] [address] Neutrophils/100 WBC (Bld) 79.6 % High 50.0-75.0 [facility] ([place] Comment on above: Performed By: #### B MP, ANEU, GFR, ADIFF, CBC ####[address] [address] .GFRon 09-23-2023 GFR Non- 44 ml/min/1.73sqm Normal [facility] ([place]) Comment on above: Result Comment: GFR Population [...] #### B MP, ANEU, GFR, ADIFF, CBC ####[address] [address] GFR 54 ml/min/1.73sqm Normal [facility] ([place] Comment on above: Result Comment: GFR Population [...] #### B MP, ANEU, GFR, ADIFF, CBC ####[address] [address] .NEUABSon 09-23-2023 Neutrophil, Absolute 3.7 10 3/mcL Normal 2.3-8.1 [facility] ([place] Comment on above: Performed By: #### B MP, ANEU, GFR, ADIFF, CBC ####[address] [address] BMPon 09-23-2023 BUN/Creatinine Ratio 22.7 ratio High 10.0-22.0 [facility] ([place] Comment on above: Performed By: #### B MP, ANEU, GFR, ADIFF, CBC ####[address] [address] Calcium [Mass/Vol] 8.2 mg/dL Low 8.7-10.4 [facility] ([place] Comment on above: Performed By: #### B MP, ANEU, GFR, ADIFF, CBC ####[address] [address] Chloride [Moles/Vol] 110 mmol/L Normal 98-110 [facility] ([place] Comment on above: Performed By: #### B MP, ANEU, GFR, ADIFF, CBC ####[address] [address] CO2 [Moles/Vol] 26 mmol/L Normal 22-32 [facility] ([place] Comment on above: Performed By: #### B MP, ANEU, GFR, ADIFF, CBC ####[address] [address] Creatinine [Mass/Vol] 1.50 mg/dL High 0.60-1.40 [facility] ([place] Comment on above: Performed By: #### B MP, ANEU, GFR, ADIFF, CBC ####[place] [address] Electrolyte Balance 6.0 mEq/L Normal 4.0-15.0 [facility] ([place]) Comment on above: Performed By: #### B MP, ANEU, GFR, ADIFF, CBC ####[address] [address] Glucose [Mass/Vol] 111 mg/dL Normal 82-115 [facility] ([place] Comment on above: Performed By: #### B MP, ANEU, GFR, ADIFF, CBC ####[place] [address] Potassium [Moles/Vol] 4.1 mmol/L Normal 3.5-5.0 [facility] ([place] Comment on above: Performed By: #### B MP, ANEU, GFR, ADIFF, CBC ####[address] [address] Sodium [Moles/Vol] 142 mmol/L Normal 136-145 [facility] ([place] Comment on above: Performed By: #### B MP, ANEU, GFR, ADIFF, CBC ####[address] [address] Urea nitrogen [Mass/Vol] 34.0 mg/dL High 8.0-22.0 [facility] ([place]) Comment on above: Performed By: #### B MP, ANEU, GFR, ADIFF, CBC ####[address] [address] CBCon 09-23-2023 Erythrocyte distribution width (RBC) [Ratio] 15.3 % Normal 11.5-15.5 [facility] ([place]) Comment on above: Performed By: #### B MP, ANEU, GFR, ADIFF, CBC ####[place] [address] Hematocrit (Bld) [Volume fraction] 23.3 % Low 40.0-52.0 [facility] ([place]) Comment on above: Performed By: #### B MP, ANEU, GFR, ADIFF, CBC ####[place] [address] Hgb 7.9 G/dL Low 13.0-17.5 [facility] ([place]) Comment on above: Performed By: #### B MP, ANEU, GFR, ADIFF, CBC ####[place] [address] MCH (RBC) [Entitic mass] 30.8 pg Normal 27.0-33.0 [facility] ([place]) Comment on above: Performed By: #### B MP, ANEU, GFR, ADIFF, CBC ####[place] [address] MCHC 34.0 G/dL Normal 32.0-36.0 [facility] ([place]) Comment on above: Performed By: #### B MP, ANEU, GFR, ADIFF, CBC ####[place] [address] MCV (RBC) [Entitic vol] 90.7 fL Normal 81.0-100.0 [facility] ([place]) Comment on above: Performed By: #### B MP, ANEU, GFR, ADIFF, CBC ####[place] [address] Platelet 158 10 3/mcL Normal 150-450 [facility] ([place]) Comment on above: Performed By: #### B MP, ANEU, GFR, ADIFF, CBC ####[place] [address] Platelet mean volume (Bld) [Entitic vol] 7.8 fL Normal 6.4-10.5 [facility] ([place] Comment on above: Performed By: #### B MP, ANEU, GFR, ADIFF, CBC ####[place] [address] RBC 2.57 10 6/mcL Low 4.50-6.00 [facility] ([place] Comment on above: Performed By: #### B MP, ANEU, GFR, ADIFF, CBC ####[place] [address] WBC 4.7 10 3/mcL Normal 4.5-10.8 [facility] ([place] Comment on above: Performed By: #### B MP, ANEU, GFR, ADIFF, CBC ####[place] [address] Mary 09-23-2023 Ferritin [Mass/Vol] 381.4 ng/mL Normal 26.0-388.0 [facility] ([place]) Comment on above: Performed By: #### F ERR, FES ####[place] [address] FESon 09-23-2023 Iron [Mass/Vol] 63 ug/dL Low 65-175 [facility] ([place] Comment on above: Performed By: #### F ERR, FES ####[place] [address] Iron Sat 29 % Normal [facility] ([place] Comment on above: Performed By: #### F ERR, FES ####[place] [address] TIBC 219 mcg/dL Low 250-500 [facility] ([place] Comment on above: Performed By: #### F ERR, FES ####[place] [address] HHon 09-23-2023 Hematocrit (Bld) [Volume fraction] 27.8 % Low 40.0-52.0 [facility] ([place] Comment on above: Performed By: #### H H ####[place] [address] Hgb 9.4 G/dL Low 13.0-17.5 [facility] ([place] Comment on above: Performed By: #### H H ####[place] [address] LABORATORYOrdered By: Sheryl Lara on 09-23-2023 Glucose [Mass/Vol] 163 mg/dL High 82 - 115 mg/dL [facility] Work Phone: LABORATORYOrdered By: SYSTEM SYSTEM [...] Reason Routine (09/23/23 7:57 AM) [facility] Work Phone: Glucose [Mass/Vol] 115 mg/dL Normal 82 - 115 mg/dL [facility] Work Phone: .Auto Diffon 09-22-2023 Basophil, Absolute 0.0 10 3/mcL Normal 0.0-0.3 [facility] ([place] Comment on above: Performed By: #### M ORPH, GFR, CBC, ADIFF, BMP, ANEU ####[address] [address] Basophils/100 WBC (Bld) 0.2 % Normal 0.0-2.5 [facility] ([place] Comment on above: Performed By: #### M ORPH, GFR, CBC, ADIFF, BMP, ANEU ####[address] [address] Eosinophil, Absolute 0.0 10 3/mcL Normal 0.0-0.7 [facility] ([place]) Comment on above: Performed By: #### M ORPH, GFR, CBC, ADIFF, BMP, ANEU ####[address] [address] Eosinophils/100 WBC (Bld) 0.0 % Normal 0.0-6.0 [facility] ([place] Comment on above: Performed By: #### M ORPH, GFR, CBC, ADIFF, BMP, ANEU ####[address] [address] Lymphocyte, Absolute 0.2 10 3/mcL Low 0.9-4.3 [facility] ([place] Comment on above: Performed By: #### M ORPH, GFR, CBC, ADIFF, BMP, ANEU ####[address] [address] Lymphocytes/100 WBC (Bld) 3.9 % Low 20.0-40.0 [facility] ([place] Comment on above: Performed By: #### M ORPH, GFR, CBC, ADIFF, BMP, ANEU ####[address] [address] Monocyte, Absolute 0.4 10 3/mcL Normal 0.1-1.4 [facility] ([place] Comment on above: Performed By: #### M ORPH, GFR, CBC, ADIFF, BMP, ANEU ####[address] [address] Monocytes/100 WBC (Bld) 7.7 % Normal 2.0-13.0 [facility] ([place] Comment on above: Performed By: #### M ORPH, GFR, CBC, ADIFF, BMP, ANEU ####[address] [address] Neutrophils/100 WBC (Bld) 88.2 % High 50.0-75.0 [facility] ([place] Comment on above: Performed By: #### M ORPH, GFR, CBC, ADIFF, BMP, ANEU ####[address] [address] .GFRon 09-22-2023 GFR 51 ml/min/1.73sqm Normal [facility] ([place] Comment on above: Result Comment: GFR Population [...] M ORPH, GFR, CBC, ADIFF, BMP, ANEU ####[address] [address] GFR Non- 42 ml/min/1.73sqm Normal [facility] ([place] Comment on above: Result Comment: GFR Population [...] M ORPH, GFR, CBC, ADIFF, BMP, ANEU ####[place] [address] .Morphon 09-22-2023 Anisocytosis Ql (Bld) 1+ Normal [facility] ([place] Comment on above: Performed By: #### M ORPH, GFR, CBC, ADIFF, BMP, ANEU ####[place] [address] Ovalocytes 1+ Normal [facility] ([place] Comment on above: Performed By: #### M ORPH, GFR, CBC, ADIFF, BMP, ANEU ####[place] [address] Platelet Estimate Slt Decreased Normal [facility] ([place] Comment on above: Performed By: #### M ORPH, GFR, CBC, ADIFF, BMP, ANEU ####[place] [address] Poik 1+ Normal [facility] ([place] Comment on above: Performed By: #### M ORPH, GFR, CBC, ADIFF, BMP, ANEU ####[place] [address] Polychrom 1+ Normal [facility] ([place] Comment on above: Performed By: #### M ORPH, GFR, CBC, ADIFF, BMP, ANEU ####[place] [address] .NEUABSon 09-22-2023 Neutrophil, Absolute 5.1 10 3/mcL Normal 2.3-8.1 [facility] ([place] Comment on above: Performed By: #### M ORPH, GFR, CBC, ADIFF, BMP, ANEU ####[place] [address] ABO/Rh (Gel)on 09-22-2023 ABO/Rh Interp Positive Invalid Interpretation Code [facility] ([place] Comment on above: Performed By: #### A BSGEL, ABOGEL ####[place] [address] ABS (Gel)on 09-22-2023 ABSC Interp (Gel) Negative Normal [facility] ([place] Comment on above: Performed By: #### A BSJEREMIAS CATHERINEGEL ####[address] [address] BMPon 09-22-2023 BUN/Creatinine Ratio 20.3 ratio Normal 10.0-22.0 [facility] ([place] Comment on above: Performed By: #### M ORPH, GFR, CBC, ADIFF, BMP, ANEU ####[place] [address] Calcium [Mass/Vol] 7.7 mg/dL Low 8.7-10.4 [facility] ([place]) Comment on above: Performed By: #### M ORPH, GFR, CBC, ADIFF, BMP, ANEU ####[place] [address] Chloride [Moles/Vol] 110 mmol/L Normal 98-110 [facility] ([place] Comment on above: Performed By: #### M ORPH, GFR, CBC, ADIFF, BMP, ANEU ####[place] [address] CO2 [Moles/Vol] 23 mmol/L Normal 22-32 [facility] ([place] Comment on above: Performed By: #### M ORPH, GFR, CBC, ADIFF, BMP, ANEU ####[place] [address] Creatinine [Mass/Vol] 1.58 mg/dL High 0.60-1.40 [facility] ([place] Comment on above: Performed By: #### M ORPH, GFR, CBC, ADIFF, BMP, ANEU ####[place] [address] Electrolyte Balance 4.0 mEq/L Normal 4.0-15.0 [facility] ([place] Comment on above: Performed By: #### M ORPH, GFR, CBC, ADIFF, BMP, ANEU ####[place] [address] Glucose [Mass/Vol] 169 mg/dL High 82-115 [facility] ([place] Comment on above: Performed By: #### M ORPH, GFR, CBC, ADIFF, BMP, ANEU ####[place] [address] Potassium [Moles/Vol] 4.5 mmol/L Normal 3.5-5.0 [facility] ([place] Comment on above: Performed By: #### M ORPH, GFR, CBC, ADIFF, BMP, ANEU ####[place] [address] Sodium [Moles/Vol] 137 mmol/L Normal 136-145 [facility] ([place] Comment on above: Performed By: #### M ORPH, GFR, CBC, ADIFF, BMP, ANEU ####[place] [address] Urea nitrogen [Mass/Vol] 32.0 mg/dL High 8.0-22.0 [facility] ([place] Comment on above: Performed By: #### M ORPH, GFR, CBC, ADIFF, BMP, ANEU ####[place] [address] CBCon 09-22-2023 Erythrocyte distribution width (RBC) [Ratio] 14.9 % Normal 11.5-15.5 [facility] ([place] Comment on above: Performed By: #### M ORPH, GFR, CBC, ADIFF, BMP, ANEU ####[place] [address] Hematocrit (Bld) [Volume fraction] 19.9 % Low 40.0-52.0 [facility] ([place] Comment on above: Performed By: #### M ORPH, GFR, CBC, ADIFF, BMP, ANEU ####[place] [address] Hgb 6.7 G/dL Critically abnormal 13.0-17.5 [facility] ([place] Comment on above: Performed By: #### M ORPH, GFR, CBC, ADIFF, BMP, ANEU ####[place] [address] MCH (RBC) [Entitic mass] 31.0 pg Normal 27.0-33.0 [facility] ([place] Comment on above: Performed By: #### M ORPH, GFR, CBC, ADIFF, BMP, ANEU ####[place] [address] MCHC 33.9 G/dL Normal 32.0-36.0 [facility] ([place] Comment on above: Performed By: #### M ORPH, GFR, CBC, ADIFF, BMP, ANEU ####[place] [address] MCV (RBC) [Entitic vol] 91.4 fL Normal 81.0-100.0 [facility] ([place] Comment on above: Performed By: #### M ORPH, GFR, CBC, ADIFF, BMP, ANEU ####[place] [address] Platelet 139 10 3/mcL Low 150-450 [facility] ([place] Comment on above: Performed By: #### M ORPH, GFR, CBC, ADIFF, BMP, ANEU ####[place] [address] Platelet mean volume (Bld) [Entitic vol] 7.2 fL Normal 6.4-10.5 [facility] ([place] Comment on above: Performed By: #### M ORPH, GFR, CBC, ADIFF, BMP, ANEU ####[place] [address] RBC 2.18 10 6/mcL Low 4.50-6.00 [facility] ([place] Comment on above: Performed By: #### M ORPH, GFR, CBC, ADIFF, BMP, ANEU ####[place] [address] WBC 5.8 10 3/mcL Normal 4.5-10.8 [facility] ([place] Comment on above: Performed By: #### M ORPH, GFR, CBC, ADIFF, BMP, ANEU ####[place] [address] CURon 09-22-2023 CUR Normal [facility] ([place]) HHon 09-22-2023 Hematocrit (Bld) [Volume fraction] 24.3 % Low 40.0-52.0 [facility] ([place] Comment on above: Performed By: #### H H ####[place] [address] [place] [address] Hgb 8.2 G/dL Low 13.0-17.5 [facility] ([place] Comment on above: Performed By: #### H H ####[place] [address] [place] [address] LABORATORYOrdered By: Shilpa Walker on 09-22-2023 Glucose [Mass/Vol] 150 mg/dL High 82 - 115 mg/dL [facility] Work Phone: LABORATORYOrdered By: SYSTEM SYSTEM [...] [Vol rate/Area] 51 ml/min/1.73sqm Invalid Interpretation Code Better Weekdays Chemistry S Comment on above: Interpretive Data: [...] [Vol rate/Area] 42 ml/min/1.73sqm Invalid Interpretation Code Better Weekdays Chemistry S Comment on above: Interpretive Data: [...] Reason Routine (09/22/23 8:10 AM) [facility] Work Phone: LABORATORYOrdered By: Laura Molina [...] Product Ready RBC Ready for Pickup Normal [facility] ([place] Comment on above: Performed By: #### R BCP ####[address] [address] .Auto Diffon 09-21-2023 Basophil, Absolute 0.0 10 3/mcL Normal 0.0-0.3 [facility] ([place] Comment on above: Performed By: #### C BC, BMP, ANEU, ADIFF, HFP, GFR ####[address] [address] Basophils/100 WBC (Bld) 0.4 % Normal 0.0-2.5 [facility] ([place] Comment on above: Performed By: #### C BC, BMP, ANEU, ADIFF, HFP, GFR ####[address] [address] Eosinophil, Absolute 0.0 10 3/mcL Normal 0.0-0.7 [facility] ([place] Comment on above: Performed By: #### C BC, BMP, ANEU, ADIFF, HFP, GFR ####[address] [address] Eosinophils/100 WBC (Bld) 0.6 % Normal 0.0-6.0 [facility] ([place] Comment on above: Performed By: #### C BC, BMP, ANEU, ADIFF, HFP, GFR ####[address] [address] Lymphocyte, Absolute 0.2 10 3/mcL Low 0.9-4.3 [facility] ([place] Comment on above: Performed By: #### C BC, BMP, ANEU, ADIFF, HFP, GFR ####[address] [address] Lymphocytes/100 WBC (Bld) 3.5 % Low 20.0-40.0 [facility] ([place] Comment on above: Performed By: #### C BC, BMP, ANEU, ADIFF, HFP, GFR ####[address] [address] Monocyte, Absolute 0.8 10 3/mcL Normal 0.1-1.4 [facility] ([place] Comment on above: Performed By: #### C BC, BMP, ANEU, ADIFF, HFP, GFR ####[address] [address] Monocytes/100 WBC (Bld) 11.3 % Normal 2.0-13.0 [facility] ([place] Comment on above: Performed By: #### C BC, BMP, ANEU, ADIFF, HFP, GFR ####[address] [address] Neutrophils/100 WBC (Bld) 84.2 % High 50.0-75.0 [facility] ([place] Comment on above: Performed By: #### C BC, BMP, ANEU, ADIFF, HFP, GFR ####[address] [address] .GFRon 09-21-2023 GFR 38 ml/min/1.73sqm Normal [facility] ([place] Comment on above: Result Comment: GFR Population [...] C BC, BMP, ANEU, ADIFF, HFP, GFR ####[address] [address] GFR Non- 31 ml/min/1.73sqm Normal [facility] ([place] Comment on above: Result Comment: GFR Population [...] C BC, BMP, ANEU, ADIFF, HFP, GFR ####[address] [address] .NEUABSon 09-21-2023 Neutrophil, Absolute 5.7 10 3/mcL Normal 2.3-8.1 [facility] ([place] Comment on above: Performed By: #### C BC, BMP, ANEU, ADIFF, HFP, GFR ####[address] [address] BMPon 09-21-2023 BUN/Creatinine Ratio 16.2 ratio Normal 10.0-22.0 [facility] ([place] Comment on above: Order Comment: Adriana perez for 0501 the morning of patient admission. Performed By: #### C BC, BMP, ANEU, ADIFF, HFP, GFR ####[address] [address] Calcium [Mass/Vol] 8.0 mg/dL Low 8.7-10.4 [facility] ([place] Comment on above: Order Comment: Routi ne for 0501 the morning of patient admission. Performed By: #### C BC, BMP, ANEU, ADIFF, HFP, GFR ####[address] [address] Chloride [Moles/Vol] 108 mmol/L Normal 98-110 [facility] ([place] Comment on above: Order Comment: Routi ne for 0501 the morning of patient admission. Performed By: #### C BC, BMP, ANEU, ADIFF, HFP, GFR ####[address] [address] CO2 [Moles/Vol] 24 mmol/L Normal 22-32 [facility] ([place] Comment on above: Order Comment: Routi ne for 0501 the morning of patient admission. Performed By: #### C BC, BMP, ANEU, ADIFF, HFP, GFR ####[place] [id number] Creatinine [Mass/Vol] 2.04 mg/dL High 0.60-1.40 [facility] ([place] Comment on above: Order Comment: Routi ne for 0501 the morning of patient admission. Performed By: #### C BC, BMP, ANEU, ADIFF, HFP, GFR ####[place] [address] Electrolyte Balance 7.0 mEq/L Normal 4.0-15.0 [facility] ([place] Comment on above: Order Comment: Routi ne for 0501 the morning of patient admission. Performed By: #### C BC, BMP, ANEU, ADIFF, HFP, GFR ####[place] [address] Glucose [Mass/Vol] 127 mg/dL High 82-115 [facility] ([place] Comment on above: Order Comment: Routi ne for 0501 the morning of patient admission. Performed By: #### C BC, BMP, ANEU, ADIFF, HFP, GFR ####[place] [id number] Potassium [Moles/Vol] 4.5 mmol/L Normal 3.5-5.0 [facility] ([place] Comment on above: Order Comment: Routi ne for 0501 the morning of patient admission. Performed By: #### C BC, BMP, ANEU, ADIFF, HFP, GFR ####[place] [address] Sodium [Moles/Vol] 139 mmol/L Normal 136-145 [facility] ([place] Comment on above: Order Comment: Routi ne for 0501 the morning of patient admission. Performed By: #### C BC, BMP, ANEU, ADIFF, HFP, GFR ####[place] [address] Urea nitrogen [Mass/Vol] 33.0 mg/dL High 8.0-22.0 [facility] ([place] Comment on above: Order Comment: Routi ne for 0501 the morning of patient admission. Performed By: #### C BC, BMP, ANEU, ADIFF, HFP, GFR ####[place] [address] CBCon 09-21-2023 Erythrocyte distribution width (RBC) [Ratio] 15.0 % Normal 11.5-15.5 [facility] ([place] Comment on above: Order Comment: Routi ne for 0501 the morning of patient admission. Performed By: #### C BC, BMP, ANEU, ADIFF, HFP, GFR ####[place] [address] Hematocrit (Bld) [Volume fraction] 21.9 % Low 40.0-52.0 [facility] ([place] Comment on above: Order Comment: Routi ne for 0501 the morning of patient admission. Performed By: #### C BC, BMP, ANEU, ADIFF, HFP, GFR ####[place] [address] Hgb 7.3 G/dL Low 13.0-17.5 [facility] ([place] Comment on above: Order Comment: Routi ne for 0501 the morning of patient admission. Performed By: #### C BC, BMP, ANEU, ADIFF, HFP, GFR ####[place] [address] MCH (RBC) [Entitic mass] 30.7 pg Normal 27.0-33.0 [facility] ([place] Comment on above: Order Comment: Routi ne for 0501 the morning of patient admission. Performed By: #### C BC, BMP, ANEU, ADIFF, HFP, GFR ####[place] [address] MCHC 33.3 G/dL Normal 32.0-36.0 [facility] ([place] Comment on above: Order Comment: Routi ne for 0501 the morning of patient admission. Performed By: #### C BC, BMP, ANEU, ADIFF, HFP, GFR ####[place] [address] MCV (RBC) [Entitic vol] 92.0 fL Normal 81.0-100.0 [facility] ([place] Comment on above: Order Comment: Routi ne for 0501 the morning of patient admission. Performed By: #### C BC, BMP, ANEU, ADIFF, HFP, GFR ####[place] [address] Platelet 161 10 3/mcL Normal 150-450 [facility] ([place] Comment on above: Order Comment: Routi ne for 0501 the morning of patient admission. Performed By: #### C BC, BMP, ANEU, ADIFF, HFP, GFR ####[place] [address] Platelet mean volume (Bld) [Entitic vol] 7.2 fL Normal 6.4-10.5 [facility] ([place] Comment on above: Order Comment: Routi ne for 0501 the morning of patient admission. Performed By: #### C BC, BMP, ANEU, ADIFF, HFP, GFR ####[place] [address] RBC 2.38 10 6/mcL Low 4.50-6.00 [facility] ([place] Comment on above: Order Comment: Routi ne for 0501 the morning of patient admission. Performed By: #### C BC, BMP, ANEU, ADIFF, HFP, GFR ####[address] [address] WBC 6.8 10 3/mcL Normal 4.5-10.8 [facility] ([place] Comment on above: Order Comment: Adriana perez for 0501 the morning of patient admission. Performed By: #### C BC, BMP, ANEU, ADIFF, HFP, GFR ####[place] [address] HFPon 09-21-2023 Bili Indirect 0.3 mg/dL Normal 0.1-10.0 [facility] ([place] Comment on above: Performed By: #### C BC, BMP, ANEU, ADIFF, HFP, GFR ####[place] [address] Albumin Level 2.5 G/dL Low 3.2-4.8 [facility] ([place] Comment on above: Performed By: #### C BC, BMP, ANEU, ADIFF, HFP, GFR ####[place] [address] Albumin/Globulin [Mass ratio] 0.9 {ratio} Normal 0.9-1.6 [facility] ([place] Comment on above: Performed By: #### C BC, BMP, ANEU, ADIFF, HFP, GFR ####[place] [address] ALP [Catalytic activity/Vol] 49 U/L Normal 38-126 [facility] ([place] Comment on above: Performed By: #### C BC, BMP, ANEU, ADIFF, HFP, GFR ####[place] [address] ALT [Catalytic activity/Vol] 11 U/L Low 12-55 [facility] ([place] Comment on above: Performed By: #### C BC, BMP, ANEU, ADIFF, HFP, GFR ####[place] [address] AST [Catalytic activity/Vol] 22 U/L Normal 8-34 [facility] ([place] Comment on above: Performed By: #### C BC, BMP, ANEU, ADIFF, HFP, GFR ####[place] [address] Bili Direct 0.1 mg/dL Normal 0.0-0.4 [facility] ([place] Comment on above: Result Comment: Use of this assay is not recommended for patients undergoing treatment with eltrombopag due to the potential for falsely elevated results. Performed By: #### C BC, BMP, ANEU, ADIFF, HFP, GFR ####[place] [address] Bili Total 0.40 mg/dL Normal 0.20-1.20 [facility] ([place] Comment on above: Result Comment: Use of this assay is not recommended for patients undergoing treatment with eltrombopag due to the potential for falsely elevated results. Performed By: #### C BC, BMP, ANEU, ADIFF, HFP, GFR ####[place] [address] [place] [address] Globulin 2.9 G/dL Normal 1.5-3.8 [facility] ([place] Comment on above: Performed By: #### C BC, BMP, ANEU, ADIFF, HFP, GFR ####[place] [address] Total Protein 5.4 G/dL Low 5.7-8.2 [facility] ([place] Comment on above: Result Comment: No te - New Reference Range in effect 20 Performed By: #### C BC, BMP, ANEU, ADIFF, HFP, GFR ####[place] [address] LABORATORYOrdered By: Sally stephenson on 09-21-2023 Blood Glucose Testing Reason Routine (09/21/23 9:39 PM) [facility] Work Phone: LABORATORYOrdered By: [place] [...] [Vol rate/Area] 38 ml/min/1.73sqm Invalid Interpretation Code Better Weekdays Chemistry S Comment on above: Interpretive Data: [...] [Vol rate/Area] 31 ml/min/1.73sqm Invalid Interpretation Code Better Weekdays Chemistry S Comment on above: Interpretive Data: [...] Lactic Acid Lvl 1.1 mmol/L Normal 0.2-2.0 [facility] ([place] Comment on above: Performed By: #### L AC ####[place] [address] No Panel Informationon 09-21 Microscopic examination of blood, culture Culture has been received in lab and is no growth to date. Routine cultures are held for 5 days. [facility] Work Phone: XR RETROGRADE PYELOGRAMon XR RETROGRADE PYELOGRAM Normal [facility] ([place]) .Auto Diffon 09-20-2023 Basophil, Absolute 0.0 10 3/mcL Normal 0.0-0.2 [facility] ([place]) Comment on above: Performed By: #### C HEBER BACON, ERICK, ADIFF, GFR, ANEU ####[id number] [place], [place] [address] Basophils/100 WBC (Bld) 0.4 % Normal 0.0-2.5 [facility] ([place] Comment on above: Performed By: #### C HEBER BACON, ERICK, ADIFF, GFR, ANEU ####[address] [place], [place] [address] Eosinophil, Absolute 0.1 10 3/mcL Normal 0.0-0.4 [facility] ([place] Comment on above: Performed By: #### C HEBER BACON, ERICK, ADIFF, GFR, ANEU ####[address] [place], [place] [address] Eosinophils/100 WBC (Bld) 2.4 % Normal 0.0-7.0 [facility] ([place] Comment on above: Performed By: #### C HEBER BACON MDW, ADIFF, GFR, ANEU ####[address] [place], [place] [address] Lymphocyte, Absolute 0.3 10 3/mcL Low 0.8-3.9 [facility] ([place] Comment on above: Performed By: #### C HEBER BACON, ERICK, ADIFF, GFR, ANEU ####[address] [place], [place] [address] Lymphocytes/100 WBC (Bld) 5.4 % Low 10.0-50.0 [facility] ([place] Comment on above: Performed By: #### C HEBER BACONERICK, ADIFF, GFR, ANEU ####[address] [place], [place] [address] Monocyte, Absolute 0.5 10 3/mcL Normal 0.2-1.0 [facility] ([place] Comment on above: Performed By: #### C HEBER BACON, ERICK, ADIFF, GFR, ANEU ####[address] [place], [place] [address] Monocytes/100 WBC (Bld) 9.9 % Normal 1.7-13.0 [facility] ([place]) Comment on above: Performed By: #### C JORDI, HEBER, ERICK, ADIFF, GFR, ANEU ####[address] [place], [place] [address] Neutrophils/100 WBC (Bld) 81.9 % High 37.0-80.0 [facility] ([place] Comment on above: Performed By: #### C HEBER BACON, ERICK, ADIFF, GFR, ANEU ####[address] [place], [place] [address] .GFRon 09-20-2023 GFR 33 ml/min/1.73sqm Normal [facility] ([place]) Comment on above: Result Comment: GFR [...] HEBER, ERICK, ADIFF, GFR, ANEU ####[address] [place], [place] [address] GFR Non- 27 ml/min/1.73sqm Normal [facility] ([place] Comment on above: Result Comment: GFR Population [...] BACON, ERICK, ADIFF, GFR, ANEU ####[address] [place] [id number] .MDWon 09-20-2023 Monocyte Distribution Width 18.86 Normal 0.00-20.00 [facility] ([place] Comment on above: Result Comment: For ED adult patients suspected of sepsis, MDW<=20.0 does not rule out sepsis or risk of sepsis Performed By: #### C JORDI, HEBER, ERICK, ADIFF, GFR, ANEU ####[address] [place] [id number] .NEUABSon 09-20-2023 Neutrophil, Absolute 4.1 10 3/mcL Normal 2.9-6.2 [facility] ([place] Comment on above: Performed By: #### C HEBER BACON, ERICK, ADIFF, GFR, ANEU ####[address] [place] [id number] .Urinalysis Microscopic (AO) on 09-20-2023 UA Bacteria 3+ /hpf Abnormal [facility] ([place] Comment on above: Performed By: #### U A, UAMICAO ####[address] [place] [id number] UA RBC 15-25 Abnormal None Seen [facility] ([place] Comment on above: Performed By: #### U A, UAMICAO ####[address] [place], [place] [address] UA Squam Epithelial 0-5 Abnormal None Seen [facility] ([place]) Comment on above: Performed By: #### U Kerri UAMICAO ####[address] [place], [place] [address] UA WBC LOADED Abnormal None Seen [facility] ([place]) Comment on above: Performed By: #### U Kerri UAMICAO ####[address] [place], [place] [address] BMPon 09-20-2023 BUN/Creatinine Ratio 17 ratio Normal 7-27 [facility] ([place]) Comment on above: Performed By: #### C HEBER BACON MDW, EZRA, GFR, ANEU ####[address] [place], [place] [address] Calcium [Mass/Vol] 8.8 mg/dL Normal 8.4-10.2 [facility] ([place]) Comment on above: Performed By: #### C HEBER BACON MDW, EZRA, GFR, ANEU ####[address] [place], [place] [address] Chloride [Moles/Vol] 104 mmol/L Normal 98-107 [facility] ([place] Comment on above: Performed By: #### C HEBER BACON MDW, EZRA, GFR, ANEU ####[address] [place], [place] [address] CO2 [Moles/Vol] 24 mmol/L Normal 23-31 [facility] ([place] Comment on above: Performed By: #### C HEBER BACON MDW, EZRA, GFR, ANEU ####[address] [place], [place] [address] Creatinine [Mass/Vol] 2.28 mg/dL High 0.70-1.30 [facility] ([place]) Comment on above: Performed By: #### C HEBER BACON MDW, ADSERGEI, GFR, ANEU ####[address] [place], [place] [address] Electrolyte Balance 13.0 mEq/L Normal 4.0-15.0 [facility] ([place]) Comment on above: Performed By: #### C JORDI, HEBER, ERICK, ADIFF, GFR, ANEU ####[address] [place], [place] [address] Glucose [Mass/Vol] 191 mg/dL High 83-110 [facility] ([place] Comment on above: Performed By: #### C JORDI, HEBER, ERICK, ADIFF, GFR, ANEU ####[address] [place], [place] [address] Potassium [Moles/Vol] 4.7 mmol/L Normal 3.5-5.1 [facility] ([place] Comment on above: Performed By: #### C JORDI, HEBER, ERICK, ADIFF, GFR, ANEU ####[address] [place], [place] [address] Sodium [Moles/Vol] 141 mmol/L Normal 136-145 [facility] ([place] Comment on above: Performed By: #### C HEBER BACON, ERICK, ADIFF, GFR, ANEU ####[address] [place], [place] [address] Urea nitrogen [Mass/Vol] 39 mg/dL High 7-18 [facility] ([place] Comment on above: Performed By: #### C HEBER BACON, ERICK, ADIFF, GFR, ANEU ####[address] [place], [place] [address] CBCon 09-20-2023 Erythrocyte distribution width (RBC) [Ratio] 15.4 % High 11.5-14.5 [facility] ([place] Comment on above: Performed By: #### C JORDI, HEBER, ERICK, ADIFF, GFR, ANEU ####[address] [place], [place] [address] Hematocrit (Bld) [Volume fraction] 26.6 % Low 42.0-52.0 [facility] ([place] Comment on above: Performed By: #### C JORDI, HEBER, ERICK, ADIFF, GFR, ANEU ####[address] [place], [place] [address] Hgb 9.0 G/dL Low 14.0-18.0 [facility] ([place] Comment on above: Performed By: #### C JORDI, HEBER, ERICK, ADIFF, GFR, ANEU ####[address] [place], [place] [address] MCH (RBC) [Entitic mass] 31.0 pg Normal 27.0-31.2 [facility] ([place] Comment on above: Performed By: #### C JORDI, HEBER, ERICK, ADIFF, GFR, ANEU ####[address] [place], [place] [address] MCHC 33.9 G/dL Normal 31.8-35.4 [facility] ([place] Comment on above: Performed By: #### C HEBER BACON, ERICK, ADIFF, GFR, ANEU ####[address] [place], [place] [address] MCV (RBC) [Entitic vol] 91.3 fL Normal 80.0-94.0 [facility] ([place] Comment on above: Performed By: #### C HEBER BACON, ERICK, ADIFF, GFR, ANEU ####[address] [place], [place] [address] Platelet 198 10 3/mcL Normal 130-400 [facility] ([place] Comment on above: Performed By: #### C HEBER BACON, ERICK, ADIFF, GFR, ANEU ####[address] [place], [place] [address] Platelet mean volume (Bld) [Entitic vol] 6.7 fL Low 7.4-10.4 [facility] ([place] Comment on above: Performed By: #### C JORDI, HEBER, ERICK, ADIFF, GFR, ANEU ####[address] [place], [place] [address] RBC 2.91 10 6/mcL Low 4.04-6.13 [facility] ([place] Comment on above: Performed By: #### C JORDI, HEBER, ERICK, ADIFF, GFR, ANEU ####[address] [place], [place] [address] WBC 5.1 10 3/mcL Normal 4.6-10.8 [facility] ([place] Comment on above: Performed By: #### C JORDI, HEBER, ERICK, EZRA, GFR, ANEU ####[address] [place], [place] [address] CT ABDOMEN/PELVIS W/O CONTRA STon 09-20-2023 CT ABDOMEN/PELVIS W/O CONTRAST Normal [facility] ([place] LABORATORYOrdered By: SYSTEM SYSTEM on 09-20-2023 Basophil, [...] Lactic Acid Lvl 1.2 mmol/L Normal 0.4-2.0 [facility] ([place] Comment on above: Performed By: #### L AC ####[address] [place], [place] [address] UAon 09-20-2023 Color (U) Yellow Normal [facility] ([place] Comment on above: Performed By: #### U A, UAMICAO ####[address] [place], [place] [address] Glucose (U) [Mass/Vol] Negative Normal Negative [facility] ([place]) Comment on above: Performed By: #### U A, UAMICAO ####[address] [place], [place] [address] Ketones Ql (U) Negative Normal Negative [facility] ([place] Comment on above: Performed By: #### U A, UAMICAO ####[address] [place], [place] [address] UA Appear Cloudy Abnormal Clear [facility] ([place] Comment on above: Performed By: #### U A, UAMICAO ####[address] [place], [place] [address] UA Blood Moderate Abnormal Negative [facility] ([place] Comment on above: Performed By: #### U A, UAMICAO ####[address] [place], [place] [address] UA Leuk Est Moderate Abnormal Negative [facility] ([place] Comment on above: Performed By: #### U A, UAMICAO ####[address] [place], [place] [address] UA Nitrite Negative Normal Negative [facility] ([place] Comment on above: Performed By: #### U A, UAMICAO ####[address] [place] [address] UA pH 5.5 Normal 5.0 - 8.0 [facility] ([place] Comment on above: Performed By: #### U A, UAMICAO ####[address] [place] [address] UA Protein 30 mg/dL Normal Negative [facility] ([place] Comment on above: Performed By: #### U A, UAMICAO ####[address] [place], [place] [address] UA Spec Grav 1.020 Normal 1.015-1.025 [facility] ([place] Comment on above: Performed By: #### U A, UAMICAO ####[address] [place], [place] [address] UA Specimen Type Clean Catch Normal [facility] ([place] Comment on above: Performed By: #### U A, UAMICAO ####[address] [place], [place] [address] UA Urobilinogen 0.2 E.U./dL Normal 0.2-1.0 [facility] ([place] Comment on above: Performed By: #### U A, UAMICAO ####[address] [place], [place] [address] Urobilinogen (U) [Mass/Vol] Negative Normal Negative [facility] ([place] Comment on above: Performed By: #### U A, UAMICAO ####[facility] [place], [place] [address] .Auto Diffon 09-06-2023 Basophil, Absolute 0.0 10 3/mcL Normal 0.0-0.3 [facility] ([place]) Comment on above: Performed By: #### M DW, GFR, ADIFF, CBC, BMP, ANEU, TROPHS ####[address] [address] Basophils/100 WBC (Bld) 0.6 % Normal 0.0-2.5 [facility] ([place] Comment on above: Performed By: #### M DW, GFR, ADIFF, CBC, BMP, ANEU, TROPHS ####[address] [address] Eosinophil, Absolute 0.3 10 3/mcL Normal 0.0-0.7 [facility] ([place] Comment on above: Performed By: #### M DW, GFR, ADIFF, CBC, BMP, ANEU, TROPHS ####[address] [address] Eosinophils/100 WBC (Bld) 6.7 % High 0.0-6.0 [facility] ([place] Comment on above: Performed By: #### M DW, GFR, ADIFF, CBC, BMP, ANEU, TROPHS ####[address] [address] Lymphocyte, Absolute 0.4 10 3/mcL Low 0.9-4.3 [facility] ([place] Comment on above: Performed By: #### M DW, GFR, ADIFF, CBC, BMP, ANEU, TROPHS ####[address] [address] Lymphocytes/100 WBC (Bld) 9.9 % Low 20.0-40.0 [facility] ([place] Comment on above: Performed By: #### M DW, GFR, ADIFF, CBC, BMP, ANEU, TROPHS ####[address] [address] Monocyte, Absolute 0.6 10 3/mcL Normal 0.1-1.4 [facility] ([place] Comment on above: Performed By: #### M DW, GFR, ADIFF, CBC, BMP, ANEU, TROPHS ####[address] [address] Monocytes/100 WBC (Bld) 14.0 % High 2.0-13.0 [facility] ([place] Comment on above: Performed By: #### M DW, GFR, ADIFF, CBC, BMP, ANEU, TROPHS ####[address] [address] Neutrophils/100 WBC (Bld) 68.8 % Normal 50.0-75.0 [facility] ([place] Comment on above: Performed By: #### M DW, GFR, ADIFF, CBC, BMP, ANEU, TROPHS ####[address] [address] .GFRon 09-06-2023 GFR >60 Normal [facility] ([place] Comment on above: Result Comment: GFR Population [...] DW, GFR, ADIFF, CBC, BMP, ANEU, TROPHS ####[address] [address] GFR Non- 52 ml/min/1.73sqm Normal [facility] ([place] Comment on above: Result Comment: GFR Population [...] DW, GFR, ADIFF, CBC, BMP, ANEU, TROPHS ####[place] [address] .MDWon 09-06-2023 Monocyte Distribution Width 18.77 Normal 0.00-20.00 [facility] ([place] Comment on above: Result Comment: For ED adult patients suspected of sepsis, MDW<=20.0 does not rule out sepsis or risk of sepsis Performed By: #### M DW, GFR, ADIFF, CBC, BMP, ANEU, TROPHS ####[place] [address] .NEUABSon 09-06-2023 Neutrophil, Absolute 2.7 10 3/mcL Normal 2.3-8.1 [facility] ([place] Comment on above: Performed By: #### M DW, GFR, ADIFF, CBC, BMP, ANEU, TROPHS ####[place] [address] BMPon 09-06-2023 BUN/Creatinine Ratio 20.6 ratio Normal 10.0-22.0 [facility] ([place] Comment on above: Performed By: #### M DW, GFR, ADIFF, CBC, BMP, ANEU, TROPHS ####[place] [address] Calcium [Mass/Vol] 9.9 mg/dL Normal 8.7-10.4 [facility] ([place] Comment on above: Performed By: #### M DW, GFR, ADIFF, CBC, BMP, ANEU, TROPHS ####[place] [address] Chloride [Moles/Vol] 108 mmol/L Normal 98-110 [facility] ([place] Comment on above: Performed By: #### M DW, GFR, ADIFF, CBC, BMP, ANEU, TROPHS ####[address] [address] CO2 [Moles/Vol] 27 mmol/L Normal 22-32 [facility] ([place] Comment on above: Performed By: #### M DW, GFR, ADIFF, CBC, BMP, ANEU, TROPHS ####[address] [address] Creatinine [Mass/Vol] 1.31 mg/dL Normal 0.60-1.40 [facility] ([place] Comment on above: Performed By: #### M DW, GFR, ADIFF, CBC, BMP, ANEU, TROPHS ####[place] [address] Electrolyte Balance 4.0 mEq/L Normal 4.0-15.0 [facility] ([place]) Comment on above: Performed By: #### M DW, GFR, ADIFF, CBC, BMP, ANEU, TROPHS ####[place] [address] Glucose [Mass/Vol] 96 mg/dL Normal 82-115 [facility] ([place] Comment on above: Performed By: #### M DW, GFR, ADIFF, CBC, BMP, ANEU, TROPHS ####[address] [address] Potassium [Moles/Vol] 4.8 mmol/L Normal 3.5-5.0 [facility] ([place] Comment on above: Result Comment: Spec imen slightly hemolyzed. Performed By: #### M DW, GFR, ADIFF, CBC, BMP, ANEU, TROPHS ####[address] [address] Sodium [Moles/Vol] 139 mmol/L Normal 136-145 [facility] ([place] Comment on above: Performed By: #### M DW, GFR, ADIFF, CBC, BMP, ANEU, TROPHS ####[address] [address] Urea nitrogen [Mass/Vol] 27.0 mg/dL High 8.0-22.0 [facility] ([place] Comment on above: Performed By: #### M DW, GFR, ADIFF, CBC, BMP, ANEU, TROPHS ####[place] [address] CBCon 09-06-2023 Erythrocyte distribution width (RBC) [Ratio] 15.6 % High 11.5-15.5 [facility] ([place] Comment on above: Performed By: #### M DW, GFR, ADIFF, CBC, BMP, ANEU, TROPHS ####[place] [address] Hematocrit (Bld) [Volume fraction] 27.8 % Low 40.0-52.0 [facility] ([place] Comment on above: Performed By: #### M DW, GFR, ADIFF, CBC, BMP, ANEU, TROPHS ####[place] [address] Hgb 9.7 G/dL Low 13.0-17.5 [facility] ([place] Comment on above: Performed By: #### M DW, GFR, ADIFF, CBC, BMP, ANEU, TROPHS ####[place] [address] MCH (RBC) [Entitic mass] 32.1 pg Normal 27.0-33.0 [facility] ([place] Comment on above: Performed By: #### M DW, GFR, ADIFF, CBC, BMP, ANEU, TROPHS ####[place] [address] MCHC 34.8 G/dL Normal 32.0-36.0 [facility] ([place] Comment on above: Performed By: #### M DW, GFR, ADIFF, CBC, BMP, ANEU, TROPHS ####[place] [address] MCV (RBC) [Entitic vol] 92.2 fL Normal 81.0-100.0 [facility] ([place] Comment on above: Performed By: #### M DW, GFR, ADIFF, CBC, BMP, ANEU, TROPHS ####[place] [address] Platelet 172 10 3/mcL Normal 150-450 [facility] ([place] Comment on above: Performed By: #### M DW, GFR, ADIFF, CBC, BMP, ANEU, TROPHS ####[place] [address] Platelet mean volume (Bld) [Entitic vol] 6.8 fL Normal 6.4-10.5 [facility] ([place] Comment on above: Performed By: #### M DW, GFR, ADIFF, CBC, BMP, ANEU, TROPHS ####[place] [address] RBC 3.01 10 6/mcL Low 4.50-6.00 [facility] ([place] Comment on above: Performed By: #### M DW, GFR, ADIFF, CBC, BMP, ANEU, TROPHS ####[place] [address] WBC 3.9 10 3/mcL Low 4.5-10.8 [facility] ([place] Comment on above: Performed By: #### M DW, GFR, ADIFF, CBC, BMP, ANEU, TROPHS ####[place] [address] LABORATORYOrdered By: SYSTEM SYSTEM on 09-06-2023 Basophils [...] (S/P/Bld) [Vol rate/Area] ml/min/1.73sqm Invalid Interpretation Code [facility] Comment on above: Interpretive Data: GFR Population [...] [Vol rate/Area] 52 ml/min/1.73sqm Invalid Interpretation Code [facility] Comment on above: Interpretive Data: GFR Population [...] I High Sensitivity 10.42 ng/L Normal 0.00-54.00 [facility] ([place] Comment on above: Performed By: #### M DW, GFR, ADIFF, CBC, BMP, ANEU, TROPHS ####[place] [address] [place] [address] XR CHEST 1 VIEWon 09-06-2023 XR CHEST 1 VIEW Normal [facility] ([place]) .Auto Diffon 09-02-2023 Basophil, Absolute 0.0 10 3/mcL Normal 0.0-0.2 [facility] ([place]) Comment on above: Performed By: #### A DIFF, CMP, GFR, ANEU, CBC ####[address] [place], [place] [address] Basophils/100 WBC (Bld) 0.9 % Normal 0.0-2.5 [facility] ([place] Comment on above: Performed By: #### A DIFF, CMP, GFR, ANEU, CBC ####[address] [place], [place] [address] Eosinophil, Absolute 0.3 10 3/mcL Normal 0.0-0.4 [facility] ([place] Comment on above: Performed By: #### A DIFF, CMP, GFR, ANEU, CBC ####[place] [address] [place], [place] [address] Eosinophils/100 WBC (Bld) 6.3 % Normal 0.0-7.0 [facility] ([place] Comment on above: Performed By: #### A DIFF, CMP, GFR, ANEU, CBC ####[address] [place], [place] [address] Lymphocyte, Absolute 0.4 10 3/mcL Low 0.8-3.9 [facility] ([place] Comment on above: Performed By: #### A DIFF, CMP, GFR, ANEU, CBC ####[address] [place], [place] [address] Lymphocytes/100 WBC (Bld) 8.3 % Low 10.0-50.0 [facility] ([place] Comment on above: Performed By: #### A DIFF, CMP, GFR, ANEU, CBC ####[address] [place], [place] [address] Monocyte, Absolute 0.6 10 3/mcL Normal 0.2-1.0 [facility] ([place] Comment on above: Performed By: #### A DIFF, CMP, GFR, ANEU, CBC ####[address] [place], [place] [address] Monocytes/100 WBC (Bld) 13.7 % High 1.7-13.0 [facility] ([place] Comment on above: Performed By: #### A DIFF, CMP, GFR, ANEU, CBC ####[address] [place], [place] [address] Neutrophils/100 WBC (Bld) 70.8 % Normal 37.0-80.0 [facility] ([place] Comment on above: Performed By: #### A DIFF, CMP, GFR, ANEU, CBC ####[address] [place], [place] [address] .GFRon 09-02-2023 GFR 51 ml/min/1.73sqm Normal [facility] ([place] Comment on above: Result Comment: GFR Population [...] A DIFF, CMP, GFR, ANEU, CBC ####[address] [place], [place] [address] GFR Non- 42 ml/min/1.73sqm Normal [facility] ([place] Comment on above: Result Comment: GFR Population [...] DIFF, CMP, GFR, ANEU, CBC ####[address] [place], [place] [address] .NEUABSon 09-02-2023 Neutrophil, Absolute 3.3 10 3/mcL Normal 2.9-6.2 [facility] ([place] Comment on above: Performed By: #### A DIFF, CMP, GFR, ANEU, CBC ####[address] [place], [place] [address] CBCon 09-02-2023 Erythrocyte distribution width (RBC) [Ratio] 15.5 % High 11.5-14.5 [facility] ([place] Comment on above: Performed By: #### A DIFF, CMP, GFR, ANEU, CBC ####[address] [place], [place] [address] Hematocrit (Bld) [Volume fraction] 29.2 % Low 42.0-52.0 [facility] ([place] Comment on above: Performed By: #### A DIFF, CMP, GFR, ANEU, CBC ####[address] [place], [place] [address] Hgb 9.7 G/dL Low 14.0-18.0 [facility] ([place] Comment on above: Performed By: #### A DIFF, CMP, GFR, ANEU, CBC ####[address] [place], [place] [address] MCH (RBC) [Entitic mass] 30.5 pg Normal 27.0-31.2 [facility] ([place] Comment on above: Performed By: #### A DIFF, CMP, GFR, ANEU, CBC ####[address] [place], [place] [address] MCHC 33.3 G/dL Normal 31.8-35.4 [facility] ([place] Comment on above: Performed By: #### A DIFF, CMP, GFR, ANEU, CBC ####[address] [place], [place] [address] MCV (RBC) [Entitic vol] 91.7 fL Normal 80.0-94.0 [facility] ([place] Comment on above: Performed By: #### A DIFF, CMP, GFR, ANEU, CBC ####[address] [place], [place] [address] Platelet 170 10 3/mcL Normal 130-400 [facility] ([place] Comment on above: Performed By: #### A DIFF, CMP, GFR, ANEU, CBC ####[address] [place], [place] [address] Platelet mean volume (Bld) [Entitic vol] 7.1 fL Low 7.4-10.4 [facility] ([place] Comment on above: Performed By: #### A DIFF, CMP, GFR, ANEU, CBC ####[address] [place], [place] [address] RBC 3.18 10 6/mcL Low 4.04-6.13 [facility] ([place] Comment on above: Performed By: #### A DIFF, CMP, GFR, ANEU, CBC ####[address] [place], [place] [address] WBC 4.7 10 3/mcL Normal 4.6-10.8 [facility] ([place] Comment on above: Performed By: #### A DIFF, CMP, GFR, ANEU, CBC ####[address] [place], [place] [address] CMPon 09-02-2023 Albumin Level 3.4 G/dL Normal 3.4-4.8 [facility] ([place] Comment on above: Performed By: #### A DIFF, CMP, GFR, ANEU, CBC ####[address] [place], [place] [address] Albumin/Globulin [Mass ratio] 1.0 {ratio} Low 1.1-2.5 [facility] ([place] Comment on above: Performed By: #### A DIFF, CMP, GFR, ANEU, CBC ####[address] [place], [place] [address] ALP [Catalytic activity/Vol] 65 U/L Normal 40-135 [facility] ([place] Comment on above: Performed By: #### A DIFF, CMP, GFR, ANEU, CBC ####[address] [place], [place] [address] ALT [Catalytic activity/Vol] 27 U/L Normal 16-63 [facility] ([place] Comment on above: Performed By: #### A DIFF, CMP, GFR, ANEU, CBC ####[address] [place], [place] [address] AST [Catalytic activity/Vol] 27 U/L Normal 10-40 [facility] ([place] Comment on above: Performed By: #### A DIFF, CMP, GFR, ANEU, CBC ####[address] [place], [place] [address] Bili Total 0.3 mg/dL Normal 0.2-1.0 [facility] ([place] Comment on above: Result Comment: Use of this assay is not recommended for patients undergoing treatment with eltrombopag due to the potential for falsely elevated results. Performed By: #### A DIFF, CMP, GFR, ANEU, CBC ####[address] [place], [place] [address] BUN/Creatinine Ratio 22 ratio Normal 7-27 [facility] ([place]) Comment on above: Performed By: #### A DIFF, CMP, GFR, ANEU, CBC ####[address] [place], [place] [address] Calcium [Mass/Vol] 9.2 mg/dL Normal 8.4-10.2 [facility] ([place]) Comment on above: Performed By: #### A DIFF, CMP, GFR, ANEU, CBC ####[address] [place], [place] [address] Chloride [Moles/Vol] 104 mmol/L Normal 98-107 [facility] ([place] Comment on above: Performed By: #### A DIFF, CMP, GFR, ANEU, CBC ####[address] [place], [place] [address] CO2 [Moles/Vol] 28 mmol/L Normal 23-31 [facility] ([place] Comment on above: Performed By: #### A DIFF, CMP, GFR, ANEU, CBC ####[address] [place], [place] [address] Creatinine [Mass/Vol] 1.56 mg/dL High 0.70-1.30 [facility] ([place] Comment on above: Performed By: #### A DIFF, CMP, GFR, ANEU, CBC ####[address] [place], [place] [address] Electrolyte Balance 8.0 mEq/L Normal 4.0-15.0 [facility] ([place]) Comment on above: Performed By: #### A DIFF, CMP, GFR, ANEU, CBC ####[address] [place], [place] [address] Globulin 3.5 G/dL Normal [facility] ([place] Comment on above: Performed By: #### A DIFF, CMP, GFR, ANEU, CBC ####[address] [place], [place] [address] Glucose [Mass/Vol] 140 mg/dL High 83-110 [facility] ([place] Comment on above: Performed By: #### A DIFF, CMP, GFR, ANEU, CBC ####[address] [place], [place] [address] Potassium [Moles/Vol] 5.0 mmol/L Normal 3.5-5.1 [facility] ([place] Comment on above: Performed By: #### A DIFF, CMP, GFR, ANEU, CBC ####[address] [place], [place] [address] Sodium [Moles/Vol] 140 mmol/L Normal 136-145 [facility] ([place] Comment on above: Performed By: #### A DIFF, CMP, GFR, ANEU, CBC ####[address] [place], [place] [address] Total Protein 6.9 G/dL Normal 6.4-8.2 [facility] ([place] Comment on above: Performed By: #### A DIFF, CMP, GFR, ANEU, CBC ####[address] [place], [place] [address] Urea nitrogen [Mass/Vol] 34 mg/dL High 7-18 [facility] ([place] Comment on above: Performed By: #### A DIFF, CMP, GFR, ANEU, CBC ####[address] [place], [place] [address] LABORATORYOrdered By: SYSTEM SYSTEM on 09-02-2023 Albumin [...] Basophil, Absolute 0.0 10 3/mcL Normal 0.0-0.2 [facility] ([place] Comment on above: Performed By: #### C ERICK BACON, LIANG, GFR, ADIFF, BMP ####[address] [place], [place] [address] Basophils/100 WBC (Bld) 0.8 % Normal 0.0-2.5 [facility] ([place] Comment on above: Performed By: #### ERICK JOHNSON, LIANG, GFR, ADIFF, BMP ####[address] [place], [place] [address] Eosinophil, Absolute 0.2 10 3/mcL Normal 0.0-0.4 [facility] ([place] Comment on above: Performed By: #### ERICK JOHNSON, LIANG, GFR, ADIFF, BMP ####[address] [place], [place] [address] Eosinophils/100 WBC (Bld) 5.4 % Normal 0.0-7.0 [facility] ([place] Comment on above: Performed By: #### ERICK JOHNSON, LIANG, GFR, ADIFF, BMP ####[address] [place], [place] [address] Lymphocyte, Absolute 0.3 10 3/mcL Low 0.8-3.9 [facility] [place] ([place]) Comment on above: Performed By: #### ERICK JOHNSON, ANEU, GFR, ADIFF, BMP ####[address] [place], [place] [address] Lymphocytes/100 WBC (Bld) 8.2 % Low 10.0-50.0 [facility] ([place]) Comment on above: Performed By: #### C ERICK BACON, ANEU, GFR, ADIFF, BMP ####[address] [place], [place] [address] Monocyte, Absolute 0.5 10 3/mcL Normal 0.2-1.0 [facility] ([place]) Comment on above: Performed By: #### C ERICK BACON, ANEU, GFR, ADIFF, BMP ####[address] [place], [place] [address] Monocytes/100 WBC (Bld) 15.5 % High 1.7-13.0 [facility] ([place]) Comment on above: Performed By: #### C ERICK BACON, LIANG, GFR, ADIFF, BMP ####[address] [place], [place] [address] Neutrophils/100 WBC (Bld) 70.1 % Normal 37.0-80.0 [facility] [facility] Comment on above: Performed By: #### C ERICK BACON, ANEU, GFR, ADIFF, BMP ####[address] [place], [place] [address] .GFRon 08-28-2023 GFR 34 ml/min/1.73sqm Normal [facility] ([place]) Comment on above: Result Comment: GFR Population [...] BACON, LIANG, GFR, ADIFF, BMP ####[address] [place], [place] [address] GFR Non- 28 ml/min/1.73sqm Normal [facility] ([place]) Comment on above: Result Comment: GFR Population [...] BACON, ANEU, GFR, ADIFF, BMP ####[address] [place], [place] [address] .MDWon 08-28-2023 Monocyte Distribution Width 19.90 Normal 0.00-20.00 [facility] ([place]) Comment on above: Result Comment: For ED adult patients suspected of sepsis, MDW<=20.0 does not rule out sepsis or risk of sepsis Performed By: #### C ERICK BACON, LIANG, GFR, ADIFF, BMP ####[address] [place], [place] [address] .NEUABSon 08-28-2023 Neutrophil, Absolute 2.4 10 3/mcL Low 2.9-6.2 [facility] ([place]) Comment on above: Performed By: #### C ERICK BACON, LIANG, GFR, ADIFF, BMP ####[address] [place], [place] [address] BMPon 08-28-2023 BUN/Creatinine Ratio 21 ratio Normal 7-27 [facility] ([place]) Comment on above: Performed By: #### C ERICK BACON, ANEU, GFR, ADIFF, BMP ####[address] [place], [place] [address] Calcium [Mass/Vol] 8.9 mg/dL Normal 8.4-10.2 [facility] ([place]) Comment on above: Performed By: #### C ERICK BACON, LIANG, GFR, ADIFF, BMP ####[address] [place], [place] [address] Chloride [Moles/Vol] 103 mmol/L Normal 98-107 [facility] ([place]) Comment on above: Performed By: #### C ERICK BACON, LIANG, GFR, ADIFF, BMP ####[address] [place], [place] [address] CO2 [Moles/Vol] 25 mmol/L Normal 23-31 [facility] ([place] Comment on above: Performed By: #### C ERICK BACON, LIANG, GFR, ADIFF, BMP ####[address] [place], [place] [address] Creatinine [Mass/Vol] 2.26 mg/dL High 0.70-1.30 [facility] ([place]) Comment on above: Performed By: #### ERICK JOHNSON, LIANG, GFR, ADIFF, BMP ####[address] [place], [place] [address] Electrolyte Balance 11.0 mEq/L Normal 4.0-15.0 [facility] ([place]) Comment on above: Performed By: #### ERICK JOHNSON, LIANG, GFR, ADIFF, BMP ####[address] [place], [place] [address] Glucose [Mass/Vol] 164 mg/dL High 83-110 [facility] ([place]) Comment on above: Performed By: #### ERICK JOHNSON, LIANG, GFR, ADIFF, BMP ####[address] [place], [place] [address] Potassium [Moles/Vol] 4.8 mmol/L Normal 3.5-5.1 [facility] ([place] Comment on above: Performed By: #### ERICK JOHNSON, LIANG, GFR, ADIFF, BMP ####[address] [place], [place] [address] Sodium [Moles/Vol] 139 mmol/L Normal 136-145 [facility] ([place]) Comment on above: Performed By: #### C ERICK BACON ANEU, GFR, ADIFF, BMP ####[address] [place], [place] [address] Urea nitrogen [Mass/Vol] 48 mg/dL High 7-18 [facility] ([place] Comment on above: Performed By: #### C ERICK BACON ANEU, GFR, ADIFF, BMP ####[address] [place], [place] [address] CBCon 08-28-2023 Erythrocyte distribution width (RBC) [Ratio] 15.7 % High 11.5-14.5 [facility] ([place] Comment on above: Performed By: #### C ERICK BACON ANEU, GFR, ADIFF, BMP ####[address] [place], [place] [address] Hematocrit (Bld) [Volume fraction] 30.0 % Low 42.0-52.0 [facility] ([place] Comment on above: Performed By: #### C ERICK BACON ANEU, GFR, ADIFF, BMP ####[address] [place], [place] [address] Hgb 10.0 G/dL Low 14.0-18.0 [facility] ([place] Comment on above: Performed By: #### C ERICK BACON ANEU, GFR, ADIFF, BMP ####[address] [place], [place] [address] MCH (RBC) [Entitic mass] 30.4 pg Normal 27.0-31.2 [facility] ([place] Comment on above: Performed By: #### C ERICK BACON ANEU, GFR, ADIFF, BMP ####[address] [place], [place] [address] MCHC 33.4 G/dL Normal 31.8-35.4 [facility] ([place] Comment on above: Performed By: #### C ERICK BACON, LIANG, GFR, ADIFF, BMP ####[address] [place], [place] [address] MCV (RBC) [Entitic vol] 91.2 fL Normal 80.0-94.0 [facility] ([place]) Comment on above: Performed By: #### C ERICK BACON, LIANG, GFR, ADIFF, BMP ####[address] [place], [place] [address] Platelet 148 10 3/mcL Normal 130-400 [facility] ([place]) Comment on above: Performed By: #### ERICK JOHNSON, LIANG, GFR, ADIFF, BMP ####[address] [place], [place] [address] Platelet mean volume (Bld) [Entitic vol] 6.8 fL Low 7.4-10.4 [facility] ([place]) Comment on above: Performed By: #### C ERICK BACON, LIANG, GFR, ADIFF, BMP ####[address] [place], [place] [address] RBC 3.30 10 6/mcL Low 4.04-6.13 [facility] ([place] Comment on above: Performed By: #### ERICK JOHNSON, LIANG, GFR, ADIFF, BMP ####[address] [place], [place] [address] WBC 3.5 10 3/mcL Low 4.6-10.8 [facility] ([place] Comment on above: Performed By: #### ERICK JOHNSON, LIANG, GFR, ADIFF, BMP ####[address] [place], [place] [address] LABORATORYOrdered By: Barbara Hinson on 08-28-2023 Appearance [...] SS UAon 08-28-2023 Color (U) Yellow Normal [facility] ([place] Comment on above: Performed By: #### U A ####[address] [place], [place] [address] Glucose (U) [Mass/Vol] Negative Normal Negative [facility] ([place]) Comment on above: Performed By: #### U A ####[address] [place], [place] [address] Ketones Ql (U) Negative Normal Negative [facility] ([place] Comment on above: Performed By: #### U A ####[address] [place], [place] [address] UA Appear Clear Normal Clear [facility] ([place] Comment on above: Performed By: #### U A ####[address] [place] [address] UA Blood Trace Abnormal Negative [facility] ([place] Comment on above: Performed By: #### U A ####[address] [place] [address] UA Leuk Est Negative Normal Negative [facility] ([place] Comment on above: Performed By: #### U A ####[address] [place], [place] [address] UA Nitrite Negative Normal Negative [facility] ([place] Comment on above: Performed By: #### U A ####[address] [place] [address] UA pH 5.5 Normal 5.0 - 8.0 [facility] ([place] Comment on above: Performed By: #### U A ####[address] [place], [place] [address] UA Protein Negative Normal Negative [facility] ([place] Comment on above: Performed By: #### U A ####[address] [place] [address] UA Spec Grav 1.020 Normal 1.015-1.025 [facility] ([place] Comment on above: Performed By: #### U A ####[address] [place], [place] [address] UA Specimen Type Clean Catch Normal [facility] ([place] Comment on above: Performed By: #### U A ####[address] [place], [place] [address] UA Urobilinogen 0.2 E.U./dL Normal 0.2-1.0 [facility] ([place] Comment on above: Performed By: #### U A ####[address] [place], [place] [address] Urobilinogen (U) [Mass/Vol] Negative Normal Negative [facility] ([place] Comment on above: Performed By: #### U A ####[address] [place], [place] [address] US ABDOMEN LIMITEDon 023 US ABDOMEN LIMITED Normal [facility] ([place]) .Auto Diffon 06-20-2023 Basophil, Absolute 0.0 10 3/mcL Normal 0.0-0.3 [facility] ([place]) Comment on above: Performed By: #### C BC, PSA, ADIFF, CMP, ANEU, LD, GFR ####[address] [address] Basophils/100 WBC (Bld) 1.1 % Normal 0.0-2.5 [facility] ([place] Comment on above: Performed By: #### C BC, PSA, ADIFF, CMP, ANEU, LD, GFR ####[address] [address] Eosinophil, Absolute 0.3 10 3/mcL Normal 0.0-0.7 [facility] ([place]) Comment on above: Performed By: #### C BC, PSA, ADIFF, CMP, ANEU, LD, GFR ####[address] [address] Eosinophils/100 WBC (Bld) 8.9 % High 0.0-6.0 [facility] ([place] Comment on above: Performed By: #### C BC, PSA, ADIFF, CMP, ANEU, LD, GFR ####[address] [address] Lymphocyte, Absolute 0.3 10 3/mcL Low 0.9-4.3 [facility] ([place] Comment on above: Performed By: #### C BC, PSA, ADIFF, CMP, ANEU, LD, GFR ####[address] [address] Lymphocytes/100 WBC (Bld) 10.7 % Low 20.0-40.0 [facility] ([place] Comment on above: Performed By: #### C BC, PSA, ADIFF, CMP, ANEU, LD, GFR ####[address] [address] Monocyte, Absolute 0.4 10 3/mcL Normal 0.1-1.4 [facility] ([place] Comment on above: Performed By: #### C BC, PSA, ADIFF, CMP, ANEU, LD, GFR ####[address] [address] Monocytes/100 WBC (Bld) 15.6 % High 2.0-13.0 [facility] ([place] Comment on above: Performed By: #### C BC, PSA, ADIFF, CMP, ANEU, LD, GFR ####[address] [address] Neutrophils/100 WBC (Bld) 63.7 % Normal 50.0-75.0 [facility] ([place] Comment on above: Performed By: #### C BC, PSA, ADIFF, CMP, ANEU, LD, GFR ####[address] [address] .GFRon 06-20-2023 GFR Non- >60 Normal [facility] ([place] Comment on above: Result Comment: GFR Population [...] BC, PSA, ADIFF, CMP, ANEU, LD, GFR ####[address] [address] GFR >60 Normal [facility] ([place] Comment on above: Result Comment: GFR Population [...] BC, PSA, ADIFF, CMP, ANEU, LD, GFR ####[place] [address] .NEUABSon 06-20-2023 Neutrophil, Absolute 1.8 10 3/mcL Low 2.3-8.1 [facility] ([place] Comment on above: Performed By: #### C BC, PSA, ADIFF, CMP, ANEU, LD, GFR ####[place] [address] CBCon 06-20-2023 Erythrocyte distribution width (RBC) [Ratio] 14.4 % Normal 11.5-15.5 [facility] ([place] Comment on above: Performed By: #### C BC, PSA, ADIFF, CMP, ANEU, LD, GFR ####[place] [address] Hematocrit (Bld) [Volume fraction] 33.6 % Low 40.0-52.0 [facility] ([place] Comment on above: Performed By: #### C BC, PSA, ADIFF, CMP, ANEU, LD, GFR ####[place] [address] Hgb 11.1 G/dL Low 13.0-17.5 [facility] ([place] Comment on above: Performed By: #### C BC, PSA, ADIFF, CMP, ANEU, LD, GFR ####[place] [address] MCH (RBC) [Entitic mass] 29.8 pg Normal 27.0-33.0 [facility] ([place] Comment on above: Performed By: #### C BC, PSA, ADIFF, CMP, ANEU, LD, GFR ####[place] [address] MCHC 32.9 G/dL Normal 32.0-36.0 [facility] ([place] Comment on above: Performed By: #### C BC, PSA, ADIFF, CMP, ANEU, LD, GFR ####[place] [address] MCV (RBC) [Entitic vol] 90.5 fL Normal 81.0-100.0 [facility] ([place] Comment on above: Performed By: #### C BC, PSA, ADIFF, CMP, ANEU, LD, GFR ####[place] [address] Platelet 129 10 3/mcL Low 150-450 [facility] ([place] Comment on above: Performed By: #### C BC, PSA, ADIFF, CMP, ANEU, LD, GFR ####[place] [address] Platelet mean volume (Bld) [Entitic vol] 7.2 fL Normal 6.4-10.5 [facility] ([place] Comment on above: Performed By: #### C BC, PSA, ADIFF, CMP, ANEU, LD, GFR ####[place] [address] RBC 3.72 10 6/mcL Low 4.50-6.00 [facility] ([place] Comment on above: Performed By: #### C BC, PSA, ADIFF, CMP, ANEU, LD, GFR ####[place] [address] WBC 2.8 10 3/mcL Low 4.5-10.8 [facility] ([place] Comment on above: Performed By: #### C BC, PSA, ADIFF, CMP, ANEU, LD, GFR ####[place] [address] CMPon 06-20-2023 Albumin Level 3.4 G/dL Normal 3.2-4.8 [facility] ([place] Comment on above: Performed By: #### C BC, PSA, ADIFF, CMP, ANEU, LD, GFR ####[address] [address] Albumin/Globulin [Mass ratio] 1.0 {ratio} Normal 0.9-1.6 [facility] ([place] Comment on above: Performed By: #### C BC, PSA, ADIFF, CMP, ANEU, LD, GFR ####[address] [address] ALP [Catalytic activity/Vol] 58 U/L Normal 38-126 [facility] ([place] Comment on above: Performed By: #### C BC, PSA, ADIFF, CMP, ANEU, LD, GFR ####[address] [address] ALT [Catalytic activity/Vol] 20 U/L Normal 12-55 [facility] ([place] Comment on above: Performed By: #### C BC, PSA, ADIFF, CMP, ANEU, LD, GFR ####[address] [address] AST [Catalytic activity/Vol] 30 U/L Normal 8-34 [facility] ([place] Comment on above: Performed By: #### C BC, PSA, ADIFF, CMP, ANEU, LD, GFR ####[address] [address] Bili Total 0.30 mg/dL Normal 0.20-1.20 [facility] ([place] Comment on above: Result Comment: Use of this assay is not recommended for patients undergoing treatment with eltrombopag due to the potential for falsely elevated results. Performed By: #### C BC, PSA, ADIFF, CMP, ANEU, LD, GFR ####[address] [address] BUN/Creatinine Ratio 25.0 ratio High 10.0-22.0 [facility] ([place]) Comment on above: Performed By: #### C BC, PSA, ADIFF, CMP, ANEU, LD, GFR ####[address] [address] Calcium [Mass/Vol] 9.3 mg/dL Normal 8.7-10.4 [facility] ([place]) Comment on above: Performed By: #### C BC, PSA, ADIFF, CMP, ANEU, LD, GFR ####[address] [address] Chloride [Moles/Vol] 107 mmol/L Normal 98-110 [facility] ([place] Comment on above: Performed By: #### C BC, PSA, ADIFF, CMP, ANEU, LD, GFR ####[address] [address] CO2 [Moles/Vol] 27 mmol/L Normal 22-32 [facility] ([place] Comment on above: Performed By: #### C BC, PSA, ADIFF, CMP, ANEU, LD, GFR ####[place] [address] Creatinine [Mass/Vol] 1.12 mg/dL Normal 0.60-1.40 [facility] ([place] Comment on above: Performed By: #### C BC, PSA, ADIFF, CMP, ANEU, LD, GFR ####[place] [address] Electrolyte Balance 4.0 mEq/L Normal 4.0-15.0 [facility] ([place]) Comment on above: Performed By: #### C BC, PSA, ADIFF, CMP, ANEU, LD, GFR ####[place] [id number] Globulin 3.5 G/dL Normal 1.5-3.8 [facility] ([place] Comment on above: Performed By: #### C BC, PSA, ADIFF, CMP, ANEU, LD, GFR ####[place] [address] Glucose [Mass/Vol] 106 mg/dL Normal 82-115 [facility] ([place]) Comment on above: Performed By: #### C BC, PSA, ADIFF, CMP, ANEU, LD, GFR ####[address] [address] Potassium [Moles/Vol] 4.4 mmol/L Normal 3.5-5.0 [facility] ([place] Comment on above: Result Comment: Spec imen slightly hemolyzed. Performed By: #### C BC, PSA, ADIFF, CMP, ANEU, LD, GFR ####[address] [address] Sodium [Moles/Vol] 138 mmol/L Normal 136-145 [facility] ([place]) Comment on above: Performed By: #### C BC, PSA, ADIFF, CMP, ANEU, LD, GFR ####[place] [address] [place] [address] Total Protein 6.9 G/dL Normal 5.7-8.2 [facility] ([place] Comment on above: Result Comment: No te - New Reference Range in effect 20 Performed By: #### C BC, PSA, ADIFF, CMP, ANEU, LD, GFR ####[address] [address] Urea nitrogen [Mass/Vol] 28.0 mg/dL High 8.0-22.0 [facility] ([place] Comment on above: Performed By: #### C BC, PSA, ADIFF, CMP, ANEU, LD, GFR ####[address] [address] LABORATORYOrdered By: SYSTEM SYSTEM on 06-20-2023 Albumin [...] LDHon 06-20-2023 LDH 240 U/L Normal 120-246 [facility] ([place] Comment on above: Performed By: #### C BC, PSA, ADIFF, CMP, ANEU, LD, GFR ####[place] [address] PSAon 06-20-2023 Prostate Specific Antigen 0.77 ng/mL Normal 0.02-4.00 [facility] ([place] Comment on above: Result Comment: Barbara ent results determined by assays using different manufacturers for methods may not be comparable. Performed By: #### C BC, PSA, ADIFF, CMP, ANEU, LD, GFR ####[place] [address] .GFRon 06-01-2023 GFR Non- 53 ml/min/1.73sqm Normal [facility] ([place] Comment on above: Result Comment: GFR Population [...] B MP, MDW, ADIFF, GFR, CBC, ANEU ####[place] [address] GFR >60 Normal [facility] ([place] Comment on above: Result Comment: GFR Population [...] B ERICK CALVO, EZRA, GFR, CBC, ANEU ####[address] [address] BMPon 06-01-2023 BUN/Creatinine Ratio 21.1 ratio Normal 10.0-22.0 [facility] ([place]) Comment on above: Performed By: #### B ERICK CALVO, EZRA, GFR, CBC, ANEU ####[place] [address] Calcium [Mass/Vol] 10.4 mg/dL Normal 8.7-10.4 [facility] ([place] Comment on above: Performed By: #### B ERICK CALVO, EZRA, GFR, CBC, ANEU ####[place] [address] Chloride [Moles/Vol] 104 mmol/L Normal 98-110 [facility] ([place] Comment on above: Performed By: #### B ERICK CALVO, EZRA, GFR, CBC, ANEU ####[place] [address] CO2 [Moles/Vol] 27 mmol/L Normal 22-32 [facility] ([place] Comment on above: Performed By: #### B ERICK CALVO, EZRA, GFR, CBC, ANEU ####[place] [address] Creatinine [Mass/Vol] 1.28 mg/dL Normal 0.60-1.40 [facility] ([place] Comment on above: Performed By: #### ERICK Chamorro MP, EZRA, GFR, CBC, ANEU ####[place] [address] Electrolyte Balance 6.0 mEq/L Normal 4.0-15.0 [facility] ([place]) Comment on above: Performed By: #### ERICK Chamorro MP, EZRA, GFR, CBC, ANEU ####[place] [address] Glucose [Mass/Vol] 116 mg/dL High 82-115 [facility] ([place] Comment on above: Performed By: #### B ERICK CALVO, ADIFF, GFR, CBC, ANEU ####[facility] [place] [address] Potassium [Moles/Vol] 4.6 mmol/L Normal 3.5-5.0 [facility] ([place] Comment on above: Performed By: #### B ERICK CALVO, EZRA, GFR, CBC, ANEU ####[place] [address] [place] [address] Sodium [Moles/Vol] 137 mmol/L Normal 136-145 [facility] ([place]) Comment on above: Performed By: #### B ERICK CALVO, ADSERGEI, GFR, CBC, ANEU ####[place] [address] [place] [address] Urea nitrogen [Mass/Vol] 27.0 mg/dL High 8.0-22.0 [facility] ([place] Comment on above: Performed By: #### B ERICK CALVO, EZRA, GFR, CBC, ANEU ####[address] [address] [address] ABD/PELVIS W/ IV CONTRAST ONLYon 06-01-2023 CT ABD/PELVIS W/ IV CONTRAST ONLY Normal [facility] ([place]) LABORATORYOrdered By: Sanjuanita Prater on 06-01-2023 Appearance [...] SS UAon 06-01-2023 Color (U) Yellow Normal [facility] ([place] Comment on above: Performed By: #### U A ####[place] [address] Glucose (U) [Mass/Vol] Negative Normal Negative [facility] ([place]) Comment on above: Performed By: #### U A ####[place] [address] Ketones Ql (U) Negative Normal Neg-Trace [facility] ([place] Comment on above: Performed By: #### U A ####[place] [address] UA Appear Clear Normal Clear [facility] ([place] Comment on above: Performed By: #### U A ####[place] [address] UA Blood Negative Normal Neg-Trace [facility] ([place] Comment on above: Performed By: #### U A ####[place] [address] UA Leuk Est Negative Normal Negative [facility] ([place] Comment on above: Performed By: #### U A ####[place] [address] UA Nitrite Negative Normal Negative [facility] ([place] Comment on above: Performed By: #### U A ####[place] [address] UA pH 6.0 Normal 5.0 - 8.0 [facility] ([place] Comment on above: Performed By: #### U A ####[place] [id number] UA Protein Negative Normal Negative [facility] ([place] Comment on above: Performed By: #### U A ####[place] [address] UA Spec Grav >=1.030 Abnormal 1.006-1.029 [facility] ([place] Comment on above: Performed By: #### U A ####[place] [address] UA Specimen Type Clean Catch Normal [facility] ([place] Comment on above: Performed By: #### U A ####[place] [address] UA Urobilinogen 0.2 E.U./dL Normal 0.2-1.0 [facility] ([place] Comment on above: Performed By: #### U A ####[place] [address] Urobilinogen (U) [Mass/Vol] Negative Normal Neg-Trace [facility] ([place] Comment on above: Performed By: #### U A ####[place] [address] .Auto Diffon 05-31-2023 Basophil, Absolute 0.0 10 3/mcL Normal 0.0-0.3 [facility] ([place]) Comment on above: Performed By: #### B ERICK CALVO, ADIFF, GFR, CBC, ANEU ####[place] [address] Basophils/100 WBC (Bld) 0.3 % Normal 0.0-2.5 [facility] ([place] Comment on above: Performed By: #### B ERICK CALVO, ADIFF, GFR, CBC, ANEU ####[place] [address] Eosinophil, Absolute 0.4 10 3/mcL Normal 0.0-0.7 [facility] ([place] Comment on above: Performed By: #### B ERICK CALVO, ADIFF, GFR, CBC, ANEU ####[place] [address] Eosinophils/100 WBC (Bld) 4.1 % Normal 0.0-6.0 [facility] ([place] Comment on above: Performed By: #### B ERICK CALVO, ADIFF, GFR, CBC, ANEU ####[address] [address] Lymphocyte, Absolute 0.8 10 3/mcL Low 0.9-4.3 [facility] ([place] Comment on above: Performed By: #### B LUBNA, ERICK, ADIFF, GFR, CBC, ANEU ####[address] [address] Lymphocytes/100 WBC (Bld) 8.3 % Low 20.0-40.0 [facility] ([place] Comment on above: Performed By: #### B LUBNA, ERICK, ADIFF, GFR, CBC, ANEU ####[address] [address] Monocyte, Absolute 0.8 10 3/mcL Normal 0.1-1.4 [facility] ([place]) Comment on above: Performed By: #### B LUBNA, ERICK, ADIFF, GFR, CBC, ANEU ####[address] [address] Monocytes/100 WBC (Bld) 8.8 % Normal 2.0-13.0 [facility] ([place] Comment on above: Performed By: #### B LUBNA, ERICK, ADIFF, GFR, CBC, ANEU ####[address] [address] Neutrophils/100 WBC (Bld) 78.5 % High 50.0-75.0 [facility] ([place] Comment on above: Performed By: #### B LUBNA, W, ADIFF, GFR, CBC, ANEU ####[address] [address] .MDWon 05-31-2023 Monocyte Distribution Width 17.55 Normal 0.00-20.00 [facility] ([place] Comment on above: Result Comment: For ED adult patients suspected of sepsis, MDW<=20.0 does not rule out sepsis or risk of sepsis Performed By: #### B LUBNA, MDW, ADIFF, GFR, CBC, ANEU ####[place] [address] .NEUABSon 05-31-2023 Neutrophil, Absolute 7.2 10 3/mcL Normal 2.3-8.1 [facility] ([place] Comment on above: Performed By: #### B ERICK CALVO, EZRA, GFR, CBC, ANEU ####[place] [address] CBCon 05-31-2023 Erythrocyte distribution width (RBC) [Ratio] 14.7 % Normal 11.5-15.5 [facility] ([place] Comment on above: Performed By: #### B ERICK CALVO ADIFF, GFR, CBC, ANEU ####[place] [address] Hematocrit (Bld) [Volume fraction] 37.7 % Low 40.0-52.0 [facility] ([place] Comment on above: Performed By: #### B ERICK CALVO ADIFF, GFR, CBC, ANEU ####[place] [address] Hgb 12.4 G/dL Low 13.0-17.5 [facility] ([place] Comment on above: Performed By: #### B ERICK CALVO ADIFF, GFR, CBC, ANEU ####[place] [address] MCH (RBC) [Entitic mass] 29.5 pg Normal 27.0-33.0 [facility] ([place] Comment on above: Performed By: #### B ERICK CALVO ADIFF, GFR, CBC, ANEU ####[place] [address] MCHC 32.9 G/dL Normal 32.0-36.0 [facility] ([place] Comment on above: Performed By: #### B ERICK CALVO ADIFF, GFR, CBC, ANEU ####[place] [address] MCV (RBC) [Entitic vol] 89.8 fL Normal 81.0-100.0 [facility] ([place] Comment on above: Performed By: #### B ERICK CALVO, EZRA, GFR, CBC, ANEU ####[place] [address] Platelet 171 10 3/mcL Normal 150-450 [facility] ([place] Comment on above: Performed By: #### B ERICK CALVO, ADSERGEI, GFR, CBC, ANEU ####[place] [address] Platelet mean volume (Bld) [Entitic vol] 8.1 fL Normal 6.4-10.5 [facility] ([place] Comment on above: Performed By: #### B ERICK CALVO, EZRA, GFR, CBC, ANEU ####[place] [address] RBC 4.20 10 6/mcL Low 4.50-6.00 [facility] ([place] Comment on above: Performed By: #### B ERICK CALVO, EZRA, GFR, CBC, ANEU ####[place] [address] WBC 9.2 10 3/mcL Normal 4.5-10.8 [facility] ([place]) Comment on above: Performed By: #### B ERICK CALVO, ADSERGEI, GFR, CBC, ANEU ####[place] [address] LABORATORYOrdered By: SYSTEM SYSTEM on 05-31-2023 Basophils [...] [Vol rate/Area] 53 ml/min/1.73sqm Invalid Interpretation Code [facility] Comment on above: Interpretive Data: GFR Population [...] Basophil, Absolute 0.1 10 3/mcL Normal 0.0-0.2 [facility] ([place]) Comment on above: Performed By: #### I BC, A1C, FERR, GFR, CBC, CMP, ADIFF, ANEU, FE, LIPID ####[place] [address] [place], [place] [address] Basophils/100 WBC (Bld) 1.4 % Normal 0.0-2.5 [facility] ([place]) Comment on above: Performed By: #### I BC, A1C, FERR, GFR, CBC, CMP, ADIFF, ANEU, FE, LIPID ####[place] [address] [place], [place] [address] Eosinophil, Absolute 0.4 10 3/mcL Normal 0.0-0.4 [facility] ([place]) Comment on above: Performed By: #### I BC, A1C, FERR, GFR, CBC, CMP, ADIFF, ANEU, FE, LIPID ####[address] [place], [place] [address] Eosinophils/100 WBC (Bld) 9.4 % High 0.0-7.0 [facility] ([place] Comment on above: Performed By: #### I BC, A1C, FERR, GFR, CBC, CMP, ADIFF, ANEU, FE, LIPID ####[address] [place], [place] [address] Lymphocyte, Absolute 0.8 10 3/mcL Normal 0.8-3.9 [facility] ([place]) Comment on above: Performed By: #### I BC, A1C, FERR, GFR, CBC, CMP, ADIFF, ANEU, FE, LIPID ####[address] [place], [place] [address] Lymphocytes/100 WBC (Bld) 20.4 % Normal 10.0-50.0 [facility] ([place] Comment on above: Performed By: #### I BC, A1C, FERR, GFR, CBC, CMP, ADIFF, ANEU, FE, LIPID ####[address] [place], [place] [address] Monocyte, Absolute 0.6 10 3/mcL Normal 0.2-1.0 [facility] ([place]) Comment on above: Performed By: #### I BC, A1C, FERR, GFR, CBC, CMP, ADIFF, ANEU, FE, LIPID ####[address] [place], [place] [address] Monocytes/100 WBC (Bld) 15.6 % High 1.7-13.0 [facility] ([place] Comment on above: Performed By: #### I BC, A1C, FERR, GFR, CBC, CMP, ADIFF, ANEU, FE, LIPID ####[address] [place], [place] [address] Neutrophils/100 WBC (Bld) 53.2 % Normal 37.0-80.0 [facility] ([place] Comment on above: Performed By: #### I BC, A1C, FERR, GFR, CBC, CMP, ADIFF, ANEU, FE, LIPID ####[address] [place], [place] [address] .GFRon 05-23-2023 GFR Non- 50 ml/min/1.73sqm Normal [facility] ([place]) Comment on above: Result Comment: GFR [...] CMP, ADIFF, ANEU, FE, LIPID ####[address] [place], [place] [address] GFR 61 ml/min/1.73sqm Normal [facility] ([place]) Comment on above: Result Comment: GFR Population [...] CMP, ADIFF, ANEU, FE, LIPID ####[address] [place], [place] [address] .NEUABSon 05-23-2023 Neutrophil, Absolute 2.1 10 3/mcL Low 2.9-6.2 [facility] ([place]) Comment on above: Performed By: #### I BC, A1C, FERR, GFR, CBC, CMP, ADIFF, ANEU, FE, LIPID ####[address] [place], [place] [address] A1Con 05-23-2023 HbA1c (Bld) [Mass fraction] 6.6 % High 4.3-6.4 [facility] ([place] Comment on above: Performed By: #### I BC, A1C, FERR, GFR, CBC, CMP, ADIFF, ANEU, FE, LIPID ####[address] [place], [place] [address] CBCon 05-23-2023 Erythrocyte distribution width (RBC) [Ratio] 15.3 % High 11.5-14.5 [facility] ([place] Comment on above: Performed By: #### I BC, A1C, FERR, GFR, CBC, CMP, ADIFF, ANEU, FE, LIPID ####[address] [place], [place] [address] Hematocrit (Bld) [Volume fraction] 35.8 % Low 42.0-52.0 [facility] ([place] Comment on above: Performed By: #### I BC, A1C, FERR, GFR, CBC, CMP, ADIFF, ANEU, FE, LIPID ####[address] [place], [place] [address] Hgb 11.9 G/dL Low 14.0-18.0 [facility] ([place] Comment on above: Performed By: #### I BC, A1C, FERR, GFR, CBC, CMP, ADIFF, ANEU, FE, LIPID ####[address] [place], [place] [address] MCH (RBC) [Entitic mass] 29.3 pg Normal 27.0-31.2 [facility] ([place] Comment on above: Performed By: #### I BC, A1C, FERR, GFR, CBC, CMP, ADIFF, ANEU, FE, LIPID ####[address] [place], [place] [address] MCHC 33.4 G/dL Normal 31.8-35.4 [facility] ([place] Comment on above: Performed By: #### I BC, A1C, FERR, GFR, CBC, CMP, ADIFF, ANEU, FE, LIPID ####[address] [place], [place] [address] MCV (RBC) [Entitic vol] 87.9 fL Normal 80.0-94.0 [facility] ([place] Comment on above: Performed By: #### I BC, A1C, FERR, GFR, CBC, CMP, ADIFF, ANEU, FE, LIPID ####[address] [place], [place] [address] Platelet 142 10 3/mcL Normal 130-400 [facility] ([place] Comment on above: Performed By: #### I BC, A1C, FERR, GFR, CBC, CMP, ADIFF, ANEU, FE, LIPID ####[address] [place], [place] [address] Platelet mean volume (Bld) [Entitic vol] 8.1 fL Normal 7.4-10.4 [facility] ([place] Comment on above: Performed By: #### I BC, A1C, FERR, GFR, CBC, CMP, ADIFF, ANEU, FE, LIPID ####[address] [place], [place] [address] RBC 4.07 10 6/mcL Normal 4.04-6.13 [facility] ([place] Comment on above: Performed By: #### I BC, A1C, FERR, GFR, CBC, CMP, ADIFF, ANEU, FE, LIPID ####[address] [place], [place] [address] WBC 4.0 10 3/mcL Low 4.6-10.8 [facility] ([place] Comment on above: Performed By: #### I BC, A1C, FERR, GFR, CBC, CMP, ADIFF, ANEU, FE, LIPID ####[address] [place], [place] [address] CMPon 05-23-2023 Albumin Level 3.8 G/dL Normal 3.4-4.8 [facility] Comment on above: Performed By: #### I BC, A1C, FERR, GFR, CBC, CMP, ADIFF, ANEU, FE, LIPID ####[address] [place], [place] [address] Albumin/Globulin [Mass ratio] 1.1 {ratio} Normal 1.1-2.5 [facility] Comment on above: Performed By: #### I BC, A1C, FERR, GFR, CBC, CMP, ADIFF, ANEU, FE, LIPID ####[address] [place], [place] [address] ALP [Catalytic activity/Vol] 68 U/L Normal 40-135 [facility] ([place] Comment on above: Performed By: #### I BC, A1C, FERR, GFR, CBC, CMP, ADIFF, ANEU, FE, LIPID ####[address] [place], [place] [address] ALT [Catalytic activity/Vol] 27 U/L Normal 16-63 [facility] ([place] Comment on above: Performed By: #### I BC, A1C, FERR, GFR, CBC, CMP, ADIFF, ANEU, FE, LIPID ####[address] [place], [place] [address] AST [Catalytic activity/Vol] 25 U/L Normal 10-40 [facility] ([place] Comment on above: Performed By: #### I BC, A1C, FERR, GFR, CBC, CMP, ADIFF, ANEU, FE, LIPID ####[address] [place], [place] [address] Bili Total 0.3 mg/dL Normal 0.2-1.0 [facility] ([place]) Comment on above: Result Comment: Use of this assay is not recommended for patients undergoing treatment with eltrombopag due to the potential for falsely elevated results. Performed By: #### I BC, A1C, FERR, GFR, CBC, CMP, ADIFF, ANEU, FE, LIPID ####[address] [place], [place] [address] BUN/Creatinine Ratio 23 ratio Normal 7-27 [facility] ([place]) Comment on above: Performed By: #### I BC, A1C, FERR, GFR, CBC, CMP, ADIFF, ANEU, FE, LIPID ####[address] [place], [place] [address] Calcium [Mass/Vol] 9.2 mg/dL Normal 8.4-10.2 [facility] ([place]) Comment on above: Performed By: #### I BC, A1C, FERR, GFR, CBC, CMP, ADIFF, ANEU, FE, LIPID ####[address] [place], [place] [address] Chloride [Moles/Vol] 101 mmol/L Normal 98-107 [facility] ([place]) Comment on above: Performed By: #### I BC, A1C, FERR, GFR, CBC, CMP, ADIFF, ANEU, FE, LIPID ####[address] [place], [place] [address] CO2 [Moles/Vol] 30 mmol/L Normal 23-31 [facility] ([place] Comment on above: Performed By: #### I BC, A1C, FERR, GFR, CBC, CMP, ADIFF, ANEU, FE, LIPID ####[address] [place], [place] [address] Creatinine [Mass/Vol] 1.35 mg/dL High 0.70-1.30 [facility] ([place]) Comment on above: Performed By: #### I BC, A1C, FERR, GFR, CBC, CMP, ADIFF, ANEU, FE, LIPID ####[address] [place], [place] [address] Electrolyte Balance 7.0 mEq/L Normal 4.0-15.0 [facility] ([place]) Comment on above: Performed By: #### I BC, A1C, FERR, GFR, CBC, CMP, ADIFF, ANEU, FE, LIPID ####[address] [place], [place] [address] Globulin 3.6 G/dL Normal [facility] ([place] Comment on above: Performed By: #### I BC, A1C, FERR, GFR, CBC, CMP, ADIFF, ANEU, FE, LIPID ####[address] [place], [place] [address] Glucose [Mass/Vol] 98 mg/dL Normal 83-110 [facility] ([place]) Comment on above: Performed By: #### I BC, A1C, FERR, GFR, CBC, CMP, ADIFF, ANEU, FE, LIPID ####[address] [place], [place] [address] Potassium [Moles/Vol] 5.2 mmol/L High 3.5-5.1 [facility] ([place] Comment on above: Performed By: #### I BC, A1C, FERR, GFR, CBC, CMP, ADIFF, ANEU, FE, LIPID ####[address] [place], [place] [address] Sodium [Moles/Vol] 138 mmol/L Normal 136-145 [facility] ([place]) Comment on above: Performed By: #### I BC, A1C, FERR, GFR, CBC, CMP, ADIFF, ANEU, FE, LIPID ####[address] [place], [place] [address] Total Protein 7.4 G/dL Normal 6.4-8.2 [facility] ([place] Comment on above: Performed By: #### I BC, A1C, FERR, GFR, CBC, CMP, ADIFF, ANEU, FE, LIPID ####[address] [place], [place] [address] Urea nitrogen [Mass/Vol] 31 mg/dL High 03-22 [facility] ([place] Comment on above: Performed By: #### I BC, A1C, FERR, GFR, CBC, CMP, ADIFF, ANEU, FE, LIPID ####[address] [place], [place] [address] FEon 05-23-2023 Iron [Mass/Vol] 75 ug/dL Normal 65-175 [facility] ([place] Comment on above: Performed By: #### I BC, A1C, FERR, GFR, CBC, CMP, ADIFF, ANEU, FE, LIPID ####[address] [place], [place] [address] Mary 05-23-2023 Ferritin [Mass/Vol] 194.0 ng/mL Normal 26.0-388.0 [facility]) Comment on above: Performed By: #### I BC, A1C, FERR, GFR, CBC, CMP, ADIFF, ANEU, FE, LIPID ####[address] [place], [place] [address] IBCon 05-23-2023 TIBC 321 mcg/dL Normal 250-450 [facility] ([place] Comment on above: Performed By: #### I BC, A1C, FERR, GFR, CBC, CMP, ADIFF, ANEU, FE, LIPID ####[address] [place], [place] [address] LABORATORYOrdered By: SYSTEM SYSTEM on 05-23-2023 Albumin [...] 05-23-2023 Cholesterol [Mass/Vol] 238 mg/dL High 0-200 [facility] ([place]) Comment on above: Result Comment: Chol esterol Reference Interval:Less than 200 [id number] Borderline high [id number] and above High risk Performed By: #### I BC, A1C, FERR, GFR, CBC, CMP, ADIFF, ANEU, FE, LIPID ####[address] [place], [place] [address] Cholesterol in HDL [Mass/Vol] 48 mg/dL Normal 40-60 [facility] ([place] Comment on above: Performed By: #### I BC, A1C, FERR, GFR, CBC, CMP, ADIFF, ANEU, FE, LIPID ####[address] [place], [place] [address] Cholesterol in LDL [Mass/Vol] 173 mg/dL High 0-130 [facility] ([place] Comment on above: Performed By: #### I BC, A1C, FERR, GFR, CBC, CMP, ADIFF, ANEU, FE, LIPID ####[address] [place], [place] [address] Triglyceride [Mass/Vol] 87 mg/dL Normal 0-150 [facility] ([place] Comment on above: Result Comment: Trig lyceride Reference Interval:Less than 150 [id number] Borderline high [id number] High [id number] or higher Very high risk Performed By: #### I BC, A1C, FERR, GFR, CBC, CMP, ADIFF, ANEU, FE, LIPID ####[address] [place], [place] [address] LABORATORYOrdered By: SYSTEM SYSTEM on 03-15-2023 Albumin [...] Interpretation Code AO Chemistry S LABORATORYOrdered By: Lavon Ramos on 11-05-2021 Albumin BCP dye [Mass/Vol] [...] LEVOFLOXACIN <2 S MEROPENEM <1 S Normal [facility] Comment on above: Performed By: #### M 100.50668 ####[facility] [id number] [place], [place] [address]Ph# [phone] UA COMPLETEon 09-15-2017 UA APPEARANCE TURBID Normal CLEAR [facility] Comment on above: Performed By: #### L 600.73160, L600.24711 ####[facility] [id number] [place], [place] [address]Mq# [phone] UA BILIRUBIN Negative Normal NEGATIVE [facility] Comment on above: Performed By: #### L 600.80304, L600.26249 ####[facility] [id number] [place], [place] [address]Ci# [phone] UA BLOOD Negative Normal NEGATIVE [facility] Comment on above: Performed By: #### L 600.83739, L600.48573 ####[facility] [id number] [place], [place] [address]Sm# [phone] UA COMMENT UA MICROSCOPIC Normal N [facility] Comment on above: Performed By: #### L 600.26923, L600.59423 ####[facility] [id number] [place], [place] [address]Na# [phone] UA KETONE Negative Normal NEGATIVE [facility] Comment on above: Performed By: #### L 600.16841, L600.73834 ####[facility] [id number] [place] [address]Wm# [phone] UA LK ESTERASE LARGE Normal NEGATIVE [facility] Comment on above: Performed By: #### L 600.15398, L600.71528 ####[facility] [id number] [place] [address]Qx# [phone] UA NITRITE Positive Normal NEGATIVE [facility] Comment on above: Performed By: #### L 600.36485, L600.48677 ####[address] [address]Cv# [phone] UA PH 8.5 Normal 5-6 [facility] Comment on above: Performed By: #### L 600.04132, L600.62440 ####[facility] [id number] [place] [address]Kn# [phone] UA PROTEIN 30 MG/DL Normal NEGATIVE [facility] Comment on above: Performed By: #### L 600.61205, L600.18746 ####[facility] [id number] [place] [address]Ws# [phone] UA SPEC GRAV 1.021 Normal 1.005-1.030 [facility] Comment on above: Performed By: #### L 600.34971, L600.50470 ####[facility] [id number] [place] [address]Ic# [phone] UA UROBILINOGEN NORMAL Normal NORMAL [facility] Comment on above: Performed By: #### L 600.02877, L600.21703 ####[facility] [id number] [place] [address]Td# [phone] Urine, color YELLOW [facility] Comment on above: Performed By: #### L 600.81800, L600.19117 ####[facility] [id number] [place] [address]Hu# [phone] Urine, glucose Negative Normal NORMAL [facility] Comment on above: Performed By: #### L 600.10575, L600.87923 ####[facility] [id number] [place] [address]Kc# [phone] UA MICROSCOPICon 09-15-2017 AMORPHOUS MODERATE Normal [facility] Comment on above: Performed By: #### L 600.93793, L600.85254 ####[address] [address]Mz# [phone] EPITH CELLS 0 EPI/HPF Normal 0-5 [facility] Comment on above: Performed By: #### L 600.49282, L600.34271 ####[address] [address]Ez# [phone] TRIPLE PHOS CRY FEW Normal [facility] Comment on above: Performed By: #### L 600.93953, L600.03566 ####[address] [address]Si# [phone] UA WBC 6 WBC/HPF High 0-5 [facility] Comment on above: Performed By: #### L 600.33543, L600.61100 ####[facility] [id number] [place] [address]Wj# [phone] Urine, bacteria in sediment 4+ /HPF Normal NONE [facility] Comment on above: Performed By: #### L 600.91519, L600.14550 ####[address] [address]Jj# [phone] Urine, erythrocytes 1 RBC/HPF Normal 0-3 [facility] Comment on above: Performed By: #### L 600.49526, L600.37569 ####[address] [place], [place] [address]Km# [phone] VOL OF UR SPUN 10 ML Normal [facility] Comment on above: Performed By: #### L 600.88461, L600.05201 ####[facility] [id number] [place], [place] [address]Km# [phone] CBC (AO)on 03-11-2017 Basophils Auto #/vol (Bld) 0.00 10 3/mcL Normal 0.00-0.19 [facility] Comment on above: Performed By: #### C BCO ####[address] [address] Basophils/100 WBC Auto (Bld) 0.6 % Normal 0.0-2.5 [facility] Comment on above: Performed By: #### C BCO ####[address] [address] Eosinophils 0.20 10 3/mcL Normal 0.00-0.40 [facility] Comment on above: Performed By: #### C BCO ####[address] [address] Eosinophils/100 leukocytes 2.7 % Normal 0.0-7.0 [facility] Comment on above: Performed By: #### C BCO ####[address] [address] Erythrocyte distribution width Auto Ratio (RBC) 14.9 % High 11.5-14.5 [facility] Comment on above: Performed By: #### C BCO ####[address] [address] Erythrocytes (RBC) 5.10 10 6/mcL Normal 4.04-6.13 [facility] Comment on above: Performed By: #### C BCO ####[address] [address] Hematocrit (HCT) 44.2 % Normal 42.0-52.0 [facility] Comment on above: Performed By: #### C BCO ####[address] [address] Hemoglobin mass conc (Bld) 14.4 G/dL Normal 14.0-18.0 [facility] Comment on above: Performed By: #### C BCO ####[address] [address] Lymphocytes 0.80 10 3/mcL Normal 0.77-3.85 [facility] Comment on above: Performed By: #### C BCO ####[address] [address] Lymphocytes/100 leukocytes 14.6 % Normal 10.0-50.0 [facility] Comment on above: Performed By: #### C BCO ####[address] [address] MCH 28.2 pg Normal 27.0-31.2 [facility] Comment on above: Performed By: #### C BCO ####[address] [address] MCHC mass conc (RBC) 32.6 G/dL Normal 31.8-35.4 [facility] Comment on above: Performed By: #### C BCO ####[address] [address] MCV 86.5 fL Normal 80.0-94.0 [facility] Comment on above: Performed By: #### C BCO ####[address] [address] Monocytes 0.60 10 3/mcL Normal 0.15-1.00 [facility] Comment on above: Performed By: #### C BCO ####[address] [address] Monocytes/100 leukocytes 9.9 % Normal 1.7-13.0 [facility] Comment on above: Performed By: #### C BCO ####[address] [address] Neutrophils 4.20 10 3/mcL Normal 2.85-6.16 [facility] Comment on above: Performed By: #### C BCO ####[address] [address] Neutrophils/100 WBC Auto (Bld) 72.2 % Normal 37.0-80.0 [facility] Comment on above: Performed By: #### C BCO ####[address] [address] Platelet mean volume (PMV) 8.4 fL Normal 7.4-10.4 [facility] Comment on above: Performed By: #### C BCO ####[address] [address] Platelets 155 10 3/mcL Normal 130-400 [facility] Comment on above: Performed By: #### C BCO ####[address] [address] WBC (Leukocytes) 5.80 10 3/mcL Normal 4.60-10.80 [facility] Comment on above: Performed By: #### C BCO ####[address] [address] Comp. Metabolic Panelon 07-0 Alanine aminotransferase (ALT) 30 U/L Normal 10-35 [facility] Comment on above: Performed By: #### C MP ####[address] [address] Aspartate aminotransferase (AST) 30 U/L Normal 10-40 [facility] Comment on above: Performed By: #### C MP ####[address] [address] Glucose mass conc 132 mg/dL High 83-110 [facility] Comment on above: Performed By: #### C MP ####[address] [address] Albumin/Globulin Ratio 1.7 {ratio} Normal 1.1-2.5 [facility] Comment on above: Performed By: #### C MP ####[address] [address] Alk. Phosphatase 58 IU/L Normal 40-135 [facility] Comment on above: Performed By: #### C MP ####[place] [id number] Bilirubin (direct) 0.3 mg/dL Normal 0.2-1.0 [facility] Comment on above: Performed By: #### C MP ####[place] [id number] Globulin 2.7 G/dL Normal [facility] Comment on above: Performed By: #### C MP ####[place] [id number] T. Protein 7.2 G/dL Normal 6.0-8.3 [facility] Comment on above: Performed By: #### C MP ####[place] [id number] BUN/Creatinine Ratio 22 mg/mg Normal 7-27 [facility] Comment on above: Performed By: #### C MP ####[place] [id number] Creatinine 1.0 mg/dL Normal 0.6-1.2 [facility] Comment on above: Performed By: #### C MP ####[place] [id number] Albumin 4.5 G/dL Normal 3.4-4.8 [facility] Comment on above: Performed By: #### C MP ####[place] [id number] Calcium 9.6 mg/dL Normal 8.4-10.2 [facility] Comment on above: Performed By: #### C MP ####[place] [id number] CO2 30 mmol/L Normal 23-31 [facility] Comment on above: Performed By: #### C MP ####[place] [id number] Electrolyte Balance 8.0 mEq/L Normal [facility] Comment on above: Performed By: #### C MP ####[address] [address] Urea nitrogen 22 mg/dL High 7-18 [facility] Comment on above: Performed By: #### C MP ####[address] [address] Chloride 103 mmol/L Normal 98-107 [facility] Comment on above: Performed By: #### C MP ####[address] [address] Potassium molar conc 4.6 mmol/L Normal 3.5-5.1 [facility] Comment on above: Performed By: #### C MP ####[address] [address] Sodium 141 mmol/L Normal 136-146 [facility] Comment on above: Performed By: #### C MP ####[address] [address] Glomerular Filtration Rate E stimateon 03-11-2017 eGFR (non-black) mL/min/{1.73_m2} Normal [facility] Comment on above: Performed By: #### G FR ####[address] [address] Result Comment: Pato hannah mean GFR = 75 mL/min/1.73 sq.m. for ages 70+ years. Chronic Kidney Disease: Less than 60 mL/min/1.73 square metersEnd Stage Renal Disease: Less than 15 mL/min/1.73 square meters Vital Signs Date Time Vital Sign Value Performing Clinician Facility 05-16-2025 09:40-0400 Body height 177 cm Ha Luque MD Work Phone: [facility] 05-16-2025 09:40-0400 Body mass index (BMI) [Ratio] 28.67 kg/m2 Ha Luque MD Work Phone: [facility] 05-16-2025 09:40-0400 Body temperature 68.79 [degF] Ha Luque MD Work Phone: [facility] 05-16-2025 09:40-0400 Body weight 89.81 kg Ha Luque MD Work Phone: [facility] 05-16-2025 09:40-0400 Diastolic blood pressure 72 mm[Hg] Ha Luque MD Work Phone: [facility] 05-16-2025 09:40-0400 Heart rate 55 /min Ha Luque MD Work Phone: [facility] 05-16-2025 09:40-0400 SaO2% (BldA) [Mass fraction] 98 % Ha Luque MD Work Phone: [facility] 05-16-2025 09:40-0400 Systolic blood pressure 134 mm[Hg] Ha Luque MD Work Phone: [facility] 04-17-2025 13:22-0400 Diastolic blood pressure 69 mm[Hg] Ha Luque MD Work Phone: [facility] 04-17-2025 13:22-0400 Systolic blood pressure 143 mm[Hg] Ha Luque MD Work Phone: [facility] 04-17-2025 12:51-0400 Body mass index (BMI) [Ratio] 27.98 kg/m2 Ha Luque MD Work Phone: [facility] 04-17-2025 12:51-0400 Body temperature 97.11 [degF] Ha Luque MD Work Phone: [facility] 04-17-2025 12:51-0400 Body weight 88.45 kg Ha Luque MD Work Phone: [facility] 04-17-2025 12:51-0400 Heart rate 63 /min Ha Luque MD Work Phone: [facility] 04-17-2025 12:51-0400 SaO2% (BldA) [Mass fraction] 98 % Ha Luque MD Work Phone: [facility] 01-04-2025 09:57-0400 Body mass index (BMI) [Ratio] 29.41 kg/m2 Ha Luque MD Work Phone: [facility] 01-04-2025 09:57-0400 Body temperature 97 [degF] Ha Luque MD Work Phone: [facility] 01-04-2025 09:57-0400 Body weight 92.99 kg Ha Luque MD Work Phone: [facility] 01-04-2025 09:57-0400 Diastolic blood pressure 70 mm[Hg] Ha Luque MD Work Phone: [facility] 01-04-2025 09:57-0400 Heart rate 56 /min Ha Luque MD Work Phone: [facility] 01-04-2025 09:57-0400 SaO2% (BldA) [Mass fraction] 97 % Ha Luque MD Work Phone: [facility] 01-04-2025 09:57-0400 Systolic blood pressure 156 mm[Hg] Ha Luque MD Work Phone: [facility] 12-14-2024 12:56-0400 Body height 177.8 cm Ha Luque MD Work Phone: [facility] 12-14-2024 12:56-0400 Body mass index (BMI) [Ratio] 30.13 kg/m2 Ha Luque MD Work Phone: [facility] 12-14-2024 12:56-0400 Body temperature 97.2 [degF] Ha Luque MD Work Phone: [facility] 12-14-2024 12:56-0400 Body weight 95.25 kg Ha Luque MD Work Phone: [facility] 12-14-2024 12:56-0400 Diastolic blood pressure 64 mm[Hg] Ha Luque MD Work Phone: [facility] 12-14-2024 12:56-0400 Heart rate 66 /min Ha Luque MD Work Phone: [facility] 12-14-2024 12:56-0400 SaO2% (BldA) [Mass fraction] 96 % Ha Luque MD Work Phone: [facility] 12-14-2024 12:56-0400 Systolic blood pressure 167 mm[Hg] Ha Luque MD Work Phone: [facility] 11-29-2024 10:59-0400 Body mass index (BMI) [Ratio] 28.45 kg/m2 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 APRN.FELT C[employer]ER Work Phone: [facility] 11-29-2024 10:59-0400 Body temperature 98.1 [degF] 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 APRN.FELT CEMENTER Work Phone: [facility] 11-29-2024 10:59-0400 Body weight 92.53 kg 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 APRN.FELT C[employer]ER Work Phone: [facility] 11-29-2024 10:59-0400 Diastolic blood pressure 64 mm[Hg] 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 APRN.FELT CEMENTER Work Phone: [facility] 11-29-2024 10:59-0400 Heart rate 94 /min 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 APRN.FELT C[employer]ER Work Phone: [facility] 11-29-2024 10:59-0400 Respiratory rate 18 /min 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 APRN.FELT C[employer]ER Work Phone: [facility] 11-29-2024 10:59-0400 SaO2% (BldA) [Mass fraction] 98 % 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 APRN.FELT C[employer]ER Work Phone: [facility] 11-29-2024 10:59-0400 Systolic blood pressure 132 mm[Hg] 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 APRN.FELT CEMENTER Work Phone: [facility] 09-09-2024 12:24-0500 Body temperature 98.24 [degF] DR JAKI FLEMING DO [address] [place] [address] 09-09-2024 12:24-0500 Diastolic Blood Pressure Non-Invasive 77 mm[Hg] DR JAKI FLEMING DO [address] [place] [address] 09-09-2024 12:24-0500 Heart rate 94 /min DR JAKI FLEMING DO [address] [place] [address] 09-09-2024 12:24-0500 Respiratory rate 18 /min DR JAKI FLEMING DO [address] [place] [address] 09-09-2024 12:24-0500 Systolic Blood Pressure Non-Invasive 130 mm[Hg] DR JAKI FLEMING DO [address] [place] [address] 09-09-2024 07:15-0500 Body temperature 98.24 [degF] DR JAKI FLEMING DO [address] [place] [address] 09-09-2024 07:15-0500 Diastolic Blood Pressure Non-Invasive 78 mm[Hg] DR JAKI FLEMING DO [address] [place] [address] 09-09-2024 07:15-0500 Heart rate 90 /min DR JAKI FLEMING DO [address] [place] [address] 09-09-2024 07:15-0500 Respiratory rate 17 /min DR JAKI FLEMING DO [address] [place] [address] 09-09-2024 07:15-0500 Systolic Blood Pressure Non-Invasive 121 mm[Hg] DR JAKI FLEMING DO [address] [place] [address] 09-09-2024 03:10-0500 Body temperature 97.88 [degF] DR JAKI FLEMING DO [address] [place] [address] 09-09-2024 03:10-0500 Diastolic Blood Pressure Non-Invasive 69 mm[Hg] DR JAKI FLEMING DO [address] [place] [address] 09-09-2024 03:10-0500 Heart rate 68 /min DR JAKI FLEMING DO [address] [place] [address] 09-09-2024 03:10-0500 Reason For Taking VItal Signs DR JAKI FLEMING DO [address] [place] [address] 09-09-2024 03:10-0500 Respiratory rate 16 /min DR JAKI FLEMING DO [address] [place] [address] 09-09-2024 03:10-0500 Systolic Blood Pressure Non-Invasive 96 mm[Hg] DR JAKI FLEMING DO [address] [place] [address] 09-08-2024 23:16-0500 Reason For Taking VItal Signs DR JAKI FLEMING DO [address] [place] [address] 09-08-2024 19:55-0500 Blood Pressure Cuff Size DR JAKI FLEMING DO [address] [place] [address] 09-08-2024 19:55-[address] JAKI FLEMING DO [address] [place] [address] 09-08-2024 19:55-[address] JAKI FLEMING DO [address] [place] [address] 09-08-2024 19:52-0500 Mean blood pressure 89 mm[Hg] DR JAKI FLEMING DO [address] [place] [address] 09-08-2024 19:52-0500 Reason For Taking VItal Signs DR JAKI FLEMING DO [address] [place] [address] 09-08-2024 14:22-0500 Blood Pressure Cuff Size DR JAKI FLEMING DO [address] [place] [address] 09-08-2024 14:22-[address] JAKI FLEMING DO [address] [place] [address] 09-08-2024 14:22-[address] JAKI FLEMING DO [address] [place] [address] 09-08-2024 10:59-0500 Heart rate 80 /min DR JAKI FLEMING DO [address] [place] [address] 09-08-2024 07:45-0500 Blood Pressure Cuff Size DR JAKI FLEMING DO [address] [place] [address] 09-08-2024 07:45-[address] JAKI FLEMING DO [address] [place] [address] 09-08-2024 07:45-[address] JAKI FLEMING DO [address] [place] [address] 09-08-2024 07:45-0500 Heart rate 93 /min DR JAKI FLEMING DO [address] [place] [address] 09-08-2024 03:54-0500 Heart rate 64 /min DR JAKI FLEMING DO [address] [place] [address] 09-08-2024 03:54-0500 Mean blood pressure 59 mm[Hg] DR JAKI FLEMING DO [address] [place] [address] 09-08-2024 00:20-0500 Heart rate 75 /min DR JAKI FLEMING DO [address] [place] [address] 09-07-2024 20:22-0500 Body height 180.[address] JAKI FLEMING DO [address] [place] [address] 09-07-2024 20:22-0500 Body weight 119.[address] JAKI FLEMING DO [address] [place] [address] 09-07-2024 20:22-0500 Body weight 36.79 kg/m2 DR JAKI FLEMING DO [address] [place] [address] 09-07-2024 20:19-0500 Body height 180.[address] JAKI FLEMING DO [address] [place] [address] 09-07-2024 20:19-0500 Body weight 119.[address] JAKI FLEMING DO [address] [place] [address] 09-07-2024 20:19-0500 Body weight 36.79 kg/m2 DR JAKI FLEMING DO [address] [place] [address] 09-06-2024 23:43-0500 Body weight 119.[address] JAKI FLEMING DO [facility] 05-27-2024 10:50-0400 Diastolic Blood Pressure Non-Invasive 73 mm[Hg] DR MAJO HOLDER MD [facility] 05-27-2024 10:50-0400 Heart rate 70 /min DR MAJO HOLDER MD [facility] 05-27-2024 10:50-0400 Respiratory rate 18 /min DR MAJO HOLDER MD [facility] 05-27-2024 10:50-0400 Systolic Blood Pressure Non-Invasive 154 mm[Hg] DR MAJO HOLDER MD [facility] 05-27-2024 09:16-0400 Body temperature 97.88 [degF] DR MAJO HOLDER MD [facility] 05-27-2024 09:16-0400 Body weight 97.[address] MAJO HOLDER MD [facility] 05-27-2024 09:16-0400 Diastolic Blood Pressure Non-Invasive 70 mm[Hg] DR MAJO HOLDER MD [facility] 05-27-2024 09:16-0400 Heart rate 63 /min DR MAJO HOLDER MD [facility] 05-27-2024 09:16-0400 Respiratory rate 18 /min DR MAJO HOLDER MD [facility] 05-27-2024 09:16-0400 Systolic Blood Pressure Non-Invasive 170 mm[Hg] DR MAJO HOLDER MD [facility] 05-04-2024 12:19-0400 Diastolic Blood Pressure Non-Invasive 89 mm[Hg] YG MUHAMMAD MD [facility] 05-04-2024 12:19-0400 Heart rate 74 /min YG MUHAMMAD MD [facility] 05-04-2024 12:19-0400 Respiratory rate 16 /min YG MUHAMMAD MD [facility] 05-04-2024 12:19-0400 Systolic Blood Pressure Non-Invasive 157 mm[Hg] YG MUHAMMAD MD [facility] 05-04-2024 06:44-0400 Body temperature 96.8 [degF] YG MUHAMMAD MD [facility] 05-04-2024 06:44-0400 Body weight 95 kg YG MUHAMMAD MD [facility] 05-04-2024 06:44-0400 Diastolic Blood Pressure Non-Invasive 91 mm[Hg] YG MUHAMMAD MD [facility] 05-04-2024 06:44-0400 Heart rate 76 /min YG MUHAMMAD MD [facility] 05-04-2024 06:44-0400 Respiratory rate 16 /min GY MUHAMMAD MD [facility] 05-04-2024 06:44-0400 Systolic Blood Pressure Non-Invasive 168 mm[Hg] YG MUHAMMAD MD [facility] 02-11-2024 14:17-0400 Body temperature 97 [degF] Barrett Huff PA-C Work Phone: [facility] 02-11-2024 14:17-0400 Diastolic blood pressure 61 mm[Hg] Barrett Huff PA-C Work Phone: [facility] 02-11-2024 14:17-0400 Heart rate 67 /min Barrett uHff PA-C Work Phone: [facility] 02-11-2024 14:17-0400 Respiratory rate 16 /min Barrett Huff PA-C Work Phone: [facility] 02-11-2024 14:17-0400 SaO2% (BldA) [Mass fraction] 96 % Barrett Huff PA-C Work Phone: [facility] 02-11-2024 14:17-0400 Systolic blood pressure 119 mm[Hg] Barrett Huff PA-C Work Phone: [facility] 11-03-2023 16:25-0500 Body temperature 97.16 [degF] EZEKIEL QUIROS MD [facility] 11-03-2023 16:25-0500 Diastolic Blood Pressure Non-Invasive 63 mm[Hg] EZEKIEL QUIROS MD [facility] 11-03-2023 16:25-0500 Heart rate 56 /min EZEKIEL QUIROS MD [facility] 11-03-2023 16:25-0500 Respiratory rate 16 /min EZEKIEL QUIROS MD [facility] 11-03-2023 16:25-0500 Systolic Blood Pressure Non-Invasive 150 mm[Hg] EZEKIEL QUIROS MD [facility] 11-03-2023 15:50-0500 Body temperature 96.8 [degF] EZEKIEL QUIROS MD [facility] 11-03-2023 15:50-0500 Diastolic Blood Pressure Non-Invasive 65 mm[Hg] EZEKIEL QUIROS MD [facility] 11-03-2023 15:50-0500 Heart rate 56 /min EZEKIEL QUIROS MD [facility] 11-03-2023 15:50-0500 Mean blood pressure 88 mm[Hg] EZEKIEL QUIROS MD [facility] 11-03-2023 15:50-0500 Respiratory rate 18 /min EZEKIEL QUIROS MD [facility] 11-03-2023 15:50-0500 Systolic Blood Pressure Non-Invasive 142 mm[Hg] EZEKIEL QUIROS MD [facility] 11-03-2023 15:48-0500 Body temperature 96.8 [degF] EZEKIEL QUIROS MD [facility] 11-03-2023 15:48-0500 Diastolic Blood Pressure Non-Invasive 63 mm[Hg] EZEKIEL QUIROS MD [facility] 11-03-2023 15:48-0500 Heart rate 62 /min EZEKIEL QUIROS MD [facility] 11-03-2023 15:48-0500 Mean blood pressure 88 mm[Hg] EZEKIEL QUIROS MD [facility] 11-03-2023 15:48-0500 Respiratory rate 18 /min EZEKIEL QUIROS MD [facility] 11-03-2023 15:48-0500 Systolic Blood Pressure Non-Invasive 145 mm[Hg] EZEKIEL QUIROS MD [facility] 11-03-2023 15:35-0500 Heart rate 64 /min EZEKIEL QUIROS MD [facility] 11-03-2023 15:35-0500 Mean blood pressure 100 mm[Hg] EZEKIEL QUIROS MD [facility] 11-03-2023 14:55-0500 Respiratory Rate - Anes 17 br/min EZEKIEL QUIROS MD [facility] 11-03-2023 14:50-0500 Respiratory Rate - Anes 20 br/min EZEKIEL QUIROS MD [facility] 11-03-2023 14:45-0500 Body temperature 97.3 [degF] EZEKIEL QUIROS MD [facility] 11-03-2023 14:45-0500 Respiratory Rate - Anes 15 br/min EZEKIEL QUIROS MD [facility] 11-03-2023 14:40-0500 Body temperature 97.38 [degF] EZEKIEL QUIROS MD [facility] 11-03-2023 14:35-0500 Body temperature 97.47 [degF] EZEKIEL QUIROS MD [facility] 11-03-2023 12:06-0500 Body height 177.8 cm EZEKIEL QUIROS MD [facility] 11-03-2023 12:06-0500 Body weight 91.2 kg EZEKIEL QUIROS MD [facility] 11-03-2023 12:06-0500 Heart rate 65 /min EZEKIEL QUIROS MD [facility] 10-18-2023 13:12-0500 Body height [address] CLOVER KATZ MD [facility] 10-18-2023 07:16-0500 Blood Pressure Location EZEKIEL QUIROS MD [facility] 10-18-2023 07:16-0500 Blood Pressure Method EZEKIEL QUIROS MD [facility] 10-18-2023 07:16-0500 Body height 178 cm EZEKIEL QUIROS MD [facility] 10-18-2023 07:16-0500 Body temperature 97.7 [degF] EZEKIEL QUIROS MD [facility] 10-18-2023 07:16-0500 Body weight 95.3 kg EZEKIEL QUIROS MD [facility] 10-18-2023 07:16-0500 Diastolic Blood Pressure Non-Invasive 75 mm[Hg] EZEKIEL QUIROS MD [facility] 10-18-2023 07:16-0500 Heart rate 58 /min EZEKIEL QUIROS MD [facility] 10-18-2023 07:16-0500 Systolic Blood Pressure Non-Invasive 149 mm[Hg] EZEKIEL QUIROS MD [facility] 09-23-2023 14:40-0500 Blood Pressure Cuff Size DR TAYLOR RICARDO MD [facility] 09-23-2023 14:40-[address] TAYLOR RICARDO MD [facility] 09-23-2023 14:40-[address] TAYLOR Lubin MD [address] [place] [address] 09-23-2023 14:40-0500 Body temperature 97.88 [degF] DR TAYLOR RICARDO MD [address] [place] [address] 09-23-2023 14:40-0500 Diastolic Blood Pressure Non-Invasive 70 mm[Hg] DR TAYLOR RICARDO MD [address] [place] [address] 09-23-2023 14:40-0500 Heart rate 66 /min DR TAYLOR RICARDO MD [address] [place] [address] 09-23-2023 14:40-0500 Reason For Taking VItal Signs DR TAYLOR RICARDO MD [address] 09-23-2023 14:40-0500 Respiratory rate 17 /min DR TAYLOR RICARDO MD [address] [place] [address] 09-23-2023 14:40-0500 Systolic Blood Pressure Non-Invasive 142 mm[Hg] DR TAYLOR RICARDO MD [address] [place] [address] 09-23-2023 06:54-[address] TAYLOR RICARDO MD [address] [place] [address] 09-23-2023 06:54-[address] TAYLOR Lubin MD [address] [place] [address] 09-23-2023 06:54-0500 Body temperature 97.7 [degF] DR TAYLOR RICARDO MD [address] [place] [address] 09-23-2023 06:54-0500 Diastolic Blood Pressure Non-Invasive 69 mm[Hg] DR TAYLOR RICARDO MD [address] [place] [address] 09-23-2023 06:54-0500 Heart rate 78 /min DR TAYLOR RICARDO MD [address] [place] [address] 09-23-2023 06:54-0500 Reason For Taking VItal Signs DR TAYLOR RICARDO MD [address] [place] [address] 09-23-2023 06:54-0500 Respiratory rate 18 /min DR TAYLOR RICARDO MD [address] [place] [address] 09-23-2023 06:54-0500 Systolic Blood Pressure Non-Invasive 144 mm[Hg] DR TAYLOR RICARDO MD [address] [place] [address] 09-22-2023 23:00-0500 Body temperature 98.06 [degF] DR TAYLOR RICARDO MD [address] 09-22-2023 23:00-0500 Diastolic Blood Pressure Non-Invasive 66 mm[Hg] DR TAYLOR RICARDO MD [address] 09-22-2023 23:00-0500 Heart rate 63 /min DR TAYLOR RICARDO MD [address] [place] [address] 09-22-2023 23:00-0500 Respiratory rate 16 /min DR TAYLOR RICARDO MD [address] 09-22-2023 23:00-0500 Systolic Blood Pressure Non-Invasive 124 mm[Hg] DR TAYLOR RICARDO MD [address] 09-22-2023 15:35-0500 Reason For Taking VItal Signs DR TAYLOR RICARDO MD [address] [place] [address] 09-22-2023 11:17-0500 Signs/Symptoms Transfusion Reaction DR TAYLOR RICARDO MD [address] [place] [address] 09-22-2023 10:17-0500 Diastolic blood pressure 51 mm[Hg] DR TAYLOR RICARDO MD [address] [place] [address] 09-22-2023 10:17-0500 Signs/Symptoms Transfusion Reaction DR TAYLOR RICARDO MD [address] [place] [address] 09-22-2023 10:17-0500 Systolic blood pressure 92 mm[Hg] DR TAYLOR RICARDO MD [address] [place] [address] 09-22-2023 10:15-0500 Signs/Symptoms Transfusion Reaction No DR TAYLOR RICARDO MD [address] [place] [address] 09-22-2023 08:20-0500 Diastolic blood pressure 58 mm[Hg] DR TAYLOR RICARDO MD [address] [place] [address] 09-22-2023 08:20-0500 Systolic blood pressure 119 mm[Hg] DR TAYLOR RICARDO MD [address] [place] [address] 09-21-2023 19:37-[address] TAYLOR RICARDO MD [address] [place] [address] 09-21-2023 19:37-[address] TAYLOR Lubin MD [address] [place] [address] 09-21-2023 11:41-0500 Heart rate 77 /min DR TAYLOR RICARDO MD [address] [place] [address] 09-21-2023 11:26-0500 Heart rate 69 /min DR TAYLOR RICARDO MD [address] 09-21-2023 11:26-0500 Mean blood pressure 70 mm[Hg] DR TAYLOR RICARDO MD [address] [place] [address] 09-21-2023 11:11-0500 Heart rate 83 /min DR TAYLOR RICARDO MD [address] [place] [address] 09-21-2023 11:11-0500 Mean blood pressure 77 mm[Hg] DR TAYLOR RICARDO MD [address] [place] [address] 09-21-2023 10:56-0500 Body temperature 97.34 [degF] DR TAYLOR RICARDO MD [address] [place] [address] 09-21-2023 10:56-0500 Mean blood pressure 69 mm[Hg] DR TAYLOR RICARDO MD [address] [place] [address] 09-21-2023 10:50-0500 Respiratory Rate - Anes 11 br/min DR TAYLOR RICARDO MD [address] [place] [address] 09-21-2023 10:45-0500 Body temperature 95.38 [degF] DR TAYLOR RICARDO MD [address] [place] [address] 09-21-2023 10:45-0500 Respiratory Rate - Anes 24 br/min DR TAYLOR RICARDO MD [address] [place] [address] 09-21-2023 10:40-0500 Body temperature 99.1 [degF] DR TAYLOR RICARDO MD [address] 09-21-2023 10:40-0500 Respiratory Rate - Anes 23 br/min DR TAYLOR RICARDO MD [address] [place] [address] 09-21-2023 10:35-0500 Body temperature 99.21 [degF] DR TAYLOR RICARDO MD [address] [place] [address] 09-20-2023 23:28-0500 Body height 180.[address] TAYLOR RICARDO MD [address] [place] [address] 09-20-2023 23:28-0500 Body weight 90.[address] TAYLOR RICARDO MD [address] [place] [address] 09-20-2023 23:28-0500 Body weight 27.84 kg/m2 DR TAYLOR RICARDO MD [facility] 09-20-2023 22:14-0500 Diastolic Blood Pressure Non-Invasive 69 mm[Hg] RUBY KHALIL DO [facility] 09-20-2023 22:14-0500 Heart rate 88 /min RUBY KHALIL DO [facility] 09-20-2023 22:14-0500 Respiratory rate 20 /min RUBY FROMMELT DO [facility] 09-20-2023 22:14-0500 Systolic Blood Pressure Non-Invasive 133 mm[Hg] RUBY FROMMELT DO [facility] 09-20-2023 20:53-0500 Diastolic blood pressure 69 mm[Hg] RUBY FROMMELT DO [facility] 09-20-2023 20:53-0500 Heart rate 88 /min RUBY FROMMELT DO [facility] 09-20-2023 20:53-0500 Respiratory rate 20 /min RUBY FROMMELT DO [facility] 09-20-2023 20:53-0500 Systolic blood pressure 133 mm[Hg] RUBY FROMMELT DO [facility] 09-20-2023 17:06-0500 Body temperature 99.86 [degF] RUBY FROMMELT DO [facility] 09-20-2023 17:06-0500 Diastolic Blood Pressure Non-Invasive 79 mm[Hg] RUBY FROMMELT DO [facility] 09-20-2023 17:06-0500 Heart rate 97 /min RUBY FROMMELT DO [facility] 09-20-2023 17:06-0500 Respiratory rate 20 /min RUBY FROMMELT DO [facility] 09-20-2023 17:06-0500 Systolic Blood Pressure Non-Invasive 136 mm[Hg] RUBY FROMMELT DO [facility] 09-20-2023 15:23-0500 Body height 180 cm RUBY FROMMELT DO [facility] 09-20-2023 15:23-0500 Body temperature 99.32 [degF] RUBY FROMMELT DO [facility] 09-20-2023 15:23-0500 Body weight 95.5 kg RUBY FROMMELT DO [facility] 09-20-2023 15:23-0500 Diastolic Blood Pressure Non-Invasive 88 mm[Hg] RUBY FROMMELT DO [facility] 09-20-2023 15:23-0500 Systolic Blood Pressure Non-Invasive 182 mm[Hg] RUBY FROMMELT DO [facility] 09-20-2023 07:53-0500 Body height 180.3 cm RUBY FROMMELT DO [facility] 09-20-2023 07:53-0500 Body temperature 97.7 [degF] RUBY FROMMELT DO [facility] 09-20-2023 07:53-0500 Body weight 95.5 kg RUBY FROMMELT DO [facility] 09-20-2023 07:53-0500 Diastolic Blood Pressure Non-Invasive 68 mm[Hg] RUBY FROMMELT DO [facility] 09-20-2023 07:53-0500 Heart rate 82 /min RUBY FROMMELT DO [facility] 09-20-2023 07:53-0500 Respiratory rate 18 /min RUBY FROMMELT DO [facility] 09-20-2023 07:53-0500 Systolic Blood Pressure Non-Invasive 113 mm[Hg] RUBY FROMMELT DO [facility] 09-06-2023 15:22-0500 Diastolic Blood Pressure Non-Invasive 76 mm[Hg] LASHAE MOULTON MD [facility] 09-06-2023 15:22-0500 Heart rate 65 /min LASHAE MOULTON MD [facility] 09-06-2023 15:22-0500 Reason For Taking VItal Signs LASHAE MOULTON MD [facility] 09-06-2023 15:22-0500 Respiratory rate 18 /min LASHAE MOULTON MD [facility] 09-06-2023 15:22-0500 Systolic Blood Pressure Non-Invasive 151 mm[Hg] LASHAE MOULTON MD [facility] 09-06-2023 11:54-0500 Body weight 95.4 kg LASHAE MOULTON MD [facility] 09-06-2023 11:54-0500 Diastolic Blood Pressure Non-Invasive 68 mm[Hg] LASHAE MOULTON MD [facility] 09-06-2023 11:54-0500 Heart rate 68 /min LASHAE MOULTON MD [facility] 09-06-2023 11:54-0500 Respiratory rate 18 /min LASHAE MOULTON MD [facility] 09-06-2023 11:54-0500 Systolic Blood Pressure Non-Invasive 170 mm[Hg] LASHAE MOULTON MD [facility] 08-28-2023 14:25-0500 Diastolic Blood Pressure Non-Invasive 99 mm[Hg] DR MAJO HOLDER MD [facility] 08-28-2023 14:25-0500 Heart rate 74 /min DR MAJO HOLDER MD [facility] 08-28-2023 14:25-0500 Respiratory rate 20 /min DR MAJO HOLDER MD [facility] 08-28-2023 14:25-0500 Systolic Blood Pressure Non-Invasive 124 mm[Hg] DR MAJO HOLDER MD [facility] 06-20-2023 08:33-0400 Body weight 97.[address] CLOVER KATZ MD [facility] 05-31-2023 23:17-0400 Body temperature 97.16 [degF] LAYNE JARQUIN MD [facility] 05-31-2023 23:17-0400 Body weight 91.6 kg LAYNE JARQUIN MD [facility] 05-31-2023 23:17-0400 Diastolic Blood Pressure Non-Invasive 70 1 LAYNE JARQUIN MD [facility] 05-31-2023 23:17-0400 Heart rate 83 /min LAYNE JARQUIN MD [facility] 05-31-2023 23:17-0400 Respiratory rate 16 /min LAYNE JARQUIN MD [facility] 05-31-2023 23:17-0400 Systolic Blood Pressure Non-Invasive 138 1 LAYNE JARQUIN MD [facility] 05-03-2023 17:06-0400 Body temperature 97.88 [degF] EMMANUEL HOLDER MD [facility] 05-03-2023 17:06-0400 Body weight 95.2 kg EMMANUEL HOLDER MD [facility] 05-03-2023 17:06-0400 Diastolic Blood Pressure Non-Invasive 71 1 EMMANUEL HOLDER MD [facility] 05-03-2023 17:06-0400 Heart rate 68 /min EMMANUEL HOLDER MD [facility] 05-03-2023 17:06-0400 Respiratory rate 18 /min EMMANUEL HOLDER MD [facility] 05-03-2023 17:06-0400 Systolic Blood Pressure Non-Invasive 154 1 EMMANUEL HOLDER MD [facility] 04-29-2023 12:48-0400 Diastolic Blood Pressure Non-Invasive [address] CLOVER KATZ MD [facility] 04-29-2023 12:48-0400 Heart rate 52 /min DR CLOVER KATZ MD [facility] 04-29-2023 12:48-0400 Systolic Blood Pressure Non-Invasive [address] CLOVER KATZ MD [facility] 04-29-2023 12:38-0400 Body height 180.[address] CLOVER KATZ MD [facility] 04-29-2023 12:36-0400 Body temperature 97.7 [degF] DR CLOVER KATZ MD [facility] 04-29-2023 12:36-0400 Diastolic Blood Pressure Non-Invasive [address] CLOVER KATZ MD [facility] 04-29-2023 12:36-0400 Heart rate 74 /min DR CLOVER KATZ MD [facility] 04-29-2023 12:36-0400 Respiratory rate 18 /min DR CLOVER KATZ MD [facility] 04-29-2023 12:36-0400 Systolic Blood Pressure Non-Invasive [address] CLOVER KATZ MD [facility] 02-21-2023 00:29-0400 Diastolic Blood Pressure Non-Invasive 88 1 SILVIA HOWELL MD [facility] 02-21-2023 00:29-0400 Heart rate 63 /min SILVIA HOWELL MD [facility] 02-21-2023 00:29-0400 Respiratory rate 16 /min SILVIA HOWELL MD [facility] 02-21-2023 00:29-0400 Systolic Blood Pressure Non-Invasive 135 1 SILVIA HOWELL MD [facility] 02-20-2023 22:00-0400 Diastolic Blood Pressure Non-Invasive 86 1 SILVIA HOWELL MD [facility] 02-20-2023 22:00-0400 Heart rate 75 /min SILVIA HOWELL MD [facility] 02-20-2023 22:00-0400 Systolic Blood Pressure Non-Invasive 146 1 SILVIA HOWELL MD [facility] 02-20-2023 19:50-0400 Diastolic Blood Pressure Non-Invasive 76 1 SILVIA HOWELL MD [facility] 02-20-2023 19:50-0400 Heart rate 69 /min SILVIA HOWELL MD [facility] 02-20-2023 19:50-0400 Respiratory rate 16 /min SILVIA HOWELL MD [facility] 02-20-2023 19:50-0400 Systolic Blood Pressure Non-Invasive 141 1 SILVIA HOWELL MD [facility] 02-20-2023 17:06-0400 Blood Pressure Location SILVIA HOWELL MD [facility] 02-20-2023 17:06-0400 Body temperature 98.06 [degF] SILVIA HOWELL MD [facility] 02-20-2023 17:06-0400 Body weight 94.1 kg SILVIA HOWELL MD [facility] 02-01-2023 12:46-0400 Body temperature 97.7 [degF] EZEKIEL BURRIS MD [facility] 02-01-2023 12:46-0400 Diastolic Blood Pressure Non-Invasive 73 1 EZEKIEL BURRIS MD [facility] 02-01-2023 12:46-0400 Heart rate 60 /min EZEKIEL BURRIS MD [facility] 02-01-2023 12:46-0400 Respiratory rate 18 /min EZEKIEL BURRIS MD [facility] 02-01-2023 12:46-0400 Systolic Blood Pressure Non-Invasive 156 1 EZEKIEL BURRIS MD [facility] 02-01-2023 12:16-0400 Body temperature 97.52 [degF] EZEKIEL BURRIS MD [facility] 02-01-2023 12:16-0400 Diastolic Blood Pressure Non-Invasive 77 1 EZEKIEL BURRIS MD [facility] 02-01-2023 12:16-0400 Heart rate 68 /min EZEKIEL BURRIS MD [facility] 02-01-2023 12:16-0400 Respiratory rate 16 /min EZEKIEL BURRIS MD [facility] 02-01-2023 12:16-0400 Systolic Blood Pressure Non-Invasive 144 1 EZEKIEL BURRIS MD [facility] 02-01-2023 11:51-0400 Body temperature 97.88 [degF] EZEKIEL BURRIS MD [facility] 02-01-2023 11:51-0400 Diastolic Blood Pressure Non-Invasive 84 1 EZEKIEL BURRIS MD [facility] 02-01-2023 11:51-0400 Heart rate 57 /min EZEKIEL BURRIS MD [facility] 02-01-2023 11:51-0400 Mean blood pressure 103 mm[Hg] EZEKIEL BURRIS MD [facility] 02-01-2023 11:51-0400 Respiratory rate 20 /min EZEKIEL BURRIS MD [facility] 02-01-2023 11:51-0400 Systolic Blood Pressure Non-Invasive 152 1 EZEKIEL BURRIS MD [facility] 02-01-2023 11:35-0400 Heart rate 62 /min EZEKIEL BURRIS MD [facility] 02-01-2023 11:35-0400 Mean blood pressure 89 mm[Hg] EZEKIEL BURRIS MD [facility] 02-01-2023 11:27-0400 Body temperature 97.7 [degF] EZEKIEL BURRIS MD [facility] 02-01-2023 11:27-0400 Heart rate 60 /min EZEKIEL BURRIS MD [facility] 02-01-2023 11:27-0400 Mean blood pressure 84 mm[Hg] EZEKIEL BURRIS MD [facility] 02-01-2023 11:25-0400 Respiratory Rate - Anes 2 br/min EZEKIEL BURRIS MD [facility] 02-01-2023 11:20-0400 Body temperature 94.93 [degF] EZEKIEL BURRIS MD [facility] 02-01-2023 11:20-0400 Respiratory Rate - Anes 24 br/min EZEKIEL BURRIS MD [facility] 02-01-2023 11:15-0400 Body temperature 94.51 [degF] EZEKIEL BURRIS MD [facility] 02-01-2023 11:15-0400 Respiratory Rate - Anes 13 br/min EZEKIEL BURRIS MD [facility] 02-01-2023 11:10-0400 Body temperature 91.99 [degF] EZEKIEL BURRIS MD [facility] 02-01-2023 09:33-0400 Body height 177.8 cm EZEKIEL BURRIS MD [facility] 02-01-2023 09:33-0400 Body weight 96.2 kg EZEKIEL BURRIS MD [facility] 02-01-2023 09:33-0400 Heart rate 62 /min EZEKIEL BURRIS MD [facility] Encounters Encounter Date Encounter Type Care Provider Facility Start: 07-09-2025 End: 07-09-[address] JAKI FLEMING DO Facility:[facility] Start: 07-09-2025 End: 07-09-2025 Patient encounter procedure ISHAAN EVELIACuate HEARN GOLF COUR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-FELT CEMENTER [facility] Start: 06-27-2025 End: 06-27-2025 ambulatory JAKI FLEMING Facility:[facility] Start: 05-16-2025 End: 05-16-2025 Patient encounter procedure Ha Luque MD Work Phone: Hematology/Oncology Start: 05-16-2025 End: 05-16-2025 ambulatory Ha Luque MD Work Phone: Hematology/Oncology Comment on above: Anemia, unspecified type (Primary Dx); Stage 3a chronic kidney disease (HCC) Anemia, unspecified type (Primary Dx) Start: 05-01-2025 End: 05-01-[address] Jaki Fleming DO Work Phone: -[facility] Start: 05-01-2025 End: 05-01-[address] Isabella Justice MD -Laboratory [facility] Start: 05-01-2025 End: 05-01-2025 ambulatory Jaki Fleming Facility:[facility] Start: 04-17-2025 End: 04-17-2025 Patient encounter procedure [...] End: 03-06-[address] JAKI FLEMING DO Facility:[facility] Start: 03-06-2025 End: 03-06-[address] JAKI FLEMING DO [facility] Start: 02-20-2025 End: 02-20-[address] JAKI FLEMING DO Facility:[facility] Start: 02-20-2025 End: 02-20-2025 Patient encounter procedure KAYLIE MEJÍA APRN-[facility] Start: 02-05-2025 End: 02-05-[address] Jaki Fleming DO Work Phone: [facility] Work Phone: Start: 02-05-2025 End: 02-05-[address] Isabella Justice MD -Laboratory [facility] Start: 02-05-2025 End: 02-05-2025 ambulatory Jaki Fleming Facility:[facility] Start: 01-14-2025 End: 01-14-[address] JAKI FLEMING DO Facility:[facility] Start: 01-14-2025 End: 01-14-2025 Patient encounter procedure EZEKIEL BURRIS MD [facility] Start: 01-04-2025 End: 01-04-2025 Patient [...] Xr Jayy Quiroga Work Phone: [facility] Comment on above: Injury of left upper arm, initial encounter [S49.92XA] Start: 11-29-2024 End: 11-29-2024 ambulatory FABIOLA CROSS Facility:[id number] Start: 11-29-2024 End: 11-29-2024 Office outpatient visit 15 minutes 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 GOLF COUR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.FELT CEMENTER Work Phone: [facility] Comment on above: Injury of left upper arm, initial encounter (Primary Dx); Biceps tendonitis on left Start: 11-28-2024 End: 12-03-2024 Telephone encounter Ha Luque MD Work Phone: Hematology/Oncology Comment on above: New Patient Start: 11-21-2024 End: 11-21-[address] JAKI FLEMING DO Facility:[facility] Start: 11-20-[address] JAKI FLEMING DO Faci lity:[facility] Start: 11-06-2024 End: 11-06-[address] ISABELLA JUSTICE MD Facility:[facility] Start: 11-06-2024 End: 11-06-[address] ISABELLA JUSTICE MD [facility] Start: 10-23-2024 End: 10-23-[address] JAKI FLEMING DO Facility:[facility] Start: 10-23-2024 End: 10-23-[address] JAKI FLEMING DO [facility] Start: 10-17-2024 End: 10-17-2024 ambulatory CHARMAINE LO GOLF COUR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-FELT CEMENTER Facility:[facility] Start: 10-17-2024 End: 10-17-2024 Patient encounter procedure CHARMAINE LO STANLEY-FELT CEMENTER [facility] Start: 10-03-2024 End: 10-03-2024 ambulatory AMISH MAYER MD Facility:[facility] Start: 10-03-2024 End: 10-03-2024 Patient encounter procedure AMISH MAYER MD [facility] Start: 09-17-2024 End: 09-17-[address] JAKI FLEMING DO Facility:[facility] Start: 09-17-2024 End: 09-17-[address] JAKI FLEMING DO [facility] Start: 09-06-2024 End: 09-09-2024 Evaluation and management of inpatient DR JAKI FLEMING DO [facility] Start: 08-21-2024 End: 08-21-2024 ambulatory Jaki Fleming Facility:[facility] Start: 08-17-2024 End: 08-17-[address] JAKI FLEMING DO Facility:[facility] Start: 08-17-2024 End: 08-17-[address] JAKI FLEMING DO [facility] Start: 08-09-2024 ambulatory Jaki Fleming Facility:[facility] Start: 08-01-2024 End: 08-01-[address] ISABELLA JUSTICE MD Facility:[facility] Start: 08-01-2024 End: 08-01-[address] ISABELLA JUSTICE MD [facility] Start: 07-24-2024 ambulatory Jaki Fleming Facility:[facility] Start: 07-24-2024 End: 07-24-2024 ambulatory Jaki Fleming Facility:[facility] Start: 07-20-2024 End: 07-20-2024 ambulatory EZEKIEL BURRIS MD Facility:[facility] Start: 07-20-2024 End: 07-20-2024 Patient encounter procedure EZEKIEL BURRIS MD [facility] Start: 07-11-2024 End: 07-11-2024 Patient encounter procedure KAYLIE MEJÍA GOLF COUR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-FELT CEMENTER [facility] Start: 05-27-2024 End: 05-27-2024 Emergency department patient visit DR MAJO HOLDER MD [facility] Start: 05-11-2024 End: 05-11-[address] ISABELLA JUSTICE MD [facility] Start: 05-04-2024 End: 05-04-2024 Emergency department patient visit YG MUHAMMAD MD [facility] Start: 04-19-2024 End: 04-23-2024 ambulatory KAYLIE MEJÍA Facility:[facility] Start: 04-19-2024 End: 04-19-2024 ambulatory KAYLIE MEJÍA Facility:[facility] Start: 04-12-[address] CLOVER KATZ MD Facilit y:A Start: 03-14-2024 End: 03-14-[address] JAKI FLEMING DO Facility:[facility] Start: 03-14-2024 End: 03-14-[address] JAKI FLEMING DO [facility] Start: 03-01-2024 End: 03-05-[address] JAKI FLEMING DO [facility] Start: 03-01-2024 End: 03-05-[address] JAKI FLEMING DO Facility:[facility] Start: 03-01-2024 End: 03-01-2024 Patient encounter procedure CHARMAINE LO GOLF COUR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-FELT CEMENTER [facility] Start: 02-24-2024 End: 02-24-[address] JAKI FLEMING DO Facility:[facility] Start: 02-24-2024 End: 02-24-[address] JAKI FLEMING DO [facility] Start: 02-15-2024 End: 02-15-[address] JAKI FLEMING DO Facility:[facility] Start: 02-15-2024 End: 02-15-[address] JAKI FLEMING DO [facility] Start: 02-13-2024 End: 02-13-[address] ISABELLA JUSTICE MD Facility:[facility] Start: 02-13-2024 End: 02-13-[address] ISABELLA JUSTICE MD [facility] Start: 02-11-2024 End: 02-11-2024 ambulatory BARRETT HUFF Facility:[id number] Start: 02-11-2024 End: 02-11-2024 Patient encounter procedure Barrett DANIELSC Work Phone: [facility] Comment on above: Multiple open wounds (Primary Dx); Cellulitis of left buttock Start: 11-23-2023 End: 11-23-2023 ambulatory EZEKIEL BURRIS Facility:[facility] Start: 11-23-2023 End: 11-23-2023 Patient encounter procedure EZEKIEL BURRIS MD [facility] Start: 11-21-2023 End: 11-21-2023 ambulatory CHARMAINE LO GOLF COUR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-FELT CEMENTER Facility:[facility] Start: 11-21-2023 End: 11-21-2023 Patient encounter procedure CHARMAINE LO GOLF COUR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-FELT CEMENTER [facility] Start: 11-18-2023 ambulatory CHARMAINE LO GOLF COUR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-FELT CEMENTER F acility:[facility] Start: 11-17-2023 End: 11-17-2023 ambulatory KYAW LUCIANO GOLF COUR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-FELT CEMENTER Facility:[facility] Start: 11-17-2023 End: 11-17-2023 Patient encounter procedure KYAW LUCIANO GOLF COUR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-FELT CEMENTER [facility] Start: 11-04-2023 End: 11-04-2023 Patient encounter procedure KYAW LUCIANO GOLF COUR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-FELT CEMENTER [facility] Start: 11-03-2023 End: 11-04-2023 ambulatory KYAW LUCIANO GOLF COUR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-FELT CEMENTER Facility:A Start: 11-03-2023 End: 11-03-2023 SAME DAY STAY EZEKIEL QUIROS MD [facility] Start: 10-24-2023 End: 10-24-2023 ambulatory FRANNIE SMITH GOLF COUR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-FELT CEMENTER Facility:[facility] Start: 10-24-2023 End: 10-24-2023 Patient encounter procedure FRANNIE SMITH GOLF COUR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-FELT CEMENTER [facility] Start: 10-18-2023 End: 10-18-[address] CLOVER KATZ MD Facility:[facility] Start: 10-18-2023 End: 10-18-[address] CLOVER KATZ MD [facility] Start: 10-18-2023 End: 10-18-2023 Admission to establishment EZEKIEL QUIROS MD [facility] Start: 10-18-2023 End: 10-18-2023 ambulatory EZEKIEL QUIROS MD Facility:[facility] Start: 10-11-2023 End: 10-11-[address] CLOVER KATZ MD Facility:[facility] Start: 10-11-2023 End: 10-11-[address] CLOVER KATZ MD [facility] Start: 09-28-2023 End: 10-02-2023 ambulatory KAYLIE MEJÍA Facility:[facility] Start: 09-28-2023 End: 09-28-2023 Patient encounter procedure KAYLIE MEJÍA GOLF COUR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-FELT CEMENTER [facility] Start: 09-27-2023 End: 10-01-[address] JAKI FLEMING DO Facility:[facility] Start: 09-20-2023 End: 09-23-2023 Evaluation and management of inpatient DR TAYLOR RICARDO MD [facility] Start: 09-20-2023 End: 09-20-2023 Emergency department patient visit RUBY KHALIL DO [facility] Start: 09-20-2023 End: 09-20-2023 Emergency department patient visit RUBY KHALIL DO [facility] Start: 09-15-2023 ambulatory CHARMAINE WALLY GOLF COUR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-FELT CEMENTER F acility:B Start: 09-06-2023 End: 09-06-2023 Emergency department patient visit LASHAE MOULTON MD [facility] Start: 09-02-2023 End: 09-02-[address] ISABELLA JUSTICE MD Facility:[facility] Start: 09-02-2023 End: 09-02-[address] ISABELLA JUSTICE MD [facility] Start: 08-28-2023 End: 08-28-2023 Emergency department patient visit DR MAJO HOLDER MD [facility] Start: 08-24-2023 End: 08-24-2023 ambulatory TIFFANY MAON GOLF COUR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-FELT CEMENTER Facility:[facility] Start: 08-24-2023 End: 08-24-2023 Patient encounter procedure TIFFANY MAON GOLF COUR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-FELT CEMENTER [facility] Start: 07-08-2023 End: 07-08-2023 ambulatory EZEKIEL BURRIS Facility:[facility] Start: 07-08-2023 End: 07-08-2023 Patient encounter procedure EZEKIEL BURRIS MD [facility] Start: 06-28-2023 End: 06-28-[address] CLOVER KATZ MD Facility:[facility] Start: 06-20-2023 End: 06-20-[address] CLOVER KATZ MD Facility:[facility] Start: 06-20-2023 End: 06-20-[address] CLOVER KATZ MD [facility] Start: 05-31-2023 End: 06-01-2023 Emergency department patient visit LAYNE JARQUIN MD [facility] Start: 05-23-2023 End: 05-23-[address] JAKI FLEMING DO Facility:[facility] Start: 05-23-2023 End: 05-23-[address] JAKI FLEMING DO [facility] Start: 05-03-2023 End: 05-03-2023 Emergency department patient visit EMMANUEL HOLDER MD [facility] Start: 04-29-2023 End: 04-29-[address] CLOVER KATZ MD Facility:[facility] Start: 04-29-2023 End: 04-29-[address] CLOVER KATZ MD [facility] Start: 03-24-2023 End: 03-24-2023 Patient encounter procedure EZEKIEL BURRIS MD [facility] Start: 03-16-2023 End: 03-16-2023 Patient encounter procedure ANURADHA CHRISTINE GOLF COUR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-FELT CEMENTER [facility] Start: 03-15-2023 End: 03-16-[address] ISABELLA JUSTICE MD [facility] Start: 03-02-2023 End: 03-02-2023 Patient encounter procedure ANURADHA CHRISTINE GOLF COUR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-FELT CEMENTER [facility] Start: 03-02-2023 End: 03-02-2023 Patient encounter procedure ANURADHA CHRISTINE GOLF COUR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-FELT CEMENTER [facility] Start: 02-20-2023 End: 02-21-2023 Emergency department patient visit SILVIA HOWELL MD [facility] Start: 02-14-2023 End: 02-14-2023 Patient encounter procedure EZEKIEL BURRIS MD [facility] Start: 02-01-2023 End: 02-01-2023 SAME DAY STAY EZEKIEL BURRIS MD [facility] Start: 01-03-2023 End: 01-03-[address] JAKI FLEMING DO [facility] Start: 12-17-2022 End: 12-17-[address] ISABELLA JUSTICE MD [facility] Start: 08-31-2022 End: 08-31-2022 Patient encounter procedure CHARMAINE LO GOLF COUR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-FELT CEMENTER [facility] Start: 08-16-2022 End: 08-16-[address] JAKI FLEMING DO [facility] Start: 06-02-2022 End: 06-02-[address] ISABELLA JUSTICE MD [facility] Start: 04-28-2022 End: 04-28-[address] JAKI FLEMING DO [facility] Start: 04-02-2022 End: 04-02-[address] JAKI FLEMING DO [facility] Start: 03-09-2022 End: 03-09-[address] ISABELLA JUSTICE MD [facility] Start: 02-26-2022 End: 02-26-2022 Patient encounter procedure HOLLI RITTER PA-C [facility] Start: 02-16-2022 End: 02-16-[address] MAXIMUS CORONEL MD [facility] Start: 12-08-2021 End: 12-08-[address] ISABELLA JUSTICE MD [facility] Start: 11-05-2021 End: 11-05-[address] JAKI FLEMING DO [facility] Start: 10-20-2021 End: 10-20-[address] MARIYA ALVAREZ MD [facility] Start: 09-11-2021 End: 09-11-[address] MARIYA ALVAREZ MD [facility] Start: 06-23-2021 End: 06-23-[address] ISABELLA JUSTICE MD [facility] Start: 06-03-2020 End: 06-03-2020 Patient encounter procedure External Provider [facility] Start: 06-03-2020 Results Only External Provider Exter nal-[facility] Start: 09-15-2017 Ambulatory Allen Lenin Facility :[facility] Start: 03-11-2017 End: 03-12-2017 Ambulatory PHY WO ID REFERRING Facility:[facility] Procedures Date Procedure Procedure Detail Performing Clinician Start: 11-29-2024 Radex humerus minimum 2 views Fabiola barcenas GOLF COUR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.FELT CEMENTER Work Phone: Start: 09-21-[address] CLOVER KATZ MD Comment on above: WITH LEFT URETERAL STENT INSERTION, LEFT URETERSOSCOPY Start: 02-01-2023 MRI-US fusion guided transperineal biopsy of prostate ANURADHA CHRISTINE GOLF COUR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-FELT CEMENTER Start: 06-03-2020 End: 06-03-2020 EXTERNAL CARDIOLOGY External [...] DTaP,Tdap,Td Vaccine (2 - Td or Tdap) [facility] Start: 06-27-2025 End: 06-27-2025 ambulatory [facility] Comment on above: CBC 1MO OV/LAB EARLY*THI S DATE PER PATIENT Start: 05-16-2025 End: 05-16-2025 ambulatory [facility] Comment on above: (SO)CBC/CMP* 3MO OV/LAB EARLY* QMO ARANESP* Start: 05-06-2025 Influenza vaccination Influenza Vacc ine (#1) [facility] Start: 04-12-2025 End: 04-12-2025 ambulatory [facility] Comment on above: (SO)CBC 3MO OV Start: 01-04-2025 End: 01-04-2025 ambulatory 01/04/2025 10:10 AM EDT Visit (SP) Office Hematology/Oncology [address] [place] [address] Ha Luque MD [address], [place] [id number] 3 WK OV* Hematology/Oncology Comment on above: 3 WK OV* Start: 12-14-2024 End: 12-14-2025 Cobalamin (Vitamin B12) [Mass/volume] in Serum or Plasma [facility] Comment on above: Expected: 12/14/2024 , Expires: 12/14/2025 Start: 12-14-2024 End: 12-14-2025 Ferritin [Mass/volume] in Serum or Plasma [facility] Comment on above: Expected: 12/14/2024 , Expires: 12/14/2025 Start: 12-14-2024 End: 03-15-2025 Folate [Mass/volume] in Serum or Plasma [facility] Comment on above: Expected: 12/14/2024 , Expires: 03/15/2025 Start: 12-14-2024 End: 03-15-2025 Haptoglobin [Mass/volume] in Serum or Plasma [facility] Comment on above: Expected: 12/14/2024 , Expires: 03/15/2025 Start: 12-14-2024 End: 12-14-2025 Iron and Iron binding capacity panel - Serum or Plasma [facility] Work Phone: Comment on above: Expected: 12/14/2024 (Approximate), Expires: 12/14/2025 Start: 12-14-2024 End: 12-14-2024 ambulatory 12/14/2024 1:00 PM EDT Visit (SP) Office Hematology/Oncology [address] [place] [address] Ha Luque MD [address], [place] [phone] COOLER SERVICE SUPERVISOR/WORSENING ANEMIA/REF BY DR. LONNIE POLLACK* Hematology/Oncology Comment on above: COOLER SERVICE SUPERVISOR/WORSENING ANEMIA/ REF BY DR. LONNIE POLLACK* Start: 09-05-2024 Advance Directive Discussion Advance Directive Discussion [facility] Start: 09-05-2024 Medicare Advantage Annual Wellness Visit Medicare Advantage Annual Wellness Visit [facility] Start: 05-06-2024 Covid-19 Vaccine ( season) Covid-19 Vaccine ( season) [facility] Start: 09-05-2023 Advance Directive Discussion Advance Directive Discussion [facility] Start: 09-05-2023 Behavioral Health Screening Behavioral Health Screening [facility] Start: 05-06-2023 Covid-19 Vaccine ( season) Covid-19 Vaccine ( season) [facility] Start: 05-06-2020 Influenza vaccination INFLUENZA (#1) [facility] Start: 2002 ADVANCE DIRECTIVE DISCUSSION ADVANCE DIRECTIVE DISCUSSION [facility] Start: 2002 PNEUMOVAX AGE 65 AND OVER WITH 5YR LOOKBACK (#1) PNEUMOVAX AGE 65 AND OVER WITH 5YR LOOKBACK (#1) [facility] Start: 1997 RSV Vaccine (1 - 1-d ose 60+ series) RSV Vaccine (1 - 1-dose 60+ series) [facility] Start: 1987 SHINGRIX VACCINE (1 of 2) SHINGRIX VACCINE (1 of 2) [facility] Start: 1982 DIABETES SCREEN DIABETES SCREEN [facility] Start: 02-03-1956 Shingrix Vaccine (1 of 2) Shingrix Vaccine (1 of 2) [facility] Start: 02-03-1956 Urine microalbumin profile DTAP,TDAP,TD (1 - Tdap) [facility] Start: 1955 Anxiety Screening Anxiety Screening [facility] Start: 1955 Depression Screening Depression Scre ening [facility] Start: 1955 Hepatitis B surface antibody level LDL Cholesterol [facility] Start: 1947 Diabetic foot examination Diabetic Foot Exam [facility] Start: 1947 Glaucoma screening Dilated Retinal E xam [facility] Start: 1947 Hepatitis B screening Urine Albumin:Creatinine Ratio [facility] Start: 1942 Hemoglobin A1c measurement HbA1C [facility] End: 01-04-2026 CBC W Auto Differential panel - Blood COMPLETE BLOOD COUNT AND DIFFERENTIAL Lab Routine Anemia, unspecified type Every 3 months for 4 Occurrences starting 01/04/2025 until 01/04/2026 [facility] Work Phone: Comment on above: Every 3 months for 4 Occurrences starting 01/04/2025 until 01/04/2026 [facility] Immunizations Immunization Date Immunization Notes Care Provider [facility] 06-26-2024 influenza virus vacc ine, unspecified formulation Heather Awan RN Work Phone: [facility] 07-13-2023 influenza virus vacc ine, unspecified formulation [facility] 07-06-2022 SARS-CoV-2 (CV19)mRNA-1273 bivalent vac [facility] 06-12-2022 influenza virus vacc ine, unspecified formulation [facility] 07-28-2021 SARS-CoV-2 (COVID-19 ) mRNA-1273 vaccine [facility] 06-26-2021 influenza virus vacc ine, unspecified formulation [facility] 10-30-2020 SARS-CoV-2 (COVID-19 ) mRNA-1273 vaccine [facility] Comment on above: Result Comment: 2023: [id number] 10-02-2020 SARS-CoV-2 (COVID-19 ) mRNA-1273 vaccine [facility] 06-24-2020 influenza virus vacc ine, unspecified formulation DR CLOVER KATZ MD [facility] 07-20-2018 influenza virus vacc ine, unspecified formulation DR CLOVER KATZ MD [facility] 07-20-2018 tetanus toxoid, redu solomon diphtheria toxoid, and acellular pertussis vaccine, adsorbed [facility] 08-23-2017 influenza virus vacc ine, unspecified formulation DR CLOVER KATZ MD [facility] 08-23-2017 pneumococcal polysaccharide vaccine, [address] CLOVER KATZ MD [facility] 09-12-2016 pneumococcal conjuga te vaccine, [address] CLOVER KATZ MD [facility] 08-23-2015 influenza virus vacc ine, unspecified formulation DR CLOVER KATZ MD [facility] Payers Date Payer Category Payer Medicare [id number] 2024 Medicare (Managed Care) [facility] HMO [id number] 2024 Unknown [id number] 2024 Self-pay 2023 Medicare [id number] 2023 Private Health Insurance [id number] 2023 Medicare [id number] 2023 Private Health Insurance [id number] 2023 Unknown [id number] 2015 Unknown [id number] 2013 Medicare [id number] 2013 Medicare [id number] 2010 Unknown ANTHEM BLUE CROS S AND BLUE SHIELD ANTHEM MEDIBLUE HMO [id number] 2010-Present HMO [id number]. [id number] 1937 Unknown [id number] 2.16.840.1.902279.3.579.2. 1937 Unknown [id number] 2.16.840.1.776667.3.579.2. 1937 Unknown [id number] 2.16.840.1.024435.3.579.2 1937 Unknown [id number] 2.16.840.1.354499.3.579.2 1937 Unknown [id number] 2.16.840.1.109378.3.579.2 1937 Unknown [id number] 2.16.840.1.932416.3.579.2 1937 Unknown [id number] 2.16.840.1.212754.3.579.2 1937 Unknown [id number] 2.16.840.1.738037.3.579.2 1937 Unknown [id number] 2.16.840.1.398469.3.579.2 1937 Unknown [id number] 2.16.840.1.516489.3.579.2 1937 Unknown [id number] 2.16.840.1.984268.3.579.2 1937 Unknown [id number] 2.16.840.1.930623.3.579.2 1937 Unknown [id number] 2.16.840.1.830117.3.579.2. 1937 Unknown [id number] 2.16.840.1.052112.3.579.2. 1937 Unknown [id number] 2.16.840.1.256148.3.579.2 1937 Unknown [id number] 2.16.840.1.417945.3.579.2 1937 Unknown [id number] 2.16.840.1.346325.3.579.2 1937 Unknown [id number] 2.16.840.1.679531.3.579.2 1937 Unknown [id number] 2.16.840.1.203138.3.579.2 1937 Unknown [id number] 2.16840.1.309590.3.579.2 1937 Unknown [id number] 2.16840.1.836609.3.579.2 1937 Unknown [id number] 2.16840.1.105291.3.579.2 1937 Unknown [id number] 2.16.840.1.272586.3.579.2 1937 Unknown [id number] 2.16840.1.610523.3.579.2 1937 Unknown [id number] 2.16.840.1.007537.3.579.2 1937 Unknown [id number] 2.16.840.1.401128.3.579.2 1937 Unknown [id number] 2.16.840.1.740600.3.579.2 1937 Unknown [id number] 2.16.840.1.893917.3.579.2 1937 Unknown [id number] 2.16.840.1.731703.3.579.2. 1937 Unknown [id number] 2.16.840.1.540517.3.579.2 1937 Unknown [id number] 2.16.840.1.028049.3.579.2. 1937 Unknown [id number] 2.16.840.1.043436.3.579.2 1937 Unknown [id number] 2..840.1.424845.3.579.2 1937 Unknown [id number] 2.840.1.084169.3.579.2 1937 Unknown [id number] 2.840.1.723780.3.579.2 1937 Unknown [id number] 2.840.1.807537.3.579.2 1937 Unknown [id number] 2.840.1.508934.3.579.2 1937 Unknown [id number] 2.840.1.144877.3.579.2 1937 Unknown [id number] 2.840.1.237304.3.579.2 1937 Unknown [id number] 2.16840.1.510900.3.579.2 1937 Unknown [id number] 2.16.840.1.814915.3.579.2 1937 Unknown [id number] 2.16.840.1.325756.3.579.2 1937 Unknown [id number] 2.16840.1.601918.3.579.2 1937 Unknown [id number] 2.16.840.1.036210.3.579.2. 1937 Unknown [id number] 2.16.840.1.659714.3.579.2 1937 Unknown [id number] 2.16.840.1.809067.3.579.2 1937 Unknown [id number] 2.16.840.1.095003.3.579.2 1937 Unknown [id number] 2.16.840.1.940441.3.579.2 1937 Unknown [id number] 2.840.1.297216.3.579.2 1937 Unknown [id number] 2.840.1.128374.3.579.2 1937 Unknown [id number] 2.840.1.104311.3.579.2 1937 Unknown [id number] 2.840.1.792287.3.579.2 1937 Unknown [id number] 2.840.1.833572.3.579.2 1937 Unknown [id number] 2.16840.1.201274.3.579.2 1937 Unknown [id number] 2.16840.1.727660.3.579.2 1937 Unknown [id number] 2.16840.1.998037.3.579.2 1937 Unknown [id number] 2.16.840.1.673785.3.579.2 1937 Unknown [id number] 2.16840.1.904899.3.579.2 Unknown [id number] Unknown [id number] 2.16.840.1.695658.3.579.2. 462 Unknown [id number] 2.16.840.1.013296.3.579.2. 462 Unknown [id number] 2.16.840.1.903258.3.579.2. 462 Unknown [id number] 2.16.840.1.405936.3.579.2. 462 Unknown [id number] 2.16.840.1.761293.3.579.2. 462 Unknown [id number] 2.16.840.1.383842.3.579.2. 462 Social History Date Type Detail Facility Tobacco smoking stat [facility] Unknown if ever smoked [facility] Start: 1937 Sex Assigned At Not on file [facility] Tobacco Nicotine Use: denies. [facility] Start: 03-16-2023 End: 02-11-2024 Never smoked tobacco (finding) [facility] Start: 1935 Sex Assigned At Male A [facility] Start: 02-11-2024 Tobacco use and exposure Smokeless tobacco non-user [facility] Start: 02-11-2024 Alcohol intake Lifetime non-d wojciech (finding) [facility] Start: 02-11-2024 End: 12-14-2024 History of Social function [facility] Start: 02-11-2024 End: 12-14-2024 Tobacco use panel [facility] Start: 08-06-2012 National Score (1-100), lower number is lower risk Not on file [facility] Sexual Orientation [facility] Start: 04-29-2020 Sex Male (finding) [facility] Start: 11-29-2024 End: 05-16-2025 Alcoholic beverage intake Ex-drinker (finding) [facility] Tobacco smoking stat us [facility] Unknown if ever smoked [facility] Work Phone: How often to you hav e a drink containing alcohol? Never [facility] NEGATED: Highlighted rowStart: VANESSA History of tobacco use Passive smoker [facility] Medical Equipment Procedure Code Equipment Code Equipment [...] 05/16/20 25 9:36 AM Ramon Martinez MA [facility] 09-09-2024 Functional Status Room check performed [facility] 09-09-2024 Functional Status [facility] 09-09-2024 Functional Status [facility] 09-09-2024 Functional Status [facility] 09-09-2024 Functional Status Nurse Safety Fritz alvarez q2hrs Performed 7pm-7am [facility] 09-08-2024 Functional Status Done [facility] 09-08-2024 Functional Status 100 [facility] 09-08-2024 Functional Status [facility] 09-08-2024 Functional Status [facility] 09-08-2024 Functional Status owns a station carlos bike (09/08/24) [facility] 09-08-2024 Functional Status [facility] 09-07-2024 Functional Status [facility] 09-07-2024 Functional Status 100 [facility] 09-07-2024 Functional Status Minimum assistance [facility] 09-07-2024 Functional Status [facility] 05-27-2024 Functional Status Awake [facility] 05-04-2024 Functional Status Standard Safet y ID band on, Call device within reach, Bed in low position, Wheels locked, Upper/Half-Length side-rails up, Phone within reach, personal items within reach, Visitor at bedside, Safety level maintained [facility] 11-03-2023 Functional Status Activity Blake tance Minimum assistance [facility] 11-03-2023 Functional Status Awake [facility] 11-03-2023 Functional Status Maintained [facility] 10-18-2023 Functional Status Sensory Deficits None A [facility] 10-18-2023 Functional Status Sensory Defici ts Uncorrected visual impairment [facility] 09-23-2023 Functional Status Room check performed [facility] 09-23-2023 Functional Status Done [facility] 09-23-2023 Functional Status [facility] 09-23-2023 Functional Status Nurse Robby alvarez q2hrs Performed 3am-7am [facility] 09-23-2023 Functional Status Grzegorz Ruiz [facility] 09-22-2023 Functional Status Grzegorz [facility] 09-21-2023 Functional Status Grzegorz [facility] 09-21-2023 Functional Status Grzegorz [facility] 09-21-2023 Functional Status Driving, Personal ADL [facility] 09-21-2023 Functional Status Patient Identi fied Identification band, Verbal [facility] 09-20-2023 Functional Status Sensory Deficits None A [facility] 09-20-2023 Functional Status Standard Safet y ID band on, Call device within reach, Bed in low position, Wheels locked, Upper/Half-Length side-rails up, Phone within reach, personal items within reach [facility] 09-20-2023 Functional Status Up ad marly Grzegorz [facility] 09-20-2023 Functional Status Grzegorz [facility] 09-06-2023 Functional Status Independent Grzegorz [facility] 08-28-2023 Functional Status [facility] 06-01-2023 Functional Status Independent Grzegorz [facility] 05-31-2023 Functional Status Repositions self [facility] 05-03-2023 Functional Status ID band on, Call device within reach, Bed in low position, Wheels locked [facility] 04-29-2023 [facility] Functional Status ID band on, Call device within reach, Bed in low position, Wheels locked, Upper/Half-Length side-rails up, Phone within reach, Visitor at bedside [facility] 02-01-2023 Functional Status Ambulating in room [facility] 02-01-2023 Functional Status Grzegorz [facility] 02-01-2023 Functional Status Maintained [facility] Mental Status Date Assessment Result Facility 09-09-2024 Mental Status Oriented x 4 [facility] 09-09-2024 Mental Status [facility] 09-08-2024 Mental Status [facility] 09-08-2024 Mental Status [facility] 05-27-2024 Mental Status Oriented x 4 [facility] 05-04-2024 Mental Status Orientation Oriented x 4 [facility] 11-03-2023 Mental Status Orientation Oriented x 4 [facility] 11-03-2023 [facility] Status Orientation Oriented x 4 [facility] 09-23-2023 Mental Status Orientation Oriented x 4 [facility] 09-22-2023 [facility]-22[facility] Mental Status Orientation Asse ssment Oriented x 4 [facility] 09-21-2023 [facility] [facility] [address] [facility] 09-20-2023 Mental Status Orientation Oriented x 4 [facility] 09-20-2023 Mental Status Orientation Oriented x 4 [facility] 09-20-2023 [facility] 09-06-2023 Mental Status Orientation Oriented x 4 [facility] 09-06-[address] [facility] 05-31-2023 Mental Status Orientation Oriented x 4 [facility] 05-03-2023 Mental Status Oriented x 4 [facility] 04-29-2023 Mental Status Oriented x 4 [facility] 02-20-2023 Mental Status Oriented x 4 [facility] 02-01-2023 Mental Status Oriented x 4 [facility] 02-01-2023 Mental Status Orientation Asse ssment Oriented x 4 [facility] Clinical Notes 02-01-2023 to 06-27-2025 Ha Luque MD - 05/16/2025 9:51 AM EDTPAltagracia hernandez LPN - 05/16/2025 9:50 AM EDT Note Date & Type Note Facility 06-27-2025 Note HNO ID: [id number] Author: HA LUQUE MD Service: ? Author [...] pancytopenia. Had RT to prostate 2022 at [facility]. 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 [facility] 05-16-2025 Note HNO ID: [id number] Author: HA LUQUE MD Service: ? Author [...] pancytopenia. Had RT to prostate 2022 at [facility]. 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 [facility] 05-16-2025 History of Present illness Narrative (Elements copied from my note dated April 17, 2025, have been reviewed and updated where appropriate, and all reflect current assessment and medical decision making from today's encounter, May 16, 2025) HISTORY OF PRESENT ILLNESS: Jaylen Galaviz is a 89 year old male referred for pancytopenia. Had RT to prostate 2022 at [facility]. 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 Centrilobular emphysema (HCC) CKD (chronic kidney [...] ROBERT (obstructive sleep apnea) PMR (polymyalgia rheumatica) ([facility]) Pulmonary fibrosis ([facility]) Rectus diastasis of lower abdomen S/P AVR [...] which included preparing to see the patient, [id number] patient care, completing clinical documentation, obtaining and/or reviewing separately obtained history, counseling and educating the patient/family/caregiver, ordering medications, tests, or procedures, independently interpreting results (not separately reported), and communicating results to the patient/family/caregiver. Electronically Signed: Ha Luque MD May 16, 2025 documented in this encounter [facility] 05-16-2025 Note HNO ID: [id number] Author: ALTAGRACIA TAFOYA LPN Service: ? Author Type: Licensed Nurse Type: Progress Notes Filed: 05/16/2025 09:50 Note Text: Hgb 10.2. Injection deferred. Altagracia Tafoya LPN [facility] 05-16-2025 History of Present illness Narrative Hgb 10.2. Injection deferred. Altagracia Tafoya LPN documented in this encounter [facility] 05-16-2025 Evaluation note Diagnosis Anemia, unspecified type- Primary Stage 3a chronic kidney disease (HCC) documented in this encounter [facility]08-13-2025 NoteHNO ID: [id number] Author: SHANNON EISENBERG LPN Service: ? Author Type: LICENSED NURSE Type: Progress Notes Filed: 04/17/2025 13:49 Note Text: Patient here for injection of Aranesp. Given SQ in left arm. Patient tolerated well. Shannon Eisenberg [facility]08-13-2025 History of Present illness Narrative* Shannon Eisenberg [...] pancytopenia. Had RT to prostate 2022 at [facility]. 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 Electronically Signed: Ha Luque MD April 17, 2025 [facility]25 NoteHNO ID: [id number] Author: HA LUQUE MD Service: ? Author [...] pancytopenia. Had RT to prostate 2022 at [facility]. 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 Centrilobular emphysema (HCC) CKD (chronic kidney [...] COMPLEX,PUMPK-ZN, ORAL) Take by (more content not included)...[facility]08-13-2025 Evaluation note* Diagnosis Anemia, unspecified type- Primary Stage 3a chronic kidney disease (HCC) documented in this encounter [facility]07-02-2025 Telephone encounter Note* Telephone Encounter - Xavi Jacques - 03/06/2025 1:38 PM EDT Patient's requested appointments have been canceled Xavi Ellison [facility]07-02-2025 Miscellaneous Notes* Telephone Encounter - Xavi Jacques - 03/06/2025 1:38 PM EDT Patient's requested appointments have been canceled Xavi Ellison * Telephone Encounter - Heather Awan RN - 03/06/2025 12:05 PM EDT PSS: Please cancel upcoming appointments on 04/12/25. Patient will reach out if he wished to reschedule. Gaye Awan RN Called and spoke with Frannie at Dr. Adela Fleming office at [facility]. She is aware of conversationwith patient and he request cancellation of f/u appt. She ask if we can fax last 2 office note to her for Dr. Fleming to review. . These will be faxed today. Gaye Awan RN * Telephone Encounter - Heather Awan RN - 03/06/2025 11:57 AM EDT Received referral from PCP for anemia and records from [facility]. 02/26/25 Lab, Hgb 9.4, stable [...] questions/concerns. Gaye Awan RN [facility] Telephone encounter Note * Telephone Encounter - Heather Awan RN - 03/06/2025 12:05 PM EDT PSS: Please cancel upcoming appointments on 04/12/25. Patient will reach out if he wished to reschedule. Gaye Awan RN Called and spoke with Frannie at Dr. Adela Fleming office at [facility]. She is aware of conversationwith patient and he request cancellation of f/u appt. She ask if we can fax last 2 office note to her for Dr. Fleming to review. . These will be faxed today. Gaye Awan RN [facility] Work Phone: [phone]) 272-190207-02-2025 Telephone encounter Note* Telephone Encounter - Heather [...] and denies further questions/concerns. Gaye Awan RN [facility]07-02-2025 Note* Exam Date Time Procedure Performing Provider Status 03/06/25 10:[address] Head or Brain w/o Contrast Yovani RUVALCABA MD; Auth (Verified) [id number] ORIGINAL EXAMINATION: CT OF THE HEAD WITHOUT [...] 03/06/2025 10:19:54 AM Ordering Provider: JAKI FLEMING [facility]05-02-2025 NoteHNO ID: [id number] Author: HA LUQUE MD Service: ? Author [...] for pancytopenia. Had RT to prostate 2022 [facility]. 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 Had RT to prostate 2022 [facility]. 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 Electronically Signed: Ha Luque MD January 04, 2025 documented in this encounterK[facility]04-[facility]-2025 NoteHNO ID: [id number] Author: HA LUQUE MD Service: ? Author Type: Physician Type: Progress Notes Filed: 12/14/2024 13:28 Note Text: HISTORY OF PRESENT ILLNESS: Jaylen Galaviz is a 89 year old male referred for pancytopenia. Had RT to prostate 2022 [facility]. 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 Had RT to prostate 2022 [facility]. 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 Electronically Signed: Ha Luque MD December 14, 2024 1:05 PM documented in this encounterK[facility]03-[facility]25 Telephone encounter Note * Telephone Encounter - Paulette Mckeon - 12/03/2024 9:14 AM EDT Scheduled with patient [facility] Work Phone: [phone] Miscellaneous Notes* Telephone Encounter - Paulette Mckeon - 12/03/2024 9:14 AM EDT Scheduled with patient * Telephone Encounter - Shilpa Trivedi - 11/28/2024 11:12 AM EDT Lvm for patient to return the call. When patient calls back please schedule with either provider 1st available Folder at the senior abap developer COOLER SERVICE SUPERVISOR/WORSENING ANEMIA/REF BY DR. LONNIE POLLACK* Shilpa Trivedi documented [facility] Instructions* Patient Instructions* 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 APRN.CNP - 11/29/2024 12:03 PM EDT OK to resume therapy. Follow printed instructions from Up to date. Follow up with PCP if no improvement in 1-2 weeks documented in this encounterK[facility] History of Present illness Narrative* Doug Hansen [...] PATIENT PRESENTS WITH AN IMPLANTABLE OR ATTACHED FLAT HAMMERER: No RADIOLOGY DEPARTMENT: General X-ray: Exam(s) Completed: Upper Extremity X- Ray(s): Humerus, left PERIPHERAL IV DATA: Not applicable SIGNED BY: RT Vasu(R) November 29, 2024 12:05 PM documented in this encounterK[facility]03-27-2025 NoteHNO ID: [id number] Author: DOUG HANSEN RT(Kaycee) Service: ? Author [...] PATIENT PRESENTS WITH AN IMPLANTABLE OR ATTACHED FLAT HAMMERER: No RADIOLOGY DEPARTMENT: General X-ray: Exam(s) Completed: Upper Extremity X-Ray(s): Humerus, left PERIPHERAL IV DATA: Not applicable SIGNED BY: RT Vasu(R) November 29, 2024 12:05 [facility] NoteHNO ID: [id number] Author: FABIOLA CROSS APRN.MINDY Service: ? Author Type: Nurse Practitioner Type: Progress Notes Filed: 11/29/2024 12:58 Note Text: [facility] Subjective Jaylen Galaviz [...] agreed with plan and discharged kailey Cross APRN.FELT CEMENTER [facility]03-27-2025 History of Present illness Narrative* 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 APRN.MINDY - 11/29/2024 11:06 AM EDT Images from the original note were not included. [facility] Galaviz is a [...] agreed with plan and discharged kailey Cross APRN.FELT CEMENTER MDM Procedures * Chelita Lawson LPN - 11/29/2024 10:57 AM EDT Patient unable to verify medication list at this time. Chelita Lawson LPN documented in this encounterK[facility]03-27-2025 NoteHNO ID: [id number] Author: CHELITA LAWSON LPN Service: ? Author Type: LICENSED NURSE Type: Progress Notes Filed: 11/29/2024 12:58 Note Text: Patient unable to verify medication list at this time. [facility] Telephone encounter Note* Telephone Encounter - Shilpa Trivedi - 11/28/2024 11:12 AM EDT Lvm for patient to return the call. When patient calls back please schedule with either provider 1st available Folder at the senior abap developer COOLER SERVICE SUPERVISOR/WORSENING ANEMIA/REF BY DR. LONNIE POLLACK* Shilpa Trivedi [facility]02-12-2025 Note* Exam Date Time Procedure Performing Provider Status 10/17/24 8:36 AM Transesophageal Echo cardiogram - CV MILLIE IRVIN MD; Auth (Verified) [id number] Note. MICRO - Microbiology PROCEDURE: Blood Culture [...] Locations *1: This test was performed at: [address], [address] [place], [place] [address]01-18-2025 Note. MICRO - Microbiology PROCEDURE: Blood Culture [...] Locations *1: This test was performed at: [address]01-05-2025 Hospital Discharge instructions Patient Education 09/09/2024 13:36:03 Stroke Prevention, Tyfw-up-Plsi Stroke Prevention Some medical conditions and lifestyle [...] only healthy fats for cooking. These include: ?Decherd oil. ?Canola oil. ?Moccasin oil. ?Counting how many carbohydrates you eat [...] ?Snoring a lot. ?Feeling very tired. Take nwak-bev-hrylmxv and prescription medicines only as told by your doctor. These may include aspirin or blood thinners (antiplatelets or anticoagulants). Make sure that any other medical conditions you have are managed. Where to find more information [place] Stroke Association: www.strokeassociation.org National Stroke Association: www.stroke.org [...] 02/20/2013 Document Revised: 10/18/2019 Document Reviewed: 11/23/2017 [employer] Patient Education 2020 [employer]. Follow Up Care 09/06/2024 23:42:54 With:JAKI FLEMING DO, Internal Medicine, [facility] / Address: [address] [place] [address] [place] [address]- [phone] When:5 to 7 days [facility] 01-05-2025 Note Discharge Instructions Thank you for allowing [facility] to assist you with your healthcare needs. 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 These include: ? Decherd oil. ? Canola oil. ? Moccasin oil. ? Counting how many carbohydrates you [...] a lot. ? Feeling very tired. Take remr-eab-ddvxryd and prescription medicines only as told by your doctor. These may include aspirin or blood thinners (antiplatelets or anticoagulants). Make sure that any other medical conditions you have are managed. Where to find more information [place] Stroke Association: www.strokeassociation.org National Stroke Association: www.stroke.org [...] Document Reviewed: 11/23/2017 Elsevier Patient Education 2020 [employer]. Additional Information VACCINATE! IT SAVES LIVES! Members of the community who have not yet received the COVID-19 vaccine and would like to receive it can visit one of [facility] vaccine clinics. There are many vaccine clinic locations within the [facility]. For locations and available times, please visit https://[email or web address].[place].gov/. It is important to note that some COVID mobile vaccine clinics are held outdoors and may be canceled in rainy or stormy conditions. To learn more about pediatric vaccinations (ages 5-11), we invite you to visit the [employer] webpage. https://www.Guardian [employer]ss.org/pages/9726-Svsfo-Iqakpqbtcdo-Hytkrljhbz-Tesbb-Vey stions.htmlTo learn more about the COVID-19 vaccine, we invite you to visit the CDC website for a list of frequently asked questions.https://www.cdc.gov/coronavirus/2019-ncov/vaccines/faq.html YOU[facility]ite Patient Portal Access Instructions: Stay connected with your healthcare team and access your personal medical information anytime with the YOUnite Patient Portal. Please follow the directions below to create your YOUnite account: 1.Access the email account you provided upon registration to the hospital/physician office.2.Look for an invitation email from [facility].3.Open the email and access the invitation link: AcceptInvitation to [facility].4.Fill in the required ortega to create your account. To access your account, visit Hordspot/Pod InnsOneChart. Click the blue button labeled Access Patient [...] who you will allowto register on the [facility] for access to your information. You can also access the [facility] Patient Portal on the [facility] jyoti. Simply click on Patient Portal and then log into your account. If you would like to receive a full copy of your medical records, please contact the [facility] Medical Records Department by calling [phone], Tuesday through Tuesday between 8 a.m. and [...] Call your local pharmacy or go to http://Across The [email or web address] to find one close to you.3.Make use of household items: Use cat litter or old coffee grounds to dispose medications if other options arenot available. Mix your drugs with these household products, seal them in an airtight container andthrow it into the garbage. Call [facility]: [phone] to be sure your drugs can be [...] COPY. Signatures Patient Education Materials Stroke Prevention, Juqn-ve-Znxh Medication Leaflets My discharge plan and instructions have been reviewed and explained to me and I,JAYLEN GALAVIZ understand my current condition and have read and understand these discharge instructions. I have received a written copy of the plan/instructions. If I have questions, I am aware that I should contact my doctor. Patient/Credit And Collections Analyst Signature: Date/Time: Relationship to Patient: Witness Name/Signature: Date/Time: [facility] [id number] Discharge summary Date of Service 09/09/24 Discharge [...] MD on 09/09/2024 12:59 PM [facility] [id number] Note* Exam Date Time Procedure Performing Provider Status 09/09/24 11:58 AM Echocardiogram, Adult - CV ELOISA HOGAN MD; Auth (Verified) [facility] [id number] Note* Exam Date Time Procedure Performing Provider Status 09/09/24 11:42 AM VL Carotid US/Dopple r Complete - CV EZEKIEL SHERWOOD MD; Auth (Verified) [facility] [id number] Note* Exam Date Time Procedure Performing Provider Status 09/08/24 5:[address] Head or Brain w/o Contrast MALCOM WILLSON DO; Auth (Verified) [id number] ORIGINAL EXAMINATION: CT OF THE HEAD WITHOUT [...] Sign Date: 09/08/2024 8:58:52 PM Ordering Provider: [facility]01-04-2025 Note* Exam Date Time Procedure Performing Provider Status 09/08/24 5:00 PM XR Foreign Body Loc Eye Bilateral TYSON AUSTIN MD; Auth (Verified) [id number] ORIGINAL EXAMINATION: XR OR FOREIGN BODY 09/08/2024 [...] PM Ordering Provider: JORDI MOODY [facility] [id number] History and physical note Chief Complaint The [...] with obstruction/lower urinary tract symptoms 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, [place]4N, 09/07/24 21:23:00 EST Follow Clinical Pathway, 09/07/24 21:23:00 EST, Constant order, Ischemic Stroke Ischemic Stroke Education, 09/07/24 21:23:00 EST, qAM, Give Understanding Stroke patient education booklet to patient MRI Brain w/o Contrast, 09/07/24 21:23:00 EST, 09/07/24 21:23:00 EST, Routine, TIA, with Diffusion,Wt k.6, Metal in Eyes: Yes, Prior Valve Replacement: Yes, [facility], MT4N Neurological Check, 09/07/24 21:23:00 EST, q4hr NIH [...] 16:37:00 EST, Carotid Stenosis, [facility], PatientBed, [facility], MT4N, 09/08/24 16:37:00 EST XR Orbits Minimum 4 Views, 09/08/24 16:35:00 EST, 09/08/24 16:35:00 EST, Routine, Clearance for MRI, Portable: No, Wt k.6, 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, [facility], 09/07/24 21:23:00 EST Follow Clinical Pathway, 09/07/24 21:23:00 EST, Constant order, Ischemic Stroke Ischemic Stroke Education, 09/07/24 21:23:00 EST, qAM, Give Understanding Stroke patient education booklet to patient MRI Brain w/o Contrast, 09/07/24 21:23:00 EST, 09/07/24 21:23:00 EST, Routine, TIA, with Diffusion, Wt k.6, Metal in Eyes: Yes, Prior Valve Replacement: Yes, [facility], [facility] Neurological Check, 09/07/24 21:23:00 EST, q4hr [...] EST, Carotid Stenosis, [facility], Patient Bed, [facility], [facility], 09/08/24 16:37:00 EST XR Orbits Minimum 4 Views, 09/08/24 16:35:00 EST, 09/08/24 16:35:00 EST, Routine, Clearance for MRI, Portable: No, Wt k.6, [facility], [facility] Future Appointments Appointment Date:12/11/2024 10:30:00 AM [...] NM Myocardial Spect Rest/Stress 09/21/23 [facility] 01-04-2025 Note* Exam Date Time Procedure Performing Provider Status 09/08/24 1:45 PM MRI Brain w/o Contrast ANGELICA WILLSON DO; Auth (Verified) [id number] ORIGINAL EXAMINATION: MRI OF THE BRAIN WITHOUT [...] PM Ordering Provider: JORDI MOODY [facility] [id number] Neurology Consult note Date of Service 09/08/2024 Reason for Consultation Stroke History of Present Illness 89-year-old male with past medical history of GERD, prostate cancer s/p radiation, CABG who presented after a mechanical fall. The patient has been having intermittent different symptoms for the last3 months. Initially he had an episode of double vision and was seen by boiler room helper. 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 Chronic venous insufficiency Elevated PSA Family [...] MD on 09/08/2024 12:22 PM [facility] [id number] Note* Exam Date Time Procedure Performing Provider Status 09/07/24 8:[address] Head or Brain w/o Contrast YESENIA RUVALCABA MD; Auth (Verified) [id number] ORIGINAL EXAMINATION: CT OF THE HEAD WITHOUT [...] Sign Date: 09/07/2024 8:25:53 AM [facility]* Exam Date Time Procedure Performing Provider Status 09/07/24 6:35 AM EKG (ED) - CV EMMANUEL HOLDER MD; Auth (Verified) ECG Final Report SINUS ARRHYTHMIA PROLONGED SD INTERVAL CONSIDER ANTERIOR INFARCT Electronic Signature: EMMANUEL HOLDER MD 09/07/2024 13:47:59 [facility] [id number] Note* Exam Date Time Procedure Performing Provider Status 09/07/24 6:25 AM XR Chest 1 View EZEKIEL MENCHACA MD; Auth (Verified) [id number] ORIGINAL EXAMINATION: ONE XRAY VIEW OF THE [...] Sign Date: 09/07/2024 7:29:17 AM Ordering Provider: [facility]12-13-2024 Note* Exam Date Time Procedure Performing Provider Status 08/17/24 10:16 AM VL Venous US/Doppler One Leg (for DVT). Auth (Verified) [facility] 09-22-2024 Hospital Discharge instructions Patient Education 05/27/2024 [...] cloth between the cold sourceand the skin). 2464-1983 [employer]. [address] [place] [address], [place] [address]. All rights reserved. This information is not intended as a substitute for professional medical care. Always follow yourhealthcare professional's instructions. Follow Up Care 05/27/2024 09:13:31 With:JAKI FLEMING DO, Internal Medicine, [facility] / IM Address: [address] [place] [address] [place] [address] [phone] When:2-4 days [facility] 09-22-2024 Emergency department Discharge summary Discharge Instructions Thank you for allowing [facility] to assist you with your healthcare needs. [...] Medical Specialties / IM When:Within 2-4 days Where:[address] [facility] [place] [address]- [phone] Allergies NKA Medications Please ask your primary [...] cloth between the cold sourceand the skin). 1510-3716 [employer]. [address] [place] [address], [place] [address]. All rights reserved. This information is not intended as a substitute for professional medical care. Always follow yourhealthcare professional's instructions. Additional Information VACCINATE! IT SAVES LIVES! Members of the community who have not yet received the COVID-19 vaccine and would like to receive it can visit one of [facility] vaccine clinics. There are many vaccine clinic locations within the [facility]. For locations and available times, please visit www.gettheshot.coronavirus.[place].gov/. It is important to note that some COVID mobile vaccine clinics are held outdoors and may be canceled in rainy or stormy conditions. To learn more about pediatric vaccinations (ages 5-11), we invite you to visit the [facility] webpage. https://www.[facility].org/pages/9548-Tsiae-Dyxsikqfvhd-Jqhvvyakdy-Pnwwd-Xmo stions.htmlTo learn more about the COVID-19 vaccine, we invite you to visit the CDC website for a list of frequently asked questions. https://www.cdc.gov/coronavirus/2019-ncov/vaccines/faq.html [facility] Patient Portal Access Instructions: Stay connected with your healthcare team and access your personal medical information anytime with the [facility] Patient Portal. If you would like a full copy of your medical records please contact the [facility] Medical Records Department Tuesday through Tuesday between 8a.m. and 4:30p.m. Please follow the directions below to access the portal: 1.Access the email account you provided upon registration to the hospital.2.Look for an invitation email from [facility].3.Open the email and access the invitation link: Accept Invitation to [facility]University [facility]4.Fill in the required ortega to create your [...] you will allow to register on the [facility] Patient Portal for access to your information. You can also access the [facility] Patient Portal on the [employer]. Simply click on Health Records under [employer] and then click on the Grzegorz logo. [...] Call your local pharmacy or go to [email or web address]/[email or web address] to find one close to you.3.Make use of household items: Use cat litter or old coffee grounds to dispose medications if other options arenot available. Mix your drugs with these household products, seal them in an airtight container andthrow it into the garbage. Call [facility]: [phone] to be sure your drugs can be [...] aware that I should contact my doctor. Patient/Credit And Collections Analyst Signature: Date/Time: Relationship to Patient: Witness Name/Signature: Date/Time: [facility] [id number] Hospital Discharge instructions Patient Education 05/04/2024 12:27:26 [...] foods again, start with small amounts of yjeu-cf-ffwbzd, low- fat foods. These include apple sauce, [...] increase stomach acid. Don't use aspirin or rnpp-ayq-jldetzs pain and fever medicines, if possible. This includes nonsteroidal anti-inflammatory drugs (NSAIDs). Lose excess weight. Finish eating at least 2 hours before you go to bed or lie down. Raise the head of your bed. 0653-3625 [employer]. [address] [place] [address]. All rights reserved. This information is not intended as a substitute for professional medical care. Always follow yourhealthcare professional's instructions. Follow Up Care 05/04/2024 06:40:36 With:JAKI FLEMING DO, Internal Medicine, [facility] / IM Address: [address] [place] [address] [place] [address]- [phone] When:2-4 days [facility] 08-30-2024 Emergency department Discharge summary Discharge Instructions Thank you for allowing [facility] to assist you with your healthcare needs. The following is importantdischarge information regarding your hospital visit. What to Do Next Instructions from Your Care Team No qualifying data available. Post Acute Orders No qualifying data available. You Need to Schedule the Following Appointments Follow Up with JAKI FLEMING DO, Internal Medicine, [facility] / IM When:Within 2-4 days Where:[address] [place] [address] [place] [address]- [phone] Allergies NKA Medications Please ask your primary [...] foods again, start with small amounts of teic-kc-vigqxk, low- fat foods. These include apple sauce, [...] increase stomach acid. Don't use aspirin or fvrx-elx-txqtlho pain and fever medicines, if possible. This includes nonsteroidal anti-inflammatory drugs (NSAIDs). Lose excess weight. Finish eating at least 2 hours before you go to bed or lie down. Raise the head of your bed. 0546-5704 [employer]. [address] [place] [address]. All rights reserved. This information is not intended as a substitute for professional medical care. Always follow yourhealthcare professional's instructions. Additional Information VACCINATE! IT SAVES LIVES! Members of the community who have not yet received the COVID-19 vaccine and would like to receive it can visit one of [facility] vaccine clinics. There are many vaccine clinic locations within the [facility]. For locations and available times, please visit www.gettheshot.coronavirus.[place].gov/. It is important to note that some COVID mobile vaccine clinics are held outdoors and may be canceled in rainy or stormy conditions. To learn more about pediatric vaccinations (ages 5-11), we invite you to visit the [facility] webpage. https://www.[facility].org/pages/6634-Ppyaz-Fecjnwowihh-Gssrpewcid-Cldhx-Dgy stions.htmlTo learn more about the COVID-19 vaccine, we invite you to visit the CDC website for a list of frequently asked questions. https://www.cdc.gov/coronavirus/2019-ncov/vaccines/faq.html [facility] Patient Portal Access Instructions: Stay connected with your healthcare team and access your personal medical information anytime with the [facility] Patient Portal. If you would like a full copy of your medical records please contact the [facility] Medical Records Department Tuesday through Tuesday between 8a.m. and 4:30p.m. Please follow the directions below to access the portal: 1.Access the email account you provided upon registration to the [facility].2.Look for an invitation email from [facility].3.Open the email and access the invitation link: Accept Invitation to [facility]Tio4.Fill in the required ortega to create your account. Sign into www.[email or web address] with your username and password that you [...] you will allow to register on the [facility] Patient Portal for access to your information. You can also access the [facility] Patient Portal on the [employer]. Simply click on Health Records under [employer] and then click on the Grzegorz logo. [...] Call your local pharmacy or go to http://bit.Glympse/8C4Bi2q to find one close to you.3.Make use of household items: Use cat litter or old coffee grounds to dispose medications if other options arenot available. Mix your drugs with these household products, seal them in an airtight container andthrow it into the garbage. Call [facility]: [phone] to be sure your drugs can be [...] aware that I should contact my doctor. Patient/Credit And Collections Analyst Signature: Date/Time: Relationship to Patient: Witness Name/Signature: Date/Time: [facility] [id number] Note ORIGINAL EXAMINATION: CT OF THE ABDOMEN [...] Date: 05/04/2024 11:13:30 AM Ordering Provider: ISADORA [facility]07-10-2024 Note* Exam Date Time Procedure Performing Provider Status 03/14/24 9:31 AM VL Duplex Scan Aorta /Iliacs Complete AOH Auth (Verified) [facility] 06-08-2024 Note* Addendum Note - Barrett Huff PA-C - 02/11/2024 4:08 PM EDTAddended by: BARRETT HUFF on: 02/11/2024 04:08 PM Modules accepted: Orders [facility]06-08-2024 Miscellaneous Notes* Addendum Note - Barrett Huff PA-C - 02/11/2024 4:08 PM EDTAddended by: BARRETT HUFF on: 02/11/2024 04:08 PM Modules accepted: Orders documented in this encounterK[facility] NoteHNO ID: [id number] Author: BARRETT HUFF PA-C Service: ? 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 [...] Physical Exam Vitals an (more content not included)...[facility]06-08-2024 History of Present illness Narrative* Barrett Huff [...] Benign hypertension Bilateral leg pain 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 documented in this encounterK[facility]06-[facility]24 Instructions* Patient Instructions* Barrett Huff PA-C - [...] you are feeling worse documented in this encounterK[facility]03-[facility]2024 Note DATE OF PROCEDURE: 11/21/2023 PROCEDURE: Lexiscan [...] reported separately. RUDY LORA MD PG/NTS JOB#: [id number] DICTATION ID#: [id number] Digitally Signed by VIRGEN LORA MD on 11/21/2023 10:11 PM [facility]03-14-2024 Note ORIGINAL EXAMINATION: ONE SUPINE XRAY VIEW(S) [...] Sign Date: 11/18/2023 1:29:50 AM Ordering Provider: [facility] Grzegorz [id number] Hospital Discharge instructions Patient Education 11/03/2023 16:23:29 [...] on each side. Do this in a whudi-kw-nlge direction. ?If you are male: ?Use one [...] Clean the drainage bag according to the cylinder machine operator's instructions or as told byyour health care [...] and water are not available, use hand thread grinder tool. Always make sure there are no twists [...] 08/22/2006 Document Revised: 12/14/2019 Document Reviewed: 04/07/2018 [employer] Patient Education 2019 Oppten. Follow Up Care 09/29/2023 13:02:45 With:RUBINA CEE MD, [facility], Urology Service Address: [address] [place] [address] [address] [facility] [place] [address] [phone] Business (1) When:2-4 days [facility] 02-29-2024 Summary of episode note Discharge Instructions Thank you for allowing [facility] to assist you with your healthcare needs. The following is importantdischarge information regarding your hospital visit. Your Care Team JAKI FLEMING DO What to do next Scheduled Follow-Up Appointments Appointment Type When With Where Contact InformationURO OV 11/04/2023 09:30 AM EST KYAW LUCIANO [facility] CV OV 11/14/2023 10:15 AM EDT WALLY CHARMAINE CRIS [facility] [place] CVC INF Labwork 04/17/2024 09:45 AM EDT Infusion Therapy HEM ONC OV Follow Up w/Active Treatment 04/17/2024 10:30 AM EDT CLOVER KATZ MD Hematology and Oncology INF Chemo: Infusion Injection 15 min 04/17/2024 11:00 AM EDT Infusion Therapy Follow Up Appointments Follow Up with RUBINA CEE MD, [facility], Urology Service When Within 2-4 days Where: [address] [facility] [address] [place] [address] [phone] Business (1) Allergies NKA Medications Please ask [...] labia on each side. Do this in lritli-tl-sqrl direction. ? If you are male: ? [...] Clean the drainage bag according to the cylinder machine operator's instructions or as told byyour health care [...] and water are not available, use hand thread grinder tool. Always make sure there are no twists [...] Document Reviewed: 04/07/2018 Elsevier Patient Education 2020 BRCK Inc Inc. Additional Information VACCINATE! IT SAVES LIVES! Members of the community who have not yet received the COVID-19 vaccine and would like to receive it can visit one of [facility] vaccine clinics. There are many vaccine clinic locations within the [facility]. For locations and available times, please visit [email or web address]/. It is important to note that some COVID mobile vaccine clinics are held outdoors and may be canceled in rainy or stormy conditions. To learn more about pediatric vaccinations (ages 5-11), we invite you to visit the [facility] webpage. https://www.Guardian Analyticss.org/pages/8353-Euwhg-Zzcafzgvqyt-Pkpjdbulkn-Gfrtl-Tfj stions.htmlTo learn more about the COVID-19 vaccine, we invite you to visit the CDC website for a list of frequently asked questions.https://www.cdc.gov/coronavirus/2019-ncov/vaccines/faq.html YOUnite Patient Portal Access Instructions: Stay connected with your healthcare team and access your personal medical information anytime with the YOUnite Patient Portal. Please follow the directions below to create your YOUnite account: 1.Access the email account you provided upon registration to the hospital/physician office.2.Look for an invitation email from [facility].3.Open the email and access the invitation link: AcceptInvitation to YOUnite.4.Fill in the required ortega to create your account. To access your account, visit Hordspot/Pod InnsOneChart. Click the blue button labeled Access Patient [...] who you will allowto register on the YOUnite Patient Portal for access to your information. You can also access the [facility] One[facility] Patient Portal on the [facility] Anywhere jyoti. Simply click on Patient Portal and then log into your account. If you would like to receive a full copy of your medical records, please contact the [facility] Medical Records Department by calling [phone], Tuesday through Tuesday between 8 a.m. and [...] Call your local pharmacy or go to [email or web address] The [email or web address] to find one close to you.3.Make use of household items: Use cat litter or old coffee grounds to dispose medications if other options arenot available. Mix your drugs with these household products, seal them in an airtight container andthrow it into the garbage. Call [facility]: [phone] to be sure your drugs can be [...] aware that I should contact my doctor. Patient/Credit And Collections Analyst Signature: Date/Time: Relationship to Patient: Witness Name/Signature: Date/Time: [facility] [id number] Anesthesiology Consult note Patient: JAYLEN GALAVIZ Age: [...] MD on 11/03/2023 04:15 PM [facility] [id number] Discharge summary Patient underwent successful left ureteroscopy [...] MD on 11/03/2023 03:18 PM [facility] HospitalJqrchdjc27-61-1288 Note ORIGINAL EXAMINATION: SPOT FLUOROSCOPIC IMAGES 11/03/2023 [...] 4:14:05 PM Ordering Provider: EZEKIEL QUIROSOhio State Harding HospitalSdyixsck70-03-2738 Anesthesiology Consult note Patient: JAYLEN GALAVIZ Age: [...] (0) Problem list: Medical (Selected) 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 / SNOMED CT 37340573 / Confirmed Elevated PSA / SNOMED CT 4467175154 / Confirmed Family history of prostate cancer / SNOMED CT 1104150932 / Confirmed GERD - Gastro-esophageal reflux disease / SNOMED CT 6916064911 / Confirmed History of blood clots / SNOMED CT 028689934 / Confirmed History of urinary retention / SNOMED CT 678871364 / Confirmed Hernia, internal / SNOMED CT 18007976 / Confirmed Kidney stones / SNOMED CT 979418512 / Confirmed Nocturia / SNOMED CT 931963185 / Confirmed BPH associated with nocturia / SNOMED CT 2210866786 / Confirmed Ureterovesical junction obstruction / SNOMED CT 1362318101 / Confirmed Chronic venous insufficiency / SNOMED CT 59536585 / Confirmed Renal insufficiency, mild / SNOMED CT 1368668099 / Confirmed Synovial cyst / SNOMED CT 001855257 / Confirmed Non-Insulin Dependent Diabetes Mellitus / SNOMED CT 515171546 / Confirmed Left ureteral stone / SNOMED CT 20868529 / Confirmed, Active Problems (48) Age-related macular degeneration Anemia Anxiety Arthritis Atrial fibrillation Borderline low oxygen saturation level 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 History of UTI (4161827185): Resolved. Comments: - 09/2017 - [facility] Procedure history: Cystoscopy (3740105284) on 09/21/2023 at 88 Years. Comments: 10/18/2023 7:28 LAVERN Haywood WITH LEFT URETERAL STENT INSERTION, LEFT URETERSOSCOPY Transperineal biopsy of prostate using magnetic resonance imaging and ultrasonography fusion guidance ([id number]) on 02/01/2023 at 87 Years. Heart valve replacement - graft (516968308) in 2012 at 78 Years. CABG (Coronary artery bypass grafting) planned (4094296724) on 09/17/2012 at 77 Years. Carpal tunnel release (749488189). Comments: 01/19/2023 9:31 LAVERN Kennedy right Hiatus hernia repair (017623910). Colonoscopy (389087049). Dupuytren contracture (7650485752). Comments: 01/19/2023 9:32 LAVERN Kennedy right Esophagogastroduodenoscopy (331371797). Cataract extraction and IOL (implantation of intraocular lens) (6806618033). Comments: 10/18/2023 7:29 LAVERN Haywood BILATERAL Kidney stone (715265538). Social History Social & Psychosocial Habits Alcohol [...] Weight Lbs 200.6 lb Weight Method Actual [place] Body Weight 73.00 kg Type of Scale [...] records, Reviewed prior records. Assessment and Plan [place] Society of Anesthesiologists (ASA) physical status classification: [...] MD on 11/03/2023 01:59 PM [facility] [id number] Note ORIGINAL EXAMINATION: ONE SUPINE XRAY VIEW(S) [...] Sign Date: 11/03/2023 11:24:44 AM Ordering Provider: [facility]02-13-2024 Summary of episode note JAYLEN GLAAVIZ :1935 Visit Date:10/18/2023 Your Visit Summary Your Diagnosis Prostate cancer Your Care Team Attending Physician - CLOVER KATZ MD Primary Care Physician - JAKI FLEMING DO Vitals Height 178.0 cm What to do next Scheduled Follow-Up Appointments Appointment Type When With Where Contact InformationCV OV 11/03/2023 10:00 AM EST CHARMAINE LO APRN-MINDY [facility] 11/03/2023 03:45 PM [...] to receive it can visit one of [facility] vaccine clinics. There are many vaccine clinic locations within the [facility]. For locations and available times, please visit www.[email or web address]/. It is important to note that some COVID mobile vaccine clinics are held outdoors and may be canceled in rainy or stormy conditions. To learn more about pediatric vaccinations (ages 5-11), we invite you to visit the [facility] webpage. https://www.[facility].org/pages/2452-Yseoz-Eabfwteqili-Ccfujcgene-Vbeqz-Jcr stions.htmlTo learn more about the COVID-19 vaccine, we invite you to visit the CDC website for a list of frequently asked questions. https://www.cdc.gov/coronavirus/2019-ncov/vaccines/faq.html [facility] OneChart Patient Portal Access Instructions: Stay connected with your healthcare team and access your personal medical information anytime with the GrzegorzMiTio Patient Portal.If you would like a full copy of your medical records, please contact the [facility] Medical Records Department, Tuesday through Tuesday between 8a.m. and 4:30p.m. Please follow the directions below to access the portal: 1.Access the email account you provided upon registration to the [facility].2.Look for an invitation email from [facility].3.Open the email and access the invitation link: Accept Invitation to [facility] [employer]4.Fill in the required ortega to create your account. Sign into [email or web address].[email or web address] with your username and password that you [...] you will allow to register on the [facility]zegorzMiTio Patient Portal for access to your information. You can also access the [facility]egorzMiTio Patient Portal on the Nomanini. Simply click on Health Records under [employer] and then click on the Pod Inns logo. HOW TO SAFELY DISPOSE OF PRESCRIPTION [...] Call your local pharmacy or go to [email or web address] to find one close to you.3.Make use of household items: Use cat litter or old coffee grounds to dispose medications if other options arenot available. Mix your drugs with these household products, seal them in an airtight container andthrow it into the garbage. Call [facility]: [phone] to be sure your drugs can be [...] been reviewed and explained to me and I,JAYELN GALAVIZ understand my current condition and have read and understand these discharge instructions. I have received a written copy of the plan/instructions. If I have questions, I am aware that I should contact my doctor. Patient/Credit And Collections Analyst Signature: Date/Time: Relationship to Patient: Witness Name/Signature: Date/Time: [facility] [id number] Hospital Discharge instructions Patient Education 09/23/2023 12:53:32 Pyelonephritis, Adult, Phgg-te-Oekc Pyelonephritis, Adult Pyelonephritis is an infection that [...] even if youstart to feel better. Take spno-cyn-fzdjnrj and prescription medicines only as told by [...] 09/29/2005 Document Revised: 06/26/2019 Document Reviewed: 06/26/2019 [employer] Patient Education 2020 Oppten. Follow Up Care 09/20/2023 18:53:27 With:JAKI FLEMING DO, Internal Medicine, [facility] IM Address: [address] [place] [address] [place] [address]- When:1-2 days Comments:THE OFFICE WILL CALL WILL AN APPOINTMENT With:EZEKIEL QUIROS MD, [facility] Address: [address] [place] [address] [address] [facility] [place] [address]- When:1-2 days Comments:Please call the office to schedule a follow-up appointment. With:[facility] - Patient had home medication brought in. Please send home with patient. Address: When:1-2 days [facility] 01-19-2024 Discharge summary Date of Service 09/23/2023 Discharge Diagnosis 1. Anemia 2. Nephrolithiasis 3. Hydroureteronephrosis 4. A-fib 5. History of CAD 6. Type 2 diabetes 7. MIRYAM on CKD Additional Orders: Other status: BMP,09/23/23 5:00:00 EST, Next AM Draw (one day only), Blood, Once, Preferred Lab: [facility], Stop date 09/23/23 5:00:00 EST(Complete) Other status: CBC,09/23/23 5:00:00 EST, Next AM Draw (one day only), Blood, Once, Preferred Lab: [facility], Stop date 09/23/23 5:00:00 EST(Complete) Ordered: Discharge,09/23/23 [...] 8:37:00 EST, Routine, Blood, Once, Preferred Lab: [facility],Stop date 09/23/23 10:00:00 EST(Complete) Other status: HH,09/23/23 11:10:00 EST, URGENT (collect within 2 hrs), Blood, Once, Preferred Lab: [facility], Stop date 09/23/23 11:10:00 EST(Complete) Other status: Iron Studies,09/23/23 8:37:00 EST, Routine, Blood, Once, Preferred Lab: [facility], Stop date 09/23/23 10:00:00 EST(Complete) Ordered: cefdinir 300 mg oral capsule,Dose : 300 mg = 1 cap(s), Oral, q12h, X 5 day(s), # 10 cap(s), 0 Refill(s), 09/28/23 11:11:00 EST, Pharmacy: [facility], 180.3, cm, 09/20/23 23:28:00 EST, Height, 90.5, kg, 09/20/23 23:28:00 EST, Dosing Weight Ordered: tamsulosin 0.4 mg oral capsule,Dose : 0.4 mg = 1 cap(s), Oral, qDayPC, # 30 cap(s), 0 Refill(s), [facility], 180.3, cm, 09/20/23 23:28:00 EST, Height, kg, 09/20/23 23:28:00 EST, Dosing Weight Hospital Course 88-year-old male with a past medical history of A-fib, CAD, type 2 diabetes, hypertension, and prostate cancer. Presented to [facility] on 09/21/2023 with complaint of abdominal [...] OFFICE WILL CALL WILL AN APPOINTMENT Where: [address] [facility] [place] [address]- Follow Up with EZEKIEL QUIROS MD, [facility] When Within 1-2 days Why: Please call the office to schedule a follow-up appointment. Where: [address] [facility] [address] [facility] [place] [address]- Follow Up with HOME [facility] - Patient [...] HAWLEY on 09/23/2023 02:16 PM [facility] [id number] Note Discharge Instructions Thank you for allowing [facility] to assist you with your healthcare needs. The following is importantdischarge information regarding your hospital visit. Your Care Team JAKI FLEMING DO Your Diagnosis Acute on chronic kidney failure Atrial fibrillation 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 Hydronephrosis Nephrolithiasis Non-Insulin Dependent Diabetes Mellitus Pyelonephritis What to do next Scheduled Follow-Up Appointments Appointment Type When With Where Contact InformationURO OV 10/14/2023 10:10 AM EST EZEKIEL BURRIS MD [facility] INF Labwork 10/18/2023 10:30 AM EST Infusion Therapy HEM ONC OV Follow Up w/Active Treatment 10/18/2023 11:15 AM CLOVER ORELLANA MD [facility] INF Chemo: Infusion Injection 15 min 10/18/2023 11:45 AM EST Infusion Therapy CV OV 11/03/2023 10:00 AM EST CHARMAINE LO STANLEY-FELT CEMENTER [facility] Follow Up Appointments Follow Up with JAKI FLEMING DO, Internal Medicine, [facility] / IM When Within 1-2 days Why: THE OFFICE WILL CALL WILL AN APPOINTMENT Where: [address] [facility] [place] [address]- Follow Up with EZEKIEL QUIROS MD, [facility] When Within 1-2 days Why: Please call the office to schedule a follow-up appointment. Where: [address] [facility] [address] [facility] [place] [address]- Follow Up with HOME MEDS - Patient [...] 12 hours Duration: 5 Days Pickup at [facility] New tamsulosin (tamsulosin 0.4 mg oral capsule) 1 cap by mouth Once a day after a meal Pickup at [facility] Unchanged acetaminophen-diphenhydramine (Tylenol PM Extra Strength oral [...] by mouth Every day Pharmacy Information [facility]: [address] [place] [address] [phone] What How Much When Comments Stop Taking [...] may report side effects to FDA at 8-547-KMQ-1176. What other drugs will affect tamsulosin? Sometimes [...] may affect tamsulosin. This includes prescription and qotk-ohd-vlhwohe medicines, vitamins, and herbal products. Not all [...] to ensure that the information provided by Mural.ly. ('Multum') is accurate, up-to-date, and complete, but no guarantee is made to that effect. Drug information contained herein may be time sensitive. Rundown App information has been compiled for use by healthcare practitioners and consumers in the [place] and therefore Rundown App does not warrant that uses outside of the [place] are appropriate, unless specifically indicated otherwise. Zitra.comICEXs drug information does not endorse drugs, diagnose patients or recommend therapy. Vernier Networkss drug information isan informational resource designed to [...] effective or appropriate for any given patient. [facility] does not assume any responsibility for any aspect of healthcare administered with the aid of information Rundown App provides. The information contained herein is not intended to cover all possible uses, directions, precautions, warnings, drug interactions, allergic reactions, or adverse effects. If you have questions about the drugs you are taking, check with your doctor, nurse or pharmacist. Copyright 7311-2987 [facility] [employer]. Version: 07.06. Revision Date: 11/26/2022. cefdinir (SE [...] may report side effects to FDA at 8-791-IFW-5874. What other drugs will affect cefdinir? Tell your doctor about all your other medicines, especially: probenecid; or vitamin or mineral supplements that contain iron. This list is not complete. Other drugs may affect cefdinir, including prescription and qavu-lhw-zrrphgr medicines, vitamins, and herbal products. Not all [...] to ensure that the information provided by Mural.ly. ('EiRx Therapeuticstum') is accurate, up-to-date, and complete, but no guarantee is made to that effect. Drug information contained herein may be time sensitive. Rundown App information has been compiled for use by healthcare practitioners and consumers in the [place] and therefore Rundown App does not warrant that uses outside of the [place] are appropriate, unless specifically indicated otherwise. Vernier [employer]s drug information does not endorse drugs, diagnose patients or recommend therapy. Vernier Networkss drug information isan informational resource designed to [...] effective or appropriate for any given patient. R[employer] App does not assume any responsibility for any aspect of healthcare administered with the aid of information Rundown App provides. The information contained herein is not intended to cover all possible uses, directions, precautions, warnings, drug interactions, allergic reactions, or adverse effects. If you have questions about the drugs you are taking, check with your doctor, nurse or pharmacist. Copyright 3096-0257 Mural.ly. Version: 9.01. Revision Date: 04/08/2023. Education Materials [...] even if youstart to feel better. Take nijx-vhy-kukoeiy and prescription medicines only as told by [...] 09/29/2005 Document Revised: 06/26/2019 Document Reviewed: 06/26/2019 ElseOptyn Patient Education 2020 BRCK Inc Inc. Additional Information VACCINATE! IT SAVES LIVES! Members of the community who have not yet received the COVID-19 vaccine and would like to receive it can visit one of [facility] vaccine clinics. There are many vaccine clinic locations within the [facility]. For locations and available times, please visit https://[email or web address].[place].gov/. It is important to note that some COVID mobile vaccine clinics are held outdoors and may be canceled in rainy or stormy conditions. To learn more about pediatric vaccinations (ages 5-11), we invite you to visit the [facility] webpage. https://www.[facility].org/pages/0107-Gctqv-Vfrcjkllnsp-Hyjbjrqxne-Lgiio-Dbm stions.htmlTo learn more about the COVID-19 vaccine, we invite you to visit the CDC website for a list of frequently asked questions.https://www.cdc.gov/coronavirus/2019-ncov/vaccines/faq.html [facility] S[facility]reign Developers and Infrastructure LimitedChart Patient Portal Access Instructions: Stay connected with your healthcare team and access your personal medical information anytime with the [facility]zegorzMiTio Patient Portal. Please follow the directions below to create your GrzegorzMiTio account: 1.Access the email account you provided upon registration to the hospital/physician office.2.Look for an invitation email from [facility].3.Open the email and access the invitation link: AcceptInvitation to GrzegorzMiTio.4.Fill in the required ortega to create your account. To access your account, visit Hordspot/[email or web address]. Click the blue button labeled Access Patient Portal and then log in with the username and password that you created in the steps above. You will be able to view your test results, lab results, a summary of your visits, upcoming appointments and more. There is also a convenient messaging option where you can send secure messages to your p BigCalcvider. In addition, you will have the ability to download any documents or summaries to your computer and/or send the information securely to a physician. Remember that your healthcare information is confidential, so carefully consider who you will allowto register on the [facility] Patient Portal for access to your information. You can also access the [facility] Patient Portal on the Grzegorz Anywhere jyoti. Simply click on Patient Portal and then log into your account. If you would like to receive a full copy of your medical records, please contact the [facility] Medical Records Department by calling [phone], Tuesday through Tuesday between 8 a.m. and [...] Call your local pharmacy or go to [email or web address] to find one close to you.3.Make use of household items: Use cat litter or old coffee grounds to dispose medications if other options arenot available. Mix your drugs with these household products, seal them in an airtight container andthrow it into the garbage. Call [facility]: [phone] to be sure your drugs can be [...] COPY. Signatures Patient Education Materials Pyelonephritis, Adult, Puym-qo-Yeyx Medication Leaflets tamsulosin, cefdinir My discharge plan and instructions have been reviewed and explained to me and I,JAYLEN GALAVIZ understand my current condition and have read and understand these discharge instructions. I have received a written copy of the plan/instructions. If I have questions, I am aware that I should contact my doctor. Patient/Credit And Collections Analyst Signature: Date/Time: Relationship to Patient: Witness Name/Signature: Date/Time[id number] Urology Progress note Date of Service 09/23/2023 [...] Ongoing BPH associated with nocturia 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 Chronic venous insufficiency Diabetes Elevated PSA [...] MD on 09/23/2023 09:33 AM [id number] Note Date of Service 09/22/2023 Chief Complaint Weakness Subjective 88-year-old male with a past medical history of A-fib, CAD, type 2 diabetes, hypertension, and prostate cancer. Presented to [facility] on 09/21/2023 with complaint of abdominal [...] HAWLEY on 09/22/2023 02:47 PM [facility]Qbgrlbou33-50-8857 Note Date of Service 09/22/2023 Chief Complaint Weakness Subjective 88-year-old male with a past medical history of A-fib, CAD, type 2 diabetes, hypertension, and prostate cancer. Presented to [facility] on 09/21/2023 with complaint of abdominal [...] HAWLEY on 09/22/2023 02:47 PM [facility] HospitalEqdpuayz95-89-5495 Urology Progress note Date of Service 09/22/2023 [...] chronic kidney failure Atrial fibrillation 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 Hydronephrosis Nephrolithiasis Non-Insulin Dependent Diabetes Mellitus [...] Ongoing BPH associated with nocturia 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 Chronic venous insufficiency Diabetes Elevated PSA [...] MD on 09/22/2023 10:01 AM [facility] HospitalBnzhenun80-46-8950 Urology Progress note Preliminary urine culture growing out staphylococcal lugdunensis. Given tendency for resistance to other antibiotics will give 1 dose of vancomycin IV until sensitivities back. Digitally Signed by EZEKIEL QUIROS MD on 09/21/2023 07:07 PM [facility] HospitalNcxmfypq18-73-3586 Note Date of Service 09.21.23 Chief Complaint [...] Pyelonephritis 4. Atrial fibrillation 5. 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 6. Non-Insulin Dependent Diabetes Mellitus 7. [...] KUMAR on 09/21/2023 04:13 PM [facility] HospitalJuhmpqlc02-22-5404 Evaluation + Plan noteExtracted from: Title:History and Physical Author:ANOTLIN SANCHEZ ON Date:09/21/23 Obstructing left-sided nephr olithiasis. [...] Date:11/03/2023 10:00:00 AM Scheduled Provider:CHARMAINE LO Location:[facility] Appointment Type:CV OV Future Scheduled Tests Laboratory* Basic Metabolic Panel 12/01/22 * Prostate Specific Antigen 10/08/23 * Prostate Specific Antigen 10/17/23 * Prostate Specific Antigen 06/28/23 * Prostate Specific Antigen 05/19/23 * Complete Blood Count 12/01/22 * Complete Blood Count 10/17/23 * Complete Metabolic Panel 10/17/23 Radiology* NM Myocardial Spect Rest/Stress 09/21/23 [facility] 01-17-2024 Anesthesiology Consult note Patient: JAYLEN [...] DO on 09/21/2023 01:10 PM [facility] [id number] Note ORIGINAL HISTORY: Pain COMPARISON: No FLUOROSCOPY TIME: 0.6 minutes FLUOROSCOPY IMAGES: 43 IMPRESSION: Fluoroscopy provided to the Urology service. Interpreted by: Mohan Parra MD Preliminary Report By: Mohan Parra MD Electronically signed By Mohan Parra MD Dictated Date: 09/21/2023 11:00:18 AM Prelim Date: 09/21/2023 11:00:59 AM Sign Date: 09/21/2023 11:00:59 AM Ordering Provider: [facility]01-17-2024 Anesthesiology Consult note Patient: JAYLEN GALAVIZ Age: [...] q6h Problem list: Medical (Selected) 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 / SNOMED CT 66304529 / Confirmed Macular degeneration / SNOMED CT 0960830526 / Confirmed Diabetes / SNOMED CT 342512980 / Confirmed Elevated PSA / SNOMED CT 8362496767 / Confirmed Family history of prostate cancer / SNOMED CT 1290567578 / Confirmed GERD - Gastro-esophageal reflux disease / SNOMED CT 4276713524 / Confirmed History of blood clots / SNOMED CT 310031855 / Confirmed History of urinary retention / SNOMED CT 760451164 / Confirmed Hernia, internal / SNOMED CT 18659817 / Confirmed Kidney stones / SNOMED CT 914497342 / Confirmed Nocturia / SNOMED CT 759325444 / Confirmed BPH associated with nocturia / SNOMED CT 8119216294 / Confirmed Ureterovesical junction obstruction / SNOMED CT 3933553187 / Confirmed Chronic venous insufficiency / SNOMED CT 09508162 / Confirmed Renal insufficiency, mild / SNOMED CT 0400374456 / Confirmed Synovial cyst / SNOMED CT 501570736 / Confirmed Non-Insulin Dependent Diabetes Mellitus / SNOMED CT 677284078 / Confirmed, Active Problems (41) Age-related macular degeneration Anxiety Arthritis Borderline low oxygen saturation level BPH associated with nocturia 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 Chronic venous insufficiency Colon, diverticulosis CPAP [...] Histories Past Medical History: Active Hernia, internal (25006926) Diabetes (213112806) History of urinary retention (210780120) Comments: 01/19/2023 EDT 9:06 EDT - LAVERN Koch urinary retention Resolved Diastasis recti (939744793): Resolved. History of UTI (2034484628): Resolved. Comments: - 09/2017 - [facility] Family History: Diabetes mellitus Mother Asthma Brother Heart disease Mother Father Stroke Mother Heart attack Son () Arthritis 28-MAY-2014 16:49:04<$> Son Prostate cancer 03-Mar-2016 02:35:22<$> Brother Procedure history: Transperineal biopsy of prostate using magnetic resonance imaging and ultrasonography fusion guidance (2469670212) on 02/01/2023 at 87 Years. Heart valve replacement - graft (394760280) in 2012 at 78 Years. CABG (Coronary artery bypass grafting) planned (9524854985) on 09/17/2012 at 77 Years. Carpal tunnel release (136153657). Comments: 01/19/2023 9:31 LAVERN Kennedy right Hiatus hernia repair (722972285). Colonoscopy (718495864). Dupuytren contracture (7293457701). Comments: 01/19/2023 9:32 LAVERN Kennedy right Esophagogastroduodenoscopy (264442769). Social History Social & Psychosocial Habits Alcohol [...] Oral36.8 DegC (SEP 21 07:53) Heart Rate Gtqheokbd26 bpm (SEP 20 23:22) SBPL 88mmHg (SEP 21 07:53) DBPC 40mmHg (SEP 21 07:53) BMI27.84 (SEP 20 23:28) Measurements from flowsheet : Measurements 09/20/2023 23:28 EST Height 180.3 cm Height in inches 71 inch(es) Admission Weight 90.5 kg Weight Lbs 199.1 lb [place] Body Weight 75.26 kg BSA Admission 2.11 Body Mass Index 27.84 kg/m2 09/20/2023 15:23 EST Height 180 cm Admission Weight 95.5 kg [place] Body Weight 74.99 kg 09/20/2023 7:53 EST Height 180.3 cm Admission Weight 95.5 kg [place] Body Weight 75.26 kg Pain assessment: Pain [...] evident Teaching Method Explanation Preferred Spoken Language Qatari Preferred Written Language Qatari Able To Drink Order Detail Yes Able To Sign Consents Order Detail Yes Code Status Order Detail Full code IV Order Detail Yes Dialysis Schedule Order Detail N/A Has Diabetes Order Detail Yes Isolation Precautions Order Detail None Nurse Collect Order Detail 0 Oxygen Order Detail No Order Detail N/A Prior Valve Replacement Order Detail No Transport Mode Order Detail Patient bed Corporate Director Details Form Corporate Director Details Form 09/21/2023 0:35 EST Influenza Vaccine [...] #2 We May Share PHI donna galaviz [phone] Designated Person #2 Relationship Son Additional Designated Person Share PHI bill ibarra, friend [phone] Privacy Restrictions Requested None Height 180.3 cm Height in inches 71 inch(es) Admission Weight 90.5 kg Weight Lbs 199.1 lb [place] Body Weight 75.26 kg BSA Admission 2.11 [...] evident Teaching Method Explanation Preferred Spoken Language Qatari Preferred Written Language Qatari Teaching Evaluation Verbalizes/Nonverbally indicates understanding Safety Brochure [...] Type 0-10 Pain scale Nail Bed Color [place] Capillary Refill < 2 seconds Heart Rhythm [...] Elimination Voiding with difficulties All Extremity Description [place] Skin Temperature Warm Temperature All Extremities Warm Skin Description Dry Skin Integrity Pressure points intact Skin Turgor Elastic Mucous Membrane Color [place] Mucous Membrane Description Moist Neurological Language Able [...] for Transfer Medically indicated transfer Patient's Legal Credit And Collections Analyst Spouse Patient's Condition for Transfer Stable Transfer Requirements Met Patient has received a medical screening, Patient will be transferred by qualified personnel, Receiving facility has agreed to accept transfer, Has available space and qualified personnel, Risks and benefits of transfer explained to patient, Risks and benefits explained yoselin sales representative malt liquors Transferring Physician RUBY KHALIL DO Receiving Facility Accepting Transfer [facility] Accepting Physician Dr. Barnes Nurse Receiving Report Lucinda PUCKETT Date/Time Nurse Received Report 09/20/2023 20:00 Mode of Transfer Ground ambulance Required Personnel for Transfer EMT Ambulance Service [facility] 09/20/2023 19:55 EST Patient Information Note [...] Number of Attempts: 1 09/20/2023 15:28 EST [place] [facility] Note 09/20/2023 15:25 EST Primary [...] Height 180 cm Admission Weight 95.5 kg [place] Body Weight 74.99 kg Temperature Oral 37.4 [...] Opening Response Juan Spontaneously Best Motor Response [place] Obeys simple commands Best Verbal Response [place] Oriented Juan Coma Score 15 Wish To [...] No Weight Loss No Preferred Spoken Language Qatari Preferred Written Language Qatari Tracking Group ED AO Tracking Group Tracking Acuity 3 Mode of Transfer Private vehicle Prev Test Positive/Diagnosis w/COVID-19 No Current Quarantine/Isolated any Illness No Any Contact with Sick Animals/Birds No Traveled Anywhere in Last 30 Days No ED Triage Adults ED Triage Adults 09/20/2023 14:22 EST Transition of Care Note Transition of Care sent from [facility] 09/20/2023 9:35 EST Pain Scale Assessment 0-10 [...] cephalexin 500 mg mg 09/20/2023 9:25 EST [facility] [facility] Patient Summary ED/Urgent Care Discharge Instructions [...] /HPF UA Bacteria 3+ /HPF 09/20/2023 8:05 [facility] Emergency Room Note 09/20/2023 7:58 EST Activity [...] Height 180.3 cm Admission Weight 95.5 kg [place] Body Weight 75.26 kg Temperature Oral 36.5 [...] Symptoms Frequency Skin Temperature Warm Skin Description [place], Dry Mucous Membrane Description Moist Level of Consciousness Alert Eye Opening Response [place] Spontaneously Best Motor Response [place] Obeys simple commands Best Verbal Response Juan Oriented [place] Coma Score 15 Violence Risk Confused No [...] No Weight Loss No Preferred Spoken Language Qatari Preferred Written Language Qatari Tracking Group ED AO Tracking Group Tracking [...] ED Triage Adults . Assessment and Plan Vietnamese Society of Anesthesiologists (ASA) physical status classification: [...] DO on 09/21/2023 01:09 PM [id number] Urology Consult note Date of Service 09/21/2023 Reason for Consultation Left ureteral stone, obstructive left pyelonephritis, prostate cancer Referring Physician Hospitalist team History of Present Illness This is a 88-year-old male recently diagnosed with prostate cancer completed course of radiation therapy 07/29. Multifocal [place] score 7 and 8 noted on 6 of 12 cores. PSA was in then 9.8 range. He also received preradiation Lupron and will remain on this for 2 years. Minimal side effects from this. He has been followed in the past for nonobstructing left renal stone. 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 [address] [place] [address]. All rights reserved. This information is not intended as a substitute for professional medical care. Always follow yourhealthcare professional's instructions. Follow Up Care 09/20/2023 07:42:30 With:JAKI FLEMING DO, Internal Medicine, [facility] / [facility] Address: [address] [place] [address] [phone] When:2-4 days [facility] 01-16-2024 Note Discharge Instructions Thank you for allowing [facility] to assist you with your healthcare needs. The following is importantdischarge information regarding your hospital visit. Diagnosis from Today's Visit Abdominal pain UTI - Urinary tract infection What to Do Next Instructions from Your Care Team No qualifying data available. Post Acute Orders No qualifying data available. You Need to Schedule the Following Appointments Follow Up with JAKI FLEMING DO, Internal Medicine, [facility] / IM When Within 2-4 days Where: [address] [place] [phone]- [phone] Allergies NKA Medications Please ask your primary [...] may report side effects to FDA at 9-607-GHE-3002. What other drugs will affect cephalexin? Tell your doctor about all your other medicines, especially: metformin; or probenecid. This list is not complete. Other drugs may affect cephalexin, including prescription and ouqq-eou-raietjy medicines, vitamins, and herbal products. Not all [...] to ensure that the information provided by [employer]. ('Multum') is accurate, up-to-date, and complete, but no guarantee is made to that effect. Drug information contained herein may be time sensitive. [employer] information has been compiled for use by healthcare practitioners and consumers in the [place] and therefore [employer] does not warrant that uses outside of the [place] are appropriate, unless specifically indicated otherwise. [employer]'s drug information does not endorse drugs, diagnose patients or recommend therapy. [employer]s drug information isan informational resource designed to [...] effective or appropriate for any given patient. [facility] does not assume any responsibility for any aspect of healthcare administered with the aid of information [employer] provides. The information contained herein is not intended to cover all possible uses, directions, precautions, warnings, drug interactions, allergic reactions, or adverse effects. If you have questions about the drugs you are taking, check with your doctor, nurse or pharmacist. Copyright 3354-9975 M[employer]. Version: .. Revision Date: 04/06/2023. Education Materials [...] to keep medicine down Weakness or dizziness 8893-8049 [employer]. [address] [place] [address], [place] [address]. All rights reserved. This information is not intended as a substitute for professional medical care. Always follow yourhealthcare professional's instructions. Additional Information VACCINATE! IT SAVES LIVES! Members of the community who have not yet received the COVID-19 vaccine and would like to receive it can visit one of [facility] vaccine clinics. There are many vaccine clinic locations within the [facility]. For locations and available times, please visit www.gettheshot.coronavirus.[place].gov/. It is important to note that some COVID mobile vaccine clinics are held outdoors and may be canceled in rainy or stormy conditions. To learn more about pediatric vaccinations (ages 5-11), we invite you to visit the [facility] webpage. https://www.[email or web address].org/pages/[email or web address]-[email or web address]-Earyapqgyk-Sjwzj-Pkz stions.htmlTo learn more about the COVID-19 vaccine, we invite you to visit the CDC website for a list of frequently asked questions. https://www.cdc.gov/coronavirus/2019-ncov/vaccines/faq.html [facility] Patient Portal Access Instructions: Stay connected with your healthcare team and access your personal medical information anytime with the [facility] Patient Portal. If you would like a full copy of your medical records please contact the [facility] Medical Records Department Tuesday through Tuesday between 8a.m. and 4:30p.m. Please follow the directions below to access the portal: 1.Access the email account you provided upon registration to the [facility].2.Look for an invitation email from [facility].3.Open the email and access the invitation link: Accept Invitation to [facility]4.Fill in the required ortega to create your account. Sign into [email or web address] with your username and password that you [...] you will allow to register on the [facility] Patient Portal for access to your information. You can also access the [facility] Patient Portal on the Nomanini. Simply click on Health Records under [employer] and then click on the Pod Inns logo. HOW TO SAFELY DISPOSE OF PRESCRIPTION [...] Call your local pharmacy or go to [email or web address] to find one close to you.3.Make use of household items: Use cat litter or old coffee grounds to dispose medications if other options arenot available. Mix your drugs with these household products, seal them in an airtight container andthrow it into the garbage. Call [facility]: [phone] to be sure your drugs can be [...] aware that I should contact my doctor. 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 [...] Weakness or dizziness Shaking chills Drenching sweats [phone] [employer]. [address] [place] [address], [place] [address]. All rights reserved. This information is not intended as a substitute for professional medical care. Always follow yourhealthcare professional's instructions. Follow Up Care 09/06/2023 11:50:37 With:JAKI FLEMING DO, Internal Medicine, [facility] Address: [address] [place] [phone]- [phone] When:2-4 days [facility] 01-02-2024 Emergency department Discharge summary Discharge Instructions Thank you for allowing [facility] to assist you with your healthcare needs. 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 [...] Weakness or dizziness Shaking chills Drenching sweats [phone] [employer]. [address] [place] [address]. All rights reserved. This information is not intended as a substitute for professional medical care. Always follow yourhealthcare professional's instructions. Additional Information VACCINATE! IT SAVES LIVES! Members of the community who have not yet received the COVID-19 vaccine and would like to receive it can visit one of [facility] vaccine clinics. There are many vaccine clinic locations within the [facility]. For locations and available times, please visit www.gettheshot.[email or web address].[place].gov/. It is important to note that some COVID mobile vaccine clinics are held outdoors and may be canceled in rainy or stormy conditions. To learn more about pediatric vaccinations (ages 5-11), we invite you to visit the [facility] webpage. https://www.[facility].org/pages/0241-Uwqfm-Hnyjkpzzhny-Qdrhzeptgd-Sinap-Kvw stions.htmlTo learn more about the COVID-19 vaccine, we invite you to visit the CDC website for a list of frequently asked questions. https://www.cdc.gov/coronavirus/2019-ncov/vaccines/faq.html [facility] Patient Portal Access Instructions: Stay connected with your healthcare team and access your personal medical information anytime with the [facility] Patient Portal. If you would like a full copy of your medical records please contact the [facility] Medical Records Department Tuesday through Tuesday between 8a.m. and 4:30p.m. Please follow the directions below to access the portal: 1.Access the email account you provided upon registration to the hospital.2.Look for an invitation email from [facility].3.Open the email and access the invitation link: Accept Invitation to [facility]4.Fill in the required ortega to create your account. Sign into [email or web address] with your username and password that you [...] you will allow to register on the [facility] Patient Portal for access to your information. You can also access the [facility] Patient Portal on the Warp 9 jyoti. Simply click on Health Records under [employer] and then click on the Pod Inns logo. HOW TO SAFELY DISPOSE OF PRESCRIPTION [...] Call your local pharmacy or go to [email or web address] to find one close to you.3.Make use of household items: Use cat litter or old coffee grounds to dispose medications if other options arenot available. Mix your drugs with these household products, seal them in an airtight container andthrow it into the garbage. Call [facility]: [phone] to be sure your drugs can be [...] aware that I should contact my doctor. Patient/Credit And Collections Analyst Signature: Date/Time: Relationship to Patient: Witness Name/Signature: Date/Time: [facility]tlrpsib45-55-2390 Note* Exam Date Time Procedure Performing Provider Status 09/06/23 1:54 PM VL Venous US/Doppler One Leg (for DVT). Auth (Verified) [facility] 01-02-2024 Note ORIGINAL EXAMINATION: ONE XRAY [...] Date: 09/06/2023 1:58:31 PM Ordering Provider: LUCY [facility]01-02-2024 NoteSINUS RHYTHM ATRIAL PREMATURE COMPLEXES PROLONGED SD INTERVAL INFERIOR INFARCT, OLD Electronic Signature: LASHAE MOULTON MD 09/06/2023 14:36:18[facility] 12-24-2023 Hospital Discharge instructions Patient Education [...] the body, your health is at risk. 8699-9618 [employer]. [address] [place] [address], [place] [address]. All rights reserved. This information is not [...] vision Extreme drowsiness, confusion, dizziness, or fainting 0533-[address] [employer] [place] [address]. All rights reserved. This information is not intended as a substitute for professional medical care. Always follow yourhealthcare professional's instructions. Follow Up Care 08/28/2023 11:46:37 With:CHARMAINE LO Address: [address] [facility] [address] [facility] [place] [address] [phone] Business (1) When:2-4 days Comments:You are started [...] worsening or concerning symptoms. With:JAKI FLEMING Address: [address] [facility] [place] [address]- [phone] Business (1) When:2-4 days [facility] 12-24-2023 Note Discharge Instructions Thank you for allowing [facility] to assist you with your healthcare needs. The following is importantdischarge information regarding your hospital visit. Diagnosis from Today's Visit MIRYAM (acute kidney injury) Atrial fibrillation Medical screening exam What to Do Next Instructions from Your Care Team No qualifying data available. Post Acute Orders No qualifying data available. You Need to Schedule the Following Appointments Follow Up with CHARMAINE OL When Within 2-4 days Why: You are [...] worsening or concerning symptoms. Where: [address] [facility] [address] [facility] [place] [address] [phone] Business (1) Follow Up with JAKI FLEMING When Within 2-4 days Where: [address] [facility] [place] [address] [phone] Business (1) Allergies NKA Medications Please ask [...] medicines at the same time (including some sstd-nft-cuaxwwk medicines). Tell your doctor about all medicines [...] may report side effects to FDA at [phone]-TAW-[phone]. What other drugs will affect apixaban? Sometimes it is not safe to use certain medications at the same time. Some drugs can affect your blood levels of other drugs you take, which may increase side effects or make the medications less effective. Many other drugs (including some glnh-fbv-rtcgfal medicines) can increase your risk of bleeding or blood clots. Tell your doctor about all medicines you have recently used, especially: any other medicines to treat or prevent blood clots; a blood thinner such as heparin or warfarin (Coumadin, Jantoven); an antidepressant; or aspirin or other NSAID (nonsteroidal anti-inflammatory drug) used oysterman. This list is not complete and many other drugs may affect apixaban. This includes prescription and dfgh-pks-rfdwcso medicines, vitamins, and herbal products. Not all [...] to ensure that the information provided by [employer]. ('Mult[employer]') is accurate, up-to-date, and complete, but no guarantee is made to that effect. Drug information contained herein may be time sensitive. [employer] information has been compiled for use by healthcare practitioners and consumers in the [place] and therefore [employer] does not warrant that uses outside of the [place] are appropriate, unless specifically indicated otherwise. [employer] drug information does not endorse drugs, diagnose patients or recommend therapy. [employer] drug information isan informational resource designed to [...] effective or appropriate for any given patient. [employer] does not assume any responsibility for any aspect of healthcare administered with the aid of information [employer] provides. The information contained herein is not intended to cover all possible uses, directions, precautions, warnings, drug interactions, allergic reactions, or adverse effects. If you have questions about the drugs you are taking, check with your doctor, nurse or pharmacist. Copyright 2713-8703 [employer]. Version: 6.01. Revision Date: 04/28/2021. Education Materials [...] the body, your health is at risk. 4315-5493 [employer]. [address] [place] [address]. All rights reserved. This information is not [...] vision Extreme drowsiness, confusion, dizziness, or fainting 9447-4289 [employer]. [address] [place] [address]. All rights reserved. This information is not intended as a substitute for professional medical care. Always follow yourhealthcare professional's instructions. Additional Information VACCINATE! IT SAVES LIVES! Members of the community who have not yet received the COVID-19 vaccine and would like to receive it can visit one of [facility] vaccine clinics. There are many vaccine clinic locations within the [facility]. For locations and available times, please visit www.gettheshot.coronavirus.[place].gov/. It is important to note that some COVID mobile vaccine clinics are held outdoors and may be canceled in rainy or stormy conditions. To learn more about pediatric vaccinations (ages 5-11), we invite you to visit the [facility] webpage. https://www.akronTonZofs.org/pages/0183-Makps-Vrttyqlojwe-Lbregdbrec-Yptnu-Lgg stions.htmlTo learn more about the COVID-19 vaccine, we invite you to visit the CDC website for a list of frequently asked questions. https://www.cdc.gov/coronavirus/2019-ncov/vaccines/faq.html [facility] Patient Portal Access Instructions: Stay connected with your healthcare team and access your personal medical information anytime with the [facility] Patient Portal. If you would like a full copy of your medical records please contact the [facility] Medical Records Department Tuesday through Tuesday between 8a.m. and 4:30p.m. Please follow the directions below to access the portal: 1.Access the email account you provided upon registration to the hospital.2.Look for an invitation email from [facility].3.Open the email and access the invitation link: Accept Invitation to GrzegorzMiTio4.Fill in the required ortega to create your account. Sign into [email or web address] with your username and password that you [...] you will allow to register on the [facility] Patient Portal for access to your information. You can also access the [facility] Patient Portal on the Nomanini. Simply click on Health Records under [employer]Ed[employer] and then click on the Grzegorz logo. [...] Call your local pharmacy or go to [email or web address] to find one close to you.3.Make use of household items: Use cat litter or old coffee grounds to dispose medications if other options arenot available. Mix your drugs with these household products, seal them in an airtight container andthrow it into the garbage. Call [facility]: [phone] to be sure your drugs can be [...] aware that I should contact my doctor. Patient/Credit And Collections Analyst Signature: Date/Time: Relationship to Patient: Witness Name/Signature: Date/Time: [facility]12-24-2023 NoteSinus or ectopic atrial rhythm Atrial premature complexes in couplets Prolonged SD interval Inferior infarct, old Lateral leads are also involved Baseline wander in lead(s) V2 Electronic Signature: MAJO HOLDER MD 08/28/2023 12:02:59[facility] 09-27-2023 Hospital Discharge instructions Patient Education 06/01/2023 [...] you feel better and your symptoms ease. 4950-2368 [employer]. [address] [place] [address], [place] [id number]. All rights reserved. This information is not [...] with soap and water or use alcohol-based thread grinder tool to prevent the spread of infection. Wash your hands after touching anyone who is sick. Wash your hands or use alcohol-based thread grinder tool after using the toilet and before meals. [...] Keep uncooked meats away from cooked and xoflj-zq-kxq foods. Medicine You may use acetaminophen or [...] directed by your healthcare provider Royer gusman 0905-9469 [employer]. [address] [place] [address]. All rights reserved. This information is not [...] with soap and water or use alcohol-based thread grinder tool to prevent the spread of infection. Wash your hands after touching anyone who is sick. Wash your hands or use alcohol-based thread grinder tool after using the toilet and before meals. [...] Keep uncooked meats away from cooked and ilidy-oe-wmb foods. Medicine You may use acetaminophen or [...] directed by your healthcare provider Royer gusman 8690-9743 [employer]. [address] [place] [address]. All rights reserved. This information is not intended as a substitute for professional medical care. Always follow yourhealthcare professional's instructions. Follow Up Care 05/31/2023 23:06:56 With:JAKI FLEMING DO, Internal Medicine, [facility] Address: [address] [place] [address] [place] [address]- [phone] When:2-4 days [facility] 09-27-2023 Emergency department Discharge summary Discharge Instructions Thank you for allowing [facility] to assist you with your healthcare needs. [...] / IM When Within 2-4 days Where: [address] [place] [phone] Allergies NKA Medications Please ask your primary [...] you feel better and your symptoms ease. 6590-1147 [employer]. [address] [place] [address]. All rights reserved. This information is not [...] with soap and water or use alcohol-based thread grinder tool to prevent the spread of infection. Wash your hands after touching anyone who is sick. Wash your hands or use alcohol-based thread grinder tool after using the toilet and before meals. [...] Keep uncooked meats away from cooked and cbove-bh-fos foods. Medicine You may use acetaminophen or [...] directed by your healthcare provider Royer gusman [phone] [employer]. [address] [place] [address], [place] [address]. All rights reserved. This information is not [...] with soap and water or use alcohol-based thread grinder tool to prevent the spread of infection. Wash your hands after touching anyone who is sick. Wash your hands or use alcohol-based thread grinder tool after using the toilet and before meals. [...] Keep uncooked meats away from cooked and skuou-zs-qjf foods. Medicine You may use acetaminophen or [...] directed by your healthcare provider Royer gusman 9692-8296 [employer]. [address] [place] [address]. All rights reserved. This information is not intended as a substitute for professional medical care. Always follow yourhealthcare professional's instructions. Additional Information VACCINATE! IT SAVES LIVES! Members of the community who have not yet received the COVID-19 vaccine and would like to receive it can visit one of [facility] vaccine clinics. There are many vaccine clinic locations within the [facility]. For locations and available times, please visit www.gettheshot.coronavirus.[place].gov/. It is important to note that some COVID mobile vaccine clinics are held outdoors and may be canceled in rainy or stormy conditions. To learn more about pediatric vaccinations (ages 5-11), we invite you to visit the [facility] webpage. https://www.[facility].org/pages/6195-Pidjf-Uwifzmneymo-Jekpbtaovf-Ydsuu-Otx stions.htmlTo learn more about the COVID-19 vaccine, we invite you to visit the CDC website for a list of frequently asked questions. https://www.cdc.gov/coronavirus/2019-ncov/vaccines/faq.html [facility] Patient Portal Access Instructions: Stay connected with your healthcare team and access your personal medical information anytime with the [facility] Patient Portal. If you would like a full copy of your medical records please contact the [facility] Medical Records Department Tuesday through Tuesday between 8a.m. and 4:30p.m. Please follow the directions below to access the portal: 1.Access the email account you provided upon registration to the hospital.2.Look for an invitation email from [facility].3.Open the email and access the invitation link: Accept Invitation to GrzegorzMiTio4.Fill in the required ortega to create your account. Sign into [email or web address] with your username and password that you [...] you will allow to register on the [facility] Patient Portal for access to your information. You can also access the [facility] Patient Portal on the Warp 9 jyoti. Simply click on Health Records under [employer] and then click on the Pod Inns logo. HOW TO SAFELY DISPOSE OF PRESCRIPTION [...] Call your local pharmacy or go to [email or web address] to find one close to you.3.Make use of household items: Use cat litter or old coffee grounds to dispose medications if other options arenot available. Mix your drugs with these household products, seal them in an airtight container andthrow it into the garbage. Call [facility]: [phone] to be sure your drugs can be [...] aware that I should contact my doctor. Patient/Credit And Collections Analyst Signature: Date/Time: Relationship to Patient: Witness Name/Signature: Date/Time: [id number] Note ORIGINAL EXAMINATION: CT OF THE ABDOMEN [...] Sign Date: 06/01/2023 1:31:38 AM Ordering Provider: [facility]08-29-2023 Hospital Discharge instructions Patient Education 05/03/2023 18:33:17 Knee Pain of Uncertain Cause Knee Pain with Uncertain Cause There are several common causes for knee pain. These can include: A sprain of the ligaments that support the joint An injury to the cartilage lining of the joint Arthritis from gwjs-sgv-fwun or inflammation There are other causes as [...] heat. If you have to wear a duoy-reu-xcak knee brace, you can open it to apply the ice pack, or heat, directly to the knee. Never put ice directly on the skin. Always wrap the ice in atowel or other type of cloth. You may use wwzn-sqy-gvsukah pain medicine to control pain, unless another [...] full work duties. If you have a immf-swx-avpg knee brace, you can remove it to [...] as directed by your healthcare provider Chills [phone] [employer]. [address] [place] [address]. All rights reserved. This information is not intended as a substitute for professional medical care. Always follow yourhealthcare professional's instructions. Follow Up Care 05/03/2023 17:05:56 With:JAKI FLEMING DO, Internal Medicine, [facility] Address: [address] [place] [phone] When:2-4 days Comments:Make an appointment in 2 to 4 days with your physician. Return if you are worse in any way. [facility] 08-29-2023 Emergency department Discharge summary Discharge Instructions Thank you for allowing [facility] to assist you with your healthcare needs. [...] you are worse in any way. Where: [address] [place] [phone] Allergies NKA Medications Please ask your primary [...] cartilage lining of the joint Arthritis from ynjz-tcd-rjxt or inflammation There are other causes as [...] heat. If you have to wear a ojea-lgk-mryh knee brace, you can open it to apply the ice pack, or heat, directly to the knee. Never put ice directly on the skin. Always wrap the ice in atowel or other type of cloth. You may use hgae-rco-btkpxjq pain medicine to control pain, unless another [...] full work duties. If you have a zldi-xfi-gllu knee brace, you can remove it to [...] as directed by your healthcare provider Bryon 9185-2487 [employer]. [address] [place] [address], [place] [address]. All rights reserved. This information is not intended as a substitute for professional medical care. Always follow yourhealthcare professional's instructions. Additional Information VACCINATE! IT SAVES LIVES! Members of the community who have not yet received the COVID-19 vaccine and would like to receive it can visit one of [facility] vaccine clinics. There are many vaccine clinic locations within the [facility]. For locations and available times, please visit www.gettheshot.coronavirus.[place].gov/. It is important to note that some COVID mobile vaccine clinics are held outdoors and may be canceled in rainy or stormy conditions. To learn more about pediatric vaccinations (ages 5-11), we invite you to visit the [facility] webpage. https://www.akronTonZofs.org/pages/8800-Rrsqi-Wfjxseynerp-Sufehhgpqo-Cyhlz-Pny stions.htmlTo learn more about the COVID-19 vaccine, we invite you to visit the CDC website for a list of frequently asked questions. https://www.cdc.gov/coronavirus/2019-ncov/vaccines/faq.html [facility] Patient Portal Access Instructions: Stay connected with your healthcare team and access your personal medical information anytime with the [facility] Patient Portal. If you would like a full copy of your medical records please contact the [facility] Medical Records Department Tuesday through Tuesday between 8a.m. and 4:30p.m. Please follow the directions below to access the portal: 1.Access the email account you provided upon registration to the hospital.2.Look for an invitation email from [facility].3.Open the email and access the invitation link: Accept Invitation to Gr[facility]egorzMiTio4.Fill in the required ortega to create your account. Sign into [email or web address] with your username and password that you [...] you will allow to register on the [facility] Patient Portal for access to your information. You can also access the [facility] Patient Portal on the Warp 9 jyoti. Simply click on Health Records under [employer] and then click on the Grzegorz logo. [...] Call your local pharmacy or go to [email or web address] to find one close to you.3.Make use of household items: Use cat litter or old coffee grounds to dispose medications if other options arenot available. Mix your drugs with these household products, seal them in an airtight container andthrow it into the garbage. Call [facility]: [phone] to be sure your drugs can be [...] aware that I should contact my doctor. Patient/Credit And Collections Analyst Signature: Date/Time: Relationship to Patient: Witness Name/Signature: Date/Time: [id number] Note* Exam Date Time Procedure Performing Provider Status 05/03/23 5:33 PM VL Venous US/Doppler One Leg (for DVT). Auth (Verified) [facility] 08-25-2023 Summary of episode note GUILLAUMEJAYLEN [...] ONC OV Follow Up 06/28/2023 11:30 AM CLOVER RAMOS MD Hematology and Oncology URO OV 07/08/2023 08:40 AM EZEKIEL KENNY MD Urology CV OV 08/25/2023 11:00 AM CHARMAINE DENIS [facility] Medications What How Much When Instructions Unchanged [...] to receive it can visit one of [facility] vaccine clinics. There are many vaccine clinic locations within the [facility]. For locations and available times, please visit www.gettheshot.coronavirus.[place].gov/. It is important to note that some COVID mobile vaccine clinics are held outdoors and may be canceled in rainy or stormy conditions. To learn more about pediatric vaccinations (ages 5-11), we invite you to visit the [facility] webpage. https://www.[facility].org/pages/9367-Afflt-Dorgssgvujb-Gqbiqxbjpn-Uixqc-Prh stions.htmlTo learn more about the COVID-19 vaccine, we invite you to visit the CDC website for a list of frequently asked questions. https://www.cdc.gov/coronavirus/2019-ncov/vaccines/faq.html [facility] Patient Portal Access Instructions: Stay connected with your healthcare team and access your personal medical information anytime with the [facility] Patient Portal.If you would like a full copy of your medical records, please contact the [facility] Medical Records Department, Tuesday through Tuesday between 8a.m. and 4:30p.m. Please follow the directions below to access the portal: 1.Access the email account you provided upon registration to the hospital.2.Look for an invitation email from [facility].3.Open the email and access the invitation link: Accept Invitation to Gr[facility]orzMiTio4.Fill in the required ortega to create your [...] you will allow to register on the [facility] Patient Portal for access to your information. You can also access the [facility] Patient Portal on the Warp 9 jyoti. Simply click on Health Records under [employer] and then click on the Grzegorz logo. [...] Call your local pharmacy or go to http://bit.ly/0U7Ip9s to find one close to you.3.Make use of household items: Use cat litter or old coffee grounds to dispose medications if other options arenot available. Mix your drugs with these household products, seal them in an airtight container andthrow it into the garbage. Call [facility]: [phone] to be sure your drugs can be [...] aware that I should contact my doctor. Patient/Credit And Collections Analyst Signature: Date/Time: Relationship to Patient: Witness Name/Signature: Date/Time: [id number] Note ORIGINAL EXAMINATION: PET/CT PSMA 03/24/2023 1:31 pm TECHNIQUE: Intravenous injection of 6.51 mCi IV Gallium-68 PSMA was performed, followed by PET acquisition from the skull vertex to mid-thigh. Concurrent low-dose CT for attenuation correction and anatomic localization was also performed. PET images were fused with low-dose CT at the workstation. Dose bkbjapxbk-lj-vtso time: 63 min COMPARISON: CT abdomen pelvis [...] Date: 03/24/2023 2:49:31 PM Ordering Provider: [facility] Hospital Discharge instructions Patient Education 02/21/2023 00:18:43 [...] following occur: Loss of consciousness Vomiting blood 8786-0161 [employer]. [address] [place] [address]. All rights reserved. This information is not [...] to keep medicine down Weakness or dizziness 5125-5680 [employer]. [address] [place] [address]. All rights reserved. This information is not [...] for 8 hours and increasing bladder pressure 7832-9592 [employer]. [address] [place] [address], [place] [address]. All rights reserved. This information is not intended as a substitute for professional medical care. Always follow yourhealthcare professional's instructions. Follow Up Care 02/20/2023 17:04:01 With:EZEKIEL BURRIS MD, [facility] Address: [address] [place] [address] [place] [address] [phone] When:2-4 days With:ROYA BASILIO MD Address: [address] [facility], [place] [address] [phone] When:2-4 days With:JAKI FLEMING DO, Internal Medicine, [facility] Address: [address] [place] [address] [place] [address]- [phone] When:2-4 days [facility] 06-19-2023 Emergency department Discharge summary Discharge Instructions Thank you for allowing [facility] to assist you with your healthcare needs. [...] Appointments Follow Up with EZEKIEL BURRIS MD, [facility] When Within 2-4 days Where: [address] [phone] [phone] Follow Up with ROYA BASILIO MD When Within 2-4 days Where: [address] [facility], [place] [address]- [phone] Follow Up with JAKI FLEMING DO, Internal Medicine, [facility] When Within 2-4 days Where: [address] [place] [address] [place] [address]- [id number] Allergies NKA Medications Please ask your primary [...] following occur: Loss of consciousness Vomiting blood [phone] [employer]. [address] [place] [address]. All rights reserved. This information is not [...] to keep medicine down Weakness or dizziness 7525-8623 [employer]. [address] [place] [address], [place] [address]. All rights reserved. This information is not [...] for 8 hours and increasing bladder pressure 1552-1579 [employer]. [address] [place] [address]. All rights reserved. This information is not intended as a substitute for professional medical care. Always follow yourhealthcare professional's instructions. Additional Information VACCINATE! IT SAVES LIVES! Members of the community who have not yet received the COVID-19 vaccine and would like to receive it can visit one of [facility] vaccine clinics. There are many vaccine clinic locations within the [facility]. For locations and available times, please visit [email or web address]/. It is important to note that some COVID mobile vaccine clinics are held outdoors and may be canceled in rainy or stormy conditions. To learn more about pediatric vaccinations (ages 5-11), we invite you to visit the [facility] webpage. https://www.[facility].org/pages/3169-Ualeo-Ikaamgzpcvl-Rmasbaylcz-Jchob-Nyb stions.htmlTo learn more about the COVID-19 vaccine, we invite you to visit the CDC website for a list of frequently asked questions. https://www.cdc.gov/coronavirus/2019-ncov/vaccines/faq.html [facility] Patient Portal Access Instructions: Stay connected with your healthcare team and access your personal medical information anytime with the [facility] Patient Portal. If you would like a full copy of your medical records please contact the [facility] Medical Records Department Tuesday through Tuesday between 8a.m. and 4:30p.m. Please follow the directions below to access the portal: 1.Access the email account you provided upon registration to the [facility].2.Look for an invitation email from [facility].3.Open the email and access the invitation link: Accept Invitation to [facility]4.Fill in the required ortega to create your account. Sign into [email or web address] with your username and password that you [...] you will allow to register on the [facility] Patient Portal for access to your information. You can also access the [facility] Patient Portal on the Warp 9 jyoti. Simply click on Health Records under [employer] and then click on the Grzegorz logo. [...] Call your local pharmacy or go to http://bit.ly/6J2Ty3e to find one close to you.3.Make use of household items: Use cat litter or old coffee grounds to dispose medications if other options arenot available. Mix your drugs with these household products, seal them in an airtight container andthrow it into the garbage. Call [facility]: [phone] to be sure your drugs can be [...] aware that I should contact my doctor. Patient/Credit And Collections Analyst Signature: Date/Time: Relationship to Patient: Witness Name/Signature: Date/Time: [id number] Note ORIGINAL EXAMINATION: CT OF THE ABDOMEN [...] ABDOMEN PAIN, BLODDY BOWEL MOVEMENT TODAY abdominal [id number]^ FINDINGS: Lung bases/lower mediastinum: There is subpleural [...] PM Ordering Provider: JEFFERY WILLSON [facility] [id number] Note ORIGINAL EXAMINATION: CT OF THE ABDOMEN [...] ABDOMEN PAIN, BLODDY BOWEL MOVEMENT TODAY abdominal [id number]^ FINDINGS: Lung bases/lower mediastinum: There is subpleural [...] 10:06:38 PM Ordering Provider: JEFFERY WILLSONOhio [facility] [id number] Hospital Discharge instructions Patient Education 02/01/2023 12:31:41 -[facility] Discharge Instructions Template (06/2018) (CUSTOM) GRZEGORZ SAME [...] us better serve our patients. Form: 1522 (84347) R: 12/1202/01/2023 12:29:06 1-[facility] URO Prostate Biopsy (06/2022)(CUSTOM) PROSTATE BIOPSY DESCRIPTION [...] Up Care 12/02/2022 16:08:47 With:EZEKIEL BURRIS MD, [facility] Address: [address] [place] [phone] When: Unknown [facility] 05-30-2023 Summary of episode note Discharge Instructions Thank you for allowing [facility] to assist you with your healthcare needs. The following is importantdischarge information regarding your hospital visit. Your Care Team JAKI FLEMING DO What to do next Scheduled Follow-Up Appointments Appointment Type When With Where Contact InformationURO OV Talk 02/14/2023 11:00 AM EDT EZEKIEL BURRIS MD [facility] URO OV 20 min 05/19/2023 10:20 AM EDANURADHA YI GOLF COUR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-FELT CEMENTER [facility] CV OV 08/25/2023 11:00 AM CHARMAINE DENIS APRN-FELT CEMENTER [facility] Follow Up Appointments Follow Up with EZEKIEL BURRIS MD, [facility] When Where: [address] [place] [phone] Allergies NKA Medications Please ask your primary [...] us better serve our patients. Form: 1522 (34293) R: 12/12 PROSTATE BIOPSY DESCRIPTION OF PROSTATE [...] to receive it can visit one of [facility] vaccine clinics. There are many vaccine clinic locations within the [facility]. For locations and available times, please visit [email or web address] It is important to note that some COVID mobile vaccine clinics are held outdoors and may be canceled in rainy or stormy conditions. To learn more about pediatric vaccinations (ages 5-11), we invite you to visit the [facility] webpage. https://www.[employer].org/pages/9685-Nxbwh-Wzmbjlbuoau-Wzamfvudph-Bveby-Clp stions.htmlTo learn more about the COVID-19 vaccine, we invite you to visit the CDC website for a list of frequently asked questions.https://www.cdc.gov/coronavirus/2019-ncov/vaccines/faq.html [facility] Patient Portal Access Instructions: Stay connected with your healthcare team and access your personal medical information anytime with the [facility] Patient Portal. Please follow the directions below to create your [facility] account: 1.Access the email account you provided upon registration to the hospital/physician office.2.Look for an invitation email from [facility].3.Open the email and access the invitation link: AcceptInvitation to [facility].4.Fill in the required ortega to create your account. To access your account, visit Hordspot[employer]. Click the blue button labeled Access Patient [...] who you will allowto register on the [facility] for access to your information. You can also access the [facility] on the [facility] jyoti. Simply click on Patient Portal and then log into your account. If you would like to receive a full copy of your medical records, please contact the [facility] Medical Records Department by calling [phone], Tuesday through Tuesday between 8 a.m. and [...] Call your local pharmacy or go to [email or web address] to find one close to you.3.Make use of household items: Use cat litter or old coffee grounds to dispose medications if other options arenot available. Mix your drugs with these household products, seal them in an airtight container andthrow it into the garbage. Call [facility]: [phone] to be sure your drugs can be [...] aware that I should contact my doctor. 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 / SNOMED CT 91813215 / Confirmed Diabetes / SNOMED CT 137208126 / Confirmed Elevated PSA / SNOMED CT 6130689601 / Confirmed Family history of prostate cancer / SNOMED CT 6857598670 / Confirmed GERD - Gastro-esophageal reflux disease / SNOMED CT 1023893370 / Confirmed History of urinary retention / SNOMED CT 771902958 / Confirmed Hernia, internal / SNOMED CT 57653900 / Confirmed Nocturia / SNOMED CT 974781109 / Confirmed BPH associated with nocturia / SNOMED CT 2333270744 / Confirmed Renal insufficiency, mild / SNOMED CT 9402654243 / Confirmed Screening PSA (prostate specific antigen) / SNOMED CT 532462306 / Confirmed Synovial cyst / SNOMED CT 501728385 / Confirmed Non-Insulin Dependent Diabetes Mellitus / SNOMED CT 525740961 / Confirmed, Active Problems (37) Age-related macular degeneration Anxiety Arthritis Borderline low oxygen saturation level 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 History of UTI (8703423037): Resolved. Comments: - 09/2017 - [facility] Family History: Diabetes mellitus Mother Asthma Brother Heart disease Mother Father Stroke Mother Heart attack Son () Arthritis 28-MAY-2014 16:49:04<$> Son Prostate cancer 03-Mar-2016 02:35:22<$> Brother Procedure history: Heart valve replacement - graft (512164615) in 2012 at 78 Years. CABG (Coronary artery bypass grafting) planned (5750851046) on 09/17/2012 at 77 Years. Carpal tunnel release (894068747). Comments: 01/19/2023 9:31 LAVERN Kennedy right Hiatus hernia repair (924532354). Colonoscopy (134998440). Dupuytren contracture (5823585655). Comments: 01/19/2023 9:32 LAVERN Kennedy right Esophagogastroduodenoscopy (844241766). Social History Social & Psychosocial Habits Alcohol [...] Weight 96.2 kg Weight Lbs 211.6 lb [place] Body Weight 73.00 kg Admission Body Mass [...] Anesthesiologist SN - CAt - Role Performed TRANSIT MIXER DRIVER SN - CAt - Role Performed Scrub Technologist SN - CAt - Role Performed Tassel Snipper 1 02/01/2023 9:35 EDT SN - Cul [...] Weight 96.2 kg Weight Lbs 211.6 lb [place] Body Weight 73.00 kg Admission Body Mass [...] Method Explanation, Printed materials Preferred Written Language Qatari Preferred Spoken Language Qatari General Infection Prevention Strategies Hand hygiene Surgical [...] Calc 42.90 mL/min . Assessment and Plan [place] Society of Anesthesiologists (ASA) physical status classification: [...] ERIKA BRO MD on 02/01/2023 10:24 AM [facility] + Plan note Future Appointments Appointment Date:07/01/2021 01:45:00 PM Scheduled Provider:MAXIMUS CORONEL JR, MD Location: [place] Appointment Type:GS COOLER SERVICE SUPERVISOR Appointment Date:08/11/2021 11:20:00 AM Scheduled Provider:MARIYA ALVAREZ MD Location:[facility] CAN Appointment Type:URO OV Future Scheduled Tests Laboratory* Prostate Specific Antigen 08/06/21 [facility] Evaluation + Plan note Future Appointments Appointment Date:09/15/2021 10:10:00 AM Scheduled Provider:MARIYA ALVAREZ MD Location:UROLOGY Appointment Type:URO OV [facility] Evaluation + Plan note Future Appointments Appointment Date:10/26/2022 11:10:00 AM Scheduled Provider:MARIYA ALVAREZ MD Location:UROLOGY Appointment Type:URO OV Future Scheduled Tests Laboratory* Prostate Specific Antigen 10/20/22 [facility] Evaluation + Plan note Future Appointments Appointment Date:10/26/2022 11:10:00 AM Scheduled Provider:MARIYA ALVAREZ MD Location:UROLOGY Appointment Type:URO OV Diagnostic Tests Pending * TIBC 11/05/21 Future Scheduled Tests Laboratory* Prostate Specific Antigen 10/20/22 [facility] Evaluation + Plan note Future Appointments Appointment Date:10/26/2022 11:10:00 AM Scheduled Provider:MARIYA ALVAREZ MD Location:UROLOGY Appointment Type:URO OV Future Scheduled Tests Laboratory* Prostate Specific Antigen 10/20/22 [facility] Evaluation + Plan note Future Appointments Appointment Date:08/19/2022 11:00:00 AM Scheduled Provider:CHARMAINE LO Location:[facility] [place] Appointment Type:CV COOLER SERVICE SUPERVISOR Appointment Date:10/26/2022 11:10:00 AM Scheduled Provider:MARIYA ALVAREZ MD Location:UROLOGY Appointment Type:URO OV Future Scheduled Tests Laboratory* Prostate Specific Antigen 10/20/22 [facility] Evaluation + Plan note Future Appointments Appointment Date:10/26/2022 10:10:00 AM Scheduled Provider:EZEKIEL BURRIS MD Location:UROLOGY Appointment Type:URO OV 20 min Appointment Date:08/25/2023 11:00:00 AM Scheduled Provider:CHARMAINE LO Location:[facility] Appointment Type:CV OV Future Scheduled Tests Laboratory* Prostate Specific Antigen 10/26/22 [facility] Evaluation + Plan note Future Appointments Appointment Date:01/19/2023 11:00:00 AM Scheduled Provider:ANURADHA CHRISTINE Location:UROLOGY Appointment Type:URO OV Physical 20 min Appointment Date:02/01/2023 02:50:00 PM Scheduled Provider: Location:Main [place] Appointment Type:[facility]rology Appointment Date:02/14/2023 11:00:00 AM Scheduled Provider:EZEKIEL BURRIS MD Location:UROLOGY Appointment Type:URO OV Talk Appointment Date:05/19/2023 10:20:00 AM Scheduled Provider:ANURADHA CHRISTINE Location:UROLOGY Appointment Type:URO OV 20 min Appointment Date:08/25/2023 11:00:00 AM Scheduled Provider:CHARMAINE LO Location:[facility] Appointment Type:CV OV Future Scheduled Tests Laboratory* Basic Metabolic Panel 12/01/22 * Prostate Specific Antigen 05/19/23 * Complete Blood Count 12/01/22 [facility] Evaluation + Plan note Future Appointments Appointment Date:02/14/2023 11:00:00 AM Scheduled Provider:EZEKIEL BURRIS MD Location:UROLOGY Appointment Type:URO OV Talk Appointment Date:05/19/2023 10:20:00 AM Scheduled Provider:ANURADHA CHRISTINE Location:UROLOGY Appointment Type:URO OV 20 min Appointment Date:08/25/2023 11:00:00 AM Scheduled Provider:CHARMAINE LO Location:[facility] [place] Appointment Type:CV OV Future Scheduled Tests Laboratory* Basic Metabolic Panel 12/01/22 * Prostate Specific Antigen 05/19/23 * Complete Blood Count 12/01/22 [facility] evaluation + Plan note Future Appointments Appointment Date:03/28/2023 01:30:00 PM Scheduled Provider:EZEKIEL BURRIS MD Location:UROLOGY Appointment Type:URO OV Appointment Date:05/19/2023 10:20:00 AM Scheduled Provider:ANURADHA CHRISTINE Location:UROLOGY Appointment Type:URO OV 20 min Appointment Date:08/25/2023 11:00:00 AM Scheduled Provider:CHARMAINE LO Location:[facility] Appointment Type:CV OV Future Scheduled Tests Laboratory* Basic Metabolic Panel 12/01/22 * Prostate Specific Antigen 05/19/23 * Complete Blood Count 12/01/22 Radiology* PET/CT PSMA 02/14/23 [facility] Evaluation + Plan note Future Appointments Appointment Date:03/24/2023 11:30:00 AM Scheduled Provider: Location:XRAY Appointment Type:PET/CT PSMA Appointment Date:03/28/2023 11:00:00 AM Scheduled Provider:ANDRES ZAPIEN MD Location:RAD ONC CAN Appointment Type:RO Consult Appointment Date:03/28/2023 01:30:00 PM Scheduled Provider:EZEKIEL BURRIS MD Location:UROLOGY Appointment Type:URO OV Appointment Date:05/19/2023 10:20:00 AM Scheduled Provider:ANURADHA CHRISTINE Location:UROLOGY Appointment Type:URO OV 20 min Appointment Date:08/25/2023 11:00:00 AM Scheduled Provider:CHARMAINE LO Location:[facility] Appointment Type:CV OV Diagnostic Tests Pending * Urine Culture 02/20/23 Future Scheduled Tests Laboratory* Basic Metabolic Panel 12/01/22 * Prostate Specific Antigen 05/19/23 * Complete Blood Count 12/01/22 Radiology* PET/CT PSMA 03/24/23 [facility] evaluation + Plan note Future Appointments [...] Appointment Date:08/25/2023 11:00:00 AM Scheduled Provider:CHARMAINE LO Location:[facility] [place] Appointment Type:CV OV Future Scheduled Tests Laboratory* Basic Metabolic Panel 12/01/22 * Prostate Specific Antigen 05/19/23 * Complete Blood Count 12/01/22 Radiology* PET/CT PSMA 03/24/23 [facility] evaluation + Plan note Future Appointments Appointment Date:03/24/2023 11:30:00 AM Scheduled Provider: Location:XRAY Appointment Type:PET/CT PSMA Appointment Date:03/28/2023 11:00:00 AM Scheduled Provider:ANDRES ZAPIEN MD Location:[facility] Appointment Type:RO Consult Appointment Date:03/28/2023 01:30:00 PM Scheduled Provider:EZEKIEL BURRIS MD Location:UROLOGY Appointment Type:URO OV Appointment Date:05/19/2023 10:20:00 AM Scheduled Provider:ANURADHA CHRISTINE Location:UROLOGY Appointment Type:URO OV 20 min Appointment Date:08/25/2023 11:00:00 AM Scheduled Provider:CHARMAINE LO Location:[facility] [place] Appointment Type:CV OV Future Scheduled Tests Laboratory* Basic Metabolic Panel 12/01/22 * Prostate Specific Antigen 05/19/23 * Complete Blood Count 12/01/22 Radiology* PET/CT PSMA 03/24/23 [facility] Evaluation + Plan note Future Appointments Appointment Date:03/28/2023 11:00:00 AM Scheduled Provider:ANDRES ZAPIEN MD Location:[facility] CAN Appointment Type:RO Consult Appointment Date:03/28/2023 01:30:00 PM Scheduled Provider:EZEKIEL BURRIS MD Location:UROLOGY Appointment Type:URO OV Appointment Date:05/19/2023 10:20:00 AM Scheduled Provider:ANURADHA CHRISTINE Location:UROLOGY Appointment Type:URO OV 20 min Appointment Date:08/25/2023 11:00:00 AM Scheduled Provider:CHARMAINE LO Location:[facility] Appointment Type:CV OV Future Scheduled Tests Laboratory* Basic Metabolic Panel 12/01/22 * Prostate Specific Antigen 05/19/23 * Complete Blood Count 12/01/22 [facility] Evaluation + Plan note Future Appointments Appointment Date:05/19/2023 10:20:00 AM Scheduled Provider:ANURADHA CHRISTINE Location:UROLOGY Appointment Type:URO OV 20 min Appointment Date:06/28/2023 11:30:00 AM Scheduled Provider:CLOVER KATZ MD Location:HEM [facility]C Appointment Type:HEM ONC OV Follow Up Appointment Date:07/08/2023 08:40:00 AM Scheduled Provider:EZEKIEL BURRIS MD Location:UROLOGY Appointment Type:URO OV Appointment Date:08/25/2023 11:00:00 AM Scheduled Provider:CHARMAINE LO Location:[facility] Appointment Type:CV OV Future Scheduled Tests Laboratory* Basic Metabolic Panel 12/01/22 * Lactate Dehydrogenase 06/29/23 * Prostate Specific Antigen 06/28/23 * Prostate Specific Antigen 05/19/23 * Prostate Specific Antigen 06/29/23 * Complete Blood Count 12/01/22 * Complete Blood Count 06/29/23 * Complete Metabolic Panel 06/29/23 [facility] Evaluation + Plan note Future Appointments Appointment Date:06/28/2023 11:30:00 AM Scheduled Provider:CLOVER KATZ MD Location:[facility] ONC Appointment Type:HEM ONC OV Follow Up Appointment Date:07/08/2023 08:40:00 AM Scheduled Provider:EZEKIEL BURRIS MD Location:UROLOGY Appointment Type:URO OV Appointment Date:08/25/2023 11:00:00 AM Scheduled Provider:CHARMAINE LO Location:[facility] [place] Appointment Type:CV OV Future Scheduled Tests Laboratory* Basic Metabolic Panel 12/01/22 * Lactate Dehydrogenase 06/29/23 * Prostate Specific Antigen 06/28/23 * Prostate Specific Antigen 05/19/23 * Prostate Specific Antigen 06/29/23 * Complete Blood Count 12/01/22 * Complete Blood Count 06/29/23 * Complete Metabolic Panel 06/29/23 [facility] Evaluation + Plan note Future Appointments Appointment Date:06/28/2023 11:30:00 AM Scheduled Provider:CLOVER KATZ MD Location:HEM ONC Appointment Type:HEM ONC OV Follow Up Appointment Date:07/08/2023 08:40:00 AM Scheduled Provider:EZEKIEL BURRIS MD Location:UROLOGY Appointment Type:URO OV Appointment Date:08/25/2023 11:00:00 AM Scheduled Provider:CHARMAINE LO Location:[facility] [place] Appointment Type:CV OV Future Scheduled Tests Laboratory* Basic Metabolic Panel 12/01/22 * Prostate Specific Antigen 06/28/23 * Prostate Specific Antigen 05/19/23 * Complete Blood Count 12/01/22 [facility] Evaluation + Plan note Future Appointments Appointment Date:08/05/2023 08:30:00 AM Scheduled Provider:BOWEN RAMIREZ PA-C Location:[facility] Appointment Type:RO Follow Up 30 Appointment Date:08/25/2023 11:00:00 AM Scheduled Provider:CHARMAINE LO Location:[facility] [place] Appointment Type:CV OV Appointment Date:10/14/2023 [...] * Complete Metabolic Panel 10/17/23 [facility] Evaluation + Plan note Future Appointments Appointment Date:08/25/2023 11:00:00 AM Scheduled Provider:CHARMAINE LO Location:[facility] Appointment Type:CV OV Appointment Date:09/16/2023 [...] Count 10/17/23 * Complete Metabolic Panel 10/17/23 [facility] Evaluation + Plan note Future Appointments Appointment [...] Count 10/17/23 * Complete Metabolic Panel 10/17/23 [facility] Evaluation + Plan note Future Appointments Appointment Date:09/14/2023 10:00:00 AM Scheduled Provider:CHARMAINE LO Location:[facility] Appointment Type:CV OV Appointment Date:09/16/2023 [...] Count 10/17/23 * Complete Metabolic Panel 10/17/23 [facility] Evaluation + Plan note Future Appointments Appointment [...] Appointment Date:11/03/2023 10:00:00 AM Scheduled Provider:CHARMAINE LO Location:[facility] Appointment Type:CV OV Future Scheduled Tests Laboratory* Basic Metabolic Panel 12/01/22 * Prostate Specific Antigen 10/08/23 * Prostate Specific Antigen 10/17/23 * Prostate Specific Antigen 06/28/23 * Prostate Specific Antigen 05/19/23 * Complete Blood Count 12/01/22 * Complete Blood Count 10/17/23 * Complete Metabolic Panel 10/17/23 Radiology* NM Myocardial Spect Rest/Stress 09/21/23 [facility] Evaluation + Plan note Future Appointments Appointment [...] Appointment Date:11/03/2023 10:00:00 AM Scheduled Provider:CHARMAINE LO Location:[facility] Appointment Type:CV OV Future Scheduled [...] NM Myocardial Spect Rest/Stress 09/21/23 [facility] Evaluation + Plan note Future Appointments [...] Appointment Date:11/03/2023 10:00:00 AM Scheduled Provider:CHARMAINE LO Location:[facility] Appointment Type:CV OV Appointment Date:11/03/2023 02:20:00 PM Scheduled Provider: Location:[place] Appointment Type:Sur[facility] Future Scheduled Tests Laboratory* Basic Metabolic Panel 12/01/22 * Basic Metabolic Panel 09/28/23 * Prostate Specific Antigen 10/08/23 * Prostate Specific Antigen 06/28/23 * Prostate Specific Antigen 05/19/23 * Complete Blood Count 12/01/22 * Complete Blood Count 09/28/23 Radiology* NM Myocardial Spect Rest/Stress 09/21/23 [facility] Evaluation + Plan note Future Appointments Appointment Date:11/03/2023 10:00:00 AM Scheduled Provider:CHARMAINE LO Location:[facility] Appointment Type:CV OV Appointment Date:11/03/2023 03:45:00 PM Scheduled Provider: Location:[place] Appointment Type:Surgery [facility]rology Appointment Date:04/17/2024 09:45:00 AM Scheduled [...] NM Myocardial Spect Rest/Stress 09/21/23 [facility] Evaluation + Plan note Future Appointments Appointment Date:11/03/2023 10:00:00 AM Scheduled Provider:CHARMAINE LO Location:[facility] Appointment Type:CV OV Appointment Date:11/03/2023 03:45:00 PM Scheduled Provider: Location:[facility] [place] Appointment Type:Surgery [facility]rology Appointment Date:04/17/2024 09:45:00 AM Scheduled [...] 04/17/24 Radiology* NM Myocardial Spect Rest/Stress 09/21/23 [facility] Evaluation + Plan note Future Appointments Appointment Date:11/04/2023 09:30:00 AM Scheduled Provider:KAYW LUCIANO Location:UROLOGY Appointment Type:URO OV Appointment Date:11/14/2023 10:15:00 AM Scheduled Provider:CHARMAINE LO Location:[facility] Appointment Type:CV OV Appointment Date:04/17/2024 [...] NM Myocardial Spect Rest/Stress 09/21/23 [facility] Evaluation + Plan note Future Appointments Appointment Date:11/14/2023 10:15:00 AM Scheduled Provider:CHARMAINE LO Location:[facility] Appointment Type:CV OV Appointment Date:04/17/2024 [...] * XR Abdomen AP 11/25/23 [facility] Evaluation + Plan note Future Appointments Appointment Date:11/21/2023 08:00:00 AM Scheduled Provider: Location:RAD Appointment Type:NM Myocardial Spect Rest/Stress Alondra Appointment Date:11/23/2023 10:40:00 AM Scheduled Provider:EZEKIEL BURRIS MD Location:UROLOGY Appointment Type:URO Off Proc Cysto w/ Foreign Body Remov Appointment Date:02/23/2024 09:30:00 AM Scheduled Provider:CHARMAINE LO [facility] Appointment Type:CV OV Appointment Date:04/17/2024 [...] 11/21/23 * NM Myocardial Spect Rest/Stress 09/21/23 [facility] Evaluation + Plan note Future Appointments Appointment Date:11/23/2023 10:40:00 AM Scheduled Provider:EZEKIEL BURRIS MD Location:UROLOGY Appointment Type:URO Off Proc Cysto w/ Foreign Body Remov Appointment Date:02/23/2024 09:30:00 AM Scheduled Provider:CHARMAINE LO Location:[facility] Appointment Type:CV OV Appointment Date:04/17/2024 [...] 04/17/24 Radiology* NM Myocardial Spect Rest/Stress 09/21/23 [facility] Evaluation + Plan note Future Appointments Appointment Date:02/23/2024 09:30:00 AM Scheduled Provider:CHARMAINE LO Location:[facility] Appointment Type:CV OV Appointment Date:04/17/2024 [...] NM Myocardial Spect Rest/Stress 09/21/23 [facility] Evaluation + Plan note Future Appointments Appointment Date:02/21/2024 09:30:00 AM Scheduled Provider:CHARMAINE LO [facility] Appointment Type:CV OV Appointment Date:04/17/2024 [...] 04/17/24 Radiology* NM Myocardial Spect Rest/Stress 09/21/23 [facility] Evaluation + Plan note Future Appointments Appointment [...] Appointment Date:11/03/2023 10:00:00 AM Scheduled Provider:CHARMAINE LO Location:[facility] Appointment Type:CV OV Diagnostic Tests Pending * Urine Culture 09/20/23 Future Scheduled Tests Laboratory* Basic Metabolic Panel 12/01/22 * Prostate Specific Antigen 10/08/23 * Prostate Specific Antigen 10/17/23 * Prostate Specific Antigen 06/28/23 * Prostate Specific Antigen 05/19/23 * Complete Blood Count 12/01/22 * Complete Blood Count 10/17/23 * Complete Metabolic Panel 10/17/23 Radiology* NM Myocardial Spect Rest/Stress 09/21/23 [facility] Evaluation + Plan note Future Appointments Appointment [...] Appointment Date:05/24/2024 09:00:00 AM Scheduled Provider:CHARMAINE LO Location:[facility] Appointment Type:CV OV Future Scheduled Tests Laboratory* Lactate Dehydrogenase 04/17/24 * Prostate Specific Antigen 10/08/23 * Prostate Specific Antigen 06/28/23 * Prostate Specific Antigen 05/19/23 * Prostate Specific Antigen 04/17/24 * Complete Blood Count 04/17/24 * Complete Metabolic Panel 04/17/24 * N-Terminal proBNP 02/21/24 Radiology* NM Myocardial Spect Rest/Stress 09/21/23 [facility] Evaluation + Plan note Future Appointments Appointment Date:04/17/2024 09:45:00 AM Scheduled Provider: Location:INF Appointment Type:INF Labwork Appointment Date:04/17/2024 10:30:00 AM Scheduled Provider:CLOVER KATZ MD Location:[facility]C Appointment Type:HEM ONC OV Follow Up w/Active Treatment Appointment Date:04/17/2024 11:00:00 AM Scheduled Provider: Location:INF Appointment Type:INF Chemo: Infusion Injection 15 min Appointment Date:05/24/2024 09:00:00 AM Scheduled Provider:CHARMAINE LO Location:[facility] Appointment Type:CV OV Future Scheduled Tests Laboratory* Lactate Dehydrogenase 04/17/24 * Prostate Specific Antigen 10/08/23 * Prostate Specific Antigen 06/28/23 * Prostate Specific Antigen 05/19/23 * Prostate Specific Antigen 04/17/24 * Complete Blood Count 04/17/24 * Complete Metabolic Panel 04/17/24 * N-Terminal proBNP 02/21/24 Radiology* NM Myocardial Spect Rest/Stress 09/21/23 [facility] Evaluation + Plan note Future Appointments Appointment Date:03/13/2024 09:00:00 AM Scheduled Provider: Location:RAD Appointment Type:[facility] - Duplex Scan Aorta/Iliacs Comple Appointment Date:04/17/2024 09:45:00 AM Scheduled Provider: Location:INF Appointment Type:INF Labwork Appointment Date:04/17/2024 10:30:00 AM Scheduled Provider:CLOVER KATZ MD Location:[facility]C Appointment Type:HEM ONC OV Follow Up w/Active Treatment Appointment Date:04/17/2024 11:00:00 AM Scheduled Provider: Location:INF Appointment Type:INF Chemo: Infusion Injection 15 min Appointment Date:05/24/2024 09:00:00 AM Scheduled Provider:CHARMAINE LO Location:[facility] Appointment Type:CV OV Future Scheduled Tests Laboratory* Lactate Dehydrogenase 04/17/24 * Prostate Specific Antigen 10/08/23 * Prostate Specific Antigen 06/28/23 * Prostate Specific Antigen 05/19/23 * Prostate Specific Antigen 04/17/24 * Complete Blood Count 04/17/24 * Complete Metabolic Panel 04/17/24 * N-Terminal proBNP 02/21/24 Radiology* NM Myocardial Spect Rest/Stress 09/21/23 [facility] Evaluation + Plan note Future Appointments Appointment Date:05/24/2024 09:00:00 AM Scheduled Provider:CHARMAINE OL Location:[facility] Appointment Type:CV OV Appointment Date:07/17/2024 [...] NM Myocardial Spect Rest/Stress 09/21/23 [facility] evaluation + Plan note Future Appointments Appointment Date:07/17/2024 09:00:00 AM Scheduled Provider:KAYLIE MEJÍA Location:UROLOGY Appointment Type:URO OV Appointment Date:12/11/2024 10:30:00 AM Scheduled Provider:CHARMAINE LO Location:[facility] Appointment Type:CV OV Future Scheduled Tests Laboratory* Lactate Dehydrogenase 04/17/24 * Prostate Specific Antigen 2 * Prostate Specific Antigen 06/28/23 * Prostate Specific Antigen 05/19/23 * Prostate Specific Antigen 07/20/24 * Prostate Specific Antigen 04/17/24 * Complete Blood Count 04/17/24 * Complete Metabolic Panel 04/17/24 * N-Terminal proBNP 02/21/24 Radiology* NM Myocardial Spect Rest/Stress 09/21/23 [facility] Evaluation + Plan note Future Appointments Appointment Date:07/20/2024 01:50:00 PM Scheduled Provider:EZEKIEL BURRIS MD Location:UROLOGY Appointment Type:URO OV Appointment Date:12/11/2024 10:30:00 AM Scheduled Provider:CHARMAINE LO Location:[facility] Appointment Type:CV OV Future Scheduled Tests Laboratory* Lactate Dehydrogenase 04/17/24 * Prostate Specific Antigen 2324 * Prostate Specific Antigen 06/28/23 * Prostate Specific Antigen 04/17/24 * Complete Blood Count 04/17/24 * Complete Metabolic Panel 04/17/24 * N-Terminal proBNP 02/21/24 Radiology* NM Myocardial Spect Rest/Stress 09/21/23 [facility] Evaluation + Plan note Future Appointments Appointment Date:08/17/2024 10:00:00 AM Scheduled Provider: Location:RAD Appointment Type:VL - Venous US/Doppler One Leg (for DVT) Appointment Date:12/11/2024 10:30:00 AM Scheduled Provider:CHARMAINE LO Location:[facility] Appointment Type:CV OV Appointment Date:01/21/2025 01:50:00 PM Scheduled Provider:EZEKIEL BURRIS MD Location:UROLOGY Appointment Type:URO OV Future Scheduled Tests Laboratory* Lactate Dehydrogenase 04/17/24 * Prostate Specific Antigen 2 * Prostate Specific Antigen 04/17/24 * Prostate Specific Antigen 01/17/25 * Complete Blood Count 04/17/24 * Complete Metabolic Panel 04/17/24 * N-Terminal proBNP 02/21/24 Radiology* NM Myocardial Spect Rest/Stress 09/21/23 [facility] Evaluation + Plan note Future Appointments Appointment Date:12/11/2024 10:30:00 AM Scheduled Provider:CHARMAINE LO Location:[facility] Appointment Type:CV OV Appointment Date:01/21/2025 01:50:00 PM Scheduled Provider:EZEKIEL BURRIS MD Location:UROLOGY Appointment Type:URO OV Future Scheduled Tests Laboratory* Lactate Dehydrogenase 04/17/24 * Prostate Specific Antigen 23 * Prostate Specific Antigen 04/17/24 * Prostate Specific Antigen 01/17/25 * Complete Blood Count 04/17/24 * Complete Metabolic Panel 04/17/24 * N-Terminal proBNP 02/21/24 Radiology* NM Myocardial Spect Rest/Stress 09/21/23 [facility] Evaluation + Plan note Future Appointments Appointment Date:10/17/2024 08:00:00 AM Scheduled Provider: Location:Echo Appointment Type:CV EL w/o Anesthesia Appointment Date:12/11/2024 10:30:00 AM Scheduled Provider:CHARMAINE LO Location:[facility] Appointment Type:CV OV Appointment Date:01/21/2025 01:50:00 PM Scheduled Provider:EZEKIEL BURRIS MD Location:UROLOGY Appointment Type:URO OV Diagnostic Tests Pending * Lyme Disease Serology w/Reflex 10/03/24 Future Scheduled Tests Laboratory* Lactate Dehydrogenase 04/17/24 * Prostate Specific Antigen 23 * Prostate Specific Antigen 04/17/24 * Prostate Specific Antigen 01/17/25 * Complete Blood Count 04/17/24 * Complete Metabolic Panel 04/17/24 * N-Terminal proBNP 02/21/24 [facility] Evaluation + Plan note Future Appointments Appointment Date:12/11/2024 10:30:00 AM Scheduled Provider:CHARMAINE LO Location:[facility] Appointment Type:CV OV Appointment Date:01/21/2025 01:50:00 PM Scheduled Provider:EZEKIEL BURRIS MD Location:UROLOGY Appointment Type:URO OV Future Scheduled Tests Laboratory* Lactate Dehydrogenase 04/17/24 * Prostate Specific Antigen 2 * Prostate Specific Antigen 04/17/24 * Prostate Specific Antigen 01/17/25 * Complete Blood Count 04/17/24 * Complete Metabolic Panel 04/17/24 * N-Terminal proBNP 02/21/24 [facility] Evaluation + Plan note Future Appointments Appointment Date:12/11/2024 10:30:00 AM Scheduled Provider:CHARMAINE LO Location:[facility] Appointment Type:CV OV Appointment Date:01/21/2025 01:50:00 PM Scheduled Provider:EZEKIEL BURRIS MD Location:UROLOGY Appointment Type:URO OV Future Scheduled Tests Laboratory* Lactate Dehydrogenase 04/17/24 * Prostate Specific Antigen 04/17/24 * Prostate Specific Antigen 01/17/25 * Complete Blood Count 04/17/24 * Complete Metabolic Panel 04/17/24 * N-Terminal proBNP 02/21/24 [facility] Evaluation + Plan note Future Appointments Appointment Date:02/20/2025 02:40:00 PM Scheduled Provider:KAYLIE MEJÍA Location:UROLOGY Appointment Type:URO OV Appointment Date:06/20/2025 10:00:00 AM Scheduled Provider:CHARMAINE LO Location:[facility] Appointment Type:CV OV Future Scheduled Tests Laboratory* Lactate Dehydrogenase 04/17/24 * Prostate Specific Antigen 04/17/24 * Complete Blood Count 04/17/24 * Complete Metabolic Panel 04/17/24 * N-Terminal proBNP 02/21/24 [facility] Evaluation + Plan note Future Appointments Appointment Date:06/20/2025 10:00:00 AM Scheduled Provider:CHARMAINE LO Location:[facility] Appointment Type:CV OV Appointment Date:08/26/2025 01:10:00 PM Scheduled Provider:RUBINA CEE MD Location:UROLOGY Appointment Type:URO OV Future Scheduled Tests Laboratory* Lactate Dehydrogenase 04/17/24 * Prostate Specific Antigen 08/22/25 * Prostate Specific Antigen 04/17/24 * Complete Blood Count 04/17/24 * Complete Metabolic Panel 04/17/24 [facility] Evaluation + Plan note Future Appointments Appointment Date:08/26/2025 01:10:00 PM Scheduled Provider:RBUINA CEE MD Location:UROLOGY Appointment Type:URO OV Appointment Date:12/19/2025 10:00:00 AM Scheduled Provider:CHARMAINE LO Location:[facility] Appointment Type:CV OV Future Scheduled Tests Laboratory* Prostate Specific Antigen 08/22/25 [facility] Evaluation note* Diagnosis Multiple open wounds- Primary Open wound(s) (multiple) of unspecified site(s), without mention of complication Cellulitis of left buttock Cellulitis and abscess of buttock [facility] Diagnosis Injury of left upper arm, initial encounter- Primary Biceps tendonitis on left Bicipital tenosynovitis Injury of left upper arm, initial encounter documented in this encounter [facility] note* Diagnosis Injury of left upper arm, initial encounter documented in this encounter [facility] note* Diagnosis Anemia, unspecified type- Primary Other pancytopenia (HCC) Other pancytopenia documented in this encounter [facility] note* Diagnosis Anemia, unspecified type- Primary documented in this encounter [facility] noteNo assessment information availableWOhio[facility] Work Phone: Evaluation note* Diagnosis Anemia, unspecified type- Primary documented in this encounter [facility] course Narrative No data available for this section [facility] Hospital Discharge instructions No data available for this section [facility] Progress note No data available for this section [facility] Reason for referral (narrative)No reason for referral information availableWOhio[facility] Work Phone: Reason for visit Narrative* Diagnostic Procedure Only (Routine) - Closed Specialty Diagnoses / Procedures Referred By Contac t Referred To Contact XR IMAGING Diagnoses Injury of left upper arm, initial encounter Procedures XR HUMERUS 2V AP/LAT LEFT RADEX HUMERUS MINIMUM 2 VIEWS 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, [employer]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.[employer] [address] [place] [address] Phone: tel: fax: XR IMAGING [place] [phone] Referral ID Status Reason Start Date Expiration Date V isits Requested Visits Authorized [id number] Closed Auto-Generate d Referral 11/29/2024 12/29/2025 1 1 [facility] note* Elsa Herrera: PERFORM Event Display: Patient Summary Documents Authored Date: [facility]* Elsa Herrera: PERFORM Event Display: Patient Summary Documents Authored Date: [facility] Summary Purpose Family History No Family [...] FoundDocuments on File Type Date Recorded 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 Advance Directive(s) 02/22/2025 3:18 PM Additional Source Comments (unrecognized sect ion and content) No Status Records FoundNo Status Records FoundNo Status Records FoundNo Status Records FoundNo Status Records FoundNo Status Records FoundNo Status Records FoundNo Status Records Found INFORMATION SOURCE (unrecogn ized section and content) DATE CREATED AUTHOR 02/27/2018 [facility] [place] DATE CREATED AUTHOR AUTHOR'S ORGANIZ ATION 03/01/2018 [facility] DATE CREATED AUTHOR AUTHOR'S ORGANIZ ATION 04/25/2024 [facility] DATE CREATED AUTHOR AUTHOR'S ORGANIZ ATION 11/30/2024 [facility] DATE CREATED AUTHOR AUTHOR'S ORGANIZ ATION 03/22/2025 [facility] DATE CREATED AUTHOR AUTHOR'S ORGANIZ ATION 05/10/2025 [place] DATE CREATED AUTHOR AUTHOR'S ORGANIZ ATION 06/29/2025 [facility] DATE CREATED AUTHOR AUTHOR'S ORGANIZ ATION 07/12/2025 [facility] Source Comments (unrecognize d section and content) In the event this informatio n is protected by the Federal Confidentiality of Alcohol and Drug Abuse Patient Records regulations: The Federal rules restrict any use of the information to criminally investigate or prosecute any alcohol or drug abuse patient.[facility] the event this information is protected by the Federal Confidentiality of Alcohol and Drug Abuse Patient Records regulations: The Federal rules restrict any use of the information to criminally investigate or prosecute any alcohol or drug abuse patient.[facility] Center[facility] the event this information is protected by the Federal Confidentiality of Alcohol and Drug Abuse Patient Records regulations: The Federal rules restrict any use of the information to criminally investigate or prosecute any alcohol or drug abuse patient.[facility] Center[facility] the event this information is protected by the Federal Confidentiality of Alcohol and Drug Abuse Patient Records regulations: The Federal rules restrict any use of the information to criminally investigate or prosecute any alcohol or drug abuse patient.[facility] Center[facility] the event this information is protected by the Federal Confidentiality of Alcohol and Drug Abuse Patient Records regulations: The Federal rules restrict any use of the information to criminally investigate or prosecute any alcohol or drug abuse patient.[facility] Center[facility] the event this information is protected by the Federal Confidentiality of Alcohol and Drug Abuse Patient Records regulations: The Federal rules restrict any use of the information to criminally investigate or prosecute any alcohol or drug abuse patient.[facility] CenterIn the event this information is protected by the Federal Confidentiality of Alcohol and Drug Abuse Patient Records regulations: The Federal rules restrict any use of the information to criminally investigate or prosecute any alcohol or drug abuse patient.[facility] CenterIn the event this information is protected by the Federal Confidentiality of Alcohol and Drug Abuse Patient Records regulations: The Federal rules restrict any use of the information to criminally investigate or prosecute any alcohol or drug abuse patient.[facility] Center[facility] the event this information is protected by the Federal Confidentiality of Alcohol and Drug Abuse Patient Records regulations: The Federal rules restrict any use of the information to criminally investigate or prosecute any alcohol or drug abuse patient.[facility] CenterIn the event this information is protected by the Federal Confidentiality of Alcohol and Drug Abuse Patient Records regulations: The Federal rules restrict any use of the information to criminally investigate or prosecute any alcohol or drug abuse patient.[facility] CenterIn the event this information is protected by the Federal Confidentiality of Alcohol and Drug Abuse Patient Records regulations: The Federal rules restrict any use of the information to criminally investigate or prosecute any alcohol or drug abuse patient.[facility] CenterIn the event this information is protected by the Federal Confidentiality of Alcohol and Drug Abuse Patient Records regulations: The Federal rules restrict any use of the information to criminally investigate or prosecute any alcohol or drug abuse patient.[facility] CenterIn the event this information is protected by the Federal Confidentiality of Alcohol and Drug Abuse Patient Records regulations: The Federal rules restrict any use of the information to criminally investigate or prosecute any alcohol or drug abuse patient.[facility] CenterIn the event this information is protected by the Federal Confidentiality of Alcohol and Drug Abuse Patient Records regulations: The Federal rules restrict any use of the information to criminally investigate or prosecute any alcohol or drug abuse patient.[facility] Care Team (unrecognized sect ion and content) Food Technologist Relationship Specialty Start Date End Date Jaki Fleming DO PCP - General Internal Medicine 10/26/10 Food Technologist Relationship Specialty Start Date End Date Jaki Fleming DO PCP - General Internal Medicine 10/26/10 Food Technologist Relationship Specialty Start Date End Date Jaki Fleming DO PCP - General Internal Medicine 10/26/10 Food Technologist Relationship Specialty Start Date End Date Jaki Fleming DO PCP - General Internal Medicine 10/26/10 Food Technologist Relationship Specialty Start Date End Date Jaki Fleming DO PCP - General Internal Medicine 10/26/10 Food Technologist Relationship Specialty Start Date End Date Jaki Fleming DO PCP - General Internal Medicine 10/26/10 Ha Luque MD [address] [place], [place] [id number] Hematology/Oncology 12/17/24 Team Status: Active Member Role Status Dates Dr. Jaki Fleming DO Family Provider Active Dr. Jaki Fleming DO Primary Care Provider Active Team Status: Inactive Member Role Status Dates Dr. Jaki Fleming DO Primary Care Provider Active Start: February 05, 2025 End: February 05, 2025 Dr. Isabella Justice MD Attending Provider Active Start: February 05, 2025 End: February 05, 2025 Food Technologist Relationship Specialty Start Date End Date Jaki Fleming DO PCP - General Internal Medicine 10/26/10 Ha Luque MD [address] [place] [address] Hematology/Oncology 12/17/24 Food Technologist Relationship Specialty Start Date End Date Jaki Fleming DO PCP - General Internal Medicine 10/26/10 Ha Luque MD [address] [place] [address] Hematology/Oncology 12/17/24 Team Status: Active [...] May 01, 2025 End: May 01, 2025 Food Technologist Relationship Specialty Start Date End Date Jaki Fleming DO PCP - General Internal Medicine 10/26/10 Ha Luque MD [address] [facility] [place] [address] Hematology/Oncology 12/17/24 Care Team (unrecognized sect ion and content) Personnel Name: JAKI FLEMING DO Address: Address: [address] [place] [address] [facility] [place], [place] [id number] [place] [address] Care Team Personnel Name: MAXIMUS CORONEL JR, MD Position: Physician - General Surgery Med Service: Grecia Anderson M.D. Member Role: Surgeon Address: Address: [address] [place] [address] [address] [place] [address]- [place] Name: JAKI FLEMING DO Position: Physician Med Service: Active Provider Member Role: Primary Care Physician Address: Address: [address] [place] [address]- [place] Name: MARIYA ALVAREZ MD Position: P4 Physician - Urologist Member Role: Urologist Address: Address: [address] [place] [address] [address] [place] [address]- [place] Care Team Related Persons Name: CHRISTIANO GALAVIZ Address: Home [address] [place], [place] [id number] [place] Care Team Personnel Name: MAXIMUS CORONEL JR, MD Position: P4 Physician - General Surgery Med Service: Grecia Anderson M.D. Member Role: Surgeon Address: Address: [address] [place] [address] [address] [place] [id number]- Name: JAKI FLEMING DO Position: Physician Med Service: Active Provider Member Role: Primary Care Physician Address: Address: [address] [place] [address]- [place] Name: MARIYA ALVAREZ MD Position: P4 Physician - Urologist Member Role: Urologist Address: Address: [address] [place] [address] [address] [place] [address]- Care Team Related Persons Name: CHRISTIANO GALAVIZ Address: Home [address] [place], [place] [id number] [place] Care Team Personnel Name: MAXIMUS CORONEL JR, MD Position: P4 Physician - General Surgery Address: Address: [address] [place] [address] [address] [place] [address]- [place] Name: JAKI FLEMING DO Position: Physician Member Role: Primary Care Physician Address: Address: [address] [place] [address]- Name: MARIYA ALVAREZ MD Position: P4 Physician - Urologist Address: Address: [address] [place] [address] [address] [place] [address]- [place] Care Team Related Persons Name: CHRISTIANO GALAVIZ Address: Home [address] [place], [place] [id number] [place] Care Team Personnel Name: MAXIMUS CORONEL JR, MD Position: P4 Physician - General Surgery Med Service: Grecia Anderson M.D. Member Role: Surgeon Address: Address: [address] [place] [address] [address] [id number] [place] Name: JAKI FLEMING DO Position: Physician Med Service: Active Provider Member Role: Primary Care Physician Address: Address: [address] [place] [id number]- [place] Name: MARIYA ALVAREZ MD Position: P4 Physician - Urologist Member Role: Urologist Address: Address: [address] [place] [address] [address] [id number]- Care Team Related Persons Name: CHRISTIANO GALAVIZ Address: Home [address] [place], [place] [phone] [place] Care Team Personnel Name: MAXIMUS CORONEL JR, MD Position: P4 Physician - General Surgery Member Role: Surgeon Address: Address: [address] [place] [address] [address] [id number] [place] Name: JAKI FLEMING DO Position: Physician Member Role: Primary Care Physician Address: Address: [address] [place] [address]- Name: MARIYA ALVAREZ MD Position: P4 Physician - Urologist Member Role: Urologist Address: Address: [address] [place] [address] [address] [place] [address]- Care Team Related Persons Name: CHRISTIANO GALAVIZ Address: Home [address] [place], [place] [phone] [place] Care Team Personnel Name: MAXIMUS CORONEL JR, MD Position: P4 Physician - General Surgery Member Role: Surgeon Address: Address: [address] [place] [address] [address] [place] [address]- [place] Name: JAKI FLEMING DO Position: Physician Member Role: Primary Care Physician Address: Address: [address] [place] [phone]- [place] Name: MARIYA ALVAREZ MD Position: P4 Physician - Urologist Member Role: Urologist Address: Address: [address] [place] [address] [address] [place] [address]- Care Team Related Persons Name: CHRISTIANO GALAVIZ Address: [place] [address] [facility] [place], [place] [phone] Reason for Visit (unrecogniz ed section and content) Reason Comments Imm/Inj Specialty Diagnoses / Procedures Referred By Contac t Referred To Contact Diagnoses Anemia, unspecified type Stage 3a chronic kidney disease (HCC) Procedures DARBEPOETIN ALVERTO, NON-ESRD Ha Luque MD [address] [place] [address] Phone: tel: Ha Luque MD [address] [place] [address] Phone: tel: Referral ID Status Reason Start Date Expiration Date V isits Requested Visits Authorized [id number] Authorized 01/04/2025 09/04/2025 0 99 Reason Comments [...] BE BASED ON THE PRIMARY CLINICAL RECORDS. [employer] provides no warranty or guarantee of the accuracy or completeness of information in this document.
--- NOTE | 2025-08-30 15:56 | RAD_ITS ---
PROCEDURE: HIP, UNI W/ PELVIS 2-3 VIEWS 08/30/2025 REASON FOR EXAM: LEFT HIP PAIN TECHNIQUE: Procedure Code: [facility] Modality: DX Procedure: HIP, UNI W/ PELVIS 2-3 VIEWS COMPARISON: None FINDINGS: AP view of the pelvis was obtained as well as two views of the left hip. There are no fractures or dislocations. Mild degenerative osteoarthritic changes are seen involving the right hip joint. Moderate degenerative osteoarthritic changes are seen involving the left hip joint. SI joints are well preserved. Mild degenerative osteoarthritic changes are seen involving the pubic symphysis. Spondylosis of the lower lumbar spine is noted. Surgical clips are projected below the left pelvic region. Phleboliths are seen in the pelvis. RAD/HIP, UNI W/ Pelvis 2-3 Views IMPRESSION: Mild degenerative osteoarthritic changes are seen involving the right hip and m oderate degenerative osteoarthritic changes are seen involving the left hip. Mild degenerative osteoarthritic changes are seen involving the pubic symphysis . Spondylosis of the lower lumbar spine is noted. Reading Location: [id number]
[2025-08-30 16:46] VITALS: BP 167/84; PULSE 79; RESP 16; O2SAT 97
--- NOTE | 2025-08-30 17:50 | HP.PCM.HOS_ITS ---
HPI - General General Date of Admission: 08/30/25 Date of Service: 08/30/25 Chief Complaint: back pain HPI Narrative TESSY DUPREE, is a 89 M with pmhx of chronic low back pain pt of [facility], hx bioprosthetic valve, Dmt2, questionable hx of pAfib on eliquis, prostate cancer in remission, who presents to the ER with left low back pain, left hip pain, and pain radiating down the left leg. Pain is currently 10/10. He had no injury or accidents, no heavy lifting or triggering movements. Pt was seen in urgent care for this last tuesday and placed on tizanidine, tylenol, and 10 mg po daily prednisone. He had no relief. He came to the ER for the same thing 3 days ago. He was changed to flexeril and started on endocet. He had some relief from the ER meds initially but then continued to worsen. He has since become weaker with inability to get out of bed and inability to get out of the chair. In the ER he had a CT of the lumbar spine which showed multilevel DDD with severe canal stenosis L4/L5 and severe bilateral foraminal stenosis L2/3/4. Pelvic XR with mild osteoarthritis in the left and right hip and pubic symphesis. He denies numbness or tingling. No bladder/bowel incontinence. [facility] Medical History HTN (hypertension) CAD (coronary artery disease) Diabetes Home Medications ?Medication ?Instructions ?Recorded ?Last Taken ?Type acetaminophen 500 mg tablet 1,000 mg PO Q6H PRN pain 1 10/28/24 Unknown History (Tylenol Extra Strength) apixaban 5 mg tablet (Eliquis) 5 mg PO BID 08/27/25 Un known History cyclobenzaprine 5 mg tablet 5 mg PO TID PRN muscle spa sm #20 08/27/25 Unknown Rx tabs empagliflozin 25 mg tablet 25 mg PO DAILY 08/27/25 Unk nown History (Jardiance) Held on 08/27/25. Instructions: Order Changed glipizide 5 mg tablet 5 mg PO DAILY 08/27/25 Unkno wn History leflunomide 10 mg tablet 10 mg PO DAILY 08/27/25 Unkn own History lisinopril 40 mg tablet 40 mg PO DAILY 08/27/25 Unkn own History metoprolol succinate 25 mg 25 mg PO DAILY 08/27/25 Unk nown History tablet,extended release 24 hr ondansetron 4 mg disintegrating 4 mg PO Q6H PRN nausea and 08/27/25 Unknown Rx tablet vomiting #20 tabs oxycodone-acetaminophen 5 mg-325 1 tab PO Q6H PRN pain 3 days #12 08/27/25 Unknown Rx mg tablet (Endocet) tabs prednisone 10 mg tablet 10 mg PO DAILY 08/27/25 Unkn own History sitagliptin phosphate 50 mg tablet 50 mg PO DAILY 08/06 11/27 Unknown History (Januvia) tizanidine 4 mg tablet 4 mg PO TID 08/27/25 Unknown History Allergy/AdvReac Type Severity Reaction Status Date / Time No Known Allergies Allergy Verified 08/30/25 12:42 Surgical History H/O aortic valve replacement with porcine valve Social History Smoking Status: Never smoker ROS Constitutional Constitutional: Denies chills, fatigue or fever(s) Cardiovascular Cardiovascular: Denies chest pain, edema, lightheadedness or palpitations Respiratory/Chest Respiratory/Chest: Denies cough, shortness of breath at rest or shortness of breath with exertion Gastrointestinal Gastrointestinal: Denies abdominal pain, nausea or vomiting Genitourinary Genitourinary: Denies burning urination or urinary incontinence Musculoskeletal Musculoskeletal: Reports back pain Neurologic Neurologic: Denies numbness, paresthesias or tingling Psychiatric Psychiatric: Denies anxiety or depression Endocrine Endocrinology: Denies change in body appearance Hematologic/Lymphatic Hematologic/Lymphatic: Denies anemia Allergic/Immunologic Allergic/Immunologic: Denies rhinitis Patient's Goals Of Care . What would you like to achieve or improve as a result of your hospital stay?: pain control Vital Signs Vital Signs Vital Signs: 08/30/25 12:41 08/30/25 16:46 Temperature 98.4 F Temperature Source Oral Pulse Rate 58 L 79 Respiratory Rate 16 16 Blood Pressure 140/87 H 167/84 H Blood Pressure Mean 104 111 Pulse Ox 95 97 Oxygen Delivery Method Room Air Physical Exam Const alert, oriented x3 and no apparent distress General Appearance: cooperative HEENT normocephalic and head/scalp atraumatic Eyes PERRL Neck no lymphadenopathy Resp normal respiratory effort, no use of accessory muscles and clear to auscultation bilaterally Cardio regular rate and regular rhythm Cardio Narrative: 2/6 systolic murmur GI soft to palpation and non-tender Palpation: Negative for guarding Extremity normal to inspection and full ROM Skin Skin Narrative: no wounds, rash, lesions Neuro oriented x3 Neuro Narrative: + straight leg raise test Sensorium / Orientation: awake and alert Psych affect normal Results Imaging Radiology Impression Lumbar Spine CT 08/30/25 15:29 IMPRESSION: Multilevel degenerate changes predominantly for severe canal stenosis and severe bilateral foramina stenosis at L2-L3 and L3-L4. Severe canal stenosis at L4-L5. 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 Mild degenerative osteoarthritic changes are seen involving the pubic symphysis. Spondylosis of the lower lumbar spine is noted. Reading Location: [facility] Assessment & Plan Assessment/Plan (1) Lumbar degenerative disc disease: PLAN: Plan 1. Intractable LBP and Left sided sciatica 2/2 severe lumbar DDD with severe canal stenosis and BL foraminal stenosis - failed outpatient therapy with low dose prednisone, flexeril, endocet. CT lumbar spine and pelvic xray reviewed as above. Pt will be admitted to med surg for pain control. Pt will be placed on PO oxycodone, IV morphine, 3 doses toradol (avoid long course with CKDIII), medrol dose pack, muscle relaxer, gabapentin, lidocaine patches. PTOT evals will be obtained. Pt follows pain management with [facility] - will need close outpatient follow up. 2. Hx pAFib - on eliquis, not on rate controlling agents. 3. Hx AVR with porcine valve 4. HTN - continue home meds, prn hydralazine. currently elevated likely 2/2 pain. 5. DMt2 - hold orals, start ssi, likely currently elevated 2/2 recent steroid use. pt will be on medrol and likely to need sliding scale coverage. 6. CKDIII - trend. Avoid aggressive NSAID use. 7. Chronic normocytic anemia - trend 8. mild thrombocytopenia - trend DVT ppx: eliquis DC planning: will need PTOT evals prior to DC Code status: discussed with patient, pt will remain full code at this time. This patient was seen by Corbin Aguilera PA-C under the supervision of Dr. Escoto.
--- OUTSIDE RECORDS SUMMARY | 2025-08-30 17:56 | XMS RPT_ITS | CCD ---
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 Role Phone Allen Phelps Unavailable Unavailable REFERRING, LISA WO ID Unavailable Unavailable ISABELLA JUSTICE Unavailable Unavailable JAKI FLEMING Unavailable Unavailable Jaki Fleming Primary Care Provider [phone] LONNIE KAUR, DR POLLACK Primary Care Physician Yang Rounding NurseRamon Unavailable Jaki Mckenna DO Primary Care Provider LONNIE KAUR, DR POLLACK Primary Care Unavailable LASHAE MOULTON MD Attending Unavailable [facility] Attending Unava ilable LONNIE KAUR, [...] DO, DR POLLACK Primary Care Unavailable [facility] DIETARY COOK-TEMPLE MARKER, CHARMAINE Attending Unavailab le LONNIE DO, DR POLLACK Primary Care Unavailable LONNIE DO, DR POLLACK Attending Unavailable LONNIE DO, DR POLLACK Primary Care Unavailable LONNIE DO, DR POLLACK Attending Unavailable LONNIE DO, DR POLLACK Primary Care Unavailable [facility] DIETARY COOK-TEMPLE MARKER, TIFFANY Attending Unavaila ble LONNIE DO, DR [...] DO, DR POLLACK Primary Care Unavailable [facility] DIETARY COOK-TEMPLE MARKER, CHARMAINE Attending Unavailab le LONNIE DO, DR POLLACK Primary Care Unavailable [facility] DIETARY COOK-TEMPLE MARKER, CHARMAINE Attending Unavailab le LONNIE DO, DR POLLACK Primary Care Unavailable RESHMA GUADALUPE, DR MASON Attending Unavailabl e LONNIE DO, DR POLLACK Primary Care Unavailable FROMMEL , RUBY Attending Unavailable LONNIE DO, DR POLLACK Primary Care Unavailable DAVION GUADALUPE, DR TAYLOR Chamorro Consulting Dillon SMITH DIETARY COOK-TEMPLE MARKER, FRANNIE Chapman Attending U navailable LONNIE DO, DR POLLACK Primary Care Unavailable [facility] DIETARY COOK-TEMPLE MARKER, KYAW Attending Unava ilable LONNIE DO, DR POLLACK Primary Care Unavailable [facility] DIETARY COOK-TEMPLE MARKER, CHARMAINE Attending Unavailab le LONNIE DO, DR [...] Primary Care Unavailable Ha Luque MD Unavailable [phone] Lonnie KAUR, Dr. Pollack Primary Care Provider [...] rosuvastatin; Translations: [ROSUVASTATIN] Drug Allergy 07-24-2020 Myalgia [facility] Medications Current Medications Medication Drug Class(es) [...] 10/30/23, # 60 tab(s), 0 Refill(s), Pharmacy: [facility], 178, cm, 10/18/23 13:12:00 EST, Height, [...] BID, # 45 gram(s), 1 Refill(s), Pharmacy: [facility], Cream, 180.3, cm, 02/20/25 14:27:00 EDT, [...] q24h, # 30 tab(s), 0 Refill(s), Pharmacy: [facility], 180.3, cm, 03/28/23 13:07:00 EDT, Height, kg, 03/28/23 13:07:00 EDT, Dosing Weight Start Date: 04/19/23 Status: Ordered cefdinir 300 mg oral capsule (1 source) Cephalosporin Antibacterial Start: 09-23-2023 End: 09-28-2023 cefdinir 300 mg oral capsule Dose : 300 mg = 1 cap(s), Oral, q12h, X 5 day(s), # 10 cap(s), 0 Refill(s), 09/28/23 11:11:00 AM EST, Pharmacy: [facility], 180.3, cm, 09/20/23 23:28:00 EST, Height, [...] 0 Refill(s), 11/06/23 3:48:00 PM EST, Pharmacy: [facility], Ureteral stone, 177.8, cm, 11/03/23 12:12:00 EST, Height, 91.2, kg, 11/03/23 12:12:00 EST, Dosing Weight Start Date: 11/03/23 Stop Date: 11/06/23 Status: Ordered CPAP (10 sources) CPAP daily at [facility]. Active CPAP Active CPAP diphenhydrAMINE hydrochloride [...] qDay, # 30 tab(s), 1 Refill(s), Pharmacy: [facility], 180.3, cm, 02/21/24 9:20:00 EDT, Height, [...] release), # 100 tab(s), 3 Refill(s), Pharmacy: [facility], 180.3, cm, 06/20/25 9:42:00 EDT, Height, [...] release), # 90 tab(s), 3 Refill(s), Pharmacy: [facility], 181.3, cm, 12/11/24 10:06:00 EDT, Height, [...] day(s), # 10 tab(s), 0 Refill(s), Pharmacy: [facility], 180.3, cm, 04/29/23 12:38:00 EDT, Height, 95.1, kg, 04/29/23 10:01:00 EDT, Dosing Weight Start Date: 05/02/23 Stop Date: 05/07/23 Status: Ordered tamsulosin hydrochloride 0.4 mg oral capsule (20 sources) alpha-Adrenergic Wyatt Start: 09-23-2023 tamsulosin 0.4 mg oral capsule Dose : 0.4 mg = 1 cap(s), Oral, qDayPC, # 30 cap(s), 0 Refill(s), Pharmacy: [facility], 180.3, cm, 09/20/23 23:28:00 EST, Height, [...] q12h, # 2 tab(s), 0 Refill(s), Pharmacy: [facility], 177.8, cm, 11/14/23 10:20:00 EDT, Height, [...] use of drug therapy; Translations: [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] Onset: 5 Episodic Other aftercare (1 source) Long-term current use of anticoagulant; Translations: [[facility] (current) use of anticoagulants] Onset: 5 Episodic [...] 11:50:47 AM Ordering Provider: ISHAAN HEARN Normal [facility] CBC W Auto Differential pane l (Bld)on 06-27-2025 Basophils (Bld) [#/Vol] 10*3/uL Normal <0.11 [facility] Comment on above: Order Comment: Speci men Type: BLOOD SPECIMENOrdering Facility: [facility] Address: [address] [place] [address] [place] [address] Performed By: #### 5 7021-8 ####[facility] MILLWNCLIA [id number] [place] [address] [place] Basophils/100 WBC (Bld) 0.4 % Normal [facility] Comment on above: Order Comment: Speci men Type: BLOOD SPECIMENOrdering Facility: [facility] Address: [address] [place] [address] Performed By: #### 5 7021-8 ####[facility] HOSPITALLIA [id number] [place] [address] [place] Differential cell count method Nom (Bld) Auto Normal [facility] Comment on above: Order Comment: Speci men Type: BLOOD SPECIMENOrdering Facility: [facility] Address: [address] [place] [address] Performed By: #### 5 7021-8 ####[facility] [id number] [place] [address] [place] Eosinophils (Bld) [#/Vol] 0.14 10*3/uL Normal <0.46 [facility] Comment on above: Order Comment: Speci men Type: BLOOD SPECIMENOrdering Facility: [facility] Address: [address] [place] [address] Performed By: #### 5 7021-8 ####[facility] [id number] [place] [address] [place] Eosinophils/100 WBC (Bld) 2.8 % Normal [facility] Comment on above: Order Comment: Speci men Type: BLOOD SPECIMENOrdering Facility: [facility] Address: [address] [place] [address] Performed By: #### 5 7021-8 ####[facility] RIVERNCLIA [id number] [place] [address] [place] Erythrocyte distribution width (RBC) [Ratio] 15.8 % High 11.5-15.0 [facility] Comment on above: Order Comment: Speci men Type: BLOOD SPECIMENOrdering Facility: [facility] Address: [address] [place] [address] Performed By: #### 5 7021-8 ####[facility] [id number] [place] [address] [place] Hematocrit (Bld) [Volume fraction] 31.8 % Low 39.0-51.0 [facility] Comment on above: Order Comment: Speci men Type: BLOOD SPECIMENOrdering Facility: [facility] Address: [address] [place] [address] Performed By: #### 5 7021-8 ####[facility] [id number] [place] [address] [place] Hemoglobin (Bld) [Mass/Vol] 10.1 g/dL Low 13.0-17.0 [facility] Comment on above: Order Comment: Speci men Type: BLOOD SPECIMENOrdering Facility: [facility] Address: [address] [place] [address] Performed By: #### 5 7021-8 ####[facility] [id number] [place] [address] [place] Immature granulocytes (Bld) [#/Vol] 10*3/uL Normal <0.10 [facility] Comment on above: Order Comment: Speci men Type: BLOOD SPECIMENOrdering Facility: [facility] Address: [address] [place] [address] Performed By: #### 5 7021-8 ####[facility] [id number] [place] [address] [place] Immature granulocytes/100 WBC (Bld) 0.2 % Normal [facility] Comment on above: Order Comment: Speci men Type: BLOOD SPECIMENOrdering Facility: [facility] Address: [address] [place] [address] Performed By: #### 5 7021-8 ####[facility] AMBERCHIPA [id number] [place] [address] [place] Lymphocytes (Bld) [#/Vol] 0.39 10*3/uL Low 1.00-4.00 [facility] Comment on above: Order Comment: Speci men Type: BLOOD SPECIMENOrdering Facility: [facility] Address: [address] [place] [address] Performed By: #### 5 7021-8 ####[facility] [id number] [place] [address] [place] Lymphocytes/100 WBC (Bld) 7.7 % Normal [facility] Comment on above: Order Comment: Speci men Type: BLOOD SPECIMENOrdering Facility: [facility] Address: [address] [place] [address] Performed By: #### 5 7021-8 ####[facility] RIVERNCJOHN [id number] [place] [address] [place] MCH (RBC) [Entitic mass] 28.5 pg Normal 26.0-34.0 [facility] Comment on above: Order Comment: Speci men Type: BLOOD SPECIMENOrdering Facility: [facility] Address: [address] [place] [address] Performed By: #### 5 7021-8 ####[facility] RIVERNCLIA [id number] [place] [address] [place] MCHC (RBC) [Mass/Vol] 31.8 g/dL Normal 30.5-36.0 [facility] Comment on above: Order Comment: Speci men Type: BLOOD SPECIMENOrdering Facility: [facility] Address: [address] [place] [address] Performed By: #### 5 7021-8 ####[facility] AMBERWNCLIA [id number] [place] [address] [place] MCV (RBC) [Entitic vol] 89.8 fL Normal 80.0-100.0 [facility] Comment on above: Order Comment: Speci men Type: BLOOD SPECIMENOrdering Facility: [facility] Address: [address] [place] [address] Performed By: #### 5 7021-8 ####[facility] [id number] [place] [address] [place] Monocytes (Bld) [#/Vol] 0.63 10*3/uL Normal <0.87 [facility] Comment on above: Order Comment: Speci men Type: BLOOD SPECIMENOrdering Facility: [facility] Address: [address] [place] [address] Performed By: #### 5 7021-8 ####[facility] [id number] [place] [address] [place] Monocytes/100 WBC (Bld) 12.5 % Normal [facility] Comment on above: Order Comment: Speci men Type: BLOOD SPECIMENOrdering Facility: [facility] Address: [address] [place] [address] Performed By: #### 5 7021-8 ####[facility] [id number] [place] [address] [place] Neutrophils (Bld) [#/Vol] 3.85 10*3/uL Normal 1.45-7.50 [facility] Comment on above: Order Comment: Speci men Type: BLOOD SPECIMENOrdering Facility: [facility] Address: [address] [place] [address] Performed By: #### 5 7021-8 ####[facility]ALL[facility] [id number] [place] [address] [place] Neutrophils/100 WBC (Bld) 76.4 % Normal [facility] Comment on above: Order Comment: Speci men Type: BLOOD SPECIMENOrdering Facility: [facility] Address: [address] [place] [address] Performed By: #### 5 7021-8 ####[facility] [id number] [place] [address] [place] Nucleated RBC (Bld) [#/Vol] 10*3/uL Normal <0.01 [facility] Comment on above: Order Comment: Speci men Type: BLOOD SPECIMENOrdering Facility: [facility] Address: [address] [place] [address] Performed By: #### 5 7021-8 ####[facility] [id number] [place] [address] [place] Nucleated RBC/100 WBC (Bld) [Ratio] 0.0 /100 WBC Normal [facility] Comment on above: Order Comment: Speci men Type: BLOOD SPECIMENOrdering Facility: [facility] Address: [address] [place] [address] Performed By: #### 5 7021-8 ####[facility] [id number] [place] [address] [place] Platelet mean volume (Bld) [Entitic vol] 9.6 fL Normal 9.0-12.7 [facility] Comment on above: Order Comment: Speci men Type: BLOOD SPECIMENOrdering Facility: [facility] Address: [address] [place] [address] Performed By: #### 5 7021-8 ####[facility] [id number] [place] [address] [place] Platelets (Bld) [#/Vol] 131 10*3/uL Low 150-400 [facility] Comment on above: Order Comment: Speci men Type: BLOOD SPECIMENOrdering Facility: [facility] Address: [address] [place] [address] Performed By: #### 5 7021-8 ####[facility] BRADY CALRKDANBURYNCLIA [id number] [place] [address] [place] RBC (Bld) [#/Vol] 3.54 10*6/uL Low 4.20-6.00 [facility] Comment on above: Order Comment: Speci men Type: BLOOD SPECIMENOrdering Facility: [facility] Address: [address] [place] [address] Performed By: #### 5 7021-8 ####[facility] AMBERDANBURYNCLIA [id number] [place] [address] [place] WBC (Bld) [#/Vol] 5.04 10*3/uL Normal 3.70-11.00 [facility] Comment on above: Order Comment: Speci men Type: BLOOD SPECIMENOrdering Facility: [facility] Address: [address] [place] [address] Performed By: #### 5 7021-8 ####[facility] RIVERIBETHA [id number] [place] [address] [place] CNOVSPon 06-27-2025 [facility] Visit (SP) Office (CHARISMA) -------- JAYLEN GALAVIZ ([id number]) 1935 M Date Time Provider Department 06/27/25 [...] Had RT to prostate 2022 at [facility]. WBC 2.7-3.1 in September, hgb 9.5 [...] Benign hypertension Bilateral leg pain 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 Centrilobular emphysema (HCC) CKD (chronic kidney [...] Reported on (more content not included)... Normal [facility] CBC W Auto Differential pane l (Bld)on 05-16-2025 Basophils (Bld) [#/Vol] 0.03 10*3/uL Normal <0.11 [facility] Comment on above: Order Comment: Speci men Type: BLOOD SPECIMENOrdering Facility: [facility] Address: [address] [place] [address] Performed By: #### 5 7021-8 ####[facility] [id number] [place] [address] [place] Basophils/100 WBC (Bld) 0.8 % Normal [facility] Comment on above: Order Comment: Speci men Type: BLOOD SPECIMENOrdering Facility: [facility] Address: [address] [place] [address] Performed By: #### 5 7021-8 ####[facility] [id number] [place] [address] [place] Differential cell count method Nom (Bld) Auto Normal [facility] Comment on above: Order Comment: Speci men Type: BLOOD SPECIMENOrdering Facility: [facility] Address: [address] [place] [address] Performed By: #### 5 7021-8 ####[facility] [id number] [place] [address] [place] Eosinophils (Bld) [#/Vol] 0.13 10*3/uL Normal <0.46 [facility] Comment on above: Order Comment: Speci men Type: BLOOD SPECIMENOrdering Facility: [facility] Address: [address] [place] [address] Performed By: #### 5 7021-8 ####[facility] HOSPITALL[facility] [id number] [place] [address] [place] Eosinophils/100 WBC (Bld) 3.6 % Normal [facility] Comment on above: Order Comment: Speci men Type: BLOOD SPECIMENOrdering Facility: [facility] Address: [address] [place] [address] Performed By: #### 5 7021-8 ####[facility] [id number] [place] [address] [place] Erythrocyte distribution width (RBC) [Ratio] 16.6 % High 11.5-15.0 [facility] Comment on above: Order Comment: Speci men Type: BLOOD SPECIMENOrdering Facility: [facility] Address: [address] [place] [address] Performed By: #### 5 7021-8 ####[facility] [id number] [place] [address] [place] Hematocrit (Bld) [Volume fraction] 32.4 % Low 39.0-51.0 [facility] Comment on above: Order Comment: Speci men Type: BLOOD SPECIMENOrdering Facility: [facility] Address: [address] [place] [address] Performed By: #### 5 7021-8 ####[facility] [id number] [place] [address] [place] Hemoglobin (Bld) [Mass/Vol] 10.2 g/dL Low 13.0-17.0 [facility] Comment on above: Order Comment: Speci men Type: BLOOD SPECIMENOrdering Facility: [facility] Address: [address] [place] [address] Performed By: #### 5 7021-8 ####[facility] [id number] [place] [address] [place] Immature granulocytes (Bld) [#/Vol] 0.03 10*3/uL Normal <0.10 [facility] Comment on above: Order Comment: Speci men Type: BLOOD SPECIMENOrdering Facility: [facility] Address: [address] [place] [address] Performed By: #### 5 7021-8 ####[facility] AMBERROSIELIA [id number] [place] [address] [place] [facility] Immature granulocytes/100 WBC (Bld) 0.8 % Normal [facility] Comment on above: Order Comment: Speci men Type: BLOOD SPECIMENOrdering Facility: [facility] Address: [address] [place] [address] Performed By: #### 5 7021-8 ####[facility] RIVERNCLIA [id number] [place] [address] [place] Lymphocytes (Bld) [#/Vol] 0.38 10*3/uL Low 1.00-4.00 [facility] Comment on above: Order Comment: Speci men Type: BLOOD SPECIMENOrdering Facility: [facility] Address: [address] [place] [address] Performed By: #### 5 7021-8 ####[facility] RIVERNCLIA [id number] [address] [place] Lymphocytes/100 WBC (Bld) 10.6 % Normal [facility] Comment on above: Order Comment: Speci men Type: BLOOD SPECIMENOrdering Facility: [facility] Address: [address] [place] [address] Performed By: #### 5 7021-8 ####[facility] [id number] [place] [address] [place] MCH (RBC) [Entitic mass] 28.5 pg Normal 26.0-34.0 [facility] Comment on above: Order Comment: Speci men Type: BLOOD SPECIMENOrdering Facility: [facility] Address: [address] [place] [address] Performed By: #### 5 7021-8 ####[facility] [id number] [place] [address] [place] MCHC (RBC) [Mass/Vol] 31.5 g/dL Normal 30.5-36.0 [facility] Comment on above: Order Comment: Speci men Type: BLOOD SPECIMENOrdering Facility: [facility] Address: [address] [place] [address] Performed By: #### 5 7021-8 ####[facility] [id number] [place] [address] [place] MCV (RBC) [Entitic vol] 90.5 fL Normal 80.0-100.0 [facility] Comment on above: Order Comment: Speci men Type: BLOOD SPECIMENOrdering Facility: [facility] Address: [address] [place] [address] Performed By: #### 5 7021-8 ####[facility] [id number] [place] [address] [place] Monocytes (Bld) [#/Vol] 0.66 10*3/uL Normal <0.87 [facility] Comment on above: Order Comment: Speci men Type: BLOOD SPECIMENOrdering Facility: [facility] Address: [address] [place] [address] Performed By: #### 5 7021-8 ####[facility] [id number] [place] [address] [place] Monocytes/100 WBC (Bld) 18.3 % Normal [facility] Comment on above: Order Comment: Speci men Type: BLOOD SPECIMENOrdering Facility: [facility] Address: [address] [place] [address] Performed By: #### 5 7021-8 ####[facility] RIVERNCLIA [id number] [place] [address] [place] Neutrophils (Bld) [#/Vol] 2.37 10*3/uL Normal 1.45-7.50 [facility] Comment on above: Order Comment: Speci men Type: BLOOD SPECIMENOrdering Facility: [facility] Address: [address] [place] [address] Performed By: #### 5 7021-8 ####[facility] [id number] [place] [address] [place] Neutrophils/100 WBC (Bld) 65.9 % Normal [facility] Comment on above: Order Comment: Speci men Type: BLOOD SPECIMENOrdering Facility: [facility] Address: [address] [place] [address] Performed By: #### 5 7021-8 ####[facility] [id number] [place] [address] [place] Nucleated RBC (Bld) [#/Vol] 10*3/uL Normal <0.01 [facility] Comment on above: Order Comment: Speci men Type: BLOOD SPECIMENOrdering Facility: [facility] Address: [address] [place] [address] Performed By: #### 5 7021-8 ####[facility] [id number] [place] [address] [place] Nucleated RBC/100 WBC (Bld) [Ratio] 0.0 /100 WBC Normal [facility] Comment on above: Order Comment: Speci men Type: BLOOD SPECIMENOrdering Facility: [facility] Address: [address] [place] [address] Performed By: #### 5 7021-8 ####[facility] [id number] [place] [address] [place] Platelet mean volume (Bld) [Entitic vol] 9.4 fL Normal 9.0-12.7 [facility] Comment on above: Order Comment: Speci men Type: BLOOD SPECIMENOrdering Facility: [facility] Address: [address] [place] [address] Performed By: #### 5 7021-8 ####[facility] SOCRATESNCLIA [id number] [place] [address] [place] Platelets (Bld) [#/Vol] 152 10*3/uL Normal 150-400 [facility] Comment on above: Order Comment: Speci men Type: BLOOD SPECIMENOrdering Facility: [facility] Address: [address] [place] [address] Performed By: #### 5 7021-8 ####[facility] AMBERLaurenNCLIA [id number] [place] [address] [place] RBC (Bld) [#/Vol] 3.58 10*6/uL Low 4.20-6.00 [facility] Comment on above: Order Comment: Speci men Type: BLOOD SPECIMENOrdering Facility: [facility] Address: [address] [place] [address] Performed By: #### 5 7021-8 ####[facility] RIVERNCLIA [id number] [place] [address] [place] WBC (Bld) [#/Vol] 3.60 10*3/uL Low 3.70-11.00 [facility] Comment on above: Order Comment: Speci men Type: BLOOD SPECIMENOrdering Facility: [facility] Address: [address] [place] [address] Performed By: #### 5 7021-8 ####[facility] RIVERNCLIA [id number] [address] CNOVSPon 05-16-2025 CNOVSP Visit (SP) Office (HEMAWS) -------- JAYLEN GALAVIZ ([id number]) 1935 M Date Time Provider Department 05/16/25 [...] Had RT to prostate 2022 at [facility]. WBC 2.7-3.1 in September, hgb 9.5 [...] Benign hypertension Bilateral leg pain 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 Centrilobular emphysema (HCC) CKD (chronic kidney [...] bedtime. pantoprazol (more content not included)... Normal [facility] Comprehensive metabolic 2000 panelon 05-16-2025 Albumin [Mass/Vol] 4.1 g/dL Normal 3.9-4.9 [facility] Comment on above: Order Comment: Speci men Type: BLOOD SPECIMENOrdering Facility: [facility] Address: [address] [place] [address] Performed By: #### 2 4323-8 ####[facility] [id number] [place] [address] [place] ALP [Catalytic activity/Vol] 66 U/L Normal 38-113 [facility] Comment on above: Order Comment: Speci men Type: BLOOD SPECIMENOrdering Facility: [facility] Address: [address] [place] [address] Performed By: #### 2 4323-8 ####[facility] [id number] [place] [address] [place] ALT [Catalytic activity/Vol] 16 U/L Normal 10-54 [facility] Comment on above: Order Comment: Speci men Type: BLOOD SPECIMENOrdering Facility: [facility] Address: [address] [place] [address] Performed By: #### 2 4323-8 ####[facility] [id number] [place] [address] [place] Anion gap [Moles/Vol] 8 mmol/L Normal 8-15 [facility] Comment on above: Order Comment: Speci men Type: BLOOD SPECIMENOrdering Facility: [facility] Address: [address] [place] [address] Performed By: #### 2 4323-8 ####[facility]CL[facility] [id number] [place] [address] [place] AST [Catalytic activity/Vol] 25 U/L Normal 14-40 [facility] Comment on above: Order Comment: Speci men Type: BLOOD SPECIMENOrdering Facility: [facility] Address: [address] [place] [address] Performed By: #### 2 4323-8 ####[facility]ENTERKerri [id number] [place] [address] [place] Bilirubin [Mass/Vol] 0.2 mg/dL Normal 0.2-1.3 [facility] Comment on above: Order Comment: Speci men Type: BLOOD SPECIMENOrdering Facility: [facility] Address: [address] [place] [address] Performed By: #### 2 4323-8 ####[facility]ERNCA [id number] [place] [address] [place] Calcium [Mass/Vol] 10.2 mg/dL Normal 8.5-10.2 [facility] Comment on above: Order Comment: Speci men Type: BLOOD SPECIMENOrdering Facility: [facility] Address: [address] [place] [address] Performed By: #### 2 4323-8 ####[facility] RIVERNCLIA [id number] [place] [address] [place] Chloride [Moles/Vol] 103 mmol/L Normal 98-107 [facility] Comment on above: Order Comment: Speci men Type: BLOOD SPECIMENOrdering Facility: [facility] Address: [address] [place] [address] Performed By: #### 2 4323-8 ####[facility] ROOMWNCLIA [id number] [place] [address] [place] CO2 [Moles/Vol] 25 mmol/L Normal 22-30 [facility] Comment on above: Order Comment: Speci men Type: BLOOD SPECIMENOrdering Facility: [facility] Address: [address] [place] [address] Performed By: #### 2 4323-8 ####[facility]ERNCLIA [id number] [place] [address] [place] Creatinine [Mass/Vol] 1.40 mg/dL High 0.73-1.22 [facility] Comment on above: Order Comment: Speci men Type: BLOOD SPECIMENOrdering Facility: [facility] Address: [address] [place] [address] Performed By: #### 2 4323-8 ####[facility] [id number] [place] [address] [place] eGFRcr SerPlBld CKD-EPI 2020 48 mL/min/1.73m??? Low >=60 [facility] Comment on above: Order Comment: Speci men Type: BLOOD SPECIMENOrdering Facility: [facility] Address: [address] [place] [address] Result Comment: Liliane mated Glomerular Filtration Rate [...] actual GFR. Performed By: #### 2 4323-8 ####[facility] ROOMWNCLIA [id number] [place] [address] [place] Glucose [Mass/Vol] 112 mg/dL High 74-99 [facility] Comment on above: Order Comment: Speci men Type: BLOOD SPECIMENOrdering Facility: [facility] Address: [address] [place] [address] Result Comment: The [place] [employer] Association (ADA) provides guidance for cutoff [...] Standards of Medical Care in Diabetes 2016, [place] [employer]. Diabetes Care. 2016.39(Suppl 1). Performed By: #### 2 4323-8 ####[facility] RIVEREDGARKerri [id number] [place] [address] [place] Potassium [Moles/Vol] 4.9 mmol/L Normal 3.7-5.1 [facility] Comment on above: Order Comment: Ellei men Type: BLOOD SPECIMENOrdering Facility: [facility] Address: [address] [place] [address] Performed By: #### 2 4323-8 ####[facility] RIVERROJAS [id number] [place] [address] [place] Protein [Mass/Vol] 6.6 g/dL Normal 6.3-8.0 [facility] Comment on above: Order Comment: Speci men Type: BLOOD SPECIMENOrdering Facility: [facility] Address: [address] [place], [place] [address] Performed By: #### 2 4323-8 ####[facility] RIVEREDGARLIA [id number] [place] [address] [place] Sodium [Moles/Vol] 136 mmol/L Normal 136-144 [facility] Comment on above: Order Comment: Speci men Type: BLOOD SPECIMENOrdering Facility: [facility] Address: [facility] [place] [address] Performed By: #### 2 4323-8 ####[facility] AMBERTOWNCLIA [id number] [place] [address] [place] Urea nitrogen [Mass/Vol] 37 mg/dL High 9-24 [facility] Comment on above: Order Comment: Speci men Type: BLOOD SPECIMENOrdering Facility: [facility] Address: [facility] [place] [address] Performed By: #### 2 4323-8 ####[facility] HAROONWNCLIA [id number] [address] STATES OF [facility] Absolute lymphocyte countOrd ered By: Isabella Justice on 05-01-2025 Lymphocytes Auto (Unsp spec) [#/Vol] 0.44 10*3/uL Low 0.83-4.51 [facility] Absolute neutrophil countOrd ered By: Isabella Justice on 05-01-2025 Neutrophils (Bld) [#/Vol] 2.3 10*3/uL 2.0-7.7 [facility] Anion gap in Serum or Plasma Ordered By: Isabella Justice on 05-01-2025 Anion gap [Moles/Vol] 11 mmol/L 5-15 [facility] Automated lymphocyte count a s percentage of total leukocytesOrdered By: Isabella Justice on 05-01-2025 Lymphocytes/100 WBC Auto (Unsp spec) 13.1 % Low 19-41 [facility] BUN/creatinine ratioOrdered By: Isabella Justice on 05-01-2025 Urea nitrogen/Creatinine [Mass ratio] 30.4 mg/mg High 10-20 [facility] Basophil percentageOrdered B y: Isabella Justice on 05-01-2025 Basophils/100 WBC (Bld) 0.9 % 0-1 [facility] Bilirubin, totalOrdered By: Isabella Justice on 05-01-2025 Bilirubin [Mass/Vol] 0.23 mg/dL 0.00-1.30 [facility] CBC W/Diff, Automatedon 08-2 -2024 Absolute Lymph 0.44 X10 3/uL Low 0.83-4.51 [facility] Comment on above: Performed By: #### L 500.4050, L100.0100 #### [facility] [address] [place], [address] Absolute Neut 2.3 X10 3/uL Normal 2.0-7.7 [facility] Comment on above: Performed By: #### L 500.4050, L100.0100 #### [facility] [address] [place], [address] Basophils/100 WBC (Bld) 0.9 % Normal 0-1 [facility] Comment on above: Performed By: #### L 500.4050, L100.0100 #### [facility] [address] [place], [address] Eosinophils/100 WBC (Bld) 3.6 % Normal 0-5 [facility] Comment on above: Performed By: #### L 500.4050, L100.0100 #### [facility] [address] [place], [address] Erythrocyte distribution width (RBC) [Ratio] 16.6 % High 11.6-14.6 [facility] Comment on above: Performed By: #### L 500.4050, L100.0100 #### [facility] [address] [place], [address] Hematocrit (Bld) [Volume fraction] 31.0 % Low 40-54 [facility] Comment on above: Performed By: #### L 500.4050, L100.0100 #### [facility] [address] [place], [address] Hemoglobin (Bld) [Mass/Vol] 9.5 g/dL Low 13.0-16.5 [facility] Comment on above: Performed By: #### L 500.4050, L100.0100 #### [facility] [address] [place], [address] IG% 0.900 Normal 0.0-0.9 [facility] Comment on above: Result Comment: IG% - Immature Granulocytes (promyelocytes, myelocytes and metamyelocytes) > 1% indicates that a LEFT SHIFT is Present. Performed By: #### L 500.4050, L100.0100 #### [facility] [address] [place], [address] Lymphocytes/100 WBC (Bld) 13.1 % Low 19-41 [facility] Comment on above: Performed By: #### L 500.4050, L100.0100 #### [facility] [address] [place], [address] MCH (RBC) [Entitic mass] 28.0 pg Normal 27.0-32.0 [facility] Comment on above: Performed By: #### L 500.4050, L100.0100 #### [facility] [address] [place], [address] MCHC (RBC) [Mass/Vol] 30.6 g/dL Low 32-36 [facility] Comment on above: Performed By: #### L 500.4050, L100.0100 #### [facility] [address] [place], [address] MCV (RBC) [Entitic vol] 91.4 fL Normal 80-94 [facility] Comment on above: Performed By: #### L 500.4050, L100.0100 #### [facility] [address] [place], [address] Monocytes/100 WBC (Bld) 14.8 % High 0-10 [facility] Comment on above: Performed By: #### L 500.4050, L100.0100 #### [facility] [address] [place], [address] Neutrophils/100 WBC (Bld) 66.7 % Normal 47-70 [facility] Comment on above: Performed By: #### L 500.4050, L100.0100 #### [facility] [address] [place], [address] Nucleated RBC (Bld) [#/Vol] 0 10*3/uL Normal 0-5 [facility] Comment on above: Performed By: #### L 500.4050, L100.0100 #### [facility] [address] [place], [address] Platelet mean volume (Bld) [Entitic vol] 9.9 fL Normal 6.2-12.0 [facility] Comment on above: Performed By: #### L 500.4050, L100.0100 #### [facility] [address] [place], [address] Platelets (Bld) [#/Vol] 129 10*3/uL Low 150-450 [facility] Comment on above: Performed By: #### L 500.4050, L100.0100 #### [facility] [address] [place], [address] RBC (Bld) [#/Vol] 3.39 10*6/uL Low 4.6-6.2 [facility] Comment on above: Performed By: #### L 500.4050, L100.0100 #### [facility] [address] [place], [address] RDW SD 55.6 fl High 35.1-43.9 [facility] Comment on above: Performed By: #### L 500.4050, L100.0100 #### [facility] [address] [place], [address] WBC (Bld) [#/Vol] 3.4 10*3/uL Low 4.4-11.0 [facility] Comment on above: Performed By: #### L 500.4050, L100.0100 #### [facility] [address] [place], [address] Carbon dioxide, total [Moles /volume] in Central venous bloodOrdered By: Isabella Justice on 05-01-2025 CO2 [Moles/Vol] 23.6 mmol/L 21.0-32.0 [facility] Chloride assayOrdered By: Sai Justice on 05-01-2025 Chloride [Moles/Vol] 103 mmol/L 98-108 [facility] Comprehensive Metabolic Prof ilon 05-01-2025 Albumin [Mass/Vol] 4.0 g/dL Normal 3.4-4.8 [facility] Comment on above: Performed By: #### L 500.4050, L100.0100 #### [facility] [address] [place], [address] Albumin/Globulin [Mass ratio] 1.5 {ratio} Normal 0.9-2.4 [facility] Comment on above: Performed By: #### L 500.4050, L100.0100 #### [facility] [address] [place], [address] ALK PHOS 63 U/L Normal 40-129 [facility] Comment on above: Performed By: #### L 500.4050, L100.0100 #### [facility] [address] [place], [address] ALT [Catalytic activity/Vol] 19 U/L Normal <=46 [facility] Comment on above: Performed By: #### L 500.4050, L100.0100 #### [facility] [address] [place], [address] AST [Catalytic activity/Vol] 27 U/L Normal <=37 [facility] Comment on above: Performed By: #### L 500.4050, L100.0100 #### [facility] [address] [place], [address] Bilirubin [Mass/Vol] 0.23 mg/dL Normal 0.00-1.30 [facility] Comment on above: Performed By: #### L 500.4050, L100.0100 #### [facility] [address] [place], [address] BUN/CRE 30.4 RATIO High 10-20 [facility] Comment on above: Performed By: #### L 500.4050, L100.0100 #### [facility] [address] [place], [address] Calcium [Mass/Vol] 9.6 mg/dL Normal 7.6-11.0 [facility] Comment on above: Performed By: #### L 500.4050, L100.0100 #### [facility] [address] [place], [address] Chloride [Moles/Vol] 103 mmol/L Normal 98-108 [facility] Comment on above: Performed By: #### L 500.4050, L100.0100 #### [facility] [address] [place], [address] CO2 [Moles/Vol] 23.6 mmol/L Normal 21.0-32.0 [facility] Comment on above: Performed By: #### L 500.4050, L100.0100 #### [facility] [address] [place], [address] Creatinine [Mass/Vol] 1.35 mg/dL High 0.70-1.20 [facility] Comment on above: Performed By: #### L 500.4050, L100.0100 #### [facility] [address] [place], [address] GAP 11 Normal 5-15 [facility] Comment on above: Performed By: #### L 500.4050, L100.0100 #### [facility] [address] [place], [address] GFR/1.73 sq M.predicted among non-blacks MDRD (S/P/Bld) [Vol rate/Area] 50 mL/min/{1.73_m2} Low >60 [facility] Comment on above: Result Comment: mL/m in/1.73m2 CKD-EPI Creatinine Equation (2020) Performed By: #### L 500.4050, L100.0100 #### [facility] [address] [place], [address] Globulin (S) [Mass/Vol] 2.7 g/dL Normal 2.2-4.2 [facility] Comment on above: Performed By: #### L 500.4050, L100.0100 #### [facility] [address] [place], [address] Glucose [Mass/Vol] 100 mg/dL High 70-99 [facility] Comment on above: Performed By: #### L 500.4050, L100.0100 #### [facility] [address] [place], [address] Potassium [Moles/Vol] 4.3 mmol/L Normal 3.3-5.1 [facility] Comment on above: Performed By: #### L 500.4050, L100.0100 #### [facility] [address] [place], [address] Sodium [Moles/Vol] 137 mmol/L Normal 133-145 [facility] Comment on above: Performed By: #### L 500.4050, L100.0100 #### [facility] [address] [place], [address] T PROT 6.7 g/dL Normal 5.9-8.4 [facility] Comment on above: Performed By: #### L 500.4050, L100.0100 #### [facility] [address] [place], [place], [address] Urea nitrogen [Mass/Vol] 41 mg/dL High 4-19 [facility] Comment on above: Performed By: #### L 500.4050, L100.0100 #### [facility] [address], [address] Eosinophil percentageOrdered By: Isabella Justice on 05-01-2025 Eosinophils/100 WBC (Bld) 3.6 % 0-5 [facility] Erythrocyte distribution wid th ratioOrdered By: Isabella Justice on 05-01-2025 Erythrocyte distribution width (RBC) [Ratio] 16.6 % High 11.6-14.6 [facility] Erythrocyte distribution wid th standard deviationOrdered By: Isabella Justice on 05-01-2025 Erythrocyte distribution width (RBC) [Ratio] 55.6 fl High 35.1-43.9 [facility] Glomerular filtration rate ( GFR) estimation/1.73 sq m using serum, plasma, or whole bOrdered By: Isabella Justcie on 05-01-2025 GFR/1.73 sq M.predicted among non-blacks MDRD (S/P/Bld) [Vol rate/Area] 50 mL/min/{1.73_m2} Low >60 [facility] Comment on above: mL/min/1.73m2 CKD-EP I Creatinine Equation (2020) Hematocrit Auto (Bld) [Volum e fraction]Ordered By: Isabella Justice on 05-01-2025 Hematocrit (Bld) [Volume fraction] 31.0 % Low 40-54 [facility] Hemoglobin measurementOrdere d By: Isabella Justice on 05-01-2025 Hemoglobin (Bld) [Mass/Vol] 9.5 g/dL Low 13.0-16.5 [facility] Immature granulocytes/100 WB C Auto (Bld)Ordered By: Isabella Justice on 05-01-2025 Immature granulocytes/100 WBC (Bld) 0.900 % 0.0-0.9 [facility] Comment on above: IG% - Immature Granu locytes (promyelocytes, myelocytes and metamyelocytes) > 1% indicates that a LEFT SHIFT is Present. Laboratory - Chemistry and C hemistry - challengeOrdered By: Isabella Justice on 05-01-2025 AST [Catalytic activity/Vol] 27 U/L <38 [facility] MCV (mean corpuscular volume ) determinationOrdered By: Isabella Justice on 05-01-2025 MCV (RBC) [Entitic vol] 91.4 fL 80-94 [facility] Mean corpuscular hemoglobin (MCH) determinationOrdered By: Isabella Justice on 05-01-2025 MCH (RBC) [Entitic mass] 28.0 pg 27.0-32.0 [facility] Mean corpuscular hemoglobin concentration (MCHC) determinationOrdered By: Isabella Justice on 05-01-2025 MCHC (RBC) [Mass/Vol] 30.6 g/dL Low 32-36 [facility] Mean platelet volume determi nationOrdered By: Isabella Justice on 05-01-2025 Platelet mean volume (Bld) [Entitic vol] 9.9 fL 6.2-12.0 [facility] Monocyte percentageOrdered B y: Isabella Justice on 05-01-2025 Monocytes/100 WBC (Bld) 14.8 % High 0-10 [facility] Neutrophil percentageOrdered By: Isabella Justice on 05-01-2025 Neutrophils/100 WBC (Bld) 66.7 % 47-70 [facility] Nucleated red blood cell per centageOrdered By: Isabella Justice on 05-01-2025 Nucleated RBC/100 WBC (Bld) [Ratio] 0 % 0-5 [facility] Platelet countOrdered By: Sai Justice on 05-01-2025 Platelets (Bld) [#/Vol] 129 10*3/uL Low 150-450 [facility] Potassium measurement (mass/ volume)Ordered By: Isabella Justice on 05-01-2025 Potassium (Unsp spec) [Mass/Vol] 4.3 mmol/L 3.3-5.1 [facility] RBC Auto (Bld) [#/Vol]Ordere d By: Isabella Justice on 05-01-2025 RBC (Bld) [#/Vol] 3.39 10*6/uL Low 4.6-6.2 [facility] Serum creatinine measurement (mass/volume)Ordered By: Isabella Justice on 05-01-2025 Creatinine [Mass/Vol] 1.35 mg/dL High 0.70-1.20 [facility] Serum globulin measurementOr dered By: Isabella Justice on 05-01-2025 Globulin (S) [Mass/Vol] 2.7 g/dL 2.2-4.2 [facility] Serum glucose measurement (m ass/volume)Ordered By: Isabella Justice on 05-01-2025 Glucose [Mass/Vol] 100 mg/dL High 70-99 [facility] Serum or plasma alanine lee otransferase (ALT) measurementOrdered By: Isabella Jusitce on 05-01-2025 ALT [Catalytic activity/Vol] 19 U/L <47 [facility] Serum or plasma albumin elian urement (mass/volume)Ordered By: Isabella Justice on 05-01-2025 Albumin [Mass/Vol] 4.0 g/dL 3.4-4.8 [facility] Serum or plasma albumin/glob ulin mass ratioOrdered By: Isabella Justice on 05-01-2025 Albumin/Globulin [Mass ratio] 1.5 {ratio} 0.9-2.4 [facility] Serum or plasma alkaline anali sphatase measurementOrdered By: Isabella Justice on 05-01-2025 ALP [Catalytic activity/Vol] 63 U/L 40-129 [facility] Serum or plasma calcium elian urement (mass/volume)Ordered By: Isabella Justice on 05-01-2025 Calcium [Mass/Vol] 9.6 mg/dL 7.6-11.0 [facility] Serum or plasma urea nitroge n measurement (mass/volume)Ordered By: Isabella Justice on 05-01-2025 Urea nitrogen [Mass/Vol] 41 mg/dL High 4-19 [facility] Sodium levelOrdered By: Olivia Justice on 05-01-2025 Sodium [Moles/Vol] 137 mmol/L 133-145 [facility] Total proteinOrdered By: Usama Justice on 05-01-2025 Protein [Mass/Vol] 6.7 g/dL 5.9-8.4 [facility] White blood cell (WBC) count Ordered By: Isabella Justice on 05-01-2025 WBC (Bld) [#/Vol] 3.4 10*3/uL Low 4.4-11.0 [facility] CBC W Auto Differential pane l (Bld)on 04-17-2025 Basophils (Bld) [#/Vol] 10*3/uL Normal <0.11 [facility] Comment on above: Order Comment: Speci men Type: BLOOD SPECIMENOrdering Facility: [facility] Address: [address] [place] [address] Performed By: #### 5 7021-8 ####[facility] ROOMWHUTCHINSON HEALTH HOSPITALA [id number] [place] [address] [place] Basophils/100 WBC (Bld) 0.5 % Normal [facility] Comment on above: Order Comment: Speci men Type: BLOOD SPECIMENOrdering Facility: [facility] Address: [address] [place] [address] Performed By: #### 5 7021-8 ####[facility] [id number] [place] [address] [place] Differential cell count method Nom (Bld) Auto Normal [facility] Comment on above: Order Comment: Speci men Type: BLOOD SPECIMENOrdering Facility: [facility] Address: [address] [place] [address] Performed By: #### 5 7021-8 ####[facility] MILLWNCLIA [id number] [place] [address] [place] Eosinophils (Bld) [#/Vol] 0.11 10*3/uL Normal <0.46 [facility] Comment on above: Order Comment: Speci men Type: BLOOD SPECIMENOrdering Facility: [facility] Address: [address] [place] [address] Performed By: #### 5 7021-8 ####[facility] ZACH [id number] [place] [address] [place] Eosinophils/100 WBC (Bld) 2.9 % Normal [facility] Comment on above: Order Comment: Speci men Type: BLOOD SPECIMENOrdering Facility: [facility] Address: [address] [place] [address] Performed By: #### 5 7021-8 ####[facility] AMBERDANBURYNCJOHN [id number] [place] [address] [place] Erythrocyte distribution width (RBC) [Ratio] 16.3 % High 11.5-15.0 [facility] Comment on above: Order Comment: Speci men Type: BLOOD SPECIMENOrdering Facility: [facility] Address: [address] [place] [address] Performed By: #### 5 7021-8 ####[facility] AMBERDANBURYNCJOHN [id number] [place] [address] [place] Hematocrit (Bld) [Volume fraction] 30.4 % Low 39.0-51.0 [facility] Comment on above: Order Comment: Speci men Type: BLOOD SPECIMENOrdering Facility: [facility] Address: [address] [place] [address] Performed By: #### 5 7021-8 ####[facility] RIVEREDGARLIA [id number] [place] [address] [place] Hemoglobin (Bld) [Mass/Vol] 9.6 g/dL Low 13.0-17.0 [facility] Comment on above: Order Comment: Speci men Type: BLOOD SPECIMENOrdering Facility: [facility] Address: [address] [place] [address] Performed By: #### 5 7021-8 ####[facility] MILLWNCLIA [id number] [place] [address] [place] Immature granulocytes (Bld) [#/Vol] 10*3/uL Normal <0.10 [facility] Comment on above: Order Comment: Speci men Type: BLOOD SPECIMENOrdering Facility: [facility] Address: [address] [place] [address] Performed By: #### 5 7021-8 ####[facility] H[facility]ITALLIA [id number] [place] [address] [place] Immature granulocytes/100 WBC (Bld) 0.5 % Normal [facility] Comment on above: Order Comment: Speci men Type: BLOOD SPECIMENOrdering Facility: [facility] Address: [address] [place] [address] Performed By: #### 5 7021-8 ####[facility] HOSPITALLIA [id number] [place] [address] [place] Lymphocytes (Bld) [#/Vol] 0.43 10*3/uL Low 1.00-4.00 [facility] Comment on above: Order Comment: Speci men Type: BLOOD SPECIMENOrdering Facility: [facility] Address: [address] [place] [address] Performed By: #### 5 7021-8 ####[facility]IT[facility] [id number] [place] [address] [place] Lymphocytes/100 WBC (Bld) 11.4 % Normal [facility] Comment on above: Order Comment: Speci men Type: BLOOD SPECIMENOrdering Facility: [facility] Address: [address] [place] [address] Performed By: #### 5 7021-8 ####[facility] RIVERNCLIA [id number] [place] [address] [place] MCH (RBC) [Entitic mass] 28.6 pg Normal 26.0-34.0 [facility] Comment on above: Order Comment: Speci men Type: BLOOD SPECIMENOrdering Facility: [facility] Address: [address] [place] [address] Performed By: #### 5 7021-8 ####[facility] RIVERNCCOOKIE [id number] [place] [address] [place] MCHC (RBC) [Mass/Vol] 31.6 g/dL Normal 30.5-36.0 [facility] Comment on above: Order Comment: Speci men Type: BLOOD SPECIMENOrdering Facility: [facility] Address: [address] [place] [address] Performed By: #### 5 7021-8 ####[facility] [id number] [place] [address] [place] MCV (RBC) [Entitic vol] 90.5 fL Normal 80.0-100.0 [facility] Comment on above: Order Comment: Speci men Type: BLOOD SPECIMENOrdering Facility: [facility] Address: [address] [place] [address] Performed By: #### 5 7021-8 ####[facility] [id number] [place] [address] [place] Monocytes (Bld) [#/Vol] 0.46 10*3/uL Normal <0.87 [facility] Comment on above: Order Comment: Speci men Type: BLOOD SPECIMENOrdering Facility: [facility] Address: [address] [place] [address] Performed By: #### 5 7021-8 ####[facility] RIVERNCLIA [id number] [place] [address] [place] Monocytes/100 WBC (Bld) 12.2 % Normal [facility] Comment on above: Order Comment: Speci men Type: BLOOD SPECIMENOrdering Facility: [facility] Address: [address] [place] [address] Performed By: #### 5 7021-8 ####[facility] AMBERROSIELIA [id number] [place] [address] [place] Neutrophils (Bld) [#/Vol] 2.72 10*3/uL Normal 1.45-7.50 [facility] Comment on above: Order Comment: Speci men Type: BLOOD SPECIMENOrdering Facility: [facility] Address: [address] [place] [address] Performed By: #### 5 7021-8 ####[facility]ITALLIA [id number] [place] [address] [place] Neutrophils/100 WBC (Bld) 72.5 % Normal [facility] Comment on above: Order Comment: Speci men Type: BLOOD SPECIMENOrdering Facility: [facility] Address: [address] [place] [address] Performed By: #### 5 7021-8 ####[facility]ALL[facility] [id number] [place] [address] [place] Nucleated RBC (Bld) [#/Vol] 10*3/uL Normal <0.01 [facility] Comment on above: Order Comment: Speci men Type: BLOOD SPECIMENOrdering Facility: [facility] Address: [address] [place] [address] Performed By: #### 5 7021-8 ####[facility] RIVERNCLIA [id number] [place] [address] [place] Nucleated RBC/100 WBC (Bld) [Ratio] 0.0 /100 WBC Normal [facility] Comment on above: Order Comment: Speci men Type: BLOOD SPECIMENOrdering Facility: [facility] Address: [address] [place] [address] Performed By: #### 5 7021-8 ####[facility] AMBERWNCLIA [id number] [place] [address] [place] Platelet mean volume (Bld) [Entitic vol] 9.4 fL Normal 9.0-12.7 [facility] Comment on above: Order Comment: Speci men Type: BLOOD SPECIMENOrdering Facility: [facility] Address: [address] [place] [address] Performed By: #### 5 7021-8 ####[facility]PITALLIA [id number] [place] [address] [place] Platelets (Bld) [#/Vol] 136 10*3/uL Low 150-400 [facility] Comment on above: Order Comment: Speci men Type: BLOOD SPECIMENOrdering Facility: [facility] Address: [address] [place] [address] Performed By: #### 5 7021-8 ####[facility]ITALL[facility] [id number] [place] [address] [place] RBC (Bld) [#/Vol] 3.36 10*6/uL Low 4.20-6.00 [facility] Comment on above: Order Comment: Speci men Type: BLOOD SPECIMENOrdering Facility: [facility] Address: [address] [place] [address] Performed By: #### 5 7021-8 ####[facility]ITALLIA [id number] [place] [address] [place] WBC (Bld) [#/Vol] 3.76 10*3/uL Normal 3.70-11.00 [facility] Comment on above: Order Comment: Speci men Type: BLOOD SPECIMENOrdering Facility: [facility] Address: [address] [place] [address] Performed By: #### 5 7021-8 ####[facility]ITALLIA [id number] [place] [address] [place] CNOVSPon 04-17-2025 CNOVSP Visit (SP) Office (HEMAWS) -------- JAYLEN GALAVIZ ([id number]) 1935 M Date Time Provider Department 04/17/25 [...] Had RT to prostate 2022 at [facility]. WBC 2.7-3.1 in September, hgb 9.5 [...] Benign hypertension Bilateral leg pain 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 Centrilobular emphysema (HCC) CKD (chronic kidney [...] tablet Take (more content not included)... Normal [facility] 03-06-2025 [facility] Telephone (CAHRISMA) -------- JAYLEN GALAVIZ ([id number]) 1935 M Date Time Provider Department 03/06/25 [...] Frannie at Dr. Adela Fleming office at [facility]. She is aware of conversation with [...] disease) stage 3, GFR 30-59*08/26/2021 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 [I25.10] 08/26/2021 Benign hypertension [I10] 08/26/[address] of the chest [R93.89] 08/26/2021 Abnormal chest x-ray [R93.89] 08/26/2021 Type 2 diabetes mellitus without complication (*08/26/2021 Anemia [D64.9] 01/04/2025 Encounter Status:Closed by XAVI JACQUES on 03/06/[address] [facility] [address] HEAD OR BRAIN W/O CONTRAS Ton [...] 10:19:54 AM Ordering Provider: JAKI FLEMING Normal [facility] Absolute lymphocyte countOrd ered By: Isabella Justice on 02-05-2025 Lymphocytes Auto (Unsp spec) [#/Vol] 0.42 10*3/uL Low 0.83-4.51 [facility] Absolute neutrophil countOrd ered By: Isabella Justice on 02-05-2025 Neutrophils (Bld) [#/Vol] 3.2 10*3/uL 2.0-7.7 [facility] Anion gap in Serum or Plasma Ordered By: Isabella Justice on 02-05-2025 Anion gap [Moles/Vol] 11 mmol/L 5-15 [facility] Automated lymphocyte count a s percentage of total leukocytesOrdered By: Isabella Justice on 02-05-2025 Lymphocytes/100 WBC Auto (Unsp spec) 9.7 % Low 19-41 [facility] BUN/creatinine ratioOrdered By: [facility] Reshma on 02-05-2025 Urea nitrogen/Creatinine [Mass ratio] 30.1 mg/mg High 10-20 [facility] Basophil percentageOrdered B y: Isabella Justice on 02-05-2025 Basophils/100 WBC (Bld) 0.7 % 0-1 [facility] Bilirubin, totalOrdered By: Isabella Justice on 02-05-2025 Bilirubin [Mass/Vol] 0.20 mg/dL 0.00-1.30 [facility] CBC W/Diff, Automatedon -0 Absolute Lymph 0.42 X10 3/uL Low 0.83-4.51 [facility] Comment on above: Performed By: #### L 500.4050, L100.0100 #### [facility] [address] [place], [address] Absolute Neut 3.2 X10 3/uL Normal 2.0-7.7 [facility] Comment on above: Performed By: #### L 500.4050, L100.0100 #### [facility] [address] [place], [address] Basophils/100 WBC (Bld) 0.7 % Normal 0-1 [facility] Comment on above: Performed By: #### L 500.4050, L100.0100 #### [facility] [address] [place], [address] Eosinophils/100 WBC (Bld) 2.5 % Normal 0-5 [facility] Comment on above: Performed By: #### L 500.4050, L100.0100 #### [facility] [address] [place], [id number] Erythrocyte distribution width (RBC) [Ratio] 17.7 % High 11.6-14.6 [facility] Comment on above: Performed By: #### L 500.4050, L100.0100 #### [facility] [address] [place], [address] Hematocrit (Bld) [Volume fraction] 32.6 % Low 40-54 [facility] Comment on above: Performed By: #### L 500.4050, L100.0100 #### [facility] [address] [place], [address] Hemoglobin (Bld) [Mass/Vol] 10.2 g/dL Low 13.0-16.5 [facility] Comment on above: Performed By: #### L 500.4050, L100.0100 #### [facility] [address] [place], [address] IG% 0.500 Normal 0.0-0.9 [facility] Comment on above: Result Comment: IG% - Immature Granulocytes (promyelocytes, myelocytes and metamyelocytes) > 1% indicates that a LEFT SHIFT is Present. Performed By: #### L 500.4050, L100.0100 #### [facility] [address] [place], [address] Lymphocytes/100 WBC (Bld) 9.7 % Low 19-41 [facility] Comment on above: Performed By: #### L 500.4050, L100.0100 #### [facility] [address] [place], [address] MCH (RBC) [Entitic mass] 28.2 pg Normal 27.0-32.0 [facility] Comment on above: Performed By: #### L 500.4050, L100.0100 #### [facility] [address] [place], [address] MCHC (RBC) [Mass/Vol] 31.3 g/dL Low 32-36 [facility] Comment on above: Performed By: #### L 500.4050, L100.0100 #### [facility] [address] [place], [address] MCV (RBC) [Entitic vol] 90.1 fL Normal 80-94 [facility] Comment on above: Performed By: #### L 500.4050, L100.0100 #### [facility] [address] [place], [address] Monocytes/100 WBC (Bld) 12.2 % High 0-10 [facility] Comment on above: Performed By: #### L 500.4050, L100.0100 #### [facility] [address] [place], [address] Neutrophils/100 WBC (Bld) 74.4 % High 47-70 [facility] Comment on above: Performed By: #### L 500.4050, L100.0100 #### [facility] [address] [place], [address] Nucleated RBC (Bld) [#/Vol] 0 10*3/uL Normal 0-5 [facility] Comment on above: Performed By: #### L 500.4050, L100.0100 #### [facility] [address] [place], [address] Platelet mean volume (Bld) [Entitic vol] 9.2 fL Normal 6.2-12.0 [facility] Comment on above: Performed By: #### L 500.4050, L100.0100 #### [facility] [address] [place], [address] Platelets (Bld) [#/Vol] 166 10*3/uL Normal 150-450 [facility] Comment on above: Performed By: #### L 500.4050, L100.0100 #### [facility] [address] [place], [id number] RBC (Bld) [#/Vol] 3.62 10*6/uL Low 4.6-6.2 [facility] Comment on above: Performed By: #### L 500.4050, L100.0100 #### [facility] [address] [place], [id number] RDW SD 58.5 fl High 35.1-43.9 [facility] Comment on above: Performed By: #### L 500.4050, L100.0100 #### [facility] [address] [place], [address] WBC (Bld) [#/Vol] 4.3 10*3/uL Low 4.4-11.0 [facility] Comment on above: Performed By: #### L 500.4050, L100.0100 #### [facility] [address] [place], [address] Carbon dioxide, total [Moles /volume] in Central venous bloodOrdered By: Isabella Justice on 02-05-2025 CO2 [Moles/Vol] 22.4 mmol/L 21.0-32.0 [facility] Chloride assayOrdered By: Sai Justice on 02-05-2025 Chloride [Moles/Vol] 103 mmol/L 98-108 [facility] Comprehensive Metabolic Prof ilon 02-05-2025 Albumin [Mass/Vol] 4.1 g/dL Normal 3.4-4.8 [facility] Comment on above: Performed By: #### L 500.4050, L100.0100 #### [facility] [address] [place], [address] Albumin/Globulin [Mass ratio] 1.3 {ratio} Normal 0.9-2.4 [facility] Comment on above: Performed By: #### L 500.4050, L100.0100 #### [facility] [address] [place], [address] ALK PHOS 59 U/L Normal 40-129 [facility] Comment on above: Performed By: #### L 500.4050, L100.0100 #### [facility] [address] [place], [address] ALT [Catalytic activity/Vol] 22 U/L Normal <=46 [facility] Comment on above: Performed By: #### L 500.4050, L100.0100 #### [facility] [address] [place], [address] AST [Catalytic activity/Vol] 32 U/L Normal <=37 [facility] Comment on above: Performed By: #### L 500.4050, L100.0100 #### [facility] [address] [place], [address] Bilirubin [Mass/Vol] 0.20 mg/dL Normal 0.00-1.30 [facility] Comment on above: Performed By: #### L 500.4050, L100.0100 #### [facility] [address] [place], [address] BUN/CRE 30.1 RATIO High 10-20 [facility] Comment on above: Performed By: #### L 500.4050, L100.0100 #### [facility] [address] [place], [address] Calcium [Mass/Vol] 10.6 mg/dL Normal 7.6-11.0 [facility] Comment on above: Performed By: #### L 500.4050, L100.0100 #### [facility] [address] [place], [id number] Chloride [Moles/Vol] 103 mmol/L Normal 98-108 [facility] Comment on above: Performed By: #### L 500.4050, L100.0100 #### [facility] [address] [place], [address] CO2 [Moles/Vol] 22.4 mmol/L Normal 21.0-32.0 [facility] Comment on above: Performed By: #### L 500.4050, L100.0100 #### [facility] [address] [place], [address] Creatinine [Mass/Vol] 1.47 mg/dL High 0.70-1.20 [facility] Comment on above: Performed By: #### L 500.4050, L100.0100 #### [facility] [address] [place], [address] GAP 11 Normal 5-15 [facility] Comment on above: Performed By: #### L 500.4050, L100.0100 #### [facility] [address] [place], [address] GFR/1.73 sq M.predicted among non-blacks MDRD (S/P/Bld) [Vol rate/Area] 46 mL/min/{1.73_m2} Low >60 [facility] Comment on above: Result Comment: mL/m in/1.73m2 CKD-EPI Creatinine Equation (2020) Performed By: #### L 500.4050, L100.0100 #### [facility] [address] [place], [address] Globulin (S) [Mass/Vol] 3.2 g/dL Normal 2.2-4.2 [facility] Comment on above: Performed By: #### L 500.4050, L100.0100 #### [facility] [address] [place], [address] Glucose [Mass/Vol] 89 mg/dL Normal 70-99 [facility] Comment on above: Performed By: #### L 500.4050, L100.0100 #### [facility] [address] [place], [address] Potassium [Moles/Vol] 4.9 mmol/L Normal 3.3-5.1 [facility] Comment on above: Performed By: #### L 500.4050, L100.0100 #### [facility] [address] [place], [address] Sodium [Moles/Vol] 136 mmol/L Normal 133-145 [facility] Comment on above: Performed By: #### L 500.4050, L100.0100 #### [facility] [address] [place], [address] T PROT 7.3 g/dL Normal 5.9-8.4 [facility] Comment on above: Performed By: #### L 500.4050, L100.0100 #### [facility] [address] [place], [address] Urea nitrogen [Mass/Vol] 44 mg/dL High 4-19 [facility] Comment on above: Performed By: #### L 500.4050, L100.0100 #### [facility] [address] [place], [address] Eosinophil percentageOrdered By: Isabella Justice on 02-05-2025 Eosinophils/100 WBC (Bld) 2.5 % 0-5 [facility] Erythrocyte distribution wid th ratioOrdered By: Isabella Justice on 02-05-2025 Erythrocyte distribution width (RBC) [Ratio] 17.7 % High 11.6-14.6 [facility] Erythrocyte distribution wid th standard deviationOrdered By: Isabella Justice on 02-05-2025 Erythrocyte distribution width (RBC) [Ratio] 58.5 fl High 35.1-43.9 [facility] Glomerular filtration rate ( GFR) estimation/1.73 sq m using serum, plasma, or whole bOrdered By: Isabella Justice on 02-05-2025 GFR/1.73 sq M.predicted among non-blacks MDRD (S/P/Bld) [Vol rate/Area] 46 mL/min/{1.73_m2} Low >60 [facility] Comment on above: mL/min/1.73m2 CKD-EP I Creatinine Equation (2020) Hematocrit Auto (Bld) [Volum e fraction]Ordered By: Isabella Justice on 02-05-2025 Hematocrit (Bld) [Volume fraction] 32.6 % Low 40-54 [facility] Hemoglobin measurementOrdere d By: Isabella Justice on 02-05-2025 Hemoglobin (Bld) [Mass/Vol] 10.2 g/dL Low 13.0-16.5 [facility] Immature granulocytes/100 WB C Auto (Bld)Ordered By: Isabella Justice on 02-05-2025 Immature granulocytes/100 WBC (Bld) 0.500 % 0.0-0.9 [facility] Comment on above: IG% - Immature Granu locytes (promyelocytes, myelocytes and metamyelocytes) > 1% indicates that a LEFT SHIFT is Present. Laboratory - Chemistry and C hemistry - challengeOrdered By: Isabella Justice on 02-05-2025 AST [Catalytic activity/Vol] 32 U/L <38 [facility] MCV (mean corpuscular volume ) determinationOrdered By: Isabella Justice on 02-05-2025 MCV (RBC) [Entitic vol] 90.1 fL 80-94 [facility] Mean corpuscular hemoglobin (MCH) determinationOrdered By: Isabella Justice on 02-05-2025 MCH (RBC) [Entitic mass] 28.2 pg 27.0-32.0 [facility] Mean corpuscular hemoglobin concentration (MCHC) determinationOrdered By: Isabella Justice on 02-05-2025 MCHC (RBC) [Mass/Vol] 31.3 g/dL Low 32-36 [facility] Mean platelet volume determi nationOrdered By: Isabella Justice on 02-05-2025 Platelet mean volume (Bld) [Entitic vol] 9.2 fL 6.2-12.0 [facility] Monocyte percentageOrdered B y: Isabella Justice on 02-05-2025 Monocytes/100 WBC (Bld) 12.2 % High 0-10 [facility] Neutrophil percentageOrdered By: Isabella Justice on 02-05-2025 Neutrophils/100 WBC (Bld) 74.4 % High 47-70 [facility] Nucleated red blood cell per centageOrdered By: Isabella Justice on 02-05-2025 Nucleated RBC/100 WBC (Bld) [Ratio] 0 % 0-5 [facility] Platelet countOrdered By: Sai Justice on 02-05-2025 Platelets (Bld) [#/Vol] 166 10*3/uL 150-450 [facility] Potassium measurement (mass/ volume)Ordered By: Isabella Justice on 02-05-2025 Potassium (Unsp spec) [Mass/Vol] 4.9 mmol/L 3.3-5.1 [facility] RBC Auto (Bld) [#/Vol]Ordere d By: Isabella Justice on 02-05-2025 RBC (Bld) [#/Vol] 3.62 10*6/uL Low 4.6-6.2 [facility] Serum creatinine measurement (mass/volume)Ordered By: Isabella Justice on 02-05-2025 Creatinine [Mass/Vol] 1.47 mg/dL High 0.70-1.20 [facility] Serum globulin measurementOr dered By: Isabella Justice on 02-05-2025 Globulin (S) [Mass/Vol] 3.2 g/dL 2.2-4.2 [facility] Serum glucose measurement (m ass/volume)Ordered By: Isabella Justice on 02-05-2025 Glucose [Mass/Vol] 89 mg/dL 70-99 [facility] Serum or plasma alanine lee otransferase (ALT) measurementOrdered By: Isabella Justice on 02-05-2025 ALT [Catalytic activity/Vol] 22 U/L <47 [facility] Serum or plasma albumin elian urement (mass/volume)Ordered By: Isabella Justice on 02-05-2025 Albumin [Mass/Vol] 4.1 g/dL 3.4-4.8 [facility] Serum or plasma albumin/glob ulin mass ratioOrdered By: Isabella Justice on 02-05-2025 Albumin/Globulin [Mass ratio] 1.3 {ratio} 0.9-2.4 [facility] Serum or plasma alkaline anali sphatase measurementOrdered By: Isabella Justice on 02-05-2025 ALP [Catalytic activity/Vol] 59 U/L 40-129 [facility] Serum or plasma calcium elian urement (mass/volume)Ordered By: Isabella Justice on 02-05-2025 Calcium [Mass/Vol] 10.6 mg/dL 7.6-11.0 [facility] Serum or plasma urea nitroge n measurement (mass/volume)Ordered By: Isabella Justice on 02-05-2025 Urea nitrogen [Mass/Vol] 44 mg/dL High 4-19 [facility] Sodium levelOrdered By: Olivia Justice on 02-05-2025 Sodium [Moles/Vol] 136 mmol/L 133-145 [facility] Total proteinOrdered By: Usama Justice on 02-05-2025 Protein [Mass/Vol] 7.3 g/dL 5.9-8.4 [facility] White blood cell (WBC) count Ordered By: Isabella Justice on 02-05-2025 WBC (Bld) [#/Vol] 4.3 10*3/uL Low 4.4-11.0 [facility] LABORATORYOrdered By: SYSTEM SYSTEM on 01-14-2025 Prostate specific Ag [Mass/Vol] ng/mL Normal 0.02 - 4.00 ng/mL ADM Comment on above: Interpretive Data: P atient results determined by assays using different manufacturers for methods may not be comparable. PSAon 01-14-2025 Prostate Specific Antigen <0.04 Normal 0.02-4.00 [facility] Comment on above: Result Comment: Barbara ent results determined by assays using different manufacturers for methods may not be comparable. Performed By: #### A DIFF, ANEU, CMP, GFR, CBC #### [id number] [place], [place] [address] CBC W Auto Differential pane l (Bld)on 01-04-2025 Basophils (Bld) [#/Vol] 0.03 10*3/uL [facility] Basophils/100 WBC (Bld) 0.7 % [facility] Differential cell count method Nom (Bld) Auto [facility] Eosinophils (Bld) [#/Vol] 0.26 10*3/uL [facility] Eosinophils/100 WBC (Bld) 6.3 % [facility] Erythrocyte distribution width (RBC) [Ratio] 18 % High 11.5 - 15.0 % [facility] Hematocrit (Bld) [Volume fraction] 31.6 % Low 39.0 - 51.0 % [facility] Hemoglobin (Bld) [Mass/Vol] 9.9 g/dL Low 13.0 - 17.0 g/dL [facility] Immature granulocytes (Bld) [#/Vol] [facility] Immature granulocytes/100 WBC (Bld) 0.5 % [facility] Interpretation and review of laboratory results Abnormal [facility] Lymphocytes (Bld) [#/Vol] 0.41 10*3/uL Low [facility] Lymphocytes/100 WBC (Bld) 9.9 % [facility] MCH (RBC) [Entitic mass] 28.4 pg 26.0 - 34.0 pg [facility] MCHC (RBC) [Mass/Vol] 31.3 g/dL 30.5 - 36.0 g/dL [facility] MCV (RBC) [Entitic vol] 90.5 fL 80.0 - 100.0 fL [facility] Monocytes (Bld) [#/Vol] 0.73 10*3/uL [facility] Monocytes/100 WBC (Bld) 17.6 % [facility] Neutrophils (Bld) [#/Vol] 2.69 10*3/uL [facility] Neutrophils/100 WBC (Bld) 65 % [facility] Nucleated RBC (Bld) [#/Vol] [facility] Nucleated RBC/100 WBC (Bld) [Ratio] 0 % /100 WBC [facility] Platelet mean volume (Bld) [Entitic vol] 8.8 fL Low 9.0 - 12.7 fL [facility] Platelets (Bld) [#/Vol] 141 10*3/uL Low [facility] RBC (Bld) [#/Vol] 3.49 10*6/uL Low 4.20 - 6.0 0 m/uL [facility] WBC (Bld) [#/Vol] 4.14 10*3/uL [facility] Basophils (Bld) [#/Vol] 0.03 10*3/uL Normal <0.11 [facility] Comment on above: Order Comment: Speci men Type: BLOOD SPECIMENOrdering Facility: [facility] Address: [address] [place] [address] Performed By: #### 5 7021-8 ####[facility] MILLTOWNCLIA [id number] [place] [address] [place] Basophils/100 WBC (Bld) 0.7 % Normal [facility] Comment on above: Order Comment: Speci men Type: BLOOD SPECIMENOrdering Facility: [facility] Address: [address] [place] [address] Performed By: #### 5 7021-8 ####[facility] RIVERNCLIA [id number] [place] [address] [place] Differential cell count method Nom (Bld) Auto Normal [facility] Comment on above: Order Comment: Speci men Type: BLOOD SPECIMENOrdering Facility: [facility] Address: [address] [place] [address] Performed By: #### 5 7021-8 ####[facility] MILLTOWNCLIA [id number] [place] [address] [place] Eosinophils (Bld) [#/Vol] 0.26 10*3/uL Normal <0.46 [facility] Comment on above: Order Comment: Speci men Type: BLOOD SPECIMENOrdering Facility: [facility] Address: [address] [place] [address] Performed By: #### 5 7021-8 ####[facility] RIVERNCLIA [id number] [place] [address] [place] Eosinophils/100 WBC (Bld) 6.3 % Normal [facility] Comment on above: Order Comment: Speci men Type: BLOOD SPECIMENOrdering Facility: [facility] Address: [address] [place] [address] Performed By: #### 5 7021-8 ####[facility] RIVERROJAS [id number] [place] [address] [place] Erythrocyte distribution width (RBC) [Ratio] 18.0 % High 11.5-15.0 [facility] Comment on above: Order Comment: Speci men Type: BLOOD SPECIMENOrdering Facility: [facility] Address: [address] [place] [address] Performed By: #### 5 7021-8 ####[facility] [id number] [place] [address] [place] Hematocrit (Bld) [Volume fraction] 31.6 % Low 39.0-51.0 [facility] Comment on above: Order Comment: Speci men Type: BLOOD SPECIMENOrdering Facility: [facility] Address: [address] [place] [address] Performed By: #### 5 7021-8 ####[facility] RIVEREDGARLIA [id number] [place] [address] [place] Hemoglobin (Bld) [Mass/Vol] 9.9 g/dL Low 13.0-17.0 [facility] Comment on above: Order Comment: Speci men Type: BLOOD SPECIMENOrdering Facility: [facility] Address: [address] [place] [address] Performed By: #### 5 7021-8 ####[facility] RIVERNCLIA [id number] [place] [address] [place] Immature granulocytes (Bld) [#/Vol] 10*3/uL Normal <0.10 [facility] Comment on above: Order Comment: Speci men Type: BLOOD SPECIMENOrdering Facility: [facility] Address: [address] [place] [address] Performed By: #### 5 7021-8 ####[facility] [id number] [place] [address] [place] Immature granulocytes/100 WBC (Bld) 0.5 % Normal [facility] Comment on above: Order Comment: Speci men Type: BLOOD SPECIMENOrdering Facility: [facility] Address: [address] [place] [address] Performed By: #### 5 7021-8 ####[facility] [id number] [place] [address] [place] Lymphocytes (Bld) [#/Vol] 0.41 10*3/uL Low 1.00-4.00 [facility] Comment on above: Order Comment: Speci men Type: BLOOD SPECIMENOrdering Facility: [facility] Address: [address] [place] [address] Performed By: #### 5 7021-8 ####[facility] [id number] [place] [address] [place] Lymphocytes/100 WBC (Bld) 9.9 % Normal [facility] Comment on above: Order Comment: Speci men Type: BLOOD SPECIMENOrdering Facility: [facility] Address: [address] [place] [address] Performed By: #### 5 7021-8 ####[facility] [id number] [place] [address] [place] MCH (RBC) [Entitic mass] 28.4 pg Normal 26.0-34.0 [facility] Comment on above: Order Comment: Speci men Type: BLOOD SPECIMENOrdering Facility: [facility] Address: [address] [place] [address] Performed By: #### 5 7021-8 ####[facility] AMBERLaurenNCLIA [id number] [place] [address] [place] MCHC (RBC) [Mass/Vol] 31.3 g/dL Normal 30.5-36.0 [facility] Comment on above: Order Comment: Speci men Type: BLOOD SPECIMENOrdering Facility: [facility] Address: [address] [place] [address] Performed By: #### 5 7021-8 ####[facility] RIVERNCA [id number] [place] [address] [place] MCV (RBC) [Entitic vol] 90.5 fL Normal 80.0-100.0 [facility] Comment on above: Order Comment: Speci men Type: BLOOD SPECIMENOrdering Facility: [facility] Address: [address] [place] [address] Performed By: #### 5 7021-8 ####[facility] [id number] [place] [address] [place] Monocytes (Bld) [#/Vol] 0.73 10*3/uL Normal <0.87 [facility] Comment on above: Order Comment: Speci men Type: BLOOD SPECIMENOrdering Facility: [facility] Address: [address] [place] [address] Performed By: #### 5 7021-8 ####[facility]PITALLIA [id number] [place] [address] [place] Monocytes/100 WBC (Bld) 17.6 % Normal [facility] Comment on above: Order Comment: Speci men Type: BLOOD SPECIMENOrdering Facility: [facility] Address: [address] [place] [address] Performed By: #### 5 7021-8 ####[facility] [id number] [place] [address] [place] Neutrophils (Bld) [#/Vol] 2.69 10*3/uL Normal 1.45-7.50 [facility] Comment on above: Order Comment: Speci men Type: BLOOD SPECIMENOrdering Facility: [facility] Address: [address] [place] [address] Performed By: #### 5 7021-8 ####[facility] [id number] [place] [address] [place] Neutrophils/100 WBC (Bld) 65.0 % Normal [facility] Comment on above: Order Comment: Speci men Type: BLOOD SPECIMENOrdering Facility: [facility] Address: [address] [place] [address] Performed By: #### 5 7021-8 ####[facility] [id number] [place] [address] [place] Nucleated RBC (Bld) [#/Vol] 10*3/uL Normal <0.01 [facility] Comment on above: Order Comment: Speci men Type: BLOOD SPECIMENOrdering Facility: [facility] Address: [address] [place] [address] Performed By: #### 5 7021-8 ####[facility] [id number] [place] [address] [place] Nucleated RBC/100 WBC (Bld) [Ratio] 0.0 /100 WBC Normal [facility] Comment on above: Order Comment: Speci men Type: BLOOD SPECIMENOrdering Facility: [facility] Address: [address] [place] [address] Performed By: #### 5 7021-8 ####[facility]IVERNCLI [id number] [place] [address] [place] Platelet mean volume (Bld) [Entitic vol] 8.8 fL Low 9.0-12.7 [facility] Comment on above: Order Comment: Speci men Type: BLOOD SPECIMENOrdering Facility: [facility] Address: [address] [place] [address] Performed By: #### 5 7021-8 ####[facility] RIVERNCCOOKIEA [id number] [place] [address] [place] Platelets (Bld) [#/Vol] 141 10*3/uL Low 150-400 [facility] Comment on above: Order Comment: Speci men Type: BLOOD SPECIMENOrdering Facility: [facility] Address: [address] [place] [address] Performed By: #### 5 7021-8 ####[facility]IVERNCA [id number] [place] [address] [place] RBC (Bld) [#/Vol] 3.49 10*6/uL Low 4.20-6.00 [facility] Comment on above: Order Comment: Speci men Type: BLOOD SPECIMENOrdering Facility: [facility] Address: [address] [place] [address] Performed By: #### 5 7021-8 ####[facility] RIVERNCA [id number] [place] [address] [place] WBC (Bld) [#/Vol] 4.14 10*3/uL Normal 3.70-11.00 [facility] Comment on above: Order Comment: Speci men Type: BLOOD SPECIMENOrdering Facility: [facility] Address: [address] [place] [address] Performed By: #### 5 7021-8 ####[facility] RIVERNCLIA [id number] [place] [address] [place] CNOVSPon 01-04-2025 CNOVSP Visit (SP) Office (HEMAWS) -------- JAYLEN GALAVIZ ([id number]) 1935 M Date Time Provider Department 01/04/25 [...] for pancytopenia. Had RT to prostate 2022 [facility]. WBC 2.7-3.1 in September, hgb 9.5 to [...] Benign hypertension Bilateral leg pain 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 Centrilobular emphysema (HCC) CKD (chronic kidney [...] tablet Conrado (more content not included)... Normal [facility] CBC W Auto Differential pane l (Bld)on 12-14-2024 Basophils (Bld) [#/Vol] [facility] Basophils/100 WBC (Bld) 0.6 % [facility] Differential cell count method Nom (Bld) Auto [facility] Eosinophils (Bld) [#/Vol] 0.22 10*3/uL [facility] Eosinophils/100 WBC (Bld) 6.2 % [facility] Erythrocyte distribution width (RBC) [Ratio] 18.6 % High 11.5 - 15.0 % [facility] Hematocrit (Bld) [Volume fraction] 30.2 % Low 39.0 - 51.0 % [facility] Hemoglobin (Bld) [Mass/Vol] 9.5 g/dL Low 13.0 - 17.0 g/dL [facility] Immature granulocytes (Bld) [#/Vol] [facility] Immature granulocytes/100 WBC (Bld) 0.6 % [facility] Interpretation and review of laboratory results Abnormal [facility] Lymphocytes (Bld) [#/Vol] 0.47 10*3/uL Low [facility] Lymphocytes/100 WBC (Bld) 13.2 % [facility] MCH (RBC) [Entitic mass] 28.5 pg 26.0 - 34.0 pg [facility] MCHC (RBC) [Mass/Vol] 31.5 g/dL 30.5 - 36.0 g/dL [facility] MCV (RBC) [Entitic vol] 90.7 fL 80.0 - 100.0 fL [facility] Monocytes (Bld) [#/Vol] 0.48 10*3/uL NINF [facility] Monocytes/100 WBC (Bld) 13.5 % [facility] Neutrophils (Bld) [#/Vol] 2.35 10*3/uL [facility] Neutrophils/100 WBC (Bld) 65.9 % [facility] Nucleated RBC (Bld) [#/Vol] NINF [facility] Nucleated RBC/100 WBC (Bld) [Ratio] 0 % /100 WBC [facility] Platelet mean volume (Bld) [Entitic vol] 9.1 fL 9.0 - 12.7 fL [facility] Platelets (Bld) [#/Vol] 147 10*3/uL Low [facility] RBC (Bld) [#/Vol] 3.33 10*6/uL Low 4.20 - 6.0 0 m/uL [facility] WBC (Bld) [#/Vol] 3.56 10*3/uL Low [facility] Basophils (Bld) [#/Vol] 10*3/uL Normal <0.11 [facility] Comment on above: Order Comment: Speci men Type: BLOOD SPECIMENOrdering Facility: [facility] Address: [address] [place] [address] Performed By: #### 1 4196-0, 04579-5 ####[facility] [id number] [place] [address] [place] Basophils/100 WBC (Bld) 0.6 % Normal [facility] Comment on above: Order Comment: Speci men Type: BLOOD SPECIMENOrdering Facility: [facility] Address: [address] [place] [address] Performed By: #### 1 4196-0, 13567-9 ####[facility] [id number] [place] [address] [place] Differential cell count method Nom (Bld) Auto Normal [facility] Comment on above: Order Comment: Speci men Type: BLOOD SPECIMENOrdering Facility: [facility] Address: [address] [place] [address] Performed By: #### 1 4196-0, 56882-7 ####[facility] AMBERDANBURYROJAS [id number] [place] [address] [place] Eosinophils (Bld) [#/Vol] 0.22 10*3/uL Normal <0.46 [facility] Comment on above: Order Comment: Speci men Type: BLOOD SPECIMENOrdering Facility: [facility] Address: [address] [place] [address] Performed By: #### 1 4196-0, 93294-3 ####[facility] RIVEREDGARKerri [id number] [address] [place] Eosinophils/100 WBC (Bld) 6.2 % Normal [facility] Comment on above: Order Comment: Speci men Type: BLOOD SPECIMENOrdering Facility: [facility] Address: [address] [place] [address] Performed By: #### 1 4196-0, 15143-5 ####[facility] [id number] [place] [address] [place] Erythrocyte distribution width (RBC) [Ratio] 18.6 % High 11.5-15.0 [facility] Comment on above: Order Comment: Speci men Type: BLOOD SPECIMENOrdering Facility: [facility] Address: [address] [place] [address] Performed By: #### 1 4196-0, 40011-2 ####[facility] [id number] [address] [place] Hematocrit (Bld) [Volume fraction] 30.2 % Low 39.0-51.0 [facility] Comment on above: Order Comment: Speci men Type: BLOOD SPECIMENOrdering Facility: [facility] Address: [address] [place] [address] Performed By: #### 1 4196-0, 81215-4 ####[facility] RIVERNCLIA [id number] [place] [address] [place] Hemoglobin (Bld) [Mass/Vol] 9.5 g/dL Low 13.0-17.0 [facility] Comment on above: Order Comment: Speci men Type: BLOOD SPECIMENOrdering Facility: [facility] Address: [address] [place] [address] Performed By: #### 1 4196-0, 67549-9 ####[facility] RIVERNCLIA [id number] [place] [address] [place] Immature granulocytes (Bld) [#/Vol] 10*3/uL Normal <0.10 [facility] Comment on above: Order Comment: Speci men Type: BLOOD SPECIMENOrdering Facility: [facility] Address: [address] [place] [address] Performed By: #### 1 4196-0, 46427-3 ####[facility] RIVERNCLIA [id number] [place] [address] [place] Immature granulocytes/100 WBC (Bld) 0.6 % Normal [facility] Comment on above: Order Comment: Speci men Type: BLOOD SPECIMENOrdering Facility: [facility] Address: [address] [place] [address] Performed By: #### 1 4196-0, 60898-9 ####[facility] [id number] [place] [address] [place] Lymphocytes (Bld) [#/Vol] 0.47 10*3/uL Low 1.00-4.00 [facility] Comment on above: Order Comment: Speci men Type: BLOOD SPECIMENOrdering Facility: [facility] Address: [address] [place] [address] Performed By: #### 1 4196-0, 67713-7 ####[facility] [id number] [place] [address] [place] Lymphocytes/100 WBC (Bld) 13.2 % Normal [facility] Comment on above: Order Comment: Speci men Type: BLOOD SPECIMENOrdering Facility: [facility] Address: [address] [place] [address] Performed By: #### 1 4196-0, 60810-5 ####[facility] AMBERDANBURYROJAS [id number] [place] [address] [place] MCH (RBC) [Entitic mass] 28.5 pg Normal 26.0-34.0 [facility] Comment on above: Order Comment: Speci men Type: BLOOD SPECIMENOrdering Facility: [facility] Address: [address] [place] [address] Performed By: #### 1 4196-0, 03892-9 ####[facility] RIVERROJAS [id number] [place] [address] [place] MCHC (RBC) [Mass/Vol] 31.5 g/dL Normal 30.5-36.0 [facility] Comment on above: Order Comment: Speci men Type: BLOOD SPECIMENOrdering Facility: [facility] Address: [address] [place] [address] Performed By: #### 1 4196-0, 18766-2 ####[facility] AMBERDANBURYROJAS [id number] [place] [address] [place] MCV (RBC) [Entitic vol] 90.7 fL Normal 80.0-100.0 [facility] Comment on above: Order Comment: Speci men Type: BLOOD SPECIMENOrdering Facility: [facility] Address: [address] [place] [address] Performed By: #### 1 4196-0, 96409-6 ####[facility] AMBERDANBURYROJAS [id number] [place] [address] [place] Monocytes (Bld) [#/Vol] 0.48 10*3/uL Normal <0.87 [facility] Comment on above: Order Comment: Speci men Type: BLOOD SPECIMENOrdering Facility: [facility] Address: [address] [place] [address] Performed By: #### 1 4196-0, 55315-4 ####[facility] RIVERIBETHA [id number] [place] [address] [place] Monocytes/100 WBC (Bld) 13.5 % Normal [facility] Comment on above: Order Comment: Speci men Type: BLOOD SPECIMENOrdering Facility: [facility] Address: [address] [place] [address] Performed By: #### 1 4196-0, 56111-2 ####[facility] RIVERROJ[facility] [id number] [place] [address] [place] Neutrophils (Bld) [#/Vol] 2.35 10*3/uL Normal 1.45-7.50 [facility] Comment on above: Order Comment: Speci men Type: BLOOD SPECIMENOrdering Facility: [facility] Address: [address] [place] [address] Performed By: #### 1 4196-0, 91719-2 ####[facility] [id number] [place] [address] [place] Neutrophils/100 WBC (Bld) 65.9 % Normal [facility] Comment on above: Order Comment: Speci men Type: BLOOD SPECIMENOrdering Facility: [facility] Address: [address] [place] [address] Performed By: #### 1 4196-0, 51989-6 ####[facility] RIVERNCLIA [id number] [place] [address] [place] Nucleated RBC (Bld) [#/Vol] 10*3/uL Normal <0.01 [facility] Comment on above: Order Comment: Speci men Type: BLOOD SPECIMENOrdering Facility: [facility] Address: [address] [place] [address] Performed By: #### 1 4196-0, 07134-4 ####[facility] RIVERNCA [id number] [place] [address] [place] Nucleated RBC/100 WBC (Bld) [Ratio] 0.0 /100 WBC Normal [facility] Comment on above: Order Comment: Speci men Type: BLOOD SPECIMENOrdering Facility: [facility] Address: [address] [place] [address] Performed By: #### 1 4196-0, 62734-7 ####[facility] [id number] [place] [address] [place] Platelet mean volume (Bld) [Entitic vol] 9.1 fL Normal 9.0-12.7 [facility] Comment on above: Order Comment: Speci men Type: BLOOD SPECIMENOrdering Facility: [facility] Address: [address] [place] [address] Performed By: #### 1 4196-0, 41110-0 ####[facility] [id number] [place] [address] [place] Platelets (Bld) [#/Vol] 147 10*3/uL Low 150-400 [facility] Comment on above: Order Comment: Speci men Type: BLOOD SPECIMENOrdering Facility: [facility] Address: [address] [place] [address] Performed By: #### 1 4196-0, 53562-9 ####[facility] RIVERNCLI [id number] [place] [address] [place] RBC (Bld) [#/Vol] 3.33 10*6/uL Low 4.20-6.00 [facility] Comment on above: Order Comment: Speci men Type: BLOOD SPECIMENOrdering Facility: [facility] Address: [facility] [place] [id number] Performed By: #### 1 4196-0, 43481-8 ####[facility] RIVERNCLIA [id number] [place] [address] [place] WBC (Bld) [#/Vol] 3.56 10*3/uL Low 3.70-11.00 [facility] Comment on above: Order Comment: Speci men Type: BLOOD SPECIMENOrdering Facility: [facility] Address: [facility] [place] [address] Performed By: #### 1 4196-0, 96297-9 ####[facility] RIVERNCLIA [id number] [address] [place] CNOVSPon 12-14-2024 CNOVSP Visit (SP) Office (HEMAWS) -------- JAYLEN GALAVIZ ([id number]) 1935 M Date Time Provider Department 12/14/24 [...] for pancytopenia. Had RT to prostate 2022 [facility]. 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 Normal [facility] Creatinine + eGFR Pnl SerPlB ldon 12-14-2024 Creatinine and Glomerular filtration rate.predicted panel (S/P/Bld) 58 mL/min/1.73m??? Low >=60 [facility] Comment on above: Order Comment: Olga suarez Type: BLOOD SPECIMENOrdering Facility: [facility] Address: [address] [place] [address] Result Comment: Liliane mated Glomerular Filtration Rate [...] actual GFR. Performed By: #### 4 5066-8 ####[facility] [id number] [address] OF [facility] Creatinine and Glomerular fi ltration rate.predicted panel (S/P/Bld)Ordered By: Desi Martin on 12-14-2024 Creatinine [Mass/Vol] 1.21 mg/dL 0.73 - 1.22 mg/dL [facility] GFR/1.73 sq M.predicted among non-blacks MDRD (S/P/Bld) [Vol rate/Area] 58 mL/min/{1.73_m2} Low - PINF [facility] Comment on above: Estimated Glomerular Filtration [...] Interpretation and review of laboratory results Abnormal [facility] Creatinine and Glomerular fi ltration rate.predicted panel (S/P/Bld)on 12-14-2024 Creatinine [Mass/Vol] 1.21 mg/dL Normal 0.73-1.22 [facility] [place] Comment on above: Order Comment: Olga suarez Type: BLOOD SPECIMENOrdering Facility: [facility] Address: [address] [place] [address] Performed By: #### 4 5066-8 ####[facility] [id number] [place] [address] [place] Ferritin SerPl-mCncon 2024 Ferritin [Mass/Vol] 90.0 ng/mL Normal 30.3-565.7 [facility] Comment on above: Order Comment: Speci men Type: BLOOD SPECIMENOrdering Facility: [facility] Address: [address] [place] [address] Performed By: #### 4 542-7, 28353-4, 2276-4 ####[facility] [id number] [place] [address] [place] Folate SerPl-mCncon 12-15-19 Folate [Mass/Vol] 13.5 ng/mL Normal >4.7 [facility] Comment on above: Order Comment: Speci men Type: BLOOD SPECIMENOrdering Facility: [facility] Address: [address] [place] [address] Performed By: #### 2 132-9, 2284-8 ####[facility] [id number] [place] [address] [place] Haptoglob SerPl-mCncon 12-14 Haptoglobin [Mass/Vol] 50 mg/dL Normal 31-238 [facility] Comment on above: Order Comment: Speci men Type: BLOOD SPECIMENOrdering Facility: [facility] Address: [address] [place] [address] Performed By: #### 4 542-7, 30464-8, 2276-4 ####[facility] [id number] [place] [address] [place] Iron and Iron binding capaci ty panelon 12-14-2024 Iron [Mass/Vol] 57 ug/dL Normal 41-186 [facility] Comment on above: Order Comment: Speci men Type: BLOOD SPECIMENOrdering Facility: [facility] Address: [address] [place] [address] Performed By: #### 4 542-7, 83010-5, 6-4 ####[facility] [id number] [place] [id number] [place] Iron binding capacity [Mass/Vol] 373 ug/dL Normal 232-386 [facility] Comment on above: Order Comment: Speci men Type: BLOOD SPECIMENOrdering Facility: [facility] Address: [address] [place] [address] Performed By: #### 4 542-7, 33094-9, 4 ####[facility] [id number] [place] [id number] [place] Iron/TIBC [Molar ratio] 15.3 % Normal 15.0-57.0 [facility] Comment on above: Order Comment: Speci men Type: BLOOD SPECIMENOrdering Facility: [facility] Address: [address] [place] [address] Performed By: #### 4 542-7, 58409-7, 4 ####[facility] [id number] [place] [id number] [place] No Panel Informationon 12-14 [facility] RETICULOCYTE COUNTon 025 Reticulocytes (Bld) [#/Vol] 0.047 10*3/uL [facility] Retics #on 12-14-2024 Reticulocytes (Bld) [#/Vol] 0.11217 10*3/uL Normal 0.018-0.100 [facility] Comment on above: Order Comment: Speci men Type: BLOOD SPECIMENOrdering Facility: [facility] Address: [address] [place] [address] Performed By: #### 1 4196-0, 04424-1 ####[facility] [id number] [address] [place] Reticulocytes (Bld) [#/Vol]o n 12-14-2024 Interpretation and review of laboratory results Normal [facility] Reticulocytes/100 RBC (Bld) 1.4 % 0.4 - 2.0 % [facility] Reticulocytes/100 RBC (Bld) 1.4 % Normal 0.4-2.0 [facility] Comment on above: Order Comment: Olga suarez Type: BLOOD SPECIMENOrdering Facility: [facility] Address: [address] [place] [address] Performed By: #### 1 4196-0, 22233-4 ####[facility] [id number] [place] [address] [place] Vit B12 SerPl-ncon 025 Cobalamin (Vitamin B12) [Mass/Vol] 498 pg/mL Normal 232-1245 [facility] Comment on above: Order Comment: Olga suarez Type: BLOOD SPECIMENOrdering Facility: [facility] Address: [address] [place] [address] Performed By: #### 2 132-9, 2284-8 ####[facility] [id number] [address] [place] CNOVon 11-29-2024 CNOV Office Visit (MMAS ) -------- JAYLEN GALAVIZ ([id number]) 1935 M Date Time Provider Department 11/29/24 10:45 AM FABIOLA CROSS [facility] During your visit today, we recorded the following information about you: Temperature Pulse Respiration Blood pressure 98.1 degrees 94/minute 18/minute 132/64 Weight 92.5 kg Chelita Lawson LPN 11/29/2024 12:58 PM Signed Patient unable to verify medication list at this time. Chelita Lawson, Fabiola Hall, [place].TEMPLE MARKER 11/29/2024 12:58 PM Signed [facility] Nati Galaviz is [...] agreed with plan and discharged kailey Cross APRN.TEMPLE MARKER MDM Procedures 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 APRN.CNP 11/29/2024 12:03 PM Signed OK to resume therapy. Follow printed instructions from Up to date. Follow up with PCP if no improvement in 1-2 weeks Referring Provider: SELF [200] Allergies As of Date: 11/29/2024 Noted Allergy Reaction ROSUVASTATIN 07/24/2020 17 - Myalgia Date Reviewed: 11/29/2024 Reviewed by: 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 APRN.TEMPLE MARKER - Fully Assessed Reason for Visit: left upper arm pain [Other] Cmt: Patient states 6 days ago he fell off his tractor and went to catch himself - he is now having left upper arm pain Primary Visit Diagnosis:Injury of left upper arm, initial encounter [S49.92XA] Other Visit Diagnosis:Biceps tendonitis on left [M75.22] Order(s):XR HUMERUS 2V AP/LAT LEFT [[id number]] Order #: [id number] FUTURE Prescriptions as of 11/29/2024 - ascorbic [...] CPAP - SITagliptin-metFOR (more content not included)... [facility] XR HUMERUS 2V AP/LAT LTon XR HUMERUS [...] the shoulder. IMPRESSION: No acute osseous abnormality. Ball Thread Machine Tender: [facility] Transcribe Date/Time: Nov 29 2024 12:16P Dictated by : JEMMA SUH MD This examination was interpreted and the report reviewed and electronically signed by: JEMMA SUH MD on Nov 29 2024 12:16PM EST [id number] [facility] XR Humerus - left AP and Lat eralon 11-29-2024 IMPRESSION: No acute osseous abnormality. Ball Thread Machine Tender: [facility] Transcribe Date/Time: Nov 29 2024 12:16P Dictated by : JEMMA SUH MD This examination was interpreted and the report reviewed and electronically signed by: JEMMA SUH MD on Nov 29 2024 12:16PM EST [facility] * * *Final Report* * * [...] Degenerative changes are present in the shoulder. [facility] Provider, Nehemias Arevalo carrie Kelle - [...] shoulder. IMPRESSION IMPRESSION: No acute osseous abnormality. Ball Thread Machine Tender: [facility] Transcribe Date/Time: Nov 29 2024 12:16P Dictated by : JEMMA SUH MD This examination was interpreted and the report reviewed and electronically signed by: JEMMA SUH MD on Nov 29 2024 12:16PM [facility] Study observation (narrative) [facility] XR Humerus - left AP and Lat eralOrdered By: Ccf Provider on 11-29-2024 [facility] CNPCaro 11-28-2024 CNPN Telephone (CHARISMA) -------- JAYLEN GALAVIZ ([id number]) 1935 M Date Time Provider Department 11/28/24 HA LUQUE During your visit today, we recorded the following information about you: Shilpa Trivedi 11/28/2024 11:15 AM Signed Lvm for patient to return the call. When patient calls back please schedule with either provider 1st available Folder at the assistant front office manager GEOSPATIAL IMAGERY INTELLIGENCE ANALYST/WORSENING ANEMIA/REF BY DR. LONNIE POLLACK* Shilpa Wang [facility], [place] 12/03/2024 9:14 AM Signed Scheduled with [...] disease) stage 3, GFR 30-59*08/26/2021 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 [I25.10] 08/26/2021 Benign hypertension [I10] 08/26/[address] of the chest [R93.89] 08/26/2021 Abnormal chest x-ray [R93.89] 08/26/2021 Type 2 diabetes mellitus without complication (*08/26/2021 Encounter Status:Closed by ALTAGRACIA TAFOYA on 12/03/24 Normal [facility] .Auto Diffon 11-21-2024 Basophil, Absolute 0.0 10 3/mcL Normal 0.0-0.2 [facility] Comment on above: Performed By: #### A DIFF, ANEU, CMP, GFR, CBC #### [address] [address] Basophils/100 WBC (Bld) 1.2 % Normal 0.0-2.5 [facility] Comment on above: Performed By: #### A DIFF, ANEU, CMP, GFR, CBC #### [address] [address] Eosinophil, Absolute 0.2 10 3/mcL Normal 0.0-0.7 [facility] Comment on above: Performed By: #### A DIFF, ANEU, CMP, GFR, CBC #### [address] [address] Eosinophils/100 WBC (Bld) 5.5 % Normal 0.0-7.0 [facility] Comment on above: Performed By: #### A DIFF, ANEU, CMP, GFR, CBC #### [address] [address] Lymphocyte, Absolute 0.4 10 3/mcL Low 0.9-4.3 [facility] Comment on above: Performed By: #### A DIFF, ANEU, CMP, GFR, CBC #### [address] [address] Lymphocytes/100 WBC (Bld) 8.4 % Low 20.0-40.0 [facility] Comment on above: Performed By: #### A DIFF, ANEU, CMP, GFR, CBC #### [address] [address] Monocyte, Absolute 0.5 10 3/mcL Normal 0.1-1.4 [facility] Comment on above: Performed By: #### A DIFF, ANEU, CMP, GFR, CBC #### [address] [address] Monocytes/100 WBC (Bld) 13.0 % Normal 2.0-13.0 [facility] Comment on above: Performed By: #### A DIFF, ANEU, CMP, GFR, CBC #### [address] [address] Neutrophils/100 WBC (Bld) 71.9 % Normal 50.0-75.0 [facility] Comment on above: Performed By: #### A DIFF, ANEU, CMP, GFR, CBC #### [address] [address] .GFRon 11-21-2024 Estimated Glomerular Filtration Rate 48 ml/min/1.73sqm Normal [facility] Comment on above: Result Comment: Stages [...] A DIFF, ANEU, CMP, GFR, CBC #### [address] [address] .NEUABSon 11-21-2024 Neutrophil, Absolute 3.0 10 3/mcL Normal 2.3-8.1 [facility] Comment on above: Performed By: #### A DIFF, ANEU, CMP, GFR, CBC #### [place] [address] A1Con 11-21-2024 Glucose [Mass/Vol] 177 mg/dL Normal [facility] Comment on above: Result Comment: Liliane mated Average Glucose calculated by equation ((28.7xA1C)-46.7) Estimated average glucose (eAG) is a calculated value from Hemoglobin A1C and is promotional representative of the average blood glucose level in the last 2-3 month period. Normal range: less than 114 mg/dL Performed By: #### A DIFF, ANEU, CMP, GFR, CBC #### [place] [address] HbA1c (Bld) [Mass fraction] 7.8 % High 4.3-6.4 [facility] Comment on above: Performed By: #### A DIFF, ANEU, CMP, GFR, CBC #### [place] [address] CBCon 11-21-2024 Erythrocyte distribution width (RBC) [Ratio] 18.2 % High 11.5-15.5 [facility] Comment on above: Performed By: #### A DIFF, ANEU, CMP, GFR, CBC #### [place] [address] Hematocrit (Bld) [Volume fraction] 29.3 % Low 40.0-52.0 [facility] Comment on above: Performed By: #### A DIFF, ANEU, CMP, GFR, CBC #### [place] [address] Hgb 9.8 G/dL Low 13.0-17.5 [facility] Comment on above: Performed By: #### A DIFF, ANEU, CMP, GFR, CBC #### [place] [address] MCH (RBC) [Entitic mass] 28.7 pg Normal 27.0-33.0 [facility] Comment on above: Performed By: #### A DIFF, ANEU, CMP, GFR, CBC #### [place] [address] MCHC 33.3 G/dL Normal 32.0-36.0 [facility] Comment on above: Performed By: #### A DIFF, ANEU, CMP, GFR, CBC #### [place] [address] MCV (RBC) [Entitic vol] 86.4 fL Normal 81.0-100.0 [facility] Comment on above: Performed By: #### A DIFF, ANEU, CMP, GFR, CBC #### [place] [address] Platelet 207 10 3/mcL Normal 150-450 [facility] Comment on above: Performed By: #### A DIFF, ANEU, CMP, GFR, CBC #### [place] [address] Platelet mean volume (Bld) [Entitic vol] 7.2 fL Normal 6.4-10.5 [facility] Comment on above: Performed By: #### A DIFF, ANEU, CMP, GFR, CBC #### [place] [address] RBC 3.40 10 6/mcL Low 4.50-6.00 [facility] Comment on above: Performed By: #### A DIFF, ANEU, CMP, GFR, CBC #### [place] [address] WBC 4.2 10 3/mcL Low 4.5-10.8 [facility] Comment on above: Performed By: #### A DIFF, ANEU, CMP, GFR, CBC #### [place] [id number] CMPon 11-21-2024 Albumin Level 3.3 G/dL Low 3.4-4.8 [facility] Comment on above: Performed By: #### A DIFF, ANEU, CMP, GFR, CBC #### [place] [id number] Albumin/Globulin [Mass ratio] 0.8 {ratio} Low 1.1-2.5 [facility] Comment on above: Performed By: #### A DIFF, ANEU, CMP, GFR, CBC #### [place] [id number] ALP [Catalytic activity/Vol] 79 U/L Normal 40-135 [facility] Comment on above: Performed By: #### A DIFF, ANEU, CMP, GFR, CBC #### [place] [id number] ALT [Catalytic activity/Vol] 22 U/L Normal 16-63 [facility] Comment on above: Performed By: #### A DIFF, ANEU, CMP, GFR, CBC #### [place] [id number] AST [Catalytic activity/Vol] 21 U/L Normal 10-40 [facility] Comment on above: Performed By: #### A DIFF, ANEU, CMP, GFR, CBC #### [place] [id number] Bili Total 0.3 mg/dL Normal 0.2-1.0 [facility] Comment on above: Result Comment: Use of this assay is not recommended for patients undergoing treatment with eltrombopag due to the potential for falsely elevated results. Performed By: #### A DIFF, ANEU, CMP, GFR, CBC #### [place] [id number] BUN/Creatinine Ratio 20 ratio Normal 7-27 [facility] Comment on above: Performed By: #### A DIFF, ANEU, CMP, GFR, CBC #### [place] [id number] Calcium [Mass/Vol] 10.0 mg/dL Normal 8.4-10.2 [facility] Comment on above: Performed By: #### A DIFF, ANEU, CMP, GFR, CBC #### [address] [address] Chloride [Moles/Vol] 100 mmol/L Normal 98-107 [facility] Comment on above: Performed By: #### A DIFF, ANEU, CMP, GFR, CBC #### [address] [address] CO2 [Moles/Vol] 27 mmol/L Normal 23-31 [facility] Comment on above: Performed By: #### A DIFF, ANEU, CMP, GFR, CBC #### [address] [address] Creatinine [Mass/Vol] 1.41 mg/dL High 0.70-1.30 [facility] Comment on above: Result Comment: Test ing performed on [employer] Dimension EXL analyzer using a modified kinetic Derrell technique. Performed By: #### A DIFF, ANEU, CMP, GFR, CBC #### [address] [address] Electrolyte Balance 9.0 mEq/L Normal 4.0-15.0 [facility] Comment on above: Performed By: #### A DIFF, ANEU, CMP, GFR, CBC #### [address] [address] Globulin 3.9 G/dL High 1.5-3.8 [facility] Comment on above: Performed By: #### A DIFF, ANEU, CMP, GFR, CBC #### [address] [address] Glucose [Mass/Vol] 165 mg/dL High 83-110 [facility] Comment on above: Performed By: #### A DIFF, ANEU, CMP, GFR, CBC #### [address] [address] Potassium [Moles/Vol] 4.7 mmol/L Normal 3.5-5.1 [facility] Comment on above: Performed By: #### A DIFF, ANEU, CMP, GFR, CBC #### [address] [address] Sodium [Moles/Vol] 136 mmol/L Normal 136-145 [facility] Comment on above: Performed By: #### A DIFF, ANEU, CMP, GFR, CBC #### [address] [address] Total Protein 7.2 G/dL Normal 6.4-8.2 [facility] Comment on above: Performed By: #### A DIFF, ANEU, CMP, GFR, CBC #### [address] [address] Urea nitrogen [Mass/Vol] 28 mg/dL High 7-18 [facility] Comment on above: Performed By: #### A DIFF, ANEU, CMP, GFR, CBC #### [address] [address] LIPIDon 11-21-2024 Cholesterol [Mass/Vol] 244 mg/dL High 0-200 [facility] Comment on above: Result Comment: Chol esterol Reference Interval: Less than 200 Desirable 200-239 Borderline high risk 240 and above High risk Performed By: #### A DIFF, ANEU, CMP, GFR, CBC #### [address] [address] Cholesterol in HDL [Mass/Vol] 44 mg/dL Normal 40-60 [facility] Comment on above: Performed By: #### A DIFF, ANEU, CMP, GFR, CBC #### [address] [address] Cholesterol in LDL [Mass/Vol] 172 mg/dL High 0-130 [facility] Comment on above: Performed By: #### A DIFF, ANEU, CMP, GFR, CBC #### [address] [address] Triglyceride [Mass/Vol] 141 mg/dL Normal 0-150 [facility] Comment on above: Result Comment: Trig lyceride Reference Interval: Less than 150 Normal 150-199 Borderline high risk 200-499 High risk 500 or higher Very high risk Performed By: #### A DIFF, ANEU, CMP, GFR, CBC #### [address] [address] .Auto Diffon 11-06-2024 Basophil, Absolute 0.0 10 3/mcL Normal 0.0-0.2 [facility] Comment on above: Performed By: #### A DIFF, ANEU, CMP, GFR, CBC #### [address] [address] Basophils/100 WBC (Bld) 0.8 % Normal 0.0-2.5 [facility] Comment on above: Performed By: #### A DIFF, ANEU, CMP, GFR, CBC #### [address] [address] Eosinophil, Absolute 0.4 10 3/mcL Normal 0.0-0.7 [facility] Comment on above: Performed By: #### A DIFF, ANEU, CMP, GFR, CBC #### [address] [address] Eosinophils/100 WBC (Bld) 7.2 % High 0.0-7.0 [facility] Comment on above: Performed By: #### A DIFF, ANEU, CMP, GFR, CBC #### [address] [address] Lymphocyte, Absolute 0.3 10 3/mcL Low 0.9-4.3 [facility] Comment on above: Performed By: #### A DIFF, ANEU, CMP, GFR, CBC #### [address] [address] Lymphocytes/100 WBC (Bld) 6.3 % Low 20.0-40.0 [facility] Comment on above: Performed By: #### A DIFF, ANEU, CMP, GFR, CBC #### [address] [address] Monocyte, Absolute 0.7 10 3/mcL Normal 0.1-1.4 [facility] Comment on above: Performed By: #### A DIFF, ANEU, CMP, GFR, CBC #### [address] [address] Monocytes/100 WBC (Bld) 13.6 % High 2.0-13.0 [facility] Comment on above: Performed By: #### A DIFF, ANEU, CMP, GFR, CBC #### [address] [address] Neutrophils/100 WBC (Bld) 72.1 % Normal 50.0-75.0 [facility] Comment on above: Performed By: #### A DIFF, ANEU, CMP, GFR, CBC #### [address] [address] .GFRon 11-06-2024 Estimated Glomerular Filtration Rate 38 ml/min/1.73sqm Normal [facility] Comment on above: Result Comment: Stages [...] A DIFF, ANEU, CMP, GFR, CBC #### [address] [address] .NEUABSon 11-06-2024 Neutrophil, Absolute 3.8 10 3/mcL Normal 2.3-8.1 [facility] Comment on above: Performed By: #### A DIFF, ANEU, CMP, GFR, CBC #### [address] [address] CBCon 11-06-2024 Erythrocyte distribution width (RBC) [Ratio] 17.7 % High 11.5-15.5 [facility] Comment on above: Performed By: #### A DIFF, ANEU, CMP, GFR, CBC #### [address] [address] Hematocrit (Bld) [Volume fraction] 30.2 % Low 40.0-52.0 [facility] Comment on above: Performed By: #### A DIFF, ANEU, CMP, GFR, CBC #### [address] [address] Hgb 10.2 G/dL Low 13.0-17.5 [facility] Comment on above: Performed By: #### A DIFF, ANEU, CMP, GFR, CBC #### [address] [address] MCH (RBC) [Entitic mass] 29.2 pg Normal 27.0-33.0 [facility] Comment on above: Performed By: #### A DIFF, ANEU, CMP, GFR, CBC #### [address] [address] MCHC 33.7 G/dL Normal 32.0-36.0 [facility] Comment on above: Performed By: #### A DIFF, ANEU, CMP, GFR, CBC #### [address] [address] MCV (RBC) [Entitic vol] 86.6 fL Normal 81.0-100.0 [facility] Comment on above: Performed By: #### A DIFF, ANEU, CMP, GFR, CBC #### [address] [address] Platelet 223 10 3/mcL Normal 150-450 [facility] Comment on above: Performed By: #### A DIFF, ANEU, CMP, GFR, CBC #### [address] [address] Platelet mean volume (Bld) [Entitic vol] 6.9 fL Normal 6.4-10.5 [facility] Comment on above: Performed By: #### A DIFF, ANEU, CMP, GFR, CBC #### [address] [address] RBC 3.48 10 6/mcL Low 4.50-6.00 [facility] Comment on above: Performed By: #### A DIFF, ANEU, CMP, GFR, CBC #### [address] [address] WBC 5.2 10 3/mcL Normal 4.5-10.8 [facility] Comment on above: Performed By: #### A DIFF, ANEU, CMP, GFR, CBC #### [place] [address] CMPon 11-06-2024 Albumin Level 3.2 G/dL Low 3.4-4.8 [facility] Comment on above: Performed By: #### A DIFF, ANEU, CMP, GFR, CBC #### [place] [address] Albumin/Globulin [Mass ratio] 0.8 {ratio} Low 1.1-2.5 [facility] Comment on above: Performed By: #### A DIFF, ANEU, CMP, GFR, CBC #### [place] [address] ALP [Catalytic activity/Vol] 82 U/L Normal 40-135 [facility] Comment on above: Performed By: #### A DIFF, ANEU, CMP, GFR, CBC #### [place] [address] ALT [Catalytic activity/Vol] 21 U/L Normal 16-63 [facility] Comment on above: Performed By: #### A DIFF, ANEU, CMP, GFR, CBC #### [address] [address] AST [Catalytic activity/Vol] 25 U/L Normal 10-40 [facility] Comment on above: Performed By: #### A DIFF, ANEU, CMP, GFR, CBC #### [place] [address] Bili Total 0.3 mg/dL Normal 0.2-1.0 [facility] Comment on above: Result Comment: Use of this assay is not recommended for patients undergoing treatment with eltrombopag due to the potential for falsely elevated results. Performed By: #### A DIFF, ANEU, CMP, GFR, CBC #### [address] [address] BUN/Creatinine Ratio 22 ratio Normal 7-27 [facility] Comment on above: Performed By: #### A DIFF, ANEU, CMP, GFR, CBC #### [address] [address] Calcium [Mass/Vol] 9.4 mg/dL Normal 8.4-10.2 [facility] Comment on above: Performed By: #### A DIFF, ANEU, CMP, GFR, CBC #### [place] [address] Chloride [Moles/Vol] 101 mmol/L Normal 98-107 [facility] Comment on above: Performed By: #### A DIFF, ANEU, CMP, GFR, CBC #### [place] [address] CO2 [Moles/Vol] 29 mmol/L Normal 23-31 [facility] Comment on above: Performed By: #### A DIFF, ANEU, CMP, GFR, CBC #### [place] [address] Creatinine [Mass/Vol] 1.72 mg/dL High 0.70-1.30 [facility] Comment on above: Result Comment: Test ing performed on [employer] Dimension EXL analyzer using a modified kinetic Derrell technique. Performed By: #### A DIFF, ANEU, CMP, GFR, CBC #### [place] [address] Electrolyte Balance 7.0 mEq/L Normal 4.0-15.0 [facility] Comment on above: Performed By: #### A DIFF, ANEU, CMP, GFR, CBC #### [place] [address] Globulin 4.1 G/dL High 1.5-3.8 [facility] Comment on above: Performed By: #### A DIFF, ANEU, CMP, GFR, CBC #### [address] [place] [address] Glucose [Mass/Vol] 144 mg/dL High 83-110 [facility] Comment on above: Performed By: #### A DIFF, ANEU, CMP, GFR, CBC #### [address] [address] Potassium [Moles/Vol] 4.8 mmol/L Normal 3.5-5.1 [facility] Comment on above: Performed By: #### A DIFF, ANEU, CMP, GFR, CBC #### [address] [address] Sodium [Moles/Vol] 137 mmol/L Normal 136-145 [facility] Comment on above: Performed By: #### A DIFF, ANEU, CMP, GFR, CBC #### [address] [address] Total Protein 7.3 G/dL Normal 6.4-8.2 [facility] Comment on above: Performed By: #### A DIFF, ANEU, CMP, GFR, CBC #### [address] [address] Urea nitrogen [Mass/Vol] 37 mg/dL High 7-18 [facility] Comment on above: Performed By: #### A DIFF, ANEU, CMP, GFR, CBC #### [address] [address] LABORATORYOrdered By: SYSTEM SYSTEM on 11-06-2024 Albumin [...] Basophil, Absolute 0.0 10 3/mcL Normal 0.0-0.2 [facility] Comment on above: Performed By: #### A DIFF, ANEU, CMP, GFR, CBC #### [address] [address] [address] Basophils/100 WBC (Bld) 1.3 % Normal 0.0-2.5 [facility] Comment on above: Performed By: #### A DIFF, ANEU, CMP, GFR, CBC #### [address] [address] Eosinophil, Absolute 0.2 10 3/mcL Normal 0.0-0.7 [facility] Comment on above: Performed By: #### A DIFF, ANEU, CMP, GFR, CBC #### [address] [address] Eosinophils/100 WBC (Bld) 5.2 % Normal 0.0-7.0 [facility] Comment on above: Performed By: #### A DIFF, ANEU, CMP, GFR, CBC #### [address] [address] Lymphocyte, Absolute 0.4 10 3/mcL Low 0.9-4.3 [facility] Comment on above: Performed By: #### A DIFF, ANEU, CMP, GFR, CBC #### [address] [address] Lymphocytes/100 WBC (Bld) 9.5 % Low 20.0-40.0 [facility] Comment on above: Performed By: #### A DIFF, ANEU, CMP, GFR, CBC #### [address] [address] Monocyte, Absolute 0.6 10 3/mcL Normal 0.1-1.4 [facility] Comment on above: Performed By: #### A DIFF, ANEU, CMP, GFR, CBC #### [address] [address] Monocytes/100 WBC (Bld) 17.0 % High 2.0-13.0 [facility] Comment on above: Performed By: #### A DIFF, ANEU, CMP, GFR, CBC #### [address] [address] Neutrophils/100 WBC (Bld) 67.0 % Normal 50.0-75.0 [facility] Comment on above: Performed By: #### A DIFF, ANEU, CMP, GFR, CBC #### [address] [address] .NEUABSon 10-23-2024 Neutrophil, Absolute 2.5 10 3/mcL Normal 2.3-8.1 [facility] Comment on above: Performed By: #### A DIFF, ANEU, CMP, GFR, CBC #### [place] [address] CBCon 10-23-2024 Erythrocyte distribution width (RBC) [Ratio] 17.7 % High 11.5-15.5 [facility] Comment on above: Performed By: #### A DIFF, ANEU, CMP, GFR, CBC #### [address] [address] Hematocrit (Bld) [Volume fraction] 29.5 % Low 40.0-52.0 [facility] Comment on above: Performed By: #### A DIFF, ANEU, CMP, GFR, CBC #### [address] [address] Hgb 9.7 G/dL Low 13.0-17.5 [facility] Comment on above: Performed By: #### A DIFF, ANEU, CMP, GFR, CBC #### [place] [address] MCH (RBC) [Entitic mass] 29.8 pg Normal 27.0-33.0 [facility] Comment on above: Performed By: #### A DIFF, ANEU, CMP, GFR, CBC #### [address] [address] MCHC 32.8 G/dL Normal 32.0-36.0 [facility] Comment on above: Performed By: #### A DIFF, ANEU, CMP, GFR, CBC #### [address] [address] MCV (RBC) [Entitic vol] 90.8 fL Normal 81.0-100.0 [facility] Comment on above: Performed By: #### A DIFF, ANEU, CMP, GFR, CBC #### [address] [address] Platelet 166 10 3/mcL Normal 150-450 [facility] Comment on above: Performed By: #### A DIFF, ANEU, CMP, GFR, CBC #### [address] [address] Platelet mean volume (Bld) [Entitic vol] 7.3 fL Normal 6.4-10.5 [facility] Comment on above: Performed By: #### A DIFF, ANEU, CMP, GFR, CBC #### [address] [address] RBC 3.25 10 6/mcL Low 4.50-6.00 [facility] Comment on above: Performed By: #### A DIFF, ANEU, CMP, GFR, CBC #### [address] [address] WBC 3.8 10 3/mcL Low 4.5-10.8 [facility] Comment on above: Performed By: #### A DIFF, ANEU, CMP, GFR, CBC #### [address] [address] LABORATORYOrdered By: SYSTEM SYSTEM on 10-23-2024 Basophils [...] Lyme Total Antibody JODIE Negative Normal Negative [facility] Comment on above: Result Comment: Lyme [...] to 14 days is recommended. Performed At: [facility] [id number] Casper Garcia PhD Ph:[phone] Performed By: #### A DIFF, ANEU, CMP, GFR, CBC #### [address] [address] .Auto Diffon 09-17-2024 Basophil, Absolute 0.1 10 3/mcL Normal 0.0-0.2 [facility] Comment on above: Performed By: #### C BC, ADIFF, ANEU #### [address] [address] Basophils/100 WBC (Bld) 1.9 % Normal 0.0-2.5 [facility] Comment on above: Performed By: #### C BC, ADIFF, ANEU #### [address] [address] Eosinophil, Absolute 0.3 10 3/mcL Normal 0.0-0.7 [facility] Comment on above: Performed By: #### C BC, ADIFF, ANEU #### [address] [address] Eosinophils/100 WBC (Bld) 8.9 % High 0.0-7.0 [facility] Comment on above: Performed By: #### C BC, ADIFF, ANEU #### [address] [address] Lymphocyte, Absolute 0.4 10 3/mcL Low 0.9-4.3 [facility] Comment on above: Performed By: #### C BC, ADIFF, ANEU #### [address] [address] Lymphocytes/100 WBC (Bld) 11.9 % Low 20.0-40.0 [facility] Comment on above: Performed By: #### C BC, ADIFF, ANEU #### [address] [address] Monocyte, Absolute 0.3 10 3/mcL Normal 0.1-1.4 [facility] Comment on above: Performed By: #### C EZRA BACON, ANEU #### [address] [address] Monocytes/100 WBC (Bld) 11.0 % Normal 2.0-13.0 [facility] Comment on above: Performed By: #### C EZRA BACON, ANEU #### [address] [address] Neutrophils/100 WBC (Bld) 66.3 % Normal 50.0-75.0 [facility] Comment on above: Performed By: #### C EZRA BACON, ANEU #### [address] [address] .NEUABSon 09-17-2024 Neutrophil, Absolute 2.0 10 3/mcL Low 2.3-8.1 [facility] Comment on above: Performed By: #### C EZRA BACON, ANEU #### [place] [address] CBCon 09-17-2024 Erythrocyte distribution width (RBC) [Ratio] 17.5 % High 11.5-15.5 [facility] Comment on above: Performed By: #### C EZRA BACON, ANEU #### [address] [address] Hematocrit (Bld) [Volume fraction] 30.8 % Low 40.0-52.0 [facility] Comment on above: Performed By: #### C EZRA BACON, ANEU #### [place] [address] Hgb 10.2 G/dL Low 13.0-17.5 [facility] Comment on above: Performed By: #### C EZRA BACON, ANEU #### [place] [address] MCH (RBC) [Entitic mass] 29.8 pg Normal 27.0-33.0 [facility] Comment on above: Performed By: #### C EZRA BACON ANEU #### [address] [address] MCHC 33.2 G/dL Normal 32.0-36.0 [facility] Comment on above: Performed By: #### C EZRA BACON, ANEU #### [address] [address] MCV (RBC) [Entitic vol] 89.7 fL Normal 81.0-100.0 [facility] Comment on above: Performed By: #### C EZRA BACON ANEU #### [address] [address] Platelet 165 10 3/mcL Normal 150-450 [facility] Comment on above: Performed By: #### C EZRA BACON ANEU #### [address] [address] Platelet mean volume (Bld) [Entitic vol] 7.6 fL Normal 6.4-10.5 [facility] Comment on above: Performed By: #### C EZRA BACON ANEU #### [address] [address] RBC 3.44 10 6/mcL Low 4.50-6.00 [facility] Comment on above: Performed By: #### C EZRA BACON, ANEU #### [address] [address] WBC 3.1 10 3/mcL Low 4.5-10.8 [facility] Comment on above: Performed By: #### C EZRA BACON ANEU #### [address] [address] CRPon 09-17-2024 C-Reactive Protein 0.6 mg/dL High 0.0-0.3 [facility] Comment on above: Performed By: #### A DIFF, ANEU, CMP, GFR, CBC #### [address], [place] [address] ESRon 09-17-2024 Erythrocyte Sed Rate 24 mm/hr High 0-20 [facility] Comment on above: Performed By: #### A DIFF, ANEU, CMP, GFR, CBC #### [place] [address] [place], [place] [address] LABORATORYOrdered By: SYSTEM SYSTEM on 09-17-2024 Basophils [...] Routine cultures are held for 5 days. [facility] Work Phone: A1Con 09-08-2024 Glucose [Mass/Vol] 157 mg/dL Normal [facility] Comment on above: Result Comment: Liliane mated Average Glucose calculated by equation ((28.7xA1C)-46.7) Estimated average glucose (eAG) is a calculated value from Hemoglobin A1C and is promotional representative of the average blood glucose level in the last 2-3 month period. Normal range: less than 114 mg/dL Performed By: #### L IPID, A1C ####[address] [address] HbA1c (Bld) [Mass fraction] 7.1 % High 4.0-6.0 [facility] Comment on above: Performed By: #### L IPID, A1C ####[address] [address] [address] HEAD OR BRAIN W/O CONTRAS Ton [...] 09/08/2024 8:58:52 PM Ordering Provider: JORDI MOODY [facility] MA[facility] LABORATORYOrdered By: La bunn on [...] calculated value from Hemoglobin A1C and is promotional representative of the average blood glucose level in the last 2-3 month period. Normal range: less than 114 mg/dL HbA1c (Bld) [Mass fraction] 7.1 % High 4.0 - 6.0 % Auto Chem SS LIPIDon 09-08-2024 Cholesterol [Mass/Vol] 255 mg/dL High 50-199 [facility] Comment on above: Result Comment: Chol esterol Reference Interval: Less than 200 Desirable 200-239 Borderline high risk 240 and above High risk Performed By: #### L IPID, A1C ####[place] [id number] [place] [address] Cholesterol in HDL [Mass/Vol] 35 mg/dL Low 40-59 [facility] Comment on above: Performed By: #### L IPID, A1C ####[address] [address] Cholesterol in LDL [Mass/Vol] 179 mg/dL High 0-129 [facility] Comment on above: Performed By: #### L IPID, A1C ####[address] [address] Triglyceride [Mass/Vol] 204 mg/dL High 3-149 [facility] Comment on above: Performed By: #### L IPID, A1C ####[address] [address] MRI BRAIN W/O CONTRASTon MRI BRAIN W/O [...] 09/08/2024 9:07:08 PM Ordering Provider: JORDI MOODY [facility] XR FOREIGN BODY LOC EYE [...] 09/08/2024 6:31:11 PM Ordering Provider: JORDI MOODY [facility] .Auto Diffon 09-07-2024 Basophil, Absolute 0.0 10 3/mcL Normal 0.0-0.3 [facility] Comment on above: Performed By: #### C MP, MDW, ANEU, ADIFF, GFR, TROPHS, APTT, PRO, CBC #### [facility] [address] [place] [address] Basophils/100 WBC (Bld) 1.8 % Normal 0.0-2.5 [facility] Comment on above: Performed By: #### C LUBNA, W, ANEU, ADIFF, GFR, TROPHS, APTT, PRO, CBC #### [address] [address] Eosinophil, Absolute 0.3 10 3/mcL Normal 0.0-0.7 [facility] Comment on above: Performed By: #### C LUBNA, W, ANEU, ADIFF, GFR, TROPHS, APTT, PRO, CBC #### [address] [address] Eosinophils/100 WBC (Bld) 9.6 % High 0.0-6.0 [facility] Comment on above: Performed By: #### C LUBNA, MDW, ANEU, ADIFF, GFR, TROPHS, APTT, PRO, CBC #### [address] [address] Lymphocyte, Absolute 0.4 10 3/mcL Low 0.9-4.3 [facility] Comment on above: Performed By: #### C LUBNA, MDW, ANEU, ADIFF, GFR, TROPHS, APTT, PRO, CBC #### [address] [address] Lymphocytes/100 WBC (Bld) 14.3 % Low 20.0-40.0 [facility] Comment on above: Performed By: #### C LUBNA, W, ANEU, ADIFF, GFR, TROPHS, APTT, PRO, CBC #### [address] [address] Monocyte, Absolute 0.4 10 3/mcL Normal 0.1-1.4 [facility] Comment on above: Performed By: #### C LUBNA, W, ANEU, ADIFF, GFR, TROPHS, APTT, PRO, CBC #### [address] [address] Monocytes/100 WBC (Bld) 14.7 % High 2.0-13.0 [facility] Comment on above: Performed By: #### C LUBNA, W, ANEU, ADIFF, GFR, TROPHS, APTT, PRO, CBC #### [place] [address] [place] [address] Neutrophils/100 WBC (Bld) 59.6 % Normal 50.0-75.0 [facility] Comment on above: Performed By: #### C ERICK CALVO, ANEU, ADIFF, GFR, TROPHS, APTT, PRO, CBC #### [place] [id number] [place] [address] .GFRon 09-07-2024 GFR Non- 52 ml/min/1.73sqm [facility] Comment on above: Result Comment: [...] LIANG, ADIFF, GFR, TROPHS, APTT, PRO, CBC ####[facility] [place] [address] GFR >60 Normal [facility] Comment on above: Result Comment: [...] ANEU, ADIFF, GFR, TROPHS, APTT, PRO, CBC ####[place] [address] .MDWon 09-07-2024 Monocyte Distribution Width 18.78 Normal 0.00-20.00 [facility] Comment on above: Result Comment: For ED adult patients suspected of sepsis, MDW<=20.0 does not rule out sepsis or risk of sepsis Performed By: #### C ERICK CALVO, ANEU, ADIFF, GFR, TROPHS, APTT, PRO, CBC #### [place] [address] .NEUABSon 09-07-2024 Neutrophil, Absolute 1.6 10 3/mcL Low 2.3-8.1 [facility] Comment on above: Performed By: #### C ERICK CALVO, ANEU, ADIFF, GFR, TROPHS, APTT, PRO, CBC #### [place] [address] APTTon 09-07-2024 aPTT Coag (Bld) [Time] 31.6 s Normal 25.0-35.0 [facility] Comment on above: Result Comment: For Heparin anticoagulation therapy, the recommended therapeutic range is: 54-77 seconds (APTT Correlation with Anti-Xa therapeutic range of 0.3-0.7 units/ml). PLEASE REFERENCE THE PHARMACY PROTOCOL FOR DOSING. Performed By: #### C ERICK CALVO, LIANG, ADIFF, GFR, TROPHS, APTT, PRO, CBC ####[place] [address] CBCon 09-07-2024 Erythrocyte distribution width (RBC) [Ratio] 17.4 % High 11.5-15.5 [facility] Comment on above: Performed By: #### C ERICK CALVO, ANEU, ADIFF, GFR, TROPHS, APTT, PRO, CBC #### [place] [address] Hematocrit (Bld) [Volume fraction] 28.7 % Low 40.0-52.0 [facility] Comment on above: Performed By: #### C ERICK CALVO, ANEU, ADIFF, GFR, TROPHS, APTT, PRO, CBC #### [place] [address] Hgb 9.5 G/dL Low 13.0-17.5 [facility] Comment on above: Performed By: #### C ERICK CALVO, ANEU, ADIFF, GFR, TROPHS, APTT, PRO, CBC #### [place] [id number] MCH (RBC) [Entitic mass] 30.1 pg Normal 27.0-33.0 [facility] Comment on above: Performed By: #### C ERICK CALVO, ANEU, ADIFF, GFR, TROPHS, APTT, PRO, CBC #### [place] [address] MCHC 33.2 G/dL Normal 32.0-36.0 [facility] Comment on above: Performed By: #### C ERICK CALVO, ANEU, ADIFF, GFR, TROPHS, APTT, PRO, CBC #### [place] [address] MCV (RBC) [Entitic vol] 90.7 fL Normal 81.0-100.0 [facility] Comment on above: Performed By: #### C ERICK CALVO, ANEU, ADIFF, GFR, TROPHS, APTT, PRO, CBC #### [place] [address] Platelet 147 10 3/mcL Low 150-450 [facility] Comment on above: Performed By: #### C ERICK CALVO, ANEU, ADIFF, GFR, TROPHS, APTT, PRO, CBC #### [place] [address] Platelet mean volume (Bld) [Entitic vol] 7.4 fL Normal 6.4-10.5 [facility] Comment on above: Performed By: #### C ERICK CALVO, ANEU, ADIFF, GFR, TROPHS, APTT, PRO, CBC #### [place] [address] RBC 3.16 10 6/mcL Low 4.50-6.00 [facility] Comment on above: Performed By: #### C ERICK CALVO, ANEU, ADIFF, GFR, TROPHS, APTT, PRO, CBC #### [place] [id number] WBC 2.7 10 3/mcL Low 4.5-10.8 [facility] Comment on above: Performed By: #### C ERICK CALVO, ANEU, ADIFF, GFR, TROPHS, APTT, PRO, CBC #### [address] [address] CMPon 09-07-2024 Albumin Level 3.5 G/dL Normal 3.2-4.8 [facility] Comment on above: Performed By: #### C ERICK CALVO, ANEU, ADIFF, GFR, TROPHS, APTT, PRO, CBC ####[place] [address] Albumin/Globulin [Mass ratio] 1.0 {ratio} Normal 0.9-1.6 [facility] Comment on above: Performed By: #### C ERICK CALVO, ANEU, ADIFF, GFR, TROPHS, APTT, PRO, CBC ####[address] [address] ALP [Catalytic activity/Vol] 61 U/L Normal 38-126 [facility] Comment on above: Performed By: #### C ERICK CALVO, ANEU, ADIFF, GFR, TROPHS, APTT, PRO, CBC ####[address] [address] ALT [Catalytic activity/Vol] 18 U/L Normal 12-55 [facility] Comment on above: Performed By: #### C ERICK CALVO, ANEU, ADIFF, GFR, TROPHS, APTT, PRO, CBC ####[address] [address] AST [Catalytic activity/Vol] 29 U/L Normal 8-34 [facility] Comment on above: Performed By: #### C ERICK CALVO, ANEU, ADIFF, GFR, TROPHS, APTT, PRO, CBC ####[address] [address] Bili Total 0.40 mg/dL Normal 0.20-1.20 [facility] Comment on above: Result Comment: Use of this assay is not recommended for patients undergoing treatment with eltrombopag due to the potential for falsely elevated results. Performed By: #### C ERICK CALVO, ANEU, ADIFF, GFR, TROPHS, APTT, PRO, CBC ####[place] [address] BUN/Creatinine Ratio 20.6 ratio Normal 10.0-22.0 [facility] Comment on above: Performed By: #### C ERICK CALVO, ANEU, ADIFF, GFR, TROPHS, APTT, PRO, CBC ####[place] [address] Calcium [Mass/Vol] 9.6 mg/dL Normal 8.7-10.4 [facility] Comment on above: Performed By: #### C ERICK CALVO, ANEU, ADIFF, GFR, TROPHS, APTT, PRO, CBC ####[place] [address] Chloride [Moles/Vol] 108 mmol/L Normal 98-110 [facility] Comment on above: Performed By: #### C ERICK CALVO, ANEU, ADIFF, GFR, TROPHS, APTT, PRO, CBC ####[place] [id number] CO2 [Moles/Vol] 26 mmol/L Normal 22-32 [facility] Comment on above: Performed By: #### C ERICK CALVO, ANEU, ADIFF, GFR, TROPHS, APTT, PRO, CBC ####[place] [address] Creatinine [Mass/Vol] 1.31 mg/dL Normal 0.60-1.40 [facility] Comment on above: Result Comment: Test ing performed on [employer] Playbook analyzer using enzymatic creatinine methodology. Performed By: #### C ERICK CALVO, ANEU, ADIFF, GFR, TROPHS, APTT, PRO, CBC ####[place] [address] Electrolyte Balance 6.0 mEq/L Normal 4.0-15.0 [facility] Comment on above: Performed By: #### C ERICK CALVO, ANEU, ADIFF, GFR, TROPHS, APTT, PRO, CBC ####[address] [address] Globulin 3.5 G/dL Normal 1.5-3.8 [facility] Comment on above: Performed By: #### C ERICK CALVO, ANEU, ADIFF, GFR, TROPHS, APTT, PRO, CBC ####[address] [address] Glucose [Mass/Vol] 99 mg/dL Normal 82-115 [facility] Comment on above: Performed By: #### C ERICK CALVO, ANEU, ADIFF, GFR, TROPHS, APTT, PRO, CBC ####[address] [address] Potassium [Moles/Vol] 4.1 mmol/L Normal 3.5-5.0 [facility] Comment on above: Performed By: #### C ERICK CALVO, ANEU, ADIFF, GFR, TROPHS, APTT, PRO, CBC ####[address] [address] Sodium [Moles/Vol] 140 mmol/L Normal 136-145 [facility] Comment on above: Performed By: #### C ERICK CALVO, ANEU, ADIFF, GFR, TROPHS, APTT, PRO, CBC ####[address] [address] Total Protein 7.0 G/dL Normal 5.7-8.2 [facility] Comment on above: Performed By: #### C ERICK CALVO, ANEU, ADIFF, GFR, TROPHS, APTT, PRO, CBC ####[address] [address] Urea nitrogen [Mass/Vol] 27.0 mg/dL High 8.0-22.0 [facility] Comment on above: Performed By: #### C ERICK CALVO, ANEU, ADIFF, GFR, TROPHS, APTT, PRO, CBC ####[id number] [place] [address] CT HEAD OR BRAIN W/O CONTRAS Ton [...] 09/07/2024 8:25:53 AM Ordering Provider: LUCY Hackett [facility] LABORATORYOrdered By: [place] on [...] ng/L Male: 0-54 ng/L Testing performed on [employer] IM analyzer using direct chemiluminescent technology. Albumin [...] above: Interpretive Data: T esting performed on Fed Playbook analyzer using enzymatic creatinine methodology. Electrolyte Balance [...] s Normal 9.0 - 1 4.4 seconds [facility] Comment on above: Interpretive Data: E ffective 03/19/08, Protime results may be affected by some antibiotics (i.e. Ciprofloxacin, Azithromycin, Bactrim) which may potentiate the action of oral anticoagulants, with further increases in Protime/INR. PT International Ratio 1.2 ratio Invalid Interpretation Code [facility] Comment on above: Interpretive Data: Darren gu [employer] (CHEST, 1992, 102:312S-25S) [...] ng/L Male: 0-54 ng/L Testing performed on [employer] IM analyzer using direct chemiluminescent technology. Urea nitrogen [Mass/Vol] 27.0 mg/dL High 8.0 - 22.0 mg/dL ADM SS Urea nitrogen/Creatinine [Mass ratio] 20.6 ratio Normal 10.0 - 22.0 ratio ADM SS WBC (Bld) [#/Vol] 2.7 103/mcL Low 4.5 - 10.8 10^3/mcL AH Workflow SS PROon 09-07-2024 INR Coag (PPP) [Relative time] 1.2 {INR} Normal [facility] Comment on above: Result Comment: [employer] (CHEST, 1992, 102:312S-25S) recommended therapeutic range for oral anticoagulant therapy is: LOW RISK: Prophylaxis of venous thrombosis INR: 2.0-3.0 Treatment of pulmonary embolism 2.0-3.0 Prevention of systemic embolism 2.0-3.0 HIGH RISK: Mechanical prosthetic valves 2.5-3.5 Performed By: #### C ERICK CALVO, ANEU, ADIFF, GFR, TROPHS, APTT, PRO, CBC ####[address] [address] PT Coag (PPP) [Time] 13.7 s Normal 9.0-14.4 [facility] Comment on above: Result Comment: Effe ctive 03/19/08, Protime results may be affected by some antibiotics (i.e. Ciprofloxacin, Azithromycin, Bactrim) which may potentiate the action of oral anticoagulants, with further increases in Protime/INR. Performed By: #### C ERICK CALVO, ANEU, ADIFF, GFR, TROPHS, APTT, PRO, CBC ####[address] [address] TROPHSon 09-07-2024 High Sensitivity Troponin I 11 ng/L Normal 0-54 [facility] Comment on above: Result Comment: High Sensitive Troponin I Reference Ranges: Female: 0-34 ng/L Male: 0-54 ng/L Testing performed on [employer] Information IM analyzer using direct chemiluminescent technology. Performed By: #### T JANNY ####[address] [address] High Sensitivity Troponin I 11 ng/L Normal 0-54 [facility] Comment on above: Result Comment: High Sensitive Troponin I Reference Ranges: Female: 0-34 ng/L Male: 0-54 ng/L Testing performed on Eve analyzer using direct chemiluminescent technology. Performed By: #### C MP, MDW, ANEU, ADIFF, GFR, TROPHS, APTT, PRO, CBC #### [place] [address] UAon 09-07-2024 Color (U) Yellow Normal [facility] Comment on above: Performed By: #### U A ####[place] [address] Glucose (U) [Mass/Vol] mg/dL Abnormal Negative [facility] Comment on above: Performed By: #### U A ####[place] [address] Ketones Ql (U) Negative Normal Neg-Trace [facility] Comment on above: Performed By: #### U A ####[place] [address] UA Appear Clear Normal Clear [facility] Comment on above: Performed By: #### U A ####[place] [address] UA Blood Negative Normal Neg-Trace [facility] Comment on above: Performed By: #### U A ####[place] [address] UA Leuk Est Negative Normal Negative [facility] Comment on above: Performed By: #### U A ####[place] [address] UA Nitrite Negative Normal Negative [facility] Comment on above: Performed By: #### U A ####[place] [address] UA pH 6.0 Normal 5.0 - 8.0 [facility] Comment on above: Performed By: #### U A ####[place] [address] UA Protein Negative Normal Negative [facility] Comment on above: Performed By: #### U A ####[facility] [place] [address] UA Spec Grav 1.015 Normal 1.006-1.029 [facility] Comment on above: Performed By: #### U A ####[facility] [place] [address] UA Specimen Type Clean Catch Normal [facility] Comment on above: Performed By: #### U A ####[facility] [place] [id number] UA Urobilinogen 0.2 E.U./dL Normal 0.2-1.0 [facility] Comment on above: Performed By: #### U A ####[place] [address] Urobilinogen (U) [Mass/Vol] Negative Normal Neg-Trace [facility] Comment on above: Performed By: #### U A ####[place] [address] XR CHEST 1 VIEWon 09-07-2024 XR CHEST [...] 09/07/2024 7:29:17 AM Ordering Provider: LUCY WALLER [facility] Brain W/WO Contraston 2023 Brain W/WO Contrast [facility] Services [address] [place] [id number] Brain W/WO Contrast MR#: [id number] Acct: [id number] Name: JAYLEN GALAVIZ Rep #: [id number] : 1935 M 89 From: David Hernandez MD PCP: Dr. Jaki Fleming, Status: REG CLI Study: Brain W/WO Contrast Date of Exam: 08/21/24 Exam# [id number] Ordering Dr: Ezekiel Mcdowell MD [id number] EXAM: MR HEAD WITHOUT AND WITH INTRAVENOUS [...] Ezekiel Mcdowell MD; Dr. Jaki Fleming DO [employer] Tender: Signed Normal [facility] CREATININE FINGERSTICKon CREATININE WB < 1.0 Normal 0.70-1.30 [facility] Comment on above: Performed By: #### L 9100.0200 #### [facility] [address] [place], [address] EGFR WB > 60.0000 Normal >60 [facility] Comment on above: Performed By: #### L 9100.0200 #### [facility] [address] [place], [address] .Auto Diffon 08-01-2024 Basophil, Absolute 0.1 10 3/mcL Normal 0.0-0.2 [facility] Comment on above: Performed By: #### A DIFF, ANEU, CMP, GFR, CBC #### [address] [address] Basophils/100 WBC (Bld) 1.7 % Normal 0.0-2.5 [facility] Comment on above: Performed By: #### A DIFF, ANEU, CMP, GFR, CBC #### [address] [address] Eosinophil, Absolute 0.2 10 3/mcL Normal 0.0-0.7 [facility] Comment on above: Performed By: #### A DIFF, ANEU, CMP, GFR, CBC #### [address] [address] Eosinophils/100 WBC (Bld) 7.2 % High 0.0-7.0 [facility] Comment on above: Performed By: #### A DIFF, ANEU, CMP, GFR, CBC #### [address] [address] Lymphocyte, Absolute 0.4 10 3/mcL Low 0.9-4.3 [facility] Comment on above: Performed By: #### A DIFF, ANEU, CMP, GFR, CBC #### [address] [address] Lymphocytes/100 WBC (Bld) 13.3 % Low 20.0-40.0 [facility] Comment on above: Performed By: #### A DIFF, ANEU, CMP, GFR, CBC #### [address] [address] Monocyte, Absolute 0.6 10 3/mcL Normal 0.1-1.4 [facility] Comment on above: Performed By: #### A DIFF, ANEU, CMP, GFR, CBC #### [address] [address] Monocytes/100 WBC (Bld) 17.4 % High 2.0-13.0 [facility] Comment on above: Performed By: #### A DIFF, ANEU, CMP, GFR, CBC #### [address] [address] Neutrophils/100 WBC (Bld) 60.4 % Normal 50.0-75.0 [facility] Comment on above: Performed By: #### A DIFF, ANEU, CMP, GFR, CBC #### [address] [address] .GFRon 08-01-2024 GFR 64 ml/min/1.73sqm Normal [facility] Comment on above: Result Comment: GFR [...] A DIFF, ANEU, CMP, GFR, CBC #### [address] [address] GFR Non- 53 ml/min/1.73sqm Normal [facility] Comment on above: Result Comment: GFR [...] A DIFF, ANEU, CMP, GFR, CBC #### [place] [address] .NEUABSon 08-01-2024 Neutrophil, Absolute 1.9 10 3/mcL Low 2.3-8.1 [facility] Comment on above: Performed By: #### A DIFF, ANEU, CMP, GFR, CBC #### [place] [address] CBCon 08-01-2024 Erythrocyte distribution width (RBC) [Ratio] 16.6 % High 11.5-15.5 [facility] Comment on above: Performed By: #### A DIFF, ANEU, CMP, GFR, CBC #### [place] [address] Hematocrit (Bld) [Volume fraction] 28.6 % Low 40.0-52.0 [facility] Comment on above: Performed By: #### A DIFF, ANEU, CMP, GFR, CBC #### [place] [address] Hgb 9.4 G/dL Low 13.0-17.5 [facility] Comment on above: Performed By: #### A DIFF, ANEU, CMP, GFR, CBC #### [place] [address] MCH (RBC) [Entitic mass] 30.3 pg Normal 27.0-33.0 [facility] Comment on above: Performed By: #### A DIFF, ANEU, CMP, GFR, CBC #### [address] [address] MCHC 33.0 G/dL Normal 32.0-36.0 [facility] Comment on above: Performed By: #### A DIFF, ANEU, CMP, GFR, CBC #### [address] [address] MCV (RBC) [Entitic vol] 91.9 fL Normal 81.0-100.0 [facility] Comment on above: Performed By: #### A DIFF, ANEU, CMP, GFR, CBC #### [address] [address] Platelet 159 10 3/mcL Normal 150-450 [facility] Comment on above: Performed By: #### A DIFF, ANEU, CMP, GFR, CBC #### [address] [address] Platelet mean volume (Bld) [Entitic vol] 7.6 fL Normal 6.4-10.5 [facility] Comment on above: Performed By: #### A DIFF, ANEU, CMP, GFR, CBC #### [address] [address] RBC 3.11 10 6/mcL Low 4.50-6.00 [facility] Comment on above: Performed By: #### A DIFF, ANEU, CMP, GFR, CBC #### [address] [address] WBC 3.2 10 3/mcL Low 4.5-10.8 [facility] Comment on above: Performed By: #### A DIFF, ANEU, CMP, GFR, CBC #### [address] [address] CMPon 08-01-2024 Albumin Level 3.5 G/dL Normal 3.4-4.8 [facility] Comment on above: Performed By: #### A DIFF, ANEU, CMP, GFR, CBC #### [address] [address] Albumin/Globulin [Mass ratio] 1.1 {ratio} Normal 1.1-2.5 [facility] Comment on above: Performed By: #### A DIFF, ANEU, CMP, GFR, CBC #### [address] [address] ALP [Catalytic activity/Vol] 72 U/L Normal 40-135 [facility] Comment on above: Performed By: #### A DIFF, ANEU, CMP, GFR, CBC #### [address] [address] ALT [Catalytic activity/Vol] 21 U/L Normal 16-63 [facility] Comment on above: Performed By: #### A DIFF, ANEU, CMP, GFR, CBC #### [address] [address] AST [Catalytic activity/Vol] 27 U/L Normal 10-40 [facility] Comment on above: Performed By: #### A DIFF, ANEU, CMP, GFR, CBC #### [address] [address] Bili Total 0.3 mg/dL Normal 0.2-1.0 [facility] Comment on above: Result Comment: Use of this assay is not recommended for patients undergoing treatment with eltrombopag due to the potential for falsely elevated results. Performed By: #### A DIFF, ANEU, CMP, GFR, CBC #### [address] [address] BUN/Creatinine Ratio 20 ratio Normal 7-27 [facility] Comment on above: Performed By: #### A DIFF, ANEU, CMP, GFR, CBC #### [address] [address] Calcium [Mass/Vol] 9.0 mg/dL Normal 8.4-10.2 [facility] Comment on above: Performed By: #### A DIFF, ANEU, CMP, GFR, CBC #### [address] [address] Chloride [Moles/Vol] 99 mmol/L Normal 98-107 [facility] Comment on above: Performed By: #### A DIFF, ANEU, CMP, GFR, CBC #### [place] [address] CO2 [Moles/Vol] 27 mmol/L Normal 23-31 [facility] Comment on above: Performed By: #### A DIFF, ANEU, CMP, GFR, CBC #### [place] [address] Creatinine [Mass/Vol] 1.29 mg/dL Normal 0.70-1.30 [facility] Comment on above: Result Comment: Test ing performed on [employer] Dimension EXL analyzer using a modified kinetic Derrell technique. Performed By: #### A DIFF, ANEU, CMP, GFR, CBC #### [place] [address] Electrolyte Balance 9.0 mEq/L Normal 4.0-15.0 [facility] Comment on above: Performed By: #### A DIFF, ANEU, CMP, GFR, CBC #### [place] [address] Globulin 3.2 G/dL Normal [facility] Comment on above: Performed By: #### A DIFF, ANEU, CMP, GFR, CBC #### [place] [address] Glucose [Mass/Vol] 150 mg/dL High 83-110 [facility] Comment on above: Performed By: #### A DIFF, ANEU, CMP, GFR, CBC #### [place] [address] Potassium [Moles/Vol] 4.5 mmol/L Normal 3.5-5.1 [facility] Comment on above: Performed By: #### A DIFF, ANEU, CMP, GFR, CBC #### [place] [address] Sodium [Moles/Vol] 135 mmol/L Low 136-145 [facility] Comment on above: Performed By: #### A DIFF, ANEU, CMP, GFR, CBC #### [place] [address] Total Protein 6.7 G/dL Normal 6.4-8.2 [facility] Comment on above: Performed By: #### A DIFF, ANEU, CMP, GFR, CBC #### [place] [address] [place], [place] [address] Urea nitrogen [Mass/Vol] 26 mg/dL High 7-18 [facility] Comment on above: Performed By: #### A DIFF, ANEU, CMP, GFR, CBC #### [place] [address] [place], [place] [address] LABORATORYOrdered By: SYSTEM SYSTEM on 08-01-2024 Albumin [...] Carotid Duplex Ultrasoundon 07-24-2024 Carotid Duplex Ultrasound [facility] [address] [place] [address] Carotid Duplex Ultrasound 07/24/24 1407 MR#: [id number] Acct: [id number] Name: JAYLEN GALAVIZ Rep #: [id number] : 1935 89 From: Mariel Garza MD Attending Dr: Dr. Ezekiel Mcdowell MD Status: R EG CLI Ordering Dr: Ezekiel Mcdowell MD Date: 07/24/24 Location: [facility] Sex: M C Admitted: Reason For [...] the left vertebral artery. Procedure Carotid Duplex 74473. 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 Electrolyte Balance [...] (S/P/Bld) [Vol rate/Area] ml/min/1.73sqm Invalid Interpretation Code [facility] Comment on above: Interpretive Data: GFR Population [...] [Vol rate/Area] 60 ml/min/1.73sqm Invalid Interpretation Code [facility] Comment on above: Interpretive Data: GFR Population [...] AH Workflow SS CURon 04-23-2024 CUR Normal [facility] ([place]) LABORATORYOrdered By: Brain Baker on 03-01-2024 Albumin DL <= 20 mg/L (U) [Mass/Vol] 3672 mcg/dL Invalid Interpretation Code AO ADM SS Albumin/Creatinine DL <= 20 mg/L (U) [Mass ratio] 46 mcg/mg High 0 - 30 mcg/mg AO ADM SS Creatinine (U) [Mass/Vol] 79.4 mg/dL Normal 39.0 - 259.0 mg/dL AO ADM SS MALBRon 03-01-2024 U Creatinine 79.4 mg/dL Normal 39.0-259.0 [facility] ([place]) Comment on above: Performed By: #### M ALBR ####[address] [place], [place] [address] U Microalb 3672 mcg/dL Normal [facility] ([place]) Comment on above: Performed By: #### M ALBR ####[address] [place], [place] [address] U Ratio Alb/Cre 46 mcg/mg High 0-30 [facility] ([place]) Comment on above: Performed By: #### M ALBR ####[address] [place], [place] [address] .Auto Diffon 02-24-2024 Basophil, Absolute 0.0 10 3/mcL Normal 0.0-0.2 [facility] ([place]) Comment on above: Performed By: #### A 1C, TSH, CBC, GFR, ADIFF, CMP, VIDH, LIPID, ANEU ####[address] [place], [place] [address]#### FOL, B12 ####[address] [address] Basophils/100 WBC (Bld) 1.0 % Normal 0.0-2.5 [facility] ([place]) Comment on above: Performed By: #### A 1C, TSH, CBC, GFR, ADIFF, CMP, VIDH, LIPID, ANEU ####[place] [address]#### FOL, B12 ####[address] [address] Eosinophil, Absolute 0.2 10 3/mcL Normal 0.0-0.4 [facility] ([place]) Comment on above: Performed By: #### A 1C, TSH, CBC, GFR, ADIFF, CMP, VIDH, LIPID, ANEU ####[place] [address]#### FOL, B12 ####[address] [address] Eosinophils/100 WBC (Bld) 7.6 % High 0.0-7.0 [facility] ([place]) Comment on above: Performed By: #### A 1C, TSH, CBC, GFR, ADIFF, CMP, VIDH, LIPID, ANEU ####[place] [address]#### FOL, B12 ####[address] [address] Lymphocyte, Absolute 0.4 10 3/mcL Low 0.8-3.9 [facility] ([place]) Comment on above: Performed By: #### A 1C, TSH, CBC, GFR, ADIFF, CMP, VIDH, LIPID, ANEU ####[place] [address]#### FOL, B12 ####[address] [address] Lymphocytes/100 WBC (Bld) 11.4 % Normal 10.0-50.0 [facility] ([place]) Comment on above: Performed By: #### A 1C, TSH, CBC, GFR, ADIFF, CMP, VIDH, LIPID, ANEU ####[place] [address]#### FOL, B12 ####[address] [address] Monocyte, Absolute 0.5 10 3/mcL Normal 0.2-1.0 [facility] ([place]) Comment on above: Performed By: #### A 1C, TSH, CBC, GFR, ADIFF, CMP, VIDH, LIPID, ANEU ####[address] [address]#### FOL, B12 ####[address] [address] Monocytes/100 WBC (Bld) 15.2 % High 1.7-13.0 [facility] ([place]) Comment on above: Performed By: #### A 1C, TSH, CBC, GFR, ADIFF, CMP, VIDH, LIPID, ANEU ####[address] [address]#### FOL, B12 ####[address] [address] Neutrophils/100 WBC (Bld) 64.8 % Normal 37.0-80.0 [facility] ([place]) Comment on above: Performed By: #### A 1C, TSH, CBC, GFR, ADIFF, CMP, VIDH, LIPID, ANEU ####[address] [address]#### FOL, B12 ####[address] [address] .GFRon 02-24-2024 GFR 56 ml/min/1.73sqm Normal [facility] ([place]) Comment on above: Result Comment: GFR Population [...] CBC, GFR, ADIFF, CMP, VIDH, LIPID, ANEU ####[address] [address]#### BRANDIN, B12 ####[place] [address] GFR Non- 46 ml/min/1.73sqm Normal [facility] ([place]) Comment on above: Result Comment: GFR Population [...] CBC, GFR, ADIFF, CMP, VIDH, LIPID, ANEU ####[place] [id number]#### BRANDIN, B12 ####[place] [address] .NEUABSon 02-24-2024 Neutrophil, Absolute 2.1 10 3/mcL Low 2.9-6.2 [facility] ([place]) Comment on above: Performed By: #### A 1C, TSH, CBC, GFR, ADIFF, CMP, VIDH, LIPID, ANEU ####[place] [id number]#### FOL, B12 ####[place] [address] A1Con 02-24-2024 HbA1c (Bld) [Mass fraction] 6.9 % High 4.3-6.4 [facility] ([place]) Comment on above: Performed By: #### A 1C, TSH, CBC, GFR, ADIFF, CMP, VIDH, LIPID, ANEU ####[address] [address]#### FOL, B12 ####[address] [address] B12on 02-24-2024 Cobalamin (Vitamin B12) [Mass/Vol] 388 pg/mL Normal 211-911 [facility] ([place]) Comment on above: Performed By: #### A 1C, TSH, CBC, GFR, ADIFF, CMP, VIDH, LIPID, ANEU ####[place] [address]#### FOL, B12 ####[place] [address] CBCon 02-24-2024 Erythrocyte distribution width (RBC) [Ratio] 16.7 % High 11.5-14.5 [facility] ([place]) Comment on above: Performed By: #### A 1C, TSH, CBC, GFR, ADIFF, CMP, VIDH, LIPID, ANEU ####[place] [address]#### FOL, B12 ####[place] [address] Hematocrit (Bld) [Volume fraction] 29.4 % Low 42.0-52.0 [facility] ([place]) Comment on above: Performed By: #### A 1C, TSH, CBC, GFR, ADIFF, CMP, VIDH, LIPID, ANEU ####[place] [address]#### FOL, B12 ####[place] [address] Hgb 9.9 G/dL Low 14.0-18.0 [facility] ([place]) Comment on above: Performed By: #### A 1C, TSH, CBC, GFR, ADIFF, CMP, VIDH, LIPID, ANEU ####[place] [address]#### FOL, B12 ####[place] [id number] MCH (RBC) [Entitic mass] 30.0 pg Normal 27.0-31.2 [facility] ([place]) Comment on above: Performed By: #### A 1C, TSH, CBC, GFR, ADIFF, CMP, VIDH, LIPID, ANEU ####[place] [address]#### FOL, B12 ####[place] [address] MCHC 33.5 G/dL Normal 31.8-35.4 [facility] ([place]) Comment on above: Performed By: #### A 1C, TSH, CBC, GFR, ADIFF, CMP, VIDH, LIPID, ANEU ####[place] [address]#### FOL, B12 ####[place] [address] MCV (RBC) [Entitic vol] 89.5 fL Normal 80.0-94.0 [facility] ([place]) Comment on above: Performed By: #### A 1C, TSH, CBC, GFR, ADIFF, CMP, VIDH, LIPID, ANEU ####[place] [address]#### FOL, B12 ####[place] [address] Platelet 140 10 3/mcL Normal 130-400 [facility] ([place]) Comment on above: Performed By: #### A 1C, TSH, CBC, GFR, ADIFF, CMP, VIDH, LIPID, ANEU ####[place] [address]#### FOL, B12 ####[place] [address] Platelet mean volume (Bld) [Entitic vol] 7.6 fL Normal 7.4-10.4 [facility] ([place]) Comment on above: Performed By: #### A 1C, TSH, CBC, GFR, ADIFF, CMP, VIDH, LIPID, ANEU ####[place] [address]#### FOL, B12 ####[place] [address] RBC 3.28 10 6/mcL Low 4.04-6.13 [facility] ([place]) Comment on above: Performed By: #### A 1C, TSH, CBC, GFR, ADIFF, CMP, VIDH, LIPID, ANEU ####[place] [address]#### FOL, B12 ####[place] [address] WBC 3.3 10 3/mcL Low 4.6-10.8 [facility] ([place]) Comment on above: Performed By: #### A 1C, TSH, CBC, GFR, ADIFF, CMP, VIDH, LIPID, ANEU ####[place] [address]#### BRANDIN, B12 ####[place] [address] CMPon 02-24-2024 Albumin Level 3.6 G/dL Normal 3.4-4.8 [facility] ([place]) Comment on above: Performed By: #### A 1C, TSH, CBC, GFR, ADIFF, CMP, VIDH, LIPID, ANEU ####[place] [address]#### FOL, B12 ####[place] [address] Albumin/Globulin [Mass ratio] 1.1 {ratio} Normal 1.1-2.5 [facility] ([place]) Comment on above: Performed By: #### A 1C, TSH, CBC, GFR, ADIFF, CMP, VIDH, LIPID, ANEU ####[place] [address]#### FOL, B12 ####[place] [address] ALP [Catalytic activity/Vol] 63 U/L Normal 40-135 [facility] ([place]) Comment on above: Performed By: #### A 1C, TSH, CBC, GFR, ADIFF, CMP, VIDH, LIPID, ANEU ####[place] [address]#### FOL, B12 ####[address] [address] ALT [Catalytic activity/Vol] 25 U/L Normal 16-63 [facility] ([place]) Comment on above: Performed By: #### A 1C, TSH, CBC, GFR, ADIFF, CMP, VIDH, LIPID, ANEU ####[place] [address]#### FOL, B12 ####[address] [address] AST [Catalytic activity/Vol] 25 U/L Normal 10-40 [facility] ([place]) Comment on above: Performed By: #### A 1C, TSH, CBC, GFR, ADIFF, CMP, VIDH, LIPID, ANEU ####[place] [address]#### FOL, B12 ####[place] [address] Bili Total 0.4 mg/dL Normal 0.2-1.0 [facility] ([place]) Comment on above: Result Comment: Use of this assay is not recommended for patients undergoing treatment with eltrombopag due to the potential for falsely elevated results. Performed By: #### A 1C, TSH, CBC, GFR, ADIFF, CMP, VIDH, LIPID, ANEU ####[place] [address]#### FOL, B12 ####[place] [address] BUN/Creatinine Ratio 23 ratio Normal 7-27 [facility] ([place]) Comment on above: Performed By: #### A 1C, TSH, CBC, GFR, ADIFF, CMP, VIDH, LIPID, ANEU ####[place] [address]#### FOL, B12 ####[place] [address] Calcium [Mass/Vol] 9.1 mg/dL Normal 8.4-10.2 [facility]placed by [facility] ([place]) Comment on above: Performed By: #### A 1C, TSH, CBC, GFR, ADIFF, CMP, VIDH, LIPID, ANEU ####[place] [address]#### FOL, B12 ####[address] [address] Chloride [Moles/Vol] 101 mmol/L Normal 98-107 [facility] ([place]) Comment on above: Performed By: #### A 1C, TSH, CBC, GFR, ADIFF, CMP, VIDH, LIPID, ANEU ####[place] [address]#### FOL, B12 ####[address] [address] CO2 [Moles/Vol] 28 mmol/L Normal 23-31 [facility] ([place]) Comment on above: Performed By: #### A 1C, TSH, CBC, GFR, ADIFF, CMP, VIDH, LIPID, ANEU ####[place] [address]#### FOL, B12 ####[place] [address] Creatinine [Mass/Vol] 1.45 mg/dL High 0.70-1.30 [facility] ([place]) Comment on above: Performed By: #### A 1C, TSH, CBC, GFR, ADIFF, CMP, VIDH, LIPID, ANEU ####[place] [address]#### FOL, B12 ####[address] [address] Electrolyte Balance 8.0 mEq/L Normal 4.0-15.0 [facility] ([place]) Comment on above: Performed By: #### A 1C, TSH, CBC, GFR, ADIFF, CMP, VIDH, LIPID, ANEU ####[place] [address]#### FOL, B12 ####[place] [address] Globulin 3.3 G/dL Normal [facility] ([place]) Comment on above: Performed By: #### A 1C, TSH, CBC, GFR, ADIFF, CMP, VIDH, LIPID, ANEU ####[address] [address]#### FOL, B12 ####[address] [address] Glucose [Mass/Vol] 145 mg/dL High 83-110 [facility]placed by [facility] ([place]) Comment on above: Performed By: #### A 1C, TSH, CBC, GFR, ADIFF, CMP, VIDH, LIPID, ANEU ####[address] [address]#### FOL, B12 ####[address] [address] Potassium [Moles/Vol] 4.6 mmol/L Normal 3.5-5.1 [facility] ([place]) Comment on above: Performed By: #### A 1C, TSH, CBC, GFR, ADIFF, CMP, VIDH, LIPID, ANEU ####[address] [address]#### FOL, B12 ####[address] [address] Sodium [Moles/Vol] 137 mmol/L Normal 136-145 Replaced by [facility] ([place]) Comment on above: Performed By: #### A 1C, TSH, CBC, GFR, ADIFF, CMP, VIDH, LIPID, ANEU ####[place] [address]#### FOL, B12 ####[address] [address] Total Protein 6.9 G/dL Normal 6.4-8.2 [facility] ([place]) Comment on above: Performed By: #### A 1C, TSH, CBC, GFR, ADIFF, CMP, VIDH, LIPID, ANEU ####[address] [address]#### FOL, B12 ####[address] [address] Urea nitrogen [Mass/Vol] 33 mg/dL High 7-18 [facility] ([place]) Comment on above: Performed By: #### A 1C, TSH, CBC, GFR, ADIFF, CMP, VIDH, LIPID, ANEU ####[id number] [place] [id number]#### FOL, B12 ####[place] [address] FOLon 02-24-2024 Folate 31.39 ng/mL High 5.38-24.00 [facility] ([place]) Comment on above: Performed By: #### A 1C, TSH, CBC, GFR, ADIFF, CMP, VIDH, LIPID, ANEU ####[id number] [place] [id number]#### FOL, B12 ####[place] [address] LABORATORYOrdered By: SYSTEM SYSTEM on 02-24-2024 25-hydroxyvitamin [...] Cholesterol [Mass/Vol] 231 mg/dL High 0-200 [facility] ([place]) Comment on above: Result Comment: Chol esterol Reference Interval:Less than 200 [id number] Borderline high [id number] and above High risk Performed By: #### A 1C, TSH, CBC, GFR, ADIFF, CMP, VIDH, LIPID, ANEU ####[place] [address]#### FOL, B12 ####[address] [address] Cholesterol in HDL [Mass/Vol] 49 mg/dL Normal 40-60 [facility] ([place]) Comment on above: Performed By: #### A 1C, TSH, CBC, GFR, ADIFF, CMP, VIDH, LIPID, ANEU ####[place] [address]#### FOL, B12 ####[place] [address] Cholesterol in LDL [Mass/Vol] 160 mg/dL High 0-130 [facility] ([place]) Comment on above: Performed By: #### A 1C, TSH, CBC, GFR, ADIFF, CMP, VIDH, LIPID, ANEU ####[place] [address]#### FOL, B12 ####[address] [address] Triglyceride [Mass/Vol] 109 mg/dL Normal 0-150 [facility] ([place]) Comment on above: Result Comment: Trig lyceride Reference Interval:Less than 150 [id number] Borderline high [id number] High nowy676 or higher Very high risk Performed By: #### A 1C, TSH, CBC, GFR, ADIFF, CMP, VIDH, LIPID, ANEU ####[place] [address]#### FOL, B12 ####[address] [address] TSHon 02-24-2024 TSH Qn 1.49 m[IU]/L Normal 0.36-3.74 [facility] ([place]) Comment on above: Performed By: #### A 1C, TSH, CBC, GFR, ADIFF, CMP, VIDH, LIPID, ANEU ####[place] [address]#### FOL, B12 ####[place] [id number] [place] [address] VIDHon 02-24-2024 Vit. D 25-Hydroxy 96.0 ng/mL Normal [facility] ([place]) Comment on above: Result Comment: Inte rpretive Values Based on Total 25(OH) Vitamin D:Deficient <20 ng/mLInsufficient 20 - <30 ng/mLSufficient 30-100 ng/mL Performed By: #### A 1C, TSH, CBC, GFR, ADIFF, CMP, VIDH, LIPID, ANEU ####[address] [place], [place] [address]#### BRANDIN, B12 ####[place] [address] .Auto Diffon 02-13-2024 Basophil, Absolute 0.0 10 3/mcL Normal 0.0-0.2 [facility] ([place]) Comment on above: Performed By: #### G FR, CMP, CBC, ADIFF, ANEU ####[id number] [place], [place] [address] Basophils/100 WBC (Bld) 1.4 % Normal 0.0-2.5 [facility] ([place]) Comment on above: Performed By: #### G FR, CMP, CBC, ADIFF, ANEU ####[address] [place], [place] [address] Eosinophil, Absolute 0.3 10 3/mcL Normal 0.0-0.4 [facility] ([place]) Comment on above: Performed By: #### G FR, CMP, CBC, ADIFF, ANEU ####[id number] [place], [place] [address] Eosinophils/100 WBC (Bld) 9.1 % High 0.0-7.0 [facility] ([place]) Comment on above: Performed By: #### G FR, CMP, CBC, ADIFF, ANEU ####[id number] [place], [place] [address] Lymphocyte, Absolute 0.4 10 3/mcL Low 0.8-3.9 [facility] ([place]) Comment on above: Performed By: #### G FR, CMP, CBC, ADIFF, ANEU ####[id number] [place], [place] [address] Lymphocytes/100 WBC (Bld) 10.9 % Normal 10.0-50.0 [facility] ([place]) Comment on above: Performed By: #### G FR, CMP, CBC, ADIFF, ANEU ####[address] [place], [place] [address] Monocyte, Absolute 0.5 10 3/mcL Normal 0.2-1.0 [facility] ([place]) Comment on above: Performed By: #### G FR, CMP, CBC, ADIFF, ANEU ####[address] [place], [place] [address] Monocytes/100 WBC (Bld) 14.1 % High 1.7-13.0 [facility] ([place]) Comment on above: Performed By: #### G FR, CMP, CBC, ADIFF, ANEU ####[address] [place], [place] [address] Neutrophils/100 WBC (Bld) 64.5 % Normal 37.0-80.0 [facility] ([place]) Comment on above: Performed By: #### G FR, CMP, CBC, ADIFF, ANEU ####[address] [place], [place] [address] .GFRon 02-13-2024 GFR 65 ml/min/1.73sqm Normal [facility] ([place]) Comment on above: Result Comment: GFR Population [...] FR, CMP, CBC, ADIFF, ANEU ####[address] [place], [place] [address] GFR Non- 54 ml/min/1.73sqm Normal [facility] ([place]) Comment on above: Result Comment: GFR Population [...] FR, CMP, CBC, ADIFF, ANEU ####[address] [place], [place] [address] .NEUABSon 02-13-2024 Neutrophil, Absolute 2.1 10 3/mcL Low 2.9-6.2 [facility] ([place]) Comment on above: Performed By: #### G FR, CMP, CBC, ADIFF, ANEU ####[address] [place], [place] [address] CBCon 02-13-2024 Erythrocyte distribution width (RBC) [Ratio] 16.7 % High 11.5-14.5 [facility] ([place]) Comment on above: Performed By: #### G FR, CMP, CBC, ADIFF, ANEU ####[address] [place], [place] [address] Hematocrit (Bld) [Volume fraction] 32.1 % Low 42.0-52.0 [facility] ([place]) Comment on above: Performed By: #### G FR, CMP, CBC, ADIFF, ANEU ####[address] [place], [place] [address] Hgb 10.4 G/dL Low 14.0-18.0 [facility] ([place]) Comment on above: Performed By: #### G FR, CMP, CBC, ADIFF, ANEU ####[address] [place], [place] [address] MCH (RBC) [Entitic mass] 29.4 pg Normal 27.0-31.2 [facility] ([place]) Comment on above: Performed By: #### G FR, CMP, CBC, ADIFF, ANEU ####[address] [place], [place] [address] MCHC 32.3 G/dL Normal 31.8-35.4 [facility] ([place]) Comment on above: Performed By: #### G FR, CMP, CBC, ADIFF, ANEU ####[address] [place], [place] [address] MCV (RBC) [Entitic vol] 91.0 fL Normal 80.0-94.0 [facility] ([place]) Comment on above: Performed By: #### G FR, CMP, CBC, ADIFF, ANEU ####[address] [place], [place] [address] Platelet 164 10 3/mcL Normal 130-400 [facility] ([place]) Comment on above: Performed By: #### G FR, CMP, CBC, ADIFF, ANEU ####[address] [place], [place] [address] Platelet mean volume (Bld) [Entitic vol] 7.5 fL Normal 7.4-10.4 [facility] ([place]) Comment on above: Performed By: #### G FR, CMP, CBC, ADIFF, ANEU ####[address] [place], [place] [address] RBC 3.53 10 6/mcL Low 4.04-6.13 [facility] ([place]) Comment on above: Performed By: #### G FR, CMP, CBC, ADIFF, ANEU ####[address] [place], [place] [address] WBC 3.3 10 3/mcL Low 4.6-10.8 [facility] ([place]) Comment on above: Performed By: #### G FR, CMP, CBC, ADIFF, ANEU ####[address] [place], [place] [address] CMPon 02-13-2024 Albumin Level 3.5 G/dL Normal 3.4-4.8 [facility] ([place]) Comment on above: Performed By: #### G FR, CMP, CBC, ADIFF, ANEU ####[address] [place], [place] [address] Albumin/Globulin [Mass ratio] 1.0 {ratio} Low 1.1-2.5 [facility] ([place]) Comment on above: Performed By: #### G FR, CMP, CBC, ADIFF, ANEU ####[address] [place], [place] [address] ALP [Catalytic activity/Vol] 77 U/L Normal 40-135 [facility] ([place]) Comment on above: Performed By: #### G FR, CMP, CBC, ADIFF, ANEU ####[address] [place], [place] [address] ALT [Catalytic activity/Vol] 30 U/L Normal 16-63 [facility] ([place]) Comment on above: Performed By: #### G FR, CMP, CBC, ADIFF, ANEU ####[address] [place], [place] [address] AST [Catalytic activity/Vol] 25 U/L Normal 10-40 [facility] ([place]) Comment on above: Performed By: #### G FR, CMP, CBC, ADIFF, ANEU ####[address] [place], [place] [address] Bili Total 0.2 mg/dL Normal 0.2-1.0 [facility] ([place]) Comment on above: Result Comment: Use of this assay is not recommended for patients undergoing treatment with eltrombopag due to the potential for falsely elevated results. Performed By: #### G FR, CMP, CBC, ADIFF, ANEU ####[address] [place], [place] [address] BUN/Creatinine Ratio 25 ratio Normal 7-27 [facility] ([place]) Comment on above: Performed By: #### G FR, CMP, CBC, ADIFF, ANEU ####[address] [place], [place] [address] Calcium [Mass/Vol] 8.7 mg/dL Normal 8.4-10.2 Replaced by [facility] ([place]) Comment on above: Performed By: #### G FR, CMP, CBC, ADIFF, ANEU ####[address] [place], [place] [address] Chloride [Moles/Vol] 103 mmol/L Normal 98-107 [facility] ([place]) Comment on above: Performed By: #### G FR, CMP, CBC, ADIFF, ANEU ####[address] [place], [place] [address] CO2 [Moles/Vol] 27 mmol/L Normal 23-31 [facility] ([place]) Comment on above: Performed By: #### G FR, CMP, CBC, ADIFF, ANEU ####[address] [place], [place] [address] Creatinine [Mass/Vol] 1.27 mg/dL Normal 0.70-1.30 [facility] ([place]) Comment on above: Performed By: #### G FR, CMP, CBC, ADIFF, ANEU ####[address] [place], [place] [address] Electrolyte Balance 9.0 mEq/L Normal 4.0-15.0 [facility] ([place]) Comment on above: Performed By: #### G FR, CMP, CBC, ADIFF, ANEU ####[address] [place], [place] [address] Globulin 3.5 G/dL Normal [facility] ([place]) Comment on above: Performed By: #### G FR, CMP, CBC, ADIFF, ANEU ####[address] [place], [place] [address] Glucose [Mass/Vol] 194 mg/dL High 83-110 Replaced by [facility] ([place]) Comment on above: Performed By: #### G FR, CMP, CBC, ADIFF, ANEU ####[address] [place], [place] [address] Potassium [Moles/Vol] 4.0 mmol/L Normal 3.5-5.1 [facility] ([place]) Comment on above: Performed By: #### G FR, CMP, CBC, ADIFF, ANEU ####[address] [place], [place] [address] Sodium [Moles/Vol] 139 mmol/L Normal 136-145 Replaced by [facility] ([place]) Comment on above: Performed By: #### Carrie FR, CMP, CBC, ADIFF, ANEU ####[address] [place], [place] [address] Total Protein 7.0 G/dL Normal 6.4-8.2 [facility] ([place]) Comment on above: Performed By: #### Carrie FR, CMP, CBC, ADIFF, ANEU ####[address] [place], [place] [address] Urea nitrogen [Mass/Vol] 32 mg/dL High 7-18 [facility] ([place]) Comment on above: Performed By: #### Carrie FR, CMP, CBC, ADIFF, ANEU ####[address] [place], [place] [address] LABORATORYOrdered By: SYSTEM SYSTEM on 02-13-2024 Albumin [...] Workflow SS CNOVon 02-11-2024 CNOV Office Visit ([facility] ) -------- JAYLEN GALAVIZ ([id number]) 1935 M Date Time Provider Department 02/11/24 2:05 PM BARRETT HUFF [facility] During your visit today, we recorded [...] of infection (more content not included)... Normal [facility] NM MYOCARDIAL SPECT STRESS/R ESTon 11-22-2023 NM MYOCARDIAL SPECT STRESS/REST Normal [facility] ([place]) XR ABDOMEN APon 11-18-2023 XR ABDOMEN AP Normal [facility] ([place]) .Auto Diffon 11-17-2023 Basophil, Absolute 0.0 10 3/mcL Normal 0.0-0.2 [facility] ([place]) Comment on above: Performed By: #### G FR, CMP, ANEU, CBC, ADIFF ####[address] [place], [place] [address] Basophils/100 WBC (Bld) 0.9 % Normal 0.0-2.5 [facility] ([place]) Comment on above: Performed By: #### G FR, CMP, ANEU, CBC, ADIFF ####[address] [place], [place] [address] Eosinophil, Absolute 0.2 10 3/mcL Normal 0.0-0.4 [facility] ([place]) Comment on above: Performed By: #### G FR, CMP, ANEU, CBC, ADIFF ####[address] [place], [place] [address] Eosinophils/100 WBC (Bld) 7.2 % High 0.0-7.0 [facility] ([place]) Comment on above: Performed By: #### G FR, CMP, ANEU, CBC, ADIFF ####[address] [place], [place] [address] Lymphocyte, Absolute 0.4 10 3/mcL Low 0.8-3.9 [facility] ([place]) Comment on above: Performed By: #### G FR, CMP, ANEU, CBC, ADIFF ####[address] [place], [place] [address] Lymphocytes/100 WBC (Bld) 12.7 % Normal 10.0-50.0 [facility] ([place]) Comment on above: Performed By: #### G FR, CMP, ANEU, CBC, ADIFF ####[address] [place], [place] [address] Monocyte, Absolute 0.3 10 3/mcL Normal 0.2-1.0 [facility] ([place]) Comment on above: Performed By: #### G FR, CMP, ANEU, CBC, ADIFF ####[address] [place], [place] [address] Monocytes/100 WBC (Bld) 10.1 % Normal 1.7-13.0 [facility] ([place]) Comment on above: Performed By: #### G FR, CMP, ANEU, CBC, ADIFF ####[address] [place], [place] [address] Neutrophils/100 WBC (Bld) 69.1 % Normal 37.0-80.0 [facility] ([place]) Comment on above: Performed By: #### G FR, CMP, ANEU, CBC, ADIFF ####[address] [place], [place] [address] .GFRon 11-17-2023 GFR Non- 51 ml/min/1.73sqm Normal [facility] ([place]) Comment on above: Result Comment: GFR Population [...] G FR, CMP, ANEU, CBC, ADIFF ####[address] [place], [place] [address] GFR 62 ml/min/1.73sqm Normal [facility] ([place]) Comment on above: Result Comment: GFR Population [...] G FR, CMP, ANEU, CBC, ADIFF ####[address] [place], [place] [address] .NEUABSon 11-17-2023 Neutrophil, Absolute 2.3 10 3/mcL Low 2.9-6.2 [facility] ([place]) Comment on above: Performed By: #### G FR, CMP, ANEU, CBC, ADIFF ####[address] [place], [place] [address] CBCon 11-17-2023 Erythrocyte distribution width (RBC) [Ratio] 16.8 % High 11.5-14.5 [facility] ([place]) Comment on above: Performed By: #### G FR, CMP, ANEU, CBC, ADIFF ####[address] [place], [place] [address] Hematocrit (Bld) [Volume fraction] 28.3 % Low 42.0-52.0 [facility] ([place]) Comment on above: Performed By: #### G FR, CMP, ANEU, CBC, ADIFF ####[address] [place], [place] [address] Hgb 9.5 G/dL Low 14.0-18.0 [facility] ([place]) Comment on above: Performed By: #### G FR, CMP, ANEU, CBC, ADIFF ####[address] [place], [place] [address] MCH (RBC) [Entitic mass] 30.5 pg Normal 27.0-31.2 [facility] ([place]) Comment on above: Performed By: #### G FR, CMP, ANEU, CBC, ADIFF ####[address] [place], [place] [address] MCHC 33.5 G/dL Normal 31.8-35.4 [facility] ([place]) Comment on above: Performed By: #### G FR, CMP, ANEU, CBC, ADIFF ####[address] [place], [place] [address] MCV (RBC) [Entitic vol] 90.9 fL Normal 80.0-94.0 [facility] ([place]) Comment on above: Performed By: #### G FR, CMP, ANEU, CBC, ADIFF ####[address] [place], [place] [address] Platelet 162 10 3/mcL Normal 130-400 [facility] ([place]) Comment on above: Performed By: #### G FR, CMP, ANEU, CBC, ADIFF ####[address] [place], [place] [address] Platelet mean volume (Bld) [Entitic vol] 7.7 fL Normal 7.4-10.4 [facility] ([place]) Comment on above: Performed By: #### G FR, CMP, ANEU, CBC, ADIFF ####[address] [place], [place] [address] RBC 3.12 10 6/mcL Low 4.04-6.13 [facility] ([place]) Comment on above: Performed By: #### G FR, CMP, ANEU, CBC, ADIFF ####[address] [place], [place] [address] WBC 3.4 10 3/mcL Low 4.6-10.8 [facility] ([place]) Comment on above: Performed By: #### G FR, CMP, ANEU, CBC, ADIFF ####[address] [place], [place] [address] CMPon 11-17-2023 Albumin Level 3.5 G/dL Normal 3.4-4.8 [facility] ([place]) Comment on above: Performed By: #### G FR, CMP, ANEU, CBC, ADIFF ####[address] [place], [place] [address] Albumin/Globulin [Mass ratio] 1.1 {ratio} Normal 1.1-2.5 [facility] ([place]) Comment on above: Performed By: #### G FR, CMP, ANEU, CBC, ADIFF ####[address] [place], [place] [address] ALP [Catalytic activity/Vol] 78 U/L Normal 40-135 [facility] ([place]) Comment on above: Performed By: #### G FR, CMP, ANEU, CBC, ADIFF ####[address] [place], [place] [address] ALT [Catalytic activity/Vol] 30 U/L Normal 16-63 [facility] ([place]) Comment on above: Performed By: #### G FR, CMP, ANEU, CBC, ADIFF ####[address] [place], [place] [address] AST [Catalytic activity/Vol] 33 U/L Normal 10-40 [facility] ([place]) Comment on above: Performed By: #### G FR, CMP, ANEU, CBC, ADIFF ####[address] [place], [place] [address] Bili Total 0.3 mg/dL Normal 0.2-1.0 [facility] ([place]) Comment on above: Result Comment: Use of this assay is not recommended for patients undergoing treatment with eltrombopag due to the potential for falsely elevated results. Performed By: #### G FR, CMP, ANEU, CBC, ADIFF ####[address] [place], [place] [address] BUN/Creatinine Ratio 24 ratio Normal 7-27 [facility] ([place]) Comment on above: Performed By: #### G FR, CMP, ANEU, CBC, ADIFF ####[address] [place], [place] [address] Calcium [Mass/Vol] 9.3 mg/dL Normal 8.4-10.2 Replaced by [facility] ([place]) Comment on above: Performed By: #### Carrie FR, CMP, ANEU, CBC, ADIFF ####[address] [place], [place] [address] Chloride [Moles/Vol] 104 mmol/L Normal 98-107 [facility] ([place]) Comment on above: Performed By: #### G FR, CMP, ANEU, CBC, ADIFF ####[address] [place], [place] [address] CO2 [Moles/Vol] 25 mmol/L Normal 23-31 [facility] ([place]) Comment on above: Performed By: #### G FR, CMP, ANEU, CBC, ADIFF ####[address] [place], [place] [address] Creatinine [Mass/Vol] 1.33 mg/dL High 0.70-1.30 [facility] ([place]) Comment on above: Performed By: #### G FR, CMP, ANEU, CBC, ADIFF ####[address] [place], [place] [address] Electrolyte Balance 9.0 mEq/L Normal 4.0-15.0 [facility] ([place]) Comment on above: Performed By: #### G FR, CMP, ANEU, CBC, ADIFF ####[address] [place], [place] [address] Globulin 3.2 G/dL Normal [facility] ([place]) Comment on above: Performed By: #### G FR, CMP, ANEU, CBC, ADIFF ####[address] [place], [place] [address] Glucose [Mass/Vol] 138 mg/dL High 83-110 Replaced by [facility] ([place]) Comment on above: Performed By: #### G FR, CMP, ANEU, CBC, ADIFF ####[address] [place], [place] [address] Potassium [Moles/Vol] 4.4 mmol/L Normal 3.5-5.1 [facility] ([place]) Comment on above: Performed By: #### G FR, CMP, ANEU, CBC, ADIFF ####[address] [place], [place] [address] Sodium [Moles/Vol] 138 mmol/L Normal 136-145 Replaced by [facility] ([place]) Comment on above: Performed By: #### G FR, CMP, ANEU, CBC, ADIFF ####[address] [place], [place] [address] Total Protein 6.7 G/dL Normal 6.4-8.2 [facility] ([place]) Comment on above: Performed By: #### G FR, CMP, ANEU, CBC, ADIFF ####[address] [place], [place] [address] Urea nitrogen [Mass/Vol] 32 mg/dL High 7-18 [facility] ([place]) Comment on above: Performed By: #### G FR, CMP, ANEU, CBC, ADIFF ####[address] [place], [place] [address] LABORATORYOrdered By: SYSTEM SYSTEM on 11-17-2023 Albumin [...] Basophil, Absolute 0.0 10 3/mcL Normal 0.0-0.3 [facility] ([place]) Comment on above: Performed By: #### C JORDI, ANEU, ADIFF ####[address] [address] Basophils/100 WBC (Bld) 1.1 % Normal 0.0-2.5 [facility] ([place]) Comment on above: Performed By: #### C JORDI, ANEU, ADIFF ####[place] [id number] [place] [address] Eosinophil, Absolute 0.3 10 3/mcL Normal 0.0-0.7 [facility] ([place]) Comment on above: Performed By: #### C LIANG BACON, ADIFF ####[address] [address] Eosinophils/100 WBC (Bld) 8.0 % High 0.0-6.0 [facility] ([place]) Comment on above: Performed By: #### C LIANG BACON, ADIFF ####[address] [address] Lymphocyte, Absolute 0.3 10 3/mcL Low 0.9-4.3 [facility] ([place]) Comment on above: Performed By: #### C LIANG BACON, ADIFF ####[address] [address] Lymphocytes/100 WBC (Bld) 8.1 % Low 20.0-40.0 [facility] ([place]) Comment on above: Performed By: #### C LIANG BACON, ADIFF ####[address] [address] Monocyte, Absolute 0.4 10 3/mcL Normal 0.1-1.4 [facility] ([place]) Comment on above: Performed By: #### C LIANG BACON, ADIFF ####[address] [address] Monocytes/100 WBC (Bld) 13.5 % High 2.0-13.0 [facility] ([place]) Comment on above: Performed By: #### C LIANG BACON, ADIFF ####[address] [address] Neutrophils/100 WBC (Bld) 69.3 % Normal 50.0-75.0 [facility] ([place]) Comment on above: Performed By: #### C JORDI ANEU, ADIFF ####[address] [address] .NEUABSon 11-03-2023 Neutrophil, Absolute 2.2 10 3/mcL Low 2.3-8.1 [facility] ([place]) Comment on above: Performed By: #### C LIANG BACON, ADIFF ####[place] [address] APTTon 11-03-2023 aPTT Coag (Bld) [Time] 30.3 s Normal 25.0-35.0 [facility] ([place]) Comment on above: Result Comment: For Heparin anticoagulation therapy, the recommendedtherapeutic range is: 54-77 seconds (APTT Correlationwith Anti-Xa therapeutic range of 0.3-0.7 units/ml).PLEASE REFERENCE THE PHARMACY PROTOCOL FOR DOSING. Performed By: #### F IB, PRO ####[place] [address] Heparin dose (APTT) Unknown Normal [facility] ([place]) Comment on above: Performed By: #### F DESMOND, PRO ####[place] [address] CBCon 11-03-2023 Erythrocyte distribution width (RBC) [Ratio] 16.6 % High 11.5-15.5 [facility] ([place]) Comment on above: Performed By: #### C LIANG BACON, ADIFF ####[place] [address] Hematocrit (Bld) [Volume fraction] 30.2 % Low 40.0-52.0 [facility] ([place]) Comment on above: Performed By: #### C LIANG BACON, ADIFF ####[place] [address] Hgb 9.9 G/dL Low 13.0-17.5 [facility] ([place]) Comment on above: Performed By: #### C LIANG BACON, ADIFF ####[place] [address] MCH (RBC) [Entitic mass] 30.4 pg Normal 27.0-33.0 [facility] ([place]) Comment on above: Performed By: #### C LIANG BACON, ADIFF ####[place] [address] MCHC 32.8 G/dL Normal 32.0-36.0 [facility] ([place]) Comment on above: Performed By: #### C LIANG BACON, ADIFF ####[place] [id number] [place] [address] MCV (RBC) [Entitic vol] 92.6 fL Normal 81.0-100.0 [facility] ([place]) Comment on above: Performed By: #### C BC, ANEU, ADIFF ####[place] [address] [place] [address] Platelet 168 10 3/mcL Normal 150-450 [facility] ([place]) Comment on above: Performed By: #### C BC, ANEU, ADIFF ####[place] [address] [place] [address] Platelet mean volume (Bld) [Entitic vol] 7.4 fL Normal 6.4-10.5 [facility] ([place]) Comment on above: Performed By: #### C BC, ANEU, ADIFF ####[place] [address] RBC 3.27 10 6/mcL Low 4.50-6.00 [facility] ([place]) Comment on above: Performed By: #### C BC, ANEU, ADIFF ####[place] [address] WBC 3.1 10 3/mcL Low 4.5-10.8 [facility] ([place]) Comment on above: Performed By: #### C BC, ANEU, ADIFF ####[place] [address] FIBon 11-03-2023 Fibrinogen 546 mg/dL Normal 250-560 [facility] ([place]) Comment on above: Performed By: #### F IB, PRO ####[address] [address] LABORATORYOrdered By: Neel Kenny on 11-03-2023 Blood Glucose Testing Reason Routine (11/03/23 3:12 PM) [facility] Work Phone: Glucose [Mass/Vol] 140 mg/dL High 82 - 115 mg/dL [facility] Work Phone: LABORATORYOrdered By: Lavon Clayton on 02-29-2024 Glucose [Mass/Vol] 141 mg/dL High 82 - 115 mg/dL [facility] Work Phone: LABORATORYOrdered By: Beverly Kwan on 11-03-2023 aPTT Coag (Bld) [Time] 30.3 s Normal 25.0 - 35.0 seconds [facility] Comment on above: Interpretive Data: F or Heparin anticoagulation therapy, the recommended therapeutic range is: 54-77 seconds (APTT Correlation with Anti-Xa therapeutic range of 0.3-0.7 units/ml). PLEASE REFERENCE THE PHARMACY PROTOCOL FOR DOSING. Fibrinogen 546 mg/dL Normal 250 - 560 mg/dL [facility] Heparin dose (APTT) Unknown (11/03/23 11:45 AM) Normal Coagulation S PT Coag (PPP) [Time] 11.9 s Normal 9.0 - 1 4.2 seconds [facility] Comment on above: Interpretive Data: E ffective 03/19/08, Protime results may be affected by some antibiotics (i.e. Ciprofloxacin, Azithromycin, Bactrim) which may potentiate the action of oral anticoagulants, with further increases in Protime/INR. PT International Ratio 1.0 ratio Invalid Interpretation Code [facility] Comment on above: Interpretive Data: Darren gu [employer] (CHEST, 1992, 102:[id number]) [...] Coag (PPP) [Relative time] 1.0 {INR} Normal [facility] ([place]) Comment on above: Result Comment: [employer] (CHEST, 1992, 102:[id number])recommended therapeutic range for oral anticoagulant therapy is:LOW RISK: Prophylaxis of venous thrombosis INR: 2.0-3.0 Treatment of pulmonary embolism 2.0-3.0 Prevention of systemic embolism 2.0-3.0HIGH RISK: Mechanical prosthetic valves 2.5-3.5 Performed By: #### F DESMOND, PRO ####[address] [address] PT Coag (PPP) [Time] 11.9 s Normal 9.0-14.2 [facility] ([place]) Comment on above: Result Comment: Effe ctive 03/19/08, Protime results may be affected by some antibiotics (i.e. Ciprofloxacin, Azithromycin, Bactrim) which may potentiate the action of oral anticoagulants, with further increases in Protime/INR. Performed By: #### F DESMOND, PRO ####[address] [address] XR ABDOMEN APon 11-03-2023 XR ABDOMEN AP Normal [facility]) XR FLUORO 1-2 HRS TECH TIMEo n 11-03-2023 XR FLUORO 1-2 HRS TECH TIME Normal [facility]) CURon 10-26-2023 CUR Normal [facility]) .Auto Diffon 10-18-2023 Basophil, Absolute 0.0 10 3/mcL Normal 0.0-0.3 [facility] ([place]) Comment on above: Performed By: #### G FR, ANEU, BMP, CBC, ADIFF ####[address] [address] Basophils/100 WBC (Bld) 1.2 % Normal 0.0-2.5 [facility] ([place]) Comment on above: Performed By: #### G FR, ANEU, BMP, CBC, ADIFF ####[address] [address] Eosinophil, Absolute 0.3 10 3/mcL Normal 0.0-0.7 [facility] ([place]) Comment on above: Performed By: #### G FR, ANEU, BMP, CBC, ADIFF ####[address] [address] Eosinophils/100 WBC (Bld) 10.8 % High 0.0-6.0 [facility] ([place]) Comment on above: Performed By: #### G FR, ANEU, BMP, CBC, ADIFF ####[address] [address] Lymphocyte, Absolute 0.3 10 3/mcL Low 0.9-4.3 [facility] ([place]) Comment on above: Performed By: #### G FR, ANEU, BMP, CBC, ADIFF ####[address] [address] Lymphocytes/100 WBC (Bld) 11.3 % Low 20.0-40.0 [facility] ([place]) Comment on above: Performed By: #### G FR, ANEU, BMP, CBC, ADIFF ####[address] [address] Monocyte, Absolute 0.5 10 3/mcL Normal 0.1-1.4 [facility] ([place]) Comment on above: Performed By: #### G FR, ANEU, BMP, CBC, ADIFF ####[address] [address] Monocytes/100 WBC (Bld) 18.3 % High 2.0-13.0 [facility] ([place]) Comment on above: Performed By: #### G FR, ANEU, BMP, CBC, ADIFF ####[address] [address] Neutrophils/100 WBC (Bld) 58.4 % Normal 50.0-75.0 [facility] ([place]) Comment on above: Performed By: #### G FR, ANEU, BMP, CBC, ADIFF ####[address] [address] .GFRon 10-18-2023 GFR Non- 60 ml/min/1.73sqm Normal [facility] ([place]) Comment on above: Result Comment: GFR Population [...] #### G FR, ANEU, BMP, CBC, ADIFF ####[place] [address] GFR >60 Normal [facility] ([place]) Comment on above: Result Comment: GFR Population [...] #### G FR, ANEU, BMP, CBC, ADIFF ####[place] [address] .NEUABSon 10-18-2023 Neutrophil, Absolute 1.7 10 3/mcL Low 2.3-8.1 [facility] ([place]) Comment on above: Performed By: #### G FR, ANEU, BMP, CBC, ADIFF ####[place] [address] BMPon 10-18-2023 BUN/Creatinine Ratio 21.7 ratio Normal 10.0-22.0 [facility] ([place]) Comment on above: Performed By: #### G FR, ANEU, BMP, CBC, ADIFF ####[place] [address] Calcium [Mass/Vol] 9.4 mg/dL Normal 8.7-10.4 Replaced by [facility] ([place]) Comment on above: Performed By: #### G FR, ANEU, BMP, CBC, ADIFF ####[address] [address] Chloride [Moles/Vol] 106 mmol/L Normal 98-110 [facility] ([place]) Comment on above: Performed By: #### G FR, ANEU, BMP, CBC, ADIFF ####[address] [address] CO2 [Moles/Vol] 29 mmol/L Normal 22-32 [facility] ([place]) Comment on above: Performed By: #### G FR, ANEU, BMP, CBC, ADIFF ####[address] [address] Creatinine [Mass/Vol] 1.15 mg/dL Normal 0.60-1.40 [facility] ([place]) Comment on above: Performed By: #### G FR, ANEU, BMP, CBC, ADIFF ####[place] [address] Electrolyte Balance 4.0 mEq/L Normal 4.0-15.0 [facility] ([place]) Comment on above: Performed By: #### G FR, ANEU, BMP, CBC, ADIFF ####[place] [address] Glucose [Mass/Vol] 103 mg/dL Normal 82-115 Replaced by [facility] ([place]) Comment on above: Performed By: #### G FR, ANEU, BMP, CBC, ADIFF ####[address] [address] Potassium [Moles/Vol] 4.7 mmol/L Normal 3.5-5.0 [facility] ([place]) Comment on above: Performed By: #### G FR, ANEU, BMP, CBC, ADIFF ####[place] [address] Sodium [Moles/Vol] 139 mmol/L Normal 136-145 Replaced by [facility] ([place]) Comment on above: Performed By: #### G FR, ANEU, BMP, CBC, ADIFF ####[place] [address] Urea nitrogen [Mass/Vol] 25.0 mg/dL High 8.0-22.0 [facility] ([place]) Comment on above: Performed By: #### G FR, ANEU, BMP, CBC, ADIFF ####[place] [address] CBCon 10-18-2023 Erythrocyte distribution width (RBC) [Ratio] 16.7 % High 11.5-15.5 [facility] ([place]) Comment on above: Performed By: #### G FR, ANEU, BMP, CBC, ADIFF ####[place] [address] Hematocrit (Bld) [Volume fraction] 27.8 % Low 40.0-52.0 [facility] ([place]) Comment on above: Performed By: #### G FR, ANEU, BMP, CBC, ADIFF ####[place] [address] Hgb 9.0 G/dL Low 13.0-17.5 [facility] ([place]) Comment on above: Performed By: #### G FR, ANEU, BMP, CBC, ADIFF ####[place] [address] MCH (RBC) [Entitic mass] 30.0 pg Normal 27.0-33.0 [facility] ([place]) Comment on above: Performed By: #### G FR, ANEU, BMP, CBC, ADIFF ####[place] [address] MCHC 32.5 G/dL Normal 32.0-36.0 [facility] ([place]) Comment on above: Performed By: #### G FR, ANEU, BMP, CBC, ADIFF ####[place] [address] MCV (RBC) [Entitic vol] 92.4 fL Normal 81.0-100.0 [facility] ([place]) Comment on above: Performed By: #### G FR, ANEU, BMP, CBC, ADIFF ####[place] [address] Platelet 167 10 3/mcL Normal 150-450 [facility] ([place]) Comment on above: Performed By: #### G FR, ANEU, BMP, CBC, ADIFF ####[place] [address] Platelet mean volume (Bld) [Entitic vol] 7.5 fL Normal 6.4-10.5 [facility] ([place]) Comment on above: Performed By: #### G FR, ANEU, BMP, CBC, ADIFF ####[place] [address] RBC 3.01 10 6/mcL Low 4.50-6.00 [facility] ([place]) Comment on above: Performed By: #### G FR, ANEU, BMP, CBC, ADIFF ####[place] [address] WBC 3.0 10 3/mcL Low 4.5-10.8 [facility] ([place]) Comment on above: Performed By: #### G FR, ANEU, BMP, CBC, ADIFF ####[place] [address] LABORATORYOrdered By: SYSTEM SYSTEM on 10-18-2023 Basophils [...] (S/P/Bld) [Vol rate/Area] ml/min/1.73sqm Invalid Interpretation Code [employer] [facility] S Comment on above: Interpretive Data: [...] [Vol rate/Area] 60 ml/min/1.73sqm Invalid Interpretation Code [employer] Chemistry S Comment on above: Interpretive Data: [...] Basophil, Absolute 0.0 10 3/mcL Normal 0.0-0.2 [facility] ([place]) Comment on above: Performed By: #### C MP, PSA, ADIFF, ANEU, GFR, CBC ####[address] [place], [place] [address] Basophils/100 WBC (Bld) 0.7 % Normal 0.0-2.5 [facility] ([place]) Comment on above: Performed By: #### C MP, PSA, ADIFF, ANEU, GFR, CBC ####[address] [place], [place] [address] Eosinophil, Absolute 0.3 10 3/mcL Normal 0.0-0.4 [facility] ([place]) Comment on above: Performed By: #### C MP, PSA, ADIFF, ANEU, GFR, CBC ####[address] [place], [place] [address] Eosinophils/100 WBC (Bld) 9.4 % High 0.0-7.0 [facility] ([place]) Comment on above: Performed By: #### C MP, PSA, ADIFF, ANEU, GFR, CBC ####[address] [address] Lymphocyte, Absolute 0.3 10 3/mcL Low 0.8-3.9 [facility] ([place]) Comment on above: Performed By: #### C MP, PSA, ADIFF, ANEU, GFR, CBC ####[address] [address] Lymphocytes/100 WBC (Bld) 10.2 % Normal 10.0-50.0 [facility] ([place]) Comment on above: Performed By: #### C MP, PSA, ADIFF, ANEU, GFR, CBC ####[address] [address] Monocyte, Absolute 0.5 10 3/mcL Normal 0.2-1.0 [facility] ([place]) Comment on above: Performed By: #### C MP, PSA, ADIFF, ANEU, GFR, CBC ####[address] [address] Monocytes/100 WBC (Bld) 16.1 % High 1.7-13.0 [facility] ([place]) Comment on above: Performed By: #### C MP, PSA, ADIFF, ANEU, GFR, CBC ####[address] [place], [place] [address] Neutrophils/100 WBC (Bld) 63.6 % Normal 37.0-80.0 [facility] ([place]) Comment on above: Performed By: #### C MP, PSA, ADIFF, ANEU, GFR, CBC ####[address] [place], [place] [address] .GFRon 10-11-2023 GFR 56 ml/min/1.73sqm Normal [facility] ([place]) Comment on above: Result Comment: GFR [...] MP, PSA, ADIFF, ANEU, GFR, CBC ####[address] [place], [place] [address] GFR Non- 46 ml/min/1.73sqm Normal [facility] ([place]) Comment on above: Result Comment: GFR Population [...] MP, PSA, ADIFF, ANEU, GFR, CBC ####[address] [place], [place] [address] .NEUABSon 10-11-2023 Neutrophil, Absolute 2.2 10 3/mcL Low 2.9-6.2 [facility] ([place]) Comment on above: Performed By: #### C MP, PSA, ADIFF, ANEU, GFR, CBC ####[address] [place], [place] [address] CBCon 10-11-2023 Erythrocyte distribution width (RBC) [Ratio] 16.0 % High 11.5-14.5 [facility] ([place]) Comment on above: Performed By: #### C MP, PSA, ADIFF, ANEU, GFR, CBC ####[address] [place], [place] [address] Hematocrit (Bld) [Volume fraction] 25.5 % Low 42.0-52.0 [facility] ([place]) Comment on above: Performed By: #### C MP, PSA, ADIFF, ANEU, GFR, CBC ####[address] [place], [place] [address] Hgb 8.6 G/dL Low 14.0-18.0 [facility] ([place]) Comment on above: Performed By: #### C MP, PSA, ADIFF, ANEU, GFR, CBC ####[address] [place], [place] [address] MCH (RBC) [Entitic mass] 30.7 pg Normal 27.0-31.2 [facility] ([place]) Comment on above: Performed By: #### C MP, PSA, ADIFF, ANEU, GFR, CBC ####[address] [place], [place] [address] MCHC 33.9 G/dL Normal 31.8-35.4 [facility] ([place]) Comment on above: Performed By: #### C MP, PSA, ADIFF, ANEU, GFR, CBC ####[address] [place] [id number] MCV (RBC) [Entitic vol] 90.6 fL Normal 80.0-94.0 [facility] ([place]) Comment on above: Performed By: #### C MP, PSA, ADIFF, ANEU, GFR, CBC ####[address] [place], [place] [address] Platelet 169 10 3/mcL Normal 130-400 [facility] ([place]) Comment on above: Performed By: #### C MP, PSA, ADIFF, ANEU, GFR, CBC ####[address] [place], [place] [address] Platelet mean volume (Bld) [Entitic vol] 7.4 fL Normal 7.4-10.4 [facility] ([place]) Comment on above: Performed By: #### C MP, PSA, ADIFF, ANEU, GFR, CBC ####[address] [place], [place] [address] RBC 2.81 10 6/mcL Low 4.04-6.13 [facility] ([place]) Comment on above: Performed By: #### C MP, PSA, ADIFF, ANEU, GFR, CBC ####[address] [place], [place] [address] WBC 3.4 10 3/mcL Low 4.6-10.8 [facility] ([place]) Comment on above: Performed By: #### C MP, PSA, ADIFF, ANEU, GFR, CBC ####[address] [place], [place] [address] CMPon 10-11-2023 Albumin Level 3.2 G/dL Low 3.4-4.8 [facility] ([place]) Comment on above: Performed By: #### C MP, PSA, ADIFF, ANEU, GFR, CBC ####[address] [place], [place] [address] Albumin/Globulin [Mass ratio] 1.0 {ratio} Low 1.1-2.5 [facility] ([place]) Comment on above: Performed By: #### C MP, PSA, ADIFF, ANEU, GFR, CBC ####[address] [place], [place] [address] ALP [Catalytic activity/Vol] 74 U/L Normal 40-135 [facility] ([place]) Comment on above: Performed By: #### C MP, PSA, ADIFF, ANEU, GFR, CBC ####[address] [place], [place] [address] ALT [Catalytic activity/Vol] 24 U/L Normal 16-63 [facility] ([place]) Comment on above: Performed By: #### C MP, PSA, ADIFF, ANEU, GFR, CBC ####[address] [place], [place] [address] AST [Catalytic activity/Vol] 26 U/L Normal 10-40 [facility] ([place]) Comment on above: Performed By: #### C MP, PSA, ADIFF, ANEU, GFR, CBC ####[address] [place], [place] [address] Bili Total 0.3 mg/dL Normal 0.2-1.0 [facility] ([place]) Comment on above: Result Comment: Use of this assay is not recommended for patients undergoing treatment with eltrombopag due to the potential for falsely elevated results. Performed By: #### C MP, PSA, ADIFF, ANEU, GFR, CBC ####[address] [place], [place] [address] BUN/Creatinine Ratio 19 ratio Normal 7-27 [facility] ([place]) Comment on above: Performed By: #### C MP, PSA, ADIFF, ANEU, GFR, CBC ####[address] [place], [place] [address] Calcium [Mass/Vol] 9.0 mg/dL Normal 8.4-10.2 Replaced by [facility] ([place]) Comment on above: Performed By: #### C MP, PSA, ADIFF, ANEU, GFR, CBC ####[address] [place], [place] [address] Chloride [Moles/Vol] 104 mmol/L Normal 98-107 [facility] ([place]) Comment on above: Performed By: #### C MP, PSA, ADIFF, ANEU, GFR, CBC ####[address] [place], [place] [address] CO2 [Moles/Vol] 30 mmol/L Normal 23-31 [facility] ([place]) Comment on above: Performed By: #### C MP, PSA, ADIFF, ANEU, GFR, CBC ####[address] [place], [place] [address] Creatinine [Mass/Vol] 1.45 mg/dL High 0.70-1.30 [facility] ([place]) Comment on above: Performed By: #### C MP, PSA, ADIFF, ANEU, GFR, CBC ####[address] [place], [place] [address] Electrolyte Balance 6.0 mEq/L Normal 4.0-15.0 [facility] ([place]) Comment on above: Performed By: #### C MP, PSA, ADIFF, ANEU, GFR, CBC ####[address] [place], [place] [address] Globulin 3.3 G/dL Normal [facility] ([place]) Comment on above: Performed By: #### C MP, PSA, ADIFF, ANEU, GFR, CBC ####[address] [place], [place] [address] Glucose [Mass/Vol] 113 mg/dL High 83-110 Replaced by [facility] ([place]) Comment on above: Performed By: #### C MP, PSA, ADIFF, ANEU, GFR, CBC ####[address] [place], [place] [address] Potassium [Moles/Vol] 4.2 mmol/L Normal 3.5-5.1 [facility] ([place]) Comment on above: Performed By: #### C MP, PSA, ADIFF, ANEU, GFR, CBC ####[address] [place], [place] [address] Sodium [Moles/Vol] 140 mmol/L Normal 136-145 Replaced by [facility] ([place]) Comment on above: Performed By: #### C MP, PSA, ADIFF, ANEU, GFR, CBC ####[address] [place], [place] [address] Total Protein 6.5 G/dL Normal 6.4-8.2 [facility] ([place]) Comment on above: Performed By: #### C MP, PSA, ADIFF, ANEU, GFR, CBC ####[address] [place], [place] [address] Urea nitrogen [Mass/Vol] 27 mg/dL High 7-18 [facility] ([place]) Comment on above: Performed By: #### C MP, PSA, ADIFF, ANEU, GFR, CBC ####[address] [place], [place] [address] LABORATORYOrdered By: SYSTEM SYSTEM on 10-11-2023 Albumin [...] 10-11-2023 Prostate Specific Antigen <0.05 Normal 0.00-4.00 [facility] ([place]) Comment on above: Performed By: #### C MP, PSA, ADIFF, ANEU, GFR, CBC ####[address] [place], [place] [address] CURon 09-30-2023 CUR Normal [facility] ([place]) .Auto Diffon 09-28-2023 Basophil, Absolute 0.0 10 3/mcL Normal 0.0-0.3 [facility] ([place]) Comment on above: Performed By: #### C BC, FES, CMP, GFR, ADIFF, FERR, ANEU ####[address] [address] Basophils/100 WBC (Bld) 1.1 % Normal 0.0-2.5 [facility] ([place]) Comment on above: Performed By: #### C BC, FES, CMP, GFR, ADIFF, FERR, ANEU ####[address] [address] Eosinophil, Absolute 0.3 10 3/mcL Normal 0.0-0.7 [facility] ([place]) Comment on above: Performed By: #### C BC, FES, CMP, GFR, ADIFF, FERR, ANEU ####[address] [address] Eosinophils/100 WBC (Bld) 6.6 % High 0.0-6.0 [facility] ([place]) Comment on above: Performed By: #### C BC, FES, CMP, GFR, ADIFF, FERR, ANEU ####[address] [address] Lymphocyte, Absolute 0.3 10 3/mcL Low 0.9-4.3 [facility] ([place]) Comment on above: Performed By: #### C BC, FES, CMP, GFR, ADIFF, FERR, ANEU ####[address] [address] Lymphocytes/100 WBC (Bld) 8.1 % Low 20.0-40.0 [facility] ([place]) Comment on above: Performed By: #### C BC, FES, CMP, GFR, ADIFF, FERR, ANEU ####[address] [address] Monocyte, Absolute 0.5 10 3/mcL Normal 0.1-1.4 [facility] ([place]) Comment on above: Performed By: #### C BC, FES, CMP, GFR, ADIFF, FERR, ANEU ####[address] [address] Monocytes/100 WBC (Bld) 13.1 % High 2.0-13.0 [facility] ([place]) Comment on above: Performed By: #### C BC, FES, CMP, GFR, ADIFF, FERR, ANEU ####[address] [address] Neutrophils/100 WBC (Bld) 71.1 % Normal 50.0-75.0 [facility] ([place]) Comment on above: Performed By: #### C BC, FES, CMP, GFR, ADIFF, FERR, ANEU ####[address] [address] .GFRon 09-28-2023 GFR 60 ml/min/1.73sqm Normal [facility] ([place]) Comment on above: Result Comment: GFR Population [...] BC, FES, CMP, GFR, ADIFF, FERR, ANEU ####[place] [address] GFR Non- 49 ml/min/1.73sqm Normal [facility] ([place]) Comment on above: Result Comment: GFR Population [...] BC, FES, CMP, GFR, ADIFF, FERR, ANEU ####[place] [address] .NEUABSon 09-28-2023 Neutrophil, Absolute 2.7 10 3/mcL Normal 2.3-8.1 [facility] ([place]) Comment on above: Performed By: #### C BC, FES, CMP, GFR, ADIFF, FERR, ANEU ####[place] [address] CBCon 09-28-2023 Erythrocyte distribution width (RBC) [Ratio] 15.4 % Normal 11.5-15.5 [facility] ([place]) Comment on above: Performed By: #### C BC, FES, CMP, GFR, ADIFF, FERR, ANEU ####[place] [address] Hematocrit (Bld) [Volume fraction] 27.2 % Low 40.0-52.0 [facility] ([place]) Comment on above: Performed By: #### C BC, FES, CMP, GFR, ADIFF, FERR, ANEU ####[place] [address] Hgb 8.9 G/dL Low 13.0-17.5 [facility] ([place]) Comment on above: Performed By: #### C BC, FES, CMP, GFR, ADIFF, FERR, ANEU ####[place] [address] MCH (RBC) [Entitic mass] 30.4 pg Normal 27.0-33.0 [facility] ([place]) Comment on above: Performed By: #### C BC, FES, CMP, GFR, ADIFF, FERR, ANEU ####[place] [address] MCHC 32.7 G/dL Normal 32.0-36.0 [facility] ([place]) Comment on above: Performed By: #### C BC, FES, CMP, GFR, ADIFF, FERR, ANEU ####[place] [address] MCV (RBC) [Entitic vol] 92.9 fL Normal 81.0-100.0 [facility] ([place]) Comment on above: Performed By: #### C BC, FES, CMP, GFR, ADIFF, FERR, ANEU ####[place] [address] Platelet 222 10 3/mcL Normal 150-450 [facility] ([place]) Comment on above: Performed By: #### C BC, FES, CMP, GFR, ADIFF, FERR, ANEU ####[place] [address] Platelet mean volume (Bld) [Entitic vol] 8.2 fL Normal 6.4-10.5 [facility] ([place]) Comment on above: Performed By: #### C BC, FES, CMP, GFR, ADIFF, FERR, ANEU ####[place] [address] RBC 2.93 10 6/mcL Low 4.50-6.00 [facility] ([place]) Comment on above: Performed By: #### C BC, FES, CMP, GFR, ADIFF, FERR, ANEU ####[place] [address] WBC 3.8 10 3/mcL Low 4.5-10.8 [facility] ([place]) Comment on above: Performed By: #### C BC, FES, CMP, GFR, ADIFF, FERR, ANEU ####[place] [id number] CMPon 09-28-2023 Albumin Level 3.0 G/dL Low 3.2-4.8 [facility] ([place]) Comment on above: Performed By: #### C BC, FES, CMP, GFR, ADIFF, FERR, ANEU ####[place] [address] Albumin/Globulin [Mass ratio] 0.9 {ratio} Normal 0.9-1.6 [facility] ([place]) Comment on above: Performed By: #### C BC, FES, CMP, GFR, ADIFF, FERR, ANEU ####[place] [address] ALP [Catalytic activity/Vol] 57 U/L Normal 38-126 [facility] ([place]) Comment on above: Performed By: #### C BC, FES, CMP, GFR, ADIFF, FERR, ANEU ####[place] [address] ALT [Catalytic activity/Vol] 16 U/L Normal 12-55 [facility] ([place]) Comment on above: Performed By: #### C BC, FES, CMP, GFR, ADIFF, FERR, ANEU ####[place] [address] AST [Catalytic activity/Vol] 26 U/L Normal 8-34 [facility] ([place]) Comment on above: Performed By: #### C BC, FES, CMP, GFR, ADIFF, FERR, ANEU ####[place] [address] Bili Total 0.20 mg/dL Normal 0.20-1.20 [facility] ([place]) Comment on above: Result Comment: Use of this assay is not recommended for patients undergoing treatment with eltrombopag due to the potential for falsely elevated results. Performed By: #### C BC, FES, CMP, GFR, ADIFF, FERR, ANEU ####[place] [address] BUN/Creatinine Ratio 19.0 ratio Normal 10.0-22.0 [facility] ([place]) Comment on above: Performed By: #### C BC, FES, CMP, GFR, ADIFF, FERR, ANEU ####[address] [address] Calcium [Mass/Vol] 9.2 mg/dL Normal 8.7-10.4 Replaced by [facility] ([place]) Comment on above: Performed By: #### C BC, FES, CMP, GFR, ADIFF, FERR, ANEU ####[address] [address] Chloride [Moles/Vol] 108 mmol/L Normal 98-110 [facility] ([place]) Comment on above: Performed By: #### C BC, FES, CMP, GFR, ADIFF, FERR, ANEU ####[place] [address] CO2 [Moles/Vol] 31 mmol/L Normal 22-32 [facility] ([place]) Comment on above: Performed By: #### C BC, FES, CMP, GFR, ADIFF, FERR, ANEU ####[place] [address] Creatinine [Mass/Vol] 1.37 mg/dL Normal 0.60-1.40 [facility] ([place]) Comment on above: Performed By: #### C BC, FES, CMP, GFR, ADIFF, FERR, ANEU ####[place] [address] Electrolyte Balance 1.0 mEq/L Low 4.0-15.0 [facility] ([place]) Comment on above: Performed By: #### C BC, FES, CMP, GFR, ADIFF, FERR, ANEU ####[address] [address] Globulin 3.3 G/dL Normal 1.5-3.8 [facility] ([place]) Comment on above: Performed By: #### C BC, FES, CMP, GFR, ADIFF, FERR, ANEU ####[address] [address] Glucose [Mass/Vol] 106 mg/dL Normal 82-115 Replaced by [facility] ([place]) Comment on above: Performed By: #### C BC, FES, CMP, GFR, ADIFF, FERR, ANEU ####[place] [id number] Potassium [Moles/Vol] 4.5 mmol/L Normal 3.5-5.0 [facility] ([place]) Comment on above: Performed By: #### C BC, FES, CMP, GFR, ADIFF, FERR, ANEU ####[place] [address] Sodium [Moles/Vol] 140 mmol/L Normal 136-145 Replaced by [facility] ([place]) Comment on above: Performed By: #### C BC, FES, CMP, GFR, ADIFF, FERR, ANEU ####[place] [address] Total Protein 6.3 G/dL Normal 5.7-8.2 [facility] ([place]) Comment on above: Result Comment: No te - New Reference Range in effect 20 Performed By: #### C BC, FES, CMP, GFR, ADIFF, FERR, ANEU ####[place] [address] Urea nitrogen [Mass/Vol] 26.0 mg/dL High 8.0-22.0 [facility] ([place]) Comment on above: Performed By: #### C BC, FES, CMP, GFR, ADIFF, FERR, ANEU ####[place] [address] Mary 09-28-2023 Ferritin [Mass/Vol] 306.2 ng/mL Normal 26.0-388.0 [facility] ([place]) Comment on above: Performed By: #### C BC, FES, CMP, GFR, ADIFF, FERR, ANEU ####[place] [address] FESon 09-28-2023 Iron [Mass/Vol] 46 ug/dL Low 65-175 [facility] ([place]) Comment on above: Performed By: #### C BC, FES, CMP, GFR, ADIFF, FERR, ANEU ####[place] [address] Iron Sat 16 % Normal [facility] ([place]) Comment on above: Performed By: #### C BC, FES, CMP, GFR, ADIFF, FERR, ANEU ####[address] [address] TIBC 279 mcg/dL Normal 250-500 [facility] ([place]) Comment on above: Performed By: #### C BC, FES, CMP, GFR, ADIFF, FERR, ANEU ####[address] [address] CBLon 09-26-2023 CBL Normal [facility] ([place]) .Auto Diffon 09-23-2023 Basophil, Absolute 0.0 10 3/mcL Normal 0.0-0.3 [facility] ([place]) Comment on above: Performed By: #### B MP, ANEU, GFR, ADIFF, CBC ####[place] [address] Basophils/100 WBC (Bld) 0.6 % Normal 0.0-2.5 [facility] ([place]) Comment on above: Performed By: #### B MP, ANEU, GFR, ADIFF, CBC ####[place] [address] Eosinophil, Absolute 0.2 10 3/mcL Normal 0.0-0.7 [facility] ([place]) Comment on above: Performed By: #### B MP, ANEU, GFR, ADIFF, CBC ####[place] [address] Eosinophils/100 WBC (Bld) 4.8 % Normal 0.0-6.0 [facility] ([place]) Comment on above: Performed By: #### B MP, ANEU, GFR, ADIFF, CBC ####[place] [address] Lymphocyte, Absolute 0.3 10 3/mcL Low 0.9-4.3 [facility] ([place]) Comment on above: Performed By: #### B MP, ANEU, GFR, ADIFF, CBC ####[address] [address] Lymphocytes/100 WBC (Bld) 6.2 % Low 20.0-40.0 [facility] ([place]) Comment on above: Performed By: #### B MP, ANEU, GFR, ADIFF, CBC ####[address] [address] Monocyte, Absolute 0.4 10 3/mcL Normal 0.1-1.4 [facility] ([place]) Comment on above: Performed By: #### B MP, ANEU, GFR, ADIFF, CBC ####[address] [address] Monocytes/100 WBC (Bld) 8.8 % Normal 2.0-13.0 [facility] ([place]) Comment on above: Performed By: #### B MP, ANEU, GFR, ADIFF, CBC ####[address] [address] Neutrophils/100 WBC (Bld) 79.6 % High 50.0-75.0 [facility] ([place]) Comment on above: Performed By: #### B MP, ANEU, GFR, ADIFF, CBC ####[address] [address] .GFRon 09-23-2023 GFR Non- 44 ml/min/1.73sqm Normal [facility] ([place]) Comment on above: Result Comment: GFR Population [...] #### B MP, ANEU, GFR, ADIFF, CBC ####[address] [address] GFR 54 ml/min/1.73sqm Normal [facility] ([place] Comment on above: Result Comment: GFR Population [...] #### B MP, ANEU, GFR, ADIFF, CBC ####[address] [address] .NEUABSon 09-23-2023 Neutrophil, Absolute 3.7 10 3/mcL Normal 2.3-8.1 [facility] ([place]) Comment on above: Performed By: #### B MP, ANEU, GFR, ADIFF, CBC ####[address] [address] BMPon 09-23-2023 BUN/Creatinine Ratio 22.7 ratio High 10.0-22.0 [facility] ([place]) Comment on above: Performed By: #### B MP, ANEU, GFR, ADIFF, CBC ####[address] [address] Calcium [Mass/Vol] 8.2 mg/dL Low 8.7-10.4 Replaced by [facility] ([place]) Comment on above: Performed By: #### B MP, ANEU, GFR, ADIFF, CBC ####[address] [address] Chloride [Moles/Vol] 110 mmol/L Normal 98-110 [facility] ([place]) Comment on above: Performed By: #### B MP, ANEU, GFR, ADIFF, CBC ####[address] [address] CO2 [Moles/Vol] 26 mmol/L Normal 22-32 [facility] ([place]) Comment on above: Performed By: #### B MP, ANEU, GFR, ADIFF, CBC ####[address] [address] Creatinine [Mass/Vol] 1.50 mg/dL High 0.60-1.40 [facility] ([place]) Comment on above: Performed By: #### B MP, ANEU, GFR, ADIFF, CBC ####[place] [address] Electrolyte Balance 6.0 mEq/L Normal 4.0-15.0 [facility] ([place]) Comment on above: Performed By: #### B MP, ANEU, GFR, ADIFF, CBC ####[address] [address] Glucose [Mass/Vol] 111 mg/dL Normal 82-115 Replaced by [facility] ([place]) Comment on above: Performed By: #### B MP, ANEU, GFR, ADIFF, CBC ####[place] [address] Potassium [Moles/Vol] 4.1 mmol/L Normal 3.5-5.0 [facility] ([place]) Comment on above: Performed By: #### B MP, ANEU, GFR, ADIFF, CBC ####[address] [address] Sodium [Moles/Vol] 142 mmol/L Normal 136-145 Replaced by [facility] ([place]) Comment on above: Performed By: #### B MP, ANEU, GFR, ADIFF, CBC ####[address] [address] Urea nitrogen [Mass/Vol] 34.0 mg/dL High 8.0-22.0 [facility] ([place]) Comment on above: Performed By: #### B MP, ANEU, GFR, ADIFF, CBC ####[address] [address] CBCon 09-23-2023 Erythrocyte distribution width (RBC) [Ratio] 15.3 % Normal 11.5-15.5 [facility] ([place]) Comment on above: Performed By: #### B MP, ANEU, GFR, ADIFF, CBC ####[place] [address] Hematocrit (Bld) [Volume fraction] 23.3 % Low 40.0-52.0 [facility] ([place]) Comment on above: Performed By: #### B MP, ANEU, GFR, ADIFF, CBC ####[place] [address] Hgb 7.9 G/dL Low 13.0-17.5 [facility] ([place]) Comment on above: Performed By: #### B MP, ANEU, GFR, ADIFF, CBC ####[place] [address] MCH (RBC) [Entitic mass] 30.8 pg Normal 27.0-33.0 [facility] ([place]) Comment on above: Performed By: #### B MP, ANEU, GFR, ADIFF, CBC ####[place] [address] MCHC 34.0 G/dL Normal 32.0-36.0 [facility] ([place]) Comment on above: Performed By: #### B MP, ANEU, GFR, ADIFF, CBC ####[place] [address] MCV (RBC) [Entitic vol] 90.7 fL Normal 81.0-100.0 [facility] ([place]) Comment on above: Performed By: #### B MP, ANEU, GFR, ADIFF, CBC ####[place] [address] Platelet 158 10 3/mcL Normal 150-450 [facility] ([place]) Comment on above: Performed By: #### B MP, ANEU, GFR, ADIFF, CBC ####[place] [address] Platelet mean volume (Bld) [Entitic vol] 7.8 fL Normal 6.4-10.5 [facility] ([place]) Comment on above: Performed By: #### B MP, ANEU, GFR, ADIFF, CBC ####[place] [address] RBC 2.57 10 6/mcL Low 4.50-6.00 [facility] ([place]) Comment on above: Performed By: #### B MP, ANEU, GFR, ADIFF, CBC ####[place] [address] WBC 4.7 10 3/mcL Normal 4.5-10.8 [facility] ([place]) Comment on above: Performed By: #### B MP, ANEU, GFR, ADIFF, CBC ####[place] [address] Mary 09-23-2023 Ferritin [Mass/Vol] 381.4 ng/mL Normal 26.0-388.0 [facility] ([place]) Comment on above: Performed By: #### F ERR, FES ####[place] [address] FESon 09-23-2023 Iron [Mass/Vol] 63 ug/dL Low 65-175 [facility] ([place]) Comment on above: Performed By: #### F ERR, FES ####[place] [address] Iron Sat 29 % Normal [facility] ([place]) Comment on above: Performed By: #### F ERR, FES ####[place] [address] TIBC 219 mcg/dL Low 250-500 [facility] ([place]) Comment on above: Performed By: #### F ERR, FES ####[place] [address] HHon 09-23-2023 Hematocrit (Bld) [Volume fraction] 27.8 % Low 40.0-52.0 [facility] ([place]) Comment on above: Performed By: #### H H ####[place] [address] Hgb 9.4 G/dL Low 13.0-17.5 [facility] ([place]) Comment on above: Performed By: #### H H ####[place] [address] LABORATORYOrdered By: Sheryl Lara on 09-23-2023 Glucose [Mass/Vol] 163 mg/dL High 82 - 115 mg/dL [facility] Work Phone: LABORATORYOrdered By: SYSTEM SYSTEM [...] Glucose Testing Reason Routine (09/23/23 7:57 AM) [facility] Work Phone: Glucose [Mass/Vol] 115 mg/dL Normal 82 - 115 mg/dL [facility] Work Phone: .Auto Diffon 09-22-2023 Basophil, Absolute 0.0 10 3/mcL Normal 0.0-0.3 [facility] ([place]) Comment on above: Performed By: #### M ORPH, GFR, CBC, ADIFF, BMP, ANEU ####[address] [address] Basophils/100 WBC (Bld) 0.2 % Normal 0.0-2.5 [facility] ([place]) Comment on above: Performed By: #### M ORPH, GFR, CBC, ADIFF, BMP, ANEU ####[address] [address] Eosinophil, Absolute 0.0 10 3/mcL Normal 0.0-0.7 [facility] ([place]) Comment on above: Performed By: #### M ORPH, GFR, CBC, ADIFF, BMP, ANEU ####[address] [address] Eosinophils/100 WBC (Bld) 0.0 % Normal 0.0-6.0 [facility] ([place]) Comment on above: Performed By: #### M ORPH, GFR, CBC, ADIFF, BMP, ANEU ####[address] [address] Lymphocyte, Absolute 0.2 10 3/mcL Low 0.9-4.3 [facility] ([place]) Comment on above: Performed By: #### M ORPH, GFR, CBC, ADIFF, BMP, ANEU ####[address] [address] Lymphocytes/100 WBC (Bld) 3.9 % Low 20.0-40.0 [facility] ([place]) Comment on above: Performed By: #### M ORPH, GFR, CBC, ADIFF, BMP, ANEU ####[address] [address] Monocyte, Absolute 0.4 10 3/mcL Normal 0.1-1.4 [facility] ([place]) Comment on above: Performed By: #### M ORPH, GFR, CBC, ADIFF, BMP, ANEU ####[address] [address] Monocytes/100 WBC (Bld) 7.7 % Normal 2.0-13.0 [facility] ([place]) Comment on above: Performed By: #### M ORPH, GFR, CBC, ADIFF, BMP, ANEU ####[address] [address] Neutrophils/100 WBC (Bld) 88.2 % High 50.0-75.0 [facility] ([place]) Comment on above: Performed By: #### M ORPH, GFR, CBC, ADIFF, BMP, ANEU ####[address] [address] .GFRon 09-22-2023 GFR 51 ml/min/1.73sqm Normal [facility] ([place]) Comment on above: Result Comment: GFR Population [...] M ORPH, GFR, CBC, ADIFF, BMP, ANEU ####[address] [address] GFR Non- 42 ml/min/1.73sqm Normal [facility] ([place]) Comment on above: Result Comment: GFR Population [...] M ORPH, GFR, CBC, ADIFF, BMP, ANEU ####[place] [address] .Morphon 09-22-2023 Anisocytosis Ql (Bld) 1+ Normal [facility] ([place]) Comment on above: Performed By: #### M ORPH, GFR, CBC, ADIFF, BMP, ANEU ####[place] [address] Ovalocytes 1+ Normal [facility] ([place]) Comment on above: Performed By: #### M ORPH, GFR, CBC, ADIFF, BMP, ANEU ####[place] [address] Platelet Estimate Slt Decreased Normal [facility] ([place]) Comment on above: Performed By: #### M ORPH, GFR, CBC, ADIFF, BMP, ANEU ####[place] [address] Poik 1+ Normal [facility] ([place]) Comment on above: Performed By: #### M ORPH, GFR, CBC, ADIFF, BMP, ANEU ####[place] [address] Polychrom 1+ Normal [facility] ([place]) Comment on above: Performed By: #### M ORPH, GFR, CBC, ADIFF, BMP, ANEU ####[place] [address] .NEUABSon 09-22-2023 Neutrophil, Absolute 5.1 10 3/mcL Normal 2.3-8.1 [facility] ([place]) Comment on above: Performed By: #### M ORPH, GFR, CBC, ADIFF, BMP, ANEU ####[place] [address] ABO/Rh (Gel)on 09-22-2023 ABO/Rh Interp Positive Invalid Interpretation Code [facility] ([place]) Comment on above: Performed By: #### A BSGEL, ABOGEL ####[place] [address] ABS (Gel)on 09-22-2023 ABSC Interp (Gel) Negative Normal [facility] ([place]) Comment on above: Performed By: #### A BSJEREMIAS CATHERINEGEL ####[address] [address] BMPon 09-22-2023 BUN/Creatinine Ratio 20.3 ratio Normal 10.0-22.0 [facility] ([place]) Comment on above: Performed By: #### M ORPH, GFR, CBC, ADIFF, BMP, ANEU ####[place] [address] Calcium [Mass/Vol] 7.7 mg/dL Low 8.7-10.4 Replaced by [facility] ([place]) Comment on above: Performed By: #### M ORPH, GFR, CBC, ADIFF, BMP, ANEU ####[place] [address] Chloride [Moles/Vol] 110 mmol/L Normal 98-110 [facility] ([place]) Comment on above: Performed By: #### M ORPH, GFR, CBC, ADIFF, BMP, ANEU ####[place] [address] CO2 [Moles/Vol] 23 mmol/L Normal 22-32 [facility] ([place]) Comment on above: Performed By: #### M ORPH, GFR, CBC, ADIFF, BMP, ANEU ####[place] [address] Creatinine [Mass/Vol] 1.58 mg/dL High 0.60-1.40 [facility] ([place]) Comment on above: Performed By: #### M ORPH, GFR, CBC, ADIFF, BMP, ANEU ####[place] [address] Electrolyte Balance 4.0 mEq/L Normal 4.0-15.0 [facility] ([place]) Comment on above: Performed By: #### M ORPH, GFR, CBC, ADIFF, BMP, ANEU ####[place] [address] Glucose [Mass/Vol] 169 mg/dL High 82-115 Replaced by [facility] ([place]) Comment on above: Performed By: #### M ORPH, GFR, CBC, ADIFF, BMP, ANEU ####[place] [address] Potassium [Moles/Vol] 4.5 mmol/L Normal 3.5-5.0 [facility] ([place]) Comment on above: Performed By: #### M ORPH, GFR, CBC, ADIFF, BMP, ANEU ####[place] [address] Sodium [Moles/Vol] 137 mmol/L Normal 136-145 Replaced by [facility] ([place]) Comment on above: Performed By: #### M ORPH, GFR, CBC, ADIFF, BMP, ANEU ####[place] [address] Urea nitrogen [Mass/Vol] 32.0 mg/dL High 8.0-22.0 [facility] ([place]) Comment on above: Performed By: #### M ORPH, GFR, CBC, ADIFF, BMP, ANEU ####[place] [address] CBCon 09-22-2023 Erythrocyte distribution width (RBC) [Ratio] 14.9 % Normal 11.5-15.5 [facility] ([place]) Comment on above: Performed By: #### M ORPH, GFR, CBC, ADIFF, BMP, ANEU ####[place] [address] Hematocrit (Bld) [Volume fraction] 19.9 % Low 40.0-52.0 [facility] ([place]) Comment on above: Performed By: #### M ORPH, GFR, CBC, ADIFF, BMP, ANEU ####[place] [address] Hgb 6.7 G/dL Critically abnormal 13.0-17.5 [facility] ([place]) Comment on above: Performed By: #### M ORPH, GFR, CBC, ADIFF, BMP, ANEU ####[place] [address] MCH (RBC) [Entitic mass] 31.0 pg Normal 27.0-33.0 [facility] ([place]) Comment on above: Performed By: #### M ORPH, GFR, CBC, ADIFF, BMP, ANEU ####[place] [address] MCHC 33.9 G/dL Normal 32.0-36.0 [facility] ([place]) Comment on above: Performed By: #### M ORPH, GFR, CBC, ADIFF, BMP, ANEU ####[place] [address] MCV (RBC) [Entitic vol] 91.4 fL Normal 81.0-100.0 [facility] ([place]) Comment on above: Performed By: #### M ORPH, GFR, CBC, ADIFF, BMP, ANEU ####[place] [address] Platelet 139 10 3/mcL Low 150-450 [facility] ([place]) Comment on above: Performed By: #### M ORPH, GFR, CBC, ADIFF, BMP, ANEU ####[place] [address] Platelet mean volume (Bld) [Entitic vol] 7.2 fL Normal 6.4-10.5 [facility] ([place]) Comment on above: Performed By: #### M ORPH, GFR, CBC, ADIFF, BMP, ANEU ####[place] [address] RBC 2.18 10 6/mcL Low 4.50-6.00 [facility] ([place]) Comment on above: Performed By: #### M ORPH, GFR, CBC, ADIFF, BMP, ANEU ####[place] [address] WBC 5.8 10 3/mcL Normal 4.5-10.8 [facility] ([place]) Comment on above: Performed By: #### M ORPH, GFR, CBC, ADIFF, BMP, ANEU ####[place] [address] CURon 09-22-2023 CUR Normal [facility] ([place]) HHon 09-22-2023 Hematocrit (Bld) [Volume fraction] 24.3 % Low 40.0-52.0 [facility] ([place]) Comment on above: Performed By: #### H H ####[place] [id number] [place] [address] Hgb 8.2 G/dL Low 13.0-17.5 [facility] ([place]) Comment on above: Performed By: #### H H ####[place] [id number] [place] [address] LABORATORYOrdered By: Shilpa Walker on 09-22-2023 Glucose [Mass/Vol] 150 mg/dL High 82 - 115 mg/dL [facility] Work Phone: LABORATORYOrdered By: SYSTEM SYSTEM [...] [Vol rate/Area] 51 ml/min/1.73sqm Invalid Interpretation Code [facility] Chemistry S Comment on above: Interpretive Data: [...] [Vol rate/Area] 42 ml/min/1.73sqm Invalid Interpretation Code [facility] Chemistry S Comment on above: Interpretive Data: [...] Glucose Testing Reason Routine (09/22/23 8:10 AM) [facility] Work Phone: LABORATORYOrdered By: Laura Molina [...] Product Ready RBC Ready for Pickup Normal [facility] ([place]) Comment on above: Performed By: #### R BCP ####[address] [address] .Auto Diffon 09-21-2023 Basophil, Absolute 0.0 10 3/mcL Normal 0.0-0.3 [facility] ([place]) Comment on above: Performed By: #### C BC, BMP, ANEU, ADIFF, HFP, GFR ####[address] [address] Basophils/100 WBC (Bld) 0.4 % Normal 0.0-2.5 [facility] ([place]) Comment on above: Performed By: #### C BC, BMP, ANEU, ADIFF, HFP, GFR ####[address] [address] Eosinophil, Absolute 0.0 10 3/mcL Normal 0.0-0.7 [facility] ([place]) Comment on above: Performed By: #### C BC, BMP, ANEU, ADIFF, HFP, GFR ####[address] [address] Eosinophils/100 WBC (Bld) 0.6 % Normal 0.0-6.0 [facility] ([place]) Comment on above: Performed By: #### C BC, BMP, ANEU, ADIFF, HFP, GFR ####[address] [address] Lymphocyte, Absolute 0.2 10 3/mcL Low 0.9-4.3 [facility] ([place]) Comment on above: Performed By: #### C BC, BMP, ANEU, ADIFF, HFP, GFR ####[address] [address] Lymphocytes/100 WBC (Bld) 3.5 % Low 20.0-40.0 [facility] ([place]) Comment on above: Performed By: #### C BC, BMP, ANEU, ADIFF, HFP, GFR ####[address] [address] Monocyte, Absolute 0.8 10 3/mcL Normal 0.1-1.4 [facility] ([place]) Comment on above: Performed By: #### C BC, BMP, ANEU, ADIFF, HFP, GFR ####[address] [address] Monocytes/100 WBC (Bld) 11.3 % Normal 2.0-13.0 [facility] ([place]) Comment on above: Performed By: #### C BC, BMP, ANEU, ADIFF, HFP, GFR ####[address] [address] Neutrophils/100 WBC (Bld) 84.2 % High 50.0-75.0 [facility] ([place]) Comment on above: Performed By: #### C BC, BMP, ANEU, ADIFF, HFP, GFR ####[address] [address] .GFRon 09-21-2023 GFR 38 ml/min/1.73sqm Normal [facility] ([place]) Comment on above: Result Comment: GFR Population [...] C BC, BMP, ANEU, ADIFF, HFP, GFR ####[address] [address] GFR Non- 31 ml/min/1.73sqm Normal [facility] ([place]) Comment on above: Result Comment: GFR Population [...] C BC, BMP, ANEU, ADIFF, HFP, GFR ####[address] [address] .NEUABSon 09-21-2023 Neutrophil, Absolute 5.7 10 3/mcL Normal 2.3-8.1 [facility] ([place]) Comment on above: Performed By: #### C BC, BMP, ANEU, ADIFF, HFP, GFR ####[address] [address] BMPon 09-21-2023 BUN/Creatinine Ratio 16.2 ratio Normal 10.0-22.0 [facility] ([place]) Comment on above: Order Comment: Adriana perez for 0501 the morning of patient admission. Performed By: #### C BC, BMP, ANEU, ADIFF, HFP, GFR ####[address] [address] Calcium [Mass/Vol] 8.0 mg/dL Low 8.7-10.4 Replaced by [facility] ([place]) Comment on above: Order Comment: Routi ne for 0501 the morning of patient admission. Performed By: #### C BC, BMP, ANEU, ADIFF, HFP, GFR ####[address] [address] Chloride [Moles/Vol] 108 mmol/L Normal 98-110 [facility] ([place]) Comment on above: Order Comment: Routi ne for 0501 the morning of patient admission. Performed By: #### C BC, BMP, ANEU, ADIFF, HFP, GFR ####[address] [address] CO2 [Moles/Vol] 24 mmol/L Normal 22-32 [facility] ([place]) Comment on above: Order Comment: Routi ne for 0501 the morning of patient admission. Performed By: #### C BC, BMP, ANEU, ADIFF, HFP, GFR ####[place] [id number] Creatinine [Mass/Vol] 2.04 mg/dL High 0.60-1.40 [facility] ([place]) Comment on above: Order Comment: Routi ne for 0501 the morning of patient admission. Performed By: #### C BC, BMP, ANEU, ADIFF, HFP, GFR ####[place] [address] Electrolyte Balance 7.0 mEq/L Normal 4.0-15.0 [facility] ([place]) Comment on above: Order Comment: Routi ne for 0501 the morning of patient admission. Performed By: #### C BC, BMP, ANEU, ADIFF, HFP, GFR ####[place] [address] Glucose [Mass/Vol] 127 mg/dL High 82-115 Replaced by [facility] ([place]) Comment on above: Order Comment: Routi ne for 0501 the morning of patient admission. Performed By: #### C BC, BMP, ANEU, ADIFF, HFP, GFR ####[place] [id number] Potassium [Moles/Vol] 4.5 mmol/L Normal 3.5-5.0 [facility] ([place]) Comment on above: Order Comment: Routi ne for 0501 the morning of patient admission. Performed By: #### C BC, BMP, ANEU, ADIFF, HFP, GFR ####[place] [address] Sodium [Moles/Vol] 139 mmol/L Normal 136-145 Replaced by [facility] ([place] Comment on above: Order Comment: Routi ne for 0501 the morning of patient admission. Performed By: #### C BC, BMP, ANEU, ADIFF, HFP, GFR ####[place] [address] Urea nitrogen [Mass/Vol] 33.0 mg/dL High 8.0-22.0 [facility] ([place]) Comment on above: Order Comment: Routi ne for 0501 the morning of patient admission. Performed By: #### C BC, BMP, ANEU, ADIFF, HFP, GFR ####[place] [address] CBCon 09-21-2023 Erythrocyte distribution width (RBC) [Ratio] 15.0 % Normal 11.5-15.5 [facility] ([place]) Comment on above: Order Comment: Routi ne for 0501 the morning of patient admission. Performed By: #### C BC, BMP, ANEU, ADIFF, HFP, GFR ####[place] [address] Hematocrit (Bld) [Volume fraction] 21.9 % Low 40.0-52.0 [facility] ([place]) Comment on above: Order Comment: Routi ne for 0501 the morning of patient admission. Performed By: #### C BC, BMP, ANEU, ADIFF, HFP, GFR ####[place] [address] Hgb 7.3 G/dL Low 13.0-17.5 [facility] ([place]) Comment on above: Order Comment: Routi ne for 0501 the morning of patient admission. Performed By: #### C BC, BMP, ANEU, ADIFF, HFP, GFR ####[place] [address] MCH (RBC) [Entitic mass] 30.7 pg Normal 27.0-33.0 [facility] ([place]) Comment on above: Order Comment: Routi ne for 0501 the morning of patient admission. Performed By: #### C BC, BMP, ANEU, ADIFF, HFP, GFR ####[place] [address] MCHC 33.3 G/dL Normal 32.0-36.0 [facility] ([place]) Comment on above: Order Comment: Routi ne for 0501 the morning of patient admission. Performed By: #### C BC, BMP, ANEU, ADIFF, HFP, GFR ####[place] [address] MCV (RBC) [Entitic vol] 92.0 fL Normal 81.0-100.0 [facility] ([place]) Comment on above: Order Comment: Routi ne for 0501 the morning of patient admission. Performed By: #### C BC, BMP, ANEU, ADIFF, HFP, GFR ####[place] [address] Platelet 161 10 3/mcL Normal 150-450 [facility] ([place]) Comment on above: Order Comment: Routi ne for 0501 the morning of patient admission. Performed By: #### C BC, BMP, ANEU, ADIFF, HFP, GFR ####[place] [address] Platelet mean volume (Bld) [Entitic vol] 7.2 fL Normal 6.4-10.5 [facility] ([place]) Comment on above: Order Comment: Routi ne for 0501 the morning of patient admission. Performed By: #### C BC, BMP, ANEU, ADIFF, HFP, GFR ####[place] [address] RBC 2.38 10 6/mcL Low 4.50-6.00 [facility] ([place]) Comment on above: Order Comment: Routi ne for 0501 the morning of patient admission. Performed By: #### C BC, BMP, ANEU, ADIFF, HFP, GFR ####[address] [address] WBC 6.8 10 3/mcL Normal 4.5-10.8 [facility] ([place]) Comment on above: Order Comment: Adriana perez for 0501 the morning of patient admission. Performed By: #### C BC, BMP, ANEU, ADIFF, HFP, GFR ####[place] [address] HFPon 09-21-2023 Bili Indirect 0.3 mg/dL Normal 0.1-10.0 [facility] ([place]) Comment on above: Performed By: #### C BC, BMP, ANEU, ADIFF, HFP, GFR ####[place] [address] Albumin Level 2.5 G/dL Low 3.2-4.8 [facility] ([place]) Comment on above: Performed By: #### C BC, BMP, ANEU, ADIFF, HFP, GFR ####[place] [address] Albumin/Globulin [Mass ratio] 0.9 {ratio} Normal 0.9-1.6 [facility] ([place]) Comment on above: Performed By: #### C BC, BMP, ANEU, ADIFF, HFP, GFR ####[place] [address] ALP [Catalytic activity/Vol] 49 U/L Normal 38-126 [facility] ([place]) Comment on above: Performed By: #### C BC, BMP, ANEU, ADIFF, HFP, GFR ####[place] [address] ALT [Catalytic activity/Vol] 11 U/L Low 12-55 [facility] ([place]) Comment on above: Performed By: #### C BC, BMP, ANEU, ADIFF, HFP, GFR ####[place] [address] AST [Catalytic activity/Vol] 22 U/L Normal 8-34 [facility] ([place]) Comment on above: Performed By: #### C BC, BMP, ANEU, ADIFF, HFP, GFR ####[place] [address] Bili Direct 0.1 mg/dL Normal 0.0-0.4 [facility] ([place]) Comment on above: Result Comment: Use of this assay is not recommended for patients undergoing treatment with eltrombopag due to the potential for falsely elevated results. Performed By: #### C BC, BMP, ANEU, ADIFF, HFP, GFR ####[place] [address] Bili Total 0.40 mg/dL Normal 0.20-1.20 [facility] ([place]) Comment on above: Result Comment: Use of this assay is not recommended for patients undergoing treatment with eltrombopag due to the potential for falsely elevated results. Performed By: #### C BC, BMP, ANEU, ADIFF, HFP, GFR ####[place] [id number] [place] [address] Globulin 2.9 G/dL Normal 1.5-3.8 [facility] ([place]) Comment on above: Performed By: #### C BC, BMP, ANEU, ADIFF, HFP, GFR ####[place] [address] Total Protein 5.4 G/dL Low 5.7-8.2 [facility] ([place]) Comment on above: Result Comment: No te - New Reference Range in effect 20 Performed By: #### C BC, BMP, ANEU, ADIFF, HFP, GFR ####[place] [address] LABORATORYOrdered By: Sally stephenson on 09-21-2023 Blood Glucose Testing Reason Routine (09/21/23 9:39 PM) [facility] Work Phone: LABORATORYOrdered By: Beverly [place] [...] [Vol rate/Area] 38 ml/min/1.73sqm Invalid Interpretation Code [facility] Chemistry S Comment on above: Interpretive Data: [...] [Vol rate/Area] 31 ml/min/1.73sqm Invalid Interpretation Code [facility] Chemistry S Comment on above: Interpretive Data: [...] Lactic Acid Lvl 1.1 mmol/L Normal 0.2-2.0 [facility] ([place]) Comment on above: Performed By: #### L AC ####[place] [address] No Panel Informationon 09-21 Microscopic examination of blood, culture Culture has been received in lab and is no growth to date. Routine cultures are held for 5 days. [facility] Work Phone: XR RETROGRADE PYELOGRAMon XR RETROGRADE PYELOGRAM Normal [facility] ([place]) .Auto Diffon 09-20-2023 Basophil, Absolute 0.0 10 3/mcL Normal 0.0-0.2 [facility] ([place]) Comment on above: Performed By: #### C HEBER BACON, ERICK, ADIFF, GFR, ANEU ####[address] [place], [place] [address] Basophils/100 WBC (Bld) 0.4 % Normal 0.0-2.5 [facility] ([place]) Comment on above: Performed By: #### C HEBER BACON, ERICK, ADIFF, GFR, ANEU ####[id number] [place], [place] [address] Eosinophil, Absolute 0.1 10 3/mcL Normal 0.0-0.4 [facility] ([place]) Comment on above: Performed By: #### C HEBER BACON, ERICK, ADIFF, GFR, ANEU ####[id number] [place], [place] [address] Eosinophils/100 WBC (Bld) 2.4 % Normal 0.0-7.0 [facility] ([place]) Comment on above: Performed By: #### C HEBER BACON MDW, ADIFF, GFR, ANEU ####[address] [place], [place] [address] Lymphocyte, Absolute 0.3 10 3/mcL Low 0.8-3.9 [facility] ([place]) Comment on above: Performed By: #### C HEBER BACON, ERICK, ADIFF, GFR, ANEU ####[address] [place], [place] [address] Lymphocytes/100 WBC (Bld) 5.4 % Low 10.0-50.0 [facility] ([place]) Comment on above: Performed By: #### C HEBER BACONERICK, ADIFF, GFR, ANEU ####[address] [place], [place] [address] Monocyte, Absolute 0.5 10 3/mcL Normal 0.2-1.0 [facility] ([place]) Comment on above: Performed By: #### C HEBER BACON, ERICK, ADIFF, GFR, ANEU ####[address] [place], [place] [address] Monocytes/100 WBC (Bld) 9.9 % Normal 1.7-13.0 [facility] ([place]) Comment on above: Performed By: #### C JORDI, HEBER, ERICK, ADIFF, GFR, ANEU ####[address] [place], [place] [address] Neutrophils/100 WBC (Bld) 81.9 % High 37.0-80.0 [facility] ([place] Comment on above: Performed By: #### C HEBER BACON, ERICK, ADIFF, GFR, ANEU ####[address] [place], [place] [address] .GFRon 09-20-2023 GFR 33 ml/min/1.73sqm Normal [facility] ([place]) Comment on above: Result Comment: GFR [...] HEBER, ERICK, ADIFF, GFR, ANEU ####[address] [place] [place], [place] [address] GFR Non- 27 ml/min/1.73sqm Normal [facility] ([place]) Comment on above: Result Comment: GFR Population [...] BACON, ERICK, ADIFF, GFR, ANEU ####[address] [place] [id number] .MDWon 09-20-2023 Monocyte Distribution Width 18.86 Normal 0.00-20.00 [facility] ([place]) Comment on above: Result Comment: For ED adult patients suspected of sepsis, MDW<=20.0 does not rule out sepsis or risk of sepsis Performed By: #### C JORDI, HEBER, ERICK, ADIFF, GFR, ANEU ####[address] [place] [id number] .NEUABSon 09-20-2023 Neutrophil, Absolute 4.1 10 3/mcL Normal 2.9-6.2 [facility] ([place]) Comment on above: Performed By: #### C HEBER BACON, ERICK, ADIFF, GFR, ANEU ####[address] [place] [id number] .Urinalysis Microscopic (AO) on 09-20-2023 UA Bacteria 3+ /hpf Abnormal [facility] ([place]) Comment on above: Performed By: #### U A, UAMICAO ####[address] [place] [id number] UA RBC 15-25 Abnormal None Seen [facility] ([place]) Comment on above: Performed By: #### U A, UAMICAO ####[address] [place] [address] UA Squam Epithelial 0-5 Abnormal None Seen [facility] ([place]) Comment on above: Performed By: #### U Kerri UAMICAO ####[address] [place], [place] [address] UA WBC LOADED Abnormal None Seen [facility] ([place]) Comment on above: Performed By: #### U Kerri UAMICAO ####[address] [place], [place] [address] BMPon 09-20-2023 BUN/Creatinine Ratio 17 ratio Normal 7-27 [facility] ([place]) Comment on above: Performed By: #### C HEBER BACON MDW, EZRA, GFR, ANEU ####[address] [place], [place] [address] Calcium [Mass/Vol] 8.8 mg/dL Normal 8.4-10.2 Replaced by [facility] ([place]) Comment on above: Performed By: #### C HEBER BACON MDW, EZRA, GFR, ANEU ####[address] [place], [place] [address] Chloride [Moles/Vol] 104 mmol/L Normal 98-107 [facility] ([place]) Comment on above: Performed By: #### C HEBER BACON MDW, EZRA, GFR, ANEU ####[address] [place], [place] [address] CO2 [Moles/Vol] 24 mmol/L Normal 23-31 [facility] ([place]) Comment on above: Performed By: #### C HEBER BACON MDW, EZRA, GFR, ANEU ####[address] [place], [place] [address] Creatinine [Mass/Vol] 2.28 mg/dL High 0.70-1.30 [facility] ([place]) Comment on above: Performed By: #### C HEBER BACON MDW, ADSERGEI, GFR, ANEU ####[address] [place], [place] [address] Electrolyte Balance 13.0 mEq/L Normal 4.0-15.0 [facility] ([place]) Comment on above: Performed By: #### C JORDI, HEBER, ERICK, ADIFF, GFR, ANEU ####[address] [place], [place] [address] Glucose [Mass/Vol] 191 mg/dL High 83-110 Replaced by [facility] ([place]) Comment on above: Performed By: #### C JORDI, HEBER, ERICK, ADIFF, GFR, ANEU ####[address] [place], [place] [address] Potassium [Moles/Vol] 4.7 mmol/L Normal 3.5-5.1 [facility] ([place]) Comment on above: Performed By: #### C JORDI, HEBER, ERICK, ADIFF, GFR, ANEU ####[address] [place], [place] [address] Sodium [Moles/Vol] 141 mmol/L Normal 136-145 Replaced by [facility] ([place]) Comment on above: Performed By: #### C HEBER BACON, ERICK, ADIFF, GFR, ANEU ####[address] [place], [place] [address] Urea nitrogen [Mass/Vol] 39 mg/dL High 7-18 [facility] ([place]) Comment on above: Performed By: #### C HEBER BACON, ERICK, ADIFF, GFR, ANEU ####[address] [place], [place] [address] CBCon 09-20-2023 Erythrocyte distribution width (RBC) [Ratio] 15.4 % High 11.5-14.5 [facility] ([place]) Comment on above: Performed By: #### C JORDI, HEBER, ERICK, ADIFF, GFR, ANEU ####[address] [place], [place] [address] Hematocrit (Bld) [Volume fraction] 26.6 % Low 42.0-52.0 [facility] ([place]) Comment on above: Performed By: #### C JORDI, HEBER, ERICK, ADIFF, GFR, ANEU ####[address] [place], [place] [address] Hgb 9.0 G/dL Low 14.0-18.0 [facility] ([place]) Comment on above: Performed By: #### C JORDI, HEBER, ERICK, ADIFF, GFR, ANEU ####[address] [place], [place] [address] MCH (RBC) [Entitic mass] 31.0 pg Normal 27.0-31.2 [facility] ([place]) Comment on above: Performed By: #### C JORDI, HEBER, ERICK, ADIFF, GFR, ANEU ####[address] [place], [place] [address] MCHC 33.9 G/dL Normal 31.8-35.4 [facility] ([place]) Comment on above: Performed By: #### C HEBER BACON, ERICK, ADIFF, GFR, ANEU ####[address] [place], [place] [address] MCV (RBC) [Entitic vol] 91.3 fL Normal 80.0-94.0 [facility] ([place]) Comment on above: Performed By: #### C HEBER BACON, ERICK, ADIFF, GFR, ANEU ####[address] [place], [place] [address] Platelet 198 10 3/mcL Normal 130-400 [facility] ([place]) Comment on above: Performed By: #### C HEBER BACON, ERICK, ADIFF, GFR, ANEU ####[address] [place], [place] [address] Platelet mean volume (Bld) [Entitic vol] 6.7 fL Low 7.4-10.4 [facility] ([place]) Comment on above: Performed By: #### C JORDI, HEBER, ERICK, ADIFF, GFR, ANEU ####[address] [place], [place] [address] RBC 2.91 10 6/mcL Low 4.04-6.13 [facility] ([place]) Comment on above: Performed By: #### C JORDI, HEBER, ERICK, ADIFF, GFR, ANEU ####[address] [place], [place] [address] WBC 5.1 10 3/mcL Normal 4.6-10.8 [facility] ([place]) Comment on above: Performed By: #### C JORDI, HEBER, ERICK, EZRA, GFR, ANEU ####[address] [place], [place] [address] CT ABDOMEN/PELVIS W/O CONTRA STon 09-20-2023 CT ABDOMEN/PELVIS W/O CONTRAST Normal [facility] ([place]) LABORATORYOrdered By: SYSTEM SYSTEM on 09-20-2023 Basophil, [...] Lactic Acid Lvl 1.2 mmol/L Normal 0.4-2.0 [facility] ([place]) Comment on above: Performed By: #### L AC ####[address] [place], [place] [address] UAon 09-20-2023 Color (U) Yellow Normal [facility] ([place]) Comment on above: Performed By: #### U A, UAMICAO ####[address] [place], [place] [address] Glucose (U) [Mass/Vol] Negative Normal Negative [facility] ([place]) Comment on above: Performed By: #### U A, UAMICAO ####[address] [place], [place] [address] Ketones Ql (U) Negative Normal Negative [facility] ([place]) Comment on above: Performed By: #### U A, UAMICAO ####[address] [place], [place] [address] UA Appear Cloudy Abnormal Clear [facility] ([place]) Comment on above: Performed By: #### U A, UAMICAO ####[address] [place], [place] [address] UA Blood Moderate Abnormal Negative [facility] ([place]) Comment on above: Performed By: #### U A, UAMICAO ####[address] [place], [place] [address] UA Leuk Est Moderate Abnormal Negative [facility] ([place]) Comment on above: Performed By: #### U A, UAMICAO ####[address] [place], [place] [address] UA Nitrite Negative Normal Negative [facility] ([place]) Comment on above: Performed By: #### U A, UAMICAO ####[address] [place] [address] UA pH 5.5 Normal 5.0 - 8.0 [facility] ([place]) Comment on above: Performed By: #### U A, UAMICAO ####[address] [place] [address] UA Protein 30 mg/dL Normal Negative [facility] ([place]) Comment on above: Performed By: #### U A, UAMICAO ####[address] [place], [place] [address] UA Spec Grav 1.020 Normal 1.015-1.025 [facility] ([place]) Comment on above: Performed By: #### U A, UAMICAO ####[address] [place], [place] [address] UA Specimen Type Clean Catch Normal [facility] ([place]) Comment on above: Performed By: #### U A, UAMICAO ####[address] [place], [place] [address] UA Urobilinogen 0.2 E.U./dL Normal 0.2-1.0 [facility] ([place]) Comment on above: Performed By: #### U A, UAMICAO ####[address] [place], [place] [address] Urobilinogen (U) [Mass/Vol] Negative Normal Negative [facility] ([place]) Comment on above: Performed By: #### U A, UAMICAO ####[facility] [place], [place] [address] .Auto Diffon 09-06-2023 Basophil, Absolute 0.0 10 3/mcL Normal 0.0-0.3 [facility] ([place]) Comment on above: Performed By: #### M DW, GFR, ADIFF, CBC, BMP, ANEU, TROPHS ####[address] [address] Basophils/100 WBC (Bld) 0.6 % Normal 0.0-2.5 [facility] ([place]) Comment on above: Performed By: #### M DW, GFR, ADIFF, CBC, BMP, ANEU, TROPHS ####[address] [address] Eosinophil, Absolute 0.3 10 3/mcL Normal 0.0-0.7 [facility] ([place]) Comment on above: Performed By: #### M DW, GFR, ADIFF, CBC, BMP, ANEU, TROPHS ####[address] [address] Eosinophils/100 WBC (Bld) 6.7 % High 0.0-6.0 [facility] ([place]) Comment on above: Performed By: #### M DW, GFR, ADIFF, CBC, BMP, ANEU, TROPHS ####[address] [address] Lymphocyte, Absolute 0.4 10 3/mcL Low 0.9-4.3 [facility] ([place]) Comment on above: Performed By: #### M DW, GFR, ADIFF, CBC, BMP, ANEU, TROPHS ####[address] [address] Lymphocytes/100 WBC (Bld) 9.9 % Low 20.0-40.0 [facility] ([place]) Comment on above: Performed By: #### M DW, GFR, ADIFF, CBC, BMP, ANEU, TROPHS ####[address] [address] Monocyte, Absolute 0.6 10 3/mcL Normal 0.1-1.4 [facility] ([place]) Comment on above: Performed By: #### M DW, GFR, ADIFF, CBC, BMP, ANEU, TROPHS ####[address] [address] Monocytes/100 WBC (Bld) 14.0 % High 2.0-13.0 [facility] ([place]) Comment on above: Performed By: #### M DW, GFR, ADIFF, CBC, BMP, ANEU, TROPHS ####[address] [address] Neutrophils/100 WBC (Bld) 68.8 % Normal 50.0-75.0 [facility] ([place]) Comment on above: Performed By: #### M DW, GFR, ADIFF, CBC, BMP, ANEU, TROPHS ####[address] [address] .GFRon 09-06-2023 GFR >60 Normal [facility] ([place]) Comment on above: Result Comment: GFR Population [...] DW, GFR, ADIFF, CBC, BMP, ANEU, TROPHS ####[address] [address] GFR Non- 52 ml/min/1.73sqm Normal [facility] ([place]) Comment on above: Result Comment: GFR Population [...] DW, GFR, ADIFF, CBC, BMP, ANEU, TROPHS ####[place] [address] .MDWon 09-06-2023 Monocyte Distribution Width 18.77 Normal 0.00-20.00 [facility] ([place]) Comment on above: Result Comment: For ED adult patients suspected of sepsis, MDW<=20.0 does not rule out sepsis or risk of sepsis Performed By: #### M DW, GFR, ADIFF, CBC, BMP, ANEU, TROPHS ####[place] [address] .NEUABSon 09-06-2023 Neutrophil, Absolute 2.7 10 3/mcL Normal 2.3-8.1 [facility] ([place]) Comment on above: Performed By: #### M DW, GFR, ADIFF, CBC, BMP, ANEU, TROPHS ####[place] [address] BMPon 09-06-2023 BUN/Creatinine Ratio 20.6 ratio Normal 10.0-22.0 [facility] ([place]) Comment on above: Performed By: #### M DW, GFR, ADIFF, CBC, BMP, ANEU, TROPHS ####[place] [address] Calcium [Mass/Vol] 9.9 mg/dL Normal 8.7-10.4 Replaced by [facility] ([place]) Comment on above: Performed By: #### M DW, GFR, ADIFF, CBC, BMP, ANEU, TROPHS ####[place] [address] Chloride [Moles/Vol] 108 mmol/L Normal 98-110 [facility] ([place]) Comment on above: Performed By: #### M DW, GFR, ADIFF, CBC, BMP, ANEU, TROPHS ####[address] [address] CO2 [Moles/Vol] 27 mmol/L Normal 22-32 [facility] ([place]) Comment on above: Performed By: #### M DW, GFR, ADIFF, CBC, BMP, ANEU, TROPHS ####[address] [address] Creatinine [Mass/Vol] 1.31 mg/dL Normal 0.60-1.40 [facility] ([place]) Comment on above: Performed By: #### M DW, GFR, ADIFF, CBC, BMP, ANEU, TROPHS ####[place] [address] Electrolyte Balance 4.0 mEq/L Normal 4.0-15.0 [facility] ([place]) Comment on above: Performed By: #### M DW, GFR, ADIFF, CBC, BMP, ANEU, TROPHS ####[place] [address] Glucose [Mass/Vol] 96 mg/dL Normal 82-115 Replaced by [facility] ([place]) Comment on above: Performed By: #### M DW, GFR, ADIFF, CBC, BMP, ANEU, TROPHS ####[address] [address] Potassium [Moles/Vol] 4.8 mmol/L Normal 3.5-5.0 [facility] ([place]) Comment on above: Result Comment: Spec imen slightly hemolyzed. Performed By: #### M DW, GFR, ADIFF, CBC, BMP, ANEU, TROPHS ####[address] [address] Sodium [Moles/Vol] 139 mmol/L Normal 136-145 Replaced by [facility] ([place]) Comment on above: Performed By: #### M DW, GFR, ADIFF, CBC, BMP, ANEU, TROPHS ####[address] [address] Urea nitrogen [Mass/Vol] 27.0 mg/dL High 8.0-22.0 [facility] ([place]) Comment on above: Performed By: #### M DW, GFR, ADIFF, CBC, BMP, ANEU, TROPHS ####[place] [address] CBCon 09-06-2023 Erythrocyte distribution width (RBC) [Ratio] 15.6 % High 11.5-15.5 [facility] ([place]) Comment on above: Performed By: #### M DW, GFR, ADIFF, CBC, BMP, ANEU, TROPHS ####[place] [address] Hematocrit (Bld) [Volume fraction] 27.8 % Low 40.0-52.0 [facility] ([place]) Comment on above: Performed By: #### M DW, GFR, ADIFF, CBC, BMP, ANEU, TROPHS ####[place] [address] Hgb 9.7 G/dL Low 13.0-17.5 [facility] ([place]) Comment on above: Performed By: #### M DW, GFR, ADIFF, CBC, BMP, ANEU, TROPHS ####[place] [address] MCH (RBC) [Entitic mass] 32.1 pg Normal 27.0-33.0 [facility] ([place]) Comment on above: Performed By: #### M DW, GFR, ADIFF, CBC, BMP, ANEU, TROPHS ####[place] [address] MCHC 34.8 G/dL Normal 32.0-36.0 [facility] ([place]) Comment on above: Performed By: #### M DW, GFR, ADIFF, CBC, BMP, ANEU, TROPHS ####[place] [address] MCV (RBC) [Entitic vol] 92.2 fL Normal 81.0-100.0 [facility] ([place]) Comment on above: Performed By: #### M DW, GFR, ADIFF, CBC, BMP, ANEU, TROPHS ####[place] [address] Platelet 172 10 3/mcL Normal 150-450 [facility] ([place]) Comment on above: Performed By: #### M DW, GFR, ADIFF, CBC, BMP, ANEU, TROPHS ####[place] [address] Platelet mean volume (Bld) [Entitic vol] 6.8 fL Normal 6.4-10.5 [facility] ([place]) Comment on above: Performed By: #### M DW, GFR, ADIFF, CBC, BMP, ANEU, TROPHS ####[place] [address] RBC 3.01 10 6/mcL Low 4.50-6.00 [facility] ([place]) Comment on above: Performed By: #### M DW, GFR, ADIFF, CBC, BMP, ANEU, TROPHS ####[place] [address] WBC 3.9 10 3/mcL Low 4.5-10.8 [facility] ([place]) Comment on above: Performed By: #### M DW, GFR, ADIFF, CBC, BMP, ANEU, TROPHS ####[place] [address] LABORATORYOrdered By: SYSTEM SYSTEM on 09-06-2023 Basophils [...] (S/P/Bld) [Vol rate/Area] ml/min/1.73sqm Invalid Interpretation Code [facility] Comment on above: Interpretive Data: GFR Population [...] [Vol rate/Area] 52 ml/min/1.73sqm Invalid Interpretation Code [facility] Comment on above: Interpretive Data: GFR Population [...] I High Sensitivity 10.42 ng/L Normal 0.00-54.00 [facility] ([place]) Comment on above: Performed By: #### M DW, GFR, ADIFF, CBC, BMP, ANEU, TROPHS ####[place] [id number] [address] [place] [address] XR CHEST 1 VIEWon 09-06-2023 XR CHEST 1 VIEW Normal [facility] ([place]) .Auto Diffon 09-02-2023 Basophil, Absolute 0.0 10 3/mcL Normal 0.0-0.2 [facility] ([place]) Comment on above: Performed By: #### A DIFF, CMP, GFR, ANEU, CBC ####[address] [place], [place] [address] Basophils/100 WBC (Bld) 0.9 % Normal 0.0-2.5 [facility] ([place]) Comment on above: Performed By: #### A DIFF, CMP, GFR, ANEU, CBC ####[address] [place], [place] [address] Eosinophil, Absolute 0.3 10 3/mcL Normal 0.0-0.4 [facility] ([place]) Comment on above: Performed By: #### A DIFF, CMP, GFR, ANEU, CBC ####[address] [place], [place] [address] Eosinophils/100 WBC (Bld) 6.3 % Normal 0.0-7.0 [facility] ([place]) Comment on above: Performed By: #### A DIFF, CMP, GFR, ANEU, CBC ####[address] [place], [place] [address] Lymphocyte, Absolute 0.4 10 3/mcL Low 0.8-3.9 [facility] ([place]) Comment on above: Performed By: #### A DIFF, CMP, GFR, ANEU, CBC ####[address] [place], [place] [address] Lymphocytes/100 WBC (Bld) 8.3 % Low 10.0-50.0 [facility] ([place]) Comment on above: Performed By: #### A DIFF, CMP, GFR, ANEU, CBC ####[address] [place], [place] [address] Monocyte, Absolute 0.6 10 3/mcL Normal 0.2-1.0 [facility] ([place]) Comment on above: Performed By: #### A DIFF, CMP, GFR, ANEU, CBC ####[address] [place], [place] [address] Monocytes/100 WBC (Bld) 13.7 % High 1.7-13.0 [facility] ([place]) Comment on above: Performed By: #### A DIFF, CMP, GFR, ANEU, CBC ####[address] [place], [place] [address] Neutrophils/100 WBC (Bld) 70.8 % Normal 37.0-80.0 [facility] ([place]) Comment on above: Performed By: #### A DIFF, CMP, GFR, ANEU, CBC ####[address] [place], [place] [address] .GFRon 09-02-2023 GFR 51 ml/min/1.73sqm Normal [facility] ([place]) Comment on above: Result Comment: GFR Population [...] A DIFF, CMP, GFR, ANEU, CBC ####[address] [place], [place] [address] GFR Non- 42 ml/min/1.73sqm Normal [facility] ([place]) Comment on above: Result Comment: GFR Population [...] DIFF, CMP, GFR, ANEU, CBC ####[address] [place], [place] [address] .NEUABSon 09-02-2023 Neutrophil, Absolute 3.3 10 3/mcL Normal 2.9-6.2 [facility] ([place]) Comment on above: Performed By: #### A DIFF, CMP, GFR, ANEU, CBC ####[address] [place], [place] [address] CBCon 09-02-2023 Erythrocyte distribution width (RBC) [Ratio] 15.5 % High 11.5-14.5 [facility] ([place]) Comment on above: Performed By: #### A DIFF, CMP, GFR, ANEU, CBC ####[address] [place], [place] [address] Hematocrit (Bld) [Volume fraction] 29.2 % Low 42.0-52.0 [facility] ([place]) Comment on above: Performed By: #### A DIFF, CMP, GFR, ANEU, CBC ####[address] [place], [place] [address] Hgb 9.7 G/dL Low 14.0-18.0 [facility] ([place]) Comment on above: Performed By: #### A DIFF, CMP, GFR, ANEU, CBC ####[address] [place], [place] [address] MCH (RBC) [Entitic mass] 30.5 pg Normal 27.0-31.2 [facility] ([place]) Comment on above: Performed By: #### A DIFF, CMP, GFR, ANEU, CBC ####[address] [place], [place] [address] MCHC 33.3 G/dL Normal 31.8-35.4 [facility] ([place]) Comment on above: Performed By: #### A DIFF, CMP, GFR, ANEU, CBC ####[address] [place], [place] [address] MCV (RBC) [Entitic vol] 91.7 fL Normal 80.0-94.0 [facility] ([place]) Comment on above: Performed By: #### A DIFF, CMP, GFR, ANEU, CBC ####[address] [place], [place] [address] Platelet 170 10 3/mcL Normal 130-400 [facility] ([place]) Comment on above: Performed By: #### A DIFF, CMP, GFR, ANEU, CBC ####[address] [place], [place] [address] Platelet mean volume (Bld) [Entitic vol] 7.1 fL Low 7.4-10.4 [facility] ([place]) Comment on above: Performed By: #### A DIFF, CMP, GFR, ANEU, CBC ####[address] [place], [place] [address] RBC 3.18 10 6/mcL Low 4.04-6.13 [facility] ([place]) Comment on above: Performed By: #### A DIFF, CMP, GFR, ANEU, CBC ####[address] [place], [place] [address] WBC 4.7 10 3/mcL Normal 4.6-10.8 [facility] ([place]) Comment on above: Performed By: #### A DIFF, CMP, GFR, ANEU, CBC ####[address] [place], [place] [address] CMPon 09-02-2023 Albumin Level 3.4 G/dL Normal 3.4-4.8 [facility] ([place]) Comment on above: Performed By: #### A DIFF, CMP, GFR, ANEU, CBC ####[address] [place], [place] [address] Albumin/Globulin [Mass ratio] 1.0 {ratio} Low 1.1-2.5 [facility] ([place]) Comment on above: Performed By: #### A DIFF, CMP, GFR, ANEU, CBC ####[address] [place], [place] [address] ALP [Catalytic activity/Vol] 65 U/L Normal 40-135 [facility] ([place]) Comment on above: Performed By: #### A DIFF, CMP, GFR, ANEU, CBC ####[address] [place], [place] [address] ALT [Catalytic activity/Vol] 27 U/L Normal 16-63 [facility] ([place]) Comment on above: Performed By: #### A DIFF, CMP, GFR, ANEU, CBC ####[address] [place], [place] [address] AST [Catalytic activity/Vol] 27 U/L Normal 10-40 [facility] ([place]) Comment on above: Performed By: #### A DIFF, CMP, GFR, ANEU, CBC ####[address] [place], [place] [address] Bili Total 0.3 mg/dL Normal 0.2-1.0 [facility] ([place]) Comment on above: Result Comment: Use of this assay is not recommended for patients undergoing treatment with eltrombopag due to the potential for falsely elevated results. Performed By: #### A DIFF, CMP, GFR, ANEU, CBC ####[address] [place], [place] [address] BUN/Creatinine Ratio 22 ratio Normal 7-27 [facility] ([place]) Comment on above: Performed By: #### A DIFF, CMP, GFR, ANEU, CBC ####[address] [place], [place] [address] Calcium [Mass/Vol] 9.2 mg/dL Normal 8.4-10.2 Replaced by [facility] ([place]) Comment on above: Performed By: #### A DIFF, CMP, GFR, ANEU, CBC ####[address] [place], [place] [address] Chloride [Moles/Vol] 104 mmol/L Normal 98-107 [facility] ([place]) Comment on above: Performed By: #### A DIFF, CMP, GFR, ANEU, CBC ####[address] [place], [place] [address] CO2 [Moles/Vol] 28 mmol/L Normal 23-31 [facility] ([place]) Comment on above: Performed By: #### A DIFF, CMP, GFR, ANEU, CBC ####[address] [place], [place] [address] Creatinine [Mass/Vol] 1.56 mg/dL High 0.70-1.30 [facility] ([place]) Comment on above: Performed By: #### A DIFF, CMP, GFR, ANEU, CBC ####[address] [place], [place] [address] Electrolyte Balance 8.0 mEq/L Normal 4.0-15.0 [facility] ([place]) Comment on above: Performed By: #### A DIFF, CMP, GFR, ANEU, CBC ####[address] [place], [place] [address] Globulin 3.5 G/dL Normal [facility] ([place]) Comment on above: Performed By: #### A DIFF, CMP, GFR, ANEU, CBC ####[address] [place], [place] [address] Glucose [Mass/Vol] 140 mg/dL High 83-110 Replaced by [facility] ([place]) Comment on above: Performed By: #### A DIFF, CMP, GFR, ANEU, CBC ####[address] [place], [place] [address] Potassium [Moles/Vol] 5.0 mmol/L Normal 3.5-5.1 [facility] ([place]) Comment on above: Performed By: #### A DIFF, CMP, GFR, ANEU, CBC ####[address] [place], [place] [address] Sodium [Moles/Vol] 140 mmol/L Normal 136-145 Replaced by [facility] ([place]) Comment on above: Performed By: #### A DIFF, CMP, GFR, ANEU, CBC ####[address] [place], [place] [address] Total Protein 6.9 G/dL Normal 6.4-8.2 [facility] ([place]) Comment on above: Performed By: #### A DIFF, CMP, GFR, ANEU, CBC ####[address] [place], [place] [address] Urea nitrogen [Mass/Vol] 34 mg/dL High 7-18 [facility] ([place]) Comment on above: Performed By: #### A DIFF, CMP, GFR, ANEU, CBC ####[address] [place], [place] [address] LABORATORYOrdered By: SYSTEM SYSTEM on 09-02-2023 Albumin [...] Basophil, Absolute 0.0 10 3/mcL Normal 0.0-0.2 [facility] ([place]) Comment on above: Performed By: #### C ERICK BACON, LIANG, GFR, ADIFF, BMP ####[address] [place], [place] [address] Basophils/100 WBC (Bld) 0.8 % Normal 0.0-2.5 [facility] ([place]) Comment on above: Performed By: #### ERICK JOHNSON, LIANG, GFR, ADIFF, BMP ####[address] [place], [place] [address] Eosinophil, Absolute 0.2 10 3/mcL Normal 0.0-0.4 [facility] ([place]) Comment on above: Performed By: #### ERICK JOHNSON, LIANG, GFR, ADIFF, BMP ####[address] [place], [place] [address] Eosinophils/100 WBC (Bld) 5.4 % Normal 0.0-7.0 [facility] ([place]) Comment on above: Performed By: #### ERICK JOHNSON, LIANG, GFR, ADIFF, BMP ####[address] [place], [place] [address] Lymphocyte, Absolute 0.3 10 3/mcL Low 0.8-3.9 [facility] ([place]) Comment on above: Performed By: #### ERICK JOHNSON, ANEU, GFR, ADIFF, BMP ####[address] [place], [place] [address] Lymphocytes/100 WBC (Bld) 8.2 % Low 10.0-50.0 [facility] ([place]) Comment on above: Performed By: #### C ERICK BACON, ANEU, GFR, ADIFF, BMP ####[address] [place], [place] [address] Monocyte, Absolute 0.5 10 3/mcL Normal 0.2-1.0 [facility] ([place]) Comment on above: Performed By: #### C ERICK BACON, ANEU, GFR, ADIFF, BMP ####[address] [place], [place] [address] Monocytes/100 WBC (Bld) 15.5 % High 1.7-13.0 [facility] ([place]) Comment on above: Performed By: #### C ERICK BACON, LIANG, GFR, ADIFF, BMP ####[address] [place], [place] [address] Neutrophils/100 WBC (Bld) 70.1 % Normal 37.0-80.0 [facility] ([place]) Comment on above: Performed By: #### C ERICK BACON, ANEU, GFR, ADIFF, BMP ####[address] [place], [place] [address] .GFRon 08-28-2023 GFR 34 ml/min/1.73sqm Normal [facility] ([place]) Comment on above: Result Comment: GFR Population [...] BACON, LIANG, GFR, ADIFF, BMP ####[address] [place], [place] [address] GFR Non- 28 ml/min/1.73sqm Normal [facility] ([place]) Comment on above: Result Comment: GFR Population [...] BACON, ANEU, GFR, ADIFF, BMP ####[address] [place], [place] [address] .MDWon 08-28-2023 Monocyte Distribution Width 19.90 Normal 0.00-20.00 [facility] ([place]) Comment on above: Result Comment: For ED adult patients suspected of sepsis, MDW<=20.0 does not rule out sepsis or risk of sepsis Performed By: #### C ERICK BACON, LIANG, GFR, ADIFF, BMP ####[address] [place], [place] [address] .NEUABSon 08-28-2023 Neutrophil, Absolute 2.4 10 3/mcL Low 2.9-6.2 [facility] ([place]) Comment on above: Performed By: #### C ERICK BACON, LIANG, GFR, ADIFF, BMP ####[address] [place], [place] [address] BMPon 08-28-2023 BUN/Creatinine Ratio 21 ratio Normal 7-27 [facility] ([place]) Comment on above: Performed By: #### C ERICK BACON, ANEU, GFR, ADIFF, BMP ####[address] [place], [place] [address] Calcium [Mass/Vol] 8.9 mg/dL Normal 8.4-10.2 Replaced by [facility] ([place]) Comment on above: Performed By: #### C ERICK BACON, LIANG, GFR, ADIFF, BMP ####[address] [place], [place] [address] Chloride [Moles/Vol] 103 mmol/L Normal 98-107 [facility] ([place]) Comment on above: Performed By: #### C ERICK BACON, LIANG, GFR, ADIFF, BMP ####[address] [place], [place] [address] CO2 [Moles/Vol] 25 mmol/L Normal 23-31 [facility] ([place]) Comment on above: Performed By: #### C ERICK BACON, LIANG, GFR, ADIFF, BMP ####[address] [place], [place] [address] Creatinine [Mass/Vol] 2.26 mg/dL High 0.70-1.30 [facility] ([place]) Comment on above: Performed By: #### ERICK JOHNSON, LIANG, GFR, ADIFF, BMP ####[address] [place], [place] [address] Electrolyte Balance 11.0 mEq/L Normal 4.0-15.0 [facility] ([place]) Comment on above: Performed By: #### ERICK JOHNSON, LIANG, GFR, ADIFF, BMP ####[address] [place], [place] [address] Glucose [Mass/Vol] 164 mg/dL High 83-110 Replaced by [facility] ([place]) Comment on above: Performed By: #### ERICK JOHNSON, LIANG, GFR, ADIFF, BMP ####[address] [place], [place] [address] Potassium [Moles/Vol] 4.8 mmol/L Normal 3.5-5.1 [facility] ([place]) Comment on above: Performed By: #### ERICK JOHNSON, LIANG, GFR, ADIFF, BMP ####[address] [place], [place] [address] Sodium [Moles/Vol] 139 mmol/L Normal 136-145 Replaced by [facility] ([place]) Comment on above: Performed By: #### C ERICK BACON ANEU, GFR, ADIFF, BMP ####[address] [place], [place] [address] Urea nitrogen [Mass/Vol] 48 mg/dL High 7-18 [facility] ([place]) Comment on above: Performed By: #### C ERICK BACON ANEU, GFR, ADIFF, BMP ####[address] [place], [place] [address] CBCon 08-28-2023 Erythrocyte distribution width (RBC) [Ratio] 15.7 % High 11.5-14.5 [facility] ([place]) Comment on above: Performed By: #### C ERICK BACON ANEU, GFR, ADIFF, BMP ####[address] [place], [place] [address] Hematocrit (Bld) [Volume fraction] 30.0 % Low 42.0-52.0 [facility] ([place]) Comment on above: Performed By: #### C ERICK BACON ANEU, GFR, ADIFF, BMP ####[address] [place], [place] [address] Hgb 10.0 G/dL Low 14.0-18.0 [facility] ([place]) Comment on above: Performed By: #### C ERICK BACON ANEU, GFR, ADIFF, BMP ####[address] [place], [place] [address] MCH (RBC) [Entitic mass] 30.4 pg Normal 27.0-31.2 [facility] ([place]) Comment on above: Performed By: #### C ERICK BACON ANEU, GFR, ADIFF, BMP ####[address] [place], [place] [address] MCHC 33.4 G/dL Normal 31.8-35.4 [facility] ([place]) Comment on above: Performed By: #### C ERICK BACON, LIANG, GFR, ADIFF, BMP ####[address] [place], [place] [address] MCV (RBC) [Entitic vol] 91.2 fL Normal 80.0-94.0 [facility] ([place]) Comment on above: Performed By: #### C ERICK BACON, LIANG, GFR, ADIFF, BMP ####[address] [place], [place] [address] Platelet 148 10 3/mcL Normal 130-400 [facility] ([place]) Comment on above: Performed By: #### ERICK JOHNSON, LIANG, GFR, ADIFF, BMP ####[address] [place], [place] [address] Platelet mean volume (Bld) [Entitic vol] 6.8 fL Low 7.4-10.4 [facility] ([place]) Comment on above: Performed By: #### C ERICK BACON, LIANG, GFR, ADIFF, BMP ####[address] [place], [place] [address] RBC 3.30 10 6/mcL Low 4.04-6.13 [facility] ([place]) Comment on above: Performed By: #### ERICK JOHNSON, LIANG, GFR, ADIFF, BMP ####[address] [place], [place] [address] WBC 3.5 10 3/mcL Low 4.6-10.8 [facility] ([place]) Comment on above: Performed By: #### ERICK JOHNSON, LIANG, GFR, ADIFF, BMP ####[address] [place], [place] [address] LABORATORYOrdered By: Barbara Hinson on 08-28-2023 Appearance [...] SS UAon 08-28-2023 Color (U) Yellow Normal [facility] ([place]) Comment on above: Performed By: #### U A ####[address] [place], [place] [address] Glucose (U) [Mass/Vol] Negative Normal Negative [facility] ([place]) Comment on above: Performed By: #### U A ####[address] [place], [place] [address] Ketones Ql (U) Negative Normal Negative [facility] ([place]) Comment on above: Performed By: #### U A ####[address] [place], [place] [address] UA Appear Clear Normal Clear [facility] ([place]) Comment on above: Performed By: #### U A ####[address] [place] [address] UA Blood Trace Abnormal Negative [facility] ([place]) Comment on above: Performed By: #### U A ####[address] [place] [address] UA Leuk Est Negative Normal Negative [facility] ([place]) Comment on above: Performed By: #### U A ####[address] [place], [place] [address] UA Nitrite Negative Normal Negative [facility] ([place]) Comment on above: Performed By: #### U A ####[address] [place] [address] UA pH 5.5 Normal 5.0 - 8.0 [facility] ([place]) Comment on above: Performed By: #### U A ####[address] [place], [place] [address] UA Protein Negative Normal Negative [facility] ([place]) Comment on above: Performed By: #### U A ####[address] [place] [address] UA Spec Grav 1.020 Normal 1.015-1.025 [facility] ([place]) Comment on above: Performed By: #### U A ####[address] [place], [place] [address] UA Specimen Type Clean Catch Normal [facility] ([place]) Comment on above: Performed By: #### U A ####[address] [place], [place] [address] UA Urobilinogen 0.2 E.U./dL Normal 0.2-1.0 [facility] ([place]) Comment on above: Performed By: #### U A ####[address] [place], [place] [address] Urobilinogen (U) [Mass/Vol] Negative Normal Negative [facility] ([place]) Comment on above: Performed By: #### U A ####[address] [place], [place] [address] US ABDOMEN LIMITEDon 023 US ABDOMEN LIMITED Normal Replaced by [facility] ([place]) .Auto Diffon 06-20-2023 Basophil, Absolute 0.0 10 3/mcL Normal 0.0-0.3 [facility] ([place]) Comment on above: Performed By: #### C BC, PSA, ADIFF, CMP, ANEU, LD, GFR ####[address] [address] Basophils/100 WBC (Bld) 1.1 % Normal 0.0-2.5 [facility] ([place]) Comment on above: Performed By: #### C BC, PSA, ADIFF, CMP, ANEU, LD, GFR ####[address] [address] Eosinophil, Absolute 0.3 10 3/mcL Normal 0.0-0.7 [facility] ([place]) Comment on above: Performed By: #### C BC, PSA, ADIFF, CMP, ANEU, LD, GFR ####[address] [address] Eosinophils/100 WBC (Bld) 8.9 % High 0.0-6.0 [facility] ([place]) Comment on above: Performed By: #### C BC, PSA, ADIFF, CMP, ANEU, LD, GFR ####[address] [address] Lymphocyte, Absolute 0.3 10 3/mcL Low 0.9-4.3 [facility] ([place]) Comment on above: Performed By: #### C BC, PSA, ADIFF, CMP, ANEU, LD, GFR ####[address] [address] Lymphocytes/100 WBC (Bld) 10.7 % Low 20.0-40.0 [facility] ([place]) Comment on above: Performed By: #### C BC, PSA, ADIFF, CMP, ANEU, LD, GFR ####[address] [address] Monocyte, Absolute 0.4 10 3/mcL Normal 0.1-1.4 [facility] ([place]) Comment on above: Performed By: #### C BC, PSA, ADIFF, CMP, ANEU, LD, GFR ####[address] [address] Monocytes/100 WBC (Bld) 15.6 % High 2.0-13.0 [facility] ([place]) Comment on above: Performed By: #### C BC, PSA, ADIFF, CMP, ANEU, LD, GFR ####[address] [address] Neutrophils/100 WBC (Bld) 63.7 % Normal 50.0-75.0 [facility] ([place]) Comment on above: Performed By: #### C BC, PSA, ADIFF, CMP, ANEU, LD, GFR ####[address] [address] .GFRon 06-20-2023 GFR Non- >60 Normal [facility] ([place]) Comment on above: Result Comment: GFR Population [...] BC, PSA, ADIFF, CMP, ANEU, LD, GFR ####[address] [address] GFR >60 Normal [facility] ([place]) Comment on above: Result Comment: GFR Population [...] BC, PSA, ADIFF, CMP, ANEU, LD, GFR ####[place] [address] .NEUABSon 06-20-2023 Neutrophil, Absolute 1.8 10 3/mcL Low 2.3-8.1 [facility] ([place]) Comment on above: Performed By: #### C BC, PSA, ADIFF, CMP, ANEU, LD, GFR ####[place] [address] CBCon 06-20-2023 Erythrocyte distribution width (RBC) [Ratio] 14.4 % Normal 11.5-15.5 [facility] ([place]) Comment on above: Performed By: #### C BC, PSA, ADIFF, CMP, ANEU, LD, GFR ####[place] [address] Hematocrit (Bld) [Volume fraction] 33.6 % Low 40.0-52.0 [facility] ([place]) Comment on above: Performed By: #### C BC, PSA, ADIFF, CMP, ANEU, LD, GFR ####[place] [address] Hgb 11.1 G/dL Low 13.0-17.5 [facility] ([place]) Comment on above: Performed By: #### C BC, PSA, ADIFF, CMP, ANEU, LD, GFR ####[place] [address] MCH (RBC) [Entitic mass] 29.8 pg Normal 27.0-33.0 [facility] ([place]) Comment on above: Performed By: #### C BC, PSA, ADIFF, CMP, ANEU, LD, GFR ####[place] [address] MCHC 32.9 G/dL Normal 32.0-36.0 [facility] ([place]) Comment on above: Performed By: #### C BC, PSA, ADIFF, CMP, ANEU, LD, GFR ####[place] [address] MCV (RBC) [Entitic vol] 90.5 fL Normal 81.0-100.0 [facility] ([place]) Comment on above: Performed By: #### C BC, PSA, ADIFF, CMP, ANEU, LD, GFR ####[place] [address] Platelet 129 10 3/mcL Low 150-450 [facility] ([place]) Comment on above: Performed By: #### C BC, PSA, ADIFF, CMP, ANEU, LD, GFR ####[place] [address] Platelet mean volume (Bld) [Entitic vol] 7.2 fL Normal 6.4-10.5 [facility] ([place]) Comment on above: Performed By: #### C BC, PSA, ADIFF, CMP, ANEU, LD, GFR ####[place] [address] RBC 3.72 10 6/mcL Low 4.50-6.00 [facility] ([place]) Comment on above: Performed By: #### C BC, PSA, ADIFF, CMP, ANEU, LD, GFR ####[place] [address] WBC 2.8 10 3/mcL Low 4.5-10.8 [facility] ([place]) Comment on above: Performed By: #### C BC, PSA, ADIFF, CMP, ANEU, LD, GFR ####[place] [address] CMPon 06-20-2023 Albumin Level 3.4 G/dL Normal 3.2-4.8 [facility] ([place]) Comment on above: Performed By: #### C BC, PSA, ADIFF, CMP, ANEU, LD, GFR ####[address] [address] Albumin/Globulin [Mass ratio] 1.0 {ratio} Normal 0.9-1.6 [facility] ([place]) Comment on above: Performed By: #### C BC, PSA, ADIFF, CMP, ANEU, LD, GFR ####[address] [address] ALP [Catalytic activity/Vol] 58 U/L Normal 38-126 [facility] ([place]) Comment on above: Performed By: #### C BC, PSA, ADIFF, CMP, ANEU, LD, GFR ####[address] [address] ALT [Catalytic activity/Vol] 20 U/L Normal 12-55 [facility] ([place]) Comment on above: Performed By: #### C BC, PSA, ADIFF, CMP, ANEU, LD, GFR ####[address] [address] AST [Catalytic activity/Vol] 30 U/L Normal 8-34 [facility] ([place]) Comment on above: Performed By: #### C BC, PSA, ADIFF, CMP, ANEU, LD, GFR ####[address] [address] Bili Total 0.30 mg/dL Normal 0.20-1.20 [facility] ([place]) Comment on above: Result Comment: Use of this assay is not recommended for patients undergoing treatment with eltrombopag due to the potential for falsely elevated results. Performed By: #### C BC, PSA, ADIFF, CMP, ANEU, LD, GFR ####[address] [address] BUN/Creatinine Ratio 25.0 ratio High 10.0-22.0 [facility] ([place]) Comment on above: Performed By: #### C BC, PSA, ADIFF, CMP, ANEU, LD, GFR ####[address] [address] Calcium [Mass/Vol] 9.3 mg/dL Normal 8.7-10.4 Replaced by [facility] ([place]) Comment on above: Performed By: #### C BC, PSA, ADIFF, CMP, ANEU, LD, GFR ####[address] [address] Chloride [Moles/Vol] 107 mmol/L Normal 98-110 [facility] ([place]) Comment on above: Performed By: #### C BC, PSA, ADIFF, CMP, ANEU, LD, GFR ####[address] [address] CO2 [Moles/Vol] 27 mmol/L Normal 22-32 [facility] ([place]) Comment on above: Performed By: #### C BC, PSA, ADIFF, CMP, ANEU, LD, GFR ####[place] [address] Creatinine [Mass/Vol] 1.12 mg/dL Normal 0.60-1.40 [facility] ([place]) Comment on above: Performed By: #### C BC, PSA, ADIFF, CMP, ANEU, LD, GFR ####[place] [address] Electrolyte Balance 4.0 mEq/L Normal 4.0-15.0 [facility] ([place]) Comment on above: Performed By: #### C BC, PSA, ADIFF, CMP, ANEU, LD, GFR ####[place] [id number] Globulin 3.5 G/dL Normal 1.5-3.8 [facility] ([place]) Comment on above: Performed By: #### C BC, PSA, ADIFF, CMP, ANEU, LD, GFR ####[place] [address] Glucose [Mass/Vol] 106 mg/dL Normal 82-115 Replaced by [facility] ([place]) Comment on above: Performed By: #### C BC, PSA, ADIFF, CMP, ANEU, LD, GFR ####[address] [address] Potassium [Moles/Vol] 4.4 mmol/L Normal 3.5-5.0 [facility] ([place]) Comment on above: Result Comment: Spec imen slightly hemolyzed. Performed By: #### C BC, PSA, ADIFF, CMP, ANEU, LD, GFR ####[address] [address] Sodium [Moles/Vol] 138 mmol/L Normal 136-145 Replaced by [facility] ([place]) Comment on above: Performed By: #### C BC, PSA, ADIFF, CMP, ANEU, LD, GFR ####[place] [address] [place] [address] Total Protein 6.9 G/dL Normal 5.7-8.2 [facility] ([place]) Comment on above: Result Comment: No te - New Reference Range in effect 20 Performed By: #### C BC, PSA, ADIFF, CMP, ANEU, LD, GFR ####[address] [address] Urea nitrogen [Mass/Vol] 28.0 mg/dL High 8.0-22.0 [facility] ([place]) Comment on above: Performed By: #### C BC, PSA, ADIFF, CMP, ANEU, LD, GFR ####[address] [address] LABORATORYOrdered By: SYSTEM SYSTEM on 06-20-2023 Albumin [...] LDHon 06-20-2023 LDH 240 U/L Normal 120-246 [facility] ([place]) Comment on above: Performed By: #### C BC, PSA, ADIFF, CMP, ANEU, LD, GFR ####[place] [address] PSAon 06-20-2023 Prostate Specific Antigen 0.77 ng/mL Normal 0.02-4.00 [facility] ([place]) Comment on above: Result Comment: Barbara ent results determined by assays using different manufacturers for methods may not be comparable. Performed By: #### C BC, PSA, ADIFF, CMP, ANEU, LD, GFR ####[place] [address] .GFRon 06-01-2023 GFR Non- 53 ml/min/1.73sqm Normal [facility] ([place]) Comment on above: Result Comment: GFR Population [...] B MP, MDW, ADIFF, GFR, CBC, ANEU ####[place] [address] GFR >60 Normal [facility] ([place]) Comment on above: Result Comment: GFR Population [...] B ERICK CALVO, EZRA, GFR, CBC, ANEU ####[address] [address] BMPon 06-01-2023 BUN/Creatinine Ratio 21.1 ratio Normal 10.0-22.0 [facility] ([place]) Comment on above: Performed By: #### B ERICK CALVO, EZRA, GFR, CBC, ANEU ####[place] [address] Calcium [Mass/Vol] 10.4 mg/dL Normal 8.7-10.4 Replaced by [facility] ([place]) Comment on above: Performed By: #### B ERICK CALVO, EZRA, GFR, CBC, ANEU ####[place] [address] Chloride [Moles/Vol] 104 mmol/L Normal 98-110 [facility] ([place]) Comment on above: Performed By: #### B ERICK CALVO, EZRA, GFR, CBC, ANEU ####[place] [address] CO2 [Moles/Vol] 27 mmol/L Normal 22-32 [facility] ([place]) Comment on above: Performed By: #### B ERICK CALVO, EZRA, GFR, CBC, ANEU ####[place] [address] Creatinine [Mass/Vol] 1.28 mg/dL Normal 0.60-1.40 [facility] ([place]) Comment on above: Performed By: #### ERICK Chamorro MP, EZRA, GFR, CBC, ANEU ####[place] [address] Electrolyte Balance 6.0 mEq/L Normal 4.0-15.0 [facility] ([place]) Comment on above: Performed By: #### ERICK Chamorro MP, EZRA, GFR, CBC, ANEU ####[place] [address] Glucose [Mass/Vol] 116 mg/dL High 82-115 Replaced by [facility] ([place]) Comment on above: Performed By: #### B ERICK CALVO, ADIFF, GFR, CBC, ANEU ####[facility] [place] [address] Potassium [Moles/Vol] 4.6 mmol/L Normal 3.5-5.0 [facility] ([place]) Comment on above: Performed By: #### B ERICK CALVO, EZRA, GFR, CBC, ANEU ####[place] [address] [place] [address] Sodium [Moles/Vol] 137 mmol/L Normal 136-145 Replaced by [facility] ([place]) Comment on above: Performed By: #### B ERICK CALVO, ADSERGEI, GFR, CBC, ANEU ####[place] [address] [place] [address] Urea nitrogen [Mass/Vol] 27.0 mg/dL High 8.0-22.0 [facility] ([place]) Comment on above: Performed By: #### B ERICK CALVO, EZRA, GFR, CBC, ANEU ####[address] [address] [address] ABD/PELVIS W/ IV CONTRAST ONLYon 06-01-2023 CT ABD/PELVIS W/ IV CONTRAST ONLY Normal [facility] ([place]) LABORATORYOrdered By: Sanjuanita Prater on 06-01-2023 Appearance [...] SS UAon 06-01-2023 Color (U) Yellow Normal [facility] ([place]) Comment on above: Performed By: #### U A ####[place] [address] Glucose (U) [Mass/Vol] Negative Normal Negative [facility] ([place]) Comment on above: Performed By: #### U A ####[place] [address] Ketones Ql (U) Negative Normal Neg-Trace [facility] ([place]) Comment on above: Performed By: #### U A ####[place] [address] UA Appear Clear Normal Clear [facility] ([place]) Comment on above: Performed By: #### U A ####[place] [address] UA Blood Negative Normal Neg-Trace [facility] ([place]) Comment on above: Performed By: #### U A ####[place] [address] UA Leuk Est Negative Normal Negative [facility] ([place]) Comment on above: Performed By: #### U A ####[place] [address] UA Nitrite Negative Normal Negative [facility] ([place]) Comment on above: Performed By: #### U A ####[place] [address] UA pH 6.0 Normal 5.0 - 8.0 [facility] ([place]) Comment on above: Performed By: #### U A ####[place] [id number] UA Protein Negative Normal Negative [facility] ([place]) Comment on above: Performed By: #### U A ####[place] [address] UA Spec Grav >=1.030 Abnormal 1.006-1.029 [facility] ([place]) Comment on above: Performed By: #### U A ####[place] [address] UA Specimen Type Clean Catch Normal [facility] ([place]) Comment on above: Performed By: #### U A ####[place] [address] UA Urobilinogen 0.2 E.U./dL Normal 0.2-1.0 [facility] ([place]) Comment on above: Performed By: #### U A ####[place] [address] Urobilinogen (U) [Mass/Vol] Negative Normal Neg-Trace [facility] ([place]) Comment on above: Performed By: #### U A ####[place] [address] .Auto Diffon 05-31-2023 Basophil, Absolute 0.0 10 3/mcL Normal 0.0-0.3 [facility] ([place]) Comment on above: Performed By: #### B ERICK CALVO, ADIFF, GFR, CBC, ANEU ####[place] [address] Basophils/100 WBC (Bld) 0.3 % Normal 0.0-2.5 [facility] ([place]) Comment on above: Performed By: #### B ERICK CALVO, ADIFF, GFR, CBC, ANEU ####[place] [address] Eosinophil, Absolute 0.4 10 3/mcL Normal 0.0-0.7 [facility] ([place]) Comment on above: Performed By: #### B ERICK CALVO, ADIFF, GFR, CBC, ANEU ####[place] [address] Eosinophils/100 WBC (Bld) 4.1 % Normal 0.0-6.0 [facility] ([place]) Comment on above: Performed By: #### B ERICK CALVO, ADIFF, GFR, CBC, ANEU ####[address] [address] Lymphocyte, Absolute 0.8 10 3/mcL Low 0.9-4.3 [facility] ([place]) Comment on above: Performed By: #### B LUBNA, ERICK, ADIFF, GFR, CBC, ANEU ####[address] [address] Lymphocytes/100 WBC (Bld) 8.3 % Low 20.0-40.0 [facility] ([place]) Comment on above: Performed By: #### B LUBNA, ERICK, ADIFF, GFR, CBC, ANEU ####[address] [address] Monocyte, Absolute 0.8 10 3/mcL Normal 0.1-1.4 [facility] ([place]) Comment on above: Performed By: #### B LUBNA, ERICK, ADIFF, GFR, CBC, ANEU ####[address] [address] Monocytes/100 WBC (Bld) 8.8 % Normal 2.0-13.0 [facility] ([place]) Comment on above: Performed By: #### B LUBNA, ERICK, ADIFF, GFR, CBC, ANEU ####[address] [address] Neutrophils/100 WBC (Bld) 78.5 % High 50.0-75.0 [facility] ([place]) Comment on above: Performed By: #### B LUBNA, W, ADIFF, GFR, CBC, ANEU ####[address] [address] .MDWon 05-31-2023 Monocyte Distribution Width 17.55 Normal 0.00-20.00 [facility] ([place]) Comment on above: Result Comment: For ED adult patients suspected of sepsis, MDW<=20.0 does not rule out sepsis or risk of sepsis Performed By: #### B LUBNA, MDW, ADIFF, GFR, CBC, ANEU ####[place] [address] .NEUABSon 05-31-2023 Neutrophil, Absolute 7.2 10 3/mcL Normal 2.3-8.1 [facility] ([place]) Comment on above: Performed By: #### B ERICK CALVO, EZRA, GFR, CBC, ANEU ####[place] [address] CBCon 05-31-2023 Erythrocyte distribution width (RBC) [Ratio] 14.7 % Normal 11.5-15.5 [facility] ([place]) Comment on above: Performed By: #### B ERICK CALVO ADIFF, GFR, CBC, ANEU ####[place] [address] Hematocrit (Bld) [Volume fraction] 37.7 % Low 40.0-52.0 [facility] ([place]) Comment on above: Performed By: #### B ERICK CALVO ADIFF, GFR, CBC, ANEU ####[place] [address] Hgb 12.4 G/dL Low 13.0-17.5 [facility] ([place]) Comment on above: Performed By: #### B ERICK CALVO ADIFF, GFR, CBC, ANEU ####[place] [address] MCH (RBC) [Entitic mass] 29.5 pg Normal 27.0-33.0 [facility] ([place]) Comment on above: Performed By: #### B ERICK CALVO ADIFF, GFR, CBC, ANEU ####[place] [address] MCHC 32.9 G/dL Normal 32.0-36.0 [facility] ([place]) Comment on above: Performed By: #### B ERICK CALVO ADIFF, GFR, CBC, ANEU ####[place] [address] MCV (RBC) [Entitic vol] 89.8 fL Normal 81.0-100.0 [facility] ([place]) Comment on above: Performed By: #### B ERICK CALVO, EZRA, GFR, CBC, ANEU ####[place] [address] Platelet 171 10 3/mcL Normal 150-450 [facility] ([place]) Comment on above: Performed By: #### B ERICK CALVO, ADSERGEI, GFR, CBC, ANEU ####[place] [address] Platelet mean volume (Bld) [Entitic vol] 8.1 fL Normal 6.4-10.5 [facility] ([place]) Comment on above: Performed By: #### B ERICK CALVO, EZRA, GFR, CBC, ANEU ####[place] [address] RBC 4.20 10 6/mcL Low 4.50-6.00 [facility] ([place]) Comment on above: Performed By: #### B ERICK CALVO, EZRA, GFR, CBC, ANEU ####[place] [address] WBC 9.2 10 3/mcL Normal 4.5-10.8 [facility] ([place]) Comment on above: Performed By: #### B ERICK CALVO, ADSERGEI, GFR, CBC, ANEU ####[place] [address] LABORATORYOrdered By: SYSTEM SYSTEM on 05-31-2023 Basophils [...] [Vol rate/Area] 53 ml/min/1.73sqm Invalid Interpretation Code [facility] Comment on above: Interpretive Data: GFR Population [...] Basophil, Absolute 0.1 10 3/mcL Normal 0.0-0.2 [facility] ([place]) Comment on above: Performed By: #### I BC, A1C, FERR, GFR, CBC, CMP, ADIFF, ANEU, FE, LIPID ####[address] [place], [place] [address] Basophils/100 WBC (Bld) 1.4 % Normal 0.0-2.5 [facility] ([place]) Comment on above: Performed By: #### I BC, A1C, FERR, GFR, CBC, CMP, ADIFF, ANEU, FE, LIPID ####[address] [place], [place] [address] Eosinophil, Absolute 0.4 10 3/mcL Normal 0.0-0.4 [facility] ([place]) Comment on above: Performed By: #### I BC, A1C, FERR, GFR, CBC, CMP, ADIFF, ANEU, FE, LIPID ####[address] [place], [place] [address] Eosinophils/100 WBC (Bld) 9.4 % High 0.0-7.0 [facility] ([place]) Comment on above: Performed By: #### I BC, A1C, FERR, GFR, CBC, CMP, ADIFF, ANEU, FE, LIPID ####[address] [place], [place] [address] Lymphocyte, Absolute 0.8 10 3/mcL Normal 0.8-3.9 [facility] ([place]) Comment on above: Performed By: #### I BC, A1C, FERR, GFR, CBC, CMP, ADIFF, ANEU, FE, LIPID ####[address] [place], [place] [address] Lymphocytes/100 WBC (Bld) 20.4 % Normal 10.0-50.0 [facility] ([place]) Comment on above: Performed By: #### I BC, A1C, FERR, GFR, CBC, CMP, ADIFF, ANEU, FE, LIPID ####[address] [place], [place] [address] Monocyte, Absolute 0.6 10 3/mcL Normal 0.2-1.0 [facility] ([place]) Comment on above: Performed By: #### I BC, A1C, FERR, GFR, CBC, CMP, ADIFF, ANEU, FE, LIPID ####[address] [place], [place] [address] Monocytes/100 WBC (Bld) 15.6 % High 1.7-13.0 [facility] ([place]) Comment on above: Performed By: #### I BC, A1C, FERR, GFR, CBC, CMP, ADIFF, ANEU, FE, LIPID ####[address] [place], [place] [address] Neutrophils/100 WBC (Bld) 53.2 % Normal 37.0-80.0 [facility] ([place]) Comment on above: Performed By: #### I BC, A1C, FERR, GFR, CBC, CMP, ADIFF, ANEU, FE, LIPID ####[address] [place], [place] [address] .GFRon 05-23-2023 GFR Non- 50 ml/min/1.73sqm Normal [facility] ([place]) Comment on above: Result Comment: GFR [...] CMP, ADIFF, ANEU, FE, LIPID ####[address] [place], [place] [address] GFR 61 ml/min/1.73sqm Normal [facility] ([place]) Comment on above: Result Comment: GFR Population [...] CMP, ADIFF, ANEU, FE, LIPID ####[address] [place], [place] [address] .NEUABSon 05-23-2023 Neutrophil, Absolute 2.1 10 3/mcL Low 2.9-6.2 [facility] ([place]) Comment on above: Performed By: #### I BC, A1C, FERR, GFR, CBC, CMP, ADIFF, ANEU, FE, LIPID ####[address] [place], [place] [address] A1Con 05-23-2023 HbA1c (Bld) [Mass fraction] 6.6 % High 4.3-6.4 [facility] ([place]) Comment on above: Performed By: #### I BC, A1C, FERR, GFR, CBC, CMP, ADIFF, ANEU, FE, LIPID ####[address] [place], [place] [address] CBCon 05-23-2023 Erythrocyte distribution width (RBC) [Ratio] 15.3 % High 11.5-14.5 [facility] ([place]) Comment on above: Performed By: #### I BC, A1C, FERR, GFR, CBC, CMP, ADIFF, ANEU, FE, LIPID ####[address] [place], [place] [address] Hematocrit (Bld) [Volume fraction] 35.8 % Low 42.0-52.0 [facility] ([place]) Comment on above: Performed By: #### I BC, A1C, FERR, GFR, CBC, CMP, ADIFF, ANEU, FE, LIPID ####[address] [place], [place] [address] Hgb 11.9 G/dL Low 14.0-18.0 [facility] ([place]) Comment on above: Performed By: #### I BC, A1C, FERR, GFR, CBC, CMP, ADIFF, ANEU, FE, LIPID ####[address] [place], [place] [address] MCH (RBC) [Entitic mass] 29.3 pg Normal 27.0-31.2 [facility] ([place]) Comment on above: Performed By: #### I BC, A1C, FERR, GFR, CBC, CMP, ADIFF, ANEU, FE, LIPID ####[address] [place], [place] [address] MCHC 33.4 G/dL Normal 31.8-35.4 [facility] ([place]) Comment on above: Performed By: #### I BC, A1C, FERR, GFR, CBC, CMP, ADIFF, ANEU, FE, LIPID ####[address] [place], [place] [address] MCV (RBC) [Entitic vol] 87.9 fL Normal 80.0-94.0 [facility] ([place]) Comment on above: Performed By: #### I BC, A1C, FERR, GFR, CBC, CMP, ADIFF, ANEU, FE, LIPID ####[address] [place], [place] [address] Platelet 142 10 3/mcL Normal 130-400 [facility] ([place]) Comment on above: Performed By: #### I BC, A1C, FERR, GFR, CBC, CMP, ADIFF, ANEU, FE, LIPID ####[address] [place], [place] [address] Platelet mean volume (Bld) [Entitic vol] 8.1 fL Normal 7.4-10.4 [facility] ([place]) Comment on above: Performed By: #### I BC, A1C, FERR, GFR, CBC, CMP, ADIFF, ANEU, FE, LIPID ####[address] [place], [place] [address] RBC 4.07 10 6/mcL Normal 4.04-6.13 [facility] ([place]) Comment on above: Performed By: #### I BC, A1C, FERR, GFR, CBC, CMP, ADIFF, ANEU, FE, LIPID ####[address] [place], [place] [address] WBC 4.0 10 3/mcL Low 4.6-10.8 [facility] ([place]) Comment on above: Performed By: #### I BC, A1C, FERR, GFR, CBC, CMP, ADIFF, ANEU, FE, LIPID ####[address] [place], [place] [address] CMPon 05-23-2023 Albumin Level 3.8 G/dL Normal 3.4-4.8 [facility]) Comment on above: Performed By: #### I BC, A1C, FERR, GFR, CBC, CMP, ADIFF, ANEU, FE, LIPID ####[address] [place], [place] [address] Albumin/Globulin [Mass ratio] 1.1 {ratio} Normal 1.1-2.5 [facility]) Comment on above: Performed By: #### I BC, A1C, FERR, GFR, CBC, CMP, ADIFF, ANEU, FE, LIPID ####[address] [place], [place] [address] ALP [Catalytic activity/Vol] 68 U/L Normal 40-135 [facility] ([place]) Comment on above: Performed By: #### I BC, A1C, FERR, GFR, CBC, CMP, ADIFF, ANEU, FE, LIPID ####[address] [place], [place] [address] ALT [Catalytic activity/Vol] 27 U/L Normal 16-63 [facility] ([place]) Comment on above: Performed By: #### I BC, A1C, FERR, GFR, CBC, CMP, ADIFF, ANEU, FE, LIPID ####[address] [place], [place] [address] AST [Catalytic activity/Vol] 25 U/L Normal 10-40 [facility] ([place]) Comment on above: Performed By: #### I BC, A1C, FERR, GFR, CBC, CMP, ADIFF, ANEU, FE, LIPID ####[address] [place], [place] [address] Bili Total 0.3 mg/dL Normal 0.2-1.0 [facility] ([place]) Comment on above: Result Comment: Use of this assay is not recommended for patients undergoing treatment with eltrombopag due to the potential for falsely elevated results. Performed By: #### I BC, A1C, FERR, GFR, CBC, CMP, ADIFF, ANEU, FE, LIPID ####[address] [place], [place] [address] BUN/Creatinine Ratio 23 ratio Normal 7-27 [facility] ([place]) Comment on above: Performed By: #### I BC, A1C, FERR, GFR, CBC, CMP, ADIFF, ANEU, FE, LIPID ####[address] [place], [place] [address] Calcium [Mass/Vol] 9.2 mg/dL Normal 8.4-10.2 Replaced by [facility] ([place]) Comment on above: Performed By: #### I BC, A1C, FERR, GFR, CBC, CMP, ADIFF, ANEU, FE, LIPID ####[address] [place], [place] [address] Chloride [Moles/Vol] 101 mmol/L Normal 98-107 [facility] ([place]) Comment on above: Performed By: #### I BC, A1C, FERR, GFR, CBC, CMP, ADIFF, ANEU, FE, LIPID ####[address] [place], [place] [address] CO2 [Moles/Vol] 30 mmol/L Normal 23-31 [facility] ([place]) Comment on above: Performed By: #### I BC, A1C, FERR, GFR, CBC, CMP, ADIFF, ANEU, FE, LIPID ####[address] [place], [place] [address] Creatinine [Mass/Vol] 1.35 mg/dL High 0.70-1.30 [facility] ([place]) Comment on above: Performed By: #### I BC, A1C, FERR, GFR, CBC, CMP, ADIFF, ANEU, FE, LIPID ####[address] [place], [place] [address] Electrolyte Balance 7.0 mEq/L Normal 4.0-15.0 [facility] ([place]) Comment on above: Performed By: #### I BC, A1C, FERR, GFR, CBC, CMP, ADIFF, ANEU, FE, LIPID ####[address] [place], [place] [address] Globulin 3.6 G/dL Normal [facility] ([place]) Comment on above: Performed By: #### I BC, A1C, FERR, GFR, CBC, CMP, ADIFF, ANEU, FE, LIPID ####[address] [place], [place] [address] Glucose [Mass/Vol] 98 mg/dL Normal 83-110 Replaced by [facility] ([place]) Comment on above: Performed By: #### I BC, A1C, FERR, GFR, CBC, CMP, ADIFF, ANEU, FE, LIPID ####[address] [place], [place] [address] Potassium [Moles/Vol] 5.2 mmol/L High 3.5-5.1 [facility] ([place]) Comment on above: Performed By: #### I BC, A1C, FERR, GFR, CBC, CMP, ADIFF, ANEU, FE, LIPID ####[address] [place], [place] [address] Sodium [Moles/Vol] 138 mmol/L Normal 136-145 Replaced by [facility] ([place]) Comment on above: Performed By: #### I BC, A1C, FERR, GFR, CBC, CMP, ADIFF, ANEU, FE, LIPID ####[address] [place], [place] [address] Total Protein 7.4 G/dL Normal 6.4-8.2 [facility] ([place]) Comment on above: Performed By: #### I BC, A1C, FERR, GFR, CBC, CMP, ADIFF, ANEU, FE, LIPID ####[address] [place], [place] [address] Urea nitrogen [Mass/Vol] 31 mg/dL High 03-22 [facility] ([place]) Comment on above: Performed By: #### I BC, A1C, FERR, GFR, CBC, CMP, ADIFF, ANEU, FE, LIPID ####[address] [place], [place] [address] FEon 05-23-2023 Iron [Mass/Vol] 75 ug/dL Normal 65-175 [facility] ([place]) Comment on above: Performed By: #### I BC, A1C, FERR, GFR, CBC, CMP, ADIFF, ANEU, FE, LIPID ####[address] [place], [place] [address] Mary 05-23-2023 Ferritin [Mass/Vol] 194.0 ng/mL Normal 26.0-388.0 [facility]) Comment on above: Performed By: #### I BC, A1C, FERR, GFR, CBC, CMP, ADIFF, ANEU, FE, LIPID ####[address] [place], [place] [address] IBCon 05-23-2023 TIBC 321 mcg/dL Normal 250-450 [facility] ([place]) Comment on above: Performed By: #### I BC, A1C, FERR, GFR, CBC, CMP, ADIFF, ANEU, FE, LIPID ####[address] [place], [place] [address] LABORATORYOrdered By: SYSTEM SYSTEM on 05-23-2023 Albumin [...] 05-23-2023 Cholesterol [Mass/Vol] 238 mg/dL High 0-200 [facility] ([place]) Comment on above: Result Comment: Chol esterol Reference Interval:Less than 200 [id number] Borderline high ujvk625 and above High risk Performed By: #### I BC, A1C, FERR, GFR, CBC, CMP, ADIFF, ANEU, FE, LIPID ####[address] [place], [place] [address] Cholesterol in HDL [Mass/Vol] 48 mg/dL Normal 40-60 [facility] ([place]) Comment on above: Performed By: #### I BC, A1C, FERR, GFR, CBC, CMP, ADIFF, ANEU, FE, LIPID ####[address] [place], [place] [address] Cholesterol in LDL [Mass/Vol] 173 mg/dL High 0-130 [facility] ([place]) Comment on above: Performed By: #### I BC, A1C, FERR, GFR, CBC, CMP, ADIFF, ANEU, FE, LIPID ####[address] [place], [place] [address] Triglyceride [Mass/Vol] 87 mg/dL Normal 0-150 [facility] ([place]) Comment on above: Result Comment: Trig lyceride Reference Interval:Less than 150 [id number] Borderline high [id number] High xzbg667 or higher Very high risk Performed By: #### I BC, A1C, FERR, GFR, CBC, CMP, ADIFF, ANEU, FE, LIPID ####[address] [place], [place] [address] LABORATORYOrdered By: SYSTEM SYSTEM on 03-15-2023 Albumin [...] LEVOFLOXACIN <2 S MEROPENEM <1 S Normal [facility] Comment on above: Performed By: #### M 100.94069 ####[facility] [id number] [place], [place] [address]Ph# [phone] UA COMPLETEon 09-15-2017 UA APPEARANCE TURBID Normal CLEAR [facility] Comment on above: Performed By: #### L 600.89330, L600.63435 ####[facility] [id number] [place], [place] [address]Ze# [phone] UA BILIRUBIN Negative Normal NEGATIVE [facility] Comment on above: Performed By: #### L 600.41052, L600.77940 ####[facility] [id number] [place], [place] [address]Fi# [phone] UA BLOOD Negative Normal NEGATIVE [facility] Comment on above: Performed By: #### L 600.99058, L600.24858 ####[facility] [id number] [place], [place] [address]Sk# [phone] UA COMMENT UA MICROSCOPIC Normal N [facility] Comment on above: Performed By: #### L 600.84282, L600.24563 ####[facility] [id number] [place], [place] [address]Kq# [phone] UA KETONE Negative Normal NEGATIVE [facility] Comment on above: Performed By: #### L 600.88510, L600.63610 ####[facility] [id number] [place] [address]Ux# [phone] UA LK ESTERASE LARGE Normal NEGATIVE [facility] Comment on above: Performed By: #### L 600.40261, L600.42787 ####[facility] [id number] [place] [address]Fs# [phone] UA NITRITE Positive Normal NEGATIVE [facility] Comment on above: Performed By: #### L 600.14033, L600.84920 ####[address] [address]Bk# [phone] UA PH 8.5 Normal 5-6 [facility] Comment on above: Performed By: #### L 600.44010, L600.87384 ####[facility] [id number] [place] [address]Ah# [phone] UA PROTEIN 30 MG/DL Normal NEGATIVE [facility] Comment on above: Performed By: #### L 600.62716, L600.58055 ####[facility] [id number] [place] [address]Li# [phone] UA SPEC GRAV 1.021 Normal 1.005-1.030 [facility] Comment on above: Performed By: #### L 600.26993, L600.12884 ####[facility] [id number] [place] [address]Km# [phone] UA UROBILINOGEN NORMAL Normal NORMAL [facility] Comment on above: Performed By: #### L 600.91335, L600.24062 ####[facility] [id number] [place] [address]Bw# [phone] Urine, color YELLOW Normal [facility] Comment on above: Performed By: #### L 600.79550, L600.42477 ####[facility] [id number] [place] [address]Gr# [phone] Urine, glucose Negative Normal NORMAL [facility] Comment on above: Performed By: #### L 600.93762, L600.02063 ####[facility] [id number] [place] [address]Ka# [phone] UA MICROSCOPICon 09-15-2017 AMORPHOUS MODERATE Normal [facility] Comment on above: Performed By: #### L 600.88272, L600.85364 ####[address] [address]Wm# [phone] EPITH CELLS 0 EPI/HPF Normal 0-5 [facility] Comment on above: Performed By: #### L 600.39445, L600.89246 ####[address] [address]Gz# [phone] TRIPLE PHOS CRY FEW Normal [facility] Comment on above: Performed By: #### L 600.30132, L600.18313 ####[address] [address]Um# [phone] UA WBC 6 WBC/HPF High 0-5 [facility] Comment on above: Performed By: #### L 600.54997, L600.00701 ####[facility] [id number] [place] [address]Nw# [phone] Urine, bacteria in sediment 4+ /HPF Normal NONE [facility] Comment on above: Performed By: #### L 600.42666, L600.42708 ####[address] [address]Kr# [phone] Urine, erythrocytes 1 RBC/HPF Normal 0-3 [facility] Comment on above: Performed By: #### L 600.38609, L600.23776 ####[address], [place] [address]Qf# [phone] VOL OF UR SPUN 10 ML Normal [facility] Comment on above: Performed By: #### L 600.91700, L600.85763 ####[facility] [id number] [place], [place] [address]Ig# [phone] CBC (AO)on 03-11-2017 Basophils Auto #/vol (Bld) 0.00 10 3/mcL Normal 0.00-0.19 [facility] Comment on above: Performed By: #### C BCO ####[address] [address] Basophils/100 WBC Auto (Bld) 0.6 % Normal 0.0-2.5 [facility] Comment on above: Performed By: #### C BCO ####[address] [address] Eosinophils 0.20 10 3/mcL Normal 0.00-0.40 [facility] Comment on above: Performed By: #### C BCO ####R[address]egorz [address] [address] Eosinophils/100 leukocytes 2.7 % Normal 0.0-7.0 [facility] Comment on above: Performed By: #### C BCO ####[address] [address] Erythrocyte distribution width Auto Ratio (RBC) 14.9 % High 11.5-14.5 [facility] Comment on above: Performed By: #### C BCO ####[address] [address] Erythrocytes (RBC) 5.10 10 6/mcL Normal 4.04-6.13 [facility] Comment on above: Performed By: #### C BCO ####[address] [address] Hematocrit (HCT) 44.2 % Normal 42.0-52.0 [facility] Comment on above: Performed By: #### C BCO ####[address] [address] Hemoglobin mass conc (Bld) 14.4 G/dL Normal 14.0-18.0 [facility] Comment on above: Performed By: #### C BCO ####[address] [address] Lymphocytes 0.80 10 3/mcL Normal 0.77-3.85 [facility] Comment on above: Performed By: #### C BCO ####[address] [address] Lymphocytes/100 leukocytes 14.6 % Normal 10.0-50.0 [facility] Comment on above: Performed By: #### C BCO ####[address] [address] MCH 28.2 pg Normal 27.0-31.2 [facility] Comment on above: Performed By: #### C BCO ####[address] [address] MCHC mass conc (RBC) 32.6 G/dL Normal 31.8-35.4 [facility] Comment on above: Performed By: #### C BCO ####[address] [address] MCV 86.5 fL Normal 80.0-94.0 [facility] Comment on above: Performed By: #### C BCO ####[address] [address] Monocytes 0.60 10 3/mcL Normal 0.15-1.00 [facility] Comment on above: Performed By: #### C BCO ####[address] [address] Monocytes/100 leukocytes 9.9 % Normal 1.7-13.0 [facility] Comment on above: Performed By: #### C BCO ####[address] [address] Neutrophils 4.20 10 3/mcL Normal 2.85-6.16 [facility] Comment on above: Performed By: #### C BCO ####[address] [address] Neutrophils/100 WBC Auto (Bld) 72.2 % Normal 37.0-80.0 [facility] Comment on above: Performed By: #### C BCO ####[address] [address] Platelet mean volume (PMV) 8.4 fL Normal 7.4-10.4 [facility] Comment on above: Performed By: #### C BCO ####[address] [address] Platelets 155 10 3/mcL Normal 130-400 [facility] Comment on above: Performed By: #### C BCO ####[address] [address] WBC (Leukocytes) 5.80 10 3/mcL Normal 4.60-10.80 [facility] Comment on above: Performed By: #### C BCO ####[address] [address] Comp. Metabolic Panelon 07-0 Alanine aminotransferase (ALT) 30 U/L Normal 10-35 [facility] Comment on above: Performed By: #### C MP ####[address] [address] Aspartate aminotransferase (AST) 30 U/L Normal 10-40 [facility] Comment on above: Performed By: #### C MP ####[address] [address] Glucose mass conc 132 mg/dL High 83-110 [facility] Comment on above: Performed By: #### C MP ####Gr[address] [address] Albumin/Globulin Ratio 1.7 {ratio} Normal 1.1-2.5 [facility] Comment on above: Performed By: #### C MP ####[address] [address] Alk. Phosphatase 58 IU/L Normal 40-135 [facility] Comment on above: Performed By: #### C MP ####[place] [id number] Bilirubin (direct) 0.3 mg/dL Normal 0.2-1.0 Replaced by [facility] Comment on above: Performed By: #### C MP ####[place] [id number] Globulin 2.7 G/dL Normal [facility] Comment on above: Performed By: #### C MP ####[place] [id number] T. Protein 7.2 G/dL Normal 6.0-8.3 [facility] Comment on above: Performed By: #### C MP ####[place] [id number] BUN/Creatinine Ratio 22 mg/mg Normal 7-27 [facility] Comment on above: Performed By: #### C MP ####[place] [id number] Creatinine 1.0 mg/dL Normal 0.6-1.2 [facility] Comment on above: Performed By: #### C MP ####[place] [id number] Albumin 4.5 G/dL Normal 3.4-4.8 [facility] Comment on above: Performed By: #### C MP ####[place] [id number] Calcium 9.6 mg/dL Normal 8.4-10.2 [facility] Comment on above: Performed By: #### C MP ####[place] [id number] CO2 30 mmol/L Normal 23-31 [facility] Comment on above: Performed By: #### C MP ####[place] [id number] Electrolyte Balance 8.0 mEq/L Normal [facility] Comment on above: Performed By: #### C MP ####[address] [address] Urea nitrogen 22 mg/dL High 7-18 [facility] Comment on above: Performed By: #### C MP ####[address] [address] Chloride 103 mmol/L Normal 98-107 [facility] Comment on above: Performed By: #### C MP ####[address] [address] Potassium molar conc 4.6 mmol/L Normal 3.5-5.1 [facility] Comment on above: Performed By: #### C MP ####[address] [address] Sodium 141 mmol/L Normal 136-146 [facility] Comment on above: Performed By: #### C MP ####[address] [address] Glomerular Filtration Rate E stimateon 03-11-2017 eGFR (non-black) mL/min/{1.73_m2} Normal [facility] Comment on above: Performed By: #### G FR ####[address] [id number] Result Comment: Pato hannah mean GFR = 75 mL/min/1.73 sq.m. for ages 70+ years. Chronic Kidney Disease: Less than 60 mL/min/1.73 square metersEnd Stage Renal Disease: Less than 15 mL/min/1.73 square meters Vital Signs Date Time Vital Sign Value Performing Clinician Facility 05-16-2025 09:40-0400 Body height 177 cm Ha Luque MD Work Phone: [facility] 05-16-2025 09:40-0400 Body mass index (BMI) [Ratio] 28.67 kg/m2 Ha Luque MD Work Phone: [facility] 05-16-2025 09:40-0400 Body temperature 68.79 [degF] Ha uLque MD Work Phone: [facility] 05-16-2025 09:40-0400 Body weight 89.81 kg Ha Luque MD Work Phone: [facility] 05-16-2025 09:40-0400 Diastolic blood pressure 72 mm[Hg] Ha Luque MD Work Phone: [facility] 05-16-2025 09:40-0400 Heart rate 55 /min Ha Luque MD Work Phone: [facility] 05-16-2025 09:40-0400 SaO2% (BldA) [Mass fraction] 98 % Ha Luque MD Work Phone: [facility] 05-16-2025 09:40-0400 Systolic blood pressure 134 mm[Hg] Ha Luque MD Work Phone: [facility] 04-17-2025 13:22-0400 Diastolic blood pressure 69 mm[Hg] Ha Luque MD Work Phone: [facility] 04-17-2025 13:22-0400 Systolic blood pressure 143 mm[Hg] Ha Luque MD Work Phone: [facility] 04-17-2025 12:51-0400 Body mass index (BMI) [Ratio] 27.98 kg/m2 Ha Luque MD Work Phone: [facility] 04-17-2025 12:51-0400 Body temperature 97.11 [degF] Ha Luque MD Work Phone: [facility] 04-17-2025 12:51-0400 Body weight 88.45 kg Ha Luque MD Work Phone: [facility] 04-17-2025 12:51-0400 Heart rate 63 /min Ha Luque MD Work Phone: [facility] 04-17-2025 12:51-0400 SaO2% (BldA) [Mass fraction] 98 % Ha Luque MD Work Phone: [facility] 01-04-2025 09:57-0400 Body mass index (BMI) [Ratio] 29.41 kg/m2 Ha Luque MD Work Phone: [facility] 01-04-2025 09:57-0400 Body temperature 97 [degF] Ha Luque MD Work Phone: [facility] 01-04-2025 09:57-0400 Body weight 92.99 kg Ha Luque MD Work Phone: [facility] 01-04-2025 09:57-0400 Diastolic blood pressure 70 mm[Hg] Ha Luque MD Work Phone: [facility] 01-04-2025 09:57-0400 Heart rate 56 /min Ha Luque MD Work Phone: [facility] 01-04-2025 09:57-0400 SaO2% (BldA) [Mass fraction] 97 % Ha Luque MD Work Phone: [facility] 01-04-2025 09:57-0400 Systolic blood pressure 156 mm[Hg] Ha Luque MD Work Phone: [facility] 12-14-2024 12:56-0400 Body height 177.8 cm Ha Luque MD Work Phone: [facility] 12-14-2024 12:56-0400 Body mass index (BMI) [Ratio] 30.13 kg/m2 Ha Luque MD Work Phone: [facility] 12-14-2024 12:56-0400 Body temperature 97.2 [degF] Ha Luque MD Work Phone: [facility] 12-14-2024 12:56-0400 Body weight 95.25 kg Ha Luque MD Work Phone: [facility] 12-14-2024 12:56-0400 Diastolic blood pressure 64 mm[Hg] Ha Luque MD Work Phone: [facility] 12-14-2024 12:56-0400 Heart rate 66 /min Ha Luque MD Work Phone: [facility] 12-14-2024 12:56-0400 SaO2% (BldA) [Mass fraction] 96 % Ha Luque MD Work Phone: [facility] 12-14-2024 12:56-0400 Systolic blood pressure 167 mm[Hg] Ha Luque MD Work Phone: [facility] 11-29-2024 10:59-0400 Body mass index (BMI) [Ratio] 28.45 kg/m2 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 APRN.TEMPLE [employer]ER Work Phone: [facility] 11-29-2024 10:59-0400 Body temperature 98.1 [degF] 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 APRN.[employer]ER Work Phone: [facility] 11-29-2024 10:59-0400 Body weight 92.53 kg 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 APRN.[employer]ER Work Phone: [facility] 11-29-2024 10:59-0400 Diastolic blood pressure 64 mm[Hg] 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 APRN.TEMPLE [employer]ER Work Phone: [facility] 11-29-2024 10:59-0400 Heart rate 94 /min 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 APRN.[employer]ER Work Phone: [facility] 11-29-2024 10:59-0400 Respiratory rate 18 /min 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 APRN.TEM[employer]ER Work Phone: [facility] 11-29-2024 10:59-0400 SaO2% (BldA) [Mass fraction] 98 % 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 APRN.TEMPLE [employer]ER Work Phone: [facility] 11-29-2024 10:59-0400 Systolic blood pressure 132 mm[Hg] 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 APRN.TEMPLE MARKER Work Phone: [facility] 09-09-2024 12:24-0500 Body temperature 98.24 [degF] DR JAKI FLEMING DO [address] [place] [address] 09-09-2024 12:24-0500 Diastolic Blood Pressure Non-Invasive 77 mm[Hg] DR JAKI FLEMING DO [address] [place] [address] 09-09-2024 12:24-0500 Heart rate 94 /min DR JAKI FLEMING DO [address] [place] [address] 09-09-2024 12:24-0500 Respiratory rate 18 /min DR JAKI FLEMING DO [address] [place] [address] 09-09-2024 12:24-0500 Systolic Blood Pressure Non-Invasive 130 mm[Hg] DR JAKI FLEMING DO [address] [place] [address] 09-09-2024 07:15-0500 Body temperature 98.24 [degF] DR JAKI FLEMING DO [address] [place] [address] 09-09-2024 07:15-0500 Diastolic Blood Pressure Non-Invasive 78 mm[Hg] DR JAKI FLEMING DO [address] [place] [address] 09-09-2024 07:15-0500 Heart rate 90 /min DR JAKI FLEMING DO [address] [place] [address] 09-09-2024 07:15-0500 Respiratory rate 17 /min DR JAKI FLEMING DO [address] [place] [address] 09-09-2024 07:15-0500 Systolic Blood Pressure Non-Invasive 121 mm[Hg] DR JAKI FLEMING DO [address] [place] [address] 09-09-2024 03:10-0500 Body temperature 97.88 [degF] DR JAKI FLEMING DO [address] [place] [address] 09-09-2024 03:10-0500 Diastolic Blood Pressure Non-Invasive 69 mm[Hg] DR JAKI FLEMING DO [address] [place] [address] 09-09-2024 03:10-0500 Heart rate 68 /min DR JAKI FLEMING DO [address] [place] [id number] 09-09-2024 03:10-0500 Reason For Taking VItal Signs DR JAKI FLEMING DO [address] [place] [address] 09-09-2024 03:10-0500 Respiratory rate 16 /min DR JAKI FLEMING DO [address] [place] [address] 09-09-2024 03:10-0500 Systolic Blood Pressure Non-Invasive 96 mm[Hg] DR JAKI FLEMING DO [address] [place] [address] 09-08-2024 23:16-0500 Reason For Taking VItal Signs DR JAKI FLEMING DO [address] [place] [address] 09-08-2024 19:55-0500 Blood Pressure Cuff Size DR JAKI FLEMING DO [address] [place] [address] 09-08-2024 19:55-[address] JAKI FLEMING DO [address] [place] [address] 09-08-2024 19:55-[address] JAKI FLEMING DO [address] [place] [address] 09-08-2024 19:52-0500 Mean blood pressure 89 mm[Hg] DR JAKI FLEMING DO [address] [place] [address] 09-08-2024 19:52-0500 Reason For Taking VItal Signs DR JAKI FLEMING DO [address] [place] [address] 09-08-2024 14:22-0500 Blood Pressure Cuff Size DR JAKI FLEMING DO [address] [place] [address] 09-08-2024 14:22-[address] JAKI FLEMING DO [address] [place] [address] 09-08-2024 14:22-[address] JAKI FLEMING DO [address] [place] [address] 09-08-2024 10:59-0500 Heart rate 80 /min DR JAKI FLEMING DO [address] [place] [address] 09-08-2024 07:45-0500 Blood Pressure Cuff Size DR JAKI FLEMING DO [address] [place] [address] 09-08-2024 07:45-[address] JAKI FLEMING DO [address] [place] [address] 09-08-2024 07:45-[address] JAKI FLEMING DO [address] [place] [address] 09-08-2024 07:45-0500 Heart rate 93 /min DR JAKI FLEMING DO [address] [place] [address] 09-08-2024 03:54-0500 Heart rate 64 /min DR JAKI FLEMING DO [address] [place] [address] 09-08-2024 03:54-0500 Mean blood pressure 59 mm[Hg] DR JAKI FLEMING DO [address] [place] [address] 09-08-2024 00:20-0500 Heart rate 75 /min DR JAKI FLEMING DO [address] [place] [address] 09-07-2024 20:22-0500 Body height 180.[address] JAKI FLEMING DO [address] [place] [address] 09-07-2024 20:22-0500 Body weight 119.[address] JAKI FLEMING DO [address] [place] [address] 09-07-2024 20:22-0500 Body weight 36.79 kg/m2 DR JAKI FLEMING DO [address] [place] [address] 09-07-2024 20:19-0500 Body height 180.[address] JAKI FLEMING DO [address] [place] [address] 09-07-2024 20:19-0500 Body weight 119.[address] JAKI FLEMING DO [address] [place] [address] 09-07-2024 20:19-0500 Body weight 36.79 kg/m2 DR JAKI FLEMING DO [address] [place] [address] 09-06-2024 23:43-0500 Body weight 119.[address] JAKI FLEMING DO [facility] 05-27-2024 10:50-0400 Diastolic Blood Pressure Non-Invasive 73 mm[Hg] DR MAJO HOLDER MD [facility] 05-27-2024 10:50-0400 Heart rate 70 /min DR MAJO HOLDER MD [facility] 05-27-2024 10:50-0400 Respiratory rate 18 /min DR MAJO HOLDER MD [facility] 05-27-2024 10:50-0400 Systolic Blood Pressure Non-Invasive 154 mm[Hg] DR MAJO HOLDER MD [facility] 05-27-2024 09:16-0400 Body temperature 97.88 [degF] DR MAJO HOLDER MD [facility] 05-27-2024 09:16-0400 Body weight 97.[address] MAJO HOLDER MD [facility] 05-27-2024 09:16-0400 Diastolic Blood Pressure Non-Invasive 70 mm[Hg] DR MAJO HOLDER MD [facility] 05-27-2024 09:16-0400 Heart rate 63 /min DR AMJO HOLDER MD [facility] 05-27-2024 09:16-0400 Respiratory rate 18 /min DR MAJO HOLDER MD [facility] 05-27-2024 09:16-0400 Systolic Blood Pressure Non-Invasive 170 mm[Hg] DR MAJO HOLDER MD [facility] 05-04-2024 12:19-0400 Diastolic Blood Pressure Non-Invasive 89 mm[Hg] YG MUHAMMAD MD [facility] 05-04-2024 12:19-0400 Heart rate 74 /min YG MUHAMMAD MD [facility] 05-04-2024 12:19-0400 Respiratory rate 16 /min YG MUHAMMAD MD [facility] 05-04-2024 12:19-0400 Systolic Blood Pressure Non-Invasive 157 mm[Hg] YG MUHAMMAD MD [facility] 05-04-2024 06:44-0400 Body temperature 96.8 [degF] YG MUHAMMAD MD [facility] 05-04-2024 06:44-0400 Body weight 95 kg YG MUHAMMAD MD [facility] 05-04-2024 06:44-0400 Diastolic Blood Pressure Non-Invasive 91 mm[Hg] YG MUHAMMAD MD [facility] 05-04-2024 06:44-0400 Heart rate 76 /min YG MUHAMMAD MD [facility] 05-04-2024 06:44-0400 Respiratory rate 16 /min YG MUHAMMAD MD [facility] 05-04-2024 06:44-0400 Systolic Blood Pressure Non-Invasive 168 mm[Hg] YG MUHAMMAD MD [facility] 02-11-2024 14:17-0400 Body temperature 97 [degF] Barrett Huff PA-C Work Phone: [facility] 02-11-2024 14:17-0400 Diastolic blood pressure 61 mm[Hg] Barrett Huff PA-C Work Phone: [facility] 02-11-2024 14:17-0400 Heart rate 67 /min Barrett Huff PA-C Work Phone: [facility] 02-11-2024 14:17-0400 Respiratory rate 16 /min Barrett Huff PA-C Work Phone: [facility] 02-11-2024 14:17-0400 SaO2% (BldA) [Mass fraction] 96 % Barrett Huff PA-C Work Phone: [facility] 02-11-2024 14:17-0400 Systolic blood pressure 119 mm[Hg] Barrett Huff PA-C Work Phone: [facility] 11-03-2023 16:25-0500 Body temperature 97.16 [degF] EZEKIEL QUIROS MD [facility] 11-03-2023 16:25-0500 Diastolic Blood Pressure Non-Invasive 63 mm[Hg] EZEKIEL QUIROS MD [facility] 11-03-2023 16:25-0500 Heart rate 56 /min EZEKIEL QUIROS MD [facility] 11-03-2023 16:25-0500 Respiratory rate 16 /min EZEKIEL QUIROS MD [facility] 11-03-2023 16:25-0500 Systolic Blood Pressure Non-Invasive 150 mm[Hg] EZEKIEL QUIROS MD [facility] 11-03-2023 15:50-0500 Body temperature 96.8 [degF] EZEKIEL QUIROS MD [facility] 11-03-2023 15:50-0500 Diastolic Blood Pressure Non-Invasive 65 mm[Hg] EZEKIEL QUIROS MD [facility] 11-03-2023 15:50-0500 Heart rate 56 /min EZEKIEL QUIROS MD [facility] 11-03-2023 15:50-0500 Mean blood pressure 88 mm[Hg] EZEKIEL QUIROS MD [facility] 11-03-2023 15:50-0500 Respiratory rate 18 /min EZEKIEL QUIROS MD [facility] 11-03-2023 15:50-0500 Systolic Blood Pressure Non-Invasive 142 mm[Hg] EZEKIEL QUIROS MD [facility] 11-03-2023 15:48-0500 Body temperature 96.8 [degF] EZEKIEL QUIROS MD [facility] 11-03-2023 15:48-0500 Diastolic Blood Pressure Non-Invasive 63 mm[Hg] EZEKIEL QUIROS MD [facility] 11-03-2023 15:48-0500 Heart rate 62 /min EZEKIEL QUIROS MD [facility] 11-03-2023 15:48-0500 Mean blood pressure 88 mm[Hg] EZEKIEL QUIROS MD [facility] 11-03-2023 15:48-0500 Respiratory rate 18 /min EZEKIEL QUIROS MD [facility] 11-03-2023 15:48-0500 Systolic Blood Pressure Non-Invasive 145 mm[Hg] EZEKIEL QUIROS MD [facility] 11-03-2023 15:35-0500 Heart rate 64 /min EZEKIEL QUIROS MD [facility] 11-03-2023 15:35-0500 Mean blood pressure 100 mm[Hg] EZEKIEL QUIROS MD [facility] 11-03-2023 14:55-0500 Respiratory Rate - Anes 17 br/min EZEKIEL QUIROS MD [facility] 11-03-2023 14:50-0500 Respiratory Rate - Anes 20 br/min EZEKIEL QUIROS MD [facility] 11-03-2023 14:45-0500 Body temperature 97.3 [degF] EZEKIEL QUIROS MD [facility] 11-03-2023 14:45-0500 Respiratory Rate - Anes 15 br/min EZEKIEL QUIROS MD [facility] 11-03-2023 14:40-0500 Body temperature 97.38 [degF] EZEKIEL QUIROS MD [facility] 11-03-2023 14:35-0500 Body temperature 97.47 [degF] EZEKIEL QUIROS MD [facility] 11-03-2023 12:06-0500 Body height 177.8 cm EZEKIEL QUIROS MD [facility] 11-03-2023 12:06-0500 Body weight 91.2 kg EZEKIEL QUIROS MD [facility] 11-03-2023 12:06-0500 Heart rate 65 /min EZEKIEL QUIROS MD [facility] 10-18-2023 13:12-0500 Body height [address] CLOVER KATZ MD [facility] 10-18-2023 07:16-0500 Blood Pressure Location EZEKIEL QUIROS MD [facility] 10-18-2023 07:16-0500 Blood Pressure Method EZEKIEL QUIROS MD [facility] 10-18-2023 07:16-0500 Body height 178 cm EZEKIEL QUIROS MD [facility] 10-18-2023 07:16-0500 Body temperature 97.7 [degF] EZEKIEL QUIROS MD [facility] 10-18-2023 07:16-0500 Body weight 95.3 kg EZEKIEL QUIROS MD [facility] 10-18-2023 07:16-0500 Diastolic Blood Pressure Non-Invasive 75 mm[Hg] EZEKIEL QUIROS MD [facility] 10-18-2023 07:16-0500 Heart rate 58 /min EZEKIEL QUIROS MD [facility] 10-18-2023 07:16-0500 Systolic Blood Pressure Non-Invasive 149 mm[Hg] EZEKIEL QUIROS MD [facility] 09-23-2023 14:40-0500 Blood Pressure Cuff Size DR TAYLOR RICARDO MD [facility] 09-23-2023 14:40-[address] TAYLOR RICARDO MD [facility] 09-23-2023 14:40-[address] TAYLOR Lubin MD [address] [place] [address] 09-23-2023 14:40-0500 Body temperature 97.88 [degF] DR TAYLOR RICARDO MD [address] [place] [address] 09-23-2023 14:40-0500 Diastolic Blood Pressure Non-Invasive 70 mm[Hg] DR TAYLOR RICARDO MD [address] [place] [address] 09-23-2023 14:40-0500 Heart rate 66 /min DR TAYLOR RICARDO MD [address] [place] [address] 09-23-2023 14:40-0500 Reason For Taking VItal Signs DR TAYLOR RICARDO MD [address] 09-23-2023 14:40-0500 Respiratory rate 17 /min DR TAYLOR RICARDO MD [address] [place] [address] 09-23-2023 14:40-0500 Systolic Blood Pressure Non-Invasive 142 mm[Hg] DR TAYLOR RICARDO MD [address] [place] [address] 09-23-2023 06:54-[address] TAYLOR RICARDO MD [address] [place] [address] 09-23-2023 06:54-[address] TAYLOR Lubin MD [address] [place] [address] 09-23-2023 06:54-0500 Body temperature 97.7 [degF] DR TAYLOR RICARDO MD [address] [place] [address] 09-23-2023 06:54-0500 Diastolic Blood Pressure Non-Invasive 69 mm[Hg] DR TAYLOR RICARDO MD [address] [place] [address] 09-23-2023 06:54-0500 Heart rate 78 /min DR TAYLOR RICARDO MD [address] [place] [address] 09-23-2023 06:54-0500 Reason For Taking VItal Signs DR TAYLOR RICARDO MD [address] [place] [address] 09-23-2023 06:54-0500 Respiratory rate 18 /min DR TAYLOR RICARDO MD [address] [place] [address] 09-23-2023 06:54-0500 Systolic Blood Pressure Non-Invasive 144 mm[Hg] DR TAYLOR RICARDO MD [address] [place] [address] 09-22-2023 23:00-0500 Body temperature 98.06 [degF] DR TAYLOR RICARDO MD [address] 09-22-2023 23:00-0500 Diastolic Blood Pressure Non-Invasive 66 mm[Hg] DR TAYLOR RICARDO MD [address] 09-22-2023 23:00-0500 Heart rate 63 /min DR TAYLOR RICARDO MD [address] [place] [address] 09-22-2023 23:00-0500 Respiratory rate 16 /min DR TAYLOR RICARDO MD [address] 09-22-2023 23:00-0500 Systolic Blood Pressure Non-Invasive 124 mm[Hg] DR TAYLOR RICARDO MD [address] 09-22-2023 15:35-0500 Reason For Taking VItal Signs DR TAYLOR RICARDO MD [address] [place] [address] 09-22-2023 11:17-0500 Signs/Symptoms Transfusion Reaction DR TAYLOR RICARDO MD [address] [place] [address] 09-22-2023 10:17-0500 Diastolic blood pressure 51 mm[Hg] DR TAYLOR RICARDO MD [address] [place] [address] 09-22-2023 10:17-0500 Signs/Symptoms Transfusion Reaction DR TAYLOR RICARDO MD [address] [place] [address] 09-22-2023 10:17-0500 Systolic blood pressure 92 mm[Hg] DR TAYLOR RICARDO MD [address] [place] [address] 09-22-2023 10:15-0500 Signs/Symptoms Transfusion Reaction No DR TAYLOR RICARDO MD [address] [place] [address] 09-22-2023 08:20-0500 Diastolic blood pressure 58 mm[Hg] DR TAYOLR RICARDO MD [address] [place] [address] 09-22-2023 08:20-0500 Systolic blood pressure 119 mm[Hg] DR TAYLOR RICARDO MD [address] [place] [address] 09-21-2023 19:37-[address] TAYLOR RICARDO MD [address] [place] [address] 09-21-2023 19:37-[address] TAYLOR Lubin MD [address] [place] [address] 09-21-2023 11:41-0500 Heart rate 77 /min DR TAYLOR RICARDO MD [address] [place] [address] 09-21-2023 11:26-0500 Heart rate 69 /min DR TAYLOR RICARDO MD [address] 09-21-2023 11:26-0500 Mean blood pressure 70 mm[Hg] DR TAYLOR RICARDO MD [address] [place] [address] 09-21-2023 11:11-0500 Heart rate 83 /min DR TAYLOR RICARDO MD [address] [place] [address] 09-21-2023 11:11-0500 Mean blood pressure 77 mm[Hg] DR TAYLOR RICARDO MD [address] [place] [address] 09-21-2023 10:56-0500 Body temperature 97.34 [degF] DR TAYLOR RICARDO MD [address] [place] [address] 09-21-2023 10:56-0500 Mean blood pressure 69 mm[Hg] DR TAYLOR RICARDO MD [address] [place] [address] 09-21-2023 10:50-0500 Respiratory Rate - Anes 11 br/min DR TAYLOR RICARDO MD [address] [place] [address] 09-21-2023 10:45-0500 Body temperature 95.38 [degF] DR TAYLOR RICARDO MD [address] [place] [address] 09-21-2023 10:45-0500 Respiratory Rate - Anes 24 br/min DR TAYLOR RICARDO MD [address] [place] [address] 09-21-2023 10:40-0500 Body temperature 99.1 [degF] DR TAYLOR RICARDO MD [address] 09-21-2023 10:40-0500 Respiratory Rate - Anes 23 br/min DR TAYLOR RICARDO MD [address] [place] [address] 09-21-2023 10:35-0500 Body temperature 99.21 [degF] DR TAYLOR RICARDO MD [address] [place] [address] 09-20-2023 23:28-0500 Body height 180.[address] TAYLOR RICARDO MD [address] [place] [address] 09-20-2023 23:28-0500 Body weight 90.[address] TAYLOR RICARDO MD [address] [place] [address] 09-20-2023 23:28-0500 Body weight 27.84 kg/m2 DR TAYLOR RICARDO MD [facility] 09-20-2023 22:14-0500 Diastolic Blood Pressure Non-Invasive 69 mm[Hg] RUBY KHALIL DO [facility] 09-20-2023 22:14-0500 Heart rate 88 /min RUBY KHALIL DO [facility] 09-20-2023 22:14-0500 Respiratory rate 20 /min RUBY FROMMELT DO [facility] 09-20-2023 22:14-0500 Systolic Blood Pressure Non-Invasive 133 mm[Hg] RUBY FROMMELT DO [facility] 09-20-2023 20:53-0500 Diastolic blood pressure 69 mm[Hg] RUBY FROMMELT DO [facility] 09-20-2023 20:53-0500 Heart rate 88 /min RUBY FROMMELT DO [facility] 09-20-2023 20:53-0500 Respiratory rate 20 /min RUBY FROMMELT DO [facility] 09-20-2023 20:53-0500 Systolic blood pressure 133 mm[Hg] RUBY FROMMELT DO [facility] 09-20-2023 17:06-0500 Body temperature 99.86 [degF] RUBY FROMMELT DO [facility] 09-20-2023 17:06-0500 Diastolic Blood Pressure Non-Invasive 79 mm[Hg] RUBY FROMMELT DO [facility] 09-20-2023 17:06-0500 Heart rate 97 /min RUBY FROMMELT DO [facility] 09-20-2023 17:06-0500 Respiratory rate 20 /min RUBY FROMMELT DO [facility] 09-20-2023 17:06-0500 Systolic Blood Pressure Non-Invasive 136 mm[Hg] RUBY FROMMELT DO [facility] 09-20-2023 15:23-0500 Body height 180 cm RUBY FROMMELT DO [facility] 09-20-2023 15:23-0500 Body temperature 99.32 [degF] RUBY FROMMELT DO [facility] 09-20-2023 15:23-0500 Body weight 95.5 kg RUBY FROMMELT DO [facility] 09-20-2023 15:23-0500 Diastolic Blood Pressure Non-Invasive 88 mm[Hg] RUBY FROMMELT DO [facility] 09-20-2023 15:23-0500 Systolic Blood Pressure Non-Invasive 182 mm[Hg] RUBY FROMMELT DO [facility] 09-20-2023 07:53-0500 Body height 180.3 cm RUBY FROMMELT DO [facility] 09-20-2023 07:53-0500 Body temperature 97.7 [degF] RUBY FROMMELT DO [facility] 09-20-2023 07:53-0500 Body weight 95.5 kg RUBY FROMMELT DO [facility] 09-20-2023 07:53-0500 Diastolic Blood Pressure Non-Invasive 68 mm[Hg] RUBY FROMMELT DO [facility] 09-20-2023 07:53-0500 Heart rate 82 /min RUBY FROMMELT DO [facility] 09-20-2023 07:53-0500 Respiratory rate 18 /min RUBY FROMMELT DO [facility] 09-20-2023 07:53-0500 Systolic Blood Pressure Non-Invasive 113 mm[Hg] RUBY FROMMELT DO [facility] 09-06-2023 15:22-0500 Diastolic Blood Pressure Non-Invasive 76 mm[Hg] LASHAE MOULTON MD [facility] 09-06-2023 15:22-0500 Heart rate 65 /min LASHAE MOULTON MD [facility] 09-06-2023 15:22-0500 Reason For Taking VItal Signs LASHAE MOULTON MD [facility] 09-06-2023 15:22-0500 Respiratory rate 18 /min LASHAE MOULTON MD [facility] 09-06-2023 15:22-0500 Systolic Blood Pressure Non-Invasive 151 mm[Hg] LASHAE MOULTON MD [facility] 09-06-2023 11:54-0500 Body weight 95.4 kg LASHAE MOULTON MD [facility] 09-06-2023 11:54-0500 Diastolic Blood Pressure Non-Invasive 68 mm[Hg] LASHAE MOULTON MD [facility] 09-06-2023 11:54-0500 Heart rate 68 /min LASHAE MOULTON MD [facility] 09-06-2023 11:54-0500 Respiratory rate 18 /min LASHAE MOULTON MD [facility] 09-06-2023 11:54-0500 Systolic Blood Pressure Non-Invasive 170 mm[Hg] LASHAE MOULTON MD [facility] 08-28-2023 14:25-0500 Diastolic Blood Pressure Non-Invasive 99 mm[Hg] DR MAJO HOLDER MD [facility] 08-28-2023 14:25-0500 Heart rate 74 /min DR MAJO HOLDER MD [facility] 08-28-2023 14:25-0500 Respiratory rate 20 /min DR MAJO HOLDER MD [facility] 08-28-2023 14:25-0500 Systolic Blood Pressure Non-Invasive 124 mm[Hg] DR MAJO HOLDER MD [facility] 06-20-2023 08:33-0400 Body weight 97.[address] CLOVER KATZ MD [facility] 05-31-2023 23:17-0400 Body temperature 97.16 [degF] LAYNE JARQUIN MD [facility] 05-31-2023 23:17-0400 Body weight 91.6 kg LAYNE JARQUIN MD [facility] 05-31-2023 23:17-0400 Diastolic Blood Pressure Non-Invasive 70 1 LAYNE JARQUIN MD [facility] 05-31-2023 23:17-0400 Heart rate 83 /min LAYNE JARQUIN MD [facility] 05-31-2023 23:17-0400 Respiratory rate 16 /min LAYNE JARQUIN MD [facility] 05-31-2023 23:17-0400 Systolic Blood Pressure Non-Invasive 138 1 LAYNE JARQUIN MD [facility] 05-03-2023 17:06-0400 Body temperature 97.88 [degF] EMMANUEL HOLDER MD [facility] 05-03-2023 17:06-0400 Body weight 95.2 kg EMMANUEL HOLDER MD [facility] 05-03-2023 17:06-0400 Diastolic Blood Pressure Non-Invasive 71 1 EMMANUEL HOLDER MD [facility] 05-03-2023 17:06-0400 Heart rate 68 /min EMMANUEL HOLDER MD [facility] 05-03-2023 17:06-0400 Respiratory rate 18 /min EMMANUEL HOLDER MD [facility] 05-03-2023 17:06-0400 Systolic Blood Pressure Non-Invasive 154 1 EMMANUEL HOLDER MD [facility] 04-29-2023 12:48-0400 Diastolic Blood Pressure Non-Invasive [address] CLOVER KATZ MD [facility] 04-29-2023 12:48-0400 Heart rate 52 /min DR CLOVER KATZ MD [facility] 04-29-2023 12:48-0400 Systolic Blood Pressure Non-Invasive [address] CLOVER KATZ MD [facility] 04-29-2023 12:38-0400 Body height 180.[address] CLOVER KATZ MD [facility] 04-29-2023 12:36-0400 Body temperature 97.7 [degF] DR CLOVER KATZ MD [facility] 04-29-2023 12:36-0400 Diastolic Blood Pressure Non-Invasive [address] CLOVER KATZ MD [facility] 04-29-2023 12:36-0400 Heart rate 74 /min DR CLOVER KATZ MD [facility] 04-29-2023 12:36-0400 Respiratory rate 18 /min DR CLOVER KATZ MD [facility] 04-29-2023 12:36-0400 Systolic Blood Pressure Non-Invasive [address] CLOVER KATZ MD [facility] 02-21-2023 00:29-0400 Diastolic Blood Pressure Non-Invasive 88 1 SILVIA HOWELL MD [facility] 02-21-2023 00:29-0400 Heart rate 63 /min SILVIA HOWELL MD [facility] 02-21-2023 00:29-0400 Respiratory rate 16 /min SILVIA HOWELL MD [facility] 02-21-2023 00:29-0400 Systolic Blood Pressure Non-Invasive 135 1 SILVIA HOWELL MD [facility] 02-20-2023 22:00-0400 Diastolic Blood Pressure Non-Invasive 86 1 SILVIA HOWELL MD [facility] 02-20-2023 22:00-0400 Heart rate 75 /min SILVIA HOWELL MD [facility] 02-20-2023 22:00-0400 Systolic Blood Pressure Non-Invasive 146 1 SILVIA HOWELL MD [facility] 02-20-2023 19:50-0400 Diastolic Blood Pressure Non-Invasive 76 1 SILVIA HOWELL MD [facility] 02-20-2023 19:50-0400 Heart rate 69 /min SILVIA HOWELL MD [facility] 02-20-2023 19:50-0400 Respiratory rate 16 /min SILVIA HOWELL MD [facility] 02-20-2023 19:50-0400 Systolic Blood Pressure Non-Invasive 141 1 SILVIA HOWELL MD [facility] 02-20-2023 17:06-0400 Blood Pressure Location SILVIA HOWELL MD [facility] 02-20-2023 17:06-0400 Body temperature 98.06 [degF] SILVIA HOWELL MD [facility] 02-20-2023 17:06-0400 Body weight 94.1 kg SILVIA HOWELL MD [facility] 02-01-2023 12:46-0400 Body temperature 97.7 [degF] EZEKIEL BURRIS MD [facility] 02-01-2023 12:46-0400 Diastolic Blood Pressure Non-Invasive 73 1 EZEKIEL BURRIS MD [facility] 02-01-2023 12:46-0400 Heart rate 60 /min EZEKIEL BURRIS MD [facility] 02-01-2023 12:46-0400 Respiratory rate 18 /min EZEKIEL BURRIS MD [facility] 02-01-2023 12:46-0400 Systolic Blood Pressure Non-Invasive 156 1 EZEKIEL BURRIS MD [facility] 02-01-2023 12:16-0400 Body temperature 97.52 [degF] EZEKIEL BURRIS MD [facility] 02-01-2023 12:16-0400 Diastolic Blood Pressure Non-Invasive 77 1 EZEKIEL BURRIS MD [facility] 02-01-2023 12:16-0400 Heart rate 68 /min EZEKIEL BURRIS MD [facility] 02-01-2023 12:16-0400 Respiratory rate 16 /min EZEKIEL BURRIS MD [facility] 02-01-2023 12:16-0400 Systolic Blood Pressure Non-Invasive 144 1 EZEKIEL BURRIS MD [facility] 02-01-2023 11:51-0400 Body temperature 97.88 [degF] EZEKIEL BURRIS MD [facility] 02-01-2023 11:51-0400 Diastolic Blood Pressure Non-Invasive 84 1 EZEKIEL BURRIS MD [facility] 02-01-2023 11:51-0400 Heart rate 57 /min EZEKIEL BURRIS MD [facility] 02-01-2023 11:51-0400 Mean blood pressure 103 mm[Hg] EZEKIEL BURRIS MD [facility] 02-01-2023 11:51-0400 Respiratory rate 20 /min EZEKIEL BURRIS MD [facility] 02-01-2023 11:51-0400 Systolic Blood Pressure Non-Invasive 152 1 EZEKIEL BURRIS MD [facility] 02-01-2023 11:35-0400 Heart rate 62 /min EZEKIEL BURRIS MD [facility] 02-01-2023 11:35-0400 Mean blood pressure 89 mm[Hg] EZEKIEL BURRIS MD [facility] 02-01-2023 11:27-0400 Body temperature 97.7 [degF] EZEKIEL BURRIS MD [facility] 02-01-2023 11:27-0400 Heart rate 60 /min EZEKIEL BURRIS MD [facility] 02-01-2023 11:27-0400 Mean blood pressure 84 mm[Hg] EZEKIEL BURRIS MD [facility] 02-01-2023 11:25-0400 Respiratory Rate - Anes 2 br/min EZEKIEL BURRIS MD [facility] 02-01-2023 11:20-0400 Body temperature 94.93 [degF] EZEKIEL BURRIS MD [facility] 02-01-2023 11:20-0400 Respiratory Rate - Anes 24 br/min EZEKIEL BURRIS MD [facility] 02-01-2023 11:15-0400 Body temperature 94.51 [degF] EZEKIEL BURRIS MD [facility] 02-01-2023 11:15-0400 Respiratory Rate - Anes 13 br/min EZEKIEL BURRIS MD [facility] 02-01-2023 11:10-0400 Body temperature 91.99 [degF] EZEKIEL BURRIS MD [facility] 02-01-2023 09:33-0400 Body height 177.8 cm EZEKIEL BURRIS MD [facility] 02-01-2023 09:33-0400 Body weight 96.2 kg EZEKIEL BURRIS MD [facility] 02-01-2023 09:33-0400 Heart rate 62 /min EZEKIEL BURRIS MD [facility] Encounters Encounter Date Encounter Type Care Provider Facility Start: 07-09-2025 End: 07-09-[address] JAKI FLEMING DO Facility:[facility] Start: 07-09-2025 End: 07-09-2025 Patient encounter procedure ISHAAN EVELIACuate HEARN DIETARY COOK-TEMPLE MARKER [facility] Start: 06-27-2025 End: 06-27-2025 ambulatory JAKI FLEMING Facility:[facility] Start: 05-16-2025 End: 05-16-2025 Patient encounter procedure Ha Luque MD Work Phone: Hematology/Oncology Start: 05-16-2025 End: 05-16-2025 ambulatory Ha Luque MD Work Phone: Hematology/Oncology Comment on above: Anemia, unspecified type (Primary Dx); Stage 3a chronic kidney disease (HCC) Anemia, unspecified type (Primary Dx) Start: 05-01-2025 End: 05-01-[address] Jaki Fleming DO Work Phone: -[facility] Start: 05-01-2025 End: 05-01-[address] Isabella Justice MD -Laboratory [facility] Start: 05-01-2025 End: 05-01-2025 ambulatory Jaki Fleming Facility:[facility] Start: 04-17-2025 End: 04-17-2025 Patient encounter [...] End: 03-06-[address] JAKI FLEMING DO Facility:[facility] Start: 03-06-2025 End: 03-06-[address] JAKI FLEMING DO [facility] Start: 02-20-2025 End: 02-20-[address] JAKI FLEMING DO Facility:[facility] Start: 02-20-2025 End: 02-20-2025 Patient encounter procedure KAYLIE MEJÍA [facility] Start: 02-05-2025 End: 02-05-[address] Jaki Fleming DO Work Phone: [facility] Work Phone: Start: 02-05-2025 End: 02-05-[address] Isabella Justice MD -Laboratory [facility] Start: 02-05-2025 End: 02-05-2025 ambulatory Jaki Fleming Facility:[facility] Start: 01-14-2025 End: 01-14-[address] JAKI FLEMING DO Facility:[facility] Start: 01-14-2025 End: 01-14-2025 Patient encounter procedure EZEKIEL BURRIS MD [facility] Start: 01-04-2025 End: 01-04-2025 Patient [...] Xr Jayy Quiroga Work Phone: [facility] Comment on above: Injury of left upper arm, initial encounter [S49.92XA] Start: 11-29-2024 End: 11-29-2024 ambulatory FABIOLA CROSS Facility:[id number] Start: 11-29-2024 End: 11-29-2024 Office outpatient visit 15 minutes 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 DIETARY COOK.TEMPLE MARKER Work Phone: [facility] Comment on above: Injury of left upper arm, initial encounter (Primary Dx); Biceps tendonitis on left Start: 11-28-2024 End: 12-03-2024 Telephone encounter Ha Luque MD Work Phone: Hematology/Oncology Comment on above: New Patient Start: 11-21-2024 End: 11-21-[address] JAKI FLEMING DO Facility:[facility] Start: 11-20-[address] JAKI FLEMING DO Faci lity:[facility] Start: 11-06-2024 End: 11-06-[address] ISABELLA JUSTICE MD Facility:[facility] Start: 11-06-2024 End: 11-06-[address] ISABELLA JUSTICE MD [facility] Start: 10-23-2024 End: 10-23-[address] JAKI FLEMING DO Facility:[facility] Start: 10-23-2024 End: 10-23-[address] JAKI FLEMING DO [facility] Start: 10-17-2024 End: 10-17-2024 ambulatory CHARMAINE LO DIETARY COOK-TEMPLE MARKER Facility:[facility] Start: 10-17-2024 End: 10-17-2024 Patient encounter procedure CHARMAINE LO STANLEY-TEMPLE MARKER [facility] Start: 10-03-2024 End: 10-03-2024 ambulatory AMISH MAYER MD Facility:[facility] Start: 10-03-2024 End: 10-03-2024 Patient encounter procedure AMISH MAYER MD [facility] Start: 09-17-2024 End: 09-17-[address] JAKI FLEMING DO Facility:[facility] Start: 09-17-2024 End: 09-17-[address] JAKI FLEMING DO [facility] Start: 09-06-2024 End: 09-09-2024 Evaluation and management of inpatient DR JAKI FLEMING DO [facility] Start: 08-21-2024 End: 08-21-2024 ambulatory Jaki Fleming Facility:[facility] Start: 08-17-2024 End: 08-17-[address] JAKI FLEMING DO Facility:[facility] Start: 08-17-2024 End: 08-17-[address] JAKI FLEMING DO [facility] Start: 08-09-2024 ambulatory Jaki Fleming Facility:[facility] Start: 08-01-2024 End: 08-01-[address] ISABELLA JUSTICE MD Facility:[facility] Start: 08-01-2024 End: 08-01-[address] ISABELLA JUSTICE MD [facility] Start: 07-24-2024 ambulatory Jaki Fleming Facility[facility] Start: 07-24-2024 End: 07-24-2024 ambulatory Jaki Fleming Facility:[facility] Start: 07-20-2024 End: 07-20-2024 ambulatory EZEKIEL BURRIS MD Facility:[facility] Start: 07-20-2024 End: 07-20-2024 Patient encounter procedure EZEKIEL BURRIS MD [facility] Start: 07-11-2024 End: 07-11-2024 Patient encounter procedure KAYLIE MEJÍA DIETARY COOK-TEMPLE MARKER [facility] Start: 05-27-2024 End: 05-27-2024 Emergency department patient visit DR MAJO HOLDER MD [facility] Start: 05-11-2024 End: 05-11-[address] ISABELLA JUSTICE MD [facility] Start: 05-04-2024 End: 05-04-2024 Emergency department patient visit YG MUHAMMAD MD [facility] Start: 04-19-2024 End: 04-23-2024 ambulatory KAYLIE MEJÍA Facility:[facility] Start: 04-19-2024 End: 04-19-2024 ambulatory KAYLIE MEJÍA Facility:[facility] Start: 04-12-[address] CLOVER KATZ MD Facilit y:A Start: 03-14-2024 End: 03-14-[address] JAKI FLEMING DO Facility:[facility] Start: 03-14-2024 End: 03-14-[address] JAKI FLEMING DO [facility] Start: 03-01-2024 End: 03-05-[address] JAKI FLEMING DO [facility] Start: 03-01-2024 End: 03-05-[address] JAKI FLEMING DO Facility:[facility] Start: 03-01-2024 End: 03-01-2024 Patient encounter procedure CHARMAINE LO DIETARY COOK-TEMPLE MARKER [facility] Start: 02-24-2024 End: 02-24-[address] JAKI FLEMING DO Facility:[facility] Start: 02-24-2024 End: 02-24-[address] JAKI FLEMING DO [facility] Start: 02-15-2024 End: 02-15-[address] JAKI FLEMING DO Facility:[facility] Start: 02-15-2024 End: 02-15-[address] JAKI FLEMING DO [facility] Start: 02-13-2024 End: 02-13-[address] ISABELLA JUSTICE MD Facility:[facility] Start: 02-13-2024 End: 02-13-[address] ISABELLA JUSTICE MD [facility] Start: 02-11-2024 End: 02-11-2024 ambulatory BARRETT HUFF Facility:[id number] Start: 02-11-2024 End: 02-11-2024 Patient encounter procedure Barrett DANIELSC Work Phone: [facility] Comment on above: Multiple open wounds (Primary Dx); Cellulitis of left buttock Start: 11-23-2023 End: 11-23-2023 ambulatory EZEKIEL BURRIS Facility:[facility] Start: 11-23-2023 End: 11-23-2023 Patient encounter procedure EZEKIEL BURRIS MD [facility] Start: 11-21-2023 End: 11-21-2023 ambulatory CHARMAINE LO DIETARY COOK-TEMPLE MARKER Facility:[facility] Start: 11-21-2023 End: 11-21-2023 Patient encounter procedure CHARMAINE LO DIETARY COOK-TEMPLE MARKER [facility] Start: 11-18-2023 ambulatory CHARMAINE LO DIETARY COOK-TEMPLE MARKER F acility:[facility] Start: 11-17-2023 End: 11-17-2023 ambulatory KYAW LUCIANO DIETARY COOK-TEMPLE MARKER Facility:[facility] Start: 11-17-2023 End: 11-17-2023 Patient encounter procedure KYAW LUCIANO DIETARY COOK-TEMPLE MARKER [facility] Start: 11-04-2023 End: 11-04-2023 Patient encounter procedure KYAW LUCIANO DIETARY COOK-TEMPLE MARKER [facility] Start: 11-03-2023 End: 11-04-2023 ambulatory KYAW LUCIANO DIETARY COOK-TEMPLE MARKER Facility:A Start: 11-03-2023 End: 11-03-2023 SAME DAY STAY EZEKIEL QUIROS MD [facility] Start: 10-24-2023 End: 10-24-2023 ambulatory FRANNIE SMITH DIETARY COOK-TEMPLE MARKER Facility:[facility] Start: 10-24-2023 End: 10-24-2023 Patient encounter procedure FRANNIE SMITH DIETARY COOK-TEMPLE MARKER [facility] Start: 10-18-2023 End: 10-18-[address] CLOVER KATZ MD Facility:[facility] Start: 10-18-2023 End: 10-18-[address] CLOVER KATZ MD [facility] Start: 10-18-2023 End: 10-18-2023 Admission to establishment EZEKIEL QUIROS MD [facility] Start: 10-18-2023 End: 10-18-2023 ambulatory EZEKIEL QUIROS MD Facility:[facility] Start: 10-11-2023 End: 10-11-[address] CLOVER KATZ MD Facility:[facility] Start: 10-11-2023 End: 10-11-[address] CLOVER KATZ MD [facility] Start: 09-28-2023 End: 10-02-2023 ambulatory KAYLIE MEJÍA Facility:[facility] Start: 09-28-2023 End: 09-28-2023 Patient encounter procedure KAYLIE MEJÍA DIETARY COOK-TEMPLE MARKER [facility] Start: 09-27-2023 End: 10-01-[address] JAKI FLEMING DO Facility:[facility] Start: 09-20-2023 End: 09-23-2023 Evaluation and management of inpatient DR TAYLOR RICARDO MD [facility] Start: 09-20-2023 End: 09-20-2023 Emergency department patient visit RUBY KHALIL DO [facility] Start: 09-20-2023 End: 09-20-2023 Emergency department patient visit RUBY KHALIL DO [facility] Start: 09-15-2023 ambulatory CHARMAINE WALLY DIETARY COOK-TEMPLE MARKER F acility:[facility] Start: 09-06-2023 End: 09-06-2023 Emergency department patient visit LASHAE MOULTON MD [facility] Start: 09-02-2023 End: 09-02-[address] ISABELLA JUSTICE MD Facility:[facility] Start: 09-02-2023 End: 09-02-[address] ISABELLA JUSTICE MD [facility] Start: 08-28-2023 End: 08-28-2023 Emergency department patient visit DR MAJO HOLDER MD [facility] Start: 08-24-2023 End: 08-24-2023 ambulatory TIFFANY MAON DIETARY COOK-TEMPLE MARKER Facility:[facility] Start: 08-24-2023 End: 08-24-2023 Patient encounter procedure TIFFANY MAON DIETARY COOK-TEMPLE MARKER [facility] Start: 07-08-2023 End: 07-08-2023 ambulatory EZEKIEL BURRIS Facility:[facility] Start: 07-08-2023 End: 07-08-2023 Patient encounter procedure EZEKIEL BURRIS MD [facility] Start: 06-28-2023 End: 06-28-[address] CLOVER KATZ MD Facility:[facility] Start: 06-20-2023 End: 06-20-[address] CLOVRE KATZ MD Facility:[facility] Start: 06-20-2023 End: 06-20-[address] CLOVER KATZ MD [facility] Start: 05-31-2023 End: 06-01-2023 Emergency department patient visit LAYNE JARQUIN MD [facility] Start: 05-23-2023 End: 05-23-[address] JAKI FLEMING DO Facility:[facility] Start: 05-23-2023 End: 05-23-[address] JAKI FLEMING DO [facility] Start: 05-03-2023 End: 05-03-2023 Emergency department patient visit EMMANUEL HOLDER MD [facility] Start: 04-29-2023 End: 04-29-[address] CLOVER KATZ MD Facility:[facility] Start: 04-29-2023 End: 04-29-[address] CLOVER KATZ MD [facility] Start: 03-24-2023 End: 03-24-2023 Patient encounter procedure EZEKIEL BURRIS MD [facility] Start: 03-16-2023 End: 03-16-2023 Patient encounter procedure ANURADHA CHRISTINE DIETARY COOK-TEMPLE MARKER [facility] Start: 03-15-2023 End: 03-16-[address] ISABELLA JUSTICE MD [facility] Start: 03-02-2023 End: 03-02-2023 Patient encounter procedure ANURADHA CHRISTINE DIETARY COOK-TEMPLE MARKER [facility] Start: 03-02-2023 End: 03-02-2023 Patient encounter procedure ANURADHA CHRISTINE DIETARY COOK-TEMPLE MARKER [facility] Start: 02-20-2023 End: 02-21-2023 Emergency department patient visit SILVIA HOWELL MD [facility] Start: 02-14-2023 End: 02-14-2023 Patient encounter procedure EZEKIEL BURRIS MD [facility] Start: 02-01-2023 End: 02-01-2023 SAME DAY STAY EZEKIEL BURRIS MD [facility] Start: 01-03-2023 End: 01-03-[address] JAKI FLEMING DO [facility] Start: 12-17-2022 End: 12-17-[address] ISABELLA JUSTICE MD [facility] Start: 08-31-2022 End: 08-31-2022 Patient encounter procedure CHARMAINE LO DIETARY COOK-TEMPLE MARKER [facility] Start: 08-16-2022 End: 08-16-[address] JAKI FLEMING DO [facility] Start: 06-02-2022 End: 06-02-[address] ISABELLA JUSTICE MD [facility] Start: 04-28-2022 End: 04-28-[address] JAKI FLEMING DO [facility] Start: 04-02-2022 End: 04-02-[address] JAKI FLEMING DO [facility] Start: 03-09-2022 End: 03-09-[address] ISABELLA JUSTICE MD [facility] Start: 02-26-2022 End: 02-26-2022 Patient encounter procedure HOLLI RITTER PA-C [facility] Start: 02-16-2022 End: 02-16-[address] MAXIMUS CORONEL MD [facility] Start: 12-08-2021 End: 12-08-[address] ISABELLA JUSTICE MD [facility] Start: 11-05-2021 End: 11-05-[address] JAKI FLEMING DO [facility] Start: 10-20-2021 End: 10-20-[address] MARIYA ALVAREZ MD [facility] Start: 09-11-2021 End: 09-11-[address] MARIYA ALVAREZ MD [facility] Start: 06-23-2021 End: 06-23-[address] ISABELLA JUSTICE MD [facility] Start: 06-03-2020 End: 06-03-2020 Patient encounter procedure External Provider [facility] Start: 06-03-2020 Results Only External Provider Exter nal-[facility] Start: 09-15-2017 Ambulatory Allen Lenin Facility :[facility] Start: 03-11-2017 End: 03-12-2017 Ambulatory PHY WO ID REFERRING Facility:[facility] Procedures Date Procedure Procedure Detail Performing Clinician Start: 11-29-2024 Radex humerus minimum 2 views Fabiola barcenas DIETARY COOK.TEMPLE MARKER Work Phone: Start: 09-21-[address] CLOVER KATZ MD Comment on above: WITH LEFT URETERAL STENT INSERTION, LEFT URETERSOSCOPY Start: 02-01-2023 MRI-US fusion guided transperineal biopsy of prostate ANURADHA CHRISTINE DIETARY COOK-TEMPLE MARKER Start: 06-03-2020 End: 06-03-2020 EXTERNAL CARDIOLOGY External [...] DTaP,Tdap,Td Vaccine (2 - Td or Tdap) [facility] Start: 06-27-2025 End: 06-27-2025 ambulatory [facility] Comment on above: CBC 1MO OV/LAB EARLY*THI S DATE PER PATIENT Start: 05-16-2025 End: 05-16-2025 ambulatory [facility] Comment on above: (SO)CBC/CMP* 3MO OV/LAB EARLY* QMO ARANESP* Start: 05-06-2025 Influenza vaccination Influenza Vacc ine (#1) [facility] Start: 04-12-2025 End: 04-12-2025 ambulatory [facility] Comment on above: (SO)CBC 3MO OV Start: 01-04-2025 End: 01-04-2025 ambulatory 01/04/2025 10:10 AM EDT Visit (SP) Office Hematology/Oncology [address] [place] [address] Ha Luque MD [address], [place] [id number] 3 WK OV* Hematology/Oncology Comment on above: 3 WK OV* Start: 12-14-2024 End: 12-14-2025 Cobalamin (Vitamin B12) [Mass/volume] in Serum or Plasma [facility] Comment on above: Expected: 12/14/2024 , Expires: 12/14/2025 Start: 12-14-2024 End: 12-14-2025 Ferritin [Mass/volume] in Serum or Plasma [facility] Comment on above: Expected: 12/14/2024 , Expires: 12/14/2025 Start: 12-14-2024 End: 03-15-2025 Folate [Mass/volume] in Serum or Plasma [facility] Comment on above: Expected: 12/14/2024 , Expires: 03/15/2025 Start: 12-14-2024 End: 03-15-2025 Haptoglobin [Mass/volume] in Serum or Plasma [facility] Comment on above: Expected: 12/14/2024 , Expires: 03/15/2025 Start: 12-14-2024 End: 12-14-2025 Iron and Iron binding capacity panel - Serum or Plasma [facility] Work Phone: Comment on above: Expected: 12/14/2024 (Approximate), Expires: 12/14/2025 Start: 12-14-2024 End: 12-14-2024 ambulatory 12/14/2024 1:00 PM EDT Visit (SP) Office Hematology/Oncology [address] [place] [id number] Ha Luque MD [address], [place] [phone] GEOSPATIAL IMAGERY INTELLIGENCE ANALYST/WORSENING ANEMIA/REF BY DR. LONNIE POLLACK* Hematology/Oncology Comment on above: GEOSPATIAL IMAGERY INTELLIGENCE ANALYST/WORSENING ANEMIA/ REF BY DR. LONNIE POLLACK* Start: 09-05-2024 Advance Directive Discussion Advance Directive Discussion [facility] Start: 09-05-2024 Medicare Advantage Annual Wellness Visit Medicare Advantage Annual Wellness Visit [facility] Start: 05-06-2024 Covid-19 Vaccine ( season) Covid-19 Vaccine ( season) [facility] Start: 09-05-2023 Advance Directive Discussion Advance Directive Discussion [facility] Start: 09-05-2023 Behavioral Health Screening Behavioral Health Screening [facility] Start: 05-06-2023 Covid-19 Vaccine ( season) Covid-19 Vaccine ( season) [facility] Start: 05-06-2020 Influenza vaccination INFLUENZA (#1) [facility] Start: 2002 ADVANCE DIRECTIVE DISCUSSION ADVANCE DIRECTIVE DISCUSSION [facility] Start: 2002 PNEUMOVAX AGE 65 AND OVER WITH 5YR LOOKBACK (#1) PNEUMOVAX AGE 65 AND OVER WITH 5YR LOOKBACK (#1) [facility] Start: 1997 RSV Vaccine (1 - 1-d ose 60+ series) RSV Vaccine (1 - 1-dose 60+ series) [facility] Start: 1987 SHINGRIX VACCINE (1 of 2) SHINGRIX VACCINE (1 of 2) [facility] Start: 1982 DIABETES SCREEN DIABETES SCREEN [facility] Start: 02-03-1956 Shingrix Vaccine (1 of 2) Shingrix Vaccine (1 of 2) [facility] Start: 02-03-1956 Urine microalbumin profile DTAP,TDAP,TD (1 - Tdap) [facility] Start: 1955 Anxiety Screening Anxiety Screening [facility] Start: 1955 Depression Screening Depression Scre ening [facility] Start: 1955 Hepatitis B surface antibody level LDL Cholesterol [facility] Start: 1947 Diabetic foot examination Diabetic Foot Exam [facility] Start: 1947 Glaucoma screening Dilated Retinal E xam [facility] Start: 1947 Hepatitis B screening Urine Albumin:Creatinine Ratio [facility] Start: 1942 Hemoglobin A1c measurement HbA1C [facility] End: 01-04-2026 CBC W Auto Differential panel - Blood COMPLETE BLOOD COUNT AND DIFFERENTIAL Lab Routine Anemia, unspecified type Every 3 months for 4 Occurrences starting 01/04/2025 until 01/04/2026 [facility] Work Phone: Comment on above: Every 3 months for 4 Occurrences starting 01/04/2025 until 01/04/2026 [facility] Immunizations Immunization Date Immunization Notes Care Provider [facility] 06-26-2024 influenza virus vacc ine, unspecified formulation Heather Awan RN Work Phone: [facility] 07-13-2023 influenza virus vacc ine, unspecified formulation [facility] 07-06-2022 SARS-CoV-2 (CV19)mRNA-1273 bivalent vac [facility] 06-12-2022 influenza virus vacc ine, unspecified formulation [facility] 07-28-2021 SARS-CoV-2 (COVID-19 ) mRNA-1273 vaccine [facility] 06-26-2021 influenza virus vacc ine, unspecified formulation [facility] 10-30-2020 SARS-CoV-2 (COVID-19 ) mRNA-1273 vaccine [facility] Comment on above: Result Comment: 2023: [id number] 10-02-2020 SARS-CoV-2 (COVID-19 ) mRNA-1273 vaccine [facility] 06-24-2020 influenza virus vacc ine, unspecified formulation DR CLOVER KATZ MD [facility] 07-20-2018 influenza virus vacc ine, unspecified formulation DR CLOVER KATZ MD [facility] 07-20-2018 tetanus toxoid, redu solomon diphtheria toxoid, and acellular pertussis vaccine, adsorbed [facility] 08-23-2017 influenza virus vacc ine, unspecified formulation DR CLOVER KATZ MD [facility] 08-23-2017 pneumococcal polysaccharide vaccine, [address] CLOVER KATZ MD [facility] 09-12-2016 pneumococcal conjuga te vaccine, [address] CLOVER KATZ MD [facility] 08-23-2015 influenza virus vacc ine, unspecified formulation DR CLOVER KATZ MD [facility] Payers Date Payer Category Payer Medicare [id number] 2024 Medicare (Managed Care) [facility] HMO [id number] 2024 Unknown [id number] 2024 Self-pay 2023 Medicare [id number] 2023 Private Health Insurance [id number] 2023 Medicare [id number]. [id number] 2023 Private Health Insurance [id number] 2023 Unknown [id number] 2015 Unknown [id number] 2013 Medicare [id number] 2013 Medicare [id number] 2010 Unknown ANTHEM BLUE CROS S AND BLUE SHIELD ANTHEM MEDIBLUE HMO [id number] 2010-Present HMO [id number]. [id number] 1937 Unknown [id number] 2.16.840.1.471318.3.579.2. 1937 Unknown [id number] 2.16.840.1.572799.3.579.2. 1937 Unknown [id number] 2.16.840.1.240434.3.579.2 1937 Unknown [id number] 2.16.840.1.357067.3.579.2 1937 Unknown [id number] 2.16.840.1.502769.3.579.2 1937 Unknown [id number] 2.16.840.1.113718.3.579.2 1937 Unknown [id number] 2.16.840.1.421837.3.579.2 1937 Unknown [id number] 2.16.840.1.776437.3.579.2 1937 Unknown [id number] 2.16.840.1.262836.3.579.2 1937 Unknown [id number] 2.16.840.1.595519.3.579.2 1937 Unknown [id number] 2.16.840.1.114573.3.579.2 1937 Unknown [id number] 2.16.840.1.516376.3.579.2 1937 Unknown [id number] 2.16.840.1.498672.3.579.2. 1937 Unknown [id number] 2.16.840.1.666554.3.579.2. 1937 Unknown [id number] 2.16.840.1.586138.3.579.2 1937 Unknown [id number] 2.16.840.1.335718.3.579.2 1937 Unknown [id number] 2.16.840.1.044931.3.579.2 1937 Unknown [id number] 2.16.840.1.302737.3.579.2 1937 Unknown [id number] 2.16.840.1.560277.3.579.2 1937 Unknown [id number] 2.16840.1.562191.3.579.2 1937 Unknown [id number] 2.16840.1.505290.3.579.2 1937 Unknown [id number] 2.16840.1.505187.3.579.2 1937 Unknown [id number] 2.16.840.1.606728.3.579.2 1937 Unknown [id number] 2.16840.1.461698.3.579.2 1937 Unknown [id number] 2.16.840.1.605153.3.579.2 1937 Unknown [id number] 2.16.840.1.765688.3.579.2 1937 Unknown [id number] 2.16.840.1.396578.3.579.2 1937 Unknown [id number] 2.16.840.1.628214.3.579.2 1937 Unknown [id number] 2.16.840.1.197478.3.579.2. 1937 Unknown [id number] 2.16.840.1.003035.3.579.2 1937 Unknown [id number] 2.16.840.1.448406.3.579.2. 1937 Unknown [id number] 2.16.840.1.954823.3.579.2 1937 Unknown [id number] 2..840.1.154899.3.579.2 1937 Unknown [id number] 2.840.1.190618.3.579.2 1937 Unknown [id number] 2.840.1.334102.3.579.2 1937 Unknown [id number] 2.840.1.729105.3.579.2 1937 Unknown [id number] 2.840.1.250933.3.579.2 1937 Unknown [id number] 2.840.1.918544.3.579.2 1937 Unknown [id number] 2.840.1.365705.3.579.2 1937 Unknown [id number] 2.16840.1.176888.3.579.2 1937 Unknown [id number] 2.16.840.1.119185.3.579.2 1937 Unknown [id number] 2.16.840.1.873629.3.579.2 1937 Unknown [id number] 2.16840.1.803655.3.579.2 1937 Unknown [id number] 2.16.840.1.149249.3.579.2. 1937 Unknown [id number] 2.16.840.1.400042.3.579.2 1937 Unknown [id number] 2.16.840.1.362000.3.579.2 1937 Unknown [id number] 2.16.840.1.891850.3.579.2 1937 Unknown [id number] 2.16.840.1.256145.3.579.2 1937 Unknown [id number] 2.840.1.691978.3.579.2 1937 Unknown [id number] 2.840.1.831590.3.579.2 1937 Unknown [id number] 2.840.1.413244.3.579.2 1937 Unknown [id number] 2.840.1.253929.3.579.2 1937 Unknown [id number] 2.840.1.639882.3.579.2 1937 Unknown [id number] 2.16840.1.916831.3.579.2 1937 Unknown [id number] 2.16840.1.486503.3.579.2 1937 Unknown [id number] 2.16840.1.775583.3.579.2 1937 Unknown [id number] 2.16.840.1.905042.3.579.2 1937 Unknown [id number] 2.16840.1.285889.3.579.2 Unknown [id number] Unknown [id number] 2.16.840.1.315932.3.579.2. 462 Unknown [id number] 2.16.840.1.365520.3.579.2. 462 Unknown [id number] 2.16.840.1.944231.3.579.2. 462 Unknown [id number] 2.16.840.1.824387.3.579.2. 462 Unknown [id number] 2.16.840.1.167939.3.579.2. 462 Unknown [id number] 2.16.840.1.280995.3.579.2. 462 Social History Date Type Detail Facility Tobacco smoking stat [facility] Unknown if ever smoked [facility] Start: 1935 Sex Assigned At Not on file [facility] Tobacco Nicotine Use: denies. [facility] Start: 03-16-2023 End: 02-11-2024 Never smoked tobacco (finding) [facility] Start: 1935 Sex Assigned At Male A [facility] Start: 02-11-2024 Tobacco use and exposure Smokeless tobacco non-user [facility] Start: 02-11-2024 Alcohol intake Lifetime non-d wojciech (finding) [facility] Start: 02-11-2024 End: 12-14-2024 History of Social function [facility] Start: 02-11-2024 End: 12-14-2024 Tobacco use panel [facility] Start: 08-06-2012 National Score (1-100), lower number is lower risk Not on file [facility] Sexual Orientation [facility] Start: 04-29-2020 Sex Male (finding) [facility] Start: 11-29-2024 End: 05-16-2025 Alcoholic beverage intake Ex-drinker (finding) [facility] Tobacco smoking stat us NHIS Unknown if ever smoked [facility] Work Phone: How often to you hav e a drink containing alcohol? Never [facility] NEGATED: Highlighted rowStart: VANESSA History of tobacco use Passive smoker [facility] Medical Equipment Procedure Code Equipment Code [...] 05/16/20 25 9:36 AM Ramon Martinez MA [facility] 09-09-2024 Functional Status Room check performed [facility] 09-09-2024 Functional Status [facility] 09-09-2024 Functional Status [facility] 09-09-2024 Functional Status [facility] 09-09-2024 Functional Status Nurse Safety Fritz alvarez q2hrs Performed 7pm-7am [facility] 09-08-2024 Functional Status Done [facility] 09-08-2024 Functional Status 100 [facility] 09-08-2024 Functional Status [facility] 09-08-2024 Functional Status [facility] 09-08-2024 Functional Status owns a station carlos bike (09/08/24) [facility] 09-08-2024 Functional Status [facility] 09-07-2024 Functional Status [facility] 09-07-2024 Functional Status 100 [facility] 09-07-2024 Functional Status Minimum assistance [facility] 09-07-2024 Functional Status [facility] 05-27-2024 Functional Status Awake [facility] 05-04-2024 Functional Status Standard Safet y ID band on, Call device within reach, Bed in low position, Wheels locked, Upper/Half-Length side-rails up, Phone within reach, personal items within reach, Visitor at bedside, Safety level maintained [facility] 11-03-2023 Functional Status Activity Blake tance Minimum assistance [facility] 11-03-2023 Functional Status Awake [facility] 11-03-2023 Functional Status Maintained [facility] 10-18-2023 Functional Status Sensory Deficits None A [facility] 10-18-2023 Functional Status Sensory Defici ts Uncorrected visual impairment [facility] 09-23-2023 Functional Status Room check performed [facility] 09-23-2023 Functional Status Done [facility] 09-23-2023 Functional Status [facility] 09-23-2023 Functional Status Nurse Robby alvarez q2hrs Performed 3am-7am [facility] 09-23-2023 Functional Status Grzegorz Ruiz [facility] 09-22-2023 Functional Status Gr[facility]egor[facility] 09-21-2023 Functional Status Gr[facility]egorz [facility] 09-21-2023 Functional Status Grzegorz [facility] 09-21-2023 Functional Status Driving, Personal ADL [facility] 09-21-2023 Functional Status Patient Identi fied Identification band, Verbal [facility] 09-20-2023 Functional Status Sensory Deficits None A [facility] 09-20-2023 Functional Status Standard Safet y ID band on, Call device within reach, Bed in low position, Wheels locked, Upper/Half-Length side-rails up, Phone within reach, personal items within reach [facility] 09-20-2023 Functional Status Up ad marly Grzegorz [facility] 09-20-2023 Functional Status Grzegorz [facility] 09-06-2023 Functional Status Independent Gr[facility]egorz [facility] 08-28-2023 [facility] Functional Status Independent Grzegorz [facility] 05-31-2023 Functional Status Repositions self [facility] 05-03-2023 Functional Status ID band on, Call device within reach, Bed in low position, Wheels locked [facility] 04-29-2023 [facility] Functional Status ID band on, Call device within reach, Bed in low position, Wheels locked, Upper/Half-Length side-rails up, Phone within reach, Visitor at bedside [facility] 02-01-2023 Functional Status Ambulating in room [facility] 02-01-2023 Functional Status Grzegorz [facility] 02-01-2023 Functional Status Maintained [facility] Mental Status Date Assessment Result Facility 09-09-2024 Mental Status Oriented x 4 [facility] 09-09-[address] [facility] 09-08-[address] [facility] 09-08-[address] [facility] 05-27-2024 Mental Status Oriented x 4 [facility] 05-04-2024 Mental Status Orientation Oriented x 4 [facility] 11-03-2023 Mental Status Orientation Oriented x 4 [facility] 11-03-2023 [facility] Mental Status Orientation Oriented x 4 [facility] 09-23-2023 Mental Status Orientation Oriented x 4 [facility] 09-22-2023 Mental [facility] 09-22-2023 [facility]23 Mental Status Orientation Asse ssment Oriented x 4 [facility] 09-21-2023 Mental Status [facility]23 [facility] Status [facility] 09-20-2023 Mental Status Orientation Oriented x 4 [facility] 09-20-2023 Mental Status Orientation Oriented x 4 [facility] 09-20-2023 Mental [facility] 09-06-[facility]23 Mental Status Orientation Oriented x 4 [facility] 09-06-2023 Mental Status [facility] 05-31-2023 Mental Status Orientation Oriented x 4 [facility] 05-03-2023 Mental Status Oriented x 4 [facility] 04-29-2023 Mental Status Oriented x 4 [facility] 02-20-2023 Mental Status Oriented x 4 [facility] 02-01-2023 Mental Status Oriented x 4 [facility] 02-01-2023 Mental Status Orientation Asse ssment Oriented x 4 [facility] Clinical Notes 02-01-2023 to 06-27-2025 Ha Luque MD - 05/16/2025 9:51 AM EDTPAltagracia hernandez LPN - 05/16/2025 9:50 AM EDT Note Date & Type Note Facility 06-27-2025 Note HNO ID: [id number] Author: HA LUQUE MD Service: ? Author [...] Had RT to prostate 2022 at [facility]. WBC 2.7-3.1 in September, hgb 9.5 [...] Benign hypertension Bilateral leg pain 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 Centrilobular emphysema (HCC) CKD (chronic kidney [...] saw palmetto/pumpkin/pyg/Zn/B6 (S (more content not included)... [facility] 05-16-2025 Note HNO ID: [id number] Author: HA LUQUE MD Service: ? Author [...] Had RT to prostate 2022 at [facility]. WBC 2.7-3.1 in September, hgb 9.5 [...] Benign hypertension Bilateral leg pain 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 Centrilobular emphysema (HCC) CKD (chronic kidney [...] PALMETTO COMPLEX,PUMPK-ZN, O (more content not included)... [facility] 05-16-2025 History of Present illness Narrative (Elements copied from my note dated April 17, 2025, have been reviewed and updated where appropriate, and all reflect current assessment and medical decision making from today's encounter, May 16, 2025) HISTORY OF PRESENT ILLNESS: Jaylen Galaviz is a 89 year old male referred for pancytopenia. Had RT to prostate 2022 at [facility]. 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 Electronically Signed: Ha Luque MD May 16, 2025 documented in this encounter [facility] 05-16-2025 Note HNO ID: [id number] Author: ALTAGRACIA TAFOYA LPN Service: ? Author Type: Licensed Nurse Type: Progress Notes Filed: 05/16/2025 09:50 Note Text: Hgb 10.2. Injection deferred. Altagracia Tafoya LPN [facility] 05-16-2025 History of Present illness Narrative Hgb 10.2. Injection deferred. Altagracia Tafoya LPN documented in this encounter [facility] 05-16-2025 Evaluation note Diagnosis Anemia, unspecified type- Primary Stage 3a chronic kidney disease (HCC) documented in this encounter [facility]08-13-2025 NoteHNO ID: [id number] Author: SHANNON EISENBERG LPN Service: ? Author Type: LICENSED NURSE Type: Progress Notes Filed: 04/17/2025 13:49 Note Text: Patient here for injection of Aranesp. Given SQ in left arm. Patient tolerated well. Shannon Eisenberg [facility]08-13-2025 History of Present illness Narrative* Shannon Eisenberg [...] Had RT to prostate 2022 at [facility]. WBC 2.7-3.1 in September, hgb 9.5 [...] Benign hypertension Bilateral leg pain 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 Centrilobular emphysema (HCC) CKD (chronic kidney [...] which included preparing to see the patient, jufp-io-gior patient care, completing clinical documentation, obtaining and/or reviewing separately obtained history, counseling and educating the patient/family/caregiver, ordering medications, shekhar ts, or procedures, independently interpreting results (not separately reported), and communicating results to the patient/family/caregiver. Electronically Signed: Ha Luque MD April 17, 2025 [facility]25 NoteHNO ID: [id number] Author: HA LUQUE MD Service: ? Author [...] Had RT to prostate 2022 at [facility]. WBC 2.7-3.1 in September, hgb 9.5 [...] Benign hypertension Bilateral leg pain 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 Centrilobular emphysema (HCC) CKD (chronic kidney [...] COMPLEX,PUMPK-ZN, ORAL) Take by (more content not included)...[facility]08-13-2025 Evaluation note* Diagnosis Anemia, unspecified type- Primary Stage 3a chronic kidney disease (HCC) documented in this encounter [facility]07-02-2025 Telephone encounter Note* Telephone Encounter - Xavi Jacques - 03/06/2025 1:38 PM EDT Patient's requested appointments have been canceled Xavi Ellison [facility]07-02-2025 Miscellaneous Notes* Telephone Encounter - Xavi Jacques - 03/06/2025 1:38 PM EDT Patient's requested appointments have been canceled Xavi Ellison * Telephone Encounter - Heather Awan RN - 03/06/2025 12:05 PM EDT PSS: Please cancel upcoming appointments on 04/12/25. Patient will reach out if he wished to reschedule. Gaye Awan RN Called and spoke with Frannie at Dr. Adela Fleming office at [facility]. She is aware of conversationwith patient and he request cancellation of f/u appt. She ask if we can fax last 2 office note to her for Dr. Fleming to review. . These will be faxed today. Gaye Awan RN * Telephone Encounter - Heather Awan RN - 03/06/2025 11:57 AM EDT Received referral from PCP for anemia and records from [facility]. 02/26/25 Lab, Hgb 9.4, stable [...] questions/concerns. Gaye Awan RN [facility] Telephone encounter Note * Telephone Encounter - Heather Awan RN - 03/06/2025 12:05 PM EDT PSS: Please cancel upcoming appointments on 04/12/25. Patient will reach out if he wished to reschedule. Gaye Awan RN Called and spoke with Frnanie at Dr. Adela Fleming office at [facility]. She is aware of conversationwith patient and he request cancellation of f/u appt. She ask if we can fax last 2 office note to her for Dr. Fleming to review. . These will be faxed today. Gaye Awan RN [facility] Work Phone: 1(572) 370-225707-02-2025 Telephone encounter Note* Telephone Encounter - Heather [...] and denies further questions/concerns. Gaye Awan RN [facility]07-02-2025 Note* Exam Date Time Procedure Performing Provider Status 03/06/25 10:[address] Head or Brain w/o Contrast Yovani RUVALCABA MD; Auth (Verified) [id number] ORIGINAL EXAMINATION: CT OF THE HEAD WITHOUT [...] 03/06/2025 10:19:54 AM Ordering Provider: JAKI FLEMING [facility]05-02-2025 NoteHNO ID: [id number] Author: HA LUQUE MD Service: ? Author [...] for pancytopenia. Had RT to prostate 2022 [facility]. 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 Had RT to prostate 2022 [facility]. WBC 2.7-3.1 in September, hgb 9.5 to [...] Benign hypertension Bilateral leg pain 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 Centrilobular emphysema (HCC) CKD (chronic kidney [...] which included preparing to see the patient, jtmy-re-pcyl patient care, completing clinical documentation, obtaining and/or reviewing separately obtained history, counseling and educating the patient/family/caregiver, ordering medications, shekhar ts, or procedures, independently interpreting results (not separately reported), and communicating results to the patient/family/caregiver. Electronically Signed: Ha Luque MD January 04, 2025 [facility]2025 NoteHNO ID: [id number] Author: HA LUQUE MD Service: ? Author Type: Physician Type: Progress Notes Filed: 12/14/2024 13:28 Note Text: HISTORY OF PRESENT ILLNESS: Jaylen Galaviz is a 89 year old male referred for pancytopenia. Had RT to prostate 2022 [facility]. 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 Had RT to prostate 2022 [facility]. WBC 2.7-3.1 in September, hgb 9.5 to [...] Benign hypertension Bilateral leg pain 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 Centrilobular emphysema (HCC) CKD (chronic kidney [...] which included preparing to see the patient, cxhy-tr-fens patient care, completing clinical documentation, obtaining and/or reviewing separately obtained history, counseling and educating the patient/family/caregiver, ordering medications, shekhar ts, or procedures, independently interpreting results (not separately reported), and communicating results to the patient/family/caregiver. Electronically Signed: Ha Luque MD December 14, 2024 1:05 PM [facility]25 Telephone encounter Note * Telephone Encounter - Paulette Mckeon - 12/03/2024 9:14 AM EDT Scheduled with patient [facility] Work Phone: 1(341) 800-573203-31-2025 Miscellaneous Notes* Telephone Encounter - Paulette Mckeon - 12/03/2024 9:14 AM EDT Scheduled with patient * Telephone Encounter - Shilpa Trivedi - 11/28/2024 11:12 AM EDT Lvm for patient to return the call. When patient calls back please schedule with either provider 1st available Folder at the assistant front office manager GEOSPATIAL IMAGERY INTELLIGENCE ANALYST/WORSENING ANEMIA/REF BY DR. LONNIE POLLACK* Shilpa Trivedi documented in this encounterR[facility]03-27-2025 Instructions* Patient Instructions* 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 APRN.CNP - 11/29/2024 12:03 PM EDT OK to resume therapy. Follow printed instructions from Up to date. Follow up with PCP if no improvement in 1-2 weeks documented in this encounterR[facility]03-27-2025 History of Present illness Narrative* Doug [...] PATIENT PRESENTS WITH AN IMPLANTABLE OR ATTACHED SLOT FLOOR PERSON: No RADIOLOGY DEPARTMENT: General X-ray: Exam(s) Completed: Upper Extremity X- Ray(s): Humerus, left PERIPHERAL IV DATA: Not applicable SIGNED BY: RT Vasu(R) November 29, 2024 12:05 PM documented in this encounterRiverside [facility] Hospital03-27-2025 NoteHNO ID: [id number] Author: DOUG HANSEN RT(Kaycee) Service: ? Author [...] PATIENT PRESENTS WITH AN IMPLANTABLE OR ATTACHED SLOT FLOOR PERSON: No RADIOLOGY DEPARTMENT: General X-ray: Exam(s) Completed: Upper Extremity X-Ray(s): Humerus, left PERIPHERAL IV DATA: Not applicable SIGNED BY: RT Vasu(R) November 29, 2024 12:05 [facility]25 NoteHNO ID: [id number] Author: FABIOLA CROSS APRN.MINDY Service: ? Author Type: Nurse Practitioner Type: Progress Notes Filed: 11/29/2024 12:58 Note Text: [facility] Subjective Jaylen Galaviz [...] agreed with plan and discharged kailey Cross APRN.TEMPLE MARKER [facility]03-27-2025 History of Present illness Narrative* 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 APRN.MINDY - 11/29/2024 11:06 AM EDT Images from the original note were not included. [facility] Galaviz is a [...] agreed with plan and discharged kailey Cross APRN.TEMPLE MARKER MDM Procedures * Chelita Lawson LPN - 11/29/2024 10:57 AM EDT Patient unable to verify medication list at this time. Chelita Lawson LPN [facility] NoteHNO ID: [id number] Author: CHELITA LAWSON LPN Service: ? Author Type: LICENSED NURSE Type: Progress Notes Filed: 11/29/2024 12:58 Note Text: Patient unable to verify medication list at this time. [facility]ita Lawson [facility] Telephone encounter Note* Telephone Encounter - Shilpa Trivedi - 11/28/2024 11:12 AM EDT Lvm for patient to return the call. When patient calls back please schedule with either provider 1st available Folder at the assistant front office manager GEOSPATIAL IMAGERY INTELLIGENCE ANALYST/WORSENING ANEMIA/REF BY DR. LONNIE POLLACK* Shilpa Trivedi [facility]02-12-[facility] Note* Exam Date Time Procedure Performing Provider Status 10/17/24 8:36 AM Transesophageal Echo cardiogram - CV MILLIE IRVIN MD; Auth (Verified) [id number] Note. MICRO - Microbiology PROCEDURE: Blood Culture [...] Locations *1: This test was performed at: [address], [address] [place], [place] [address]01-18-2025 Note. MICRO - Microbiology PROCEDURE: Blood Culture [...] Locations *1: This test was performed at: [address]01-05-2025 Hospital Discharge instructions Patient Education 09/09/2024 13:36:03 Stroke Prevention, Kcok-zh-Kxwp Stroke Prevention Some medical conditions and lifestyle [...] only healthy fats for cooking. These include: ?Barnstead oil. ?Canola oil. ?Creston oil. ?Counting how many carbohydrates you eat [...] ?Snoring a lot. ?Feeling very tired. Take rksp-wxo-zabiveu and prescription medicines only as told by your doctor. These may include aspirin or blood thinners (antiplatelets or anticoagulants). Make sure that any other medical conditions you have are managed. Where to find more information [place] Stroke Association: www.strokeassociation.org National Stroke Association: www.stroke.org [...] 02/20/2013 Document Revised: 10/18/2019 Document Reviewed: 11/23/2017 Taketake Patient Education 2020 [employer]. Follow Up Care 09/06/2024 23:42:54 With:JAKI FLEMING DO, Internal Medicine, [facility] / Address: [address] [place] [address] [place] [address] [phone] When:5 to 7 days [facility] 01-05-2025 Note Discharge Instructions Thank you for allowing [facility] to assist you with your healthcare needs. [...] with obstruction/lower urinary tract symptoms 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 CHF (congestive heart failure) Chronic venous [...] 10:30 AM EDT CHARMAINE LO APRN-MINDY [facility] [place] CVC Confirmed URO OV 01/21/2025 01:50 PM EDT EZEKIEL BURRIS MD Urology Confirmed Follow Up Appointments Follow Up with JAKI FLEMING DO, Internal Medicine, [facility] / IM When:Within 5 to 7 days Where:[address] [place] [address] [place] [address] [phone] The Following Activity and Diet Have Been [...] healthy fats for cooking. These include: ? Barnstead oil. ? Canola oil. ? Creston oil. ? Counting how many carbohydrates you [...] a lot. ? Feeling very tired. Take nriu-wyq-mxdnipy and prescription medicines only as told by your doctor. These may include aspirin or blood thinners (antiplatelets or anticoagulants). Make sure that any other medical conditions you have are managed. Where to find more information [place] Stroke Association: www.strokeassociation.org National Stroke Association: www.stroke.org [...] Document Reviewed: 11/23/2017 Elsevier Patient Education 2020 [employer]CellARide Inc. Additional Information VACCINATE! IT SAVES LIVES! Members of the community who have not yet received the COVID-19 vaccine and would like to receive it can visit one of [facility] vaccine clinics. There are many vaccine clinic locations within the [facility]. For locations and available times, please visit https://[email or web address].[place].gov/. It is important to note that some COVID mobile vaccine clinics are held outdoors and may be canceled in rainy or stormy conditions. To learn more about pediatric vaccinations (ages 5-11), we invite you to visit the [employer] webpage. https://www.Meeblers.org/pages/0181-Hbzuq-Isjeggtuzbu-Mdggghfzrv-Taxxw-Gyi stions.htmlTo learn more about the COVID-19 vaccine, we invite you to visit the CDC website for a list of frequently asked questions.https://www.cdc.gov/coronavirus/2019-ncov/vaccines/faq.html [employer] Patient Portal Access Instructions: Stay connected with your healthcare team and access your personal medical information anytime with the [employer] Patient Portal. Please follow the directions below to create your [employer] account: 1.Access the email account you provided upon registration to the hospital/physician office.2.Look for an invitation email from [facility].3.Open the email and access the invitation link: AcceptInvitation to Grz[facility]or[facility]Makeblock.4.Fill in the required ortega to create your account. To access your account, visit [email or web address]. Click the blue button labeled Access Patient [...] who you will allowto register on the [facility] for access to your information. You can also access the [facility] Portal on the [facility]where jyoti. Simply click on Patient Portal and then log into your account. If you would like to receive a full copy of your medical records, please contact the [facility] Medical Records Department by calling [phone], Tuesday through Tuesday between 8 a.m. and [...] Call your local pharmacy or go to http://NovaSparks/4O5Cd7h to find one close to you.3.Make use of household items: Use cat litter or old coffee grounds to dispose medications if other options arenot available. Mix your drugs with these household products, seal them in an airtight container andthrow it into the garbage. Call [facility]: [phone] to be sure your drugs can be [...] COPY. Signatures Patient Education Materials Stroke Prevention, Gown-zv-Miaj Medication Leaflets My discharge plan and instructions have been reviewed and explained to me and I,JAYLEN GALAVIZ understand my current condition and have read and understand these discharge instructions. I have received a written copy of the plan/instructions. If I have questions, I am aware that I should contact my doctor. 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/Principal Network Engineer Signature: Date/Time: Relationship to Patient: Witness Name/Signature: Date/Time: [id number] Discharge summary Date of Service 09/09/24 Discharge [...] JORDI MOODY MD on 09/09/2024 12:59 PM [facility]Azgdlozo41-74-1882 Note* Exam Date Time Procedure Performing Provider Status 09/09/24 11:58 AM Echocardiogram, Adult - CV ELOISA HOGAN MD; Auth (Verified) [id number] Note* Exam Date Time Procedure Performing Provider Status 09/09/24 11:42 AM VL Carotid US/Dopple r Complete - CV EZEKIEL SHERWOOD MD; Auth (Verified) [facility] HospitalAhkzcuvo57-81-1314 Note* Exam Date Time Procedure Performing Provider Status 09/08/24 5:[address] Head or Brain w/o Contrast MALCOM WILLSON DO; Auth (Verified) [id number] ORIGINAL EXAMINATION: CT OF THE HEAD WITHOUT [...] Sign Date: 09/08/2024 8:58:52 PM Ordering Provider: [facility]01-04-2025 Note* Exam Date Time Procedure Performing Provider Status 09/08/24 5:00 PM XR Foreign Body Loc Eye Bilateral TYSON AUSTIN MD; Auth (Verified) [id number] ORIGINAL EXAMINATION: XR OR FOREIGN BODY 09/08/2024 [...] 09/08/2024 6:31:11 PM Ordering Provider: JORDI MOODY [facility] [id number] History and physical note Chief Complaint The [...] with obstruction/lower urinary tract symptoms 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 CHF (congestive heart failure) Chronic venous [...] nasal(Saline Mist), 1 spray(s), Nasal, QID, PRN [place] Diabetic Association Diet(ADA Diet), 09/07/24 21:23:00 EST, [...] not contraindicated, Transporter, Full Code, 119.6 kg, [facility], [place], 09/07/24 21:23:00 EST Follow Clinical Pathway, 09/07/24 21:23:00 EST, Constant order, Ischemic Stroke Ischemic Stroke Education, 09/07/24 21:23:00 EST, qAM, Give Understanding Stroke patient education booklet to patient MRI Brain w/o Contrast, 09/07/24 21:23:00 EST, 09/07/24 21:23:00 EST, Routine, TIA, with Diffusion,Wt k.6, Metal in Eyes: Yes, Prior Valve Replacement: Yes, [facility], [place] Neurological Check, 09/07/24 21:23:00 EST, q4hr NIH [...] 16:37:00 EST, Carotid Stenosis, Regional [facility], PatientBed, [facility], [place], 09/08/24 16:37:00 EST XR Orbits Minimum 4 Views, 09/08/24 16:35:00 EST, 09/08/24 16:35:00 EST, Routine, Clearance for MRI, Portable: No, Wt k.6, [facility], [facility] Problem List/Past Medical History Ongoing Androgen deprivation therapy- Started 04/29/[address] Gianna Rivera 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 Chronic venous insufficiency Elevated PSA Family [...] JORDI MOODY MD on 09/08/2024 04:43 PM [facility] HospitalOtncxpxk04-22-7447 Evaluation + Plan noteExtracted from: Title:History and [...] with obstruction/lower urinary tract symptoms 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 CHF (congestive heart failure) Chronic venous [...] nasal(Saline Mist), 1 spray(s), Nasal, QID, PRN [place] Diabetic Association Diet(ADA Diet), 09/07/24 21:23:00 EST, [...] not contraindicated, Transporter, Full Code, 119.6 kg, [facility], [facility], 09/07/24 21:23:00 EST Follow Clinical Pathway, 09/07/24 21:23:00 EST, Constant order, Ischemic Stroke Ischemic Stroke Education, 09/07/24 21:23:00 EST, qAM, Give Understanding Stroke patient education booklet to patient MRI Brain w/o Contrast, 09/07/24 21:23:00 EST, 09/07/24 21:23:00 EST, Routine, TIA, with Diffusion, Wt k.6, Metal in Eyes: Yes, Prior Valve Replacement: Yes, [facility], [facility] Neurological Check, 09/07/24 21:23:00 EST, q4hr NIH [...] EST, Carotid Stenosis, [facility], Patient Bed, [facility], [facility], 09/08/24 16:37:00 EST XR Orbits Minimum 4 Views, 09/08/24 16:35:00 EST, 09/08/24 16:35:00 EST, Routine, Clearance for MRI, Portable: No, Wt k.6, [facility], [facility] Future Appointments Appointment Date:12/11/2024 10:30:00 AM Scheduled [...] 02/21/24 Radiology* NM Myocardial Spect Rest/Stress 09/21/23 [facility] 01-04-2025 Note* Exam Date Time Procedure Performing Provider Status 09/08/24 1:45 PM MRI Brain w/o Contrast ANGELICA WILLSON DO; Auth (Verified) [id number] ORIGINAL EXAMINATION: MRI OF THE BRAIN WITHOUT [...] 09/08/2024 9:07:08 PM Ordering Provider: JORDI MOODY [facility] [id number] Neurology Consult note Date of Service 09/08/2024 Reason for Consultation Stroke History of Present Illness 89-year-old male with past medical history of GERD, prostate cancer s/p radiation, CABG who presented after a mechanical fall. The patient has been having intermittent different symptoms for the last3 months. Initially he had an episode of double vision and was seen by auto transmission specialist. 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 Chronic venous insufficiency Elevated PSA Family [...] DENISSE SALDIVAR MD on 09/08/2024 12:22 PM [facility] HospitalEelxrpxv85-49-2816 Note* Exam Date Time Procedure Performing Provider Status 09/07/24 8:[address] Head or Brain w/o Contrast YESENIA RUVALCABA MD; Auth (Verified) [id number] ORIGINAL EXAMINATION: CT OF THE HEAD WITHOUT [...] Sign Date: 09/07/2024 8:25:53 AM [facility]* Exam Date Time Procedure Performing Provider Status 09/07/24 6:35 AM EKG (ED) - CV EMMANUEL HOLDER MD; Auth (Verified) ECG Final Report SINUS ARRHYTHMIA PROLONGED [place] INTERVAL CONSIDER ANTERIOR INFARCT Electronic Signature: EMMANUEL HOLDER MD 09/07/2024 13:47:59 [facility] [id number] Note* Exam Date Time Procedure Performing Provider Status 09/07/24 6:25 AM XR Chest 1 View EZEKIEL MENCHACA MD; Auth (Verified) [id number] ORIGINAL EXAMINATION: ONE XRAY VIEW OF THE [...] Sign Date: 09/07/2024 7:29:17 AM Ordering Provider: [facility]12-13-2024 Note* Exam Date Time Procedure Performing Provider Status 08/17/24 10:16 AM VL Venous US/Doppler One Leg (for DVT). Auth (Verified) [facility] 09-22-2024 Hospital Discharge instructions Patient Education 05/27/2024 [...] cloth between the cold sourceand the skin). [id number] [employer]. [address] [place] [address], [place] [address]. All rights reserved. This information is not intended as a substitute for professional medical care. Always follow yourhealthcare professional's instructions. Follow Up Care 05/27/2024 09:13:31 With:JAKI FLEMING DO, Internal Medicine, [facility] / IM Address: [address] [place] [address] [place] [address]- [phone] When:2-4 days [facility] 09-22-2024 Emergency department Discharge summary Discharge Instructions Thank you for allowing [facility] to assist you with your healthcare needs. [...] Medical Specialties / IM When:Within 2-4 days Where:[address] [facility] [address]- [phone] Allergies NKA Medications Please ask your primary [...] cloth between the cold sourceand the skin). [phone] [employer]. [address] [place] [address], [place] [address]. All rights reserved. This information is not intended as a substitute for professional medical care. Always follow yourhealthcare professional's instructions. Additional Information VACCINATE! IT SAVES LIVES! Members of the community who have not yet received the COVID-19 vaccine and would like to receive it can visit one of [facility] vaccine clinics. There are many vaccine clinic locations within the [facility]. For locations and available times, please visit www.gettheshot.coronavirus.[place].gov/. It is important to note that some COVID mobile vaccine clinics are held outdoors and may be canceled in rainy or stormy conditions. To learn more about pediatric vaccinations (ages 5-11), we invite you to visit the [facility] webpage. https://www.[facility].org/pages/9450-Ndfcd-Eymorarprmq-Ljsdqjlioc-Awxpx-Fjq stions.htmlTo learn more about the COVID-19 vaccine, we invite you to visit the CDC website for a list of frequently asked questions. https://www.cdc.gov/coronavirus/2019-ncov/vaccines/faq.html [facility] [employer] Patient Portal Access Instructions: Stay connected with your healthcare team and access your personal medical information anytime with the [facility] [employer] Patient Portal. If you would like a full copy of your medical records please contact the [facility] Medical Records Department Tuesday through Tuesday between 8a.m. and 4:30p.m. Please follow the directions below to access the portal: 1.Access the email account you provided upon registration to the hospital.2.Look for an invitation email from [facility].3.Open the email and access the invitation link: Accept Invitation to [facility]4.Fill in the required ortega to create [...] you will allow to register on the [facility] [employer] Patient Portal for access to your information. You can also access the [facility] [employer] Patient Portal on the Dr. Z. Simply click on Health Records under Unityware and then click on the Grzegorz logo. [...] Call your local pharmacy or go to http://Social Point.Cubie/9O1Da8e to find one close to you.3.Make use of household items: Use cat litter or old coffee grounds to dispose medications if other options arenot available. Mix your drugs with these household products, seal them in an airtight container andthrow it into the garbage. Call [facility]: [phone] to be sure your drugs can be [...] aware that I should contact my doctor. 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 These include apple sauce, [...] increase stomach acid. Don't use aspirin or dzjj-xlb-hyrxete pain and fever medicines, if possible. This includes nonsteroidal anti-inflammatory drugs (NSAIDs). Lose excess weight. Finish eating at least 2 hours before you go to bed or lie down. Raise the head of your bed. 7395-9469 [employer]. [address] [place] [address]. All rights reserved. This information is not intended as a substitute for professional medical care. Always follow yourhealthcare professional's instructions. Follow Up Care 05/04/2024 06:40:36 With:JAKI FLEMING DO, Internal Medicine, [facility] / IM Address: [address] [place] [address] [place] [address] [phone] When:2-4 days [facility] 08-30-2024 Emergency department Discharge summary Discharge Instructions Thank you for allowing [facility] to assist you with your healthcare needs. The following is importantdischarge information regarding your hospital visit. What to Do Next Instructions from Your Care Team No qualifying data available. Post Acute Orders No qualifying data available. You Need to Schedule the Following Appointments Follow Up with JAKI FLEMING DO, Internal Medicine, [facility] / IM When:Within 2-4 days Where:[address] [place] [address] [place] [address] [phone] Allergies NKA Medications Please ask your primary [...] foods again, start with small amounts of gzwv-bj-ndjpko, low- fat foods. These include apple sauce, [...] increase stomach acid. Don't use aspirin or iwxk-mxo-xefsyfb pain and fever medicines, if possible. This includes nonsteroidal anti-inflammatory drugs (NSAIDs). Lose excess weight. Finish eating at least 2 hours before you go to bed or lie down. Raise the head of your bed. 4962-4763 [employer]. [address] [place] [address]. All rights reserved. This information is not intended as a substitute for professional medical care. Always follow yourhealthcare professional's instructions. Additional Information VACCINATE! IT SAVES LIVES! Members of the community who have not yet received the COVID-19 vaccine and would like to receive it can visit one of [facility] vaccine clinics. There are many vaccine clinic locations within the [facility]. For locations and available times, please visit www.gettheshot.coronavirus.[place].gov/. It is important to note that some COVID mobile vaccine clinics are held outdoors and may be canceled in rainy or stormy conditions. To learn more about pediatric vaccinations (ages 5-11), we invite you to visit the [facility] webpage. https://www.[facility].org/pages/2148-Jyhug-Mcinugveiir-Llrogagwpq-Cngjq-Hve stions.htmlTo learn more about the COVID-19 vaccine, we invite you to visit the CDC website for a list of frequently asked questions. https://www.cdc.gov/coronavirus/2019-ncov/vaccines/faq.html [employer] Patient Portal Access Instructions: Stay connected with your healthcare team and access your personal medical information anytime with the [employer] Patient Portal. If you would like a full copy of your medical records please contact the [facility] Medical Records Department Tuesday through Tuesday between 8a.m. and 4:30p.m. Please follow the directions below to access the portal: 1.Access the email account you provided upon registration to the [facility].2.Look for an invitation email from [facility].3.Open the email and access the invitation link: Accept Invitation to GrzegorzMakeblock4.Fill in the required ortega to create your account. Sign into [email or web address] with your username and password that you [...] you will allow to register on the [employer] Patient Portal for access to your information. You can also access the [employer] Patient Portal on the Dr. Z. Simply click on Health Records under [employer] and then click on the Grzegorz logo. [...] Call your local pharmacy or go to http://bit.Cubie/6L7Sz1x to find one close to you.3.Make use of household items: Use cat litter or old coffee grounds to dispose medications if other options arenot available. Mix your drugs with these household products, seal them in an airtight container andthrow it into the garbage. Call [facility]: [phone] to be sure your drugs can be [...] aware that I should contact my doctor. Patient/Principal Network Engineer Signature: Date/Time: Relationship to Patient: Witness Name/Signature: Date/Time: [facility] HospitalTatjdjhx10-27-9655 Note ORIGINAL EXAMINATION: CT OF THE ABDOMEN [...] Date: 05/04/2024 11:13:30 AM Ordering Provider: ISADORA [facility]07-10-2024 Note* Exam Date Time Procedure Performing Provider Status 03/14/24 9:31 AM VL Duplex Scan Aorta /Iliacs Complete AOH Auth (Verified) [facility] 06-08-2024 Note* Addendum Note - Barrett Huff PA-C - 02/11/2024 4:08 PM EDTAddended by: BARRETT HUFF on: 02/11/2024 04:08 PM Modules accepted: Orders [facility]06-08-2024 Miscellaneous Notes* Addendum Note - Barrett Huff PA-C - 02/11/2024 4:08 PM EDTAddended by: BARRETT HUFF on: 02/11/2024 04:08 PM Modules accepted: Orders documented in this encounterR[facility]06-[facility]-2024 NoteHNO ID: [id number] Author: BARRETT HUFF PA-C Service: ? 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 documented in this encounterR[facility]06-08-2024 Instructions* Patient Instructions* Barrett Huff PA-C [...] you are feeling worse documented in this encounterRiverside [facility]03-18-2024 Note DATE OF PROCEDURE: 11/21/2023 PROCEDURE: [...] reported separately. RUDY LORA MD PG/NTS JOB#: [id number] DICTATION ID#: [id number] Digitally Signed by VIRGEN LORA MD on 11/21/2023 10:11 PM [facility]03-14-2024 Note ORIGINAL EXAMINATION: ONE SUPINE XRAY VIEW(S) [...] Sign Date: 11/18/2023 1:29:50 AM Ordering Provider: [facility] Grzegorz SullivanJdeebbkw18-32-2198 Hospital Discharge instructions Patient Education 11/03/2023 16:23:29 [...] on each side. Do this in a duneo-ej-xrzc direction. ?If you are male: ?Use one [...] Clean the drainage bag according to the manager risk management's instructions or as told byyour health care [...] and water are not available, use hand bodywork therapist. Always make sure there are no twists [...] 08/22/2006 Document Revised: 12/14/2019 Document Reviewed: 04/07/2018 [employer] Patient Education 2019 [employer]. Follow Up Care 09/29/2023 13:02:45 With:RUBINA CEE MD, [facility], Urology Service Address: [address] [place] [address] [address] [facility] [place] [address]- [phone] Business (1) When:2-4 days [facility] 02-29-2024 Summary of episode note Discharge Instructions Thank you for allowing [facility] to assist you with your healthcare needs. The following is importantdischarge information regarding your hospital visit. Your Care Team JAKI FLEMING DO What to do next Scheduled Follow-Up Appointments Appointment Type When With Where Contact InformationURO OV 11/04/2023 09:30 AM EST KYAW LUCIANO [facility] CV OV 11/14/2023 10:15 AM EDT WALLY CHARMAINE CRIS Doan [facility] [place] CVC INF Labwork 04/17/2024 09:45 AM EDT Infusion Therapy HEM ONC OV Follow Up w/Active Treatment 04/17/2024 10:30 AM EDT CLOVER KATZ MD Hematology and Oncology INF Chemo: Infusion Injection 15 min 04/17/2024 11:00 AM EDT Infusion Therapy Follow Up Appointments Follow Up with RUBINA CEE MD, [facility], Urology Service When Within 2-4 days Where: [address] [facility] [address] [facility] [place] [address] [phone] Business (1) Allergies NKA Medications Please ask [...] labia on each side. Do this in xwensv-cz-vxun direction. ? If you are male: ? [...] Clean the drainage bag according to the manager risk management's instructions or as told byyour health care [...] and water are not available, use hand bodywork therapist. Always make sure there are no twists [...] Document Reviewed: 04/07/2018 Elsevier Patient Education 2020 [employer]. Additional Information VACCINATE! IT SAVES LIVES! Members of the community who have not yet received the COVID-19 vaccine and would like to receive it can visit one of [facility] vaccine clinics. There are many vaccine clinic locations within the [facility]. For locations and available times, please visit [email or web address]/. It is important to note that some COVID mobile vaccine clinics are held outdoors and may be canceled in rainy or stormy conditions. To learn more about pediatric vaccinations (ages 5-11), we invite you to visit the [facility] webpage. https://www.Meeblers.org/pages/3174-Zqsbh-Izynxqwqnvk-Pclepxfbvm-Mynes-Qom stions.htmlTo learn more about the COVID-19 vaccine, we invite you to visit the CDC website for a list of frequently asked questions.https://www.cdc.gov/coronavirus/2019-ncov/vaccines/faq.html [facility] Patient Portal Access Instructions: Stay connected with your healthcare team and access your personal medical information anytime with the [facility] Patient Portal. Please follow the directions below to create your [facility] account: 1.Access the email account you provided upon registration to the hospital/physician office.2.Look for an invitation email from [facility].3.Open the email and access the invitation link: AcceptInvitation to [facility].4.Fill in the required ortega to create your account. To access your account, visit Rithmio/ImprivataOneChart. Click the blue button labeled Access Patient [...] who you will allowto register on the [facility] Patient Portal for access to your information. You can also access the [facility] One[facility] Patient Portal on the [facility] Anywhere jyoti. Simply click on Patient Portal and then log into your account. If you would like to receive a full copy of your medical records, please contact the [facility] Medical Records Department by calling [phone], Tuesday through Tuesday between 8 a.m. and [...] Call your local pharmacy or go to [email or web address] to find one close to you.3.Make use of household items: Use cat litter or old coffee grounds to dispose medications if other options arenot available. Mix your drugs with these household products, seal them in an airtight container andthrow it into the garbage. Call [facility]: [phone] to be sure your drugs can be [...] aware that I should contact my doctor. Patient/Principal Network Engineer Signature: Date/Time: Relationship to Patient: Witness Name/Signature: Date/Time: [facility]Sw[facility]i51-[facility]-3885 Anesthesiology Consult note Patient: JAYLEN GALAVIZ Age: [...] MARIYA ROMERO MD on 11/03/2023 04:15 PM [id number] Discharge summary Patient underwent successful left ureteroscopy [...] EZEKIEL QUIROS MD on 11/03/2023 03:18 PM [facility] HospitalHnwrfrmc83-73-9710 Note ORIGINAL EXAMINATION: SPOT FLUOROSCOPIC IMAGES 11/03/2023 [...] Date: 11/03/2023 4:14:05 PM Ordering Provider: EZEKIEL QUIROSWood County HospitalPuzjseju88-04-5515 Anesthesiology Consult note Patient: JAYLEN GALAVIZ Age: [...] (0) Problem list: Medical (Selected) 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 / SNOMED CT 98667027 / Confirmed Elevated PSA / SNOMED CT 9564084746 / Confirmed Family history of prostate cancer / SNOMED CT 3886918708 / Confirmed GERD - Gastro-esophageal reflux disease / SNOMED CT 3981771684 / Confirmed History of blood clots / SNOMED CT 698907180 / Confirmed History of urinary retention / SNOMED CT 606116738 / Confirmed Hernia, internal / SNOMED CT 73855827 / Confirmed Kidney stones / SNOMED CT 812660705 / Confirmed Nocturia / SNOMED CT 496833438 / Confirmed BPH associated with nocturia / SNOMED CT 0598016640 / Confirmed Ureterovesical junction obstruction / SNOMED CT 7779664841 / Confirmed Chronic venous insufficiency / SNOMED CT 52828095 / Confirmed Renal insufficiency, mild / SNOMED CT 1994149613 / Confirmed Synovial cyst / SNOMED CT 598888316 / Confirmed Non-Insulin Dependent Diabetes Mellitus / SNOMED CT 598008124 / Confirmed Left ureteral stone / SNOMED CT 42258200 / Confirmed, Active Problems (48) Age-related macular degeneration Anemia Anxiety Arthritis Atrial fibrillation Borderline low oxygen saturation level 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 History of UTI (6524688499): Resolved. Comments: - 09/2017 - [facility] Procedure history: Cystoscopy (0228166803) on 09/21/2023 at 88 Years. Comments: 10/18/2023 7:28 LAVERN Haywood WITH LEFT URETERAL STENT INSERTION, LEFT URETERSOSCOPY Transperineal biopsy of prostate using magnetic resonance imaging and ultrasonography fusion guidance (1885132564) on 02/01/2023 at 87 Years. Heart valve replacement - graft (847085156) in 2012 at 78 Years. CABG (Coronary artery bypass grafting) planned (7351598750) on 09/17/2012 at 77 Years. Carpal tunnel release (198487869). Comments: 01/19/2023 9:31 LAVERN Kennedy right Hiatus hernia repair (586765835). Colonoscopy (032820827). Dupuytren contracture (4996941650). Comments: 01/19/2023 9:32 LAVERN Kennedy right Esophagogastroduodenoscopy (425225564). Cataract extraction and IOL (implantation of intraocular lens) (3637528720). Comments: 10/18/2023 7:29 LAVERN Haywood BILATERAL Kidney stone (639171702). Social History Social & Psychosocial Habits Alcohol [...] Weight Lbs 200.6 lb Weight Method Actual [place] Body Weight 73.00 kg Type of Scale [...] records, Reviewed prior records. Assessment and Plan [place] Society of Anesthesiologists (ASA) physical status classification: [...] YOUNG WEIR MD on 11/03/2023 01:59 PM [facility] HospitalXcubwatz09-49-0666 Note ORIGINAL EXAMINATION: ONE SUPINE XRAY VIEW(S) [...] Sign Date: 11/03/2023 11:24:44 AM Ordering Provider: [facility]02-13-2024 Summary of episode note JAYLEN GALAVIZ :1935 Visit Date:10/18/2023 Your Visit Summary Your Diagnosis Prostate cancer Your Care Team Attending Physician - CLOVER KATZ MD Primary Care Physician - JAKI FLEMING DO Vitals Height 178.0 cm What to do next Scheduled Follow-Up Appointments Appointment Type When With Where Contact InformationCV OV 11/03/2023 10:00 AM EST CHARMAINE LO APRN-MINDY Doan [facility] - [facility] 11/03/2023 03:45 [...] to receive it can visit one of [facility] vaccine clinics. There are many vaccine clinic locations within the [facility]. For locations and available times, please visit www.gettheshot.coronavirus.[place].gov/. It is important to note that some COVID mobile vaccine clinics are held outdoors and may be canceled in rainy or stormy conditions. To learn more about pediatric vaccinations (ages 5-11), we invite you to visit the [facility] webpage. https://www.[facility].org/pages/6299-Gbidr-Iqxzgjkqzvj-Boswssxhar-Gntye-Ido stions.htmlTo learn more about the COVID-19 vaccine, we invite you to visit the CDC website for a list of frequently asked questions. https://www.cdc.gov/coronavirus/2019-ncov/vaccines/faq.html [facility] Patient Portal Access Instructions: Stay connected with your healthcare team and access your personal medical information anytime with the [facility]or[facility]Make[facility] Patient Portal.If you would like a full copy of your medical records, please contact the [facility] Medical Records Department, Tuesday through Tuesday between 8a.m. and 4:30p.m. Please follow the directions below to access the portal: 1.Access the email account you provided upon registration to the [facility].2.Look for an invitation email from [facility].3.Open the email and access the invitation link: Accept Invitation to [facility] [employer]4.Fill in the required ortega to create your account. Sign into [email or web address] with your username and password that you [...] you will allow to register on the [facility]or[facility]Make[facility] Patient Portal for access to your information. You can also access the [facility]Make[facility] Patient Portal on the Dr. Z. Simply click on Health Records under Unityware and then click on the Imprivata logo. HOW TO SAFELY DISPOSE OF PRESCRIPTION [...] Call your local pharmacy or go to [email or web address] to find one close to you.3.Make use of household items: Use cat litter or old coffee grounds to dispose medications if other options arenot available. Mix your drugs with these household products, seal them in an airtight container andthrow it into the garbage. Call [facility]: [phone] to be sure your drugs can be [...] aware that I should contact my doctor. 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 Take pibl-dnz-thmypzo and prescription medicines only as told by [...] 09/29/2005 Document Revised: 06/26/2019 Document Reviewed: 06/26/2019 Taketake Patient Education 2020 [employer]. Follow Up Care 09/20/2023 18:53:27 With:JAKI FLEMING DO, Internal Medicine, [facility] / IM Address: [address] [place] [address] [place] [address]- When:1-2 days Comments:THE OFFICE WILL CALL WILL AN APPOINTMENT With:EZEKIEL QUIROS MD, [facility] Address: [address] [place] [address] [address] [place] [address]- When:1-2 days Comments:Please call the office to schedule a follow-up appointment. With:HOME MEDS - Patient had home medication brought in. Please send home with patient. Address: When:1-2 days [facility] 01-19-2024 Discharge summary Date of Service 09/23/2023 Discharge Diagnosis 1. Anemia 2. Nephrolithiasis 3. Hydroureteronephrosis 4. A-fib 5. History of CAD 6. Type 2 diabetes 7. MIRYAM on CKD Additional Orders: Other status: BMP,09/23/23 5:00:00 EST, Next AM Draw (one day only), Blood, Once, Preferred Lab: [facility], Stop date 09/23/23 5:00:00 EST(Complete) Other status: CBC,09/23/23 5:00:00 EST, Next AM Draw (one day only), Blood, Once, Preferred Lab: [facility], Stop date 09/23/23 5:00:00 EST(Complete) [...] 8:37:00 EST, Routine, Blood, Once, Preferred Lab: [facility],Stop date 09/23/23 10:00:00 EST(Complete) Other status: HH,09/23/23 11:10:00 EST, URGENT (collect within 2 hrs), Blood, Once, Preferred Lab: [facility], Stop date 09/23/23 11:10:00 EST(Complete) Other status: Iron Studies,09/23/23 8:37:00 EST, Routine, Blood, Once, Preferred Lab: [facility], Stop date 09/23/23 10:00:00 EST(Complete) Ordered: cefdinir 300 mg oral capsule,Dose : 300 mg = 1 cap(s), Oral, q12h, X 5 day(s), # 10 cap(s), 0 Refill(s), 09/28/23 11:11:00 EST, Pharmacy: [facility], 180.3, cm, 09/20/23 23:28:00 EST, Height, 90.5, kg, 09/20/23 23:28:00 EST, Dosing Weight Ordered: tamsulosin 0.4 mg oral capsule,Dose : 0.4 mg = 1 cap(s), Oral, qDayPC, # 30 cap(s), 0 Refill(s), [facility], 180.3, cm, 09/20/23 23:28:00 EST, Height, kg, 09/20/23 23:28:00 EST, Dosing Weight Hospital Course 88-year-old male with a past medical history of A-fib, CAD, type 2 diabetes, hypertension, and prostate cancer. Presented to [facility] on 09/21/2023 with complaint of abdominal [...] OFFICE WILL CALL WILL AN APPOINTMENT Where: [address] [facility] [place] [address]- Follow Up with EZEKIEL QUIROS MD, [facility] When Within 1-2 days Why: Please call the office to schedule a follow-up appointment. Where: [address] [facility] [address] [facility] [place] [address]- Follow Up with HOME MEDS - Patient [...] by ERIKA HAWLEY on 09/23/2023 02:16 PM [facility] [id number] Note Discharge Instructions Thank you for allowing [facility] to assist you with your healthcare needs. The following is importantdischarge information regarding your hospital visit. Your Care Team JAKI FLEMING DO Your Diagnosis Acute on chronic kidney failure Atrial fibrillation 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 Hydronephrosis Nephrolithiasis Non-Insulin Dependent Diabetes Mellitus Pyelonephritis What to do next Scheduled Follow-Up Appointments Appointment Type When With Where Contact InformationURO OV 10/14/2023 10:10 AM EST EZEKIEL BURRIS MD [facility] INF Labwork 10/18/2023 10:30 AM EST Infusion Therapy HEM ONC OV Follow Up w/Active Treatment 10/18/2023 11:15 AM CLOVER ORELLANA MD [facility] INF Chemo: Infusion Injection 15 min 10/18/2023 11:45 AM EST Infusion Therapy CV OV 11/03/2023 10:00 AM EST CHARMAINE LO STANLEY-TEMPLE MARKER [facility] Follow Up Appointments Follow Up with JAKI FLEMING DO, Internal Medicine, [facility] / IM When Within 1-2 days Why: THE OFFICE WILL CALL WILL AN APPOINTMENT Where: [address] [facility] [place] [address]- Follow Up with EZEKIEL QUIROS MD, [facility] When Within 1-2 days Why: Please call the office to schedule a follow-up appointment. Where: [address] [facility] [address] [place] [address]- Follow Up with HOME MEDS - Patient [...] 12 hours Duration: 5 Days Pickup at [facility] New tamsulosin (tamsulosin 0.4 mg oral capsule) 1 cap by mouth Once a day after a meal Pickup at [facility] Unchanged acetaminophen-diphenhydramine (Tylenol PM Extra Strength oral [...] cap by mouth Every day Pharmacy Information [facility]: [address] [place] [address] [phone] What How Much When Comments Stop Taking [...] may report side effects to FDA at 0-522-BBN-7998. What other drugs will affect tamsulosin? Sometimes [...] may affect tamsulosin. This includes prescription and tfbm-ckv-eitquzl medicines, vitamins, and herbal products. Not all [...] to ensure that the information provided by [employer]. ('Multum') is accurate, up-to-date, and complete, but no guarantee is made to that effect. Drug information contained herein may be time sensitive. copygram information has been compiled for use by healthcare practitioners and consumers in the [place] and therefore copygram does not warrant that uses outside of the [place] are appropriate, unless specifically indicated otherwise. K[employer]heng Chu[employer] drug information does not endorse drugs, diagnose patients or recommend therapy. Seeders drug information isan informational resource designed to [...] effective or appropriate for any given patient. [facility] [employer] does not assume any responsibility for any aspect of healthcare administered with the aid of information copygram provides. The information contained herein is not intended to cover all possible uses, directions, precautions, warnings, drug interactions, allergic reactions, or adverse effects. If you have questions about the drugs you are taking, check with your doctor, nurse or pharmacist. Copyright 2180-3817 [employer] [facility] Isai. Version: 07.06. Revision Date: 11/26/2022. cefdinir (SE [...] may report side effects to FDA at 6-138-NDY-2829. What other drugs will affect cefdinir? Tell your doctor about all your other medicines, especially: probenecid; or vitamin or mineral supplements that contain iron. This list is not complete. Other drugs may affect cefdinir, including prescription and hmmw-hhk-dpvhlaf medicines, vitamins, and herbal products. Not all [...] to ensure that the information provided by [employer]. ('[employer] Information[employer]') is accurate, up-to-date, and complete, but no guarantee is made to that effect. Drug information contained herein may be time sensitive. copygram information has been compiled for use by healthcare practitioners and consumers in the [place] and therefore copygram does not warrant that uses outside of the [place] are appropriate, unless specifically indicated otherwise. Seeders drug information does not endorse drugs, diagnose patients or recommend therapy. Seeders drug information isan informational resource designed to [...] effective or appropriate for any given patient. copygram does not assume any responsibility for any aspect of healthcare administered with the aid of information copygram provides. The information contained herein is not intended to cover all possible uses, directions, precautions, warnings, drug interactions, allergic reactions, or adverse effects. If you have questions about the drugs you are taking, check with your doctor, nurse or pharmacist. Copyright 2382-1876 [employer]. Version: 9.01. Revision Date: 04/08/2023. Education Materials [...] even if youstart to feel better. Take bums-lnq-exdkybm and prescription medicines only as told by [...] 09/29/2005 Document Revised: 06/26/2019 Document Reviewed: 06/26/2019 ElseCellARide Patient Education 2020 [employer]. Additional Information VACCINATE! IT SAVES LIVES! Members of the community who have not yet received the COVID-19 vaccine and would like to receive it can visit one of [facility] vaccine clinics. There are many vaccine clinic locations within the [facility]. For locations and available times, please visit https://[email or web address].[place].gov/. It is important to note that some COVID mobile vaccine clinics are held outdoors and may be canceled in rainy or stormy conditions. To learn more about pediatric vaccinations (ages 5-11), we invite you to visit the [facility] webpage. https://www.[facility].org/pages/4067-Klmze-Zurfignhmes-Pwrfkkeynt-Ktwva-Iiv stions.htmlTo learn more about the COVID-19 vaccine, we invite you to visit the CDC website for a list of frequently asked questions.https://www.cdc.gov/coronavirus/2019-ncov/vaccines/faq.html [facility] StockCastrChart Patient Portal Access Instructions: Stay connected with your healthcare team and access your personal medical information anytime with the [facility] Patient Portal. Please follow the directions below to create your [facility]egorzMakeblock account: 1.Access the email account you provided upon registration to the hospital/physician office.2.Look for an invitation email from [facility].3.Open the email and access the invitation link: AcceptInvitation to [facility].4.Fill in the required ortega to create your account. To access your account, visit Rithmio/My Study Rewardst. Click the blue button labeled Access Patient Portal and then log in with the username and password that you created in the steps above. You will be able to view your test results, lab results, a summary of your visits, upcoming appointments and more. There is also a convenient messaging option where you can send secure messages to your p Gasp Solarvider. In addition, you will have the ability to download any documents or summaries to your computer and/or send the information securely to a physician. Remember that your healthcare information is confidential, so carefully consider who you will allowto register on the [facility]Make[facility] Patient Portal for access to your information. You can also access the [facility] Patient Portal on the [facility] Anywhere jyoti. Simply click on Patient Portal and then log into your account. If you would like to receive a full copy of your medical records, please contact the [facility] Medical Records Department by calling [phone], Tuesday through Tuesday between 8 a.m. and [...] Call your local pharmacy or go to [email or web address] [email or web address] to find one close to you.3.Make use of household items: Use cat litter or old coffee grounds to dispose medications if other options arenot available. Mix your drugs with these household products, seal them in an airtight container andthrow it into the garbage. Call [facility]: [phone] to be sure your drugs can be [...] COPY. Signatures Patient Education Materials Pyelonephritis, Adult, Xmna-vi-Itbg Medication Leaflets tamsulosin, cefdinir My discharge plan and instructions have been reviewed and explained to me and I,JAYLEN GALAVIZ understand my current condition and have read and understand these discharge instructions. I have received a written copy of the plan/instructions. If I have questions, I am aware that I should contact my doctor. 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 Presented to [facility] on 09/21/2023 with complaint of abdominal [...] by ERIKA HAWLEY on 09/22/2023 02:47 PM [facility] HospitalFckbhjlp02-22-8682 Note Date of Service 09/22/2023 Chief Complaint Weakness Subjective 88-year-old male with a past medical history of A-fib, CAD, type 2 diabetes, hypertension, and prostate cancer. Presented to [facility] on 09/21/2023 with complaint of abdominal [...] by ERIKA HAWLEY on 09/22/2023 02:47 PM [facility] HospitalTioykcum36-76-9317 Urology Progress note Date of Service 09/22/2023 [...] chronic kidney failure Atrial fibrillation 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 Hydronephrosis Nephrolithiasis Non-Insulin Dependent Diabetes Mellitus [...] Ongoing 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 Chronic venous insufficiency Diabetes Elevated PSA [...] EZEKIEL QUIROS MD on 09/22/2023 10:01 AM [facility] Progress note Preliminary urine culture growing out staphylococcal lugdunensis. Given tendency for resistance to other antibiotics will give 1 dose of vancomycin IV until sensitivities back. Digitally Signed by EZEKIEL QUIROS MD on 09/21/2023 07:07 PM [facility]hb[facility]1918 Note Date of Service 09.21.23 Chief Complaint [...] Pyelonephritis 4. Atrial fibrillation 5. 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 6. Non-Insulin Dependent Diabetes Mellitus 7. [...] J LUIS KUMAR on 09/21/2023 04:13 PM [facility]Dpqthugh89-32-7811 Evaluation + Plan noteExtracted from: Title:History and [...] Date:11/03/2023 10:00:00 AM Scheduled Provider:CHARMAINE LO Location:[facility] Appointment Type:CV OV Future Scheduled Tests Laboratory* Basic Metabolic Panel 12/01/22 * Prostate Specific Antigen 10/08/23 * Prostate Specific Antigen 10/17/23 * Prostate Specific Antigen 06/28/23 * Prostate Specific Antigen 05/19/23 * Complete Blood Count 12/01/22 * Complete Blood Count 10/17/23 * Complete Metabolic Panel 10/17/23 Radiology* NM Myocardial Spect Rest/Stress 09/21/23 [facility] 01-17-2024 Anesthesiology Consult note Patient: JAYLEN [...] HAYDEE MARKHAM DO on 09/21/2023 01:10 PM [facility]oigzntz70-83-8727 Note ORIGINAL HISTORY: Pain COMPARISON: No FLUOROSCOPY TIME: 0.6 minutes FLUOROSCOPY IMAGES: 43 IMPRESSION: Fluoroscopy provided to the Urology service. Interpreted by: Mohan Parra MD Preliminary Report By: Mohan Parra MD Electronically signed By Mohan Parra MD Dictated Date: 09/21/2023 11:00:18 AM Prelim Date: 09/21/2023 11:00:59 AM Sign Date: 09/21/2023 11:00:59 AM Ordering Provider: [facility]01-17[facility]24 Anesthesiology Consult note Patient: JAYLEN GALAVIZ Age: [...] q6h Problem list: Medical (Selected) 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 / SNOMED CT 81680616 / Confirmed Macular degeneration / SNOMED CT 4209813908 / Confirmed Diabetes / SNOMED CT 525363374 / Confirmed Elevated PSA / SNOMED CT 2577708856 / Confirmed Family history of prostate cancer / SNOMED CT 1749940086 / Confirmed GERD - Gastro-esophageal reflux disease / SNOMED CT 4680341933 / Confirmed History of blood clots / SNOMED CT 832325604 / Confirmed History of urinary retention / SNOMED CT 600866314 / Confirmed Hernia, internal / SNOMED CT 92270877 / Confirmed Kidney stones / SNOMED CT 591071900 / Confirmed Nocturia / SNOMED CT 680036586 / Confirmed BPH associated with nocturia / SNOMED CT 2763806755 / Confirmed Ureterovesical junction obstruction / SNOMED CT 9604016560 / Confirmed Chronic venous insufficiency / SNOMED CT 07933315 / Confirmed Renal insufficiency, mild / SNOMED CT 5221211410 / Confirmed Synovial cyst / SNOMED CT 342971283 / Confirmed Non-Insulin Dependent Diabetes Mellitus / SNOMED CT 378502757 / Confirmed, Active Problems (41) Age-related macular degeneration Anxiety Arthritis Borderline low oxygen saturation level 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 Chronic venous insufficiency Colon, diverticulosis CPAP [...] Histories Past Medical History: Active Hernia, internal (05514348) Diabetes (839440816) History of urinary retention (390175645) Comments: 01/19/2023 EDT 9:06 EDT - LVAERN Koch urinary retention Resolved Diastasis recti (532431247): Resolved. History of UTI (3104701204): Resolved. Comments: - 09/2017 - [facility] Family History: Diabetes mellitus Mother Asthma Brother Heart disease Mother Father Stroke Mother Heart attack Son () Arthritis 28-MAY-2014 16:49:04<$> Son Prostate cancer 03-Mar-2016 02:35:22<$> Brother Procedure history: Transperineal biopsy of prostate using magnetic resonance imaging and ultrasonography fusion guidance (1438677123) on 02/01/2023 at 87 Years. Heart valve replacement - graft (287056089) in 2012 at 78 Years. CABG (Coronary artery bypass grafting) planned (1402330553) on 09/17/2012 at 77 Years. Carpal tunnel release (488705049). Comments: 01/19/2023 9:31 LAVERN Kennedy right Hiatus hernia repair (805462224). Colonoscopy (184472650). Dupuytren contracture (9691742428). Comments: 01/19/2023 9:32 LAVERN Kennedy right Esophagogastroduodenoscopy (953628952). Social History Social & Psychosocial Habits Alcohol [...] Oral36.8 DegC (SEP 21 07:53) Heart Rate Kdijryfjr80 bpm (SEP 20 23:22) SBPL 88mmHg (SEP 21 07:53) DBPC 40mmHg (SEP 21 07:53) BMI27.84 (SEP 20 23:28) Measurements from flowsheet : Measurements 09/20/2023 23:28 EST Height 180.3 cm Height in inches 71 inch(es) Admission Weight 90.5 kg Weight Lbs 199.1 lb [place] Body Weight 75.26 kg BSA Admission 2.11 Body Mass Index 27.84 kg/m2 09/20/2023 15:23 EST Height 180 cm Admission Weight 95.5 kg [place] Body Weight 74.99 kg 09/20/2023 7:53 EST Height 180.3 cm Admission Weight 95.5 kg [place] Body Weight 75.26 kg Pain assessment: Pain [...] limitations Nutrition Master Adequate Friction and Shear Masetr No apparent problem Master Score 20 Hospital [...] evident Teaching Method Explanation Preferred Spoken Language Bangladeshi Preferred Written Language Bangladeshi Able To Drink Order Detail Yes Able To Sign Consents Order Detail Yes Code Status Order Detail Full code IV Order Detail Yes Dialysis Schedule Order Detail N/A Has Diabetes Order Detail Yes Isolation Precautions Order Detail None Nurse Collect Order Detail 0 Oxygen Order Detail No Order Detail N/A Prior Valve Replacement Order Detail No Transport Mode Order Detail Patient bed Professor Of Mechanical Engineering Details Form Professor Of Mechanical Engineering Details Form 09/21/2023 0:35 EST Influenza Vaccine [...] #2 We May Share PHI donna galaviz [phone] Designated Person #2 Relationship Son Additional Designated Person Share PHI bill ibarra, friend [phone] Privacy Restrictions Requested None Height 180.3 cm Height in inches 71 inch(es) Admission Weight 90.5 kg Weight Lbs 199.1 lb [place] Body Weight 75.26 kg BSA Admission 2.11 [...] evident Teaching Method Explanation Preferred Spoken Language Bangladeshi Preferred Written Language Bangladeshi Teaching Evaluation Verbalizes/Nonverbally indicates understanding Safety Brochure [...] Type 0-10 Pain scale Nail Bed Color [place] Capillary Refill < 2 seconds Heart Rhythm [...] Elimination Voiding with difficulties All Extremity Description [place] Skin Temperature Warm Temperature All Extremities Warm Skin Description Dry Skin Integrity Pressure points intact Skin Turgor Elastic Mucous Membrane Color [place] Mucous Membrane Description Moist Neurological Language Able [...] for Transfer Medically indicated transfer 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 Barnes Nurse Receiving Report Lucinda PUCKETT Date/Time Nurse Received Report 09/20/2023 20:00 Mode of Transfer Ground ambulance Required Personnel for Transfer EMT Ambulance Service [facility] 09/20/2023 19:55 EST Patient Information Note [...] Number of Attempts: 1 09/20/2023 15:28 EST [place] [facility] Note 09/20/2023 15:25 EST Primary [...] Height 180 cm Admission Weight 95.5 kg [place] Body Weight 74.99 kg Temperature Oral 37.4 [...] Opening Response Juan Spontaneously Best Motor Response Uledi Obeys simple commands Best Verbal Response Uledi Oriented Juan Coma Score 15 Wish To [...] No Weight Loss No Preferred Spoken Language Bangladeshi Preferred Written Language Bangladeshi Tracking Group ED AO Tracking Group Tracking Acuity 3 Mode of Transfer Private vehicle Prev Test Positive/Diagnosis w/COVID-19 No Current Quarantine/Isolated any Illness No Any Contact with Sick Animals/Birds No Traveled Anywhere in Last 30 Days No ED Triage Adults ED Triage Adults 09/20/2023 14:22 EST Transition of Care Note Transition of Care sent from [facility] 09/20/2023 9:35 EST Pain Scale Assessment 0-10 [...] cephalexin 500 mg mg 09/20/2023 9:25 EST [place] [facility] Patient Summary ED/Urgent Care Discharge Instructions [...] /HPF UA Bacteria 3+ /HPF 09/20/2023 8:05 [facility] Emergency Room Note 09/20/2023 7:58 EST [...] Height 180.3 cm Admission Weight 95.5 kg [place] Body Weight 75.26 kg Temperature Oral 36.5 [...] Symptoms Frequency Skin Temperature Warm Skin Description [place], Dry Mucous Membrane Description Moist Level of Consciousness Alert Eye Opening Response Uledi Spontaneously Best Motor Response Uledi Obeys simple commands Best Verbal Response Juan Oriented Uledi Coma Score 15 Violence Risk Confused No [...] No Weight Loss No Preferred Spoken Language Bangladeshi Preferred Written Language Bangladeshi Tracking Group ED AO Tracking Group Tracking [...] ED Triage Adults . Assessment and Plan [place] Society of Anesthesiologists (ASA) physical status classification: [...] HAYDEE MARKHAM DO on 09/21/2023 01:09 PM [facility]Zztopwfu07-19-9748 Urology Consult note Date of Service 09/21/2023 Reason for Consultation Left ureteral stone, obstructive left pyelonephritis, prostate cancer Referring Physician Hospitalist team History of Present Illness This is a 88-year-old male recently diagnosed with prostate cancer completed course of radiation therapy 07/29. Multifocal [place] score 7 and 8 noted on 6 of 12 cores. PSA was in then 9.8 range. He also received preradiation Lupron and will remain on this for 2 years. Minimal side effects from this. He has been followed in the past for nonobstructing left renal stone. 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 [address] [place] [address]. All rights reserved. This information is not intended as a substitute for professional medical care. Always follow yourhealthcare professional's instructions. Follow Up Care 09/20/2023 07:42:30 With:JAKI FLEMING DO, Internal Medicine, [facility] / [facility] Address: [address] [place] [phone] When:2-4 days [facility] 01-16-2024 Note Discharge Instructions Thank you for allowing [facility] to assist you with your healthcare needs. The following is importantdischarge information regarding your hospital visit. Diagnosis from Today's Visit Abdominal pain UTI - Urinary tract infection What to Do Next Instructions from Your Care Team No qualifying data available. Post Acute Orders No qualifying data available. You Need to Schedule the Following Appointments Follow Up with JAKI FLEMING DO, Internal Medicine, [facility] / IM When Within 2-4 days Where: [address] [place] [phone]- [phone] Allergies NKA Medications Please ask your primary [...] may report side effects to FDA at 5-912-HRC-2595. What other drugs will affect cephalexin? Tell your doctor about all your other medicines, especially: metformin; or probenecid. This list is not complete. Other drugs may affect cephalexin, including prescription and pnad-plc-vpsqdoc medicines, vitamins, and herbal products. Not all [...] to ensure that the information provided by [employer]. ('[employer]') is accurate, up-to-date, and complete, but no guarantee is made to that effect. Drug information contained herein may be time sensitive. copygram information has been compiled for use by healthcare practitioners and consumers in the [place] and therefore copygram does not warrant that uses outside of the [place] are appropriate, unless specifically indicated otherwise. copygram's drug information does not endorse drugs, diagnose patients or recommend therapy. Seeders drug information isan informational resource designed to [...] effective or appropriate for any given patient. [facility] does not assume any responsibility for any aspect of healthcare administered with the aid of information [facility] [employer] provides. The information contained herein is not intended to cover all possible uses, directions, precautions, warnings, drug interactions, allergic reactions, or adverse effects. If you have questions about the drugs you are taking, check with your doctor, nurse or pharmacist. Copyright 3208-5719 [employer]. Version: .. Revision Date: 04/06/2023. Education Materials [...] to keep medicine down Weakness or dizziness 6796-4010 [employer]. [address] [place] [address], [place] [address]. All rights reserved. This information is not intended as a substitute for professional medical care. Always follow yourhealthcare professional's instructions. Additional Information VACCINATE! IT SAVES LIVES! Members of the community who have not yet received the COVID-19 vaccine and would like to receive it can visit one of [facility] vaccine clinics. There are many vaccine clinic locations within the [facility]. For locations and available times, please visit www.gettheshot.coronavirus.[place].gov/. It is important to note that some COVID mobile vaccine clinics are held outdoors and may be canceled in rainy or stormy conditions. To learn more about pediatric vaccinations (ages 5-11), we invite you to visit the [facility] webpage. https://www.[facility].org/pages/7291-Ukpsx-Nigszpyeriy-Eokzlztmxk-Yvalh-Mly stions.htmlTo learn more about the COVID-19 vaccine, we invite you to visit the CDC website for a list of frequently asked questions. https://www.cdc.gov/coronavirus/2019-ncov/vaccines/faq.html [facility] Patient Portal Access Instructions: Stay connected with your healthcare team and access your personal medical information anytime with the [employer] Patient Portal. If you would like a full copy of your medical records please contact the [facility] Medical Records Department Tuesday through Tuesday between 8a.m. and 4:30p.m. Please follow the directions below to access the portal: 1.Access the email account you provided upon registration to the [facility].2.Look for an invitation email from [facility].3.Open the email and access the invitation link: Accept Invitation to [facility]4.Fill in the required ortega to create your account. Sign into [email or web address] with your username and password that you [...] you will allow to register on the [employer] Patient Portal for access to your information. You can also access the [employer] Patient Portal on the Dr. Z. Simply click on Health Records under [employer] and then click on the [employer] logo. HOW TO SAFELY DISPOSE OF PRESCRIPTION [...] Call your local pharmacy or go to http://Social Point.Cubie/0G5Un2p to find one close to you.3.Make use of household items: Use cat litter or old coffee grounds to dispose medications if other options arenot available. Mix your drugs with these household products, seal them in an airtight container andthrow it into the garbage. Call [facility]: [phone] to be sure your drugs can be [...] aware that I should contact my doctor. Patient/Principal Network Engineer Signature: Date/Time: Relationship to Patient: Witness Name/Signature: Date/Time: [facility] Rxtnbwcw24-99-1130 Hospital Discharge instructions Patient Education 09/06/2023 14:37:15 [...] or varicose veins, don t sit or rn building one place for long periods of time. [...] Weakness or dizziness Shaking chills Drenching sweats 4876-8305 [employer]. [address] [place] [address], [place] [address]. All rights reserved. This information is not intended as a substitute for professional medical care. Always follow yourhealthcare professional's instructions. Follow Up Care 09/06/2023 11:50:37 With:JAKI FLEMING DO, Internal Medicine, [facility] Address: [address] [place] [phone]- [phone] When:2-4 days [facility] 01-02-2024 Emergency department Discharge summary Discharge Instructions Thank you for allowing [facility] to assist you with your healthcare needs. [...] IM When Within 2-4 days Where: [address] [place] [phone] Allergies NKA Medications Please ask your primary [...] or varicose veins, don t sit or rn building one place for long periods of time. [...] Weakness or dizziness Shaking chills Drenching sweats [phone] [employer] [place] [address]. All rights reserved. This information is not intended as a substitute for professional medical care. Always follow yourhealthcare professional's instructions. Additional Information VACCINATE! IT SAVES LIVES! Members of the community who have not yet received the COVID-19 vaccine and would like to receive it can visit one of [facility] vaccine clinics. There are many vaccine clinic locations within the [facility]. For locations and available times, please visit www.gettheshot.coronavirus.[place].gov/. It is important to note that some COVID mobile vaccine clinics are held outdoors and may be canceled in rainy or stormy conditions. To learn more about pediatric vaccinations (ages 5-11), we invite you to visit the [facility] webpage. https://www.[facility].org/pages/6233-Hqddd-Orabswjxzvo-Vswupugyrw-Ndtun-Jfo stions.htmlTo learn more about the COVID-19 vaccine, we invite you to visit the CDC website for a list of frequently asked questions. https://www.cdc.gov/coronavirus/2019-ncov/vaccines/faq.html [facility] Patient Portal Access Instructions: Stay connected with your healthcare team and access your personal medical information anytime with the [facility] Patient Portal. If you would like a full copy of your medical records please contact the [facility] Medical Records Department Tuesday through Tuesday between 8a.m. and 4:30p.m. Please follow the directions below to access the portal: 1.Access the email account you provided upon registration to the hospital.2.Look for an invitation email from [facility].3.Open the email and access the invitation link: Accept Invitation to Gr[employer]orzMakeblock4.Fill in the required ortega to create your account. Sign into [email or web address] with your username and password that you [...] you will allow to register on the [employer] Patient Portal for access to your information. You can also access the [employer] Patient Portal on the [facility]yoti. Simply click on Health Records under [employer] and then click on the [employer] logo. HOW TO SAFELY DISPOSE OF PRESCRIPTION [...] Call your local pharmacy or go to http://Social Point.Cubie/7R9Dz7s to find one close to you.3.Make use of household items: Use cat litter or old coffee grounds to dispose medications if other options arenot available. Mix your drugs with these household products, seal them in an airtight container andthrow it into the garbage. Call [facility]: [phone] to be sure your drugs can be [...] aware that I should contact my doctor. Patient/Principal Network Engineer Signature: Date/Time: Relationship to Patient: Witness Name/Signature: Date/Time: [facility]-67[facility] Note* Exam Date Time Procedure Performing Provider Status 09/06/23 1:54 PM VL Venous US/Doppler One Leg (for DVT). Auth (Verified) [facility] 01-02-2024 Note ORIGINAL EXAMINATION: ONE XRAY [...] Date: 09/06/2023 1:58:31 PM Ordering Provider: [facility]01-02-2024 NoteSINUS RHYTHM ATRIAL PREMATURE COMPLEXES PROLONGED [place] INTERVAL INFERIOR INFARCT, OLD Electronic Signature: LASHAE MOULTON MD 09/06/2023 14:36:18[facility] 12-24-2023 Hospital Discharge instructions Patient Education [...] the body, your health is at risk. 3606-5078 [employer]. [address] [place] [address], [place] [address]. All rights reserved. This information is not [...] vision Extreme drowsiness, confusion, dizziness, or fainting [phone] [employer] [place] [address]. All rights reserved. This information is not intended as a substitute for professional medical care. Always follow yourhealthcare professional's instructions. Follow Up Care 08/28/2023 11:46:37 With:CHARMAINE LO Address: [address] [facility] [address] [facility] [place] [address]- [phone] Business (1) When:2-4 days Comments:You are started [...] worsening or concerning symptoms. With:JAKI FLEMING Address: [address] [facility] [place] [address]- [phone] Business (1) When:2-4 days [facility] 12-24-2023 Note Discharge Instructions Thank you for allowing [facility] to assist you with your healthcare needs. [...] worsening or concerning symptoms. Where: [address] [facility] [address] [facility] [place] [address]- [phone] Business (1) Follow Up with JAKI FLEMING When Within 2-4 days Where: [address] [facility] ([facility] [place] [address]- [phone] Business (1) Allergies NKA Medications Please ask [...] medicines at the same time (including some pxyp-crp-eepdnto medicines). Tell your doctor about all medicines [...] may report side effects to FDA at 3-882-PVW-4446. What other drugs will affect apixaban? Sometimes it is not safe to use certain medications at the same time. Some drugs can affect your blood levels of other drugs you take, which may increase side effects or make the medications less effective. Many other drugs (including some gpit-shf-ajcnlwy medicines) can increase your risk of bleeding or blood clots. Tell your doctor about all medicines you have recently used, especially: any other medicines to treat or prevent blood clots; a blood thinner such as heparin or warfarin (Coumadin, Jantoven); an antidepressant; or aspirin or other NSAID (nonsteroidal anti-inflammatory drug) used terminal gauger supervisor. This list is not complete and many other drugs may affect apixaban. This includes prescription and dlni-nxd-chkendc medicines, vitamins, and herbal products. Not all [...] to ensure that the information provided by [employer]. ('[employer]') is accurate, up-to-date, and complete, but no guarantee is made to that effect. Drug information contained herein may be time sensitive. copygram information has been compiled for use by healthcare practitioners and consumers in the [place] and therefore [employer]gram does not warrant that uses outside of the [place] are appropriate, unless specifically indicated otherwise. [employer] drug information does not endorse drugs, diagnose patients or recommend therapy. [employer] drug information isan informational resource designed to [...] effective or appropriate for any given patient. copygram does not assume any responsibility for any aspect of healthcare administered with the aid of information copygram provides. The information contained herein is not intended to cover all possible uses, directions, precautions, warnings, drug interactions, allergic reactions, or adverse effects. If you have questions about the drugs you are taking, check with your doctor, nurse or pharmacist. Copyright 8337-2150 [employer]. Version: 6.01. Revision Date: 04/28/2021. Education Materials [...] the body, your health is at risk. 0323-6073 [employer]. [address] [place] [address]. All rights reserved. This information is not [...] vision Extreme drowsiness, confusion, dizziness, or fainting 0987-3159 [employer]. [address] [place] [address]. All rights reserved. This information is not intended as a substitute for professional medical care. Always follow yourhealthcare professional's instructions. Additional Information VACCINATE! IT SAVES LIVES! Members of the community who have not yet received the COVID-19 vaccine and would like to receive it can visit one of [facility] vaccine clinics. There are many vaccine clinic locations within the [facility]. For locations and available times, please visit www.gettheshot.coronavirus.[place].gov/. It is important to note that some COVID mobile vaccine clinics are held outdoors and may be canceled in rainy or stormy conditions. To learn more about pediatric vaccinations (ages 5-11), we invite you to visit the [facility] webpage. https://www.akronMotilos.org/pages/7945-Smktj-Wsxxpvyejht-Ghbkbpnlhr-Sihef-Cgi stions.htmlTo learn more about the COVID-19 vaccine, we invite you to visit the CDC website for a list of frequently asked questions. https://www.cdc.gov/coronavirus/2019-ncov/vaccines/faq.html [facility] Patient Portal Access Instructions: Stay connected with your healthcare team and access your personal medical information anytime with the [facility] Patient Portal. If you would like a full copy of your medical records please contact the [facility] Medical Records Department Tuesday through Tuesday between 8a.m. and 4:30p.m. Please follow the directions below to access the portal: 1.Access the email account you provided upon registration to the hospital.2.Look for an invitation email from [facility].3.Open the email and access the invitation link: Accept Invitation to [facility]4.Fill in the required ortega to create your account. Sign into [email or web address] with your username and password that you [...] you will allow to register on the [facility] Patient Portal for access to your information. You can also access the [facility] Patient Portal on the Dr. Z. Simply click on Health Records under [employer] and then click on the [employer] logo. [...] Call your local pharmacy or go to http://Social Point.Cubie/1R0Wo3b to find one close to you.3.Make use of household items: Use cat litter or old coffee grounds to dispose medications if other options arenot available. Mix your drugs with these household products, seal them in an airtight container andthrow it into the garbage. Call [facility]: [phone] to be sure your drugs can be [...] aware that I should contact my doctor. Patient/Principal Network Engineer Signature: Date/Time: Relationship to Patient: Witness Name/Signature: Date/Time: [facility]12-24-2023 NoteSinus or ectopic atrial rhythm Atrial premature complexes in couplets Prolonged [place] interval Inferior infarct, old Lateral leads are also involved Baseline wander in lead(s) V2 Electronic Signature: MAJO HOLDER MD 08/28/2023 12:02:59[facility] 09-27-2023 Hospital Discharge instructions Patient Education 06/01/2023 [...] you feel better and your symptoms ease. 6014-2481 [employer]. [address] [place] [address], [place] [id number]. All rights reserved. This information is not [...] with soap and water or use alcohol-based bodywork therapist to prevent the spread of infection. Wash your hands after touching anyone who is sick. Wash your hands or use alcohol-based bodywork therapist after using the toilet and before meals. [...] Keep uncooked meats away from cooked and qehtp-yk-gsy foods. Medicine You may use acetaminophen or [...] directed by your healthcare provider Royer gusman 1387-3150 [employer]. [address] [place] [address]. All rights reserved. This information is not [...] with soap and water or use alcohol-based bodywork therapist to prevent the spread of infection. Wash your hands after touching anyone who is sick. Wash your hands or use alcohol-based bodywork therapist after using the toilet and before meals. [...] Keep uncooked meats away from cooked and iruyc-gh-pso foods. Medicine You may use acetaminophen or [...] directed by your healthcare provider Royer gusman [phone] [employer]. [address] [place] [address]. All rights reserved. This information is not intended as a substitute for professional medical care. Always follow yourhealthcare professional's instructions. Follow Up Care 05/31/2023 23:06:56 With:JAKI FLEMING DO, Internal Medicine, [facility] Address: [address] [place] [address] [place] [address] [phone] When:2-4 days [facility] 09-27-2023 Emergency department Discharge summary Discharge Instructions Thank you for allowing [facility] to assist you with your healthcare needs. [...] IM When Within 2-4 days Where: [address] [place] [phone] Allergies NKA Medications Please ask your primary [...] you feel better and your symptoms ease. 6999-3102 [employer]. [address] [place] [address]. All rights reserved. This information is not [...] with soap and water or use alcohol-based bodywork therapist to prevent the spread of infection. Wash your hands after touching anyone who is sick. Wash your hands or use alcohol-based bodywork therapist after using the toilet and before meals. [...] Keep uncooked meats away from cooked and wbqwi-ss-rcy foods. Medicine You may use acetaminophen or [...] directed by your healthcare provider Royer gusman [phone] [employer]. [address] [place] [address], [place] [address]. All rights reserved. This information is not [...] with soap and water or use alcohol-based bodywork therapist to prevent the spread of infection. Wash your hands after touching anyone who is sick. Wash your hands or use alcohol-based bodywork therapist after using the toilet and before meals. [...] Keep uncooked meats away from cooked and jqyyt-sh-keu foods. Medicine You may use acetaminophen or [...] directed by your healthcare provider Royer gusman [phone] [employer]. [address] [place] [address]. All rights reserved. This information is not intended as a substitute for professional medical care. Always follow yourhealthcare professional's instructions. Additional Information VACCINATE! IT SAVES LIVES! Members of the community who have not yet received the COVID-19 vaccine and would like to receive it can visit one of [facility] vaccine clinics. There are many vaccine clinic locations within the [facility]. For locations and available times, please visit www.gettheshot.coronavirus.[place].gov/. It is important to note that some COVID mobile vaccine clinics are held outdoors and may be canceled in rainy or stormy conditions. To learn more about pediatric vaccinations (ages 5-11), we invite you to visit the [facility] webpage. https://www.[facility].org/pages/2433-Fivzi-Djopxxmwbkg-Fdhrruwvoq-Rvmah-Ztn stions.htmlTo learn more about the COVID-19 vaccine, we invite you to visit the CDC website for a list of frequently asked questions. https://www.cdc.gov/coronavirus/2019-ncov/vaccines/faq.html [facility] Patient Portal Access Instructions: Stay connected with your healthcare team and access your personal medical information anytime with the [facility] Patient Portal. If you would like a full copy of your medical records please contact the [facility] Medical Records Department Tuesday through Tuesday between 8a.m. and 4:30p.m. Please follow the directions below to access the portal: 1.Access the email account you provided upon registration to the hospital.2.Look for an invitation email from [facility].3.Open the email and access the invitation link: Accept Invitation to [facility]4.Fill in the required ortega to create your account. Sign into [email or web address] with your username and password that you [...] you will allow to register on the [employer] Patient Portal for access to your information. You can also access the [employer] Patient Portal on the [employer]. Simply click on Health Records under [employer] and then click on the [employer] logo. HOW TO SAFELY DISPOSE OF PRESCRIPTION [...] Call your local pharmacy or go to http://Social Point.Cubie/7E2Ca7d to find one close to you.3.Make use of household items: Use cat litter or old coffee grounds to dispose medications if other options arenot available. Mix your drugs with these household products, seal them in an airtight container andthrow it into the garbage. Call [facility]: [phone] to be sure your drugs can be [...] aware that I should contact my doctor. Patient/Principal Network Engineer Signature: Date/Time: Relationship to Patient: Witness Name/Signature: Date/Time: [facility]3887 Note ORIGINAL EXAMINATION: CT OF THE ABDOMEN [...] Sign Date: 06/01/2023 1:31:38 AM Ordering Provider: [facility]08[facility]29-2023 Hospital Discharge instructions Patient Education 05/03/2023 18:33:17 Knee Pain of Uncertain Cause Knee Pain with Uncertain Cause There are several common causes for knee pain. These can include: A sprain of the ligaments that support the joint An injury to the cartilage lining of the joint Arthritis from rhfr-utd-wqhj or inflammation There are other causes as [...] heat. If you have to wear a nozq-ill-hbmw knee brace, you can open it to apply the ice pack, or heat, directly to the knee. Never put ice directly on the skin. Always wrap the ice in atowel or other type of cloth. You may use htqg-ykq-pqsdjuc pain medicine to control pain, unless another [...] full work duties. If you have a rutp-nen-vzua knee brace, you can remove it to [...] as directed by your healthcare provider Chills 6979-0602 [employer]. [address] [place] [address]. All rights reserved. This information is not intended as a substitute for professional medical care. Always follow yourhealthcare professional's instructions. Follow Up Care 05/03/2023 17:05:56 With:JAKI FLEMING DO, Internal Medicine, [facility] Address: [address] [place] [address] [phone] When:2-4 days Comments:Make an appointment in 2 to 4 days with your physician. Return if you are worse in any way. [facility] 08-29-2023 Emergency department Discharge summary Discharge Instructions Thank you for allowing [facility] to assist you with your healthcare needs. [...] are worse in any way. Where: [address] [place] [address] [phone] Allergies NKA Medications Please ask your primary [...] cartilage lining of the joint Arthritis from zkxx-jrr-wned or inflammation There are other causes as [...] heat. If you have to wear a wobw-hsx-jtun knee brace, you can open it to apply the ice pack, or heat, directly to the knee. Never put ice directly on the skin. Always wrap the ice in atowel or other type of cloth. You may use fqkb-mqw-sivtsak pain medicine to control pain, unless another [...] full work duties. If you have a wcpj-hnt-llsp knee brace, you can remove it to [...] as directed by your healthcare provider Bryon [phone] [employer]. [address] [place] [address], [place] [address]. All rights reserved. This information is not intended as a substitute for professional medical care. Always follow yourhealthcare professional's instructions. Additional Information VACCINATE! IT SAVES LIVES! Members of the community who have not yet received the COVID-19 vaccine and would like to receive it can visit one of [facility] vaccine clinics. There are many vaccine clinic locations within the [facility]. For locations and available times, please visit www.gettheshot.coronavirus.[place].gov/. It is important to note that some COVID mobile vaccine clinics are held outdoors and may be canceled in rainy or stormy conditions. To learn more about pediatric vaccinations (ages 5-11), we invite you to visit the [facility] webpage. https://www.akronMotilos.org/pages/7272-Mnhdd-Ojbzngzprjp-Uiyopdhstj-Puflb-Kuk stions.htmlTo learn more about the COVID-19 vaccine, we invite you to visit the CDC website for a list of frequently asked questions. https://www.cdc.gov/coronavirus/2019-ncov/vaccines/faq.html [facility] Patient Portal Access Instructions: Stay connected with your healthcare team and access your personal medical information anytime with the [facility] Patient Portal. If you would like a full copy of your medical records please contact the [facility] Medical Records Department Tuesday through Tuesday between 8a.m. and 4:30p.m. Please follow the directions below to access the portal: 1.Access the email account you provided upon registration to the hospital.2.Look for an invitation email from [facility].3.Open the email and access the invitation link: Accept Invitation to [facility]4.Fill in the required ortega to create your account. Sign into [email or web address] with your username and password that you [...] you will allow to register on the [facility] Patient Portal for access to your information. You can also access the [employer] Patient Portal on the [employer]. Simply click on Health Records under [employer] and then click on the [employer] logo. [...] Call your local pharmacy or go to http://Social Point.Cubie/7R4Xl7y to find one close to you.3.Make use of household items: Use cat litter or old coffee grounds to dispose medications if other options arenot available. Mix your drugs with these household products, seal them in an airtight container andthrow it into the garbage. Call [facility]: [phone] to be sure your drugs can be [...] aware that I should contact my doctor. Patient/Principal Network Engineer Signature: Date/Time: Relationship to Patient: Witness Name/Signature: Date/Time: [facility]-8056 Note* Exam Date Time Procedure Performing Provider Status 05/03/23 5:33 PM VL Venous US/Doppler One Leg (for DVT). Auth (Verified) [facility] 08-25-2023 Summary of episode note GUILLAUMEJAYLEN [...] CV OV 08/25/2023 11:00 AM CHARMAINE DENIS [facility] Medications What How Much When Instructions [...] to receive it can visit one of [facility] vaccine clinics. There are many vaccine clinic locations within the [facility]. For locations and available times, please visit www.gettheshot.coronavirus.[place].gov/. It is important to note that some COVID mobile vaccine clinics are held outdoors and may be canceled in rainy or stormy conditions. To learn more about pediatric vaccinations (ages 5-11), we invite you to visit the [facility] webpage. https://www.[facility].org/pages/2753-Rfbit-Xnlgzjvkxum-Dxrhbbdrbm-Wndeb-Gkb stions.htmlTo learn more about the COVID-19 vaccine, we invite you to visit the CDC website for a list of frequently asked questions. https://www.cdc.gov/coronavirus/2019-ncov/vaccines/faq.html [facility] Patient Portal Access Instructions: Stay connected with your healthcare team and access your personal medical information anytime with the [facility] Patient Portal.If you would like a full copy of your medical records, please contact the [facility] Medical Records Department, Tuesday through Tuesday between 8a.m. and 4:30p.m. Please follow the directions below to access the portal: 1.Access the email account you provided upon registration to the hospital.2.Look for an invitation email from [facility].3.Open the email and access the invitation link: Accept Invitation to [facility]4.Fill in the required ortega to create your [...] you will allow to register on the [facility] Patient Portal for access to your information. You can also access the [facility] Patient Portal on the [employer]. Simply click on Health Records under [employer] and then click on the [employer] logo. [...] Call your local pharmacy or go to http://bit.ly/3H9Cs4g to find one close to you.3.Make use of household items: Use cat litter or old coffee grounds to dispose medications if other options arenot available. Mix your drugs with these household products, seal them in an airtight container andthrow it into the garbage. Call [facility]: [phone] to be sure your drugs can be [...] aware that I should contact my doctor. Patient/Principal Network Engineer Signature: Date/Time: Relationship to Patient: Witness Name/Signature: Date/Time: [facility]g43-31-7874 Note ORIGINAL EXAMINATION: PET/CT PSMA 03/24/2023 1:31 pm TECHNIQUE: Intravenous injection of 6.51 mCi IV Gallium-68 PSMA was performed, followed by PET acquisition from the skull vertex to mid-thigh. Concurrent low-dose CT for attenuation correction and anatomic localization was also performed. PET images were fused with low-dose CT at the workstation. Dose tltcdnygz-ld-xynq time: 63 min COMPARISON: CT abdomen pelvis [...] Date: 03/24/2023 2:49:31 PM Ordering Provider: [facility]Sum[id number] Hospital Discharge instructions Patient Education 02/21/2023 00:18:43 [...] following occur: Loss of consciousness Vomiting blood 3147-3022 [employer]. [address] [place] [address]. All rights reserved. This information is not [...] to keep medicine down Weakness or dizziness 5237-6493 [employer]. [address] [place] [address]. All rights reserved. This information is not [...] for 8 hours and increasing bladder pressure 6819-9335 [employer]. [address] [place] [address], [place] [address]. All rights reserved. This information is not intended as a substitute for professional medical care. Always follow yourhealthcare professional's instructions. Follow Up Care 02/20/2023 17:04:01 With:EZEKIEL BURRIS MD, [facility] Address: [address] [place] [address] [place] [phone] When:2-4 days With:ROYA BASILIO MD Address: [address] [facility], [place] [phone] When:2-4 days With:JAKI FLEMING DO, Internal Medicine, [facility] Address: [address] [place] [address] [place] [phone] When:2-4 days [facility] 06-19-2023 Emergency department Discharge summary Discharge Instructions Thank you for allowing [facility] to assist you with your healthcare needs. The following is importantdischarge information regarding your hospital visit. Diagnosis from Today's Visit Rectal bleeding Kidney stone UTI - Urinary tract infection Rectal bleed What to Do Next Instructions from Your Care Team No qualifying data available. Post Acute Orders No qualifying data available. You Need to Schedule the Following Appointments Follow Up with EZEKIEL BURIRS MD, [facility] When Within 2-4 days Where: [address] [phone] Follow Up with ROYA BASILIO MD When Within 2-4 days Where: [address] [facility], [place] [address]- [phone] Follow Up with JAKI FLEMING DO, Internal Medicine, [facility] / [facility] When Within 2-4 days Where: [address] [place] [address] [place] [address]- [phone] Allergies NKA Medications Please ask your primary [...] following occur: Loss of consciousness Vomiting blood 1598-1514 [employer]. [address] [place] [address]. All rights reserved. This information is not [...] to keep medicine down Weakness or dizziness 5254-3400 [employer]. [address] [place] [address], [place] [address]. All rights reserved. This information is not [...] for 8 hours and increasing bladder pressure 2672-7497 [employer]. [address] [place] [address]. All rights reserved. This information is not intended as a substitute for professional medical care. Always follow yourhealthcare professional's instructions. Additional Information VACCINATE! IT SAVES LIVES! Members of the community who have not yet received the COVID-19 vaccine and would like to receive it can visit one of [facility] vaccine clinics. There are many vaccine clinic locations within the [facility]. For locations and available times, please visit www.gettheshot.coronavirus.[place].gov/. It is important to note that some COVID mobile vaccine clinics are held outdoors and may be canceled in rainy or stormy conditions. To learn more about pediatric vaccinations (ages 5-11), we invite you to visit the [facility] webpage. https://www.[facility].org/pages/1110-Ifnyc-Qblicfcbddg-Wwqczgrfzp-Ohynf-Mcw stions.htmlTo learn more about the COVID-19 vaccine, we invite you to visit the CDC website for a list of frequently asked questions. https://www.cdc.gov/coronavirus/2019-ncov/vaccines/faq.html [facility] Patient Portal Access Instructions: Stay connected with your healthcare team and access your personal medical information anytime with the [facility] Patient Portal. If you would like a full copy of your medical records please contact the [facility] Medical Records Department Tuesday through Tuesday between 8a.m. and 4:30p.m. Please follow the directions below to access the portal: 1.Access the email account you provided upon registration to the [facility].2.Look for an invitation email from [facility].3.Open the email and access the invitation link: Accept Invitation to [facility]4.Fill in the required ortega to create your account. Sign into [email or web address] with your username and password that you [...] you will allow to register on the [facility] Patient Portal for access to your information. You can also access the [facility] Patient Portal on the [employer]. Simply click on Health Records under [employer] and then click on the [employer] logo. [...] Call your local pharmacy or go to http://bit.ly/3A3Vc6c to find one close to you.3.Make use of household items: Use cat litter or old coffee grounds to dispose medications if other options arenot available. Mix your drugs with these household products, seal them in an airtight container andthrow it into the garbage. Call [facility]: [phone] to be sure your drugs can be [...] aware that I should contact my doctor. Patient/Principal Network Engineer Signature: Date/Time: Relationship to Patient: Witness Name/Signature: Date/Time: [facility]csq[facility]ivk11-[facility]-6275 Note ORIGINAL EXAMINATION: CT OF THE ABDOMEN [...] ABDOMEN PAIN, BLODDY BOWEL MOVEMENT TODAY abdominal [id number]^ FINDINGS: Lung bases/lower mediastinum: There is subpleural [...] 02/20/2023 10:06:38 PM Ordering Provider: JEFFERY WILLSON [id number] Note ORIGINAL EXAMINATION: CT OF THE ABDOMEN [...] ABDOMEN PAIN, BLODDY BOWEL MOVEMENT TODAY abdominal [id number]^ FINDINGS: Lung bases/lower mediastinum: There is subpleural [...] Date: 02/20/2023 10:06:38 PM Ordering Provider: JEFFERY WILLSONWood County [id number] Hospital Discharge instructions Patient Education 02/01/2023 12:31:[address] -[facility] Discharge Instructions Template (06/2018) (CUSTOM) GRZEGORZ [...] us better serve our patients. Form: 1522 (63519) R: 12/1202/01/2023 12:29:06 1-[facility] URO Prostate Biopsy (06/2022)(CUSTOM) PROSTATE BIOPSY [...] Up Care 12/02/2022 16:08:47 With:EZEKIEL BURRIS MD, [facility] Address: [address] [place] [phone] When: Unknown [facility] 05-30-2023 Summary of episode note Discharge Instructions Thank you for allowing [facility] to assist you with your healthcare needs. The following is importantdischarge information regarding your hospital visit. Your Care Team JAKI FLEMING DO What to do next Scheduled Follow-Up Appointments Appointment Type When With Where Contact InformationURO OV Talk 02/14/2023 11:00 AM EDT EZEKIEL BRURIS MD [facility] URO OV 20 min 05/19/2023 10:20 AM EDANURADHA YI DIETARY COOK-TEMPLE MARKER [facility] CV OV 08/25/2023 11:00 AM CHARMAINE DENIS APRN-TEMPLE MARKER [facility] Follow Up Appointments Follow Up with EZEKIEL BURRIS MD, [facility] When Where: [address] [place] [phone] Allergies NKA Medications Please ask your primary [...] us better serve our patients. Form: 1522 (03855) R: 12/12 PROSTATE BIOPSY DESCRIPTION OF PROSTATE [...] to receive it can visit one of [facility] vaccine clinics. There are many vaccine clinic locations within the [facility]. For locations and available times, please visit [email or web address] It is important to note that some COVID mobile vaccine clinics are held outdoors and may be canceled in rainy or stormy conditions. To learn more about pediatric vaccinations (ages 5-11), we invite you to visit the [facility] webpage. [email or web address]://[email or web address]/[email or web address] [email or web address] learn more about the COVID-19 vaccine, we invite you to visit the CDC website for a list of frequently asked questions.https://www.cdc.gov/coronavirus/2019-ncov/vaccines/faq.html [employer] Patient Portal Access Instructions: Stay connected with your healthcare team and access your personal medical information anytime with the [employer] Patient Portal. Please follow the directions below to create your [employer] account: 1.Access the email account you provided upon registration to the hospital/physician office.2.Look for an invitation email from [facility].3.Open the email and access the invitation link: AcceptInvitation to [employer].4.Fill in the required ortega to create your account. To access your account, visit Rithmio/Hochy etoscar. Click the blue button labeled Access Patient [...] who you will allowto register on the [facility] for access to your information. You can also access the [facility] on the [facility] jyoti. Simply click on Patient Portal and then log into your account. If you would like to receive a full copy of your medical records, please contact the [facility] Medical Records Department by calling [phone], Tuesday through Tuesday between 8 a.m. and [...] Call your local pharmacy or go to [email or web address] to find one close to you.3.Make use of household items: Use cat litter or old coffee grounds to dispose medications if other options arenot available. Mix your drugs with these household products, seal them in an airtight container andthrow it into the garbage. Call [facility]: [phone] to be sure your drugs can be [...] aware that I should contact my doctor. 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 / Confirmed Diabetes / SNOMED CT 003503642 / Confirmed Elevated PSA / SNOMED CT 8620440345 / Confirmed Family history of prostate cancer / SNOMED CT 3267395177 / Confirmed GERD - Gastro-esophageal reflux disease / SNOMED CT 4758733157 / Confirmed History of urinary retention / SNOMED CT 676031949 / Confirmed Hernia, internal / SNOMED CT 58736432 / Confirmed Nocturia / SNOMED CT 461628724 / Confirmed BPH associated with nocturia / SNOMED CT 0193998627 / Confirmed Renal insufficiency, mild / SNOMED CT 6154363709 / Confirmed Screening PSA (prostate specific antigen) / SNOMED CT 765284417 / Confirmed Synovial cyst / SNOMED CT 755104000 / Confirmed Non-Insulin Dependent Diabetes Mellitus / SNOMED CT 033813907 / Confirmed, Active Problems (37) Age-related macular degeneration Anxiety Arthritis Borderline low oxygen saturation level 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 History of UTI (1972561498): Resolved. Comments: - 09/2017 - [facility] Family History: Diabetes mellitus Mother Asthma Brother Heart disease Mother Father Stroke Mother Heart attack Son () Arthritis 28-MAY-2014 16:49:04<$> Son Prostate cancer 03-Mar-2016 02:35:22<$> Brother Procedure history: Heart valve replacement - graft (168271275) in 2012 at 76 Years. CABG (Coronary artery bypass grafting) planned (3124090242) on 09/17/2012 at 77 Years. Carpal tunnel release (655549488). Comments: 01/19/2023 9:31 LAVERN Kennedy right Hiatus hernia repair (822120452). Colonoscopy (921001459). Dupuytren contracture (8704122754). Comments: 01/19/2023 9:32 LAVERN Kennedy right Esophagogastroduodenoscopy (384656991). Social History Social & Psychosocial Habits Alcohol [...] Weight 96.2 kg Weight Lbs 211.6 lb [place] Body Weight 73.00 kg Admission Body Mass [...] Anesthesiologist SN - CAt - Role Performed PREPRESS TECHNICIAN SN - CAt - Role Performed Scrub Technologist SN - CAt - Role Performed Transportation Broker 1 02/01/2023 9:35 EDT SN - Cul [...] Weight 96.2 kg Weight Lbs 211.6 lb [place] Body Weight 73.00 kg Admission Body Mass [...] Method Explanation, Printed materials Preferred Written Language Bangladeshi Preferred Spoken Language Bangladeshi General Infection Prevention Strategies Hand hygiene Surgical [...] Calc 42.90 mL/min . Assessment and Plan [place] Society of Anesthesiologists (ASA) physical status classification: [...] ERIKA BRO MD on 02/01/2023 10:24 AM [facility] + Plan note Future Appointments Appointment Date:07/01/2021 01:45:00 PM Scheduled Provider:MAXIMUS CORONEL JR, MD Location: [place] Appointment Type:GS GEOSPATIAL IMAGERY INTELLIGENCE ANALYST Appointment Date:08/11/2021 11:20:00 AM Scheduled Provider:MARIYA ALVAREZ MD Location:URO CAN Appointment Type:URO OV Future Scheduled Tests Laboratory* Prostate Specific Antigen 08/06/21 [facility] Evaluation + Plan note Future Appointments Appointment Date:09/15/2021 10:10:00 AM Scheduled Provider:MARIYA ALVAREZ MD Location:UROLOGY Appointment Type:URO OV [facility] Evaluation + Plan note Future Appointments Appointment Date:10/26/2022 11:10:00 AM Scheduled Provider:MARIYA ALVAREZ MD Location:UROLOGY Appointment Type:URO OV Future Scheduled Tests Laboratory* Prostate Specific Antigen 10/20/22 [facility] Evaluation + Plan note Future Appointments Appointment Date:10/26/2022 11:10:00 AM Scheduled Provider:MARIYA ALVAREZ MD Location:UROLOGY Appointment Type:URO OV Diagnostic Tests Pending * TIBC 11/05/21 Future Scheduled Tests Laboratory* Prostate Specific Antigen 10/20/22 [facility] Evaluation + Plan note Future Appointments Appointment Date:10/26/2022 11:10:00 AM Scheduled Provider:MARIYA ALVAREZ MD Location:UROLOGY Appointment Type:URO OV Future Scheduled Tests Laboratory* Prostate Specific Antigen 10/20/22 [facility] Evaluation + Plan note Future Appointments Appointment Date:08/19/2022 11:00:00 AM Scheduled Provider:CHARMAINE LO Location:[facility] Appointment Type:CV GEOSPATIAL IMAGERY INTELLIGENCE ANALYST Appointment Date:10/26/2022 11:10:00 AM Scheduled Provider:MARIYA ALVAREZ MD Location:UROLOGY Appointment Type:URO OV Future Scheduled Tests Laboratory* Prostate Specific Antigen 10/20/22 [facility] Evaluation + Plan note Future Appointments Appointment Date:10/26/2022 10:10:00 AM Scheduled Provider:EZEKIEL BURRIS MD Location:UROLOGY Appointment Type:URO OV 20 min Appointment Date:08/25/2023 11:00:00 AM Scheduled Provider:CHARMAINE LO Location:[facility] Appointment Type:CV OV Future Scheduled Tests Laboratory* Prostate Specific Antigen 10/26/22 [facility] Evaluation + Plan note Future Appointments Appointment Date:01/19/2023 11:00:00 AM Scheduled Provider:ANURADHA CHRISTINE Location:UROLOGY Appointment Type:URO OV Physical 20 min Appointment Date:02/01/2023 02:50:00 PM Scheduled Provider: Location:Main [place] Appointment Type:[facility] Appointment Date:02/14/2023 11:00:00 AM Scheduled Provider:EZEKIEL BURRIS MD Location:UROLOGY Appointment Type:URO OV Talk Appointment Date:05/19/2023 10:20:00 AM Scheduled Provider:ANURADHA CHRISTINE Location:UROLOGY Appointment Type:URO OV 20 min Appointment Date:08/25/2023 11:00:00 AM Scheduled Provider:CHARMAINE LO Location:[facility] Appointment Type:CV OV Future Scheduled Tests Laboratory* Basic Metabolic Panel 12/01/22 * Prostate Specific Antigen 05/19/23 * Complete Blood Count 12/01/22 [facility] Evaluation + Plan note Future Appointments Appointment Date:02/14/2023 11:00:00 AM Scheduled Provider:EZEKIEL BURRIS MD Location:UROLOGY Appointment Type:URO OV Talk Appointment Date:05/19/2023 10:20:00 AM Scheduled Provider:ANURADHA CHRISTINE Location:UROLOGY Appointment Type:URO OV 20 min Appointment Date:08/25/2023 11:00:00 AM Scheduled Provider:CHARMAINE LO Location:[facility] Appointment Type:CV OV Future Scheduled Tests Laboratory* Basic Metabolic Panel 12/01/22 * Prostate Specific Antigen 05/19/23 * Complete Blood Count 12/01/22 [facility] evaluation + Plan note Future Appointments Appointment Date:03/28/2023 01:30:00 PM Scheduled Provider:EZEKIEL BURRIS MD Location:UROLOGY Appointment Type:URO OV Appointment Date:05/19/2023 10:20:00 AM Scheduled Provider:ANURADHA CHRISTINE Location:UROLOGY Appointment Type:URO OV 20 min Appointment Date:08/25/2023 11:00:00 AM Scheduled Provider:CHARMAINE LO Location:[facility] Appointment Type:CV OV Future Scheduled Tests Laboratory* Basic Metabolic Panel 12/01/22 * Prostate Specific Antigen 05/19/23 * Complete Blood Count 12/01/22 Radiology* PET/CT PSMA 02/14/23 [facility] Evaluation + Plan note Future Appointments Appointment Date:03/24/2023 11:30:00 AM Scheduled Provider: Location:XRAY Appointment Type:PET/CT PSMA Appointment Date:03/28/2023 11:00:00 AM Scheduled Provider:ANDRES ZAPIEN MD Location:RAD ONC CAN Appointment Type:RO Consult Appointment Date:03/28/2023 01:30:00 PM Scheduled Provider:EZEKIEL BURRIS MD Location:UROLOGY Appointment Type:URO OV Appointment Date:05/19/2023 10:20:00 AM Scheduled Provider:ANURADHA CHRISTINE Location:UROLOGY Appointment Type:URO OV 20 min Appointment Date:08/25/2023 11:00:00 AM Scheduled Provider:CHARMAINE LO Location:[facility] Appointment Type:CV OV Diagnostic Tests Pending * Urine Culture 02/20/23 Future Scheduled Tests Laboratory* Basic Metabolic Panel 12/01/22 * Prostate Specific Antigen 05/19/23 * Complete Blood Count 12/01/22 Radiology* PET/CT PSMA 03/24/23 [facility] evaluation + Plan note Future Appointments [...] Appointment Date:08/25/2023 11:00:00 AM Scheduled Provider:CHARMAINE LO Location:[facility] [place] Appointment Type:CV OV Future Scheduled Tests Laboratory* Basic Metabolic Panel 12/01/22 * Prostate Specific Antigen 05/19/23 * Complete Blood Count 12/01/22 Radiology* PET/CT PSMA 03/24/23 [facility] evaluation + Plan note Future Appointments Appointment Date:03/24/2023 11:30:00 AM Scheduled Provider: Location:XRAY Appointment Type:PET/CT PSMA Appointment Date:03/28/2023 11:00:00 AM Scheduled Provider:ANDRES ZAPIEN MD Location:[facility] Appointment Type:RO Consult Appointment Date:03/28/2023 01:30:00 PM Scheduled Provider:EZEKIEL BURRIS MD Location:UROLOGY Appointment Type:URO OV Appointment Date:05/19/2023 10:20:00 AM Scheduled Provider:ANURADHA CHRISTINE Location:UROLOGY Appointment Type:URO OV 20 min Appointment Date:08/25/2023 11:00:00 AM Scheduled Provider:CHARMAINE LO Location:[facility] [place] Appointment Type:CV OV Future Scheduled Tests Laboratory* Basic Metabolic Panel 12/01/22 * Prostate Specific Antigen 05/19/23 * Complete Blood Count 12/01/22 Radiology* PET/CT PSMA 03/24/23 [facility] Evaluation + Plan note Future Appointments Appointment Date:03/28/2023 11:00:00 AM Scheduled Provider:ANDRES ZAPIEN MD Location:RAD ONC CAN Appointment Type:RO Consult Appointment Date:03/28/2023 01:30:00 PM Scheduled Provider:EZEKIEL BURRIS MD Location:UROLOGY Appointment Type:URO OV Appointment Date:05/19/2023 10:20:00 AM Scheduled Provider:ANURADHA CHRISTINE Location:UROLOGY Appointment Type:URO OV 20 min Appointment Date:08/25/2023 11:00:00 AM Scheduled Provider:CHARMAINE LO Location:[facility] Appointment Type:CV OV Future Scheduled Tests Laboratory* Basic Metabolic Panel 12/01/22 * Prostate Specific Antigen 05/19/23 * Complete Blood Count 12/01/22 [facility] Evaluation + Plan note Future Appointments Appointment Date:05/19/2023 10:20:00 AM Scheduled Provider:ANURADHA CHRISTINE Location:UROLOGY Appointment Type:URO OV 20 min Appointment Date:06/28/2023 11:30:00 AM Scheduled Provider:CLOVER KATZ MD Location:HEM ONC Appointment Type:HEM ONC OV Follow Up Appointment Date:07/08/2023 08:40:00 AM Scheduled Provider:EZEKIEL BURRIS MD Location:UROLOGY Appointment Type:URO OV Appointment Date:08/25/2023 11:00:00 AM Scheduled Provider:CHARMAINE LO Location:[facility] Appointment Type:CV OV Future Scheduled Tests Laboratory* Basic Metabolic Panel 12/01/22 * Lactate Dehydrogenase 06/29/23 * Prostate Specific Antigen 06/28/23 * Prostate Specific Antigen 05/19/23 * Prostate Specific Antigen 06/29/23 * Complete Blood Count 12/01/22 * Complete Blood Count 06/29/23 * Complete Metabolic Panel 06/29/23 [facility] Evaluation + Plan note Future Appointments Appointment Date:06/28/2023 11:30:00 AM Scheduled Provider:CLOVER KATZ MD Location:HEM ONC Appointment Type:HEM ONC OV Follow Up Appointment Date:07/08/2023 08:40:00 AM Scheduled Provider:EZEKIEL BURRIS MD Location:UROLOGY Appointment Type:URO OV Appointment Date:08/25/2023 11:00:00 AM Scheduled Provider:CHARMAINE LO Location:[facility] Appointment Type:CV OV Future Scheduled Tests Laboratory* Basic Metabolic Panel 12/01/22 * Lactate Dehydrogenase 06/29/23 * Prostate Specific Antigen 06/28/23 * Prostate Specific Antigen 05/19/23 * Prostate Specific Antigen 06/29/23 * Complete Blood Count 12/01/22 * Complete Blood Count 06/29/23 * Complete Metabolic Panel 06/29/23 [facility] Evaluation + Plan note Future Appointments Appointment Date:06/28/2023 11:30:00 AM Scheduled Provider:CLOVER KATZ MD Location:HEM ONC Appointment Type:HEM ONC OV Follow Up Appointment Date:07/08/2023 08:40:00 AM Scheduled Provider:EZEKIEL BURRIS MD Location:UROLOGY Appointment Type:URO OV Appointment Date:08/25/2023 11:00:00 AM Scheduled Provider:CHARMAINE LO Location:[facility] [place] Appointment Type:CV OV Future Scheduled Tests Laboratory* Basic Metabolic Panel 12/01/22 * Prostate Specific Antigen 06/28/23 * Prostate Specific Antigen 05/19/23 * Complete Blood Count 12/01/22 [facility] Evaluation + Plan note Future Appointments Appointment Date:08/05/2023 08:30:00 AM Scheduled Provider:BOWEN RAMIREZ PA-C Location:RAD STEPH[facility] CAN Appointment Type:RO Follow Up 30 Appointment Date:08/25/2023 11:00:00 AM Scheduled Provider:CHARMAINE LO Location:[facility] Appointment Type:CV OV Appointment Date:10/14/2023 10:10:00 [...] Count 10/17/23 * Complete Metabolic Panel 10/17/23 [facility] Evaluation + Plan note Future Appointments Appointment Date:08/25/2023 11:00:00 AM Scheduled Provider:CHARMAINE LO Location:[facility] Appointment Type:CV OV Appointment Date:09/16/2023 09:30:00 [...] Count 10/17/23 * Complete Metabolic Panel 10/17/23 [facility] Evaluation + Plan note Future Appointments Appointment [...] Count 10/17/23 * Complete Metabolic Panel 10/17/23 [facility] Evaluation + Plan note Future Appointments Appointment Date:09/14/2023 10:00:00 AM Scheduled Provider:CHARMAINE LO Location:[facility] Appointment Type:CV OV Appointment Date:09/16/2023 [...] Count 10/17/23 * Complete Metabolic Panel 10/17/23 [facility] Evaluation + Plan note Future Appointments Appointment [...] Appointment Date:11/03/2023 10:00:00 AM Scheduled Provider:CHARMAINE LO Location:[facility] Appointment Type:CV OV Future Scheduled Tests Laboratory* Basic Metabolic Panel 12/01/22 * Prostate Specific Antigen 10/08/23 * Prostate Specific Antigen 10/17/23 * Prostate Specific Antigen 06/28/23 * Prostate Specific Antigen 05/19/23 * Complete Blood Count 12/01/22 * Complete Blood Count 10/17/23 * Complete Metabolic Panel 10/17/23 Radiology* NM Myocardial Spect Rest/Stress 09/21/23 [facility] Evaluation + Plan note Future Appointments Appointment [...] Appointment Date:11/03/2023 10:00:00 AM Scheduled Provider:CHARMAINE LO Location:[facility] Appointment Type:CV OV Future Scheduled Tests Laboratory* Basic Metabolic Panel 12/01/22 * Basic Metabolic Panel 09/28/23 * Prostate Specific Antigen 10/08/23 * Prostate Specific Antigen 10/17/23 * Prostate Specific Antigen 06/28/23 * Prostate Specific Antigen 05/19/23 * Complete Blood Count 12/01/22 * Complete Blood Count 10/17/23 * Complete Blood Count 09/28/23 * Complete Metabolic Panel 10/17/23 Radiology* NM Myocardial Spect Rest/Stress 09/21/23 [facility] Evaluation + Plan note Future Appointments [...] Appointment Date:11/03/2023 10:00:00 AM Scheduled Provider:CHARMAINE LO Location:[facility] Appointment Type:CV OV Appointment Date:11/03/2023 02:20:00 PM Scheduled Provider: Location:[facility] [place] Appointment Type:Surgery - [facility] Future Scheduled Tests Laboratory* Basic Metabolic Panel 12/01/22 * Basic Metabolic Panel 09/28/23 * Prostate Specific Antigen 10/08/23 * Prostate Specific Antigen 06/28/23 * Prostate Specific Antigen 05/19/23 * Complete Blood Count 12/01/22 * Complete Blood Count 09/28/23 Radiology* NM Myocardial Spect Rest/Stress 09/21/23 [facility] Evaluation + Plan note Future Appointments Appointment Date:11/03/2023 10:00:00 AM Scheduled Provider:CHARMAINE LO Location:[facility] Appointment Type:CV OV Appointment Date:11/03/2023 03:45:00 PM Scheduled Provider: Location:[facility] [place] Appointment Type:Surgery [facility] Urology Appointment Date:04/17/2024 09:45:00 AM Scheduled [...] 04/17/24 Radiology* NM Myocardial Spect Rest/Stress 09/21/23 [facility] Evaluation + Plan note Future Appointments Appointment Date:11/03/2023 10:00:00 AM Scheduled Provider:CHARMAINE LO Location:[facility] Appointment Type:CV OV Appointment Date:11/03/2023 03:45:00 PM Scheduled Provider: Location:[facility] [place] Appointment Type:Surgery [facility] Urology Appointment Date:04/17/2024 09:45:00 AM Scheduled [...] 04/17/24 Radiology* NM Myocardial Spect Rest/Stress 09/21/23 [facility] Evaluation + Plan note Future Appointments Appointment Date:11/04/2023 09:30:00 AM Scheduled Provider:KYAW LUCIANO Location:UROLOGY Appointment Type:URO OV Appointment Date:11/14/2023 10:15:00 AM Scheduled Provider:CHARMAINE LO Location:[facility] Appointment Type:CV OV Appointment Date:04/17/2024 09:45:00 [...] 04/17/24 Radiology* NM Myocardial Spect Rest/Stress 09/21/23 [facility] Evaluation + Plan note Future Appointments Appointment Date:11/14/2023 10:15:00 AM Scheduled Provider:CHARMAINE LO Location:[facility] Appointment Type:CV OV Appointment Date:04/17/2024 09:45:00 [...] Rest/Stress 09/21/23 * XR Abdomen AP 11/25/23 [facility] Evaluation + Plan note Future Appointments Appointment Date:11/21/2023 08:00:00 AM Scheduled Provider: Location:RAD Appointment Type:NM Myocardial Spect Rest/Stress Alondra Appointment Date:11/23/2023 10:40:00 AM Scheduled Provider:EZEKIEL BURRIS MD Location:UROLOGY Appointment Type:URO Off Proc Cysto w/ Foreign Body Remov Appointment Date:02/23/2024 09:30:00 AM Scheduled Provider:CHARMAINE LO [facility] Appoint[facility] Type:CV OV Appointment Date:04/17/2024 [...] 11/21/23 * NM Myocardial Spect Rest/Stress 09/21/23 [facility] Evaluation + Plan note Future Appointments Appointment Date:11/23/2023 10:40:00 AM Scheduled Provider:EZEKIEL BURRIS MD Location:UROLOGY Appointment Type:URO Off Proc Cysto w/ Foreign Body Remov Appointment Date:02/23/2024 09:30:00 AM Scheduled Provider:CHARMAINE LO Location:[facility] Appointment Type:CV OV Appointment Date:04/17/2024 09:45:00 [...] 04/17/24 Radiology* NM Myocardial Spect Rest/Stress 09/21/23 [facility] Evaluation + Plan note Future Appointments Appointment Date:02/23/2024 09:30:00 AM Scheduled Provider:CHARMAINE LO Location:[facility] Appointment Type:CV OV Appointment Date:04/17/2024 [...] 04/17/24 Radiology* NM Myocardial Spect Rest/Stress 09/21/23 [facility] Evaluation + Plan note Future Appointments Appointment Date:02/21/2024 09:30:00 AM Scheduled Provider:CHARMAINE LO [facility] Appointment Type:CV OV Appointment Date:04/17/2024 [...] 04/17/24 Radiology* NM Myocardial Spect Rest/Stress 09/21/23 [facility] Evaluation + Plan note Future Appointments Appointment [...] Appointment Date:11/03/2023 10:00:00 AM Scheduled Provider:CHARMAINE LO Location:[facility] Appointment Type:CV OV Diagnostic Tests Pending * Urine Culture 09/20/23 Future Scheduled Tests Laboratory* Basic Metabolic Panel 12/01/22 * Prostate Specific Antigen 10/08/23 * Prostate Specific Antigen 10/17/23 * Prostate Specific Antigen 06/28/23 * Prostate Specific Antigen 05/19/23 * Complete Blood Count 12/01/22 * Complete Blood Count 10/17/23 * Complete Metabolic Panel 10/17/23 Radiology* NM Myocardial Spect Rest/Stress 09/21/23 [facility] Evaluation + Plan note Future Appointments Appointment [...] Appointment Date:05/24/2024 09:00:00 AM Scheduled Provider:CHARMAINE LO Location:[facility] Appointment Type:CV OV Future Scheduled Tests Laboratory* Lactate Dehydrogenase 04/17/24 * Prostate Specific Antigen 10/08/23 * Prostate Specific Antigen 06/28/23 * Prostate Specific Antigen 05/19/23 * Prostate Specific Antigen 04/17/24 * Complete Blood Count 04/17/24 * Complete Metabolic Panel 04/17/24 * N-Terminal proBNP 02/21/24 Radiology* NM Myocardial Spect Rest/Stress 09/21/23 [facility] Evaluation + Plan note Future Appointments Appointment Date:04/17/2024 09:45:00 AM Scheduled Provider: Location:INF Appointment Type:INF Labwork Appointment Date:04/17/2024 10:30:00 AM Scheduled Provider:CLOVER KATZ MD Location:[facility] Appointment Type:HEM ONC OV Follow Up w/Active Treatment Appointment Date:04/17/2024 11:00:00 AM Scheduled Provider: Location:INF Appointment Type:INF Chemo: Infusion Injection 15 min Appointment Date:05/24/2024 09:00:00 AM Scheduled Provider:CHARMAINE LO Location:[facility] Appointment Type:CV OV Future Scheduled Tests Laboratory* Lactate Dehydrogenase 04/17/24 * Prostate Specific Antigen 10/08/23 * Prostate Specific Antigen 06/28/23 * Prostate Specific Antigen 05/19/23 * Prostate Specific Antigen 04/17/24 * Complete Blood Count 04/17/24 * Complete Metabolic Panel 04/17/24 * N-Terminal proBNP 02/21/24 Radiology* NM Myocardial Spect Rest/Stress 09/21/23 [facility] Evaluation + Plan note Future Appointments Appointment Date:03/13/2024 09:00:00 AM Scheduled Provider: Location:RAD Appointment Type:[facility] - Duplex Scan Aorta/Iliacs Comple Appointment Date:04/17/2024 09:45:00 AM Scheduled Provider: Location:INF Appointment Type:INF Labwork Appointment Date:04/17/2024 10:30:00 AM Scheduled Provider:CLOVER KATZ MD Location:[facility]C Appointment Type:HEM ONC OV Follow Up w/Active Treatment Appointment Date:04/17/2024 11:00:00 AM Scheduled Provider: Location:INF Appointment Type:INF Chemo: Infusion Injection 15 min Appointment Date:05/24/2024 09:00:00 AM Scheduled Provider:CHARMAINE LO Location:[facility] Appointment Type:CV OV Future Scheduled Tests Laboratory* Lactate Dehydrogenase 04/17/24 * Prostate Specific Antigen 10/08/23 * Prostate Specific Antigen 06/28/23 * Prostate Specific Antigen 05/19/23 * Prostate Specific Antigen 04/17/24 * Complete Blood Count 04/17/24 * Complete Metabolic Panel 04/17/24 * N-Terminal proBNP 02/21/24 Radiology* NM Myocardial Spect Rest/Stress 09/21/23 [facility] Evaluation + Plan note Future Appointments Appointment Date:05/24/2024 09:00:00 AM Scheduled Provider:CHARMAINE LO Location:[facility] Appointment Type:CV OV Appointment Date:07/17/2024 09:00:00 [...] 02/21/24 Radiology* NM Myocardial Spect Rest/Stress 09/21/23 [facility] evaluation + Plan note Future Appointments Appointment Date:07/17/2024 09:00:00 AM Scheduled Provider:KAYLIE MEJÍA Location:UROLOGY Appointment Type:URO OV Appointment Date:12/11/2024 10:30:00 AM Scheduled Provider:CHARMAINE LO Location:[facility] Appointment Type:CV OV Future Scheduled Tests Laboratory* Lactate Dehydrogenase 04/17/24 * Prostate Specific Antigen 2 * Prostate Specific Antigen 06/28/23 * Prostate Specific Antigen 05/19/23 * Prostate Specific Antigen 07/20/24 * Prostate Specific Antigen 04/17/24 * Complete Blood Count 04/17/24 * Complete Metabolic Panel 04/17/24 * N-Terminal proBNP 02/21/24 Radiology* NM Myocardial Spect Rest/Stress 09/21/23 [facility] Evaluation + Plan note Future Appointments Appointment Date:07/20/2024 01:50:00 PM Scheduled Provider:EZEKIEL BURRIS MD Location:UROLOGY Appointment Type:URO OV Appointment Date:12/11/2024 10:30:00 AM Scheduled Provider:CHARMAINE LO Location:[facility] Appointment Type:CV OV Future Scheduled Tests Laboratory* Lactate Dehydrogenase 04/17/24 * Prostate Specific Antigen 2324 * Prostate Specific Antigen 06/28/23 * Prostate Specific Antigen 04/17/24 * Complete Blood Count 04/17/24 * Complete Metabolic Panel 04/17/24 * N-Terminal proBNP 02/21/24 Radiology* NM Myocardial Spect Rest/Stress 09/21/23 [facility] Evaluation + Plan note Future Appointments Appointment Date:08/17/2024 10:00:00 AM Scheduled Provider: Location:RAD Appointment Type:VL - Venous US/Doppler One Leg (for DVT) Appointment Date:12/11/2024 10:30:00 AM Scheduled Provider:CHARMAINE LO Location:[facility] Appointment Type:CV OV Appointment Date:01/21/2025 01:50:00 PM Scheduled Provider:EZEKIEL BURRIS MD Location:UROLOGY Appointment Type:URO OV Future Scheduled Tests Laboratory* Lactate Dehydrogenase 04/17/24 * Prostate Specific Antigen 2 * Prostate Specific Antigen 04/17/24 * Prostate Specific Antigen 01/17/25 * Complete Blood Count 04/17/24 * Complete Metabolic Panel 04/17/24 * N-Terminal proBNP 02/21/24 Radiology* NM Myocardial Spect Rest/Stress 09/21/23 [facility] Evaluation + Plan note Future Appointments Appointment Date:12/11/2024 10:30:00 AM Scheduled Provider:CHARMAINE LO Location:[facility] Appointment Type:CV OV Appointment Date:01/21/2025 01:50:00 PM Scheduled Provider:EZEKIEL BURRIS MD Location:UROLOGY Appointment Type:URO OV Future Scheduled Tests Laboratory* Lactate Dehydrogenase 04/17/24 * Prostate Specific Antigen 23 * Prostate Specific Antigen 04/17/24 * Prostate Specific Antigen 01/17/25 * Complete Blood Count 04/17/24 * Complete Metabolic Panel 04/17/24 * N-Terminal proBNP 02/21/24 Radiology* NM Myocardial Spect Rest/Stress 09/21/23 [facility] Evaluation + Plan note Future Appointments Appointment Date:10/17/2024 08:00:00 AM Scheduled Provider: Location:Echo Appointment Type:CV EL w/o Anesthesia Appointment Date:12/11/2024 10:30:00 AM Scheduled Provider:CHARMAINE LO Location:[facility] Appointment Type:CV OV Appointment Date:01/21/2025 01:50:00 PM Scheduled Provider:EZEKIEL BURRIS MD Location:UROLOGY Appointment Type:URO OV Diagnostic Tests Pending * Lyme Disease Serology w/Reflex 10/03/24 Future Scheduled Tests Laboratory* Lactate Dehydrogenase 04/17/24 * Prostate Specific Antigen 23 * Prostate Specific Antigen 04/17/24 * Prostate Specific Antigen 01/17/25 * Complete Blood Count 04/17/24 * Complete Metabolic Panel 04/17/24 * N-Terminal proBNP 02/21/24 [facility] Evaluation + Plan note Future Appointments Appointment Date:12/11/2024 10:30:00 AM Scheduled Provider:CHARMAINE LO Location:[facility] Appointment Type:CV OV Appointment Date:01/21/2025 01:50:00 PM Scheduled Provider:EZEKIEL BURRIS MD Location:UROLOGY Appointment Type:URO OV Future Scheduled Tests Laboratory* Lactate Dehydrogenase 04/17/24 * Prostate Specific Antigen 2 * Prostate Specific Antigen 04/17/24 * Prostate Specific Antigen 01/17/25 * Complete Blood Count 04/17/24 * Complete Metabolic Panel 04/17/24 * N-Terminal proBNP 02/21/24 [facility] Evaluation + Plan note Future Appointments Appointment Date:12/11/2024 10:30:00 AM Scheduled Provider:CHARMAINE LO Location:[facility] Appointment Type:CV OV Appointment Date:01/21/2025 01:50:00 PM Scheduled Provider:EZEKIEL BURRIS MD Location:UROLOGY Appointment Type:URO OV Future Scheduled Tests Laboratory* Lactate Dehydrogenase 04/17/24 * Prostate Specific Antigen 04/17/24 * Prostate Specific Antigen 01/17/25 * Complete Blood Count 04/17/24 * Complete Metabolic Panel 04/17/24 * N-Terminal proBNP 02/21/24 [facility] Evaluation + Plan note Future Appointments Appointment Date:02/20/2025 02:40:00 PM Scheduled Provider:KAYLIE MEJÍA Location:UROLOGY Appointment Type:URO OV Appointment Date:06/20/2025 10:00:00 AM Scheduled Provider:CHARMAINE LO Location:[facility] Appointment Type:CV OV Future Scheduled Tests Laboratory* Lactate Dehydrogenase 04/17/24 * Prostate Specific Antigen 04/17/24 * Complete Blood Count 04/17/24 * Complete Metabolic Panel 04/17/24 * N-Terminal proBNP 02/21/24 [facility] Evaluation + Plan note Future Appointments Appointment Date:06/20/2025 10:00:00 AM Scheduled Provider:CHARMAINE LO Location:[facility] Appointment Type:CV OV Appointment Date:08/26/2025 01:10:00 PM Scheduled Provider:RUBINA CEE MD Location:UROLOGY Appointment Type:URO OV Future Scheduled Tests Laboratory* Lactate Dehydrogenase 04/17/24 * Prostate Specific Antigen 08/22/25 * Prostate Specific Antigen 04/17/24 * Complete Blood Count 04/17/24 * Complete Metabolic Panel 04/17/24 [facility] Evaluation + Plan note Future Appointments Appointment Date:08/26/2025 01:10:00 PM Scheduled Provider:RUBINA CEE MD Location:UROLOGY Appointment Type:URO OV Appointment Date:12/19/2025 10:00:00 AM Scheduled Provider:CHARMAINE LO Location:[facility] Appointment Type:CV OV Future Scheduled Tests Laboratory* Prostate Specific Antigen 08/22/25 [facility] Evaluation note* Diagnosis Multiple open wounds- Primary Open wound(s) (multiple) of unspecified site(s), without mention of complication Cellulitis of left buttock Cellulitis and abscess of buttock [facility]* Diagnosis Injury of left upper arm, initial encounter- Primary Biceps tendonitis on left Bicipital tenosynovitis Injury of left upper arm, initial encounter documented in this encounter [facility] note* Diagnosis Injury of left upper arm, initial encounter documented in this encounter [facility] note* Diagnosis Anemia, unspecified type- Primary Other pancytopenia (HCC) Other pancytopenia documented in this encounter [facility] note* Diagnosis Anemia, unspecified type- Primary documented in this encounter [facility] noteNo assessment information availableWCrystal [facility] Work Phone: Evaluation note* Diagnosis Anemia, unspecified type- Primary documented in this encounter [facility] course Narrative No data available for this section [facility] Hospital Discharge instructions No data available for this section [facility] Progress note No data available for this section [facility] Reason for referral (narrative)No reason for referral information availableWCrystal Clinic [facility] Work Phone: Reason for visit Narrative* Diagnostic Procedure Only (Routine) - Closed Specialty Diagnoses / Procedures Referred By Contac t Referred To Contact XR IMAGING Diagnoses Injury of left upper arm, initial encounter Procedures XR HUMERUS 2V AP/LAT LEFT RADEX HUMERUS MINIMUM 2 VIEWS 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, DIETARY COOK.TEMPLE MARKER [address] [place] [address] Phone: tel: fax: XR IMAGING [place] [address] Referral ID Status Reason Start Date Expiration Date V isits Requested Visits Authorized [id number] Closed Auto-Generate d Referral 11/29/2024 12/29/2025 1 1 [facility] note* Elsa Herrera: PERFORM Event Display: Patient Summary Documents Authored Date: [facility] [employer] note* Elsa Herrera: PERFORM Event Display: Patient Summary Documents Authored Date: [facility] Summary Purpose Family History No Family [...] FoundDocuments on File Type Date Recorded 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 Advance Directive(s) 02/22/2025 3:18 PM Additional Source Comments (unrecognized sect ion and content) No Status Records FoundNo Status Records FoundNo Status Records FoundNo Status Records FoundNo Status Records FoundNo Status Records FoundNo Status Records FoundNo Status Records Found INFORMATION SOURCE (unrecogn ized section and content) DATE CREATED AUTHOR 02/27/2018 [facility] [place] DATE CREATED AUTHOR AUTHOR'S ORGANIZ ATION 03/01/2018 [facility] DATE CREATED AUTHOR AUTHOR'S ORGANIZ ATION 04/25/2024 [facility] DATE CREATED AUTHOR AUTHOR'S ORGANIZ ATION 11/30/2024 [facility] DATE CREATED AUTHOR AUTHOR'S ORGANIZ ATION 03/22/2025 [facility] DATE CREATED AUTHOR AUTHOR'S ORGANIZ ATION 05/10/2025 [facility] DATE CREATED AUTHOR AUTHOR'S ORGANIZ ATION 06/29/2025 [facility] DATE CREATED AUTHOR AUTHOR'S ORGANIZ ATION 07/12/2025 [facility] Source Comments (unrecognize d section and content) In the event this informatio n is protected by the Federal Confidentiality of Alcohol and Drug Abuse Patient Records regulations: The Federal rules restrict any use of the information to criminally investigate or prosecute any alcohol or drug abuse patient.[facility] the event this information is protected by the Federal Confidentiality of Alcohol and Drug Abuse Patient Records regulations: The Federal rules restrict any use of the information to criminally investigate or prosecute any alcohol or drug abuse patient.[facility] HospitalIn the event this information is protected by the Federal Confidentiality of Alcohol and Drug Abuse Patient Records regulations: The Federal rules restrict any use of the information to criminally investigate or prosecute any alcohol or drug abuse patient.[facility] HospitalIn the event this information is protected by the Federal Confidentiality of Alcohol and Drug Abuse Patient Records regulations: The Federal rules restrict any use of the information to criminally investigate or prosecute any alcohol or drug abuse patient.[facility] Hospital[facility] the event this information is protected by the Federal Confidentiality of Alcohol and Drug Abuse Patient Records regulations: The Federal rules restrict any use of the information to criminally investigate or prosecute any alcohol or drug abuse patient.[facility] Hospital[facility] the event this information is protected by the Federal Confidentiality of Alcohol and Drug Abuse Patient Records regulations: The Federal rules restrict any use of the information to criminally investigate or prosecute any alcohol or drug abuse patient.[facility] Hospital[facility] the event this information is protected by the Federal Confidentiality of Alcohol and Drug Abuse Patient Records regulations: The Federal rules restrict any use of the information to criminally investigate or prosecute any alcohol or drug abuse patient.[facility] Hospital[facility] the event this information is protected by the Federal Confidentiality of Alcohol and Drug Abuse Patient Records regulations: The Federal rules restrict any use of the information to criminally investigate or prosecute any alcohol or drug abuse patient.[facility] HospitalIn the event this information is protected by the Federal Confidentiality of Alcohol and Drug Abuse Patient Records regulations: The Federal rules restrict any use of the information to criminally investigate or prosecute any alcohol or drug abuse patient.[facility] Hospital[facility] the event this information is protected by the Federal Confidentiality of Alcohol and Drug Abuse Patient Records regulations: The Federal rules restrict any use of the information to criminally investigate or prosecute any alcohol or drug abuse patient.[facility] HospitalIn the event this information is protected by the Federal Confidentiality of Alcohol and Drug Abuse Patient Records regulations: The Federal rules restrict any use of the information to criminally investigate or prosecute any alcohol or drug abuse patient.[facility] HospitalIn the event this information is protected by the Federal Confidentiality of Alcohol and Drug Abuse Patient Records regulations: The Federal rules restrict any use of the information to criminally investigate or prosecute any alcohol or drug abuse patient.[facility] HospitalIn the event this information is protected by the Federal Confidentiality of Alcohol and Drug Abuse Patient Records regulations: The Federal rules restrict any use of the information to criminally investigate or prosecute any alcohol or drug abuse patient.[facility] HospitalIn the event this information is protected by the Federal Confidentiality of Alcohol and Drug Abuse Patient Records regulations: The Federal rules restrict any use of the information to criminally investigate or prosecute any alcohol or drug abuse patient.[facility] Care Team (unrecognized sect ion and content) 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 Relationship Specialty Start Date End Date Jaki Fleming DO PCP - General Internal Medicine 10/26/10 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 Relationship Specialty Start Date End Date Jaki Fleming DO PCP - General Internal Medicine 10/26/10 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 Relationship Specialty Start Date End Date Jaki Fleming DO PCP - General Internal Medicine 10/26/10 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 Jaki Fleming DO Family Provider Active Dr. Jaki Fleming DO Primary Care Provider Active Team Status: Inactive Member Role Status Dates Dr. Jaki Fleming DO Primary Care Provider Active Start: February 05, 2025 End: February 05, 2025 Dr. 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 Member Role: Surgeon Address: Address: [address] [place] [address] [address] [place] [address]- [place] Name: JAKI FLEMING DO Position: Physician Med Service: Active Provider Member Role: Primary Care Physician Address: Address: [address] [place] [address]- [place] Name: MARIYA ALVAREZ MD Position: P4 Physician - Urologist Member Role: Urologist Address: Address: [address] [place] [address] [address] [place] [address]- [place] Care Team Related Persons Name: CHRISTIANO GALAVIZ Address: Home [address] [place], [place] [phone] [place] Care Team Personnel Name: MAXIMUS CORONEL JR, MD Position: P4 Physician - General Surgery Med Service: Grecia Anderson M.D. Member Role: Surgeon Address: Address: [address] [place] [address] [address] [place] [id number]- Name: JAKI FLEMING DO Position: Physician Med Service: Active Provider Member Role: Primary Care Physician Address: Address: [address] [place] [address]- [place] Name: MARIYA ALVAREZ MD Position: P4 Physician - Urologist Member Role: Urologist Address: Address: [address] [place] [address] [address] [place] [address]- Care Team Related Persons Name: CHRISTIANO GALAVIZ Address: Home [address] [place], [place] [id number] [place] Care Team Personnel Name: MAXIMUS CORONEL JR, MD Position: P4 Physician - General Surgery Address: Address: [address] [place] [address] [address] [place] [address]- [place] Name: JAKI FLEMING DO Position: Physician Member Role: Primary Care Physician Address: Address: [address] [place] [address]- Name: MARIYA ALVAREZ MD Position: P4 Physician - Urologist Address: Address: [address] [place] [address] [address] [place] [address]- [place] Care Team Related Persons Name: CHRISTIANO GALAVIZ Address: Home [address] [place], [place] [phone] [place] Care Team Personnel Name: MAXIMUS CORONEL JR, MD Position: P4 Physician - General Surgery Med Service: Grecia Anderson M.D. Member Role: Surgeon Address: Address: [address] [place] [address] [address] [place] [id number]- [place] Name: JAKI FLEMING DO Position: Physician Med Service: Active Provider Member Role: Primary Care Physician Address: Address: [address] [place] [address]- [place] Name: MARIYA ALVAREZ MD Position: P4 Physician - Urologist Member Role: Urologist Address: Address: [address] [place] [address] [address] [place] [id number]- Care Team Related Persons Name: CHRISTIANO GALAVIZ Address: Home [address] [place], [place] [phone] [place] Care Team Personnel Name: MAXIMUS CORONEL JR, MD Position: P4 Physician - General Surgery Member Role: Surgeon Address: Address: [address] [place] [address] [address] [place] [id number]- [place] Name: JAKI FLEMING DO Position: Physician Member Role: Primary Care Physician Address: Address: [address] [place] [address]- Name: MARIYA ALVAREZ MD Position: P4 Physician - Urologist Member Role: Urologist Address: Address: [address] [place] [address] [address] [place] [address]- Care Team Related Persons Name: CHRISTIANO GALAVIZ Address: Home [address] [place], [place] [phone] [place] Care Team Personnel Name: MAXIMUS CORONEL JR, MD Position: P4 Physician - General Surgery Member Role: Surgeon Address: Address: [address] [place] [address] [address] [place] [address]- [place] Name: JAKI FLEMING DO Position: Physician Member Role: Primary Care Physician Address: Address: [address] [place] [address]- [place] Name: MARIYA ALVAREZ MD Position: P4 Physician - Urologist Member Role: Urologist Address: Address: [address] [place] [address] [address] [facility] [place] [address]- Care Team Related Persons Name: CHRISTIANO GALAVIZ Address: [address] [address] [facility] [place] [place] [phone] Reason for Visit (unrecogniz ed section and content) Reason Comments Imm/Inj Specialty Diagnoses / Procedures Referred By Contac t Referred To Contact Diagnoses Anemia, unspecified type Stage 3a chronic kidney disease (HCC) Procedures DARBEPOETIN ALVERTO, NON-ESRD Ha Luque MD [address] [place] [address] Phone: tel: Ha Luque MD [address] [place] [address] Phone: tel: Referral ID Status Reason Start Date Expiration Date V isits Requested Visits Authorized [id number] Authorized 01/04/2025 09/04/2025 0 99 Reason Comments [...] BE BASED ON THE PRIMARY CLINICAL RECORDS. [employer] provides no warranty or guarantee of the accuracy or completeness of information in this document.
[2025-08-30 18:03] VITALS: BMI 29.5
[2025-08-30] MEDS: HYDROmorphone 0.5 MG/0.5 ML SYRINGE IV (18:08)
[2025-08-30 18:11] VITALS: BP 145/63; PULSE 67; RESP 15; TEMP 36.7; O2SAT 96
[2025-08-30 18:34] LABS: Anion Gap 6 (7-18); BUN 46 mg/dL (4-19); BUN/Creat Ratio 29.4 RATIO (10-20); Calcium,Total 9.1 mg/dL (7.6-11.0); Carbon Dioxide 24.3 mmol/L (20.0-29.0); Chloride 104 mmol/L (96-106); Estimated Creatinine Clearance 38.48 ml/min (50-250); Glucose 111 mg/dL (70-99); Hematocrit 33.9 % (40-54); Hemoglobin 10.7 g/dL (13.0-16.5); Immature Granulocytes Count 0.030 X10^3/uL (0.0-0.0); Magnesium 2.2 mg/dL (1.5-2.2); Mean Corp Hgb Conc 31.6 g/dL (32-36); Mean Corpuscular Volume 89.9 fL (80-94); Mean Platelet Vol. 10.6 fl (6.2-12.0); NRBC Flagged by Analyzer 0 % (0-5); POSITIVE DIFFERENTIAL YES; Platelet Count 147 K/mm3 (150-450); Potassium 5.5 mmol/L (3.5-5.1); RBC Distribution Width CV 16.1 % (11.6-14.6); RBC Distribution Width SD 52.8 fl (35.1-43.9); Red Blood Count 3.77 M/mm3 (4.6-6.2); White Blood Count 4.2 K/mm3 (4.4-11.0)
[2025-08-30 18:55] VITALS: BP 150/72; PULSE 62; RESP 18; TEMP 36.9; O2SAT 94
[2025-08-30] MEDS: Lidocaine 5% Patch 2 PATCH TOPICAL (20:11)
[2025-08-30] MEDS: APIXABAN 5 MG TABLET PO (20:11)
[2025-08-30] MEDS: 0.9% Normal Saline (1000mL) 1,000 ML 75 ML IV (20:11)
[2025-08-30] MEDS: MethylPREDNISolone DosePak 4 MG BOX PO (22:20)
[2025-08-31 02:36] VITALS: BP 134/65; PULSE 52; RESP 18; TEMP 36.9; O2SAT 98
[2025-08-31 05:47] LABS: Hematocrit 32.0 % (40-54); Hemoglobin 10.1 g/dL (13.0-16.5); Immature Granulocytes Count 0.030 X10^3/uL (0.0-0.0); Mean Corp Hgb Conc 31.6 g/dL (32-36); Mean Corpuscular Volume 90.1 fL (80-94); Mean Platelet Vol. 10.6 fl (6.2-12.0); NRBC Flagged by Analyzer 0 % (0-5); POSITIVE DIFFERENTIAL YES; Platelet Count 129 K/mm3 (150-450); RBC Distribution Width CV 16.0 % (11.6-14.6); RBC Distribution Width SD 53.5 fl (35.1-43.9); Red Blood Count 3.55 M/mm3 (4.6-6.2); White Blood Count 4.5 K/mm3 (4.4-11.0)
[2025-08-31 06:00] VITALS: BMI 29.6
[2025-08-31 06:15] LABS: AST(SGOT) 23 U/L (<=37); Alanine Aminotransfer ALT/SGPT 12 U/L (<=46); Albumin, Serum 3.7 g/dL (3.4-4.8); Alkaline Phosphatase 38 U/L (40-129); Anion Gap 8 (7-18); BUN 48 mg/dL (4-19); BUN/Creat Ratio 31.0 RATIO (10-20); Calcium,Total 8.8 mg/dL (7.6-11.0); Carbon Dioxide 21.5 mmol/L (20.0-29.0); Chloride 105 mmol/L (96-106); Estimated Creatinine Clearance 39.23 ml/min (50-250); Globulin 2.4 g/dL (2.2-4.2); Glucose 149 mg/dL (70-99); Potassium 5.4 mmol/L (3.5-5.1)
[2025-08-31 08:00] VITALS: BP 154/68; PULSE 70; RESP 18; TEMP 36.1; O2SAT 95
[2025-08-31] MEDS: Lidocaine 5% Patch 2 PATCH TOPICAL (08:06)
[2025-08-31] MEDS: MethylPREDNISolone DosePak 4 MG BOX PO ×4 (08:07→22:14)
--- NOTE | 2025-08-31 08:42 | PCM.PN.HOSP ---
Reason for Visit Chief Complaint: back pain Subjective Subjective Patient is an 89-year-old gentleman who was brought to the emergency department with intractable back pain Objective Data Objective Data Vital Signs: Vital Signs Temp Pulse Resp BP Pulse Ox O2 Del Method O2 Flow Rate 97.0 F L 70 18 154/68 H 95 Room Air 2 08/31/25 08:00 08/31/25 08:00 08/31/25 08:00 08/31/25 08:00 08/31/25 08:00 08/31/25 08:00 08/31/25 07:58 Oxygen Flow Rate (L/min) 2 Oxygen Delivery Method Room Air Weight: 96.1 kg Body Mass Index (BMI) 29.6 Intake & Output: Intake and Output for Last 24 Hours 08/29/25 08/30/25 08/31/25 23:59 23:59 23:59 Intake Total 1200 / 1200 Balance 1200 / 1200 Lab / Micro Data 08/31/25 05:26 08/31/25 05:26 Labs: Laboratory Results - last 24 hr 08/30/25 18:01: WBC 4.2 L, RBC 3.77 L, Hgb 10.7 L, Hct 33.9 L, MCV 89.9, MCH 28.4, MCHC 31.6 L, RDW Std Deviation 52.8 H, RDW Coeff of Cristóbal 16.1 H, Plt Count 147 L, MPV 10.6, Immature Gran % (Auto) 0.700, Neut % (Auto) 72.2 H, Lymph % (Auto) 11.2 L, [place] % (Auto) 12.8 H, Eos % (Auto) 2.6, Baso % (Auto) 0.5, Absolute Neuts (auto) 3.0, Absolute Lymphs (auto) 0.47 L, Nucleated RBC % 0, Sodium 135, Potassium 5.5 H, Chloride 104, Carbon Dioxide 24.3, Anion Gap 6 L, BUN 46 H, Creatinine 1.57 H, Estim Creat Clear Calc 38.48 L, Est GFR (MDRD) Non-Af 42 L, BUN/Creatinine Ratio 29.4 H, Glucose 111 H, Calcium 9.1, Magnesium 2.2 08/30/25 22:25: POC Glucose 112 H 08/31/25 05:26: WBC 4.5, RBC 3.55 L, Hgb 10.1 L, Hct 32.0 L, MCV 90.1, MCH 28.5, MCHC 31.6 L, RDW Std Deviation 53.5 H, RDW Coeff of Cristóbal 16.0 H, Plt Count 129 L, MPV 10.6, Immature Gran % (Auto) 0.700, Neut % (Auto) 84.2 H, Lymph % (Auto) 6.3 L, [place] % (Auto) 7.2, Eos % (Auto) 0.9, Baso % (Auto) 0.7, Absolute Neuts (auto) 3.8, Absolute Lymphs (auto) 0.28 L, Nucleated RBC % 0, Sodium 134 L, Potassium 5.4 H, Chloride 105, Carbon Dioxide 21.5, Anion Gap 8, BUN 48 H, Creatinine 1.54 H, Estim Creat Clear Calc 39.23 L, Est GFR (MDRD) Non-Af 43 L, BUN/Creatinine Ratio 31.0 H, Glucose 149 H, Calcium 8.8, Total Bilirubin 0.25, AST 23, ALT 12, Alkaline Phosphatase 38 L, Total Protein 6.1, Albumin 3.7, Globulin 2.4, Albumin/Globulin Ratio 1.5 Radiography Diagnostic Testing: Radiology Impression Lumbar Spine CT 08/30/25 15:29 IMPRESSION: Multilevel degenerate changes predominantly for severe canal stenosis and severe bilateral foramina stenosis at L2-L3 and L3-L4. Severe canal stenosis at L4-L5. Reading Location: [facility] Venous Doppler Study 08/30/25 15:29 Interpretation Summary Deep veins of the left lower extremity are patent and compressible segmentally. There is no evidence of left lower extremity deep vein thrombosis. Valvular competence appears intact within the proximal deep venous system on the left . The left great saphenous vein appears patent and compressible segmentally. The right common femoral vein is patent and compressible . Ordering Physician: Eliot Reyes Referring Physician: Jaki Lin Performed By: Josselin Boyd RVT Hip/Pelvis X-Ray 08/30/25 15:56 IMPRESSION: Mild degenerative osteoarthritic changes are seen involving the right hip and moderate degenerative osteoarthritic changes are seen involving the left hip. Mild degenerative osteoarthritic changes are seen involving the pubic symphysis. Spondylosis of the lower lumbar spine is noted. Reading Location: [facility] Physical Exam Narrative GENERAL: cooperative HEENT: Atraumatic; normocephalic EYES; Anicteric, Normal Conjunctiva NECK; supple, normal thyroid, RESPIRATORY: Diminished to auscultation CARDIOVASCULAR: Regular S1 S2, GI: soft, normoactive bowel sounds, : No Renal angle tenderness; EXTREMITIES: No edema, no clubbing, MUSCULOSKELETAL: no muscle wasting NEURO: Awake; no lateralizing signs. SKIN: No Rash PSYCH; Flat affect Assessment & Plan Assessment/Plan (1) Lumbar degenerative disc disease: PLAN: Plan Patient is an 89-year-old gentleman who was brought to the emergency department with intractable back pain 1. Intractable back pain ? Imaging studies did show Multilevel degenerate changes predominantly for severe canal stenosis and severe bilateral foramina stenosis at L2-L3 and L3-L4. Severe canal stenosis at L4-L5. Patient had apparently failed outpatient treatment. Admitted to regular nursing floor started on steroid anti-inflammatory with Toradol and steroids, gabapentin and lidocaine patches. Also requested for PT OT patient and family will prefer to be [facility] 2. Paroxysmal atrial fibrillation ? Patient is on systemic anticoagulation with apixaban. Continue 3. Valvular heart disease ? With history of aortic valve replacement porcine valve 4. Thrombocytopenia appears to be chronic monitoring with daily CBC with differential 5. Hypertension ? Blood pressure controlled, home medications continued with dose adjustment as needed 6. Hyperkalemia ? Patient potassium 5.4 this morning. secondary to lisinopril as well as patient impaired kidney function lisinopril held repeat potassium levels ordered for a.m. 7. Anemia ? Secondary to chronic disorder monitoring H&H and transfuse if patient becomes symptomatic or hemoglobin falls below 7 8. Chronic kidney disease stage III kidney function at baseline 9. Rheumatoid arthritis ? Patient is on leflunomide 10. Diabetes mellitus type II -patient's oral hypoglycemics held. Placed on long acting insulin, Accu-Cheks a.c. and at bedtime and covered with sliding scale insulin 11. DVT prophylaxis ? Patient already on apixaban Charges/Coding Visit Charges Inpatient E&M: 58012 Subs Hosp L2
[2025-08-31 10:52] VITALS: PULSE 70
[2025-08-31] MEDS: APIXABAN 5 MG TABLET PO ×2 (10:52→22:10)
[2025-08-31] MEDS: Metoprolol(XL)Succ 25 MG Tablet PO (10:52)
[2025-08-31 14:22] VITALS: BP 137/62; PULSE 77; RESP 18; TEMP 36.3; O2SAT 96
[2025-08-31] MEDS: 0.9% Saline Lock 10 ML Syringe IV ×2 (14:28→22:11)
--- NOTE | 2025-08-31 18:22 | CASEMGMT ---
LAVERN CORNELIUS Assessment: Face to Face with pt for initial transition planning/care coordination assessment. LAVERN CORNELIUS introduced self and role at [facility], pt voices understanding and consents to assessment. Pt is A&O x4 and answers all questions appropriately at this time. Care providers, pharmacy, and demographics verified/updated. Strata: 3 Admitting Dx: Intractable Lumbar Back Pain, Radiculopathy PCP: Riley Specialists: Moira, Hematology; Gaurav, Cardiology; Charo, Radiology Oncology; Marlene, Urologoy; Reshma, Arthritis. Preferred Pharmacy: [facility] Insurance: AAR MCR ADV Prescription Benefit: yes LNOK: Latoya, Living Arrangements: Pt lives with in a multi-level home with 3 steps to enter. Pt states not able to navigate steps at this time. ADLs: I at baseline, but has been needing assistance the past week. Transportation: Pt drives self for short distance, family provides transportation for long distances, denies concerns with transportation. DME: CPAP, purchased O2 concentrator - does not get O2 through an agency. Uses 2L HS bled through CPAP. Has a walk in tub, walker, cane. HHC/SNF: Denies Hx of Pt states concerned about going home with the amount of pain he has been having. Pt family on the phone and discussed R/U. Discussed seeing how therapy goes tomorrow for Pt. Also discussed orto consultation, as well as following with pain management going forward. Family intends to talk to hospitalist tomorrow about this. Pt states no further concerns/needs. CM to follow. Advised pt to ask CM if any further question/concerns/needs arise, voices understanding. Pt Goal: TBD Plan: TBD, follow therapy. Carlos PUCKETT CM
[2025-08-31 21:57] VITALS: BP 134/59; PULSE 63; RESP 18; TEMP 36.6; O2SAT 93
[2025-08-31 22:01] VITALS: O2SAT 94
[2025-09-01] VITALS (8 sets, daily range): BP systolic 118–195; BP diastolic 46–79; PULSE 54–61; RESP 18–20; TEMP 36.3–36.5; O2SAT 95–99; BMI 29.6
[2025-09-01] MEDS: Senna/Docusate Sodium 1 Tablet 2 TABLET PO ×3 (04:45→22:45)
[2025-09-01] MEDS: 0.9% Saline Lock 10 ML Syringe IV ×3 (04:52→22:44)
[2025-09-01 07:42] LABS: Hematocrit 33.3 % (40-54); Hemoglobin 10.7 g/dL (13.0-16.5); Immature Granulocytes Count 0.050 X10^3/uL (0.0-0.0); Mean Corp Hgb Conc 32.1 g/dL (32-36); Mean Corpuscular Volume 89.5 fL (80-94); Mean Platelet Vol. 11.0 fl (6.2-12.0); NRBC Flagged by Analyzer 0 % (0-5); POSITIVE DIFFERENTIAL YES; Platelet Count 155 K/mm3 (150-450); RBC Distribution Width CV 16.1 % (11.6-14.6); RBC Distribution Width SD 52.5 fl (35.1-43.9); Red Blood Count 3.72 M/mm3 (4.6-6.2); White Blood Count 3.8 K/mm3 (4.4-11.0)
[2025-09-01] MEDS: MethylPREDNISolone DosePak 4 MG BOX PO ×4 (08:00→22:46)
[2025-09-01] MEDS: Lidocaine 5% Patch 2 PATCH TOPICAL (08:01)
[2025-09-01] MEDS: APIXABAN 5 MG TABLET PO ×2 (08:02→22:45)
[2025-09-01 08:04] LABS: Magnesium 2.3 mg/dL (1.5-2.2)
[2025-09-01 08:07] LABS: Anion Gap 9 (7-18); BUN 53 mg/dL (4-19); BUN/Creat Ratio 33.8 RATIO (10-20); Calcium,Total 9.6 mg/dL (7.6-11.0); Carbon Dioxide 23.6 mmol/L (20.0-29.0); Chloride 104 mmol/L (96-106); Estimated Creatinine Clearance 38.47 ml/min (50-250); Glucose 146 mg/dL (70-99); Potassium 5.7 mmol/L (3.5-5.1)
[2025-09-01] MEDS: Metoprolol(XL)Succ 25 MG Tablet PO (08:16)
--- NOTE | 2025-09-01 14:01 | PN_ITS ---
Subjective Subjective Patient seen and examined. His son was by his bedside. He still complains of the lower back pain. Review of systems otherwise negative. He worked well with therapy and therapy is actually recommending outpatient therapy. However per his son patient usually does well with therapy in the hospital but when he gets home he gets very weak and is unable to care for himself so they have to bring him right back. They therefore want therapy to work with him again today and then case management evaluate him tomorrow. Review of systems otherwise negative. Objective Data Objective Data Vital Signs: Vital Signs Temp Pulse Resp BP Pulse Ox O2 Del Method O2 Flow Rate 97.7 F L 55 L 18 149/59 H 99 Nasal Cannula 2 09/01/25 07:58 09/01/25 08:16 09/01/25 07:58 09/01/25 07:58 09/01/25 07:58 09/01/25 07:58 09/01/25 07:46 Oxygen Flow Rate (L/min) 2 Oxygen Delivery Method Nasal Cannula Weight: 211 lb 13.828 oz Body Mass Index (BMI) 29.6 Intake & Output: Intake and Output for Last 24 Hours 08/30/25 08/31/25 09/01/25 23:59 23:59 23:59 Intake Total 1999 960 / 960 Balance 1999 960 / 960 Lab / Micro Data 09/01/25 06:33 09/01/25 06:33 Labs: Laboratory Results - last 24 hr 08/31/25 06:50: POC Glucose 140 H 08/31/25 16:13: POC Glucose 150 H 08/31/25 22:08: POC Glucose 150 H 09/01/25 06:33: WBC 3.8 L, RBC 3.72 L, Hgb 10.7 L, Hct 33.3 L, MCV 89.5, MCH 28.8, MCHC 32.1, RDW Std Deviation 52.5 H, RDW Coeff of Cristóbal 16.1 H, Plt Count 155, MPV 11.0, Immature Gran % (Auto) 1.300 H, Neut % (Auto) 76.3 H, Lymph % (Auto) 8.9 L, [place] % (Auto) 10.4 H, Eos % (Auto) 2.6, Baso % (Auto) 0.5, Absolute Neuts (auto) 2.9, Absolute Lymphs (auto) 0.34 L, Nucleated RBC % 0, Sodium 137, Potassium 5.7 H, Chloride 104, Carbon Dioxide 23.6, Anion Gap 9, BUN 53 H, Creatinine 1.57 H, Estim Creat Clear Calc 38.47 L, Est GFR (MDRD) Non-Af 42 L, BUN/Creatinine Ratio 33.8 H, Glucose 146 H, Calcium 9.6, Phosphorus 3.4, M agnesium 2.3 H 09/01/25 07:17: POC Glucose 131 H 09/01/25 12:12: POC Glucose 121 H Physical Exam Const alert, oriented x3 and no apparent distress General Appearance: cooperative HEENT normocephalic, head/scalp atraumatic, moist oral mucous membranes and oropharynx normal Eyes EOMs intact bilaterally Neck supple and no JVD Lymph Lymphatic: no lymphedema noted Resp normal respiratory effort, normal air movement and clear to auscultation bilaterally Cardio regular rate, regular rhythm, S1 normal heart sound, S2 normal heart sound and no murmurs GI normal to inspection, nondistended, normoactive bowel sounds, soft to palpation and non-tender Extremity normal capillary refill, no clubbing, cyanosis or edema and no calf tenderness General Extremity: no tenderness to palpation of joints or extremities Skin General Skin Exam: no breakdown Neuro no focal motor deficits and no sensory deficits noted Motor Exam: general weakness Psych thought process normal and cooperative Appearance: appropriate Assessment & Plan Assessment/Plan (1) Lumbar degenerative disc disease: PLAN: Plan #Debility and lower back pain due to degenerative lumbar stenosis * Patient still complains of the lower back pain. He is waiting to work with therapy today. * He worked with therapy yesterday and did well enough for them to recommend that he can go home with outpatient therapy. However according to his family and his son was by his bedside patient usually does well with therapy in the hospital but when he goes home he deteriorates and comes back to the hospital. They therefore want him reevaluated by therapy to see if he would benefit from placement. * fall precautions * # Hyperkalemia: * Potassium is 5.7. Will give Kayexalate and hold any potassium sparing medications. * Potassium was hemolyzed so we will repeat. It has however been elevated for the past 2 days at 5.5 and 5.4 respectively. * #Hypertension: Hold lisinopril. On metoprolol. #Type 2 diabetes mellitus: On glipizide and sitagliptin. Insulin sliding scale. Checks ACHS. #A-fib: On metoprolol and Eliquis. DVT prophylaxis: Already on Eliquis Charges/Coding Visit Charges Inpatient E&M: 73118 Subs Hosp L2
[2025-09-02 00:21] VITALS: BP 147/71; PULSE 60; RESP 18; TEMP 36.4; O2SAT 96
[2025-09-02 05:23] VITALS: BP 172/72; PULSE 66; RESP 18; TEMP 36.4; O2SAT 97
[2025-09-02 05:33] VITALS: BP 172/72; PULSE 66
[2025-09-02] MEDS: Metoprolol(XL)Succ 25 MG Tablet PO (05:33)
[2025-09-02 06:00] VITALS: BMI 28.3
[2025-09-02 06:53] LABS: Anion Gap 8 (7-18); BUN 46 mg/dL (4-19); BUN/Creat Ratio 34.5 RATIO (10-20); Calcium,Total 9.0 mg/dL (7.6-11.0); Carbon Dioxide 25.3 mmol/L (20.0-29.0); Chloride 105 mmol/L (96-106); Estimated Creatinine Clearance 44.11 ml/min (50-250); Glucose 140 mg/dL (70-99); Potassium 4.6 mmol/L (3.5-5.1)
[2025-09-02 06:59] LABS: Hematocrit 32.2 % (40-54); Hemoglobin 10.4 g/dL (13.0-16.5); Immature Granulocytes Count 0.020 X10^3/uL (0.0-0.0); Mean Corp Hgb Conc 32.3 g/dL (32-36); Mean Corpuscular Volume 88.7 fL (80-94); Mean Platelet Vol. 10.6 fl (6.2-12.0); NRBC Flagged by Analyzer 0 % (0-5); POSITIVE DIFFERENTIAL YES; Platelet Count 146 K/mm3 (150-450); RBC Distribution Width CV 16.0 % (11.6-14.6); RBC Distribution Width SD 52.0 fl (35.1-43.9); Red Blood Count 3.63 M/mm3 (4.6-6.2); White Blood Count 3.6 K/mm3 (4.4-11.0)
[2025-09-02 07:40] VITALS: BP 157/70; PULSE 58; RESP 16; TEMP 36.4; O2SAT 100
[2025-09-02] MEDS: Senna/Docusate Sodium 1 Tablet 2 TABLET PO (07:56)
[2025-09-02] MEDS: MethylPREDNISolone DosePak 4 MG BOX PO ×2 (07:56→11:39)
[2025-09-02] MEDS: APIXABAN 5 MG TABLET PO (10:26)
[2025-09-02] MEDS: Lidocaine 5% Patch 2 PATCH TOPICAL (10:26)
--- NOTE | 2025-09-02 11:51 | CASEMGMT ---
Discharge Planning A list of?HH providers including quality and resource use data and consistent with the patient's preferred geographic region, medical needs, and insurance network was created in CarePort Guide.? This list was provided to the RN ADRYAN. Romana Post, Discharge Planning Asst.
--- NOTE | 2025-09-02 12:33 | CASEMGMT ---
Addendum entered by Carissa Chapman 09/02/25 16:25: LAVERN CORNELIUS into pt room, spoke with pt, granddtr and pt son Luca on speakerphone. Pt is aware that HHC will be set up tomorrow as we are awaiting to hear back from agencies with the new insurance number. They are aware of pain mgmt and the appt that could not be made yet. Pt son states pt is established at [facility] and he will make f/u appt there until he hears from . They are not pleased with [facility]. They are requesting more pain meds for pt. Spoke with hospitalist via tc while in room, nurse present as well. She will call in gabapentin for pt and pt to continue zanaflex as well as prednisone as prior. Pt and family agreeable with plan. LAVERN CORNELIUS to call pt son tomorrow regarding HHC. No further questions at this time. Addendum entered by Carissa Chapman 09/02/25 15:37: Spoke with paralegal legal secretary regarding pain mgmt appt. She states that 's office would not set up an appt as pt is not an established pt. She has faxed documentation to them, they will review and reach out to the patient for an appt. Placed this information on the dc instructions. Addendum entered by Carissa Chapman 09/02/25 15:31: TC to pt sonLuca, he states he has his father's upcoming [facility] Demetrice ID# which is [id number]. Updated dc certified medical assistant with information. Addendum entered by Carissa Chapman 09/02/25 14:08: LAVERN CORNELIUS into pt room, pt sitting up in chair, HHC choices are 1. [facility] 2. [facility] 3. [facility] Requested dc certified medical assistant to verify this and send referrals for SN, PT and OT. Original Note: LAVERN CORNELIUS into pt room to discuss dc planning. Pt granddtr present in room. Pt states he feels he did well with therapy. He states his may need to assist his leg into the bed. Pt son was on speakerphone during the whole discussion and pt was agreeable to this. Discussed HHC with pt. Provided pt with a list of options created by dc certified medical assistant. Pt to review with family and RN CM to check back. Pt son states pt will have [facility] Suresh plan at beginning of year. Requested dc certified medical assistant create list to cross reference these in network agencies. Pt son would like list sent to him electronically to his cell at [phone], sent via [employer] at this time. Pt granddtr states that they are worried about pain mgmt for pt. She is aware that per rounds this morning, an appt with pain mgmt will be made. Pt son states he has an appt Sep 25 with [facility] for pt and would like one sooner if possible with Dr. Burgos. He is aware that this appt can be made. Pt son then asks about OP therapy. Discussed the differences between HHC and OP therapy. Pt son states that pt is too painful to do OP. Will plan for HHC. Updated hospitalist on plan. Pt and family deny further needs at this time.
[2025-09-02 14:20] VITALS: BP 143/63; PULSE 68; RESP 16; TEMP 36.5; O2SAT 98
--- NOTE | 2025-09-02 14:24 | CASEMGMT ---
Addendum entered by Romana Post 09/03/25 12:33[facility] 09[facility]07[facility]25. RN CM updated. Addendum entered by Romana Post 09/02/25 14:54: Both [facility] and [facility] declined. Referral sent via [facility] to [facility]. Original Note: Discharge Planning HH referral sent via [facility]Port to [facility] and [facility]. Romana Post DC Planning Asst.
--- NOTE | 2025-09-02 14:43 | DCINST_ITS ---
Discharge Instructions DC O2, CPAP, BIPAP needs Home O2 Discharge instructions: No Dressing / Incision Discharge Activity: Return to Normal Activity Weight Bearing Status: Weight bearing as tolerated Dressing / Incision Call your doctor if you observe: Fever of 101 or Higher, Shortness of breath, Dizziness, Swelling in the ankles, Chest pain and Uncontrolled pain Follow Up Care Test Results: Test results from this visit will be discussed in further detail at your follow- up appointment, if applicable. Discharge Plan Admission Admit Date/Time: 08/30/25 17:29 Primary Reason for Your Visit: lower extremity pain and weakness due to spinal stenosis Attending Provider: Iman Jonas Primary Care Provider: Jaki Lin Consulting Providers: Luna Escoto; Riley Souza Instructions Patient Instructions: Lumbar Spinal Stenosis Discharge Orders/Prescriptions Prescriptions: New oxycodone 5 mg Tablet 5 mg PO Q4H PRN PRN (Reason: Pain Score 4-10) 3 Days Qty: 18 0RF amlodipine 10 mg Tablet 10 mg PO DAILY Qty: 30 1RF lidocaine 5 % Adhesive Patch,Medicated 2 patch topical DAILY Qty: 30 1RF Protocol: *Topical Application Instructions APPLICATION INSTRUCTIONS: lumbar spine Continued prednisone 10 mg tablet 10 mg PO DAILY leflunomide 10 mg tablet 10 mg PO DAILY metoprolol succinate 25 mg tablet extended release 24 hr 25 mg PO DAILY lisinopril 40 mg tablet 40 mg PO DAILY glipizide 5 mg tablet 5 mg PO DAILY Januvia 50 mg tablet 50 mg PO DAILY Eliquis 5 mg tablet 5 mg PO BID acetaminophen [Tylenol Extra Strength] 500 mg tablet 1,000 mg PO Q6H PRN (Reason: pain) ondansetron 4 mg tablet,disintegrating 4 mg PO Q6H PRN (Reason: nausea and vomiting) Qty: 20 0RF Discontinued oxycodone-acetaminophen [Endocet] 5-325 mg tablet 1 tab PO Q6H PRN (Reason: pain) 3 Days Qty: 12 0RF cyclobenzaprine 5 mg tablet 5 mg PO TID PRN (Reason: muscle spasm) Qty: 20 0RF Referrals / Follow Up: [Other, [facility]] - 09/18/25 10:00 am Referral Note: This appointment will be with Dr. Burgos's PWoody Vale MD [Med Staff - Active Staff, Pain Management] - Within 2 Weeks Referral Note: see to establish care for back pain Jaki Lin DO [Primary Care Provider, Internal Medicine] - Within 1 Week Disposition Disposition (needs filled in before D/C Order can be placed): Home Health Service
--- NOTE | 2025-09-02 14:47 | PCM.DC.SUM ---
Providers Date of Admission: 08/30/25 Date of Discharge: 09/02/25 Primary Care Physician: Dr. Jaki Lin DO Reason For Visit: INTRACTABLE LUMBAR BACK PAIN, RADICULOPATHY Diagnosis Discharge Diagnosis (1) Lumbar degenerative disc disease: Status: Acute Code(s): M51.369 - Other intervertebral disc degeneration, lumbar region without mention of lumbar back pain or lower extremity pain Plan #Debility and lower back pain due to degenerative lumbar stenosis Patient still complains of the lower back pain. He is waiting to work with therapy today. He worked with therapy yesterday and did well enough for them to recommend that he can go home with outpatient therapy. However according to his family and his son was by his bedside patient usually does well with therapy in the hospital but when he goes home he deteriorates and comes back to the hospital. They therefore want him reevaluated by therapy to see if he would benefit from placement. fall precautions # Hyperkalemia: Potassium is 5.7. Will give Kayexalate and hold any potassium sparing medications. Potassium was hemolyzed so we will repeat. It has however been elevated for the past 2 days at 5.5 and 5.4 respectively. #Hypertension: Hold lisinopril. On metoprolol. #Type 2 diabetes mellitus: On glipizide and sitagliptin. Insulin sliding scale. Checks ACHS. #A-fib: On metoprolol and Eliquis. DVT prophylaxis: Already on Eliquis Medications at Discharge Home Medications acetaminophen 500 mg tablet (Tylenol Extra Strength) 1,000 mg PO Q6H PRN pain 08/27/25 apixaban 5 mg tablet (Eliquis) 5 mg PO BID for pig valve maybe a-fib 08/27/25 glipizide 5 mg tablet 5 mg PO DAILY blood sugar 08/27/25 leflunomide 10 mg tablet 10 mg PO DAILY arthritis 08/27/25 lisinopril 40 mg tablet 40 mg PO DAILY blood pressure 08/27/25 metoprolol succinate 25 mg tablet,extended release 24 hr 25 mg PO DAILY blood pressure 08/27/25 ondansetron 4 mg disintegrating tablet 4 mg PO Q6H PRN nausea and vomiting #20 tabs 08/27/25 prednisone 10 mg tablet 10 mg PO DAILY back pain 08/27/25 sitagliptin phosphate 50 mg tablet (Januvia) 50 mg PO DAILY blood sugar 08/27/25 amlodipine 10 mg tablet 10 mg PO DAILY #30 tabs 09/02/25 gabapentin 100 mg capsule 100 mg PO TIDCM 30 days #90 caps 09/02/25 lidocaine 5 % topical patch 2 patch topical DAILY #30 ea 09/02/25 oxycodone 5 mg tablet 5 mg PO Q4H PRN PRN Pain Score 4-10 3 days #18 tabs 09/02/25 tizanidine 2 mg tablet 4 mg (2 x 2 mg) PO TID #30 tabs 09/02/25 Hospital Course Operations None Procedures None Summary of Care Provided Minutes Spent on Discharge: 45 Hospital Course: Patient is an 89 year old male with a PMH as outlined was admitted to the ED on 08/30/2025 with complaint of left lower back pain and left hip pain radiating down his left leg and rates the pain at 10 out of 10. He denied any trauma. He had been seen in the urgent care a few days prior for similar complaints and was placed on tizanidine, Tylenol and p.o. prednisone but had no relief so he came back to the ED. His symptoms worsened so he came to the ED where imaging of the lumbar spine showed multilevel degenerative disc disease with severe spinal stenosis at L4-L5 and bilatral foraminal stenosis at L2,3 and 4. 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 He was admitted and managed for debility and pain due to severe lumbar spinal stenosis. He was placed on Flexeril and gabapentin as well as prednisone and morphine as well as oral pain meds. He worked with physical therapy and was able to do well. He was skilled as needing health care. Patient was discharged home with home health care and home versus outpatient physical therapy on 09/02/2025. He was discharged with p.o. Tylenol, p.o. gabapentin and p.o. cyclobenzaprine as well as p.o. oxycodone 5 mg every 6 hours as needed for total of 3 days and 18 tablets. He was also given a lidocaine patch on discharge to apply daily. He was referred to pain management and to orthopedic surgery. He is to follow-up with his primary care doctor within 1 to 2 weeks. Patient seen and examined prior to discharge. His granddaughter was by his bedside. He had no active complaints. Review of systems otherwise negative. Labs and vitals reviewed. Medication reviewed and reconciled. Physical Exam Const alert, oriented x3 and no apparent distress General Appearance: cooperative and comfortable HEENT normocephalic, head/scalp atraumatic, hearing grossly normal bilaterally, moist oral mucous membranes and oropharynx normal Mouth: oral and palatal mucosa normal Eyes PERRL and EOMs intact bilaterally Neck supple and no JVD Lymph Lymphatic: no lymphedema noted Resp normal respiratory effort, normal air movement, no use of accessory muscles and clear to auscultation bilaterally Cardio regular rate, regular rhythm, S1 normal heart sound, S2 normal heart sound and no murmurs Cardio Narrative: 2/6 systolic murmur GI normal to inspection, nondistended, normoactive bowel sounds, soft to palpation and non-tender Palpation: Negative for guarding Extremity normal to inspection, full ROM, normal capillary refill, no clubbing, cyanosis or edema and no calf tenderness General Extremity: no tenderness to palpation of joints or extremities Skin Skin Narrative: no wounds, rash, lesions General Skin Exam: no breakdown Neuro oriented x3, moves all extremities, no focal motor deficits and no sensory deficits noted Sensorium / Orientation: awake and alert Motor Exam: general weakness Psych thought process normal, cooperative and affect normal Appearance: appropriate Weight / BMI Weight Weight: 202 lb 0.9 oz Body Mass Index (BMI) 28.3 ABG / Lab / Microbiology Data 09/02/25 06:12 09/02/25 06:12 Laboratory: Laboratory Results - last 24 hr 09/01/25 16:38: POC Glucose 137 H 09/01/25 22:48: POC Glucose 140 H 09/02/25 06:12: WBC 3.6 L, RBC 3.63 L, Hgb 10.4 L, Hct 32.2 L, MCV 88.7, MCH 28.7, MCHC 32.3, RDW Std Deviation 52.0 H, RDW Coeff of Cristóbal 16.0 H, Plt Count 146 L, MPV 10.6, Immature Gran % (Auto) 0.600, Neut % (Auto) 70.8 H, Lymph % (Auto) 11.5 L, [place] % (Auto) 13.2 H, Eos % (Auto) 3.1, Baso % (Auto) 0.8, Absolute Neuts (auto) 2.5, Absolute Lymphs (auto) 0.41 L, Nucleated RBC % 0, Sodium 138, Potassium 4.6, Chloride 105, Carbon Dioxide 25.3, Anion Gap 8, BUN 46 H, Creatinine 1.34 H, Estim Creat Clear Calc 44.11 L, Est GFR (MDRD) Non-Af 51 L, BUN/Creatinine Ratio 34.5 H, Glucose 140 H, Calcium 9.0 09/02/25 11:23: POC Glucose 119 H D/C Instructions Discharge Activity: Return to Normal Activity Weight Bearing Status: Weight bearing as tolerated Call your doctor if you observe: Fever of 101 or Higher, Shortness of breath, Dizziness, Swelling in the ankles, Chest pain and Uncontrolled pain DC O2, CPAP, BIPAP Needs Home O2 Discharge instructions: No Patient's Goals Of Care - F/U Goals Reviewed Goals of care reviewed with patient: Yes - No change Meaningful Use Info Meaningful Use Meaningful Use Diagnoses (Choose all that apply): None applicable Discharge Plan Admission Admit Date/Time: 08/30/25 17:29 Primary Reason for Your Visit: lower extremity pain and weakness due to spinal stenosis Attending Provider: Iman Jonas Primary Care Provider: Jaki Lin Consulting Providers: Luna Escoto; Riley Souza Instructions Patient Instructions: Lumbar Spinal Stenosis Discharge Orders/Prescriptions Prescriptions: New oxycodone 5 mg Tablet 5 mg PO Q4H PRN PRN (Reason: Pain Score 4-10) 3 Days Qty: 18 0RF amlodipine 10 mg Tablet 10 mg PO DAILY Qty: 30 1RF lidocaine 5 % Adhesive Patch,Medicated 2 patch topical DAILY Qty: 30 1RF Protocol: *Topical Application Instructions APPLICATION INSTRUCTIONS: lumbar spine tizanidine 2 mg Tablet 4 mg PO TID Qty: 30 0RF gabapentin 100 mg Capsule 100 mg PO TIDCM 30 Days Qty: 90 0RF Continued prednisone 10 mg tablet 10 mg PO DAILY leflunomide 10 mg tablet 10 mg PO DAILY metoprolol succinate 25 mg tablet extended release 24 hr 25 mg PO DAILY lisinopril 40 mg tablet 40 mg PO DAILY glipizide 5 mg tablet 5 mg PO DAILY Januvia 50 mg tablet 50 mg PO DAILY Eliquis 5 mg tablet 5 mg PO BID acetaminophen [Tylenol Extra Strength] 500 mg tablet 1,000 mg PO Q6H PRN (Reason: pain) ondansetron 4 mg tablet,disintegrating 4 mg PO Q6H PRN (Reason: nausea and vomiting) Qty: 20 0RF Discontinued oxycodone-acetaminophen [Endocet] 5-325 mg tablet 1 tab PO Q6H PRN (Reason: pain) 3 Days Qty: 12 0RF cyclobenzaprine 5 mg tablet 5 mg PO TID PRN (Reason: muscle spasm) Qty: 20 0RF Referrals / Follow Up: [Other, [facility]] - 09/18/25 10:00 am Referral Note: This appointment will be with Dr. Burgos's Woody Gomez MD [Med Staff - Active Staff, Pain Management] - Within 2 Weeks Referral Note: see to establish care for back pain Jaki Lin DO [Primary Care Provider, Internal Medicine] - 09/06/25 11:30 am Disposition Disposition (needs filled in before D/C Order can be placed): Home Health Service Charges/Coding Visit Charges Inpatient E&M: 96936 Disch Hosp >30min
--- NOTE | 2025-09-03 12:32 | CASEMGMT ---
Received acceptance by [facility]. TC to pt son, [place], left making aware that pt will be seen on Tuesday by [facility]. Left call back number should he have any further questions.
== END 2025-09-02 16:38 | disposition home health service (06) | DRG 552 ==
LOC: ED 17:29 → MS3 17:51
PROVIDERS: Internal Medicine; Admitting Provider Family Medicine; Emergency Provider Emergency Medicine; PCP Internal Medicine; Visit Provider Student in an Organized Health Care Education/Training Program
DX: M48.061 Spinal stenosis, lumbar region without neurogenic claudication (principal); D63.1 Anemia in chronic kidney disease; D69.6 Thrombocytopenia, unspecified; E11.22 Type 2 diabetes mellitus with diabetic chronic kidney disease; N18.30 Chronic kidney disease, stage 3 unspecified; M06.9 Rheumatoid arthritis, unspecified; I12.9 Hypertensive chronic kidney disease with stage 1 through stage 4 chronic kidney disease, or unspecified chronic kidney disease; Z95.3 Presence of xenogenic heart valve; I48.0 Paroxysmal atrial fibrillation; E87.5 Hyperkalemia; E78.5 Hyperlipidemia, unspecified; M43.16 Spondylolisthesis, lumbar region; M51.16 Intervertebral disc disorders with radiculopathy, lumbar region; I25.10 Atherosclerotic heart disease of native coronary artery without angina pectoris; M16.0 Bilateral primary osteoarthritis of hip; M51.362 Other intervertebral disc degeneration, lumbar region with discogenic back pain and lower extremity pain; G89.29 Other chronic pain; Z79.01 Long term (current) use of anticoagulants; Z79.84 Long term (current) use of oral hypoglycemic drugs; Z79.899 Other long term (current) drug therapy
CPT/HCPCS: 36415; 72131; 73502; 80048; 80053; 81001; 82962; 83735; 84100; 85025; 93971; 94668; 96361; 96374; 96375; 97116; 97162; 97166; 97530; 97535; 99283; 99285; A4216; J2405